=== PATIENT | male | born 1955 | race Caucasian/White ===

== ENCOUNTER 2017-10-20 19:31 | Inpatient (IN) | payer OTHER ==
--- NOTE | 2017-10-20 20:21 | ED ---
SOB HPI - General Chief Complaint: Shortness of Breath Stated Complaint: Shortness of Breath Time Seen by Provider: 10/20/17 20:07 Source: patient Mode of arrival: ambulatory Limitations: no limitations - History of Present Illness Initial Comments: This patient is a 62-year-old man who presents to be evaluated for worsening shortness of breath. The patient states that the symptoms came on starting proximally 4 days ago with a little bit of shortness of breath. He also has been having a little bit of cough with some yellowish sputum. He states that the breathing seems to be worse if he tries to sleep so over the past few nights he has been sleeping in a reclining chair more upright. Patient denies chest pain. He has not noticed swelling of the legs. No change in urination or bowel movements. MD Complaint: shortness of breath, cough Onset/Timin -: days(s) Consistency: constant Improves With: upright position Worsens With: lying flat Associated Symptoms: fever, cough Treatments Prior to Arrival: none - Related Data Home Medications Medication Instructions Recorded Confirmed ALPRAZolam [Xanax] 0.5 mg PO BID PRN 10/20/17 10/21/17 Carvedilol 25 mg PO BID 10/20/17 10/21/17 Citalopram Hydrobromide 20 mg PO DAILY 10/20/17 10/21/17 [Citalopram HBr] Enalapril [Vasotec] 10 mg PO DAILY 10/20/17 10/21/17 Furosemide [Lasix] 20 mg PO BID 10/20/17 10/21/17 Nitroglycerin Sl Tabs [Nitrostat] 0.4 mg SUBLINGUAL Q5M PRN 10/20/17 10/21/17 Simvastatin [Zocor] 10 mg PO HS 10/20/17 10/21/17 amLODIPine [Norvasc] 5 mg PO DAILY 10/20/17 10/21/17 glipiZIDE [Glucotrol] 5 mg PO AC-BRKFST 10/20/17 10/21/17 metFORMIN HCL [Glucophage] 500 mg PO DAILY 10/20/17 10/21/17 Allergies Allergy/AdvReac Type Severity Reaction Status Date / Time ciprofloxacin [From Cipro] Allergy Rash/Hives Verified 10/20/17 20:02 Review of Systems ROS Statement: Those systems with pertinent positive or pertinent negative responses have been documented in the HPI. ROS Other: All systems not noted in ROS Statement are negative. Constitutional: Reports: fever. Denies: chills, weakness Respiratory: Reports: cough, dyspnea. Denies: hemoptysis Cardiovascular: Reports: orthopnea. Denies: chest pain, palpitations, edema, syncope Gastrointestinal: Denies: abdominal pain, vomiting, diarrhea Genitourinary: Denies: dysuria, hematuria Musculoskeletal: Denies: back pain Skin: Denies: rash Neurological: Denies: headache, weakness, numbness Past Medical History Past Medical History: Coronary Artery Disease (CAD), Diabetes Mellitus, Hyperlipidemia, Hypertension, Myocardial Infarction ([place]) History of Any Multi-Drug Resistant Organisms: None Reported Past Surgical History: Heart Catheterization With Stent, Orthopedic Surgery Past Psychological History: Anxiety Smoking Status: Never smoker Past Alcohol Use History: Occasional Past Drug Use History: None Reported - Past Family History family Additional Family Medical History / Comment(s): Mother with history of diabetes mellitus and CAD, father with history of heart disease and diabetes General Exam Limitations: no limitations General appearance: alert, in no apparent distress Head exam: Present: atraumatic, normocephalic Eye exam: Present: normal appearance. Absent: scleral icterus, conjunctival injection ENT exam: Present: normal oropharynx Neck exam: Present: normal inspection Respiratory exam: Present: rales (Bilateral bases). Absent: respiratory distress, wheezes, rhonchi, stridor, accessory muscle use, decreased breath sounds, prolonged expiratory Cardiovascular Exam: Present: regular rate, normal rhythm, normal heart sounds. Absent: systolic murmur, diastolic murmur, rubs, gallop GI/Abdominal exam: Present: soft. Absent: distended, tenderness, guarding, rebound, rigid, mass Extremities exam: Present: normal inspection, normal capillary refill. Absent: pedal edema, calf tenderness Back exam: Present: normal inspection. Absent: CVA tenderness (R), CVA tenderness (L) Neurological exam: Present: alert Skin exam: Present: warm, dry, intact, normal color. Absent: rash Course Vital Signs 10/20/17 10/20/17 10/20/17 19:57 21:02 21:35 Temperature 102.7 F H Pulse Rate 96 60 Respiratory 26 H 16 Rate Blood Pressure 131/69 120/61 O2 Sat by Pulse 89 L 93 L 94 L Oximetry 10/20/17 10/20/17 10/20/17 21:39 23:10 23:27 Temperature 101.5 F H 99 F Pulse Rate 83 72 Respiratory 18 18 Rate Blood Pressure 113/83 113/81 O2 Sat by Pulse 94 L 93 L Oximetry Medical Decision Making - Lab Data Result diagrams: 10/21/17 04:19 10/21/17 04:19 Lab Results 10/20/17 10/20/17 10/20/17 Range/Units 20:06 20:06 20:06 WBC 7.9 (3.8-10.6) k/uL RBC 3.85 L (4.30-5.90) m/uL Hgb 12.3 L (13.0-17.5) gm/dL Hct 34.4 L (39.0-53.0) % MCV 89.5 (80.0-100.0) fL MCH 31.9 (25.0-35.0) pg MCHC 35.6 (31.0-37.0) g/dL RDW 14.4 (11.5-15.5) % Plt Count 174 (150-450) k/uL Neutrophils % 88 % Lymphocytes % 6 % Monocytes % 4 % Eosinophils % 2 % Basophils % 0 % Neutrophils # 6.9 (1.3-7.7) k/uL Lymphocytes # 0.5 L (1.0-4.8) k/uL Monocytes # 0.3 (0-1.0) k/uL Eosinophils # 0.1 (0-0.7) k/uL Basophils # 0.0 (0-0.2) k/uL PT (9.0-12.0) sec INR (<1.2) APTT (22.0-30.0) sec Sodium 136 L (137-145) mmol/L Potassium 4.5 (3.5-5.1) mmol/L Chloride 98 (98-107) mmol/L Carbon Dioxide 25 (22-30) mmol/L Anion Gap 13 mmol/L BUN 23 H (9-20) mg/dL Creatinine 1.00 (0.66-1.25) mg/dL Est GFR (CKD-EPI)AfAm >90 (>60 ml/min/1.73 sqM) Est GFR (CKD-EPI)NonAf 79 (>60 ml/min/1.73 sqM) Glucose 285 H (74-99) mg/dL Plasma Lactic Acid Dwain (0.7-2.0) mmol/L Calcium 9.2 (8.4-10.2) mg/dL Total Bilirubin 1.5 H (0.2-1.3) mg/dL AST 20 (17-59) U/L ALT 36 (21-72) U/L Alkaline Phosphatase 43 (38-126) U/L Total Creatine Kinase 32 L (55-170) U/L CK-MB (CK-2) 0.6 (0.0-2.4) ng/mL CK-MB (CK-2) Rel Index 1.9 Troponin I 0.037 H* (0.000-0.034) ng/mL NT-Pro-B Natriuret Pep pg/mL Total Protein 6.8 (6.3-8.2) g/dL Albumin 4.1 (3.5-5.0) g/dL Urine Color Urine Appearance (Clear) Urine pH (5.0-8.0) Ur Specific [place] (1.001-1.035) Urine Protein (Negative) Urine Glucose (UA) (Negative) Urine Ketones (Negative) Urine Blood (Negative) Urine Nitrite (Negative) Urine Bilirubin (Negative) Urine Urobilinogen (<2.0) mg/dL Ur Leukocyte Esterase (Negative) Urine RBC (0-5) /hpf Urine WBC (0-5) /hpf 10/20/17 10/20/17 10/20/17 Range/Units 20:06 20:06 20:06 WBC (3.8-10.6) k/uL RBC (4.30-5.90) m/uL Hgb (13.0-17.5) gm/dL Hct (39.0-53.0) % MCV (80.0-100.0) fL MCH (25.0-35.0) pg MCHC (31.0-37.0) g/dL RDW (11.5-15.5) % Plt Count (150-450) k/uL Neutrophils % % Lymphocytes % % Monocytes % % Eosinophils % % Basophils % % Neutrophils # (1.3-7.7) k/uL Lymphocytes # (1.0-4.8) k/uL Monocytes # (0-1.0) k/uL Eosinophils # (0-0.7) k/uL Basophils # (0-0.2) k/uL PT 9.8 (9.0-12.0) sec INR 1.0 (<1.2) APTT 23.7 (22.0-30.0) sec Sodium (137-145) mmol/L Potassium (3.5-5.1) mmol/L Chloride (98-107) mmol/L Carbon Dioxide (22-30) mmol/L Anion Gap mmol/L BUN (9-20) mg/dL Creatinine (0.66-1.25) mg/dL Est GFR (CKD-EPI)AfAm (>60 ml/min/1.73 sqM) Est GFR (CKD-EPI)NonAf (>60 ml/min/1.73 sqM) Glucose (74-99) mg/dL Plasma Lactic Acid Dwain 1.1 (0.7-2.0) mmol/L Calcium (8.4-10.2) mg/dL Total Bilirubin (0.2-1.3) mg/dL AST (17-59) U/L ALT (21-72) U/L Alkaline Phosphatase (38-126) U/L Total Creatine Kinase (55-170) U/L CK-MB (CK-2) (0.0-2.4) ng/mL CK-MB (CK-2) Rel Index Troponin I (0.000-0.034) ng/mL NT-Pro-B Natriuret Pep 4870 pg/mL Total Protein (6.3-8.2) g/dL Albumin (3.5-5.0) g/dL Urine Color Urine Appearance (Clear) Urine pH (5.0-8.0) Ur Specific [place] (1.001-1.035) Urine Protein (Negative) Urine Glucose (UA) (Negative) Urine Ketones (Negative) Urine Blood (Negative) Urine Nitrite (Negative) Urine Bilirubin (Negative) Urine Urobilinogen (<2.0) mg/dL Ur Leukocyte Esterase (Negative) Urine RBC (0-5) /hpf Urine WBC (0-5) /hpf //18 Range/Units 21:30 WBC (3.8-10.6) k/uL RBC (4.30-5.90) m/uL Hgb (13.0-17.5) gm/dL Hct (39.0-53.0) % MCV (80.0-100.0) fL MCH (25.0-35.0) pg MCHC (31.0-37.0) g/dL RDW (11.5-15.5) % Plt Count (150-450) k/uL Neutrophils % % Lymphocytes % % Monocytes % % Eosinophils % % Basophils % % Neutrophils # (1.3-7.7) k/uL Lymphocytes # (1.0-4.8) k/uL Monocytes # (0-1.0) k/uL Eosinophils # (0-0.7) k/uL Basophils # (0-0.2) k/uL PT (9.0-12.0) sec INR (<1.2) APTT (22.0-30.0) sec Sodium (137-145) mmol/L Potassium (3.5-5.1) mmol/L Chloride (98-107) mmol/L Carbon Dioxide (22-30) mmol/L Anion Gap mmol/L BUN (9-20) mg/dL Creatinine (0.66-1.25) mg/dL Est GFR (CKD-EPI)AfAm (>60 ml/min/1.73 sqM) Est GFR (CKD-EPI)NonAf (>60 ml/min/1.73 sqM) Glucose (74-99) mg/dL Plasma Lactic Acid Dwain (0.7-2.0) mmol/L Calcium (8.4-10.2) mg/dL Total Bilirubin (0.2-1.3) mg/dL AST (17-59) U/L ALT (21-72) U/L Alkaline Phosphatase (38-126) U/L Total Creatine Kinase (55-170) U/L CK-MB (CK-2) (0.0-2.4) ng/mL CK-MB (CK-2) Rel Index Troponin I (0.000-0.034) ng/mL NT-Pro-B Natriuret Pep pg/mL Total Protein (6.3-8.2) g/dL Albumin (3.5-5.0) g/dL Urine Color Yellow Urine Appearance Clear (Clear) Urine pH 5.5 (5.0-8.0) Ur Specific [place] 1.019 (1.001-1.035) Urine Protein 2+ H (Negative) Urine Glucose (UA) 4+ H (Negative) Urine Ketones 1+ H (Negative) Urine Blood Trace H (Negative) Urine Nitrite Negative (Negative) Urine Bilirubin Negative (Negative) Urine Urobilinogen <2.0 (<2.0) mg/dL Ur Leukocyte Esterase Negative (Negative) Urine RBC <1 (0-5) /hpf Urine WBC 1 (0-5) /hpf - EKG Data -: EKG Interpreted by Vt EKG shows normal: sinus rhythm (Sinus rhythm with occasional PVC), axis (Left axis deviation), intervals (The AL interval is 226 ms, prolonged consistent with a first-degree AV block. The QRS duration is 162 ms, consistent with intraventricular conduction block.), QRS complexes (Nonspecific intraventricular block), ST-T waves (Normal) Rate: normal (Rate approximate 98 bpm) Disposition Clinical Impression: Congestive heart failure, Chest pain, Dyspnea, Hyperglycemia, Elevated troponin Disposition: ADMITTED IP TO THIS HOSP Condition: Fair Is patient prescribed a controlled substance at d/c from ED?: No
[2017-10-20 20:28] LABS: Basophils % (A) 0 %; Eosinophils # (A) 0.1 k/uL (0-0.7); Eosinophils % (A) 2 %; HCT 34.4 % (39.0-53.0); HGB 12.3 gm/dL (13.0-17.5); Lymphocytes # (A) 0.5 k/uL (1.0-4.8); Lymphocytes % (A) 6 %; MCH 31.9 pg (25.0-35.0); MCHC 35.6 g/dL (31.0-37.0); MCV 89.5 fL (80.0-100.0); Mean Platelet Volume 8.2; Monocytes # (A) 0.3 k/uL (0-1.0); Monocytes % (A) 4 %; Neutrophils # (A) 6.9 k/uL (1.3-7.7); Neutrophils % (A) 88 %; Platelet Count 174 k/uL (150-450); RBC 3.85 m/uL (4.30-5.90); RDW 14.4 % (11.5-15.5); WBC 7.9 k/uL (3.8-10.6)
[2017-10-20 20:37] LABS: ALT 36 U/L (21-72); AST 20 U/L (17-59); Albumin 4.1 g/dL (3.5-5.0); Alkaline Phosphatase 43 U/L (38-126); Anion Gap 13 mmol/L; Blood Urea Nitrogen 23 mg/dL (9-20); Calcium 9.2 mg/dL (8.4-10.2); Carbon Dioxide 25 mmol/L (22-30); Chloride 98 mmol/L (98-107); Glucose 285 mg/dL (74-99); Partial Thromboplastin Time 23.7 sec (22.0-30.0); Potassium 4.5 mmol/L (3.5-5.1); Prothrombin Time 9.8 sec (9.0-12.0); Sodium 136 mmol/L (137-145); Total Bilirubin 1.5 mg/dL (0.2-1.3); Total Protein 6.8 g/dL (6.3-8.2)
--- NOTE | 2017-10-20 20:38 | XR ---
EXAMINATION TYPE: XR chest 1V portable DATE OF EXAM: 10/20/2017 COMPARISON: NONE HISTORY: Short of breath and fever TECHNIQUE: Single frontal view of the chest is obtained. FINDINGS: Heart appears enlarged. There is no heart failure. Lungs are clear of consolidation. There are chest leads. IMPRESSION: There is probably cardiomegaly. No acute lung disease.
[2017-10-20] MEDS ORDERED: ACETAMINOPHEN TAB 325 MG TAB PO STA (20:48)
[2017-10-20] MEDS ORDERED: IBUPROFEN 400 MG TAB PO STA (20:48)
[2017-10-20] MEDS ORDERED: AZITHROMYCIN 500 MG TAB PO STA (20:50)
[2017-10-20] MEDS ORDERED: cefTRIAXone IN SWFI 1,000 MG/10 ML SYRINGE IVP STA (20:54)
[2017-10-20 21:23] LABS: Creatine Kinase MB 0.6 ng/mL (0.0-2.4)
[2017-10-20 21:25] LABS: Troponin I 0.037 ng/mL (0.000-0.034)
[2017-10-20 21:46] LABS: Appearance,Urine Clear (Clear); Bilirubin,Urine Negative (Negative); Blood,Urine Trace (Negative); Color,Urine Yellow; Glucose,Urine (UA) 4+ (Negative); Ketones,Urine 1+ (Negative); Leukocyte Esterase,Urine Negative (Negative); Nitrite,Urine Negative (Negative); PH, Urine 5.5 (5.0-8.0); Protein,Urine 2+ (Negative); RBC,Urine <1 /hpf (0-5); Specific Gravity,Urine 1.019 (1.001-1.035); Urobilinogen,Urine <2.0 mg/dL (<2.0); WBC,Urine 1 /hpf (0-5)
[2017-10-21] MEDS ORDERED: NITROGLYCERIN SL TABS 0.4 MG TAB SUBLINGUAL PRN (01:52)
[2017-10-21] MEDS ORDERED: NALOXONE 0.4 MG/ML 1 ML VIAL IV PRN (01:58)
[2017-10-21] MEDS ORDERED: ALPRAZolam 0.25 MG TAB PO PRN (01:58)
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
[2017-10-21 04:39] LABS: Basophils % (A) 0 %; Eosinophils # (A) 0.1 k/uL (0-0.7); Eosinophils % (A) 3 %; HCT 34.2 % (39.0-53.0); HGB 11.7 gm/dL (13.0-17.5); Lymphocytes # (A) 0.8 k/uL (1.0-4.8); Lymphocytes % (A) 18 %; MCH 30.6 pg (25.0-35.0); MCHC 34.1 g/dL (31.0-37.0); MCV 89.8 fL (80.0-100.0); Mean Platelet Volume 7.8; Monocytes # (A) 0.2 k/uL (0-1.0); Monocytes % (A) 5 %; Neutrophils # (A) 3.1 k/uL (1.3-7.7); Neutrophils % (A) 73 %; Platelet Count 144 k/uL (150-450); RBC 3.81 m/uL (4.30-5.90); RDW 14.2 % (11.5-15.5); WBC 4.2 k/uL (3.8-10.6)
[2017-10-21 04:49] LABS: Albumin 3.6 g/dL (3.5-5.0); Calcium 8.6 mg/dL (8.4-10.2); Potassium 4.4 mmol/L (3.5-5.1); Total Bilirubin 0.9 mg/dL (0.2-1.3)
[2017-10-21 05:27] LABS: Troponin I 0.047 ng/mL (0.000-0.034)
[2017-10-21] MEDS: SODIUM CHLORIDE 0.9% 1,000 ML IV SCH (05:30)
[2017-10-21 06:08] LABS: Glucose,Whole Blood 371 mg/dL (75-99)
[2017-10-21] MEDS: CARVEDILOL 12.5 MG TAB PO SCH ×2 (06:16→17:05)
[2017-10-21] MEDS: INSULIN ASPART 100 UNIT/ML 1 ML 10 ML VIAL SQ SCH ×4 (06:16→22:25)
[2017-10-21] MEDS: HEPARIN SODIUM,PORCINE 5,000 UNIT/ML 1 ML VIAL SQ SCH ×2 (07:59→17:05)
[2017-10-21] MEDS: amLODIPine 5 MG TAB PO SCH (07:59)
[2017-10-21] MEDS: CITALOPRAM HYDROBROMIDE 20 MG TAB PO SCH ×2 (07:59→22:25)
[2017-10-21] MEDS: ASPIRIN 81 MG PO SCH (07:59)
[2017-10-21] MEDS: LISINOPRIL 20 MG TAB PO SCH (07:59)
[2017-10-21] MEDS ORDERED: FUROSEMIDE 40 MG TAB PO SCH (09:00)
[2017-10-21] MEDS ORDERED: FUROSEMIDE 10 MG/ML 4 ML VIAL IV SCH (09:00)
--- NOTE | 2017-10-21 09:50 | P.CRDCN ---
History of Present Illness History of present illness: Patient interviewed and examined. Patient was admitted with fever and a mild cough. He has known cardiac myopathy with chronic heart failure. I don't see any clinical evidence for exacerbation of CHF. This gentleman does not have acute exacerbation of CHF. Elevated BNP could be a chronic finding. Borderline troponins were noted. He has no chest discomfort or dizziness shortness of breath He states he is able to walk 1 flight of stairs comfortably He is being treated with IV antibiotics at this time Impression Known coronary artery disease status post stenting in the past Known cardiac myopathy patient has refused ICD implantation. This was well documented in Dr. Chester's note from the office when he saw him last in. At that time here stress test which did not show any evidence of ischemia Ischemic cardio myopathy, chronic congestive heart failure without acute exacerbation Suggest Maximize congestive heart failure medications and medications for atherosclerosis Lipid panel Patient still refuses and ICD implant He also wants to follow up with his physicians in [place] since he is leaving in a few weeks He follows with child psychometrist and internal medicine physician in [place] and comes to [place] every year Please see full dictation by nurse practitioner Past Medical History Past Medical History: Coronary Artery Disease (CAD), Diabetes Mellitus, Hyperlipidemia, Hypertension, Myocardial Infarction ([place]) Last Myocardial Infarction Date:: May 18, 2003 History of Any Multi-Drug Resistant Organisms: None Reported Past Surgical History: Heart Catheterization With Stent, Orthopedic Surgery Date of Last Stent Placement:: 2012 Past Psychological History: Anxiety Smoking Status: Never smoker Past Alcohol Use History: Occasional Past Drug Use History: None Reported - Past Family History family Additional Family Medical History / Comment(s): Mother with history of diabetes mellitus and CAD, father with history of heart disease and diabetes Medications and Allergies Home Medications Medication Instructions Recorded Confirmed Type ALPRAZolam [Xanax] 0.5 mg PO BID PRN 10/20/17 10/21/17 History Carvedilol 25 mg PO BID 10/20/17 10/21/17 History Citalopram Hydrobromide 20 mg PO DAILY 10/20/17 10/21/17 History [Citalopram HBr] Enalapril [Vasotec] 10 mg PO DAILY 10/20/17 10/21/17 History Furosemide [Lasix] 20 mg PO BID 10/20/17 10/21/17 History Nitroglycerin Sl Tabs [Nitrostat] 0.4 mg SUBLINGUAL Q5M PRN 10/20/17 10/21/17 History Simvastatin [Zocor] 10 mg PO HS 10/20/17 10/21/17 History amLODIPine [Norvasc] 5 mg PO DAILY 10/20/17 10/21/17 History glipiZIDE [Glucotrol] 5 mg PO AC-BRKFST 10/20/17 10/21/17 History metFORMIN HCL [Glucophage] 500 mg PO DAILY 10/20/17 10/21/17 History Allergies Allergy/AdvReac Type Severity Reaction Status Date / Time ciprofloxacin [From Cipro] Allergy Rash/Hives Verified 10/20/17 20:02 Physical Exam Vitals: Vital Signs Temp Pulse Pulse Resp BP BP Pulse Ox 10/21/17 07:40 68 16 10/21/17 07:39 97.7 F 68 16 111/60 96 10/21/17 04:00 66 20 116/66 92 L 10/21/17 00:00 71 16 10/20/17 23:54 98 F 71 16 116/63 94 L 10/20/17 23:27 72 18 113/81 93 L 10/20/17 23:10 99 F 83 18 113/83 94 L 10/20/17 21:39 101.5 F H 10/20/17 21:35 94 L 10/20/17 21:02 60 16 120/61 93 L 10/20/17 19:57 102.7 F H 96 26 H 131/69 89 L Intake and Output 10/20/17 10/21/17 10/21/17 22:59 06:59 14:59 Intake Total 480 240 Balance 480 240 Intake: Intake, IV Titration 80 Amount Sodium Chloride 0.9% 1, 80 000 ml @ 20 mls/hr IV . Q24H [facility] Rx#:[id number] Oral 400 240 Other: Weight 99.79 kg 101.3 kg Results 10/21/17 04:19 10/21/17 04:19 Cardiac Enzymes 10/20/17 10/20/17 10/21/17 Range/Units 20:06 20:06 04:19 AST 20 (17-59) U/L CK-MB (CK-2) 0.6 1.0 (0.0-2.4) ng/mL Troponin I 0.037 H* 0.047 H* (0.000-0.034) ng/mL 10/21/17 Range/Units 04:19 AST 17 (17-59) U/L CK-MB (CK-2) (0.0-2.4) ng/mL Troponin I (0.000-0.034) ng/mL Coagulation 10/20/17 Range/Units 20:06 PT 9.8 (9.0-12.0) sec APTT 23.7 (22.0-30.0) sec Lipids 10/21/17 Range/Units 04:19 Triglycerides 240 H (<150) mg/dL Cholesterol 110 (<200) mg/dL HDL Cholesterol 23 L (40-60) mg/dL CBC 10/20/17 10/21/17 Range/Units 20:06 04:19 WBC 7.9 4.2 (3.8-10.6) k/uL RBC 3.85 L 3.81 L (4.30-5.90) m/uL Hgb 12.3 L 11.7 L (13.0-17.5) gm/dL Hct 34.4 L 34.2 L (39.0-53.0) % Plt Count 174 144 L (150-450) k/uL Comprehensive Metabolic Panel 10/20/17 10/21/17 Range/Units 20:06 04:19 Sodium 136 L 136 L (137-145) mmol/L Potassium 4.5 4.4 (3.5-5.1) mmol/L Chloride 98 99 (98-107) mmol/L Carbon Dioxide 25 26 (22-30) mmol/L BUN 23 H 28 H (9-20) mg/dL Creatinine 1.00 1.30 H (0.66-1.25) mg/dL Glucose 285 H 345 H (74-99) mg/dL Calcium 9.2 8.6 (8.4-10.2) mg/dL AST 20 17 (17-59) U/L ALT 36 31 (21-72) U/L Alkaline Phosphatase 43 38 (38-126) U/L Total Protein 6.8 6.0 L (6.3-8.2) g/dL Albumin 4.1 3.6 (3.5-5.0) g/dL Current Medications Generic Name Dose Route Start Last Admin Trade Name Freq PRN Reason Stop Dose Admin Alprazolam 0.25 mg 10/21/17 01:58 Xanax PO Q6HR PRN Anxiety Amlodipine Besylate 5 mg 10/21/17 09:00 10/21/17 07:59 Norvasc PO 5 mg DAILY VAN Administration Aspirin 81 mg 10/21/17 09:00 10/21/17 07:59 Aspirin PO 81 mg DAILY VAN Administration Atorvastatin Calcium 40 mg 10/21/17 21:00 Lipitor PO HS VAN Carvedilol 25 mg 10/21/17 07:30 10/21/17 06:16 Coreg PO 25 mg AC-BID VAN Administration Citalopram Hydrobromide 20 mg 10/21/17 09:00 10/21/17 07:59 Celexa PO 20 mg BID VAN Administration Heparin Sodium (Porcine) 5,000 unit 10/21/17 08:00 10/21/17 07:59 Heparin SQ 5,000 unit Q8HR VAN Administration Sodium Chloride 1,000 mls @ 20 mls/hr 10/20/17 22:30 10/21/17 05:30 Saline 0.9% IV 20 mls/hr .Q24H VAN Administration Insulin Aspart 0 unit 10/21/17 07:30 10/21/17 06:16 Novolog SQ 7 unit ACHS VAN Administration Protocol Lisinopril 20 mg 10/21/17 09:00 10/21/17 07:59 Zestril PO 20 mg DAILY VAN Administration Naloxone HCl 0.2 mg 10/21/17 01:58 Narcan IV Q2M PRN Opioid Reversal Nitroglycerin 0.4 mg 10/21/17 01:52 Nitrostat SUBLINGUAL Q5M PRN Chest Pain Spironolactone 25 mg 10/21/17 09:30 Aldactone PO DAILY VAN Intake and Output 10/20/17 10/21/17 10/21/17 22:59 06:59 14:59 Intake Total 480 240 Balance 480 240 Intake: Intake, IV Titration 80 Amount Sodium Chloride 0.9% 1, 80 000 ml @ 20 mls/hr IV . Q24H [facility] Rx#:[id number] Oral 400 240 Other: Weight 99.79 kg 101.3 kg 10/21/17 04:19 10/21/17 04:19
--- NOTE | 2017-10-21 10:07 | P.CRDCN ---
History of Present Illness Consult date: 10/21/17 Requesting physician: Randolph Avendano Consult reason: congestive heart failure Chief complaint: Fever and chills, cough, mild shortness of breath History of present illness: This is a 62-year-old gentleman with known history of prior myocardial infarction and prior stent placements, ischemic cardiomyopathy, hypertension, diabetes, hyperlipidemia, he has seen Dr. 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 Patient has known severe cardiomyopathy and has been advised to have AICD in the past, however he has refused. He presents to the hospital on this occasion with symptoms of fever, cough, chills, and mild shortness of breath. His EKG on arrival here showed a normal sinus rhythm with first-degree AV block, left axis deviation, and bundle-branch block pattern. Chest x-ray did not reveal any acute lung disease. Temperature on arrival 102.7 , blood pressure 130/60, 89% on room air. White blood cell count on admission 7.9, 4.2 this morning. Hemoglobin 11.7, platelet count 144. Sodium 136, potassium 4.4, BUN 23 creatinine 1.0 on admission, 28 and 1.3 this morning. BNP level 4870, troponins 0.037, 0.047. Patient was initiated on IV Lasix in the emergency room, diuresed well from this. At the time of our examination this morning, patient denies any shortness of breath, no PND or orthopnea, does have a mild cough. Temperature 97.7 this morning, blood pressure 110/60, heart rate in the 60s. Past Medical History Past Medical History: Coronary Artery Disease (CAD), Diabetes Mellitus, Hyperlipidemia, Hypertension, Myocardial Infarction ([place]) Last Myocardial Infarction Date:: May 18, 2003 History of Any Multi-Drug Resistant Organisms: None Reported Past Surgical History: Heart Catheterization With Stent, Orthopedic Surgery Date of Last Stent Placement:: 2012 Past Psychological History: Anxiety Smoking Status: Never smoker Past Alcohol Use History: Occasional Past Drug Use History: None Reported - Past Family History family Additional Family Medical History / Comment(s): Mother with history of diabetes mellitus and CAD, father with history of heart disease and diabetes Medications and Allergies Home Medications Medication Instructions Recorded Confirmed Type ALPRAZolam [Xanax] 0.5 mg PO BID PRN 10/20/17 10/21/17 History Carvedilol 25 mg PO BID 10/20/17 10/21/17 History Citalopram Hydrobromide 20 mg PO DAILY 10/20/17 10/21/17 History [Citalopram HBr] Enalapril [Vasotec] 10 mg PO DAILY 10/20/17 10/21/17 History Furosemide [Lasix] 20 mg PO BID 10/20/17 10/21/17 History Nitroglycerin Sl Tabs [Nitrostat] 0.4 mg SUBLINGUAL Q5M PRN 10/20/17 10/21/17 History Simvastatin [Zocor] 10 mg PO HS 10/20/17 10/21/17 History amLODIPine [Norvasc] 5 mg PO DAILY 10/20/17 10/21/17 History glipiZIDE [Glucotrol] 5 mg PO AC-BRKFST 10/20/17 10/21/17 History metFORMIN HCL [Glucophage] 500 mg PO DAILY 10/20/17 10/21/17 History Allergies Allergy/AdvReac Type Severity Reaction Status Date / Time ciprofloxacin [From Cipro] Allergy Rash/Hives Verified 10/20/17 20:02 Physical Exam Vitals: Vital Signs Temp Pulse Pulse Resp BP BP Pulse Ox 10/21/17 07:40 68 16 10/21/17 07:39 97.7 F 68 16 111/60 96 10/21/17 04:00 66 20 116/66 92 L 10/21/17 00:00 71 16 10/20/17 23:54 98 F 71 16 116/63 94 L 10/20/17 23:27 72 18 113/81 93 L 10/20/17 23:10 99 F 83 18 113/83 94 L 10/20/17 21:39 101.5 F H 10/20/17 21:35 94 L 10/20/17 21:02 60 16 120/61 93 L 10/20/17 19:57 102.7 F H 96 26 H 131/69 89 L Intake and Output 10/20/17 10/21/17 10/21/17 22:59 06:59 14:59 Intake Total 480 240 Balance 480 240 Intake: Intake, IV Titration 80 Amount Sodium Chloride 0.9% 1, 80 000 ml @ 20 mls/hr IV . Q24H [facility] Rx#:[id number] Oral 400 240 Other: Weight 99.79 kg 101.3 kg PHYSICAL EXAMINATION: GENERAL: 62-year-old gentleman in no apparent distress at the time of my examination. HEENT: Head is atraumatic, normocephalic. Pupils equal, round. Sclera anicteric. Conjunctiva are clear. Mucous membranes of the mouth are moist. Neck is supple. There is no elevated jugular venous pressure.] bruit is heard. HEART EXAMINATION: Heart S1, S2 normal. No murmur or gallop heard. CHEST EXAMINATION: His reveal crackles to bilateral bases. ABDOMEN: Soft, nontender. Bowel sounds are heard. No organomegaly noted. EXTREMITIES: 2+ peripheral pulses with no evidence of peripheral edema and no calf tenderness noted. NEUROLOGIC patient is awake, alert and oriented -3. . Results 10/21/17 04:19 10/21/17 04:19 Cardiac Enzymes 10/20/17 10/20/17 10/21/17 Range/Units 20:06 20:06 04:19 AST 20 (17-59) U/L CK-MB (CK-2) 0.6 1.0 (0.0-2.4) ng/mL Troponin I 0.037 H* 0.047 H* (0.000-0.034) ng/mL 10/21/17 Range/Units 04:19 AST 17 (17-59) U/L CK-MB (CK-2) (0.0-2.4) ng/mL Troponin I (0.000-0.034) ng/mL Coagulation 10/20/17 Range/Units 20:06 PT 9.8 (9.0-12.0) sec APTT 23.7 (22.0-30.0) sec Lipids 10/21/17 Range/Units 04:19 Triglycerides 240 H (<150) mg/dL Cholesterol 110 (<200) mg/dL HDL Cholesterol 23 L (40-60) mg/dL CBC 10/20/17 10/21/17 Range/Units 20:06 04:19 WBC 7.9 4.2 (3.8-10.6) k/uL RBC 3.85 L 3.81 L (4.30-5.90) m/uL Hgb 12.3 L 11.7 L (13.0-17.5) gm/dL Hct 34.4 L 34.2 L (39.0-53.0) % Plt Count 174 144 L (150-450) k/uL Comprehensive Metabolic Panel 10/20/17 10/21/17 Range/Units 20:06 04:19 Sodium 136 L 136 L (137-145) mmol/L Potassium 4.5 4.4 (3.5-5.1) mmol/L Chloride 98 99 (98-107) mmol/L Carbon Dioxide 25 26 (22-30) mmol/L BUN 23 H 28 H (9-20) mg/dL Creatinine 1.00 1.30 H (0.66-1.25) mg/dL Glucose 285 H 345 H (74-99) mg/dL Calcium 9.2 8.6 (8.4-10.2) mg/dL AST 20 17 (17-59) U/L ALT 36 31 (21-72) U/L Alkaline Phosphatase 43 38 (38-126) U/L Total Protein 6.8 6.0 L (6.3-8.2) g/dL Albumin 4.1 3.6 (3.5-5.0) g/dL Current Medications Generic Name Dose Route Start Last Admin Trade Name Freq PRN Reason Stop Dose Admin Alprazolam 0.25 mg 10/21/17 01:58 Xanax PO Q6HR PRN Anxiety Amlodipine Besylate 5 mg 10/21/17 09:00 10/21/17 07:59 Norvasc PO 5 mg DAILY VAN Administration Aspirin 81 mg 10/21/17 09:00 10/21/17 07:59 Aspirin PO 81 mg DAILY VAN Administration Atorvastatin Calcium 40 mg 10/21/17 21:00 Lipitor PO HS VAN Carvedilol 25 mg 10/21/17 07:30 10/21/17 06:16 Coreg PO 25 mg AC-BID VAN Administration Citalopram Hydrobromide 20 mg 10/21/17 09:00 10/21/17 07:59 Celexa PO 20 mg BID VAN Administration Heparin Sodium (Porcine) 5,000 unit 10/21/17 08:00 10/21/17 07:59 Heparin SQ 5,000 unit Q8HR VAN Administration Sodium Chloride 1,000 mls @ 20 mls/hr 10/20/17 22:30 10/21/17 05:30 Saline 0.9% IV 20 mls/hr .Q24H VAN Administration Insulin Aspart 0 unit 10/21/17 07:30 10/21/17 06:16 Novolog SQ 7 unit ACHS VAN Administration Protocol Lisinopril 20 mg 10/21/17 09:00 10/21/17 07:59 Zestril PO 20 mg DAILY VAN Administration Naloxone HCl 0.2 mg 10/21/17 01:58 Narcan IV Q2M PRN Opioid Reversal Nitroglycerin 0.4 mg 10/21/17 01:52 Nitrostat SUBLINGUAL Q5M PRN Chest Pain Spironolactone 25 mg 10/21/17 09:30 Aldactone PO DAILY VAN Intake and Output 10/20/17 10/21/17 10/21/17 22:59 06:59 14:59 Intake Total 480 240 Balance 480 240 Intake: Intake, IV Titration 80 Amount Sodium Chloride 0.9% 1, 80 000 ml @ 20 mls/hr IV . Q24H [facility] Rx#:[id number] Oral 400 240 Other: Weight 99.79 kg 101.3 kg 10/21/17 04:19 10/21/17 04:19 EKG Interpretations (text) EKG shows a normal sinus rhythm with first-degree AV block, left axis deviation Assessment and Plan Plan: Assessment and plan #1 fever and chills with associated cough, temperature 102 on arrival, sepsis workup in progress. #2 mild shortness of breath, no evidence of congestive heart failure. Chest x- ray does not reveal congestive heart failure. BNP level is mildly elevated which may be normal for this patient with known severe ischemic cardiomyopathy #3 history of myocardial infarction with prior stent placements #4 diabetes # 5 hypertension #6 hyperlipidemia #7 ischemic cardiomyopathy with documented ejection fraction of less than 20%. Patient has been advised in the past to undergo implantation of AICD but has refused. A lengthy discussion was made again this morning regarding the importance of implant of AICD for prevention of sudden cardiac , patient states he will think about it and consider it when he moves back out of state. He does not wish to have the procedures done at this time. #8 chronic systolic congestive heart failure without acute exacerbation Plan We will maximize congestive heart failure medications and medications for atherosclerosis. Add Aldactone to the patient's medication regime. Discontinue IV Lasix. Obtain lipid panel. Patient still refuses at this time to have AICD implant. He will follow-up with his physicians in [place] on discharge from here. DNP note has been reviewed, I agree with a documented findings and plan of care. Patient was seen and examined.
--- NOTE | 2017-10-21 10:40 | ECHOF ---
Referral Reason:CHF MEASUREMENTS -------- HEIGHT: 180.3 cm WEIGHT: 99.8 kg BP: 116/66 RVIDd: 3.8 cm (< 3.3) IVSd: 1.0 cm (0.6 - 1.1) LVIDd: 5.5 cm (3.9 - 5.3) LVPWd: 1.1 cm (0.6 - 1.1) IVSs: 1.7 cm LVIDs: 4.9 cm LVPWs: 1.3 cm LAESV Index (A-L): 49.22 ml/m Ao Diam: 3.3 cm (2.0 - 3.7) AV Cusp: 2.0 cm (1.5 - 2.6) LA Diam: 4.5 cm (2.7 - 3.8) MV EXCURSION: 13.666 mm (> 18.000) MV EF SLOPE: 151 mm/s (70 - 150) EPSS: 1.8 cm MV E Willard: 1.06 m/s MV DecT: 215 ms MV A Willard: 0.26 m/s MV E/A Ratio: 4.05 RAP: 5.00 mmHg RVSP: 17.16 mmHg FINDINGS -------- Sinus rhythm. This was a technically good study. The left ventricular size is normal. Left ventricular wall thickness is normal. There is severe g lobal hypokinesis of LV . Overall left ventricular systolic function is severely impaired with, an EF between 20 - 25 %. The right ventricle is normal in size and function. LA is severely dilated >40 ml/m2 The right atrium is normal in size. Aortic valve is trileaflet and is mildly thickened. The mitral valve leaflets are mildly thickened. Mild mitral annular calcification present. Modera te mitral regurgitation is present. Mild tricuspid regurgitation present. The right ventricular systolic pressure, as measured by Doppl er, is 17.16mmHg. Pulmonic valve appears structurally normal. The aortic root size is normal. Normal inferior vena cava with normal inspiratory collapse consistent with estimated right atrial pre ssure of 5 mmHg. The pericardium is normal. CONCLUSIONS -------- 1. Sinus rhythm. 2. This was a technically good study. 3. The left ventricular size is normal. 4. Left ventricular wall thickness is normal. 5. There is severe global hypokinesis of LV . 6. Overall left ventricular systolic function is severely impaired with, an EF between 20 - 25 %. 7. The right ventricle is normal in size and function. 8. LA is severely dilated >40 ml/m2 9. The right atrium is normal in size. 10. Aortic valve is trileaflet and is mildly thickened. 11. The mitral valve leaflets are mildly thickened. 12. Mild mitral annular calcification present. 13. Moderate mitral regurgitation is present. 14. Mild tricuspid regurgitation present. 15. The right ventricular systolic pressure, as measured by Doppler, is 17.16mmHg. 16. Pulmonic valve appears structurally normal. 17. The aortic root size is normal. 18. Normal inferior vena cava with normal inspiratory collapse consistent with estimated right atrial pressure of 5 mmHg. 19. The pericardium is normal. ASSEMBLER BILLIARD TABLE: Sandra Moss RDCS
[2017-10-21 11:07] LABS: Glucose,Whole Blood 404 mg/dL (75-99)
[2017-10-21 11:31] LABS: Creatine Kinase MB 1.4 ng/mL (0.0-2.4); Troponin I 0.033 ng/mL (0.000-0.034)
[2017-10-21] MEDS: SPIRONOLACTONE 25 MG TAB PO SCH (11:36)
[2017-10-21 11:39] VITALS: BMI 32.0
--- NOTE | 2017-10-21 12:05 | P.PN ---
Subjective Progress Note Date: 10/21/17 Principal diagnosis: Patient feels okay shortness of breath improved No chest pain no vomiting fever resolved Constitutional: No acute distress, conversant, pleasant Eyes: Anicteric sclerae, moist conjunctiva, no lid-lag PERRLA ENMT: NC/AT Oropharynx clear, no erythema, exudates Neck: Supple, FROM, no masses, or JVD No carotid bruits No thyromegaly Lungs: Crackly bilaterally Cardiovascular: Heart regular in rate and rhythm, No murmurs, gallops, or rubs No peripheral edema Abdominal: Soft Nontender, no guarding, rebound or rigidity Abdomen moving with respiration Normoactive bowel sounds No hepatomegaly, No splenomegaly No palpable mass No abdominal wall hernia noted Skin: Normal temperature, tone, texture, turgor No induration No subcutaneous nodules No rash, lesions No ulcers Extremities: No digital cyanosis No clubbing Pedal pulses intact and symmetrical Radial pulses intact and symmetrical Normal gait and station No calf tenderness Psychiatric:Alert and oriented to person, place and time Appropriate affect Intact judgement Neuro: Generalized weakness Laboratory Last Values WBC 4.2 k/uL (3.8-10.6) 10/21/17 04:19 RBC 3.81 m/uL (4.30-5.90) L 10/21/17 04:19 Hgb 11.7 gm/dL (13.0-17.5) L 10/21/17 04:19 Hct 34.2 % (39.0-53.0) L 10/21/17 04:19 MCV 89.8 fL (80.0-100.0) 10/21/17 04:19 MCH 30.6 pg (25.0-35.0) 10/21/17 04:19 MCHC 34.1 g/dL (31.0-37.0) 10/21/17 04:19 RDW 14.2 % (11.5-15.5) 10/21/17 04:19 Plt Count 144 k/uL (150-450) L 10/21/17 04:19 Neutrophils % 73 % 10/21/17 04:19 Lymphocytes % 18 % 10/21/17 04:19 Monocytes % 5 % 10/21/17 04:19 Eosinophils % 3 % 10/21/17 04:19 Basophils % 0 % 10/21/17 04:19 Neutrophils # 3.1 k/uL (1.3-7.7) 10/21/17 04:19 Lymphocytes # 0.8 k/uL (1.0-4.8) L 10/21/17 04:19 Monocytes # 0.2 k/uL (0-1.0) 10/21/17 04:19 Eosinophils # 0.1 k/uL (0-0.7) 10/21/17 04:19 Basophils # 0.0 k/uL (0-0.2) 10/21/17 04:19 PT 9.8 sec (9.0-12.0) 10/20/17 20:06 INR 1.0 (<1.2) 10/20/17 20:06 APTT 23.7 sec (22.0-30.0) 10/20/17 20:06 Sodium 136 mmol/L (137-145) L 10/21/17 04:19 Potassium 4.4 mmol/L (3.5-5.1) 10/21/17 04:19 Chloride 99 mmol/L (98-107) 10/21/17 04:19 Carbon Dioxide 26 mmol/L (22-30) 10/21/17 04:19 Anion Gap 11 mmol/L 10/21/17 04:19 BUN 28 mg/dL (9-20) H 10/21/17 04:19 Creatinine 1.30 mg/dL (0.66-1.25) H 10/21/17 04:19 Est GFR (CKD-EPI)AfAm 67 (>60 ml/min/1.73 sqM) 10/21/17 04:19 Est GFR (CKD-EPI)NonAf 58 (>60 ml/min/1.73 sqM) 10/21/17 04:19 Glucose 345 mg/dL (74-99) H 10/21/17 04:19 POC Glucose (mg/dL) 404 mg/dL (75-99) H 10/21/17 11:05 POC Glu [employer] Operations Inspector ID Monserrat Peres 10/21/17 11:05 Plasma Lactic Acid Dwain 1.1 mmol/L (0.7-2.0) 10/20/17 20:06 Calcium 8.6 mg/dL (8.4-10.2) 10/21/17 04:19 Total Bilirubin 0.9 mg/dL (0.2-1.3) 10/21/17 04:19 AST 17 U/L (17-59) 10/21/17 04:19 ALT 31 U/L (21-72) 10/21/17 04:19 Alkaline Phosphatase 38 U/L (38-126) 10/21/17 04:19 Total Creatine Kinase 32 U/L (55-170) L 10/20/17 20:06 CK-MB (CK-2) 1.4 ng/mL (0.0-2.4) 10/21/17 10:36 CK-MB (CK-2) Rel Index 1.9 10/20/17 20:06 Troponin I 0.033 ng/mL (0.000-0.034) 10/21/17 10:36 NT-Pro-B Natriuret Pep 4870 pg/mL 10/20/17 20:06 Total Protein 6.0 g/dL (6.3-8.2) L 10/21/17 04:19 Albumin 3.6 g/dL (3.5-5.0) 10/21/17 04:19 Triglycerides 240 mg/dL (<150) H 10/21/17 04:19 Cholesterol 110 mg/dL (<200) 10/21/17 04:19 LDL Cholesterol, Calc 39 mg/dL (0-99) 10/21/17 04:19 HDL Cholesterol 23 mg/dL (40-60) L 10/21/17 04:19 Urine Color Yellow 10/20/17 21:30 Urine Appearance Clear (Clear) 10/20/17 21:30 Urine pH 5.5 (5.0-8.0) 10/20/17 21:30 Ur Specific [place] 1.019 (1.001-1.035) 10/20/17 21:30 Urine Protein 2+ (Negative) H 10/20/17 21:30 Urine Glucose (UA) 4+ (Negative) H 10/20/17 21:30 Urine Ketones 1+ (Negative) H 10/20/17 21:30 Urine Blood Trace (Negative) H 10/20/17 21:30 Urine Nitrite Negative (Negative) 10/20/17 21:30 Urine Bilirubin Negative (Negative) 10/20/17 21:30 Urine Urobilinogen <2.0 mg/dL (<2.0) 10/20/17 21:30 Ur Leukocyte Esterase Negative (Negative) 10/20/17 21:30 Urine RBC <1 /hpf (0-5) 10/20/17 21:30 Urine WBC 1 /hpf (0-5) 10/20/17 21:30 Vital Signs 10/20/17 10/20/17 10/20/17 19:57 21:02 21:35 Temperature 102.7 F H Pulse Rate 96 60 Pulse Rate [ Pulse Oximetery ] Respiratory 26 H 16 Rate Blood Pressure 131/69 120/61 Blood Pressure [Right Arm] O2 Sat by Pulse 89 L 93 L 94 L Oximetry 10/20/17 10/20/17 10/20/17 21:39 23:10 23:27 Temperature 101.5 F H 99 F Pulse Rate 83 72 Pulse Rate [ Pulse Oximetery ] Respiratory 18 18 Rate Blood Pressure 113/83 113/81 Blood Pressure [Right Arm] O2 Sat by Pulse 94 L 93 L Oximetry 10/20/17 10/21/17 10/21/17 23:54 00:00 04:00 Temperature 98 F Pulse Rate Pulse Rate [ 71 71 66 Pulse Oximetery ] Respiratory 16 16 20 Rate Blood Pressure Blood Pressure 116/63 116/66 [Right Arm] O2 Sat by Pulse 94 L 92 L Oximetry 10/21/17 10/21/17 10/21/17 07:39 07:40 11:51 Temperature 97.7 F 97.8 F Pulse Rate Pulse Rate [ 68 68 75 Pulse Oximetery ] Respiratory 16 16 18 Rate Blood Pressure Blood Pressure 111/60 128/63 [Right Arm] O2 Sat by Pulse 96 95 Oximetry 10/21/17 11:52 Temperature Pulse Rate Pulse Rate [ 75 Pulse Oximetery ] Respiratory 18 Rate Blood Pressure Blood Pressure [Right Arm] O2 Sat by Pulse Oximetry #Acute hypoxic respiratory failure secondary to acute CHF exacerbation #Acute on chronic CHF exacerbation, patient with history of systolic ischemic cardiomyopathy #History of CAD status post stents Continue IV Lasix currently overall the condition is improving Cardiology following #Fever resoved Rule out underlying infectious process Follow-up blood cultures No evidence of infections at this time monitor #Hypertension currently controlled Continue home medications amlodipine and Coreg and ROSA MARIA inhibitor #Diabetes mellitus type 2 Insulin sliding scale Monitor #DVT prophylaxis Heparin subcu 3 times a day #Diet Heart healthy diet diabetic diet Please refer to the H&P dictated on the same day of this note Objective - Vital Signs Vital signs: Vital Signs Temp 97.8 F 10/21/17 11:51 Pulse 75 10/21/17 11:52 Resp 18 10/21/17 11:52 BP 128/63 10/21/17 11:51 Pulse Ox 95 10/21/17 11:51 Intake & Output 10/20/17 10/21/17 10/21/17 18:59 06:59 18:59 Intake Total 480 240 Output Total 400 Balance 480 -160 Weight 101.3 kg 101.3 kg Intake: Intake, IV Titration 80 Amount Sodium Chloride 0.9% 1, 80 000 ml @ 20 mls/hr IV . Q24H [facility] Rx#:[id number] Oral 400 240 Output: Urine 400 - Labs CBC & Chem 7: 10/21/17 04:19 10/21/17 04:19 Labs: Abnormal Lab Results - Last 24 Hours (Table) 10/20/17 10/20/17 10/20/17 Range/Units 20:06 20:06 20:06 RBC 3.85 L (4.30-5.90) m/uL Hgb 12.3 L (13.0-17.5) gm/dL Hct 34.4 L (39.0-53.0) % Plt Count (150-450) k/uL Lymphocytes # 0.5 L (1.0-4.8) k/uL Sodium 136 L (137-145) mmol/L BUN 23 H (9-20) mg/dL Creatinine (0.66-1.25) mg/dL Glucose 285 H (74-99) mg/dL POC Glucose (mg/dL) (75-99) mg/dL Total Bilirubin 1.5 H (0.2-1.3) mg/dL Total Creatine Kinase 32 L (55-170) U/L Troponin I 0.037 H* (0.000-0.034) ng/mL Total Protein (6.3-8.2) g/dL Triglycerides (<150) mg/dL HDL Cholesterol (40-60) mg/dL Urine Protein (Negative) Urine Glucose (UA) (Negative) Urine Ketones (Negative) Urine Blood (Negative) 10/20/17 10/21/17 10/21/17 Range/Units 21:30 04:19 04:19 RBC 3.81 L (4.30-5.90) m/uL Hgb 11.7 L (13.0-17.5) gm/dL Hct 34.2 L (39.0-53.0) % Plt Count 144 L (150-450) k/uL Lymphocytes # 0.8 L (1.0-4.8) k/uL Sodium (137-145) mmol/L BUN (9-20) mg/dL Creatinine (0.66-1.25) mg/dL Glucose (74-99) mg/dL POC Glucose (mg/dL) (75-99) mg/dL Total Bilirubin (0.2-1.3) mg/dL Total Creatine Kinase (55-170) U/L Troponin I 0.047 H* (0.000-0.034) ng/mL Total Protein (6.3-8.2) g/dL Triglycerides (<150) mg/dL HDL Cholesterol (40-60) mg/dL Urine Protein 2+ H (Negative) Urine Glucose (UA) 4+ H (Negative) Urine Ketones 1+ H (Negative) Urine Blood Trace H (Negative) 10/21/1718 10/21/17 Range/Units 04:19 06:06 11:05 RBC (4.30-5.90) m/uL Hgb (13.0-17.5) gm/dL Hct (39.0-53.0) % Plt Count (150-450) k/uL Lymphocytes # (1.0-4.8) k/uL Sodium 136 L (137-145) mmol/L BUN 28 H (9-20) mg/dL Creatinine 1.30 H (0.66-1.25) mg/dL Glucose 345 H (74-99) mg/dL POC Glucose (mg/dL) 371 H 404 H (75-99) mg/dL Total Bilirubin (0.2-1.3) mg/dL Total Creatine Kinase (55-170) U/L Troponin I (0.000-0.034) ng/mL Total Protein 6.0 L (6.3-8.2) g/dL Triglycerides 240 H (<150) mg/dL HDL Cholesterol 23 L (40-60) mg/dL Urine Protein (Negative) Urine Glucose (UA) (Negative) Urine Ketones (Negative) Urine Blood (Negative)
[2017-10-21 13:08] LABS: Hemoglobin A1C 10.7 % (4.0-6.0)
[2017-10-21] MEDS: INSULIN NPH 300 UNIT/3 ML VIAL SQ SCH ×2 (14:17→22:26)
[2017-10-21 16:40] LABS: Glucose,Whole Blood 416 mg/dL (75-99)
[2017-10-21] MEDS: cefTRIAXone IN SWFI 1,000 MG/10 ML SYRINGE IVP SCH (17:05)
[2017-10-21 20:48] LABS: Glucose,Whole Blood 291 mg/dL (75-99)
[2017-10-21] MEDS: ATORVASTATIN 40 MG TAB PO SCH (22:25)
[2017-10-22] MEDS: ACETAMINOPHEN TAB 325 MG TAB PO PRN (00:23)
[2017-10-22] MEDS: DOXYCYCLINE MONOHYDRATE 100 MG CAPSULE PO SCH ×3 (00:23→21:45)
[2017-10-22] MEDS: HEPARIN SODIUM,PORCINE 5,000 UNIT/ML 1 ML VIAL SQ SCH ×4 (00:24→23:51)
[2017-10-22] MEDS: SODIUM CHLORIDE 0.9% 1,000 ML IV SCH (00:24)
[2017-10-22 06:15] LABS: Magnesium 2.2 mg/dL (1.6-2.3)
[2017-10-22 06:51] LABS: Glucose,Whole Blood 173 mg/dL (75-99)
[2017-10-22] MEDS: INSULIN ASPART 100 UNIT/ML 1 ML 10 ML VIAL SQ SCH ×4 (07:01→21:45)
[2017-10-22] MEDS: CARVEDILOL 12.5 MG TAB PO SCH ×2 (07:01→18:39)
[2017-10-22 08:27] LABS: HCT 35.5 % (39.0-53.0); HGB 12.3 gm/dL (13.0-17.5); MCH 31.5 pg (25.0-35.0); MCHC 34.6 g/dL (31.0-37.0); MCV 90.9 fL (80.0-100.0); Mean Platelet Volume 7.9; Platelet Count 215 k/uL (150-450); Poikilocytosis Slight; RDW 14.2 % (11.5-15.5); WBC 4.4 k/uL (3.8-10.6)
[2017-10-22 08:37] LABS: Calcium 8.7 mg/dL (8.4-10.2); Potassium 4.6 mmol/L (3.5-5.1)
--- NOTE | 2017-10-22 09:51 | XR ---
EXAMINATION TYPE: XR chest 2V DATE OF EXAM: 10/22/2017 COMPARISON: 10/20/2017 TECHNIQUE: PA and lateral views submitted. HISTORY: Shortness of breath FINDINGS: Cardiomegaly with left lower lobe infiltrate and small bilateral effusions. Central interstitial quincy marty noted. No pneumothorax. Hypertrophic change of the spine. Arthropathy of the shoulders. IMPRESSION: 1. Cardiomegaly, COPD with bilateral infiltrate and small effusion. Correlate for CHF. Underlying pne umonia not excluded.
[2017-10-22 10:21] LABS: T4, Free (Free Thyroxine) 1.15 ng/dL (0.78-2.19)
--- NOTE | 2017-10-22 10:31 | P.PN ---
Subjective Progress Note Date: 10/22/17 Principal diagnosis: Shortness of breath Patient is a 62-year-old male to past medical history of coronary artery disease, diabetes, congestive heart failure, dyslipidemia, and hypertension who presented with complaints of worsening shortness of breath. In the ER he underwent extensive evaluation. On arrival he was found have a fever of 102.7 with a respiratory rate of 26 and oxygen saturation of 89% on room air. Initial laboratory analysis showed an elevated BUN of 23. He did have a slightly elevated troponin at 0.037. Initial chest x-ray showed no acute process. He was admitted with probable acute exacerbation of CHF with acute hypoxic respiratory failure and fever. He was started on IV diuretics, echocardiogram was ordered, and cardiology consultation was placed. Cardiology felt that he was compensated and did not have acute exacerbation of CHF and he was therefore transitioned to oral Lasix. Echocardiogram showed an ejection fraction of 20-25% with severely dilated left atrium. He continued to spike fever is mostly at night. Blood cultures were obtained which came back with gram-negative bacteremia and he was started on Rocephin. Only one culture was obtained. He had a follow-up chest x-ray done on 10/22 which showed probable infiltrate. Urinalysis was rechecked did not show any UTI. He has been working on building a petting through with poultry and other games follow as well as exotic animal. He has been working closely with their excrement. Patient seen and examined at bedside. He is feeling much improved. Shortness of breath is better. No chest pain, no nausea, no vomiting. Still feeling sweaty and febrile intermittently. Objective - Vital Signs Vital signs: Vital Signs Temp 97.3 F L 10/22/17 04:00 Pulse 68 10/22/17 04:00 Resp 20 10/22/17 04:00 BP 145/74 10/22/17 04:00 Pulse Ox 97 10/22/17 04:00 Intake & Output 10/21/17 10/22/17 10/22/17 18:59 06:59 18:59 Intake Total 702 240 Output Total 1200 901 Balance -498 -901 240 Weight 101.3 kg 101.7 kg Intake: Oral 702 240 Output: Urine 1200 901 Other: Voiding Method Toilet Urinal - Exam General: non toxic, no distress, appears at stated age, obese Derm: warm, dry Head: atraumatic, normocephalic, symmetric Eyes: EOMI, no lid lag, anicteric sclera Mouth: no lip lesion, mucus membranes moist Cardiovascular: S1S2 reg, no murmur, positive posterior tibial pulse bilateral, Lungs: Worse breath sounds bilateral, no rhonchi, no rales , no accessory muscle use Abdominal: soft, nontender to palpation, no guarding, no appreciable organomegaly Ext: no gross muscle atrophy, no edema, no contractures Neuro: CN II-XI grossly intact, no focal neuro deficits Psych: Alert, oriented, appropriate affect - Labs CBC & Chem 7: 10/22/17 07:57 10/22/17 07:57 Labs: Abnormal Lab Results - Last 24 Hours (Table) 10/21/17 10/21/17 10/21/17 Range/Units 04:19 11:05 16:19 RBC (4.30-5.90) m/uL Hgb (13.0-17.5) gm/dL Hct (39.0-53.0) % BUN (9-20) mg/dL Glucose (74-99) mg/dL POC Glucose (mg/dL) 404 H 416 H (75-99) mg/dL Hemoglobin A1c 10.7 H (4.0-6.0) % TSH (0.465-4.680) mIU/L 10/21/17 10/22/17 10/22/17 Range/Units 20:37 05:22 06:49 RBC (4.30-5.90) m/uL Hgb (13.0-17.5) gm/dL Hct (39.0-53.0) % BUN (9-20) mg/dL Glucose (74-99) mg/dL POC Glucose (mg/dL) 291 H 173 H (75-99) mg/dL Hemoglobin A1c (4.0-6.0) % TSH 5.630 H (0.465-4.680) mIU/L 10/22/17 10/22/17 Range/Units 07:57 07:57 RBC 3.90 L (4.30-5.90) m/uL Hgb 12.3 L (13.0-17.5) gm/dL Hct 35.5 L (39.0-53.0) % BUN 31 H (9-20) mg/dL Glucose 254 H (74-99) mg/dL POC Glucose (mg/dL) (75-99) mg/dL Hemoglobin A1c (4.0-6.0) % TSH 5.870 H (0.465-4.680) mIU/L Microbiology - Last 24 Hours (Table) 10/20/17 20:06 Blood Culture Gram Stain - Preliminary Blood Blood Culture - Preliminary Gram Neg Bacilli 10/20/17 20:06 Blood Culture - Final Blood Assessment and Plan Assessment: Gram-negative bacteremia, probable pneumonia ? C. Psittaci -Continue with Rocephin and doxycycline -Repeat chest x-ray in a.m. -ID consultation -Repeat blood cultures as only one obtaining could be contaminant, although less likely with gram-negative -Check urinalysis, lab reviewed and is not UTI Acute hypoxic respiratory failure -Treatment as above Chronic congestive heart failure without exacerbation, ejection fraction 20-25% -Continue with Coreg, Lasix, lisinopril, statin -Cardiology recommendations appreciated Diabetes mellitus type 2 with suboptimal control -A1c 10.7 -Continue with sliding scale and NPH increased at 15 twice a day, patient states he was on 30 units twice a day at home Coronary artery disease -Aspirin, statin, beta tonya Hypertension, controlled -Continue with beta tonya, ROSA MARIA inhibitor, diuretics Transfer to general medical floor DVT prophylaxis: Heparin Discussed with: Patient, cardiology Anticipated discharge: 24-[address]: home A total of 40 minutes was spent on the care of this complex patient more than 50 % of the time was spent in counseling and care coordination.
[2017-10-22] MEDS: cefTRIAXone IN SWFI 1,000 MG/10 ML SYRINGE IVP SCH (10:47)
[2017-10-22] MEDS: ASPIRIN 81 MG PO SCH (10:47)
[2017-10-22] MEDS: CITALOPRAM HYDROBROMIDE 20 MG TAB PO SCH ×2 (10:48→21:45)
[2017-10-22 11:17] LABS: Glucose,Whole Blood 290 mg/dL (75-99)
--- NOTE | 2017-10-22 12:50 | P.PN ---
Subjective Progress Note Date: 10/22/17 This is a 62-year-old gentleman with known history of prior myocardial infarction and prior stent placements, ischemic cardiomyopathy, hypertension, diabetes, hyperlipidemia, he has seen Dr. Chester in the office, however travels frequently and also has a occasional caregiver and primary care doctor out of state. Patient has known severe cardiomyopathy and has been advised to have AICD in the past, however he has refused. He presents to the hospital on this occasion with symptoms of fever, cough, chills, and mild shortness of breath. His EKG on arrival here showed a normal sinus rhythm with first-degree AV block, left axis deviation, and bundle-branch block pattern. Chest x-ray did not reveal any acute lung disease. Temperature on arrival 102.7 , blood pressure 130/60, 89% on room air. White blood cell count on admission 7.9, 4.2 this morning. Hemoglobin 11.7, platelet count 144. Sodium 136, potassium 4.4, BUN 23 creatinine 1.0 on admission, 28 and 1.3 this morning. BNP level 4870, troponins 0.037, 0.047. Patient was initiated on IV Lasix in the emergency room, diuresed well from this. At the time of our examination this morning, patient denies any shortness of breath, no PND or orthopnea, does have a mild cough. Temperature 97.7 this morning, blood pressure 110/60, heart rate in the 60s. 10/22/2017 Patient continues to run temperatures of 102, 101, blood cultures positive for gram-negative bacilli. Blood pressure 144/74 with a heart rate of 68, 97% on 5 L of oxygen. Echocardiogram with Doppler study was performed which revealed an ejection fraction of 20-25%, moderate mitral regurg. From cardiology's perspective, we will maximize the patient's medication. Objective - Vital Signs Vital signs: Vital Signs Temp 98.0 F 10/22/17 12:00 Pulse 66 10/22/17 12:00 Resp 20 10/22/17 12:00 BP 121/75 10/22/17 12:00 Pulse Ox 99 10/22/17 12:00 Intake & Output 10/21/17 10/22/17 10/22/17 18:59 06:59 18:59 Intake Total 702 240 Output Total 1200 901 300 Balance -498 -901 -60 Weight 101.3 kg 101.7 kg Intake: Oral 702 240 Output: Urine 1200 901 300 Other: Voiding Method Toilet Urinal - Exam PHYSICAL EXAMINATION: GENERAL: 62-year-old gentleman in no apparent distress at the time of my examination. HEENT: Head is atraumatic, normocephalic. Pupils equal, round. Sclera anicteric. Conjunctiva are clear. Mucous membranes of the mouth are moist. Neck is supple. There is no elevated jugular venous pressure.] bruit is heard. HEART EXAMINATION: Heart S1, S2 normal. No murmur or gallop heard. CHEST EXAMINATION: lungs reveal crackles to bilateral bases. ABDOMEN: Soft, nontender. Bowel sounds are heard. No organomegaly noted. EXTREMITIES: 2+ peripheral pulses with no evidence of peripheral edema and no calf tenderness noted. NEUROLOGIC patient is awake, alert and oriented -3. - Labs CBC & Chem 7: 10/22/17 07:57 10/22/17 07:57 Labs: Abnormal Lab Results - Last 24 Hours (Table) 10/21/17 10/21/17 10/21/17 Range/Units 04:19 16:19 20:37 RBC (4.30-5.90) m/uL Hgb (13.0-17.5) gm/dL Hct (39.0-53.0) % BUN (9-20) mg/dL Glucose (74-99) mg/dL POC Glucose (mg/dL) 416 H 291 H (75-99) mg/dL Hemoglobin A1c 10.7 H (4.0-6.0) % TSH (0.465-4.680) mIU/L 10/22/17 10/22/17 10/22/17 Range/Units 05:22 06:49 07:57 RBC 3.90 L (4.30-5.90) m/uL Hgb 12.3 L (13.0-17.5) gm/dL Hct 35.5 L (39.0-53.0) % BUN (9-20) mg/dL Glucose (74-99) mg/dL POC Glucose (mg/dL) 173 H (75-99) mg/dL Hemoglobin A1c (4.0-6.0) % TSH 5.630 H (0.465-4.680) mIU/L 10/22/17 10/22/17 Range/Units 07:57 11:15 RBC (4.30-5.90) m/uL Hgb (13.0-17.5) gm/dL Hct (39.0-53.0) % BUN 31 H (9-20) mg/dL Glucose 254 H (74-99) mg/dL POC Glucose (mg/dL) 290 H (75-99) mg/dL Hemoglobin A1c (4.0-6.0) % TSH 5.870 H (0.465-4.680) mIU/L Microbiology - Last 24 Hours (Table) 10/20/17 20:06 Blood Culture Gram Stain - Preliminary Blood Blood Culture - Preliminary Gram Neg Bacilli 10/20/17 20:06 Blood Culture - Final Blood Assessment and Plan Plan: Assessment and plan #1 fever and chills with associated cough, temperature 102 on arrival, sepsis workup in progress. #2 mild shortness of breath, no evidence of congestive heart failure. Chest x- ray does not reveal congestive heart failure. BNP level is mildly elevated which may be normal for this patient with known severe ischemic cardiomyopathy #3 history of myocardial infarction with prior stent placements #4 diabetes # 5 hypertension #6 hyperlipidemia #7 ischemic cardiomyopathy with documented ejection fraction of less than 20%. Patient has been advised in the past to undergo implantation of AICD but has refused. A lengthy discussion was made again this morning regarding the importance of implant of AICD for prevention of sudden cardiac , patient states he will think about it and consider it when he moves back out of state. He does not wish to have the procedures done at this time. #8 chronic systolic congestive heart failure without acute exacerbation Plan We will maximize congestive heart failure medications and medications for atherosclerosis. We will put the patient on a by mouth dose of Lasix, continue Coreg 25 mg one tablet by mouth twice a day, increase lisinopril to 20 mg by mouth twice a day, and increase Aldactone to 50 mg daily. Patient has been initiated on IV antibiotics for his positive blood cultures. DNP note has been reviewed, I agree with a documented findings and plan of care. Patient was seen and examined.
[2017-10-22 13:31] LABS: Appearance,Urine Clear (Clear); Bilirubin,Urine Negative (Negative); Blood,Urine Negative (Negative); Color,Urine Yellow; Glucose,Urine (UA) 4+ (Negative); Hyaline Casts,Urine 3 /lpf (0-2); Ketones,Urine Negative (Negative); Leukocyte Esterase,Urine Negative (Negative); Mucus,Urine Rare /hpf; Nitrite,Urine Negative (Negative); PH, Urine 5.5 (5.0-8.0); Protein,Urine 1+ (Negative); Specific Gravity,Urine 1.019 (1.001-1.035); Urobilinogen,Urine <2.0 mg/dL (<2.0); WBC,Urine <1 /hpf (0-5)
[2017-10-22 16:35] LABS: Glucose,Whole Blood 389 mg/dL (75-99)
[2017-10-22] MEDS: FUROSEMIDE 20 MG TAB PO SCH (18:38)
[2017-10-22 20:59] LABS: Glucose,Whole Blood 379 mg/dL (75-99)
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
[2017-10-22] MEDS: ATORVASTATIN 40 MG TAB PO SCH (21:44)
[2017-10-22] MEDS: LISINOPRIL 20 MG TAB PO SCH (21:45)
[2017-10-22] MEDS: INSULIN NPH 300 UNIT/3 ML VIAL SQ SCH (21:45)
[2017-10-23 05:54] LABS: Glucose,Whole Blood 113 mg/dL (75-99)
[2017-10-23] MEDS: INSULIN ASPART 100 UNIT/ML 1 ML 10 ML VIAL SQ SCH ×4 (06:18→21:18)
[2017-10-23 06:25] LABS: HCT 34.9 % (39.0-53.0); HGB 12.1 gm/dL (13.0-17.5); MCH 30.8 pg (25.0-35.0); MCHC 34.6 g/dL (31.0-37.0); MCV 88.9 fL (80.0-100.0); Mean Platelet Volume 7.7; Platelet Count 230 k/uL (150-450); Poikilocytosis Slight; RBC 3.93 m/uL (4.30-5.90); RDW 14.2 % (11.5-15.5); WBC 5.5 k/uL (3.8-10.6)
[2017-10-23] MEDS: CARVEDILOL 12.5 MG TAB PO SCH ×2 (06:42→17:42)
[2017-10-23 07:18] LABS: Anion Gap 12 mmol/L; Blood Urea Nitrogen 28 mg/dL (9-20); Calcium 8.9 mg/dL (8.4-10.2); Carbon Dioxide 25 mmol/L (22-30); Chloride 103 mmol/L (98-107); Glucose 102 mg/dL (74-99); Potassium 4.4 mmol/L (3.5-5.1); Sodium 140 mmol/L (137-145)
[2017-10-23] MEDS: ASPIRIN 81 MG PO SCH (08:08)
[2017-10-23] MEDS: DOXYCYCLINE MONOHYDRATE 100 MG CAPSULE PO SCH ×2 (08:08→21:53)
[2017-10-23] MEDS: SPIRONOLACTONE 25 MG TAB PO SCH ×2 (08:08→08:24)
[2017-10-23] MEDS: LISINOPRIL 20 MG TAB PO SCH ×3 (08:08→21:54)
[2017-10-23] MEDS: cefTRIAXone IN SWFI 1,000 MG/10 ML SYRINGE IVP SCH (08:08)
[2017-10-23] MEDS: CITALOPRAM HYDROBROMIDE 20 MG TAB PO SCH ×2 (08:08→21:54)
[2017-10-23] MEDS: FUROSEMIDE 20 MG TAB PO SCH ×2 (08:08→17:42)
[2017-10-23] MEDS: ACETAMINOPHEN TAB 325 MG TAB PO PRN (08:09)
[2017-10-23] MEDS: HEPARIN SODIUM,PORCINE 5,000 UNIT/ML 1 ML VIAL SQ SCH ×2 (08:10→17:42)
[2017-10-23] MEDS: INSULIN NPH 300 UNIT/3 ML VIAL SQ SCH ×3 (08:10→21:54)
[2017-10-23] MEDS: SODIUM CHLORIDE 0.9% 1,000 ML IV SCH (08:20)
[2017-10-23] MEDS: amLODIPine 5 MG TAB PO SCH (08:23)
--- NOTE | 2017-10-23 09:41 | XR ---
EXAMINATION TYPE: XR chest 2V DATE OF EXAM: 10/23/2017 COMPARISON: 10/22/2017 TECHNIQUE: PA and lateral views submitted. HISTORY: Shortness of breath FINDINGS: Cardiomegaly with left lower lobe infiltrate and small bilateral effusions. Central interstitial quincy marty noted. No pneumothorax. Hypertrophic change of the spine. Arthropathy of the shoulders. IMPRESSION: 1. Cardiomegaly, COPD with bilateral infiltrate and small effusion. Correlate for CHF. Underlying pne umonia not excluded. Frontal diagnosis would also include atypical or interstitial pneumonitis.
--- NOTE | 2017-10-23 09:47 | P.PN ---
Subjective Progress Note Date: 10/23/17 Principal diagnosis: Shortness of breath Patient is a 62-year-old male to past medical history of coronary artery disease, diabetes, congestive heart failure, dyslipidemia, and hypertension who presented with complaints of worsening shortness of breath. In the ER he underwent extensive evaluation. On arrival he was found have a fever of 102.7 with a respiratory rate of 26 and oxygen saturation of 89% on room air. Initial laboratory analysis showed an elevated BUN of 23. He did have a slightly elevated troponin at 0.037. Initial chest x-ray showed no acute process. He was admitted with probable acute exacerbation of CHF with acute hypoxic respiratory failure and fever. He was started on IV diuretics, echocardiogram was ordered, and cardiology consultation was placed. Cardiology felt that he was compensated and did not have acute exacerbation of CHF and he was therefore transitioned to oral Lasix. Echocardiogram showed an ejection fraction of 20-25% with severely dilated left atrium. He continued to spike fever is mostly at night. Blood cultures were obtained which came back with bacillus not anthracis and he was started on Rocephin and doxycyclin. Only one culture was obtained and an additional culture was ordered. He had a follow-up chest x-ray done on 10/22 which showed probable infiltrate. Urinalysis was rechecked did not show any UTI. He has been working on building a petting through with poultry and other games fowl as well as exotic animal. He has been working closely with their excrement. ID was consulted and agreed with rocephin and doxycycline. Patient seen and examined at bedside. Still feeling well today. Had some swelling yesterday after getting out of the shower but it resolved without intervention. No chest pain or shortness of breath. No cough. Would like to go home as soon as able. Discussed with him that we have follow-up blood cultures pending to ensure clearance and will await final culture results as to what oral antibiotic he could potentially be discharged on. Objective - Vital Signs Vital signs: Vital Signs Temp 98.2 F 10/23/17 08:00 Pulse 69 10/23/17 08:00 Resp 18 10/23/17 08:00 BP 118/64 10/23/17 08:00 Pulse Ox 97 10/23/17 08:00 Intake & Output 06/19/18 06/20/18 06/20/18 18:59 06:59 18:59 Intake Total 480 160 Output Total 300 Balance 180 160 Weight 102 kg Intake: Intake, IV Titration 160 Amount Sodium Chloride 0.9% 1, 160 000 ml @ 20 mls/hr IV . Q24H [facility] Rx#:[id number] Oral 480 Output: Urine 300 Other: Voiding Method Toilet Urinal # Voids 1 - Exam General: non toxic, no distress, appears at stated age, obese Derm: warm, dry Head: atraumatic, normocephalic, symmetric Eyes: EOMI, no lid lag, anicteric sclera Mouth: no lip lesion, mucus membranes moist Cardiovascular: S1S2 reg, no murmur, positive posterior tibial pulse bilateral, Lungs:decreased be b/l bases, no rhonchi, no rales , no accessory muscle use Abdominal: soft, nontender to palpation, no guarding, no appreciable organomegaly Ext: no gross muscle atrophy, trace edema, no contractures Neuro: CN II-XI grossly intact, no focal neuro deficits Psych: Alert, oriented, appropriate affect e - Labs CBC & Chem 7: 10/23/17 05:49 10/23/17 05:49 Labs: Abnormal Lab Results - Last 24 Hours (Table) 10/22/17 10/22/17 10/22/17 Range/Units 11:15 13:08 16:21 RBC (4.30-5.90) m/uL Hgb (13.0-17.5) gm/dL Hct (39.0-53.0) % BUN (9-20) mg/dL Glucose (74-99) mg/dL POC Glucose (mg/dL) 290 H 389 H (75-99) mg/dL Urine Protein 1+ H (Negative) Urine Glucose (UA) 4+ H (Negative) Hyaline Casts 3 H (0-2) /lpf Urine Mucus Rare H (None) /hpf 10/22/17 10/23/17 10/23/17 Range/Units 20:58 05:49 05:49 RBC 3.93 L (4.30-5.90) m/uL Hgb 12.1 L (13.0-17.5) gm/dL Hct 34.9 L (39.0-53.0) % BUN 28 H (9-20) mg/dL Glucose 102 H (74-99) mg/dL POC Glucose (mg/dL) 379 H (75-99) mg/dL Urine Protein (Negative) Urine Glucose (UA) (Negative) Hyaline Casts (0-2) /lpf Urine Mucus (None) /hpf 10/23/17 Range/Units 05:52 RBC (4.30-5.90) m/uL Hgb (13.0-17.5) gm/dL Hct (39.0-53.0) % BUN (9-20) mg/dL Glucose (74-99) mg/dL POC Glucose (mg/dL) 113 H (75-99) mg/dL Urine Protein (Negative) Urine Glucose (UA) (Negative) Hyaline Casts (0-2) /lpf Urine Mucus (None) /hpf Microbiology - Last 24 Hours (Table) 10/20/17 20:06 Blood Culture Gram Stain - Final Blood Blood Culture - Final Bacillus species Not Anthracis Assessment and Plan Assessment: Bacillus bacteremia with pneumonia -Continue with Rocephin and doxycycline -Will need repeat CXR after abx completed to ensure clearing -ID recs appreciated - Repeat blood cultures pending - hope to d/c soon on oral antibiotics Chronic congestive heart failure without exacerbation, ejection fraction 20-25% -Continue with Coreg, Lasix, lisinopril, statin -Cardiology recommendations appreciated Diabetes mellitus type 2 with suboptimal control -A1c 10.7 -Continue with sliding scale and NPH 15 twice a day, patient states he was on 30 units twice a day at home Coronary artery disease -Aspirin, statin, beta tonya Hypertension, controlled -Continue with beta tonya, ROSA MARIA inhibitor, diuretics Acute hypoxic respiratory failure, resolved DVT prophylaxis: Heparin Discussed with: Patient, nursing Anticipated discharge: 24-[address]: home A total of 25 minutes was spent on the care of this complex patient more than 50 % of the time was spent in counseling and care coordination.
[2017-10-23 11:25] LABS: Glucose,Whole Blood 369 mg/dL (75-99)
--- NOTE | 2017-10-23 12:41 | P.PN ---
Subjective Progress Note Date: 10/23/17 This is a 62-year-old gentleman with known history of prior myocardial infarction and prior stent placements, ischemic cardiomyopathy, hypertension, diabetes, hyperlipidemia, he has seen Dr. Chester in the office, however travels frequently and also has a fitting room associate and primary care doctor out of state. Patient has known severe cardiomyopathy and has been advised to have AICD in the past, however he has refused. He presents to the hospital on this occasion with symptoms of fever, cough, chills, and mild shortness of breath. His EKG on arrival here showed a normal sinus rhythm with first-degree AV block, left axis deviation, and bundle-branch block pattern. Chest x-ray did not reveal any acute lung disease. Temperature on arrival 102.7 , blood pressure 130/60, 89% on room air. White blood cell count on admission 7.9, 4.2 this morning. Hemoglobin 11.7, platelet count 144. Sodium 136, potassium 4.4, BUN 23 creatinine 1.0 on admission, 28 and 1.3 this morning. BNP level 4870, troponins 0.037, 0.047. Patient was initiated on IV Lasix in the emergency room, diuresed well from this. At the time of our examination this morning, patient denies any shortness of breath, no PND or orthopnea, does have a mild cough. Temperature 97.7 this morning, blood pressure 110/60, heart rate in the 60s. 10/22/2017 Patient continues to run temperatures of 102, 101, blood cultures positive for gram-negative bacilli. Blood pressure 144/74 with a heart rate of 68, 97% on 5 L of oxygen. Echocardiogram with Doppler study was performed which revealed an ejection fraction of 20-25%, moderate mitral regurg. From cardiology's perspective, we will maximize the patient's medication. 10/23/2017 Patient was seen and examined this morning, he is remaining afebrile. Blood cultures are positive for bacillus species. He is currently on IV antibiotics, Dr. Carmona has been consulted as well. From cardiology's perspective, we will follow him along with you now on an as-needed basis only. He will follow-up with his fitting room associate in [place] post discharge. Objective - Vital Signs Vital signs: Vital Signs Temp 98.2 F 10/23/17 08:00 Pulse 73 06/20/18 11:30 Resp 18 10/23/17 11:30 BP 126/72 10/23/17 11:15 Pulse Ox 97 10/23/17 08:00 Intake & Output 10/22/17 10/23/17 10/23/17 18:59 06:59 18:59 Intake Total 480 160 Output Total 300 800 Balance 180 160 -800 Weight 102 kg Intake: Intake, IV Titration 160 Amount Sodium Chloride 0.9% 1, 160 000 ml @ 20 mls/hr IV . Q24H [facility] Rx#:[id number] Oral 480 Output: Urine 300 800 Other: Voiding Method Toilet Toilet Urinal Urinal # Voids 1 - Exam PHYSICAL EXAMINATION: GENERAL: 62-year-old gentleman in no apparent distress at the time of my examination. HEENT: Head is atraumatic, normocephalic. Pupils equal, round. Sclera anicteric. Conjunctiva are clear. Mucous membranes of the mouth are moist. Neck is supple. There is no elevated jugular venous pressure.] bruit is heard. HEART EXAMINATION: Heart S1, S2 normal. No murmur or gallop heard. CHEST EXAMINATION: lungs reveal crackles to bilateral bases. ABDOMEN: Soft, nontender. Bowel sounds are heard. No organomegaly noted. EXTREMITIES: 2+ peripheral pulses with no evidence of peripheral edema and no calf tenderness noted. NEUROLOGIC patient is awake, alert and oriented -3. - Labs CBC & Chem 7: 10/23/17 05:49 10/23/17 05:49 Labs: Abnormal Lab Results - Last 24 Hours (Table) 10/22/17 10/22/17 10/22/17 Range/Units 13:08 16:21 20:58 RBC (4.30-5.90) m/uL Hgb (13.0-17.5) gm/dL Hct (39.0-53.0) % BUN (9-20) mg/dL Glucose (74-99) mg/dL POC Glucose (mg/dL) 389 H 379 H (75-99) mg/dL Urine Protein 1+ H (Negative) Urine Glucose (UA) 4+ H (Negative) Hyaline Casts 3 H (0-2) /lpf Urine Mucus Rare H (None) /hpf 10/23/17 10/23/17 10/23/17 Range/Units 05:49 05:49 05:52 RBC 3.93 L (4.30-5.90) m/uL Hgb 12.1 L (13.0-17.5) gm/dL Hct 34.9 L (39.0-53.0) % BUN 28 H (9-20) mg/dL Glucose 102 H (74-99) mg/dL POC Glucose (mg/dL) 113 H (75-99) mg/dL Urine Protein (Negative) Urine Glucose (UA) (Negative) Hyaline Casts (0-2) /lpf Urine Mucus (None) /hpf 10/23/17 Range/Units 11:21 RBC (4.30-5.90) m/uL Hgb (13.0-17.5) gm/dL Hct (39.0-53.0) % BUN (9-20) mg/dL Glucose (74-99) mg/dL POC Glucose (mg/dL) 369 H (75-99) mg/dL Urine Protein (Negative) Urine Glucose (UA) (Negative) Hyaline Casts (0-2) /lpf Urine Mucus (None) /hpf Microbiology - Last 24 Hours (Table) 10/22/17 08:23 Blood Culture - Preliminary Blood No Growth after 24 hours 10/22/17 07:57 Blood Culture - Preliminary Blood No Growth after 24 hours 10/20/17 20:06 Blood Culture Gram Stain - Final Blood Blood Culture - Final Bacillus species Not Anthracis Assessment and Plan Plan: Assessment and plan #1 fever and chills with associated cough, temperature 102 on arrival, sepsis workup in progress. #2 mild shortness of breath, no evidence of congestive heart failure. Chest x- ray does not reveal congestive heart failure. BNP level is mildly elevated which may be normal for this patient with known severe ischemic cardiomyopathy #3 history of myocardial infarction with prior stent placements #4 diabetes # 5 hypertension #6 hyperlipidemia #7 ischemic cardiomyopathy with documented ejection fraction of less than 20%. Patient has been advised in the past to undergo implantation of AICD but has refused. A lengthy discussion was made again this morning regarding the importance of implant of AICD for prevention of sudden cardiac , patient states he will think about it and consider it when he moves back out of state. He does not wish to have the procedures done at this time. #8 chronic systolic congestive heart failure without acute exacerbation Plan Cardiology's perspective, we'll continue the patient on his current medications. We will follow him now on an as-needed basis only, please don't hesitate to call with any questions. Patient will follow-up with his fitting room associate in [place] post discharge, no follow-up appointment needed with cardiology Associates. DNP note has been reviewed, I agree with a documented findings and plan of care. Patient was seen and examined.
[2017-10-23 12:59] VITALS: RESP 16
[2017-10-23 17:38] LABS: Glucose,Whole Blood 333 mg/dL (75-99)
[2017-10-23 20:16] LABS: Glucose,Whole Blood 439 mg/dL (75-99)
[2017-10-23] MEDS: ATORVASTATIN 40 MG TAB PO SCH (21:54)
--- NOTE | 2017-10-23 23:14 | P.PN ---
Subjective Progress Note Date: 10/23/17 Pleasant 62-year-old male presents to Hospital being fairly poorly for several days. He noticed he was having increasing difficulties with his breathing he was having worsening shortness of breath with any activity as well as when he was trying to lay flat. He was not sleeping well and was trying to sleep in a more upright position. Because he was feeling so poorly he presented to Hospital for further evaluation. He has been evaluated by cardiology and he has a known history of significant coronary artery disease and because of his level of ischemic cardiomyopathy he is a candidate for AICD placement. However has not wanted this. The patient does have a relationship with a woman who is considerably younger and removing to [place] in the near future. He will see cardiology they're thinking consider what his options will be at that point in time. Fortunately since coming to hospital and having treatment for congestive heart failure he has had improvement. However the patient did have significant fever and with treatment is now having some improvement. He does have some cough and sputum production which she relates is not that unusual for him. He does relate at this time his fevers have resolved. He is having no further chills or rigors. Shortness of breath is improving. His chest x-ray remains somewhat abnormal although he has had a relatively good amount of diuresis and consult there is concerns pneumonia and infectious diseases evaluation has been requested. 10/23/2017 patient relates is feeling considerably better today. Shortness of breath is improved. He has better energy and is eating his meals with no difficulties. He is not having much sputum production and denies other interim acute new changes. Objective - Vital Signs Vital signs: Vital Signs Temp 97.5 F L 10/23/17 20:40 Pulse 74 10/23/17 20:40 Resp 16 10/23/17 20:40 BP 148/76 10/23/17 20:40 Pulse Ox 94 L 10/23/17 20:40 Intake & Output 10/23/17 10/23/17 10/24/17 06:59 18:59 06:59 Intake Total 160 Output Total 800 Balance 160 -800 Weight 102 kg Intake: Intake, IV Titration 160 Amount Sodium Chloride 0.9% 1, 160 000 ml @ 20 mls/hr IV . Q24H [facility] Rx#:[id number] Output: Urine 800 Other: Voiding Method Toilet Toilet Toilet Urinal # Voids 1 2 1 - Exam 62-year-old male, is overweight but seems comfortable at this time HEENT: Anicteric conjunctiva are pink and moist nasal mucosa grossly intact without significant lesions, there is no thrush. Neck: The neck is supple without significant lymphadenopathy or thyromegaly. Lungs: Symmetrical air entry with basilar crackles which are bilateral left greater than right, no true dullness does have some localized egophony at the left lower lobe area Heart: Irregular audible S1 and S2 soft S4 no distinct murmur click or rub is noted. PMI nondisplaced Abdomen: Mildly obese Positive bowel sounds soft and nontender without palpable masses or organomegaly. There was no guarding or rebound. Extremities: The upper extremities have excellent pulses they are symmetric, no significant petechiae or telangiectasia. No splinter hemorrhages were noted. The lower extremities are free from significant edema. The peripheral pulses were 2+ and symmetric. Neuro: Awake alert oriented to person place and time. There are no acute new gross focal sensory motor deficits. - Labs CBC & Chem 7: 10/23/17 05:49 10/23/17 05:49 Labs: Abnormal Lab Results - Last 24 Hours (Table) 10/23/17 10/23/17 10/23/17 Range/Units 05:49 05:49 05:52 RBC 3.93 L (4.30-5.90) m/uL Hgb 12.1 L (13.0-17.5) gm/dL Hct 34.9 L (39.0-53.0) % BUN 28 H (9-20) mg/dL Glucose 102 H (74-99) mg/dL POC Glucose (mg/dL) 113 H (75-99) mg/dL 10/23/17 10/23/17 10/23/17 Range/Units 11:21 17:37 20:14 RBC (4.30-5.90) m/uL Hgb (13.0-17.5) gm/dL Hct (39.0-53.0) % BUN (9-20) mg/dL Glucose (74-99) mg/dL POC Glucose (mg/dL) 369 H 333 H 439 H (75-99) mg/dL Microbiology - Last 24 Hours (Table) 10/20/17 20:06 Blood Culture Gram Stain - Final Blood Blood Culture - Final Bacillus species Not Anthracis 10/22/17 08:23 Blood Culture - Preliminary Blood No Growth after 24 hours 10/22/17 07:57 Blood Culture - Preliminary Blood No Growth after 24 hours Laboratory Results WBC 5.5 k/uL (3.8-10.6) 10/23/17 05:49 RBC 3.93 m/uL (4.30-5.90) L 10/23/17 05:49 Hgb 12.1 gm/dL (13.0-17.5) L 10/23/17 05:49 Hct 34.9 % (39.0-53.0) L 10/23/17 05:49 MCV 88.9 fL (80.0-100.0) 10/23/17 05:49 MCH 30.8 pg (25.0-35.0) 10/23/17 05:49 MCHC 34.6 g/dL (31.0-37.0) 10/23/17 05:49 RDW 14.2 % (11.5-15.5) 10/23/17 05:49 Plt Count 230 k/uL (150-450) 10/23/17 05:49 Neutrophils % 73 % 10/21/17 04:19 Lymphocytes % 18 % 10/21/17 04:19 Monocytes % 5 % 10/21/17 04:19 Eosinophils % 3 % 10/21/17 04:19 Basophils % 0 % 10/21/17 04:19 Neutrophils # 3.1 k/uL (1.3-7.7) 10/21/17 04:19 Lymphocytes # 0.8 k/uL (1.0-4.8) L 10/21/17 04:19 Monocytes # 0.2 k/uL (0-1.0) 10/21/17 04:19 Eosinophils # 0.1 k/uL (0-0.7) 10/21/17 04:19 Basophils # 0.0 k/uL (0-0.2) 10/21/17 04:19 Poikilocytosis Slight 10/23/17 05:49 PT 9.8 sec (9.0-12.0) 10/20/17 20:06 INR 1.0 (<1.2) 10/20/17 20:06 APTT 23.7 sec (22.0-30.0) 10/20/17 20:06 Sodium 140 mmol/L (137-145) 10/23/17 05:49 Potassium 4.4 mmol/L (3.5-5.1) 10/23/17 05:49 Chloride 103 mmol/L (98-107) 10/23/17 05:49 Carbon Dioxide 25 mmol/L (22-30) 10/23/17 05:49 Anion Gap 12 mmol/L 10/23/17 05:49 BUN 28 mg/dL (9-20) H 10/23/17 05:49 Creatinine 1.00 mg/dL (0.66-1.25) 10/23/17 05:49 Est GFR (CKD-EPI)AfAm >90 (>60 ml/min/1.73 sqM) 10/23/17 05:49 Est GFR (CKD-EPI)NonAf 79 (>60 ml/min/1.73 sqM) 10/23/17 05:49 Glucose 102 mg/dL (74-99) H 10/23/17 05:49 POC Glucose (mg/dL) 439 mg/dL (75-99) H 10/23/17 20:14 POC Glu Cuff Runner ALONSO Tegan Agrawal 10/23/17 20:[address] Glu mg/dL 260 10/21/17 04:19 Hemoglobin A1c 10.7 % (4.0-6.0) H 10/21/17 04:19 Plasma Lactic Acid Dwain 1.1 mmol/L (0.7-2.0) 10/20/17 20:06 Calcium 8.9 mg/dL (8.4-10.2) 10/23/17 05:49 Magnesium 2.2 mg/dL (1.6-2.3) 10/22/17 05:22 Total Bilirubin 0.9 mg/dL (0.2-1.3) 10/21/17 04:19 AST 17 U/L (17-59) 10/21/17 04:19 ALT 31 U/L (21-72) 10/21/17 04:19 Alkaline Phosphatase 38 U/L (38-126) 10/21/17 04:19 Total Creatine Kinase 32 U/L (55-170) L 10/20/17 20:06 CK-MB (CK-2) 1.4 ng/mL (0.0-2.4) 10/21/17 10:36 CK-MB (CK-2) Rel Index 1.9 10/20/17 20:06 Troponin I 0.033 ng/mL (0.000-0.034) 10/21/17 10:36 NT-Pro-B Natriuret Pep 4870 pg/mL 10/20/17 20:06 Total Protein 6.0 g/dL (6.3-8.2) L 10/21/17 04:19 Albumin 3.6 g/dL (3.5-5.0) 10/21/17 04:19 Triglycerides 240 mg/dL (<150) H 10/21/17 04:19 Cholesterol 110 mg/dL (<200) 10/21/17 04:19 LDL Cholesterol, Calc 39 mg/dL (0-99) 10/21/17 04:19 HDL Cholesterol 23 mg/dL (40-60) L 10/21/17 04:19 TSH 5.870 mIU/L (0.465-4.680) H 10/22/17 07:57 Free T4 1.15 ng/dL (0.78-2.19) 10/22/17 07:57 Urine Color Yellow 10/22/17 13:08 Urine Appearance Clear (Clear) 10/22/17 13:08 Urine pH 5.5 (5.0-8.0) 10/22/17 13:08 Ur Specific [place] 1.019 (1.001-1.035) 10/22/17 13:08 Urine Protein 1+ (Negative) H 10/22/17 13:08 Urine Glucose (UA) 4+ (Negative) H 10/22/17 13:08 Urine Ketones Negative (Negative) 10/22/17 13:08 Urine Blood Negative (Negative) 10/22/17 13:08 Urine Nitrite Negative (Negative) 10/22/17 13:08 Urine Bilirubin Negative (Negative) 10/22/17 13:08 Urine Urobilinogen <2.0 mg/dL (<2.0) 10/22/17 13:08 Ur Leukocyte Esterase Negative (Negative) 10/22/17 13:08 Urine RBC <1 /hpf (0-5) 10/20/17 21:30 Urine WBC <1 /hpf (0-5) 10/22/17 13:08 Hyaline Casts 3 /lpf (0-2) H 10/22/17 13:08 Urine Mucus Rare /hpf (None) H 10/22/17 13:08 Microbiology 10/20/17 20:06 Blood Blood Culture Gram Stain - Final 10/20/17 20:06 Blood Blood Culture - Final Bacillus species Not Anthracis 10/22/17 08:23 Blood Blood Culture - Preliminary No Growth after 24 hours 10/22/17 07:57 Blood Blood Culture - Preliminary No Growth after 24 hours 10/20/17 20:06 Blood Blood Culture - Final Assessment and Plan (1) Gram negative sepsis Narrative/Plan: 62-year-old male presents to Hospital from home feeling very poorly with progressive shortness of breath as well as bouts of fevers and chills and increasing weakness all present at admission. Upon presentation to the hospital he had high-grade fever and a chest x-ray that was markedly abnormal. He over has underlying ischemic cardiomyopathy and was thought to have congestive heart failure. The patient however now has evidence of gram- negative bacilli growing in his blood which makes the change in the left lower lobe both by x-ray and physical exam are likely pneumonia congest heart failure. The patient does not appear to have urinary infection and does not appear to have any skin infections at this time. The patient is feeling considerably better with current antibiotic therapy of ceftriaxone and doxycycline and this will continue for now until we have further characterization of that gram-negative bacilli. The patient is getting anxious to be discharged from hospital to get back to his living situation and get ready for his move to [place]. It appears are working with him to set up with cardiology and his new location. Cardiology remains steadfast that he needs an AICD given his level of ischemic cardiomyopathy. Follow blood cultures are negative and ordered to ensure that his bacteremia is clearing, clinically he seems to be doing considerably better. At this time we will hope that the gram-negative bacilli is quinolone susceptible which would give us an oral option for the time of his discharge. Despite his gram-negative bacteremia he does not have evidence of significant leukocytosis. 10/23/2017 patient is feeling considerably better today. Has no new complaints. Breathing is improved. Cardiology related that there is improvement of his status. The microbiology lab has now altered their interpretation the gram- negative bacilli is a gram-positive bacilli, a bacillus species not anthraces. This of course completely changes are overall treatment plan. Bacillus species is a contamination would not need any further intervention. He however did have evidence of pneumonia and the plan will be at the time of his discharge which is likely tomorrow to convert to oral cefuroxime 500 mg every 12 hours with oral doxycycline milligrams orally every 12 hours to complete 7 days of therapy for his pneumonia which may have been gram-negative. Fortunately he does not have gram-negative bacteremia and will not need outpatient intravenous antibiotic therapy. Current Visit: Yes Status: Acute Code(s): A41.50 - GRAM-NEGATIVE SEPSIS, UNSPECIFIED SNOMED Code(s): 368861716 (2) Congestive heart failure Current Visit: Yes Status: Acute Code(s): I50.9 - HEART FAILURE, UNSPECIFIED SNOMED Code(s): 79509038 (3) Dyspnea Current Visit: Yes Status: Acute Code(s): R06.00 - DYSPNEA, UNSPECIFIED SNOMED Code(s): 119156606
[2017-10-24] MEDS: HEPARIN SODIUM,PORCINE 5,000 UNIT/ML 1 ML VIAL SQ SCH ×2 (02:24→08:35)
[2017-10-24] MEDS: SODIUM CHLORIDE 0.9% 1,000 ML IV SCH (02:29)
[2017-10-24 05:34] VITALS: BP 150/85; PULSE 80; TEMP 98.2
[2017-10-24] MEDS: ACETAMINOPHEN TAB 325 MG TAB PO PRN (06:30)
[2017-10-24 07:11] LABS: Glucose,Whole Blood 266 mg/dL (75-99)
[2017-10-24] MEDS: FUROSEMIDE 20 MG TAB PO SCH (08:35)
[2017-10-24] MEDS: SPIRONOLACTONE 25 MG TAB PO SCH (08:36)
[2017-10-24] MEDS: CITALOPRAM HYDROBROMIDE 20 MG TAB PO SCH (08:36)
[2017-10-24] MEDS: ASPIRIN 81 MG PO SCH (08:36)
[2017-10-24] MEDS: LISINOPRIL 20 MG TAB PO SCH (08:36)
[2017-10-24] MEDS: CARVEDILOL 12.5 MG TAB PO SCH (08:36)
[2017-10-24] MEDS: DOXYCYCLINE MONOHYDRATE 100 MG CAPSULE PO SCH (08:36)
[2017-10-24] MEDS: INSULIN ASPART 100 UNIT/ML 1 ML 10 ML VIAL SQ SCH ×2 (08:37→12:59)
[2017-10-24] MEDS: cefTRIAXone IN SWFI 1,000 MG/10 ML SYRINGE IVP SCH (08:37)
[2017-10-24] MEDS: INSULIN NPH 300 UNIT/3 ML VIAL SQ SCH (08:45)
[2017-10-24 11:39] LABS: Glucose,Whole Blood 331 mg/dL (75-99)
--- NOTE | 2017-10-24 12:24 | P.DS ---
Providers Date of admission: 10/20/17 22:30 Attending physician: Randolph Avendano MD Consults: 10/21/17 01:55 Consult Physician Routine Consulting Provider: Clyde Hendrix Consult Reason/Comments: CHF Do you want consulting provider notified?: Yes 10/22/17 10:29 Consult Physician Routine Consulting Provider: Jabier Carmona Consult Reason/Comments: bacteremia, ? PNA, exposure to exotic animals Do you want consulting provider notified?: Yes Primary care physician: Physician Nonstaff - Discharge Diagnosis(es) (1) Acute respiratory failure with hypoxia Current Visit: Yes Status: Acute (2) Sepsis Current Visit: Yes Status: Acute (3) Community acquired pneumonia Current Visit: Yes Status: Acute (4) Systolic CHF, chronic Current Visit: Yes Status: Acute (5) Type 2 diabetes mellitus with hyperglycemia Current Visit: Yes Status: Acute Hospital Course: Patient is a 62-year-old male to past medical history of prior [place], coronary artery disease with stent placement, ischemic cardiomyopathy, diabetes , congestive heart failure, dyslipidemia, and hypertension who presented with complaints of worsening shortness of breath and was admitted with acute respiratory failure with hypoxia secondary to a community-acquired pneumonia. In the ER he underwent extensive evaluation. On arrival he was found have a fever of 102.7 with a respiratory rate of 26 and oxygen saturation of 89% on room air. Initial laboratory analysis showed an elevated BUN of 23. He did have a slightly elevated troponin at 0.037. Initial chest x-ray showed no acute process. He was admitted with probable acute exacerbation of CHF with acute hypoxic respiratory failure and fever. He continued to spike fever is mostly at night. Blood cultures were obtained which came back with bacillus not anthracis and he was started on Rocephin and doxycyclin. Only one culture was obtained and an additional culture was ordered. He had a follow-up chest x- ray done on 10/22 which showed probable infiltrate. Urinalysis was rechecked did not show any UTI. He has been working on building a petting through with poultry and other games fowl as well as exotic animal. He has been working closely with their excrement. ID was consulted and agreed with rocephin and doxycycline, later transitioned to oral cefuroxime and doxycycline at discharge.He was started on IV diuretics, echocardiogram was ordered, and cardiology consultation was placed. Cardiology felt that he was compensated and did not have acute exacerbation of CHF and he was therefore transitioned to oral Lasix. Echocardiogram showed an ejection fraction of 20-25% with severely dilated left atrium. Cardiology recommended advised the patient that he needs to have an AICD placed, and informed him of the risk including sudden cardiac ,however he refused nny intervention at this time and stated that he would follow-up with a dialysis chief equipment technician after he moved to [place] with his fiance. The patient also refused to be placed on insulin at this time as he did have ongoing hyperglycemia and his A1c was 10.7 and stated that he would take care of her after he moved to [place]. He was subsequently discharged home in stable condition told to follow-up with his PCP and keep his appointment to see cardiology. This discharge process took approximately 35 minutes New prescriptions at discharge cefuroxime 500 mg every 12 hours with oral doxycycline milligrams orally every 12 hours to complete 7 days of therapy Patient Condition at Discharge: Fair Plan - Discharge Summary Discharge Rx Participant: No New Discharge Prescriptions: New Cefuroxime Axetil [Ceftin] 500 mg PO BID #8 tab Doxycycline Monohydrate [Vibramycin] 100 mg PO BID #8 capsule Lisinopril [Zestril] 20 mg PO BID #60 tab Spironolactone [Aldactone] 50 mg PO DAILY #30 tab Continue Nitroglycerin Sl Tabs [Nitrostat] 0.4 mg SUBLINGUAL Q5M PRN PRN Reason: Chest Pain Simvastatin [Zocor] 10 mg PO HS Citalopram Hydrobromide [Citalopram HBr] 20 mg PO DAILY glipiZIDE [Glucotrol] 5 mg PO AC-BRKFST Furosemide [Lasix] 20 mg PO BID amLODIPine [Norvasc] 5 mg PO DAILY ALPRAZolam [Xanax] 0.5 mg PO BID PRN PRN Reason: Anxiety Carvedilol 25 mg PO BID metFORMIN HCL [Glucophage] 500 mg PO DAILY Discontinued Enalapril [Vasotec] 10 mg PO DAILY Discharge Medication List ALPRAZolam [Xanax] 0.5 mg PO BID PRN 10/20/17 [History] Carvedilol 25 mg PO BID 10/20/17 [History] Citalopram Hydrobromide [Citalopram HBr] 20 mg PO DAILY 10/20/17 [History] Furosemide [Lasix] 20 mg PO BID 10/20/17 [History] Nitroglycerin Sl Tabs [Nitrostat] 0.4 mg SUBLINGUAL Q5M PRN 10/20/17 [History] Simvastatin [Zocor] 10 mg PO HS 10/20/17 [History] amLODIPine [Norvasc] 5 mg PO DAILY 10/20/17 [History] glipiZIDE [Glucotrol] 5 mg PO AC-BRKFST 10/20/17 [History] metFORMIN HCL [Glucophage] 500 mg PO DAILY 10/20/17 [History] Cefuroxime Axetil [Ceftin] 500 mg PO BID #8 tab 10/24/17 [Rx] Doxycycline Monohydrate [Vibramycin] 100 mg PO BID #8 capsule 10/24/17 [Rx] Lisinopril [Zestril] 20 mg PO BID #60 tab 10/24/17 [Rx] Spironolactone [Aldactone] 50 mg PO DAILY #30 tab 10/24/17 [Rx] Follow up Appointment(s)/Referral(s): Nonstaff,Physician [Primary Care Provider] - 1-2 days (Dr. Fonseca in [place] - Patient states he will make his own follow-up appointment) Patient Instructions/Handouts: Cefuroxime (By mouth), Spironolactone (By mouth) , Lisinopril (By mouth), Doxycycline (By mouth), Heart Failure (DC), Heart Healthy Diet (DC), Diabetic Hyperglycemia (DC) Activity/Diet/Wound Care/Special Instructions: cardiology cleared PCP is Dr. Fonseca in [place] Patient will follow-up with her neurologist in [place]. No cardiology follow-up with Dr. Garza Discharge Disposition: HOME SELF-CARE
== END 2017-10-24 13:20 | disposition home or self-care (01) | DRG 871 ==
LOC: EC 19:31 → 6SEL 22:30 → 5MS5E 10-23 13:14
PROVIDERS: ADMIT Internal Medicine; ATTEND Internal Medicine
DX: A41.50 Gram-negative sepsis, unspecified (principal); J18.9 Pneumonia, unspecified organism; J96.01 Acute respiratory failure with hypoxia; I50.22 Chronic systolic (congestive) heart failure; I11.0 Hypertensive heart disease with heart failure; E11.65 Type 2 diabetes mellitus with hyperglycemia; I25.5 Ischemic cardiomyopathy; I25.10 Atherosclerotic heart disease of native coronary artery without angina pectoris; I34.0 Nonrheumatic mitral (valve) insufficiency; I44.0 Atrioventricular block, first degree; E78.5 Hyperlipidemia, unspecified; F41.9 Anxiety disorder, unspecified; I25.2 Old myocardial infarction; R77.9 Abnormality of plasma protein, unspecified; D64.9 Anemia, unspecified; E66.9 Obesity, unspecified; Z68.32 Body mass index [BMI] 32.0-32.9, adult; Z71.3 Dietary counseling and surveillance; Z79.84 Long term (current) use of oral hypoglycemic drugs; Z79.899 Other long term (current) drug therapy; Z95.5 Presence of coronary angioplasty implant and graft; Z88.1 Allergy status to other antibiotic agents; Z83.3 Family history of diabetes mellitus; Z82.49 Family history of ischemic heart disease and other diseases of the circulatory system
CPT/HCPCS: 36415; 71045; 71046; 80048; 80053; 80061; 81001; 82550; 82553; 83036; 83605; 83735; 83880; 84439; 84443; 84484; 85025; 85027; 85610; 85730; 87040; 93005; 93306; 94760; 96374; 99285

== ENCOUNTER 2019-03-10 22:31 | Inpatient (IN) | payer MEDICARE, OTHER ==
[2019-03-10 23:30] LABS: Basophils # (A) 0.1 k/uL (0-0.2); Basophils % (A) 1 %; Eosinophils # (A) 0.3 k/uL (0-0.7); Eosinophils % (A) 3 %; HCT 38.8 % (39.0-53.0); HGB 13.8 gm/dL (13.0-17.5); Lymphocytes # (A) 0.8 k/uL (1.0-4.8); Lymphocytes % (A) 7 %; MCH 32.3 pg (25.0-35.0); MCHC 35.4 g/dL (31.0-37.0); MCV 91.2 fL (80.0-100.0); Mean Platelet Volume 7.3; Monocytes # (A) 0.5 k/uL (0-1.0); Monocytes % (A) 5 %; Neutrophils # (A) 9.5 k/uL (1.3-7.7); Neutrophils % (A) 83 %; Platelet Count 206 k/uL (150-450); Poikilocytosis Slight; RBC 4.26 m/uL (4.30-5.90); RDW 14.8 % (11.5-15.5); WBC 11.4 k/uL (3.8-10.6)
[2019-03-10 23:32] LABS: INR 0.9 (<1.2); Partial Thromboplastin Time 24.3 sec (22.0-30.0); Prothrombin Time 9.8 sec (9.0-12.0)
[2019-03-10 23:33] LABS: Albumin 4.3 g/dL (3.5-5.0); Calcium 9.4 mg/dL (8.4-10.2); Magnesium 1.4 mg/dL (1.6-2.3); Potassium 4.6 mmol/L (3.5-5.1); Total Bilirubin 0.9 mg/dL (0.2-1.3); Total Protein 7.2 g/dL (6.3-8.2)
--- NOTE | 2019-03-10 23:42 | XR ---
EXAMINATION TYPE: XR chest 2V DATE OF EXAM: 03/10/2019 COMPARISON: 10/23/2017 HISTORY: Chest pain TECHNIQUE: Frontal and lateral views of the chest are obtained. FINDINGS: There is mild coarsening of the lung markings. There is very slight blunting of the health safety and environment manager ior costophrenic angles. There is no heart failure. There are no hilar masses. Heart is borderline en larged. There are chest leads. IMPRESSION: Minimal pleural reaction at the lung bases improved compared to last exam. There is ethan ring of the mild pulmonary interstitial edema compared to old exam.
[2019-03-10] MEDS ORDERED: IPRATROPIUM-ALBUTEROL 3 ML NEB INHALATION STA (23:48)
[2019-03-10] MEDS ORDERED: MORPHINE SULFATE 4 MG/ML SYRINGE IVP STA (23:49)
[2019-03-11] MEDS: MAGNESIUM SULFATE-D5W PMX 1 GM in DEXTROSE/WATER 1 100ML.BAG IVPB SCH ×2 (00:15→01:15)
--- NOTE | 2019-03-11 00:16 | CT ---
EXAMINATION TYPE: CT chest angio for PE DATE OF EXAM: 03/10/2019 COMPARISON: None HISTORY: hypoxia SOB CT DLP: 596.3 mGycm Automated exposure control for dose reduction was used. CONTRAST: CT Chest for pulmonary embolism performed with with IV Contrast, patient injected with 80 mL of Isovu e 370. There are 3-D post processed images. FINDINGS: There is coarsening of the lung markings. There is no pulmonary consolidation. There is no evidence o f a pulmonary mass. There is small right pleural effusion. There is very small left pleural effusion. There is some fatty infiltration of the liver. There is dense calcified gallstones. There is normal contrast opacification of the pulmonary arteries. There are no filling defects. There is no mediastinal adenopathy. There no hilar masses. The bony thorax is intact. There is spurring in the thoracic spine. Thoracic aorta is intact. IMPRESSION: No evidence of pulmonary embolism. Mild pulmonary interstitial infiltrates and small pleural effusions. This could relate to minimal con gestive heart failure.
[2019-03-11] MEDS ORDERED: methylPREDNISolone SOD SUCCI 125 MG/2 ML VIAL IV STA (00:41)
[2019-03-11] MEDS ORDERED: AZITHROMYCIN 500 MG in SODIUM CHLORIDE 0.9% 250 ML IVPB STA (01:16)
[2019-03-11] MEDS ORDERED: cefTRIAXone IN SWFI 1,000 MG/10 ML SYRINGE IVP STA (01:16)
--- NOTE | 2019-03-11 01:18 | ED ---
Chest Pain HPI - General Chief Complaint: Chest Pain Stated Complaint: Chest pain Time Seen by Provider: 03/10/19 22:45 Source: patient, family Mode of arrival: wheelchair Limitations: no limitations - History of Present Illness Initial Comments: The patient is a 63-year-old male with past medical history of poorly controlled diabetes, congestive heart failure and hypertension who presents to the emergency room with reported chest pain. He states it started approximately 3 hours ago. It starts in the left side of his chest and radiates to his left arm. He reports to numbness and tingling in his bilateral upper extremities. No ripping or tearing sensation to his back. Denies any provocative factors. Does admit to associated shortness of breath and wheezing. Does admit to a nonproductive cough. The patient does travel significantly. Denies any sick contacts. Denies a history of DVT or PE. No lower extremity edema. Denies calf pain or swelling. The abdominal pain or changes in his bowel or bladder habits. Does report to some her symptoms the past when he did have a CHF exacerbation and pneumonia. Denies fevers or chills. No nausea or vomiting. No history of COPD. Does not require home O2. Patient does not smoke. No unilateral numbness or weakness. There are no other alleviating, precipitating or modifying factors - Related Data Home Medications Medication Instructions Recorded Confirmed ALPRAZolam [Xanax] 0.5 mg PO DAILY PRN 10/20/17 03/11/19 Carvedilol 25 mg PO BID 10/20/17 03/11/19 Citalopram Hydrobromide 20 mg PO DAILY 10/20/17 03/11/19 [Citalopram HBr] Furosemide [Lasix] 40 mg PO BID 10/20/17 03/11/19 Nitroglycerin Sl Tabs [Nitrostat] 0.4 mg SUBLINGUAL Q5M PRN 10/20/17 03/11/19 Simvastatin [Zocor] 10 mg PO HS 10/20/17 03/11/19 amLODIPine [Norvasc] 5 mg PO DAILY 10/20/17 03/11/19 glipiZIDE [Glucotrol] 5 mg PO AC-BRKFST 10/20/17 03/11/19 metFORMIN HCL [Glucophage] 1,000 mg PO BID-W/MEALS 10/20/17 03/11/19 Enalapril [Vasotec] 10 mg PO DAILY 03/11/19 03/11/19 Insulin NPH Human Isophane 40 unit SQ BID-W/MEALS 03/12/19 03/12/19 [NovoLIN N] Allergies Allergy/AdvReac Type Severity Reaction Status Date / Time ciprofloxacin [From Cipro] Allergy Rash/Hives Verified 03/10/19 22:44 Review of Systems ROS Statement: Those systems with pertinent positive or pertinent negative responses have been documented in the HPI. ROS Other: All systems not noted in ROS Statement are negative. EKG Findings - EKG Comments: EKG Findings:: EKG is obtained and demonstrates a tachycardia with a ventricular rate of 110. QRS 152. QTC of 544. There is significant baseline artifact. There is a left bundle branch block. I did review the patient's previous EKG which does appear similar. No acute ST segment elevations. Past Medical History Past Medical History: Coronary Artery Disease (CAD), Diabetes Mellitus, Hyperlipidemia, Hypertension, Myocardial Infarction ([place]) Last Myocardial Infarction Date:: May 18, 2003 History of Any Multi-Drug Resistant Organisms: None Reported Past Surgical History: Heart Catheterization With Stent, Orthopedic Surgery Date of Last Stent Placement:: 2012 Past Psychological History: Anxiety Smoking Status: Never smoker Past Alcohol Use History: Occasional Past Drug Use History: None Reported - Past Family History family Additional Family Medical History / Comment(s): Mother with history of diabetes mellitus and CAD, father with history of heart disease and diabetes General Exam Limitations: no limitations General appearance: alert, in no apparent distress Head exam: Present: atraumatic Eye exam: Present: PERRL, EOMI ENT exam: Present: normal exam, normal oropharynx Neck exam: Absent: meningismus Respiratory exam: Present: respiratory distress, wheezes, accessory muscle use, decreased breath sounds Cardiovascular Exam: Present: normal rhythm, tachycardia GI/Abdominal exam: Present: soft. Absent: distended, tenderness Extremities exam: Present: normal inspection, full ROM Neurological exam: Present: alert, oriented X3 Psychiatric exam: Present: normal mood Skin exam: Present: warm, dry, intact Course Vital Signs 03/10/19 03/10/19 03/11/19 22:44 23:12 00:11 Temperature 99.5 F Pulse Rate 111 H 106 H 103 H Respiratory 20 18 Rate Blood Pressure 148/86 183/110 O2 Sat by Pulse 83 L 87 L Oximetry 03/11/19 03/11/19 03/11/19 00:18 00:41 01:59 Temperature 100.4 F H 99.3 F Pulse Rate 107 H 99 92 Respiratory 20 20 Rate Blood Pressure 155/101 150/84 O2 Sat by Pulse 94 L 96 Oximetry Chest Pain MDM - MDM Upon arrival the patient was placed into room 4. He is satting only 83% on room air with audible wheezing. He is placed on 5 L nasal cannula with improvement only 89%. He then increase the patient to 8 L high flow. He is provided with a DuoNeb breathing treatment. Patient is originally tachycardic. Peripheral IV was established. The patient was given 125 mg of Solu-Medrol and 2 g of magnesium. 12-lead EKG was performed. Laboratory studies were also performed which uncertain with blood cell count of 11.4. Platelets are 206. D-dimer is elevated at 0.79. Creatinine 1.2. Glucose is 340. Lactic acid 1. Magnesium 1.4. BNP 1860. First troponin is negative. Influenza A and B are negative. The patient did have it chest x-ray performed which demonstrated minimal pleural reaction at the lung bases. This is improved with improved clearing of the mild pulmonary interstitial edema compared to old exam. Because of the patient's elevated d-dimer and hypoxia did recommend a CT of the chest which demonstrates mild pulmonary interstitial infiltrates and small pleural effusions. The patient is revival. His heart rates has improved to the 90s. He is satting 95% with the 8 L of oxygen. He does have mild conversational dyspnea however feels much more comfortable. She was given 4 mg of morphine for pain control and states his pain is completely gone at this time. The patient does have his temperature taken and he has spiked a fever of 100.4. This I did obtain blood cultures and initiated the patient on azithromycin and Rocephin. I did recommend hospital admission for increased oxygen needs. I called and discussed the case with Dr. Arteaga did accept admission for the patient. Orders were placed and the patient is awaiting a bed on the floor Disposition Clinical Impression: Hypoxia, Acute respiratory failure with hypoxia, Chest pain, Community acquired pneumonia Disposition: ADMITTED IP TO THIS HOSP Condition: Serious Is patient prescribed a controlled substance at d/c from ED?: No Decision to Admit Reason: Admit from EC Decision Date: 03/11/19 Decision Time: 01:18
[2019-03-11] MEDS ORDERED: IBUPROFEN 600 MG TAB PO STA (01:27)
[2019-03-11] MEDS ORDERED: IBUPROFEN 400 MG TAB PO PRN (01:27)
[2019-03-11] MEDS ORDERED: ACETAMINOPHEN TAB 325 MG TAB PO PRN (01:27)
[2019-03-11] MEDS ORDERED: NALOXONE 0.4 MG/ML 1 ML VIAL IV PRN (01:27)
[2019-03-11 03:36] VITALS: BMI 33.5
[2019-03-11 06:05] LABS: Glucose,Whole Blood 518 mg/dL (75-99)
[2019-03-11] MEDS ORDERED: MAGNESIUM SULFATE-D5W PMX 1 GM in DEXTROSE/WATER 1 100ML.BAG IVPB ONE (06:08)
[2019-03-11] MEDS: CARVEDILOL 12.5 MG TAB PO SCH ×2 (06:30→17:19)
[2019-03-11] MEDS: INSULIN ASPART (NovoLOG) 100 UNIT/ML VIAL SQ SCH ×4 (06:31→21:00)
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
[2019-03-11] MEDS: INSULIN DETEMIR (LEVEMIR) 100 UNIT/ML SYR SQ SCH (07:19)
[2019-03-11] MEDS ORDERED: HEPARIN SODIUM,PORCINE 5,000 UNIT/ML 1 ML VIAL SQ SCH (08:00)
[2019-03-11] MEDS ORDERED: FUROSEMIDE 20 MG TAB PO SCH (09:00)
[2019-03-11] MEDS ORDERED: LISINOPRIL 20 MG TAB PO SCH (09:00)
[2019-03-11] MEDS ORDERED: SODIUM CHLORIDE 0.9% 1,000 ML in EMPTY BAG 1 BAG IV ONE (09:10)
[2019-03-11] MEDS ORDERED: ASPIRIN 325 MG TAB PO STA (09:10)
[2019-03-11] MEDS ORDERED: NITROGLYCERIN SL TABS 0.4 MG TAB SUBLINGUAL PRN (09:10)
[2019-03-11] MEDS ORDERED: ALPRAZolam 0.25 MG TAB PO PRN (09:10)
[2019-03-11] MEDS ORDERED: ALPRAZolam 0.5 MG TAB PO PRN ×2 (09:10→15:07)
[2019-03-11] MEDS ORDERED: ATORVASTATIN 80 MG TAB PO STA (09:10)
[2019-03-11] MEDS: SPIRONOLACTONE 25 MG TAB PO SCH (09:11)
[2019-03-11] MEDS: ASPIRIN 325 MG TAB PO SCH (09:11)
[2019-03-11] MEDS: amLODIPine 5 MG TAB PO SCH (09:11)
[2019-03-11] MEDS: FUROSEMIDE 10 MG/ML 4 ML VIAL IV SCH (09:15)
--- NOTE | 2019-03-11 09:29 | CONS ---
CONSULTATION CHIEF COMPLAINT: Shortness of breath and chest pain. Mr. Mitchell is a 63-year-old gentleman with extensive cardiac history including multivessel coronary artery disease, status post multivessel angioplasty, ischemic cardiomyopathy with severe LV systolic dysfunction who has refused AICD who was last admitted to hospital in October of 2017, comes to us complaining of shortness of breath and chest tightness. He came in with moderate to severe intensity shortness of breath that was sudden in onset. He was hypoxic and was in respiratory failure on admission. He received a dose of steroid nebulizer, high-flow oxygen, following which his symptoms have improved. The patient since admission has gotten gradually better. His shortness of breath has improved. His chest pain has resolved. At the time of my evaluation, he appears comfortable at rest. His EKG showed wide-complex rhythm with extensive nonspecific ST-T wave changes. First set of troponin was negative. D-dimer is elevated. However, the second set of troponin came back abnormal at 2. Given the known CAD, prior multivessel angioplasty and presentation consistent with unstable angina, I am advising the patient to undergo cardiac catheterization. He had been explained of risks, benefits and alternatives, understood and accepted. Patient will undergo invasive angiography later today as he already had his breakfast. He also has acute exacerbation of chronic systolic heart failure, has pulmonary congestion on chest x-ray. On a CAT scan, he does not have any evidence of pulmonary embolism. Patient had an echo done in October of 2017 that revealed severe LV systolic dysfunction with an ejection fraction of 20% to 25%. PAST MEDICAL HISTORY: Past medical history is significant for coronary artery disease, status post multivessel angioplasty, hypertension, [id number] diabetes. MEDICATIONS: Medications at home include Glucophage, Glucotrol, Norvasc, Aldactone, Zocor, Zestril, Lasix, carvedilol, and Xanax. ALLERGIES: The patient is allergic to CIPRO. FAMILY HISTORY: Family history is negative for premature coronary artery disease. SOCIAL HISTORY: He denies smoking, ETOH abuse or drug abuse. REVIEW OF SYSTEMS: HEENT is unremarkable. CARDIAC: As described above. RESPIRATORY: As described above. GI: Negative. GENITOURINARY: Negative. ALLERGY/IMMUNOLOGY: Negative. SKIN: Negative. MUSCULOSKELETAL: Negative. ENDOCRINE: Negative. DERM: Negative. CONSTITUTIONAL: Negative. ONCOLOGICAL: Negative. Rest of the system review is not relevant. PHYSICAL EXAMINATION: On exam, afebrile. Heart rate is 86 beats per minute. Blood pressure is 135/80. Respiratory rate is 18. Chest exam reveals good air entry bilaterally. I do not hear any crackles or rhonchi. Heart exam reveals first and second heart sounds. Systolic murmur at the left lower sternal border. Abdomen is soft. Examination of extremities reveals 1+ edema. Peripheral pulses are felt. LABS: Labs show that the hemoglobin is 13.8, platelet count is 208, potassium is 4.6. Creatinine is 1.26. The first set of troponin is normal. Second set is elevated at 2. BNP is 1860. ASSESSMENT: 1. Acute non ST-segment elevation myocardial infarction. 2. Acute exacerbation of chronic systolic heart failure. 3. Hypertension. 4. Ischemic cardiomyopathy. The patient declined automated implantable cardioverter- defibrillator. PLAN: Patient will need a cardiac catheterization. I think Dr. Chester had seen him in the past, we will see how long ago it was. If he is following regularly, he will do the cath. If not, I will do it. MMODL / IJN: [id number] /
[2019-03-11 11:56] LABS: Glucose,Whole Blood 425 mg/dL (75-99)
[2019-03-11 12:38] LABS: Glucose,Whole Blood 417 mg/dL (75-99)
[2019-03-11] MEDS ORDERED: HEPARIN SODIUM,PORCINE 5,000 UNIT/ML 1 ML VIAL IV PRN (12:54)
--- NOTE | 2019-03-11 13:33 | P.PN ---
Progress Note - Text Progress Note Date: 03/11/19 1- Acute NSTEMI. 2- Acute Exacerbation of CHF. 3- Hypoxic Respiratory Failure due to above. 4- Poorly Controlled Diabetes Mellitus. 5- Hypomagnesimia. 6- Hypertension, well controlled. In the interim since admission patient troponin turns positive and he was scheduled for cardiac catheterization at noontime. Patient did had CT angiogram around midnight for his the suspected pulmonary embolism which was negative for PE and patient was admitted with uncontrolled diabetes and hyperglycemia and he was given IV steroids along with antibiotics in the emergency department. This caused patient to stay hyperglycemic patient did receive 10 units of subcu NovoLog with no significant improvement of blood sugar and 20 minutes prior to cardiac catheterization. The procedure was postponed until tomorrow morning by cardiology team and patient was started on IV heparin per protocol and cautious IV fluids were given with morning labs ordered to monitor renal function. Morning labs will be ordered including basic panel and magnesium.
[2019-03-11 13:36] LABS: Basophils % (A) 0 %; Eosinophils # (A) 0.1 k/uL (0-0.7); Eosinophils % (A) 1 %; HCT 35.1 % (39.0-53.0); HGB 12.1 gm/dL (13.0-17.5); Lymphocytes # (A) 0.4 k/uL (1.0-4.8); Lymphocytes % (A) 5 %; MCH 32.2 pg (25.0-35.0); MCHC 34.5 g/dL (31.0-37.0); MCV 93.1 fL (80.0-100.0); Mean Platelet Volume 7.7; Monocytes # (A) 0.2 k/uL (0-1.0); Monocytes % (A) 2 %; Neutrophils # (A) 7.5 k/uL (1.3-7.7); Neutrophils % (A) 92 %; Platelet Count 185 k/uL (150-450); Poikilocytosis Slight; RBC 3.77 m/uL (4.30-5.90); RDW 14.8 % (11.5-15.5); WBC 8.2 k/uL (3.8-10.6)
--- NOTE | 2019-03-11 13:43 | ECHOF ---
Referral Reason:chest pain MEASUREMENTS -------- HEIGHT: 152.4 cm WEIGHT: 105.7 kg BP: RVIDd: 3.7 cm (< 3.3) IVSd: 1.3 cm (0.6 - 1.1) LVIDd: 6.0 cm (3.9 - 5.3) LVPWd: 1.7 cm (0.6 - 1.1) IVSs: 1.5 cm LVIDs: 5.8 cm LVPWs: 1.5 cm LA Diam: 5.2 cm (2.7 - 3.8) LAESV Index (A-L): 46.91 ml/m Ao Diam: 3.9 cm (2.0 - 3.7) AV Cusp: 1.8 cm (1.5 - 2.6) LA Diam: 4.9 cm (2.7 - 3.8) MV E Willard: 0.63 m/s MV DecT: 139 ms MV A Willard: 0.60 m/s MV E/A Ratio: 1.05 RAP: 5.00 mmHg RVSP: 7.69 mmHg FINDINGS -------- Sinus rhythm. This was a techncally difficult study with suboptimal views, , Lumason utilized for enhancement of im ages. The left ventricle is mildly dilated. There is mild concentric left ventricular hypertrophy. Ther e is severe global hypokinesis of LV . Overall left ventricular systolic function is severely impai red with, an EF between 25 - 30 %. The right ventricle is normal in size. The left atrium is markedly dilated. LA is severely dilated >40 ml/m2 The right atrial size is normal. 5.0mg OF Lumason UTLIZED: 2 OR MORE WALL SEGMENTS NOT VISUALIZED. The aortic valve is trileaflet, and appears structurally normal. No aortic stenosis or regurgitation. Mild mitral regurgitation is present. Mild tricuspid regurgitation present. Right ventricular systolic pressure is normal at < 35 mmHg. There is no evidence of pulmonary hypertension. There is no pulmonic regurgitation present. The aortic root size is normal. There is no pericardial effusion. CONCLUSIONS -------- 1. Sinus rhythm. 2. This was a techncally difficult study with suboptimal views, , Lumason utilized for enhancement of images. 3. The left ventricle is mildly dilated. 4. There is mild concentric left ventricular hypertrophy. 5. There is severe global hypokinesis of LV . 6. The right ventricle is normal in size. 7. The left atrium is markedly dilated. 8. LA is severely dilated >40 ml/m2 9. The right atrial size is normal. 10. 5.0mg OF Lumason UTLIZED: 2 OR MORE WALL SEGMENTS NOT VISUALIZED. 11. The aortic valve is trileaflet, and appears structurally normal. No aortic stenosis or regurgitat ion. 12. Mild mitral regurgitation is present. 13. Mild tricuspid regurgitation present. 14. Right ventricular systolic pressure is normal at < 35 mmHg. 15. There is no evidence of pulmonary hypertension. 16. There is no pulmonic regurgitation present. 17. The aortic root size is normal. 18. There is no pericardial effusion. FOLDING MACHINE SETTER: Syeda Alvarez RDCS
[2019-03-11] MEDS: HEPARIN SOD,PORK IN 0.45% NACL 25,000 UNIT in 0.45% NACL 1 250ML.BAG IV SCH (14:19)
[2019-03-11 16:43] LABS: Glucose,Whole Blood 378 mg/dL (75-99)
[2019-03-11 18:35] LABS: Hemoglobin A1C 8.6 % (4.0-6.0)
[2019-03-11 20:40] LABS: Glucose,Whole Blood 474 mg/dL (75-99)
[2019-03-11] MEDS: ATORVASTATIN 10 MG TAB PO SCH (21:00)
[2019-03-11 22:42] LABS: Glucose,Whole Blood 406 mg/dL (75-99)
[2019-03-11] MEDS ORDERED: INSULIN ASPART (NovoLOG) 100 UNIT/ML VIAL SQ ONE (22:45)
[2019-03-12 06:20] LABS: Glucose,Whole Blood 352 mg/dL (75-99)
[2019-03-12] MEDS: INSULIN DETEMIR (LEVEMIR) 100 UNIT/ML SYR SQ SCH (06:32)
[2019-03-12] MEDS: INSULIN ASPART (NovoLOG) 100 UNIT/ML VIAL SQ SCH ×5 (06:35→20:30)
[2019-03-12] MEDS: CARVEDILOL 12.5 MG TAB PO SCH ×2 (06:36→16:26)
[2019-03-12 06:48] LABS: Basophils % (A) 0 %; Eosinophils % (A) 0 %; HCT 34.4 % (39.0-53.0); HGB 11.8 gm/dL (13.0-17.5); Lymphocytes # (A) 0.8 k/uL (1.0-4.8); Lymphocytes % (A) 7 %; MCH 32.5 pg (25.0-35.0); MCHC 34.2 g/dL (31.0-37.0); MCV 95.1 fL (80.0-100.0); Mean Platelet Volume 7.1; Monocytes # (A) 0.4 k/uL (0-1.0); Monocytes % (A) 4 %; Neutrophils # (A) 9.2 k/uL (1.3-7.7); Neutrophils % (A) 87 %; Platelet Count 179 k/uL (150-450); Poikilocytosis Slight; RBC 3.62 m/uL (4.30-5.90); WBC 10.5 k/uL (3.8-10.6)
[2019-03-12 06:58] LABS: Calcium 8.8 mg/dL (8.4-10.2); Potassium 4.5 mmol/L (3.5-5.1)
[2019-03-12] MEDS ORDERED: INSULIN DETEMIR (LEVEMIR) 100 UNIT/ML SYR SQ SCH (08:00)
[2019-03-12] MEDS ORDERED: SODIUM CHLORIDE 0.9% 1,000 ML IV SCH (09:45)
[2019-03-12] MEDS: SPIRONOLACTONE 25 MG TAB PO SCH (10:13)
[2019-03-12] MEDS: CITALOPRAM HYDROBROMIDE 20 MG TAB PO SCH (10:13)
[2019-03-12] MEDS: amLODIPine 5 MG TAB PO SCH (10:14)
[2019-03-12] MEDS: LISINOPRIL 20 MG TAB PO SCH (10:14)
--- NOTE | 2019-03-12 11:00 | P.PN ---
Subjective Progress Note Date: 03/12/19 This is a 63-year-old gentleman with extensive cardiac history including multivessel coronary artery disease status post multivessel angioplasty, ischemic cardio myopathy with severe LV dysfunction who has refused AICD in the past when he was in the hospital in October 2017 and was again discussed. He presented to the hospital on this occasion with a fairly sudden onset of severe shortness of breath. He was quite hypoxic and was in respiratory failure on admission here. Patient also had some symptoms of chest discomfort. He was seen in consultation by Dr. Leblanc and advised to undergo cardiac catheterization by Dr. Chester. This was scheduled to be performed today, however his creatinine came back more elevated today than yesterday at 1.3. We will gently hydrate the patient, check his lytes BUN and creatinine in the morning and plan for cardiac catheterization tomorrow if everything is stable. Patient does have a history of diabetes, hypertension, hyperlipidemia. Blood pressure 118/60 with a heart rate in the 70s, 95% on room air. White blood cell count 10.5, hemoglobin 11.8, platelet count 179. Sodium 138, potassium 4.5, BUN 32 and creatinine 1.3. Objective - Vital Signs Vital signs: Vital Signs Temp 98.2 F 03/12/19 08:07 Pulse 78 03/12/19 08:07 Resp 18 03/12/19 08:07 BP 117/67 03/12/19 08:07 Pulse Ox 95 03/12/19 08:07 Intake & Output 03/11/19 03/12/19 03/12/19 18:59 06:59 18:59 Intake Total 1646 273.6 Balance 1646 273.6 Weight 105.9 kg Intake: Intake, IV Titration 500 148.6 Amount Heparin Sod,Pork in 0.45% 148.6 NaCl 25,000 unit In 0.45 % NaCl 1 250ml.bag @ 9.43 UNITS/KG/HR 10.005 mls/ hr IV .Q24H VAN Rx#: [id number] Magnesium Sulfate-D5w Pmx 200 1 gm In Dextrose/Water 1 100ml.bag @ 100 mls/hr IVPB Q1H VAN Rx#: [id number] Sodium Chloride 0.9% 1, 300 000 ml In Empty Bag 1 bag @ 1 ML/KG/HR 106.1 mls/ hr IV .Q9H26M ONE Rx#: [id number] Oral 1146 125 Other: Voiding Method Toilet Toilet # Voids 1 - Exam PHYSICAL EXAMINATION: GENERAL: 63-year-old gentleman in no acute distress at the time of my examination HEENT: Head is atraumatic, normocephalic. Pupils equal, round. Sclera anicteric. Conjunctiva are clear. Mucous membranes of the mouth are moist. Neck is supple. There is no elevated jugular venous pressure. No carotid bruit is heard. HEART EXAMINATION: Heart S1 and S2 systolic murmur is heard at the left sternal border CHEST EXAMINATION: Lungs are clear with fine expiratory wheezes and diminished air entry to the bases. ABDOMEN: Soft, nontender. Bowel sounds are heard. No organomegaly noted. EXTREMITIES: 2+ peripheral pulses with evidence of peripheral edema and no calf tenderness noted. NEUROLOGIC patient is awake, alert and oriented 3 . . - Labs CBC & Chem 7: 03/12/19 06:24 03/12/19 06:24 Labs: Abnormal Lab Results - Last 24 Hours (Table) 03/11/19 03/11/19 03/11/19 Range/Units 06:00 11:13 11:53 RBC (4.30-5.90) m/uL Hgb (13.0-17.5) gm/dL Hct (39.0-53.0) % Neutrophils # (1.3-7.7) k/uL Lymphocytes # (1.0-4.8) k/uL APTT (22.0-30.0) sec BUN (9-20) mg/dL Creatinine (0.66-1.25) mg/dL Glucose (74-99) mg/dL POC Glucose (mg/dL) 425 H (75-99) mg/dL Hemoglobin A1c 8.6 H (4.0-6.0) % Troponin I 2.950 H* (0.000-0.034) ng/mL 03/11/19 03/11/19 03/11/19 Range/Units 12:36 13:10 16:41 RBC 3.77 L (4.30-5.90) m/uL Hgb 12.1 L (13.0-17.5) gm/dL Hct 35.1 L (39.0-53.0) % Neutrophils # (1.3-7.7) k/uL Lymphocytes # 0.4 L (1.0-4.8) k/uL APTT (22.0-30.0) sec BUN (9-20) mg/dL Creatinine (0.66-1.25) mg/dL Glucose (74-99) mg/dL POC Glucose (mg/dL) 417 H 378 H (75-99) mg/dL Hemoglobin A1c (4.0-6.0) % Troponin I (0.000-0.034) ng/mL 03/11/19 03/11/19 03/12/19 Range/Units 20:38 22:40 02:20 RBC (4.30-5.90) m/uL Hgb (13.0-17.5) gm/dL Hct (39.0-53.0) % Neutrophils # (1.3-7.7) k/uL Lymphocytes # (1.0-4.8) k/uL APTT 41.6 H (22.0-30.0) sec BUN (9-20) mg/dL Creatinine (0.66-1.25) mg/dL Glucose (74-99) mg/dL POC Glucose (mg/dL) 474 H 406 H (75-99) mg/dL Hemoglobin A1c (4.0-6.0) % Troponin I (0.000-0.034) ng/mL 03/12/19 03/12/19 03/12/19 Range/Units 06:19 06:24 06:24 RBC 3.62 L (4.30-5.90) m/uL Hgb 11.8 L (13.0-17.5) gm/dL Hct 34.4 L (39.0-53.0) % Neutrophils # 9.2 H (1.3-7.7) k/uL Lymphocytes # 0.8 L (1.0-4.8) k/uL APTT (22.0-30.0) sec BUN 32 H (9-20) mg/dL Creatinine 1.37 H (0.66-1.25) mg/dL Glucose 323 H (74-99) mg/dL POC Glucose (mg/dL) 352 H (75-99) mg/dL Hemoglobin A1c (4.0-6.0) % Troponin I (0.000-0.034) ng/mL 03/12/19 Range/Units 09:00 RBC (4.30-5.90) m/uL Hgb (13.0-17.5) gm/dL Hct (39.0-53.0) % Neutrophils # (1.3-7.7) k/uL Lymphocytes # (1.0-4.8) k/uL APTT 35.5 H (22.0-30.0) sec BUN (9-20) mg/dL Creatinine (0.66-1.25) mg/dL Glucose (74-99) mg/dL POC Glucose (mg/dL) (75-99) mg/dL Hemoglobin A1c (4.0-6.0) % Troponin I (0.000-0.034) ng/mL Microbiology - Last 24 Hours (Table) 03/11/19 01:45 Blood Culture - Preliminary Blood No Growth after 24 hours Assessment and Plan Plan: Assessment and plan #1 non-ST elevation myocardial infarction #2 acute exacerbation of chronic systolic congestive heart failure #3 hypertension #4 hyperlipidemia #5 ischemic cardiomyopathy, patient has denied implantation of an AICD in the past. Plan Patient diuresed well through the night last night, creatinine is up to 1.3 today. We will hold the IV Lasix today, check labs again in the morning and plan for cardiac catheterization tomorrow. DNP note has been reviewed, I agree with a documented findings and plan of care. Patient was seen and examined.
[2019-03-12] MEDS: ASPIRIN 325 MG TAB PO SCH (11:11)
[2019-03-12] MEDS: FUROSEMIDE 10 MG/ML 4 ML VIAL IV SCH ×4 (11:12→20:29)
--- NOTE | 2019-03-12 11:40 | P.PN ---
Subjective Progress Note Date: 03/12/19 Principal diagnosis: 1- Acute NSTEMI. 2- Acute Exacerbation of CHF. 3- Hypoxic Respiratory Failure due to above. 4- Poorly Controlled Diabetes Mellitus. 5- Hypomagnesimia. 6- Hypertension, well controlled. Patient reports that he is doing good his breathing is better and there is no further chest pains. Patient is the still receiving IV heparin according to the protocol. In review of the labs it was noted that patient BUN and creatinine got worse after diuresis although his clinical condition improved. Had a discussion with cardiology nurse practitioner who after discussing with Dr. Hendrix suggested to postpone cardiac For tomorrow because of slightly worsening renal function. Patient's Lasix was held and gentle hydration was started at 60 mL NS/hr. for the past 24 hour patient blood sugar remained an issue most of the time it was running around 400 to 450s and as needed NovoLog insulin was given. This morning when again patient medications were reviewed and he reported that he was started on Novolin NPH 20 units twice a day along with his 2 oral diabetic medications. Patient stated that in July 2018 his glycohemoglobin was 10.6% which came down to 8.4% in January this year after the above medication adjustment. Patient denies chest pain, palpitation, headache, dizziness, likely minutes and denies rest of the review system. Objective - Vital Signs Vital signs: Vital Signs Temp 98.2 F 03/12/19 08:07 Pulse 78 03/12/19 08:07 Resp 18 03/12/19 08:07 BP 117/67 03/12/19 08:07 Pulse Ox 95 03/12/19 08:07 Intake & Output 03/11/19 03/12/19 03/12/19 18:59 06:59 18:59 Intake Total 1646 273.6 Balance 1646 273.6 Weight 105.9 kg Intake: Intake, IV Titration 500 148.6 Amount Heparin Sod,Pork in 0.45% 148.6 NaCl 25,000 unit In 0.45 % NaCl 1 250ml.bag @ 9.43 UNITS/KG/HR 10.005 mls/ hr IV .Q24H VAN Rx#: [id number] Magnesium Sulfate-D5w Pmx 200 1 gm In Dextrose/Water 1 100ml.bag @ 100 mls/hr IVPB Q1H VAN Rx#: [id number] Sodium Chloride 0.9% 1, 300 000 ml In Empty Bag 1 bag @ 1 ML/KG/HR 106.1 mls/ hr IV .Q9H26M ONE Rx#: [id number] Oral 1146 125 Other: Voiding Method Toilet Toilet # Voids 1 - Constitutional Constitutional Comment(s): Patient was very angry after hearing that his cardiac catheterization is again postponed until tomorrow because of his renal function worsening. General appearance: Present: cooperative, no acute distress - EENT Eyes: Present: EOMI, normal appearance ENT: Present: hearing grossly normal, NA/AT - Neck Neck: Present: normal ROM. Absent: lymphadenopathy, rigidity, stridor, thyromegaly - Respiratory Respiratory: bilateral: CTA, negative: rales, rhonchi, wheezing - Cardiovascular Rhythm: regular Heart sounds: normal: S1, S2 Abnormal Heart Sounds: Absent: systolic murmur, diastolic murmur, S3 Gallop, S4 Gallop - Gastrointestinal General gastrointestinal: Present: normal bowel sounds, soft. Absent: dist ended, rigid, tenderness - Integumentary Integumentary: Present: normal, normal turgor - Neurologic Neurologic: Present: CNII-XII intact. Absent: focal deficits - Musculoskeletal Musculoskeletal: Present: gait normal, strength equal bilaterally - Psychiatric Psychiatric Comment(s): Was very angry and agitated upon hearing about his cardiac cath changed to tomorrow but after a lot of counseling he settled down and was more comfortable. Psychiatric: Present: A&O x's 3, appropriate affect - Labs CBC & Chem 7: 03/12/19 06:24 03/12/19 06:24 Labs: Abnormal Lab Results - Last 24 Hours (Table) 03/11/19 03/11/19 03/11/19 Range/Units 06:00 11:13 11:53 RBC (4.30-5.90) m/uL Hgb (13.0-17.5) gm/dL Hct (39.0-53.0) % Neutrophils # (1.3-7.7) k/uL Lymphocytes # (1.0-4.8) k/uL APTT (22.0-30.0) sec BUN (9-20) mg/dL Creatinine (0.66-1.25) mg/dL Glucose (74-99) mg/dL POC Glucose (mg/dL) 425 H (75-99) mg/dL Hemoglobin A1c 8.6 H (4.0-6.0) % Troponin I 2.950 H* (0.000-0.034) ng/mL 03/11/19 03/11/19 03/11/19 Range/Units 12:36 13:10 16:41 RBC 3.77 L (4.30-5.90) m/uL Hgb 12.1 L (13.0-17.5) gm/dL Hct 35.1 L (39.0-53.0) % Neutrophils # (1.3-7.7) k/uL Lymphocytes # 0.4 L (1.0-4.8) k/uL APTT (22.0-30.0) sec BUN (9-20) mg/dL Creatinine (0.66-1.25) mg/dL Glucose (74-99) mg/dL POC Glucose (mg/dL) 417 H 378 H (75-99) mg/dL Hemoglobin A1c (4.0-6.0) % Troponin I (0.000-0.034) ng/mL 03/11/19 03/11/19 03/12/19 Range/Units 20:38 22:40 02:20 RBC (4.30-5.90) m/uL Hgb (13.0-17.5) gm/dL Hct (39.0-53.0) % Neutrophils # (1.3-7.7) k/uL Lymphocytes # (1.0-4.8) k/uL APTT 41.6 H (22.0-30.0) sec BUN (9-20) mg/dL Creatinine (0.66-1.25) mg/dL Glucose (74-99) mg/dL POC Glucose (mg/dL) 474 H 406 H (75-99) mg/dL Hemoglobin A1c (4.0-6.0) % Troponin I (0.000-0.034) ng/mL 03/12/19 03/12/19 03/12/19 Range/Units 06:19 06:24 06:24 RBC 3.62 L (4.30-5.90) m/uL Hgb 11.8 L (13.0-17.5) gm/dL Hct 34.4 L (39.0-53.0) % Neutrophils # 9.2 H (1.3-7.7) k/uL Lymphocytes # 0.8 L (1.0-4.8) k/uL APTT (22.0-30.0) sec BUN 32 H (9-20) mg/dL Creatinine 1.37 H (0.66-1.25) mg/dL Glucose 323 H (74-99) mg/dL POC Glucose (mg/dL) 352 H (75-99) mg/dL Hemoglobin A1c (4.0-6.0) % Troponin I (0.000-0.034) ng/mL 03/12/19 Range/Units 09:00 RBC (4.30-5.90) m/uL Hgb (13.0-17.5) gm/dL Hct (39.0-53.0) % Neutrophils # (1.3-7.7) k/uL Lymphocytes # (1.0-4.8) k/uL APTT 35.5 H (22.0-30.0) sec BUN (9-20) mg/dL Creatinine (0.66-1.25) mg/dL Glucose (74-99) mg/dL POC Glucose (mg/dL) (75-99) mg/dL Hemoglobin A1c (4.0-6.0) % Troponin I (0.000-0.034) ng/mL Microbiology - Last 24 Hours (Table) 03/11/19 01:45 Blood Culture - Preliminary Blood No Growth after 24 hours Assessment and Plan Plan: 1- Acute NSTEMI - continue IV heparin and medical management and await cardiac catheterization in the morning with possible intervention. 2- Acute Exacerbation of CHF - clinically stable on medical management along with diuresis, Lasix held but cardiogenic recommendation will continue on nasal oxygen and other medical management. 3- Hypoxic Respiratory Failure due to above - now stable. 4- YEIMY on CKD - patient will be started on gentle IV hydration and renal function will be monitored. 5- Poorly Controlled Diabetes Mellitus - patient diet is resumed after consideration of today's cardiac catheterization and he will be placed on consistent carbohydrate diet. Patient insulin Levemir will be discontinued and he will be started on Novolin NPH 15 units twice a day that is 75% of his home dose and we will continue insulin aspart/NovoLog sliding scale. Patient oral hypoglycemics along with metformin will be on hold until 48 hours after the contrast procedure. Patient was counseled regarding better diabetes controlled and regular monitoring of his blood glucose level especially when he is on insulin. Patient verbalizes understanding and will try to follow the recommendations. 6- Hypomagnesimia - stable after replacement and yesterday was 2.2, we will check again tomorrow prior to cardiac catheterization. 7- Hypertension, well controlled. Time with Patient: Greater than 30 (More than 50% of which was spent in education and counseling.)
[2019-03-12] MEDS: HEPARIN SOD,PORK IN 0.45% NACL 25,000 UNIT in 0.45% NACL 1 250ML.BAG IV SCH (12:13)
[2019-03-12 12:18] LABS: Glucose,Whole Blood 401 mg/dL (75-99)
--- NOTE | 2019-03-12 16:12 | XR ---
EXAMINATION TYPE: XR chest 1V portable DATE OF EXAM: 03/12/2019 CLINICAL HISTORY: Difficulty breathing progress study. TECHNIQUE: Single AP portable upright view of the chest is obtained. COMPARISON: Chest x-ray and CTA chest from 2 days earlier FINDINGS: Diffuse bilateral reticulonodular opacities are seen. No focal consolidation, pleural effu sondra, or pneumothorax. Cardiomegaly redemonstrated. Diminished inspiration noted. IMPRESSION: Cardiomegaly with reticulonodular interstitial prominence more prominent from prior study suggests worsening interstitial edema and/or atypical infiltrates, , correlate clinically.
[2019-03-12 16:28] LABS: Glucose,Whole Blood 265 mg/dL (75-99)
[2019-03-12 16:57] LABS: Glucose,Whole Blood 303 mg/dL (75-99)
[2019-03-12 17:01] LABS: Hemoglobin A1C 8.6 % (4.0-6.0)
[2019-03-12 17:32] LABS: ABG Base Excess -1.9 mmol/L; ABG HCO3 24 mmol/L (21-25); ABG Oxygen Saturation 98.9 % (94-97); ABG PCO2 47 mmHg (35-45); ABG PH 7.32 (7.35-7.45); ABG PO2 287 mmHg (83-108); ABG TCO2 26 mmol/L (19-24); Allen Test Performed? Yes
[2019-03-12 17:34] LABS: Basophils # (A) 0.2 k/uL (0-0.2); Basophils % (A) 1 %; Eosinophils # (A) 0.1 k/uL (0-0.7); Eosinophils % (A) 1 %; HCT 38.7 % (39.0-53.0); HGB 13.2 gm/dL (13.0-17.5); Lymphocytes # (A) 0.7 k/uL (1.0-4.8); Lymphocytes % (A) 4 %; MCH 32.3 pg (25.0-35.0); MCHC 34.1 g/dL (31.0-37.0); MCV 94.9 fL (80.0-100.0); Mean Platelet Volume 7.4; Monocytes # (A) 0.8 k/uL (0-1.0); Monocytes % (A) 4 %; Neutrophils # (A) 18.2 k/uL (1.3-7.7); Neutrophils % (A) 91 %; Platelet Count 263 k/uL (150-450); Poikilocytosis Slight; RBC 4.08 m/uL (4.30-5.90); RDW 15.1 % (11.5-15.5); WBC 20.1 k/uL (3.8-10.6)
[2019-03-12 17:45] LABS: Magnesium 2.2 mg/dL (1.6-2.3); Potassium 4.7 mmol/L (3.5-5.1)
[2019-03-12] MEDS ORDERED: HEPARIN SODIUM,PORCINE 5,000 UNIT/ML 1 ML VIAL IV STA (19:13)
[2019-03-12 20:16] LABS: Glucose,Whole Blood 208 mg/dL (75-99)
[2019-03-12] MEDS: ATORVASTATIN 10 MG TAB PO SCH (20:28)
[2019-03-12] MEDS: INSULIN NPH 300 UNIT/3 ML VIAL SQ SCH (20:50)
[2019-03-12] MEDS ORDERED: INSULIN NPH 300 UNIT/3 ML VIAL SQ SCH (21:00)
[2019-03-12] MEDS ORDERED: AZITHROMYCIN 500 MG in SODIUM CHLORIDE 0.9% 250 ML IVPB SCH (21:00)
[2019-03-13] MEDS: HEPARIN SOD,PORK IN 0.45% NACL 25,000 UNIT in 0.45% NACL 1 250ML.BAG IV SCH ×2 (02:03→15:09)
[2019-03-13 03:21] LABS: Basophils # (A) 0.1 k/uL (0-0.2); Basophils % (A) 0 %; Eosinophils # (A) 0.1 k/uL (0-0.7); Eosinophils % (A) 1 %; HCT 35.8 % (39.0-53.0); Lymphocytes # (A) 1.2 k/uL (1.0-4.8); Lymphocytes % (A) 11 %; MCH 32.2 pg (25.0-35.0); MCHC 33.6 g/dL (31.0-37.0); MCV 95.7 fL (80.0-100.0); Mean Platelet Volume 7.1; Monocytes # (A) 0.5 k/uL (0-1.0); Monocytes % (A) 5 %; Neutrophils # (A) 9.1 k/uL (1.3-7.7); Neutrophils % (A) 82 %; Platelet Count 183 k/uL (150-450); Poikilocytosis Slight; RBC 3.74 m/uL (4.30-5.90); RDW 15.2 % (11.5-15.5); WBC 11.2 k/uL (3.8-10.6)
[2019-03-13 03:58] LABS: Calcium 8.7 mg/dL (8.4-10.2); Magnesium 2.3 mg/dL (1.6-2.3); Phosphorus 4.4 mg/dL (2.5-4.5)
[2019-03-13 03:59] LABS: Potassium 4.7 mmol/L (3.5-5.1)
[2019-03-13 06:34] LABS: Glucose,Whole Blood 169 mg/dL (75-99)
[2019-03-13] MEDS: INSULIN ASPART (NovoLOG) 100 UNIT/ML VIAL SQ SCH ×4 (06:48→21:30)
[2019-03-13] MEDS ORDERED: INSULIN DETEMIR (LEVEMIR) 100 UNIT/ML SYR SQ SCH (07:00)
[2019-03-13] MEDS: ASPIRIN 81 MG PO SCH (07:47)
[2019-03-13] MEDS: LISINOPRIL 20 MG TAB PO SCH (07:47)
[2019-03-13] MEDS: SPIRONOLACTONE 25 MG TAB PO SCH (07:47)
[2019-03-13] MEDS: FUROSEMIDE 10 MG/ML 4 ML VIAL IV SCH ×2 (07:47→21:29)
[2019-03-13] MEDS: amLODIPine 5 MG TAB PO SCH (07:48)
[2019-03-13] MEDS: CITALOPRAM HYDROBROMIDE 20 MG TAB PO SCH (07:48)
[2019-03-13] MEDS: CARVEDILOL 12.5 MG TAB PO SCH ×2 (07:48→17:42)
--- NOTE | 2019-03-13 09:26 | XR ---
EXAMINATION TYPE: XR chest 1V portable DATE OF EXAM: 03/13/2019 COMPARISON: 03/12/2019 HISTORY: Difficulty breathing TECHNIQUE: Single frontal view of the chest is obtained. FINDINGS: Diffuse bilateral reticulonodular opacities are seen. No pleural effusion, or pneumothorax . Cardiomegaly redemonstrated. Diminished inspiration noted. Left basilar consolidation noted. IMPRESSION: Cardiomegaly with reticulonodular interstitial prominence suggests worsening interstitial edema and/or atypical infiltrates, correlate clinically. Left basilar infiltrate noted.
--- NOTE | 2019-03-13 09:29 | P.CNPUL ---
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 diuresis overnight and this morning he is feeling much better. No angina. The ultimate plan is to do a cardiac catheterization as the patient had an acute non-STEMI. His ejection fraction 25-30%. Currently on 4 L about 2 by nasal cannula. On examination still has some bilateral basilar crackles. He had a fever on and off and for that reason is covered with broad-spectrum antibiotics. Pneumonia is doubtful at this stage.
[2019-03-13 10:02] LABS: Appearance,Urine Clear (Clear); Bilirubin,Urine Negative (Negative); Blood,Urine Trace (Negative); Color,Urine Light Yellow; Glucose,Urine (UA) Negative (Negative); Hyaline Casts,Urine 1 /lpf (0-2); Ketones,Urine Negative (Negative); Leukocyte Esterase,Urine Negative (Negative); Nitrite,Urine Negative (Negative); PH, Urine 5.5 (5.0-8.0); Protein,Urine Negative (Negative); RBC,Urine 7 /hpf (0-5); Specific Gravity,Urine 1.007 (1.001-1.035); Squamous Epithelial Cell,Urine <1 /hpf (0-4); Urobilinogen,Urine <2.0 mg/dL (<2.0)
[2019-03-13] MEDS: INSULIN NPH 300 UNIT/3 ML VIAL SQ SCH ×2 (10:07→21:30)
--- NOTE | 2019-03-13 10:07 | P.PN ---
Subjective Progress Note Date: 03/13/19 Patient is feeling fairly well today. BiPAP was discontinued around 6 AM this morning. He is currently on 6 L of oxygen via nasal cannula. Patient himself denies any shortness of breath at this time. No chest pain. No fevers or chills. Patient informed me that he never uses oxygen at home. Objective - Vital Signs Vital signs: Vital Signs Temp 98.8 F 03/13/19 08:49 Pulse 81 03/13/19 09:00 Resp 11 L 03/13/19 09:00 BP 148/94 03/13/19 09:00 Pulse Ox 92 L 03/13/19 09:00 Intake & Output 03/12/19 03/13/19 03/13/19 18:59 06:59 18:59 Intake Total 905.4 587.752 Output Total 1410 1730 830 Balance -504.6 -1142.248 -830 Weight 108.7 kg Intake: IV 300 Azithromycin 500 mg In 250 Sodium Chloride 0.9% 250 ml @ 250 mls/hr IVPB HS VAN Rx#:[id number] cefTRIAXone 1 gm In 50 Sodium Chloride 0.9% 50 ml @ 100 mls/hr IVPB Q24H VAN Rx#:[id number] Intake, IV Titration 461.4 287.752 Amount Heparin Sod,Pork in 0.45% 101.4 287.752 NaCl 25,000 unit In 0.45 % NaCl 1 250ml.bag @ 9.43 UNITS/KG/HR 10.005 mls/ hr IV .Q24H VAN Rx#: [id number] Sodium Chloride 0.9% 1, 360 000 ml @ 60 mls/hr IV . [id number] VAN Rx#:[id number] Oral 444 Output: Urine 1410 1730 830 Other: Voiding Method Indwelling Catheter Indwelling Catheter - Exam General: The patient is awake and alert, in no distress, and does not appear acutely ill. Eye: extra-ocular movements are intact; there is normal conjunctiva bilaterally. Cardiovascular: Normal S1-S2, no S3-S4, no murmurs. Respiratory: Lungs with bibasilar crackles Gastrointestinal: Abdomen is soft, nontender, nondistended, Musculoskeletal: Normal ROM, no tenderness, There is no pedal edema. Neurological: There are no obvious motor or sensory deficits. Speech is normal. Skin: Skin is warm and dry and no rashes or lesions are noted. - Labs CBC & Chem 7: 03/13/19 02:46 03/13/19 02:46 Labs: Abnormal Lab Results - Last 24 Hours (Table) 03/12/19 03/12/19 03/12/19 Range/Units 09:00 12:16 16:16 WBC (3.8-10.6) k/uL RBC (4.30-5.90) m/uL Hgb (13.0-17.5) gm/dL Hct (39.0-53.0) % Neutrophils # (1.3-7.7) k/uL Lymphocytes # (1.0-4.8) k/uL APTT (22.0-30.0) sec ABG pH (7.35-7.45) ABG pCO2 (35-45) mmHg ABG pO2 (83-108) mmHg ABG Total CO2 (19-24) mmol/L ABG O2 Saturation (94-97) % BUN (9-20) mg/dL Creatinine (0.66-1.25) mg/dL Glucose (74-99) mg/dL POC Glucose (mg/dL) 401 H 265 H (75-99) mg/dL Hemoglobin A1c 8.6 H (4.0-6.0) % Troponin I (0.000-0.034) ng/mL 03/12/19 03/12/19 03/12/19 Range/Units 16:56 17:10 17:10 WBC 20.1 H (3.8-10.6) k/uL RBC 4.08 L (4.30-5.90) m/uL Hgb (13.0-17.5) gm/dL Hct 38.7 L (39.0-53.0) % Neutrophils # 18.2 H (1.3-7.7) k/uL Lymphocytes # 0.7 L (1.0-4.8) k/uL APTT (22.0-30.0) sec ABG pH (7.35-7.45) ABG pCO2 (35-45) mmHg ABG pO2 (83-108) mmHg ABG Total CO2 (19-24) mmol/L ABG O2 Saturation (94-97) % BUN 33 H (9-20) mg/dL Creatinine 1.41 H (0.66-1.25) mg/dL Glucose 265 H (74-99) mg/dL POC Glucose (mg/dL) 303 H (75-99) mg/dL Hemoglobin A1c (4.0-6.0) % Troponin I (0.000-0.034) ng/mL 03/12/19 03/12/19 03/12/19 Range/Units 17:10 17:24 20:14 WBC (3.8-10.6) k/uL RBC (4.30-5.90) m/uL Hgb (13.0-17.5) gm/dL Hct (39.0-53.0) % Neutrophils # (1.3-7.7) k/uL Lymphocytes # (1.0-4.8) k/uL APTT (22.0-30.0) sec ABG pH 7.32 L (7.35-7.45) ABG pCO2 47 H (35-45) mmHg ABG pO2 287 H (83-108) mmHg ABG Total CO2 26 H (19-24) mmol/L ABG O2 Saturation 98.9 H (94-97) % BUN (9-20) mg/dL Creatinine (0.66-1.25) mg/dL Glucose (74-99) mg/dL POC Glucose (mg/dL) 208 H (75-99) mg/dL Hemoglobin A1c (4.0-6.0) % Troponin I 0.853 H* (0.000-0.034) ng/mL 03/13/19 03/13/19 03/13/19 Range/Units 02:46 02:46 02:46 WBC 11.2 H (3.8-10.6) k/uL RBC 3.74 L (4.30-5.90) m/uL Hgb 12.0 L (13.0-17.5) gm/dL Hct 35.8 L (39.0-53.0) % Neutrophils # 9.1 H (1.3-7.7) k/uL Lymphocytes # (1.0-4.8) k/uL APTT 113.6 H* (22.0-30.0) sec ABG pH (7.35-7.45) ABG pCO2 (35-45) mmHg ABG pO2 (83-108) mmHg ABG Total CO2 (19-24) mmol/L ABG O2 Saturation (94-97) % BUN 32 H (9-20) mg/dL Creatinine 1.32 H (0.66-1.25) mg/dL Glucose 148 H (74-99) mg/dL POC Glucose (mg/dL) (75-99) mg/dL Hemoglobin A1c (4.0-6.0) % Troponin I (0.000-0.034) ng/mL 03/13/19 Range/Units 06:33 WBC (3.8-10.6) k/uL RBC (4.30-5.90) m/uL Hgb (13.0-17.5) gm/dL Hct (39.0-53.0) % Neutrophils # (1.3-7.7) k/uL Lymphocytes # (1.0-4.8) k/uL APTT (22.0-30.0) sec ABG pH (7.35-7.45) ABG pCO2 (35-45) mmHg ABG pO2 (83-108) mmHg ABG Total CO2 (19-24) mmol/L ABG O2 Saturation (94-97) % BUN (9-20) mg/dL Creatinine (0.66-1.25) mg/dL Glucose (74-99) mg/dL POC Glucose (mg/dL) 169 H (75-99) mg/dL Hemoglobin A1c (4.0-6.0) % Troponin I (0.000-0.034) ng/mL Microbiology - Last 24 Hours (Table) 03/11/19 01:45 Blood Culture - Preliminary Blood No Growth after 48 hours Assessment and Plan Assessment: 1- Acute NSTEMI: Seen and evaluated by cardiology. Currently on IV heparin. Managed medically. Currently cardiology deciding on left heart catheterization with this and benefit in setting of acute kidney injury. Appreciate cardiology recommendations. 2- Acute Exacerbation of CHF systolic: Echocardiogram showed ejection fraction of 25-30%. Currently on IV Lasix 40 mg twice daily. We will continue to monitor closely. 3- Hypoxic Respiratory Failure due to above: Secondary to pulmonary edema. Required BiPAP overnight. Currently on nasal cannula 6 L. Wean off O2 as tolerated for O2 sat greater than 90%. Appreciate pulmonology recommendations. 4- suspected pneumonia, started on IV antibiotic with azithromycin and cef triaxone. Pro-calcitonin pending. 5- Poorly Controlled Diabetes Mellitus: A1c 8.6. Currently on NPH 15 units twice daily plus sliding scale. We will continue to monitor closely. 6- Hypomagnesimia: Replace, currently magnesium level within normal range 7- Hypertension, well controlled Today, I reviewed his medication list and lab work results. We will continue current regimen. Awaiting cardiology decision regarding left heart catheterization. Appreciate beauty consultant's recommendations. Repeat lab work in the morning.
[2019-03-13 11:31] LABS: Glucose,Whole Blood 295 mg/dL (75-99)
--- NOTE | 2019-03-13 12:21 | PN ---
PROGRESS NOTE This is a 63-year-old gentleman with history of ischemic cardiomyopathy with severe LV dysfunction, chronic systolic heart failure, coronary artery disease, who was admitted to the hospital with non ST-segment elevation [place] and was supposed to undergo cardiac catheterization. Dr. Chester, his primary felt finisher, was going to do a catheterization but postponed it as patient had renal insufficiency and some worsening of his creatinine. Yesterday, patient went into acute pulmonary edema and had to be transferred to ICU. This morning he is much better. He is off the BiPAP, is urinating well. He is on IV Lasix 40 b.i.d. Denies any chest pain. He wishes to go through cardiac cath and understands the contrast induced nephropathy risks. I am going to do the cath on him tomorrow. PHYSICAL EXAMINATION: On exam, heart rate is 80 beats per minute. Blood pressure is 110/74. Respiratory rate is 18. Chest exam reveals occasional crackles bilaterally. Heart exam reveals first and second heart sounds. No gallop. Has a systolic murmur at the left lower sternal border. Abdomen is soft. Exam of extremities reveals mild edema. LABS: Labs show a hemoglobin of 12, platelet count is 183. Potassium is 4.7. Creatinine is 1.3, BUN is 32. Troponin yesterday was 0.8. ASSESSMENT: 1. Acute non ST-segment elevation myocardial infarction. 2. Acute exacerbation of chronic systolic heart failure. 3. Chronic renal insufficiency. PLAN: I will continue with IV Lasix, Norvasc, Lipitor, Coreg, insulin, and Aldactone. The patient will undergo cardiac catheterization tomorrow if he is stable. MMODL / IJN: [id number] /
[2019-03-13 16:59] LABS: Glucose,Whole Blood 237 mg/dL (75-99)
[2019-03-13 20:28] LABS: Glucose,Whole Blood 234 mg/dL (75-99)
[2019-03-13 21:21] LABS: Glucose,Whole Blood 237 mg/dL (75-99)
[2019-03-13] MEDS: ATORVASTATIN 10 MG TAB PO SCH (21:27)
[2019-03-13] MEDS: AZITHROMYCIN 500 MG TAB PO SCH (21:27)
[2019-03-13] MEDS ORDERED: MAG HYDROX/AL HYDROX/SIMETH 30 ML CUP PO PRN (22:19)
[2019-03-13] MEDS ORDERED: INSULIN NPH 300 UNIT/3 ML VIAL SQ ONE (22:20)
[2019-03-14 02:54] LABS: Glucose,Whole Blood 205 mg/dL (75-99)
[2019-03-14] MEDS: PANTOPRAZOLE 40 MG TABLET PO SCH ×3 (02:57→17:05)
[2019-03-14] MEDS: HEPARIN SOD,PORK IN 0.45% NACL 25,000 UNIT in 0.45% NACL 1 250ML.BAG IV SCH (05:10)
[2019-03-14 06:13] LABS: Basophils % (A) 0 %; Eosinophils # (A) 0.1 k/uL (0-0.7); Eosinophils % (A) 2 %; HCT 32.5 % (39.0-53.0); HGB 11.4 gm/dL (13.0-17.5); Lymphocytes % (A) 13 %; MCH 32.8 pg (25.0-35.0); MCHC 35.2 g/dL (31.0-37.0); MCV 93.2 fL (80.0-100.0); Mean Platelet Volume 6.8; Monocytes # (A) 0.4 k/uL (0-1.0); Monocytes % (A) 5 %; Neutrophils # (A) 5.9 k/uL (1.3-7.7); Neutrophils % (A) 79 %; Platelet Count 169 k/uL (150-450); Poikilocytosis Slight; RBC 3.49 m/uL (4.30-5.90); WBC 7.5 k/uL (3.8-10.6)
--- NOTE | 2019-03-14 06:22 | XR ---
EXAMINATION TYPE: XR chest 1V portable DATE OF EXAM: 03/14/2019 HISTORY: shortness of breath. REFERENCE: Previous study dated 03/13/2019. FINDINGS: The heart remains mildly enlarged. There is improved aeration at the left lung base. Pulmon guillermo vasculature is normal. Pleural spaces are clear. IMPRESSION: RESOLVING CHANGES OF PULMONARY EDEMA. Previous study dated 03/13/2019
[2019-03-14 06:33] LABS: Calcium 8.6 mg/dL (8.4-10.2); Potassium 4.2 mmol/L (3.5-5.1)
[2019-03-14 06:44] LABS: Glucose,Whole Blood 197 mg/dL (75-99)
[2019-03-14] MEDS: CARVEDILOL 12.5 MG TAB PO SCH ×2 (06:51→17:05)
[2019-03-14] MEDS: INSULIN ASPART (NovoLOG) 100 UNIT/ML VIAL SQ SCH ×4 (06:52→21:19)
[2019-03-14] MEDS: SPIRONOLACTONE 25 MG TAB PO SCH (08:19)
[2019-03-14] MEDS: amLODIPine 5 MG TAB PO SCH (08:19)
[2019-03-14] MEDS: LISINOPRIL 20 MG TAB PO SCH (08:19)
[2019-03-14] MEDS: CITALOPRAM HYDROBROMIDE 20 MG TAB PO SCH (08:19)
[2019-03-14] MEDS: ASPIRIN 81 MG PO SCH (08:19)
[2019-03-14] MEDS: FUROSEMIDE 10 MG/ML 4 ML VIAL IV SCH ×2 (08:19→21:21)
--- NOTE | 2019-03-14 09:14 | P.PN ---
Subjective Progress Note Date: 03/14/19 This is a 63-year-old white male, with past medical history of poorly-controlle d diabetes mellitus, ischemic cardiomyopathy, chronic congestive heart failure with systolic dysfunction, hypertension, hyperlipidemia, 3 previous episodes of myocardial infarction, coronary artery disease with previous stenting, who presented to the emergency department on 03/10/2017 with complaints of sharp pain in both shoulders, traveling down his left arm, and traveling over to his right arm lasting for 2 hours. This pain was similar to the pain she previously had with his previous heart attacks, and patient decided to come into the hospital. Also reported some numbness and tingling in his bilateral hands. Denies any fever or chills prior to admission, denied any shortness of breath, no cough, denied any swelling in his lower extremities. No abdominal pain, no lightheadedness. Patient travels a lot for his work, recently took a job in [employer] but up until then used to travel and be gone from his residence up to 3 months at a time for work. His last stress test was 2 years ago and was reportedly negative, does not have an established experience designer locally or in another area. Denies any history of chronic lung disease, he is a lifetime nonsmoker. He had previously been offered AICD placement but he refused related for frequent travel and extra hassle with security at airports. EKG mention showed a wide-complex rhythm with extensive nonspecific ST and T wave changes. First set of troponins was negative, the second troponin came back abnormal at 2, cardiology was consulted and was planned and on cardiac catheterization today. D-dimer was elevated and CTA chest showed no evidence of pulmonary embolism, and showed mild pulmonary interstitial infiltrates and small pleural effusions. Chest x-ray on admission showed mild coarsening of the lung markings, and slight blunting of posterior costophrenic angles. Echocardiogram showed severely impaired left ventricular systolic function with an EF of 25- 30%, mild mitral, mild tricuspid regurgitation, no PAH, no pericardial effusion. Patient was apparently being pre-hydrated related to his abnormal renal function. Yesterday in the afternoon on 03/12/2019 patient developed acute dyspnea, and hypoxemia, and A-team was called, repeat chest x-ray was obtained showing reticulonodular interstitial prominence more prominent from previous study suggesting worsening interstitial edema. Patient was given 80 mg of Lasix , and placed on BiPAP support, ABGs were obtained showing pO2 of 287, pCO2 of 47, and pH of 7.32, this was done on FiO2 of 100%. She was transferred to the intensive care unit, started diuresing, and overnight he produced over 3100 mL in urine output, this morning he seen in follow-up, he was switched to nasal cannula, currently on 6 L of oxygen with a pulse ox of 92%, he is feeling better, is in no respiratory distress. He is making urine in the order of 6250 ML per hour, lung sounds are very diminished, with crackles throughout. This morning's lab work has been reviewed showing improvement in his white blood cell count down to 11.2 from 20.1 on yesterday's labs, hemoglobin is 12.0, joints are within normal limits, BUN is 32, creatinine is 1.32, slightly improved from yesterday, third and fourth sets of troponins came back at 2.9 and 0.853 respectively. Denies episodes of chest pain overnight, he is awake and alert, no questions appropriately, repeat chest x-ray was completed this morning showing improvement in the interstitial infiltrates. On 03/14/2019 on seeing this patient for a follow-up. The patient is calm and comfortable. No chest pain. No angina. He was diuresed adequately with IV Lasix and today's creatinine is at 1.29 with a BUN of 30. He is less short of b reath. Currently is on 7 L of oxygen by nasal cannula and his current pulse ox is 93%. He is afebrile with temperature 98.6. BP is 133/76. The patient remains on IV heparin. The patient remains on 640 mg IV every 12 hours. Antibiotic coverage is also being utilized with a combination of Rocephin and Zithromax. He is on aspirin. He is on beta blockers in the form of Coreg 25 mg twice a day and Aldactone in addition to lisinopril 20 mg by mouth daily. The plan is to proceed with a cardiac catheterization today. No other significant events overnight. X-ray showing improvement in the pulmonary edema and resolving pulmonary edema that was essentially related to congestion heart failure and fluid overload as the patient was being given IV fluids in preparation for cardiac catheterization. Currently IV fluid is at KVO. Objective - Vital Signs Vital signs: Vital Signs Temp 98.6 F 03/14/19 08:00 Pulse 66 11/09/19 08:00 Resp 16 03/14/19 08:00 BP 136/86 03/14/19 08:00 Pulse Ox 96 03/14/19 08:00 Intake & Output 03/13/19 03/14/19 03/14/19 18:59 06:59 18:59 Intake Total 183.375 300 Output Total 1743 1765 150 Balance -1559.625 -1465 -150 Weight 105.6 kg Intake: IV 50 cefTRIAXone 1 gm In 50 Sodium Chloride 0.9% 50 ml @ 100 mls/hr IVPB Q24H VAN Rx#:[id number] Intake, IV Titration 183.375 250 Amount Heparin Sod,Pork in 0.45% 183.375 250 NaCl 25,000 unit In 0.45 % NaCl 1 250ml.bag @ 9.43 UNITS/KG/HR 10.005 mls/ hr IV .Q24H VAN Rx#: [id number] Output: Urine 1743 1765 150 Other: Voiding Method Indwelling Catheter Indwelling Catheter # Bowel Movements 1 - Exam GENERAL EXAM: Alert, very pleasant, 63-year-old white male has been taken off BiPAP support earlier this morning, placed on nasal cannula currently at 6 L/m, with a pulse ox of 92%, has mild conversational dyspnea, but no acute distress HEAD: Normocephalic/atraumatic. EYES: Normal reaction of pupils, equal size. Conjunctiva pink, sclera white. NOSE: Clear with pink turbinates. THROAT: No erythema or exudates. NECK: No masses, no JVD, no thyroid enlargement, no adenopathy. CHEST: No chest wall deformity. Symmetrical expansion. LUNGS: Diminished air entry with fine crackles throughout the lung laboy, no wheeze, rhonchi or dullness. CVS: Regular rate and rhythm, normal S1 and S2, no gallops, no murmurs, no rubs ABDOMEN: Soft, nontender. No hepatosplenomegaly, normal bowel sounds, no guarding or rigidity. EXTREMITIES: No clubbing, mild pretibial edema left greater than right, no cyanosis, 2+ pulses and upper and lower extremities. MUSCULOSKELETAL: Muscle strength and tone normal. SPINE: No scoliosis or deformity SKIN: No rashes CENTRAL NERVOUS SYSTEM: Alert and oriented -3. No focal deficits, tone is normal in all 4 extremities. PSYCHIATRIC: Alert and oriented -3. Appropriate affect. Intact judgment and insight. - Labs CBC & Chem 7: 03/14/19 05:49 03/14/19 05:49 Labs: Abnormal Lab Results - Last 24 Hours (Table) 03/13/19 03/13/19 03/13/19 Range/Units 09:04 10:53 10:53 RBC (4.30-5.90) m/uL Hgb (13.0-17.5) gm/dL Hct (39.0-53.0) % APTT 54.6 H (22.0-30.0) sec Carbon Dioxide (22-30) mmol/L BUN (9-20) mg/dL Creatinine (0.66-1.25) mg/dL Glucose (74-99) mg/dL POC Glucose (mg/dL) (75-99) mg/dL Procalcitonin 0.58 H (0.02-0.09) ng/mL Urine Blood Trace H (Negative) Urine RBC 7 H (0-5) /hpf 03/13/19 03/13/19 03/13/19 Range/Units 11:29 16:48 20:26 RBC (4.30-5.90) m/uL Hgb (13.0-17.5) gm/dL Hct (39.0-53.0) % APTT (22.0-30.0) sec Carbon Dioxide (22-30) mmol/L BUN (9-20) mg/dL Creatinine (0.66-1.25) mg/dL Glucose (74-99) mg/dL POC Glucose (mg/dL) 295 H 237 H 234 H (75-99) mg/dL Procalcitonin (0.02-0.09) ng/mL Urine Blood (Negative) Urine RBC (0-5) /hpf 03/13/19 03/14/19 03/14/19 Range/Units 21:19 02:53 05:49 RBC 3.49 L (4.30-5.90) m/uL Hgb 11.4 L (13.0-17.5) gm/dL Hct 32.5 L (39.0-53.0) % APTT (22.0-30.0) sec Carbon Dioxide (22-30) mmol/L BUN (9-20) mg/dL Creatinine (0.66-1.25) mg/dL Glucose (74-99) mg/dL POC Glucose (mg/dL) 237 H 205 H (75-99) mg/dL Procalcitonin (0.02-0.09) ng/mL Urine Blood (Negative) Urine RBC (0-5) /hpf 03/14/19 03/14/19 03/14/19 Range/Units 05:49 05:49 06:42 RBC (4.30-5.90) m/uL Hgb (13.0-17.5) gm/dL Hct (39.0-53.0) % APTT 56.3 H (22.0-30.0) sec Carbon Dioxide 31 H (22-30) mmol/L BUN 30 H (9-20) mg/dL Creatinine 1.29 H (0.66-1.25) mg/dL Glucose 182 H (74-99) mg/dL POC Glucose (mg/dL) 197 H (75-99) mg/dL Procalcitonin (0.02-0.09) ng/mL Urine Blood (Negative) Urine RBC (0-5) /hpf Microbiology - Last 24 Hours (Table) 03/11/19 01:45 Blood Culture - Preliminary Blood No Growth after 72 hours 03/12/19 20:22 Blood Culture - Preliminary Blood No Growth after 24 hours 03/12/19 20:30 Blood Culture - Preliminary Blood No Growth after 24 hours Assessment and Plan Plan: #1. Acute hypoxic respiratory failure related to acute interstitial edema, and acute exacerbation of chronic congestive heart failure with systolic dysfunction. The patient fluid with diuretics. IV fluids are currently at KVO. The patient was given Lasix 40 mg IV push every 12 hours and he is a negative fluid balance. He is currently on 7 L of oxygen by nasal cannula and is off the BiPAP and is breathing more comfortably in the chest x-ray showing resolving pulmonary edema. #2. Acute non-ST elevated myocardial infarction, currently on a combination of aspirin and IV heparin and the patient is going to have a cardiac catheterization today #3. Leukocytosis, of unknown etiology, rule out infectious process #4. Acute kidney injury him a improving and the creatinine is down to 1.2 #5. Ischemic cardiomyopathy, with a EF of 25-30%, patient had previously refu sed AICD placement #6. Coronary artery disease with previous stenting #7. Previous episodes of myocardial infarction 3 in the past #8. Poorly controlled diabetes mellitus type 2 #9. Lifetime nonsmoker, no history of chronic lung disease #10. Hypertension #11. Hyperlipidemia The Lasix to 40 Mg Every 24 Hours. Monitor Renal Function. Continue Aspirin. Continue IV Heparin. Wean down the FiO2 As Tolerated to Maintain a Saturation above 90% and Proceed with Cardiac Catheterization. The patient is on long acting NPH insulin for blood sugar control in addition to sliding scale c overage.
[2019-03-14] MEDS: INSULIN NPH 300 UNIT/3 ML VIAL SQ SCH ×2 (10:40→21:20)
--- NOTE | 2019-03-14 11:40 | P.PN ---
Subjective Progress Note Date: 03/14/19 Patient is feeling fairly well today. He still requiring 7 L of oxygen by nasal cannula. He denies any shortness of breath or chest pain. Creatinine slightly better today. No acute events overnight reported to me by nursing staff. Objective - Vital Signs Vital signs: Vital Signs Temp 98.6 F 03/14/19 08:00 Pulse 59 L 03/14/19 11:00 Resp 19 03/14/19 11:00 BP 133/82 03/14/19 11:00 Pulse Ox 94 L 03/14/19 11:00 Intake & Output 03/13/19 03/14/19 03/14/19 18:59 06:59 18:59 Intake Total 183.375 300 Output Total 1743 1765 900 Balance -1559.625 -1465 -900 Weight 105.6 kg Intake: IV 50 cefTRIAXone 1 gm In 50 Sodium Chloride 0.9% 50 ml @ 100 mls/hr IVPB Q24H VAN Rx#:[id number] Intake, IV Titration 183.375 250 Amount Heparin Sod,Pork in 0.45% 183.375 250 NaCl 25,000 unit In 0.45 % NaCl 1 250ml.bag @ 9.43 UNITS/KG/HR 10.005 mls/ hr IV .Q24H VAN Rx#: [id number] Output: Urine 1743 1765 900 Other: Voiding Method Indwelling Catheter Indwelling Catheter Indwelling Catheter # Bowel Movements 1 - Exam General: The patient is awake and alert, in no distress, and does not appear acutely ill. Eye: extra-ocular movements are intact; there is normal conjunctiva bilaterally. Cardiovascular: Normal S1-S2, no S3-S4, no murmurs. Respiratory: Lungs with bibasilar crackles Gastrointestinal: Abdomen is soft, nontender, nondistended, Musculoskeletal: Normal ROM, no tenderness, There is no pedal edema. Neurological: There are no obvious motor or sensory deficits. Speech is normal. Skin: Skin is warm and dry and no rashes or lesions are noted. - Labs CBC & Chem 7: 03/14/19 05:49 03/14/19 05:49 Labs: Abnormal Lab Results - Last 24 Hours (Table) 03/13/19 03/13/19 03/13/19 Range/Units 10:53 16:48 20:26 RBC (4.30-5.90) m/uL Hgb (13.0-17.5) gm/dL Hct (39.0-53.0) % APTT (22.0-30.0) sec Carbon Dioxide (22-30) mmol/L BUN (9-20) mg/dL Creatinine (0.66-1.25) mg/dL Glucose (74-99) mg/dL POC Glucose (mg/dL) 237 H 234 H (75-99) mg/dL Procalcitonin 0.58 H (0.02-0.09) ng/mL 03/13/19 03/14/19 03/14/19 Range/Units 21:19 02:53 05:49 RBC 3.49 L (4.30-5.90) m/uL Hgb 11.4 L (13.0-17.5) gm/dL Hct 32.5 L (39.0-53.0) % APTT (22.0-30.0) sec Carbon Dioxide (22-30) mmol/L BUN (9-20) mg/dL Creatinine (0.66-1.25) mg/dL Glucose (74-99) mg/dL POC Glucose (mg/dL) 237 H 205 H (75-99) mg/dL Procalcitonin (0.02-0.09) ng/mL 03/14/19 03/14/19 03/14/19 Range/Units 05:49 05:49 06:42 RBC (4.30-5.90) m/uL Hgb (13.0-17.5) gm/dL Hct (39.0-53.0) % APTT 56.3 H (22.0-30.0) sec Carbon Dioxide 31 H (22-30) mmol/L BUN 30 H (9-20) mg/dL Creatinine 1.29 H (0.66-1.25) mg/dL Glucose 182 H (74-99) mg/dL POC Glucose (mg/dL) 197 H (75-99) mg/dL Procalcitonin (0.02-0.09) ng/mL Microbiology - Last 24 Hours (Table) 03/11/19 01:45 Blood Culture - Preliminary Blood No Growth after 72 hours 03/12/19 20:22 Blood Culture - Preliminary Blood No Growth after 24 hours 03/12/19 20:30 Blood Culture - Preliminary Blood No Growth after 24 hours Assessment and Plan Assessment: 1- Acute NSTEMI: Seen and evaluated by cardiology. Plan for left heart catheterization today. Currently on IV heparin. Managed medically. 2- Acute Exacerbation of CHF systolic: Echocardiogram showed ejection fraction of 25-30%. Currently on IV Lasix 40 mg daily. We will continue to monitor closely. 3- Hypoxic Respiratory Failure due to above: Secondary to pulmonary edema. Required BiPAP overnight. Currently on nasal cannula 6 L. Wean off O2 as tolerated for O2 sat greater than 90%. Appreciate pulmonology recommendations. 4- Pneumonia, started on IV antibiotic with azithromycin and ceftriaxone. Pro- calcitonin elevated. 5- Poorly Controlled Diabetes Mellitus: A1c 8.6. Currently on NPH 15 units twice daily plus sliding scale. We will continue to monitor closely. 6- Hypomagnesimia: Replace, currently magnesium level within normal range 7- Hypertension, well controlled Today, I reviewed his medication list and lab work results. We will continue current regimen. Appreciate clinical program consultant's recommendations. Repeat lab work in the morning.
[2019-03-14 11:44] LABS: Glucose,Whole Blood 161 mg/dL (75-99)
[2019-03-14 17:02] LABS: Glucose,Whole Blood 200 mg/dL (75-99)
--- NOTE | 2019-03-14 17:32 | PN ---
PROGRESS NOTE Jabier is a 63-year-old gentleman that is admitted to ICU with acute exacerbation of chronic systolic heart failure. He was using BiPAP last time but he appears better today. Denies any chest pain and shortness of breath has improved. He is at the moment on 7 L of nasal O2. The plan was to do a heart catheterization on him. We have had multiple semi-emergent cases today and we may still do him as things stand. The patient wishes to have his cardiac cath done and go home as soon as he can. EXAM: Comfortable at rest. Vital signs are stable. Chest exam reveals diminished air entry at the bases without any crackles or rhonchi. Heart exam reveals first and second heart sounds. No gallop. Has a systolic murmur at the apex. Abdomen is soft. Examination of the extremities reveals mild edema. Peripheral pulses are felt. LABS: Show a potassium of 4.2, creatinine of 1.2, hemoglobin of 11.4. ASSESSMENT: 1. Acute non ST-segment elevation myocardial infarction. 2. Acute pulmonary edema. 3. History of ischemic cardiomyopathy. PLAN: Patient will undergo cardiac catheterization either later today or tomorrow. MMODL / IJN: [id number] /
[2019-03-14 20:58] LABS: Glucose,Whole Blood 366 mg/dL (75-99)
[2019-03-14] MEDS: AZITHROMYCIN 500 MG TAB PO SCH (21:21)
[2019-03-14] MEDS: ATORVASTATIN 10 MG TAB PO SCH (21:21)
[2019-03-14] MEDS: ALPRAZolam 0.5 MG TAB PO PRN (21:28)
[2019-03-15 05:46] LABS: Basophils % (A) 0 %; Eosinophils # (A) 0.3 k/uL (0-0.7); Eosinophils % (A) 4 %; HCT 34.4 % (39.0-53.0); Lymphocytes % (A) 13 %; MCH 32.6 pg (25.0-35.0); MCHC 34.9 g/dL (31.0-37.0); MCV 93.4 fL (80.0-100.0); Mean Platelet Volume 6.8; Monocytes # (A) 0.4 k/uL (0-1.0); Monocytes % (A) 5 %; Neutrophils # (A) 5.5 k/uL (1.3-7.7); Neutrophils % (A) 76 %; Platelet Count 173 k/uL (150-450); Poikilocytosis Slight; RBC 3.68 m/uL (4.30-5.90); RDW 14.8 % (11.5-15.5); WBC 7.2 k/uL (3.8-10.6)
[2019-03-15 05:50] LABS: INR 0.9 (<1.2); Partial Thromboplastin Time 43.8 sec (22.0-30.0); Prothrombin Time 10.2 sec (9.0-12.0)
[2019-03-15 05:53] LABS: Calcium 8.7 mg/dL (8.4-10.2); Potassium 4.2 mmol/L (3.5-5.1)
[2019-03-15 06:56] LABS: Glucose,Whole Blood 191 mg/dL (75-99)
[2019-03-15] MEDS: PANTOPRAZOLE 40 MG TABLET PO SCH ×2 (07:00→16:55)
[2019-03-15] MEDS: INSULIN ASPART (NovoLOG) 100 UNIT/ML VIAL SQ SCH ×6 (07:00→21:44)
[2019-03-15] MEDS: CARVEDILOL 12.5 MG TAB PO SCH ×2 (07:00→16:55)
--- NOTE | 2019-03-15 08:08 | P.PN ---
Subjective Progress Note Date: 03/15/19 This is a 63-year-old white male, with past medical history of poorly-controlle d diabetes mellitus, ischemic cardiomyopathy, chronic congestive heart failure with systolic dysfunction, hypertension, hyperlipidemia, 3 previous episodes of myocardial infarction, coronary artery disease with previous stenting, who presented to the emergency department on 03/10/2017 with complaints of sharp pain in both shoulders, traveling down his left arm, and traveling over to his right arm lasting for 2 hours. This pain was similar to the pain she previously had with his previous heart attacks, and patient decided to come into the hospital. Also reported some numbness and tingling in his bilateral hands. Denies any fever or chills prior to admission, denied any shortness of breath, no cough, denied any swelling in his lower extremities. No abdominal pain, no lightheadedness. Patient travels a lot for his work, recently took a job in [employer] but up until then used to travel and be gone from his residence up to 3 months at a time for work. 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 Denies any history of chronic lung disease, he is a lifetime nonsmoker. He had previously been offered AICD placement but he refused related for frequent travel and extra hassle with security at airports. EKG mention showed a wide-complex rhythm with extensive nonspecific ST and T wave changes. First set of troponins was negative, the second troponin came back abnormal at 2, cardiology was consulted and was planned and on cardiac catheterization today. D-dimer was elevated and CTA chest showed no evidence of pulmonary embolism, and showed mild pulmonary interstitial infiltrates and small pleural effusions. Chest x-ray on admission showed mild coarsening of the lung markings, and slight blunting of posterior costophrenic angles. Echocardiogram showed severely impaired left ventricular systolic function with an EF of 25- 30%, mild mitral, mild tricuspid regurgitation, no PAH, no pericardial effusion. Patient was apparently being pre-hydrated related to his abnormal renal function. Yesterday in the afternoon on 03/12/2019 patient developed acute dyspnea, and hypoxemia, and A-team was called, repeat chest x-ray was obtained showing reticulonodular interstitial prominence more prominent from previous study suggesting worsening interstitial edema. Patient was given 80 mg of Lasix , and placed on BiPAP support, ABGs were obtained showing pO2 of 287, pCO2 of 47, and pH of 7.32, this was done on FiO2 of 100%. She was transferred to the intensive care unit, started diuresing, and overnight he produced over 3100 mL in urine output, this morning he seen in follow-up, he was switched to nasal cannula, currently on 6 L of oxygen with a pulse ox of 92%, he is feeling better, is in no respiratory distress. He is making urine in the order of 6250 ML per hour, lung sounds are very diminished, with crackles throughout. This morning's lab work has been reviewed showing improvement in his white blood cell count down to 11.2 from 20.1 on yesterday's labs, hemoglobin is 12.0, joints are within normal limits, BUN is 32, creatinine is 1.32, slightly improved from yesterday, third and fourth sets of troponins came back at 2.9 and 0.853 respectively. Denies episodes of chest pain overnight, he is awake and alert, no questions appropriately, repeat chest x-ray was completed this morning showing improvement in the interstitial infiltrates. On 03/14/2019 on seeing this patient for a follow-up. The patient is calm and comfortable. No chest pain. No angina. He was diuresed adequately with IV Lasix and today's creatinine is at 1.29 with a BUN of 30. He is less short of b reath. Currently is on 7 L of oxygen by nasal cannula and his current pulse ox is 93%. He is afebrile with temperature 98.6. BP is 133/76. The patient remains on IV heparin. The patient remains on 40 mg IV every 12 hours. Antibiotic coverage is also being utilized with a combination of Rocephin and Zithromax. He is on aspirin. He is on beta blockers in the form of Coreg 25 mg twice a day and Aldactone in addition to lisinopril 20 mg by mouth daily. The plan is to proceed with a cardiac catheterization today. No other significant events overnight. X-ray showing improvement in the pulmonary edema and resolving pulmonary edema that was essentially related to congestion heart failure and fluid overload as the patient was being given IV fluids in preparation for cardiac catheterization. Currently IV fluid is at KVO. On 03/15/2019 the patient is frustrated that the cath was not done yesterday. He was nothing by mouth all day and for logistic reasons got postponed till today. He is free of any chest pain. Hemodynamically stable. He is off IV heparin. His creatinine is stable and the patient got diuresed adequately and his overall pulmonary status improved considerably and currently he is on Lasix 40 mg IV push every 12 hours. He is also on accommodation Rocephin and Zi thromax. The chest x-ray from yesterday showed improvement in the volume status and there was no follow-up chest x-ray from today. His blood pressure is under good control for now. No nausea. No vomiting. No chest pain. No other significant events overnight. His cardiac rhythm is sinus. Objective - Vital Signs Vital signs: Vital Signs Temp 98 F 03/15/19 04:00 Pulse 73 03/15/19 07:00 Resp 17 03/15/19 07:00 BP 114/66 03/15/19 07:00 Pulse Ox 95 03/15/19 07:00 Intake & Output 03/14/19 03/15/19 03/15/19 18:59 06:59 18:59 Intake Total 545.488 290 104.512 Output Total 1750 2180 100 Balance -1204.512 -1890 4.512 Weight 104.7 kg Intake: IV 50 cefTRIAXone 1 gm In 50 Sodium Chloride 0.9% 50 ml @ 100 mls/hr IVPB Q24H VAN Rx#:[id number] Intake, IV Titration 145.488 0 104.512 Amount Heparin Sod,Pork in 0.45% 145.488 0 104.512 NaCl 25,000 unit In 0.45 % NaCl 1 250ml.bag @ 9.43 UNITS/KG/HR 10.005 mls/ hr IV .Q24H VAN Rx#: [id number] Oral 400 240 Output: Urine 1750 2180 100 Other: Voiding Method Indwelling Catheter Indwelling Catheter - Exam GENERAL EXAM: Alert, very pleasant, nonacute distress currently on 6 L of oxygen by nasal cannula that can be further weaned off. with a pulse ox of 93%, HEAD: Normocephalic/atraumatic. EYES: Normal reaction of pupils, equal size. Conjunctiva pink, sclera white. NOSE: Clear with pink turbinates. THROAT: No erythema or exudates. NECK: No masses, no JVD, no thyroid enlargement, no adenopathy. CHEST: No chest wall deformity. Symmetrical expansion. LUNGS: Lungs were clear to auscultation and percussion, and with normal diaphragmatic excursion. No wheezes or rales were noted. CVS: Regular rate and rhythm, normal S1 and S2, no gallops, no murmurs, no rubs ABDOMEN: Soft, nontender. No hepatosplenomegaly, normal bowel sounds, no guarding or rigidity. EXTREMITIES: No clubbing, mild pretibial edema left greater than right, no cyanosis, 2+ pulses and upper and lower extremities. MUSCULOSKELETAL: Muscle strength and tone normal. SPINE: No scoliosis or deformity SKIN: No rashes CENTRAL NERVOUS SYSTEM: Alert and oriented -3. No focal deficits, tone is normal in all 4 extremities. PSYCHIATRIC: Alert and oriented -3. Appropriate affect. Intact judgment and insight. - Labs CBC & Chem 7: 03/15/19 04:23 03/15/19 04:23 Labs: Abnormal Lab Results - Last 24 Hours (Table) 03/14/19 03/14/19 03/14/19 Range/Units 11:42 17:00 20:56 RBC (4.30-5.90) m/uL Hgb (13.0-17.5) gm/dL Hct (39.0-53.0) % APTT (22.0-30.0) sec Carbon Dioxide (22-30) mmol/L BUN (9-20) mg/dL Glucose (74-99) mg/dL POC Glucose (mg/dL) 161 H 200 H 366 H (75-99) mg/dL 03/15/19 03/15/19 03/15/19 Range/Units 04:23 04:23 04:23 RBC 3.68 L (4.30-5.90) m/uL Hgb 12.0 L (13.0-17.5) gm/dL Hct 34.4 L (39.0-53.0) % APTT 43.8 H (22.0-30.0) sec Carbon Dioxide 31 H (22-30) mmol/L BUN 26 H (9-20) mg/dL Glucose 170 H (74-99) mg/dL POC Glucose (mg/dL) (75-99) mg/dL 03/15/19 Range/Units 06:55 RBC (4.30-5.90) m/uL Hgb (13.0-17.5) gm/dL Hct (39.0-53.0) % APTT (22.0-30.0) sec Carbon Dioxide (22-30) mmol/L BUN (9-20) mg/dL Glucose (74-99) mg/dL POC Glucose (mg/dL) 191 H (75-99) mg/dL Microbiology - Last 24 Hours (Table) 03/11/19 01:45 Blood Culture - Preliminary Blood No Growth after 96 hours 03/12/19 20:30 Blood Culture - Preliminary Blood No Growth after 48 hours 03/12/19 20:22 Blood Culture - Preliminary Blood No Growth after 48 hours Assessment and Plan Plan: #1. Acute hypoxic respiratory failure related to acute interstitial edema, and acute exacerbation of chronic congestive heart failure with systolic dysfunction. The patient fluid with diuretics. The patient remains on IV Lasix 40 mg every 12 hours. He has diuresed aggressively and he is a negative fluid balance of 3 L over the past 24 hours and overall he has diuresed more than 7 L. This is on oxygen at 6 L with a pulse ox of 95% and this can be gradually weaned off. The ultimate plan is to proceed with cardiac catheterization. This will be done today. #2. Acute non-ST elevated myocardial infarction, currently on a combination of aspirin and IV heparin and the patient is going to have a cardiac catheterization today. The IV heparin was discontinued per cardiology. #3. Leukocytosis, of unknown etiology, rule out infectious process #4. Acute kidney injury him a improving and the creatinine is down to 1.25 #5. Ischemic cardiomyopathy, with a EF of 25-30%, patient had previously refused AICD placement #6. Coronary artery disease with previous stenting #7. Previous episodes of myocardial infarction 3 in the past #8. Poorly controlled diabetes mellitus type 2 #9. Lifetime nonsmoker, no history of chronic lung disease #10. Hypertension #11. Hyperlipidemia Plan Cardiac catheterization today. Change Lasix to 40 mg once a day. Wean down the FiO2 to maintain a saturation above 90%. On examination, his crackles of subsided. This continued IV Rocephin. Continue rest of the cardiac medications. We'll continue to follow.
--- NOTE | 2019-03-15 08:24 | XR ---
EXAMINATION TYPE: XR chest 1V portable DATE OF EXAM: 03/15/2019 HISTORY: follow up pulmonary edema. REFERENCE: Previous study dated 03/14/2019. FINDINGS: The heart remains enlarged. There is minimal vascular congestion and subtle interstitial ch emilee. No definite effusions are seen. IMPRESSION: CONTINUING MILD CHANGES OF CONGESTIVE HEART FAILURE.
[2019-03-15] MEDS: LISINOPRIL 20 MG TAB PO SCH (08:25)
[2019-03-15] MEDS: CITALOPRAM HYDROBROMIDE 20 MG TAB PO SCH (08:25)
[2019-03-15] MEDS: FUROSEMIDE 10 MG/ML 4 ML VIAL IV SCH (08:25)
[2019-03-15] MEDS: amLODIPine 5 MG TAB PO SCH (08:25)
[2019-03-15] MEDS: ASPIRIN 81 MG PO SCH (08:25)
[2019-03-15] MEDS: ALPRAZolam 0.5 MG TAB PO PRN (08:26)
[2019-03-15] MEDS: SPIRONOLACTONE 25 MG TAB PO SCH (08:26)
[2019-03-15] MEDS ORDERED: fentaNYL (PF) 50 MCG/ML 2 ML AMP ONE (11:13)
[2019-03-15] MEDS ORDERED: LIDOCAINE 1% INJ 10MG/ML (20 ML MDV) ONE (11:13)
[2019-03-15] MEDS ORDERED: LIDOCAINE 1% INJ 10MG/ML (20 ML MDV) SQ ONE (11:22)
[2019-03-15] MEDS ORDERED: IV FLUID CONTINUATION 1,000 ML IV ONE (11:30)
[2019-03-15] MEDS ORDERED: RX INFO: IV CONTRAST WAS GIVEN 1 EACH MISC MISCELLANE PRN (12:09)
[2019-03-15 12:25] LABS: Glucose,Whole Blood 178 mg/dL (75-99)
[2019-03-15] MEDS: INSULIN NPH 300 UNIT/3 ML VIAL SQ SCH ×2 (12:26→21:44)
[2019-03-15] MEDS: SODIUM CHLORIDE 0.9% 1,000 ML IV SCH (12:29)
--- NOTE | 2019-03-15 12:54 | CC ---
CARDIAC CATHETERIZATION REPORT INDICATION: 1. Acute non ST-segment elevation myocardial infarction. 2. Pulmonary edema. PROCEDURE NOTE: After obtaining informed consent, left heart catheterization, coronary angiogram are performed via the right femoral artery using standard Genet catheters. The patient tolerated the procedure well without any obvious immediate complications. A femoral angiogram was performed and Angio-Seal will be deployed for hemostasis findings. HEMODYNAMICS: Left ventricular end-diastolic pressure is 14-16 mm. There is no significant gradient across the aortic valve. LEFT VENTRICULOGRAM: Left ventriculogram is not performed. ANGIOGRAPHIC DATA: LEFT MAIN CORONARY ARTERY: Left main coronary artery is a normal-sized vessel appears calcified and is free of significant stenosis. Divides into left anterior descending coronary artery and circumflex coronary artery. CIRCUMFLEX CORONARY ARTERY: Circumflex coronary artery is a nondominant vessel shows moderate diffuse disease. LEFT ANTERIOR DESCENDING CORONARY ARTERY: LAD was previously stented and the proximal segment appears patent. There is mild to moderate disease in the mid LAD. At its worst, it seems to be a 40%-50% stenosis. The diagonal branches are small caliber vessels. There are extensive collaterals to the distal right coronary artery. RIGHT CORONARY ARTERY: Right coronary artery is chronically occluded in its midportion. CONCLUSIONS: [place] 3-vessel coronary artery disease with chronic total occlusion of the right coronary artery, moderate diffuse disease involving a small caliber circumflex coronary artery and no focal hemodynamically significant lesions within the left anterior descending coronary artery. PLAN: Patient's management is going to be in the form of risk factor modification, optimal medical therapy. He has ischemic cardiomyopathy with severe LV dysfunction and will need a prophylactic AICD. BINTA / ELAINEN: [id number] /
--- NOTE | 2019-03-15 14:12 | P.PN ---
Subjective Progress Note Date: 03/15/19 Patient is feeling fairly well today. He was frustrated this morning that his leftheart cath was not done yesterday. Objective - Vital Signs Vital signs: Vital Signs Temp 97.6 F 03/15/19 12:15 Pulse 70 03/15/19 14:00 Resp 20 03/15/19 14:00 BP 132/73 03/15/19 14:00 Pulse Ox 95 03/15/19 14:00 Intake & Output 03/14/19 03/15/19 03/15/19 18:59 06:59 18:59 Intake Total 545.488 290 734.512 Output Total 1750 2180 1200 Balance -1204.512 -1890 -465.488 Weight 104.7 kg Intake: IV 50 150 Sodium Chloride 0.9% 1, 150 000 ml @ 75 mls/hr IV . [id number] VAN Rx#:[id number] cefTRIAXone 1 gm In 50 Sodium Chloride 0.9% 50 ml @ 100 mls/hr IVPB Q24H VAN Rx#:[id number] Intake, IV Titration 145.488 0 104.512 Amount Heparin Sod,Pork in 0.45% 145.488 0 104.512 NaCl 25,000 unit In 0.45 % NaCl 1 250ml.bag @ 9.43 UNITS/KG/HR 10.005 mls/ hr IV .Q24H VAN Rx#: [id number] Oral 400 240 480 Output: Urine 1750 2180 1200 Other: Voiding Method Indwelling Catheter Indwelling Catheter Indwelling Catheter - Exam General: The patient is awake and alert, in no distress, and does not appear acutely ill. Eye: extra-ocular movements are intact; there is normal conjunctiva bilaterally. Cardiovascular: Normal S1-S2, no S3-S4, no murmurs. Respiratory: Lungs with bibasilar crackles Gastrointestinal: Abdomen is soft, nontender, nondistended, Musculoskeletal: Normal ROM, no tenderness, There is no pedal edema. Neurological: There are no obvious motor or sensory deficits. Speech is normal. Skin: Skin is warm and dry and no rashes or lesions are noted. - Labs CBC & Chem 7: 03/15/19 04:23 03/15/19 04:23 Labs: Abnormal Lab Results - Last 24 Hours (Table) 03/14/19 03/14/19 03/15/19 Range/Units 17:00 20:56 04:23 RBC 3.68 L (4.30-5.90) m/uL Hgb 12.0 L (13.0-17.5) gm/dL Hct 34.4 L (39.0-53.0) % APTT (22.0-30.0) sec Carbon Dioxide (22-30) mmol/L BUN (9-20) mg/dL Glucose (74-99) mg/dL POC Glucose (mg/dL) 200 H 366 H (75-99) mg/dL 03/15/19 03/15/19 03/15/19 Range/Units 04:23 04:23 06:55 RBC (4.30-5.90) m/uL Hgb (13.0-17.5) gm/dL Hct (39.0-53.0) % APTT 43.8 H (22.0-30.0) sec Carbon Dioxide 31 H (22-30) mmol/L BUN 26 H (9-20) mg/dL Glucose 170 H (74-99) mg/dL POC Glucose (mg/dL) 191 H (75-99) mg/dL 03/15/19 Range/Units 12:24 RBC (4.30-5.90) m/uL Hgb (13.0-17.5) gm/dL Hct (39.0-53.0) % APTT (22.0-30.0) sec Carbon Dioxide (22-30) mmol/L BUN (9-20) mg/dL Glucose (74-99) mg/dL POC Glucose (mg/dL) 178 H (75-99) mg/dL Microbiology - Last 24 Hours (Table) 03/11/19 01:45 Blood Culture - Preliminary Blood No Growth after 96 hours 03/12/19 20:30 Blood Culture - Preliminary Blood No Growth after 48 hours 03/12/19 20:22 Blood Culture - Preliminary Blood No Growth after 48 hours Assessment and Plan Assessment: This is a 63-year-old male who presented to the emergency room on 03/11 with w orsening chest pain and shortness of breath. Patient was evaluated in the ER and admitted to the hospital for further management of his medical problems noted below. 1- Acute NSTEMI: Seen and evaluated by cardiology. Left heart catheterization on 03/15 showed chronic total occlusion of RCA with no significant hemodynamically lesion within the LAD. No stenting was done. Managed medically. 2- Acute Exacerbation of CHF systolic: Echocardiogram showed ejection fraction of 25-30%. Currently on IV Lasix 40 mg daily. We will continue to monitor closely. 3- Hypoxic Respiratory Failure due to above: Secondary to pulmonary edema. Required BiPAP on presentation. Currently on nasal cannula 6 L. Wean off O2 as tolerated for O2 sat greater than 90%. Appreciate pulmonology recommendations. 4- Pneumonia, started on IV antibiotic with azithromycin and ceftriaxone. Pro- calcitonin elevated. 5- Poorly Controlled Diabetes Mellitus: A1c 8.6. Currently on NPH 15 units twice daily plus sliding scale. We will continue to monitor closely. 6- Hypomagnesimia: Replace, currently magnesium level within normal range 7- Hypertension, well controlled Today, I reviewed his medication list and lab work results. We will continue current regimen. Appreciate consultant internship's recommendations. Repeat lab work in the morning.
[2019-03-15 16:45] LABS: Glucose,Whole Blood 256 mg/dL (75-99)
[2019-03-15 21:00] LABS: Glucose,Whole Blood 300 mg/dL (75-99)
[2019-03-15] MEDS: HEPARIN SODIUM,PORCINE 5,000 UNIT/ML 1 ML VIAL SQ SCH (21:43)
[2019-03-15] MEDS: ATORVASTATIN 10 MG TAB PO SCH (21:45)
[2019-03-15] MEDS: AZITHROMYCIN 500 MG TAB PO SCH (21:45)
[2019-03-16] MEDS: SODIUM CHLORIDE 0.9% 1,000 ML IV SCH (03:11)
[2019-03-16 06:33] LABS: Glucose,Whole Blood 227 mg/dL (75-99)
[2019-03-16] MEDS: PANTOPRAZOLE 40 MG TABLET PO SCH (06:36)
[2019-03-16] MEDS: INSULIN ASPART (NovoLOG) 100 UNIT/ML VIAL SQ SCH ×2 (06:36)
[2019-03-16] MEDS: CARVEDILOL 12.5 MG TAB PO SCH (06:36)
[2019-03-16 06:38] LABS: Basophils % (A) 1 %; Eosinophils # (A) 0.2 k/uL (0-0.7); Eosinophils % (A) 4 %; HCT 33.9 % (39.0-53.0); HGB 11.6 gm/dL (13.0-17.5); Lymphocytes # (A) 0.5 k/uL (1.0-4.8); Lymphocytes % (A) 11 %; MCH 32.2 pg (25.0-35.0); MCHC 34.3 g/dL (31.0-37.0); MCV 93.7 fL (80.0-100.0); Mean Platelet Volume 7.2; Monocytes # (A) 0.4 k/uL (0-1.0); Monocytes % (A) 8 %; Neutrophils # (A) 3.8 k/uL (1.3-7.7); Neutrophils % (A) 76 %; Platelet Count 156 k/uL (150-450); Poikilocytosis Slight; RBC 3.62 m/uL (4.30-5.90); RDW 14.8 % (11.5-15.5)
[2019-03-16 06:45] LABS: Calcium 8.7 mg/dL (8.4-10.2); Potassium 4.4 mmol/L (3.5-5.1)
[2019-03-16 08:31] VITALS: BP 120/59; PULSE 68; RESP 18; TEMP 98.9
[2019-03-16] MEDS: amLODIPine 5 MG TAB PO SCH (09:15)
[2019-03-16] MEDS: ALPRAZolam 0.5 MG TAB PO PRN (09:15)
[2019-03-16] MEDS: ASPIRIN 81 MG PO SCH (09:15)
[2019-03-16] MEDS: CITALOPRAM HYDROBROMIDE 20 MG TAB PO SCH (09:15)
[2019-03-16] MEDS: LISINOPRIL 20 MG TAB PO SCH (09:15)
[2019-03-16] MEDS: FUROSEMIDE 10 MG/ML 4 ML VIAL IV SCH (09:15)
[2019-03-16] MEDS: SPIRONOLACTONE 25 MG TAB PO SCH (09:15)
[2019-03-16] MEDS: HEPARIN SODIUM,PORCINE 5,000 UNIT/ML 1 ML VIAL SQ SCH (09:15)
[2019-03-16] MEDS: INSULIN NPH 300 UNIT/3 ML VIAL SQ SCH (09:21)
--- NOTE | 2019-03-16 10:43 | P.DS ---
Providers Date of admission: 03/11/19 01:30 Expected date of discharge: 03/16/19 Attending physician: Randolph Avendano MD Consults: 03/11/19 06:43 Consult Physician Routine Consulting Provider: Clyde Hendrix Consult Reason/Comments: chest pain Do you want consulting provider notified?: Yes 03/12/19 17:04 Consult Physician Routine Consulting Provider: Lizzeth Mason Consult Reason/Comments: respiratory distress Do you want consulting provider notified?: Already Contacted Primary care physician: Stated None Hospital Course: Patient is a 63-year-old male with PMH of CAD, diabetes mellitus, hypertension, dyslipidemia presented to the ED initially for chest pain, shortness of breath and wheezing. He also reported nonproductive cough. In the ED, patient was found to be in acute hypoxic respiratory failure and given nebulized breathing treatments and supplemental oxygen. Flu test was performed and was negative. Chest x-ray showed mild pulmonary interstitial edema. CTA of the chest was performed which ruled out PE but showed mild pulmonary infiltrates and small pleural effusions. Patient was started on Lasix IV and given azithromycin for community-acquired pneumonia. Initial troponin was less than 0.012 but second troponin was elevated at 2.05, 2.95, 0.853. Cardiology was consulted and patient was taken for cardiac catheterization. Cardiac catheterization showed three-vessel coronary disease with chronic total occlusion of the right coronary artery, moderate diffuse disease involving circumflex coronary artery. Medical management was recommended by cardiology. Echocardiogram was performed which showed EF 25-30%. Patient had previously been offered AICD but refused. His hypoxic respiratory failure was thought to be secondary to pulmonary edema from acute CHF exacerbation. He was initially diuresed with Lasix 40 mg IV twice a day which was transitioned to oral on discharge. Patient was seen and examined. No acute events overnight. Patient reports considerable improvement in his breathing. He denies any chest pain, shortness of breath or palpitations. No nausea or vomiting. No fever or chills. Requesting to be discharged today or will leave AMA. Upset over cardiac cath not being performed on stated date. General: [non toxic], [no distress], [appears at stated age] Derm: [warm], [dry] Head: [atraumatic], [normocephalic], [symmetric] Eyes: [EOMI], [no lid lag], [anicteric sclera] Mouth: [no lip lesion], [mucus membranes moist] Cardiovascular: [S1S2 reg], [no murmur], [positive posterior tibial pulse bilateral], Lungs: [Mild crackles at the bases with good air entry], [no rhonchi, no rales] , [no accessory muscle use] Abdominal: [soft], [ nontender to palpation], [no guarding], [no appreciable o rganomegaly] Ext: [no gross muscle atrophy], [no edema], [no contractures] Neuro: [no focal neuro deficits] Psych: [Alert], [oriented], [appropriate affect] Assessment and plan Non-ST elevation UT Acute hypoxic respiratory failure due to pulmonary edema from decompensated systolic CHF Community-acquired pneumonia Diabetes mellitus with hyperglycemia Elevated BUN Hypertension Obesity 2.05, and 2.95, 0.853 EKG showing wide QRS and intraventricular block. Cardiac catheterization performed, shows chronic triple-vessel disease, medical management recommended by cardiology. Plans: Continue aspirin and Lipitor. Continue beta tonya. Follow cardiology in the outpatient setting. Currently on room air, saturating mid 90s. CT a chest rules out PE, shows infiltrates and bilateral effusion. Echocardiogram showing EF 25-30%, refused AICD in the past. Plans: Transition Lasix IV to oral. Continue beta tonya. Continue ROSA MARIA inhibitor. Continue Aldactone. Strict intake and take. Daily weights. As seen on chest CTA. Plans: Completed antibiotic therapy. [id number] glucose 227. Plans: Resume home dose of insulin. Regular Accu- Cheks. Hypoglycemic precautions. BUN 23, improved during admission. Likely due to forced diuresis. Prerenal. Plans: Repeat BMP in 3 days. BP 120/59. Plans: Resume ROSA MARIA inhibitor and beta tonya. Monitor vitals, adjust medications as necessary. BMI 33. Plans: Structured weight loss program. [Patient wanting to be discharged today. His breathing is considerably improved. No chest pain. Cardiac catheterization performed, recommends medical management. Systolic CHF, refused AICD in the past. DC today with close cardiology follow-up in the outpatient setting.] Pertinent Studies: Chest x-ray, chest CTA, echocardiogram Procedures: Cardiac catheterization Patient Condition at Discharge: Serious Plan - Discharge Summary Discharge Rx Participant: No New Discharge Prescriptions: New Spironolactone [Aldactone] 50 mg PO DAILY #30 tab Aspirin 81 mg PO DAILY #30 chew Continue Nitroglycerin Sl Tabs [Nitrostat] 0.4 mg SUBLINGUAL Q5M PRN PRN Reason: Chest Pain Simvastatin [Zocor] 10 mg PO HS Citalopram Hydrobromide [Citalopram HBr] 20 mg PO DAILY glipiZIDE [Glucotrol] 5 mg PO AC-BRKFST amLODIPine [Norvasc] 5 mg PO DAILY ALPRAZolam [Xanax] 0.5 mg PO DAILY PRN PRN Reason: Anxiety Carvedilol 25 mg PO BID metFORMIN HCL [Glucophage] 1,000 mg PO BID-W/MEALS Enalapril [Vasotec] 10 mg PO DAILY Insulin NPH Human Isophane [NovoLIN N] 40 unit SQ BID-W/MEALS Furosemide [Lasix] 40 mg PO BID #60 tab Discharge Medication List ALPRAZolam [Xanax] 0.5 mg PO DAILY PRN 10/20/17 [History] Carvedilol 25 mg PO BID 10/20/17 [History] Citalopram Hydrobromide [Citalopram HBr] 20 mg PO DAILY 10/20/17 [History] Nitroglycerin Sl Tabs [Nitrostat] 0.4 mg SUBLINGUAL Q5M PRN 10/20/17 [History] Simvastatin [Zocor] 10 mg PO HS 10/20/17 [History] amLODIPine [Norvasc] 5 mg PO DAILY 10/20/17 [History] glipiZIDE [Glucotrol] 5 mg PO AC-BRKFST 10/20/17 [History] metFORMIN HCL [Glucophage] 1,000 mg PO BID-W/MEALS 10/20/17 [History] Enalapril [Vasotec] 10 mg PO DAILY 03/11/19 [History] Insulin NPH Human Isophane [NovoLIN N] 40 unit SQ BID-W/MEALS 03/12/19 [History] Aspirin 81 mg PO DAILY #30 chew 03/16/19 [Rx] Furosemide [Lasix] 40 mg PO BID #60 tab 03/16/19 [Rx] Spironolactone [Aldactone] 50 mg PO DAILY #30 tab 03/16/19 [Rx] Follow up Appointment(s)/Referral(s): None,Stated [Primary Care Provider] - 1-2 days Fred Leblanc MD [STAFF PHYSICIAN] - 1 Week Ambulatory/Diagnostic Orders: Basic Metabolic Panel [LAB.AMB] Time Frame: 3 Days, Location: None Selected XR chest 2V [RAD.AMB] Time Frame: 3 Days, Location: None Selected Activity/Diet/Wound Care/Special Instructions: Diet: Cardiac, low-salt Follow-up PCP within 3 days of discharge. Follow-up cardiology within 1 week of discharge. Obtain BMP and chest x-ray within 3 days of discharge. Follow-up results with PCP. Take all medications as advised. Discharge Disposition: HOME SELF-CARE
--- NOTE | 2019-03-16 11:14 | P.PN ---
Subjective Progress Note Date: 03/16/19 Principal diagnosis: Acute hypoxic respiratory failure related to acute pulmonary edema, non-ST elevated myocardial infarction and acute systolic CHF On 03/16/2019 patient seen in follow-up on selective care unit, he is awake and alert, he is already fully dressed, he sitting in the recliner, with a room air pulse ox of 95%, afebrile, hemodynamically stable, patient had a heart catheterization yesterday, and was found to have a chronically occluded RCA of 100%, and his LAD which had been previously stented showed a 40-50% disease. No complaints of chest pain, no complaints of shortness of breath, patient is tolerating ambulation, he is in negative fluid balance, yesterday's chest x-ray showed minimal vascular congestion and subtle interstitial changes. Lung sounds reveal some crackles over left lower base, but no rhonchi, no wheezing, patient was recommended medical treatment, and he is planning on going home today. Objective - Vital Signs Vital signs: Vital Signs Temp 98.9 F 03/16/19 08:00 Pulse 68 03/16/19 08:00 Resp 18 03/16/19 08:00 BP 120/59 03/16/19 08:00 Pulse Ox 95 03/16/19 08:00 Intake & Output 03/15/19 03/16/19 03/16/19 18:59 06:59 18:59 Intake Total 1199.512 225 236 Output Total 1490 350 Balance -290.488 -125 236 Weight 104.2 kg Intake: IV 375 225 Sodium Chloride 0.9% 1, 375 225 000 ml @ 75 mls/hr IV . [id number] VAN Rx#:[id number] Intake, IV Titration 104.512 Amount Heparin Sod,Pork in 0.45% 104.512 NaCl 25,000 unit In 0.45 % NaCl 1 250ml.bag @ 9.43 UNITS/KG/HR 10.005 mls/ hr IV .Q24H VAN Rx#: [id number] Oral 720 236 Output: Urine 1490 350 Other: Voiding Method Indwelling Catheter # Voids 0 - Exam GENERAL EXAM: Alert, very pleasant, nonacute distress currently on room air with a pulse ox of 95% HEAD: Normocephalic/atraumatic. EYES: Normal reaction of pupils, equal size. Conjunctiva pink, sclera white. NOSE: Clear with pink turbinates. THROAT: No erythema or exudates. NECK: No masses, no JVD, no thyroid enlargement, no adenopathy. CHEST: No chest wall deformity. Symmetrical expansion. LUNGS: Lungs reveal crackles at the left lower base, but no rhonchi or wheezing and with normal diaphragmatic excursion. CVS: Regular rate and rhythm, normal S1 and S2, no gallops, no murmurs, no rubs ABDOMEN: Soft, nontender. No hepatosplenomegaly, normal bowel sounds, no gu arding or rigidity. EXTREMITIES: No clubbing, mild pretibial edema left greater than right, no cyano sis, 2+ pulses and upper and lower extremities. MUSCULOSKELETAL: Muscle strength and tone normal. SPINE: No scoliosis or deformity SKIN: No rashes CENTRAL NERVOUS SYSTEM: Alert and oriented -3. No focal deficits, tone is normal in all 4 extremities. PSYCHIATRIC: Alert and oriented -3. Appropriate affect. Intact judgment and insight. - Labs CBC & Chem 7: 03/16/19 05:22 03/16/19 05:22 Labs: Abnormal Lab Results - Last 24 Hours (Table) 03/15/19 03/15/19 03/15/19 Range/Units 12:24 16:44 20:58 RBC (4.30-5.90) m/uL Hgb (13.0-17.5) gm/dL Hct (39.0-53.0) % Lymphocytes # (1.0-4.8) k/uL BUN (9-20) mg/dL Glucose (74-99) mg/dL POC Glucose (mg/dL) 178 H 256 H 300 H (75-99) mg/dL 03/16/19 03/16/19 03/16/19 Range/Units 05:22 05:22 06:30 RBC 3.62 L (4.30-5.90) m/uL Hgb 11.6 L (13.0-17.5) gm/dL Hct 33.9 L (39.0-53.0) % Lymphocytes # 0.5 L (1.0-4.8) k/uL BUN 23 H (9-20) mg/dL Glucose 210 H (74-99) mg/dL POC Glucose (mg/dL) 227 H (75-99) mg/dL Microbiology - Last 24 Hours (Table) 03/11/19 01:45 Blood Culture - Preliminary Blood No Growth after 120 hours 03/12/19 20:22 Blood Culture - Preliminary Blood No Growth after 72 hours 03/12/19 20:30 Blood Culture - Preliminary Blood No Growth after 72 hours Assessment and Plan Plan: Assessment: #1. Acute hypoxic respiratory failure related to acute interstitial edema, and acute exacerbation of chronic congestive heart failure with systolic dysfunction #2. Acute non-ST elevated myocardial infarction #3. Leukocytosis, of unknown etiology, rule out infectious process. Pro- calcitonin came back mildly elevated at 0.5 to #4. Acute kidney injury, improved #5. Ischemic cardiomyopathy, with a EF of 25-30%, patient had previously refused AICD placement #6. Coronary artery disease with previous stenting #7. Previous episodes of myocardial infarction 3 in the past #8. Poorly controlled diabetes mellitus type 2 #9. Lifetime nonsmoker, no history of chronic lung disease #10. Hypertension #11. Hyperlipidemia Plan: Patient is stable from pulmonary perspective, no breathing issues, no complaints of chest pain, no acute issues overnight, vital signs are stable, cultures are negative. Patient is being discharged home today. I performed a history & physical examination of the patient and discussed their management with my nurse practitioner, Raeann Mathis. I reviewed the nurse practitioner's note and agree with the documented findings and plan of care. Lung sounds are positive for diminished breath sounds with crackles throughout. The findings and the impression was discussed with the patient. I attest to the documentation by the nurse practitioner. Time with Patient: Less than 30
--- NOTE | 2019-03-16 11:23 | P.PN ---
Subjective Progress Note Date: 03/16/19 Principal diagnosis: Coronary artery disease This is a pleasant 63-year-old gentleman who was admitted to the hospital was congestive heart failure and underwent an echocardiogram which revealed severe cardiomyopathy. Giving that, I heart catheterization was advised. It did re veal chronic total occlusion of the RCA and severe disease involving a small nondominant left circumflex and also mild disease involving the LAD. Maximize medical treatment was advised. On follow-up with the patient today, he seems to be asymptomatic from the cardiovascular standpoint of view. He is also euvolemic on examination. From the cardiac standpoint overview, the patient can be discharged home. He is on maximize medical treatment for the cardiomyopathy. Objective - Vital Signs Vital signs: Vital Signs Temp 98.9 F 03/16/19 08:00 Pulse 68 03/16/19 08:00 Resp 18 03/16/19 08:00 BP 120/59 03/16/19 08:00 Pulse Ox 95 03/16/19 08:00 Intake & Output 03/15/19 03/16/19 03/16/19 18:59 06:59 18:59 Intake Total 1199.512 225 236 Output Total 1490 350 Balance -290.488 -125 236 Weight 104.2 kg Intake: IV 375 225 Sodium Chloride 0.9% 1, 375 225 000 ml @ 75 mls/hr IV . [id number] VAN Rx#:[id number] Intake, IV Titration 104.512 Amount Heparin Sod,Pork in 0.45% 104.512 NaCl 25,000 unit In 0.45 % NaCl 1 250ml.bag @ 9.43 UNITS/KG/HR 10.005 mls/ hr IV .Q24H VAN Rx#: [id number] Oral 720 236 Output: Urine 1490 350 Other: Voiding Method Indwelling Catheter # Voids 0 - Constitutional General appearance: Present: no acute distress - Cardiovascular Rhythm: regular Heart sounds: normal: S1, S2 - Labs CBC & Chem 7: 03/16/19 05:22 03/16/19 05:22 Labs: Abnormal Lab Results - Last 24 Hours (Table) 03/15/19 03/15/19 03/15/19 Range/Units 12:24 16:44 20:58 RBC (4.30-5.90) m/uL Hgb (13.0-17.5) gm/dL Hct (39.0-53.0) % Lymphocytes # (1.0-4.8) k/uL BUN (9-20) mg/dL Glucose (74-99) mg/dL POC Glucose (mg/dL) 178 H 256 H 300 H (75-99) mg/dL 03/16/19 03/16/19 03/16/19 Range/Units 05:22 05:22 06:30 RBC 3.62 L (4.30-5.90) m/uL Hgb 11.6 L (13.0-17.5) gm/dL Hct 33.9 L (39.0-53.0) % Lymphocytes # 0.5 L (1.0-4.8) k/uL BUN 23 H (9-20) mg/dL Glucose 210 H (74-99) mg/dL POC Glucose (mg/dL) 227 H (75-99) mg/dL Microbiology - Last 24 Hours (Table) 03/11/19 01:45 Blood Culture - Preliminary Blood No Growth after 120 hours 03/12/19 20:22 Blood Culture - Preliminary Blood No Growth after 72 hours 03/12/19 20:30 Blood Culture - Preliminary Blood No Growth after 72 hours Assessment and Plan Assessment: Assessment #1 severe cardiomyopathy #2 severe CAD as described above #3 congestive heart failure exacerbation secondary to systolic dysfunction #4 multiple comorbid conditions Plan #1 the patient can be discharged home #2 he is to follow-up with cardiology as an outpatient
== END 2019-03-16 12:02 | disposition home or self-care (01) | DRG 280 ==
LOC: EC 22:31 → 3SCARD 03-11 01:30 → 2SICU 03-12 16:50 → 3SCARD 03-15 18:06
PROVIDERS: ADMIT Internal Medicine; ATTEND Internal Medicine
PROC: B2111ZZ Fluoroscopy of Multiple Coronary Arteries using Low Osmolar Contrast (ICD-10-PCS; 2019-03-15)
PROC: 4A023N7 Measurement of Cardiac Sampling and Pressure, Left Heart, Percutaneous Approach (ICD-10-PCS; principal; 2019-03-15 10:56)
DX: I21.4 Non-ST elevation (NSTEMI) myocardial infarction (principal); I50.23 Acute on chronic systolic (congestive) heart failure; J18.9 Pneumonia, unspecified organism; J96.01 Acute respiratory failure with hypoxia; I13.0 Hypertensive heart and chronic kidney disease with heart failure and stage 1 through stage 4 chronic kidney disease, or unspecified chronic kidney disease; N17.9 Acute kidney failure, unspecified; E11.22 Type 2 diabetes mellitus with diabetic chronic kidney disease; E11.65 Type 2 diabetes mellitus with hyperglycemia; E66.9 Obesity, unspecified; E78.5 Hyperlipidemia, unspecified; E83.42 Hypomagnesemia; F41.9 Anxiety disorder, unspecified; I25.10 Atherosclerotic heart disease of native coronary artery without angina pectoris; I25.2 Old myocardial infarction; I25.5 Ischemic cardiomyopathy; I45.10 Unspecified right bundle-branch block; N18.9 Chronic kidney disease, unspecified; Z68.33 Body mass index [BMI] 33.0-33.9, adult; Z79.4 Long term (current) use of insulin; Z79.82 Long term (current) use of aspirin; Z79.899 Other long term (current) drug therapy; Z82.49 Family history of ischemic heart disease and other diseases of the circulatory system; Z83.3 Family history of diabetes mellitus; Z95.5 Presence of coronary angioplasty implant and graft; Z95.810 Presence of automatic (implantable) cardiac defibrillator; Z88.1 Allergy status to other antibiotic agents
CPT/HCPCS: 36415; 36600; 71045; 71046; 71275; 80048; 80053; 81001; 82805; 83036; 83605; 83735; 83880; 84100; 84145; 84484; 85025; 85379; 85610; 85730; 87040; 87502; 93005; 93306; 93458; 94640; 94660; 94760; 96365; 96366; 96375; 99285

== ENCOUNTER 2019-04-29 19:03 | Inpatient (IN) | payer MEDICARE ==
[2019-04-29] MEDS ORDERED: ACETAMINOPHEN TAB 325 MG TAB PO STA (19:45)
[2019-04-29] MEDS ORDERED: SODIUM CHLORIDE 0.9% 500 ML 500 ML IV ONE (19:46)
[2019-04-29 20:24] LABS: Basophils % (A) 0 %; Eosinophils # (A) 0.2 k/uL (0-0.7); Eosinophils % (A) 1 %; HCT 37.1 % (39.0-53.0); HGB 13.1 gm/dL (13.0-17.5); Lymphocytes # (A) 0.6 k/uL (1.0-4.8); Lymphocytes % (A) 5 %; MCH 31.9 pg (25.0-35.0); MCHC 35.2 g/dL (31.0-37.0); MCV 90.8 fL (80.0-100.0); Mean Platelet Volume 8.6; Monocytes # (A) 0.6 k/uL (0-1.0); Monocytes % (A) 5 %; Neutrophils # (A) 10.2 k/uL (1.3-7.7); Neutrophils % (A) 88 %; Platelet Count 194 k/uL (150-450); Poikilocytosis Slight; RBC 4.09 m/uL (4.30-5.90); RDW 15.1 % (11.5-15.5); WBC 11.6 k/uL (3.8-10.6)
[2019-04-29 20:32] LABS: INR 0.9 (<1.2); Partial Thromboplastin Time 23.8 sec (22.0-30.0); Prothrombin Time 9.8 sec (9.0-12.0)
[2019-04-29 20:37] LABS: Albumin 4.4 g/dL (3.5-5.0); Calcium 9.2 mg/dL (8.4-10.2); Potassium 4.8 mmol/L (3.5-5.1); Total Bilirubin 1.3 mg/dL (0.2-1.3); Total Protein 7.3 g/dL (6.3-8.2)
--- NOTE | 2019-04-29 20:45 | ED ---
SOB HPI - General Chief Complaint: Shortness of Breath Stated Complaint: Sob Source: patient, family Mode of arrival: ambulatory Limitations: no limitations - History of Present Illness Initial Comments: The patient is a 64-year-old male with past history of coronary artery disease, diabetes and congestive heart failure presents emergency room with reported shortness of breath and cough. Patient states he's had a nonproductive cough with chills over the past 2 days. He is concerned for pneumonia. States that he has had shortness of breath with wheezing. States that these symptoms are typical when he does have increased fluid retention. He is on Lasix 40 mg twice a day. States that he took an extra 20 mg tablets today in an attempt to help his breathing. States that it did not help. Denies any sick contacts or recent travel. No history of DVT or PE. He does not have a nebulizer at home. No history of COPD. Does not smoke. Denies hemoptysis. No chest pain. Denies ripping or tearing sensation to his back. Denies any abdominal pain. No changes in his bowel or bladder habits. He took ibuprofen before he came into the emergency room for his chills. No nausea or vomiting. There are no other alleviating, Perceptin rocking factors - Related Data Home Medications Medication Instructions Recorded Confirmed ALPRAZolam [Xanax] 0.5 mg PO DAILY PRN 10/20/17 03/11/19 Carvedilol 25 mg PO BID 10/20/17 03/11/19 Citalopram Hydrobromide 20 mg PO DAILY 10/20/17 03/11/19 [Citalopram HBr] Nitroglycerin Sl Tabs [Nitrostat] 0.4 mg SUBLINGUAL Q5M PRN 10/20/17 03/11/19 Simvastatin [Zocor] 10 mg PO HS 10/20/17 03/11/19 amLODIPine [Norvasc] 5 mg PO DAILY 10/20/17 03/11/19 glipiZIDE [Glucotrol] 5 mg PO AC-BRKFST 10/20/17 03/11/19 metFORMIN HCL [Glucophage] 1,000 mg PO BID-W/MEALS 10/20/17 03/11/19 Enalapril [Vasotec] 10 mg PO DAILY 03/11/19 03/11/19 Insulin NPH Human Isophane 40 unit SQ BID-W/MEALS 03/12/19 03/12/19 [NovoLIN N] Previous Rx's Medication Instructions Recorded Aspirin 81 mg PO DAILY #30 chew 03/16/19 Furosemide [Lasix] 40 mg PO BID #60 tab 03/16/19 Spironolactone [Aldactone] 50 mg PO DAILY #30 tab 03/16/19 Allergies Allergy/AdvReac Type Severity Reaction Status Date / Time ciprofloxacin [From Cipro] Allergy Rash/Hives Verified 04/29/19 19:18 Review of Systems ROS Statement: Those systems with pertinent positive or pertinent negative responses have been documented in the HPI. ROS Other: All systems not noted in ROS Statement are negative. Past Medical History Past Medical History: Coronary Artery Disease (CAD), Diabetes Mellitus, Hyperlipidemia, Hypertension, Myocardial Infarction (RI) Last Myocardial Infarction Date:: May 18, 2003 History of Any Multi-Drug Resistant Organisms: None Reported Past Surgical History: Heart Catheterization With Stent, Orthopedic Surgery Past Anesthesia/Blood Transfusion Reactions: No Reported Reaction Date of Last Stent Placement:: 2012 Past Psychological History: Anxiety Smoking Status: Never smoker Past Alcohol Use History: Occasional Past Drug Use History: None Reported - Past Family History family Additional Family Medical History / Comment(s): Mother with history of diabetes mellitus and CAD, father with history of heart disease and diabetes General Exam Limitations: no limitations Course Vital Signs 04/29/19 19:16 Temperature 100.7 F H Pulse Rate 104 H Respiratory 26 H Rate Blood Pressure 138/69 O2 Sat by Pulse 92 L Oximetry Medical Decision Making - Medical Decision Making Upon arrival the patient was placed in room 9. A thorough history and physical exam was performed. IV is established. As the patient has a sepsis criteria I do provide him with a 500 mL bolus of normal saline. He does report that he feels fluid overloaded from his CHF therefore I do hold off on any aggressive re hydration. He is given Tylenol for fever. I did conduct laboratory studies. He is given a DuoNeb breathing treatment. Lab studies show a white blood count of 11.6. Creatinine is mildly elevated at 1.4. BNP is 3450. Influenza A and B are negative. Chest x-ray reveals a pneumonia right lower lobe. I discussed results with the patient. I did discuss diagnosis, differential treatment options. I did recommend admission to the hospital for which patient did agree. I called and discussed the case with Dr. Rizzo who accepted admission. The patient is currently awaiting a bed on the floor - Lab Data Result diagrams: 04/29/19 19:00 04/29/19 19:00 Lab Results 04/29/19 04/29/19 04/29/19 Range/Units 19:00 19:00 19:00 WBC 11.6 H (3.8-10.6) k/uL RBC 4.09 L (4.30-5.90) m/uL Hgb 13.1 (13.0-17.5) gm/dL Hct 37.1 L (39.0-53.0) % MCV 90.8 (80.0-100.0) fL MCH 31.9 (25.0-35.0) pg MCHC 35.2 (31.0-37.0) g/dL RDW 15.1 (11.5-15.5) % Plt Count 194 (150-450) k/uL Neutrophils % 88 % Lymphocytes % 5 % Monocytes % 5 % Eosinophils % 1 % Basophils % 0 % Neutrophils # 10.2 H (1.3-7.7) k/uL Lymphocytes # 0.6 L (1.0-4.8) k/uL Monocytes # 0.6 (0-1.0) k/uL Eosinophils # 0.2 (0-0.7) k/uL Basophils # 0.0 (0-0.2) k/uL Poikilocytosis Slight PT (9.0-12.0) sec INR (<1.2) APTT (22.0-30.0) sec Sodium 139 (137-145) mmol/L Potassium 4.8 (3.5-5.1) mmol/L Chloride 106 (98-107) mmol/L Carbon Dioxide 23 (22-30) mmol/L Anion Gap 10 mmol/L BUN 29 H (9-20) mg/dL Creatinine 1.47 H (0.66-1.25) mg/dL Est GFR (CKD-EPI)AfAm 57 (>60 ml/min/1.73 sqM) Est GFR (CKD-EPI)NonAf 49 (>60 ml/min/1.73 sqM) Glucose 186 H (74-99) mg/dL Plasma Lactic Acid Dwain (0.7-2.0) mmol/L Calcium 9.2 (8.4-10.2) mg/dL Total Bilirubin 1.3 (0.2-1.3) mg/dL AST 32 (17-59) U/L ALT 18 (4-49) U/L Alkaline Phosphatase 40 (38-126) U/L Troponin I (0.000-0.034) ng/mL NT-Pro-B Natriuret Pep pg/mL Total Protein 7.3 (6.3-8.2) g/dL Albumin 4.4 (3.5-5.0) g/dL Influenza Type A RNA Not Detected (Not Detectd) Influenza Type B (PCR) Not Detected (Not Detectd) 04/29/19 04/29/19 04/29/19 Range/Units 19:00 19:00 19:00 WBC (3.8-10.6) k/uL RBC (4.30-5.90) m/uL Hgb (13.0-17.5) gm/dL Hct (39.0-53.0) % MCV (80.0-100.0) fL MCH (25.0-35.0) pg MCHC (31.0-37.0) g/dL RDW (11.5-15.5) % Plt Count (150-450) k/uL Neutrophils % % Lymphocytes % % Monocytes % % Eosinophils % % Basophils % % Neutrophils # (1.3-7.7) k/uL Lymphocytes # (1.0-4.8) k/uL Monocytes # (0-1.0) k/uL Eosinophils # (0-0.7) k/uL Basophils # (0-0.2) k/uL Poikilocytosis PT 9.8 (9.0-12.0) sec INR 0.9 (<1.2) APTT 23.8 (22.0-30.0) sec Sodium (137-145) mmol/L Potassium (3.5-5.1) mmol/L Chloride (98-107) mmol/L Carbon Dioxide (22-30) mmol/L Anion Gap mmol/L BUN (9-20) mg/dL Creatinine (0.66-1.25) mg/dL Est GFR (CKD-EPI)AfAm (>60 ml/min/1.73 sqM) Est GFR (CKD-EPI)NonAf (>60 ml/min/1.73 sqM) Glucose (74-99) mg/dL Plasma Lactic Acid Dwain 1.0 (0.7-2.0) mmol/L Calcium (8.4-10.2) mg/dL Total Bilirubin (0.2-1.3) mg/dL AST (17-59) U/L ALT (4-49) U/L Alkaline Phosphatase (38-126) U/L Troponin I 0.014 (0.000-0.034) ng/mL NT-Pro-B Natriuret Pep pg/mL Total Protein (6.3-8.2) g/dL Albumin (3.5-5.0) g/dL Influenza Type A RNA (Not Detectd) Influenza Type B (PCR) (Not Detectd) 04/29/19 Range/Units 19:00 WBC (3.8-10.6) k/uL RBC (4.30-5.90) m/uL Hgb (13.0-17.5) gm/dL Hct (39.0-53.0) % MCV (80.0-100.0) fL MCH (25.0-35.0) pg MCHC (31.0-37.0) g/dL RDW (11.5-15.5) % Plt Count (150-450) k/uL Neutrophils % % Lymphocytes % % Monocytes % % Eosinophils % % Basophils % % Neutrophils # (1.3-7.7) k/uL Lymphocytes # (1.0-4.8) k/uL Monocytes # (0-1.0) k/uL Eosinophils # (0-0.7) k/uL Basophils # (0-0.2) k/uL Poikilocytosis PT (9.0-12.0) sec INR (<1.2) APTT (22.0-30.0) sec Sodium (137-145) mmol/L Potassium (3.5-5.1) mmol/L Chloride (98-107) mmol/L Carbon Dioxide (22-30) mmol/L Anion Gap mmol/L BUN (9-20) mg/dL Creatinine (0.66-1.25) mg/dL Est GFR (CKD-EPI)AfAm (>60 ml/min/1.73 sqM) Est GFR (CKD-EPI)NonAf (>60 ml/min/1.73 sqM) Glucose (74-99) mg/dL Plasma Lactic Acid Dwain (0.7-2.0) mmol/L Calcium (8.4-10.2) mg/dL Total Bilirubin (0.2-1.3) mg/dL AST (17-59) U/L ALT (4-49) U/L Alkaline Phosphatase (38-126) U/L Troponin I (0.000-0.034) ng/mL NT-Pro-B Natriuret Pep 3450 pg/mL Total Protein (6.3-8.2) g/dL Albumin (3.5-5.0) g/dL Influenza Type A RNA (Not Detectd) Influenza Type B (PCR) (Not Detectd) - EKG Data EKG Comments: EKG demonstrates a sinus rhythm with a first-degree AV block. There is also left bundle branch block. Rate of 97. MN interval 230. Her S1 50. QTC of 474. No sgarbossa criteria. Disposition Clinical Impression: Congestive heart failure, Dyspnea, HCAP (healthcare-associated pneumonia) Disposition: ADMITTED IP TO THIS HOSP Condition: Serious Is patient prescribed a controlled substance at d/c from ED?: No Referrals: None,Stated [Primary Care Provider] - 1-2 days Decision to Admit Reason: Admit from EC Decision Date: 04/29/19 Decision Time: 20:53
[2019-04-29] MEDS ORDERED: IPRATROPIUM-ALBUTEROL 3 ML NEB INHALATION STA (20:54)
[2019-04-29] MEDS ORDERED: VANCOMYCIN IV PER PHARMACY 1 EACH MISC MISCELLANE PRN (20:59)
--- NOTE | 2019-04-29 21:11 | XR ---
EXAMINATION TYPE: XR chest 2V DATE OF EXAM: 04/29/2019 COMPARISON: 03/15/2019 HISTORY: Short of breath. Fever TECHNIQUE: 2 views FINDINGS: There is a mild infiltrate right lower lobe. The other lung laboy are clear. Heart is norm al. There is no pleural effusion. There are chest leads. IMPRESSION: There is a new mild pneumonia right lower lobe compared to last exam. No heart failure.
[2019-04-29] MEDS ORDERED: NALOXONE 0.4 MG/ML 1 ML VIAL IV PRN (21:12)
[2019-04-29] MEDS ORDERED: IBUPROFEN 400 MG TAB PO PRN (21:12)
[2019-04-29] MEDS ORDERED: ACETAMINOPHEN TAB 325 MG TAB PO PRN (21:12)
[2019-04-29] MEDS ORDERED: ALPRAZolam 0.5 MG TAB PO PRN (22:00)
[2019-04-29] MEDS: INSULIN NPH 300 UNIT/3 ML VIAL SQ SCH (22:39)
[2019-04-29] MEDS ORDERED: VANCOMYCIN 1,750 MG in SODIUM CHLORIDE 0.9% 500 ML 500 ML IVPB ONE (23:00)
[2019-04-30 03:27] LABS: Appearance,Urine Clear (Clear); Bilirubin,Urine Negative (Negative); Blood,Urine Negative (Negative); Color,Urine Yellow; Glucose,Urine (UA) Trace (Negative); Ketones,Urine Negative (Negative); Leukocyte Esterase,Urine Negative (Negative); Mucus,Urine Rare /hpf; Nitrite,Urine Negative (Negative); PH, Urine 5.5 (5.0-8.0); Protein,Urine 2+ (Negative); RBC,Urine 1 /hpf (0-5); Specific Gravity,Urine 1.021 (1.001-1.035); Urobilinogen,Urine <2.0 mg/dL (<2.0); WBC,Urine <1 /hpf (0-5)
[2019-04-30 07:08] LABS: Glucose,Whole Blood 168 mg/dL (75-99)
[2019-04-30] MEDS: SPIRONOLACTONE 25 MG TAB PO SCH (07:22)
[2019-04-30] MEDS: INSULIN NPH 300 UNIT/3 ML VIAL SQ SCH ×2 (07:22→16:59)
[2019-04-30] MEDS: CITALOPRAM HYDROBROMIDE 20 MG TAB PO SCH (07:23)
[2019-04-30] MEDS: CARVEDILOL 12.5 MG TAB PO SCH ×2 (07:23→16:59)
[2019-04-30] MEDS: amLODIPine 5 MG TAB PO SCH (07:24)
[2019-04-30] MEDS: ASPIRIN 81 MG PO SCH (07:24)
[2019-04-30] MEDS: INSULIN ASPART (NovoLOG) 100 UNIT/ML VIAL SQ SCH ×4 (07:25→20:35)
[2019-04-30] MEDS: LISINOPRIL 10 MG TAB PO SCH (07:25)
[2019-04-30 08:45] LABS: Basophils % (A) 0 %; Eosinophils # (A) 0.2 k/uL (0-0.7); Eosinophils % (A) 3 %; HCT 37.1 % (39.0-53.0); HGB 12.6 gm/dL (13.0-17.5); Lymphocytes # (A) 0.9 k/uL (1.0-4.8); Lymphocytes % (A) 12 %; MCH 31.7 pg (25.0-35.0); MCHC 34.1 g/dL (31.0-37.0); Mean Platelet Volume 9.2; Monocytes # (A) 0.5 k/uL (0-1.0); Monocytes % (A) 6 %; Neutrophils # (A) 5.9 k/uL (1.3-7.7); Neutrophils % (A) 78 %; Platelet Count 192 k/uL (150-450); Poikilocytosis Slight; RBC 3.99 m/uL (4.30-5.90); RDW 15.1 % (11.5-15.5); WBC 7.6 k/uL (3.8-10.6)
[2019-04-30 08:56] LABS: Potassium 4.6 mmol/L (3.5-5.1)
[2019-04-30 11:56] LABS: Glucose,Whole Blood 216 mg/dL (75-99)
[2019-04-30] MEDS: AZITHROMYCIN 500 MG TAB PO SCH (15:06)
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
[2019-04-30] MEDS: HEPARIN SODIUM,PORCINE 5,000 UNIT/ML 1 ML VIAL SQ SCH ×2 (17:00→23:56)
[2019-04-30 17:01] LABS: Glucose,Whole Blood 162 mg/dL (75-99)
[2019-04-30 20:14] LABS: Glucose,Whole Blood 212 mg/dL (75-99)
[2019-04-30] MEDS ORDERED: ATORVASTATIN 10 MG TAB PO SCH (21:00)
[2019-04-30] MEDS ORDERED: PIPERACILLIN-TAZOBACTAM 3.375 GM in SODIUM CHLORIDE 0.9% 100 ML IVPB SCH (22:00)
[2019-04-30] MEDS ORDERED: VANCOMYCIN 1,750 MG in SODIUM CHLORIDE 0.9% 500 ML 500 ML IVPB SCH (22:00)
[2019-05-01 07:25] LABS: Glucose,Whole Blood 120 mg/dL (75-99)
[2019-05-01] MEDS: amLODIPine 5 MG TAB PO SCH (07:53)
[2019-05-01] MEDS: INSULIN NPH 300 UNIT/3 ML VIAL SQ SCH (07:53)
[2019-05-01] MEDS: SPIRONOLACTONE 25 MG TAB PO SCH (07:53)
[2019-05-01] MEDS: CITALOPRAM HYDROBROMIDE 20 MG TAB PO SCH (07:53)
[2019-05-01] MEDS: CARVEDILOL 12.5 MG TAB PO SCH (07:54)
[2019-05-01] MEDS: LISINOPRIL 10 MG TAB PO SCH (07:54)
[2019-05-01] MEDS: INSULIN ASPART (NovoLOG) 100 UNIT/ML VIAL SQ SCH ×2 (07:54→12:00)
[2019-05-01] MEDS: ASPIRIN 81 MG PO SCH (07:54)
[2019-05-01] MEDS: HEPARIN SODIUM,PORCINE 5,000 UNIT/ML 1 ML VIAL SQ SCH (07:54)
[2019-05-01 08:29] VITALS: BP 146/78; PULSE 93; RESP 16; TEMP 99.3
--- NOTE | 2019-05-01 09:19 | XR ---
EXAMINATION TYPE: XR chest 1V portable DATE OF EXAM: 05/01/2019 COMPARISON: Prior chest x-ray 04/29/2019 HISTORY: Shortness of breath TECHNIQUE: Single frontal view of the chest is obtained. FINDINGS: There is pneumothorax seen. The cardiac silhouette size is stable accounting for differen lorelei in technique which may accentuate the appearance, heart appears borderline enlarged. The osseou s structures are intact. Interstitium is increased. There is blunting of the costophrenic angles. IMPRESSION: Correlate for pulmonary venous hypertension and interstitial edema. Difficult to exclude small effusion, pneumonia. Follow-up recommended.
[2019-05-01] MEDS ORDERED: FUROSEMIDE 10 MG/ML 4 ML VIAL IV STA (11:17)
[2019-05-01] MEDS: AZITHROMYCIN 500 MG TAB PO SCH (12:00)
[2019-05-01 12:21] LABS: Glucose,Whole Blood 168 mg/dL (75-99)
--- NOTE | 2019-05-01 16:10 | P.DS ---
Providers Date of admission: 04/29/19 21:14 Expected date of discharge: 05/01/19 Attending physician: Paco Vanessa MD Primary care physician: Stated None Hospital Course: Final diagnosis -Sepsis secondary to right lower lobe pneumonia -Congestive heart heart failure chronic systolic dysfunction -Type 2 diabetes mellitus -Hypertension -Obesity -Not chronic kidney disease stage III from diabetic nephropathy there may be a component of acute renal failure. -Hyperlipidemia -DVT prophylaxis Discharge disposition Patient is being discharged in a stable condition with guarded prognosis to home and will follow-up with primary care provider in the outpatient setting. Patient is currently moving to [place] and will establish with a primary care provider there. Patient will continue on oral antibiotics in the form of Ceftin 500 mg twice daily for the next 5 days. Total time taken is 35 minutes. History of present illness This is a 64-year-old male who was recently admitted with shortness of breath and nonproductive cough and was found to have a right lower lobe pneumonia with minimal infiltrate and was being closely monitored. Creatinine is slightly elevated and will need repeat labs in 2-3 days in the outpatient setting. Current creatinine trending down and is 1.24. Discussed with the patient at length about getting established with a primary care provider as he is recently moved from [facility] and will be moving to [place] soon. 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 Patient verbalized understanding and agrees with this. Patient will continue on a short course of oral antibiotics in the form of Ceftin twice daily for the next 5 days. Patient was given a dose of IV Lasix prior to discharge and will resume oral Lasix dose upon discharge. Patient is adamant about going home today and states that he feels much better. Currently patient denies any shortness of breath, chest pain, or palpitations. Patient denies any nausea or vomiting and has been tolerating diet. On exam vital signs are stable. Temp is 99.3F, pulse is 93, respirations are 16, blood pressure is 146/78, oxygen saturation is 90 sent on room air. Cardio S1, S2 are present. Respiratory system shows diminished breath sounds at the bases with mild crackles noted. Abdomen is soft and nontender. Nervous system shows no focal deficits. Please refer to medication reconciliation sheet for a list of medications. Patient Condition at Discharge: Stable Plan - Discharge Summary Discharge Rx Participant: Yes New Discharge Prescriptions: New Cefuroxime Axetil [Ceftin] 500 mg PO BID 5 Days #10 tab Continue Nitroglycerin Sl Tabs [Nitrostat] 0.4 mg SUBLINGUAL Q5M PRN PRN Reason: Chest Pain Simvastatin [Zocor] 10 mg PO HS Citalopram Hydrobromide [Citalopram HBr] 20 mg PO DAILY glipiZIDE [Glucotrol] 5 mg PO AC-BRKFST amLODIPine [Norvasc] 5 mg PO DAILY ALPRAZolam [Xanax] 0.5 mg PO DAILY PRN PRN Reason: Anxiety Carvedilol 25 mg PO BID metFORMIN HCL [Glucophage] 1,000 mg PO AC-BID Enalapril [Vasotec] 10 mg PO DAILY Insulin NPH Human Isophane [NovoLIN N] 40 unit SQ AC-BID Spironolactone [Aldactone] 50 mg PO DAILY #30 tab Furosemide [Lasix] 40 mg PO BID #60 tab Aspirin 81 mg PO HS Discharge Medication List ALPRAZolam [Xanax] 0.5 mg PO DAILY PRN 10/20/17 [History] Carvedilol 25 mg PO BID 10/20/17 [History] Citalopram Hydrobromide [Citalopram HBr] 20 mg PO DAILY 10/20/17 [History] Nitroglycerin Sl Tabs [Nitrostat] 0.4 mg SUBLINGUAL Q5M PRN 10/20/17 [History] Simvastatin [Zocor] 10 mg PO HS 10/20/17 [History] amLODIPine [Norvasc] 5 mg PO DAILY 10/20/17 [History] glipiZIDE [Glucotrol] 5 mg PO AC-BRKFST 10/20/17 [History] metFORMIN HCL [Glucophage] 1,000 mg PO AC-BID 10/20/17 [History] Enalapril [Vasotec] 10 mg PO DAILY 03/11/19 [History] Insulin NPH Human Isophane [NovoLIN N] 40 unit SQ AC-BID 03/12/19 [History] Furosemide [Lasix] 40 mg PO BID #60 tab 03/16/19 [Rx] Spironolactone [Aldactone] 50 mg PO DAILY #30 tab 03/16/19 [Rx] Aspirin 81 mg PO HS 04/29/19 [History] Cefuroxime Axetil [Ceftin] 500 mg PO BID 5 Days #10 tab 05/01/19 [Rx] Follow up Appointment(s)/Referral(s): None,Stated [Primary Care Provider] - 1-2 days Ambulatory/Diagnostic Orders: Basic Metabolic Panel [LAB.AMB] Time Frame: 2 Days, Location: None Selected Patient Instructions/Handouts: Heart Failure (DC), Pneumonia (DC) Activity/Diet/Wound Care/Special Instructions: Activity limited until follow up encouraged fluids and rest continue taking antibiotics until finished repeat labs in 2-3 days continue to monitor blood sugars and keep a log for follow up with primary care provider establish with a primary doctor in [place] once moved there follow up with cardiology in one-two weeks Discharge Disposition: HOME SELF-CARE
== END 2019-05-01 13:39 | disposition home or self-care (01) | DRG 871 ==
LOC: EC 19:03 → 4SSUR 21:14
PROVIDERS: ADMIT Internal Medicine; ATTEND Internal Medicine
DX: A41.9 Sepsis, unspecified organism (principal); J18.9 Pneumonia, unspecified organism; I50.22 Chronic systolic (congestive) heart failure; N17.9 Acute kidney failure, unspecified; I11.0 Hypertensive heart disease with heart failure; E66.9 Obesity, unspecified; E78.5 Hyperlipidemia, unspecified; F41.9 Anxiety disorder, unspecified; I25.10 Atherosclerotic heart disease of native coronary artery without angina pectoris; I25.2 Old myocardial infarction; E11.9 Type 2 diabetes mellitus without complications; Z79.4 Long term (current) use of insulin; Z79.82 Long term (current) use of aspirin; Z79.899 Other long term (current) drug therapy; Z88.1 Allergy status to other antibiotic agents; Z95.5 Presence of coronary angioplasty implant and graft; Z68.27 Body mass index [BMI] 27.0-27.9, adult; Z82.49 Family history of ischemic heart disease and other diseases of the circulatory system; Z83.3 Family history of diabetes mellitus; Y95 Nosocomial condition
CPT/HCPCS: 36415; 71045; 71046; 80048; 80053; 81001; 82565; 83605; 83880; 84484; 85025; 85610; 85730; 87040; 87502; 93005; 94640; 96360; 99285

== ENCOUNTER 2019-05-05 19:42 | Inpatient (IN) | payer MEDICARE ==
[2019-05-05] MEDS ORDERED: FUROSEMIDE 10 MG/ML 4 ML VIAL IV STA (20:07)
[2019-05-05] MEDS ORDERED: ALPRAZolam 0.5 MG TAB PO STA (20:15)
[2019-05-05 20:23] LABS: Basophils % (A) 1 %; Eosinophils # (A) 0.3 k/uL (0-0.7); Eosinophils % (A) 4 %; HCT 37.4 % (39.0-53.0); HGB 12.1 gm/dL (13.0-17.5); Lymphocytes # (A) 0.8 k/uL (1.0-4.8); Lymphocytes % (A) 10 %; MCH 30.3 pg (25.0-35.0); MCHC 32.5 g/dL (31.0-37.0); MCV 93.1 fL (80.0-100.0); Mean Platelet Volume 7.8; Monocytes # (A) 0.4 k/uL (0-1.0); Monocytes % (A) 5 %; Neutrophils # (A) 6.4 k/uL (1.3-7.7); Neutrophils % (A) 80 %; Platelet Count 325 k/uL (150-450); Poikilocytosis Slight; RBC 4.01 m/uL (4.30-5.90); RDW 15.8 % (11.5-15.5); WBC 8.1 k/uL (3.8-10.6)
[2019-05-05 20:32] LABS: Albumin 4.5 g/dL (3.5-5.0); Calcium 9.5 mg/dL (8.4-10.2); Magnesium 1.9 mg/dL (1.6-2.3); Potassium 4.7 mmol/L (3.5-5.1); Total Protein 7.2 g/dL (6.3-8.2)
--- NOTE | 2019-05-05 20:34 | XR ---
EXAMINATION TYPE: XR chest 2V DATE OF EXAM: 05/05/2019 COMPARISON: 05/01/2019 HISTORY: Short of breath TECHNIQUE: Single view FINDINGS: Heart is enlarged. There is pulmonary vascular congestion. There is some blunting of the co stophrenic angles bilaterally. There are chest leads. IMPRESSION: There is evidence of congestive heart failure and pleural fluid slightly worse than last exam. Pneumonia not excluded.
--- NOTE | 2019-05-05 20:52 | ED ---
General Adult HPI - General Chief complaint: Shortness of Breath Stated complaint: SOB Time Seen by Provider: 05/05/19 19:52 Source: patient, RN notes reviewed, old records reviewed Mode of arrival: ambulatory Limitations: no limitations - History of Present Illness Initial comments: 64-year-old male presenting for evaluation of dyspnea. Patient has history of congestive heart failure currently taking 40 mg of Lasix twice daily. She's noted lower extremity edema. He has orthopnea. He was recently discharged from the hospital with congestive heart failure and outpatient treatment for pneumonia. No history of asthma or COPD. No history DVT or PE. He does have history of coronary artery disease with denies chest pain. Denies fever. Denies significant cough. - Related Data Home Medications Medication Instructions Recorded Confirmed ALPRAZolam [Xanax] 0.5 mg PO DAILY PRN 10/20/17 04/29/19 Carvedilol 25 mg PO BID 10/20/17 04/29/19 Citalopram Hydrobromide 20 mg PO DAILY 10/20/17 04/29/19 [Citalopram HBr] Nitroglycerin Sl Tabs [Nitrostat] 0.4 mg SUBLINGUAL Q5M PRN 10/20/17 04/29/19 Simvastatin [Zocor] 10 mg PO HS 10/20/17 04/29/19 amLODIPine [Norvasc] 5 mg PO DAILY 10/20/17 04/29/19 glipiZIDE [Glucotrol] 5 mg PO AC-BRKFST 10/20/17 04/29/19 metFORMIN HCL [Glucophage] 1,000 mg PO AC-BID 10/20/17 04/29/19 Enalapril [Vasotec] 10 mg PO DAILY 03/11/19 04/29/19 Insulin NPH Human Isophane 40 unit SQ AC-BID 03/12/19 04/29/19 [NovoLIN N] Aspirin 81 mg PO HS 04/29/19 04/29/19 Previous Rx's Medication Instructions Recorded Furosemide [Lasix] 40 mg PO BID #60 tab 03/16/19 Spironolactone [Aldactone] 50 mg PO DAILY #30 tab 03/16/19 Cefuroxime Axetil [Ceftin] 500 mg PO BID 5 Days #10 tab 05/01/19 Allergies Allergy/AdvReac Type Severity Reaction Status Date / Time ciprofloxacin [From Cipro] Allergy Rash/Hives Verified 05/05/19 19:51 Review of Systems ROS Statement: Those systems with pertinent positive or pertinent negative responses have been documented in the HPI. ROS Other: All systems not noted in ROS Statement are negative. Past Medical History Past Medical History: Coronary Artery Disease (CAD), Diabetes Mellitus, Hyperlipidemia, Hypertension, Myocardial Infarction ([place]) Last Myocardial Infarction Date:: May 18, 2003 History of Any Multi-Drug Resistant Organisms: None Reported Past Surgical History: Heart Catheterization With Stent, Orthopedic Surgery Past Anesthesia/Blood Transfusion Reactions: No Reported Reaction Date of Last Stent Placement:: 2012 Past Psychological History: Anxiety Smoking Status: Never smoker Past Alcohol Use History: Occasional Past Drug Use History: None Reported - Past Family History family Additional Family Medical History / Comment(s): Mother with history of diabetes mellitus and CAD, father with history of heart disease and diabetes General Exam Limitations: no limitations General appearance: alert, in distress Head exam: Present: atraumatic, normocephalic Eye exam: Present: normal appearance, PERRL ENT exam: Present: normal exam Neck exam: Present: normal inspection. Absent: tenderness, meningismus Respiratory exam: Present: respiratory distress, rales, decreased breath sounds Cardiovascular Exam: Present: regular rate, normal rhythm, systolic murmur GI/Abdominal exam: Present: soft. Absent: distended, tenderness, guarding Extremities exam: Present: normal capillary refill, pedal edema Neurological exam: Present: alert, oriented X3 Psychiatric exam: Present: normal affect, normal mood Skin exam: Present: warm, dry, intact. Absent: cyanosis, diaphoretic Course Vital Signs 05/05/19 05/05/19 05/05/19 19:48 20:00 20:08 Temperature 98 F 98.0 F Pulse Rate 99 99 Respiratory 30 H 23 26 H Rate Blood Pressure 158/91 139/92 O2 Sat by Pulse 85 L 90 L Oximetry 05/05/19 05/05/19 05/05/19 20:26 20:38 21:00 Temperature 98.0 F 98.4 F Pulse Rate 93 92 95 Respiratory 25 H 24 19 Rate Blood Pressure 143/84 143/84 131/97 O2 Sat by Pulse 93 L 94 L 96 Oximetry EKG Findings - EKG Comments: EKG Findings:: EKG: Sinus rhythm with first-degree AV block nonspecific intraventricular conduction delay similar compared to previous EKG obtained 6 days prior. Rate of 98, NJ interval 232, QRS duration 162, QTC 480, no ST segment elevation Medical Decision Making - Medical Decision Making 64-year-old male with recent hospitalization for congestive heart failure presenting with history and exam suggestive of worsening heart failure. X-ray showing pulmonary edema and bilateral effusions, patient has lower extremity edema. He has elevated BNP of 4400. Negative troponin. Other laboratory studi es are stable including stable mild anemia and stable creatinine. He is given a dose of 40 mg Lasix in the emergency department. He is currently taking 40 mg orally twice daily. He will be admitted for IV diuresis. Cardiology placed on consult. Case discussed with the admitting physician Dr. Mari. - Lab Data Result diagrams: 05/05/19 20:10 05/05/19 20:10 Lab Results 05/05/19 05/05/19 05/05/19 Range/Units 20:10 20:10 20:10 WBC 8.1 (3.8-10.6) k/uL RBC 4.01 L (4.30-5.90) m/uL Hgb 12.1 L (13.0-17.5) gm/dL Hct 37.4 L (39.0-53.0) % MCV 93.1 (80.0-100.0) fL MCH 30.3 (25.0-35.0) pg MCHC 32.5 (31.0-37.0) g/dL RDW 15.8 H (11.5-15.5) % Plt Count 325 (150-450) k/uL Neutrophils % 80 % Lymphocytes % 10 % Monocytes % 5 % Eosinophils % 4 % Basophils % 1 % Neutrophils # 6.4 (1.3-7.7) k/uL Lymphocytes # 0.8 L (1.0-4.8) k/uL Monocytes # 0.4 (0-1.0) k/uL Eosinophils # 0.3 (0-0.7) k/uL Basophils # 0.0 (0-0.2) k/uL Poikilocytosis Slight PT (9.0-12.0) sec INR (<1.2) APTT (22.0-30.0) sec Sodium 143 (137-145) mmol/L Potassium 4.7 (3.5-5.1) mmol/L Chloride 108 H (98-107) mmol/L Carbon Dioxide 24 (22-30) mmol/L Anion Gap 11 mmol/L BUN 29 H (9-20) mg/dL Creatinine 1.29 H (0.66-1.25) mg/dL Est GFR (CKD-EPI)AfAm 67 (>60 ml/min/1.73 sqM) Est GFR (CKD-EPI)NonAf 58 (>60 ml/min/1.73 sqM) Glucose 258 H (74-99) mg/dL Plasma Lactic Acid Dwain 1.2 (0.7-2.0) mmol/L Calcium 9.5 (8.4-10.2) mg/dL Magnesium 1.9 (1.6-2.3) mg/dL Total Bilirubin 1.0 (0.2-1.3) mg/dL AST 28 (17-59) U/L ALT 22 (4-49) U/L Alkaline Phosphatase 48 (38-126) U/L Troponin I (0.000-0.034) ng/mL NT-Pro-B Natriuret Pep pg/mL Total Protein 7.2 (6.3-8.2) g/dL Albumin 4.5 (3.5-5.0) g/dL Influenza Type A RNA (Not Detectd) Influenza Type B (PCR) (Not Detectd) 05/05/19 05/05/19 05/05/19 Range/Units 20:10 20:10 20:10 WBC (3.8-10.6) k/uL RBC (4.30-5.90) m/uL Hgb (13.0-17.5) gm/dL Hct (39.0-53.0) % MCV (80.0-100.0) fL MCH (25.0-35.0) pg MCHC (31.0-37.0) g/dL RDW (11.5-15.5) % Plt Count (150-450) k/uL Neutrophils % % Lymphocytes % % Monocytes % % Eosinophils % % Basophils % % Neutrophils # (1.3-7.7) k/uL Lymphocytes # (1.0-4.8) k/uL Monocytes # (0-1.0) k/uL Eosinophils # (0-0.7) k/uL Basophils # (0-0.2) k/uL Poikilocytosis PT 10.3 (9.0-12.0) sec INR 1.0 (<1.2) APTT 25.0 (22.0-30.0) sec Sodium (137-145) mmol/L Potassium (3.5-5.1) mmol/L Chloride (98-107) mmol/L Carbon Dioxide (22-30) mmol/L Anion Gap mmol/L BUN (9-20) mg/dL Creatinine (0.66-1.25) mg/dL Est GFR (CKD-EPI)AfAm (>60 ml/min/1.73 sqM) Est GFR (CKD-EPI)NonAf (>60 ml/min/1.73 sqM) Glucose (74-99) mg/dL Plasma Lactic Acid Dwain (0.7-2.0) mmol/L Calcium (8.4-10.2) mg/dL Magnesium (1.6-2.3) mg/dL Total Bilirubin (0.2-1.3) mg/dL AST (17-59) U/L ALT (4-49) U/L Alkaline Phosphatase (38-126) U/L Troponin I <0.012 (0.000-0.034) ng/mL NT-Pro-B Natriuret Pep 4420 pg/mL Total Protein (6.3-8.2) g/dL Albumin (3.5-5.0) g/dL Influenza Type A RNA (Not Detectd) Influenza Type B (PCR) (Not Detectd) 05/05/19 Range/Units 20:30 WBC (3.8-10.6) k/uL RBC (4.30-5.90) m/uL Hgb (13.0-17.5) gm/dL Hct (39.0-53.0) % MCV (80.0-100.0) fL MCH (25.0-35.0) pg MCHC (31.0-37.0) g/dL RDW (11.5-15.5) % Plt Count (150-450) k/uL Neutrophils % % Lymphocytes % % Monocytes % % Eosinophils % % Basophils % % Neutrophils # (1.3-7.7) k/uL Lymphocytes # (1.0-4.8) k/uL Monocytes # (0-1.0) k/uL Eosinophils # (0-0.7) k/uL Basophils # (0-0.2) k/uL Poikilocytosis PT (9.0-12.0) sec INR (<1.2) APTT (22.0-30.0) sec Sodium (137-145) mmol/L Potassium (3.5-5.1) mmol/L Chloride (98-107) mmol/L Carbon Dioxide (22-30) mmol/L Anion Gap mmol/L BUN (9-20) mg/dL Creatinine (0.66-1.25) mg/dL Est GFR (CKD-EPI)AfAm (>60 ml/min/1.73 sqM) Est GFR (CKD-EPI)NonAf (>60 ml/min/1.73 sqM) Glucose (74-99) mg/dL Plasma Lactic Acid Dwain (0.7-2.0) mmol/L Calcium (8.4-10.2) mg/dL Magnesium (1.6-2.3) mg/dL Total Bilirubin (0.2-1.3) mg/dL AST (17-59) U/L ALT (4-49) U/L Alkaline Phosphatase (38-126) U/L Troponin I (0.000-0.034) ng/mL NT-Pro-B Natriuret Pep pg/mL Total Protein (6.3-8.2) g/dL Albumin (3.5-5.0) g/dL Influenza Type A RNA Not Detected (Not Detectd) Influenza Type B (PCR) Not Detected (Not Detectd) Disposition Clinical Impression: Congestive heart failure Disposition: ADMITTED IP TO THIS HOSP Condition: Stable Is patient prescribed a controlled substance at d/c from ED?: No Referrals: None,Stated [Primary Care Provider] - 1-2 days Decision to Admit Reason: Admit from EC Decision Date: 05/05/19 Decision Time: 21:11
[2019-05-05 21:05] LABS: Prothrombin Time 10.3 sec (9.0-12.0)
[2019-05-05] MEDS ORDERED: ALPRAZolam 0.5 MG TAB PO PRN (21:07)
[2019-05-05] MEDS ORDERED: NITROGLYCERIN SL TABS 0.4 MG TAB SUBLINGUAL PRN (21:07)
[2019-05-05] MEDS ORDERED: NALOXONE 0.4 MG/ML 1 ML VIAL IV PRN (21:08)
[2019-05-05] MEDS ORDERED: ACETAMINOPHEN TAB 325 MG TAB PO PRN (21:08)
[2019-05-05] MEDS ORDERED: MORPHINE SULFATE 4 MG/ML SYRINGE IV PRN (21:08)
[2019-05-06 06:39] LABS: Glucose,Whole Blood 160 mg/dL (75-99)
[2019-05-06] MEDS: metFORMIN 500 MG TAB PO SCH ×2 (06:58→18:48)
[2019-05-06] MEDS: glipiZIDE 5 MG TAB PO SCH (06:58)
[2019-05-06] MEDS ORDERED: CARVEDILOL 12.5 MG TAB PO SCH (07:30)
[2019-05-06] MEDS: INSULIN NPH 300 UNIT/3 ML VIAL SQ SCH ×2 (07:41→18:48)
[2019-05-06] MEDS ORDERED: amLODIPine 5 MG TAB PO SCH (09:00)
[2019-05-06] MEDS: FUROSEMIDE 10 MG/ML 4 ML VIAL IV SCH ×2 (09:05→20:14)
[2019-05-06] MEDS: SPIRONOLACTONE 25 MG TAB PO SCH (09:05)
[2019-05-06] MEDS: LISINOPRIL 20 MG TAB PO SCH (09:05)
[2019-05-06 10:12] VITALS: BMI 33.3
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
[2019-05-06 11:58] LABS: Glucose,Whole Blood 251 mg/dL (75-99)
[2019-05-06 12:54] LABS: Calcium 9.4 mg/dL (8.4-10.2); Potassium 4.7 mmol/L (3.5-5.1)
[2019-05-06] MEDS: CARVEDILOL 12.5 MG TAB PO SCH (18:48)
[2019-05-06 18:49] LABS: Glucose,Whole Blood 179 mg/dL (75-99)
--- NOTE | 2019-05-06 18:59 | NM ---
EXAMINATION TYPE: NM pul vent and perfuse DATE OF EXAM: 05/06/2019 COMPARISON: NONE HISTORY: TECHNIQUE: Utilizing inhalation of 31.7 mCi Tc 99m DTPA aerosol and intravenous injection of 4.94 mC i of Tc 99m MAA, ventilation and perfusion images are acquired post injection in multiple projections . FINDINGS: There are subsegmental peripheral ventilation abnormalities in both lungs. There is no ventilation/pe rfusion mismatch. The perfusion images are fairly normal. The chest x-ray yesterday show some pulmona ry interstitial edema. IMPRESSION: There is evidence for some airway disease. There is low probability of pulmonary embolism.
[2019-05-06] MEDS: ASPIRIN 81 MG PO SCH (20:14)
[2019-05-06] MEDS: ATORVASTATIN 20 MG TAB PO SCH (20:14)
[2019-05-06 20:52] LABS: Glucose,Whole Blood 196 mg/dL (75-99)
[2019-05-06] MEDS ORDERED: ATORVASTATIN 10 MG TAB PO SCH (21:00)
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
[2019-05-06] MEDS: HEPARIN SODIUM,PORCINE 5,000 UNIT/ML 1 ML VIAL SQ SCH (23:46)
[2019-05-07 06:37] LABS: Basophils % (A) 1 %; Eosinophils # (A) 0.3 k/uL (0-0.7); Eosinophils % (A) 4 %; HCT 34.7 % (39.0-53.0); HGB 11.5 gm/dL (13.0-17.5); Hypochromasia Slight; Lymphocytes # (A) 0.8 k/uL (1.0-4.8); Lymphocytes % (A) 13 %; MCH 31.3 pg (25.0-35.0); MCHC 33.2 g/dL (31.0-37.0); MCV 94.2 fL (80.0-100.0); Mean Platelet Volume 7.7; Monocytes # (A) 0.4 k/uL (0-1.0); Monocytes % (A) 6 %; Neutrophils # (A) 4.5 k/uL (1.3-7.7); Neutrophils % (A) 75 %; Platelet Count 282 k/uL (150-450); Poikilocytosis Moderate; RBC 3.68 m/uL (4.30-5.90); RDW 15.9 % (11.5-15.5)
[2019-05-07 06:43] LABS: Glucose,Whole Blood 97 mg/dL (75-99)
[2019-05-07 06:54] LABS: Calcium 9.2 mg/dL (8.4-10.2); Potassium 4.2 mmol/L (3.5-5.1)
[2019-05-07] MEDS: metFORMIN 500 MG TAB PO SCH ×2 (07:03→17:44)
[2019-05-07] MEDS: INSULIN NPH 300 UNIT/3 ML VIAL SQ SCH ×2 (07:03→17:44)
[2019-05-07] MEDS: CARVEDILOL 12.5 MG TAB PO SCH ×2 (07:03→17:43)
[2019-05-07] MEDS: glipiZIDE 5 MG TAB PO SCH (07:03)
[2019-05-07] MEDS: FUROSEMIDE 10 MG/ML 4 ML VIAL IV SCH ×2 (08:36→20:30)
[2019-05-07] MEDS: SPIRONOLACTONE 25 MG TAB PO SCH (08:36)
[2019-05-07] MEDS: LISINOPRIL 20 MG TAB PO SCH (08:36)
[2019-05-07] MEDS: HEPARIN SODIUM,PORCINE 5,000 UNIT/ML 1 ML VIAL SQ SCH ×2 (08:41→16:10)
[2019-05-07 11:44] LABS: Glucose,Whole Blood 80 mg/dL (75-99)
--- NOTE | 2019-05-07 13:07 | P.PN ---
Subjective Progress Note Date: 05/07/19 Patient is a 64-year-old male with a past medical history significant for CAD status post stenting, ischemic cardiomyopathy, hypertension, diabetes, dyslipidemia who presented with complaints of worsening shortness of breath. 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 He presented to the hospital in mid March with complaints of shortness of breath and chest tightness and was found to have abnormal troponins. He underwent coronary angiography which showed jena 3 vessel CAD with chronic total occlusion of the RCA, moderate diffuse disease in the cir cumflex and no focal hemodynamically significant lesions in the LAD, stent patent. Echocardiogram showed severe global hypokinesis, EF 25-30%. At that time an ICD was recommended but he refused it. Around he again presented to the emergency department with complaints of shortness of breath and was diagnosed and treated for right lower lobe pneumonia. Yesterday he again developed worsening shortness of breath and describes it as feeling like he can't get a deep breath in. Denies any productive cough or chest pain. Upon presentation to the emergency department yesterday he was hypoxic. EKG shows sinus rhythm with first-degree AV block, left bundle branch block morphology. Chest x-ray showed worsening pleural effusions. Labs are significant for BUN 29, creatinine 1.29, troponin less than 0.012, BNP 4420. He has been started on IV Lasix. Patient seen and examined sitting up in his chair. States his breathing has improved somewhat. He was able to sleep comfortably on his side, lying flat, no orthopnea or PND. Denies any chest pain. 05/07/2019 Patient was seen and examined this morning, diuresed well through the night last night and states that his breathing is considerably improved from admission here. His weight is down 3 kg today. Blood pressure 115/60 with a heart rate in the 60s, 96% on 2 L of oxygen. White blood cell count 6.0, hemoglobin 11.5, platelet count 282. Sodium 141, potassium 4.2, BUN 20, creatinine 1.1. We'll continue the patient on current dose of IV Lasix. We will also discontinue the ROSA MARIA inhibitor today and start the patient on a contrast O in 48 hours. Objective - Vital Signs Vital signs: Vital Signs Temp 98.1 F 05/07/19 08:25 Pulse 65 05/07/19 11:30 Resp 16 05/07/19 11:30 BP 115/66 05/07/19 11:30 Pulse Ox 96 05/07/19 11:30 Intake & Output 05/06/19 05/07/19 05/07/19 18:59 06:59 18:59 Intake Total 460 670 240 Output Total 2500 350 700 Balance -2040 320 -460 Weight 105.3 kg 102 kg Intake: IV 30 10 0 Invasive Line 1 30 10 0 Oral 430 660 240 Output: Urine 2500 350 700 Other: # Bowel Movements 1 - Exam Patient is afebrile, pulse 71, respirations 18, blood pressure 67, oxygen saturation 95% on 2 L nasal cannula Patient seen and examined sitting up in the chair, in no acute distress Bilateral breath sounds improved air entry bilaterally Heart is regular, no audible murmurs Slightly elevated JVD 1+ pitting edema bilaterally - Labs CBC & Chem 7: 05/07/19 06:08 05/07/19 06:08 Labs: Abnormal Lab Results - Last 24 Hours (Table) 05/06/19 05/06/19 05/07/19 Range/Units 18:47 20:51 06:08 RBC (4.30-5.90) m/uL Hgb (13.0-17.5) gm/dL Hct (39.0-53.0) % RDW (11.5-15.5) % Lymphocytes # (1.0-4.8) k/uL Chloride 108 H (98-107) mmol/L POC Glucose (mg/dL) 179 H 196 H (75-99) mg/dL 05/07/19 Range/Units 06:08 RBC 3.68 L (4.30-5.90) m/uL Hgb 11.5 L (13.0-17.5) gm/dL Hct 34.7 L (39.0-53.0) % RDW 15.9 H (11.5-15.5) % Lymphocytes # 0.8 L (1.0-4.8) k/uL Chloride (98-107) mmol/L POC Glucose (mg/dL) (75-99) mg/dL Microbiology - Last 24 Hours (Table) 05/05/19 20:10 Blood Culture - Preliminary Blood No Growth after 24 hours Assessment and Plan Plan: Assessment and plan #1 systolic congestive heart failure acute on chronic #2 severe ischemic cardiomyopathy #3 coronary artery disease with prior stenting, recent coronary angiogram revealed 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 Continue IV Lasix for 24 hours. Patient is also now in agreement to have placement of AICD as an outpatient. Possible discharge home in 24 hours if stable. DNP note has been reviewed, I agree with a documented findings and plan of care. Patient was seen and examined.
[2019-05-07 16:35] LABS: Glucose,Whole Blood 141 mg/dL (75-99)
[2019-05-07] MEDS: ATORVASTATIN 20 MG TAB PO SCH (20:30)
[2019-05-07] MEDS: ASPIRIN 81 MG PO SCH (20:30)
[2019-05-07 20:48] LABS: Glucose,Whole Blood 136 mg/dL (75-99)
[2019-05-08] MEDS: HEPARIN SODIUM,PORCINE 5,000 UNIT/ML 1 ML VIAL SQ SCH ×2 (01:18→08:31)
[2019-05-08] MEDS: INSULIN NPH 300 UNIT/3 ML VIAL SQ SCH (06:59)
[2019-05-08] MEDS: metFORMIN 500 MG TAB PO SCH (06:59)
[2019-05-08] MEDS: CARVEDILOL 12.5 MG TAB PO SCH (06:59)
[2019-05-08] MEDS: glipiZIDE 5 MG TAB PO SCH (06:59)
[2019-05-08 07:29] LABS: Glucose,Whole Blood 119 mg/dL (75-99)
[2019-05-08 08:01] LABS: Calcium 9.4 mg/dL (8.4-10.2); Potassium 4.4 mmol/L (3.5-5.1)
[2019-05-08] MEDS: FUROSEMIDE 10 MG/ML 4 ML VIAL IV SCH (08:31)
[2019-05-08] MEDS: SPIRONOLACTONE 25 MG TAB PO SCH (08:32)
[2019-05-08 12:06] VITALS: RESP 14; TEMP 98.1
[2019-05-08 12:09] VITALS: BP 121/74; PULSE 68
[2019-05-08 12:11] LABS: Glucose,Whole Blood 124 mg/dL (75-99)
--- NOTE | 2019-05-08 12:15 | P.PN ---
Subjective Progress Note Date: 05/08/19 Patient is a 64-year-old male with a past medical history significant for CAD status post stenting, ischemic cardiomyopathy, hypertension, diabetes, dyslipidemia who presented with complaints of worsening shortness of breath. Patient recently moved here from [place] and does not follow with a pilot fuel engineer locally. He presented to the hospital in mid March with complaints of shortness of breath and chest tightness and was found to have abnormal troponins. He underwent coronary angiography which showed [place] 3 vessel CAD with chronic total occlusion of the RCA, moderate diffuse disease in the cir cumflex and no focal hemodynamically significant lesions in the LAD, stent patent. Echocardiogram showed severe global hypokinesis, EF 25-30%. At that time an ICD was recommended but he refused it. Around he again presented to the emergency department with complaints of shortness of breath and was diagnosed and treated for right lower lobe pneumonia. Yesterday he again developed worsening shortness of breath and describes it as feeling like he can't get a deep breath in. Denies any productive cough or chest pain. Upon presentation to the emergency department yesterday he was hypoxic. EKG shows sinus rhythm with first-degree AV block, left bundle branch block morphology. Chest x-ray showed worsening pleural effusions. Labs are significant for BUN 29, creatinine 1.29, troponin less than 0.012, BNP 4420. He has been started on IV Lasix. Patient seen and examined sitting up in his chair. States his breathing has improved somewhat. He was able to sleep comfortably on his side, lying flat, no orthopnea or PND. Denies any chest pain. 05/07/2019 Patient was seen and examined this morning, diuresed well through the night last night and states that his breathing is considerably improved from admission here. His weight is down 3 kg today. Blood pressure 115/60 with a heart rate in the 60s, 96% on 2 L of oxygen. White blood cell count 6.0, hemoglobin 11.5, platelet count 282. Sodium 141, potassium 4.2, BUN 20, creatinine 1.1. We'll continue the patient on current dose of IV Lasix. We will also discontinue the ROSA MARIA inhibitor today and start the patient on a contrast O in 48 hours. 05/08/2019 Patient seen and examined this morning, continued to diurese well through the night last night. Overall his breathing is stable. Lungs are clear today.let pressure 120/70 with a heart rate in the 60s.sodium 143, potassium 4.4, BUN 21 , creatinine 1.2 Objective - Vital Signs Vital signs: Vital Signs Temp 98.1 F 05/08/19 12:00 Pulse 68 05/08/19 12:00 Resp 14 05/08/19 12:00 BP 121/74 05/08/19 12:00 Pulse Ox 93 L 05/08/19 12:00 Intake & Output 05/07/19 05/08/19 05/08/19 18:59 06:59 18:59 Intake Total 480 0 458 Output Total 700 500 500 Balance -220 -500 -42 Weight 98.4 kg Intake: IV 0 0 0 Invasive Line 1 0 0 0 Oral 480 458 Output: Urine 700 500 500 Other: # Voids 1 2 # Bowel Movements 1 - Exam Patient is afebrile, pulse 71, respirations 18, blood pressure 67, oxygen saturation 95% on 2 L nasal cannula Patient seen and examined sitting up in the chair, in no acute distress Bilateral breath sounds improved air entry bilaterally Heart is regular, no audible murmurs Slightly elevated JVD no evidence of any edema bilaterally to the lower extremity - Labs CBC & Chem 7: 05/07/19 06:08 05/08/19 07:05 Labs: Abnormal Lab Results - Last 24 Hours (Table) 05/07/19 05/07/19 05/08/19 Range/Units 16:35 20:47 06:56 BUN (9-20) mg/dL POC Glucose (mg/dL) 141 H 136 H 119 H (75-99) mg/dL 05/08/19 05/08/19 Range/Units 07:05 12:09 BUN 21 H (9-20) mg/dL POC Glucose (mg/dL) 124 H (75-99) mg/dL Microbiology - Last 24 Hours (Table) 05/05/19 20:10 Blood Culture - Preliminary Blood No Growth after 48 hours Assessment and Plan Plan: Assessment and plan #1 systolic congestive heart failure acute on chronic #2 severe ischemic cardiomyopathy #3 coronary artery disease with prior stenting, recent coronary angiogram revealed 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 He may be able to be discharged home today from our standpoint. We'll make him a follow-up appointment to see Dr. Owens in the office next week. Patient will also be started on Entresto from tomorrow, his ROSA MARIA inhibitor as well as his Norvasc have been discontinued. DNP note has been reviewed, I agree with a documented findings and plan of care. Patient was seen and examined.
[2019-05-08] MEDS ORDERED: FUROSEMIDE 20 MG TAB PO SCH (16:00)
--- NOTE | 2019-05-24 21:50 | P.PN ---
Subjective Progress Note Date: 05/07/19 Principal diagnosis: Acute on chronic CHF with systolic dysfunction ejection fraction 25-30% Patient is a 64-year-old male with a known history of coronary artery disease status post stent placement, ischemic cardiomyopathy with ejection fraction 25- 30%, hypertension, hyperlipidemia, history of PR, anxiety and other multiple medical problems came to ER with complaints of worsening shortness of breath. Patient is also having worsening leg swelling. Denied any chest pain. No nausea vomiting or abdominal pain or diarrhea. Patient was recently treated for pneumonia. Patient does have cough without sputum production. No fever no chills. Patient underwent cardiac catheterization about a month ago which showed triple- vessel disease and chronic occlusion of RCA. Patient had echocardiogram for disimpaction 25-30% and severe global hypokinesis. Patient was recently treated for right lower lobe pneumonia. EKG showed sinus rhythm with first-degree AV block. Chest x-ray showed worsening pleural effusions. Laboratory data reviewed. BUN 29 and creatinine 1.29, troponin 0.012 and BNP 4420 Influenza negative Patient was tachypneic and tachycardic initially. Pulse ox was 85% on admission. 05/07/2019 Patient was seen and examined. Patient is diuresing well with IV Lasix. Patient is being continued on IV Lasix currently. Blood pressure is stable. Renal function with creatinine level I.1 and BNP 20, potassium 4.2. Denied any complaints of chest pain or worsening shortness of breath. Cardiology is following. Plan to start on Entresto. Continue to diuresis with Lasix for next 24 hours. Patient has been afebrile. No headache or dizziness or lightheadedness. Current medications reviewed Objective - Vital Signs Vital signs: Vital Signs Temp 98.1 F 05/07/19 08:25 Pulse 77 05/07/19 16:10 Resp 18 05/07/19 16:10 BP 143/66 05/07/19 16:10 Pulse Ox 92 L 05/07/19 16:10 Intake & Output 05/07/19 05/07/19 05/08/19 06:59 18:59 06:59 Intake Total 670 480 Output Total 350 700 Balance 320 -220 Weight 102 kg Intake: IV 10 0 Invasive Line 1 10 0 Oral 660 480 Output: Urine 350 700 Other: # Bowel Movements 1 - Exam PHYSICAL EXAMINATION: Patient is lying in the bed comfortably, no acute distress, awake alert and oriented.. HEENT: Normocephalic. Neck is supple. Pupils reactive. Nostrils clear. Oral cavity is moist. Ears reveal no drainage. Neck reveals no JVD, carotid bruits, or thyromegaly. CHEST EXAMINATION: Trachea is central. Symmetrical expansion. Basilar crackles. No wheezing. Scattered rhonchi.. CARDIAC: Normal S1, S2 with no gallops. No murmurs ABDOMEN: Soft. Bowel sounds normal. No organomegaly. No abdominal bruits. Extremities: 2+ edema. No clubbing or cyanosis Neurologically awake, alert, oriented x3 with well-coordinated movements. No focal deficits noted Skin: No rash or skin lesions. Psychiatric: Coperative. Nonsuicidal Musculoskeletal: No joint swelling or deformity. Normal range of motion. - Labs CBC & Chem 7: 05/07/19 06:08 05/08/19 07:05 Labs: Abnormal Lab Results - Last 24 Hours (Table) 05/07/19 05/07/19 05/07/19 Range/Units 06:08 06:08 16:35 RBC 3.68 L (4.30-5.90) m/uL Hgb 11.5 L (13.0-17.5) gm/dL Hct 34.7 L (39.0-53.0) % RDW 15.9 H (11.5-15.5) % Lymphocytes # 0.8 L (1.0-4.8) k/uL Chloride 108 H (98-107) mmol/L POC Glucose (mg/dL) 141 H (75-99) mg/dL 05/07/19 Range/Units 20:47 RBC (4.30-5.90) m/uL Hgb (13.0-17.5) gm/dL Hct (39.0-53.0) % RDW (11.5-15.5) % Lymphocytes # (1.0-4.8) k/uL Chloride (98-107) mmol/L POC Glucose (mg/dL) 136 H (75-99) mg/dL Microbiology - Last 24 Hours (Table) 05/05/19 20:10 Blood Culture - Preliminary Blood No Growth after 24 hours Assessment and Plan Assessment: Acute on chronic CHF with systolic dysfunction ejection fraction 25-30% Acute hypoxic respiratory failure secondary to acute CHF exacerbation Ischemic cardiomyopathy History of recent cardiac catheterization due to non-ST elevated PR Coronary artery disease with history of stent placement 3 Diabetes type 2 insulin-dependent Hypertension Hyperlipidemia History of PR DVT prophylaxis Plan: Patient will be continued on IV diuresis with Lasix. Continue with aspirin sta tins and Coreg. Repeat 2-D echo was ordered. Cardiology is following. Patient refuses to get AICD during previous admission. Monitor renal function and follow closely. Further recommendations based on the clinical course. Time with Patient: Greater than 30
--- NOTE | 2019-05-24 21:52 | P.DS ---
Providers Date of admission: 05/05/19 21:08 Expected date of discharge: 05/08/19 Attending physician: Sherif Mari Consults: 05/05/19 21:09 Consult Physician Routine Consulting Provider: Finn Martino Consult Reason/Comments: CHF Do you want consulting provider notified?: Yes Primary care physician: Stated None Hospital Course: Discharge diagnosis Acute on chronic CHF with systolic dysfunction ejection fraction 25-30% Acute hypoxic respiratory failure secondary to acute CHF exacerbation Ischemic cardiomyopathy History of recent cardiac catheterization due to non-ST elevated VA Coronary artery disease with history of stent placement 3 Diabetes type 2 insulin-dependent Hypertension Hyperlipidemia History of VA DVT prophylaxis Hospital course Patient is a 64-year-old male with a known history of coronary artery disease status post stent placement, ischemic cardiomyopathy with ejection fraction 25- 30%, hypertension, hyperlipidemia, history of VA, anxiety and other multiple medical problems came to ER with complaints of worsening shortness of breath. Patient is also having worsening leg swelling. Denied any chest pain. No nausea vomiting or abdominal pain or diarrhea. Patient was recently treated for pneumonia. Patient does have cough without sputum production. No fever no chills. Patient underwent cardiac catheterization about a month ago which showed triple- vessel disease and chronic occlusion of RCA. Patient had echocardiogram for disimpaction 25-30% and severe global hypokinesis. Patient was recently treated for right lower lobe pneumonia. EKG showed sinus rhythm with first-degree AV block. Chest x-ray showed worsening pleural effusions. Laboratory data reviewed. BUN 29 and creatinine 1.29, troponin 0.012 and BNP 4420 Influenza negative Patient was tachypneic and tachycardic initially. Pulse ox was 85% on admission. 05/07/2019 Patient was seen and examined. Patient is diuresing well with IV Lasix. Patient is being continued on IV Lasix currently. Blood pressure is stable. Renal function with creatinine level I.1 and BNP 20, potassium 4.2. Denied any complaints of chest pain or worsening shortness of breath. Cardiology is following. Plan to start on Entresto. Continue to diuresis with Lasix for next 24 hours. Patient has been afebrile. No headache or dizziness or lightheadedness. 05/08/2019 Patient denied any complaints of chest pain or shortness of breath. IV Lasix will be changed to by mouth. Patient was also started on Entresto by cardiology. Overall symptomatically much improved. Laboratory data reviewed. Discharge medication reconciliation was done and prescription provided. Diagnostic to follow with cardiology in the clinic in next 1-2 weeks. Patient wishes to be discharged home today. PHYSICAL EXAMINATION: Patient is lying in the bed comfortably, no acute distress, awake alert and oriented.. HEENT: Normocephalic. Neck is supple. Pupils reactive. Nostrils clear. Oral cavity is moist. Ears reveal no drainage. Neck reveals no JVD, carotid bruits, or thyromegaly. CHEST EXAMINATION: Trachea is central. Symmetrical expansion. Minimal bibasilar crackles. Lung laboy clear to auscultation and percussion. CARDIAC: Normal S1, S2 with no gallops. No murmurs ABDOMEN: Soft. Bowel sounds normal. No organomegaly. No abdominal bruits. Extremities: Trace edema. No clubbing or cyanosis Neurologically awake, alert, oriented x3 with well-coordinated movements. No focal deficits noted Skin: No rash or skin lesions. Psychiatric: Coperative. Nonsuicidal Musculoskeletal: No joint swelling or deformity. Normal range of motion. Vital Signs Temp 98.1 F 05/08/19 12:00 Pulse 68 05/08/19 12:00 Resp 14 05/08/19 12:00 BP 121/74 05/08/19 12:00 Pulse Ox 93 L 05/08/19 12:00 Intake & Output 05/07/19 05/08/19 05/08/19 18:59 06:59 18:59 Intake Total 480 0 458 Output Total 700 500 500 Balance -220 -500 -42 Weight 98.4 kg Intake: IV 0 0 0 Invasive Line 1 0 0 0 Oral 480 458 Output: Urine 700 500 500 Other: # Voids 1 2 # Bowel Movements 1 Total time taken greater than 35 minutes including 18 minutes for counseling and coordination of care. Patient Condition at Discharge: Stable Plan - Discharge Summary Discharge Rx Participant: No New Discharge Prescriptions: New Spironolactone [Aldactone] 50 mg PO DAILY #30 tab Aspirin 81 mg PO HS #30 chew Carvedilol [Coreg*] 37.5 mg PO AC-BID #60 tab Furosemide [Lasix] 60 mg PO BID@0900,1600 #60 tab Atorvastatin [Lipitor] 20 mg PO HS #30 tab Sacubitril/Valsartan [Entresto 24 mg-26 mg Tablet] 1 each PO BID #60 tablet Furosemide [Lasix] 60 mg PO BID #90 tablet Continue Nitroglycerin Sl Tabs [Nitrostat] 0.4 mg SUBLINGUAL Q5M PRN PRN Reason: Chest Pain Citalopram Hydrobromide [Citalopram HBr] 20 mg PO DAILY glipiZIDE [Glucotrol] 5 mg PO AC-BRKFST ALPRAZolam [Xanax] 0.5 mg PO DAILY PRN PRN Reason: Anxiety metFORMIN HCL [Glucophage] 1,000 mg PO AC-BID Insulin NPH Human Isophane [NovoLIN N] 40 unit SQ AC-BID Discontinued Simvastatin [Zocor] 10 mg PO HS amLODIPine [Norvasc] 5 mg PO DAILY Carvedilol 25 mg PO BID Enalapril [Vasotec] 10 mg PO DAILY Furosemide [Lasix] 40 mg PO BID #60 tab Aspirin 81 mg PO HS Cefuroxime Axetil [Ceftin] 500 mg PO BID 5 Days #10 tab Discharge Medication List ALPRAZolam [Xanax] 0.5 mg PO DAILY PRN 10/20/17 [History] Citalopram Hydrobromide [Citalopram HBr] 20 mg PO DAILY 10/20/17 [History] Nitroglycerin Sl Tabs [Nitrostat] 0.4 mg SUBLINGUAL Q5M PRN 10/20/17 [History] glipiZIDE [Glucotrol] 5 mg PO AC-BRKFST 10/20/17 [History] metFORMIN HCL [Glucophage] 1,000 mg PO AC-BID 10/20/17 [History] Insulin NPH Human Isophane [NovoLIN N] 40 unit SQ AC-BID 03/12/19 [History] Aspirin 81 mg PO HS #30 chew 05/08/19 [Rx] Atorvastatin [Lipitor] 20 mg PO HS #30 tab 05/08/19 [Rx] Carvedilol [Coreg*] 37.5 mg PO AC-BID #60 tab 05/08/19 [Rx] Furosemide [Lasix] 60 mg PO BID #90 tablet 05/08/19 [Rx] Furosemide [Lasix] 60 mg PO BID@0900,1600 #60 tab 05/08/19 [Rx] Sacubitril/Valsartan [Entresto 24 mg-26 mg Tablet] 1 each PO BID #60 tablet 05/08/19 [Rx] Spironolactone [Aldactone] 50 mg PO DAILY #30 tab 05/08/19 [Rx] Follow up Appointment(s)/Referral(s): Nonstaff,Physician [REFERRING] - 1 Week (Dr. Key - please follow up with your primary physician within one week of being discharged from the hospital.) Kiah Chester MD [STAFF PHYSICIAN] - 05/20/19 3:45 pm (At [facility]. [address], [place]) Ambulatory/Diagnostic Orders: Basic Metabolic Panel [LAB.AMB] Time Frame: 3 Days, Location: None Selected Patient Instructions/Handouts: Heart Failure (DC), Heart Healthy Diet (DC), Implantable Cardioverter Defibrillator (GEN) Activity/Diet/Wound Care/Special Instructions: Entresto filled at [facility] with free 30 day coupon - patient to call [employer] to look into insurance coverage/deductible amounts. CHF 1. Weigh yourself every morning after you urinate. If you gain 2-3 pounds overnight or 5 pounds in one week, call your primary physician for guidance on your medications. Keep a log of your weights. 2. Avoid salt, or foods with hidden salt. Extra salt makes your heart work harder and traps the fluid in your body for longer. 3. Take all of your medications as directed, especially your water pills. NEVER skip a dose. 4. Elevate your legs when you are not up moving around to help with circulation and prevent swelling. 5. Call your physician if you notice any extra swelling in your legs, ankles, feet or abdomen, if you have a new dry cough, if your shortness of breath worsens with activity or at rest, or if you feel more fatigued. Discharge Disposition: HOME SELF-CARE
== END 2019-05-08 16:18 | disposition home or self-care (01) | DRG 291 ==
LOC: EC 19:42 → 3SCARD 21:08
PROVIDERS: ADMIT Internal Medicine; ATTEND Internal Medicine
DX: I11.0 Hypertensive heart disease with heart failure (principal); J96.01 Acute respiratory failure with hypoxia; I50.23 Acute on chronic systolic (congestive) heart failure; I25.82 Chronic total occlusion of coronary artery; E11.9 Type 2 diabetes mellitus without complications; I25.5 Ischemic cardiomyopathy; I25.10 Atherosclerotic heart disease of native coronary artery without angina pectoris; I25.2 Old myocardial infarction; I44.7 Left bundle-branch block, unspecified; I44.0 Atrioventricular block, first degree; E78.5 Hyperlipidemia, unspecified; D64.9 Anemia, unspecified; F41.9 Anxiety disorder, unspecified; Z79.82 Long term (current) use of aspirin; Z79.4 Long term (current) use of insulin; Z79.899 Other long term (current) drug therapy; Z95.5 Presence of coronary angioplasty implant and graft; Z88.1 Allergy status to other antibiotic agents; Z82.49 Family history of ischemic heart disease and other diseases of the circulatory system; Z83.3 Family history of diabetes mellitus
CPT/HCPCS: 36415; 71046; 78582; 80048; 80053; 83605; 83735; 83880; 84484; 85025; 85379; 85610; 85730; 87040; 87502; 93005; 96374; 99285

== ENCOUNTER 2021-08-22 18:20 | Observation (INO) | payer MEDICARE ==
--- NOTE | 2021-08-22 18:43 | ED ---
General Adult HPI - General Chief complaint: Chest Pain Stated complaint: Cardiac Symptoms Time Seen by Provider: 08/22/21 18:25 Source: patient, EMS, RN notes reviewed, old records reviewed Mode of arrival: EMS Limitations: no limitations - History of Present Illness Initial comments: This is a 66-year-old male presents emergency Department from [facility]. Patient was here for chest pain he stated it lasted about 2 hours this morning and he is been since chest pain-free. Patient states she's had multiple heart attacks in the past he is a diabetic with high cholesterol and high blood pressure. According to the other hospitals physician patient had an elevated potassium but the patient was stable throughout his stay there. Patient states he hasn't had any chest pain or difficulty breathing or shortness of breath since the chest pain subsided after 2 hour period. Patient denies any abdominal pain patient denies nausea vomiting or diarrhea. Patient denies any leg swelling or calf tenderness. - Related Data Home Medications Medication Instructions Recorded Confirmed ALPRAZolam [Xanax] 0.5 mg PO DAILY PRN 10/20/17 05/05/19 Citalopram Hydrobromide 20 mg PO DAILY 10/20/17 05/05/19 Nitroglycerin Sl Tabs [Nitrostat] 0.4 mg SUBLINGUAL Q5M PRN 10/20/17 05/05/19 glipiZIDE [Glucotrol] 5 mg PO AC-BRKFST 10/20/17 05/05/19 metFORMIN HCL [Glucophage] 1,000 mg PO AC-BID 10/20/17 05/05/19 Insulin NPH Human Isophane 40 unit SQ AC-BID 03/12/19 05/05/19 [NovoLIN N] Previous Rx's Medication Instructions Recorded Aspirin 81 mg PO HS #30 chew 05/08/19 Atorvastatin [Lipitor] 20 mg PO HS #30 tab 05/08/19 Furosemide [Lasix] 60 mg PO BID #90 tablet 05/08/19 Furosemide [Lasix] 60 mg PO BID@0900,1600 #60 tab 05/08/19 Sacubitril/Valsartan [Entresto 24 1 each PO BID #60 tablet 05/08/19 mg-26 mg Tablet] Spironolactone [Aldactone] 50 mg PO DAILY #30 tab 05/08/19 carvediloL [Coreg*] 37.5 mg PO AC-BID #60 tab 05/08/19 Allergies Allergy/AdvReac Type Severity Reaction Status Date / Time ciprofloxacin [From Cipro] Allergy Rash/Hives Verified 08/22/21 18:29 Review of Systems ROS Statement: Those systems with pertinent positive or pertinent negative responses have been documented in the HPI. ROS Other: All systems not noted in ROS Statement are negative. Past Medical History Past Medical History: Coronary Artery Disease (CAD), Cancer, Diabetes Mellitus, Hyperlipidemia, Hypertension, Myocardial Infarction ([place]) Additional Past Medical History / Comment(s): skin cancer on nose August 2020 Last Myocardial Infarction Date:: 02/12/2019 History of Any Multi-Drug Resistant Organisms: None Reported Past Surgical History: Heart Catheterization, Heart Catheterization With Stent, Orthopedic Surgery Additional Past Surgical History / Comment(s): skin cancer removed from nose August 2020 Past Anesthesia/Blood Transfusion Reactions: No Reported Reaction Date of Last Stent Placement:: 2012 Past Psychological History: Anxiety Smoking Status: Never smoker Past Alcohol Use History: Occasional Past Drug Use History: None Reported - Past Family History Mother Family Medical History: Coronary Artery Disease (CAD), Diabetes Mellitus, Myocardial Infarction ([place]) Father Family Medical History: Diabetes Mellitus, Renal Disease family Additional Family Medical History / Comment(s): Mother with history of diabetes mellitus and CAD, father with history of heart disease and diabetes General Exam - General Exam Comments Initial Comments: GENERAL: Patient is well-developed and well-nourished. Patient is nontoxic and well- hydrated and is in no acute distress. ENT: Neck is soft and supple. No significant lymphadenopathy is noted. Oropharynx is clear. Moist mucous membranes. Neck has full range of motion without eliciting any pain. EYES: The sclera were anicteric and conjunctiva were pink and moist. Extraocular movements were intact and pupils were equal round and reactive to light. Eyelids were unremarkable. PULMONARY: Unlabored respirations. Good breath sounds bilaterally. No audible rales rhonchi or wheezing was noted. CARDIOVASCULAR: There is a regular rate and rhythm without any murmurs gallops or rubs. ABDOMEN: Soft and nontender with normal bowel sounds. SKIN: Skin is clear with no lesions or rashes and otherwise unremarkable. NEUROLOGIC: Patient is alert and oriented x3. Cranial nerves II through XII are grossly intact. Motor and sensory are also intact. Normal speech, volume and content. Symmetrical smile. MUSCULOSKELETAL: Normal extremities with adequate strength and full range of motion. No lower extremity swelling or edema. No calf tenderness. LYMPHATICS: No significant lymphadenopathy is noted PSYCHIATRIC: Normal psychiatric evaluation. 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 Patient's EKG shows no ST segment elevation or depression. Chest x-ray showed no acute abnormality. Potassium was 5.8. Troponin was within normal range. I spoke with some physicians agreed to admit the patient admitted the patient wrote admitting orders. - Lab Data Result diagrams: 08/22/21 18:37 Lab Results 08/22/21 08/22/21 Range/Units 18:37 18:37 Sodium 137 (137-145) mmol/L Potassium 5.8 H (3.5-5.1) mmol/L Chloride 105 (98-107) mmol/L Carbon Dioxide 23 (22-30) mmol/L Anion Gap 9 mmol/L BUN 46 H (9-20) mg/dL Creatinine 2.06 H (0.66-1.25) mg/dL Est GFR (CKD-EPI)AfAm 37 (>60 ml/min/1.73 sqM) Est GFR (CKD-EPI)NonAf 32 (>60 ml/min/1.73 sqM) Glucose 101 H (74-99) mg/dL Calcium 9.6 (8.4-10.2) mg/dL Total Bilirubin 0.6 (0.2-1.3) mg/dL AST 22 (17-59) U/L ALT 14 (4-49) U/L Alkaline Phosphatase 66 (38-126) U/L Troponin I 0.026 (0.000-0.034) ng/mL Total Protein 7.7 (6.3-8.2) g/dL Albumin 4.1 (3.5-5.0) g/dL Disposition Clinical Impression: Chest pain Disposition: ADMITTED IP TO THIS HOSP Referrals: Mike Escobar MD [Primary Care Provider] - 1-2 days Time of Disposition: 19:14
--- NOTE | 2021-08-22 18:46 | XR ---
EXAMINATION TYPE: XR chest 1V portable DATE OF EXAM: 08/22/2021 6:42 PM COMPARISON: Chest radiograph 05/05/2019 TECHNIQUE: XR chest 1V portable Frontal view of the chest. CLINICAL INDICATION:Male, 66 years old with history of Short of breath; FINDINGS: Lungs/Pleura: There is no evidence of pleural effusion, focal consolidation, or pneumothorax. Pulmonary vascularity: Unremarkable. Heart/mediastinum: Cardiomediastinal silhouette is enlarged and stable. Musculoskeletal: No acute osseous pathology. IMPRESSION: No acute cardiopulmonary disease/process.
[2021-08-22 18:55] LABS: Albumin 4.1 g/dL (3.5-5.0); Calcium 9.6 mg/dL (8.4-10.2); Potassium 5.8 mmol/L (3.5-5.1); Total Bilirubin 0.6 mg/dL (0.2-1.3); Total Protein 7.7 g/dL (6.3-8.2)
[2021-08-22] MEDS ORDERED: NITROGLYCERIN SL TABS 0.4 MG TAB SUBLINGUAL PRN (19:14)
[2021-08-22] MEDS: NITROGLYCERIN OINT 1 INCH/GM PACKET TOPICAL SCH (23:10)
[2021-08-22] MEDS ORDERED: ATORVASTATIN 10 MG TAB PO SCH (23:15)
[2021-08-22] MEDS ORDERED: FUROSEMIDE 40 MG TAB PO SCH (23:15)
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
[2021-08-23 01:40] LABS: Glucose,Whole Blood 126 mg/dL (75-99)
[2021-08-23] MEDS: INSULIN ASPART (NovoLOG) 100 UNIT/ML VIAL SQ SCH ×5 (01:44→21:57)
[2021-08-23] MEDS: HEPARIN SODIUM,PORCINE/PF 5,000 UNIT/0.5 ML SYRINGE SQ SCH ×5 (01:46→21:57)
[2021-08-23] MEDS: INSULIN NPH 300 UNIT/3 ML VIAL SQ SCH ×2 (01:46→21:57)
[2021-08-23] MEDS: FLUoxetine HCL 20 MG CAP PO SCH ×2 (01:47→21:57)
[2021-08-23] MEDS: CITALOPRAM HYDROBROMIDE 20 MG TAB PO SCH ×2 (01:47→21:57)
[2021-08-23] MEDS: NITROGLYCERIN OINT 1 INCH/GM PACKET TOPICAL SCH (05:19)
[2021-08-23 07:19] LABS: Glucose,Whole Blood 144 mg/dL (75-99)
[2021-08-23 08:14] LABS: African American GFR (CKD) 37 (>60 ml/min/1.73 sqM); Anion Gap 9 mmol/L; Blood Urea Nitrogen 49 mg/dL (9-20); Calcium 9.4 mg/dL (8.4-10.2); Carbon Dioxide 25 mmol/L (22-30); Chloride 102 mmol/L (98-107); Glucose 135 mg/dL (74-99); Non-African American GFR(CKD) 32 (>60 ml/min/1.73 sqM); Potassium 5.9 mmol/L (3.5-5.1); Sodium 136 mmol/L (137-145)
[2021-08-23] MEDS ORDERED: AMINOPHYLLINE 500 MG/20 ML VIAL IV PRN (08:49)
[2021-08-23] MEDS ORDERED: CAFFEINE CITRATE 60 MG/3 ML VIAL IV PRN (08:49)
[2021-08-23] MEDS ORDERED: REGADENOSON 0.4 MG/5 ML SYRINGE IV PRN (08:49)
[2021-08-23] MEDS ORDERED: SPIRONOLACTONE 25 MG TAB PO SCH (09:00)
[2021-08-23] MEDS ORDERED: ASPIRIN 325 MG TAB PO SCH (09:00)
[2021-08-23 09:31] LABS: Chol/HDL Ratio 5.76 Ratio; LDL Cholesterol,Calculated 65.7 mg/dL (0.0-131.0)
[2021-08-23] MEDS: ASPIRIN 81 MG PO SCH (09:33)
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
--- NOTE | 2021-08-23 10:16 | CA ---
Transthoracic Echo Report Name: Jabier Mitchell Age: 66 Gender: M : 1955 Exam Date: 08/23/2021 08:05 Exam Location: [facility] Ht (in): 62 Wt (lb): 192 Ordering Physician: Maryan Adair Attending/Referring Phys: Underwriting Service Representative CK Procedure CPT: Indications: chest pain. Hx ischemic cardiomyopathy Cardiac Hx: cp, ischemic cardiomyopathy Technical Quality: Contrast 1: N/A Total Dose (mL): Contrast 2: Total Dose (mL): MEASUREMENTS (Male / Female) Normal Values 2D ECHO LV Diastolic Diameter PLAX 5.6 cm 4.2 - 5.9 / 3.9 - 5.3 cm LV Systolic Diameter PLAX 5.2 cm IVS Diastolic Thickness 1.1 cm 0.6 - 1.0 / 0.6 - 0.9 cm LVPW Diastolic Thickness 1.5 cm 0.6 - 1.0 / 0.6 - 0.9 cm LV Relative Wall Thickness 0.5 RV Internal Dim ED PLAX 3.3 cm M-MODE Aortic Root Diameter MM 3.8 cm LA Systolic Diameter MM 4.3 cm LA Ao Ratio MM 1.1 MV E Point Septal Separation 1.7 cm AV Cusp Separation MM 1.0 cm DOPPLER MV E' Velocity 2.1 cm/s TR Peak Velocity 137.0 cm/s TR Peak Gradient 7.5 mmHg Right Ventricular Systolic Press 12.5 mmHg FINDINGS Left Ventricle Severely reduced global left ventricular systolic function. EF less than 20% Right Ventricle Normal right ventricular size and function. Right Atrium Normal right atrial size. Left Atrium Severe left atrial dilatation. Mitral Valve Mild mitral regurgitation. Aortic Valve Trileaflet aortic valve. Tricuspid Valve Mild tricuspid regurgitation. Pulmonic Valve Trace pulmonic regurgitation. Pericardium Normal pericardium. Aorta Normal size aortic root. CONCLUSIONS #1. Dilated left ventricle with generalized hypokinesia of severe degree. Ejection fraction is 20%. #2. Severe left atrial enlargement. #3. Mild mitral and tricuspid regurgitation. #4. No pericardial effusion Previewed by: Dr. Kiah Chester MD (Electronically Signed) Final Date: 23 August 2021 10:14
--- NOTE | 2021-08-23 11:47 | P.STRESS ---
- Stress Test Note Stress Test Results/Findings: Exam Performed: Exam Date: Reason for Exam: Height: 5 ft 10 in Weight: 87.09 kg Protocol: Stage: Duration of Exercise: Resting Heart Rate: Resting Blood Pressure: Maximum Achieved Heart Rate: Maximum Achieved Blood Pressure: 85% PMHR: 100% PMHR: METS: Technologist Comment: Stress Test Results/Findings: This is a 66-year-old gentleman with history of hypertension, diabetes, hypercholesteremia, and cardiomyopathy was admitted to the hospital with complaints of chest pain and nausea. Stress data: Baseline EKG shows sinus rhythm with evidence of intraventricular conduction delay. Blood pressure at rest is 120/70 with pulse rate of 65. A standard dose of Lexiscan was infused. EKGs taken during and after infusion did not reveal any significant changes from the baseline. Final impression: #1. Inconclusive Lexiscan stress test because of baseline EKG changes #2. Report on the nuclear images to be provided by the radiologist.
[2021-08-23] MEDS: amLODIPine 5 MG TAB PO SCH (13:10)
--- NOTE | 2021-08-23 13:29 | NM ---
EXAMINATION TYPE: NM stress lexiscan cardiolite DATE OF EXAM: 08/23/2021 COMPARISON: NONE HISTORY: Chest pain TECHNIQUE: After the intravenous administration of 9.87 mCi Tc 99m Sestamibi - Cardiolite resting SP ECT images acquired 45 minutes post injection. The patient received 0.4mg Lexiscan, 25 mCi Tc 99m Sestamibi - Stress images obtained 30 minutes post injection FINDINGS: Review of stress and rest SPECT images demonstrates matching defect on stress and rest imaging involv ing the inferior lateral and apical left ventricle on stress and rest images. Gated analysis shows a bnormal global decreased wall motion with an estimated left ventricular ejection fraction of 24 %. IMPRESSION: No scintigraphic evidence for pharmacologically induced left ventricular reversible ischemia. Finding s consistent with prior infarct, correlate. Abnormal low cardiac ejection fraction, consider echocard iographic correlation
[2021-08-23] MEDS ORDERED: INSULIN REGULAR 100 UNIT/ML VIAL (IV) IV ONE (15:34)
--- NOTE | 2021-08-23 15:51 | P.PN ---
Subjective Progress Note Date: 08/23/21 Hospital course: Patient is a very pleasant 66-year-old male with a past medical history of CAD with previous RI and stents, ischemic cardiomyopathy with previously known EF of 30%, hypertension, hyperlipidemia, and osteoarthritis. Patient presented to the emergency department with a chief complaint of chest pain radiating into left shoulder accompanied by palpitations, nausea, and diaphoresis. Patient underwent full evaluation. Initial troponin 0.026. EKG showing sinus rhythm 83 bpm with occasional PVC. Chest x-ray negative for acute cardiopulmonary process. Patient was admitted under our services with consultation to cardiology. Echocardiogram revealing dilated left ventricle with generalized hypokinesia with an ejection fraction of 20%, severe left atrial enlargement and mild mitral and tricuspid regurgitation. Troponins trended throughout the night at 0.026, 0.040, and 0.038. Imelda scan stress test showing no scintographic evidence for pharmacologically induced left ventricular reversible ischemia, did reveal findings consistent with prior infarct and an abnormal low ejection fraction of 24%. Physical exam: Patient seen and fully evaluated at bedside. Cardiology recommending AICD placement and initially patient declined. At time of assessment patient very inquisitive regarding AICD placement and requesting additional information at this time. Cardiology notified of patient's change of mind and requesting more information. Daily labs reviewed revealing worsening potassium of 5.9 and persistent AK I with BUN 49, creatinine 2.07, and GFR of 32 with previously known baseline creatinine of 1.23. Lipid profile also revealing elevated triglycerides of 283, VLDL of 56.60, and HDL of 25.70 patient placed on fenofibrate in addition to daily atorvastatin and atorvastatin increased to 40 mg nightly. Patient currently denies having any chest pain, shortness of breath, nausea, back pain, palpitations, or any other complaints at this current time. Vital signs reviewed and stable. General: Nontoxic, no distress and appears stated age. Derm: Skin warm and dry, normal coloration for ethnicity. Head: Atraumatic, normocephalic and symmetric. Eyes: EOMs intact, no lid lag, and anicteric sclera Mouth: no lip lesions, mucus membranes moist Cardiovascular: regular rate and rhythm with normal S1S2, systolic murmur, positive posterior tibial pulses bilaterally, and cap refill < 2 seconds. Lungs: Respirations even, regular, and unlabored on room air. Lungs CTA bilaterally, no rhonchi, no rales, no wheezing, and no accessory muscle usage. Abdominal: soft, nontender to palpation, no guarding, no appreciable organomegaly Ext: ROM intact. No gross muscle atrophy, no edema, no contractures Neuro: Speech clear, face symmetrical and CN II-XII grossly intact with no noted focal neuro deficits Psych: Alert and oriented to person, place, time, and situation. Appropriate and pleasant affect. Assessment and Plan of Care: Chest pain, rule out acute coronary event History of CAD with previous RI and stents Ischemic cardiomyopathy with ejection fraction of 20% Hypertension Hyperlipidemia and hypertriglyceridemia -Cardiology following, appreciate further recommendations -Telemetry monitoring -Cardiac diet -EKG showing sinus rhythm 83 bpm with occasional PVC. -Echocardiogram revealing dilated left ventricle with generalized hypokinesia with an ejection fraction of 20%, severe left atrial enlargement and mild mitral and tricuspid regurgitation. -Imelda scan stress test showing no scintographic evidence for pharmacologically induced left ventricular reversible ischemia, did reveal findings consistent with prior infarct and an abnormal low ejection fraction of 24%. -At this time we have to hold Lasix and Aldactone secondary to YEIMY and hyperkalemia. -Patient to continue daily cardiac medication regimen with amlodipine, aspirin, and atorvastatin. Acute kidney injury Hyperkalemia -Hold nephrotoxic medications including Lasix and Aldactone. -Gentle hydration with 0.9% normal saline at 75 mL per hour, must be cautious with hydration as patient's EF is 20%. -May consider nephrology consult if no improvement in renal function upon repeat labs. CODE STATUS: Full code DVT prophylaxis: Heparin Discussed with: Patient and RN Anticipated discharge date: Clinical course to determine Anticipated discharge place: Home A total of 39 minutes was spent on the care of this complex patient more than 50% of the time was spent in counseling and care coordination. Objective - Vital Signs Vital signs: Vital Signs Temp 97.8 F 08/23/21 14:01 Pulse 80 08/23/21 14:01 Resp 16 08/23/21 14:01 BP 116/78 08/23/21 14:01 Pulse Ox 97 08/23/21 14:01 Intake & Output 08/22/21 08/23/21 08/23/21 18:59 06:59 18:59 Intake Total 320 Balance 320 Weight 87.09 kg 87.09 kg 87.09 kg Intake: Oral 320 Other: # Voids 1 2 - Labs CBC & Chem 7: 08/23/21 06:25 Labs: Abnormal Lab Results - Last 24 Hours (Table) 08/22/21 08/22/21 08/22/21 Range/Units 18:37 21:08 22:21 Sodium (137-145) mmol/L Potassium 5.8 H 5.5 H (3.5-5.1) mmol/L BUN 46 H (9-20) mg/dL Creatinine 2.06 H (0.66-1.25) mg/dL Glucose 101 H (74-99) mg/dL POC Glucose (mg/dL) (75-99) mg/dL Troponin I 0.040 H* (0.000-0.034) ng/mL Triglycerides (0.00-149.00) mg/dL VLDL Cholesterol, Calc (5.00-40.00) mg/dL HDL Cholesterol (40.00-60.00) mg/dL 08/23/21 08/23/21 08/23/21 Range/Units 00:33 01:38 06:25 Sodium (137-145) mmol/L Potassium (3.5-5.1) mmol/L BUN (9-20) mg/dL Creatinine (0.66-1.25) mg/dL Glucose (74-99) mg/dL POC Glucose (mg/dL) 126 H (75-99) mg/dL Troponin I 0.038 H* (0.000-0.034) ng/mL Triglycerides 283.00 H (0.00-149.00) mg/dL VLDL Cholesterol, Calc 56.60 H (5.00-40.00) mg/dL HDL Cholesterol 25.70 L (40.00-60.00) mg/dL 08/23/21 08/23/21 Range/Units 06:25 07:16 Sodium 136 L (137-145) mmol/L Potassium 5.9 H (3.5-5.1) mmol/L BUN 49 H (9-20) mg/dL Creatinine 2.07 H (0.66-1.25) mg/dL Glucose 135 H (74-99) mg/dL POC Glucose (mg/dL) 144 H (75-99) mg/dL Troponin I (0.000-0.034) ng/mL Triglycerides (0.00-149.00) mg/dL VLDL Cholesterol, Calc (5.00-40.00) mg/dL HDL Cholesterol (40.00-60.00) mg/dL
[2021-08-23] MEDS: DEXTROSE 50% SYRINGE 50 ML IVP STA ×2 (15:55→16:10)
[2021-08-23] MEDS: CALCIUM GLUCONATE IN NACL 2 GM in SALINE 1 100ML.BAG IVPB ONE ×2 (15:56→16:10)
[2021-08-23] MEDS: SODIUM CHLORIDE 0.9% 1,000 ML IV SCH (15:57)
[2021-08-23 17:18] LABS: Glucose,Whole Blood 296 mg/dL (75-99)
[2021-08-23 21:50] LABS: Glucose,Whole Blood 254 mg/dL (75-99)
[2021-08-23] MEDS: ATORVASTATIN 40 MG TAB PO SCH (21:57)
[2021-08-24] MEDS: SODIUM CHLORIDE 0.9% 1,000 ML IV SCH ×2 (05:32→19:32)
[2021-08-24 07:16] LABS: Glucose,Whole Blood 147 mg/dL (75-99)
[2021-08-24] MEDS: INSULIN ASPART (NovoLOG) 100 UNIT/ML VIAL SQ SCH ×4 (07:51→20:30)
[2021-08-24] MEDS: HEPARIN SODIUM,PORCINE/PF 5,000 UNIT/0.5 ML SYRINGE SQ SCH ×3 (07:53→20:34)
[2021-08-24] MEDS: ASPIRIN 81 MG PO SCH (08:02)
[2021-08-24] MEDS: FENOFIBRATE 160 MG TAB PO SCH (08:02)
[2021-08-24] MEDS: amLODIPine 5 MG TAB PO SCH (08:02)
--- NOTE | 2021-08-24 09:28 | P.PN ---
Subjective This is a pleasant 66-year-old male past medical history significant for Coronary artery disease s/p PCI LAD, Type 2 Diabetes, hypertension, hyperlip idemia, ischemic cardiomyopathy with EF 25-30%, congestive heart failure, chronic kidney disease. He did follow up once with Dr. Chester in 2019 but did not follow up afterwards. He currently has a follow up appointment with Dr. Miranda In September 2021. We have been asked to see in consultation for chest pain. Patient presents to the emergency department with complaints of chest discomfort. Yesterday he was doing errands in the afternoon. After walking around at [facility], he had acute onset, sharp midsternal chest discomfort. Radiating to his left shoulder and left arm. He lasted about an hour. He had associated shortness of breath, nausea and diaphoresis, and lightheadedness. He denies syncope or vomiting. Activity did aggravated his pain. No specific alleviating factors it resolved on its own. He went home, his family was concerned and wanted him to see a provider. He called his family doctor and recommended that patient go to the emergency department for evaluation. He states he has had 5 myocardial infarctions, he has had 3 stents placed in [place]. He denies history of stroke. He is a non/never smoker. Occasional alcohol use. No illicit drug use. He has ischemic cardiomyopathy with a known EF 25-30%, he has been recommended to have a BiV ICD numerous times by info specialist in [facility] and in [place]. He continues to refuse BiV ICD placement. DIAGNOSTICS -EKG reveals sinus rhythm, first-degree AV block, heart rate 83, left bundle branch block morphology, left axis deviation, poor R wave progression. Prior EKG was similar findings. -Last Cardiac Catheterization previously stented proximal segment appears patent, mild to moderate disease in the mid LAD 4050 percent stenosis, RCA is chronically occluded in its midportion. Mild diffuse disease involving a small caliber circumflex coronary artery. Maximize medical therapy was advised. 08/24/2021 Patient seen and examined at bedside. No acute events, denies any chest pain or shortness of breath. Patient underwent Lexiscan stress test yesterday which revealed no sc ientificgraphic evidence for pharmacologically-induced left ventricular reversible ischemia. Findings consistent with prior infarct. Echocardiogram revealed an EF of less than 20%, severe left atrial enlargement, mild mitral and tricuspid regurgitation. Labs today pending PHYSICAL EXAMINATION Blood pressure 146/94, heart rate 84, afebrile, saturations 90% room air CONSTITUTIONAL: No apparent distress. HEENT: Neck Supple. No JVD. No carotid bruit. CHEST EXAMINATION: Lungs are clear to auscultation. No chest wall tenderness is noted on palpation or with deep breathing. HEART EXAMINATION: Regular rate and rhythm. S1, S2 heard. Systolic ejection murmur at apex. ABDOMEN: Soft, nontender. Positive bowel sounds. EXTREMITIES: 2+ peripheral pulses, no lower extremity edema and no calf tende rness. NEUROLOGIC EXAMINATION: Patient is awake, alert and oriented x3. ASSESSMENT Chest pain, atypical acute coronary syndrome has been ruled out. Lexiscan stress test 08/23 negative for reversible ischemia, findings consistent with prior infarct. Coronary artery disease s/p PCI LAD Type 2 Diabetes Hypertension Hyperlipidemia Ischemic cardiomyopathy with EF <20% Chronic congestive heart failure with reduced ejection fraction Chronic kidney disease Hyperkalemia PLAN Dr. Chester discussed the importance of BiV ICD implantation with the patient, patient is more agreeable to this discussion and having a device implantation. This will be further discussed outpatient in the office with Dr. Miranda and can be scheduled as an outpatient. Recommend discontinuing 50mg spironolactone, and decrease dose to 12.5mg daily Continue other home cardiac medications Patient not on beta tonya secondary to first degree AV block Patient not on ACEI/ARB secondary to kidney function Patient has a follow appointment with Dr. Miranda on 09/05/2021. Nurse practitioner note has been reviewed by physician. Signing provider agrees with the documented findings, assessment, and plan of care. Objective - Vital Signs Vital signs: Vital Signs Temp 97.7 F 08/24/21 07:00 Pulse 97 08/24/21 07:00 Resp 16 08/24/21 07:00 BP 146/94 08/24/21 07:00 Pulse Ox 98 08/24/21 07:00 Intake & Output 08/23/21 08/24/21 08/24/21 18:59 06:59 18:59 Intake Total 500 118 Balance 500 118 Weight 87.09 kg Intake: Oral 500 118 Other: # Voids 2 1 - Labs CBC & Chem 7: 08/23/21 06:25 Labs: Abnormal Lab Results - Last 24 Hours (Table) 08/23/21 08/23/21 08/23/21 Range/Units 06:25 17:17 21:48 POC Glucose (mg/dL) 296 H 254 H (75-99) mg/dL Triglycerides 283.00 H (0.00-149.00) mg/dL VLDL Cholesterol, Calc 56.60 H (5.00-40.00) mg/dL HDL Cholesterol 25.70 L (40.00-60.00) mg/dL 08/24/21 Range/Units 07:14 POC Glucose (mg/dL) 147 H (75-99) mg/dL Triglycerides (0.00-149.00) mg/dL VLDL Cholesterol, Calc (5.00-40.00) mg/dL HDL Cholesterol (40.00-60.00) mg/dL
--- OUTSIDE RECORDS SUMMARY | 2021-08-24 09:37 | XMS REPORT ---
Patient Summary 2.1 Created on:August 22, 2021 Patient:DESTINI MARIANO Sex:Male :1955 Author Name BEAN STATION Address [address] [facility] Unavailable [place], [place] [id number] Care Team Providers Name Role Phone VICTOR M CAMPA Registered Nurse Unavailable CARMEN Hammer Attending Unavailable ENGLISH CODY Booker MD Primary Unavailable CARMEN Hammer Transferring Provider Unavailable Functional Status No Data Found Immunization Immunization Date Status Additional Notes Code Code S ystem 06/11/2017 Completed 115 CVX Tdap 08/11/2021 Completed 207 CVX COVID-19, mRNA, LNP-S, PF, 100 mcg or 50 mcg dose Mental Status No Data Found Results ACCUCHECK - Collect Date/Time: 16:15 [employer] [address] [place], [place], [id number] 09 LOINC: 86060-0 Test Value Unit Reference Range Code Code Syst em 171 mg/dL L=76 H=106 GL GLUCOSE N-TERMINAL PRO BRAIN NATRIURETIC PEPTIDE - Collect Date/Time: 08/22/2021 14:28 [employer] ID: [id number] [address] [place], [place], [id number] 09 LOINC: 50720-3 Test Value Unit Reference Range Code Code Syst em 4120 pg/ml L=0 H=142 17999-1 LOINC NT-pro BNP TROPONIN-I - Collect Date/Time: 08/23/19 14:28 [employer] ID: [id number] [address] [place], [place], [address] 09 LOINC: 95952-5 Test Value Unit Reference Range Code Code Syst em 0.023 ng/mL L=0.000 93288-1 LOINC TROPONIN I H=0.030 COAGULATION PANEL+ - Collect Date/Time: 08/22/2021 14:28 [employer] [facility] ID: [id number] [address] [place], [place], [id number] 09 LOINC: 31474-8 Test Value Unit Reference Range Code Code Syst em 10.5 Secs L=10.0 H=12.0 5902-2 LOINC PROTIME 0.95 L=0.90 H=1.10 23602-9 LOINC INR 27.2 Secs L=25.0 H=35.0 12539-2 LOINC PTT BASIC METABOLIC - Collect Date/Time: 14:28 [facility] ID: [id number] [address] [place], [place], [address] 09 LOINC: 63680-3 Test Value Unit Reference Range Code Code Syst em 135 mmol/L L=137 H=145 2951-2 LOINC SODIUM 6.1 mmol/L L=3.5 H=5.1 2823-3 LOINC POTASSIUM FABRICE Amaya CALLED TO: RN [employer] 08/22/21 82943-7 LOINC DATE 1456 74050-4 LOINC TIME YES READBACK OK? VERIFIED BY REP/VERIFIED REPEAT REVIEW 100 mmol/L L=89 H=107 2075-0 LOINC CHLORIDE 22 mmol/L L=22 H=30 8-9 LOINC CO2 250 mg/dL L=74 H=106 2345-7 LOINC GLUCOSE 43 mg/dL L=9 H=20 3094-0 LOINC BUN 2.0 mg/dL L=0.5 H=1.2 78660-8 LOINC CREAT SERUM 9.9 mg/dL L=8.4 01567-7 LOINC CALCIUM H=10.2 66 yrs AGE White OR His RACE NO AMER 1.00 GFR COMPONENT 35.49 mL/min 37936-8 LOINC GFR CBC ORDER / AUTO DIFF - Collect Date/Chester e: 08/22/2021 14:[address] [employer] ID: [id number] [address] [place], [place], [address] 09 LOINC: 84225-9 Test Value Unit Reference Range Code Code Syst em 13.56 10*3/uL L=4.00 730-2 LOINC WBC H=10.50 4.79 10*6/uL L=4.70 789-8 LOINC RBC H=6.00 14.5 g/dL L=13.5 718-7 LOINC HEMOGLOBIN H=18.0 42.1 % L=42.0 4544-3 LOINC HEMATOCRIT H=52.0 87.9 fL L=78.0 H=100 787-2 LOINC MCV 30.3 pg L=27.0 785-6 LOINC MCH H=31.0 34.4 g/dL L=32.0 MCHC H=36.0 14.5 % L=11.5 788-0 LOINC RDW H=14.0 271 10*3/uL L=150 H=450 9317-9 LOINC PLATELETS 10.70 fL L=6.00 18106-5 LOINC MPV H=9.50 72.7 % L=42.2 %NEUT H=75.2 10.8 % L=20.5 %LYMPH H=51.1 9.70 % L=1.70 %MONO H=9.30 5.70 % L=0.00 713-8 LOINC %EOS H=7.00 0.700 % L=0.000 %BASO H=2.500 0.400 % L=0.001 %IG H=0.429 0.00 % L=0.00 %NRBC H=0.20 9.86 10*3/uL L=1.50 751-8 LOINC #NEUT H=6.60 1.46 10*3/uL L=1.50 06131-6 LOINC #LYMPH H=3.50 1.320 10*3/uL L=0.100 742-7 LOINC #MONO H=1.000 0.770 10*3/uL L=0.000 713-8 LOINC #EOS H=0.700 0.10 10*3/uL L=0.00 71255-5 LOINC #BASO H=0.20 0.050 10*3/uL L=0.000 #IG H=0.031 0.00 10*3/uL L=0.00 #NRBC H=0.01 NOT INDICATED 64397-8 LOINC MANUAL DIFF NOT INDICATED 6742-1 LOINC RBC MORPH MAGNESIUM - Collect Date/Time: 14:28 [facility] [address] [place], [place], [id number] LOINC: 19056-8 Test Value Unit Reference Range Code Code Syst em 2.0 mg/dL L=1.6 H=2.3 72392-5 LOINC MAGNESIUM CHEST 1V XRAY - Completed: 08/22/2021 14 :50 LOINC: 27089-0 AP chest x-rayHISTORY: PainSingle fronta l view of the chest, no comparisonsThere are overlying leads. There is no evident air space disease, pneumothorax, or pleural effusion. Cardiac mediastinal silhouette is within normal limits.IMPRESSION: Normal chest.Electronically Reviewed and Signed by: Darrell Ballesteros MD on 08/22/2021 3:02 PM Social History Type Status Start Date End Date Code Code System Smoking History Never smoker 499587779 SNOMED- CT (Never Smoked) Vital Signs Vital Sign Value Unit Aline Aline Date/Time Recent/Initial? C ode Code Value Unit System Body Mass kg/m2 08/22/2021 Initial 48252 ZEFERINO NC Index 14:38 -5 27.55 Systolic mm[Hg] 08/22/2021 Most Recent 8480- LOINC Blood 15:41 6 Pressure 117 Diastolic mm[Hg] 08/22/2021 Most Recent 8462- LOINC Blood 15:41 4 Pressure 72 Systolic mm[Hg] 08/22/2021 Initial 8480- LOIN C Blood 14:38 6 Pressure 127 Diastolic mm[Hg] 08/22/2021 Initial 8462- ZEFERINO NC Blood 14:38 4 Pressure 59 Body Surface m2 08/22/2021 Initial 3140- LOINC Area 14:38 1 2.07 Height cm 70.00 in 08/22/2021 Initial 8302- LOINC 14:38 2 177.800 0 O2 Saturation % 08/22/2021 Most Recent 594 08 LOINC 15:41 -5 98 O2 Saturation % 08/22/2021 Initial 92775 LOINC 14:38 -5 98 Pulse /min 08/22/2021 Most Recent 8867- L OINC 15:41 4 99.0 Pulse /min 08/22/2021 Initial 8867- LOINC 14:38 4 83.0 Respiration /min 08/22/2021 Most Recent 9279- LOINC 15:41 1 18 Respiration /min 08/22/2021 Initial 9279- L OINC 14:38 1 16 Temperature Mara 97.5 F 08/22/2021 Initial 8310- L OINC 14:38 5 36.4 Weight kg 192.00 lbs 08/22/2021 Initial 96791 LOINC 14:38 -7 87.09 Medications Medication Start End Route Frequency Dose Code Code Med ication Date Date System Instruct ions 08/23/19 ORAL X1 81 MG 672929 RxNorm ASPIRIN 22 022 81 MG 81MG CHEW TAB OR AL ONE TIME 08/23/19 IV PIGGY X1 710 4138518 RxNorm CALCIUM 22 022 ml/hr 150 ml/hr GLUCONATE IV PIG GY ONE 1GM/ D5W 50ML TI ME DOSE IV PREDE ~~~CALCIUM 1 GM RxNorm GLUCONATE VL 10% =1GRAM/ 10ML ~~~D5W 50ML IV 50 ML RxNorm 08/22/2021 08/22/2021 IV PUSH X1 0.5 2082407 RxNorm DEXTROSE AMP 0.5 50%(25GM/50ML) A MP IV PUSH 50ML ONE TIME 08/22/2021 08/22/2021 IV PUSH X1 10 RxNorm HumuLIN R ED SLOWLY UNIT 10 STOCK 3ML UNIT I V PUSH INSULIN SLOWLY O NE TIME 08/22/2021 08/22/2021 INTRAVENOUS X1 9163122 RxNorm NS 0.9% 1000ML continuo us INTRAVEN OUS ONE TIME DOSE ~~~NS 0.9% 1000 ML RxNorm 1000ML Assessment You had the followin g problems: CHF HTN DIABETES 2 ANXIETY CHRONIC KIDNEY DISEASE CAD EMERGENCY DEPARTMENT COURSE/MEDICAL DECISION MAKING ASA 81 mg PO calcium gluconate 1 g IVPB and regular insulin 10 units IV push with a half amp of D50 was given for hyperkalemia s ystolic blood pressure was 89 and pt rec eived .9NS 500 cc bolus patient remains chest pain-free throughout the ER stay patient refused any further blood thinners secondary to a history of a bleed behind his left eye patient's case was discuss ed with Dr. Ramirez at [facility] ER -- he will accept the patient on ALS transfer Assessment/Clinical Impression : chest pain, atherosclerotic coronar y disease, hyperkalemia, Mobitz type 1 - 2nd degree heart block Hospital Discharge Instructions Should you have any questions prior to discharge, please contact a member of your healthcare team. If you have left the hospital and have any questions, please contact your primary c are physician. Reason For Referral Receiving Provider: law Procedures Procedure Name Date Status Code Code System Knee completed 62603544 SNO MED CT completed 50254302 SNOMED CT AMPUTATION OF TOE completed 07894316 SNOMED CT Cardiac revascularization with catheter stent Implants No Data Found Problems Problem Start Date Resolved Date Status Code Code System CHF active 66280182 SNOMED-CT HTN active 67428807 SNOMED-CT DIABETES 2 active 31343257 SNOMED-CT ANXIETY active 17134853 SNOMED-CT CHRONIC KIDNEY active 580875081 SNOMED-CT DISEASE CAD active 52034977 SNOMED-CT Allergies Allergy Reaction Severity Start Date Concern Code Code Syst em Substance Status Active 052372 SNOMED-CT CIPRO Plan of Treatment No Data Found Encounters No Data Found Goals No Data Found Health Concerns Section No Data Found
[2021-08-24 09:40] LABS: HCT 40.9 % (39.6-50.0); HGB 13.5 g/dL (13.0-17.0); MCH 29.9 pg (27.0-32.0); MCV 90.5 fL (80.0-97.0); Mean Platelet Volume 10.5 fL (9.5-12.2); NRBC Per 100 WBC 0 /100 WBCS (0.0-0.0); Platelet Count 212 X 10*3/uL (140-440); RBC 4.52 X 10*6/uL (4.40-5.60); RDW 14.6 % (11.5-14.5); WBC 9.82 X 10*3/uL (4.50-10.00)
[2021-08-24 09:45] LABS: Albumin/Globulin Ratio 1.38 (1.60-3.17); Anion Gap 10.4 mmol/L (10.00-18.00); BUN/Creat Ratio 24.82 Ratio (12.00-20.00); Blood Urea Nitrogen 42.2 mg/dL (9.0-27.0); Calcium 9.7 mg/dL (8.7-10.3); Carbon Dioxide 21.6 mmol/L (20.0-27.5); Globulin 2.9 g/dL (1.6-3.3); Magnesium 2.4 mg/dL (1.5-2.4); Non-African American GFR(CKD) 40.5 (60.0-200.0); Potassium 5.8 mmol/L (3.5-5.5); Total Bilirubin 0.4 mg/dL (0.30-1.20); Total Protein 6.9 g/dL (6.2-8.2)
[2021-08-24] MEDS ORDERED: DEXTROSE 50% SYRINGE 50 ML IVP STA (10:49)
[2021-08-24] MEDS ORDERED: CALCIUM GLUCONATE IN NACL 2 GM in SALINE 1 100ML.BAG IVPB ONE (10:49)
[2021-08-24] MEDS ORDERED: INSULIN REGULAR 100 UNIT/ML VIAL (IV) IV ONE (10:50)
[2021-08-24] MEDS ORDERED: SODIUM POLYSTYRENE SULFONATE 15 GM/60 ML BOTTLE PO STA (10:51)
[2021-08-24 11:55] LABS: Glucose,Whole Blood 203 mg/dL (75-99)
--- NOTE | 2021-08-24 13:50 | P.PN ---
Subjective Progress Note Date: 08/24/21 Hospital course: Patient is a very pleasant 66-year-old male with a past medical history of CAD with previous DC and stents, ischemic cardiomyopathy with previously known EF of 30%, hypertension, hyperlipidemia, and osteoarthritis. Patient presented to the emergency department with a chief complaint of chest pain radiating into left shoulder accompanied by palpitations, nausea, and diaphoresis. Patient underwent full evaluation. Initial troponin 0.026. EKG showing sinus rhythm 83 bpm with occasional PVC. Chest x-ray negative for acute cardiopulmonary process. Patient was admitted under our services with consultation to cardiology. Echocardiogram revealing dilated left ventricle with generalized hypokinesia with an ejection fraction of 20%, severe left atrial enlargement and mild mitral and tricuspid regurgitation. Troponins trended throughout the night at 0.026, 0.040, and 0.038. Imelda scan stress test showing no scintographic evidence for pharmacologically induced left ventricular reversible ischemia, did reveal findings consistent with prior infarct and an abnormal low ejection fraction of 24%. Physical exam: Patient seen and fully evaluated at bedside. He currently denies having any headache, lightheadedness, dizziness, chest pain, palpitations, or shortness of breath. Plan is for outpatient follow-up with cardiology to further discuss AICD placement. Aldactone is to be discontinued as patient with continued hyperkalemia. Renal function is improving with gentle hydration as BUN 42.2, creatinine 1.7, and GFR 40.5 this morning. However patient remains hyperkalemic despite hyperkalemia cocktail. Additional hyperkalemia cocktail given at this time including Kayexalate, calcium gluconate, insulin, and dextrose. Vital signs reviewed and stable. General: Nontoxic, no distress and appears stated age. Derm: Skin warm and dry, normal coloration for ethnicity. Head: Atraumatic, normocephalic and symmetric. Eyes: EOMs intact, no lid lag, and anicteric sclera Mouth: no lip lesions, mucus membranes moist Cardiovascular: regular rate and rhythm with normal S1S2, systolic murmur, positive posterior tibial pulses bilaterally, and cap refill < 2 seconds. Lungs: Respirations even, regular, and unlabored on room air. Lungs CTA bilaterally, no rhonchi, no rales, no wheezing, and no accessory muscle usage. Abdominal: soft, nontender to palpation, no guarding, no appreciable organomegaly Ext: ROM intact. No gross muscle atrophy, no edema, no contractures Neuro: Speech clear, face symmetrical and CN II-XII grossly intact with no noted focal neuro deficits Psych: Alert and oriented to person, place, time, and situation. Appropriate and pleasant affect. Assessment and Plan of Care: Chest pain, acute coronary event ruled out Ischemic cardiomyopathy with ejection fraction of 20%, cardiology planning for AICD placement outpatient Hypertension Hyperlipidemia and hypertriglyceridemia -Cardiology following, planning for AICD placement and will discuss further at outpatient appointment -Telemetry monitoring -Cardiac diet -EKG showing sinus rhythm 83 bpm with occasional PVC. -Echocardiogram revealing dilated left ventricle with generalized hypokinesia with an ejection fraction of 20%, severe left atrial enlargement and mild mitral and tricuspid regurgitation. -Imelda scan stress test showing no scintographic evidence for pharmacologically induced left ventricular reversible ischemia, did reveal findings consistent with prior infarct and an abnormal low ejection fraction of 24%. -At this time we have to hold Lasix and Aldactone secondary to YEIMY and hyperkalemia. -Patient to continue daily cardiac medication regimen with amlodipine, aspirin, and atorvastatin. Acute kidney injury, improving with gentle IV hydration Hyperkalemia -Hold nephrotoxic medications including Lasix and Aldactone. -Gentle hydration with 0.9% normal saline at 75 mL per hour, must be cautious with hydration as patient's EF is 20%. -May consider nephrology consult if no improvement in renal function upon repeat labs. CODE STATUS: Full code DVT prophylaxis: Heparin Discussed with: Patient and RN Anticipated discharge date: Clinical course to determine Anticipated discharge place: Home A total of 35 minutes was spent on the care of this complex patient more than 50% of the time was spent in counseling and care coordination. Objective - Vital Signs Vital signs: Vital Signs Temp 97.7 F 08/24/21 07:00 Pulse 97 08/24/21 07:00 Resp 16 08/24/21 07:00 BP 146/94 08/24/21 07:00 Pulse Ox 98 08/24/21 07:00 Intake & Output 08/23/21 08/24/21 08/24/21 18:59 06:59 18:59 Intake Total 500 818 Balance 500 818 Weight 87.09 kg Intake: Intake, IV Titration 700 Amount Calcium Gluconate in NaCl 100 2 gm In Saline 1 100ml. bag @ 100 mls/hr IVPB ONCE ONE Rx#:[id number] Sodium Chloride 0.9% 1, 600 000 ml @ 75 mls/hr IV . [id number] [facility] Rx#:[id number] Oral 500 118 Other: # Voids 2 1 - Labs CBC & Chem 7: 08/24/21 05:45 08/24/21 05:45 Labs: Abnormal Lab Results - Last 24 Hours (Table) 08/23/21 08/23/21 08/24/21 Range/Units 17:17 21:48 05:45 RDW 14.6 H (11.5-14.5) % Potassium (3.5-5.5) mmol/L BUN (9.0-27.0) mg/dL Creatinine (0.6-1.5) mg/dL Est GFR (CKD-EPI)AfAm (60.0-200.0) Est GFR (CKD-EPI)NonAf (60.0-200.0) BUN/Creatinine Ratio (12.00-20.00) Ratio Glucose (70-110) mg/dL POC Glucose (mg/dL) 296 H 254 H (75-99) mg/dL Albumin/Globulin Ratio (1.60-3.17) g/dL 08/24/21 08/24/21 08/24/21 Range/Units 05:45 07:14 11:54 RDW (11.5-14.5) % Potassium 5.8 H (3.5-5.5) mmol/L BUN 42.2 H (9.0-27.0) mg/dL Creatinine 1.7 H (0.6-1.5) mg/dL Est GFR (CKD-EPI)AfAm 47.0 L (60.0-200.0) Est GFR (CKD-EPI)NonAf 40.5 L (60.0-200.0) BUN/Creatinine Ratio 24.82 H (12.00-20.00) Ratio Glucose 139 H (70-110) mg/dL POC Glucose (mg/dL) 147 H 203 H (75-99) mg/dL Albumin/Globulin Ratio 1.38 L (1.60-3.17) g/dL
[2021-08-24 16:59] LABS: Glucose,Whole Blood 238 mg/dL (75-99)
[2021-08-24] MEDS: FLUoxetine HCL 20 MG CAP PO SCH (20:01)
[2021-08-24] MEDS: ATORVASTATIN 40 MG TAB PO SCH (20:01)
[2021-08-24] MEDS: CITALOPRAM HYDROBROMIDE 20 MG TAB PO SCH (20:01)
[2021-08-24 20:26] LABS: Glucose,Whole Blood 252 mg/dL (75-99)
[2021-08-24] MEDS: INSULIN NPH 300 UNIT/3 ML VIAL SQ SCH (20:30)
[2021-08-25 02:17] VITALS: TEMP 97.6
[2021-08-25 06:56] LABS: Glucose,Whole Blood 109 mg/dL (75-99)
[2021-08-25] MEDS: SODIUM CHLORIDE 0.9% 1,000 ML IV SCH (07:22)
[2021-08-25] MEDS: INSULIN ASPART (NovoLOG) 100 UNIT/ML VIAL SQ SCH ×2 (07:22→12:49)
[2021-08-25 07:37] VITALS: BP 131/83; PULSE 87; RESP 20
[2021-08-25] MEDS: FENOFIBRATE 160 MG TAB PO SCH (08:43)
[2021-08-25] MEDS: ASPIRIN 81 MG PO SCH (08:43)
[2021-08-25] MEDS: HEPARIN SODIUM,PORCINE/PF 5,000 UNIT/0.5 ML SYRINGE SQ SCH (08:43)
[2021-08-25] MEDS: amLODIPine 5 MG TAB PO SCH (08:44)
--- NOTE | 2021-08-25 09:13 | P.PN ---
Subjective This is a pleasant 66-year-old male past medical history significant for Coronary artery disease s/p PCI LAD, Type 2 Diabetes, hypertension, hyperlip idemia, ischemic cardiomyopathy with EF 25-30%, congestive heart failure, chronic kidney disease. He did follow up once with Dr. Chester in 2019 but did not follow up afterwards. He currently has a follow up appointment with Dr. Miranda In September 2021. We have been asked to see in consultation for chest pain. Patient presents to the emergency department with complaints of chest discomfort. Yesterday he was doing errands in the afternoon. After walking around at [facility], he had acute onset, sharp midsternal chest discomfort. Radiating to his left shoulder and left arm. He lasted about an hour. He had associated shortness of breath, nausea and diaphoresis, and lightheadedness. He denies syncope or vomiting. Activity did aggravated his pain. No specific alleviating factors it resolved on its own. He went home, his family was concerned and wanted him to see a provider. He called his family doctor and recommended that patient go to the emergency department for evaluation. He states he has had 5 myocardial infarctions, he has had 3 stents placed in [place]. He denies history of stroke. He is a non/never smoker. Occasional alcohol use. No illicit drug use. He has ischemic cardiomyopathy with a known EF 25-30%, he has been recommended to have a BiV ICD numerous times by research instrumentation technician in [facility] and in [place]. He continues to refuse BiV ICD placement. DIAGNOSTICS -EKG reveals sinus rhythm, first-degree AV block, heart rate 83, left bundle branch block morphology, left axis deviation, poor R wave progression. Prior EKG was similar findings. -Last Cardiac Catheterization previously stented proximal segment appears patent, mild to moderate disease in the mid LAD 4050 percent stenosis, RCA is chronically occluded in its midportion. Mild diffuse disease involving a small caliber circumflex coronary artery. Maximize medical therapy was advised. 08/25/2021 Patient seen and examined at bedside. No acute events, denies any chest pain or shortness of breath. Patient underwent Lexiscan stress test 08/23/21 which revealed no scie ntificgraphic evidence for pharmacologically-induced left ventricular reversible ischemia. Findings consistent with prior infarct. Echocardiogram revealed an EF of less than 20%, severe left atrial enlargement, mild mitral and tricuspid regurgitation. Labs today pending PHYSICAL EXAMINATION Blood pressure 131/83, heart rate 87, afebrile, saturations 98% room air CONSTITUTIONAL: No apparent distress. HEENT: Neck Supple. No JVD. No carotid bruit. CHEST EXAMINATION: Lungs are clear to auscultation. No chest wall tenderness is noted on palpation or with deep breathing. HEART EXAMINATION: Regular rate and rhythm. S1, S2 heard. Systolic ejection murmur at apex. ABDOMEN: Soft, nontender. Positive bowel sounds. EXTREMITIES: 2+ peripheral pulses, no lower extremity edema and no calf tendern ess. NEUROLOGIC EXAMINATION: Patient is awake, alert and oriented x3. ASSESSMENT Chest pain, atypical acute coronary syndrome has been ruled out. Lexiscan stress test 08/23 negative for reversible ischemia, findings consistent with prior infarct. Coronary artery disease s/p PCI LAD Type 2 Diabetes Hypertension Hyperlipidemia Ischemic cardiomyopathy with EF <20% Chronic congestive heart failure with reduced ejection fraction Chronic kidney disease Hyperkalemia PLAN Dr. Chester discussed the importance of BiV ICD implantation with the patient, patient is more agreeable to this discussion and having a device implantation. This will be further discussed outpatient in the office with Dr. Miranda and can be scheduled as an outpatient. Recommend discontinuing 50mg spironolactone, and can continue to hold until follow up with Dr. Miranda and repeat BMP outpatient Continue other home cardiac medications Patient not on beta tonya secondary to first degree AV block Patient not on ACEI/ARB secondary to kidney function Patient has a follow appointment with Dr. Miranda on 09/05/2021. Please reach out with any further questions or concerns. Nurse practitioner note has been reviewed by physician. Signing provider agrees with the documented findings, assessment, and plan of care. Objective - Vital Signs Vital signs: Vital Signs Temp 97.6 F 08/25/21 07:00 Pulse 87 08/25/21 07:00 Resp 20 08/25/21 07:00 BP 131/83 08/25/21 07:00 Pulse Ox 98 08/25/21 07:00 Intake & Output 08/24/21 08/25/21 08/25/21 18:59 06:59 18:59 Intake Total 1054 180 Balance 1054 180 Intake: Intake, IV Titration 700 Amount Calcium Gluconate in NaCl 100 2 gm In Saline 1 100ml. bag @ 100 mls/hr IVPB ONCE ONE Rx#:[id number] Sodium Chloride 0.9% 1, 600 000 ml @ 75 mls/hr IV . [id number] [facility] Rx#:[id number] Oral 354 180 Other: # Voids 1 - Labs CBC & Chem 7: 08/24/21 05:45 08/24/21 05:45 Labs: Abnormal Lab Results - Last 24 Hours (Table) 08/24/21 08/24/21 08/24/21 Range/Units 05:45 05:45 11:54 RDW 14.6 H (11.5-14.5) % Potassium 5.8 H (3.5-5.5) mmol/L BUN 42.2 H (9.0-27.0) mg/dL Creatinine 1.7 H (0.6-1.5) mg/dL Est GFR (CKD-EPI)AfAm 47.0 L (60.0-200.0) Est GFR (CKD-EPI)NonAf 40.5 L (60.0-200.0) BUN/Creatinine Ratio 24.82 H (12.00-20.00) Ratio Glucose 139 H (70-110) mg/dL POC Glucose (mg/dL) 203 H (75-99) mg/dL Albumin/Globulin Ratio 1.38 L (1.60-3.17) g/dL 08/24/21 08/24/21 08/25/21 Range/Units 16:56 20:24 06:55 RDW (11.5-14.5) % Potassium (3.5-5.5) mmol/L BUN (9.0-27.0) mg/dL Creatinine (0.6-1.5) mg/dL Est GFR (CKD-EPI)AfAm (60.0-200.0) Est GFR (CKD-EPI)NonAf (60.0-200.0) BUN/Creatinine Ratio (12.00-20.00) Ratio Glucose (70-110) mg/dL POC Glucose (mg/dL) 238 H 252 H 109 H (75-99) mg/dL Albumin/Globulin Ratio (1.60-3.17) g/dL
[2021-08-25 09:24] LABS: HGB 12.8 g/dL (13.0-17.0); MCH 30.3 pg (27.0-32.0); MCHC 33.7 g/dL (32.0-37.0); MCV 89.8 fL (80.0-97.0); Mean Platelet Volume 10.2 fL (9.5-12.2); NRBC Per 100 WBC 0 /100 WBCS (0.0-0.0); Platelet Count 184 X 10*3/uL (140-440); RBC 4.23 X 10*6/uL (4.40-5.60); RDW 14.7 % (11.5-14.5); WBC 8.87 X 10*3/uL (4.50-10.00)
[2021-08-25 09:36] LABS: Albumin 3.9 g/dL (3.8-4.9); Albumin/Globulin Ratio 1.39 (1.60-3.17); Anion Gap 11.7 mmol/L (10.00-18.00); BUN/Creat Ratio 23.18 Ratio (12.00-20.00); Blood Urea Nitrogen 39.4 mg/dL (9.0-27.0); Calcium 9.3 mg/dL (8.7-10.3); Carbon Dioxide 22.3 mmol/L (20.0-27.5); Globulin 2.8 g/dL (1.6-3.3); Non-African American GFR(CKD) 40.5 (60.0-200.0); Potassium 4.9 mmol/L (3.5-5.5); Total Bilirubin 0.4 mg/dL (0.30-1.20); Total Protein 6.7 g/dL (6.2-8.2)
[2021-08-25 11:51] LABS: Glucose,Whole Blood 164 mg/dL (75-99)
--- NOTE | 2021-08-25 12:44 | P.DS ---
Providers Date of admission: 08/23/21 15:42 Expected date of discharge: 08/25/21 Attending physician: Randolph Avendano MD Consults: 08/22/21 19:14 Consult Physician Urgent Consulting Provider: [facility] Consult Reason/Comments: Chest pain Do you want consulting provider notified?: Yes Primary care physician: Mike Escobar Hospital Course: t 66-year-old male with a past medical history of CAD with previous NM and stents, ischemic cardiomyopathy with previously known EF of 30%, hypertension, hyperlipidemia, and osteoarthritis. Patient presented to the emergency department with a chief complaint of chest pain radiating into left shoulder accompanied by palpitations, nausea, and diaphoresis. Patient underwent full evaluation. Initial troponin 0.026. EKG showing sinus rhythm 83 bpm with occasional PVC. Chest x-ray negative for acute cardiopulmonary process. Patient was admitted under our services with consultation to cardiology. Echocardiogram revealing dilated left ventricle with generalized hypokinesia with an ejection fraction of 20%, severe left atrial enlargement and mild mitral and tricuspid regurgitation. Troponins trended throughout the night at 0.026, 0.040, and 0.038. Imelda scan stress test showing no scintographic evidence for pharmacologically induced left ventricular reversible ischemia, did reveal findings consistent with prior infarct and an abnormal low ejection fraction of 24%. Diuretics were held due to renal failure. According to cardiology patient will need to have BiV ICD implantation which was arranged for the outpatient setting. Patient not on beta tonya secondary to first degree AV block. Patient not on ACEI/ARB secondary to kidney function. No cardiac cath was advised per cardio.. It was noticed that his blood sugars were running high in the 200 range. He was placed on SSI here in the hospital. He will be started on metformin upon discharge. A1c was ordered upon discharge.. BMP was ordered for Saturday as well. He was instructed to discontinue diuretics until BMP check done. If no improvement in his renal function noted on the outpatient lab check, a nephrology consult will be indicated, patient is aware. Of note patient did have renal failure according to the records he has with him on his last hospitalization last month. Patient has a follow appointment with Dr. Miranda on 09/05/2021. Plan - Discharge Summary New Discharge Prescriptions: Continue Nitroglycerin Sl Tabs [Nitrostat] 0.4 mg SUBLINGUAL Q5M PRN PRN Reason: Chest Pain Citalopram Hydrobromide 20 mg PO HS ALPRAZolam [Xanax] 0.5 mg PO DAILY PRN PRN Reason: Anxiety Aspirin 81 mg PO HS #30 chew Simvastatin [Zocor] 10 mg PO HS FLUoxetine HCL [PROzac] 20 mg PO HS amLODIPine [Norvasc] 5 mg PO DAILY Acetaminophen Tab [Tylenol] 650 mg PO Q4H PRN PRN Reason: Pain Or Fever > 100.5 Discontinued Insulin NPH Human Isophane [NovoLIN N] 20 unit SQ HS Furosemide [Lasix] 40 mg PO HS Spironolactone [Aldactone] 50 mg PO DAILY Discharge Medication List ALPRAZolam [Xanax] 0.5 mg PO DAILY PRN 10/20/17 [History] Citalopram Hydrobromide 20 mg PO HS 10/20/17 [History] Nitroglycerin Sl Tabs [Nitrostat] 0.4 mg SUBLINGUAL Q5M PRN 10/20/17 [History] Aspirin 81 mg PO HS #30 chew 05/08/19 [Rx] Acetaminophen Tab [Tylenol] 650 mg PO Q4H PRN 08/22/21 [History] FLUoxetine HCL [PROzac] 20 mg PO HS 08/22/21 [History] Simvastatin [Zocor] 10 mg PO HS 08/22/21 [History] amLODIPine [Norvasc] 5 mg PO DAILY 08/22/21 [History] Follow up Appointment(s)/Referral(s): Jarod Miranda MD [STAFF PHYSICIAN] - 09/05/21 3:45 pm Mike Escobar MD [Primary Care Provider] - 1-2 days Patient Instructions/Handouts: Chest Pain (DC)
--- NOTE | 2021-08-28 16:07 | CDI ---
Documentation Clarification Form Date: 08/28/2021 04:00:10 PM From: Darryl Maradiaga Admit Date: 08/23/2021 03:42:00 PM Patient Name: Jabier Mitchell Visit Number: [id number] Discharge Date: 08/25/2021 01:16:00 PM ATTENTION: The Clinical Documentation Specialists (CDI) and [facility] Coding Staff appreciate your assistance in clarifying documentation. Please respond to the clarification below the line at the bottom and electronically sign. The CDI & [facility] Coding staff will review the response and follow-up if needed. Please note: Queries are made part of the Legal Health Record. If you have any questions, please contact the author of this message via ITS. Dr. Breanne Baird Your patient has the documented symptom of chest pain per H+P and discharge summary. Additional clarification regarding the etiology/cause of this symptom is requested. Patient C/O: chest pain History/Risk factors: CAD with stent Clinical Indicators: Troponin: .026, .040, .038 Labs: stress test inconclusive Treatment: Consults: cardiology Please provide additional clarification regarding the etiology/cause of the chest pain. [ ] Chest pain due to Aortic stenosis [ ] Chest pain due to CAD with angina (specify vessel and type of angina if known) [ ] Chest pain due to cardiac arrhythmias (specify type if known) [ ] Chest pain due to chest wall pain [ ] Chest pain due to Costochondritis [ ] Chest pain due to GERD [ ] Chest pain due to pleurisy [ ] Chest pain due to psychogenic chest pain [ ] Chest pain due to unstable angina [ ] Chest pain due to other condition, please specify [ ] Unable to determine [ ] NSTEMI Chest pain due to chest wall pain [facility]
== END 2021-08-25 13:16 | disposition home or self-care (01) ==
LOC: EC 18:20 → 6NMEDSUR 19:14 → INTOOBSV 08-23 15:42 → OBSVTOIN 08-23 15:42 → UNDODISIN 08-25 13:16
PROVIDERS: ADMIT Internal Medicine; ATTEND Internal Medicine
DX: R07.89 Other chest pain (principal); N17.9 Acute kidney failure, unspecified; E87.5 Hyperkalemia; I25.5 Ischemic cardiomyopathy; I13.0 Hypertensive heart and chronic kidney disease with heart failure and stage 1 through stage 4 chronic kidney disease, or unspecified chronic kidney disease; I50.22 Chronic systolic (congestive) heart failure; N18.9 Chronic kidney disease, unspecified; I44.0 Atrioventricular block, first degree; E11.22 Type 2 diabetes mellitus with diabetic chronic kidney disease; I25.10 Atherosclerotic heart disease of native coronary artery without angina pectoris; I25.82 Chronic total occlusion of coronary artery; E78.00 Pure hypercholesterolemia, unspecified; I08.1 Rheumatic disorders of both mitral and tricuspid valves; R79.89 Other specified abnormal findings of blood chemistry; B35.1 Tinea unguium; I44.7 Left bundle-branch block, unspecified; E78.5 Hyperlipidemia, unspecified; I25.2 Old myocardial infarction; J44.9 Chronic obstructive pulmonary disease, unspecified; F41.9 Anxiety disorder, unspecified; Z79.4 Long term (current) use of insulin; Z79.84 Long term (current) use of oral hypoglycemic drugs; Z79.82 Long term (current) use of aspirin; Z79.899 Other long term (current) drug therapy; Z95.5 Presence of coronary angioplasty implant and graft; Z89.422 Acquired absence of other left toe(s); Z98.890 Other specified postprocedural states; Z85.828 Personal history of other malignant neoplasm of skin; Z82.49 Family history of ischemic heart disease and other diseases of the circulatory system; Z83.3 Family history of diabetes mellitus; Z84.1 Family history of disorders of kidney and ureter
CPT/HCPCS: 96376; 96361 ×2; 96374; 99285; 36415; 93005; 93017; 93306; 80061; 80053 ×3; 80048; 83735; 84132; 84484 ×2; 85027 ×2; 71045; 78452; G0378 ×4; A9500; J2785; J1644; J0610 ×2

== ENCOUNTER 2021-10-16 06:23 | Inpatient (IN) | payer MEDICARE ==
[2021-10-16] MEDS ORDERED: fentaNYL (PF) 50 MCG/ML 2 ML AMP IVP STA ×2 (07:16→08:13)
[2021-10-16] MEDS ORDERED: ONDANSETRON 4 MG/2 ML VIAL IVP STA (07:16)
[2021-10-16 07:39] LABS: Anisocytosis Slight; HCT 51.1 % (39.0-53.0); HGB 15.4 gm/dL (13.0-17.5); Hypochromasia Marked; MCHC 30.2 g/dL (31.0-37.0); MCV 106.1 fL (80.0-100.0); Macrocytosis Marked; Mean Platelet Volume 8.7; Platelet Count 267 k/uL (150-450); Poikilocytosis Slight; RBC 4.82 m/uL (4.30-5.90); RDW 17.3 % (11.5-15.5); WBC 31.4 k/uL (3.8-10.6)
[2021-10-16 07:49] LABS: INR 1.8 (<1.2); Partial Thromboplastin Time 27.7 sec (22.0-30.0); Prothrombin Time 18.4 sec (9.0-12.0)
[2021-10-16 07:56] LABS: Albumin 4.3 g/dL (3.5-5.0); Calcium 8.9 mg/dL (8.4-10.2); Magnesium 2.1 mg/dL (1.6-2.3); Total Bilirubin 3.4 mg/dL (0.2-1.3); Total Protein 7.4 g/dL (6.3-8.2)
[2021-10-16 08:06] LABS: Band Neutrophils % 8 %; Basophils # (M) 0.31 k/uL (0-0.2); Lymphocytes # (M) 0.94 k/uL (1.0-4.8); Monocytes # (M) 1.26 k/uL (0-1.0); Neutrophils % (M) 85 %; Nucleated Red Blood Cells 0 /100 WBC (0-0); Total Cells Counted 200
[2021-10-16 08:07] LABS: Polychromasia Present
[2021-10-16 08:13] LABS: Potassium 6.2 mmol/L (3.5-5.1)
--- NOTE | 2021-10-16 08:23 | XR ---
EXAMINATION TYPE: XR chest 2V DATE OF EXAM: 10/16/2021 COMPARISON: Chest x-ray 08/22/2021 HISTORY: Chest pain TECHNIQUE: Frontal and lateral views of the chest are obtained. FINDINGS: Patchy density noted on the lateral exam towards the posterior costophrenic sulcus on the right, there is eventration of right hemidiaphragm elevation as on prior. No evident pneumothorax. Ca rdiac mediastinal silhouette is similar, patient is rotated. There are overlying leads. Arthropathy n oted in the shoulders. Questionable blunting of the right costophrenic angle. IMPRESSION: Persistent cardiomegaly. Difficult to exclude right lower lobe atelectasis versus pneumo jacqueline, possible effusion
--- NOTE | 2021-10-16 08:29 | US ---
EXAMINATION TYPE: US venous doppler duplex LE LT DATE OF EXAM: 10/16/2021 8:12 AM COMPARISON: NONE CLINICAL HISTORY: pain. In leg and swelling SIDE PERFORMED: Left TECHNIQUE: The lower extremity deep venous system is examined utilizing real time linear array sonog randa with graded compression, doppler sonography and color-flow sonography. VESSELS IMAGED: Common Femoral Vein Deep Femoral Vein Greater Saphenous Vein * Femoral Vein Popliteal Vein Small Saphenous Vein * Proximal Calf Veins (* superficial vessels) Left Leg: Left groin appears positive for DVT at the CFV where there is no flow and can not be compr essed. The flow in the femoral vein is thready but vein can be compressed. IMPRESSION: Findings consistent with deep venous thrombosis involving the left common femoral vein, s uperficial femoral vein.
--- NOTE | 2021-10-16 09:12 | US ---
EXAMINATION TYPE: US gallbladder DATE OF EXAM: 10/16/2021 COMPARISON: CT 03/10/2019 CLINICAL HISTORY: Transaminitis. NPO x 16 hours EXAM MEASUREMENTS: Liver Length: 17.1 cm Gallbladder Wall: 0.48 cm CBD: 0.38 cm Right Kidney: 10.0 x 5.7 x 5.0 cm Pancreas: Obscured by bowel gas Liver: There is a somewhat coarse echotexture, no evident mass Gallbladder: Gallbladder filled with stones. ARLEY sign Evidence for sonographic Montaño's sign: No CBD: wnl Right Kidney: Cyst in lower pole measuring 1.9 x 1.6 x 1.4 cm, question focal cortical defect, cyst not clearly simple cystic IMPRESSION: Limited exam. Cholelithiasis, correlate for cholecystitis. There may be [id number] hepa tocellular disease, hepatic steatosis
[2021-10-16] MEDS ORDERED: HEPARIN SODIUM 1,000 UN/ML (10ML VL) IV PRN (09:17)
[2021-10-16] MEDS ORDERED: HEPARIN SODIUM 1,000 UN/ML (10ML VL) IV ONE (09:17)
[2021-10-16] MEDS ORDERED: SODIUM CHLORIDE 0.9% 1,000 ML IV ONE (09:30)
[2021-10-16] MEDS ORDERED: SODIUM CHLORIDE 0.9% 1,000 ML IV SCH (09:30)
[2021-10-16] MEDS ORDERED: PIPERACILLIN-TAZOBACTAM 3.375 GM in SODIUM CHLORIDE 0.9% 100 ML IVPB STA (09:31)
[2021-10-16] MEDS: HEPARIN SOD,PORK IN 0.45% NACL 25,000 UNIT in 0.45% NACL 1 250ML.BAG IV SCH (09:39)
--- NOTE | 2021-10-16 09:45 | ED ---
Extremity Problem HPI - General Chief complaint: Extremity Problem,Nontraumatic Stated complaint: Leg pain Time Seen by Provider: 10/16/21 06:54 Source: patient, RN notes reviewed Mode of arrival: ambulatory - History of Present Illness Initial comments: This a 66-year-old male presents emergency Department chief complaint left leg pain. Patient states she is here [facility] yesterday for nausea vomiting states he is diagnosed with gastroenteritis she states is given multiple liters of fluid and states he feels short of breath today is concerned that he may be having issues with his congestive heart failure. Patient states that he has had multiple heart attacks and he has last known ejection fraction of less than 20. Patient denies any chest pain states he does feel short of breath denies fevers or chills states he did have abdominal discomfort yesterday which is slightly improved. Patient's complaining of severe left leg pain swelling discoloration. Patient states that he does have diabetes and poor vascular supination of his lower extremities. Patient denies any trauma. Patient has no history of blood clots. - Related Data Home Medications Medication Instructions Recorded Confirmed ALPRAZolam [Xanax] 0.5 mg PO DAILY PRN 10/20/17 08/22/21 Citalopram Hydrobromide 20 mg PO HS 10/20/17 08/22/21 Nitroglycerin Sl Tabs [Nitrostat] 0.4 mg SUBLINGUAL Q5M PRN 10/20/17 08/22/21 Acetaminophen Tab [Tylenol] 650 mg PO Q4H PRN 08/22/21 08/22/21 FLUoxetine HCL [PROzac] 20 mg PO HS 08/22/21 08/22/21 Simvastatin [Zocor] 10 mg PO HS 08/22/21 08/22/21 amLODIPine [Norvasc] 5 mg PO DAILY 08/22/21 08/22/21 Previous Rx's Medication Instructions Recorded Aspirin 81 mg PO HS #30 chew 05/08/19 Allergies Allergy/AdvReac Type Severity Reaction Status Date / Time ciprofloxacin [From Cipro] Allergy Rash/Hives Verified 10/16/21 07:09 Review of Systems ROS Statement: Those systems with pertinent positive or pertinent negative responses have been documented in the HPI. ROS Other: All systems not noted in ROS Statement are negative. Past Medical History Past Medical History: Coronary Artery Disease (CAD), Cancer, Diabetes Mellitus, Hyperlipidemia, Hypertension, Myocardial Infarction ([place]) Additional Past Medical History / Comment(s): skin cancer on nose August 2020 Last Myocardial Infarction Date:: 02/12/2019 History of Any Multi-Drug Resistant Organisms: None Reported Past Surgical History: Heart Catheterization, Heart Catheterization With Stent, Orthopedic Surgery Additional Past Surgical History / Comment(s): skin cancer removed from nose August 2020 Past Anesthesia/Blood Transfusion Reactions: No Reported Reaction Date of Last Stent Placement:: 2012 Past Psychological History: Anxiety Smoking Status: Never smoker Past Alcohol Use History: Occasional Past Drug Use History: None Reported - Past Family History Mother Family Medical History: Coronary Artery Disease (CAD), Diabetes Mellitus, Myocardial Infarction ([place]) Father Family Medical History: Diabetes Mellitus, Renal Disease family Additional Family Medical History / Comment(s): Mother with history of diabetes mellitus and CAD, father with history of heart disease and diabetes General Exam General appearance: alert, in no apparent distress Head exam: Present: atraumatic, normocephalic, normal inspection Eye exam: Present: normal appearance, PERRL, EOMI. Absent: scleral icterus, conjunctival injection, periorbital swelling ENT exam: Present: normal exam, normal oropharynx, mucous membranes moist Neck exam: Present: normal inspection, full ROM. Absent: tenderness, meningismus, lymphadenopathy Respiratory exam: Present: normal lung sounds bilaterally. Absent: respiratory distress, wheezes, rales, rhonchi, stridor Cardiovascular Exam: Present: regular rate, normal rhythm, normal heart sounds. Absent: systolic murmur, diastolic murmur, rubs, gallop, clicks GI/Abdominal exam: Present: soft, normal bowel sounds. Absent: distended, tenderness, guarding, rebound, rigid Extremities exam: Present: other (Left lower leg there is diffuse swelling, discoloration greater than the left versus the right there is brawny changes bilaterally there is a posterior tibialis pulse with Doppler no dorsal pedis) Neurological exam: Present: alert, oriented X3 Course Vital Signs 10/16/21 10/16/21 10/16/21 07:04 07:32 08:23 Temperature 98.4 F Pulse Rate 60 56 L 53 L Respiratory 19 18 18 Rate Blood Pressure 87/59 99/65 89/76 O2 Sat by Pulse 95 96 95 Oximetry Procedures - Harriet Protocol (Time Out) Nurse: Benedicto Beck Medical Decision Making - Medical Decision Making 66-year-old male presented for left leg pain. Patient's found have acute DVT of his left lower extremity patient does have significantly elevated BMP 57,000, elevated troponin most likely related to renal failure though there is concern about possible PE, heart strain, V/Q scan was ordered secondary to renal failure unable to his contrast. Patient did have prior CT which is obtained from [facility] showed cholelithiasis no other abdominal abnormality's. Ultrasound confirms cholelithiasis possible cholecystitis. Patient did have 19,000 white count with a left before yesterday, current visit doses at 31,009 to go 11. Patient has significant CHF with ejection fraction last known less than 20 patient was given 1 L fluid will not receive full 30 miles per KG given significant heart failure patient was started on maintenance fluids at 1:30 in hour. Patient was given broad-spectrum antibiotics for possible cholecystitis with significant lactic acid and leukocytosis. I did discuss case with Dr. Johnson. I did discuss the case with vascular. Patient was started on heparin high-dose given DVT and possible PE. - Lab Data Result diagrams: 10/16/21 07:25 10/16/21 08:27 Lab Results 10/16/21 10/16/21 10/16/21 Range/Units 07:25 07:25 07:25 WBC 31.4 H (3.8-10.6) k/uL RBC 4.82 (4.30-5.90) m/uL Hgb 15.4 (13.0-17.5) gm/dL Hct 51.1 (39.0-53.0) % MCV 106.1 H (80.0-100.0) fL MCH 32.0 (25.0-35.0) pg MCHC 30.2 L (31.0-37.0) g/dL RDW 17.3 H (11.5-15.5) % Plt Count 267 (150-450) k/uL MPV 8.7 Neutrophils % (Manual) 85 % Band Neuts % (Manual) 8 % Lymphocytes % (Manual) 3 % Monocytes % (Manual) 4 % Basophils % (Manual) 1 % Neutrophils # (Manual) 29.20 H (1.3-7.7) k/uL Lymphocytes # (Manual) 0.94 L (1.0-4.8) k/uL Monocytes # (Manual) 1.26 H (0-1.0) k/uL Basophils # (Manual) 0.31 H (0-0.2) k/uL Nucleated RBCs 0 (0-0) /100 WBC Polychromasia Present Hypochromasia Marked Poikilocytosis Slight Anisocytosis Slight Macrocytosis Marked A PT 18.4 H (9.0-12.0) sec INR 1.8 H (<1.2) APTT 27.7 (22.0-30.0) sec Sodium 139 (137-145) mmol/L Potassium 6.2 H* (3.5-5.1) mmol/L Chloride 103 (98-107) mmol/L Carbon Dioxide 12 L (22-30) mmol/L Anion Gap 24 mmol/L BUN 41 H (9-20) mg/dL Creatinine 2.81 H (0.66-1.25) mg/dL Est GFR (CKD-EPI)AfAm 26 (>60 ml/min/1.73 sqM) Est GFR (CKD-EPI)NonAf 22 (>60 ml/min/1.73 sqM) Glucose 121 H (74-99) mg/dL Plasma Lactic Acid Dwain (0.7-2.0) mmol/L Calcium 8.9 (8.4-10.2) mg/dL Magnesium 2.1 (1.6-2.3) mg/dL Total Bilirubin 3.4 H (0.2-1.3) mg/dL AST 494 H (17-59) U/L ALT 240 H (4-49) U/L Alkaline Phosphatase 78 (38-126) U/L Troponin I (0.000-0.034) ng/mL NT-Pro-B Natriuret Pep pg/mL Total Protein 7.4 (6.3-8.2) g/dL Albumin 4.3 (3.5-5.0) g/dL 10/16/21 10/16/21 10/16/21 Range/Units 07:25 07:25 07:25 WBC (3.8-10.6) k/uL RBC (4.30-5.90) m/uL Hgb (13.0-17.5) gm/dL Hct (39.0-53.0) % MCV (80.0-100.0) fL MCH (25.0-35.0) pg MCHC (31.0-37.0) g/dL RDW (11.5-15.5) % Plt Count (150-450) k/uL MPV Neutrophils % (Manual) % Band Neuts % (Manual) % Lymphocytes % (Manual) % Monocytes % (Manual) % Basophils % (Manual) % Neutrophils # (Manual) (1.3-7.7) k/uL Lymphocytes # (Manual) (1.0-4.8) k/uL Monocytes # (Manual) (0-1.0) k/uL Basophils # (Manual) (0-0.2) k/uL Nucleated RBCs (0-0) /100 WBC Polychromasia Hypochromasia Poikilocytosis Anisocytosis Macrocytosis PT (9.0-12.0) sec INR (<1.2) APTT (22.0-30.0) sec Sodium (137-145) mmol/L Potassium (3.5-5.1) mmol/L Chloride (98-107) mmol/L Carbon Dioxide (22-30) mmol/L Anion Gap mmol/L BUN (9-20) mg/dL Creatinine (0.66-1.25) mg/dL Est GFR (CKD-EPI)AfAm (>60 ml/min/1.73 sqM) Est GFR (CKD-EPI)NonAf (>60 ml/min/1.73 sqM) Glucose (74-99) mg/dL Plasma Lactic Acid Dwain 11.6 H* (0.7-2.0) mmol/L Calcium (8.4-10.2) mg/dL Magnesium (1.6-2.3) mg/dL Total Bilirubin (0.2-1.3) mg/dL AST (17-59) U/L ALT (4-49) U/L Alkaline Phosphatase (38-126) U/L Troponin I 0.640 H* (0.000-0.034) ng/mL NT-Pro-B Natriuret Pep 96170 pg/mL Total Protein (6.3-8.2) g/dL Albumin (3.5-5.0) g/dL 10/16/21 Range/Units 08:27 WBC (3.8-10.6) k/uL RBC (4.30-5.90) m/uL Hgb (13.0-17.5) gm/dL Hct (39.0-53.0) % MCV (80.0-100.0) fL MCH (25.0-35.0) pg MCHC (31.0-37.0) g/dL RDW (11.5-15.5) % Plt Count (150-450) k/uL MPV Neutrophils % (Manual) % Band Neuts % (Manual) % Lymphocytes % (Manual) % Monocytes % (Manual) % Basophils % (Manual) % Neutrophils # (Manual) (1.3-7.7) k/uL Lymphocytes # (Manual) (1.0-4.8) k/uL Monocytes # (Manual) (0-1.0) k/uL Basophils # (Manual) (0-0.2) k/uL Nucleated RBCs (0-0) /100 WBC Polychromasia Hypochromasia Poikilocytosis Anisocytosis Macrocytosis PT (9.0-12.0) sec INR (<1.2) APTT (22.0-30.0) sec Sodium (137-145) mmol/L Potassium 6.0 H (3.5-5.1) mmol/L Chloride (98-107) mmol/L Carbon Dioxide (22-30) mmol/L Anion Gap mmol/L BUN (9-20) mg/dL Creatinine (0.66-1.25) mg/dL Est GFR (CKD-EPI)AfAm (>60 ml/min/1.73 sqM) Est GFR (CKD-EPI)NonAf (>60 ml/min/1.73 sqM) Glucose (74-99) mg/dL Plasma Lactic Acid Dwain (0.7-2.0) mmol/L Calcium (8.4-10.2) mg/dL Magnesium (1.6-2.3) mg/dL Total Bilirubin (0.2-1.3) mg/dL AST (17-59) U/L ALT (4-49) U/L Alkaline Phosphatase (38-126) U/L Troponin I (0.000-0.034) ng/mL NT-Pro-B Natriuret Pep pg/mL Total Protein (6.3-8.2) g/dL Albumin (3.5-5.0) g/dL Critical Care Time Critical Care Time: Yes Total Critical Care Time: 35 Disposition Clinical Impression: DVT, lower extremity, Cholelithiasis, Elevated troponin, Sepsis, Lactic acidosis Disposition: ADMITTED IP TO THIS [facility] Condition: Serious Referrals: Mike Escobar MD [Primary Care Provider] - 1-2 days Time of Disposition: 10:20
[2021-10-16] MEDS ORDERED: INSULIN REGULAR 100 UNIT/ML VIAL (IV) IV ONE ×2 (09:56→20:24)
[2021-10-16] MEDS ORDERED: DEXTROSE 50% SYRINGE 50 ML IVP STA (09:56)
[2021-10-16] MEDS ORDERED: ONDANSETRON 4 MG/2 ML VIAL IVP PRN (10:21)
[2021-10-16] MEDS ORDERED: NALOXONE 0.4 MG/ML 1 ML VIAL IV PRN (10:21)
[2021-10-16] MEDS: HYDROmorphone 0.5 MG/0.5 ML SYRINGE IVP PRN (11:05)
[2021-10-16] MEDS ORDERED: NITROGLYCERIN SL TABS 0.4 MG TAB SUBLINGUAL PRN (11:14)
[2021-10-16] MEDS ORDERED: amLODIPine 5 MG TAB PO SCH (11:15)
--- NOTE | 2021-10-16 11:40 | P.GSCN ---
History of Present Illness Consult date: 10/16/21 Reason for Consult: Left lower extremity DVT Requesting physician: Jarred Abdi History of present illness: This is a 66-year-old male with a past medical history including coronary artery disease status post cardiac stent, 5 MIs, diabetes mellitus, hyperlipidemia, hypertension, skin cancer and previous left fourth toe amputation. The patient presented to the emergency department with complaints of left lower extremity pain that started 2 days ago. Patient had a venous duplex that showed extensive left lower extremity DVT involving the left common femoral vein and superficial femoral vein. Vascular surgery was consulted for the above. He denies any previous history of DVT or pulmonary embolism. Denies any history of clotting disorder. 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 He is on a low-dose daily aspirin, denies any anticoagulation or antiplatelet therapy. States he does have some shortness of breath that was noted after he started fluids here. Patient denies any abdominal pain, states yesterday he did have some nausea and vomiting. Denies chest pain but states he does have some shortness of breath. He is currently 97% oxygen saturation on room air, heart rate 57 blood pressure 104/74 temperature 98.4 Admitting labs WBC 31.4 hemoglobin 15 hematocrit 51 platelet count 267,000 INR 1.8 sodium 139 potassium 6.2 BUN 41 creatinine 2.81 lactic acid 11.6 total bilirubin 3.4 AST 494 ALT 240 alkaline phosphatase 78 troponin 0.640 Due to the patient's elevated LFTs he underwent an ultrasound of the gallbladder that shows cholelithiasis, correlate for cholecystitis. May be underlying hepatocellular disease, hepatic state ptosis. Review of Systems A 14 point review systems was completed all pertinent positives and negatives as stated in the HPI. Past Medical History Past Medical History: Coronary Artery Disease (CAD), Cancer, Diabetes Mellitus, Hyperlipidemia, Hypertension, Myocardial Infarction ([place]) Additional Past Medical History / Comment(s): skin cancer on nose August 2020 Last Myocardial Infarction Date:: 02/12/2019 History of Any Multi-Drug Resistant Organisms: None Reported Past Surgical History: Heart Catheterization, Heart Catheterization With Stent, Orthopedic Surgery Additional Past Surgical History / Comment(s): skin cancer removed from nose August 2020 Past Anesthesia/Blood Transfusion Reactions: No Reported Reaction Date of Last Stent Placement:: 2012 Past Psychological History: Anxiety Smoking Status: Never smoker Past Alcohol Use History: Occasional Past Drug Use History: None Reported - Past Family History Mother Family Medical History: Coronary Artery Disease (CAD), Diabetes Mellitus, Myocardial Infarction ([place]) Father Family Medical History: Diabetes Mellitus, Renal Disease family Additional Family Medical History / Comment(s): Mother with history of diabetes mellitus and CAD, father with history of heart disease and diabetes Medications and Allergies Home Medications Medication Instructions Recorded Confirmed Type Nitroglycerin Sl Tabs [Nitrostat] 0.4 mg SUBLINGUAL Q5M PRN 10/20/17 10/16/21 History Acetaminophen Tab [Tylenol] 325 mg PO Q6H PRN 08/22/21 10/16/21 History FLUoxetine HCL [PROzac] 20 mg PO DAILY 08/22/21 10/16/21 History Simvastatin [Zocor] 10 mg PO HS 08/22/21 10/16/21 History amLODIPine [Norvasc] 5 mg PO DAILY 08/22/21 10/16/21 History ALPRAZolam [Xanax] 0.25 mg PO BID 10/16/21 10/16/21 History Aspirin 81 mg PO DAILY 10/16/21 10/16/21 History Furosemide [Lasix] 40 mg PO DAILY 10/16/21 10/16/21 History Insulin NPH Human Isophane 20 units SQ BID PRN 10/16/21 10/16/21 History [Novolin N] Spironolactone 50 mg PO DAILY 10/16/21 10/16/21 History Allergies Allergy/AdvReac Type Severity Reaction Status Date / Time ciprofloxacin [From Cipro] Allergy Rash/Hives Verified 10/16/21 10:28 Surgical - Exam Vital Signs Temp Pulse Resp BP Pulse Ox 98.4 F 60 19 87/59 95 10/16/21 07:04 10/16/21 07:04 10/16/21 07:04 10/16/21 07:04 10/16/21 07:04 General appearance: The patient is alert, oriented, appears in no acute dist ress. HET: Head is normocephalic and atraumatic. Pupils are equal and reactive. Neck: Supple without lymphadenopathy. Trachea midline. Heart: S1 S2. Regular rate and rhythm. Lungs: Clear to auscultation bilaterally. Abdomen: Soft, nontender, nondistended. Extremities: Bilateral lower extremities cool to the touch on feet and toes. Good capillary refill. Discoloration/redness to bilateral shins. Palpable bilateral femoral pulses. Nonpalpable DP and PT pulses. Positive DP and PT Doppler signal. Left fourth toe previous amputation site well healed. Left calf tender to palpate. Neurological: No focal deficits. Strength and sensation are grossly intact. Results - Labs 10/16/21 07:25 10/16/21 08:27 Abnormal Lab Results - Last 24 Hours (Table) 10/16/21 10/16/21 10/16/21 Range/Units 07:25 07:25 07:25 WBC 31.4 H (3.8-10.6) k/uL MCV 106.1 H (80.0-100.0) fL MCHC 30.2 L (31.0-37.0) g/dL RDW 17.3 H (11.5-15.5) % Neutrophils # (Manual) 29.20 H (1.3-7.7) k/uL Lymphocytes # (Manual) 0.94 L (1.0-4.8) k/uL Monocytes # (Manual) 1.26 H (0-1.0) k/uL Basophils # (Manual) 0.31 H (0-0.2) k/uL Macrocytosis Marked A PT 18.4 H (9.0-12.0) sec INR 1.8 H (<1.2) Potassium 6.2 H* (3.5-5.1) mmol/L Carbon Dioxide 12 L (22-30) mmol/L BUN 41 H (9-20) mg/dL Creatinine 2.81 H (0.66-1.25) mg/dL Glucose 121 H (74-99) mg/dL Plasma Lactic Acid Dwain (0.7-2.0) mmol/L Total Bilirubin 3.4 H (0.2-1.3) mg/dL AST 494 H (17-59) U/L ALT 240 H (4-49) U/L Troponin I (0.000-0.034) ng/mL 10/16/21 10/16/21 10/16/21 Range/Units 07:25 07:25 08:27 WBC (3.8-10.6) k/uL MCV (80.0-100.0) fL MCHC (31.0-37.0) g/dL RDW (11.5-15.5) % Neutrophils # (Manual) (1.3-7.7) k/uL Lymphocytes # (Manual) (1.0-4.8) k/uL Monocytes # (Manual) (0-1.0) k/uL Basophils # (Manual) (0-0.2) k/uL Macrocytosis PT (9.0-12.0) sec INR (<1.2) Potassium 6.0 H (3.5-5.1) mmol/L Carbon Dioxide (22-30) mmol/L BUN (9-20) mg/dL Creatinine (0.66-1.25) mg/dL Glucose (74-99) mg/dL Plasma Lactic Acid Dwain 11.6 H* (0.7-2.0) mmol/L Total Bilirubin (0.2-1.3) mg/dL AST (17-59) U/L ALT (4-49) U/L Troponin I 0.640 H* (0.000-0.034) ng/mL Diabetes panel 10/16/21 10/16/21 Range/Units 07:25 08:27 Sodium 139 (137-145) mmol/L Potassium 6.2 H* 6.0 H (3.5-5.1) mmol/L Chloride 103 (98-107) mmol/L Carbon Dioxide 12 L (22-30) mmol/L BUN 41 H (9-20) mg/dL Creatinine 2.81 H (0.66-1.25) mg/dL Glucose 121 H (74-99) mg/dL Calcium 8.9 (8.4-10.2) mg/dL AST 494 H (17-59) U/L ALT 240 H (4-49) U/L Alkaline Phosphatase 78 (38-126) U/L Total Protein 7.4 (6.3-8.2) g/dL Albumin 4.3 (3.5-5.0) g/dL Calcium panel 10/16/21 Range/Units 07:25 Calcium 8.9 (8.4-10.2) mg/dL Albumin 4.3 (3.5-5.0) g/dL Pituitary panel 10/16/21 10/16/21 Range/Units 07:25 08:27 Sodium 139 (137-145) mmol/L Potassium 6.2 H* 6.0 H (3.5-5.1) mmol/L Chloride 103 (98-107) mmol/L Carbon Dioxide 12 L (22-30) mmol/L BUN 41 H (9-20) mg/dL Creatinine 2.81 H (0.66-1.25) mg/dL Glucose 121 H (74-99) mg/dL Calcium 8.9 (8.4-10.2) mg/dL Adrenal panel 10/16/21 10/16/21 Range/Units 07:25 08:27 Sodium 139 (137-145) mmol/L Potassium 6.2 H* 6.0 H (3.5-5.1) mmol/L Chloride 103 (98-107) mmol/L Carbon Dioxide 12 L (22-30) mmol/L BUN 41 H (9-20) mg/dL Creatinine 2.81 H (0.66-1.25) mg/dL Glucose 121 H (74-99) mg/dL Calcium 8.9 (8.4-10.2) mg/dL Total Bilirubin 3.4 H (0.2-1.3) mg/dL AST 494 H (17-59) U/L ALT 240 H (4-49) U/L Alkaline Phosphatase 78 (38-126) U/L Total Protein 7.4 (6.3-8.2) g/dL Albumin 4.3 (3.5-5.0) g/dL - Imaging Comments: Left lower extremity venous duplex shows findings consistent with deep venous thrombus involving the left common femoral vein, superficial femoral vein US - abdomen: report reviewed Assessment and Plan Assessment: 1. Left lower extremity DVT 2. Positive lactic acid 3. Hypotension 4. Elevated troponin 4. Shortness of breath 6. Acute kidney injury 7. Elevated LFTs, cholelithiasis 8. Leukocytosis 9. History of coronary artery disease status post [place], cardiac stents 10. Diabetes mellitus 11. Previous left toe amputation for diabetic wound/infection Plan: 1. Continue heparin drip 2. Arterial duplex, bilateral lower extremities ordered 3. Recommend echocardiogram 4. VQ scan is ordered, awaiting results 5. Daily labs 6. Thigh-high KAYDEN hose bilateral lower extremity Venous duplex and arterial duplex study reviewed personally by Dr. Mike. There is no indication for any surgical intervention. Do not believe hypotension, elevated lactic acid and leukocytosis related to lower extremity DVT. Continue heparin for now and eventually transition to oral anticoagulation The impression and plan of care has been dictated as directed. Dr. Mike I performed a history and examination of this patient, discussed the same with the dictator. I agree with the dictator's note ,documented as a scribe. Any additional findings or plans will be noted.
[2021-10-16] MEDS: ASPIRIN 81 MG PO SCH (12:32)
[2021-10-16] MEDS: FLUoxetine HCL 20 MG CAP PO SCH (12:32)
--- NOTE | 2021-10-16 14:19 | P.GSCN ---
History of Present Illness Consult date: 10/16/21 Reason for Consult: Cholelithiasis History of present illness: This is a 66-year-old male who was admitted to the hospital. Patient's workup f ound have evidence of DVT. Patient states yesterday he threw up several times had some mild abdominal pain. His ultrasound the abdomen shows evidence of cholelithiasis. Patient denies any abdominal pain currently. Past Medical History Past Medical History: Coronary Artery Disease (CAD), Cancer, Diabetes Mellitus, Hyperlipidemia, Hypertension, Myocardial Infarction ([place]) Additional Past Medical History / Comment(s): skin cancer on nose August 2020 Last Myocardial Infarction Date:: 02/12/2019 History of Any Multi-Drug Resistant Organisms: None Reported Past Surgical History: Heart Catheterization, Heart Catheterization With Stent, Orthopedic Surgery Additional Past Surgical History / Comment(s): skin cancer removed from nose A 2020 Past Anesthesia/Blood Transfusion Reactions: No Reported Reaction Date of Last Stent Placement:: 2012 Past Psychological History: Anxiety Smoking Status: Never smoker Past Alcohol Use History: Occasional Past Drug Use History: None Reported - Past Family History Mother Family Medical History: Coronary Artery Disease (CAD), Diabetes Mellitus, Myocardial Infarction ([place]) Father Family Medical History: Diabetes Mellitus, Renal Disease family Additional Family Medical History / Comment(s): Mother with history of diabetes mellitus and CAD, father with history of heart disease and diabetes Medications and Allergies Home Medications Medication Instructions Recorded Confirmed Type Nitroglycerin Sl Tabs [Nitrostat] 0.4 mg SUBLINGUAL Q5M PRN 10/20/17 10/16/21 History Acetaminophen Tab [Tylenol] 325 mg PO Q6H PRN 08/22/21 10/16/21 History FLUoxetine HCL [PROzac] 20 mg PO DAILY 08/22/21 10/16/21 History Simvastatin [Zocor] 10 mg PO HS 08/22/21 10/16/21 History amLODIPine [Norvasc] 5 mg PO DAILY 08/22/21 10/16/21 History ALPRAZolam [Xanax] 0.25 mg PO BID 10/16/21 10/16/21 History Aspirin 81 mg PO DAILY 10/16/21 10/16/21 History Furosemide [Lasix] 40 mg PO DAILY 10/16/21 10/16/21 History Insulin NPH Human Isophane 20 units SQ BID PRN 10/16/21 10/16/21 History [Novolin N] Spironolactone 50 mg PO DAILY 10/16/21 10/16/21 History Allergies Allergy/AdvReac Type Severity Reaction Status Date / Time ciprofloxacin [From Cipro] Allergy Rash/Hives Verified 10/16/21 10:28 Surgical - Exam Vital Signs Temp Pulse Resp BP Pulse Ox 98.4 F 60 19 87/59 95 10/16/21 07:04 10/16/21 07:04 10/16/21 07:04 10/16/21 07:04 10/16/21 07:04 - General well developed, no distress - Eyes PERRL - ENT normal pinna, normal nares - Neck no masses - Respiratory normal expansion - Cardiovascular Rhythm: regular - Abdomen No right upper quadrant pain. Abdomen: soft, non tender Results - Labs 10/16/21 07:25 10/16/21 08:27 Abnormal Lab Results - Last 24 Hours (Table) 10/16/21 10/16/21 10/16/21 Range/Units 07:25 07:25 07:25 WBC 31.4 H (3.8-10.6) k/uL MCV 106.1 H (80.0-100.0) fL MCHC 30.2 L (31.0-37.0) g/dL RDW 17.3 H (11.5-15.5) % Neutrophils # (Manual) 29.20 H (1.3-7.7) k/uL Lymphocytes # (Manual) 0.94 L (1.0-4.8) k/uL Monocytes # (Manual) 1.26 H (0-1.0) k/uL Basophils # (Manual) 0.31 H (0-0.2) k/uL Macrocytosis Marked A PT 18.4 H (9.0-12.0) sec INR 1.8 H (<1.2) Potassium 6.2 H* (3.5-5.1) mmol/L Carbon Dioxide 12 L (22-30) mmol/L BUN 41 H (9-20) mg/dL Creatinine 2.81 H (0.66-1.25) mg/dL Glucose 121 H (74-99) mg/dL Plasma Lactic Acid Dwain (0.7-2.0) mmol/L Total Bilirubin 3.4 H (0.2-1.3) mg/dL AST 494 H (17-59) U/L ALT 240 H (4-49) U/L Troponin I (0.000-0.034) ng/mL 10/16/21 10/16/21 10/16/21 Range/Units 07:25 07:25 08:27 WBC (3.8-10.6) k/uL MCV (80.0-100.0) fL MCHC (31.0-37.0) g/dL RDW (11.5-15.5) % Neutrophils # (Manual) (1.3-7.7) k/uL Lymphocytes # (Manual) (1.0-4.8) k/uL Monocytes # (Manual) (0-1.0) k/uL Basophils # (Manual) (0-0.2) k/uL Macrocytosis PT (9.0-12.0) sec INR (<1.2) Potassium 6.0 H (3.5-5.1) mmol/L Carbon Dioxide (22-30) mmol/L BUN (9-20) mg/dL Creatinine (0.66-1.25) mg/dL Glucose (74-99) mg/dL Plasma Lactic Acid Dwain 11.6 H* (0.7-2.0) mmol/L Total Bilirubin (0.2-1.3) mg/dL AST (17-59) U/L ALT (4-49) U/L Troponin I 0.640 H* (0.000-0.034) ng/mL 10/16/21 Range/Units 12:02 WBC (3.8-10.6) k/uL MCV (80.0-100.0) fL MCHC (31.0-37.0) g/dL RDW (11.5-15.5) % Neutrophils # (Manual) (1.3-7.7) k/uL Lymphocytes # (Manual) (1.0-4.8) k/uL Monocytes # (Manual) (0-1.0) k/uL Basophils # (Manual) (0-0.2) k/uL Macrocytosis PT (9.0-12.0) sec INR (<1.2) Potassium (3.5-5.1) mmol/L Carbon Dioxide (22-30) mmol/L BUN (9-20) mg/dL Creatinine (0.66-1.25) mg/dL Glucose (74-99) mg/dL Plasma Lactic Acid Dwain 7.5 H* (0.7-2.0) mmol/L Total Bilirubin (0.2-1.3) mg/dL AST (17-59) U/L ALT (4-49) U/L Troponin I (0.000-0.034) ng/mL Diabetes panel 10/16/21 10/16/21 Range/Units 07:25 08:27 Sodium 139 (137-145) mmol/L Potassium 6.2 H* 6.0 H (3.5-5.1) mmol/L Chloride 103 (98-107) mmol/L Carbon Dioxide 12 L (22-30) mmol/L BUN 41 H (9-20) mg/dL Creatinine 2.81 H (0.66-1.25) mg/dL Glucose 121 H (74-99) mg/dL Calcium 8.9 (8.4-10.2) mg/dL AST 494 H (17-59) U/L ALT 240 H (4-49) U/L Alkaline Phosphatase 78 (38-126) U/L Total Protein 7.4 (6.3-8.2) g/dL Albumin 4.3 (3.5-5.0) g/dL Calcium panel 10/16/21 Range/Units 07:25 Calcium 8.9 (8.4-10.2) mg/dL Albumin 4.3 (3.5-5.0) g/dL Pituitary panel 10/16/21 10/16/21 Range/Units 07:25 08:27 Sodium 139 (137-145) mmol/L Potassium 6.2 H* 6.0 H (3.5-5.1) mmol/L Chloride 103 (98-107) mmol/L Carbon Dioxide 12 L (22-30) mmol/L BUN 41 H (9-20) mg/dL Creatinine 2.81 H (0.66-1.25) mg/dL Glucose 121 H (74-99) mg/dL Calcium 8.9 (8.4-10.2) mg/dL Adrenal panel 10/16/21 10/16/21 Range/Units 07:25 08:27 Sodium 139 (137-145) mmol/L Potassium 6.2 H* 6.0 H (3.5-5.1) mmol/L Chloride 103 (98-107) mmol/L Carbon Dioxide 12 L (22-30) mmol/L BUN 41 H (9-20) mg/dL Creatinine 2.81 H (0.66-1.25) mg/dL Glucose 121 H (74-99) mg/dL Calcium 8.9 (8.4-10.2) mg/dL Total Bilirubin 3.4 H (0.2-1.3) mg/dL AST 494 H (17-59) U/L ALT 240 H (4-49) U/L Alkaline Phosphatase 78 (38-126) U/L Total Protein 7.4 (6.3-8.2) g/dL Albumin 4.3 (3.5-5.0) g/dL Assessment and Plan Assessment: Quadrant pain Cholelithiasis. Patient has no significant tenderness. He will be observed. We'll watch him closely.
[2021-10-16] MEDS ORDERED: DEXTROSE 5% IN WATER 1,000 ML with SODIUM BICARB (1 MEQ/ML) 50 ML IV SCH (16:00)
--- NOTE | 2021-10-16 16:23 | P.HPIM ---
History of Present Illness H&P Date: 10/16/21 Chief Complaint: Left leg pain This is a pleasant 66-year-old patient, follows with Dr. Mike Escobar. Chronic stable medical conditions include CAD with stent, diabetes, hypertension, hyperlipidemia anxiety. Yesterday patient was walking about in [facility] when he started feeling unwell. Decided to leave the store and came to the parking lot. Sat down there. Decided to drive home. Patient has several bouts of nausea and vomiting. [place] of the ER. He was then discharged last night. Denied any fever and chills. Had some abdominal pain. Settle down. He did gets IV fluids at the other hospital. Patient very early this morning started having pain from mid thigh down the leg. Rather significant. No injury. Patient had some sweating for some time. In the ER was found to have a common femoral relevant DVT. Also had arterial Doppler done which was reviewed by Dr. Mike found to be normal. No arterial compromise. Denies any nausea vomiting abdominal pain today. Patient noted to have increased LFTs compared to the was done at [facility]. 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 Nonsmoker. Alcohol rarely. Family history: Diabetes, CAD Physical examination: VITAL SIGNS: 98.4, 60, 19, 87/59, 95% room air GENERAL: BMI 28.7, sitting of that she bed, comfortable. EYES: Pupils equal. Conjunctiva normal. HEENT: External appearance of nose and ears normal, oral cavity grossly normal. NECK: JVD not raised; masses not palpable. HEART: First and second heart sounds are normal; some edema. LUNGS: Respiratory rate normal; clear to auscultation, . ABDOMEN: Soft, nontender, liver spleen not palpable, no masses palpable. PSYCH: [Alert and oriented x3; mood and affect slightly anxious l. MUSCULOSKELETAL:No Clubbing/cyanosis;muscles-grossly intact EXTREMITIES: Shiny skin lower extremity. Evidence of necrobiosis lipoidica. Generalized tenderness left lower extremity lower half. Evidence of ischemic and fungal lesions. NEUROLOGICAL: Cranial nerves grossly intact; no facial asymmetry, power and hyper sensation lower extremity grossly intact. LYMPHATICS: No lymph nodes palpable in the axilla and neck INVESTIGATIONS, reviewed in the clinical context: White count 31.4 hemoglobin 15.4 platelets 267 sodium 139 potassium 6.2 bicarbonate 12 BUN 41 creatinine 2.81 lactic acid 11.6 AST 494 ALT 240 troponin I 0.640 EKG tracing personally reviewed by me-intraventricular block. Sinus rhythm. First-degree AV block. Left lower extremity venous Doppler: DVT in the common femoral vein. Chest x-ray film personally reviewed by me-cardiomegaly. Lungs clear Gallbladder ultrasound: Gallbladder filled with stones. Possible hepatic steatosis. Arterial Doppler results discussed with Dr. Mike: No evidence of vascular compromise Assessment and plan: -Acute DVT of the left common femoral vein, likely precipitated by patient being sick yesterday from acute gastroenteritis and decreased activity. IV heparin monitoring. KAYDEN stockings. Start xarelto tomorrow -Choledocholithiasis. Asymptomatic. -Episode of acute food poisoning yesterday. Self-limited. -Acute hepatitis. LFTs are gone up from yesterday. Likely ischemic. Repeat tomorrow. -CAD with a history of stent Aspirin 81 mg daily -Diabetes mellitus type 2, chronically on insulin Follow Accu-Cheks and sliding scale insulin. Hold home insulin for now. -Hyperlipidemia Given the elevated LFTs hold Zocor. -Essential hypertension Currently blood pressure is running low likely because of dehydration from nausea vomiting yesterday. Hold off Norvasc -Lower extremity edema possibly from Norvasc KAYDEN stockings, bilateral -Acute kidney injury, prerenal from nausea vomiting Patient's creatinine was 1.7 on August 25. 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 Creatinine 1.7 in August 2021 -Hyperkalemia from metabolic acidosis Renal diet. Lokelma. Sodium bicarbonate drip. -Anxiety not otherwise specified Xanax 0.25 mg by mouth twice a day Discussed with Dr. Mike from vascular. No vascular compromise with normal arterial Doppler. IV heparin. Start xarelto tomorrow. Resume home medications. Hold insulin. Sliding scale. Sodium bicarbonate in a drip at 50 mL an hour. Lokelma. 2-D echo. Past Medical History Past Medical History: Coronary Artery Disease (CAD), Cancer, Diabetes Mellitus, Hyperlipidemia, Hypertension, Myocardial Infarction ([place]) Additional Past Medical History / Comment(s): skin cancer on nose August 2020 Last Myocardial Infarction Date:: 02/12/2019 History of Any Multi-Drug Resistant Organisms: None Reported Past Surgical History: Heart Catheterization, Heart Catheterization With Stent, Orthopedic Surgery Additional Past Surgical History / Comment(s): skin cancer removed from nose August 2020 Past Anesthesia/Blood Transfusion Reactions: No Reported Reaction Date of Last Stent Placement:: 2012 Past Psychological History: Anxiety Smoking Status: Never smoker Past Alcohol Use History: Occasional Past Drug Use History: None Reported - Past Family History Mother Family Medical History: Coronary Artery Disease (CAD), Diabetes Mellitus, Myocardial Infarction ([place]) Father Family Medical History: Diabetes Mellitus, Renal Disease family Additional Family Medical History / Comment(s): Mother with history of diabetes mellitus and CAD, father with history of heart disease and diabetes Medications and Allergies Home Medications Medication Instructions Recorded Confirmed Type Nitroglycerin Sl Tabs [Nitrostat] 0.4 mg SUBLINGUAL Q5M PRN 10/20/17 10/16/21 History Acetaminophen Tab [Tylenol] 325 mg PO Q6H PRN 08/22/21 10/16/21 History FLUoxetine HCL [PROzac] 20 mg PO DAILY 08/22/21 10/16/21 History Simvastatin [Zocor] 10 mg PO HS 08/22/21 10/16/21 History amLODIPine [Norvasc] 5 mg PO DAILY 08/22/21 10/16/21 History ALPRAZolam [Xanax] 0.25 mg PO BID 10/16/21 10/16/21 History Aspirin 81 mg PO DAILY 10/16/21 10/16/21 History Furosemide [Lasix] 40 mg PO DAILY 10/16/21 10/16/21 History Insulin NPH Human Isophane 20 units SQ BID PRN 10/16/21 10/16/21 History [Novolin N] Spironolactone 50 mg PO DAILY 10/16/21 10/16/21 History Allergies Allergy/AdvReac Type Severity Reaction Status Date / Time ciprofloxacin [From Cipro] Allergy Rash/Hives Verified 10/16/21 10:28 Physical Exam Vitals: Vital Signs Temp Pulse Resp BP Pulse Ox 10/16/21 12:32 65 18 100/73 96 10/16/21 11:15 61 18 98/63 97 10/16/21 09:00 57 L 18 104/74 97 10/16/21 08:23 53 L 18 89/76 95 10/16/21 07:32 56 L 18 99/65 96 10/16/21 07:04 98.4 F 60 19 87/59 95 Intake and Output 10/16/21 10/16/21 10/16/21 06:59 14:59 22:59 Other: Weight 90.718 kg Results CBC & Chem 7: 10/16/21 07:25 10/16/21 08:27 Labs: Abnormal Lab Results - Last 24 Hours (Table) 10/16/21 10/16/21 10/16/21 Range/Units 07:25 07:25 07:25 WBC 31.4 H (3.8-10.6) k/uL MCV 106.1 H (80.0-100.0) fL MCHC 30.2 L (31.0-37.0) g/dL RDW 17.3 H (11.5-15.5) % Neutrophils # (Manual) 29.20 H (1.3-7.7) k/uL Lymphocytes # (Manual) 0.94 L (1.0-4.8) k/uL Monocytes # (Manual) 1.26 H (0-1.0) k/uL Basophils # (Manual) 0.31 H (0-0.2) k/uL Macrocytosis Marked A PT 18.4 H (9.0-12.0) sec INR 1.8 H (<1.2) Potassium 6.2 H* (3.5-5.1) mmol/L Carbon Dioxide 12 L (22-30) mmol/L BUN 41 H (9-20) mg/dL Creatinine 2.81 H (0.66-1.25) mg/dL Glucose 121 H (74-99) mg/dL Plasma Lactic Acid Dwain (0.7-2.0) mmol/L Total Bilirubin 3.4 H (0.2-1.3) mg/dL AST 494 H (17-59) U/L ALT 240 H (4-49) U/L Troponin I (0.000-0.034) ng/mL 10/16/21 10/16/21 10/16/21 Range/Units 07:25 07:25 08:27 WBC (3.8-10.6) k/uL MCV (80.0-100.0) fL MCHC (31.0-37.0) g/dL RDW (11.5-15.5) % Neutrophils # (Manual) (1.3-7.7) k/uL Lymphocytes # (Manual) (1.0-4.8) k/uL Monocytes # (Manual) (0-1.0) k/uL Basophils # (Manual) (0-0.2) k/uL Macrocytosis PT (9.0-12.0) sec INR (<1.2) Potassium 6.0 H (3.5-5.1) mmol/L Carbon Dioxide (22-30) mmol/L BUN (9-20) mg/dL Creatinine (0.66-1.25) mg/dL Glucose (74-99) mg/dL Plasma Lactic Acid Dwain 11.6 H* (0.7-2.0) mmol/L Total Bilirubin (0.2-1.3) mg/dL AST (17-59) U/L ALT (4-49) U/L Troponin I 0.640 H* (0.000-0.034) ng/mL 10/16/21 Range/Units 12:02 WBC (3.8-10.6) k/uL MCV (80.0-100.0) fL MCHC (31.0-37.0) g/dL RDW (11.5-15.5) % Neutrophils # (Manual) (1.3-7.7) k/uL Lymphocytes # (Manual) (1.0-4.8) k/uL Monocytes # (Manual) (0-1.0) k/uL Basophils # (Manual) (0-0.2) k/uL Macrocytosis PT (9.0-12.0) sec INR (<1.2) Potassium (3.5-5.1) mmol/L Carbon Dioxide (22-30) mmol/L BUN (9-20) mg/dL Creatinine (0.66-1.25) mg/dL Glucose (74-99) mg/dL Plasma Lactic Acid Dawin 7.5 H* (0.7-2.0) mmol/L Total Bilirubin (0.2-1.3) mg/dL AST (17-59) U/L ALT (4-49) U/L Troponin I (0.000-0.034) ng/mL
[2021-10-16] MEDS ORDERED: SODIUM ZIRCONIUM CYCLOSILICATE 10 GM PACKET PO SCH (16:30)
--- NOTE | 2021-10-16 17:08 | NM ---
EXAMINATION TYPE: NM pul vent and perfuse DATE OF EXAM: 10/16/2021 COMPARISON: Chest radiograph 10/16/2021 HISTORY: Chest pain TECHNIQUE: Utilizing inhalation of 37.1 mCi Tc 99m DTPA aerosol and intravenous injection of 4.3 mCi of Tc 99m MAA, ventilation and perfusion images are acquired post injection in multiple projections. FINDINGS: Normal radiotracer distribution is noted in the lungs. There is questionable single segment of mismat ch within the middle lobe anteriorly. No additional mismatches identified. IMPRESSION: Nondiagnostic by modified PIOPED 2 criteria for pulmonary embolus with single area of subtle mismatch within the right middle lobe.
--- NOTE | 2021-10-16 17:18 | P.CONS ---
History of Present Illness - Reason for Consult Consult date: 10/17/21 Choledocholithiasis Requesting physician: Celoi Monte - Chief Complaint Left lower extremity pain - History of Present Illness This is a 66-year-old male with a past medical history including coronary artery disease status post cardiac stent, 5 MIs, diabetes mellitus, hyperlipidemia, hypertension, skin cancer and previous left fourth toe amputation. The patient presented to the emergency department with complaints of left lower extremity pain that started 2 days ago. Patient had a venous duplex that showed extensive left lower extremity DVT involving the left common femoral vein and superficial femoral vein. Vascular surgery was consulted for the above. He denies any previous history of DVT or pulmonary embolism. Denies any history of clotting disorder. 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 He is on a low-dose daily aspirin, denies any anticoagulation or antiplatelet therapy. States he does have some shortness of breath that was noted after he started fluids here. Patient denies any abdominal pain, states 2 days ago he did have some nausea and vomiting along with abdominal pain. Denies chest pain but states he does have some shortness of breath. He denies any previous liver disease. Denies any history of alcoholism, or fatty liver disease. He currently denies any abdominal pain, nausea, or vomiting. Denies fevers or chills, shortness of breath or chest pain. Admitting labs WBC 31.4 hemoglobin 15.4 hematocrit 51 platelet count 267,000 INR 1.8 sodium 139 potassium 6.2 BUN 41 creatinine 2.8 glucose 121 plasma lactic acid 11.6 magnesium 2.1 total bilirubin 3.4 AST 494 AST 240 alkaline phosphatase 78 troponin 0.640 BNP 57,000. Repeat labs today WBC 20.1 hemoglobin 14.4 hematocrit 46 platelet count 154,000 INR 2.4 sodium 132 potassium 5.7 BUN 57 creatinine 3.47 lactic acid 3.0 total bilirubin 2.7 AST 4309 ALT 2181 alkaline phosphatase 57 Gallbladder ultrasound: Gallbladder filled with stones, cholelithiasis correlate for cholecystitis. CBD within normal limits measuring 0.38 cm. Liver is somewhat coarse echotexture, name have underlying hepatocellular disease, hepatic steatosis Review of Systems REVIEW OF SYSTEMS: CARDIOPULMONARY: No chest pain or shortness of breath. Gastrointestinal: No abdominal pain. No nausea or vomiting. No hematemesis, coffee-ground emesis. No rectal bleeding, or melena. GENITOURINARY: No dysuria or hematuria. MUSCULOSKELETAL: Reports normal range of motion. Left lower extremity pain and swelling. SKIN: No rashes. No jaundice. ENDOCRINE: No chills, fevers. No excessive weight gain or loss. No polydipsia or polyuria. PSYCHIATRIC: Unremarkable. NEUROLOGY: No change in mental status. Denies dizziness, headache. ENT: Vision unremarkable. CONSTITUTIONAL: No recent weight loss. No fever, chills, night sweats. Past Medical History Past Medical History: Coronary Artery Disease (CAD), Cancer, Diabetes Mellitus, Hyperlipidemia, Hypertension, Myocardial Infarction (NH) Additional Past Medical History / Comment(s): skin cancer on nose August 2020 Last Myocardial Infarction Date:: 02/12/2019 History of Any Multi-Drug Resistant Organisms: None Reported Past Surgical History: Heart Catheterization, Heart Catheterization With Stent, Orthopedic Surgery Additional Past Surgical History / Comment(s): skin cancer removed from nose August 2020 Past Anesthesia/Blood Transfusion Reactions: No Reported Reaction Date of Last Stent Placement:: 2012 Past Psychological History: Anxiety Smoking Status: Never smoker Past Alcohol Use History: Occasional Past Drug Use History: None Reported - Past Family History Mother Family Medical History: Coronary Artery Disease (CAD), Diabetes Mellitus, Myocardial Infarction (NH) Father Family Medical History: Diabetes Mellitus, Renal Disease family Additional Family Medical History / Comment(s): Mother with history of diabetes mellitus and CAD, father with history of heart disease and diabetes Medications and Allergies Home Medications Medication Instructions Recorded Confirmed Type Nitroglycerin Sl Tabs [Nitrostat] 0.4 mg SUBLINGUAL Q5M PRN 10/20/17 10/16/21 History Acetaminophen Tab [Tylenol] 325 mg PO Q6H PRN 08/22/21 10/16/21 History FLUoxetine HCL [PROzac] 20 mg PO DAILY 08/22/21 10/16/21 History Simvastatin [Zocor] 10 mg PO HS 08/22/21 10/16/21 History amLODIPine [Norvasc] 5 mg PO DAILY 08/22/21 10/16/21 History ALPRAZolam [Xanax] 0.25 mg PO BID 10/16/21 10/16/21 History Aspirin 81 mg PO DAILY 10/16/21 10/16/21 History Furosemide [Lasix] 40 mg PO DAILY 10/16/21 10/16/21 History Insulin NPH Human Isophane 20 units SQ BID PRN 10/16/21 10/16/21 History [Novolin N] Spironolactone 50 mg PO DAILY 10/16/21 10/16/21 History Allergies Allergy/AdvReac Type Severity Reaction Status Date / Time ciprofloxacin [From Cipro] Allergy Rash/Hives Verified 10/16/21 10:28 Physical Exam Vitals: Vital Signs Temp Pulse Resp BP Pulse Ox 10/16/21 16:51 66 18 100/69 98 10/16/21 12:32 65 18 100/73 96 10/16/21 11:15 61 18 98/63 97 10/16/21 09:00 57 L 18 104/74 97 10/16/21 08:23 53 L 18 89/76 95 10/16/21 07:32 56 L 18 99/65 96 10/16/21 07:04 98.4 F 60 19 87/59 95 Intake and Output 10/16/21 10/16/21 10/16/21 06:59 14:59 22:59 Other: Weight 90.718 kg General appearance: The patient is alert, oriented, appears in no acute distress. HET: Head is normocephalic and atraumatic. Conjunctiva pink. Sclera anicteric. Neck: Supple without lymphadenopathy. Trachea midline. Heart: S1 S2. Regular rate and rhythm. Lungs: Clear to auscultation. Abdomen: Soft, nontender, obese, nondistended with bowel sounds. No guarding or rigidity. Skin: No rashes. No jaundice. Extremities: Normal skin color and turgor. No pedal edema. Neurological: No focal deficits. Alert and oriented x3. Results CBC & Chem 7: 10/17/21 04:00 10/17/21 10:45 Labs: Abnormal Lab Results - Last 24 Hours (Table) 10/16/21 10/16/21 10/16/21 Range/Units 07:25 07:25 07:25 WBC 31.4 H (3.8-10.6) k/uL MCV 106.1 H (80.0-100.0) fL MCHC 30.2 L (31.0-37.0) g/dL RDW 17.3 H (11.5-15.5) % Neutrophils # (Manual) 29.20 H (1.3-7.7) k/uL Lymphocytes # (Manual) 0.94 L (1.0-4.8) k/uL Monocytes # (Manual) 1.26 H (0-1.0) k/uL Basophils # (Manual) 0.31 H (0-0.2) k/uL Macrocytosis Marked A PT 18.4 H (9.0-12.0) sec INR 1.8 H (<1.2) Potassium 6.2 H* (3.5-5.1) mmol/L Carbon Dioxide 12 L (22-30) mmol/L BUN 41 H (9-20) mg/dL Creatinine 2.81 H (0.66-1.25) mg/dL Glucose 121 H (74-99) mg/dL Plasma Lactic Acid Dwain (0.7-2.0) mmol/L Total Bilirubin 3.4 H (0.2-1.3) mg/dL AST 494 H (17-59) U/L ALT 240 H (4-49) U/L Troponin I (0.000-0.034) ng/mL 10/16/21 10/16/21 10/16/21 Range/Units 07:25 07:25 08:27 WBC (3.8-10.6) k/uL MCV (80.0-100.0) fL MCHC (31.0-37.0) g/dL RDW (11.5-15.5) % Neutrophils # (Manual) (1.3-7.7) k/uL Lymphocytes # (Manual) (1.0-4.8) k/uL Monocytes # (Manual) (0-1.0) k/uL Basophils # (Manual) (0-0.2) k/uL Macrocytosis PT (9.0-12.0) sec INR (<1.2) Potassium 6.0 H (3.5-5.1) mmol/L Carbon Dioxide (22-30) mmol/L BUN (9-20) mg/dL Creatinine (0.66-1.25) mg/dL Glucose (74-99) mg/dL Plasma Lactic Acid Dwain 11.6 H* (0.7-2.0) mmol/L Total Bilirubin (0.2-1.3) mg/dL AST (17-59) U/L ALT (4-49) U/L Troponin I 0.640 H* (0.000-0.034) ng/mL 10/16/21 Range/Units 12:02 WBC (3.8-10.6) k/uL MCV (80.0-100.0) fL MCHC (31.0-37.0) g/dL RDW (11.5-15.5) % Neutrophils # (Manual) (1.3-7.7) k/uL Lymphocytes # (Manual) (1.0-4.8) k/uL Monocytes # (Manual) (0-1.0) k/uL Basophils # (Manual) (0-0.2) k/uL Macrocytosis PT (9.0-12.0) sec INR (<1.2) Potassium (3.5-5.1) mmol/L Carbon Dioxide (22-30) mmol/L BUN (9-20) mg/dL Creatinine (0.66-1.25) mg/dL Glucose (74-99) mg/dL Plasma Lactic Acid Dwain 7.5 H* (0.7-2.0) mmol/L Total Bilirubin (0.2-1.3) mg/dL AST (17-59) U/L ALT (4-49) U/L Troponin I (0.000-0.034) ng/mL Comments: Gallbladder ultrasound: Gallbladder filled with stones, cholelithiasis correlate for cholecystitis. CBD within normal limits measuring 0.38 cm. Liver is somewhat coarse echotexture, name have underlying hepatocellular disease, hepatic steatosis Venous duplex left lower extremity. Findings consistent with deep venous thrombosis involving the left common femoral vein, superficial femoral vein. Assessment and Plan (1) Cholelithiasis Narrative/Plan: 66-year-old male who presented to the emergency department with complaints of left lower extremity pain. He has multiple comorbidities including history of coronary artery disease status post stenting and 5 MIs. He came in with elevated lactic acid, elevated troponins, white count, and elevation in his total bilirubin, LFTs. Gallbladder ultrasound was obtained showing multiple gallstones without any CBD dilation. Also stating possible underlying hepatocellular disease due to echotexture of liver. Patient denies any current abdominal pain. He did state that he did have some abdominal discomfort yesterday with some nausea and vomiting. He is more concerned with some shortness of breath and left lower extremity pain for which he was diagnosed with a DVT. Due to elevated total bilirubin and LFTs gastroenterology was asked to evaluate patient for possible choledocholithiasis. Patient no longer is experiencing pain however may have passed the stone. We'll await repeat labs and MRCP. Patient currently on a heparin drip. No plans at this time for ERCP underlying elevated LFTs likely related to acute ischemic hepatitis from sepsis and hypotension. Current Visit: Yes Status: Acute Code(s): K80.20 - CALCULUS OF GALLBLADDER W/O CHOLECYSTITIS W/O OBSTRUCTION SNOMED Code(s): 111736121 (2) Elevated LFTs Narrative/Plan: Acute elevation and AST ALT. Patient with possible underlying hepatocellular disease related to fatty liver. Acute rise in LFTs likely related to acute ischemic hepatitis related to sepsis and hypotension. No plans at this time to proceed with ERCP. Avoid hepatotoxic medications. We will continue to monitor. MRCP ordered Current Visit: Yes Status: Acute Code(s): R79.89 - OTHER SPECIFIED ABNORMAL FINDINGS OF BLOOD CHEMISTRY SNOMED Code(s): 580394243 (3) Type 2 diabetes mellitus Current Visit: Yes Status: Acute Code(s): E11.9 - TYPE 2 DIABETES MELLITUS WITHOUT COMPLICATIONS SNOMED Code(s): 31839676 (4) Coronary artery disease Current Visit: Yes Status: Acute Code(s): I25.10 - ATHSCL HEART DISEASE OF [place] CORONARY ARTERY W/O ANG PCTRS SNOMED Code(s): 72998206 (5) DVT, lower extremity Current Visit: Yes Status: Acute Code(s): I82.409 - ACUTE EMBOLISM AND THOMBOS UNSP DEEP VN UNSP LOWER EXTREMITY SNOMED Code(s): 936611409 (6) Elevated troponin Current Visit: Yes Status: Acute Code(s): R74.8 - ABNORMAL LEVELS OF OTHER SERUM ENZYMES SNOMED Code(s): 193298899 (7) Lactic acidosis Current Visit: Yes Status: Acute Code(s): E87.2 - ACIDOSIS SNOMED Code(s): 60073670 (8) Hypotension Current Visit: Yes Status: Acute Code(s): I95.9 - HYPOTENSION, UNSPECIFIED SNOMED Code(s): 33006041 (9) Leukocytosis Current Visit: Yes Status: Acute Code(s): D72.829 - ELEVATED WHITE BLOOD CELL COUNT, UNSPECIFIED SNOMED Code(s): 991820061 Plan: 1. Continue symptomatic and supportive care 2. Patient may have clear liquid diet 3. Repeat CBC, CMP, INR daily 4. Cardiology consulted for cardiac clearance for possible ERCP if needed however elevated LFTs likely related to underlying acute ischemic hepatitis 5. MRCP ordered 6. No plans at this time for ERCP 7. Appreciate general surgery recommendations 8. Avoid hepatotoxic medications Thank you for this consultation, we will continue to follow Dr. Josefina Leblanc I agree with the dictator's note, documented as a scribe by Mery Clancy.
[2021-10-16 18:10] LABS: Glucose,Whole Blood 163 mg/dL (75-99)
[2021-10-16] MEDS: INSULIN ASPART (NovoLOG) 100 UNIT/ML VIAL SQ SCH (19:13)
[2021-10-16] MEDS ORDERED: SODIUM ZIRCONIUM CYCLOSILICATE 10 GM PACKET PO ONE (20:18)
[2021-10-16] MEDS ORDERED: CALCIUM GLUCONATE IN NACL 1 GM in SALINE 1 100ML.BAG IVPB ONE (20:21)
[2021-10-16] MEDS ORDERED: ALBUTEROL NEB (CONC) 2.5 MG/0.5 ML INHALATION ONE (20:24)
[2021-10-16] MEDS ORDERED: DEXTROSE 50% SYRINGE 50 ML IVP ONE (20:24)
[2021-10-16 20:31] LABS: Glucose,Whole Blood 149 mg/dL (75-99)
[2021-10-16 21:18] LABS: Glucose,Whole Blood 239 mg/dL (75-99)
[2021-10-16 21:34] LABS: Albumin 3.9 g/dL (3.5-5.0); Calcium 8.1 mg/dL (8.4-10.2); Magnesium 1.9 mg/dL (1.6-2.3); Total Bilirubin 2.8 mg/dL (0.2-1.3); Total Protein 6.8 g/dL (6.3-8.2)
[2021-10-16 21:41] LABS: Anisocytosis Slight; HCT 49.4 % (39.0-53.0); HGB 15.2 gm/dL (13.0-17.5); Hypochromasia Marked; MCH 32.2 pg (25.0-35.0); MCHC 30.7 g/dL (31.0-37.0); MCV 104.9 fL (80.0-100.0); Macrocytosis Marked; Mean Platelet Volume 9.7; Platelet Count 190 k/uL (150-450); Poikilocytosis Slight; RBC 4.71 m/uL (4.30-5.90); RDW 17.5 % (11.5-15.5); WBC 24.8 k/uL (3.8-10.6)
[2021-10-16 21:52] LABS: Potassium 6.5 mmol/L (3.5-5.1)
[2021-10-16] MEDS: DAPTOmycin 500 MG in SODIUM CHLORIDE 0.9% 50 ML IVPB SCH (21:52)
[2021-10-16] MEDS: CEFEPIME 1 GM in SODIUM CHLORIDE 0.9% 50 ML IVPB SCH (22:25)
[2021-10-16] MEDS: ALPRAZolam 0.25 MG TAB PO SCH (22:38)
[2021-10-16 22:58] LABS: Band Neutrophils % 37 %; Lymphocytes # (M) 1.49 k/uL (1.0-4.8); Metamyelocytes # (M) 0.25 k/uL (0); Metamyelocytes % 1 %; Monocytes # (M) 0.99 k/uL (0-1.0); Neutrophils % (M) 53 %; Nucleated Red Blood Cells 0 /100 WBC (0-0); Total Cells Counted 200
[2021-10-16 23:03] LABS: Polychromasia Present
[2021-10-16] MEDS: SODIUM ZIRCONIUM CYCLOSILICATE 10 GM PACKET PO SCH (23:26)
[2021-10-16 23:55] LABS: Amorphous Sediment,Urine Moderate /hpf; Appearance,Urine Turbid (Clear); Bacteria,Urine Rare /hpf; Bilirubin,Urine 1+ (Negative); Blood,Urine Trace (Negative); Color,Urine Yellow; Glucose,Urine (UA) Trace (Negative); Ketones,Urine Trace (Negative); Leukocyte Esterase,Urine Negative (Negative); Nitrite,Urine Negative (Negative); PH, Urine 5.5 (5.0-8.0); Protein,Urine 3+ (Negative); RBC,Urine 4 /hpf (0-5); Specific Gravity,Urine 1.017 (1.001-1.035); Squamous Epithelial Cell,Urine 3 /hpf (0-4); Urobilinogen,Urine <2.0 mg/dL (<2.0); WBC,Urine 2 /hpf (0-5)
[2021-10-17] MEDS: HEPARIN SOD,PORK IN 0.45% NACL 25,000 UNIT in 0.45% NACL 1 250ML.BAG IV SCH ×3 (01:47→23:01)
[2021-10-17 04:29] LABS: Anisocytosis Slight; HCT 46.7 % (39.0-53.0); HGB 14.4 gm/dL (13.0-17.5); Hypochromasia Marked; MCH 32.1 pg (25.0-35.0); MCHC 30.8 g/dL (31.0-37.0); MCV 104.4 fL (80.0-100.0); Macrocytosis Moderate; Mean Platelet Volume 9.3; Platelet Count 154 k/uL (150-450); Poikilocytosis Slight; RBC 4.47 m/uL (4.30-5.90); RDW 17.4 % (11.5-15.5); WBC 20.1 k/uL (3.8-10.6)
[2021-10-17 04:37] LABS: Albumin 3.4 g/dL (3.5-5.0); Calcium 7.8 mg/dL (8.4-10.2); Total Bilirubin 2.7 mg/dL (0.2-1.3); Total Protein 6.2 g/dL (6.3-8.2)
[2021-10-17 04:39] LABS: INR 2.4 (<1.2); Partial Thromboplastin Time 47.3 sec (22.0-30.0); Prothrombin Time 24.2 sec (9.0-12.0)
[2021-10-17] MEDS ORDERED: INSULIN REGULAR 100 UNIT/ML VIAL (IV) IV ONE (05:34)
[2021-10-17] MEDS ORDERED: DEXTROSE 50% SYRINGE 50 ML IVP ONE (05:34)
--- NOTE | 2021-10-17 06:35 | ED ---
Medical Decision Making - Lab Data Result diagrams: 10/17/21 04:00 10/17/21 04:00 Lab Results 10/16/21 10/16/21 10/16/21 Range/Units 07:25 07:25 07:25 WBC 31.4 H (3.8-10.6) k/uL RBC 4.82 (4.30-5.90) m/uL Hgb 15.4 (13.0-17.5) gm/dL Hct 51.1 (39.0-53.0) % MCV 106.1 H (80.0-100.0) fL MCH 32.0 (25.0-35.0) pg MCHC 30.2 L (31.0-37.0) g/dL RDW 17.3 H (11.5-15.5) % Plt Count 267 (150-450) k/uL MPV 8.7 Neutrophils % (Manual) 85 % Band Neuts % (Manual) 8 % Lymphocytes % (Manual) 3 % Monocytes % (Manual) 4 % Basophils % (Manual) 1 % Neutrophils # (Manual) 29.20 H (1.3-7.7) k/uL Lymphocytes # (Manual) 0.94 L (1.0-4.8) k/uL Monocytes # (Manual) 1.26 H (0-1.0) k/uL Basophils # (Manual) 0.31 H (0-0.2) k/uL Nucleated RBCs 0 (0-0) /100 WBC Polychromasia Present Hypochromasia Marked Poikilocytosis Slight Anisocytosis Slight Macrocytosis Marked A PT 18.4 H (9.0-12.0) sec INR 1.8 H (<1.2) APTT 27.7 (22.0-30.0) sec Sodium 139 (137-145) mmol/L Potassium 6.2 H* (3.5-5.1) mmol/L Chloride 103 (98-107) mmol/L Carbon Dioxide 12 L (22-30) mmol/L Anion Gap 24 mmol/L BUN 41 H (9-20) mg/dL Creatinine 2.81 H (0.66-1.25) mg/dL Est GFR (CKD-EPI)AfAm 26 (>60 ml/min/1.73 sqM) Est GFR (CKD-EPI)NonAf 22 (>60 ml/min/1.73 sqM) Glucose 121 H (74-99) mg/dL Lactic Ac Sepsis Rflx Plasma Lactic Acid Dwain (0.7-2.0) mmol/L Calcium 8.9 (8.4-10.2) mg/dL Magnesium 2.1 (1.6-2.3) mg/dL Total Bilirubin 3.4 H (0.2-1.3) mg/dL AST 494 H (17-59) U/L ALT 240 H (4-49) U/L Alkaline Phosphatase 78 (38-126) U/L Troponin I (0.000-0.034) ng/mL NT-Pro-B Natriuret Pep pg/mL Total Protein 7.4 (6.3-8.2) g/dL Albumin 4.3 (3.5-5.0) g/dL 10/16/21 10/16/21 10/16/21 Range/Units 07:25 07:25 07:25 WBC (3.8-10.6) k/uL RBC (4.30-5.90) m/uL Hgb (13.0-17.5) gm/dL Hct (39.0-53.0) % MCV (80.0-100.0) fL MCH (25.0-35.0) pg MCHC (31.0-37.0) g/dL RDW (11.5-15.5) % Plt Count (150-450) k/uL MPV Neutrophils % (Manual) % Band Neuts % (Manual) % Lymphocytes % (Manual) % Monocytes % (Manual) % Basophils % (Manual) % Neutrophils # (Manual) (1.3-7.7) k/uL Lymphocytes # (Manual) (1.0-4.8) k/uL Monocytes # (Manual) (0-1.0) k/uL Basophils # (Manual) (0-0.2) k/uL Nucleated RBCs (0-0) /100 WBC Polychromasia Hypochromasia Poikilocytosis Anisocytosis Macrocytosis PT (9.0-12.0) sec INR (<1.2) APTT (22.0-30.0) sec Sodium (137-145) mmol/L Potassium (3.5-5.1) mmol/L Chloride (98-107) mmol/L Carbon Dioxide (22-30) mmol/L Anion Gap mmol/L BUN (9-20) mg/dL Creatinine (0.66-1.25) mg/dL Est GFR (CKD-EPI)AfAm (>60 ml/min/1.73 sqM) Est GFR (CKD-EPI)NonAf (>60 ml/min/1.73 sqM) Glucose (74-99) mg/dL Lactic Ac Sepsis Rflx Plasma Lactic Acid Dwain 11.6 H* (0.7-2.0) mmol/L Calcium (8.4-10.2) mg/dL Magnesium (1.6-2.3) mg/dL Total Bilirubin (0.2-1.3) mg/dL AST (17-59) U/L ALT (4-49) U/L Alkaline Phosphatase (38-126) U/L Troponin I 0.640 H* (0.000-0.034) ng/mL NT-Pro-B Natriuret Pep 35885 pg/mL Total Protein (6.3-8.2) g/dL Albumin (3.5-5.0) g/dL 10/16/21 10/16/21 Range/Units 08:27 09:15 WBC (3.8-10.6) k/uL RBC (4.30-5.90) m/uL Hgb (13.0-17.5) gm/dL Hct (39.0-53.0) % MCV (80.0-100.0) fL MCH (25.0-35.0) pg MCHC (31.0-37.0) g/dL RDW (11.5-15.5) % Plt Count (150-450) k/uL MPV Neutrophils % (Manual) % Band Neuts % (Manual) % Lymphocytes % (Manual) % Monocytes % (Manual) % Basophils % (Manual) % Neutrophils # (Manual) (1.3-7.7) k/uL Lymphocytes # (Manual) (1.0-4.8) k/uL Monocytes # (Manual) (0-1.0) k/uL Basophils # (Manual) (0-0.2) k/uL Nucleated RBCs (0-0) /100 WBC Polychromasia Hypochromasia Poikilocytosis Anisocytosis Macrocytosis PT (9.0-12.0) sec INR (<1.2) APTT (22.0-30.0) sec Sodium (137-145) mmol/L Potassium 6.0 H (3.5-5.1) mmol/L Chloride (98-107) mmol/L Carbon Dioxide (22-30) mmol/L Anion Gap mmol/L BUN (9-20) mg/dL Creatinine (0.66-1.25) mg/dL Est GFR (CKD-EPI)AfAm (>60 ml/min/1.73 sqM) Est GFR (CKD-EPI)NonAf (>60 ml/min/1.73 sqM) Glucose (74-99) mg/dL Lactic Ac Sepsis Rflx Y Plasma Lactic Acid Dwain (0.7-2.0) mmol/L Calcium (8.4-10.2) mg/dL Magnesium (1.6-2.3) mg/dL Total Bilirubin (0.2-1.3) mg/dL AST (17-59) U/L ALT (4-49) U/L Alkaline Phosphatase (38-126) U/L Troponin I (0.000-0.034) ng/mL NT-Pro-B Natriuret Pep pg/mL Total Protein (6.3-8.2) g/dL Albumin (3.5-5.0) g/dL Disposition Clinical Impression: DVT, lower extremity, Cholelithiasis, Elevated troponin, Sepsis, Lactic acidosis, Hyperkalemia Disposition: ADMITTED IP TO THIS HOSP Condition: Serious Procedures - [place] Protocol (Time Out) Nurse: Benedicto Beck - Sepsis Sepsis Focused Exam #1 Time Sepsis Criteria Met: : Sepsis Focused Exam Date: 10/16/21 Sepsis Focused Exam Time: 09:32 Sepsis Focused Exam Complete: Yes Vital Signs & RN Notes Reviewed: Yes Capillary Refill: < 2 Seconds: Fingers, > 2 Seconds: Toes Peripheral Pulses: Absent: Dorsalis Pedis (R), Dorsalis Pedis (L), Weak: Posterior Tibialis (R), Posterior Tibialis (L), Normal: Radial (R), Radial (L) Skin Color: Normal for Patient Respiratory Exam: normal lung sounds Cardiovascular Exam: regular rate, normal rhythm
[2021-10-17 07:02] LABS: Glucose,Whole Blood 217 mg/dL (75-99)
[2021-10-17 07:05] LABS: Band Neutrophils % 37 %; Lymphocytes # (M) 1.01 k/uL (1.0-4.8); Neutrophils % (M) 56 %; Nucleated Red Blood Cells 0 /100 WBC (0-0); Total Cells Counted 200
[2021-10-17 07:08] LABS: Polychromasia Present
[2021-10-17] MEDS: INSULIN ASPART (NovoLOG) 100 UNIT/ML VIAL SQ SCH ×3 (07:15→19:48)
[2021-10-17] MEDS: ALPRAZolam 0.25 MG TAB PO SCH (08:33)
[2021-10-17] MEDS: FLUoxetine HCL 20 MG CAP PO SCH ×2 (08:47→20:07)
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
[2021-10-17] MEDS: ASPIRIN 81 MG PO SCH (08:54)
[2021-10-17] MEDS: CEFEPIME 1 GM in SODIUM CHLORIDE 0.9% 50 ML IVPB SCH (08:55)
[2021-10-17] MEDS: SODIUM ZIRCONIUM CYCLOSILICATE 10 GM PACKET PO SCH ×3 (08:55→19:48)
[2021-10-17] MEDS ORDERED: SODIUM BICARB 8.4% 50 ML SYR (1 MEQ/ML) IV STA (09:58)
--- NOTE | 2021-10-17 10:18 | P.PN ---
Subjective Progress Note Date: 10/17/21 Principal diagnosis: DVT, pulmonary embolism The patient seen and examined on as a follow-up for left lower extremity DVT. She was sent to the ICU yesterday evening. Patient underwent pulmonary perfusion study that reported nondiagnostic for pulmonary embolism with single area of subtle mismatch within the right middle lobe. He remains on IV heparin drip. Her main hypotensive through the night, plasma lactic acid still elevated at 3.5. WBC 20.0 hemoglobin 14 hematocrit 46, 154,000 INR 2.4 sodium 132 potassium 6.0 BUN 57 creatinine 3.47 total bilirubin 2.7 AST 4309 and 06/26/1980 alk phos 57. He denies any abdominal pain, no nausea or vomiting. Denying any pain in the left lower extremity. No shortness of breath, chest pain, fevers or chills. Objective - Vital Signs Vital signs: Vital Signs Temp 98.1 F 10/17/21 04:00 Pulse 70 10/17/21 07:00 Resp 16 10/17/21 07:00 BP 101/67 10/17/21 07:00 Pulse Ox 94 L 10/17/21 07:57 FiO2 Intake & Output 10/16/21 10/17/21 10/17/21 18:59 06:59 18:59 Intake Total 137.436 812.564 50 Balance 137.436 812.564 50 Weight 90.718 kg 101.2 kg Intake: IV 450 50 Dextrose 5% in Water 1, 450 50 000 ml @ 50 mls/hr IV . Q21H [facility]AN with Sodium Bicarb (1 Meq/ml) 50 ml Rx#:[id number] Intake, IV Titration 137.436 362.564 Amount Calcium Gluconate in NaCl 100 1 gm In Saline 1 100ml. bag @ 100 mls/hr IVPB ONCE ONE Rx#:[id number] Cefepime 1 gm In Sodium 50 Chloride 0.9% 50 ml @ 12. 5 mls/hr IVPB Q12HR [facility]AN Rx#:[id number] DAPTOmycin 500 mg In 100 Sodium Chloride 0.9% 50 ml @ 100 mls/hr IVPB Q48H [facility] Rx#:[id number] Heparin Sod,Pork in 0.45% 137.436 112.564 NaCl 25,000 unit In 0.45 % NaCl 1 250ml.bag @ 18 UNITS/KG/HR 16.329 mls/hr IV .[id number] [facility] Rx#: [id number] Oral 0 Other: Voiding Method Urinal Urinal # Voids 0 0 - Exam General appearance: The patient is alert, oriented, appears in no acute distress. HET: Head is normocephalic and atraumatic. Pupils are equal and reactive. Neck: Supple without lymphadenopathy. Trachea midline. Heart: S1 S2. Regular rate and rhythm. Lungs: Clear to auscultation bilaterally. Abdomen: Soft, nontender, nondistended. Extremities: Bilateral lower extremities cool to the touch on feet and toes. Good capillary refill. Discoloration/redness to bilateral shins. Palpable bilateral femoral pulses. Nonpalpable DP and PT pulses. Positive DP and PT Doppler signal. Left fourth toe previous amputation site well healed. Left calf tender to palpate. John wrap on left lower extremity below the knee to the ankle. Neurological: No focal deficits. Strength and sensation are grossly intact. - Labs CBC & Chem 7: 10/17/21 04:00 10/17/21 04:00 Labs: Abnormal Lab Results - Last 24 Hours (Table) 10/16/21 10/16/21 10/16/21 Range/Units 07:25 08:27 12:02 WBC (3.8-10.6) k/uL MCV (80.0-100.0) fL MCHC (31.0-37.0) g/dL RDW (11.5-15.5) % Neutrophils # (Manual) (1.3-7.7) k/uL Metamyelocytes # (Man) (0) k/uL Macrocytosis PT (9.0-12.0) sec INR (<1.2) APTT (22.0-30.0) sec Sodium (137-145) mmol/L Potassium 6.0 H (3.5-5.1) mmol/L Carbon Dioxide (22-30) mmol/L BUN (9-20) mg/dL Creatinine (0.66-1.25) mg/dL Glucose (74-99) mg/dL POC Glucose (mg/dL) (75-99) mg/dL Plasma Lactic Acid Dwain 11.6 H* 7.5 H* (0.7-2.0) mmol/L Calcium (8.4-10.2) mg/dL Total Bilirubin (0.2-1.3) mg/dL AST (17-59) U/L ALT (4-49) U/L Troponin I (0.000-0.034) ng/mL Total Protein (6.3-8.2) g/dL Albumin (3.5-5.0) g/dL Urine Protein (Negative) Urine Glucose (UA) (Negative) Urine Ketones (Negative) Urine Blood (Negative) Urine Bilirubin (Negative) Amorphous Sediment (None) /hpf Urine Bacteria (None) /hpf 10/16/21 10/16/21 10/16/21 Range/Units 17:10 17:10 17:10 WBC (3.8-10.6) k/uL MCV (80.0-100.0) fL MCHC (31.0-37.0) g/dL RDW (11.5-15.5) % Neutrophils # (Manual) (1.3-7.7) k/uL Metamyelocytes # (Man) (0) k/uL Macrocytosis PT (9.0-12.0) sec INR (<1.2) APTT 138.9 H* (22.0-30.0) sec Sodium (137-145) mmol/L Potassium (3.5-5.1) mmol/L Carbon Dioxide (22-30) mmol/L BUN (9-20) mg/dL Creatinine (0.66-1.25) mg/dL Glucose (74-99) mg/dL POC Glucose (mg/dL) (75-99) mg/dL Plasma Lactic Acid Dawin 5.4 H* (0.7-2.0) mmol/L Calcium (8.4-10.2) mg/dL Total Bilirubin (0.2-1.3) mg/dL AST (17-59) U/L ALT (4-49) U/L Troponin I 2.460 H* (0.000-0.034) ng/mL Total Protein (6.3-8.2) g/dL Albumin (3.5-5.0) g/dL Urine Protein (Negative) Urine Glucose (UA) (Negative) Urine Ketones (Negative) Urine Blood (Negative) Urine Bilirubin (Negative) Amorphous Sediment (None) /hpf Urine Bacteria (None) /hpf 10/16/21 10/16/21 10/16/21 Range/Units 18:09 19:18 19:42 WBC (3.8-10.6) k/uL MCV (80.0-100.0) fL MCHC (31.0-37.0) g/dL RDW (11.5-15.5) % Neutrophils # (Manual) (1.3-7.7) k/uL Metamyelocytes # (Man) (0) k/uL Macrocytosis PT (9.0-12.0) sec INR (<1.2) APTT (22.0-30.0) sec Sodium (137-145) mmol/L Potassium 6.5 H* (3.5-5.1) mmol/L Carbon Dioxide (22-30) mmol/L BUN (9-20) mg/dL Creatinine (0.66-1.25) mg/dL Glucose (74-99) mg/dL POC Glucose (mg/dL) 163 H (75-99) mg/dL Plasma Lactic Acid Dwain 5.6 H* (0.7-2.0) mmol/L Calcium (8.4-10.2) mg/dL Total Bilirubin (0.2-1.3) mg/dL AST (17-59) U/L ALT (4-49) U/L Troponin I (0.000-0.034) ng/mL Total Protein (6.3-8.2) g/dL Albumin (3.5-5.0) g/dL Urine Protein (Negative) Urine Glucose (UA) (Negative) Urine Ketones (Negative) Urine Blood (Negative) Urine Bilirubin (Negative) Amorphous Sediment (None) /hpf Urine Bacteria (None) /hpf 10/16/21 10/16/21 10/16/21 Range/Units 20:19 21:06 21:06 WBC 24.8 H (3.8-10.6) k/uL MCV 104.9 H (80.0-100.0) fL MCHC 30.7 L (31.0-37.0) g/dL RDW 17.5 H (11.5-15.5) % Neutrophils # (Manual) 22.30 H (1.3-7.7) k/uL Metamyelocytes # (Man) 0.25 H (0) k/uL Macrocytosis Marked A PT (9.0-12.0) sec INR (<1.2) APTT (22.0-30.0) sec Sodium 135 L (137-145) mmol/L Potassium 6.5 H* (3.5-5.1) mmol/L Carbon Dioxide 15 L (22-30) mmol/L BUN 53 H (9-20) mg/dL Creatinine 3.29 H (0.66-1.25) mg/dL Glucose 174 H (74-99) mg/dL POC Glucose (mg/dL) 149 H (75-99) mg/dL Plasma Lactic Acid Dwain (0.7-2.0) mmol/L Calcium 8.1 L (8.4-10.2) mg/dL Total Bilirubin 2.8 H (0.2-1.3) mg/dL AST 3128 H (17-59) U/L ALT 1450 H (4-49) U/L Troponin I (0.000-0.034) ng/mL Total Protein (6.3-8.2) g/dL Albumin (3.5-5.0) g/dL Urine Protein (Negative) Urine Glucose (UA) (Negative) Urine Ketones (Negative) Urine Blood (Negative) Urine Bilirubin (Negative) Amorphous Sediment (None) /hpf Urine Bacteria (None) /hpf 10/16/21 10/16/21 10/16/21 Range/Units 21:06 21:17 23:03 WBC (3.8-10.6) k/uL MCV (80.0-100.0) fL MCHC (31.0-37.0) g/dL RDW (11.5-15.5) % Neutrophils # (Manual) (1.3-7.7) k/uL Metamyelocytes # (Man) (0) k/uL Macrocytosis PT (9.0-12.0) sec INR (<1.2) APTT (22.0-30.0) sec Sodium (137-145) mmol/L Potassium (3.5-5.1) mmol/L Carbon Dioxide (22-30) mmol/L BUN (9-20) mg/dL Creatinine (0.66-1.25) mg/dL Glucose (74-99) mg/dL POC Glucose (mg/dL) 239 H (75-99) mg/dL Plasma Lactic Acid Dwain 5.6 H* (0.7-2.0) mmol/L Calcium (8.4-10.2) mg/dL Total Bilirubin (0.2-1.3) mg/dL AST (17-59) U/L ALT (4-49) U/L Troponin I (0.000-0.034) ng/mL Total Protein (6.3-8.2) g/dL Albumin (3.5-5.0) g/dL Urine Protein 3+ H (Negative) Urine Glucose (UA) Trace H (Negative) Urine Ketones Trace H (Negative) Urine Blood Trace H (Negative) Urine Bilirubin 1+ H (Negative) Amorphous Sediment Moderate H (None) /hpf Urine Bacteria Rare H (None) /hpf 10/17/21 10/17/21 10/17/21 Range/Units 00:08 00:08 01:10 WBC (3.8-10.6) k/uL MCV (80.0-100.0) fL MCHC (31.0-37.0) g/dL RDW (11.5-15.5) % Neutrophils # (Manual) (1.3-7.7) k/uL Metamyelocytes # (Man) (0) k/uL Macrocytosis PT (9.0-12.0) sec INR (<1.2) APTT 49.0 H (22.0-30.0) sec Sodium (137-145) mmol/L Potassium 6.1 H* (3.5-5.1) mmol/L Carbon Dioxide (22-30) mmol/L BUN (9-20) mg/dL Creatinine (0.66-1.25) mg/dL Glucose (74-99) mg/dL POC Glucose (mg/dL) (75-99) mg/dL Plasma Lactic Acid Dwain 4.1 H* (0.7-2.0) mmol/L Calcium (8.4-10.2) mg/dL Total Bilirubin (0.2-1.3) mg/dL AST (17-59) U/L ALT (4-49) U/L Troponin I (0.000-0.034) ng/mL Total Protein (6.3-8.2) g/dL Albumin (3.5-5.0) g/dL Urine Protein (Negative) Urine Glucose (UA) (Negative) Urine Ketones (Negative) Urine Blood (Negative) Urine Bilirubin (Negative) Amorphous Sediment (None) /hpf Urine Bacteria (None) /hpf 10/17/21 10/17/21 10/17/21 Range/Units 04:00 04:00 04:00 WBC 20.1 H (3.8-10.6) k/uL MCV 104.4 H (80.0-100.0) fL MCHC 30.8 L (31.0-37.0) g/dL RDW 17.4 H (11.5-15.5) % Neutrophils # (Manual) 18.60 H (1.3-7.7) k/uL Metamyelocytes # (Man) (0) k/uL Macrocytosis PT 24.2 H (9.0-12.0) sec INR 2.4 H (<1.2) APTT 47.3 H (22.0-30.0) sec Sodium 132 L (137-145) mmol/L Potassium 6.0 H (3.5-5.1) mmol/L Carbon Dioxide 14 L (22-30) mmol/L BUN 57 H (9-20) mg/dL Creatinine 3.47 H (0.66-1.25) mg/dL Glucose 203 H (74-99) mg/dL POC Glucose (mg/dL) (75-99) mg/dL Plasma Lactic Acid Dwain (0.7-2.0) mmol/L Calcium 7.8 L (8.4-10.2) mg/dL Total Bilirubin 2.7 H (0.2-1.3) mg/dL AST 4309 H (17-59) U/L ALT 2181 H (4-49) U/L Troponin I (0.000-0.034) ng/mL Total Protein 6.2 L (6.3-8.2) g/dL Albumin 3.4 L (3.5-5.0) g/dL Urine Protein (Negative) Urine Glucose (UA) (Negative) Urine Ketones (Negative) Urine Blood (Negative) Urine Bilirubin (Negative) Amorphous Sediment (None) /hpf Urine Bacteria (None) /hpf 10/17/21 10/17/21 10/17/21 Range/Units 04:00 07:00 07:42 WBC (3.8-10.6) k/uL MCV (80.0-100.0) fL MCHC (31.0-37.0) g/dL RDW (11.5-15.5) % Neutrophils # (Manual) (1.3-7.7) k/uL Metamyelocytes # (Man) (0) k/uL Macrocytosis PT (9.0-12.0) sec INR (<1.2) APTT (22.0-30.0) sec Sodium (137-145) mmol/L Potassium (3.5-5.1) mmol/L Carbon Dioxide (22-30) mmol/L BUN (9-20) mg/dL Creatinine (0.66-1.25) mg/dL Glucose (74-99) mg/dL POC Glucose (mg/dL) 217 H (75-99) mg/dL Plasma Lactic Acid Dwain 3.5 H* 3.1 H* (0.7-2.0) mmol/L Calcium (8.4-10.2) mg/dL Total Bilirubin (0.2-1.3) mg/dL AST (17-59) U/L ALT (4-49) U/L Troponin I (0.000-0.034) ng/mL Total Protein (6.3-8.2) g/dL Albumin (3.5-5.0) g/dL Urine Protein (Negative) Urine Glucose (UA) (Negative) Urine Ketones (Negative) Urine Blood (Negative) Urine Bilirubin (Negative) Amorphous Sediment (None) /hpf Urine Bacteria (None) /hpf Assessment and Plan Assessment: 1. Left lower extremity DVT 2. Positive lactic acid 3. Hypotension 4. Elevated troponins 5. Shortness of breath 6. Acute kidney injury 7. Ischemic cardiomyopathy with LV dysfunction. 8. Acute hepatitis likely from shock liver 9. Leukocytosis 10. History of coronary artery disease status post MN, cardiac stents 11. Diabetes mellitus 12. Previous left toe amputation for diabetic wound/infection Plan: 1. Continue heparin drip for now, plan will be to transition to oral anticoagulation 2. Continue to monitor CBC, platelets 3. If platelets continue to drop please consult hematology 4. Activity as tolerated and per recommendations from ICU/medical management 5. No indication for any vascular surgical intervention 6. Continue ICU/medical management 7. KAYDEN gordon, thigh-high to left lower extremity Thank you for this consultation, we will continue to follow. The impression and plan of care has been dictated as directed. Dr. le I performed a history and examination of this patient, discussed the same with the dictator. I agree with the dictator's note ,documented as a scribe. Any additional findings or plans will be noted.
--- NOTE | 2021-10-17 10:31 | P.PN ---
Subjective Progress Note Date: 10/17/21 Principal diagnosis: Elevated LFTs, acute ischemic hepatitis This is a 66-year-old male with a past medical history including coronary artery disease status post cardiac stent, 5 MIs, diabetes mellitus, hyperlipidemia, hypertension, skin cancer and previous left fourth toe amputation. The patient presented to the emergency department with complaints of left lower extremity pa in that started 2 days ago. Patient had a venous duplex that showed extensive left lower extremity DVT involving the left common femoral vein and superficial femoral vein. Vascular surgery was consulted for the above. The patient had also complained of abdominal pain with nausea and vomiting the day prior to admission. He had elevated total bilirubin AST and ALT on admission. He underwent ultrasound of the gallbladder that showed cholelithiasis, correlate for cholecystitis. Possible underlying hepatocellular disease, hepatic steatosis. There was no CBD dilation. Throughout the night the patient continued to be hypotensive, he was transferred to the ICU. He had repeat troponins that when up to 2.46. Lactic acid improving most recent 3.1. He had significant rise in his LFTs consistent with an acute hepatitis. Repeat labs today WBC 20.1 hemoglobin 14.4 hematocrit 47 platelet count 154,000 INR 2.4 sodium 132 potassium 6.0 BUN 57 creatinine 3.47 total bilirubin 2.7 AST 4309 ALT 2181 alkaline phosphatase 57. Today he denies any abdominal pain, no nausea or vomiting. He denies chest pain, or shortness of breath no fevers or chills. He's been afebrile. Blood pressure 101/67 oxygen saturation 91-99% on 5 L nasal cannula. Objective - Vital Signs Vital signs: Vital Signs Temp 98.1 F 10/17/21 04:00 Pulse 70 10/17/21 07:00 Resp 16 10/17/21 07:00 BP 101/67 10/17/21 07:00 Pulse Ox 94 L 10/17/21 07:57 FiO2 Intake & Output 10/16/21 10/17/21 10/17/21 18:59 06:59 18:59 Intake Total 137.436 812.564 50 Balance 137.436 812.564 50 Weight 90.718 kg 101.2 kg Intake: IV 450 50 Dextrose 5% in Water 1, 450 50 000 ml @ 50 mls/hr IV . Q21H VAN with Sodium Bicarb (1 Meq/ml) 50 ml Rx#:[id number] Intake, IV Titration 137.436 362.564 Amount Calcium Gluconate in NaCl 100 1 gm In Saline 1 100ml. bag @ 100 mls/hr IVPB ONCE ONE Rx#:[id number] Cefepime 1 gm In Sodium 50 Chloride 0.9% 50 ml @ 12. 5 mls/hr IVPB Q12HR [facility] Rx#:[id number] DAPTOmycin 500 mg In 100 Sodium Chloride 0.9% 50 ml @ 100 mls/hr IVPB Q48H [facility] Rx#:[id number] Heparin Sod,Pork in 0.45% 137.436 112.564 NaCl 25,000 unit In 0.45 % NaCl 1 250ml.bag @ 18 UNITS/KG/HR 16.329 mls/hr IV .[id number] [facility] Rx#: [id number] Oral 0 Other: Voiding Method Urinal Urinal # Voids 0 0 - Exam General appearance: The patient is alert, oriented, appears in no acute distress. HET: Head is normocephalic and atraumatic. Conjunctiva pink. Sclera anicteric. Neck: Supple without lymphadenopathy. Abdomen: Soft, nontender, nondistended with bowel sounds. No guarding or rigidity. Extremities: Normal skin color and turgor. No pedal edema Skin: No rashes, no jaundice Neurological: No focal deficits. Alert and oriented x 3. - Labs CBC & Chem 7: 10/17/21 04:00 10/17/21 04:00 Labs: Abnormal Lab Results - Last 24 Hours (Table) 10/16/21 10/16/21 10/16/21 Range/Units 07:25 08:27 12:02 WBC (3.8-10.6) k/uL MCV (80.0-100.0) fL MCHC (31.0-37.0) g/dL RDW (11.5-15.5) % Neutrophils # (Manual) (1.3-7.7) k/uL Metamyelocytes # (Man) (0) k/uL Macrocytosis PT (9.0-12.0) sec INR (<1.2) APTT (22.0-30.0) sec Sodium (137-145) mmol/L Potassium 6.0 H (3.5-5.1) mmol/L Carbon Dioxide (22-30) mmol/L BUN (9-20) mg/dL Creatinine (0.66-1.25) mg/dL Glucose (74-99) mg/dL POC Glucose (mg/dL) (75-99) mg/dL Plasma Lactic Acid Dwain 11.6 H* 7.5 H* (0.7-2.0) mmol/L Calcium (8.4-10.2) mg/dL Total Bilirubin (0.2-1.3) mg/dL AST (17-59) U/L ALT (4-49) U/L Troponin I (0.000-0.034) ng/mL Total Protein (6.3-8.2) g/dL Albumin (3.5-5.0) g/dL Urine Protein (Negative) Urine Glucose (UA) (Negative) Urine Ketones (Negative) Urine Blood (Negative) Urine Bilirubin (Negative) Amorphous Sediment (None) /hpf Urine Bacteria (None) /hpf 10/16/21 10/16/21 10/16/21 Range/Units 17:10 17:10 17:10 WBC (3.8-10.6) k/uL MCV (80.0-100.0) fL MCHC (31.0-37.0) g/dL RDW (11.5-15.5) % Neutrophils # (Manual) (1.3-7.7) k/uL Metamyelocytes # (Man) (0) k/uL Macrocytosis PT (9.0-12.0) sec INR (<1.2) APTT 138.9 H* (22.0-30.0) sec Sodium (137-145) mmol/L Potassium (3.5-5.1) mmol/L Carbon Dioxide (22-30) mmol/L BUN (9-20) mg/dL Creatinine (0.66-1.25) mg/dL Glucose (74-99) mg/dL POC Glucose (mg/dL) (75-99) mg/dL Plasma Lactic Acid Dwain 5.4 H* (0.7-2.0) mmol/L Calcium (8.4-10.2) mg/dL Total Bilirubin (0.2-1.3) mg/dL AST (17-59) U/L ALT (4-49) U/L Troponin I 2.460 H* (0.000-0.034) ng/mL Total Protein (6.3-8.2) g/dL Albumin (3.5-5.0) g/dL Urine Protein (Negative) Urine Glucose (UA) (Negative) Urine Ketones (Negative) Urine Blood (Negative) Urine Bilirubin (Negative) Amorphous Sediment (None) /hpf Urine Bacteria (None) /hpf 10/16/21 10/16/21 10/16/21 Range/Units 18:09 19:18 19:42 WBC (3.8-10.6) k/uL MCV (80.0-100.0) fL MCHC (31.0-37.0) g/dL RDW (11.5-15.5) % Neutrophils # (Manual) (1.3-7.7) k/uL Metamyelocytes # (Man) (0) k/uL Macrocytosis PT (9.0-12.0) sec INR (<1.2) APTT (22.0-30.0) sec Sodium (137-145) mmol/L Potassium 6.5 H* (3.5-5.1) mmol/L Carbon Dioxide (22-30) mmol/L BUN (9-20) mg/dL Creatinine (0.66-1.25) mg/dL Glucose (74-99) mg/dL POC Glucose (mg/dL) 163 H (75-99) mg/dL Plasma Lactic Acid Dwain 5.6 H* (0.7-2.0) mmol/L Calcium (8.4-10.2) mg/dL Total Bilirubin (0.2-1.3) mg/dL AST (17-59) U/L ALT (4-49) U/L Troponin I (0.000-0.034) ng/mL Total Protein (6.3-8.2) g/dL Albumin (3.5-5.0) g/dL Urine Protein (Negative) Urine Glucose (UA) (Negative) Urine Ketones (Negative) Urine Blood (Negative) Urine Bilirubin (Negative) Amorphous Sediment (None) /hpf Urine Bacteria (None) /hpf 10/16/21 10/16/21 10/16/21 Range/Units 20:19 21:06 21:06 WBC 24.8 H (3.8-10.6) k/uL MCV 104.9 H (80.0-100.0) fL MCHC 30.7 L (31.0-37.0) g/dL RDW 17.5 H (11.5-15.5) % Neutrophils # (Manual) 22.30 H (1.3-7.7) k/uL Metamyelocytes # (Man) 0.25 H (0) k/uL Macrocytosis Marked A PT (9.0-12.0) sec INR (<1.2) APTT (22.0-30.0) sec Sodium 135 L (137-145) mmol/L Potassium 6.5 H* (3.5-5.1) mmol/L Carbon Dioxide 15 L (22-30) mmol/L BUN 53 H (9-20) mg/dL Creatinine 3.29 H (0.66-1.25) mg/dL Glucose 174 H (74-99) mg/dL POC Glucose (mg/dL) 149 H (75-99) mg/dL Plasma Lactic Acid Dwain (0.7-2.0) mmol/L Calcium 8.1 L (8.4-10.2) mg/dL Total Bilirubin 2.8 H (0.2-1.3) mg/dL AST 3128 H (17-59) U/L ALT 1450 H (4-49) U/L Troponin I (0.000-0.034) ng/mL Total Protein (6.3-8.2) g/dL Albumin (3.5-5.0) g/dL Urine Protein (Negative) Urine Glucose (UA) (Negative) Urine Ketones (Negative) Urine Blood (Negative) Urine Bilirubin (Negative) Amorphous Sediment (None) /hpf Urine Bacteria (None) /hpf 10/16/21 10/16/21 10/16/21 Range/Units 21:06 21:17 23:03 WBC (3.8-10.6) k/uL MCV (80.0-100.0) fL MCHC (31.0-37.0) g/dL RDW (11.5-15.5) % Neutrophils # (Manual) (1.3-7.7) k/uL Metamyelocytes # (Man) (0) k/uL Macrocytosis PT (9.0-12.0) sec INR (<1.2) APTT (22.0-30.0) sec Sodium (137-145) mmol/L Potassium (3.5-5.1) mmol/L Carbon Dioxide (22-30) mmol/L BUN (9-20) mg/dL Creatinine (0.66-1.25) mg/dL Glucose (74-99) mg/dL POC Glucose (mg/dL) 239 H (75-99) mg/dL Plasma Lactic Acid Dwain 5.6 H* (0.7-2.0) mmol/L Calcium (8.4-10.2) mg/dL Total Bilirubin (0.2-1.3) mg/dL AST (17-59) U/L ALT (4-49) U/L Troponin I (0.000-0.034) ng/mL Total Protein (6.3-8.2) g/dL Albumin (3.5-5.0) g/dL Urine Protein 3+ H (Negative) Urine Glucose (UA) Trace H (Negative) Urine Ketones Trace H (Negative) Urine Blood Trace H (Negative) Urine Bilirubin 1+ H (Negative) Amorphous Sediment Moderate H (None) /hpf Urine Bacteria Rare H (None) /hpf 10/17/21 10/17/21 10/17/21 Range/Units 00:08 00:08 01:10 WBC (3.8-10.6) k/uL MCV (80.0-100.0) fL MCHC (31.0-37.0) g/dL RDW (11.5-15.5) % Neutrophils # (Manual) (1.3-7.7) k/uL Metamyelocytes # (Man) (0) k/uL Macrocytosis PT (9.0-12.0) sec INR (<1.2) APTT 49.0 H (22.0-30.0) sec Sodium (137-145) mmol/L Potassium 6.1 H* (3.5-5.1) mmol/L Carbon Dioxide (22-30) mmol/L BUN (9-20) mg/dL Creatinine (0.66-1.25) mg/dL Glucose (74-99) mg/dL POC Glucose (mg/dL) (75-99) mg/dL Plasma Lactic Acid Dwain 4.1 H* (0.7-2.0) mmol/L Calcium (8.4-10.2) mg/dL Total Bilirubin (0.2-1.3) mg/dL AST (17-59) U/L ALT (4-49) U/L Troponin I (0.000-0.034) ng/mL Total Protein (6.3-8.2) g/dL Albumin (3.5-5.0) g/dL Urine Protein (Negative) Urine Glucose (UA) (Negative) Urine Ketones (Negative) Urine Blood (Negative) Urine Bilirubin (Negative) Amorphous Sediment (None) /hpf Urine Bacteria (None) /hpf 10/17/21 10/17/21 10/17/21 Range/Units 04:00 04:00 04:00 WBC 20.1 H (3.8-10.6) k/uL MCV 104.4 H (80.0-100.0) fL MCHC 30.8 L (31.0-37.0) g/dL RDW 17.4 H (11.5-15.5) % Neutrophils # (Manual) 18.60 H (1.3-7.7) k/uL Metamyelocytes # (Man) (0) k/uL Macrocytosis PT 24.2 H (9.0-12.0) sec INR 2.4 H (<1.2) APTT 47.3 H (22.0-30.0) sec Sodium 132 L (137-145) mmol/L Potassium 6.0 H (3.5-5.1) mmol/L Carbon Dioxide 14 L (22-30) mmol/L BUN 57 H (9-20) mg/dL Creatinine 3.47 H (0.66-1.25) mg/dL Glucose 203 H (74-99) mg/dL POC Glucose (mg/dL) (75-99) mg/dL Plasma Lactic Acid Dwain (0.7-2.0) mmol/L Calcium 7.8 L (8.4-10.2) mg/dL Total Bilirubin 2.7 H (0.2-1.3) mg/dL AST 4309 H (17-59) U/L ALT 2181 H (4-49) U/L Troponin I (0.000-0.034) ng/mL Total Protein 6.2 L (6.3-8.2) g/dL Albumin 3.4 L (3.5-5.0) g/dL Urine Protein (Negative) Urine Glucose (UA) (Negative) Urine Ketones (Negative) Urine Blood (Negative) Urine Bilirubin (Negative) Amorphous Sediment (None) /hpf Urine Bacteria (None) /hpf 10/17/21 10/17/21 10/17/21 Range/Units 04:00 07:00 07:42 WBC (3.8-10.6) k/uL MCV (80.0-100.0) fL MCHC (31.0-37.0) g/dL RDW (11.5-15.5) % Neutrophils # (Manual) (1.3-7.7) k/uL Metamyelocytes # (Man) (0) k/uL Macrocytosis PT (9.0-12.0) sec INR (<1.2) APTT (22.0-30.0) sec Sodium (137-145) mmol/L Potassium (3.5-5.1) mmol/L Carbon Dioxide (22-30) mmol/L BUN (9-20) mg/dL Creatinine (0.66-1.25) mg/dL Glucose (74-99) mg/dL POC Glucose (mg/dL) 217 H (75-99) mg/dL Plasma Lactic Acid Dwain 3.5 H* 3.1 H* (0.7-2.0) mmol/L Calcium (8.4-10.2) mg/dL Total Bilirubin (0.2-1.3) mg/dL AST (17-59) U/L ALT (4-49) U/L Troponin I (0.000-0.034) ng/mL Total Protein (6.3-8.2) g/dL Albumin (3.5-5.0) g/dL Urine Protein (Negative) Urine Glucose (UA) (Negative) Urine Ketones (Negative) Urine Blood (Negative) Urine Bilirubin (Negative) Amorphous Sediment (None) /hpf Urine Bacteria (None) /hpf Assessment and Plan (1) Cholelithiasis Narrative/Plan: 66-year-old male who presented to the emergency department with complaints of left lower extremity pain. He has multiple comorbidities including history of coronary artery disease status post stenting and 5 MIs. He came in with elevated lactic acid, elevated troponins, white count, and elevation in his t otal bilirubin, LFTs. Gallbladder ultrasound was obtained showing multiple gallstones without any CBD dilation. Also stating possible underlying hepatocellular disease due to echotexture of liver. Patient denies any current abdominal pain. He did state that he did have some abdominal discomfort yesterday with some nausea and vomiting. He is more concerned with some shortness of breath and left lower extremity pain for which he was diagnosed with a DVT. Due to elevated total bilirubin and LFTs gastroenterology was asked to evaluate patient for possible choledocholithiasis. Patient no longer is experiencing pain however may have passed the stone. We'll await repeat labs and MRCP. Patient currently on a heparin drip. Will tentatively plan for possible ERCP tomorrow if cleared by cardiology. Gen. surgery on consultation as well. Current Visit: Yes Status: Acute Code(s): K80.20 - CALCULUS OF GALLBLADDER W/O CHOLECYSTITIS W/O OBSTRUCTION SNOMED Code(s): 685565305 (2) Elevated LFTs Narrative/Plan: Elevation in total bilirubin 3.4 AST 494 AST 240. Patient denies any previous history of underlying liver disease. Gallbladder ultrasound reports on the echotexture of liver with possible underlying liver disease. With the acute increase in patient's AST and ALT now 4309 and 2181 respectively picture is more likely an acute ischemic hepatitis related to underlying shock liver from sepsis and hypotension. Patient also with possible underlying hepatocellular disease related to hepatic steatosis. No plans at this time for ERCP. We'll continue to monitor patient. Current Visit: Yes Status: Acute Code(s): R79.89 - OTHER SPECIFIED ABNORMAL FINDINGS OF BLOOD CHEMISTRY SNOMED Code(s): 872376996 (3) Type 2 diabetes mellitus Current Visit: Yes Status: Acute Code(s): E11.9 - TYPE 2 DIABETES MELLITUS WITHOUT COMPLICATIONS SNOMED Code(s): 58596477 (4) Coronary artery disease Current Visit: Yes Status: Acute Code(s): I25.10 - ATHSCL HEART DISEASE OF [place] CORONARY ARTERY W/O ANG PCTRS SNOMED Code(s): 85636966 (5) DVT, lower extremity Current Visit: Yes Status: Acute Code(s): I82.409 - ACUTE EMBOLISM AND THOMBOS UNSP DEEP VN UNSP LOWER EXTREMITY SNOMED Code(s): 207314767 (6) Elevated troponin Current Visit: Yes Status: Acute Code(s): R74.8 - ABNORMAL LEVELS OF OTHER SERUM ENZYMES SNOMED Code(s): 322255817 (7) Lactic acidosis Current Visit: Yes Status: Acute Code(s): E87.2 - ACIDOSIS SNOMED Code(s): 36232846 (8) Hypotension Current Visit: Yes Status: Acute Code(s): I95.9 - HYPOTENSION, UNSPECIFIED SNOMED Code(s): 27476009 (9) Leukocytosis Current Visit: Yes Status: Acute Code(s): D72.829 - ELEVATED WHITE BLOOD CELL COUNT, UNSPECIFIED SNOMED Code(s): 009715339 (10) Acute kidney injury Current Visit: Yes Status: Acute Code(s): N17.9 - ACUTE KIDNEY FAILURE, UNSPECIFIED SNOMED Code(s): 35569766 Plan: 1. Continue symptomatic and supportive care 2. Continue ICU/medical management 3. Avoid hepatotoxic medications 4. Patient may have clear liquid diet 5. Daily CBC, CMP, INR 6. Continue with recommendations from general surgery 7. No plans at this time for ERCP/endoscopic evaluation 8. Agree with MRCP, pending results 9. Continue antibiotics Thank you for this consultation, we will continue to follow Dr. Josefina Leblanc I agree with the dictator's note, documented as a scribe by Mery Clancy.
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
[2021-10-17 11:46] LABS: Glucose,Whole Blood 194 mg/dL (75-99)
[2021-10-17] MEDS: AMPICILLIN-SULBACTAM 3 GM in SODIUM CHLORIDE 0.9% 100 ML IVPB SCH ×2 (12:09→20:07)
--- NOTE | 2021-10-17 13:05 | P.PN ---
Progress Note - Text Progress Note Date: 10/17/21 The patient's resting comfortably in his bed. He denies any abdominal pain. On exam vital signs are stable Abdomen soft nontender White count is 20.8. Patient will receive supportive care IV antibiotics. He does not show any significant sign of cholecystitis at this time.
[2021-10-17] MEDS: DEXTROSE 5% IN WATER 1,000 ML with SODIUM BICARB (1 MEQ/ML) 150 ML IV SCH (13:53)
--- NOTE | 2021-10-17 13:57 | P.PN ---
Progress Note - Text Progress Note Date: 10/17/21 Chief Complaint: Left leg pain This is a pleasant 66-year-old patient, follows with Dr. Mike Escobar. Chronic stable medical conditions include CAD with stent, diabetes, hypertension, hyperlipidemia anxiety. Yesterday patient was walking about in [facility] when he started feeling unwell. Decided to leave the store and came to the parking lot. Sat down there. Decided to drive home. Patient has several bouts of nausea and vomiting. [facility]negan of the ER. He was then discharged last night. Denied any fever and chills. Had some abdominal pain. Settle down. He did gets IV fluids at the other hospital. Patient very early this morning started having pain from mid thigh down the leg. Rather significant. No injury. Patient had some sweating for some time. In the ER was found to have a common femoral relevant DVT. Also had arterial Doppler done which was reviewed by Dr. Mike found to be normal. No arterial compromise. Denies any nausea vomiting abdominal pain today. Patient noted to have increased LFTs compared to the was done at [facility]. Admitted with: Acute DVT of the left common femoral vein, choledocholithiasis asymptomatic, acute ischemic hepatitis, acute kidney injury, metabolic acidosis, positive blood cultures from the outside hospital. Patient started IV heparin, sodium bicarbonate drip, IV cefepime and IV daptomycin,. Acute arterial compromise was ruled out by arterial Doppler by Dr. Mike. Hyperkalemia treated. October 17: Because of multiple issues patient smoked in the ICU yesterday evening. Today patient on 5 L of nasal cannula. Decreased urine output. Bicarbonate drip. IV heparin. Doppler ultrasound showing distal pulses. Active Medications Acetaminophen (Acetaminophen Tab 325 Mg Tab) 325 mg PO Q6H PRN PRN Reason: Pain or Fever > 100.5 Alprazolam (Alprazolam 0.25 Mg Tab) 0.25 mg PO BID PRN PRN Reason: Anxiety Aspirin (Aspirin 81 Mg) 81 mg PO DAILY VAN Last Admin: 10/17/21 08:54 Dose: 81 mg Fluoxetine HCl (Fluoxetine Hcl 20 Mg Cap) 20 mg PO HS VAN Heparin Sodium (Porcine) (Heparin Sodium 1,000 Un/Ml (10ml Vl)) 0 unit IV PER PROTOCOL PRN; Protocol PRN Reason: Low PTT Hydromorphone HCl (Hydromorphone 0.5 Mg/0.5 Ml Syringe) 0.5 mg IVP Q3HR PRN PRN Reason: Moderate Pain Last Admin: 10/16/21 11:05 Dose: 0.5 mg Heparin Sodium/Sodium Chloride (25,000 unit/ Sodium Chloride) 250 mls @ 16.329 mls/hr IV .[id number] [facility]; Protocol Last Admin: 10/17/21 04:03 Dose: 15 units/kg/hr, 13.608 mls/hr Daptomycin 500 mg/ Sodium (Chloride) 50 mls @ 100 mls/hr IVPB Q48H [facility] Last Admin: 10/16/21 21:52 Dose: 100 mls/hr Sodium Bicarbonate 150 ml/ (Dextrose/Water) 1,150 mls @ 50 mls/hr IV .Q23H [facility] Ampicillin Sodium/Sulbactam (Sodium 3 gm/ Sodium Chloride) 100 mls @ 200 mls/hr IVPB Q12HR [facility]; Protocol Last Admin: 10/17/21 12:09 Dose: 200 mls/hr Insulin Aspart (Insulin Aspart (Novolog) 100 Unit/Ml Vial) 0 unit SQ AC-TID [facility]; Protocol Last Admin: 10/17/21 12:09 Dose: 2 unit Insulin Detemir (Insulin Detemir (Levemir) 100 Unit/Ml Syr) 15 unit SQ [facility] Naloxone HCl (Naloxone 0.4 Mg/Ml 1 Ml Vial) 0.2 mg IV Q2M PRN PRN Reason: Opioid Reversal Nitroglycerin (Nitroglycerin Sl Tabs 0.4 Mg Tab) 0.4 mg SUBLINGUAL Q5M PRN PRN Reason: Chest Pain Ondansetron HCl (Ondansetron 4 Mg/2 Ml Vial) 4 mg IVP Q8HR PRN PRN Reason: Nausea And Vomiting Sodium Zirconium Cyclosilicate (Sodium Zirconium Cyclosilicate 10 Gm Packet) 10 gm PO TID [facility] Stop: 10/17/21 22:01 Last Admin: 10/17/21 13:34 Dose: 10 gm Past medical history to include: CAD with stent, diabetes, hypertension, hyperlipidemia, skin cancer on the nose in August 2020, anxiety 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 Nonsmoker. Alcohol rarely. Family history: Diabetes, CAD Physical examination: VITAL SIGNS: 98.2, 64, 16, 97.62, 93% on 5 L GENERAL: Sitting up in a chair, awake, tired EYES: Pupils equal. Conjunctiva normal. HEENT: External appearance of nose and ears normal, oral cavity grossly normal. NECK: JVD not raised; masses not palpable. HEART: First and second heart sounds are normal; some edema. LUNGS: Respiratory rate normal; clear to auscultation, . ABDOMEN: Soft, nontender, liver spleen not palpable, no masses palpable. PSYCH: [Alert and oriented x3; mood and affect slightly anxious l. MUSCULOSKELETAL:No Clubbing/cyanosis;muscles-grossly intact EXTREMITIES: Shiny skin lower extremity. Evidence of necrobiosis lipoidica. G eneralized tenderness left lower extremity lower half. Evidence of ischemic and fungal nails. NEUROLOGICAL: Cranial nerves grossly intact; no facial asymmetry, power and hyper sensation lower extremity grossly intact. INVESTIGATIONS, reviewed in the clinical context: October 17: White count 20.1 hemoglobin 1.4 platelets 154 INR 2.4 sodium 132 potassium 6 BUN 57 creatinine 3.47 lactic acidosis 3.5 AST 08/06/2008 ALT 2181 White count 31.4 hemoglobin 15.4 platelets 267 sodium 139 potassium 6.2 bicarbonate 12 BUN 41 creatinine 2.81 lactic acid 11.6 AST 494 ALT 240 troponin I 0.640, 2.4 EKG tracing personally reviewed by me-intraventricular block. Sinus rhythm. First-degree AV block. Left lower extremity venous Doppler: DVT in the common femoral vein. Chest x-ray film personally reviewed by me-cardiomegaly. Lungs clear Gallbladder ultrasound: Gallbladder filled with stones. Possible hepatic steatosis. Arterial Doppler results discussed with Dr. Mike: No evidence of vascular compromise Assessment and plan: -Acute DVT of the left common femoral vein, likely precipitated from acute gastroenteritis and decreased activity. IV heparin monitoring. KAYDEN stockings. -Choledocholithiasis. Asymptomatic. -Episode of acute food poisoning yesterday. Self-limited. -Acute hepatitis. LFTs worsening Likely ischemic.: Worsening Follow-up with GI -Troponin anemia, likely from hemodynamic mismatch. Setting of acute kidney injury. No chest pain. IV heparin -CAD with a history of stent Aspirin 81 mg daily -Diabetes mellitus type 2, chronically on insulin Follow Accu-Cheks and sliding scale insulin. Start Levemir 15 units at night -Hyperlipidemia Given the elevated LFTs hold Zocor. -Essential hypertension Currently blood pressure is running low likely because of dehydration from nausea vomiting yesterday. Hold off Norvasc -Lower extremity edema possibly from Norvasc KAYDEN stockings, bilateral -Acute kidney injury, ATN from sepsis and prerenal from nausea vomiting: Worsening Patient's creatinine was 1.7 on August 25. IV fluids -Metabolic acidosis from acute on chronic kidney disease: Start respond Sodium bicarbonate drip at 50 mL an hour -Chronic kidney disease stage III from diabetic nephropathy and hypertensive nephrosclerosis Follow renal function. Creatinine 1.7 in August 2021 -Hyperkalemia from metabolic acidosis: Slow to respond Renal diet. Lokelma. Sodium bicarbonate drip. -Anxiety not otherwise specified Xanax 0.25 mg by mouth twice a day Continue IV heparin. IV bicarbonate drip increased. Strict I's and O's. IV Unasyn and IV daptomycin. ID was consulted today. Discussed with patient. Pending 2-D echocardiogram.
--- NOTE | 2021-10-17 14:05 | P.CNPUL ---
History of Present Illness Consult date: 10/17/21 Requesting physician: Derick Johnson Reason for consult: other (ICU management) Chief complaint: Nausea vomiting and diarrhea History of present illness: This is a 66-year-old white male with history of multiple medical problems including three-vessel coronary artery disease, ischemic cardiomyopathy and LV dysfunction, declined AICD placement in the past. Patient was seen yesterday at [facility] in [place], and he felt that he may have had food poisoning as he presented mostly with symptoms nausea vomiting and diarrhea. Patient was noted to have multiple abnormal labs, however further workup revealed evidence of left lower extremity DVT. Patient was transferred to [facility], and he was noted to have left lower extremity DVT, many abnormal labs including CBC showing leukocytosis with WBC count of 24.8. Elevated INR of 1.8. Elevated potassium of 6.5. Elevated BUN of 53 and creatinine of 3.29. Patient was also noted to be acidotic with an anion gap metabolic acidosis of 17. Elevated total bilirubin of 2.8, elevated liver enzymes with AST of 3128 and elevated ALT of 1450. Elevated troponin of 2.46. Elevated BNP of 57,000. And elevated lactic acid of 5.6. Considering the multiple abnormalities noted, patient was seen by many consultants. And he had extensive workup over the last 24 hours. The workup included a chest x-ray which showed cardiomegaly, and minimal basilar atelectasis. Ultrasound of the gallbladder showed evidence of cholelithiasis, and radiologist raised the possibility of cholecystitis with underlying hepatocellular disease and hepatic steatosis VQ scan was nondiagnostic. Patient had abdominal bladder ultrasound and this is pending. Patient was seen by vascular surgery for DVT, and the recommendation was basically continue heparin, no surgical intervention was felt to be necessary patient was seen by general surgery for his cholelithiasis, and the recommendation was observation and watch him closely, patient did not have clinical symptoms of cholecystitis. Patient was seen by cardiology for his LV dysfunction and history of ischemic cardiomyopathy, the recommendation was supportive care measures, high surgical risk. Avoid surgery unless it is absolutely necessary, seen by nephrology for his acute kidney injury felt to be secondary to hypotension with oligoria, and the recommendation was to check a bladder scan, rule out urinary retention, and recommended bicarb drip. And recommended mostly renal ultrasound and avoiding nephrotoxic agents considering his complex multiple medical problems, I was notified about this patient by the admitting physician Dr. Johnson, and I arranged for the patient to be admitted to the ICU. In the meantime I'm recommending that we follow the recommendation of different consultants on the case and monitor the patient closely. In the meantime continue heparin. And continue antibiotics. Patient will be seen by infectious disease on consultation. Review of Systems GEN.: Weakness and fatigue. EYES: Negative HEENT: Negative NECK: Negative RESPIRATORY: Negative CARDIOVASCULAR: As noted in HPI GASTROINTESTINAL: Intermittent episodes of nausea vomiting or diarrhea. GENITOURINARY: Negative MUSCULOSKELETAL: Left leg pain LYMPHATICS: Negative HEMATOLOGICAL: Negative PSYCHIATRY: Negative NEUROLOGICAL: Negative Past Medical History Past Medical History: Coronary Artery Disease (CAD), Cancer, Diabetes Mellitus, Hyperlipidemia, Hypertension, Myocardial Infarction ([place]) Additional Past Medical History / Comment(s): skin cancer on nose August 2020 Last Myocardial Infarction Date:: 02/12/2019 History of Any Multi-Drug Resistant Organisms: None Reported Past Surgical History: Heart Catheterization, Heart Catheterization With Stent, Orthopedic Surgery Additional Past Surgical History / Comment(s): skin cancer removed from nose August 2020 Past Anesthesia/Blood Transfusion Reactions: No Reported Reaction Date of Last Stent Placement:: 2012 Past Psychological History: Anxiety Smoking Status: Never smoker Past Alcohol Use History: Occasional Past Drug Use History: None Reported - Past Family History Mother Family Medical History: Coronary Artery Disease (CAD), Diabetes Mellitus, Myocardial Infarction ([place]) Father Family Medical History: Diabetes Mellitus, Renal Disease family Additional Family Medical History / Comment(s): Mother with history of diabetes mellitus and CAD, father with history of heart disease and diabetes Medications and Allergies Home Medications Medication Instructions Recorded Confirmed Type Nitroglycerin Sl Tabs [Nitrostat] 0.4 mg SUBLINGUAL Q5M PRN 10/20/17 10/16/21 History Acetaminophen Tab [Tylenol] 325 mg PO Q6H PRN 08/22/21 10/16/21 History FLUoxetine HCL [PROzac] 20 mg PO DAILY 08/22/21 10/16/21 History Simvastatin [Zocor] 10 mg PO HS 08/22/21 10/16/21 History amLODIPine [Norvasc] 5 mg PO DAILY 08/22/21 10/16/21 History ALPRAZolam [Xanax] 0.25 mg PO BID 10/16/21 10/16/21 History Aspirin 81 mg PO DAILY 10/16/21 10/16/21 History Furosemide [Lasix] 40 mg PO DAILY 10/16/21 10/16/21 History Insulin NPH Human Isophane 20 units SQ BID PRN 10/16/21 10/16/21 History [Novolin N] Spironolactone 50 mg PO DAILY 10/16/21 10/16/21 History Allergies Allergy/AdvReac Type Severity Reaction Status Date / Time [facility]fl[facility] Allergy Rash/Hives Verified 10/16/21 10:28 Physical Exam Vitals: Vital Signs Temp Pulse Pulse Resp BP BP Pulse Ox 10/17/21 13:00 64 15 87/59 91 L 10/17/21 12:00 98.2 F 64 16 97/62 93 L 10/17/21 11:00 66 20 83/60 92 L 10/17/21 10:00 66 14 89/61 90 L 10/17/21 09:00 68 16 99/64 91 L 10/17/21 08:00 98.4 F 68 15 100/63 90 L 10/17/21 07:57 94 L 10/17/21 07:00 70 16 101/67 99 10/17/21 06:00 71 12 103/66 90 L 10/17/21 05:00 70 16 91/63 91 L 10/17/21 04:00 98.1 F 70 24 110/83 93 L 10/17/21 03:30 71 18 108/68 91 L 10/17/21 03:00 73 12 119/77 93 L 10/17/21 02:30 71 17 103/60 92 L 10/17/21 02:00 70 22 104/60 92 L 10/17/21 01:30 72 21 118/74 91 L 10/17/21 01:00 70 18 96/62 95 10/17/21 00:30 70 21 114/75 92 L 10/17/21 00:00 98.6 F 71 15 90/75 89 L 10/16/21 23:30 71 12 86/57 90 L 10/16/21 23:00 71 18 121/76 93 L 10/16/21 22:30 72 12 96/58 94 L 10/16/21 22:00 69 23 107/76 93 L 10/16/21 21:30 69 15 109/72 93 L 10/16/21 21:16 98.2 F 68 18 109/72 10/16/21 20:30 93 L 10/16/21 20:25 97 10/16/21 20:17 82 L 10/16/21 20:15 97.7 F 70 18 92/63 80 L 10/16/21 18:45 22 10/16/21 18:00 98.9 F 70 22 113/70 92 L 10/16/21 16:51 66 18 100/69 98 Intake and Output 10/16/21 10/17/21 10/17/21 22:59 06:59 14:59 Intake Total 437.436 512.564 500 Balance 437.436 512.564 500 Intake: IV 50 400 350 Dextrose 5% in Water 1, 50 400 350 000 ml @ 50 mls/hr IV . Q21H VAN with Sodium Bicarb (1 Meq/ml) 50 ml Rx#:[id number] Intake, IV Titration 387.436 112.564 Amount Calcium Gluconate in NaCl 100 1 gm In Saline 1 100ml. bag @ 100 mls/hr IVPB ONCE ONE Rx#:[id number] Cefepime 1 gm In Sodium 50 Chloride 0.9% 50 ml @ 12. 5 mls/hr IVPB Q12HR [facility] Rx#:[id number] DAPTOmycin 500 mg In 100 Sodium Chloride 0.9% 50 ml @ 100 mls/hr IVPB Q48H [facility] Rx#:[id number] Heparin Sod,Pork in 0.45% 137.436 112.564 NaCl 25,000 unit In 0.45 % NaCl 1 250ml.bag @ 18 UNITS/KG/HR 16.329 mls/hr IV .[id number] [facility] Rx#: [id number] Oral 0 150 Other: Voiding Method Urinal Urinal Urinal # Voids 0 0 0 Weight 96.2 kg 101.2 kg GENERAL: Revealed a 66-year-old white male, in no distress. Head: Atraumatic, normocephalic. EYES: Pupils equal. Conjunctiva normal. HEENT: Normal nasal mucosa and normal oral mucosa, throat is clear. NECK: No neck masses no JVD no stridor. HEART: Normal S1 and S2, no S3 gallop. No murmur. LUNGS: Symmetrical chest expansion, clear throughout no crackles or rhonchi or wheezes. ABDOMEN: Soft nontender no megaly no rebound no guarding. PSYCH: Normal mood affect and normal mental status examination. l. MUSCULOSKELETAL: No deformities and no limitation in range of motion. EXTREMITIES: Left lower extremity is wrapped with compression stockings, evidence of chronic venous stasis changes noted in both lower extremities. No evidence of mottling. Good pulses palpable bilaterally NEUROLOGICAL: Alert and oriented 3 focal deficits. Skin: No rashes. Chronic venous stasis noted in both lower extremities. Results - Laboratory Findings CBC and BMP: 10/17/21 04:00 10/17/21 10:45 PT/INR, D-dimer PT 24.2 sec (9.0-12.0) H 10/17/21 04:00 INR 2.4 (<1.2) H 10/17/21 04:00 Abnormal lab findings: Abnormal Labs 10/16/21 10/16/21 10/16/21 07:25 07:25 07:25 WBC 31.4 H MCV 106.1 H MCHC 30.2 L RDW 17.3 H Neutrophils # (Manual) 29.20 H Lymphocytes # (Manual) 0.94 L Monocytes # (Manual) 1.26 H Basophils # (Manual) 0.31 H Metamyelocytes # (Man) Macrocytosis Marked A PT 18.4 H INR 1.8 H APTT Sodium Potassium 6.2 H* Carbon Dioxide 12 L BUN 41 H Creatinine 2.81 H Glucose 121 H POC Glucose (mg/dL) Plasma Lactic Acid Dwain Calcium Total Bilirubin 3.4 H AST 494 H ALT 240 H Troponin I Total Protein Albumin Urine Protein Urine Glucose (UA) Urine Ketones Urine Blood Urine Bilirubin Amorphous Sediment Urine Bacteria 10/16/21 10/16/21 10/16/21 07:25 07:25 08:27 WBC MCV MCHC RDW Neutrophils # (Manual) Lymphocytes # (Manual) Monocytes # (Manual) Basophils # (Manual) Metamyelocytes # (Man) Macrocytosis PT INR APTT Sodium Potassium 6.0 H Carbon Dioxide BUN Creatinine Glucose POC Glucose (mg/dL) Plasma Lactic Acid Dwain 11.6 H* Calcium Total Bilirubin AST ALT Troponin I 0.640 H* Total Protein Albumin Urine Protein Urine Glucose (UA) Urine Ketones Urine Blood Urine Bilirubin Amorphous Sediment Urine Bacteria 10/16/21 10/16/21 10/16/21 12:02 17:10 17:10 WBC MCV MCHC RDW Neutrophils # (Manual) Lymphocytes # (Manual) Monocytes # (Manual) Basophils # (Manual) Metamyelocytes # (Man) Macrocytosis PT INR APTT 138.9 H* Sodium Potassium Carbon Dioxide BUN Creatinine Glucose POC Glucose (mg/dL) Plasma Lactic Acid Dwain 7.5 H* 5.4 H* Calcium Total Bilirubin AST ALT Troponin I Total Protein Albumin Urine Protein Urine Glucose (UA) Urine Ketones Urine Blood Urine Bilirubin Amorphous Sediment Urine Bacteria 10/16/21 10/16/21 10/16/21 17:10 18:09 19:18 WBC MCV MCHC RDW Neutrophils # (Manual) Lymphocytes # (Manual) Monocytes # (Manual) Basophils # (Manual) Metamyelocytes # (Man) Macrocytosis PT INR APTT Sodium Potassium 6.5 H* Carbon Dioxide BUN Creatinine Glucose POC Glucose (mg/dL) 163 H Plasma Lactic Acid Dwain Calcium Total Bilirubin AST ALT Troponin I 2.460 H* Total Protein Albumin Urine Protein Urine Glucose (UA) Urine Ketones Urine Blood Urine Bilirubin Amorphous Sediment Urine Bacteria 10/16/21 10/16/21 10/16/21 19:42 20:19 21:06 WBC 24.8 H MCV 104.9 H MCHC 30.7 L RDW 17.5 H Neutrophils # (Manual) 22.30 H Lymphocytes # (Manual) Monocytes # (Manual) Basophils # (Manual) Metamyelocytes # (Man) 0.25 H Macrocytosis Marked A PT INR APTT Sodium Potassium Carbon Dioxide BUN Creatinine Glucose POC Glucose (mg/dL) 149 H Plasma Lactic Acid Dwain 5.6 H* Calcium Total Bilirubin AST ALT Troponin I Total Protein Albumin Urine Protein Urine Glucose (UA) Urine Ketones Urine Blood Urine Bilirubin Amorphous Sediment Urine Bacteria 10/16/21 10/16/21 10/16/21 21:06 21:06 21:17 WBC MCV MCHC RDW Neutrophils # (Manual) Lymphocytes # (Manual) Monocytes # (Manual) Basophils # (Manual) Metamyelocytes # (Man) Macrocytosis PT INR APTT Sodium 135 L Potassium 6.5 H* Carbon Dioxide 15 L BUN 53 H Creatinine 3.29 H Glucose 174 H POC Glucose (mg/dL) 239 H Plasma Lactic Acid Dwain 5.6 H* Calcium 8.1 L Total Bilirubin 2.8 H AST 3128 H ALT 1450 H Troponin I Total Protein Albumin Urine Protein Urine Glucose (UA) Urine Ketones Urine Blood Urine Bilirubin Amorphous Sediment Urine Bacteria 10/16/21 10/17/21 10/17/21 23:03 00:08 00:08 WBC MCV MCHC RDW Neutrophils # (Manual) Lymphocytes # (Manual) Monocytes # (Manual) Basophils # (Manual) Metamyelocytes # (Man) Macrocytosis PT INR APTT 49.0 H Sodium Potassium Carbon Dioxide BUN Creatinine Glucose POC Glucose (mg/dL) Plasma Lactic Acid Dwain 4.1 H* Calcium Total Bilirubin AST ALT Troponin I Total Protein Albumin Urine Protein 3+ H Urine Glucose (UA) Trace H Urine Ketones Trace H Urine Blood Trace H Urine Bilirubin 1+ H Amorphous Sediment Moderate H Urine Bacteria Rare H 10/17/21 10/17/21 10/17/21 01:10 04:00 04:00 WBC MCV MCHC RDW Neutrophils # (Manual) Lymphocytes # (Manual) Monocytes # (Manual) Basophils # (Manual) Metamyelocytes # (Man) Macrocytosis PT 24.2 H INR 2.4 H APTT 47.3 H Sodium 132 L Potassium 6.1 H* 6.0 H Carbon Dioxide 14 L BUN 57 H Creatinine 3.47 H Glucose 203 H POC Glucose (mg/dL) Plasma Lactic Acid Dwain Calcium 7.8 L Total Bilirubin 2.7 H AST 4309 H ALT 2181 H Troponin I Total Protein 6.2 L Albumin 3.4 L Urine Protein Urine Glucose (UA) Urine Ketones Urine Blood Urine Bilirubin Amorphous Sediment Urine Bacteria 10/17/21 10/17/21 10/17/21 04:00 04:00 07:00 WBC 20.1 H MCV 104.4 H MCHC 30.8 L RDW 17.4 H Neutrophils # (Manual) 18.60 H Lymphocytes # (Manual) Monocytes # (Manual) Basophils # (Manual) Metamyelocytes # (Man) Macrocytosis PT INR APTT Sodium Potassium Carbon Dioxide BUN Creatinine Glucose POC Glucose (mg/dL) 217 H Plasma Lactic Acid Dwain 3.5 H* Calcium Total Bilirubin AST ALT Troponin I Total Protein Albumin Urine Protein Urine Glucose (UA) Urine Ketones Urine Blood Urine Bilirubin Amorphous Sediment Urine Bacteria 10/17/21 10/17/21 10/17/21 07:42 10:45 10:45 WBC MCV MCHC RDW Neutrophils # (Manual) Lymphocytes # (Manual) Monocytes # (Manual) Basophils # (Manual) Metamyelocytes # (Man) Macrocytosis PT INR APTT Sodium Potassium 5.7 H Carbon Dioxide BUN Creatinine Glucose POC Glucose (mg/dL) Plasma Lactic Acid Dwain 3.1 H* 3.0 H* Calcium Total Bilirubin AST ALT Troponin I Total Protein Albumin Urine Protein Urine Glucose (UA) Urine Ketones Urine Blood Urine Bilirubin Amorphous Sediment Urine Bacteria 10/17/21 11:44 WBC MCV MCHC RDW Neutrophils # (Manual) Lymphocytes # (Manual) Monocytes # (Manual) Basophils # (Manual) Metamyelocytes # (Man) Macrocytosis PT INR APTT Sodium Potassium Carbon Dioxide BUN Creatinine Glucose POC Glucose (mg/dL) 194 H Plasma Lactic Acid Dwain Calcium Total Bilirubin AST ALT Troponin I Total Protein Albumin Urine Protein Urine Glucose (UA) Urine Ketones Urine Blood Urine Bilirubin Amorphous Sediment Urine Bacteria - Diagnostic Findings Chest x-ray: image reviewed (As noted in HPI.) U/S of Legs: image reviewed (As noted in HPI.) Assessment and Plan Assessment: Impression: Acute deep vein thromboses involving left lower extremity. Choledocholithiasis. No clinical evidence of cholecystitis. Acute hepatitis. Acute kidney injury possibly acute on chronic kidney disease. Could very well be cardiorenal in nature. Coronary artery disease and history of severe ischemic cardiomyopathy and LV dysfunction Type 2 diabetes. Dyslipidemia. Benign essential hypertension. Acute anion gap metabolic acidosis, multifactorial, but mostly secondary to his acute kidney injury. Acute hyperkalemia secondary to acute kidney injury. Recommendation: Agree with heparin. Continue bicarb drip. Empiric antibiotics but with recommended infectious disease to see on consultation. Agree with treatment for his hyperkalemia and agree with renal ultrasound. Continue to monitor liver enzymes. Patient was seen by gastroenterology. Avoid nephrotoxic agents. Monitor blood sugars closely and address accordingly. Different notes from different consultants were reviewed Continue to monitor in the ICU. Prognosis is relatively guarded. Time with Patient: Greater than 30
--- NOTE | 2021-10-17 14:13 | US ---
EXAMINATION TYPE: US kidneys/renal and bladder DATE OF EXAM: 10/17/2021 COMPARISON: US CLINICAL HISTORY: YEIMY. YEIMY. EXAM MEASUREMENTS: Right Kidney: 10.1 x 5.9 x 6.2 cm Left Kidney: 10.8 x 5.2 x 5.4 cm Limited due to gas and body habitus. Right Kidney: Hypoechoic area seen lower pole: 1.8 x 1.2 x 1.2 cm., Findings felt likely to represent simple cyst Left Kidney: No hydronephrosis or masses seen. Bladder: Not fully distended, limited evaluation. Possible thickened bladder wall measuring 0.57 cm. Bilateral Jets seen: No Ascites seen within the RUQ. Kidneys show normal cortical medullary differentiation IMPRESSION: Exam is somewhat limited. There is no evident hydronephrosis. Lack of bladder distention may be the e tiology of thickened bladder wall appearance, correlate to exclude cystitis. Minimal ascites present.
--- NOTE | 2021-10-17 14:56 | US ---
EXAMINATION TYPE: US arterial LE multi level DATE OF EXAM: 10/16/2021 10:40 AM CLINICAL HISTORY: pain. left leg pain for 2 days. discoloration, redness bilateral lower legs. histor y of 3 cardiac stents and angioplasty x 2 Doppler Waveforms: Right: Monophasic to biphasic Left: Monophasic biphasic Ankle-Brachial Indices: Right: CNO Left: deferred due to recent diagnosis of DVT left leg Toe Brachial Indices: not accurate, difficult to obtain due to patient movement Right: 0.26 Left: 0.19 IMPRESSION: Abnormal study. Further workup and follow-up advised.
[2021-10-17 16:37] LABS: Glucose,Whole Blood 140 mg/dL (75-99)
--- NOTE | 2021-10-17 16:59 | MR ---
MRCP HISTORY: Choledocholithiasis Multiplanar multisequence imaging obtained through the biliary system. Three-dimensional reconstructi ons performed on an alternate workstation and reviewed. Correlation ultrasound gallbladder 10/16/2021 Gallbladder shows multiple luminal stones consistent with the ultrasound findings. There is extensive motion, artifact on the exam. Difficult to exclude choledocholithiasis. No dilated ducts are evident however. The liver is enlarged. Spleen is borderline enlarged. There is ascites present about the li umesh and spleen. The pancreas shows no dilated duct or evident mass. No retroperitoneal adenopathy. Aorta shows normal caliber. Lung bases show some questionable atelectatic change with associated right pleural effusion . Adrenal glands show no mass. Kidneys show some cortical cysts, right lower pole lesion measures 15 mm, upper pole left kidney cyst measures 11 mm The heart is enlarged. IMPRESSION: There are limitations the exam. Cholelithiasis. Hepatosplenomegaly. Cardiomegaly. Right p leural effusion, ascites.
--- NOTE | 2021-10-17 17:55 | CA ---
Transthoracic Echo Report Name: Jabier Mitchell Age: 66 Gender: M : 1955 Exam Date: 10/16/2021 11:33 Exam Location: [facility] Ht (in): 60 Wt (lb): 200 Ordering Physician: Jarred Abdi Attending/Referring Phys: [id number], Trin[place] Delivery Clerk Syeda Alvarez, LORIE Procedure CPT: Indications: sob Cardiac Hx: Hx Cardiomyopathy, Phtn, TN, DM Technical Quality: Good Contrast 1: N/A Total Dose (mL): Contrast 2: Total Dose (mL): MEASUREMENTS (Male / Female) Normal Values 2D ECHO LV Diastolic Diameter PLAX 5.5 cm 4.2 - 5.9 / 3.9 - 5.3 cm LV Systolic Diameter PLAX 5.3 cm IVS Diastolic Thickness 1.6 cm 0.6 - 1.0 / 0.6 - 0.9 cm LVPW Diastolic Thickness 1.7 cm 0.6 - 1.0 / 0.6 - 0.9 cm LV Relative Wall Thickness 0.6 RV Internal Dim ED PLAX 4.0 cm LA Systolic Diameter LX 5.0 cm 3.0 - 4.0 / 2.7 - 3.8 cm LA Volume 95.6 cm??? 18 - 58 / 22 - 52 cm??? M-MODE Aortic Root Diameter MM 3.3 cm LA Systolic Diameter MM 4.9 cm LA Ao Ratio MM 1.5 AV Cusp Separation MM 2.0 cm DOPPLER MV E' Velocity 1.9 cm/s TR Peak Velocity 315.7 cm/s TR Peak Gradient 39.9 mmHg Right Ventricular Systolic Press 44.6 mmHg FINDINGS Left Ventricle Severely reduced global left ventricular systolic function. Left ventricular ejection fraction is estimated at 20-25% . Moderately increased septal wall thickness. Right Ventricle Moderate right ventricular dilatation. Mild pulmonary hypertension. Right Atrium Normal right atrial size. Left Atrium Moderately increased left atrial diameter. Severely increased left atrial volume. Mildly increased left atrial area. Mitral Valve Mild mitral regurgitation. Aortic Valve No aortic valve stenosis or regurgitation. Tricuspid Valve Structurally normal tricuspid valve. Mild tricuspid regurgitation. Pulmonic Valve Structurally normal pulmonic valve. Pericardium Normal pericardium. Aorta Normal size aortic root and proximal ascending aorta. CONCLUSIONS Mildly dilated left ventricle with the global decrease in contractility in is what ejection fraction of about 25%. Right ventricle is also dilated. There is mild mitral and tricuspid insufficiency. No pericardial effusion. Previewed by: Dr. Jarod Miranda MD (Electronically Signed) Final Date: 17 October 2021 17:54
[2021-10-17 18:40] LABS: Hepatitis A Antibody IgM Nonreactive (Nonreactive); Hepatitis B Core IgM Nonreactive (Nonreactive); Hepatitis B Surface Antigen Nonreactive (Nonreactive); Hepatitis C IgG Antibody Nonreactive (Nonreactive)
[2021-10-17] MEDS: INSULIN DETEMIR (LEVEMIR) 100 UNIT/ML SYR SQ SCH (20:07)
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
[2021-10-18] MEDS: INSULIN ASPART (NovoLOG) 100 UNIT/ML VIAL SQ SCH ×3 (07:00→17:16)
[2021-10-18 07:01] LABS: Glucose,Whole Blood 86 mg/dL (75-99)
[2021-10-18 07:20] LABS: INR 1.5 (<1.2); Partial Thromboplastin Time 63.5 sec (22.0-30.0); Prothrombin Time 15.7 sec (9.0-12.0)
[2021-10-18 07:31] LABS: Anisocytosis Slight; Basophils % (A) 0 %; Eosinophils % (A) 0 %; HCT 38.3 % (39.0-53.0); Hypochromasia Slight; Lymphocytes # (A) 0.6 k/uL (1.0-4.8); Lymphocytes % (A) 4 %; MCH 31.1 pg (25.0-35.0); MCHC 31.3 g/dL (31.0-37.0); Macrocytosis Slight; Mean Platelet Volume 9.5; Monocytes # (A) 0.5 k/uL (0-1.0); Monocytes % (A) 3 %; Neutrophils # (A) 14.7 k/uL (1.3-7.7); Neutrophils % (A) 92 %; Platelet Count 149 k/uL (150-450); Poikilocytosis Slight; RBC 3.86 m/uL (4.30-5.90); RDW 16.7 % (11.5-15.5)
[2021-10-18 07:35] LABS: MCV 99.2 fL (80.0-100.0)
[2021-10-18 07:53] LABS: Albumin 2.9 g/dL (3.5-5.0); Potassium 4.4 mmol/L (3.5-5.1); Total Bilirubin 2.9 mg/dL (0.2-1.3); Total Protein 5.6 g/dL (6.3-8.2)
[2021-10-18] MEDS: ASPIRIN 81 MG PO SCH (08:31)
[2021-10-18] MEDS: AMPICILLIN-SULBACTAM 3 GM in SODIUM CHLORIDE 0.9% 100 ML IVPB SCH ×2 (08:31→21:11)
--- NOTE | 2021-10-18 09:26 | P.PN ---
Subjective Patient is seen for follow-up for acute kidney injury mostly ATN initially oliguric currently nonoliguric. Patient was also acidotic and hyperkalemic. Potassium has improved. Patient is maintained on IV bicarb. Patient had about 250 mL of urine output last night. Serum creatinine 4.1 from 3.4 yesterday however urine output has picked up. Objective - Vital Signs Vital signs: Vital Signs Temp 97.7 F 10/18/21 08:00 Pulse 64 10/18/21 08:00 Resp 19 10/18/21 08:00 BP 92/79 10/18/21 08:00 Pulse Ox 95 10/18/21 07:00 FiO2 Intake & Output 10/17/21 10/18/21 10/18/21 18:59 06:59 18:59 Intake Total 900 1250 50 Balance 900 1250 50 Weight 104 kg Intake: IV 600 650 50 Dextrose 5% in Water 1, 600 650 50 000 ml @ 50 mls/hr IV . Q21H VAN with Sodium Bicarb (1 Meq/ml) 50 ml Rx#:[id number] Intake, IV Titration 350 Amount Ampicillin-Sulbactam 3 gm 100 In Sodium Chloride 0.9% 100 ml @ 200 mls/hr IVPB Q12HR VAN Rx#:[id number] Heparin Sod,Pork in 0.45% 250 NaCl 25,000 unit In 0.45 % NaCl 1 250ml.bag @ 18 UNITS/KG/HR 16.329 mls/hr IV .[id number] VAN Rx#: [id number] Oral 300 250 Other: Voiding Method Urinal Urinal # Voids 0 0 - Exam Awake, comfortable, not in any acute distress Examination of the heart S1 and S2 Examination of the lungs bilateral breath sounds are heard Abdomen is soft nontender Examination lower extremities shows edema 1+ left lower extremity. No edema right leg [employer] exam grossly intact - Labs CBC & Chem 7: 10/18/21 06:13 10/18/21 06:13 Labs: Abnormal Lab Results - Last 24 Hours (Table) 10/17/21 10/17/21 10/17/21 Range/Units 10:45 10:45 10:45 WBC (3.8-10.6) k/uL RBC (4.30-5.90) m/uL Hgb (13.0-17.5) gm/dL Hct (39.0-53.0) % RDW (11.5-15.5) % Plt Count (150-450) k/uL Neutrophils # (1.3-7.7) k/uL Lymphocytes # (1.0-4.8) k/uL PT (9.0-12.0) sec INR (<1.2) APTT (22.0-30.0) sec Sodium (137-145) mmol/L Potassium 5.7 H (3.5-5.1) mmol/L BUN (9-20) mg/dL Creatinine (0.66-1.25) mg/dL POC Glucose (mg/dL) (75-99) mg/dL Plasma Lactic Acid Dwain 3.0 H* (0.7-2.0) mmol/L Calcium (8.4-10.2) mg/dL Total Bilirubin (0.2-1.3) mg/dL AST (17-59) U/L ALT (4-49) U/L Total Protein (6.3-8.2) g/dL Albumin (3.5-5.0) g/dL Procalcitonin 25.80 H (0.02-0.09) ng/mL 10/17/21 10/17/21 10/17/21 Range/Units 11:44 13:49 16:36 WBC (3.8-10.6) k/uL RBC (4.30-5.90) m/uL Hgb (13.0-17.5) gm/dL Hct (39.0-53.0) % RDW (11.5-15.5) % Plt Count (150-450) k/uL Neutrophils # (1.3-7.7) k/uL Lymphocytes # (1.0-4.8) k/uL PT (9.0-12.0) sec INR (<1.2) APTT (22.0-30.0) sec Sodium (137-145) mmol/L Potassium (3.5-5.1) mmol/L BUN (9-20) mg/dL Creatinine (0.66-1.25) mg/dL POC Glucose (mg/dL) 194 H 140 H (75-99) mg/dL Plasma Lactic Acid Dwain 2.9 H* (0.7-2.0) mmol/L Calcium (8.4-10.2) mg/dL Total Bilirubin (0.2-1.3) mg/dL AST (17-59) U/L ALT (4-49) U/L Total Protein (6.3-8.2) g/dL Albumin (3.5-5.0) g/dL Procalcitonin (0.02-0.09) ng/mL 10/17/21 10/17/21 10/18/21 Range/Units 17:43 21:11 06:13 WBC (3.8-10.6) k/uL RBC (4.30-5.90) m/uL Hgb (13.0-17.5) gm/dL Hct (39.0-53.0) % RDW (11.5-15.5) % Plt Count (150-450) k/uL Neutrophils # (1.3-7.7) k/uL Lymphocytes # (1.0-4.8) k/uL PT 15.7 H (9.0-12.0) sec INR 1.5 H (<1.2) APTT 63.5 H (22.0-30.0) sec Sodium (137-145) mmol/L Potassium (3.5-5.1) mmol/L BUN (9-20) mg/dL Creatinine (0.66-1.25) mg/dL POC Glucose (mg/dL) (75-99) mg/dL Plasma Lactic Acid Dwain 2.5 H* 2.2 H* (0.7-2.0) mmol/L Calcium (8.4-10.2) mg/dL Total Bilirubin (0.2-1.3) mg/dL AST (17-59) U/L ALT (4-49) U/L Total Protein (6.3-8.2) g/dL Albumin (3.5-5.0) g/dL Procalcitonin (0.02-0.09) ng/mL 10/18/21 10/18/21 Range/Units 06:13 06:13 WBC 16.0 H (3.8-10.6) k/uL RBC 3.86 L (4.30-5.90) m/uL Hgb 12.0 L (13.0-17.5) gm/dL Hct 38.3 L (39.0-53.0) % RDW 16.7 H (11.5-15.5) % Plt Count 149 L (150-450) k/uL Neutrophils # 14.7 H (1.3-7.7) k/uL Lymphocytes # 0.6 L (1.0-4.8) k/uL PT (9.0-12.0) sec INR (<1.2) APTT (22.0-30.0) sec Sodium 135 L (137-145) mmol/L Potassium (3.5-5.1) mmol/L BUN 74 H (9-20) mg/dL Creatinine 4.12 H (0.66-1.25) mg/dL POC Glucose (mg/dL) (75-99) mg/dL Plasma Lactic Acid Dwain (0.7-2.0) mmol/L Calcium 7.0 L (8.4-10.2) mg/dL Total Bilirubin 2.9 H (0.2-1.3) mg/dL AST 749 H (17-59) U/L ALT 1351 H (4-49) U/L Total Protein 5.6 L (6.3-8.2) g/dL Albumin 2.9 L (3.5-5.0) g/dL Procalcitonin (0.02-0.09) ng/mL Microbiology - Last 24 Hours (Table) 10/16/21 21:06 Blood Culture - Preliminary Blood No Growth after 24 hours Assessment and Plan Assessment: 1. Acute kidney injury ATN secondary to hypotension currently oliguric, urine output now improved. No urine retention. 2. Anion gap metabolic acidosis secondary to acute kidney injury and lactic acidosis currently maintained on bicarb drip 3. Hyperkalemia associated with acute kidney injury metabolic acidosis, improved 3. Chronic kidney disease NKF stage III B with previous creatinine 1.7-2 mg/dL in August 2021 and as low as 1.1 and 1.2 in 2019. UA shows 3+ protein. Patient most likely has underlying diabetic kidney disease 4. Lactic acidosis 5. Elevated liver enzymes secondary to hypotension 6. Cardiomyopathy with ejection fraction 20-25% 7. Left leg DVT with possible PE maintained on IV heparin Plan: Continue IV bicarb for 1 more day Avoid nephrotoxic agents Repeat labs in a.m.
--- NOTE | 2021-10-18 09:49 | P.PN ---
Subjective Progress Note Date: 10/18/21 Principal diagnosis: Elevated LFTs, acute ischemic hepatitis This is a 66-year-old male with a past medical history including coronary artery disease status post cardiac stent, 5 MIs, diabetes mellitus, hyperlipidemia, hypertension, skin cancer and previous left fourth toe amputation. The patient presented to the emergency department with complaints of left lower extremity pa in that started 2 days ago. Patient had a venous duplex that showed extensive left lower extremity DVT involving the left common femoral vein and superficial femoral vein. Vascular surgery was consulted for the above. He denies any previous history of DVT or pulmonary embolism. Denies any history of clotting disorder. 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 He is on a low-dose daily aspirin, denies any anticoagulation or antiplatelet therapy. States he does have some shortness of breath that was noted after he started fluids here. Patient denies any abdominal pain, states 2 days ago he did have some nausea and vomiting along with abdominal pain. Denies chest pain but states he does have some shortness of breath. He denies any previous liver disease. Denies any history of alcoholism, or fatty liver disease. 10/18/2021. Patient is seen and reexamined in the ICU. He continues to deny any abdominal pain, nausea or vomiting. He has been tolerating a clear liquid diet. He has continued to be hypotensive running 80s-90s/50s-70s. He denies any chest pain or shortness of breath. He initially was sitting up in the chair. He's been afebrile. Patient underwent MRCP yesterday impression states limitations of the exam. Cholelithiasis. Hepatosplenomegaly. Cardiomegaly. Right pleural effusion and ascites. Today's labs WBC 16 hemoglobin 12 platelet count 149,000 INR 1.5 sodium 135 potassium 4.4 BUN 74 creatinine 4.12 total bilirubin 2.9 AST 749 ALT 1351 alkaline phosphatase 53. Hepatitis panel nonreactive Objective - Vital Signs Vital signs: Vital Signs Temp 97.9 F 10/18/21 04:00 Pulse 67 10/18/21 07:00 Resp 23 10/18/21 07:00 BP 97/64 10/18/21 07:00 Pulse Ox 95 10/18/21 07:00 FiO2 Intake & Output 10/17/21 10/18/21 10/18/21 18:59 06:59 18:59 Intake Total 900 1250 Balance 900 1250 Weight 104 kg Intake: IV 600 650 Dextrose 5% in Water 1, 600 650 000 ml @ 50 mls/hr IV . Q21H VAN with Sodium Bicarb (1 Meq/ml) 50 ml Rx#:[id number] Intake, IV Titration 350 Amount Ampicillin-Sulbactam 3 gm 100 In Sodium Chloride 0.9% 100 ml @ 200 mls/hr IVPB Q12HR VAN Rx#:[id number] Heparin Sod,Pork in 0.45% 250 NaCl 25,000 unit In 0.45 % NaCl 1 250ml.bag @ 18 UNITS/KG/HR 16.329 mls/hr IV .[id number] VAN Rx#: [id number] Oral 300 250 Other: Voiding Method Urinal Urinal # Voids 0 0 - Exam General appearance: The patient is alert, oriented, appears in no acute distress. HET: Head is normocephalic and atraumatic. Conjunctiva pink. Sclera anicteric. Neck: Supple without lymphadenopathy. Abdomen: Soft, nontender, nondistended with bowel sounds. No guarding or rigidity. Extremities: Left lower extremity with swelling, multiple blisters. Skin: No rashes, no jaundice Neurological: No focal deficits. Alert and oriented x 3. - Labs CBC & Chem 7: 10/18/21 06:13 10/18/21 06:13 Labs: Abnormal Lab Results - Last 24 Hours (Table) 10/17/21 10/17/21 10/17/21 Range/Units 07:42 10:45 10:45 WBC (3.8-10.6) k/uL RBC (4.30-5.90) m/uL Hgb (13.0-17.5) gm/dL Hct (39.0-53.0) % RDW (11.5-15.5) % Plt Count (150-450) k/uL Neutrophils # (1.3-7.7) k/uL Lymphocytes # (1.0-4.8) k/uL PT (9.0-12.0) sec INR (<1.2) APTT (22.0-30.0) sec Sodium (137-145) mmol/L Potassium 5.7 H (3.5-5.1) mmol/L BUN (9-20) mg/dL Creatinine (0.66-1.25) mg/dL POC Glucose (mg/dL) (75-99) mg/dL Plasma Lactic Acid Dwain 3.1 H* (0.7-2.0) mmol/L Calcium (8.4-10.2) mg/dL Total Bilirubin (0.2-1.3) mg/dL AST (17-59) U/L ALT (4-49) U/L Total Protein (6.3-8.2) g/dL Albumin (3.5-5.0) g/dL Procalcitonin 25.80 H (0.02-0.09) ng/mL 10/17/21 10/17/21 10/17/21 Range/Units 10:45 11:44 13:49 WBC (3.8-10.6) k/uL RBC (4.30-5.90) m/uL Hgb (13.0-17.5) gm/dL Hct (39.0-53.0) % RDW (11.5-15.5) % Plt Count (150-450) k/uL Neutrophils # (1.3-7.7) k/uL Lymphocytes # (1.0-4.8) k/uL PT (9.0-12.0) sec INR (<1.2) APTT (22.0-30.0) sec Sodium (137-145) mmol/L Potassium (3.5-5.1) mmol/L BUN (9-20) mg/dL Creatinine (0.66-1.25) mg/dL POC Glucose (mg/dL) 194 H (75-99) mg/dL Plasma Lactic Acid Dwain 3.0 H* 2.9 H* (0.7-2.0) mmol/L Calcium (8.4-10.2) mg/dL Total Bilirubin (0.2-1.3) mg/dL AST (17-59) U/L ALT (4-49) U/L Total Protein (6.3-8.2) g/dL Albumin (3.5-5.0) g/dL Procalcitonin (0.02-0.09) ng/mL 10/17/21 10/17/21 10/17/21 Range/Units 16:36 17:43 21:11 WBC (3.8-10.6) k/uL RBC (4.30-5.90) m/uL Hgb (13.0-17.5) gm/dL Hct (39.0-53.0) % RDW (11.5-15.5) % Plt Count (150-450) k/uL Neutrophils # (1.3-7.7) k/uL Lymphocytes # (1.0-4.8) k/uL PT (9.0-12.0) sec INR (<1.2) APTT (22.0-30.0) sec Sodium (137-145) mmol/L Potassium (3.5-5.1) mmol/L BUN (9-20) mg/dL Creatinine (0.66-1.25) mg/dL POC Glucose (mg/dL) 140 H (75-99) mg/dL Plasma Lactic Acid Dwain 2.5 H* 2.2 H* (0.7-2.0) mmol/L Calcium (8.4-10.2) mg/dL Total Bilirubin (0.2-1.3) mg/dL AST (17-59) U/L ALT (4-49) U/L Total Protein (6.3-8.2) g/dL Albumin (3.5-5.0) g/dL Procalcitonin (0.02-0.09) ng/mL 10/18/21 10/18/21 10/18/21 Range/Units 06:13 06:13 06:13 WBC 16.0 H (3.8-10.6) k/uL RBC 3.86 L (4.30-5.90) m/uL Hgb 12.0 L (13.0-17.5) gm/dL Hct 38.3 L (39.0-53.0) % RDW 16.7 H (11.5-15.5) % Plt Count 149 L (150-450) k/uL Neutrophils # 14.7 H (1.3-7.7) k/uL Lymphocytes # 0.6 L (1.0-4.8) k/uL PT 15.7 H (9.0-12.0) sec INR 1.5 H (<1.2) APTT 63.5 H (22.0-30.0) sec Sodium 135 L (137-145) mmol/L Potassium (3.5-5.1) mmol/L BUN 74 H (9-20) mg/dL Creatinine 4.12 H (0.66-1.25) mg/dL POC Glucose (mg/dL) (75-99) mg/dL Plasma Lactic Acid Dwain (0.7-2.0) mmol/L Calcium 7.0 L (8.4-10.2) mg/dL Total Bilirubin 2.9 H (0.2-1.3) mg/dL AST 749 H (17-59) U/L ALT 1351 H (4-49) U/L Total Protein 5.6 L (6.3-8.2) g/dL Albumin 2.9 L (3.5-5.0) g/dL Procalcitonin (0.02-0.09) ng/mL Microbiology - Last 24 Hours (Table) 10/16/21 21:06 Blood Culture - Preliminary Blood No Growth after 24 hours Assessment and Plan (1) Cholelithiasis Narrative/Plan: 66-year-old male who presented to the emergency department with complaints of left lower extremity pain. He has multiple comorbidities including history of coronary artery disease status post stenting and 5 MIs. He came in with elev ated lactic acid, elevated troponins, white count, and elevation in his total bilirubin, LFTs. Gallbladder ultrasound was obtained showing multiple gallstones without any CBD dilation. Also stating possible underlying hepatocellular disease due to echotexture of liver. Patient denies any current abdominal pain. He did state that he did have some abdominal discomfort yesterday with some nausea and vomiting. He is more concerned with some shortness of breath and left lower extremity pain for which he was diagnosed with a DVT. Due to elevated total bilirubin and LFTs gastroenterology was asked to evaluate patient for possible choledocholithiasis. Patient no longer is experiencing pain however may have passed the stone. We'll await repeat labs and MRCP. Patient currently on a heparin drip. No plans at this time for ERCP underlying elevated LFTs likely related to acute ischemic hepatitis from sepsis and hypotension. MRCP reports cholelithiasis, hepatosplenomegaly. Cardiomegaly. Right pleural effusion, ascites. Current Visit: Yes Status: Acute Code(s): K80.20 - CALCULUS OF GALLBLADDER W/O CHOLECYSTITIS W/O OBSTRUCTION SNOMED Code(s): 068128551 (2) Elevated LFTs Narrative/Plan: Acute elevation and AST ALT. Patient with possible underlying hepatocellular disease related to fatty liver. Acute rise in LFTs likely related to acute ischemic hepatitis related to sepsis and hypotension. No plans at this time to proceed with ERCP. Avoid hepatotoxic medications. We will continue to monitor. MRCP ordered Current Visit: Yes Status: Acute Code(s): R79.89 - OTHER SPECIFIED ABNORMAL FINDINGS OF BLOOD CHEMISTRY SNOMED Code(s): 388454768 (3) Type 2 diabetes mellitus Current Visit: Yes Status: Acute Code(s): E11.9 - TYPE 2 DIABETES MELLITUS WITHOUT COMPLICATIONS SNOMED Code(s): 50852622 (4) Coronary artery disease Current Visit: Yes Status: Acute Code(s): I25.10 - ATHSCL HEART DISEASE OF [place] CORONARY ARTERY W/O ANG PCTRS SNOMED Code(s): 46604379 (5) DVT, lower extremity Current Visit: Yes Status: Acute Code(s): I82.409 - ACUTE EMBOLISM AND THOMBOS UNSP DEEP VN UNSP LOWER EXTREMITY SNOMED Code(s): 327106784 (6) Elevated troponin Current Visit: Yes Status: Acute Code(s): R74.8 - ABNORMAL LEVELS OF OTHER SERUM ENZYMES SNOMED Code(s): 331372539 (7) Lactic acidosis Current Visit: Yes Status: Acute Code(s): E87.2 - ACIDOSIS SNOMED Code(s): 09204052 (8) Hypotension Current Visit: Yes Status: Acute Code(s): I95.9 - HYPOTENSION, UNSPECIFIED SNOMED Code(s): 12199131 (9) Leukocytosis Narrative/Plan: Infectious disease on consult Current Visit: Yes Status: Acute Code(s): D72.829 - ELEVATED WHITE BLOOD CELL COUNT, UNSPECIFIED SNOMED Code(s): 440972306 Plan: 1. Continue symptomatic and supportive care 2. Patient may advance to low-fat diet 3. Repeat CBC, CMP, INR daily 4. Cardiology consulted for cardiac clearance for possible ERCP if needed however elevated LFTs likely related to underlying acute ischemic hepatitis 5. MRCP reviewed 6. Hepatitis panel ordered 7. No plans at this time for ERCP 8. Appreciate general surgery recommendations 9. Avoid hepatotoxic medications Thank you for this consultation, we will continue to follow Dr. Josefina Leblanc I agree with the dictator's note, documented as a scribe by Mery Clancy.
--- NOTE | 2021-10-18 09:58 | XR ---
EXAMINATION TYPE: XR chest 1V DATE OF EXAM: 10/18/2021 COMPARISON: Chest x-ray 10/16/2021 HISTORY: Congestive heart failure TECHNIQUE: Single frontal view of the chest is obtained. FINDINGS: Lung volumes are low. Bandlike area of increased attenuation is present in the left midlun g which has developed in the interval, there is thickening the minor fissure. Heart is enlarged. No e vident pneumothorax. There is blunting the right costophrenic angle. Interstitium is mildly increased . There are overlying leads. IMPRESSION: Findings may be indicative of pulmonary venous hypertension and interstitial edema, ther e is associated right pleural effusion
--- NOTE | 2021-10-18 10:00 | P.PN ---
Subjective Progress Note Date: 10/18/21 Principal diagnosis: Left lower extremity DVT Patient is seen and examined today as a follow-up for left lower extremity DVT. He remains in the ICU. He remains hypotensive. Patient was initially sitting up in a chair this morning with legs dependent. He has developed multiple blisters on the left lower extremity with increased swelling. Doppler signals present. He denies any acute changes through the night. Denies shortness of breath chest pain, abdominal pain, nausea vomiting fevers or chills. WBC continues to trend down. Platelets are also trending down we'll need to continue to monitor. He remains on IV heparin drip at this time. Objective - Vital Signs Vital signs: Vital Signs Temp 97.9 F 10/18/21 04:00 Pulse 67 10/18/21 07:00 Resp 23 10/18/21 07:00 BP 97/64 10/18/21 07:00 Pulse Ox 95 10/18/21 07:00 FiO2 Intake & Output 10/17/21 10/18/21 10/18/21 18:59 06:59 18:59 Intake Total 900 1250 Balance 900 1250 Weight 104 kg Intake: IV 600 650 Dextrose 5% in Water 1, 600 650 000 ml @ 50 mls/hr IV . Q21H VAN with Sodium Bicarb (1 Meq/ml) 50 ml Rx#:[id number] Intake, IV Titration 350 Amount Ampicillin-Sulbactam 3 gm 100 In Sodium Chloride 0.9% 100 ml @ 200 mls/hr IVPB Q12HR VAN Rx#:[id number] Heparin Sod,Pork in 0.45% 250 NaCl 25,000 unit In 0.45 % NaCl 1 250ml.bag @ 18 UNITS/KG/HR 16.329 mls/hr IV .[id number] [facility] Rx#: [id number] Oral 300 250 Other: Voiding Method Urinal Urinal # Voids 0 0 - Exam General appearance: The patient is alert, oriented, appears in no acute distress. HET: Head is normocephalic and atraumatic. Conjunctiva pink. Sclera anicteric. Neck: Supple without lymphadenopathy. Abdomen: Soft, nontender, nondistended with bowel sounds. No guarding or rigidity. Extremities: Left lower extremity with swelling, multiple fluid-filled blisters. Palpable bilateral femoral pulses. Nonpalpable DP and PT pulses. Positive DP and PT Doppler signal. Left fourth toe previous amputation site well healed. Skin: No rashes, no jaundice Neurological: No focal deficits. Alert and oriented x 3. - Labs CBC & Chem 7: 10/18/21 06:13 10/18/21 06:13 Labs: Abnormal Lab Results - Last 24 Hours (Table) 10/17/21 10/17/21 10/17/21 Range/Units 10:45 10:45 10:45 WBC (3.8-10.6) k/uL RBC (4.30-5.90) m/uL Hgb (13.0-17.5) gm/dL Hct (39.0-53.0) % RDW (11.5-15.5) % Plt Count (150-450) k/uL Neutrophils # (1.3-7.7) k/uL Lymphocytes # (1.0-4.8) k/uL PT (9.0-12.0) sec INR (<1.2) APTT (22.0-30.0) sec Sodium (137-145) mmol/L Potassium 5.7 H (3.5-5.1) mmol/L BUN (9-20) mg/dL Creatinine (0.66-1.25) mg/dL POC Glucose (mg/dL) (75-99) mg/dL Plasma Lactic Acid Dwain 3.0 H* (0.7-2.0) mmol/L Calcium (8.4-10.2) mg/dL Total Bilirubin (0.2-1.3) mg/dL AST (17-59) U/L ALT (4-49) U/L Total Protein (6.3-8.2) g/dL Albumin (3.5-5.0) g/dL Procalcitonin 25.80 H (0.02-0.09) ng/mL 10/17/21 10/17/21 10/17/21 Range/Units 11:44 13:49 16:36 WBC (3.8-10.6) k/uL RBC (4.30-5.90) m/uL Hgb (13.0-17.5) gm/dL Hct (39.0-53.0) % RDW (11.5-15.5) % Plt Count (150-450) k/uL Neutrophils # (1.3-7.7) k/uL Lymphocytes # (1.0-4.8) k/uL PT (9.0-12.0) sec INR (<1.2) APTT (22.0-30.0) sec Sodium (137-145) mmol/L Potassium (3.5-5.1) mmol/L BUN (9-20) mg/dL Creatinine (0.66-1.25) mg/dL POC Glucose (mg/dL) 194 H 140 H (75-99) mg/dL Plasma Lactic Acid Dwain 2.9 H* (0.7-2.0) mmol/L Calcium (8.4-10.2) mg/dL Total Bilirubin (0.2-1.3) mg/dL AST (17-59) U/L ALT (4-49) U/L Total Protein (6.3-8.2) g/dL Albumin (3.5-5.0) g/dL Procalcitonin (0.02-0.09) ng/mL 10/17/21 10/17/21 10/18/21 Range/Units 17:43 21:11 06:13 WBC (3.8-10.6) k/uL RBC (4.30-5.90) m/uL Hgb (13.0-17.5) gm/dL Hct (39.0-53.0) % RDW (11.5-15.5) % Plt Count (150-450) k/uL Neutrophils # (1.3-7.7) k/uL Lymphocytes # (1.0-4.8) k/uL PT 15.7 H (9.0-12.0) sec INR 1.5 H (<1.2) APTT 63.5 H (22.0-30.0) sec Sodium (137-145) mmol/L Potassium (3.5-5.1) mmol/L BUN (9-20) mg/dL Creatinine (0.66-1.25) mg/dL POC Glucose (mg/dL) (75-99) mg/dL Plasma Lactic Acid Dwain 2.5 H* 2.2 H* (0.7-2.0) mmol/L Calcium (8.4-10.2) mg/dL Total Bilirubin (0.2-1.3) mg/dL AST (17-59) U/L ALT (4-49) U/L Total Protein (6.3-8.2) g/dL Albumin (3.5-5.0) g/dL Procalcitonin (0.02-0.09) ng/mL 10/18/21 10/18/21 Range/Units 06:13 06:13 WBC 16.0 H (3.8-10.6) k/uL RBC 3.86 L (4.30-5.90) m/uL Hgb 12.0 L (13.0-17.5) gm/dL Hct 38.3 L (39.0-53.0) % RDW 16.7 H (11.5-15.5) % Plt Count 149 L (150-450) k/uL Neutrophils # 14.7 H (1.3-7.7) k/uL Lymphocytes # 0.6 L (1.0-4.8) k/uL PT (9.0-12.0) sec INR (<1.2) APTT (22.0-30.0) sec Sodium 135 L (137-145) mmol/L Potassium (3.5-5.1) mmol/L BUN 74 H (9-20) mg/dL Creatinine 4.12 H (0.66-1.25) mg/dL POC Glucose (mg/dL) (75-99) mg/dL Plasma Lactic Acid Dwain (0.7-2.0) mmol/L Calcium 7.0 L (8.4-10.2) mg/dL Total Bilirubin 2.9 H (0.2-1.3) mg/dL AST 749 H (17-59) U/L ALT 1351 H (4-49) U/L Total Protein 5.6 L (6.3-8.2) g/dL Albumin 2.9 L (3.5-5.0) g/dL Procalcitonin (0.02-0.09) ng/mL Microbiology - Last 24 Hours (Table) 10/16/21 21:06 Blood Culture - Preliminary Blood No Growth after 24 hours Assessment and Plan Assessment: 1. Left lower extremity DVT 2. Positive lactic acid 3. Hypotension 4. Elevated troponins 5. Shortness of breath 6. Acute kidney injury 7. Ischemic cardiomyopathy with LV dysfunction. 8. Acute hepatitis likely from shock liver 9. Leukocytosis 10. Thrombocytopenia 11. History of coronary artery disease status post [place], cardiac stents 12. Diabetes mellitus 13. Previous left toe amputation for diabetic wound/infection Plan: 1. Continue heparin drip for now, plan will be to transition to oral anticoagulation 2. Continue to monitor CBC, platelets 3. If platelets continue to drop please consult hematology 4. Activity as tolerated and per recommendations from ICU/medical management 5. No indication for any vascular surgical intervention at this time. 6. Continue ICU/medical management 7. KAYDEN hose, thigh-high to left lower extremity 8. Blisters unroofed by Dr. Jamison with sterile suture removal kit Thank you for this consultation, we will continue to follow. The impression and plan of care has been dictated as directed. Dr. Steen I performed a history and examination of this patient, discussed the same with the dictator. I agree with the dictator's note ,documented as a scribe. Any additional findings or plans will be noted.
[2021-10-18] MEDS: DEXTROSE 5% IN WATER 1,000 ML with SODIUM BICARB (1 MEQ/ML) 150 ML IV SCH (10:10)
[2021-10-18 11:35] LABS: Glucose,Whole Blood 146 mg/dL (75-99)
[2021-10-18] MEDS: HYDROmorphone 0.5 MG/0.5 ML SYRINGE IVP PRN (11:41)
--- NOTE | 2021-10-18 12:23 | PN ---
PROGRESS NOTE Jabier is a 66-year-old gentleman with history of coronary artery disease, ischemic cardiomyopathy with severe LV dysfunction, chronic renal failure, who is admitted to the hospital with DVT, acute liver injury that we were consulted for preop cardiac evaluation. He is doing better today. AST, ALT have come down. INR is 1.5. On exam, heart rate is 65 beats per minute. Blood pressure is 104/60. Respiratory rate 18. Chest exam reveals good air entry bilaterally. Heart exam reveals first and second heart sounds. No gallop. Examination of extremities reveals mild edema. Peripheral pulses are felt. The patient is currently on aspirin, intravenous heparin, insulin. ASSESSMENT: 1. Ischemic cardiomyopathy. 2. Left leg deep vein thrombosis. 3. Acute liver injury. PLAN: We will hold Zocor at this time. We will hold the spironolactone and the amlodipine. His BUN and creatinine are still elevated, so once those improve and blood pressure is stable, we will consider starting him on beta blockers and ROSA MARIA inhibitors if we can. MMODL / IJN: [id number] /
--- NOTE | 2021-10-18 12:27 | P.PN ---
Subjective Progress Note Date: 10/18/21 CHIEF COMPLAINT: Left leg DVT HISTORY OF PRESENT ILLNESS: Surgical service following in regards to patient's gallstones. He denies any abdominal pain. Denies any nausea or vomiting. He is tolerating clear liquids. Remains on the IV heparin for his left leg DVT. MRCP limited exam. Cholelithiasis. Hepatosplenomegaly. Cardiomegaly. Right pleural effusion, ascites. Afebrile. Slight improvement in blood pressure. WBC is down from 20-16 hemoglobin 12 platelets 149 INR 1.5 creatinine 4.12. LFTs trending downwards. Hepatitis panel negative. PHYSICAL EXAM: VITAL SIGNS: Reviewed. GENERAL: Well-developed in no acute distress. HEENT: No sclera icterus. Extraocular movements grossly intact. Moist buccal mucosa. Head is atraumatic, normocephalic. ABDOMEN: Soft. Nondistended. Nontender. NEUROLOGIC: Alert and oriented. Cranial nerves II through XII grossly intact. ASSESSMENT: 1. Cholelithiasis. No abdominal pain. No significant sign of cholecystitis. 2. Left leg DVT 3. Elevated LFTs trending down. Patient had been hypotensive. PLAN: -Continue to monitor -No surgical intervention planned -Continue antibiotics -Continue supportive care Physician [employer] note has been reviewed by physician. Signing provider agrees with the documented findings, assessment, and plan of care. Objective - Vital Signs Vital signs: Vital Signs Temp 97.8 F 10/18/21 12:00 Pulse 65 10/18/21 12:00 Resp 10 L 10/18/21 12:00 BP 104/65 10/18/21 12:00 Pulse Ox 93 L 10/18/21 12:00 FiO2 Intake & Output 10/17/21 10/18/21 10/18/21 18:59 06:59 18:59 Intake Total 900 1250 400 Output Total 175 Balance 900 1250 225 Weight 104 kg Intake: IV 600 650 50 Dextrose 5% in Water 1, 600 650 50 000 ml @ 50 mls/hr IV . Q21H VAN with Sodium Bicarb (1 Meq/ml) 50 ml Rx#:[id number] Intake, IV Titration 350 350 Amount Ampicillin-Sulbactam 3 gm 100 100 In Sodium Chloride 0.9% 100 ml @ 200 mls/hr IVPB Q12HR [facility] Rx#:[id number] Dextrose 5% in Water 1, 250 000 ml @ 50 mls/hr IV . Q23H VAN with Sodium Bicarb (1 Meq/ml) 150 ml Rx#:[id number] Heparin Sod,Pork in 0.45% 250 NaCl 25,000 unit In 0.45 % NaCl 1 250ml.bag @ 18 UNITS/KG/HR 16.329 mls/hr IV .[id number] [facility] Rx#: [id number] Oral 300 250 Output: Urine 175 Other: Voiding Method Urinal Urinal Urinal # Voids 0 0 - Labs CBC & Chem 7: 10/18/21 06:13 10/18/21 06:13 Labs: Abnormal Lab Results - Last 24 Hours (Table) 10/17/21 10/17/21 10/17/21 Range/Units 10:45 13:49 16:36 WBC (3.8-10.6) k/uL RBC (4.30-5.90) m/uL Hgb (13.0-17.5) gm/dL Hct (39.0-53.0) % RDW (11.5-15.5) % Plt Count (150-450) k/uL Neutrophils # (1.3-7.7) k/uL Lymphocytes # (1.0-4.8) k/uL PT (9.0-12.0) sec INR (<1.2) APTT (22.0-30.0) sec Sodium (137-145) mmol/L BUN (9-20) mg/dL Creatinine (0.66-1.25) mg/dL POC Glucose (mg/dL) 140 H (75-99) mg/dL Plasma Lactic Acid Dwain 2.9 H* (0.7-2.0) mmol/L Calcium (8.4-10.2) mg/dL Total Bilirubin (0.2-1.3) mg/dL AST (17-59) U/L ALT (4-49) U/L Total Protein (6.3-8.2) g/dL Albumin (3.5-5.0) g/dL Procalcitonin 25.80 H (0.02-0.09) ng/mL 10/17/21 10/17/21 10/18/21 Range/Units 17:43 21:11 06:13 WBC (3.8-10.6) k/uL RBC (4.30-5.90) m/uL Hgb (13.0-17.5) gm/dL Hct (39.0-53.0) % RDW (11.5-15.5) % Plt Count (150-450) k/uL Neutrophils # (1.3-7.7) k/uL Lymphocytes # (1.0-4.8) k/uL PT 15.7 H (9.0-12.0) sec INR 1.5 H (<1.2) APTT 63.5 H (22.0-30.0) sec Sodium (137-145) mmol/L BUN (9-20) mg/dL Creatinine (0.66-1.25) mg/dL POC Glucose (mg/dL) (75-99) mg/dL Plasma Lactic Acid Dwain 2.5 H* 2.2 H* (0.7-2.0) mmol/L Calcium (8.4-10.2) mg/dL Total Bilirubin (0.2-1.3) mg/dL AST (17-59) U/L ALT (4-49) U/L Total Protein (6.3-8.2) g/dL Albumin (3.5-5.0) g/dL Procalcitonin (0.02-0.09) ng/mL 10/18/21 10/18/21 10/18/21 Range/Units 06:13 06:13 11:33 WBC 16.0 H (3.8-10.6) k/uL RBC 3.86 L (4.30-5.90) m/uL Hgb 12.0 L (13.0-17.5) gm/dL Hct 38.3 L (39.0-53.0) % RDW 16.7 H (11.5-15.5) % Plt Count 149 L (150-450) k/uL Neutrophils # 14.7 H (1.3-7.7) k/uL Lymphocytes # 0.6 L (1.0-4.8) k/uL PT (9.0-12.0) sec INR (<1.2) APTT (22.0-30.0) sec Sodium 135 L (137-145) mmol/L BUN 74 H (9-20) mg/dL Creatinine 4.12 H (0.66-1.25) mg/dL POC Glucose (mg/dL) 146 H (75-99) mg/dL Plasma Lactic Acid Dwain (0.7-2.0) mmol/L Calcium 7.0 L (8.4-10.2) mg/dL Total Bilirubin 2.9 H (0.2-1.3) mg/dL AST 749 H (17-59) U/L ALT 1351 H (4-49) U/L Total Protein 5.6 L (6.3-8.2) g/dL Albumin 2.9 L (3.5-5.0) g/dL Procalcitonin (0.02-0.09) ng/mL Microbiology - Last 24 Hours (Table) 10/16/21 21:06 Blood Culture - Preliminary Blood No Growth after 24 hours
--- NOTE | 2021-10-18 12:39 | P.PN ---
Subjective Progress Note Date: 10/18/21 Principal diagnosis: Acute deep vein thrombosis left lower extremity This is a 66-year-old white male with history of multiple medical problems including three-vessel coronary artery disease, ischemic cardiomyopathy and LV dysfunction, declined AICD placement in the past. Patient was seen yesterday at [facility] ER in [place], and he felt that he may have had food poi soning as he presented mostly with symptoms nausea vomiting and diarrhea. Patient was noted to have multiple abnormal labs, however further workup revealed evidence of left lower extremity DVT. Patient was transferred to [facility], and he was noted to have left lower extremity DVT, many abnormal labs including CBC showing leukocytosis with WBC count of 24.8. Elevated INR of 1.8. Elevated potassium of 6.5. Elevated BUN of 53 and creatinine of 3.29. Patient was also noted to be acidotic with an anion gap metabolic acidosis of 17. Elevated total bilirubin of 2.8, elevated liver enzymes with AST of 3128 and elevated ALT of 1450. Elevated troponin of 2.46. Elevated BNP of 57,000. And elevated lactic acid of 5.6. Considering the multiple abnormalities noted, patient was seen by many consultants. And he had extensive workup over the last 24 hours. The workup included a chest x-ray which showed cardiomegaly, and minimal basilar atelectasis. Ultrasound of the gallbladder showed evidence of cholelithiasis, and radiologist raised the possibility of cholecystitis with underlying hepatocellular disease and hepatic steatosis VQ scan was nondiagnostic. Patient had abdominal bladder ultrasound and this is pending. Patient was seen by vascular surgery for DVT, and the recommendation was basically continue heparin, no surgical intervention was felt to be necessary patient was seen by general surgery for his cholelithiasis, and the recommendation was observation and watch him closely, patient did not have clinical symptoms of cholecystitis. Patient was seen by cardiology for his LV dysfunction and history of ischemic cardiomyopathy, the recommendation was supportive care measures, high surgical risk. Avoid surgery unless it is absolutely necessary, seen by nephrology for his acute kidney injury felt to be secondary to hypotension with oligoria, and the recommendation was to check a bladder scan, rule out urinary retention, and recommended bicarb drip. And recommended mostly renal ultrasound and avoiding nephrotoxic agents considering his complex multiple medical problems, I was notified about this patient by the admitting physician Dr. Johnson, and I arranged for the patient to be admitted to the ICU. In the meantime I'm recommending that we follow the recommendation of different consultants on the case and monitor the patient closely. In the meantime continue heparin. And continue antibiotics. Patient will be seen by infectious disease on consultation. Reevaluated today on 10/18/21, patient remains in the ICU, feeling a bit better today compared to yesterday. Hardly any shortness of breath. No abdominal pain. No nausea no vomiting. Surprisingly his liver enzymes are showing significant improvement since admission. Renal functioning is a bit worse. WBC count is 16 hemoglobin is 12, PTT is therapeutic at 63.5. Electrolytes are normal BUN however is up to 74 creatinine up to 4.12. AST is down to 749 and ALT is down to 1351. Patient had MRCP, and basically nondiagnostic. In the meantime the patient remains on daptomycin and on Unasyn. For presumptive clinical suspicion of acute cholecystitis and cholangitis, blood cultures have been negative since admission. Pulmonary-gagnon the patient is doing fairly well. Objective - Vital Signs Vital signs: Vital Signs Temp 97.8 F 10/18/21 12:00 Pulse 65 10/18/21 12:00 Resp 10 L 10/18/21 12:00 BP 104/65 10/18/21 12:00 Pulse Ox 93 L 10/18/21 12:00 FiO2 Intake & Output 10/17/21 10/18/21 10/18/21 18:59 06:59 18:59 Intake Total 900 1250 400 Output Total 175 Balance 900 1250 225 Weight 104 kg Intake: IV 600 650 50 Dextrose 5% in Water 1, 600 650 50 000 ml @ 50 mls/hr IV . Q21H VAN with Sodium Bicarb (1 Meq/ml) 50 ml Rx#:[id number] Intake, IV Titration 350 350 Amount Ampicillin-Sulbactam 3 gm 100 100 In Sodium Chloride 0.9% 100 ml @ 200 mls/hr IVPB Q12HR VAN Rx#:[id number] Dextrose 5% in Water 1, 250 000 ml @ 50 mls/hr IV . Q23H VAN with Sodium Bicarb (1 Meq/ml) 150 ml Rx#:[id number] Heparin Sod,Pork in 0.45% 250 NaCl 25,000 unit In 0.45 % NaCl 1 250ml.bag @ 18 UNITS/KG/HR 16.329 mls/hr IV .[id number] [facility] Rx#: [id number] Oral 300 250 Output: Urine 175 Other: Voiding Method Urinal Urinal Urinal # Voids 0 0 - Exam GENERAL: Revealed a 66-year-old white male, in no distress. Head: Atraumatic, normocephalic. EYES: Pupils equal. Conjunctiva normal. HEENT: Normal nasal mucosa and normal oral mucosa, throat is clear. NECK: No neck masses no JVD no stridor. HEART: Normal S1 and S2, no S3 gallop. No murmur. LUNGS: Symmetrical chest expansion, clear throughout no crackles or rhonchi or wheezes. ABDOMEN: Soft nontender no megaly no rebound no guarding. PSYCH: Normal mood affect and normal mental status examination. MUSCULOSKELETAL: No deformities and no limitation in range of motion. EXTREMITIES: Left lower extremity showed evidence of chronic venous stasis changes noted in both lower extremities. No evidence of mottling. Good pulses palpable bilaterally NEUROLOGICAL: Alert and oriented 3 focal deficits. Skin: Chronic venous stasis noted in both lower extremities. - Labs CBC & Chem 7: 10/18/21 06:13 10/18/21 06:13 Labs: Abnormal Lab Results - Last 24 Hours (Table) 10/17/21 10/17/21 10/17/21 Range/Units 10:45 13:49 16:36 WBC (3.8-10.6) k/uL RBC (4.30-5.90) m/uL Hgb (13.0-17.5) gm/dL Hct (39.0-53.0) % RDW (11.5-15.5) % Plt Count (150-450) k/uL Neutrophils # (1.3-7.7) k/uL Lymphocytes # (1.0-4.8) k/uL PT (9.0-12.0) sec INR (<1.2) APTT (22.0-30.0) sec Sodium (137-145) mmol/L BUN (9-20) mg/dL Creatinine (0.66-1.25) mg/dL POC Glucose (mg/dL) 140 H (75-99) mg/dL Plasma Lactic Acid Dwain 2.9 H* (0.7-2.0) mmol/L Calcium (8.4-10.2) mg/dL Total Bilirubin (0.2-1.3) mg/dL AST (17-59) U/L ALT (4-49) U/L Total Protein (6.3-8.2) g/dL Albumin (3.5-5.0) g/dL Procalcitonin 25.80 H (0.02-0.09) ng/mL 10/17/21 10/17/21 10/18/21 Range/Units 17:43 21:11 06:13 WBC (3.8-10.6) k/uL RBC (4.30-5.90) m/uL Hgb (13.0-17.5) gm/dL Hct (39.0-53.0) % RDW (11.5-15.5) % Plt Count (150-450) k/uL Neutrophils # (1.3-7.7) k/uL Lymphocytes # (1.0-4.8) k/uL PT 15.7 H (9.0-12.0) sec INR 1.5 H (<1.2) APTT 63.5 H (22.0-30.0) sec Sodium (137-145) mmol/L BUN (9-20) mg/dL Creatinine (0.66-1.25) mg/dL POC Glucose (mg/dL) (75-99) mg/dL Plasma Lactic Acid Dwain 2.5 H* 2.2 H* (0.7-2.0) mmol/L Calcium (8.4-10.2) mg/dL Total Bilirubin (0.2-1.3) mg/dL AST (17-59) U/L ALT (4-49) U/L Total Protein (6.3-8.2) g/dL Albumin (3.5-5.0) g/dL Procalcitonin (0.02-0.09) ng/mL 10/18/21 10/18/21 10/18/21 Range/Units 06:13 06:13 11:33 WBC 16.0 H (3.8-10.6) k/uL RBC 3.86 L (4.30-5.90) m/uL Hgb 12.0 L (13.0-17.5) gm/dL Hct 38.3 L (39.0-53.0) % RDW 16.7 H (11.5-15.5) % Plt Count 149 L (150-450) k/uL Neutrophils # 14.7 H (1.3-7.7) k/uL Lymphocytes # 0.6 L (1.0-4.8) k/uL PT (9.0-12.0) sec INR (<1.2) APTT (22.0-30.0) sec Sodium 135 L (137-145) mmol/L BUN 74 H (9-20) mg/dL Creatinine 4.12 H (0.66-1.25) mg/dL POC Glucose (mg/dL) 146 H (75-99) mg/dL Plasma Lactic Acid Dwain (0.7-2.0) mmol/L Calcium 7.0 L (8.4-10.2) mg/dL Total Bilirubin 2.9 H (0.2-1.3) mg/dL AST 749 H (17-59) U/L ALT 1351 H (4-49) U/L Total Protein 5.6 L (6.3-8.2) g/dL Albumin 2.9 L (3.5-5.0) g/dL Procalcitonin (0.02-0.09) ng/mL Microbiology - Last 24 Hours (Table) 10/16/21 21:06 Blood Culture - Preliminary Blood No Growth after 24 hours Assessment and Plan Assessment: Impression: Acute deep vein thromboses involving left lower extremity. Suspect possible cholecystitis. Acute hepatitis. Acute kidney injury possibly acute on chronic kidney disease. Could very well be cardiorenal in nature. Coronary artery disease and history of severe ischemic cardiomyopathy and LV dysfunction Type 2 diabetes. Dyslipidemia. Benign essential hypertension. Acute anion gap metabolic acidosis, multifactorial, but mostly secondary to his acute kidney injury. Acute hyperkalemia secondary to acute kidney injury. Resolved. Recommendation: Continue heparin Continue bicarb drip. Continue antibiotics presently on Unasyn and daptomycin Continue to monitor electrolytes especially potassium. Continue to monitor liver enzymes. Improving today compared to yesterday. Avoid nephrotoxic agents. Monitor blood sugars closely and address accordingly. Continue to monitor in the ICU. Prognosis is relatively guarded. Time with Patient: Less than 30
--- NOTE | 2021-10-18 13:21 | P.PN ---
Progress Note - Text Progress Note Date: 10/18/21 Chief Complaint: Left leg pain This is a pleasant 66-year-old patient, follows with Dr. Mike Escobar. Chronic stable medical conditions include CAD with stent, diabetes, hypertension, hyperlipidemia anxiety. Yesterday patient was walking about in [facility] when he started feeling unwell. Decided to leave the store and came to the parking lot. Sat down there. Decided to drive home. Patient has several bouts of nausea and vomiting. [place] of the ER. He was then discharged last night. Denied any fever and chills. Had some abdominal pain. Settle down. He did gets IV fluids at the other hospital. Patient very early this morning started having pain from mid thigh down the leg. Rather significant. No injury. Patient had some sweating for some time. In the ER was found to have a common femoral relevant DVT. Also had arterial Doppler done which was reviewed by Dr. Mike found to be normal. No arterial compromise. Denies any nausea vomiting abdominal pain today. Patient noted to have increased LFTs compared to the was done at [facility]. Admitted with: Acute DVT of the left common femoral vein, choledocholithiasis asymptomatic, acute ischemic hepatitis, acute kidney injury, metabolic acidosis, positive blood cultures from the outside hospital. Patient started IV heparin, sodium bicarbonate drip, IV cefepime and IV daptomycin,. Acute arterial compromise was ruled out by arterial Doppler by Dr. Mike. Hyperkalemia treated. October 17: Because of multiple issues patient smoked in the ICU yesterday evening. Today patient on 5 L of nasal cannula. Decreased urine output. Bicarbonate drip. IV heparin. Doppler ultrasound showing distal pulses. October 18: ICU: Was up in a chair today. IV heparin. IV bicarbonate drip. 4 L nasal cannula. Had blisters on lower extremity. They will popped by vascular. Active Medications Acetaminophen (Acetaminophen Tab 325 Mg Tab) 325 mg PO Q6H PRN PRN Reason: Pain or Fever > 100.5 Alprazolam (Alprazolam 0.25 Mg Tab) 0.25 mg PO BID PRN PRN Reason: Anxiety Aspirin (Aspirin 81 Mg) 81 mg PO DAILY [facility] Last Admin: 10/18/21 08:31 Dose: 81 mg Fluoxetine HCl (Fluoxetine Hcl 20 Mg Cap) 20 mg PO HS [facility] Last Admin: 10/17/21 20:07 Dose: 20 mg Heparin Sodium (Porcine) (Heparin Sodium 1,000 Un/Ml (10ml Vl)) 0 unit IV PER PROTOCOL PRN; Protocol PRN Reason: Low PTT Hydromorphone HCl (Hydromorphone 0.5 Mg/0.5 Ml Syringe) 0.5 mg IVP Q3HR PRN PRN Reason: Moderate Pain Last Admin: 10/18/21 11:41 Dose: 0.5 mg Heparin Sodium/Sodium Chloride (25,000 unit/ Sodium Chloride) 250 mls @ 16.329 mls/hr IV .[id number] [facility]; Protocol Last Admin: 10/17/21 23:01 Dose: 15 units/kg/hr, 13.608 mls/hr Daptomycin 500 mg/ Sodium (Chloride) 50 mls @ 100 mls/hr IVPB Q48H [facility] Last Admin: 10/16/21 21:52 Dose: 100 mls/hr Sodium Bicarbonate 150 ml/ (Dextrose/Water) 1,150 mls @ 50 mls/hr IV .Q23H [facility] Last Admin: 10/17/21 13:53 Dose: 50 mls/hr Ampicillin Sodium/Sulbactam (Sodium 3 gm/ Sodium Chloride) 100 mls @ 200 mls/hr IVPB Q12HR [facility]; Protocol Last Admin: 10/18/21 08:31 Dose: 200 mls/hr Insulin Aspart (Insulin Aspart (Novolog) 100 Unit/Ml Vial) 0 unit SQ AC-TID [facility]; Protocol Last Admin: 10/18/21 11:41 Dose: 1 unit Insulin Detemir (Insulin Detemir (Levemir) 100 Unit/Ml Syr) 15 unit SQ HS [facility] Last Admin: 10/17/21 20:07 Dose: 15 unit Naloxone HCl (Naloxone 0.4 Mg/Ml 1 Ml Vial) 0.2 mg IV Q2M PRN PRN Reason: Opioid Reversal Nitroglycerin (Nitroglycerin Sl Tabs 0.4 Mg Tab) 0.4 mg SUBLINGUAL Q5M PRN PRN Reason: Chest Pain Ondansetron HCl (Ondansetron 4 Mg/2 Ml Vial) 4 mg IVP Q8HR PRN PRN Reason: Nausea And Vomiting Past medical history to include: CAD with stent, diabetes, hypertension, hyperlipidemia, skin cancer on the nose in August 2020, anxiety 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 Nonsmoker. Alcohol rarely. Family history: Diabetes, CAD Physical examination: VITAL SIGNS: 97.8, 65, 12, 104/65, 93% on 4 L GENERAL: reclining in the bed EYES: Pupils equal. Conjunctiva normal. HEENT: External appearance of nose and ears normal, oral cavity grossly normal. NECK: JVD not raised; masses not palpable. HEART: First and second heart sounds are normal; some edema. LUNGS: Respiratory rate increased; decreased breath sound . ABDOMEN: Soft, nontender, liver spleen not palpable, no masses palpable. PSYCH: [Alert and oriented x3; mood and affect slightly anxious MUSCULOSKELETAL:No Clubbing/cyanosis;muscles-grossly intact EXTREMITIES: Shiny skin lower extremity.necrobiosis lipoidica. Edema present. ischemic and fungal nails. Some tenderness NEUROLOGICAL: Cranial nerves grossly intact; no facial asymmetry, power and hyper sensation lower extremity INVESTIGATIONS, reviewed in the clinical context: 2-D echocardiogram: EF 20-25%. October 18: White count 16 hemoglobin 12 platelets 149 sodium 135 potassium 4.4 creatinine 4.12 AST 749 ALT 1351 October 17: White count 20.1 hemoglobin 1.4 platelets 154 INR 2.4 sodium 132 potassium 6 BUN 57 creatinine 3.47 lactic acidosis 3.5 AST 08/06/2008 ALT 2181 White count 31.4 hemoglobin 15.4 platelets 267 sodium 139 potassium 6.2 bicarbonate 12 BUN 41 creatinine 2.81 lactic acid 11.6 AST 494 ALT 240 troponin I 0.640, 2.4 EKG tracing personally reviewed by me-intraventricular block. Sinus rhythm. First-degree AV block. Left lower extremity venous Doppler: DVT in the common femoral vein. Chest x-ray film personally reviewed by me-cardiomegaly. Lungs clear Gallbladder ultrasound: Gallbladder filled with stones. Possible hepatic steatosis. Arterial Doppler results discussed with Dr. Mike: No evidence of vascular compromise Assessment and plan: -Acute DVT of the left common femoral vein, likely precipitated from acute gastroenteritis and decreased activity. IV heparin monitoring. KAYDEN stockings. -Acute hypoxic respiratory failure, likely from CHF On 5 L nasal cannula -Ischemic cardiomyopathy, EF 20-25% -Sepsis with positive blood cultures [ from outside hospital] IV Unasyn -Choledocholithiasis. Asymptomatic. -Episode of acute food poisoning day prior to admission Self-limited. -Acute hepatitis. Likely ischemic.: Slow to respond Follow-up with GI -Troponinemia, likely from hemodynamic mismatch. Setting of acute kidney injury. No chest pain. IV heparin -CAD with a history of stent Aspirin 81 mg daily -Diabetes mellitus type 2, chronically on insulin Follow Accu-Cheks and sliding scale insulin. Levemir 15 units at night -Hyperlipidemia Given the elevated LFTs hold Zocor. -Essential hypertension Currently blood pressure is running low likely because of dehydration from nausea vomiting . Hold off Norvasc -Lower extremity edema possibly from Norvasc and DVT KAYDEN stockings, bilateral -Acute kidney injury, ATN from sepsis and prerenal from nausea vomiting: Worsening Patient's creatinine was 1.7 on August 25. -Metabolic acidosis from acute on chronic kidney disease: Sodium bicarbonate drip at 50 mL an hour -Chronic kidney disease stage III from diabetic nephropathy and hypertensive nephrosclerosis Follow renal function. Creatinine 1.7 in August 2021 -Hyperkalemia from metabolic acidosis: corrected Renal diet. Lokelma. Sodium bicarbonate drip. -Anxiety not otherwise specified Xanax 0.25 mg by mouth twice a day -Full code IV heparin. IV bicarbonate . Strict I's and O's. IV Unasyn . Incentive spirometry. 5 L nasal cannula. Follow labs. Discussed with patient.
[2021-10-18] MEDS: HEPARIN SOD,PORK IN 0.45% NACL 25,000 UNIT in 0.45% NACL 1 250ML.BAG IV SCH (15:33)
[2021-10-18 16:44] LABS: Glucose,Whole Blood 99 mg/dL (70-110)
[2021-10-18 20:19] LABS: Glucose,Whole Blood 126 mg/dL (70-110)
[2021-10-18] MEDS: DAPTOmycin 500 MG in SODIUM CHLORIDE 0.9% 50 ML IVPB SCH (21:11)
[2021-10-18] MEDS: FLUoxetine HCL 20 MG CAP PO SCH (21:11)
[2021-10-18] MEDS: INSULIN DETEMIR (LEVEMIR) 100 UNIT/ML SYR SQ SCH (21:11)
[2021-10-18] MEDS: ALPRAZolam 0.25 MG TAB PO PRN (23:39)
[2021-10-19] MEDS: HYDROmorphone 0.5 MG/0.5 ML SYRINGE IVP PRN ×2 (00:51→09:52)
[2021-10-19] MEDS: INSULIN ASPART (NovoLOG) 100 UNIT/ML VIAL SQ SCH ×3 (06:48→19:19)
[2021-10-19 06:49] LABS: Glucose,Whole Blood 95 mg/dL (70-110)
[2021-10-19 07:11] LABS: Anisocytosis Slight; Basophils % (A) 0 %; Eosinophils # (A) 0.2 k/uL (0-0.7); Eosinophils % (A) 1 %; HGB 11.9 gm/dL (13.0-17.5); Hypochromasia Slight; Lymphocytes # (A) 0.5 k/uL (1.0-4.8); Lymphocytes % (A) 4 %; MCH 31.3 pg (25.0-35.0); MCHC 31.4 g/dL (31.0-37.0); MCV 99.6 fL (80.0-100.0); Macrocytosis Slight; Monocytes # (A) 0.4 k/uL (0-1.0); Monocytes % (A) 3 %; Neutrophils # (A) 11.6 k/uL (1.3-7.7); Neutrophils % (A) 91 %; Platelet Count 104 k/uL (150-450); Poikilocytosis Slight; RBC 3.81 m/uL (4.30-5.90); RDW 17.4 % (11.5-15.5); WBC 12.9 k/uL (3.8-10.6)
[2021-10-19 07:26] LABS: Albumin 2.6 g/dL (3.5-5.0); Calcium 6.7 mg/dL (8.4-10.2); Potassium 3.8 mmol/L (3.5-5.1); Total Bilirubin 1.7 mg/dL (0.2-1.3); Total Protein 5.2 g/dL (6.3-8.2)
--- NOTE | 2021-10-19 08:00 | P.PN ---
Subjective Progress Note Date: 10/18/21 Principal diagnosis: Abdominal sepsis and bacteremia Patient is a 66 year male presenting to the hospital with acute nausea vomiting and abdominal pain patient did have evidence of gallstones and elevated liver enzymes did have a positive blood culture at the outside facility and subsequently transferred to [facility] for further management. On today's evaluation that is 10/18/2021, the patient denies having any fever or chills, no further vomiting, patient abdominal pain has decreased in intensity no chest pain shortness of breath or cough and no diarrhea Objective - Vital Signs Vital signs: Vital Signs Temp 97.8 F 10/18/21 12:00 Pulse 65 10/18/21 12:00 Resp 10 L 10/18/21 12:00 BP 104/65 10/18/21 12:00 Pulse Ox 93 L 10/18/21 12:00 FiO2 Intake & Output 10/17/21 10/18/21 10/18/21 18:59 06:59 18:59 Intake Total 900 1250 400 Output Total 175 Balance 900 1250 225 Weight 104 kg Intake: IV 600 650 50 Dextrose 5% in Water 1, 600 650 50 000 ml @ 50 mls/hr IV . Q21H VAN with Sodium Bicarb (1 Meq/ml) 50 ml Rx#:[id number] Intake, IV Titration 350 350 Amount Ampicillin-Sulbactam 3 gm 100 100 In Sodium Chloride 0.9% 100 ml @ 200 mls/hr IVPB Q12HR [facility]AN Rx#:[id number] Dextrose 5% in Water 1, 250 000 ml @ 50 mls/hr IV . Q23H VAN with Sodium Bicarb (1 Meq/ml) 150 ml Rx#:[id number] Heparin Sod,Pork in 0.45% 250 NaCl 25,000 unit In 0.45 % NaCl 1 250ml.bag @ 18 UNITS/KG/HR 16.329 mls/hr IV .[id number] VAN Rx#: [id number] Oral 300 250 Output: Urine 175 Other: Voiding Method Urinal Urinal Urinal # Voids 0 0 - Exam GENERAL DESCRIPTION: An elderly male lying in bed in no distress RESPIRATORY SYSTEM: Unlabored breathing , decreased breath sounds at bases HEART: S1 S2 regular rate and rhythm , ABDOMEN: Soft , no tenderness EXTREMITIES: No edema feet - Labs CBC & Chem 7: 10/19/21 06:49 10/19/21 06:49 Labs: Abnormal Lab Results - Last 24 Hours (Table) 10/17/21 10/17/21 10/17/21 Range/Units 10:45 13:49 16:36 WBC (3.8-10.6) k/uL RBC (4.30-5.90) m/uL Hgb (13.0-17.5) gm/dL Hct (39.0-53.0) % RDW (11.5-15.5) % Plt Count (150-450) k/uL Neutrophils # (1.3-7.7) k/uL Lymphocytes # (1.0-4.8) k/uL PT (9.0-12.0) sec INR (<1.2) APTT (22.0-30.0) sec Sodium (137-145) mmol/L BUN (9-20) mg/dL Creatinine (0.66-1.25) mg/dL POC Glucose (mg/dL) 140 H (75-99) mg/dL Plasma Lactic Acid Dwain 2.9 H* (0.7-2.0) mmol/L Calcium (8.4-10.2) mg/dL Total Bilirubin (0.2-1.3) mg/dL AST (17-59) U/L ALT (4-49) U/L Total Protein (6.3-8.2) g/dL Albumin (3.5-5.0) g/dL Procalcitonin 25.80 H (0.02-0.09) ng/mL 10/17/21 10/17/21 10/18/21 Range/Units 17:43 21:11 06:13 WBC (3.8-10.6) k/uL RBC (4.30-5.90) m/uL Hgb (13.0-17.5) gm/dL Hct (39.0-53.0) % RDW (11.5-15.5) % Plt Count (150-450) k/uL Neutrophils # (1.3-7.7) k/uL Lymphocytes # (1.0-4.8) k/uL PT 15.7 H (9.0-12.0) sec INR 1.5 H (<1.2) APTT 63.5 H (22.0-30.0) sec Sodium (137-145) mmol/L BUN (9-20) mg/dL Creatinine (0.66-1.25) mg/dL POC Glucose (mg/dL) (75-99) mg/dL Plasma Lactic Acid Dwain 2.5 H* 2.2 H* (0.7-2.0) mmol/L Calcium (8.4-10.2) mg/dL Total Bilirubin (0.2-1.3) mg/dL AST (17-59) U/L ALT (4-49) U/L Total Protein (6.3-8.2) g/dL Albumin (3.5-5.0) g/dL Procalcitonin (0.02-0.09) ng/mL 10/18/21 10/18/21 10/18/21 Range/Units 06:13 06:13 11:33 WBC 16.0 H (3.8-10.6) k/uL RBC 3.86 L (4.30-5.90) m/uL Hgb 12.0 L (13.0-17.5) gm/dL Hct 38.3 L (39.0-53.0) % RDW 16.7 H (11.5-15.5) % Plt Count 149 L (150-450) k/uL Neutrophils # 14.7 H (1.3-7.7) k/uL Lymphocytes # 0.6 L (1.0-4.8) k/uL PT (9.0-12.0) sec INR (<1.2) APTT (22.0-30.0) sec Sodium 135 L (137-145) mmol/L BUN 74 H (9-20) mg/dL Creatinine 4.12 H (0.66-1.25) mg/dL POC Glucose (mg/dL) 146 H (75-99) mg/dL Plasma Lactic Acid Dwain (0.7-2.0) mmol/L Calcium 7.0 L (8.4-10.2) mg/dL Total Bilirubin 2.9 H (0.2-1.3) mg/dL AST 749 H (17-59) U/L ALT 1351 H (4-49) U/L Total Protein 5.6 L (6.3-8.2) g/dL Albumin 2.9 L (3.5-5.0) g/dL Procalcitonin (0.02-0.09) ng/mL Microbiology - Last 24 Hours (Table) 10/16/21 21:06 Blood Culture - Preliminary Blood No Growth after 24 hours Assessment and Plan (1) Cholelithiasis Current Visit: Yes Status: Acute Code(s): K80.20 - CALCULUS OF GALLBLADDER W/O CHOLECYSTITIS W/O OBSTRUCTION SNOMED Code(s): 055761134 Plan: 1patient presented to hospital with sepsis in this patient have elevated white count elevated lactic acid presenting with nausea and vomiting with evidence of gallstones did have elevated liver enzymes and high clinic suspicious for acute cholecystitis and cholangitis and this patient did have a gram-positive bacteremia with strep more likely source is cholangitis. 2 Borderline kidney function and high risk of nephrotoxicity. 3patient will continue with Unasyn 3 g every 12 hours while waiting for the ID sensitivity and continue daptomycin for now. 4repeat blood cultures are negative so far Time with Patient: Less than 30
--- NOTE | 2021-10-19 08:28 | XR ---
EXAMINATION TYPE: XR chest 1V portable DATE OF EXAM: 10/19/2021 COMPARISON: Chest x-ray 10/18/2021 HISTORY: Abnormal chest x-ray TECHNIQUE: Single frontal view of the chest is obtained. FINDINGS: Bandlike area of increased attenuation in the left midlung is again noted, there is again seen thickening of the minor fissure. Perihilar vascular indistinctness is noted. Lung volumes are lo w. No evident pneumothorax. Heart is enlarged, stable. Blunting of the costophrenic angle on the righ t may be slightly improved IMPRESSION: Correlate for interstitial edema, there is a right pleural effusion
--- NOTE | 2021-10-19 09:39 | P.PN ---
Subjective Progress Note Date: 10/19/21 Principal diagnosis: Left lower extremity DVT Patient is seen and examined today as a follow-up for left lower extremity DVT. He remains in the ICU. Remains on IV heparin drip. Blood pressure improving. Liver enzymes improving. He denies any shortness of breath or chest pain. States he still having some discomfort in that left lower extremity, states his skin feels tingly. He does have a KAYDEN hose in place. He remains afebrile. He denies any abdominal pain, nausea, vomiting, body aches or chills. Objective - Vital Signs Vital signs: Vital Signs Temp 97.8 F 10/19/21 04:00 Pulse 74 10/19/21 07:00 Resp 15 10/19/21 07:00 BP 116/70 10/19/21 07:00 Pulse Ox 96 10/19/21 07:00 FiO2 Intake & Output 10/18/21 10/19/21 10/19/21 18:59 06:59 18:59 Intake Total 924.986 250 Output Total 175 250 Balance 749.986 0 Weight 105.7 kg Intake: IV 50 Dextrose 5% in Water 1, 50 000 ml @ 50 mls/hr IV . Q21H VAN with Sodium Bicarb (1 Meq/ml) 50 ml Rx#:[id number] Intake, IV Titration 874.986 250 Amount Ampicillin-Sulbactam 3 gm 100 100 In Sodium Chloride 0.9% 100 ml @ 200 mls/hr IVPB Q12HR VAN Rx#:[id number] DAPTOmycin 500 mg In 50 Sodium Chloride 0.9% 50 ml @ 100 mls/hr IVPB Q48H VAN Rx#:[id number] Dextrose 5% in Water 1, 550 100 000 ml @ 50 mls/hr IV . Q23H VAN with Sodium Bicarb (1 Meq/ml) 150 ml Rx#:[id number] Heparin Sod,Pork in 0.45% 224.986 NaCl 25,000 unit In 0.45 % NaCl 1 250ml.bag @ 18 UNITS/KG/HR 16.329 mls/hr IV .[id number] VAN Rx#: [id number] Output: Urine 175 250 Other: Voiding Method Urinal Urinal # Voids 0 0 - Exam General appearance: The patient is alert, oriented, appears in no acute distress. HET: Head is normocephalic and atraumatic. Conjunctiva pink. Sclera anicteric. Neck: Supple without lymphadenopathy. Abdomen: Soft, nontender, nondistended with bowel sounds. No guarding or rigidity. Extremities: Left lower extremity with swelling, multiple fluid-filled blisters. Palpable bilateral femoral pulses. Nonpalpable DP and PT pulses. Positive DP and PT Doppler signal. Left fourth toe previous amputation site well healed. Skin: No rashes, no jaundice Neurological: No focal deficits. Alert and oriented x 3. - Labs CBC & Chem 7: 10/19/21 06:49 10/19/21 06:49 Labs: Abnormal Lab Results - Last 24 Hours (Table) 10/18/21 10/18/21 10/19/21 Range/Units 11:33 20:18 06:49 WBC 12.9 H (3.8-10.6) k/uL RBC 3.81 L (4.30-5.90) m/uL Hgb 11.9 L (13.0-17.5) gm/dL Hct 38.0 L (39.0-53.0) % RDW 17.4 H (11.5-15.5) % Plt Count 104 L (150-450) k/uL Neutrophils # 11.6 H (1.3-7.7) k/uL Lymphocytes # 0.5 L (1.0-4.8) k/uL APTT (22.0-30.0) sec Sodium (137-145) mmol/L BUN (9-20) mg/dL Creatinine (0.66-1.25) mg/dL POC Glucose (mg/dL) 146 H 126 H (75-99) mg/dL Calcium (8.4-10.2) mg/dL Total Bilirubin (0.2-1.3) mg/dL AST (17-59) U/L ALT (4-49) U/L Total Protein (6.3-8.2) g/dL Albumin (3.5-5.0) g/dL 10/19/21 10/19/21 Range/Units 06:49 06:49 WBC (3.8-10.6) k/uL RBC (4.30-5.90) m/uL Hgb (13.0-17.5) gm/dL Hct (39.0-53.0) % RDW (11.5-15.5) % Plt Count (150-450) k/uL Neutrophils # (1.3-7.7) k/uL Lymphocytes # (1.0-4.8) k/uL APTT 60.4 H (22.0-30.0) sec Sodium 133 L (137-145) mmol/L BUN 83 H (9-20) mg/dL Creatinine 3.99 H (0.66-1.25) mg/dL POC Glucose (mg/dL) (75-99) mg/dL Calcium 6.7 L (8.4-10.2) mg/dL Total Bilirubin 1.7 H (0.2-1.3) mg/dL AST 371 H (17-59) U/L ALT 946 H (4-49) U/L Total Protein 5.2 L (6.3-8.2) g/dL Albumin 2.6 L (3.5-5.0) g/dL Microbiology - Last 24 Hours (Table) 10/16/21 21:06 Blood Culture - Preliminary Blood No Growth after 48 hours Assessment and Plan Assessment: 1. Left lower extremity DVT 2. Positive lactic acid 3. Hypotension 4. Elevated troponins 5. Shortness of breath 6. Acute kidney injury 7. Ischemic cardiomyopathy with LV dysfunction. 8. Acute hepatitis likely from shock liver 9. Leukocytosis 10. Thrombocytopenia 11. History of coronary artery disease status post SD, cardiac stents 12. Diabetes mellitus 13. Previous left toe amputation for diabetic wound/infection Plan: 1. Continue heparin drip for now, plan will be to transition to oral anticoagulation once patient medically stable 2. Continue to monitor CBC, platelets 3. Consult to hematology for thrombocytopenia, possible HIT 4. Activity as tolerated and per recommendations from ICU/medical management 5. No indication for any vascular surgical intervention at this time. 6. Continue ICU/medical management 7. KAYDEN gordon, thigh-high to left lower extremity Thank you for this consultation, we will continue to follow. The impression and plan of care has been dictated as directed. Dr. Rivera I performed a history and examination of this patient, discussed the same with the dictator. I agree with the dictator's note ,documented as a scribe. Any additional findings or plans will be noted.
[2021-10-19] MEDS: HEPARIN SOD,PORK IN 0.45% NACL 25,000 UNIT in 0.45% NACL 1 250ML.BAG IV SCH (09:51)
[2021-10-19] MEDS: ASPIRIN 81 MG PO SCH (09:53)
[2021-10-19] MEDS: AMPICILLIN-SULBACTAM 3 GM in SODIUM CHLORIDE 0.9% 100 ML IVPB SCH ×2 (09:53→20:23)
[2021-10-19 11:17] LABS: Glucose,Whole Blood 113 mg/dL (70-110)
--- NOTE | 2021-10-19 11:30 | PN ---
PROGRESS NOTE This is a 66-year-old gentleman who is admitted to hospital with DVT, acute liver injury and ischemic cardiomyopathy. This morning he is feeling better. EXAM: Vital signs are stable. Chest exam reveals good air entry bilaterally. Heart exam reveals first and second heart sounds, no gallop. Exam of extremities did not reveal any edema. Labs show a hemoglobin of 11.9, potassium is 3.8, BUN is 83, creatinine is 3.99. ASSESSMENT: 1. Acute deep vein thrombosis. 2. Acute liver injury. 3. Acute renal failure. 4. Cardiomyopathy. 5. Coronary artery disease. PLAN: We will continue the patient on current medications. He is on IV heparin for DVT. MMODL / IJN: [id number] /
[2021-10-19] MEDS ORDERED: FUROSEMIDE 10 MG/ML 4 ML VIAL IV STA (13:12)
--- NOTE | 2021-10-19 13:12 | P.PN ---
Subjective Patient is seen for follow-up for acute kidney injury mostly ATN initially oliguric currently nonoliguric. Patient was also acidotic and hyperkalemic. Potassium has improved. Patient is maintained on IV bicarb. Patient has had an increase in urine output however it appears that it is not accurately charted. Serum creatinine has improved to 3.9 from 4.1 yesterday. No significant complaints today Objective - Vital Signs Vital signs: Vital Signs Temp 98.2 F 10/19/21 08:00 Pulse 77 10/19/21 10:00 Resp 17 10/19/21 10:00 BP 111/76 10/19/21 10:00 Pulse Ox 93 L 10/19/21 10:00 FiO2 Intake & Output 10/18/21 10/19/21 10/19/21 18:59 06:59 18:59 Intake Total 924.986 250 349.026 Output Total 175 250 325 Balance 749.986 0 24.026 Weight 105.7 kg Intake: IV 50 Dextrose 5% in Water 1, 50 000 ml @ 50 mls/hr IV . Q21H VAN with Sodium Bicarb (1 Meq/ml) 50 ml Rx#:[id number] Intake, IV Titration 874.986 250 349.026 Amount Ampicillin-Sulbactam 3 gm 100 100 100 In Sodium Chloride 0.9% 100 ml @ 200 mls/hr IVPB Q12HR VAN Rx#:[id number] DAPTOmycin 500 mg In 50 Sodium Chloride 0.9% 50 ml @ 100 mls/hr IVPB Q48H VAN Rx#:[id number] Dextrose 5% in Water 1, 550 100 000 ml @ 50 mls/hr IV . Q23H VAN with Sodium Bicarb (1 Meq/ml) 150 ml Rx#:[id number] Heparin Sod,Pork in 0.45% 224.986 249.026 NaCl 25,000 unit In 0.45 % NaCl 1 250ml.bag @ 18 UNITS/KG/HR 16.329 mls/hr IV .[id number] VAN Rx#: [id number] Output: Urine 175 250 325 Other: Voiding Method Urinal Urinal Urinal # Voids 0 0 - Exam Awake, comfortable, not in any acute distress Examination of the heart S1 and S2 Examination of the lungs bilateral breath sounds are heard Abdomen is soft nontender Examination lower extremities shows edema 1+ left lower extremity. 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 - Labs CBC & Chem 7: 10/19/21 06:49 10/19/21 06:49 Labs: Abnormal Lab Results - Last 24 Hours (Table) 10/18/21 10/19/21 10/19/21 Range/Units 20:18 06:49 06:49 WBC 12.9 H (3.8-10.6) k/uL RBC 3.81 L (4.30-5.90) m/uL Hgb 11.9 L (13.0-17.5) gm/dL Hct 38.0 L (39.0-53.0) % RDW 17.4 H (11.5-15.5) % Plt Count 104 L (150-450) k/uL Neutrophils # 11.6 H (1.3-7.7) k/uL Lymphocytes # 0.5 L (1.0-4.8) k/uL APTT 60.4 H (22.0-30.0) sec Sodium (137-145) mmol/L BUN (9-20) mg/dL Creatinine (0.66-1.25) mg/dL POC Glucose (mg/dL) 126 H (70-110) mg/dL Calcium (8.4-10.2) mg/dL Total Bilirubin (0.2-1.3) mg/dL AST (17-59) U/L ALT (4-49) U/L Total Protein (6.3-8.2) g/dL Albumin (3.5-5.0) g/dL 10/19/21 10/19/21 Range/Units 06:49 11:15 WBC (3.8-10.6) k/uL RBC (4.30-5.90) m/uL Hgb (13.0-17.5) gm/dL Hct (39.0-53.0) % RDW (11.5-15.5) % Plt Count (150-450) k/uL Neutrophils # (1.3-7.7) k/uL Lymphocytes # (1.0-4.8) k/uL APTT (22.0-30.0) sec Sodium 133 L (137-145) mmol/L BUN 83 H (9-20) mg/dL Creatinine 3.99 H (0.66-1.25) mg/dL POC Glucose (mg/dL) 113 H (70-110) mg/dL Calcium 6.7 L (8.4-10.2) mg/dL Total Bilirubin 1.7 H (0.2-1.3) mg/dL AST 371 H (17-59) U/L ALT 946 H (4-49) U/L Total Protein 5.2 L (6.3-8.2) g/dL Albumin 2.6 L (3.5-5.0) g/dL Microbiology - Last 24 Hours (Table) 10/16/21 21:06 Blood Culture - Preliminary Blood No Growth after 48 hours Assessment and Plan Assessment: 1. Acute kidney injury ATN secondary to hypotension currently oliguric, urine output now improved. No urine retention. 2. Anion gap metabolic acidosis secondary to acute kidney injury and lactic acidosis currently maintained on bicarb drip 3. Hyperkalemia associated with acute kidney injury metabolic acidosis, improved 3. Chronic kidney disease NKF stage III B with previous creatinine 1.7-2 mg/dL in August 2021 and as low as 1.1 and 1.2 in 2019. UA shows 3+ protein. Patient most likely has underlying diabetic kidney disease 4. Lactic acidosis 5. Elevated liver enzymes secondary to hypotension 6. Cardiomyopathy with ejection fraction 20-25% 7. Left leg DVT with possible PE maintained on IV heparin Plan: DC IV bicarb Lasix IV 1 Repeat labs in a.m.
--- NOTE | 2021-10-19 13:22 | P.PN ---
Subjective Progress Note Date: 10/19/21 CHIEF COMPLAINT: Left leg DVT HISTORY OF PRESENT ILLNESS: Surgical service following in regards to patient's gallstones. He denies any abdominal pain. Denies any nausea or vomiting. He is tolerating regular diet. Remains on the IV heparin for his left leg DVT. MRCP addendum shows questional filling defects within the distal come bile duct not well replicated on the 3-dimensional post processed images. Difficult to exclude choledocholithiasis. Dr. coombs consulted GI service for evaluation of choledocholithiasis and possible need of ERCP. Afebrile. WBC is down from 16-12.9 Hgb 11.9 and platelets 104 sodium is 133 potassium is 3.8 creatinine is 3.9 total bilirubin and LFTs trending down. Patient seen and examined with Dr. coombs PHYSICAL EXAM: VITAL SIGNS: Reviewed. GENERAL: Well-developed in no acute distress. HEENT: No sclera icterus. Extraocular movements grossly intact. Moist buccal mucosa. Head is atraumatic, normocephalic. ABDOMEN: Soft. Nondistended. Nontender. NEUROLOGIC: Alert and oriented. Cranial nerves II through XII grossly intact. ASSESSMENT: 1. Cholelithiasis. No abdominal pain. No significant sign of cholecystitis. 2. Choledocholithiasis 3. Cholangitis resolving 4. Left leg DVT PLAN: -We'll defer to GI service regarding ERCP -Continue to monitor -No surgical intervention planned -Continue antibiotics -Continue supportive care Physician [employer] Supervisor note has been reviewed by physician. Signing provider agrees with the documented findings, assessment, and plan of care. Objective - Vital Signs Vital signs: Vital Signs Temp 98.2 F 10/19/21 08:00 Pulse 77 10/19/21 10:00 Resp 17 10/19/21 10:00 BP 111/76 10/19/21 10:00 Pulse Ox 93 L 10/19/21 10:00 FiO2 Intake & Output 10/18/21 10/19/21 10/19/21 18:59 06:59 18:59 Intake Total 924.986 250 349.026 Output Total 175 250 325 Balance 749.986 0 24.026 Weight 105.7 kg Intake: IV 50 Dextrose 5% in Water 1, 50 000 ml @ 50 mls/hr IV . Q21H VAN with Sodium Bicarb (1 Meq/ml) 50 ml Rx#:[id number] Intake, IV Titration 874.986 250 349.026 Amount Ampicillin-Sulbactam 3 gm 100 100 100 In Sodium Chloride 0.9% 100 ml @ 200 mls/hr IVPB Q12HR VAN Rx#:[id number] DAPTOmycin 500 mg In 50 Sodium Chloride 0.9% 50 ml @ 100 mls/hr IVPB Q48H VAN Rx#:[id number] Dextrose 5% in Water 1, 550 100 000 ml @ 50 mls/hr IV . Q23H VAN with Sodium Bicarb (1 Meq/ml) 150 ml Rx#:[id number] Heparin Sod,Pork in 0.45% 224.986 249.026 NaCl 25,000 unit In 0.45 % NaCl 1 250ml.bag @ 18 UNITS/KG/HR 16.329 mls/hr IV .[id number] VAN Rx#: [id number] Output: Urine 175 250 325 Other: Voiding Method Urinal Urinal Urinal # Voids 0 0 - Labs CBC & Chem 7: 10/19/21 06:49 10/19/21 06:49 Labs: Abnormal Lab Results - Last 24 Hours (Table) 10/18/21 10/19/21 10/19/21 Range/Units 20:18 06:49 06:49 WBC 12.9 H (3.8-10.6) k/uL RBC 3.81 L (4.30-5.90) m/uL Hgb 11.9 L (13.0-17.5) gm/dL Hct 38.0 L (39.0-53.0) % RDW 17.4 H (11.5-15.5) % Plt Count 104 L (150-450) k/uL Neutrophils # 11.6 H (1.3-7.7) k/uL Lymphocytes # 0.5 L (1.0-4.8) k/uL APTT 60.4 H (22.0-30.0) sec Sodium (137-145) mmol/L BUN (9-20) mg/dL Creatinine (0.66-1.25) mg/dL POC Glucose (mg/dL) 126 H (70-110) mg/dL Calcium (8.4-10.2) mg/dL Total Bilirubin (0.2-1.3) mg/dL AST (17-59) U/L ALT (4-49) U/L Total Protein (6.3-8.2) g/dL Albumin (3.5-5.0) g/dL 10/19/21 10/19/21 Range/Units 06:49 11:15 WBC (3.8-10.6) k/uL RBC (4.30-5.90) m/uL Hgb (13.0-17.5) gm/dL Hct (39.0-53.0) % RDW (11.5-15.5) % Plt Count (150-450) k/uL Neutrophils # (1.3-7.7) k/uL Lymphocytes # (1.0-4.8) k/uL APTT (22.0-30.0) sec Sodium 133 L (137-145) mmol/L BUN 83 H (9-20) mg/dL Creatinine 3.99 H (0.66-1.25) mg/dL POC Glucose (mg/dL) 113 H (70-110) mg/dL Calcium 6.7 L (8.4-10.2) mg/dL Total Bilirubin 1.7 H (0.2-1.3) mg/dL AST 371 H (17-59) U/L ALT 946 H (4-49) U/L Total Protein 5.2 L (6.3-8.2) g/dL Albumin 2.6 L (3.5-5.0) g/dL Microbiology - Last 24 Hours (Table) 10/16/21 21:06 Blood Culture - Preliminary Blood No Growth after 48 hours
--- NOTE | 2021-10-19 13:52 | P.PN ---
Subjective Progress Note Date: 10/19/21 Principal diagnosis: Elevated LFTs, acute ischemic hepatitis This is a 66-year-old male with a past medical history including coronary artery disease status post cardiac stent, 5 MIs, diabetes mellitus, hyperlipidemia, hypertension, skin cancer and previous left fourth toe amputation. The patient presented to the emergency department with complaints of left lower extremity pa in that started 2 days ago. Patient had a venous duplex that showed extensive left lower extremity DVT involving the left common femoral vein and superficial femoral vein. Vascular surgery was consulted for the above. He denies any previous history of DVT or pulmonary embolism. Denies any history of clotting disorder. 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 He is on a low-dose daily aspirin, denies any anticoagulation or antiplatelet therapy. States he does have some shortness of breath that was noted after he started fluids here. Patient denies any abdominal pain, states 2 days ago he did have some nausea and vomiting along with abdominal pain. Denies chest pain but states he does have some shortness of breath. He denies any previous liver disease. Denies any history of alcoholism, or fatty liver disease. 10/18/2021. Patient is seen and reexamined in the ICU. He continues to deny any abdominal pain, nausea or vomiting. He has been tolerating a clear liquid diet. He has continued to be hypotensive running 80s-90s/50s-70s. He denies any chest pain or shortness of breath. He initially was sitting up in the chair. He's been afebrile. Patient underwent MRCP yesterday impression states limitations of the exam. Cholelithiasis. Hepatosplenomegaly. Cardiomegaly. Right pleural effusion and ascites. Today's labs WBC 16 hemoglobin 12 platelet count 149,000 INR 1.5 sodium 135 potassium 4.4 BUN 74 creatinine 4.12 total bilirubin 2.9 AST 749 ALT 1351 alkaline phosphatase 53. Hepatitis panel nonreactive 10/19/2021. Patient is being reevaluated for elevated LFTs, acute ischemic hepatitis. He remains in the ICU. He has still been hypotensive however somewhat improved. He continues to deny any abdominal pain, nausea, or vomiting. He is been afebrile. He states he is passing gas, no bowel movement. WBC improving, LFTs improving. He remains on IV heparin drip. Patient had an MRCP done on 10/17/2021 with a addendum placed on 10/19/2021 stating questionable filling defects within the distal common bile duct not well replicated on the 3-dimensional post processed images. Difficult to exclude choledochal lithiasis as stated in report. Again however patient has not had any further abdominal pain since prior to coming into the hospital. Possibility patient may have had a a passing stone however again patient symptoms completely resolved. Cardiology has seen patient and he is not an optimal surgical mart date. Objective - Vital Signs Vital signs: Vital Signs Temp 97.8 F 10/19/21 04:00 Pulse 74 10/19/21 07:00 Resp 15 10/19/21 07:00 BP 116/70 10/19/21 07:00 Pulse Ox 96 10/19/21 07:00 FiO2 Intake & Output 10/18/21 10/19/21 10/19/21 18:59 06:59 18:59 Intake Total 924.986 250 Output Total 175 250 Balance 749.986 0 Weight 105.7 kg Intake: IV 50 Dextrose 5% in Water 1, 50 000 ml @ 50 mls/hr IV . Q21H VAN with Sodium Bicarb (1 Meq/ml) 50 ml Rx#:[id number] Intake, IV Titration 874.986 250 Amount Ampicillin-Sulbactam 3 gm 100 100 In Sodium Chloride 0.9% 100 ml @ 200 mls/hr IVPB Q12HR VAN Rx#:[id number] DAPTOmycin 500 mg In 50 Sodium Chloride 0.9% 50 ml @ 100 mls/hr IVPB Q48H VAN Rx#:[id number] Dextrose 5% in Water 1, 550 100 000 ml @ 50 mls/hr IV . Q23H VAN with Sodium Bicarb (1 Meq/ml) 150 ml Rx#:[id number] Heparin Sod,Pork in 0.45% 224.986 NaCl 25,000 unit In 0.45 % NaCl 1 250ml.bag @ 18 UNITS/KG/HR 16.329 mls/hr IV .[id number] VAN Rx#: [id number] Output: Urine 175 250 Other: Voiding Method Urinal Urinal # Voids 0 0 - Exam General appearance: The patient is alert, oriented, appears in no acute distress. HET: Head is normocephalic and atraumatic. Conjunctiva pink. Sclera anicteric. Neck: Supple without lymphadenopathy. Abdomen: Soft, nontender, nondistended with bowel sounds. No guarding or rigidity. Extremities: Left lower extremity with swelling, thigh high KAYDEN hose in place. Skin: No rashes, no jaundice Neurological: No focal deficits. Alert and oriented x 3. - Labs CBC & Chem 7: 10/19/21 06:49 10/19/21 06:49 Labs: Abnormal Lab Results - Last 24 Hours (Table) 10/18/21 10/18/21 10/19/21 Range/Units 11:33 20:18 06:49 WBC 12.9 H (3.8-10.6) k/uL RBC 3.81 L (4.30-5.90) m/uL Hgb 11.9 L (13.0-17.5) gm/dL Hct 38.0 L (39.0-53.0) % RDW 17.4 H (11.5-15.5) % Plt Count 104 L (150-450) k/uL Neutrophils # 11.6 H (1.3-7.7) k/uL Lymphocytes # 0.5 L (1.0-4.8) k/uL APTT (22.0-30.0) sec Sodium (137-145) mmol/L BUN (9-20) mg/dL Creatinine (0.66-1.25) mg/dL POC Glucose (mg/dL) 146 H 126 H (75-99) mg/dL Calcium (8.4-10.2) mg/dL Total Bilirubin (0.2-1.3) mg/dL AST (17-59) U/L ALT (4-49) U/L Total Protein (6.3-8.2) g/dL Albumin (3.5-5.0) g/dL 10/19/21 10/19/21 Range/Units 06:49 06:49 WBC (3.8-10.6) k/uL RBC (4.30-5.90) m/uL Hgb (13.0-17.5) gm/dL Hct (39.0-53.0) % RDW (11.5-15.5) % Plt Count (150-450) k/uL Neutrophils # (1.3-7.7) k/uL Lymphocytes # (1.0-4.8) k/uL APTT 60.4 H (22.0-30.0) sec Sodium 133 L (137-145) mmol/L BUN 83 H (9-20) mg/dL Creatinine 3.99 H (0.66-1.25) mg/dL POC Glucose (mg/dL) (75-99) mg/dL Calcium 6.7 L (8.4-10.2) mg/dL Total Bilirubin 1.7 H (0.2-1.3) mg/dL AST 371 H (17-59) U/L ALT 946 H (4-49) U/L Total Protein 5.2 L (6.3-8.2) g/dL Albumin 2.6 L (3.5-5.0) g/dL Microbiology - Last 24 Hours (Table) 10/16/21 21:06 Blood Culture - Preliminary Blood No Growth after 48 hours Assessment and Plan (1) Elevated LFTs Narrative/Plan: 66-year-old male who presented to the emergency department with complaints of left lower extremity pain. He has multiple comorbidities including history of coronary artery disease status post stenting and 5 MIs. He came in with elevated lactic acid, elevated troponins, white count, and elevation in his total bilirubin, LFTs. Gallbladder ultrasound was obtained showing multiple gallstones without any CBD dilation. Also stating possible underlying hepatocellular disease due to echotexture of liver. Patient denies any current abdominal pain. He did state that he did have some abdominal discomfort yeste rday with some nausea and vomiting. He is more concerned with some shortness of breath and left lower extremity pain for which he was diagnosed with a DVT. Due to elevated total bilirubin and LFTs gastroenterology was asked to evaluate patient for possible choledocholithiasis. Patient no longer is experiencing pain however may have passed the stone. We'll await repeat labs and MRCP. Patient currently on a heparin drip. Acute rise in LFTs likely related to acute ischemic hepatitis related to sepsis and hypotension. Patient also may have underlying hepatocellular disease related to hepatic steatosis. Initial MRCP impression stated cholelithiasis, hepatosplenomegaly. Cardiomegaly. Right pleural effusion, ascites. Today radiologist reviewed the MRCP and added an addendum that states there was questionable filling defects within the distal common bile duct not well replicated on the 3-dimensional post processed images. Difficult to exclude choledochal lithiasis as stated in re port. Patient has not had any abdominal pain, nausea or vomiting since prior to his admission. He has continuing improvement in his leukocytosis and LFTs. The patient may have passed a CBD stone at some point, however again patient is asymptomatic at this time with improvement in his overall condition. He remains hypotensive, he has ischemic cardiomyopathy with severe LV dysfunction, he is on a heparin drip for DVT and was seen by cardiology who states patient is high risk for perioperative cardiac events and surgery should be avoided unless absolutely necessary. At this time we will continue to monitor, with no plans on ERCP at this time. Current Visit: Yes Status: Acute Code(s): R79.89 - OTHER SPECIFIED ABNORMAL FINDINGS OF BLOOD CHEMISTRY SNOMED Code(s): 231392241 (2) Acute kidney injury Current Visit: Yes Status: Acute Code(s): N17.9 - ACUTE KIDNEY FAILURE, UNSPECIFIED SNOMED Code(s): 44497388 (3) Cholelithiasis Current Visit: Yes Status: Acute Code(s): K80.20 - CALCULUS OF GALLBLADDER W/O CHOLECYSTITIS W/O OBSTRUCTION SNOMED Code(s): 277051747 (4) Coronary artery disease Narrative/Plan: Cardiology following closely, they were consulted for cardiac clearance for possible ERCP. They have seen the patient and states he is at high risk for. Operative cardiac events. Avoid surgery unless absolutely necessary. Current Visit: Yes Status: Acute Code(s): I25.10 - ATHSCL HEART DISEASE OF [place] CORONARY ARTERY W/O ANG PCTRS SNOMED Code(s): 11582947 (5) DVT, lower extremity Current Visit: Yes Status: Acute Code(s): I82.409 - ACUTE EMBOLISM AND THOMBOS UNSP DEEP VN UNSP LOWER EXTREMITY SNOMED Code(s): 591076032 (6) Hypotension Current Visit: Yes Status: Acute Code(s): I95.9 - HYPOTENSION, UNSPECIFIED SNOMED Code(s): 68349504 (7) Lactic acidosis Current Visit: Yes Status: Acute Code(s): E87.2 - ACIDOSIS SNOMED Code(s): 15953482 (8) Leukocytosis Narrative/Plan: Infectious disease on consult, WBC improving Current Visit: Yes Status: Acute Code(s): D72.829 - ELEVATED WHITE BLOOD CELL COUNT, UNSPECIFIED SNOMED Code(s): 210777396 (9) Type 2 diabetes mellitus Current Visit: Yes Status: Acute Code(s): E11.9 - TYPE 2 DIABETES MELLITUS WITHOUT COMPLICATIONS SNOMED Code(s): 03834057 Plan: 1. Continue symptomatic and supportive care 2. Patient may advance to low-fat diet 3. Repeat CBC, CMP, INR daily 4. Cardiology consulted recommendations appreciated 5. MRCP addendum reviewed 10/19/2021 6. No plans at this time for ERCP 7. Appreciate general surgery recommendations 8. Avoid hepatotoxic medications 9. Continue with ICU/medical management Thank you for this consultation, we will continue to follow Dr. Josefina Leblanc I agree with the dictator's note, documented as a scribe by Mery Clancy.
--- NOTE | 2021-10-19 14:21 | P.PN ---
Subjective Progress Note Date: 10/19/21 Principal diagnosis: Acute deep vein thrombosis left lower extremity This is a 66-year-old white male with history of multiple medical problems including three-vessel coronary artery disease, ischemic cardiomyopathy and LV dysfunction, declined AICD placement in the past. Patient was seen yesterday at [facility] ER in [place], and he felt that he may have had food poi soning as he presented mostly with symptoms nausea vomiting and diarrhea. Patient was noted to have multiple abnormal labs, however further workup revealed evidence of left lower extremity DVT. Patient was transferred to [facility], and he was noted to have left lower extremity DVT, many abnormal labs including CBC showing leukocytosis with WBC count of 24.8. Elevated INR of 1.8. Elevated potassium of 6.5. Elevated BUN of 53 and creatinine of 3.29. Patient was also noted to be acidotic with an anion gap metabolic acidosis of 17. Elevated total bilirubin of 2.8, elevated liver enzymes with AST of 3128 and elevated ALT of 1450. Elevated troponin of 2.46. Elevated BNP of 57,000. And elevated lactic acid of 5.6. Considering the multiple abnormalities noted, patient was seen by many consultants. And he had extensive workup over the last 24 hours. The workup included a chest x-ray which showed cardiomegaly, and minimal basilar atelectasis. Ultrasound of the gallbladder showed evidence of cholelithiasis, and radiologist raised the possibility of cholecystitis with underlying hepatocellular disease and hepatic steatosis VQ scan was nondiagnostic. Patient had abdominal bladder ultrasound and this is pending. Patient was seen by vascular surgery for DVT, and the recommendation was basically continue heparin, no surgical intervention was felt to be necessary patient was seen by general surgery for his cholelithiasis, and the recommendation was observation and watch him closely, patient did not have clinical symptoms of cholecystitis. Patient was seen by cardiology for his LV dysfunction and history of ischemic cardiomyopathy, the recommendation was supportive care measures, high surgical risk. Avoid surgery unless it is absolutely necessary, seen by nephrology for his acute kidney injury felt to be secondary to hypotension with oligoria, and the recommendation was to check a bladder scan, rule out urinary retention, and recommended bicarb drip. And recommended mostly renal ultrasound and avoiding nephrotoxic agents considering his complex multiple medical problems, I was notified about this patient by the admitting physician Dr. Johnson, and I arranged for the patient to be admitted to the ICU. In the meantime I'm recommending that we follow the recommendation of different consultants on the case and monitor the patient closely. In the meantime continue heparin. And continue antibiotics. Patient will be seen by infectious disease on consultation. Reevaluated today on 10/18/21, patient remains in the ICU, feeling a bit better today compared to yesterday. Hardly any shortness of breath. No abdominal pain. No nausea no vomiting. Surprisingly his liver enzymes are showing significant improvement since admission. Renal functioning is a bit worse. WBC count is 16 hemoglobin is 12, PTT is therapeutic at 63.5. Electrolytes are normal BUN however is up to 74 creatinine up to 4.12. AST is down to 749 and ALT is down to 1351. Patient had MRCP, and basically nondiagnostic. In the meantime the patient remains on daptomycin and on Unasyn. For presumptive clinical suspicion of acute cholecystitis and cholangitis, blood cultures have been negative since admission. Pulmonary-gagnon the patient is doing fairly well. Reevaluated today on 10/19/21, patient seems to be doing fairly well, remains in the ICU, no major issues over the last 24 hours. Patient denies any shortness of breath denies any cough denies any chest pain no nausea no vomiting no abdominal pain. He is on few liters nasal cannula, not in any distress, remains on sodium bicarb drip, at 50 mL per hour. Remains on daptomycin and Unasyn. Chest x-ray showed minimal bilateral atelectasis, no evidence of infiltrate or pneumonia and no evidence of congestive heart failure. WBC count is 12.9 hemoglobin 11.9 PTT is therapeutic at lites are normal renal profile remains poor with a creatinine of 3.99. BUN of 83. Liver enzymes are improving AST is down to 371 ALT 946. Alkaline phosphatase is 58 Objective - Vital Signs Vital signs: Vital Signs Temp 98.2 F 10/19/21 08:00 Pulse 77 10/19/21 10:00 Resp 17 10/19/21 10:00 BP 111/76 10/19/21 10:00 Pulse Ox 93 L 10/19/21 10:00 FiO2 Intake & Output 10/18/21 10/19/21 10/19/21 18:59 06:59 18:59 Intake Total 924.986 250 349.026 Output Total 175 250 325 Balance 749.986 0 24.026 Weight 105.7 kg Intake: IV 50 Dextrose 5% in Water 1, 50 000 ml @ 50 mls/hr IV . Q21H VAN with Sodium Bicarb (1 Meq/ml) 50 ml Rx#:[id number] Intake, IV Titration 874.986 250 349.026 Amount Ampicillin-Sulbactam 3 gm 100 100 100 In Sodium Chloride 0.9% 100 ml @ 200 mls/hr IVPB Q12HR VAN Rx#:[id number] DAPTOmycin 500 mg In 50 Sodium Chloride 0.9% 50 ml @ 100 mls/hr IVPB Q48H VAN Rx#:[id number] Dextrose 5% in Water 1, 550 100 000 ml @ 50 mls/hr IV . Q23H VAN with Sodium Bicarb (1 Meq/ml) 150 ml Rx#:[id number] Heparin Sod,Pork in 0.45% 224.986 249.026 NaCl 25,000 unit In 0.45 % NaCl 1 250ml.bag @ 18 UNITS/KG/HR 16.329 mls/hr IV .[id number] VAN Rx#: [id number] Output: Urine 175 250 325 Other: Voiding Method Urinal Urinal Urinal # Voids 0 0 - Exam GENERAL: Revealed a 66-year-old white male, in no distress. Head: Atraumatic, normocephalic. EYES: Pupils equal. Conjunctiva normal. HEENT: Normal nasal mucosa and normal oral mucosa, throat is clear. NECK: No neck masses no JVD no stridor. HEART: Normal S1 and S2, no S3 gallop. No murmur. LUNGS: Symmetrical chest expansion, clear throughout no crackles or rhonchi or wheezes. ABDOMEN: Soft nontender no megaly no rebound no guarding. PSYCH: Normal mood affect and normal mental status examination. MUSCULOSKELETAL: No deformities and no limitation in range of motion. EXTREMITIES: Left lower extremity showed evidence of chronic venous stasis changes noted in both lower extremities. No evidence of mottling. Good pulses palpable bilaterally NEUROLOGICAL: Alert and oriented 3 focal deficits. Skin: Chronic venous stasis noted in both lower extremities. - Labs CBC & Chem 7: 10/19/21 06:49 06/16/22 06:49 Labs: Abnormal Lab Results - Last 24 Hours (Table) 10/18/21 10/19/21 10/19/21 Range/Units 20:18 06:49 06:49 WBC 12.9 H (3.8-10.6) k/uL RBC 3.81 L (4.30-5.90) m/uL Hgb 11.9 L (13.0-17.5) gm/dL Hct 38.0 L (39.0-53.0) % RDW 17.4 H (11.5-15.5) % Plt Count 104 L (150-450) k/uL Neutrophils # 11.6 H (1.3-7.7) k/uL Lymphocytes # 0.5 L (1.0-4.8) k/uL APTT 60.4 H (22.0-30.0) sec Sodium (137-145) mmol/L BUN (9-20) mg/dL Creatinine (0.66-1.25) mg/dL POC Glucose (mg/dL) 126 H (70-110) mg/dL Calcium (8.4-10.2) mg/dL Total Bilirubin (0.2-1.3) mg/dL AST (17-59) U/L ALT (4-49) U/L Total Protein (6.3-8.2) g/dL Albumin (3.5-5.0) g/dL 10/19/21 10/19/21 Range/Units 06:49 11:15 WBC (3.8-10.6) k/uL RBC (4.30-5.90) m/uL Hgb (13.0-17.5) gm/dL Hct (39.0-53.0) % RDW (11.5-15.5) % Plt Count (150-450) k/uL Neutrophils # (1.3-7.7) k/uL Lymphocytes # (1.0-4.8) k/uL APTT (22.0-30.0) sec Sodium 133 L (137-145) mmol/L BUN 83 H (9-20) mg/dL Creatinine 3.99 H (0.66-1.25) mg/dL POC Glucose (mg/dL) 113 H (70-110) mg/dL Calcium 6.7 L (8.4-10.2) mg/dL Total Bilirubin 1.7 H (0.2-1.3) mg/dL AST 371 H (17-59) U/L ALT 946 H (4-49) U/L Total Protein 5.2 L (6.3-8.2) g/dL Albumin 2.6 L (3.5-5.0) g/dL Microbiology - Last 24 Hours (Table) 10/16/21 21:06 Blood Culture - Preliminary Blood No Growth after 48 hours Assessment and Plan Assessment: Impression: Acute deep vein thromboses involving left lower extremity. Suspect possible cholecystitis. Acute hepatitis. Acute kidney injury possibly acute on chronic kidney disease. Could very well be cardiorenal in nature. Coronary artery disease and history of severe ischemic cardiomyopathy and LV dysfunction Type 2 diabetes. Dyslipidemia. Benign essential hypertension. Acute anion gap metabolic acidosis, multifactorial, but mostly secondary to his acute kidney injury. Acute hyperkalemia secondary to acute kidney injury. Resolved. Recommendation: Continue heparin Change bicarb drip to oral bicarb. Continue antibiotics presently on Unasyn and daptomycin Continue to monitor electrolytes especially potassium. Continue to monitor liver enzymes. Steadily improving Avoid nephrotoxic agents. Monitor blood sugars closely and address accordingly. Will transfer patient to a cardiac floor today. Time with Patient: Less than 30
--- NOTE | 2021-10-19 15:08 | P.PN ---
Progress Note - Text Progress Note Date: 10/19/21 Chief Complaint: Left leg pain This is a pleasant 66-year-old patient, follows with Dr. Mike Escobar. Chronic stable medical conditions include CAD with stent, diabetes, hypertension, hyperlipidemia anxiety. Yesterday patient was walking about in [facility] when he started feeling unwell. Decided to leave the store and came to the parking lot. Sat down there. Decided to drive home. Patient has several bouts of nausea and vomiting. [place] of the ER. He was then discharged last night. Denied any fever and chills. Had some abdominal pain. Settle down. He did gets IV fluids at the other hospital. Patient very early this morning started having pain from mid thigh down the leg. Rather significant. No injury. Patient had some sweating for some time. In the ER was found to have a common femoral relevant DVT. Also had arterial Doppler done which was reviewed by Dr. Mike found to be normal. No arterial compromise. Denies any nausea vomiting abdominal pain today. Patient noted to have increased LFTs compared to the was done at [facility]. Admitted with: Acute DVT of the left common femoral vein, choledocholithiasis asymptomatic, acute ischemic hepatitis, acute kidney injury, metabolic acidosis, positive blood cultures from the outside hospital. Patient started IV heparin, sodium bicarbonate drip, IV cefepime and IV daptomycin,. Acute arterial compromise was ruled out by arterial Doppler by Dr. Mike. Hyperkalemia treated. October 17: Because of multiple issues patient smoked in the ICU yesterday evening. Today patient on 5 L of nasal cannula. Decreased urine output. Bicarbonate drip. IV heparin. Doppler ultrasound showing distal pulses. October 18: ICU: Was up in a chair today. IV heparin. IV bicarbonate drip. 4 L nasal cannula. Had blisters on lower extremity. They will popped by vascular. October 19: ICU: Reclining in bed. IV heparin. After bicarbonate drip. KAYDEN stockings. 4 L nasal cannula. Did eat some food. Active Medications Acetaminophen (Acetaminophen Tab 325 Mg Tab) 325 mg PO Q6H PRN PRN Reason: Pain or Fever > 100.5 Alprazolam (Alprazolam 0.25 Mg Tab) 0.25 mg PO BID PRN PRN Reason: Anxiety Last Admin: 10/18/21 23:39 Dose: 0.25 mg Aspirin (Aspirin 81 Mg) 81 mg PO DAILY [facility] Last Admin: 10/19/21 09:53 Dose: 81 mg Fluoxetine HCl (Fluoxetine Hcl 20 Mg Cap) 20 mg PO HS [facility] Last Admin: 10/18/21 21:11 Dose: 20 mg Heparin Sodium (Porcine) (Heparin Sodium 1,000 Un/Ml (10ml Vl)) 0 unit IV PER PROTOCOL PRN; Protocol PRN Reason: Low PTT Hydromorphone HCl (Hydromorphone 0.5 Mg/0.5 Ml Syringe) 0.5 mg IVP Q3HR PRN PRN Reason: Moderate Pain Last Admin: 10/19/21 09:52 Dose: 0.5 mg Heparin Sodium/Sodium Chloride (25,000 unit/ Sodium Chloride) 250 mls @ 16.329 mls/hr IV .[id number] [facility]; Protocol Last Admin: 10/19/21 09:51 Dose: 15 units/kg/hr, 13.608 mls/hr Daptomycin 500 mg/ Sodium (Chloride) 50 mls @ 100 mls/hr IVPB Q48H [facility] Last Admin: 10/18/21 21:11 Dose: 100 mls/hr Ampicillin Sodium/Sulbactam (Sodium 3 gm/ Sodium Chloride) 100 mls @ 200 mls/hr IVPB Q12HR [facility]; Protocol Last Admin: 10/19/21 09:53 Dose: 200 mls/hr Insulin Aspart (Insulin Aspart (Novolog) 100 Unit/Ml Vial) 0 unit SQ AC-TID [facility]; Protocol Last Admin: 10/19/21 11:57 Dose: Not Given Insulin Detemir (Insulin Detemir (Levemir) 100 Unit/Ml Syr) 15 unit SQ [facility] Last Admin: 10/18/21 21:11 Dose: 15 unit Naloxone HCl (Naloxone 0.4 Mg/Ml 1 Ml Vial) 0.2 mg IV Q2M PRN PRN Reason: Opioid Reversal Nitroglycerin (Nitroglycerin Sl Tabs 0.4 Mg Tab) 0.4 mg SUBLINGUAL Q5M PRN PRN Reason: Chest Pain Ondansetron HCl (Ondansetron 4 Mg/2 Ml Vial) 4 mg IVP Q8HR PRN PRN Reason: Nausea And Vomiting Past medical history to include: CAD with stent, diabetes, hypertension, hyperlipidemia, skin cancer on the nose in August 2020, anxiety 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 Nonsmoker. Alcohol rarely. Family history: Diabetes, CAD Physical examination: VITAL SIGNS: 98.2, 97, 16, 128/90, 90% on 4 L GENERAL: reclining in the bed EYES: Pupils equal. Conjunctiva normal. HEENT: External appearance of nose and ears normal, oral cavity grossly normal. NECK: JVD not raised; masses not palpable. HEART: First and second heart sounds are normal; some edema. LUNGS: Respiratory rate increased; decreased breath sound . ABDOMEN: Soft, nontender, liver spleen not palpable, no masses palpable. PSYCH: [Alert and oriented x3; mood and affect slightly anxious MUSCULOSKELETAL:No Clubbing/cyanosis;muscles-grossly intact EXTREMITIES: Shiny skin lower extremity.necrobiosis lipoidica. Edema present. ischemic and fungal nails. Some tenderness. KAYDEN stockings NEUROLOGICAL: Cranial nerves grossly intact; no facial asymmetry, power and hyper sensation lower extremity INVESTIGATIONS, reviewed in the clinical context: October 19: WBC 12.9 hemoglobin 11.9 platelets 104 potassium 3.8. 83 creatinine 3.9 01/06/1971 ALT 946 albumin 2.6 2-D echocardiogram: EF 20-25%. October 18: White count 16 hemoglobin 12 platelets 149 sodium 135 potassium 4.4 creatinine 4.12 AST 749 ALT 1351 October 17: White count 20.1 hemoglobin 1.4 platelets 154 INR 2.4 sodium 132 potassium 6 BUN 57 creatinine 3.47 lactic acidosis 3.5 AST 08/06/2008 ALT 2181 White count 31.4 hemoglobin 15.4 platelets 267 sodium 139 potassium 6.2 bicarbonate 12 BUN 41 creatinine 2.81 lactic acid 11.6 AST 494 ALT 240 troponin I 0.640, 2.4 EKG tracing personally reviewed by me-intraventricular block. Sinus rhythm. First-degree AV block. Left lower extremity venous Doppler: DVT in the common femoral vein. Chest x-ray film personally reviewed by me-cardiomegaly. Lungs clear Gallbladder ultrasound: Gallbladder filled with stones. Possible hepatic steatosis. Arterial Doppler results discussed with Dr. Mike: No evidence of vascular compromise Assessment and plan: -Acute DVT of the left common femoral vein, likely precipitated from acute gastroenteritis and decreased activity. IV heparin monitoring. KAYDEN stockings. -Acute hypoxic respiratory failure, likely from CHF On 4 L nasal cannula -Ischemic cardiomyopathy, EF 20-25% -Sepsis with positive blood cultures [ from outside hospital]. Blood cultures from October 16 negative IV Unasyn -Choledocholithiasis. Asymptomatic. -Episode of acute food poisoning day prior to admission Self-limited. -Acute hepatitis. Likely ischemic.: Improving Follow-up with GI -Troponinemia, likely from hemodynamic mismatch. Setting of acute kidney injury. No chest pain. IV heparin -CAD with a history of stent Aspirin 81 mg daily -Diabetes mellitus type 2, chronically on insulin Follow Accu-Cheks and sliding scale insulin. Levemir 15 units at night -Hyperlipidemia Given the elevated LFTs hold Zocor. -Essential hypertension Currently blood pressure is running low likely because of dehydration from nause a vomiting . Hold off Norvasc -Lower extremity edema possibly from Norvasc and DVT KAYDEN stockings, bilateral -Acute kidney injury, ATN from sepsis and prerenal from nausea vomiting: Slow to respond Patient's creatinine was 1.7 on August 25. 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 Creatinine 1.7 in August 2021 -Hyperkalemia from metabolic acidosis: corrected Renal diet. Lokelma. Sodium bicarbonate drip. -Anxiety not otherwise specified Xanax 0.25 mg by mouth twice a day -IV heparin monitoring Follow PTT -Full code IV heparin. . Strict I's and O's. IV Unasyn . Incentive spirometry. 4 L nasal cannula. Levemir.
[2021-10-19 16:13] LABS: Glucose,Whole Blood 146 mg/dL (70-110)
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
[2021-10-19 18:36] LABS: INR 1.2 (<1.2); Prothrombin Time 12.6 sec (9.0-12.0)
[2021-10-19 20:24] LABS: Glucose,Whole Blood 174 mg/dL (70-110)
[2021-10-19] MEDS: INSULIN DETEMIR (LEVEMIR) 100 UNIT/ML SYR SQ SCH (20:24)
[2021-10-19] MEDS: FLUoxetine HCL 20 MG CAP PO SCH (20:24)
[2021-10-19 21:10] LABS: Anisocytosis Slight; Basophils # (A) 0.1 k/uL (0-0.2); Basophils % (A) 0 %; Eosinophils # (A) 0.2 k/uL (0-0.7); Eosinophils % (A) 1 %; HGB 12.6 gm/dL (13.0-17.5); Hypochromasia Slight; Lymphocytes # (A) 0.5 k/uL (1.0-4.8); Lymphocytes % (A) 3 %; MCH 31.5 pg (25.0-35.0); MCHC 31.6 g/dL (31.0-37.0); MCV 99.6 fL (80.0-100.0); Macrocytosis Slight; Mean Platelet Volume 9.6; Monocytes # (A) 0.7 k/uL (0-1.0); Monocytes % (A) 5 %; Neutrophils % (A) 90 %; Poikilocytosis Slight; RBC 4.02 m/uL (4.30-5.90); RDW 17.1 % (11.5-15.5); WBC 14.5 k/uL (3.8-10.6)
[2021-10-19 21:19] LABS: Platelet Count 92 k/uL (150-450)
[2021-10-20] MEDS: HYDROmorphone 0.5 MG/0.5 ML SYRINGE IVP PRN ×3 (01:16→22:31)
[2021-10-20] MEDS: ALPRAZolam 0.25 MG TAB PO PRN (01:24)
[2021-10-20] MEDS: HEPARIN SOD,PORK IN 0.45% NACL 25,000 UNIT in 0.45% NACL 1 250ML.BAG IV SCH (03:46)
[2021-10-20 06:17] LABS: Glucose,Whole Blood 97 mg/dL (70-110)
[2021-10-20] MEDS: INSULIN ASPART (NovoLOG) 100 UNIT/ML VIAL SQ SCH ×3 (06:31→17:15)
[2021-10-20 08:14] LABS: Anisocytosis Slight; Basophils % (A) 0 %; Eosinophils # (A) 0.2 k/uL (0-0.7); Eosinophils % (A) 1 %; HCT 39.8 % (39.0-53.0); HGB 12.5 gm/dL (13.0-17.5); Hypochromasia Slight; Lymphocytes # (A) 0.5 k/uL (1.0-4.8); Lymphocytes % (A) 4 %; MCH 31.5 pg (25.0-35.0); MCHC 31.4 g/dL (31.0-37.0); MCV 100.2 fL (80.0-100.0); Macrocytosis Slight; Monocytes # (A) 0.7 k/uL (0-1.0); Monocytes % (A) 5 %; Neutrophils # (A) 11.3 k/uL (1.3-7.7); Neutrophils % (A) 88 %; Poikilocytosis Slight; RBC 3.98 m/uL (4.30-5.90); RDW 17.3 % (11.5-15.5); WBC 12.9 k/uL (3.8-10.6)
[2021-10-20 08:19] LABS: Platelet Count 93 k/uL (150-450)
[2021-10-20 08:29] LABS: Albumin 2.9 g/dL (3.5-5.0); Calcium 7.5 mg/dL (8.4-10.2); Potassium 3.9 mmol/L (3.5-5.1); Total Bilirubin 1.9 mg/dL (0.2-1.3); Total Protein 5.8 g/dL (6.3-8.2)
[2021-10-20] MEDS: AMPICILLIN-SULBACTAM 3 GM in SODIUM CHLORIDE 0.9% 100 ML IVPB SCH ×2 (08:35→20:34)
[2021-10-20] MEDS: ASPIRIN 81 MG PO SCH (08:35)
--- NOTE | 2021-10-20 09:05 | P.PN ---
Subjective Progress Note Date: 10/20/21 Principal diagnosis: Left lower extremity DVT Patient is seen and examined today as a follow-up for left lower extremity DVT. He remains in the ICU. Remains on IV heparin drip. Blood pressure improving. Liver enzymes improving. He denies any shortness of breath or chest pain. States in his left lower extremity has improved. He does have a KAYDEN hose in place. He remains afebrile. He denies any abdominal pain, nausea, vomiting, body aches or chills. There is some notable swelling in the left side with some redness. WBC 12.9 hemoglobin 12.5, platelet count 93,000 Sodium 135 potassium 3.9 BUN 80 creatinine 3.88 total bilirubin 1.9 AST 178 ALT 697 Objective - Vital Signs Vital signs: Vital Signs Temp 97.8 F 10/20/21 04:00 Pulse 80 10/20/21 04:00 Resp 22 10/20/21 04:00 BP 132/69 10/20/21 04:00 Pulse Ox 94 L 10/20/21 08:53 FiO2 Intake & Output 10/19/21 10/20/21 10/20/21 18:59 06:59 18:59 Intake Total 349.026 243.81 67.133 Output Total 550 450 Balance -200.974 -206.19 67.133 Intake: Intake, IV Titration 349.026 243.81 67.133 Amount Ampicillin-Sulbactam 3 gm 100 In Sodium Chloride 0.9% 100 ml @ 200 mls/hr IVPB Q12HR [facility] Rx#:[id number] Heparin Sod,Pork in 0.45% 249.026 243.81 67.133 NaCl 25,000 unit In 0.45 % NaCl 1 250ml.bag @ 18 UNITS/KG/HR 16.329 mls/hr IV .[id number] [facility] Rx#: [id number] Output: Urine 550 450 Other: Voiding Method Urinal Urinal # Voids 0 1 - Exam General appearance: The patient is alert, oriented, appears in no acute distress. HET: Head is normocephalic and atraumatic. Conjunctiva pink. Sclera anicteric. Neck: Supple without lymphadenopathy. Abdomen: Soft, nontender, nondistended with bowel sounds. No guarding or rigidity. Extremities: Left lower extremity with swelling up to his left groin, thigh with some erythema. Palpable bilateral femoral pulses. Nonpalpable DP and PT pulses. Positive DP and PT Doppler signal. Left fourth toe previous amputation site well healed. Skin: No rashes, no jaundice Neurological: No focal deficits. Alert and oriented x 3. - Labs CBC & Chem 7: 10/20/21 07:24 10/20/21 07:24 Labs: Abnormal Lab Results - Last 24 Hours (Table) 10/19/21 10/19/21 10/19/21 Range/Units 11:15 16:12 18:17 WBC (3.8-10.6) k/uL RBC (4.30-5.90) m/uL Hgb (13.0-17.5) gm/dL MCV (80.0-100.0) fL RDW (11.5-15.5) % Plt Count (150-450) k/uL Neutrophils # (1.3-7.7) k/uL Lymphocytes # (1.0-4.8) k/uL PT 12.6 H (9.0-12.0) sec INR 1.2 H (<1.2) APTT (22.0-30.0) sec Fibrinogen 894 H (200-500) mg/dL Sodium (137-145) mmol/L Chloride (98-107) mmol/L BUN (9-20) mg/dL Creatinine (0.66-1.25) mg/dL POC Glucose (mg/dL) 113 H 146 H (70-110) mg/dL Calcium (8.4-10.2) mg/dL Total Bilirubin (0.2-1.3) mg/dL AST (17-59) U/L ALT (4-49) U/L Lactate Dehydrogenase (313-618) U/L Total Protein (6.3-8.2) g/dL Albumin (3.5-5.0) g/dL 10/19/21 10/19/21 10/19/21 Range/Units 18:17 20:23 20:30 WBC 14.5 H (3.8-10.6) k/uL RBC 4.02 L (4.30-5.90) m/uL Hgb 12.6 L (13.0-17.5) gm/dL MCV (80.0-100.0) fL RDW 17.1 H (11.5-15.5) % Plt Count 92 L (150-450) k/uL Neutrophils # 13.0 H (1.3-7.7) k/uL Lymphocytes # 0.5 L (1.0-4.8) k/uL PT (9.0-12.0) sec INR (<1.2) APTT (22.0-30.0) sec Fibrinogen (200-500) mg/dL Sodium (137-145) mmol/L Chloride (98-107) mmol/L BUN (9-20) mg/dL Creatinine (0.66-1.25) mg/dL POC Glucose (mg/dL) 174 H (70-110) mg/dL Calcium (8.4-10.2) mg/dL Total Bilirubin (0.2-1.3) mg/dL AST (17-59) U/L ALT (4-49) U/L Lactate Dehydrogenase 905 H (313-618) U/L Total Protein (6.3-8.2) g/dL Albumin (3.5-5.0) g/dL 10/20/21 10/20/21 10/20/21 Range/Units 07:24 07:24 07:24 WBC 12.9 H (3.8-10.6) k/uL RBC 3.98 L (4.30-5.90) m/uL Hgb 12.5 L (13.0-17.5) gm/dL MCV 100.2 H (80.0-100.0) fL RDW 17.3 H (11.5-15.5) % Plt Count 93 L (150-450) k/uL Neutrophils # 11.3 H (1.3-7.7) k/uL Lymphocytes # 0.5 L (1.0-4.8) k/uL PT (9.0-12.0) sec INR (<1.2) APTT 40.3 H (22.0-30.0) sec Fibrinogen (200-500) mg/dL Sodium 135 L (137-145) mmol/L Chloride 97 L (98-107) mmol/L BUN 80 H (9-20) mg/dL Creatinine 3.88 H (0.66-1.25) mg/dL POC Glucose (mg/dL) (70-110) mg/dL Calcium 7.5 L (8.4-10.2) mg/dL Total Bilirubin 1.9 H (0.2-1.3) mg/dL AST 178 H (17-59) U/L ALT 697 H (4-49) U/L Lactate Dehydrogenase (313-618) U/L Total Protein 5.8 L (6.3-8.2) g/dL Albumin 2.9 L (3.5-5.0) g/dL Microbiology - Last 24 Hours (Table) 10/16/21 21:06 Blood Culture - Preliminary Blood No Growth after 72 hours Assessment and Plan Assessment: 1. Left lower extremity DVT 2. Positive lactic acid 3. Hypotension 4. Elevated troponins 5. Shortness of breath 6. Acute kidney injury 7. Ischemic cardiomyopathy with LV dysfunction. 8. Acute hepatitis likely from shock liver 9. Leukocytosis 10. Thrombocytopenia 11. History of coronary artery disease status post ND, cardiac stents 12. Diabetes mellitus 13. Previous left toe amputation for diabetic wound/infection Plan: 1. Defer anticoagulation recommendations to hematology 2. Continue to monitor CBC, platelets 3. Consult to hematology for thrombocytopenia, possible HIT 4. Activity as tolerated and per recommendations from ICU/medical management 5. No indication for any vascular surgical intervention at this time. 6. Continue ICU/medical management 7. KAYDEN hose, thigh-high to left lower extremity 8. We will sign off at this time. Thank you for this consultation, we will sign off at this time. The impression and plan of care has been dictated as directed. Dr. Mike I performed a history and examination of this patient, discussed the same with the dictator. I agree with the dictator's note ,documented as a scribe. Any additional findings or plans will be noted.
[2021-10-20] MEDS: APIXABAN 5 MG TAB PO SCH ×2 (10:20→20:33)
--- NOTE | 2021-10-20 10:57 | P.PN ---
Subjective Progress Note Date: 10/20/21 CHIEF COMPLAINT: Left leg DVT HISTORY OF PRESENT ILLNESS: Surgical service following in regards to patient's gallstones. He denies any abdominal pain. Denies any nausea or vomiting. He is tolerating regular diet. Patient has been switched to Eliquis for his DVT. Patient evaluated by GI service. Currently not recommending ERCP. Patient evaluated by cardiology and is considered high risk for any interventions. He has history of ischemic cardiomyopathy. Afebrile. WBC 12.9 hemoglobin 12.5-93 sodium 135 potassium 3.9 and creatinine 3.88 AST and ALT show slight improvement. Total bilirubin did go up from 1.7-1.9 Patient seen and examined with Dr. coombs PHYSICAL EXAM: VITAL SIGNS: Reviewed. GENERAL: Well-developed in no acute distress. HEENT: No sclera icterus. Extraocular movements grossly intact. Moist buccal mucosa. Head is atraumatic, normocephalic. ABDOMEN: Soft. Nondistended. Nontender. NEUROLOGIC: Alert and oriented. Cranial nerves II through XII grossly intact. ASSESSMENT: 1. Cholelithiasis. No abdominal pain. No significant sign of cholecystitis. 2. Choledocholithiasis 3. Cholangitis resolving 4. Left leg DVT PLAN: -Continue to monitor -No surgical intervention planned -Continue antibiotics -Continue supportive care Physician Manager Rn Case note has been reviewed by physician. Signing provider agrees with the documented findings, assessment, and plan of care. Objective - Vital Signs Vital signs: Vital Signs Temp 98.0 F 10/20/21 08:00 Pulse 81 10/20/21 08:00 Resp 20 10/20/21 08:00 BP 122/74 10/20/21 08:00 Pulse Ox 94 L 10/20/21 08:53 FiO2 Intake & Output 10/19/21 10/20/21 10/20/21 18:59 06:59 18:59 Intake Total 349.026 243.81 67.133 Output Total 550 450 Balance -200.974 -206.19 67.133 Intake: Intake, IV Titration 349.026 243.81 67.133 Amount Ampicillin-Sulbactam 3 gm 100 In Sodium Chloride 0.9% 100 ml @ 200 mls/hr IVPB Q12HR VAN Rx#:[id number] Heparin Sod,Pork in 0.45% 249.026 243.81 67.133 NaCl 25,000 unit In 0.45 % NaCl 1 250ml.bag @ 18 UNITS/KG/HR 16.329 mls/hr IV .[id number] [facility] Rx#: [id number] Output: Urine 550 450 Other: Voiding Method Urinal Urinal # Voids 0 1 - Labs CBC & Chem 7: 10/20/21 07:24 10/20/21 07:24 Labs: Abnormal Lab Results - Last 24 Hours (Table) 10/19/21 10/19/21 10/19/21 Range/Units 11:15 16:12 18:17 WBC (3.8-10.6) k/uL RBC (4.30-5.90) m/uL Hgb (13.0-17.5) gm/dL MCV (80.0-100.0) fL RDW (11.5-15.5) % Plt Count (150-450) k/uL Neutrophils # (1.3-7.7) k/uL Lymphocytes # (1.0-4.8) k/uL PT 12.6 H (9.0-12.0) sec INR 1.2 H (<1.2) APTT (22.0-30.0) sec Fibrinogen 894 H (200-500) mg/dL Sodium (137-145) mmol/L Chloride (98-107) mmol/L BUN (9-20) mg/dL Creatinine (0.66-1.25) mg/dL POC Glucose (mg/dL) 113 H 146 H (70-110) mg/dL Calcium (8.4-10.2) mg/dL Total Bilirubin (0.2-1.3) mg/dL AST (17-59) U/L ALT (4-49) U/L Lactate Dehydrogenase (313-618) U/L Total Protein (6.3-8.2) g/dL Albumin (3.5-5.0) g/dL 10/19/21 10/19/21 10/19/21 Range/Units 18:17 20:23 20:30 WBC 14.5 H (3.8-10.6) k/uL RBC 4.02 L (4.30-5.90) m/uL Hgb 12.6 L (13.0-17.5) gm/dL MCV (80.0-100.0) fL RDW 17.1 H (11.5-15.5) % Plt Count 92 L (150-450) k/uL Neutrophils # 13.0 H (1.3-7.7) k/uL Lymphocytes # 0.5 L (1.0-4.8) k/uL PT (9.0-12.0) sec INR (<1.2) APTT (22.0-30.0) sec Fibrinogen (200-500) mg/dL Sodium (137-145) mmol/L Chloride (98-107) mmol/L BUN (9-20) mg/dL Creatinine (0.66-1.25) mg/dL POC Glucose (mg/dL) 174 H (70-110) mg/dL Calcium (8.4-10.2) mg/dL Total Bilirubin (0.2-1.3) mg/dL AST (17-59) U/L ALT (4-49) U/L Lactate Dehydrogenase 905 H (313-618) U/L Total Protein (6.3-8.2) g/dL Albumin (3.5-5.0) g/dL 10/20/21 10/20/21 10/20/21 Range/Units 07:24 07:24 07:24 WBC 12.9 H (3.8-10.6) k/uL RBC 3.98 L (4.30-5.90) m/uL Hgb 12.5 L (13.0-17.5) gm/dL MCV 100.2 H (80.0-100.0) fL RDW 17.3 H (11.5-15.5) % Plt Count 93 L (150-450) k/uL Neutrophils # 11.3 H (1.3-7.7) k/uL Lymphocytes # 0.5 L (1.0-4.8) k/uL PT (9.0-12.0) sec INR (<1.2) APTT 40.3 H (22.0-30.0) sec Fibrinogen (200-500) mg/dL Sodium 135 L (137-145) mmol/L Chloride 97 L (98-107) mmol/L BUN 80 H (9-20) mg/dL Creatinine 3.88 H (0.66-1.25) mg/dL POC Glucose (mg/dL) (70-110) mg/dL Calcium 7.5 L (8.4-10.2) mg/dL Total Bilirubin 1.9 H (0.2-1.3) mg/dL AST 178 H (17-59) U/L ALT 697 H (4-49) U/L Lactate Dehydrogenase (313-618) U/L Total Protein 5.8 L (6.3-8.2) g/dL Albumin 2.9 L (3.5-5.0) g/dL Microbiology - Last 24 Hours (Table) 10/16/21 21:06 Blood Culture - Preliminary Blood No Growth after 72 hours
--- NOTE | 2021-10-20 11:02 | P.PN ---
Subjective Patient is feeling better. Liver enzymes continued to normalize. Renal functions are improving. Patient is on Eliquis for anticoagulation for his DVT On exam comfortable at rest vital signs are stable there is a jugular venous distention chest exam reveals good air entry bilaterally heart exam vessel second heart sounds no gallop abdomen is soft exemption extremities reveals mild edema over the right leg in the left leg is covered by dressing Labs show a hemoglobin of 12.5 platelet count is 93 potassium is 3.9 BNP is 80 creatinine is 3.88 AST and inability are improving at 178 and 697 Assessment and plan: Acute renal failure Acute liver injury Acute DVT Cardiomyopathy Coronary artery disease Patient will continue Eliquis stop the Zocor at this time I will add a beta tonya Objective - Vital Signs Vital signs: Vital Signs Temp 98.0 F 10/20/21 08:00 Pulse 81 10/20/21 08:00 Resp 20 10/20/21 08:00 BP 122/74 10/20/21 08:00 Pulse Ox 94 L 10/20/21 08:53 FiO2 Intake & Output 10/19/21 10/20/21 10/20/21 18:59 06:59 18:59 Intake Total 349.026 243.81 67.133 Output Total 550 450 Balance -200.974 -206.19 67.133 Intake: Intake, IV Titration 349.026 243.81 67.133 Amount Ampicillin-Sulbactam 3 gm 100 In Sodium Chloride 0.9% 100 ml @ 200 mls/hr IVPB Q12HR [facility] Rx#:[id number] Heparin Sod,Pork in 0.45% 249.026 243.81 67.133 NaCl 25,000 unit In 0.45 % NaCl 1 250ml.bag @ 18 UNITS/KG/HR 16.329 mls/hr IV .[id number] [facility] Rx#: [id number] Output: Urine 550 450 Other: Voiding Method Urinal Urinal # Voids 0 1 - Labs CBC & Chem 7: 10/20/21 07:24 10/20/21 07:24 Labs: Abnormal Lab Results - Last 24 Hours (Table) 10/19/21 10/19/21 10/19/21 Range/Units 11:15 16:12 18:17 WBC (3.8-10.6) k/uL RBC (4.30-5.90) m/uL Hgb (13.0-17.5) gm/dL MCV (80.0-100.0) fL RDW (11.5-15.5) % Plt Count (150-450) k/uL Neutrophils # (1.3-7.7) k/uL Lymphocytes # (1.0-4.8) k/uL PT 12.6 H (9.0-12.0) sec INR 1.2 H (<1.2) APTT (22.0-30.0) sec Fibrinogen 894 H (200-500) mg/dL Sodium (137-145) mmol/L Chloride (98-107) mmol/L BUN (9-20) mg/dL Creatinine (0.66-1.25) mg/dL POC Glucose (mg/dL) 113 H 146 H (70-110) mg/dL Calcium (8.4-10.2) mg/dL Total Bilirubin (0.2-1.3) mg/dL AST (17-59) U/L ALT (4-49) U/L Lactate Dehydrogenase (313-618) U/L Total Protein (6.3-8.2) g/dL Albumin (3.5-5.0) g/dL 10/19/21 10/19/21 10/19/21 Range/Units 18:17 20:23 20:30 WBC 14.5 H (3.8-10.6) k/uL RBC 4.02 L (4.30-5.90) m/uL Hgb 12.6 L (13.0-17.5) gm/dL MCV (80.0-100.0) fL RDW 17.1 H (11.5-15.5) % Plt Count 92 L (150-450) k/uL Neutrophils # 13.0 H (1.3-7.7) k/uL Lymphocytes # 0.5 L (1.0-4.8) k/uL PT (9.0-12.0) sec INR (<1.2) APTT (22.0-30.0) sec Fibrinogen (200-500) mg/dL Sodium (137-145) mmol/L Chloride (98-107) mmol/L BUN (9-20) mg/dL Creatinine (0.66-1.25) mg/dL POC Glucose (mg/dL) 174 H (70-110) mg/dL Calcium (8.4-10.2) mg/dL Total Bilirubin (0.2-1.3) mg/dL AST (17-59) U/L ALT (4-49) U/L Lactate Dehydrogenase 905 H (313-618) U/L Total Protein (6.3-8.2) g/dL Albumin (3.5-5.0) g/dL 10/20/21 10/20/21 10/20/21 Range/Units 07:24 07:24 07:24 WBC 12.9 H (3.8-10.6) k/uL RBC 3.98 L (4.30-5.90) m/uL Hgb 12.5 L (13.0-17.5) gm/dL MCV 100.2 H (80.0-100.0) fL RDW 17.3 H (11.5-15.5) % Plt Count 93 L (150-450) k/uL Neutrophils # 11.3 H (1.3-7.7) k/uL Lymphocytes # 0.5 L (1.0-4.8) k/uL PT (9.0-12.0) sec INR (<1.2) APTT 40.3 H (22.0-30.0) sec Fibrinogen (200-500) mg/dL Sodium 135 L (137-145) mmol/L Chloride 97 L (98-107) mmol/L BUN 80 H (9-20) mg/dL Creatinine 3.88 H (0.66-1.25) mg/dL POC Glucose (mg/dL) (70-110) mg/dL Calcium 7.5 L (8.4-10.2) mg/dL Total Bilirubin 1.9 H (0.2-1.3) mg/dL AST 178 H (17-59) U/L ALT 697 H (4-49) U/L Lactate Dehydrogenase (313-618) U/L Total Protein 5.8 L (6.3-8.2) g/dL Albumin 2.9 L (3.5-5.0) g/dL Microbiology - Last 24 Hours (Table) 10/16/21 21:06 Blood Culture - Preliminary Blood No Growth after 72 hours
[2021-10-20 11:32] LABS: Glucose,Whole Blood 88 mg/dL (70-110)
[2021-10-20] MEDS: METOPROLOL SUCCINATE (ER) 25 MG TAB.ER.24H PO SCH ×2 (12:37→12:53)
--- NOTE | 2021-10-20 13:41 | P.PN ---
Subjective Progress Note Date: 10/20/21 Principal diagnosis: Acute deep vein thrombosis left lower extremity This is a 66-year-old white male with history of multiple medical problems including three-vessel coronary artery disease, ischemic cardiomyopathy and LV dysfunction, declined AICD placement in the past. Patient was seen yesterday at [facility] ER in [place], and he felt that he may have had food poi soning as he presented mostly with symptoms nausea vomiting and diarrhea. Patient was noted to have multiple abnormal labs, however further workup revealed evidence of left lower extremity DVT. Patient was transferred to [facility], and he was noted to have left lower extremity DVT, many abnormal labs including CBC showing leukocytosis with WBC count of 24.8. Elevated INR of 1.8. Elevated potassium of 6.5. Elevated BUN of 53 and creatinine of 3.29. Patient was also noted to be acidotic with an anion gap metabolic acidosis of 17. Elevated total bilirubin of 2.8, elevated liver enzymes with AST of 3128 and elevated ALT of 1450. Elevated troponin of 2.46. Elevated BNP of 57,000. And elevated lactic acid of 5.6. Considering the multiple abnormalities noted, patient was seen by many consultants. And he had extensive workup over the last 24 hours. The workup included a chest x-ray which showed cardiomegaly, and minimal basilar atelectasis. Ultrasound of the gallbladder showed evidence of cholelithiasis, and radiologist raised the possibility of cholecystitis with underlying hepatocellular disease and hepatic steatosis VQ scan was nondiagnostic. Patient had abdominal bladder ultrasound and this is pending. Patient was seen by vascular surgery for DVT, and the recommendation was basically continue heparin, no surgical intervention was felt to be necessary patient was seen by general surgery for his cholelithiasis, and the recommendation was observation and watch him closely, patient did not have clinical symptoms of cholecystitis. Patient was seen by cardiology for his LV dysfunction and history of ischemic cardiomyopathy, the recommendation was supportive care measures, high surgical risk. Avoid surgery unless it is absolutely necessary, seen by nephrology for his acute kidney injury felt to be secondary to hypotension with oligoria, and the recommendation was to check a bladder scan, rule out urinary retention, and recommended bicarb drip. And recommended mostly renal ultrasound and avoiding nephrotoxic agents considering his complex multiple medical problems, I was notified about this patient by the admitting physician Dr. Johnson, and I arranged for the patient to be admitted to the ICU. In the meantime I'm recommending that we follow the recommendation of different consultants on the case and monitor the patient closely. In the meantime continue heparin. And continue antibiotics. Patient will be seen by infectious disease on consultation. Reevaluated today on 10/18/21, patient remains in the ICU, feeling a bit better today compared to yesterday. Hardly any shortness of breath. No abdominal pain. No nausea no vomiting. Surprisingly his liver enzymes are showing significant improvement since admission. Renal functioning is a bit worse. WBC count is 16 hemoglobin is 12, PTT is therapeutic at 63.5. Electrolytes are normal BUN however is up to 74 creatinine up to 4.12. AST is down to 749 and ALT is down to 1351. Patient had MRCP, and basically nondiagnostic. In the meantime the patient remains on daptomycin and on Unasyn. For presumptive clinical suspicion of acute cholecystitis and cholangitis, blood cultures have been negative since admission. Pulmonary-gagnon the patient is doing fairly well. Reevaluated today on 10/19/21, patient seems to be doing fairly well, remains in the ICU, no major issues over the last 24 hours. Patient denies any shortness of breath denies any cough denies any chest pain no nausea no vomiting no abdominal pain. He is on few liters nasal cannula, not in any distress, remains on sodium bicarb drip, at 50 mL per hour. Remains on daptomycin and Unasyn. Chest x-ray showed minimal bilateral atelectasis, no evidence of infiltrate or pneumonia and no evidence of congestive heart failure. WBC count is 12.9 hemoglobin 11.9 PTT is therapeutic at lites are normal renal profile remains poor with a creatinine of 3.99. BUN of 83. Liver enzymes are improving AST is down to 371 ALT 946. Alkaline phosphatase is 58 Reevaluated today on 10/20/21, patient remains in the ICU as an overflow. Patient is doing well, no specific complaints, remains on heparin however this is to be transitioned to eliquis. Patient is on 4 L nasal cannula, O2 sats is 95%. Does not seem to be in any distress. His WBC count is 12.9 hemoglobin 12.5. Electrolytes are normal renal profile is about the same BUN is 80 creatinine 3.88 liver enzymes continued to improve Objective - Vital Signs Vital signs: Vital Signs Temp 98.0 F 10/20/21 08:00 Pulse 81 10/20/21 08:00 Resp 20 10/20/21 08:00 BP 122/74 10/20/21 08:00 Pulse Ox 94 L 10/20/21 08:53 FiO2 Intake & Output 10/19/21 10/20/21 10/20/21 18:59 06:59 18:59 Intake Total 349.026 243.81 167.133 Output Total 550 450 200 Balance -200.974 -206.19 -32.867 Intake: Intake, IV Titration 349.026 243.81 167.133 Amount Ampicillin-Sulbactam 3 gm 100 100 In Sodium Chloride 0.9% 100 ml @ 200 mls/hr IVPB Q12HR VAN Rx#:[id number] Heparin Sod,Pork in 0.45% 249.026 243.81 67.133 NaCl 25,000 unit In 0.45 % NaCl 1 250ml.bag @ 18 UNITS/KG/HR 16.329 mls/hr IV .[id number] VAN Rx#: [id number] Output: Urine 550 450 200 Other: Voiding Method Urinal Urinal # Voids 0 1 - Exam GENERAL: Revealed a 66-year-old white male, in no distress. On 4 L nasal cannula. Head: Atraumatic, normocephalic. EYES: Pupils equal. Conjunctiva normal. HEENT: Normal nasal mucosa and normal oral mucosa, throat is clear. NECK: No neck masses no JVD no stridor. HEART: Normal S1 and S2, no S3 gallop. No murmur. LUNGS: Symmetrical chest expansion, clear throughout no crackles or rhonchi or wheezes. ABDOMEN: Soft nontender no megaly no rebound no guarding. PSYCH: Normal mood affect and normal mental status examination. MUSCULOSKELETAL: No deformities and no limitation in range of motion. EXTREMITIES: Left lower extremity showed evidence of chronic venous stasis changes noted in both lower extremities. Jessica's drainage noted noted in the superficial ulceration from the left lower extremity. NEUROLOGICAL: Alert and oriented 3 focal deficits. Skin: Chronic venous stasis noted in both lower extremities. - Labs CBC & Chem 7: 10/20/21 07:24 10/20/21 07:24 Labs: Abnormal Lab Results - Last 24 Hours (Table) 10/19/21 10/19/21 10/19/21 Range/Units 16:12 18:17 18:17 WBC (3.8-10.6) k/uL RBC (4.30-5.90) m/uL Hgb (13.0-17.5) gm/dL MCV (80.0-100.0) fL RDW (11.5-15.5) % Plt Count (150-450) k/uL Neutrophils # (1.3-7.7) k/uL Lymphocytes # (1.0-4.8) k/uL PT 12.6 H (9.0-12.0) sec INR 1.2 H (<1.2) APTT (22.0-30.0) sec Fibrinogen 894 H (200-500) mg/dL Sodium (137-145) mmol/L Chloride (98-107) mmol/L BUN (9-20) mg/dL Creatinine (0.66-1.25) mg/dL POC Glucose (mg/dL) 146 H (70-110) mg/dL Calcium (8.4-10.2) mg/dL Total Bilirubin (0.2-1.3) mg/dL AST (17-59) U/L ALT (4-49) U/L Lactate Dehydrogenase 905 H (313-618) U/L Total Protein (6.3-8.2) g/dL Albumin (3.5-5.0) g/dL 10/19/21 10/19/21 10/20/21 Range/Units 20:23 20:30 07:24 WBC 14.5 H 12.9 H (3.8-10.6) k/uL RBC 4.02 L 3.98 L (4.30-5.90) m/uL Hgb 12.6 L 12.5 L (13.0-17.5) gm/dL MCV 100.2 H (80.0-100.0) fL RDW 17.1 H 17.3 H (11.5-15.5) % Plt Count 92 L 93 L (150-450) k/uL Neutrophils # 13.0 H 11.3 H (1.3-7.7) k/uL Lymphocytes # 0.5 L 0.5 L (1.0-4.8) k/uL PT (9.0-12.0) sec INR (<1.2) APTT (22.0-30.0) sec Fibrinogen (200-500) mg/dL Sodium (137-145) mmol/L Chloride (98-107) mmol/L BUN (9-20) mg/dL Creatinine (0.66-1.25) mg/dL POC Glucose (mg/dL) 174 H (70-110) mg/dL Calcium (8.4-10.2) mg/dL Total Bilirubin (0.2-1.3) mg/dL AST (17-59) U/L ALT (4-49) U/L Lactate Dehydrogenase (313-618) U/L Total Protein (6.3-8.2) g/dL Albumin (3.5-5.0) g/dL 10/20/21 10/20/21 Range/Units 07:24 07:24 WBC (3.8-10.6) k/uL RBC (4.30-5.90) m/uL Hgb (13.0-17.5) gm/dL MCV (80.0-100.0) fL RDW (11.5-15.5) % Plt Count (150-450) k/uL Neutrophils # (1.3-7.7) k/uL Lymphocytes # (1.0-4.8) k/uL PT (9.0-12.0) sec INR (<1.2) APTT 40.3 H (22.0-30.0) sec Fibrinogen (200-500) mg/dL Sodium 135 L (137-145) mmol/L Chloride 97 L (98-107) mmol/L BUN 80 H (9-20) mg/dL Creatinine 3.88 H (0.66-1.25) mg/dL POC Glucose (mg/dL) (70-110) mg/dL Calcium 7.5 L (8.4-10.2) mg/dL Total Bilirubin 1.9 H (0.2-1.3) mg/dL AST 178 H (17-59) U/L ALT 697 H (4-49) U/L Lactate Dehydrogenase (313-618) U/L Total Protein 5.8 L (6.3-8.2) g/dL Albumin 2.9 L (3.5-5.0) g/dL Microbiology - Last 24 Hours (Table) 10/16/21 21:06 Blood Culture - Preliminary Blood No Growth after 72 hours Assessment and Plan Assessment: Impression: Acute deep vein thromboses involving left lower extremity. Suspect possible cholecystitis. Acute hepatitis. Acute kidney injury possibly acute on chronic kidney disease. Could very well be cardiorenal in nature. Coronary artery disease and history of severe ischemic cardiomyopathy and LV dysfunction Type 2 diabetes. Dyslipidemia. Benign essential hypertension. Acute anion gap metabolic acidosis, multifactorial, but mostly secondary to his acute kidney injury. Acute hyperkalemia secondary to acute kidney injury. Resolved. Recommendation: Transition hyper to eliquis. Continue oral bicarb. Continue antibiotics presently on Unasyn and daptomycin, being addressed by infectious disease on the case. Continue to monitor liver enzymes. Avoid nephrotoxic agents. Will transfer patient to a cardiac floor today. Once a bed is available Time with Patient: Less than 30
--- NOTE | 2021-10-20 15:07 | CDI ---
Documentation Clarification Form Date: 10/20/2021 02:53:38 PM From: Aurelia Nieves RN CCDS Admit Date: 10/16/2021 10:29:00 AM Patient Name: Jabier Mitchell Visit Number: [id number] Discharge Date: ATTENTION: The Clinical Documentation Specialists (CDI) and [facility] Coding Staff appreciate your assistance in clarifying documentation. Please respond to the clarification below the line at the bottom and electronically sign. The CDI & [facility] Coding staff will review the response and follow-up if needed. Please note: Queries are made part of the Legal Health Record. If you have any questions, please contact the author of this message via ITS. Dr. Fred Leblanc MD Your patient has the documented diagnosis of unspecified CHF 10/19, Medicine progress note. Additional information regarding the type, acuity of CHF is requested. History/Risk Factors: 66-year-old male presents to the ED with nausea and vomiting went to ED then at home he had pain mid-thigh down his leg. Medical history: DM, CAD, HTN and CHF. H&P, 10/16. Clinical Indicators: Cardiology note 10/20 Cardiomyopathy is documented. VS/Pulse OX: 10/19 B/P 128/90; HR 97; Temp 98.2 F Oral; RR 16; SpO2 90% 4L nasal cannula BNP: 10/16 [id number] Echocardiogram Results: 10/16/21 EF 20-25% Moderate right ventricular dilation . Mild pulmonary hypertension. Mild Tricuspid regurgitation, mild mitrial regurgitation. Chest X Ray: 10/16 persistent cardiomegaly. Difficult to exclude right lower lobe atelectasis versus pneumonia, possible effusion. 10/19 Correlate for interstitial edema, there is a right pleural effusion Treatment: 10/19 Lasix 40mg IV x 1; 10/22 Lasix 40mg IV x 1; 10/23 - current Lasix 40mg IV Daily; 10/22 Toprol XL 25mg PO x 1; 10/23 - current Toprol XL 50mg Daily In your professional opinion, can you please clarify the acuity and type of CHF if known? [ ] Chronic Systolic Heart Failure (reduced EF) [ ] Acute on Chronic Systolic Heart Failure (reduced EF) [ ] Other, please specify [ ] Unable to determine 10/[address] Gonsalves answered query Acute on chronic systolic chf. (Template Last Revised: June 2020) DENISSED
--- NOTE | 2021-10-20 16:12 | P.PN ---
Progress Note - Text Progress Note Date: 10/20/21 Chief Complaint: Left leg pain This is a pleasant 66-year-old patient, follows with Dr. Mike Escobar. Chronic stable medical conditions include CAD with stent, diabetes, hypertension, hyperlipidemia anxiety. Yesterday patient was walking about in [facility] when he started feeling unwell. Decided to leave the store and came to the parking lot. Sat down there. Decided to drive home. Patient has several bouts of nausea and vomiting. [place] of the ER. He was then discharged last night. Denied any fever and chills. Had some abdominal pain. Settle down. He did gets IV fluids at the other hospital. Patient very early this morning started having pain from mid thigh down the leg. Rather significant. No injury. Patient had some sweating for some time. In the ER was found to have a common femoral relevant DVT. Also had arterial Doppler done which was reviewed by Dr. Mike found to be normal. No arterial compromise. Denies any nausea vomiting abdominal pain today. Patient noted to have increased LFTs compared to the was done at [facility]. Admitted with: Acute DVT of the left common femoral vein, choledocholithiasis asymptomatic, acute ischemic hepatitis, acute kidney injury, metabolic acidosis, positive blood cultures from the outside hospital. Patient started IV heparin, sodium bicarbonate drip, IV cefepime and IV daptomycin,. Acute arterial compromise was ruled out by arterial Doppler by Dr. Mike. Hyperkalemia treated. October 17: Because of multiple issues patient smoked in the ICU yesterday evening. Today patient on 5 L of nasal cannula. Decreased urine output. Bicarbonate drip. IV heparin. Doppler ultrasound showing distal pulses. October 18: ICU: Was up in a chair today. IV heparin. IV bicarbonate drip. 4 L nasal cannula. Had blisters on lower extremity. They will popped by vascular. October 19: ICU: Reclining in bed. IV heparin. After bicarbonate drip. KAYDEN stockings. 4 L nasal cannula. Did eat some food. October 20: ICU: Breathing better. On 3 L of nasal cannula. IV heparin stopped. Eliquis started. KAYDEN stockings. Leg pain better.. Active Medications Acetaminophen (Acetaminophen Tab 325 Mg Tab) 325 mg PO Q6H PRN PRN Reason: Pain or Fever > 100.5 Alprazolam (Alprazolam 0.25 Mg Tab) 0.25 mg PO BID PRN PRN Reason: Anxiety Last Admin: 10/20/21 01:24 Dose: 0.25 mg Apixaban (Apixaban 5 Mg Tab) 10 mg PO BID [facility]; Protocol Stop: 10/26/21 21:01 Last Admin: 10/20/21 10:20 Dose: 10 mg Aspirin (Aspirin 81 Mg) 81 mg PO DAILY [facility] Last Admin: 10/20/21 08:35 Dose: 81 mg Fluoxetine HCl (Fluoxetine Hcl 20 Mg Cap) 20 mg PO [facility] Last Admin: 10/19/21 20:24 Dose: 20 mg Hydromorphone HCl (Hydromorphone 0.5 Mg/0.5 Ml Syringe) 0.5 mg IVP Q3HR PRN PRN Reason: Moderate Pain Last Admin: 10/20/21 08:31 Dose: 0.5 mg Daptomycin 500 mg/ Sodium (Chloride) 50 mls @ 100 mls/hr IVPB Q48H [facility] Last Admin: 10/18/21 21:11 Dose: 100 mls/hr Ampicillin Sodium/Sulbactam (Sodium 3 gm/ Sodium Chloride) 100 mls @ 200 mls/hr IVPB Q12HR [facility]; Protocol Last Admin: 10/20/21 08:35 Dose: 200 mls/hr Insulin Aspart (Insulin Aspart (Novolog) 100 Unit/Ml Vial) 0 unit SQ AC-TID [facility]; Protocol Last Admin: 10/20/21 12:54 Dose: Not Given Insulin Detemir (Insulin Detemir (Levemir) 100 Unit/Ml Syr) 15 unit SQ [facility] Last Admin: 10/19/21 20:24 Dose: 15 unit Naloxone HCl (Naloxone 0.4 Mg/Ml 1 Ml Vial) 0.2 mg IV Q2M PRN PRN Reason: Opioid Reversal Nitroglycerin (Nitroglycerin Sl Tabs 0.4 Mg Tab) 0.4 mg SUBLINGUAL Q5M PRN PRN Reason: Chest Pain Ondansetron HCl (Ondansetron 4 Mg/2 Ml Vial) 4 mg IVP Q8HR PRN PRN Reason: Nausea And Vomiting Past medical history to include: CAD with stent, diabetes, hypertension, hyperlipidemia, skin cancer on the nose in August 2020, anxiety 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 Nonsmoker. Alcohol rarely. Family history: Diabetes, CAD Physical examination: VITAL SIGNS: The 81, 20, 122.74, 95% on 4 L GENERAL: reclining in the bed EYES: Pupils equal. Conjunctiva normal. HEENT: External appearance of nose and ears normal, oral cavity grossly normal. NECK: JVD not raised; masses not palpable. HEART: First and second heart sounds are normal; some edema. LUNGS: Respiratory rate increased; decreased breath sound . ABDOMEN: Soft, nontender, liver spleen not palpable, no masses palpable. PSYCH: [Alert and oriented x3; mood and affect slightly anxious MUSCULOSKELETAL:No Clubbing/cyanosis;muscles-grossly intact EXTREMITIES: [ Shiny skin lower extremity.necrobiosis lipoidica. Edema decreased. ischemic and fungal nails. Some tenderness.] KAYDEN stockings INVESTIGATIONS, reviewed in the clinical context: Blood culture from [facility]: Gram-positive October 20: W 12.9 hemoglobin 12.5 platelets 93 potassium 3.9 BUN 80 creatinine 3.88 AST 178 ALT 697 albumin 2.9 October 19: WBC 12.9 hemoglobin 11.9 platelets 104 potassium 3.8. 83 creatinine 3.9 [birth year]/1971 ALT 946 albumin 2.6 2-D echocardiogram: EF 20-25%. October 18: White count 16 hemoglobin 12 platelets 149 sodium 135 potassium 4.4 creatinine 4.12 AST 749 ALT 1351 October 17: White count 20.1 hemoglobin 1.4 platelets 154 INR 2.4 sodium 132 potassium 6 BUN 57 creatinine 3.47 lactic acidosis 3.5 AST 08/06/2008 ALT 2181 White count 31.4 hemoglobin 15.4 platelets 267 sodium 139 potassium 6.2 bicarbonate 12 BUN 41 creatinine 2.81 lactic acid 11.6 AST 494 ALT 240 troponin I 0.640, 2.4 EKG tracing personally reviewed by me-intraventricular block. Sinus rhythm. First-degree AV block. Left lower extremity venous Doppler: DVT in the common femoral vein. Chest x-ray film personally reviewed by me-cardiomegaly. Lungs clear Gallbladder ultrasound: Gallbladder filled with stones. Possible hepatic steatosis. Arterial Doppler results discussed with Dr. Mike: No evidence of vascular compromise Assessment and plan: -Acute DVT of the left common femoral vein, likely precipitated from acute gastroenteritis and decreased activity. IV heparin monitoring changed over to eliquis today. KAYDEN stockings. -Acute hypoxic respiratory failure, likely from CHF On 3 L nasal cannula -Patient also on IV daptomycin per ID for possible cholangitis -Ischemic cardiomyopathy, EF 20-25% -Sepsis with positive Gram-positive blood cultures [ from [facility] Blood cultures from October 16 negative IV Unasyn -Choledocholithiasis. -Episode of acute food poisoning day prior to admission Self-limited. -Acute hepatitis. Likely ischemic.: Improving Follow-up with GI -Troponinemia, likely from hemodynamic mismatch. Setting of acute kidney injury. No chest pain. IV heparin -CAD with a history of stent Aspirin 81 mg daily -Diabetes mellitus type 2, chronically on insulin Follow Accu-Cheks and sliding scale insulin. Levemir 15 units at night -Hyperlipidemia Given the elevated LFTs hold Zocor. -Essential hypertension Currently blood pressure is running low likely because of dehydration from nausea vomiting . Hold off Norvasc -Lower extremity edema possibly from Norvasc and DVT KAYDEN stockings, bilateral -Acute kidney injury, ATN from sepsis and prerenal from nausea vomiting: Slow to respond Patient's creatinine was 1.7 on August 25. 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 Creatinine 1.7 in August 2021 -Hyperkalemia from metabolic acidosis: corrected Renal diet. Lokelfl. Sodium bicarbonate drip. -Anxiety not otherwise specified Xanax 0.25 mg by mouth twice a day -IV heparin monitoring: Discontinued Follow PTT -Full code IV heparin discontinued. Eliquis started.. . IV daptomycin and Unasyn . 3 L nasal cannula. Levemir.
--- NOTE | 2021-10-20 16:16 | P.PN ---
Subjective Progress Note Date: 10/19/21 Principal diagnosis: Abdominal sepsis and bacteremia Patient is a 66 year male presenting to the hospital with acute nausea vomiting and abdominal pain patient did have evidence of gallstones and elevated liver enzymes did have a positive blood culture at the outside facility and subsequently transferred to [facility] for further management. On today's evaluation that is 10/19/2021, the patient remains to be afebrile, the patient denies nausea or vomiting, patient abdominal pain has decreased in intensity no chest pain shortness of breath or cough and no diarrhea Objective - Vital Signs Vital signs: Vital Signs Temp 98.2 F 10/19/21 12:00 Pulse 97 10/19/21 12:00 Resp 16 10/19/21 12:00 BP 128/90 10/19/21 12:00 Pulse Ox 90 L 10/19/21 12:00 FiO2 Intake & Output 10/18/21 10/19/21 10/19/21 18:59 06:59 18:59 Intake Total 924.986 250 349.026 Output Total 175 250 325 Balance 749.986 0 24.026 Weight 105.7 kg Intake: IV 50 Dextrose 5% in Water 1, 50 000 ml @ 50 mls/hr IV . Q21H VAN with Sodium Bicarb (1 Meq/ml) 50 ml Rx#:[id number] Intake, IV Titration 874.986 250 349.026 Amount Ampicillin-Sulbactam 3 gm 100 100 100 In Sodium Chloride 0.9% 100 ml @ 200 mls/hr IVPB Q12HR VAN Rx#:[id number] DAPTOmycin 500 mg In 50 Sodium Chloride 0.9% 50 ml @ 100 mls/hr IVPB Q48H VAN Rx#:[id number] Dextrose 5% in Water 1, 550 100 000 ml @ 50 mls/hr IV . Q23H VAN with Sodium Bicarb (1 Meq/ml) 150 ml Rx#:[id number] Heparin Sod,Pork in 0.45% 224.986 249.026 NaCl 25,000 unit In 0.45 % NaCl 1 250ml.bag @ 18 UNITS/KG/HR 16.329 mls/hr IV .[id number] VAN Rx#: [id number] Output: Urine 175 250 325 Other: Voiding Method Urinal Urinal Urinal # Voids 0 0 - Exam GENERAL DESCRIPTION: An elderly male lying in bed in no distress RESPIRATORY SYSTEM: Unlabored breathing , decreased breath sounds at bases HEART: S1 S2 regular rate and rhythm , ABDOMEN: Soft , no tenderness EXTREMITIES: No edema feet - Labs CBC & Chem 7: 10/20/21 07:24 10/20/21 07:24 Labs: Abnormal Lab Results - Last 24 Hours (Table) 10/18/21 10/19/21 10/19/21 Range/Units 20:18 06:49 06:49 WBC 12.9 H (3.8-10.6) k/uL RBC 3.81 L (4.30-5.90) m/uL Hgb 11.9 L (13.0-17.5) gm/dL Hct 38.0 L (39.0-53.0) % RDW 17.4 H (11.5-15.5) % Plt Count 104 L (150-450) k/uL Neutrophils # 11.6 H (1.3-7.7) k/uL Lymphocytes # 0.5 L (1.0-4.8) k/uL APTT 60.4 H (22.0-30.0) sec Sodium (137-145) mmol/L BUN (9-20) mg/dL Creatinine (0.66-1.25) mg/dL POC Glucose (mg/dL) 126 H (70-110) mg/dL Calcium (8.4-10.2) mg/dL Total Bilirubin (0.2-1.3) mg/dL AST (17-59) U/L ALT (4-49) U/L Total Protein (6.3-8.2) g/dL Albumin (3.5-5.0) g/dL 10/19/21 10/19/21 Range/Units 06:49 11:15 WBC (3.8-10.6) k/uL RBC (4.30-5.90) m/uL Hgb (13.0-17.5) gm/dL Hct (39.0-53.0) % RDW (11.5-15.5) % Plt Count (150-450) k/uL Neutrophils # (1.3-7.7) k/uL Lymphocytes # (1.0-4.8) k/uL APTT (22.0-30.0) sec Sodium 133 L (137-145) mmol/L BUN 83 H (9-20) mg/dL Creatinine 3.99 H (0.66-1.25) mg/dL POC Glucose (mg/dL) 113 H (70-110) mg/dL Calcium 6.7 L (8.4-10.2) mg/dL Total Bilirubin 1.7 H (0.2-1.3) mg/dL AST 371 H (17-59) U/L ALT 946 H (4-49) U/L Total Protein 5.2 L (6.3-8.2) g/dL Albumin 2.6 L (3.5-5.0) g/dL Microbiology - Last 24 Hours (Table) 10/16/21 21:06 Blood Culture - Preliminary Blood No Growth after 48 hours Assessment and Plan (1) Cholelithiasis Current Visit: Yes Status: Acute Code(s): K80.20 - CALCULUS OF GALLBLADDER W/O CHOLECYSTITIS W/O OBSTRUCTION SNOMED Code(s): 009130341 Plan: 1patient presented to hospital with sepsis in this patient have elevated white count elevated lactic acid presenting with nausea and vomiting with evidence of gallstones did have elevated liver enzymes and high clinic suspicious for acute cholecystitis and cholangitis and this patient did have a gram-positive bacteremia with strep more likely source is cholangitis. 2 patient will continue with Unasyn 3 g every 12 hours while waiting for the ID sensitivity and continue daptomycin for now. Time with Patient: Less than 30
--- NOTE | 2021-10-20 16:18 | P.PN ---
Subjective Progress Note Date: 10/20/21 Principal diagnosis: Abdominal sepsis and bacteremia Patient is a 66 year male presenting to the hospital with acute nausea vomiting and abdominal pain patient did have evidence of gallstones and elevated liver enzymes did have a positive blood culture at the outside facility and subsequently transferred to [facility] for further management. On today's evaluation that is 10/20/2021, the patient denies any fever or chills, the patient denies nausea or vomiting, patient abdominal pain is currently controlled, the patient denies chest pain shortness of breath or cough and no diarrhea Objective - Vital Signs Vital signs: Vital Signs Temp 98.0 F 10/20/21 08:00 Pulse 81 10/20/21 08:00 Resp 20 10/20/21 08:00 BP 122/74 10/20/21 08:00 Pulse Ox 94 L 10/20/21 08:53 FiO2 Intake & Output 10/19/21 10/20/21 10/20/21 18:59 06:59 18:59 Intake Total 349.026 243.81 167.133 Output Total 550 450 200 Balance -200.974 -206.19 -32.867 Intake: Intake, IV Titration 349.026 243.81 167.133 Amount Ampicillin-Sulbactam 3 gm 100 100 In Sodium Chloride 0.9% 100 ml @ 200 mls/hr IVPB Q12HR [facility] Rx#:[id number] Heparin Sod,Pork in 0.45% 249.026 243.81 67.133 NaCl 25,000 unit In 0.45 % NaCl 1 250ml.bag @ 18 UNITS/KG/HR 16.329 mls/hr IV .[id number] [facility] Rx#: [id number] Output: Urine 550 450 200 Other: Voiding Method Urinal Urinal # Voids 0 1 - Exam GENERAL DESCRIPTION: An elderly male lying in bed in no distress RESPIRATORY SYSTEM: Unlabored breathing , decreased breath sounds at bases HEART: S1 S2 regular rate and rhythm , ABDOMEN: Soft , no tenderness EXTREMITIES: No edema feet - Labs CBC & Chem 7: 10/20/21 07:24 10/20/21 07:24 Labs: Abnormal Lab Results - Last 24 Hours (Table) 10/19/21 10/19/21 10/19/21 Range/Units 16:12 18:17 18:17 WBC (3.8-10.6) k/uL RBC (4.30-5.90) m/uL Hgb (13.0-17.5) gm/dL MCV (80.0-100.0) fL RDW (11.5-15.5) % Plt Count (150-450) k/uL Neutrophils # (1.3-7.7) k/uL Lymphocytes # (1.0-4.8) k/uL PT 12.6 H (9.0-12.0) sec INR 1.2 H (<1.2) APTT (22.0-30.0) sec Fibrinogen 894 H (200-500) mg/dL Sodium (137-145) mmol/L Chloride (98-107) mmol/L BUN (9-20) mg/dL Creatinine (0.66-1.25) mg/dL POC Glucose (mg/dL) 146 H (70-110) mg/dL Calcium (8.4-10.2) mg/dL Total Bilirubin (0.2-1.3) mg/dL AST (17-59) U/L ALT (4-49) U/L Lactate Dehydrogenase 905 H (313-618) U/L Total Protein (6.3-8.2) g/dL Albumin (3.5-5.0) g/dL 10/19/21 10/19/21 10/20/21 Range/Units 20:23 20:30 07:24 WBC 14.5 H 12.9 H (3.8-10.6) k/uL RBC 4.02 L 3.98 L (4.30-5.90) m/uL Hgb 12.6 L 12.5 L (13.0-17.5) gm/dL MCV 100.2 H (80.0-100.0) fL RDW 17.1 H 17.3 H (11.5-15.5) % Plt Count 92 L 93 L (150-450) k/uL Neutrophils # 13.0 H 11.3 H (1.3-7.7) k/uL Lymphocytes # 0.5 L 0.5 L (1.0-4.8) k/uL PT (9.0-12.0) sec INR (<1.2) APTT (22.0-30.0) sec Fibrinogen (200-500) mg/dL Sodium (137-145) mmol/L Chloride (98-107) mmol/L BUN (9-20) mg/dL Creatinine (0.66-1.25) mg/dL POC Glucose (mg/dL) 174 H (70-110) mg/dL Calcium (8.4-10.2) mg/dL Total Bilirubin (0.2-1.3) mg/dL AST (17-59) U/L ALT (4-49) U/L Lactate Dehydrogenase (313-618) U/L Total Protein (6.3-8.2) g/dL Albumin (3.5-5.0) g/dL 10/20/21 10/20/21 Range/Units 07:24 07:24 WBC (3.8-10.6) k/uL RBC (4.30-5.90) m/uL Hgb (13.0-17.5) gm/dL MCV (80.0-100.0) fL RDW (11.5-15.5) % Plt Count (150-450) k/uL Neutrophils # (1.3-7.7) k/uL Lymphocytes # (1.0-4.8) k/uL PT (9.0-12.0) sec INR (<1.2) APTT 40.3 H (22.0-30.0) sec Fibrinogen (200-500) mg/dL Sodium 135 L (137-145) mmol/L Chloride 97 L (98-107) mmol/L BUN 80 H (9-20) mg/dL Creatinine 3.88 H (0.66-1.25) mg/dL POC Glucose (mg/dL) (70-110) mg/dL Calcium 7.5 L (8.4-10.2) mg/dL Total Bilirubin 1.9 H (0.2-1.3) mg/dL AST 178 H (17-59) U/L ALT 697 H (4-49) U/L Lactate Dehydrogenase (313-618) U/L Total Protein 5.8 L (6.3-8.2) g/dL Albumin 2.9 L (3.5-5.0) g/dL Microbiology - Last 24 Hours (Table) 10/16/21 21:06 Blood Culture - Preliminary Blood No Growth after 72 hours Assessment and Plan (1) Cholelithiasis Current Visit: Yes Status: Acute Code(s): K80.20 - CALCULUS OF GALLBLADDER W/O CHOLECYSTITIS W/O OBSTRUCTION SNOMED Code(s): 732419157 Plan: 1patient presented to hospital with sepsis in this patient have elevated white count elevated lactic acid presenting with nausea and vomiting with evidence of gallstones did have elevated liver enzymes and high clinic suspicious for acute cholecystitis and cholangitis and this patient did have a gram-positive bacteremia with strep more likely source is cholangitis. We are still waiting for final on the blood culture from [place] blood culture done here also for negative 2 patient will continue with Unasyn and daptomycin while waiting for the final on the blood cultures from [facility]. Time with Patient: Less than 30
--- NOTE | 2021-10-20 16:24 | P.PN ---
Subjective Progress Note Date: 10/20/21 Principal diagnosis: Elevated LFTs, acute ischemic hepatitis This is a 66-year-old male with a past medical history including coronary artery disease status post cardiac stent, 5 MIs, diabetes mellitus, hyperlipidemia, hypertension, skin cancer and previous left fourth toe amputation. The patient presented to the emergency department with complaints of left lower extremity p ain that started 2 days ago. Patient had a venous duplex that showed extensive left lower extremity DVT involving the left common femoral vein and superficial femoral vein. Vascular surgery was consulted for the above. He denies any previous history of DVT or pulmonary embolism. Denies any history of clotting disorder. 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 He is on a low-dose daily aspirin, denies any anticoagulation or antiplatelet therapy. States he does have some shortness of breath that was noted after he started fluids here. Patient denies any abdominal pain, states 2 days ago he did have some nausea and vomiting along with abdominal pain. Denies chest pain but states he does have some shortness of breath. He denies any previous liver disease. Denies any history of alcoholism, or fatty liver disease. 10/18/2021. Patient is seen and reexamined in the ICU. He continues to deny any abdominal pain, nausea or vomiting. He has been tolerating a clear liquid diet. He has continued to be hypotensive running 80s-90s/50s-70s. He denies any chest pain or shortness of breath. He initially was sitting up in the chair. He's been afebrile. Patient underwent MRCP yesterday impression states limitations of the exam. Cholelithiasis. Hepatosplenomegaly. Cardiomegaly. Right pleural effusion and ascites. Today's labs WBC 16 hemoglobin 12 platelet count 149,000 INR 1.5 sodium 135 potassium 4.4 BUN 74 creatinine 4.12 total bilirubin 2.9 AST 749 ALT 1351 alkaline phosphatase 53. Hepatitis panel nonreactive 10/19/2021. Patient is being reevaluated for elevated LFTs, acute ischemic hepatitis. He remains in the ICU. He has still been hypotensive however somewhat improved. He continues to deny any abdominal pain, nausea, or vomiting. He is been afebrile. He states he is passing gas, no bowel movement. WBC improving, LFTs improving. He remains on IV heparin drip. Patient had an MRCP done on 10/17/2021 with a addendum placed on 10/19/2021 stating questionable filling defects within the distal common bile duct not well replicated on the 3-dimensional post processed images. Difficult to exclude choledochal lithiasis as stated in report. Again however patient has not had any further abdominal pain since prior to coming into the hospital. Possibility patient may have had a a passing stone however again patient symptoms completely resolved. Cardiology has seen patient and he is not an optimal surgical cand idate. 10/20/2021. Patient reevaluated as a follow-up in the ICU. Hypotensive has improved. Labs continued to improve. WBC trending down, LFTs trending down. He continues to deny any abdominal pain nausea or vomiting. He remains afebrile. Heparin drip will be discontinued and patient will be started on Eliquis. Objective - Vital Signs Vital signs: Vital Signs Temp 97.8 F 10/20/21 04:00 Pulse 80 10/20/21 04:00 Resp 22 10/20/21 04:00 BP 132/69 10/20/21 04:00 Pulse Ox 94 L 10/20/21 08:53 FiO2 Intake & Output 10/19/21 10/20/21 10/20/21 18:59 06:59 18:59 Intake Total 349.026 243.81 67.133 Output Total 550 450 Balance -200.974 -206.19 67.133 Intake: Intake, IV Titration 349.026 243.81 67.133 Amount Ampicillin-Sulbactam 3 gm 100 In Sodium Chloride 0.9% 100 ml @ 200 mls/hr IVPB Q12HR [facility] Rx#:[id number] Heparin Sod,Pork in 0.45% 249.026 243.81 67.133 NaCl 25,000 unit In 0.45 % NaCl 1 250ml.bag @ 18 UNITS/KG/HR 16.329 mls/hr IV .[id number] [facility] Rx#: [id number] Output: Urine 550 450 Other: Voiding Method Urinal Urinal # Voids 0 1 - Exam General appearance: The patient is alert, oriented, appears in no acute distress. HET: Head is normocephalic and atraumatic. Conjunctiva pink. Sclera anicteric. Neck: Supple without lymphadenopathy. Abdomen: Soft, nontender, nondistended with bowel sounds. No guarding or rigidity. Extremities: Left lower extremity with swelling, thigh high KAYDEN hose in place. Skin: No rashes, no jaundice Neurological: No focal deficits. Alert and oriented x 3. - Labs CBC & Chem 7: 10/20/21 07:24 10/20/21 07:24 Labs: Abnormal Lab Results - Last 24 Hours (Table) 10/19/21 10/19/21 10/19/21 Range/Units 11:15 16:12 18:17 WBC (3.8-10.6) k/uL RBC (4.30-5.90) m/uL Hgb (13.0-17.5) gm/dL MCV (80.0-100.0) fL RDW (11.5-15.5) % Plt Count (150-450) k/uL Neutrophils # (1.3-7.7) k/uL Lymphocytes # (1.0-4.8) k/uL PT 12.6 H (9.0-12.0) sec INR 1.2 H (<1.2) APTT (22.0-30.0) sec Fibrinogen 894 H (200-500) mg/dL Sodium (137-145) mmol/L Chloride (98-107) mmol/L BUN (9-20) mg/dL Creatinine (0.66-1.25) mg/dL POC Glucose (mg/dL) 113 H 146 H (70-110) mg/dL Calcium (8.4-10.2) mg/dL Total Bilirubin (0.2-1.3) mg/dL AST (17-59) U/L ALT (4-49) U/L Lactate Dehydrogenase (313-618) U/L Total Protein (6.3-8.2) g/dL Albumin (3.5-5.0) g/dL 10/19/21 10/19/21 10/19/21 Range/Units 18:17 20:23 20:30 WBC 14.5 H (3.8-10.6) k/uL RBC 4.02 L (4.30-5.90) m/uL Hgb 12.6 L (13.0-17.5) gm/dL MCV (80.0-100.0) fL RDW 17.1 H (11.5-15.5) % Plt Count 92 L (150-450) k/uL Neutrophils # 13.0 H (1.3-7.7) k/uL Lymphocytes # 0.5 L (1.0-4.8) k/uL PT (9.0-12.0) sec INR (<1.2) APTT (22.0-30.0) sec Fibrinogen (200-500) mg/dL Sodium (137-145) mmol/L Chloride (98-107) mmol/L BUN (9-20) mg/dL Creatinine (0.66-1.25) mg/dL POC Glucose (mg/dL) 174 H (70-110) mg/dL Calcium (8.4-10.2) mg/dL Total Bilirubin (0.2-1.3) mg/dL AST (17-59) U/L ALT (4-49) U/L Lactate Dehydrogenase 905 H (313-618) U/L Total Protein (6.3-8.2) g/dL Albumin (3.5-5.0) g/dL 10/20/21 10/20/21 10/20/21 Range/Units 07:24 07:24 07:24 WBC 12.9 H (3.8-10.6) k/uL RBC 3.98 L (4.30-5.90) m/uL Hgb 12.5 L (13.0-17.5) gm/dL MCV 100.2 H (80.0-100.0) fL RDW 17.3 H (11.5-15.5) % Plt Count 93 L (150-450) k/uL Neutrophils # 11.3 H (1.3-7.7) k/uL Lymphocytes # 0.5 L (1.0-4.8) k/uL PT (9.0-12.0) sec INR (<1.2) APTT 40.3 H (22.0-30.0) sec Fibrinogen (200-500) mg/dL Sodium 135 L (137-145) mmol/L Chloride 97 L (98-107) mmol/L BUN 80 H (9-20) mg/dL Creatinine 3.88 H (0.66-1.25) mg/dL POC Glucose (mg/dL) (70-110) mg/dL Calcium 7.5 L (8.4-10.2) mg/dL Total Bilirubin 1.9 H (0.2-1.3) mg/dL AST 178 H (17-59) U/L ALT 697 H (4-49) U/L Lactate Dehydrogenase (313-618) U/L Total Protein 5.8 L (6.3-8.2) g/dL Albumin 2.9 L (3.5-5.0) g/dL Microbiology - Last 24 Hours (Table) 10/16/21 21:06 Blood Culture - Preliminary Blood No Growth after 72 hours Assessment and Plan (1) Elevated LFTs Narrative/Plan: 66-year-old male who presented to the emergency department with complaints of left lower extremity pain. He has multiple comorbidities including history of coronary artery disease status post stenting and 5 MIs. He came in with elevated lactic acid, elevated troponins, white count, and elevation in his total bilirubin, LFTs. Gallbladder ultrasound was obtained showing multiple ga llstones without any CBD dilation. Also stating possible underlying hepatocellular disease due to echotexture of liver. Patient denies any current abdominal pain. He did state that he did have some abdominal discomfort yesterday with some nausea and vomiting. He is more concerned with some short ness of breath and left lower extremity pain for which he was diagnosed with a DVT. Due to elevated total bilirubin and LFTs gastroenterology was asked to evaluate patient for possible choledocholithiasis. Patient no longer is experiencing pain however may have passed the stone. We'll await repeat labs and MRCP. Patient currently on a heparin drip. Acute rise in LFTs likely related to acute ischemic hepatitis related to sepsis and hypotension. Patient also may have underlying hepatocellular disease related to hepatic steatosis. Initial MRCP impression stated cholelithiasis, hepatosplenomegaly. Cardiomegaly. Right pleural effusion, ascites. Today radiologist reviewed the MRCP and added an addendum that states there was questionable filling defects within the distal common bile duct not well replicated on the 3-dimensional post processed images. Difficult to exclude choledochal lithiasis as stated in report. Patient has not had any abdominal pain, nausea or vomiting since prior to his admission. He has continuing improvement in his leukocytosis and LFTs. The patient may have passed a CBD stone at some point, however again patient is asymptomatic at this time with improvement in his overall condition. He remains hypotensive, he has ischemic cardiomyopathy with severe LV dysfunction, he is on a heparin drip for DVT and was seen by cardiology who states patient is high risk for perioperative cardiac events and surgery should be avoided unless absolutely necessary. At this time we will continue to monitor, with no plans on ERCP at this time. Current Visit: Yes Status: Acute Code(s): R79.89 - OTHER SPECIFIED ABNORMAL FINDINGS OF BLOOD CHEMISTRY SNOMED Code(s): 829277560 (2) Cholelithiasis Narrative/Plan: 66-year-old male who presented to the emergency department with complaints of left lower extremity pain. He has multiple comorbidities including history of coronary artery disease status post stenting and 5 MIs. He came in with elevated lactic acid, elevated troponins, white count, and elevation in his total bilirubin, LFTs. Gallbladder ultrasound was obtained showing multiple gallstones without any CBD dilation. Also stating possible underlying hepatocellular disease due to echotexture of liver. Patient denies any current abdominal pain. He did state that he did have some abdominal discomfort yesterday with some nausea and vomiting. He is more concerned with some shortness of breath and left lower extremity pain for which he was diagnosed with a DVT. Due to elevated total bilirubin and LFTs gastroenterology was asked to evaluate patient for possible choledocholithiasis. Patient no longer is experiencing pain however may have passed the stone. We'll await repeat labs and MRCP. Patient currently on a heparin drip. No plans at this time for ERCP underlying elevated LFTs likely related to acute ischemic hepatitis from sepsis and hypotension. MRCP reports cholelithiasis, hepatosplenomegaly. Cardiomegaly. Right pleural effusion, ascites. Current Visit: Yes Status: Acute Code(s): K80.20 - CALCULUS OF GALLBLADDER W/O CHOLECYSTITIS W/O OBSTRUCTION SNOMED Code(s): 313498636 (3) Coagulopathy Current Visit: Yes Status: Acute Code(s): D68.9 - COAGULATION DEFECT, UNSPECIFIED SNOMED Code(s): 33864854 (4) Coronary artery disease Narrative/Plan: Cardiology following closely, they were consulted for cardiac clearance for possible ERCP. They have seen the patient and states he is at high risk for. Operative cardiac events. Avoid surgery unless absolutely necessary. Current Visit: Yes Status: Acute Code(s): I25.10 - ATHSCL HEART DISEASE OF [place] CORONARY ARTERY W/O ANG PCTRS SNOMED Code(s): 95845663 (5) DVT (deep venous thrombosis) Current Visit: Yes Status: Acute Code(s): I82.409 - ACUTE EMBOLISM AND THOMBOS UNSP DEEP VN UNSP LOWER EXTREMITY SNOMED Code(s): 579172848 Plan: 1. Continue symptomatic and supportive care 2. Patient may advance to low-fat diet 3. Repeat CBC, CMP, INR daily 4. Cardiology consulted recommendations appreciated 5. MRCP addendum reviewed 10/19/2021 6. No plans at this time for ERCP 7. Appreciate general surgery recommendations 8. Avoid hepatotoxic medications 9. Continue with ICU/medical management Thank you for allowing us to participate in the care of the patient, the GI service will sign off, gastroenterology will not be available at the hospital this weekend and through next week. If further evaluation by gastroenterology is required the patient will need transfer as per the primary team's discretion. Dr. Josefina Leblanc I agree with the dictator's note, documented as a scribe by Mery Clancy.
[2021-10-20 16:45] LABS: Glucose,Whole Blood 122 mg/dL (70-110)
[2021-10-20 20:34] LABS: Glucose,Whole Blood 144 mg/dL (70-110)
[2021-10-20] MEDS: DAPTOmycin 500 MG in SODIUM CHLORIDE 0.9% 50 ML IVPB SCH (20:34)
[2021-10-20] MEDS: FLUoxetine HCL 20 MG CAP PO SCH (20:34)
[2021-10-20] MEDS: INSULIN DETEMIR (LEVEMIR) 100 UNIT/ML SYR SQ SCH (20:34)
[2021-10-20 23:53] LABS: Immunoglobulin M 88.1 mg/dL (40.0-280.0)
[2021-10-21] MEDS: HYDROmorphone 0.5 MG/0.5 ML SYRINGE IVP PRN ×4 (03:06→19:53)
[2021-10-21 05:20] LABS: Anisocytosis Slight; Basophils % (A) 0 %; Eosinophils # (A) 0.1 k/uL (0-0.7); Eosinophils % (A) 1 %; HCT 40.8 % (39.0-53.0); HGB 12.7 gm/dL (13.0-17.5); Hypochromasia Moderate; Lymphocytes # (A) 0.5 k/uL (1.0-4.8); Lymphocytes % (A) 3 %; MCH 31.3 pg (25.0-35.0); MCHC 31.2 g/dL (31.0-37.0); MCV 100.4 fL (80.0-100.0); Macrocytosis Slight; Mean Platelet Volume 9.3; Monocytes # (A) 0.9 k/uL (0-1.0); Monocytes % (A) 6 %; Neutrophils # (A) 12.4 k/uL (1.3-7.7); Neutrophils % (A) 88 %; Platelet Count 101 k/uL (150-450); RBC 4.07 m/uL (4.30-5.90); RDW 16.8 % (11.5-15.5); WBC 14.1 k/uL (3.8-10.6)
[2021-10-21 05:39] LABS: Albumin 3.1 g/dL (3.5-5.0); Calcium 8.1 mg/dL (8.4-10.2); Potassium 3.9 mmol/L (3.5-5.1); Total Bilirubin 1.7 mg/dL (0.2-1.3); Total Protein 6.1 g/dL (6.3-8.2)
[2021-10-21] MEDS: DEXTROSE 5% IN WATER 1,000 ML with SODIUM BICARB (1 MEQ/ML) 150 ML IV SCH (06:11)
[2021-10-21 06:19] LABS: Glucose,Whole Blood 149 mg/dL (70-110)
[2021-10-21] MEDS: INSULIN ASPART (NovoLOG) 100 UNIT/ML VIAL SQ SCH ×3 (06:22→16:50)
[2021-10-21] MEDS: ASPIRIN 81 MG PO SCH (09:18)
[2021-10-21] MEDS: APIXABAN 5 MG TAB PO SCH ×2 (09:18→19:42)
[2021-10-21] MEDS: AMPICILLIN-SULBACTAM 3 GM in SODIUM CHLORIDE 0.9% 100 ML IVPB SCH ×2 (09:19→19:41)
--- NOTE | 2021-10-21 11:25 | P.PN ---
Subjective Progress Note Date: 10/21/21 CHIEF COMPLAINT: Cholangitis HISTORY OF PRESENT ILLNESS: The patient is a 66-year-old male admitted with sepsis due to cholangitis. He denies any abdominal pain. No further fevers. Reports appetite. ROS: No reports of nausea and vomiting. No fevers or chills. No new chest pain. No productive sputum PHYSICAL EXAM: VITAL SIGNS: Reviewed CONSTITUTIONAL: Well developed and in no acute distress. EYES: Conjuctivae without sclera icterus. Extraocular movements grossly intact. HEAD, EARS, NOSE, THROAT: Moist buccal mucosa. Head is atraumatic, normocephalic. Hears conversational speech. No nasal drainage. RESPIRATORY: Non-labored respirations and equal bilateral excursions. CARDIOVASCULAR: Palpable 2+ radial pulses. ABDOMEN: Nontender. No peritonitis. MUSCULOSKELETAL: No gross deformity of the lower extremities noted. No clubbing. No cyanosis. SKIN: Good skin turgor. Well perfused. NEUROLOGIC: Cranial nerves II through XII grossly intact. No focal or lateralizing signs. PSYCH: Appropriate affect. Alert and oriented to person, place and time. CLINICAL LABS: Reviewed. WBC down from 31,000 on admission until 14,000. LFTs trending downward. ASSESSMENT: 1. Cholangitis with sepsis 2. Abdominal pain due to cholangitis PLAN: 1. Clinically, patient has overall improved since admission. Continue antibiotics. 2. Continue low-fat diet. Objective - Vital Signs Vital signs: Vital Signs Temp 98.7 F 10/21/21 00:00 Pulse 95 10/21/21 04:00 Resp 18 10/21/21 04:00 BP 136/78 10/21/21 04:00 Pulse Ox 94 L 10/21/21 07:44 FiO2 Intake & Output 10/20/21 10/21/21 10/21/21 18:59 06:59 18:59 Intake Total 167.133 Output Total 800 550 Balance -632.867 -550 Intake: Intake, IV Titration 167.133 Amount Ampicillin-Sulbactam 3 gm 100 In Sodium Chloride 0.9% 100 ml @ 200 mls/hr IVPB Q12HR [facility] Rx#:[id number] Heparin Sod,Pork in 0.45% 67.133 NaCl 25,000 unit In 0.45 % NaCl 1 250ml.bag @ 18 UNITS/KG/HR 16.329 mls/hr IV .[id number] [facility] Rx#: [id number] Output: Urine 800 550 Other: Voiding Method Urinal Urinal # Bowel Movements 1 - Labs CBC & Chem 7: 10/21/21 04:40 10/21/21 04:40 Labs: Abnormal Lab Results - Last 24 Hours (Table) 10/20/21 10/20/21 10/20/21 Range/Units 07:24 07:24 16:43 WBC (3.8-10.6) k/uL RBC (4.30-5.90) m/uL Hgb (13.0-17.5) gm/dL MCV (80.0-100.0) fL RDW (11.5-15.5) % Plt Count (150-450) k/uL Neutrophils # (1.3-7.7) k/uL Lymphocytes # (1.0-4.8) k/uL ESR 68 H (0-15) mm/hr Sodium (137-145) mmol/L Chloride (98-107) mmol/L BUN (9-20) mg/dL Creatinine (0.66-1.25) mg/dL Glucose (74-99) mg/dL POC Glucose (mg/dL) 122 H (70-110) mg/dL Calcium (8.4-10.2) mg/dL Total Bilirubin (0.2-1.3) mg/dL AST (17-59) U/L ALT (4-49) U/L Total Protein (6.3-8.2) g/dL Albumin (3.5-5.0) g/dL Rheumatoid Factor 20 H (0-15) IU/mL 10/20/21 10/21/21 10/21/21 Range/Units 20:32 04:40 04:40 WBC 14.1 H (3.8-10.6) k/uL RBC 4.07 L (4.30-5.90) m/uL Hgb 12.7 L (13.0-17.5) gm/dL MCV 100.4 H (80.0-100.0) fL RDW 16.8 H (11.5-15.5) % Plt Count 101 L (150-450) k/uL Neutrophils # 12.4 H (1.3-7.7) k/uL Lymphocytes # 0.5 L (1.0-4.8) k/uL ESR (0-15) mm/hr Sodium 134 L (137-145) mmol/L Chloride 96 L (98-107) mmol/L BUN 75 H (9-20) mg/dL Creatinine 3.11 H (0.66-1.25) mg/dL Glucose 136 H (74-99) mg/dL POC Glucose (mg/dL) 144 H (70-110) mg/dL Calcium 8.1 L (8.4-10.2) mg/dL Total Bilirubin 1.7 H (0.2-1.3) mg/dL AST 81 H (17-59) U/L ALT 468 H (4-49) U/L Total Protein 6.1 L (6.3-8.2) g/dL Albumin 3.1 L (3.5-5.0) g/dL Rheumatoid Factor (0-15) IU/mL 10/21/21 Range/Units 06:18 WBC (3.8-10.6) k/uL RBC (4.30-5.90) m/uL Hgb (13.0-17.5) gm/dL MCV (80.0-100.0) fL RDW (11.5-15.5) % Plt Count (150-450) k/uL Neutrophils # (1.3-7.7) k/uL Lymphocytes # (1.0-4.8) k/uL ESR (0-15) mm/hr Sodium (137-145) mmol/L Chloride (98-107) mmol/L BUN (9-20) mg/dL Creatinine (0.66-1.25) mg/dL Glucose (74-99) mg/dL POC Glucose (mg/dL) 149 H (70-110) mg/dL Calcium (8.4-10.2) mg/dL Total Bilirubin (0.2-1.3) mg/dL AST (17-59) U/L ALT (4-49) U/L Total Protein (6.3-8.2) g/dL Albumin (3.5-5.0) g/dL Rheumatoid Factor (0-15) IU/mL Microbiology - Last 24 Hours (Table) 10/16/21 21:06 Blood Culture - Preliminary Blood No Growth after 96 hours
[2021-10-21 11:33] LABS: Glucose,Whole Blood 127 mg/dL (70-110)
--- NOTE | 2021-10-21 12:34 | P.PN ---
Subjective Progress Note Date: 10/21/21 Principal diagnosis: Abdominal sepsis and bacteremia Patient is a 66 year male presenting to the hospital with acute nausea vomiting and abdominal pain patient did have evidence of gallstones and elevated liver enzymes did have a positive blood culture at the outside facility and subsequently transferred to [facility] for further management. On today's evaluation that is 10/21/2021, the patient remains to be afebrile, the patient denies nausea or vomiting, patient denies abdominal pain , the patient denies chest pain shortness of breath or cough and no diarrhea Objective - Vital Signs Vital signs: Vital Signs Temp 98.1 F 10/21/21 09:02 Pulse 96 10/21/21 09:10 Resp 18 10/21/21 09:10 BP 136/83 10/21/21 09:02 Pulse Ox 96 10/21/21 09:02 FiO2 Intake & Output 10/20/21 10/21/21 10/21/21 18:59 06:59 18:59 Intake Total 167.133 0 Output Total 800 550 Balance -632.867 -550 0 Intake: Intake, IV Titration 167.133 Amount Ampicillin-Sulbactam 3 gm 100 In Sodium Chloride 0.9% 100 ml @ 200 mls/hr IVPB Q12HR VAN Rx#:[id number] Heparin Sod,Pork in 0.45% 67.133 NaCl 25,000 unit In 0.45 % NaCl 1 250ml.bag @ 18 UNITS/KG/HR 16.329 mls/hr IV .[id number] VAN Rx#: [id number] Oral 0 Output: Urine 800 550 Other: Voiding Method Urinal Urinal Urinal # Bowel Movements 1 - Exam GENERAL DESCRIPTION: An elderly male lying in bed in no distress RESPIRATORY SYSTEM: Unlabored breathing , decreased breath sounds at bases HEART: S1 S2 regular rate and rhythm , ABDOMEN: Soft , no tenderness EXTREMITIES: No edema feet - Labs CBC & Chem 7: 10/21/21 04:40 10/21/21 04:40 Labs: Abnormal Lab Results - Last 24 Hours (Table) 10/20/21 10/20/21 10/20/21 Range/Units 07:24 07:24 16:43 WBC (3.8-10.6) k/uL RBC (4.30-5.90) m/uL Hgb (13.0-17.5) gm/dL MCV (80.0-100.0) fL RDW (11.5-15.5) % Plt Count (150-450) k/uL Neutrophils # (1.3-7.7) k/uL Lymphocytes # (1.0-4.8) k/uL ESR 68 H (0-15) mm/hr Sodium (137-145) mmol/L Chloride (98-107) mmol/L BUN (9-20) mg/dL Creatinine (0.66-1.25) mg/dL Glucose (74-99) mg/dL POC Glucose (mg/dL) 122 H (70-110) mg/dL Calcium (8.4-10.2) mg/dL Total Bilirubin (0.2-1.3) mg/dL AST (17-59) U/L ALT (4-49) U/L Total Protein (6.3-8.2) g/dL Albumin (3.5-5.0) g/dL Rheumatoid Factor 20 H (0-15) IU/mL 10/20/21 10/21/21 10/21/21 Range/Units 20:32 04:40 04:40 WBC 14.1 H (3.8-10.6) k/uL RBC 4.07 L (4.30-5.90) m/uL Hgb 12.7 L (13.0-17.5) gm/dL MCV 100.4 H (80.0-100.0) fL RDW 16.8 H (11.5-15.5) % Plt Count 101 L (150-450) k/uL Neutrophils # 12.4 H (1.3-7.7) k/uL Lymphocytes # 0.5 L (1.0-4.8) k/uL ESR (0-15) mm/hr Sodium 134 L (137-145) mmol/L Chloride 96 L (98-107) mmol/L BUN 75 H (9-20) mg/dL Creatinine 3.11 H (0.66-1.25) mg/dL Glucose 136 H (74-99) mg/dL POC Glucose (mg/dL) 144 H (70-110) mg/dL Calcium 8.1 L (8.4-10.2) mg/dL Total Bilirubin 1.7 H (0.2-1.3) mg/dL AST 81 H (17-59) U/L ALT 468 H (4-49) U/L Total Protein 6.1 L (6.3-8.2) g/dL Albumin 3.1 L (3.5-5.0) g/dL Rheumatoid Factor (0-15) IU/mL 10/21/21 10/21/21 Range/Units 06:18 11:32 WBC (3.8-10.6) k/uL RBC (4.30-5.90) m/uL Hgb (13.0-17.5) gm/dL MCV (80.0-100.0) fL RDW (11.5-15.5) % Plt Count (150-450) k/uL Neutrophils # (1.3-7.7) k/uL Lymphocytes # (1.0-4.8) k/uL ESR (0-15) mm/hr Sodium (137-145) mmol/L Chloride (98-107) mmol/L BUN (9-20) mg/dL Creatinine (0.66-1.25) mg/dL Glucose (74-99) mg/dL POC Glucose (mg/dL) 149 H 127 H (70-110) mg/dL Calcium (8.4-10.2) mg/dL Total Bilirubin (0.2-1.3) mg/dL AST (17-59) U/L ALT (4-49) U/L Total Protein (6.3-8.2) g/dL Albumin (3.5-5.0) g/dL Rheumatoid Factor (0-15) IU/mL Microbiology - Last 24 Hours (Table) 10/16/21 21:06 Blood Culture - Preliminary Blood No Growth after 96 hours Assessment and Plan (1) Cholelithiasis Current Visit: Yes Status: Acute Code(s): K80.20 - CALCULUS OF GALLBLADDER W/O CHOLECYSTITIS W/O OBSTRUCTION SNOMED Code(s): 988131480 Plan: 1patient presented to hospital with sepsis in this patient have elevated white count elevated lactic acid presenting with nausea and vomiting with evidence of gallstones did have elevated liver enzymes and high clinic suspicious for acute cholecystitis and cholangitis and this patient did have a gram-positive bacteremia with strep more likely source is cholangitis. Final follow-up Roshni brice came with Streptococcus which is a penicillin sensitive pathogen or culture here at negative patient white count is trending down 2 patient will continue with Unasyn and will discontinue daptomycin Time with Patient: Less than 30
--- NOTE | 2021-10-21 12:47 | P.PN ---
Progress Note - Text Progress Note Date: 10/21/21 Chief Complaint: Left leg pain This is a pleasant 66-year-old patient, follows with Dr. Mike Escobar. Chronic stable medical conditions include CAD with stent, diabetes, hypertension, hyperlipidemia anxiety. Yesterday patient was walking about in [facility] when he started feeling unwell. Decided to leave the store and came to the parking lot. Sat down there. Decided to drive home. Patient has several bouts of nausea and vomiting. Drain of the ER. He was then discharged last night. Denied any fever and chills. Had some abdominal pain. Settle down. He did gets IV fluids at the other hospital. Patient very early this morning started having pain from mid thigh down the leg. Rather significant. No injury. Patient had some sweating for some time. In the ER was found to have a common femoral relevant DVT. Also had arterial Doppler done which was reviewed by Dr. Mike found to be normal. No arterial compromise. Denies any nausea vomiting abdominal pain today. Patient noted to have increased LFTs compared to the was done at [facility]. Admitted with: Acute DVT of the left common femoral vein, choledocholithiasis asymptomatic, acute ischemic hepatitis, acute kidney injury, metabolic acidosis, positive blood cultures from the outside hospital. Patient started IV heparin, sodium bicarbonate drip, IV cefepime and IV daptomycin,. Acute arterial compromise was ruled out by arterial Doppler by Dr. Mike. Hyperkalemia treated. October 17: Because of multiple issues patient smoked in the ICU yesterday evening. Today patient on 5 L of nasal cannula. Decreased urine output. Bicarbonate drip. IV heparin. Doppler ultrasound showing distal pulses. October 18: ICU: Was up in a chair today. IV heparin. IV bicarbonate drip. 4 L nasal cannula. Had blisters on lower extremity. They will popped by vascular. October 19: ICU: Reclining in bed. IV heparin. After bicarbonate drip. KAYDEN stockings. 4 L nasal cannula. Did eat some food. October 20: ICU: Breathing better. On 3 L of nasal cannula. IV heparin stopped. Eliquis started. KAYDEN stockings. Leg pain better.. October 21: Moved to the medical floor. On 2 L nasal cannula. Not hungry. Blood cultures from [place] showed Streptococcus. Penicillin sensitive. IV daptomycin discontinued. Active Medications Acetaminophen (Acetaminophen Tab 325 Mg Tab) 325 mg PO Q6H PRN PRN Reason: Pain or Fever > 100.5 Alprazolam (Alprazolam 0.25 Mg Tab) 0.25 mg PO BID PRN PRN Reason: Anxiety Last Admin: 10/20/21 01:24 Dose: 0.25 mg Apixaban (Apixaban 5 Mg Tab) 10 mg PO BID [facility]; Protocol Stop: 10/26/21 21:01 Last Admin: 10/21/21 09:18 Dose: 10 mg Aspirin (Aspirin 81 Mg) 81 mg PO DAILY [facility] Last Admin: 10/21/21 09:18 Dose: 81 mg Fluoxetine HCl (Fluoxetine Hcl 20 Mg Cap) 20 mg PO HS [facility] Last Admin: 10/20/21 20:34 Dose: 20 mg Hydromorphone HCl (Hydromorphone 0.5 Mg/0.5 Ml Syringe) 0.5 mg IVP Q3HR PRN PRN Reason: Moderate Pain Last Admin: 10/21/21 12:24 Dose: 0.5 mg Ampicillin Sodium/Sulbactam (Sodium 3 gm/ Sodium Chloride) 100 mls @ 200 mls/hr IVPB Q12HR [facility]; Protocol Last Admin: 10/21/21 09:19 Dose: 200 mls/hr Insulin Aspart (Insulin Aspart (Novolog) 100 Unit/Ml Vial) 0 unit SQ AC-TID [facility]; Protocol Last Admin: 10/21/21 12:07 Dose: Not Given Insulin Detemir (Insulin Detemir (Levemir) 100 Unit/Ml Syr) 15 unit SQ [facility] Last Admin: 10/20/21 20:34 Dose: 15 unit Naloxone HCl (Naloxone 0.4 Mg/Ml 1 Ml Vial) 0.2 mg IV Q2M PRN PRN Reason: Opioid Reversal Nitroglycerin (Nitroglycerin Sl Tabs 0.4 Mg Tab) 0.4 mg SUBLINGUAL Q5M PRN PRN Reason: Chest Pain Ondansetron HCl (Ondansetron 4 Mg/2 Ml Vial) 4 mg IVP Q8HR PRN PRN Reason: Nausea And Vomiting Past medical history to include: CAD with stent, diabetes, hypertension, hyperlipidemia, skin cancer on the nose in August 2020, anxiety 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 Nonsmoker. Alcohol rarely. Family history: Diabetes, CAD Physical examination: VITAL SIGNS: 97.7, 96, 18, 134.78, 96% on 2 L GENERAL: reclining in the bed, tired EYES: Pupils equal. Conjunctiva normal. HEENT: External appearance of nose and ears normal, oral cavity grossly normal. NECK: JVD not raised; masses not palpable. HEART: First and second heart sounds are normal; some edema. LUNGS: Respiratory rate increased; decreased breath sound . ABDOMEN: Soft, nontender, liver spleen not palpable, no masses palpable. PSYCH: [Alert and oriented x3; mood and affect slightly anxious MUSCULOSKELETAL:No Clubbing/cyanosis;muscles-grossly intact EXTREMITIES: [ Shiny skin lower extremity.necrobiosis lipoidica. Edema decreased. ischemic and fungal nails. Some tenderness.] KAYDEN stockings INVESTIGATIONS, reviewed in the clinical context: October 21: WBC 14.1 hemoglobin 12.7 potassium 3.9 creatinine 3.11 Blood culture from [facility]: Streptococcus October 20: W 12.9 hemoglobin 12.5 platelets 93 potassium 3.9 BUN 80 creatinine 3.88 AST 178 ALT 697 albumin 2.9 October 19: WBC 12.9 hemoglobin 11.9 platelets 104 potassium 3.8. 83 creatinine 3.9 [birth year]1971 ALT 946 albumin 2.6 2-D echocardiogram: EF 20-25%. October 18: White count 16 hemoglobin 12 platelets 149 sodium 135 potassium 4.4 creatinine 4.12 AST 749 ALT 1351 October 17: White count 20.1 hemoglobin 1.4 platelets 154 INR 2.4 sodium 132 potassium 6 BUN 57 creatinine 3.47 lactic acidosis 3.5 AST 08/06/2008 ALT 2181 White count 31.4 hemoglobin 15.4 platelets 267 sodium 139 potassium 6.2 bicarbonate 12 BUN 41 creatinine 2.81 lactic acid 11.6 AST 494 ALT 240 troponin I 0.640, 2.4 EKG tracing personally reviewed by me-intraventricular block. Sinus rhythm. First-degree AV block. Left lower extremity venous Doppler: DVT in the common femoral vein. Chest x-ray film personally reviewed by me-cardiomegaly. Lungs clear Gallbladder ultrasound: Gallbladder filled with stones. Possible hepatic steatosis. Arterial Doppler results discussed with Dr. Mike: No evidence of vascular compromise Assessment and plan: -Acute DVT of the left common femoral vein, likely precipitated from acute gastroenteritis and decreased activity. IV heparin monitoring changed over to eliquis . KAYDEN stockings. -Acute hypoxic respiratory failure, likely from CHF On 2 L nasal cannula -Possible cholangitis per ID. On IV Unasyn -Ischemic cardiomyopathy, EF 20-25% -Sepsis with Streptococcus blood cultures [ from [facility]]. Blood cultures from October 16 negative IV Unasyn -Choledocholithiasis. -Episode of acute food poisoning day prior to admission Self-limited. -Acute hepatitis. Likely ischemic.: Improving Follow-up with GI -Troponinemia, likely from hemodynamic mismatch. Setting of acute kidney injury. No chest pain. IV heparin -CAD with a history of stent Aspirin 81 mg daily -Diabetes mellitus type 2, chronically on insulin Follow Accu-Cheks and sliding scale insulin. Levemir 15 units at night -Hyperlipidemia Given the elevated LFTs hold Zocor. -Essential hypertension Currently blood pressure is running low likely because of dehydration from nausea vomiting . Hold off Norvasc -Lower extremity edema possibly from Norvasc and DVT KAYDEN stockings, bilateral -Acute kidney injury, ATN from sepsis and prerenal from nausea vomiting: Slow to respond Patient's creatinine was 1.7 on August 25. 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 Creatinine 1.7 in August 2021 -Hyperkalemia from metabolic acidosis: corrected Renal diet. Lokelma. Sodium bicarbonate drip. -Anxiety not otherwise specified Xanax 0.25 mg by mouth twice a day -IV heparin monitoring: Discontinued Follow PTT -Full code Eliquis . IV daptomycin-discontinued . Continue Unasyn . 2 L nasal cannula. Encourage oral intake. Incentive spirometry.
--- NOTE | 2021-10-21 13:03 | P.PN ---
Subjective Progress Note Date: 10/21/21 Principal diagnosis: Acute DVT left lower extremity This is a 66-year-old white male with history of multiple medical problems including three-vessel coronary artery disease, ischemic cardiomyopathy and LV dysfunction, declined AICD placement in the past. Patient was seen yesterday at [facility] ER in [place], and he felt that he may have had food poisoning as he presented mostly with symptoms nausea vomiting and diarrhea. Patient was noted to have multiple abnormal labs, however further workup revealed evidence of left lower extremity DVT. Patient was transferred to [facility], and he was noted to have left lower extremity DVT, many abnormal labs including CBC showing leukocytosis with WBC count of 24.8. Elevated INR of 1.8. Elevated potassium of 6.5. Elevated BUN of 53 and creatinine of 3.29. Patient was also noted to be acidotic with an anion gap metabolic acidosis of 17. Elevated total bilirubin of 2.8, elevated liver enzymes with AST of 3128 and elevated ALT of 1450. Elevated troponin of 2.46. Elevated BNP of 57,000. And elevated lactic acid of 5.6. Considering the multiple abnormalities noted, patient was seen by many consultants. And he had extensive workup over the last 24 hours. The workup included a chest x-ray which showed cardiomegaly, and minimal basilar atelectasis. Ultrasound of the gallbladder showed evidence of cholelithiasis, and radiologist raised the possibility of cholecystitis with underlying hepatocellular disease and hepatic steatosis VQ scan was nondiagnostic. Patient had abdominal bladder ultrasound and this is pending. Patient was seen by vascular surgery for DVT, and the recommendation was basically continue heparin, no surgical intervention was felt to be necessary patient was seen by general surgery for his cholelithiasis, and the recommendation was observation and watch him closely, patient did not have clinical symptoms of cholecystitis. Patient was seen by cardiology for his LV dysfunction and history of ischemic cardiomyopathy, the recommendation was supportive care measures, high surgical risk. Avoid surgery unless it is absolutely necessary, seen by nephrology for his acute kidney injury felt to be secondary to hypotension with oligoria, and the recommendation was to check a bladder scan, rule out urinary retention, and recommended bicarb drip. And recommended mostly renal ultrasound and avoiding nephrotoxic agents considering his complex multiple medical problems, I was notified about this patient by the admitting physician Dr. Johnson, and I arranged for the patient to be admitted to the ICU. In the meantime I'm recommending that we follow the recommendation of different consultants on the case and monitor the patient closely. In the meantime continue heparin. And continue antibiotics. Patient will be seen by infectious disease on consultation. Reevaluated today on 10/18/21, patient remains in the ICU, feeling a bit better today compared to yesterday. Hardly any shortness of breath. No abdominal pain. No nausea no vomiting. Surprisingly his liver enzymes are showing significant improvement since admission. Renal functioning is a bit worse. WBC count is 16 hemoglobin is 12, PTT is therapeutic at 63.5. Electrolytes are normal BUN however is up to 74 creatinine up to 4.12. AST is down to 749 and ALT is down to 1351. Patient had MRCP, and basically nondiagnostic. In the meantime the patient remains on daptomycin and on Unasyn. For presumptive clinical suspicion of acute cholecystitis and cholangitis, blood cultures have b een negative since admission. Pulmonary-gagnon the patient is doing fairly well. Reevaluated today on 10/19/21, patient seems to be doing fairly well, remains in the ICU, no major issues over the last 24 hours. Patient denies any shortness of breath denies any cough denies any chest pain no nausea no vomiting no abdominal pain. He is on few liters nasal cannula, not in any distress, remains on sodium bicarb drip, at 50 mL per hour. Remains on daptomycin and Unasyn. Chest x-ray showed minimal bilateral atelectasis, no evidence of infiltrate or pneumonia and no evidence of congestive heart failure. WBC count is 12.9 hemoglobin 11.9 PTT is therapeutic at lites are normal renal profile remains poor with a creatinine of 3.99. BUN of 83. Liver enzymes are improving AST is down to 371 ALT 946. Alkaline phosphatase is 58 Reevaluated today on 10/20/21, patient remains in the ICU as an overflow. Patient is doing well, no specific complaints, remains on heparin however this is to be transitioned to eliquis. Patient is on 4 L nasal cannula, O2 sats is 95%. Does not seem to be in any distress. His WBC count is 12.9 hemoglobin 12.5. Electrolytes are normal renal profile is about the same BUN is 80 creatinine 3.88 liver enzymes continued to improve Patient is seen today 10/21/2021 on the selective care unit. He sitting up in bed. Awake and alert in no acute distress. Maintaining O2 saturations in the 90s on 2 L/m per nasal cannula. He denies any significant abdominal pain c urrently. No fever or chills. No worsening shortness of breath cough or congestion. All cultures here reveal no growth. White count 14.1. Hemoglobin 13.7. Platelets 101. Sodium 134. Potassium 3.9. BUN 75. Creatinine 3.11. AST 81. ALT 468. Alk phos 105. He is continued on Unasyn. Anticoagulated with Eliquis. Objective - Vital Signs Vital signs: Vital Signs Temp 97.7 F 10/21/21 12:10 Pulse 96 10/21/21 12:10 Resp 18 10/21/21 12:10 BP 134/78 10/21/21 12:10 Pulse Ox 96 10/21/21 12:10 FiO2 Intake & Output 10/20/21 10/21/21 10/21/21 18:59 06:59 18:59 Intake Total 167.133 0 Output Total 800 550 Balance -632.867 -550 0 Intake: Intake, IV Titration 167.133 Amount Ampicillin-Sulbactam 3 gm 100 In Sodium Chloride 0.9% 100 ml @ 200 mls/hr IVPB Q12HR VAN Rx#:[id number] Heparin Sod,Pork in 0.45% 67.133 NaCl 25,000 unit In 0.45 % NaCl 1 250ml.bag @ 18 UNITS/KG/HR 16.329 mls/hr IV .[id number] VAN Rx#: [id number] Oral 0 Output: Urine 800 550 Other: Voiding Method Urinal Urinal Urinal # Bowel Movements 1 - Exam GENERAL EXAM: Alert, pleasant 66-year-old male patient, on 2 L nasal cannula, comfortable in no apparent distress. HEAD: Normocephalic. EYES: Normal reaction of pupils, equal size. NOSE: Clear with pink turbinates. THROAT: No erythema or exudates. NECK: No masses, no JVD. CHEST: No chest wall deformity. LUNGS: Equal air entry with no crackles, wheeze, rhonchi or dullness. CVS: S1 and S2 normal with no audible murmur, regular rhythm. ABDOMEN: No hepatosplenomegaly, normal bowel sounds, no guarding or rigidity. SPINE: No scoliosis or deformity SKIN: Chronic venous stasis of the lower extremities CENTRAL NERVOUS SYSTEM: No focal deficits, tone is normal in all 4 extremities. EXTREMITIES: Chronic venous stasis of the lower extremities superficial ulceration of left lower extremity. No clubbing, no cyanosis. Peripheral pulses are intact. - Labs CBC & Chem 7: 10/21/21 04:40 10/21/21 04:40 Labs: Abnormal Lab Results - Last 24 Hours (Table) 10/20/21 10/20/21 10/20/21 Range/Units 07:24 07:24 16:43 WBC (3.8-10.6) k/uL RBC (4.30-5.90) m/uL Hgb (13.0-17.5) gm/dL MCV (80.0-100.0) fL RDW (11.5-15.5) % Plt Count (150-450) k/uL Neutrophils # (1.3-7.7) k/uL Lymphocytes # (1.0-4.8) k/uL ESR 68 H (0-15) mm/hr Sodium (137-145) mmol/L Chloride (98-107) mmol/L BUN (9-20) mg/dL Creatinine (0.66-1.25) mg/dL Glucose (74-99) mg/dL POC Glucose (mg/dL) 122 H (70-110) mg/dL Calcium (8.4-10.2) mg/dL Total Bilirubin (0.2-1.3) mg/dL AST (17-59) U/L ALT (4-49) U/L Total Protein (6.3-8.2) g/dL Albumin (3.5-5.0) g/dL Rheumatoid Factor 20 H (0-15) IU/mL 10/20/21 10/21/21 10/21/21 Range/Units 20:32 04:40 04:40 WBC 14.1 H (3.8-10.6) k/uL RBC 4.07 L (4.30-5.90) m/uL Hgb 12.7 L (13.0-17.5) gm/dL MCV 100.4 H (80.0-100.0) fL RDW 16.8 H (11.5-15.5) % Plt Count 101 L (150-450) k/uL Neutrophils # 12.4 H (1.3-7.7) k/uL Lymphocytes # 0.5 L (1.0-4.8) k/uL ESR (0-15) mm/hr Sodium 134 L (137-145) mmol/L Chloride 96 L (98-107) mmol/L BUN 75 H (9-20) mg/dL Creatinine 3.11 H (0.66-1.25) mg/dL Glucose 136 H (74-99) mg/dL POC Glucose (mg/dL) 144 H (70-110) mg/dL Calcium 8.1 L (8.4-10.2) mg/dL Total Bilirubin 1.7 H (0.2-1.3) mg/dL AST 81 H (17-59) U/L ALT 468 H (4-49) U/L Total Protein 6.1 L (6.3-8.2) g/dL Albumin 3.1 L (3.5-5.0) g/dL Rheumatoid Factor (0-15) IU/mL 10/21/21 10/21/21 Range/Units 06:18 11:32 WBC (3.8-10.6) k/uL RBC (4.30-5.90) m/uL Hgb (13.0-17.5) gm/dL MCV (80.0-100.0) fL RDW (11.5-15.5) % Plt Count (150-450) k/uL Neutrophils # (1.3-7.7) k/uL Lymphocytes # (1.0-4.8) k/uL ESR (0-15) mm/hr Sodium (137-145) mmol/L Chloride (98-107) mmol/L BUN (9-20) mg/dL Creatinine (0.66-1.25) mg/dL Glucose (74-99) mg/dL POC Glucose (mg/dL) 149 H 127 H (70-110) mg/dL Calcium (8.4-10.2) mg/dL Total Bilirubin (0.2-1.3) mg/dL AST (17-59) U/L ALT (4-49) U/L Total Protein (6.3-8.2) g/dL Albumin (3.5-5.0) g/dL Rheumatoid Factor (0-15) IU/mL Microbiology - Last 24 Hours (Table) 10/16/21 21:06 Blood Culture - Preliminary Blood No Growth after 96 hours Assessment and Plan Assessment: 1 Acute deep vein thromboses involving left lower extremity. 2 Suspect possible cholecystitis. 3 Bacteremia at outside facility, currently on Unasyn. Blood cultures here reveal no growth. 4 Acute hepatitis. LFTs trending down 5 Acute kidney injury possibly acute on chronic kidney disease. Could very well be cardiorenal in nature. 6 Coronary artery disease and history of severe ischemic cardiomyopathy and LV dysfunction 7 Type 2 diabetes. 8 Dyslipidemia. 9 Benign essential hypertension. 10 Acute anion gap metabolic acidosis, multifactorial, but mostly secondary to his acute kidney injury. 11 Acute hyperkalemia secondary to acute kidney injury. Resolved. Plan: The patient was seen and evaluated Labs and medications reviewed Continue the current treatment plan Titrate the FiO2 as tolerated We will continue to follow I have personally seen and examined the patient, performed the documentation and the assessment and plan as written. Number of minutes spent on the visit: 10.
--- NOTE | 2021-10-21 13:21 | P.PN ---
Subjective Progress Note Date: 10/21/21 Patient is seen resting comfortably in bed today he denies increased shortness of breath or chest pain. Liver enzymes continue to improve. Renal function also continues to normalize. Patient remains on Eliquis for anticoagulation for his DVT. Will start Toprol-XL 25 mg daily. Continue to hold Zocor Objective - Vital Signs Vital signs: Vital Signs Temp 97.7 F 10/21/21 12:10 Pulse 96 10/21/21 12:10 Resp 18 10/21/21 12:10 BP 134/78 10/21/21 12:10 Pulse Ox 96 10/21/21 12:10 FiO2 Intake & Output 10/20/21 10/21/21 10/21/21 18:59 06:59 18:59 Intake Total 167.133 0 Output Total 800 550 Balance -632.867 -550 0 Intake: Intake, IV Titration 167.133 Amount Ampicillin-Sulbactam 3 gm 100 In Sodium Chloride 0.9% 100 ml @ 200 mls/hr IVPB Q12HR VAN Rx#:[id number] Heparin Sod,Pork in 0.45% 67.133 NaCl 25,000 unit In 0.45 % NaCl 1 250ml.bag @ 18 UNITS/KG/HR 16.329 mls/hr IV .[id number] VAN Rx#: [id number] Oral 0 Output: Urine 800 550 Other: Voiding Method Urinal Urinal Urinal # Bowel Movements 1 - Exam PHYSICAL EXAM: VITAL SIGNS: Reviewed. GENERAL: Well-developed in no acute distress. HEENT: Head is normocephalic. Pupils are equal, round. Sclerae anicteric. Mucous membranes of the mouth are moist. NECK: Supple. No JVD or thyromegaly RESPIRATORY: Respirations even and unlabored. Lungs diminished to auscultation bilaterally. CARDIO: Regular rate and rhythm. S1 and S2 heard. No murmur or gallops. EXTREMITIES: Normal range of motion. No clubbing or cyanosis. Peripheral pulses intact. Left lower extremity edema NEURO: Orientated to person, time, mood is appropriate - Labs CBC & Chem 7: 10/21/21 04:40 10/21/21 04:40 Labs: Abnormal Lab Results - Last 24 Hours (Table) 10/20/21 10/20/21 10/20/21 Range/Units 07:24 07:24 16:43 WBC (3.8-10.6) k/uL RBC (4.30-5.90) m/uL Hgb (13.0-17.5) gm/dL MCV (80.0-100.0) fL RDW (11.5-15.5) % Plt Count (150-450) k/uL Neutrophils # (1.3-7.7) k/uL Lymphocytes # (1.0-4.8) k/uL ESR 68 H (0-15) mm/hr Sodium (137-145) mmol/L Chloride (98-107) mmol/L BUN (9-20) mg/dL Creatinine (0.66-1.25) mg/dL Glucose (74-99) mg/dL POC Glucose (mg/dL) 122 H (70-110) mg/dL Calcium (8.4-10.2) mg/dL Total Bilirubin (0.2-1.3) mg/dL AST (17-59) U/L ALT (4-49) U/L Total Protein (6.3-8.2) g/dL Albumin (3.5-5.0) g/dL Rheumatoid Factor 20 H (0-15) IU/mL 10/20/21 10/21/21 10/21/21 Range/Units 20:32 04:40 04:40 WBC 14.1 H (3.8-10.6) k/uL RBC 4.07 L (4.30-5.90) m/uL Hgb 12.7 L (13.0-17.5) gm/dL MCV 100.4 H (80.0-100.0) fL RDW 16.8 H (11.5-15.5) % Plt Count 101 L (150-450) k/uL Neutrophils # 12.4 H (1.3-7.7) k/uL Lymphocytes # 0.5 L (1.0-4.8) k/uL ESR (0-15) mm/hr Sodium 134 L (137-145) mmol/L Chloride 96 L (98-107) mmol/L BUN 75 H (9-20) mg/dL Creatinine 3.11 H (0.66-1.25) mg/dL Glucose 136 H (74-99) mg/dL POC Glucose (mg/dL) 144 H (70-110) mg/dL Calcium 8.1 L (8.4-10.2) mg/dL Total Bilirubin 1.7 H (0.2-1.3) mg/dL AST 81 H (17-59) U/L ALT 468 H (4-49) U/L Total Protein 6.1 L (6.3-8.2) g/dL Albumin 3.1 L (3.5-5.0) g/dL Rheumatoid Factor (0-15) IU/mL 10/21/21 10/21/21 Range/Units 06:18 11:32 WBC (3.8-10.6) k/uL RBC (4.30-5.90) m/uL Hgb (13.0-17.5) gm/dL MCV (80.0-100.0) fL RDW (11.5-15.5) % Plt Count (150-450) k/uL Neutrophils # (1.3-7.7) k/uL Lymphocytes # (1.0-4.8) k/uL ESR (0-15) mm/hr Sodium (137-145) mmol/L Chloride (98-107) mmol/L BUN (9-20) mg/dL Creatinine (0.66-1.25) mg/dL Glucose (74-99) mg/dL POC Glucose (mg/dL) 149 H 127 H (70-110) mg/dL Calcium (8.4-10.2) mg/dL Total Bilirubin (0.2-1.3) mg/dL AST (17-59) U/L ALT (4-49) U/L Total Protein (6.3-8.2) g/dL Albumin (3.5-5.0) g/dL Rheumatoid Factor (0-15) IU/mL Microbiology - Last 24 Hours (Table) 10/16/21 21:06 Blood Culture - Preliminary Blood No Growth after 96 hours Assessment and Plan Assessment: Acute renal failure Acute liver injury Acute deep vein thrombosis Cardiomyopathy Coronary artery disease Plan: start Toprol-XL 25 mg Continue with all other current cardiac medications Continue with telemetry monitoring Further recommendations based on clinical course The above impression and plan of care have been discussed and directed by the signing physician. Bess Landa, nurse practitioner, acting as scribe for signing physician.
--- NOTE | 2021-10-21 13:37 | P.PN ---
Subjective Patient is seen for follow-up for acute kidney injury mostly ATN initially oliguric currently nonoliguric. Patient was also acidotic and hyperkalemic. Potassium has improved. Patient is maintained on IV bicarb. Patient has had an increase in urine output Serum creatinine has improved to 3.1 today No significant complaints today Objective - Vital Signs Vital signs: Vital Signs Temp 97.7 F 10/21/21 12:10 Pulse 96 10/21/21 12:10 Resp 18 10/21/21 12:10 BP 134/78 10/21/21 12:10 Pulse Ox 96 10/21/21 12:10 FiO2 Intake & Output 10/20/21 10/21/21 10/21/21 18:59 06:59 18:59 Intake Total 167.133 0 Output Total 800 550 Balance -632.867 -550 0 Intake: Intake, IV Titration 167.133 Amount Ampicillin-Sulbactam 3 gm 100 In Sodium Chloride 0.9% 100 ml @ 200 mls/hr IVPB Q12HR VAN Rx#:[id number] Heparin Sod,Pork in 0.45% 67.133 NaCl 25,000 unit In 0.45 % NaCl 1 250ml.bag @ 18 UNITS/KG/HR 16.329 mls/hr IV .[id number] VAN Rx#: [id number] Oral 0 Output: Urine 800 550 Other: Voiding Method Urinal Urinal Urinal # Bowel Movements 1 - Exam Awake, comfortable, not in any acute distress Examination of the heart S1 and S2 Examination of the lungs bilateral breath sounds are heard Abdomen is soft nontender Examination lower extremities shows edema 1+ left lower extremity. No edema r ight leg [employer] exam grossly intact - Labs CBC & Chem 7: 10/21/21 04:40 10/21/21 04:40 Labs: Abnormal Lab Results - Last 24 Hours (Table) 10/20/21 10/20/21 10/20/21 Range/Units 07:24 07:24 16:43 WBC (3.8-10.6) k/uL RBC (4.30-5.90) m/uL Hgb (13.0-17.5) gm/dL MCV (80.0-100.0) fL RDW (11.5-15.5) % Plt Count (150-450) k/uL Neutrophils # (1.3-7.7) k/uL Lymphocytes # (1.0-4.8) k/uL ESR 68 H (0-15) mm/hr Sodium (137-145) mmol/L Chloride (98-107) mmol/L BUN (9-20) mg/dL Creatinine (0.66-1.25) mg/dL Glucose (74-99) mg/dL POC Glucose (mg/dL) 122 H (70-110) mg/dL Calcium (8.4-10.2) mg/dL Total Bilirubin (0.2-1.3) mg/dL AST (17-59) U/L ALT (4-49) U/L Total Protein (6.3-8.2) g/dL Albumin (3.5-5.0) g/dL Rheumatoid Factor 20 H (0-15) IU/mL 10/20/21 10/21/21 10/21/21 Range/Units 20:32 04:40 04:40 WBC 14.1 H (3.8-10.6) k/uL RBC 4.07 L (4.30-5.90) m/uL Hgb 12.7 L (13.0-17.5) gm/dL MCV 100.4 H (80.0-100.0) fL RDW 16.8 H (11.5-15.5) % Plt Count 101 L (150-450) k/uL Neutrophils # 12.4 H (1.3-7.7) k/uL Lymphocytes # 0.5 L (1.0-4.8) k/uL ESR (0-15) mm/hr Sodium 134 L (137-145) mmol/L Chloride 96 L (98-107) mmol/L BUN 75 H (9-20) mg/dL Creatinine 3.11 H (0.66-1.25) mg/dL Glucose 136 H (74-99) mg/dL POC Glucose (mg/dL) 144 H (70-110) mg/dL Calcium 8.1 L (8.4-10.2) mg/dL Total Bilirubin 1.7 H (0.2-1.3) mg/dL AST 81 H (17-59) U/L ALT 468 H (4-49) U/L Total Protein 6.1 L (6.3-8.2) g/dL Albumin 3.1 L (3.5-5.0) g/dL Rheumatoid Factor (0-15) IU/mL 10/21/21 10/21/21 Range/Units 06:18 11:32 WBC (3.8-10.6) k/uL RBC (4.30-5.90) m/uL Hgb (13.0-17.5) gm/dL MCV (80.0-100.0) fL RDW (11.5-15.5) % Plt Count (150-450) k/uL Neutrophils # (1.3-7.7) k/uL Lymphocytes # (1.0-4.8) k/uL ESR (0-15) mm/hr Sodium (137-145) mmol/L Chloride (98-107) mmol/L BUN (9-20) mg/dL Creatinine (0.66-1.25) mg/dL Glucose (74-99) mg/dL POC Glucose (mg/dL) 149 H 127 H (70-110) mg/dL Calcium (8.4-10.2) mg/dL Total Bilirubin (0.2-1.3) mg/dL AST (17-59) U/L ALT (4-49) U/L Total Protein (6.3-8.2) g/dL Albumin (3.5-5.0) g/dL Rheumatoid Factor (0-15) IU/mL Microbiology - Last 24 Hours (Table) 10/16/21 21:06 Blood Culture - Preliminary Blood No Growth after 96 hours Assessment and Plan Assessment: 1. Acute kidney injury ATN secondary to hypotension currently oliguric, urine output now improved. No urine retention. 2. Anion gap metabolic acidosis secondary to acute kidney injury and lactic acidosis status post bicarb drip 3. Hyperkalemia associated with acute kidney injury metabolic acidosis, improved 3. Chronic kidney disease NKF stage III B with previous creatinine 1.7-2 mg/dL in August 2021 and as low as 1.1 and 1.2 in 2019. UA shows 3+ protein. Patient most likely has underlying diabetic kidney disease 4. Lactic acidosis 5. Elevated liver enzymes secondary to hypotension 6. Cardiomyopathy with ejection fraction 20-25% 7. Left leg DVT with possible PE maintained on IV heparin Plan: Repeat labs in a.m. Continue to encourage increase oral intake
[2021-10-21 16:50] LABS: Glucose,Whole Blood 160 mg/dL (70-110)
[2021-10-21] MEDS: METOPROLOL SUCCINATE (ER) 25 MG TAB.ER.24H PO SCH (16:50)
[2021-10-21] MEDS: TAMSULOSIN 0.4 MG CAP.ER.24H PO SCH (17:50)
[2021-10-21 19:40] LABS: Glucose,Whole Blood 191 mg/dL (70-110)
[2021-10-21] MEDS: INSULIN DETEMIR (LEVEMIR) 100 UNIT/ML SYR SQ SCH (19:42)
[2021-10-21] MEDS: FLUoxetine HCL 20 MG CAP PO SCH (19:42)
[2021-10-22] MEDS: HYDROmorphone 0.5 MG/0.5 ML SYRINGE IVP PRN ×2 (04:25→23:11)
[2021-10-22 05:31] LABS: Glucose,Whole Blood 185 mg/dL (70-110)
[2021-10-22] MEDS: INSULIN ASPART (NovoLOG) 100 UNIT/ML VIAL SQ SCH ×3 (05:36→16:58)
[2021-10-22] MEDS: APIXABAN 5 MG TAB PO SCH ×2 (08:40→21:41)
[2021-10-22] MEDS: ASPIRIN 81 MG PO SCH (08:40)
[2021-10-22] MEDS: METOPROLOL SUCCINATE (ER) 25 MG TAB.ER.24H PO SCH (08:41)
[2021-10-22] MEDS: AMPICILLIN-SULBACTAM 3 GM in SODIUM CHLORIDE 0.9% 100 ML IVPB SCH ×2 (08:41→21:41)
[2021-10-22] MEDS ORDERED: FUROSEMIDE 10 MG/ML 4 ML VIAL IV STA (08:46)
--- NOTE | 2021-10-22 09:43 | P.PN ---
Subjective Patient is seen for follow-up for acute kidney injury mostly ATN initially oliguric currently nonoliguric. Patient was also acidotic and hyperkalemic. Renal function and hyperkalemia improved. Patient is status post IV bicarb. Patient has had an increase in urine output Serum creatinine has improved to 3.1 today Complaining of mild cough and increased swelling in the legs and arms today. Objective - Vital Signs Vital signs: Vital Signs Temp 98.1 F 10/22/21 08:39 Pulse 93 10/22/21 08:39 Resp 18 10/22/21 08:39 BP 127/80 10/22/21 08:39 Pulse Ox 96 10/22/21 08:39 FiO2 Intake & Output 10/21/21 10/22/21 10/22/21 18:59 06:59 18:59 Intake Total 140 Output Total 425 1100 Balance -285 -1100 Intake: Oral 140 Output: Urine 425 900 Straight 600 Post Void Residual 200 Other: Voiding Method Urinal Urinal Indwelling Catheter # Voids 1 1 # Bowel Movements 1 1 - Exam Awake, comfortable, not in any acute distress Examination of the heart S1 and S2 Examination of the lungs bilateral breath sounds are heard Abdomen is soft nontender Examination lower extremities shows edema 1+ left lower extremity. No edema right leg [employer] exam grossly intact - Labs CBC & Chem 7: 10/21/21 04:40 10/21/21 04:40 Labs: Abnormal Lab Results - Last 24 Hours (Table) 10/21/21 10/21/21 10/21/21 Range/Units 11:32 16:27 19:37 POC Glucose (mg/dL) 127 H 160 H 191 H (70-110) mg/dL 10/22/21 Range/Units 05:29 POC Glucose (mg/dL) 185 H (70-110) mg/dL Microbiology - Last 24 Hours (Table) 10/16/21 21:06 Blood Culture - Preliminary Blood No Growth after 120 hours Assessment and Plan Assessment: 1. Acute kidney injury ATN secondary to hypotension currently oliguric, urine output now improved. No urine retention. 2. Anion gap metabolic acidosis secondary to acute kidney injury and lactic acidosis status post bicarb drip 3. Hyperkalemia associated with acute kidney injury metabolic acidosis, improved 3. Chronic kidney disease NKF stage III B with previous creatinine 1.7-2 mg/dL in August 2021 and as low as 1.1 and 1.2 in 2019. UA shows 3+ protein. Patient most likely has underlying diabetic kidney disease 4. Lactic acidosis 5. Elevated liver enzymes secondary to hypotension 6. Cardiomyopathy with ejection fraction 20-25% 7. Left leg DVT with possible PE maintained on IV heparin 8. Mild volume overload Plan: Repeat labs in a.m. Continue to encourage increase oral intake Diuresis patient
--- NOTE | 2021-10-22 10:17 | P.PN ---
Subjective Progress Note Date: 10/22/21 Principal diagnosis: Acute DVT left lower extremity This is a 66-year-old white male with history of multiple medical problems including three-vessel coronary artery disease, ischemic cardiomyopathy and LV dysfunction, declined AICD placement in the past. Patient was seen yesterday at [facility] ER in [place], and he felt that he may have had food poisoning as he presented mostly with symptoms nausea vomiting and diarrhea. Patient was noted to have multiple abnormal labs, however further workup revealed evidence of left lower extremity DVT. Patient was transferred to [facility], and he was noted to have left lower extremity DVT, many abnormal labs including CBC showing leukocytosis with WBC count of 24.8. Elevated INR of 1.8. Elevated potassium of 6.5. Elevated BUN of 53 and creatinine of 3.29. Patient was also noted to be acidotic with an anion gap metabolic acidosis of 17. Elevated total bilirubin of 2.8, elevated liver enzymes with AST of 3128 and elevated ALT of 1450. Elevated troponin of 2.46. Elevated BNP of 57,000. And elevated lactic acid of 5.6. Considering the multiple abnormalities noted, patient was seen by many consultants. And he had extensive workup over the last 24 hours. The workup included a chest x-ray which showed cardiomegaly, and minimal basilar atelectasis. Ultrasound of the gallbladder showed evidence of cholelithiasis, and radiologist raised the possibility of cholecystitis with underlying hepatocellular disease and hepatic steatosis VQ scan was nondiagnostic. Patient had abdominal bladder ultrasound and this is pending. Patient was seen by vascular surgery for DVT, and the recommendation was basically continue heparin, no surgical intervention was felt to be necessary patient was seen by general surgery for his cholelithiasis, and the recommendation was observation and watch him closely, patient did not have clinical symptoms of cholecystitis. Patient was seen by cardiology for his LV dysfunction and history of ischemic cardiomyopathy, the recommendation was supportive care measures, high surgical risk. Avoid surgery unless it is absolutely necessary, seen by nephrology for his acute kidney injury felt to be secondary to hypotension with oligoria, and the recommendation was to check a bladder scan, rule out urinary retention, and recommended bicarb drip. And recommended mostly renal ultrasound and avoiding nephrotoxic agents considering his complex multiple medical problems, I was notified about this patient by the admitting physician Dr. Johnson, and I arranged for the patient to be admitted to the ICU. In the meantime I'm recommending that we follow the recommendation of different consultants on the case and monitor the patient closely. In the meantime continue heparin. And continue antibiotics. Patient will be seen by infectious disease on consultation. Reevaluated today on 10/18/21, patient remains in the ICU, feeling a bit better today compared to yesterday. Hardly any shortness of breath. No abdominal pain. No nausea no vomiting. Surprisingly his liver enzymes are showing significant improvement since admission. Renal functioning is a bit worse. WBC count is 16 hemoglobin is 12, PTT is therapeutic at 63.5. Electrolytes are normal BUN however is up to 74 creatinine up to 4.12. AST is down to 749 and ALT is down to 1351. Patient had MRCP, and basically nondiagnostic. In the meantime the patient remains on daptomycin and on Unasyn. For presumptive clinical suspicion of acute cholecystitis and cholangitis, blood cultures have b een negative since admission. Pulmonary-gagnon the patient is doing fairly well. Reevaluated today on 10/19/21, patient seems to be doing fairly well, remains in the ICU, no major issues over the last 24 hours. Patient denies any shortness of breath denies any cough denies any chest pain no nausea no vomiting no abdominal pain. He is on few liters nasal cannula, not in any distress, remains on sodium bicarb drip, at 50 mL per hour. Remains on daptomycin and Unasyn. Chest x-ray showed minimal bilateral atelectasis, no evidence of infiltrate or pneumonia and no evidence of congestive heart failure. WBC count is 12.9 hemoglobin 11.9 PTT is therapeutic at lites are normal renal profile remains poor with a creatinine of 3.99. BUN of 83. Liver enzymes are improving AST is down to 371 ALT 946. Alkaline phosphatase is 58 Reevaluated today on 10/20/21, patient remains in the ICU as an overflow. Patient is doing well, no specific complaints, remains on heparin however this is to be transitioned to eliquis. Patient is on 4 L nasal cannula, O2 sats is 95%. Does not seem to be in any distress. His WBC count is 12.9 hemoglobin 12.5. Electrolytes are normal renal profile is about the same BUN is 80 creatinine 3.88 liver enzymes continued to improve Patient is seen today 10/21/2021 on the selective care unit. He sitting up in bed. Awake and alert in no acute distress. Maintaining O2 saturations in the 90s on 2 L/m per nasal cannula. He denies any significant abdominal pain c urrently. No fever or chills. No worsening shortness of breath cough or congestion. All cultures here reveal no growth. White count 14.1. Hemoglobin 13.7. Platelets 101. Sodium 134. Potassium 3.9. BUN 75. Creatinine 3.11. AST 81. ALT 468. Alk phos 105. He is continued on Unasyn. Anticoagulated with Eliquis. The patient is seen today 10/22/2021 in follow-up on the selective care unit. He is currently sitting up in a chair at the bedside. Awake and alert in no acute distress. He is still weak. He has a poor appetite. He is maintaining O2 saturations in the 90s on 2 L/m per nasal cannula. He's been afebrile. Hemodynamically stable. Blood cultures revealed no growth. Blood glucose 185. He remains on Unasyn. Anticoagulated with Eliquis. IV diuretics per nephrology. Labs pending.. Objective - Vital Signs Vital signs: Vital Signs Temp 98.1 F 10/22/21 08:39 Pulse 93 10/22/21 08:39 Resp 18 10/22/21 08:39 BP 127/80 10/22/21 08:39 Pulse Ox 96 10/22/21 08:39 FiO2 Intake & Output 10/21/21 10/22/21 10/22/21 18:59 06:59 18:59 Intake Total 140 240 Output Total 425 1100 Balance -285 -1100 240 Intake: Oral 140 240 Output: Urine 425 900 Straight 600 Post Void Residual 200 Other: Voiding Method Urinal Urinal Indwelling Catheter # Voids 1 1 # Bowel Movements 1 1 - Exam GENERAL EXAM: Alert, pleasant 66-year-old male patient, on 2 L nasal cannula, comfortable in no apparent distress. HEAD: Normocephalic. EYES: Normal reaction of pupils, equal size. NOSE: Clear with pink turbinates. THROAT: No erythema or exudates. NECK: No masses, no JVD. CHEST: No chest wall deformity. LUNGS: Equal air entry with no crackles, wheeze, rhonchi or dullness. CVS: S1 and S2 normal with no audible murmur, regular rhythm. ABDOMEN: No hepatosplenomegaly, normal bowel sounds, no guarding or rigidity. SPINE: No scoliosis or deformity SKIN: Chronic venous stasis of the lower extremities CENTRAL NERVOUS SYSTEM: No focal deficits, tone is normal in all 4 extremities. EXTREMITIES: Chronic venous stasis of the lower extremities superficial ulceration of left lower extremity. No clubbing, no cyanosis. Peripheral pulses are intact. - Labs CBC & Chem 7: 10/21/21 04:40 10/21/21 04:40 Labs: Abnormal Lab Results - Last 24 Hours (Table) 10/21/21 10/21/21 10/21/21 Range/Units 11:32 16:27 19:37 POC Glucose (mg/dL) 127 H 160 H 191 H (70-110) mg/dL 10/22/21 Range/Units 05:29 POC Glucose (mg/dL) 185 H (70-110) mg/dL Microbiology - Last 24 Hours (Table) 10/16/21 21:06 Blood Culture - Preliminary Blood No Growth after 120 hours Assessment and Plan Assessment: 1 Acute deep vein thromboses involving left lower extremity. Currently on Eliquis. 2 Suspect possible cholecystitis. 3 Bacteremia at outside facility, currently on Unasyn. Blood cultures here reveal no growth. 4 Acute hepatitis. LFTs trending down 5 Acute kidney injury possibly acute on chronic kidney disease. Could very well be cardiorenal in nature. 6 Coronary artery disease and history of severe ischemic cardiomyopathy and LV dysfunction 7 Type 2 diabetes. 8 Dyslipidemia. 9 Benign essential hypertension. 10 Acute anion gap metabolic acidosis, multifactorial, but mostly secondary to his acute kidney injury. 11 Acute hyperkalemia secondary to acute kidney injury. Resolved. Plan: The patient was seen and evaluated Labs pending Lasix per nephrology Remains on Unasyn Titrate the FiO2 as tolerated We will continue to follow I have personally seen and examined the patient, performed the documentation and the assessment and plan as written. Number of minutes spent on the visit: 10.
[2021-10-22 11:10] LABS: Anisocytosis Slight; Basophils % (A) 0 %; Eosinophils # (A) 0.1 k/uL (0-0.7); Eosinophils % (A) 1 %; HGB 12.6 gm/dL (13.0-17.5); Hypochromasia Moderate; Lymphocytes # (A) 0.4 k/uL (1.0-4.8); Lymphocytes % (A) 3 %; MCH 32.8 pg (25.0-35.0); MCHC 32.4 g/dL (31.0-37.0); MCV 101.3 fL (80.0-100.0); Macrocytosis Slight; Mean Platelet Volume 9.8; Monocytes # (A) 0.8 k/uL (0-1.0); Monocytes % (A) 6 %; Neutrophils # (A) 11.1 k/uL (1.3-7.7); Neutrophils % (A) 88 %; RBC 3.85 m/uL (4.30-5.90); RDW 16.8 % (11.5-15.5); WBC 12.5 k/uL (3.8-10.6)
[2021-10-22 11:25] LABS: Albumin 2.9 g/dL (3.5-5.0); Calcium 7.9 mg/dL (8.4-10.2); Potassium 3.9 mmol/L (3.5-5.1); Total Bilirubin 1.5 mg/dL (0.2-1.3); Total Protein 5.8 g/dL (6.3-8.2)
[2021-10-22 11:47] LABS: Glucose,Whole Blood 185 mg/dL (70-110)
[2021-10-22 12:11] LABS: Platelet Count 88 k/uL (150-450)
--- NOTE | 2021-10-22 13:05 | P.PN ---
Subjective Progress Note Date: 10/22/21 Patient is noted on telemetry to having self-limiting runs of ventricular tachycardia. Will increase Toprol to 50 mg daily. Patient is seen today sitting up in the chair resting comfortably he remains free from shortness of breath and chest pain. Liver function tests and renal function continued to normalize. He continues on Eliquis for anticoagulation. he continues on IV Lasix. His lower extremity edema continues to improve. Continue to hold Zocor Objective - Vital Signs Vital signs: Vital Signs Temp 98.1 F 10/22/21 08:39 Pulse 89 10/22/21 12:00 Resp 18 10/22/21 12:00 BP 134/79 10/22/21 12:00 Pulse Ox 96 10/22/21 12:00 FiO2 Intake & Output 10/21/21 10/22/21 10/22/21 18:59 06:59 18:59 Intake Total 140 240 Output Total 425 1100 Balance -285 -1100 240 Intake: Oral 140 240 Output: Urine 425 900 Straight 600 Post Void Residual 200 Other: Voiding Method Urinal Urinal Indwelling Catheter # Voids 1 1 # Bowel Movements 1 1 - Exam PHYSICAL EXAM: VITAL SIGNS: Reviewed. GENERAL: Well-developed in no acute distress. HEENT: Head is normocephalic. Pupils are equal, round. Sclerae anicteric. Mucous membranes of the mouth are moist. NECK: Supple. No JVD or thyromegaly RESPIRATORY: Respirations even and unlabored. Lungs diminished to auscultation bilaterally. CARDIO: Regular rate and rhythm. S1 and S2 heard. No murmur or gallops. EXTREMITIES: Normal range of motion. No clubbing or cyanosis. Peripheral pulses intact. Left lower extremity edema NEURO: Orientated to person, time, mood is appropriate - Labs CBC & Chem 7: 10/22/21 10:11 10/22/21 10:11 Labs: Abnormal Lab Results - Last 24 Hours (Table) 10/21/21 10/21/21 10/22/21 Range/Units 16:27 19:37 05:29 WBC (3.8-10.6) k/uL RBC (4.30-5.90) m/uL Hgb (13.0-17.5) gm/dL MCV (80.0-100.0) fL RDW (11.5-15.5) % Plt Count (150-450) k/uL Neutrophils # (1.3-7.7) k/uL Lymphocytes # (1.0-4.8) k/uL Sodium (137-145) mmol/L Chloride (98-107) mmol/L BUN (9-20) mg/dL Creatinine (0.66-1.25) mg/dL Glucose (74-99) mg/dL POC Glucose (mg/dL) 160 H 191 H 185 H (70-110) mg/dL Calcium (8.4-10.2) mg/dL Total Bilirubin (0.2-1.3) mg/dL ALT (4-49) U/L Total Protein (6.3-8.2) g/dL Albumin (3.5-5.0) g/dL 10/22/21 10/22/21 10/22/21 Range/Units 10:11 10:11 11:46 WBC 12.5 H (3.8-10.6) k/uL RBC 3.85 L (4.30-5.90) m/uL Hgb 12.6 L (13.0-17.5) gm/dL MCV 101.3 H (80.0-100.0) fL RDW 16.8 H (11.5-15.5) % Plt Count 88 L (150-450) k/uL Neutrophils # 11.1 H (1.3-7.7) k/uL Lymphocytes # 0.4 L (1.0-4.8) k/uL Sodium 133 L (137-145) mmol/L Chloride 94 L (98-107) mmol/L BUN 72 H (9-20) mg/dL Creatinine 2.58 H (0.66-1.25) mg/dL Glucose 190 H (74-99) mg/dL POC Glucose (mg/dL) 185 H (70-110) mg/dL Calcium 7.9 L (8.4-10.2) mg/dL Total Bilirubin 1.5 H (0.2-1.3) mg/dL ALT 247 H (4-49) U/L Total Protein 5.8 L (6.3-8.2) g/dL Albumin 2.9 L (3.5-5.0) g/dL Microbiology - Last 24 Hours (Table) 10/16/21 21:06 Blood Culture - Preliminary Blood No Growth after 120 hours Assessment and Plan Assessment: Acute renal failure Acute liver injury Acute deep vein thrombosis Cardiomyopathy Coronary artery disease Plan: Increase Toprol-XL 50 mg Continue with all other current cardiac medications Continue with telemetry monitoring Further recommendations based on clinical course The above impression and plan of care have been discussed and directed by the signing physician. Bess Landa, nurse practitioner, acting as scribe for signing physician.
[2021-10-22] MEDS ORDERED: METOPROLOL SUCCINATE (ER) 25 MG TAB.ER.24H PO STA (13:47)
--- NOTE | 2021-10-22 13:59 | P.PN ---
Subjective Progress Note Date: 10/22/21 CHIEF COMPLAINT: Cholangitis HISTORY OF PRESENT ILLNESS: The patient is a 66-year-old male admitted with sepsis due to cholangitis. Tolerating low-fat heart healthy diet. He denies abdominal pain at this time. ROS: No reports of nausea and vomiting. No fevers or chills. No new chest pain. No productive sputum PHYSICAL EXAM: VITAL SIGNS: Reviewed CONSTITUTIONAL: Well developed and in no acute distress. EYES: Conjuctivae without sclera icterus. Extraocular movements grossly intact. HEAD, EARS, NOSE, THROAT: Moist buccal mucosa. Head is atraumatic, normocephalic. Hears conversational speech. No nasal drainage. RESPIRATORY: Non-labored respirations and equal bilateral excursions. CARDIOVASCULAR: Palpable 2+ radial pulses. ABDOMEN: Nontender. MUSCULOSKELETAL: No gross deformity of the lower extremities noted. No clubbing. No cyanosis. SKIN: Good skin turgor. Well perfused. NEUROLOGIC: Cranial nerves II through XII grossly intact. No focal or lateralizing signs. PSYCH: Appropriate affect. Alert and oriented to person, place and time. CLINICAL LABS: Reviewed. WBC down from 31,000 on admission down to 12,500. Total bilirubin down from 3.4-1.5. LFTs continue to trend downward with normal AST and alkaline phosphatase. ASSESSMENT: 1. Cholangitis with sepsis 2. Abdominal pain due to cholangitis PLAN: 1. Continue antibiotics. 2. Continue low-fat diet 3. Stable for discharge once medically stable Objective - Vital Signs Vital signs: Vital Signs Temp 98.1 F 10/22/21 08:39 Pulse 93 10/22/21 08:39 Resp 18 10/22/21 08:39 BP 127/80 10/22/21 08:39 Pulse Ox 96 10/22/21 08:39 FiO2 Intake & Output 10/21/21 10/22/21 10/22/21 18:59 06:59 18:59 Intake Total 140 240 Output Total 425 1100 Balance -285 -1100 240 Intake: Oral 140 240 Output: Urine 425 900 Straight 600 Post Void Residual 200 Other: Voiding Method Urinal Urinal Indwelling Catheter # Voids 1 1 # Bowel Movements 1 1 - Labs CBC & Chem 7: 10/22/21 10:11 10/22/21 10:11 Labs: Abnormal Lab Results - Last 24 Hours (Table) 10/21/21 10/21/21 10/22/21 Range/Units 16:27 19:37 05:29 WBC (3.8-10.6) k/uL RBC (4.30-5.90) m/uL Hgb (13.0-17.5) gm/dL MCV (80.0-100.0) fL RDW (11.5-15.5) % Sodium (137-145) mmol/L Chloride (98-107) mmol/L BUN (9-20) mg/dL Creatinine (0.66-1.25) mg/dL Glucose (74-99) mg/dL POC Glucose (mg/dL) 160 H 191 H 185 H (70-110) mg/dL Calcium (8.4-10.2) mg/dL Total Bilirubin (0.2-1.3) mg/dL ALT (4-49) U/L Total Protein (6.3-8.2) g/dL Albumin (3.5-5.0) g/dL 10/22/21 10/22/21 10/22/21 Range/Units 10:11 10:11 11:46 WBC 12.5 H (3.8-10.6) k/uL RBC 3.85 L (4.30-5.90) m/uL Hgb 12.6 L (13.0-17.5) gm/dL MCV 101.3 H (80.0-100.0) fL RDW 16.8 H (11.5-15.5) % Sodium 133 L (137-145) mmol/L Chloride 94 L (98-107) mmol/L BUN 72 H (9-20) mg/dL Creatinine 2.58 H (0.66-1.25) mg/dL Glucose 190 H (74-99) mg/dL POC Glucose (mg/dL) 185 H (70-110) mg/dL Calcium 7.9 L (8.4-10.2) mg/dL Total Bilirubin 1.5 H (0.2-1.3) mg/dL ALT 247 H (4-49) U/L Total Protein 5.8 L (6.3-8.2) g/dL Albumin 2.9 L (3.5-5.0) g/dL Microbiology - Last 24 Hours (Table) 10/16/21 21:06 Blood Culture - Preliminary Blood No Growth after 120 hours
--- NOTE | 2021-10-22 16:13 | P.PN ---
Progress Note - Text Progress Note Date: 10/22/21 Chief Complaint: Left leg pain This is a pleasant 66-year-old patient, follows with Dr. Mike Escobar. Chronic stable medical conditions include CAD with stent, diabetes, hypertension, hyperlipidemia anxiety. Yesterday patient was walking about in [facility] when he started feeling unwell. Decided to leave the store and came to the parking lot. Sat down there. Decided to drive home. Patient has several bouts of nausea and vomiting. [place] of the ER. He was then discharged last night. Denied any fever and chills. Had some abdominal pain. Settle down. He did gets IV fluids at the other hospital. Patient very early this morning started having pain from mid thigh down the leg. Rather significant. No injury. Patient had some sweating for some time. In the ER was found to have a common femoral relevant DVT. Also had arterial Doppler done which was reviewed by Dr. Mike found to be normal. No arterial compromise. Denies any nausea vomiting abdominal pain today. Patient noted to have increased LFTs compared to the was done at [facility]. Admitted with: Acute DVT of the left common femoral vein, choledocholithiasis asymptomatic, acute ischemic hepatitis, acute kidney injury, metabolic acidosis, positive blood cultures from the outside hospital. Patient started IV heparin, sodium bicarbonate drip, IV cefepime and IV daptomycin,. Acute arterial compromise was ruled out by arterial Doppler by Dr. Mike. Hyperkalemia treated. October 17: Because of multiple issues patient smoked in the ICU yesterday evening. Today patient on 5 L of nasal cannula. Decreased urine output. Bicarbonate drip. IV heparin. Doppler ultrasound showing distal pulses. October 18: ICU: Was up in a chair today. IV heparin. IV bicarbonate drip. 4 L nasal cannula. Had blisters on lower extremity. They will popped by vascular. October 19: ICU: Reclining in bed. IV heparin. After bicarbonate drip. KAYDEN stockings. 4 L nasal cannula. Did eat some food. October 20: ICU: Breathing better. On 3 L of nasal cannula. IV heparin stopped. Eliquis started. KAYDEN stockings. Leg pain better.. October 21: Moved to the medical floor. On 2 L nasal cannula. Not hungry. Blood cultures from [facility] showed Streptococcus. Penicillin sensitive. IV daptomycin discontinued. October 22: Oral intake better. On 2 L nasal cannula. On IV Unasyn. Noticed to have some areas of localized redness raised fingers knee etc. Has remained afebrile. Active Medications Acetaminophen (Acetaminophen Tab 325 Mg Tab) 325 mg PO Q6H PRN PRN Reason: Pain or Fever > 100.5 Alprazolam (Alprazolam 0.25 Mg Tab) 0.25 mg PO BID PRN PRN Reason: Anxiety Last Admin: 10/20/21 01:24 Dose: 0.25 mg Apixaban (Apixaban 5 Mg Tab) 10 mg PO BID [facility]; Protocol Stop: 10/26/21 21:01 Last Admin: 10/22/21 08:40 Dose: 10 mg Aspirin (Aspirin 81 Mg) 81 mg PO DAILY [facility] Last Admin: 10/22/21 08:40 Dose: 81 mg Fluoxetine HCl (Fluoxetine Hcl 20 Mg Cap) 20 mg PO HS [facility] Last Admin: 10/21/21 19:42 Dose: 20 mg Furosemide (Furosemide 10 Mg/Ml 4 Ml Vial) 40 mg IV DAILY [facility] Hydromorphone HCl (Hydromorphone 0.5 Mg/0.5 Ml Syringe) 0.5 mg IVP Q3HR PRN PRN Reason: Moderate Pain Last Admin: 10/22/21 04:25 Dose: 0.5 mg Ampicillin Sodium/Sulbactam (Sodium 3 gm/ Sodium Chloride) 100 mls @ 200 mls/hr IVPB Q12HR [facility]; Protocol Last Admin: 10/22/21 08:41 Dose: 200 mls/hr Insulin Aspart (Insulin Aspart (Novolog) 100 Unit/Ml Vial) 0 unit SQ AC-TID [facility] ; Protocol Last Admin: 10/22/21 12:00 Dose: 2 unit Insulin Detemir (Insulin Detemir (Levemir) 100 Unit/Ml Syr) 15 unit SQ [facility] Last Admin: 10/21/21 19:42 Dose: 15 unit Metoprolol Succinate (Metoprolol Succinate (Er) 50 Mg Tab.Er.24h) 50 mg PO DAILY [facility] Naloxone HCl (Naloxone 0.4 Mg/Ml 1 Ml Vial) 0.2 mg IV Q2M PRN PRN Reason: Opioid Reversal Nitroglycerin (Nitroglycerin Sl Tabs 0.4 Mg Tab) 0.4 mg SUBLINGUAL Q5M PRN PRN Reason: Chest Pain Ondansetron HCl (Ondansetron 4 Mg/2 Ml Vial) 4 mg IVP Q8HR PRN PRN Reason: Nausea And Vomiting Tamsulosin HCl (Tamsulosin 0.4 Mg Cap.Er.24h) 0.4 mg PO PC-SUPPER [facility] Last Admin: 10/21/21 17:50 Dose: 0.4 mg Past medical history to include: CAD with stent, diabetes, hypertension, hyperlipidemia, skin cancer on the nose in August 2020, anxiety 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 Nonsmoker. Alcohol rarely. Family history: Diabetes, CAD Physical examination: VITAL SIGNS: 98.1, 93, 18, 1 27/80, 96% on 2 L GENERAL: reclining in the bed, awake EYES: Pupils equal. Conjunctiva normal. HEENT: External appearance of nose and ears normal, oral cavity grossly normal. NECK: JVD not raised; masses not palpable. HEART: First and second heart sounds are normal; some edema. LUNGS: Respiratory rate increased; decreased breath sound . ABDOMEN: Soft, nontender, liver spleen not palpable, no masses palpable. PSYCH: [Alert and oriented x3; mood and affect slightly anxious MUSCULOSKELETAL:No Clubbing/cyanosis;muscles-grossly intact DERMATOLOGICAL: Some scattered areas of localized redness raised in the center including the right knee, finger EXTREMITIES: [ Shiny skin lower extremity.necrobiosis lipoidica. Edema decreased. ischemic and fungal nails. Some tenderness.] KAYDEN stockings INVESTIGATIONS, reviewed in the clinical context: October 22: WBC 12.5 hemoglobin 12.6 platelets 88 potassium 3.9 creatinine 2.58 BUN 72 October 21: WBC 14.1 hemoglobin 12.7 potassium 3.9 creatinine 3.11 Blood culture from [facility]: Streptococcus October 20: W 12.9 hemoglobin 12.5 platelets 93 potassium 3.9 BUN 80 creatinine 3.88 AST 178 ALT 697 albumin 2.9 October 19: WBC 12.9 hemoglobin 11.9 platelets 104 potassium 3.8. 83 creatinine 3.9 [birth year]/1971 ALT 946 albumin 2.6 2-D echocardiogram: EF 20-25%. October 18: White count 16 hemoglobin 12 platelets 149 sodium 135 potassium 4.4 creatinine 4.12 AST 749 ALT 1351 October 17: White count 20.1 hemoglobin 1.4 platelets 154 INR 2.4 sodium 132 potassium 6 BUN 57 creatinine 3.47 lactic acidosis 3.5 AST 08/06/2008 ALT 2181 White count 31.4 hemoglobin 15.4 platelets 267 sodium 139 potassium 6.2 bicarbonate 12 BUN 41 creatinine 2.81 lactic acid 11.6 AST 494 ALT 240 troponin I 0.640, 2.4 EKG tracing personally reviewed by me-intraventricular block. Sinus rhythm. First-degree AV block. Left lower extremity venous Doppler: DVT in the common femoral vein. Chest x-ray film personally reviewed by me-cardiomegaly. Lungs clear Gallbladder ultrasound: Gallbladder filled with stones. Possible hepatic steatosis. Arterial Doppler results discussed with Dr. Mike: No evidence of vascular compromise Assessment and plan: -Acute DVT of the left common femoral vein, likely precipitated from acute gastroenteritis and decreased activity. eliquis . KAYDEN stockings. -Acute hypoxic respiratory failure, likely from CHF On 2 L nasal cannula -Possible cholangitis per ID with blood cultures positive for Streptococcus. On IV Unasyn -Ischemic cardiomyopathy, EF 20-25% -Sepsis with Streptococcus blood cultures [ from [facility] Blood cultures from October 16 negative IV Unasyn -Choledocholithiasis. -Episode of acute food poisoning day prior to admission Self-limited. -Acute hepatitis. Likely ischemic.: Improving Follow-up with GI -Troponinemia, likely from hemodynamic mismatch. Setting of acute kidney injury. No chest pain. IV heparin -CAD with a history of stent Aspirin 81 mg daily -Diabetes mellitus type 2, chronically on insulin Follow Accu-Cheks and sliding scale insulin. Increase Levemir 20 units at night -Hyperlipidemia Given the elevated LFTs hold Zocor. -Essential hypertension Continue to hold Norvasc -Lower extremity edema possibly from Norvasc and DVT KAYDEN stockings, bilateral -Acute kidney injury, ATN from sepsis and prerenal from nausea vomiting: Slow to respond Patient's creatinine was 1.7 on August 25. 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 Creatinine 1.7 in August 2021 -Hyperkalemia from metabolic acidosis: corrected Renal diet. Lokelma. Sodium bicarbonate drip. -Anxiety not otherwise specified Xanax 0.25 mg by mouth twice a day -IV heparin monitoring: Discontinued Follow PTT -Full code Eliquis . IV Unasyn . 2 L nasal cannula. Encourage oral intake. Incentive spirometry. Discussed with patient. PTOT
[2021-10-22 16:45] LABS: Glucose,Whole Blood 179 mg/dL (70-110)
[2021-10-22] MEDS: TAMSULOSIN 0.4 MG CAP.ER.24H PO SCH (16:58)
[2021-10-22 20:33] LABS: Glucose,Whole Blood 208 mg/dL (70-110)
[2021-10-22] MEDS: FLUoxetine HCL 20 MG CAP PO SCH (21:41)
[2021-10-22] MEDS: ACETAMINOPHEN TAB 325 MG TAB PO PRN (21:41)
[2021-10-22] MEDS: INSULIN DETEMIR (LEVEMIR) 100 UNIT/ML SYR SQ SCH (21:42)
[2021-10-23 05:55] LABS: Glucose,Whole Blood 161 mg/dL (70-110)
[2021-10-23] MEDS: INSULIN ASPART (NovoLOG) 100 UNIT/ML VIAL SQ SCH ×3 (06:04→16:19)
--- NOTE | 2021-10-23 07:22 | P.PN ---
Subjective Progress Note Date: 10/22/21 Principal diagnosis: Abdominal sepsis and bacteremia Patient is a 66 year male presenting to the hospital with acute nausea vomiting and abdominal pain patient did have evidence of gallstones and elevated liver enzymes did have a positive blood culture at the outside facility and subsequently transferred to [facility] for further management. On today's evaluation that is 10/22/2021, the patient denies any fever or chills, the patient denies nausea or vomiting, patient denies abdominal pain , the patient denies chest pain shortness of breath or cough and no diarrhea, patient has developed some petechial rash to the knee and finger area Objective - Vital Signs Vital signs: Vital Signs Temp 97.4 F L 10/22/21 16:00 Pulse 89 10/22/21 16:00 Resp 18 10/22/21 16:00 BP 137/83 10/22/21 16:00 Pulse Ox 90 L 10/22/21 16:00 FiO2 Intake & Output 10/22/21 10/22/21 10/23/21 06:59 18:59 06:59 Intake Total 480 Output Total 1100 1000 Balance -1100 -520 Intake: Oral 480 Output: Urine 900 1000 Straight 600 Post Void Residual 200 Other: Voiding Method Urinal Indwelling Catheter # Voids 1 # Bowel Movements 1 - Exam GENERAL DESCRIPTION: An elderly male lying in bed in no distress RESPIRATORY SYSTEM: Unlabored breathing , decreased breath sounds at bases HEART: S1 S2 regular rate and rhythm , ABDOMEN: Soft , no tenderness EXTREMITIES: No edema feet - Labs CBC & Chem 7: 10/22/21 10:11 10/22/21 10:11 Labs: Abnormal Lab Results - Last 24 Hours (Table) 10/22/21 10/22/21 10/22/21 Range/Units 05:29 10:11 10:11 WBC 12.5 H (3.8-10.6) k/uL RBC 3.85 L (4.30-5.90) m/uL Hgb 12.6 L (13.0-17.5) gm/dL MCV 101.3 H (80.0-100.0) fL RDW 16.8 H (11.5-15.5) % Plt Count 88 L (150-450) k/uL Neutrophils # 11.1 H (1.3-7.7) k/uL Lymphocytes # 0.4 L (1.0-4.8) k/uL Sodium 133 L (137-145) mmol/L Chloride 94 L (98-107) mmol/L BUN 72 H (9-20) mg/dL Creatinine 2.58 H (0.66-1.25) mg/dL Glucose 190 H (74-99) mg/dL POC Glucose (mg/dL) 185 H (70-110) mg/dL Calcium 7.9 L (8.4-10.2) mg/dL Total Bilirubin 1.5 H (0.2-1.3) mg/dL ALT 247 H (4-49) U/L Total Protein 5.8 L (6.3-8.2) g/dL Albumin 2.9 L (3.5-5.0) g/dL 10/22/21 10/22/21 10/22/21 Range/Units 11:46 16:44 20:31 WBC (3.8-10.6) k/uL RBC (4.30-5.90) m/uL Hgb (13.0-17.5) gm/dL MCV (80.0-100.0) fL RDW (11.5-15.5) % Plt Count (150-450) k/uL Neutrophils # (1.3-7.7) k/uL Lymphocytes # (1.0-4.8) k/uL Sodium (137-145) mmol/L Chloride (98-107) mmol/L BUN (9-20) mg/dL Creatinine (0.66-1.25) mg/dL Glucose (74-99) mg/dL POC Glucose (mg/dL) 185 H 179 H 208 H (70-110) mg/dL Calcium (8.4-10.2) mg/dL Total Bilirubin (0.2-1.3) mg/dL ALT (4-49) U/L Total Protein (6.3-8.2) g/dL Albumin (3.5-5.0) g/dL Microbiology - Last 24 Hours (Table) 10/16/21 21:06 Blood Culture - Preliminary Blood No Growth after 120 hours Assessment and Plan (1) Cholelithiasis Current Visit: Yes Status: Acute Code(s): K80.20 - CALCULUS OF GALLBLADDER W/O CHOLECYSTITIS W/O OBSTRUCTION SNOMED Code(s): 588281164 Plan: 1patient presented to hospital with sepsis in this patient have elevated white count elevated lactic acid presenting with nausea and vomiting with evidence of gallstones did have elevated liver enzymes and high clinic suspicious for acute cholecystitis and cholangitis and this patient did have a gram-positive bacteremia with strep more likely source is cholangitis. Final follow-up R[facility] did came with Streptococcus which is a penicillin sensitive pathogen, the patient repeat culture heart negative patient white count is trending down to 12,000 2 patient will continue with Unasyn and will repeat inflammatory markers and a blood cultures in view of the new findings Time with Patient: Less than 30
[2021-10-23] MEDS: AMPICILLIN-SULBACTAM 3 GM in SODIUM CHLORIDE 0.9% 100 ML IVPB SCH ×3 (08:22→23:51)
[2021-10-23] MEDS: METOPROLOL SUCCINATE (ER) 50 MG TAB.ER.24H PO SCH (08:23)
[2021-10-23] MEDS: APIXABAN 5 MG TAB PO SCH ×2 (08:23→19:53)
[2021-10-23] MEDS: ASPIRIN 81 MG PO SCH (08:24)
[2021-10-23] MEDS: FUROSEMIDE 10 MG/ML 4 ML VIAL IV SCH (08:24)
[2021-10-23 09:47] LABS: Anisocytosis Slight; Basophils % (A) 0 %; Eosinophils # (A) 0.2 k/uL (0-0.7); Eosinophils % (A) 1 %; HCT 36.6 % (39.0-53.0); HGB 11.8 gm/dL (13.0-17.5); Hypochromasia Moderate; Lymphocytes # (A) 0.8 k/uL (1.0-4.8); Lymphocytes % (A) 5 %; MCH 32.1 pg (25.0-35.0); MCHC 32.2 g/dL (31.0-37.0); MCV 99.7 fL (80.0-100.0); Macrocytosis Slight; Mean Platelet Volume 9.5; Monocytes % (A) 7 %; Neutrophils # (A) 12.4 k/uL (1.3-7.7); Neutrophils % (A) 85 %; Platelet Count 104 k/uL (150-450); RBC 3.67 m/uL (4.30-5.90); RDW 16.3 % (11.5-15.5); WBC 14.5 k/uL (3.8-10.6)
[2021-10-23 10:22] LABS: Calcium 7.8 mg/dL (8.4-10.2)
[2021-10-23 10:37] LABS: C Reactive Protein 19.8 mg/dL (<1.0); Potassium 3.7 mmol/L (3.5-5.1)
--- NOTE | 2021-10-23 10:44 | P.PN ---
Subjective Patient is seen in follow-up for acute kidney injury on chronic kidney disease. Oral intake fair. Feels weak. Oral intake fair. Hemodynamically stable. Vital signs are stable. General: Awake. No acute distress. HEENT: Head exam is unremarkable. LUNGS: Breath sounds decreased. HEART: Rate and Rhythm are regular. ABDOMEN: Soft, no distention. EXTREMITITES: 1+ edema. Left lower extremity wrapped. Objective - Vital Signs Vital signs: Vital Signs Temp 97.0 F L 10/23/21 08:00 Pulse 79 10/23/21 08:00 Resp 17 10/23/21 08:00 BP 132/77 10/23/21 08:00 Pulse Ox 98 10/23/21 08:00 FiO2 Intake & Output 10/22/21 10/23/21 10/23/21 18:59 06:59 18:59 Intake Total 480 250 Output Total 1000 700 Balance -520 -450 Intake: Intake, IV Titration 100 Amount Ampicillin-Sulbactam 3 gm 100 In Sodium Chloride 0.9% 100 ml @ 200 mls/hr IVPB Q12HR [facility] Rx#:[id number] Oral 480 150 Output: Urine 1000 700 Other: Voiding Method Indwelling Catheter Indwelling Catheter - Labs CBC & Chem 7: 10/23/21 08:32 10/22/21 10:11 Labs: Abnormal Lab Results - Last 24 Hours (Table) 10/22/21 10/22/21 10/22/21 Range/Units 10:11 10:11 11:46 WBC 12.5 H (3.8-10.6) k/uL RBC 3.85 L (4.30-5.90) m/uL Hgb 12.6 L (13.0-17.5) gm/dL Hct (39.0-53.0) % MCV 101.3 H (80.0-100.0) fL RDW 16.8 H (11.5-15.5) % Plt Count 88 L (150-450) k/uL Neutrophils # 11.1 H (1.3-7.7) k/uL Lymphocytes # 0.4 L (1.0-4.8) k/uL Sodium 133 L (137-145) mmol/L Chloride 94 L (98-107) mmol/L BUN 72 H (9-20) mg/dL Creatinine 2.58 H (0.66-1.25) mg/dL Glucose 190 H (74-99) mg/dL POC Glucose (mg/dL) 185 H (70-110) mg/dL Calcium 7.9 L (8.4-10.2) mg/dL Total Bilirubin 1.5 H (0.2-1.3) mg/dL ALT 247 H (4-49) U/L Total Protein 5.8 L (6.3-8.2) g/dL Albumin 2.9 L (3.5-5.0) g/dL 10/22/21 10/22/21 10/23/21 Range/Units 16:44 20:31 05:53 WBC (3.8-10.6) k/uL RBC (4.30-5.90) m/uL Hgb (13.0-17.5) gm/dL Hct (39.0-53.0) % MCV (80.0-100.0) fL RDW (11.5-15.5) % Plt Count (150-450) k/uL Neutrophils # (1.3-7.7) k/uL Lymphocytes # (1.0-4.8) k/uL Sodium (137-145) mmol/L Chloride (98-107) mmol/L BUN (9-20) mg/dL Creatinine (0.66-1.25) mg/dL Glucose (74-99) mg/dL POC Glucose (mg/dL) 179 H 208 H 161 H (70-110) mg/dL Calcium (8.4-10.2) mg/dL Total Bilirubin (0.2-1.3) mg/dL ALT (4-49) U/L Total Protein (6.3-8.2) g/dL Albumin (3.5-5.0) g/dL 10/23/21 Range/Units 08:32 WBC 14.5 H (3.8-10.6) k/uL RBC 3.67 L (4.30-5.90) m/uL Hgb 11.8 L (13.0-17.5) gm/dL Hct 36.6 L (39.0-53.0) % MCV (80.0-100.0) fL RDW 16.3 H (11.5-15.5) % Plt Count 104 L (150-450) k/uL Neutrophils # 12.4 H (1.3-7.7) k/uL Lymphocytes # 0.8 L (1.0-4.8) k/uL Sodium (137-145) mmol/L Chloride (98-107) mmol/L BUN (9-20) mg/dL Creatinine (0.66-1.25) mg/dL Glucose (74-99) mg/dL POC Glucose (mg/dL) (70-110) mg/dL Calcium (8.4-10.2) mg/dL Total Bilirubin (0.2-1.3) mg/dL ALT (4-49) U/L Total Protein (6.3-8.2) g/dL Albumin (3.5-5.0) g/dL Microbiology - Last 24 Hours (Table) 10/16/21 21:06 Blood Culture - Final Blood No Growth after 144 hours Assessment and Plan Plan: Assessment: 1. Acute kidney injury secondary to ATN secondary to hypotension and cardiorenal syndrome. Nonoliguric. Creatinine peaked at 4.12 this admission and is 2.16 today. 2. Chronic kidney disease stage IIIB secondary to diabetic kidney disease with baseline creatinine in the range of 1.72 in August 2021. 3. Acute on chronic systolic CHF with ejection fraction of 20-25%. 4. Diabetes mellitus. 5. Cholangitis. On antibiotics. Surgery and ID following. 6. Hypervolemic hyponatremia. Plan: Maintain IV Lasix. 1500 mL fluid restriction. Encourage oral intake. Avoid nephrotoxins. Continue to monitor renal function and urine output.
[2021-10-23 10:55] VITALS: BMI 33.4
[2021-10-23] MEDS: HYDROmorphone 0.5 MG/0.5 ML SYRINGE IVP PRN ×2 (10:56→19:48)
--- NOTE | 2021-10-23 11:13 | P.PN ---
Subjective Progress Note Date: 10/23/21 Principal diagnosis: Acute DVT left lower extremity This is a 66-year-old white male with history of multiple medical problems including three-vessel coronary artery disease, ischemic cardiomyopathy and LV dysfunction, declined AICD placement in the past. Patient was seen yesterday at [facility] ER in [place], and he felt that he may have had food poisoning as he presented mostly with symptoms nausea vomiting and diarrhea. Patient was noted to have multiple abnormal labs, however further workup revealed evidence of left lower extremity DVT. Patient was transferred to [facility], and he was noted to have left lower extremity DVT, many abnormal labs including CBC showing leukocytosis with WBC count of 24.8. Elevated INR of 1.8. Elevated potassium of 6.5. Elevated BUN of 53 and creatinine of 3.29. Patient was also noted to be acidotic with an anion gap metabolic acidosis of 17. Elevated total bilirubin of 2.8, elevated liver enzymes with AST of 3128 and elevated ALT of 1450. Elevated troponin of 2.46. Elevated BNP of 57,000. And elevated lactic acid of 5.6. Considering the multiple abnormalities noted, patient was seen by many consultants. And he had extensive workup over the last 24 hours. The workup included a chest x-ray which showed cardiomegaly, and minimal basilar atelectasis. Ultrasound of the gallbladder showed evidence of cholelithiasis, and radiologist raised the possibility of cholecystitis with underlying hepatocellular disease and hepatic steatosis VQ scan was nondiagnostic. Patient had abdominal bladder ultrasound and this is pending. Patient was seen by vascular surgery for DVT, and the recommendation was basically continue heparin, no surgical intervention was felt to be necessary patient was seen by general surgery for his cholelithiasis, and the recommendation was observation and watch him closely, patient did not have clinical symptoms of cholecystitis. Patient was seen by cardiology for his LV dysfunction and history of ischemic cardiomyopathy, the recommendation was supportive care measures, high surgical risk. Avoid surgery unless it is absolutely necessary, seen by nephrology for his acute kidney injury felt to be secondary to hypotension with oligoria, and the recommendation was to check a bladder scan, rule out urinary retention, and recommended bicarb drip. And recommended mostly renal ultrasound and avoiding nephrotoxic agents considering his complex multiple medical problems, I was notified about this patient by the admitting physician Dr. Johnson, and I arranged for the patient to be admitted to the ICU. In the meantime I'm recommending that we follow the recommendation of different consultants on the case and monitor the patient closely. In the meantime continue heparin. And continue antibiotics. Patient will be seen by infectious disease on consultation. Reevaluated today on 10/18/21, patient remains in the ICU, feeling a bit better today compared to yesterday. Hardly any shortness of breath. No abdominal pain. No nausea no vomiting. Surprisingly his liver enzymes are showing significant improvement since admission. Renal functioning is a bit worse. WBC count is 16 hemoglobin is 12, PTT is therapeutic at 63.5. Electrolytes are normal BUN however is up to 74 creatinine up to 4.12. AST is down to 749 and ALT is down to 1351. Patient had MRCP, and basically nondiagnostic. In the meantime the patient remains on daptomycin and on Unasyn. For presumptive clinical suspicion of acute cholecystitis and cholangitis, blood cultures have b een negative since admission. Pulmonary-gagnon the patient is doing fairly well. Reevaluated today on 10/19/21, patient seems to be doing fairly well, remains in the ICU, no major issues over the last 24 hours. Patient denies any shortness of breath denies any cough denies any chest pain no nausea no vomiting no abdominal pain. He is on few liters nasal cannula, not in any distress, remains on sodium bicarb drip, at 50 mL per hour. Remains on daptomycin and Unasyn. Chest x-ray showed minimal bilateral atelectasis, no evidence of infiltrate or pneumonia and no evidence of congestive heart failure. WBC count is 12.9 hemoglobin 11.9 PTT is therapeutic at lites are normal renal profile remains poor with a creatinine of 3.99. BUN of 83. Liver enzymes are improving AST is down to 371 ALT 946. Alkaline phosphatase is 58 Reevaluated today on 10/20/21, patient remains in the ICU as an overflow. Patient is doing well, no specific complaints, remains on heparin however this is to be transitioned to eliquis. Patient is on 4 L nasal cannula, O2 sats is 95%. Does not seem to be in any distress. His WBC count is 12.9 hemoglobin 12.5. Electrolytes are normal renal profile is about the same BUN is 80 creatinine 3.88 liver enzymes continued to improve Patient is seen today 10/21/2021 on the selective care unit. He sitting up in bed. Awake and alert in no acute distress. Maintaining O2 saturations in the 90s on 2 L/m per nasal cannula. He denies any significant abdominal pain c urrently. No fever or chills. No worsening shortness of breath cough or congestion. All cultures here reveal no growth. White count 14.1. Hemoglobin 13.7. Platelets 101. Sodium 134. Potassium 3.9. BUN 75. Creatinine 3.11. AST 81. ALT 468. Alk phos 105. He is continued on Unasyn. Anticoagulated with Eliquis. The patient is seen today 10/22/2021 in follow-up on the selective care unit. He is currently sitting up in a chair at the bedside. Awake and alert in no acute distress. He is still weak. He has a poor appetite. He is maintaining O2 saturations in the 90s on 2 L/m per nasal cannula. He's been afebrile. Hemodynamically stable. Blood cultures revealed no growth. Blood glucose 185. He remains on Unasyn. Anticoagulated with Eliquis. IV diuretics per nephrology. Labs pending. The patient is seen today 10/23/2021 in follow-up on the selective care unit. He is currently resting comfortably in bed. Awake and alert in no acute distress. He is feeling a bit stronger today compared to yesterday. O2 saturations in the upper 90s on 2 L/m per nasal cannula. She's afebrile. Hemodynamically stable. Blood cultures reveal no growth. White count 14.5. Hemoglobin 11.8. Platelets 104. Sodium 131. Potassium 3.7. BUN 70. Creatinine 2.16. Glucose 183. C-reactive protein 19.8. He is continued on Unasyn. Anticoagulated with Eliquis. Objective - Vital Signs Vital signs: Vital Signs Temp 97.0 F L 10/23/21 08:00 Pulse 79 10/23/21 08:00 Resp 17 10/23/21 08:00 BP 132/77 10/23/21 08:00 Pulse Ox 98 10/23/21 08:00 FiO2 Intake & Output 10/22/21 10/23/21 10/23/21 18:59 06:59 18:59 Intake Total 480 250 Output Total 1000 700 Balance -520 -450 Weight 105.7 kg Intake: Intake, IV Titration 100 Amount Ampicillin-Sulbactam 3 gm 100 In Sodium Chloride 0.9% 100 ml @ 200 mls/hr IVPB Q12HR [facility] Rx#:[id number] Oral 480 150 Output: Urine 1000 700 Other: Voiding Method Indwelling Catheter Indwelling Catheter - Exam GENERAL EXAM: Alert, pleasant 66-year-old male, on 2 L nasal cannula, comfortable in no apparent distress. HEAD: Normocephalic. EYES: Normal reaction of pupils, equal size. NOSE: Clear with pink turbinates. THROAT: No erythema or exudates. NECK: No masses, no JVD. CHEST: No chest wall deformity. LUNGS: Equal air entry with no crackles, wheeze, rhonchi or dullness. CVS: S1 and S2 normal with no audible murmur, regular rhythm. ABDOMEN: No hepatosplenomegaly, normal bowel sounds, no guarding or rigidity. SPINE: No scoliosis or deformity SKIN: Chronic venous stasis of the lower extremities CENTRAL NERVOUS SYSTEM: No focal deficits, tone is normal in all 4 extremities. EXTREMITIES: Chronic venous stasis of the lower extremities superficial ulceration of left lower extremity. No clubbing, no cyanosis. Peripheral pulse s are intact. - Labs CBC & Chem 7: 10/23/21 08:32 10/23/21 08:42 Labs: Abnormal Lab Results - Last 24 Hours (Table) 10/22/21 10/22/21 10/22/21 Range/Units 10:11 10:11 11:46 WBC 12.5 H (3.8-10.6) k/uL RBC 3.85 L (4.30-5.90) m/uL Hgb 12.6 L (13.0-17.5) gm/dL Hct (39.0-53.0) % MCV 101.3 H (80.0-100.0) fL RDW 16.8 H (11.5-15.5) % Plt Count 88 L (150-450) k/uL Neutrophils # 11.1 H (1.3-7.7) k/uL Lymphocytes # 0.4 L (1.0-4.8) k/uL Sodium 133 L (137-145) mmol/L Chloride 94 L (98-107) mmol/L BUN 72 H (9-20) mg/dL Creatinine 2.58 H (0.66-1.25) mg/dL Glucose 190 H (74-99) mg/dL POC Glucose (mg/dL) 185 H (70-110) mg/dL Calcium 7.9 L (8.4-10.2) mg/dL Total Bilirubin 1.5 H (0.2-1.3) mg/dL ALT 247 H (4-49) U/L C-Reactive Protein (<1.0) mg/dL Total Protein 5.8 L (6.3-8.2) g/dL Albumin 2.9 L (3.5-5.0) g/dL 10/22/21 10/22/21 10/23/21 Range/Units 16:44 20:31 05:53 WBC (3.8-10.6) k/uL RBC (4.30-5.90) m/uL Hgb (13.0-17.5) gm/dL Hct (39.0-53.0) % MCV (80.0-100.0) fL RDW (11.5-15.5) % Plt Count (150-450) k/uL Neutrophils # (1.3-7.7) k/uL Lymphocytes # (1.0-4.8) k/uL Sodium (137-145) mmol/L Chloride (98-107) mmol/L BUN (9-20) mg/dL Creatinine (0.66-1.25) mg/dL Glucose (74-99) mg/dL POC Glucose (mg/dL) 179 H 208 H 161 H (70-110) mg/dL Calcium (8.4-10.2) mg/dL Total Bilirubin (0.2-1.3) mg/dL ALT (4-49) U/L C-Reactive Protein (<1.0) mg/dL Total Protein (6.3-8.2) g/dL Albumin (3.5-5.0) g/dL 10/23/21 10/23/21 Range/Units 08:32 08:42 WBC 14.5 H (3.8-10.6) k/uL RBC 3.67 L (4.30-5.90) m/uL Hgb 11.8 L (13.0-17.5) gm/dL Hct 36.6 L (39.0-53.0) % MCV (80.0-100.0) fL RDW 16.3 H (11.5-15.5) % Plt Count 104 L (150-450) k/uL Neutrophils # 12.4 H (1.3-7.7) k/uL Lymphocytes # 0.8 L (1.0-4.8) k/uL Sodium 131 L (137-145) mmol/L Chloride (98-107) mmol/L BUN 70 H (9-20) mg/dL Creatinine 2.16 H (0.66-1.25) mg/dL Glucose 183 H (74-99) mg/dL POC Glucose (mg/dL) (70-110) mg/dL Calcium 7.8 L (8.4-10.2) mg/dL Total Bilirubin (0.2-1.3) mg/dL ALT (4-49) U/L C-Reactive Protein 19.8 H (<1.0) mg/dL Total Protein (6.3-8.2) g/dL Albumin (3.5-5.0) g/dL Microbiology - Last 24 Hours (Table) 10/16/21 21:06 Blood Culture - Final Blood No Growth after 144 hours Assessment and Plan Assessment: 1 Acute deep vein thromboses involving left lower extremity. Currently on Eliquis. 2 Suspect possible cholangitis with sepsis 3 Bacteremia at outside facility, currently on Unasyn. Blood cultures here reveal no growth. 4 Acute hepatitis. LFTs trending down 5 Acute kidney injury possibly acute on chronic kidney disease. Could very well be cardiorenal in nature. 6 Coronary artery disease and history of severe ischemic cardiomyopathy and LV dysfunction 7 Type 2 diabetes. 8 Dyslipidemia. 9 Benign essential hypertension. 10 Acute anion gap metabolic acidosis, multifactorial, but mostly secondary to his acute kidney injury. 11 Acute hyperkalemia secondary to acute kidney injury. Resolved. Plan: The patient was seen and evaluated Labs and medications reviewed Remains on Unasyn Titrate the FiO2 as tolerated Increase his activity as tolerated We will continue to follow I have personally seen and examined the patient, performed the documentation and the assessment and plan as written. Number of minutes spent on the visit: 10.
[2021-10-23 11:48] LABS: Glucose,Whole Blood 201 mg/dL (70-110)
[2021-10-23 13:09] LABS: Erythrocyte Sedimentation Rate 88 mm/hr (0-15)
--- NOTE | 2021-10-23 13:27 | P.PN ---
Subjective Progress Note Date: 10/23/21 HISTORY OF PRESENT ILLNESS: This is a 66 year old male with history of CAD with previous stenting and cardiomyopathy with an ejection fraction of 20-25%. He is a patient of Dr. Miranda. He has refused AICD implantation in the past and continues to do so. Patient examined this morning. Patient denies any chest pain or pressure. He denies shortness of breath. He reports feeling overall weak and fatigued. The patient has been having some runs of nonsustained ventricular tachycardia. Patient's beta tonya was increased yesterday. PHYSICAL EXAM: VITAL SIGNS: Reviewed. GENERAL: Well-developed in no acute distress. NECK: Supple. No JVD or thyromegaly LUNGS: Respirations even and unlabored. Lungs essentially clear to auscultation bilaterally. HEART: Regular rate and rhythm. S1 and S2 heard. EXTREMITIES: Normal range of motion. No clubbing or cyanosis. Peripheral pulses intact. 2+ bilateral lower extremity edema, left worse than right. ASSESSMENT: Sepsis Cholangitis Acute left lower extremity DVT Nonsustained ventricular tachycardia Bacteremia, at outside facility, blood cultures here negative Transaminitis Acute kidney injury Coronary artery disease with previous stenting Ischemic cardiomyopathy PLAN: Continue current cardiac medications Continue metoprolol Not a candidate for amio due to elevated LFTs Resume statin when LFTs normalize Continue to monitor electrolytes and supplement as appropriate Further recommendations pending patient course Nurse practitioner note has been reviewed by physician. Signing provider agrees with the documented findings, assessment, and plan of care. Objective - Vital Signs Vital signs: Vital Signs Temp 96.8 F L 10/23/21 12:00 Pulse 77 10/23/21 12:00 Resp 18 10/23/21 12:00 BP 117/97 10/23/21 12:00 Pulse Ox 98 10/23/21 12:00 FiO2 Intake & Output 10/22/21 10/23/21 10/23/21 18:59 06:59 18:59 Intake Total 480 250 Output Total 1000 700 Balance -520 -450 Weight 105.7 kg Intake: Intake, IV Titration 100 Amount Ampicillin-Sulbactam 3 gm 100 In Sodium Chloride 0.9% 100 ml @ 200 mls/hr IVPB Q12HR [facility] Rx#:[id number] Oral 480 150 Output: Urine 1000 700 Other: Voiding Method Indwelling Catheter Indwelling Catheter Indwelling Catheter - Labs CBC & Chem 7: 10/23/21 08:32 10/23/21 08:42 Labs: Abnormal Lab Results - Last 24 Hours (Table) 10/22/21 10/22/21 10/23/21 Range/Units 16:44 20:31 05:53 WBC (3.8-10.6) k/uL RBC (4.30-5.90) m/uL Hgb (13.0-17.5) gm/dL Hct (39.0-53.0) % RDW (11.5-15.5) % Plt Count (150-450) k/uL Neutrophils # (1.3-7.7) k/uL Lymphocytes # (1.0-4.8) k/uL ESR (0-15) mm/hr Sodium (137-145) mmol/L BUN (9-20) mg/dL Creatinine (0.66-1.25) mg/dL Glucose (74-99) mg/dL POC Glucose (mg/dL) 179 H 208 H 161 H (70-110) mg/dL Calcium (8.4-10.2) mg/dL C-Reactive Protein (<1.0) mg/dL 10/23/21 10/23/21 10/23/21 Range/Units 08:32 08:42 11:45 WBC 14.5 H (3.8-10.6) k/uL RBC 3.67 L (4.30-5.90) m/uL Hgb 11.8 L (13.0-17.5) gm/dL Hct 36.6 L (39.0-53.0) % RDW 16.3 H (11.5-15.5) % Plt Count 104 L (150-450) k/uL Neutrophils # 12.4 H (1.3-7.7) k/uL Lymphocytes # 0.8 L (1.0-4.8) k/uL ESR 88 H (0-15) mm/hr Sodium 131 L (137-145) mmol/L BUN 70 H (9-20) mg/dL Creatinine 2.16 H (0.66-1.25) mg/dL Glucose 183 H (74-99) mg/dL POC Glucose (mg/dL) 201 H (70-110) mg/dL Calcium 7.8 L (8.4-10.2) mg/dL C-Reactive Protein 19.8 H (<1.0) mg/dL Microbiology - Last 24 Hours (Table) 10/16/21 21:06 Blood Culture - Final Blood No Growth after 144 hours
--- NOTE | 2021-10-23 13:34 | P.PN ---
Subjective Progress Note Date: 10/23/21 CHIEF COMPLAINT: Left leg DVT HISTORY OF PRESENT ILLNESS: Surgical service following in regards to patient's gallstones. He denies any abdominal pain. Denies any nausea or vomiting. He is tolerating regular diet. Patient is sitting up at bedside chair. He is complaining of leg pain, back pain and hand pain. Patient did have a low-grade temp of 100.4 last night. WBC 12.5 up to 14.5 Hgb 11.8 platelets 104 sodium 131 creatinine 2.6 no LFTs today total bili 1.5 AST 39 ALT 247 alk phos 82 LFTs tren ding downwards. Nephrology has ordered a dose of IV Lasix for fluid overload. Cardiology following due to runs of nonsustained atrial tachycardia. Patient seen and examined with Dr. coombs PHYSICAL EXAM: VITAL SIGNS: Reviewed. GENERAL: Well-developed in no acute distress. HEENT: No sclera icterus. Extraocular movements grossly intact. Moist buccal mucosa. Head is atraumatic, normocephalic. ABDOMEN: Soft. Nondistended. Nontender. NEUROLOGIC: Alert and oriented. Cranial nerves II through XII grossly intact. Extremities: Drainage through bandage on the left lower extremity ASSESSMENT: 1. Cholelithiasis. No abdominal pain. No significant sign of cholecystitis. 2. Choledocholithiasis 3. Abdominal pain due to Cholangitis. Improved 4. Left leg DVT 5. Acute on chronic systolic CHF with EF of 20-25% PLAN: -Continue to monitor -No surgical intervention planned -Continue antibiotics per ID service -Continue supportive care Physician Veterinary Dentist note has been reviewed by physician. Signing provider agrees with the documented findings, assessment, and plan of care. Objective - Vital Signs Vital signs: Vital Signs Temp 96.8 F L 10/23/21 12:00 Pulse 77 10/23/21 12:00 Resp 18 10/23/21 12:00 BP 117/97 10/23/21 12:00 Pulse Ox 98 10/23/21 12:00 FiO2 Intake & Output 10/22/21 10/23/21 10/23/21 18:59 06:59 18:59 Intake Total 480 250 Output Total 1000 700 Balance -520 -450 Weight 105.7 kg Intake: Intake, IV Titration 100 Amount Ampicillin-Sulbactam 3 gm 100 In Sodium Chloride 0.9% 100 ml @ 200 mls/hr IVPB Q12HR [facility] Rx#:[id number] Oral 480 150 Output: Urine 1000 700 Other: Voiding Method Indwelling Catheter Indwelling Catheter Indwelling Catheter - Labs CBC & Chem 7: 10/23/21 08:32 10/23/21 08:42 Labs: Abnormal Lab Results - Last 24 Hours (Table) 10/22/21 10/22/21 10/23/21 Range/Units 16:44 20:31 05:53 WBC (3.8-10.6) k/uL RBC (4.30-5.90) m/uL Hgb (13.0-17.5) gm/dL Hct (39.0-53.0) % RDW (11.5-15.5) % Plt Count (150-450) k/uL Neutrophils # (1.3-7.7) k/uL Lymphocytes # (1.0-4.8) k/uL ESR (0-15) mm/hr Sodium (137-145) mmol/L BUN (9-20) mg/dL Creatinine (0.66-1.25) mg/dL Glucose (74-99) mg/dL POC Glucose (mg/dL) 179 H 208 H 161 H (70-110) mg/dL Calcium (8.4-10.2) mg/dL C-Reactive Protein (<1.0) mg/dL 10/23/21 10/23/21 10/23/21 Range/Units 08:32 08:42 11:45 WBC 14.5 H (3.8-10.6) k/uL RBC 3.67 L (4.30-5.90) m/uL Hgb 11.8 L (13.0-17.5) gm/dL Hct 36.6 L (39.0-53.0) % RDW 16.3 H (11.5-15.5) % Plt Count 104 L (150-450) k/uL Neutrophils # 12.4 H (1.3-7.7) k/uL Lymphocytes # 0.8 L (1.0-4.8) k/uL ESR 88 H (0-15) mm/hr Sodium 131 L (137-145) mmol/L BUN 70 H (9-20) mg/dL Creatinine 2.16 H (0.66-1.25) mg/dL Glucose 183 H (74-99) mg/dL POC Glucose (mg/dL) 201 H (70-110) mg/dL Calcium 7.8 L (8.4-10.2) mg/dL C-Reactive Protein 19.8 H (<1.0) mg/dL Microbiology - Last 24 Hours (Table) 10/16/21 21:06 Blood Culture - Final Blood No Growth after 144 hours
[2021-10-23 16:16] LABS: Glucose,Whole Blood 246 mg/dL (70-110)
--- NOTE | 2021-10-23 16:26 | P.PN ---
Subjective Progress Note Date: 10/22/21 Principal diagnosis: Thrombocytopenia Stable Platlets no intervention needed liver function improving Objective - Vital Signs Vital signs: Vital Signs Temp 97.4 F L 10/22/21 16:00 Pulse 89 10/22/21 16:00 Resp 18 10/22/21 16:00 BP 137/83 10/22/21 16:00 Pulse Ox 90 L 10/22/21 16:00 FiO2 Intake & Output 10/22/21 10/22/21 10/23/21 06:59 18:59 06:59 Intake Total 480 Output Total 1100 1000 Balance -1100 -520 Intake: Oral 480 Output: Urine 900 1000 Straight 600 Post Void Residual 200 Other: Voiding Method Urinal Indwelling Catheter # Voids 1 # Bowel Movements 1 - Exam - Constitutional General appearance: cooperative, no acute distress - EENT Eyes: EOMI ENT: NA/AT - Neck Neck: normal ROM - Respiratory Respiratory: bilateral: diminished - Cardiovascular Rhythm: regularly irregular - Gastrointestinal General gastrointestinal: distended - Integumentary Integumentary: jaundiced - Musculoskeletal Musculoskeletal: strength equal bilaterally - Psychiatric Psychiatric: A&O x's 3, appropriate affect, intact judgment & insight - Labs CBC & Chem 7: 10/22/21 10:11 10/22/21 10:11 Labs: Abnormal Lab Results - Last 24 Hours (Table) 10/21/21 10/22/21 10/22/21 Range/Units 19:37 05:29 10:11 WBC (3.8-10.6) k/uL RBC (4.30-5.90) m/uL Hgb (13.0-17.5) gm/dL MCV (80.0-100.0) fL RDW (11.5-15.5) % Plt Count (150-450) k/uL Neutrophils # (1.3-7.7) k/uL Lymphocytes # (1.0-4.8) k/uL Sodium 133 L (137-145) mmol/L Chloride 94 L (98-107) mmol/L BUN 72 H (9-20) mg/dL Creatinine 2.58 H (0.66-1.25) mg/dL Glucose 190 H (74-99) mg/dL POC Glucose (mg/dL) 191 H 185 H (70-110) mg/dL Calcium 7.9 L (8.4-10.2) mg/dL Total Bilirubin 1.5 H (0.2-1.3) mg/dL ALT 247 H (4-49) U/L Total Protein 5.8 L (6.3-8.2) g/dL Albumin 2.9 L (3.5-5.0) g/dL 10/22/21 10/22/21 10/22/21 Range/Units 10:11 11:46 16:44 WBC 12.5 H (3.8-10.6) k/uL RBC 3.85 L (4.30-5.90) m/uL Hgb 12.6 L (13.0-17.5) gm/dL MCV 101.3 H (80.0-100.0) fL RDW 16.8 H (11.5-15.5) % Plt Count 88 L (150-450) k/uL Neutrophils # 11.1 H (1.3-7.7) k/uL Lymphocytes # 0.4 L (1.0-4.8) k/uL Sodium (137-145) mmol/L Chloride (98-107) mmol/L BUN (9-20) mg/dL Creatinine (0.66-1.25) mg/dL Glucose (74-99) mg/dL POC Glucose (mg/dL) 185 H 179 H (70-110) mg/dL Calcium (8.4-10.2) mg/dL Total Bilirubin (0.2-1.3) mg/dL ALT (4-49) U/L Total Protein (6.3-8.2) g/dL Albumin (3.5-5.0) g/dL Microbiology - Last 24 Hours (Table) 10/16/21 21:06 Blood Culture - Preliminary Blood No Growth after 120 hours Assessment and Plan (1) Thrombocytopenia Narrative/Plan: Further work-up ordered Likely consumption, shock liver and liver failure secondary to hypotension. Compoenent of DIC possible with acute infectious/inflammatory picture will further assess for other causes labs ordered Ok to continue anticoagulation with platlelets greater than 50K and no active bleeding. Stable today at 89K Current Visit: Yes Status: Acute Code(s): D69.6 - THROMBOCYTOPENIA, UNSP ECIFIED SNOMED Code(s): 363481885 (2) DVT (deep venous thrombosis) Narrative/Plan: Continue on DOAC Current Visit: Yes Status: Acute Code(s): I82.409 - ACUTE EMBOLISM AND THOMBOS UNSP DEEP VN UNSP LOWER EXTREMITY SNOMED Code(s): 178568887 (3) Acute kidney injury Current Visit: Yes Status: Acute Code(s): N17.9 - ACUTE KIDNEY FAILURE, UNSPECIFIED SNOMED Code(s): 55760111 (4) Elevated LFTs Current Visit: Yes Status: Acute Code(s): R79.89 - OTHER SPECIFIED ABNORMAL FINDINGS OF BLOOD CHEMISTRY SNOMED Code(s): 205112591 (5) Elevated troponin Current Visit: Yes Status: Acute Code(s): R74.8 - ABNORMAL LEVELS OF OTHER SERUM ENZYMES SNOMED Code(s): 263656160 (6) Congestive heart failure Current Visit: No Status: Acute Code(s): I50.9 - HEART FAILURE, UNSPECIFIED SNOMED Code(s): 15932233 (7) Coagulopathy Narrative/Plan: DIC work-up neg overall improving Current Visit: Yes Status: Acute Code(s): D68.9 - COAGULATION DEFECT, UNSPECIFIED SNOMED Code(s): 01027216 Plan: Continue CBC and CMP monitoring
--- NOTE | 2021-10-23 16:27 | P.PN ---
Progress Note - Text Progress Note Date: 10/23/21 Chief Complaint: Left leg pain This is a pleasant 66-year-old patient, follows with Dr. Mike Escobar. Chronic stable medical conditions include CAD with stent, diabetes, hypertension, hyperlipidemia anxiety. Yesterday patient was walking about in [facility] when he started feeling unwell. Decided to leave the store and came to the parking lot. Sat down there. Decided to drive home. Patient has several bouts of nausea and vomiting. [facility] of the ER. He was then discharged last night. Denied any fever and chills. Had some abdominal pain. Settle down. He did gets IV fluids at the other hospital. Patient very early this morning started having pain from mid thigh down the leg. Rather significant. No injury. Patient had some sweating for some time. In the ER was found to have a common femoral relevant DVT. Also had arterial Doppler done which was reviewed by Dr. Mike found to be normal. No arterial compromise. Denies any nausea vomiting abdominal pain today. Patient noted to have increased LFTs compared to the was done at [facility]. Admitted with: Acute DVT of the left common femoral vein, choledocholithiasis asymptomatic, acute ischemic hepatitis, acute kidney injury, metabolic acidosis, positive blood cultures from the outside hospital. Patient started IV heparin, sodium bicarbonate drip, IV cefepime and IV daptomycin,. Acute arterial compromise was ruled out by arterial Doppler by Dr. Mike. Hyperkalemia treated. October 17: Because of multiple issues patient smoked in the ICU yesterday evening. Today patient on 5 L of nasal cannula. Decreased urine output. Bicarbonate drip. IV heparin. Doppler ultrasound showing distal pulses. October 18: ICU: Was up in a chair today. IV heparin. IV bicarbonate drip. 4 L nasal cannula. Had blisters on lower extremity. They will popped by vascular. October 19: ICU: Reclining in bed. IV heparin. After bicarbonate drip. KAYDEN stockings. 4 L nasal cannula. Did eat some food. October 20: ICU: Breathing better. On 3 L of nasal cannula. IV heparin stopped. Eliquis started. KAYDEN stockings. Leg pain better.. October 21: Moved to the medical floor. On 2 L nasal cannula. Not hungry. Blood cultures from [facility] showed Streptococcus. Penicillin sensitive. IV daptomycin discontinued. October 22: Oral intake better. On 2 L nasal cannula. On IV Unasyn. Noticed to have some areas of localized redness raised fingers knee etc. Has remained afebrile. October 23: Oral intake better. On 2 L nasal cannula. Will check pulse ox on room air. On IV Unasyn. Requiring assist to stand. Looking at inpatient rehab. Active Medications Acetaminophen (Acetaminophen Tab 325 Mg Tab) 325 mg PO Q6H PRN PRN Reason: Pain or Fever > 100.5 Last Admin: 10/22/21 21:41 Dose: 325 mg Alprazolam (Alprazolam 0.25 Mg Tab) 0.25 mg PO BID PRN PRN Reason: Anxiety Last Admin: 10/20/21 01:24 Dose: 0.25 mg Apixaban (Apixaban 5 Mg Tab) 10 mg PO BID [facility]; Protocol Stop: 10/26/21 21:01 Last Admin: 10/23/21 08:23 Dose: 10 mg Aspirin (Aspirin 81 Mg) 81 mg PO DAILY [facility] Last Admin: 10/23/21 08:24 Dose: 81 mg Fluoxetine HCl (Fluoxetine Hcl 20 Mg Cap) 20 mg PO HS [facility] Last Admin: 10/22/21 21:41 Dose: 20 mg Furosemide (Furosemide 10 Mg/Ml 4 Ml Vial) 40 mg IV DAILY [facility] Last Admin: 10/23/21 08:24 Dose: 40 mg Hydromorphone HCl (Hydromorphone 0.5 Mg/0.5 Ml Syringe) 0.5 mg IVP Q3HR PRN PRN Reason: Moderate Pain Last Admin: 10/23/21 10:56 Dose: 0.5 mg Ampicillin Sodium/Sulbactam (Sodium 3 gm/ Sodium Chloride) 100 mls @ 200 mls/hr IVPB Q8HR [facility]; Protocol Last Admin: 10/23/21 16:21 Dose: 200 mls/hr Insulin Aspart (Insulin Aspart (Novolog) 100 Unit/Ml Vial) 0 unit SQ AC-TID [facility]; Protocol Last Admin: 10/23/21 16:19 Dose: 4 unit Insulin Detemir (Insulin Detemir (Levemir) 100 Unit/Ml Syr) 20 unit SQ HS [facility] Last Admin: 10/22/21 21:42 Dose: 20 unit Metoprolol Succinate (Metoprolol Succinate (Er) 50 Mg Tab.Er.24h) 50 mg PO DAILY [facility] Last Admin: 10/23/21 08:23 Dose: 50 mg Naloxone HCl (Naloxone 0.4 Mg/Ml 1 Ml Vial) 0.2 mg IV Q2M PRN PRN Reason: Opioid Reversal Nitroglycerin (Nitroglycerin Sl Tabs 0.4 Mg Tab) 0.4 mg SUBLINGUAL Q5M PRN PRN Reason: Chest Pain Ondansetron HCl (Ondansetron 4 Mg/2 Ml Vial) 4 mg IVP Q8HR PRN PRN Reason: Nausea And Vomiting Tamsulosin HCl (Tamsulosin 0.4 Mg Cap.Er.24h) 0.4 mg PO PC-SUPPER [facility] Last Admin: 10/22/21 16:58 Dose: 0.4 mg Past medical history to include: CAD with stent, diabetes, hypertension, hyperlipidemia, skin cancer on the nose in August 2020, anxiety 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 Nonsmoker. Alcohol rarely. Family history: Diabetes, CAD Physical examination: VITAL SIGNS: 96.8, 77, 18, 1.7-97, 98% 2 L GENERAL: reclining in the chair, awake EYES: Pupils equal. Conjunctiva normal. HEENT: External appearance of nose and ears normal, oral cavity grossly normal. NECK: JVD not raised; masses not palpable. HEART: First and second heart sounds are normal; some edema. LUNGS: Respiratory rate increased; decreased breath sound . ABDOMEN: Soft, nontender, liver spleen not palpable, no masses palpable. PSYCH: [Alert and oriented x3; mood and affect slightly anxious MUSCULOSKELETAL:No Clubbing/cyanosis;muscles-grossly intact DERMATOLOGICAL: Some scattered areas of localized redness raised in the center including the right knee, finger EXTREMITIES: [ Shiny skin lower extremity.necrobiosis lipoidica. Edema de creased. ischemic and fungal nails. Some tenderness.] KAYDEN stockneisha INVESTIGATIONS, reviewed in the clinical context: October 23: WBC 14.5 hemoglobin 11.8 platelets 104 potassium 3.7 BUN 70 creatinine 2.16 CRP 19.8 procalcitonin 1.25 October 22: WBC 12.5 hemoglobin 12.6 platelets 88 potassium 3.9 creatinine 2.58 BUN 72 October 21: WBC 14.1 hemoglobin 12.7 potassium 3.9 creatinine 3.11 Blood culture from [facility]: Streptococcus October 20: W 12.9 hemoglobin 12.5 platelets 93 potassium 3.9 BUN 80 creatinine 3.88 AST 178 ALT 697 albumin 2.9 October 19: WBC 12.9 hemoglobin 11.9 platelets 104 potassium 3.8. 83 creatinine 3.9 [birth year]/1971 ALT 946 albumin 2.6 2-D echocardiogram: EF 20-25%. October 18: White count 16 hemoglobin 12 platelets 149 sodium 135 potassium 4.4 creatinine 4.12 AST 749 ALT 1351 October 17: White count 20.1 hemoglobin 1.4 platelets 154 INR 2.4 sodium 132 potassium 6 BUN 57 creatinine 3.47 lactic acidosis 3.5 AST 08/06/2008 ALT 2181 White count 31.4 hemoglobin 15.4 platelets 267 sodium 139 potassium 6.2 bicarbonate 12 BUN 41 creatinine 2.81 lactic acid 11.6 AST 494 ALT 240 troponin I 0.640, 2.4 EKG tracing personally reviewed by me-intraventricular block. Sinus rhythm. First-degree AV block. Left lower extremity venous Doppler: DVT in the common femoral vein. Chest x-ray film personally reviewed by me-cardiomegaly. Lungs clear Gallbladder ultrasound: Gallbladder filled with stones. Possible hepatic steatosis. Arterial Doppler results discussed with Dr. Mike: No evidence of vascular compromise Assessment and plan: -Acute DVT of the left common femoral vein, likely precipitated from acute gastroenteritis and decreased activity. eliquis . KAYDEN stockings. -Acute hypoxic respiratory failure, likely from CHF On 2 L nasal cannula -Possible cholangitis per ID with blood cultures positive for Streptococcus. On IV Unasyn -Ischemic cardiomyopathy, EF 20-25% -Sepsis with Streptococcus blood cultures [ from [facility]]. Blood cultures from October 16 negative IV Unasyn -Choledocholithiasis. -Episode of acute food poisoning day prior to admission Self-limited. -Acute hepatitis. Likely ischemic.: Improving Follow-up with GI -Troponinemia, likely from hemodynamic mismatch. Setting of acute kidney injury. No chest pain. IV heparin -CAD with a history of stent Aspirin 81 mg daily -Diabetes mellitus type 2, chronically on insulin Follow Accu-Cheks and sliding scale insulin. Increase Levemir 20 units at night -Hyperlipidemia Given the elevated LFTs hold Zocor. -Essential hypertension Continue to hold Norvasc -Lower extremity edema possibly from Norvasc and DVT KAYDEN stockings, bilateral -Acute kidney injury, ATN from sepsis and prerenal from nausea vomiting: Slow to respond Patient's creatinine was 1.7 on August 25. 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 Creatinine 1.7 in August 2021 -Hyperkalemia from metabolic acidosis: corrected Renal diet. Lokelma. Sodium bicarbonate drip. -Anxiety not otherwise specified Xanax 0.25 mg by mouth twice a day -IV heparin monitoring: Discontinued Follow PTT -Acute medical debility. PTOT. -Full code Eliquis . IV Unasyn . Check pulse ox on room air. Encourage oral intake. PTOT. Likely inpatient rehab.
--- NOTE | 2021-10-23 16:27 | P.PN ---
Subjective Progress Note Date: 10/23/21 Principal diagnosis: Thrombocytopenia NO new complaints Objective - Vital Signs Vital signs: Vital Signs Temp 97.5 F L 10/23/21 16:00 Pulse 79 10/23/21 16:00 Resp 15 10/23/21 16:00 BP 150/77 10/23/21 16:00 Pulse Ox 93 L 10/23/21 16:00 FiO2 Intake & Output 10/22/21 10/23/21 10/23/21 18:59 06:59 18:59 Intake Total 480 250 480 Output Total 1000 700 Balance -520 -450 480 Weight 105.7 kg Intake: Intake, IV Titration 100 Amount Ampicillin-Sulbactam 3 gm 100 In Sodium Chloride 0.9% 100 ml @ 200 mls/hr IVPB Q12HR [facility] Rx#:[id number] Oral 480 150 480 Output: Urine 1000 700 Other: Voiding Method Indwelling Catheter Indwelling Catheter Indwelling Catheter - Exam - Constitutional General appearance: cooperative, no acute distress - EENT Eyes: EOMI ENT: NA/AT - Neck Neck: normal ROM - Respiratory Respiratory: bilateral: diminished - Cardiovascular Rhythm: regularly irregular - Gastrointestinal General gastrointestinal: distended - Integumentary Integumentary: jaundiced - Musculoskeletal Musculoskeletal: strength equal bilaterally - Psychiatric Psychiatric: A&O x's 3, appropriate affect, intact judgment & insight - Labs CBC & Chem 7: 10/23/21 08:32 10/23/21 08:42 Labs: Abnormal Lab Results - Last 24 Hours (Table) 10/22/21 10/22/21 10/23/21 Range/Units 16:44 20:31 05:53 WBC (3.8-10.6) k/uL RBC (4.30-5.90) m/uL Hgb (13.0-17.5) gm/dL Hct (39.0-53.0) % RDW (11.5-15.5) % Plt Count (150-450) k/uL Neutrophils # (1.3-7.7) k/uL Lymphocytes # (1.0-4.8) k/uL ESR (0-15) mm/hr Sodium (137-145) mmol/L BUN (9-20) mg/dL Creatinine (0.66-1.25) mg/dL Glucose (74-99) mg/dL POC Glucose (mg/dL) 179 H 208 H 161 H (70-110) mg/dL Calcium (8.4-10.2) mg/dL C-Reactive Protein (<1.0) mg/dL Procalcitonin (0.02-0.09) ng/mL 10/23/21 10/23/21 10/23/21 Range/Units 08:32 08:32 08:42 WBC 14.5 H (3.8-10.6) k/uL RBC 3.67 L (4.30-5.90) m/uL Hgb 11.8 L (13.0-17.5) gm/dL Hct 36.6 L (39.0-53.0) % RDW 16.3 H (11.5-15.5) % Plt Count 104 L (150-450) k/uL Neutrophils # 12.4 H (1.3-7.7) k/uL Lymphocytes # 0.8 L (1.0-4.8) k/uL ESR 88 H (0-15) mm/hr Sodium 131 L (137-145) mmol/L BUN 70 H (9-20) mg/dL Creatinine 2.16 H (0.66-1.25) mg/dL Glucose 183 H (74-99) mg/dL POC Glucose (mg/dL) (70-110) mg/dL Calcium 7.8 L (8.4-10.2) mg/dL C-Reactive Protein 19.8 H (<1.0) mg/dL Procalcitonin 1.25 H (0.02-0.09) ng/mL 10/23/21 10/23/21 Range/Units 11:45 16:15 WBC (3.8-10.6) k/uL RBC (4.30-5.90) m/uL Hgb (13.0-17.5) gm/dL Hct (39.0-53.0) % RDW (11.5-15.5) % Plt Count (150-450) k/uL Neutrophils # (1.3-7.7) k/uL Lymphocytes # (1.0-4.8) k/uL ESR (0-15) mm/hr Sodium (137-145) mmol/L BUN (9-20) mg/dL Creatinine (0.66-1.25) mg/dL Glucose (74-99) mg/dL POC Glucose (mg/dL) 201 H 246 H (70-110) mg/dL Calcium (8.4-10.2) mg/dL C-Reactive Protein (<1.0) mg/dL Procalcitonin (0.02-0.09) ng/mL Microbiology - Last 24 Hours (Table) 10/16/21 21:06 Blood Culture - Final Blood No Growth after 144 hours Assessment and Plan (1) Thrombocytopenia Narrative/Plan: Further work-up ordered Likely consumption, shock liver and liver failure secondary to hypotension. Compoenent of DIC possible with acute infectious/inflammatory picture will further assess for other causes labs ordered Ok to continue anticoagulation with platlelets greater than 50K and no active bleeding. Stable today at 89K Current Visit: Yes Status: Acute Code(s): D69.6 - THROMBOCYTOPENIA, UNSPECIFIED SNOMED Code(s): 244764229 (2) DVT (deep venous thrombosis) Narrative/Plan: Continue on DOAC Current Visit: Yes Status: Acute Code(s): I82.409 - ACUTE EMBOLISM AND THOMBOS UNSP DEEP VN UNSP LOWER EXTREMITY SNOMED Code(s): 373825383 (3) Acute kidney injury Current Visit: Yes Status: Acute Code(s): N17.9 - ACUTE KIDNEY FAILURE, UNSPECIFIED SNOMED Code(s): 71702109 (4) Elevated LFTs Current Visit: Yes Status: Acute Code(s): R79.89 - OTHER SPECIFIED ABNORMAL FINDINGS OF BLOOD CHEMISTRY SNOMED Code(s): 261917949 (5) Elevated troponin Current Visit: Yes Status: Acute Code(s): R74.8 - ABNORMAL LEVELS OF OTHER SERUM ENZYMES SNOMED Code(s): 794390246 (6) Congestive heart failure Current Visit: No Status: Acute Code(s): I50.9 - HEART FAILURE, UNSPECIFIED SNOMED Code(s): 14059280 (7) Coagulopathy Narrative/Plan: DIC work-up neg overall improving Current Visit: Yes Status: Acute Code(s): D68.9 - COAGULATION DEFECT, UNSPECIFIED SNOMED Code(s): 13765403 Plan: Continue CBC and CMP monitoring COntinue AC therapy COntinue monitor improvements
[2021-10-23 18:11] LABS: Protein, Total 5.9 g/dL (6.2-8.2)
[2021-10-23] MEDS: TAMSULOSIN 0.4 MG CAP.ER.24H PO SCH (18:35)
[2021-10-23] MEDS: INSULIN DETEMIR (LEVEMIR) 100 UNIT/ML SYR SQ SCH (19:48)
[2021-10-23] MEDS: FLUoxetine HCL 20 MG CAP PO SCH (19:48)
[2021-10-23 20:36] LABS: Glucose,Whole Blood 239 mg/dL (70-110)
[2021-10-23] MEDS: ALPRAZolam 0.25 MG TAB PO PRN (22:55)
[2021-10-24] MEDS: HYDROmorphone 0.5 MG/0.5 ML SYRINGE IVP PRN ×4 (04:57→21:01)
[2021-10-24 05:52] LABS: Glucose,Whole Blood 110 mg/dL (70-110)
[2021-10-24] MEDS: INSULIN ASPART (NovoLOG) 100 UNIT/ML VIAL SQ SCH ×3 (06:36→17:24)
--- NOTE | 2021-10-24 07:33 | P.PN ---
Subjective Progress Note Date: 10/23/21 Principal diagnosis: Abdominal sepsis and bacteremia Patient is a 66 year male presenting to the hospital with acute nausea vomiting and abdominal pain patient did have evidence of gallstones and elevated liver enzymes did have a positive blood culture at the outside facility and subsequently transferred to [facility] for further management. On today's evaluation that is 10/23/2021, the patient remains to be afebrile, the patient denies further nausea or vomiting and no abdominal pain , the patient denies chest pain shortness of breath or cough and no diarrhea, patient has painful petechial rash to the right fifth finger area Objective - Vital Signs Vital signs: Vital Signs Temp 97.0 F L 10/23/21 08:00 Pulse 79 10/23/21 08:00 Resp 17 10/23/21 08:00 BP 132/77 10/23/21 08:00 Pulse Ox 98 10/23/21 08:00 FiO2 Intake & Output 10/22/21 10/23/21 10/23/21 18:59 06:59 18:59 Intake Total 480 250 Output Total 1000 700 Balance -520 -450 Intake: Intake, IV Titration 100 Amount Ampicillin-Sulbactam 3 gm 100 In Sodium Chloride 0.9% 100 ml @ 200 mls/hr IVPB Q12HR [facility] Rx#:[id number] Oral 480 150 Output: Urine 1000 700 Other: Voiding Method Indwelling Catheter Indwelling Catheter - Exam GENERAL DESCRIPTION: An elderly male lying in bed in no distress RESPIRATORY SYSTEM: Unlabored breathing , decreased breath sounds at bases HEART: S1 S2 regular rate and rhythm , ABDOMEN: Soft , no tenderness EXTREMITIES: No edema feet - Labs CBC & Chem 7: 10/23/21 08:32 10/23/21 08:42 Labs: Abnormal Lab Results - Last 24 Hours (Table) 10/22/21 10/22/21 10/22/21 Range/Units 10:11 10:11 11:46 WBC 12.5 H (3.8-10.6) k/uL RBC 3.85 L (4.30-5.90) m/uL Hgb 12.6 L (13.0-17.5) gm/dL Hct (39.0-53.0) % MCV 101.3 H (80.0-100.0) fL RDW 16.8 H (11.5-15.5) % Plt Count 88 L (150-450) k/uL Neutrophils # 11.1 H (1.3-7.7) k/uL Lymphocytes # 0.4 L (1.0-4.8) k/uL Sodium 133 L (137-145) mmol/L Chloride 94 L (98-107) mmol/L BUN 72 H (9-20) mg/dL Creatinine 2.58 H (0.66-1.25) mg/dL Glucose 190 H (74-99) mg/dL POC Glucose (mg/dL) 185 H (70-110) mg/dL Calcium 7.9 L (8.4-10.2) mg/dL Total Bilirubin 1.5 H (0.2-1.3) mg/dL ALT 247 H (4-49) U/L Total Protein 5.8 L (6.3-8.2) g/dL Albumin 2.9 L (3.5-5.0) g/dL 10/22/21 10/22/21 10/23/21 Range/Units 16:44 20:31 05:53 WBC (3.8-10.6) k/uL RBC (4.30-5.90) m/uL Hgb (13.0-17.5) gm/dL Hct (39.0-53.0) % MCV (80.0-100.0) fL RDW (11.5-15.5) % Plt Count (150-450) k/uL Neutrophils # (1.3-7.7) k/uL Lymphocytes # (1.0-4.8) k/uL Sodium (137-145) mmol/L Chloride (98-107) mmol/L BUN (9-20) mg/dL Creatinine (0.66-1.25) mg/dL Glucose (74-99) mg/dL POC Glucose (mg/dL) 179 H 208 H 161 H (70-110) mg/dL Calcium (8.4-10.2) mg/dL Total Bilirubin (0.2-1.3) mg/dL ALT (4-49) U/L Total Protein (6.3-8.2) g/dL Albumin (3.5-5.0) g/dL 10/23/21 Range/Units 08:32 WBC 14.5 H (3.8-10.6) k/uL RBC 3.67 L (4.30-5.90) m/uL Hgb 11.8 L (13.0-17.5) gm/dL Hct 36.6 L (39.0-53.0) % MCV (80.0-100.0) fL RDW 16.3 H (11.5-15.5) % Plt Count 104 L (150-450) k/uL Neutrophils # 12.4 H (1.3-7.7) k/uL Lymphocytes # 0.8 L (1.0-4.8) k/uL Sodium (137-145) mmol/L Chloride (98-107) mmol/L BUN (9-20) mg/dL Creatinine (0.66-1.25) mg/dL Glucose (74-99) mg/dL POC Glucose (mg/dL) (70-110) mg/dL Calcium (8.4-10.2) mg/dL Total Bilirubin (0.2-1.3) mg/dL ALT (4-49) U/L Total Protein (6.3-8.2) g/dL Albumin (3.5-5.0) g/dL Microbiology - Last 24 Hours (Table) 10/16/21 21:06 Blood Culture - Final Blood No Growth after 144 hours Assessment and Plan (1) Cholelithiasis Current Visit: Yes Status: Acute Code(s): K80.20 - CALCULUS OF GALLBLADDER W/O CHOLECYSTITIS W/O OBSTRUCTION SNOMED Code(s): 645663076 Plan: 1patient presented to hospital with sepsis in this patient have elevated white count elevated lactic acid presenting with nausea and vomiting with evidence of gallstones did have elevated liver enzymes and high clinic suspicious for acute cholecystitis and cholangitis and this patient did have a gram-positive bacteremia with strep more likely source is cholangitis. Final follow-up Roshni brice came with Streptococcus which is a penicillin sensitive pathogen, the patient repeat culture negative 2 patient is afebrile will call is mildly elevated covered with Unasyn and plan to finish therapy with oral Augmentin 10 days on discharge Time with Patient: Less than 30
--- NOTE | 2021-10-24 09:18 | P.PN ---
Subjective Patient is seen in follow-up for acute kidney injury on chronic kidney disease. Oral intake fair. Denies chest pain or shortness of breath. Hemodynamically stable. On IV Lasix. Vital signs are stable. General: Awake. No acute distress. HEENT: Head exam is unremarkable. LUNGS: Breath sounds decreased. HEART: Rate and Rhythm are regular. ABDOMEN: Soft, no distention. EXTREMITITES: 1+ edema. Left lower extremity wrapped. Objective - Vital Signs Vital signs: Vital Signs Temp 98.6 F 10/24/21 04:00 Pulse 70 10/24/21 04:00 Resp 18 10/24/21 04:00 BP 122/70 10/24/21 04:00 Pulse Ox 95 10/24/21 04:00 FiO2 Intake & Output 10/23/21 10/24/21 10/24/21 18:59 06:59 18:59 Intake Total 480 540 Output Total 1100 973 Balance -620 -433 Weight 105.7 kg Intake: Oral 480 540 Output: Urine 1100 300 Uretheral ([place]) 1100 Post Void Residual 673 Other: Voiding Method Indwelling Catheter Urinal Diaper # Voids 0 - Labs CBC & Chem 7: 10/23/21 08:32 10/23/21 08:42 Labs: Abnormal Lab Results - Last 24 Hours (Table) 10/20/21 10/23/21 10/23/21 Range/Units 07:24 08:32 08:32 WBC 14.5 H (3.8-10.6) k/uL RBC 3.67 L (4.30-5.90) m/uL Hgb 11.8 L (13.0-17.5) gm/dL Hct 36.6 L (39.0-53.0) % RDW 16.3 H (11.5-15.5) % Plt Count 104 L (150-450) k/uL Neutrophils # 12.4 H (1.3-7.7) k/uL Lymphocytes # 0.8 L (1.0-4.8) k/uL ESR 88 H (0-15) mm/hr Sodium (137-145) mmol/L BUN (9-20) mg/dL Creatinine (0.66-1.25) mg/dL Glucose (74-99) mg/dL POC Glucose (mg/dL) (70-110) mg/dL Calcium (8.4-10.2) mg/dL C-Reactive Protein (<1.0) mg/dL Total Protein (PEP) 5.9 L (6.2-8.2) g/dL Procalcitonin 1.25 H (0.02-0.09) ng/mL 10/23/21 10/23/21 10/23/21 Range/Units 08:42 11:45 16:15 WBC (3.8-10.6) k/uL RBC (4.30-5.90) m/uL Hgb (13.0-17.5) gm/dL Hct (39.0-53.0) % RDW (11.5-15.5) % Plt Count (150-450) k/uL Neutrophils # (1.3-7.7) k/uL Lymphocytes # (1.0-4.8) k/uL ESR (0-15) mm/hr Sodium 131 L (137-145) mmol/L BUN 70 H (9-20) mg/dL Creatinine 2.16 H (0.66-1.25) mg/dL Glucose 183 H (74-99) mg/dL POC Glucose (mg/dL) 201 H 246 H (70-110) mg/dL Calcium 7.8 L (8.4-10.2) mg/dL C-Reactive Protein 19.8 H (<1.0) mg/dL Total Protein (PEP) (6.2-8.2) g/dL Procalcitonin (0.02-0.09) ng/mL 10/23/21 Range/Units 20:34 WBC (3.8-10.6) k/uL RBC (4.30-5.90) m/uL Hgb (13.0-17.5) gm/dL Hct (39.0-53.0) % RDW (11.5-15.5) % Plt Count (150-450) k/uL Neutrophils # (1.3-7.7) k/uL Lymphocytes # (1.0-4.8) k/uL ESR (0-15) mm/hr Sodium (137-145) mmol/L BUN (9-20) mg/dL Creatinine (0.66-1.25) mg/dL Glucose (74-99) mg/dL POC Glucose (mg/dL) 239 H (70-110) mg/dL Calcium (8.4-10.2) mg/dL C-Reactive Protein (<1.0) mg/dL Total Protein (PEP) (6.2-8.2) g/dL Procalcitonin (0.02-0.09) ng/mL Assessment and Plan Plan: Assessment: 1. Acute kidney injury secondary to ATN secondary to hypotension and cardiorenal syndrome. Nonoliguric. Creatinine peaked at 4.12 this admission - 2.16 yesterday. Morning labs pending. 2. Chronic kidney disease stage IIIB secondary to diabetic kidney disease with baseline creatinine in the range of 1.7-2 in August 2021. 3. Acute on chronic systolic CHF with ejection fraction of 20-25%. 4. Diabetes mellitus. 5. Cholangitis. On antibiotics. Surgery and ID following. 6. Hypervolemic hyponatremia. 7. Thrombocytopenia. Hematology following. Plan: Maintain IV Lasix. 1500 mL fluid restriction. Encourage oral intake. Avoid nephrotoxins. Continue to monitor renal function and urine output. Follow-up morning labs.
--- NOTE | 2021-10-24 09:29 | P.PN ---
Subjective Progress Note Date: 10/24/21 Principal diagnosis: DVT. Reevaluated today on 10/20/21, patient remains in the ICU as an overflow. Patient is doing well, no specific complaints, remains on heparin however this is to be transitioned to eliquis. Patient is on 4 L nasal cannula, O2 sats is 95%. Does not seem to be in any distress. His WBC count is 12.9 hemoglobin 12.5. Electrolytes are normal renal profile is about the same BUN is 80 creatinine 3.88 liver enzymes continued to improve Patient is seen today 10/21/2021 on the selective care unit. He sitting up in bed. Awake and alert in no acute distress. Maintaining O2 saturations in the 90s on 2 L/m per nasal cannula. He denies any significant abdominal pain currently. No fever or chills. No worsening shortness of breath cough or congestion. All cultures here reveal no growth. White count 14.1. Hemoglobin 13.7. Platelets 101. Sodium 134. Potassium 3.9. BUN 75. Creatinine 3.11. AST 81. ALT 468. Alk phos 105. He is continued on Unasyn. Anticoagulated with Eliquis. The patient is seen today 10/22/2021 in follow-up on the selective care unit. He is currently sitting up in a chair at the bedside. Awake and alert in no acute distress. He is still weak. He has a poor appetite. He is maintaining O2 saturations in the 90s on 2 L/m per nasal cannula. He's been afebrile. Hemodynamically stable. Blood cultures revealed no growth. Blood glucose 185. He remains on Unasyn. Anticoagulated with Eliquis. IV diuretics per nephrology. Labs pending. The patient is seen today 10/23/2021 in follow-up on the selective care unit. He is currently resting comfortably in bed. Awake and alert in no acute distress. He is feeling a bit stronger today compared to yesterday. O2 saturations in the upper 90s on 2 L/m per nasal cannula. She's afebrile. Hemodynamically stable. Blood cultures reveal no growth. White count 14.5. Hemoglobin 11.8. Platelets 104. Sodium 131. Potassium 3.7. BUN 70. Creatinine 2.16. Glucose 183. C-reactive protein 19.8. He is continued on Unasyn. Anticoagulated with Eliquis. Progress note dated 10/24/2021. The patient is again seen today in room 368. The patient's resting comfortably in bed. He has no complaints. He remains on 2 L nasal cannula, with saturations at 95%. Temperature is normal. Heart rate respiratory rate and blood pressure are all normal. No new laboratory data today. Blood cultures are thus far negative. Objective - Vital Signs Vital signs: Vital Signs Temp 98.6 F 10/24/21 04:00 Pulse 70 10/24/21 04:00 Resp 18 10/24/21 04:00 BP 122/70 10/24/21 04:00 Pulse Ox 95 10/24/21 04:00 FiO2 Intake & Output 10/23/21 10/24/21 10/24/21 18:59 06:59 18:59 Intake Total 480 540 Output Total 1100 973 Balance -620 -433 Weight 105.7 kg Intake: Oral 480 540 Output: Urine 1100 300 Uretheral ([place]) 1100 Post Void Residual 673 Other: Voiding Method Indwelling Catheter Urinal Diaper # Voids 0 - Exam No acute distress, oriented 3. 2 L saturation is 95%. No obvious respiratory distress. HEENT examination is grossly unremarkable. Neck supple. Full range of motion. No adenopathy thyromegaly or neck vein distention. Cardiovascular examination reveals regular rhythm rate. S1-S2 normal. No S3 or S4. No discernible murmur noted. Heart rate 70 bpm. Lungs reveal mostly clear breath sounds. Minimal scattered rhonchi. No w heezes. No crackles. Breath sounds equal bilaterally.. Abdomen soft bowel sounds are heard. No masses or tenderness. Extremities reveal chronic venous stasis. Superficial ulceration the left lower extremity. Skin exam as above. Neurologic examination is brief but nonfocal. - Labs CBC & Chem 7: 10/23/21 08:32 10/23/21 08:42 Labs: Abnormal Lab Results - Last 24 Hours (Table) 10/20/21 10/23/21 10/23/21 Range/Units 07:24 08:32 08:32 WBC 14.5 H (3.8-10.6) k/uL RBC 3.67 L (4.30-5.90) m/uL Hgb 11.8 L (13.0-17.5) gm/dL Hct 36.6 L (39.0-53.0) % RDW 16.3 H (11.5-15.5) % Plt Count 104 L (150-450) k/uL Neutrophils # 12.4 H (1.3-7.7) k/uL Lymphocytes # 0.8 L (1.0-4.8) k/uL ESR 88 H (0-15) mm/hr Sodium (137-145) mmol/L BUN (9-20) mg/dL Creatinine (0.66-1.25) mg/dL Glucose (74-99) mg/dL POC Glucose (mg/dL) (70-110) mg/dL Calcium (8.4-10.2) mg/dL C-Reactive Protein (<1.0) mg/dL Total Protein (PEP) 5.9 L (6.2-8.2) g/dL Procalcitonin 1.25 H (0.02-0.09) ng/mL 10/23/21 10/23/21 10/23/21 Range/Units 08:42 11:45 16:15 WBC (3.8-10.6) k/uL RBC (4.30-5.90) m/uL Hgb (13.0-17.5) gm/dL Hct (39.0-53.0) % RDW (11.5-15.5) % Plt Count (150-450) k/uL Neutrophils # (1.3-7.7) k/uL Lymphocytes # (1.0-4.8) k/uL ESR (0-15) mm/hr Sodium 131 L (137-145) mmol/L BUN 70 H (9-20) mg/dL Creatinine 2.16 H (0.66-1.25) mg/dL Glucose 183 H (74-99) mg/dL POC Glucose (mg/dL) 201 H 246 H (70-110) mg/dL Calcium 7.8 L (8.4-10.2) mg/dL C-Reactive Protein 19.8 H (<1.0) mg/dL Total Protein (PEP) (6.2-8.2) g/dL Procalcitonin (0.02-0.09) ng/mL 10/23/21 Range/Units 20:34 WBC (3.8-10.6) k/uL RBC (4.30-5.90) m/uL Hgb (13.0-17.5) gm/dL Hct (39.0-53.0) % RDW (11.5-15.5) % Plt Count (150-450) k/uL Neutrophils # (1.3-7.7) k/uL Lymphocytes # (1.0-4.8) k/uL ESR (0-15) mm/hr Sodium (137-145) mmol/L BUN (9-20) mg/dL Creatinine (0.66-1.25) mg/dL Glucose (74-99) mg/dL POC Glucose (mg/dL) 239 H (70-110) mg/dL Calcium (8.4-10.2) mg/dL C-Reactive Protein (<1.0) mg/dL Total Protein (PEP) (6.2-8.2) g/dL Procalcitonin (0.02-0.09) ng/mL Assessment and Plan Assessment: Acute DVT, left lower extremity. Possible cholangitis with sepsis. Currently on Unasyn for suspected bacteremia, blood cultures negative.. Acute hepatitis. Acute kidney injury. CAD, with ischemic cardiomyopathy. Type 2 diabetes. Hyperlipidemia. Benign essential hypertension. Anion gap metabolic acidosis, resolved. Plan: Plan dated 10/24/2021. The patient is seen and examined. Labs, x-rays, and medications are reviewed. The patient remains on Unasyn for infection. The patient appears to be doing relatively well. He is much more awake and alert. We will continue to follow only as needed. Please call us back into the case should he develop an acute respiratory issues, or some other critical care issues. Time with Patient: Less than 30
[2021-10-24] MEDS: FUROSEMIDE 10 MG/ML 4 ML VIAL IV SCH (10:09)
[2021-10-24] MEDS: AMPICILLIN-SULBACTAM 3 GM in SODIUM CHLORIDE 0.9% 100 ML IVPB SCH ×2 (10:09→17:25)
[2021-10-24] MEDS: ASPIRIN 81 MG PO SCH (10:10)
[2021-10-24] MEDS: APIXABAN 5 MG TAB PO SCH ×2 (10:10→21:01)
[2021-10-24] MEDS: METOPROLOL SUCCINATE (ER) 50 MG TAB.ER.24H PO SCH ×2 (10:12→21:01)
[2021-10-24 10:29] LABS: Magnesium 2.1 mg/dL (1.6-2.3); Potassium 3.9 mmol/L (3.5-5.1); Total Protein 6.2 g/dL (6.3-8.2)
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
[2021-10-24 12:02] LABS: Free Kappa Lt Chain Qnt, Serum 5.53 mg/dL (0.33-1.94); Free Lambda Lt Chain Qnt, Seru 5.81 mg/dL (0.57-2.63)
[2021-10-24 12:03] LABS: Glucose,Whole Blood 146 mg/dL (70-110)
--- NOTE | 2021-10-24 13:09 | P.PN ---
Subjective Progress Note Date: 10/24/21 CHIEF COMPLAINT: Left leg DVT HISTORY OF PRESENT ILLNESS: Surgical service following in regards to patient's gallstones. He denies any abdominal pain. Denies any nausea or vomiting. He is tolerating regular diet. Patient is lying in bed. He is complaining of joint pain mostly in his hands and legs. Afebrile sodium 133 creatinine 2.01. Patient evaluated by wound care service for his left leg wound Patient seen and examined with Dr. coombs PHYSICAL EXAM: VITAL SIGNS: Reviewed. GENERAL: Well-developed in no acute distress. HEENT: No sclera icterus. Extraocular movements grossly intact. Moist buccal mucosa. Head is atraumatic, normocephalic. ABDOMEN: Soft. Nondistended. Nontender. NEUROLOGIC: Alert and oriented. Cranial nerves II through XII grossly intact. Extremities: Left lower extremity with multiple wounds and drainage ASSESSMENT: 1. Cholelithiasis. No abdominal pain. No significant sign of cholecystitis. 2. Choledocholithiasis 3. Abdominal pain due to Cholangitis. Improved 4. Left leg DVT 5. 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 Signing provider agrees with the documented findings, assessment, and plan of care. Objective - Vital Signs Vital signs: Vital Signs Temp 98.2 F 10/24/21 10:04 Pulse 80 10/24/21 10:04 Resp 18 10/24/21 10:04 BP 130/75 10/24/21 10:04 Pulse Ox 99 10/24/21 10:04 FiO2 Intake & Output 10/23/21 10/24/21 10/24/21 18:59 06:59 18:59 Intake Total 480 540 120 Output Total 1100 973 Balance -620 -433 120 Weight 105.7 kg Intake: Oral 480 540 120 Output: Urine 1100 300 Uretheral ([place]iver[place]) 1100 Post Void Residual 673 Other: Voiding Method Indwelling Catheter Urinal Diaper # Voids 0 - Labs CBC & Chem 7: 10/23/21 08:32 10/24/21 09:02 Labs: Abnormal Lab Results - Last 24 Hours (Table) 10/20/21 10/23/21 10/23/21 Range/Units 07:24 08:32 08:32 ESR 88 H (0-15) mm/hr Sodium (137-145) mmol/L Chloride (98-107) mmol/L BUN (9-20) mg/dL Creatinine (0.66-1.25) mg/dL POC Glucose (mg/dL) (70-110) mg/dL Calcium (8.4-10.2) mg/dL ALT (4-49) U/L Total Protein (6.3-8.2) g/dL Total Protein (PEP) 5.9 L (6.2-8.2) g/dL Albumin (3.5-5.0) g/dL Procalcitonin 1.25 H (0.02-0.09) ng/mL Free [place] LC, Quant 5.53 H (0.33-1.94) mg/dL Free [place] LC, Quant 5.81 H (0.57-2.63) mg/dL 10/23/21 10/23/21 10/24/21 Range/Units 16:15 20:34 09:02 ESR (0-15) mm/hr Sodium 133 L (137-145) mmol/L Chloride 95 L (98-107) mmol/L BUN 69 H (9-20) mg/dL Creatinine 2.01 H (0.66-1.25) mg/dL POC Glucose (mg/dL) 246 H 239 H (70-110) mg/dL Calcium 8.0 L (8.4-10.2) mg/dL ALT 137 H (4-49) U/L Total Protein 6.2 L (6.3-8.2) g/dL Total Protein (PEP) (6.2-8.2) g/dL Albumin 3.0 L (3.5-5.0) g/dL Procalcitonin (0.02-0.09) ng/mL Free [place] LC, Quant (0.33-1.94) mg/dL Free Lambda LC, Quant (0.57-2.63) mg/dL 10/24/21 Range/Units 11:58 ESR (0-15) mm/hr Sodium (137-145) mmol/L Chloride (98-107) mmol/L BUN (9-20) mg/dL Creatinine (0.66-1.25) mg/dL POC Glucose (mg/dL) 146 H (70-110) mg/dL Calcium (8.4-10.2) mg/dL ALT (4-49) U/L Total Protein (6.3-8.2) g/dL Total Protein (PEP) (6.2-8.2) g/dL Albumin (3.5-5.0) g/dL Procalcitonin (0.02-0.09) ng/mL Free [place] LC, Quant (0.33-1.94) mg/dL Free [place]ambda LC, Quant (0.57-2.63) mg/dL Microbiology - Last 24 Hours (Table) 10/23/21 08:46 Blood Culture - Preliminary Blood No Growth after 24 hours
--- NOTE | 2021-10-24 13:22 | P.PN ---
Subjective Progress Note Date: 10/24/21 HISTORY OF PRESENT ILLNESS: This is a 66 year old male with history of CAD with previous stenting and cardiomyopathy with an ejection fraction of 20-25%. He is a patient of Dr. Miranda. He has refused AICD implantation in the past and continues to do so. Patient examined this morning. Patient denies any chest pain or pressure. He denies shortness of breath. He reports feeling overall weak and fatigued. The patient has been having some runs of nonsustained ventricular tachycardia. Patient's beta tonya was increased yesterday. 10/24/2021 Patient examined this morning at the bedside. Patient denies chest pain or pressure. He denies shortness of breath. He remains on IV Lasix per nephrology for lower extremity edema. Patients blood pressure 130/75. Heart rate in the 80s. He continues to have short runs of nonsustained ventricular tachycardia which has improved over the past two days. PHYSICAL EXAM: VITAL SIGNS: Reviewed. GENERAL: Well-developed in no acute distress. NECK: Supple. No JVD or thyromegaly LUNGS: Respirations even and unlabored. Lungs essentially clear to auscultation bilaterally. HEART: Regular rate and rhythm. S1 and S2 heard. EXTREMITIES: Normal range of motion. No clubbing or cyanosis. Peripheral pulses intact. 2+ bilateral lower extremity edema, left worse than right. ASSESSMENT: Sepsis Cholangitis Acute left lower extremity DVT Nonsustained ventricular tachycardia Bacteremia, at outside facility, blood cultures here negative Transaminitis Acute kidney injury Coronary artery disease with previous stenting Ischemic cardiomyopathy PLAN: Continue current cardiac medications Continue metoprolol. Increase dosage to 50mg BID. Not a candidate for amio due to elevated LFTs Resume statin when LFTs normalize Continue to monitor electrolytes and supplement as appropriate Diuretic management per nephrology Further recommendations pending patient course Nurse practitioner note has been reviewed by physician. Signing provider agrees with the documented findings, assessment, and plan of care. Objective - Vital Signs Vital signs: Vital Signs Temp 98.2 F 10/24/21 10:04 Pulse 80 10/24/21 10:04 Resp 18 10/24/21 10:04 BP 130/75 10/24/21 10:04 Pulse Ox 99 10/24/21 10:04 FiO2 Intake & Output 10/23/21 10/24/21 10/24/21 18:59 06:59 18:59 Intake Total 480 540 120 Output Total 1100 973 Balance -620 -433 120 Weight 105.7 kg Intake: Oral 480 540 120 Output: Urine 1100 300 Uretheral ([place]) 1100 Post Void Residual 673 Other: Voiding Method Indwelling Catheter Urinal Diaper # Voids 0 - Labs CBC & Chem 7: 10/23/21 08:32 10/24/21 09:02 Labs: Abnormal Lab Results - Last 24 Hours (Table) 10/20/21 10/23/21 10/23/21 Range/Units 07:24 08:32 16:15 Sodium (137-145) mmol/L Chloride (98-107) mmol/L BUN (9-20) mg/dL Creatinine (0.66-1.25) mg/dL POC Glucose (mg/dL) 246 H (70-110) mg/dL Calcium (8.4-10.2) mg/dL ALT (4-49) U/L Total Protein (6.3-8.2) g/dL Total Protein (PEP) 5.9 L (6.2-8.2) g/dL Albumin (3.5-5.0) g/dL Procalcitonin 1.25 H (0.02-0.09) ng/mL Free [place] LC, Quant 5.53 H (0.33-1.94) mg/dL Free Lambda LC, Quant 5.81 H (0.57-2.63) mg/dL 10/23/21 10/24/21 10/24/21 Range/Units 20:34 09:02 11:58 Sodium 133 L (137-145) mmol/L Chloride 95 L (98-107) mmol/L BUN 69 H (9-20) mg/dL Creatinine 2.01 H (0.66-1.25) mg/dL POC Glucose (mg/dL) 239 H 146 H (70-110) mg/dL Calcium 8.0 L (8.4-10.2) mg/dL ALT 137 H (4-49) U/L Total Protein 6.2 L (6.3-8.2) g/dL Total Protein (PEP) (6.2-8.2) g/dL Albumin 3.0 L (3.5-5.0) g/dL Procalcitonin (0.02-0.09) ng/mL Free [place] LC, Quant (0.33-1.94) mg/dL Free [place] LC, Quant (0.57-2.63) mg/dL Microbiology - Last 24 Hours (Table) 10/23/21 08:46 Blood Culture - Preliminary Blood No Growth after 24 hours
[2021-10-24 13:33] LABS: Albumin 2.87 g/dL (3.80-4.90); Gamma Globulin 0.97 g/dL (0.70-1.50)
[2021-10-24] MEDS: HYDROPHILIC CREAM 180 GM TUBE TOPICAL SCH (13:41)
--- NOTE | 2021-10-24 13:56 | P.PN ---
Progress Note - Text Progress Note Date: 10/24/21 Chief Complaint: Left leg pain This is a pleasant 66-year-old patient, follows with Dr. Mike Escobar. Chronic stable medical conditions include CAD with stent, diabetes, hypertension, hyperlipidemia anxiety. Yesterday patient was walking about in [facility] when he started feeling unwell. Decided to leave the store and came to the parking lot. Sat down there. Decided to drive home. Patient has several bouts of nausea and vomiting. [place] of the ER. He was then discharged last night. Denied any fever and chills. Had some abdominal pain. Settle down. He did gets IV fluids at the other hospital. Patient very early this morning started having pain from mid thigh down the leg. Rather significant. No injury. Patient had some sweating for some time. In the ER was found to have a common femoral relevant DVT. Also had arterial Doppler done which was reviewed by Dr. Mike found to be normal. No arterial compromise. Denies any nausea vomiting abdominal pain today. Patient noted to have increased LFTs compared to the was done at [facility]. Admitted with: Acute DVT of the left common femoral vein, choledocholithiasis asymptomatic, acute ischemic hepatitis, acute kidney injury, metabolic acidosis, positive blood cultures from the outside hospital. Patient started IV heparin, sodium bicarbonate drip, IV cefepime and IV daptomycin,. Acute arterial compromise was ruled out by arterial Doppler by Dr. Mike. Hyperkalemia treated. October 17: Because of multiple issues patient smoked in the ICU yesterday evening. Today patient on 5 L of nasal cannula. Decreased urine output. Bicarbonate drip. IV heparin. Doppler ultrasound showing distal pulses. October 18: ICU: Was up in a chair today. IV heparin. IV bicarbonate drip. 4 L nasal cannula. Had blisters on lower extremity. They will popped by vascular. October 19: ICU: Reclining in bed. IV heparin. After bicarbonate drip. KAYDEN stockings. 4 L nasal cannula. Did eat some food. October 20: ICU: Breathing better. On 3 L of nasal cannula. IV heparin stopped. Eliquis started. KAYDEN stockings. Leg pain better.. October 21: Moved to the medical floor. On 2 L nasal cannula. Not hungry. Blood cultures from [place] showed Streptococcus. Penicillin sensitive. IV daptomycin discontinued. October 22: Oral intake better. On 2 L nasal cannula. On IV Unasyn. Noticed to have some areas of localized redness raised fingers knee etc. Has remained afebrile. October 23: Oral intake better. On 2 L nasal cannula. Will check pulse ox on room air. On IV Unasyn. Requiring assist to stand. Looking at inpatient rehab. October 24: Patient's front of inflammatory arthritis. Has been on IV Unasyn. Ice pack to hand. Eating about 50%. Discussed with nephrology. Will changed to Demadex. Per ID private branch exchange service adviser to Augmentin. Plan to discharge to rehab tomorrow. Active Medications Acetaminophen (Acetaminophen Tab 325 Mg Tab) 325 mg PO Q6H PRN PRN Reason: Pain or Fever > 100.5 Last Admin: 10/22/21 21:41 Dose: 325 mg Alprazolam (Alprazolam 0.25 Mg Tab) 0.25 mg PO BID PRN PRN Reason: Anxiety Last Admin: 10/23/21 22:55 Dose: 0.25 mg Amoxicillin/Clavulanate Potassium (Amoxic-Pot Clav 875-125mg 1 Each Tab) 1 each PO Q12HR [facility]; Protocol Apixaban (Apixaban 5 Mg Tab) 10 mg PO BID [facility]; Protocol Stop: 10/26/21 21:01 Last Admin: 10/24/21 10:10 Dose: 10 mg Aspirin (Aspirin 81 Mg) 81 mg PO DAILY [facility] Last Admin: 10/24/21 10:10 Dose: 81 mg Fluoxetine HCl (Fluoxetine Hcl 20 Mg Cap) 20 mg PO HS [facility] Last Admin: 10/23/21 19:48 Dose: 20 mg Hydromorphone HCl (Hydromorphone 0.5 Mg/0.5 Ml Syringe) 0.5 mg IVP Q3HR PRN PRN Reason: Moderate Pain Last Admin: 10/24/21 13:31 Dose: 0.5 mg Ampicillin Sodium/Sulbactam (Sodium 3 gm/ Sodium Chloride) 100 mls @ 200 mls/hr IVPB Q8HR [facility]; Protocol Stop: 10/24/21 23:59 Last Admin: 10/24/21 10:09 Dose: 200 mls/hr Insulin Aspart (Insulin Aspart (Novolog) 100 Unit/Ml Vial) 0 unit SQ AC-TID [facility]; Protocol Last Admin: 10/24/21 13:41 Dose: 1 unit Insulin Detemir (Insulin Detemir (Levemir) 100 Unit/Ml Syr) 20 unit SQ HS [facility] Last Admin: 10/23/21 19:48 Dose: 20 unit Metoprolol Succinate (Metoprolol Succinate (Er) 50 Mg Tab.Er.24h) 50 mg PO BID [facility] Multi-Ingred Cream/Lotion/Oil/Oint (Hydrophilic Cream 180 Gm Tube) 1 applic TOPICAL DAILY [facility]; Protocol Last Admin: 10/24/21 13:41 Dose: 1 applic Naloxone HCl (Naloxone 0.4 Mg/Ml 1 Ml Vial) 0.2 mg IV Q2M PRN PRN Reason: Opioid Reversal Nitroglycerin (Nitroglycerin Sl Tabs 0.4 Mg Tab) 0.4 mg SUBLINGUAL Q5M PRN PRN Reason: Chest Pain Ondansetron HCl (Ondansetron 4 Mg/2 Ml Vial) 4 mg IVP Q8HR PRN PRN Reason: Nausea And Vomiting Tamsulosin HCl (Tamsulosin 0.4 Mg Cap.Er.24h) 0.4 mg PO PC-SUPPER [facility] Last Admin: 10/23/21 18:35 Dose: 0.4 mg Torsemide (Torsemide 20 Mg Tab) 40 mg PO DAILY [facility] Past medical history to include: CAD with stent, diabetes, hypertension, hyperlipidemia, skin cancer on the nose in August 2020, anxiety 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 Nonsmoker. Alcohol rarely. Family history: Diabetes, CAD Physical examination: VITAL SIGNS: 98.2, 80, 18, 1:30/75, 99% on 2 L GENERAL: reclining in bed, awake EYES: Pupils equal. Conjunctiva normal. HEENT: External appearance of nose and ears normal, oral cavity grossly normal. NECK: JVD not raised; masses not palpable. HEART: First and second heart sounds are normal; some edema. LUNGS: Respiratory rate increased; decreased breath sound . ABDOMEN: Soft, nontender, liver spleen not palpable, no masses palpable. PSYCH: [Alert and oriented x3; mood and affect slightly anxious MUSCULOSKELETAL:No Clubbing/cyanosis;muscles-grossly intact DERMATOLOGICAL: Some scattered areas of localized redness raised in the center including the right knee, finger EXTREMITIES: [ Shiny skin lower extremity.necrobiosis lipoidica. Edema decreased. ischemic and fungal nails. Some tenderness.] KAYDEN stockings INVESTIGATIONS, reviewed in the clinical context: October 24: Sodium 133 potassium 3.9 creatinine 2.01 October 23: WBC 14.5 hemoglobin 11.8 platelets 104 potassium 3.7 BUN 70 creatinine 2.16 CRP 19.8 procalcitonin 1.25 October 22: WBC 12.5 hemoglobin 12.6 platelets 88 potassium 3.9 creatinine 2.58 BUN 72 October 21: WBC 14.1 hemoglobin 12.7 potassium 3.9 creatinine 3.11 Blood culture from [facility]: Streptococcus October 20: W 12.9 hemoglobin 12.5 platelets 93 potassium 3.9 BUN 80 creatinine 3.88 AST 178 ALT 697 albumin 2.9 October 19: WBC 12.9 hemoglobin 11.9 platelets 104 potassium 3.8. 83 creatinine 3.9 [birth year]/1971 ALT 946 albumin 2.6 2-D echocardiogram: EF 20-25%. October 18: White count 16 hemoglobin 12 platelets 149 sodium 135 potassium 4.4 creatinine 4.12 AST 749 ALT 1351 October 17: White count 20.1 hemoglobin 1.4 platelets 154 INR 2.4 sodium 132 potassium 6 BUN 57 creatinine 3.47 lactic acidosis 3.5 AST 08/06/2008 ALT 2181 White count 31.4 hemoglobin 15.4 platelets 267 sodium 139 potassium 6.2 bicarbonate 12 BUN 41 creatinine 2.81 lactic acid 11.6 AST 494 ALT 240 troponin I 0.640, 2.4 EKG tracing personally reviewed by me-intraventricular block. Sinus rhythm. First-degree AV block. Left lower extremity venous Doppler: DVT in the common femoral vein. Chest x-ray film personally reviewed by me-cardiomegaly. Lungs clear Gallbladder ultrasound: Gallbladder filled with stones. Possible hepatic steatosis. Arterial Doppler results discussed with Dr. Mike: No evidence of vascular compromise Assessment and plan: -Acute DVT of the left common femoral vein, likely precipitated from acute gastroenteritis and decreased activity. eliquis . KAYDEN stockings. -Acute hypoxic respiratory failure, likely from CHF: Much improved On 2 L nasal cannula -Possible cholangitis per ID with blood cultures positive for Streptococcus. On IV Unasyn. Changed to oral Augmentin from tomorrow. -Ischemic cardiomyopathy, EF 20-25% -Sepsis with Streptococcus blood cultures [ from [facility]]. Blood cultures from October 16 negative IV Unasyn, changed to oral Augmentin from tomorrow -Choledocholithiasis. -Episode of acute food poisoning day prior to admission Self-limited. -Acute hepatitis. Likely ischemic.: Much improved Follow-up with GI -Troponinemia, likely from hemodynamic mismatch. Setting of acute kidney injury. No chest pain. IV heparin -CAD with a history of stent Aspirin 81 mg daily -Diabetes mellitus type 2, chronically on insulin Follow Accu-Cheks and sliding scale insulin. Increase Levemir 20 units at night -Hyperlipidemia Given the elevated LFTs hold Zocor. -Essential hypertension Continue to hold Norvasc -Lower extremity edema possibly from Norvasc and DVT KAYDEN stockings, bilateral -Acute kidney injury, ATN from sepsis and prerenal from nausea vomiting: Slow to respond Patient's creatinine was 1.7 on August 25. 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 Creatinine 1.7 in August 2021 -Hyperkalemia from metabolic acidosis: corrected Renal diet. Lokelma. Sodium bicarbonate drip. 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 -Acute medical debility. PTOT. -Full code Eliquis . IV Unasyn private branch exchange service adviser to Augmentin from tomorrow. . Patient oxygen can be discontinued. Change IV Lasix to Demadex 20 mg from tomorrow. Discussed with nephrology. Discussed with continuous pillowcase cutter. Hopefully discharge tomorrow. I spent today about 40 minutes with over 25 minutes of discussion. Also discussed with the nurse. And the patient. Ice pack for hand
[2021-10-24 16:41] LABS: Glucose,Whole Blood 176 mg/dL (70-110)
[2021-10-24] MEDS: TAMSULOSIN 0.4 MG CAP.ER.24H PO SCH (17:24)
[2021-10-24 20:26] LABS: Glucose,Whole Blood 187 mg/dL (70-110)
[2021-10-24] MEDS: INSULIN DETEMIR (LEVEMIR) 100 UNIT/ML SYR SQ SCH (21:01)
[2021-10-24] MEDS: FLUoxetine HCL 20 MG CAP PO SCH (21:01)
[2021-10-25] MEDS: HYDROmorphone 0.5 MG/0.5 ML SYRINGE IVP PRN ×4 (02:12→20:32)
[2021-10-25 06:16] LABS: Glucose,Whole Blood 108 mg/dL (70-110)
[2021-10-25] MEDS: INSULIN ASPART (NovoLOG) 100 UNIT/ML VIAL SQ SCH ×4 (06:30→18:20)
--- NOTE | 2021-10-25 06:50 | P.PN ---
Subjective Progress Note Date: 10/24/21 Principal diagnosis: Abdominal sepsis and bacteremia Patient is a 66 year male presenting to the hospital with acute nausea vomiting and abdominal pain patient did have evidence of gallstones and elevated liver enzymes did have a positive blood culture at the outside facility and subsequently transferred to [facility] for further management. On today's evaluation that is 10/24/2021, the patient denies any fever or chills, the patient denies nausea or vomiting and no abdominal pain , the patient denies chest pain shortness of breath or cough and no diarrhea, patient has painful petechial rash to the right fifth finger area however seem to have slightly decreased in intensity Objective - Vital Signs Vital signs: Vital Signs Temp 98.2 F 10/24/21 10:04 Pulse 80 10/24/21 10:04 Resp 18 10/24/21 10:04 BP 130/75 10/24/21 10:04 Pulse Ox 99 10/24/21 10:04 FiO2 Intake & Output 10/23/21 10/24/21 10/24/21 18:59 06:59 18:59 Intake Total 480 540 Output Total 1100 973 Balance -620 -433 Weight 105.7 kg Intake: Oral 480 540 Output: Urine 1100 300 Uretheral ([place]) 1100 Post Void Residual 673 Other: Voiding Method Indwelling Catheter Urinal Diaper # Voids 0 - Exam GENERAL DESCRIPTION: An elderly male lying in bed in no distress RESPIRATORY SYSTEM: Unlabored breathing , decreased breath sounds at bases HEART: S1 S2 regular rate and rhythm , ABDOMEN: Soft , no tenderness EXTREMITIES: No edema feet - Labs CBC & Chem 7: 10/23/21 08:32 10/24/21 09:02 Labs: Abnormal Lab Results - Last 24 Hours (Table) 10/20/21 10/23/21 10/23/21 Range/Units 07:24 08:32 08:32 ESR 88 H (0-15) mm/hr Sodium (137-145) mmol/L BUN (9-20) mg/dL Creatinine (0.66-1.25) mg/dL Glucose (74-99) mg/dL POC Glucose (mg/dL) (70-110) mg/dL Calcium (8.4-10.2) mg/dL C-Reactive Protein (<1.0) mg/dL Total Protein (PEP) 5.9 L (6.2-8.2) g/dL Procalcitonin 1.25 H (0.02-0.09) ng/mL 10/23/21 10/23/21 10/23/21 Range/Units 08:42 11:45 16:15 ESR (0-15) mm/hr Sodium 131 L (137-145) mmol/L BUN 70 H (9-20) mg/dL Creatinine 2.16 H (0.66-1.25) mg/dL Glucose 183 H (74-99) mg/dL POC Glucose (mg/dL) 201 H 246 H (70-110) mg/dL Calcium 7.8 L (8.4-10.2) mg/dL C-Reactive Protein 19.8 H (<1.0) mg/dL Total Protein (PEP) (6.2-8.2) g/dL Procalcitonin (0.02-0.09) ng/mL 10/23/21 Range/Units 20:34 ESR (0-15) mm/hr Sodium (137-145) mmol/L BUN (9-20) mg/dL Creatinine (0.66-1.25) mg/dL Glucose (74-99) mg/dL POC Glucose (mg/dL) 239 H (70-110) mg/dL Calcium (8.4-10.2) mg/dL C-Reactive Protein (<1.0) mg/dL Total Protein (PEP) (6.2-8.2) g/dL Procalcitonin (0.02-0.09) ng/mL Assessment and Plan (1) Cholelithiasis Current Visit: Yes Status: Acute Code(s): K80.20 - CALCULUS OF GALLBLADDER W/O CHOLECYSTITIS W/O OBSTRUCTION SNOMED Code(s): 908161093 Plan: 1patient presented to hospital with sepsis in this patient have elevated white count elevated lactic acid presenting with nausea and vomiting with evidence of gallstones did have elevated liver enzymes and high clinic suspicious for acute cholecystitis and cholangitis and this patient did have a gram-positive bacteremia with strep more likely source is cholangitis. Final follow-up Roshni did came with Streptococcus which is a penicillin sensitive pathogen, the patient repeat culture negative 2 patient is afebrile and is slowly clinically improving with Unasyn which will be continued and plan to finish therapy with oral Augmentin 10 days on discharge Time with Patient: Less than 30
[2021-10-25 09:24] LABS: Anisocytosis Slight; Basophils # (A) 0.1 k/uL (0-0.2); Basophils % (A) 0 %; Eosinophils # (A) 0.1 k/uL (0-0.7); Eosinophils % (A) 1 %; HCT 40.1 % (39.0-53.0); HGB 12.7 gm/dL (13.0-17.5); Hypochromasia Moderate; Lymphocytes % (A) 5 %; MCH 31.8 pg (25.0-35.0); MCHC 31.7 g/dL (31.0-37.0); MCV 100.5 fL (80.0-100.0); Macrocytosis Slight; Mean Platelet Volume 9.3; Monocytes % (A) 5 %; Neutrophils # (A) 17.2 k/uL (1.3-7.7); Neutrophils % (A) 88 %; RBC 3.99 m/uL (4.30-5.90); RDW 16.4 % (11.5-15.5); WBC 19.6 k/uL (3.8-10.6)
--- NOTE | 2021-10-25 09:26 | P.PN ---
Subjective Patient is seen in follow-up for acute kidney injury on chronic kidney disease. Oral intake fair. Denies chest pain or shortness of breath. Hemodynamically stable. On IV Lasix. No changes overnight. Vital signs are stable. General: Awake. No acute distress. HEENT: Head exam is unremarkable. LUNGS: Breath sounds decreased. HEART: Rate and Rhythm are regular. ABDOMEN: Soft, no distention. EXTREMITITES: 1+ edema. Left lower extremity wrapped. Objective - Vital Signs Vital signs: Vital Signs Temp 98.1 F 10/25/21 04:00 Pulse 80 10/25/21 04:00 Resp 16 10/25/21 04:00 BP 156/75 10/25/21 04:00 Pulse Ox 95 10/25/21 04:00 FiO2 21 10/24/21 19:44 Intake & Output 10/24/21 10/25/21 10/25/21 18:59 06:59 18:59 Intake Total 980 Output Total 500 Balance 980 -500 Intake: IV 20 Invasive Line 4 20 Oral 960 Output: Urine 500 Other: Voiding Method Diaper Diaper # Voids 1 # Bowel Movements 1 - Labs CBC & Chem 7: 10/23/21 08:32 10/24/21 09:02 Labs: Abnormal Lab Results - Last 24 Hours (Table) 10/20/21 10/24/21 10/24/21 Range/Units 07:24 09:02 11:58 Sodium 133 L (137-145) mmol/L Chloride 95 L (98-107) mmol/L BUN 69 H (9-20) mg/dL Creatinine 2.01 H (0.66-1.25) mg/dL POC Glucose (mg/dL) 146 H (70-110) mg/dL Calcium 8.0 L (8.4-10.2) mg/dL ALT 137 H (4-49) U/L Total Protein 6.2 L (6.3-8.2) g/dL Albumin 3.0 L (3.5-5.0) g/dL Albumin (PEP) 2.87 L (3.80-4.90) g/dL Hvack-3-Mporcxpux 0.65 H (0.10-0.40) g/dL Free [place] LC, Quant 5.53 H (0.33-1.94) mg/dL Free Lambda LC, Quant 5.81 H (0.57-2.63) mg/dL 10/24/21 10/24/21 Range/Units 16:40 20:20 Sodium (137-145) mmol/L Chloride (98-107) mmol/L BUN (9-20) mg/dL Creatinine (0.66-1.25) mg/dL POC Glucose (mg/dL) 176 H 187 H (70-110) mg/dL Calcium (8.4-10.2) mg/dL ALT (4-49) U/L Total Protein (6.3-8.2) g/dL Albumin (3.5-5.0) g/dL Albumin (PEP) (3.80-4.90) g/dL Illyj-6-Oashjmeaj (0.10-0.40) g/dL Free [place] LC, Quant (0.33-1.94) mg/dL Free Lambda LC, Quant (0.57-2.63) mg/dL Microbiology - Last 24 Hours (Table) 10/23/21 08:46 Blood Culture - Preliminary Blood No Growth after 24 hours Assessment and Plan Plan: Assessment: 1. Acute kidney injury secondary to ATN secondary to hypotension and cardiorenal syndrome. Nonoliguric. Creatinine peaked at 4.12 this admission - 2.01 yesterday. Morning labs pending. 2. Chronic kidney disease stage IIIB secondary to diabetic kidney disease with baseline creatinine in the range of 1.7-2 in August 2021. 3. Acute on chronic systolic CHF with ejection fraction of 20-25%. 4. Diabetes mellitus. 5. Cholangitis. On antibiotics. Surgery and ID following. 6. Hypervolemic hyponatremia. Improved. 7. Thrombocytopenia. Hematology following. Plan: Stop IV Lasix. Add oral Demadex 40 mg once daily. 1500 mL fluid restriction. Encourage oral intake. Avoid nephrotoxins. Continue to monitor renal function and urine output. Follow-up morning labs. Repeat BMP and magnesium level 2-3 days postdischarge. Follow up outpatient in 1 week.
[2021-10-25 09:33] LABS: Platelet Count 241 k/uL (150-450)
[2021-10-25 09:48] LABS: Calcium 7.9 mg/dL (8.4-10.2); Magnesium 2.1 mg/dL (1.6-2.3); Potassium 3.8 mmol/L (3.5-5.1)
[2021-10-25] MEDS: TORSEMIDE 20 MG TAB PO SCH (09:56)
[2021-10-25] MEDS: AMOXIC-POT CLAV 875-125MG 1 EACH TAB PO SCH ×2 (09:56→20:33)
[2021-10-25] MEDS: ASPIRIN 81 MG PO SCH (09:56)
[2021-10-25] MEDS: APIXABAN 5 MG TAB PO SCH ×2 (09:56→20:30)
[2021-10-25] MEDS: METOPROLOL SUCCINATE (ER) 50 MG TAB.ER.24H PO SCH ×2 (09:56→20:33)
[2021-10-25] MEDS: HYDROPHILIC CREAM 180 GM TUBE TOPICAL SCH (10:10)
--- NOTE | 2021-10-25 11:29 | P.PN ---
Subjective Progress Note Date: 10/25/21 HISTORY OF PRESENT ILLNESS: This is a 66 year old male with history of CAD with previous stenting and cardiomyopathy with an ejection fraction of 20-25%. He is a patient of Dr. Miranda. He has refused AICD implantation in the past and continues to do so. Patient examined this morning. Patient denies any chest pain or pressure. He denies shortness of breath. He reports feeling overall weak and fatigued. The patient has been having some runs of nonsustained ventricular tachycardia. Patient's beta tonya was increased yesterday. 10/24/2021 Patient examined this morning at the bedside. Patient denies chest pain or pressure. He denies shortness of breath. He remains on IV Lasix per nephrology for lower extremity edema. Patients blood pressure 130/75. Heart rate in the 80s. He continues to have short runs of nonsustained ventricular tachycardia which has improved over the past two days. 10/25/2021 Patient examined this morning at the bedside. Patient denies chest pain or pressure. He denies shortness of breath. His lower extremity edema has improved. He has been transitioned to Demadex 40 mg orally daily. Vital signs are stable. PHYSICAL EXAM: VITAL SIGNS: Reviewed. GENERAL: Well-developed in no acute distress. NECK: Supple. No JVD or thyromegaly LUNGS: Respirations even and unlabored. Lungs essentially clear to auscultation bilaterally. HEART: Regular rate and rhythm. S1 and S2 heard. EXTREMITIES: Normal range of motion. No clubbing or cyanosis. Peripheral pulses intact. 2+ bilateral lower extremity edema, left worse than right. ASSESSMENT: Sepsis Cholangitis Acute left lower extremity DVT Nonsustained ventricular tachycardia Bacteremia, at outside facility, blood cultures here negative Transaminitis Acute kidney injury Coronary artery disease with previous stenting Ischemic cardiomyopathy PLAN: Continue current cardiac medications Resume statin when LFTs normalize Diuretic management per nephrology Patient is currently stable from a cardiac standpoint We will sign off. Please reconsult if needed. Nurse practitioner note has been reviewed by physician. Signing provider agrees with the documented findings, assessment, and plan of care. Objective - Vital Signs Vital signs: Vital Signs Temp 98.1 F 10/25/21 04:00 Pulse 80 10/25/21 04:00 Resp 16 10/25/21 04:00 BP 156/75 10/25/21 04:00 Pulse Ox 95 10/25/21 04:00 FiO2 21 10/24/21 19:44 Intake & Output 10/24/21 10/25/21 10/25/21 18:59 06:59 18:59 Intake Total 980 240 Output Total 500 Balance 980 -500 240 Intake: IV 20 Invasive Line 4 20 Oral 960 240 Output: Urine 500 Other: Voiding Method Diaper Diaper # Voids 1 # Bowel Movements 1 - Labs CBC & Chem 7: 10/25/21 08:36 10/25/21 08:36 Labs: Abnormal Lab Results - Last 24 Hours (Table) 10/20/21 10/24/21 10/24/21 Range/Units 07:24 11:58 16:40 WBC (3.8-10.6) k/uL RBC (4.30-5.90) m/uL Hgb (13.0-17.5) gm/dL MCV (80.0-100.0) fL RDW (11.5-15.5) % Neutrophils # (1.3-7.7) k/uL Sodium (137-145) mmol/L Chloride (98-107) mmol/L BUN (9-20) mg/dL Creatinine (0.66-1.25) mg/dL Glucose (74-99) mg/dL POC Glucose (mg/dL) 146 H 176 H (70-110) mg/dL Calcium (8.4-10.2) mg/dL Albumin (PEP) 2.87 L (3.80-4.90) g/dL Evvau-5-Qlcaezuig 0.65 H (0.10-0.40) g/dL Free [place] LC, Quant 5.53 H (0.33-1.94) mg/dL Free Lambda LC, Quant 5.81 H (0.57-2.63) mg/dL 10/24/21 10/25/21 10/25/21 Range/Units 20:20 08:36 08:36 WBC 19.6 H (3.8-10.6) k/uL RBC 3.99 L (4.30-5.90) m/uL Hgb 12.7 L (13.0-17.5) gm/dL MCV 100.5 H (80.0-100.0) fL RDW 16.4 H (11.5-15.5) % Neutrophils # 17.2 H (1.3-7.7) k/uL Sodium 134 L (137-145) mmol/L Chloride 94 L (98-107) mmol/L BUN 70 H (9-20) mg/dL Creatinine 2.04 H (0.66-1.25) mg/dL Glucose 61 L (74-99) mg/dL POC Glucose (mg/dL) 187 H (70-110) mg/dL Calcium 7.9 L (8.4-10.2) mg/dL Albumin (PEP) (3.80-4.90) g/dL Dtost-4-Usqxapiwi (0.10-0.40) g/dL Free [place] LC, Quant (0.33-1.94) mg/dL Free Lambda LC, Quant (0.57-2.63) mg/dL Microbiology - Last 24 Hours (Table) 10/23/21 08:46 Blood Culture - Preliminary Blood No Growth after 24 hours
[2021-10-25 12:09] LABS: Glucose,Whole Blood 84 mg/dL (70-110)
--- NOTE | 2021-10-25 14:27 | P.PN ---
Subjective Progress Note Date: 10/25/21 CHIEF COMPLAINT: Left leg DVT HISTORY OF PRESENT ILLNESS: Surgical service following in regards to patient's gallstones. He denies any abdominal pain. Denies any nausea or vomiting. He is tolerating regular diet. Patient is lying in bed. He is complaining of joint pain mostly in his hands and legs. Afebrile. WBC 14.5-19.6 Hgb 12.7 platelets 241. Sodium 134 potassium 3.8 creatinine 2.04 Patient seen and examined with Dr. coombs PHYSICAL EXAM: VITAL SIGNS: Reviewed. GENERAL: Well-developed in no acute distress. HEENT: No sclera icterus. Extraocular movements grossly intact. Moist buccal mucosa. Head is atraumatic, normocephalic. ABDOMEN: Soft. Nondistended. Nontender. NEUROLOGIC: Alert and oriented. Cranial nerves II through XII grossly intact. Extremities: Left lower extremity with multiple wounds and drainage ASSESSMENT: 1. Cholelithiasis. No abdominal pain. No significant sign of cholecystitis. 2. Choledocholithiasis 3. Abdominal pain due to Cholangitis. Improved 4. Left leg DVT 5. Acute on chronic systolic CHF with EF of 20-25% PLAN: -Uric acid level ordered for joint pain -Continue to monitor -No surgical intervention planned -Continue antibiotics per ID service -Continue supportive care Physician Hooker Machine Tender note has been reviewed by physician. Signing provider agrees with the documented findings, assessment, and plan of care. Objective - Vital Signs Vital signs: Vital Signs Temp 97.4 F L 10/25/21 12:00 Pulse 77 10/25/21 12:00 Resp 16 10/25/21 12:00 BP 121/79 10/25/21 12:00 Pulse Ox 95 10/25/21 12:00 FiO2 21 10/24/21 19:44 Intake & Output 10/24/21 10/25/21 10/25/21 18:59 06:59 18:59 Intake Total 980 240 Output Total 500 Balance 980 -500 240 Intake: IV 20 Invasive Line 4 20 Oral 960 240 Output: Urine 500 Other: Voiding Method Diaper Diaper Diaper # Voids 1 # Bowel Movements 1 - Labs CBC & Chem 7: 10/25/21 08:36 10/25/21 08:36 Labs: Abnormal Lab Results - Last 24 Hours (Table) 10/24/21 10/24/2122 Range/Units 16:40 20:20 08:36 WBC (3.8-10.6) k/uL RBC (4.30-5.90) m/uL Hgb (13.0-17.5) gm/dL MCV (80.0-100.0) fL RDW (11.5-15.5) % Neutrophils # (1.3-7.7) k/uL Sodium 134 L (137-145) mmol/L Chloride 94 L (98-107) mmol/L BUN 70 H (9-20) mg/dL Creatinine 2.04 H (0.66-1.25) mg/dL Glucose 61 L (74-99) mg/dL POC Glucose (mg/dL) 176 H 187 H (70-110) mg/dL Uric Acid (3.5-8.5) mg/dL Calcium 7.9 L (8.4-10.2) mg/dL 10/25/21 10/25/21 Range/Units 08:36 08:37 WBC 19.6 H (3.8-10.6) k/uL RBC 3.99 L (4.30-5.90) m/uL Hgb 12.7 L (13.0-17.5) gm/dL MCV 100.5 H (80.0-100.0) fL RDW 16.4 H (11.5-15.5) % Neutrophils # 17.2 H (1.3-7.7) k/uL Sodium (137-145) mmol/L Chloride (98-107) mmol/L BUN (9-20) mg/dL Creatinine (0.66-1.25) mg/dL Glucose (74-99) mg/dL POC Glucose (mg/dL) (70-110) mg/dL Uric Acid 10.7 H (3.5-8.5) mg/dL Calcium (8.4-10.2) mg/dL Microbiology - Last 24 Hours (Table) 10/23/21 08:46 Blood Culture - Preliminary Blood No Growth after 48 hours
[2021-10-25 17:11] LABS: Glucose,Whole Blood 139 mg/dL (70-110)
--- NOTE | 2021-10-25 17:24 | P.PN ---
Progress Note - Text Progress Note Date: 10/25/21 Chief Complaint: Left leg pain This is a pleasant 66-year-old patient, follows with Dr. Mike Escobar. Chronic stable medical conditions include CAD with stent, diabetes, hypertension, hyperlipidemia anxiety. Yesterday patient was walking about in [facility] when he started feeling unwell. Decided to leave the store and came to the parking lot. Sat down there. Decided to drive home. Patient has several bouts of nausea and vomiting. Switzer of the ER. He was then discharged last night. Denied any fever and chills. Had some abdominal pain. Settle down. He did gets IV fluids at the other hospital. Patient very early this morning started having pain from mid thigh down the leg. Rather significant. No injury. Patient had some sweating for some time. In the ER was found to have a common femoral relevant DVT. Also had arterial Doppler done which was reviewed by Dr. Mike found to be normal. No arterial compromise. Denies any nausea vomiting abdominal pain today. Patient noted to have increased LFTs compared to the was done at [facility]. Admitted with: Acute DVT of the left common femoral vein, choledocholithiasis asymptomatic, acute ischemic hepatitis, acute kidney injury, metabolic acidosis, positive blood cultures from the outside hospital. Patient started IV heparin, sodium bicarbonate drip, IV cefepime and IV daptomycin,. Acute arterial compromise was ruled out by arterial Doppler by Dr. Mike. Hyperkalemia treated. October 17: Because of multiple issues patient smoked in the ICU yesterday evening. Today patient on 5 L of nasal cannula. Decreased urine output. Bicarbonate drip. IV heparin. Doppler ultrasound showing distal pulses. October 18: ICU: Was up in a chair today. IV heparin. IV bicarbonate drip. 4 L nasal cannula. Had blisters on lower extremity. They will popped by vascular. October 19: ICU: Reclining in bed. IV heparin. After bicarbonate drip. KAYDEN stockings. 4 L nasal cannula. Did eat some food. October 20: ICU: Breathing better. On 3 L of nasal cannula. IV heparin stopped. Eliquis started. KAYDEN stockings. Leg pain better.. October 21: Moved to the medical floor. On 2 L nasal cannula. Not hungry. Blood cultures from [place] showed Streptococcus. Penicillin sensitive. IV daptomycin discontinued. October 22: Oral intake better. On 2 L nasal cannula. On IV Unasyn. Noticed to have some areas of localized redness raised fingers knee etc. Has remained afebrile. October 23: Oral intake better. On 2 L nasal cannula. Will check pulse ox on room air. On IV Unasyn. Requiring assist to stand. Looking at inpatient rehab. October 24: Patient's front of inflammatory arthritis. Has been on IV Unasyn. Ice pack to hand. Eating about 50%. Discussed with nephrology. Will changed to Demadex. Per ID private branch exchange installer to Augmentin. Plan to discharge to rehab tomorrow. October 25: Discussed again with patient about his inflammatory arthritis. Told her to increase active and passive movements of the hand. Has been changed over to Demadex and Augmentin. Pending authorization for rehab. Active Medications Acetaminophen (Acetaminophen Tab 325 Mg Tab) 325 mg PO Q6H PRN PRN Reason: Pain or Fever > 100.5 Last Admin: 10/22/21 21:41 Dose: 325 mg Alprazolam (Alprazolam 0.25 Mg Tab) 0.25 mg PO BID PRN PRN Reason: Anxiety Last Admin: 10/23/21 22:55 Dose: 0.25 mg Amoxicillin/Clavulanate Potassium (Amoxic-Pot Clav 875-125mg 1 Each Tab) 1 each PO Q12HR VAN; Protocol Last Admin: 10/25/21 09:56 Dose: 1 each Apixaban (Apixaban 5 Mg Tab) 10 mg PO BID VAN; Protocol Stop: 10/26/21 21:01 Last Admin: 10/25/21 09:56 Dose: 10 mg Aspirin (Aspirin 81 Mg) 81 mg PO DAILY COUNT INCLUDES THE [facility] Last Admin: 10/25/21 09:56 Dose: 81 mg Fluoxetine HCl (Fluoxetine Hcl 20 Mg Cap) 20 mg PO HS COUNT INCLUDES THE [facility] Last Admin: 10/24/21 21:01 Dose: 20 mg Hydromorphone HCl (Hydromorphone 0.5 Mg/0.5 Ml Syringe) 0.5 mg IVP Q3HR PRN PRN Reason: Moderate Pain Last Admin: 10/25/21 16:05 Dose: 0.5 mg Insulin Aspart (Insulin Aspart (Novolog) 100 Unit/Ml Vial) 0 unit SQ AC-TID VAN; Protocol Last Admin: 10/25/21 12:28 Dose: Not Given Insulin Detemir (Insulin Detemir (Levemir) 100 Unit/Ml Syr) 20 unit SQ HS COUNT INCLUDES THE [facility] Last Admin: 10/24/21 21:01 Dose: 20 unit Metoprolol Succinate (Metoprolol Succinate (Er) 50 Mg Tab.Er.24h) 50 mg PO BID COUNT INCLUDES THE [facility] Last Admin: 10/25/21 09:56 Dose: 50 mg Multi-Ingred Cream/Lotion/Oil/Oint (Hydrophilic Cream 180 Gm Tube) 1 applic TOPICAL DAILY COUNT INCLUDES THE [facility]; Protocol Last Admin: 10/25/21 10:10 Dose: 1 applic Naloxone HCl (Naloxone 0.4 Mg/Ml 1 Ml Vial) 0.2 mg IV Q2M PRN PRN Reason: Opioid Reversal Nitroglycerin (Nitroglycerin Sl Tabs 0.4 Mg Tab) 0.4 mg SUBLINGUAL Q5M PRN PRN Reason: Chest Pain Ondansetron HCl (Ondansetron 4 Mg/2 Ml Vial) 4 mg IVP Q8HR PRN PRN Reason: Nausea And Vomiting Tamsulosin HCl (Tamsulosin 0.4 Mg Cap.Er.24h) 0.4 mg PO PC-SUPPER COUNT INCLUDES THE [facility] Last Admin: 10/24/21 17:24 Dose: 0.4 mg Torsemide (Torsemide 20 Mg Tab) 40 mg PO DAILY COUNT INCLUDES THE [facility] Last Admin: 10/25/21 09:56 Dose: 40 mg Past medical history to include: CAD with stent, diabetes, hypertension, hyperlipidemia, skin cancer on the nose in August 2020, anxiety 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 Nonsmoker. Alcohol rarely. Family history: Diabetes, CAD Physical examination: VITAL SIGNS: 97.4, 77, 16, 121/79, 95% on room air GENERAL: Reclining bed, awake EYES: Pupils equal. Conjunctiva normal. HEENT: External appearance of nose and ears normal, oral cavity grossly normal. NECK: JVD not raised; masses not palpable. HEART: First and second heart sounds are normal; some edema. LUNGS: Respiratory rate increased; decreased breath sound . ABDOMEN: Soft, nontender, liver spleen not palpable, no masses palpable. PSYCH: [Alert and oriented x3; mood and affect slightly anxious MUSCULOSKELETAL:No Clubbing/cyanosis;muscles-grossly intact DERMATOLOGICAL: Some scattered areas of localized redness raised in the center including the right knee, finger EXTREMITIES: Decreased swelling of the left lower extremity, decreased edema INVESTIGATIONS, reviewed in the clinical context: October 25: WBC 9.6 hemoglobin 12.7 platelets 241 potassium 3.8 BUN 70 creatinine 2.04 October 24: Sodium 133 potassium 3.9 creatinine 2.01 October 23: WBC 14.5 hemoglobin 11.8 platelets 104 potassium 3.7 BUN 70 creatinine 2.16 CRP 19.8 procalcitonin 1.25 October 22: WBC 12.5 hemoglobin 12.6 platelets 88 potassium 3.9 creatinine 2.58 BUN 72 October 21: WBC 14.1 hemoglobin 12.7 potassium 3.9 creatinine 3.11 Blood culture from [facility]: Streptococcus October 20: W 12.9 hemoglobin 12.5 platelets 93 potassium 3.9 BUN 80 creatinine 3.88 AST 178 ALT 697 albumin 2.9 October 19: WBC 12.9 hemoglobin 11.9 platelets 104 potassium 3.8. 83 creatinine 3.9 01/[birth year]/1971 ALT 946 albumin 2.6 2-D echocardiogram: EF 20-25%. October 18: White count 16 hemoglobin 12 platelets 149 sodium 135 potassium 4.4 creatinine 4.12 AST 749 ALT 1351 October 17: White count 20.1 hemoglobin 1.4 platelets 154 INR 2.4 sodium 132 potassium 6 BUN 57 creatinine 3.47 lactic acidosis 3.5 AST 08/06/2008 ALT 2181 White count 31.4 hemoglobin 15.4 platelets 267 sodium 139 potassium 6.2 bicarbonate 12 BUN 41 creatinine 2.81 lactic acid 11.6 AST 494 ALT 240 troponin I 0.640, 2.4 EKG tracing personally reviewed by me-intraventricular block. Sinus rhythm. First-degree AV block. Left lower extremity venous Doppler: DVT in the common femoral vein. Chest x-ray film personally reviewed by me-cardiomegaly. Lungs clear Gallbladder ultrasound: Gallbladder filled with stones. Possible hepatic steatosis. Arterial Doppler results discussed with Dr. Mike: No evidence of vascular compromise Assessment and plan: -Acute DVT of the left common femoral vein, likely precipitated from acute gastroenteritis and decreased activity. eliquis . KAYDEN stockings. -Acute hypoxic respiratory failure, likely from CHF: Much improved On 2 L nasal cannula -Possible cholangitis per ID with blood cultures positive for Streptococcus. Received IV Unasyn. Augmentin started on October 25 -Ischemic cardiomyopathy, EF 20-25% -Sepsis with Streptococcus blood cultures [ from [facility] Blood cultures from October 16 negative IV Unasyn, changed to oral Augmentin from tomorrow -Choledocholithiasis. -Episode of acute food poisoning day prior to admission Self-limited. -Acute hepatitis. Likely ischemic.: Much improved Follow-up with GI -Troponinemia, likely from hemodynamic mismatch. Setting of acute kidney injury. No chest pain. IV heparin -CAD with a history of stent Aspirin 81 mg daily -Diabetes mellitus type 2, chronically on insulin Follow Accu-Cheks and sliding scale insulin. Increase Levemir 20 units at night -Hyperlipidemia Given the elevated LFTs hold Zocor. -Essential hypertension Continue to hold Norvasc -Lower extremity edema possibly from Norvasc and DVT KAYDEN stockings, bilateral -Acute kidney injury, ATN from sepsis and prerenal from nausea vomiting: Improving Patient's creatinine was 1.7 on August 25. 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 Creatinine 1.7 in August 2021 -Hyperkalemia from metabolic acidosis: corrected Renal diet. Lokelma. Sodium bicarbonate drip. 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 -Acute medical debility. PTOT. -Full code Eliquis . Augmentin and Demadex started today. . Told patient to increase passive and active movement of the fingers. Pending authorization for rehab. Cutback Levemir to 16 units at night. 3 units of Humalog with meals
[2021-10-25] MEDS: TAMSULOSIN 0.4 MG CAP.ER.24H PO SCH (18:20)
[2021-10-25] MEDS: FLUoxetine HCL 20 MG CAP PO SCH (20:30)
[2021-10-25 20:37] LABS: Glucose,Whole Blood 183 mg/dL (70-110)
[2021-10-25] MEDS: ALPRAZolam 0.25 MG TAB PO PRN (20:48)
[2021-10-25] MEDS ORDERED: INSULIN DETEMIR (LEVEMIR) 100 UNIT/ML SYR SQ SCH (21:00)
[2021-10-26] MEDS: HYDROmorphone 0.5 MG/0.5 ML SYRINGE IVP PRN ×2 (02:37→09:32)
[2021-10-26 04:26] VITALS: RESP 18
[2021-10-26 06:04] LABS: Glucose,Whole Blood 208 mg/dL (70-110)
[2021-10-26] MEDS: INSULIN ASPART (NovoLOG) 100 UNIT/ML VIAL SQ SCH ×4 (06:23→12:13)
[2021-10-26 08:33] LABS: Albumin 3.1 g/dL (3.5-5.0); Potassium 4.2 mmol/L (3.5-5.1); Total Bilirubin 0.9 mg/dL (0.2-1.3); Total Protein 6.6 g/dL (6.3-8.2)
[2021-10-26] MEDS: METOPROLOL SUCCINATE (ER) 50 MG TAB.ER.24H PO SCH (09:22)
[2021-10-26] MEDS: TORSEMIDE 20 MG TAB PO SCH (09:22)
[2021-10-26] MEDS: ASPIRIN 81 MG PO SCH (09:22)
[2021-10-26] MEDS: APIXABAN 5 MG TAB PO SCH (09:22)
[2021-10-26] MEDS: AMOXIC-POT CLAV 875-125MG 1 EACH TAB PO SCH (09:22)
[2021-10-26] MEDS: HYDROPHILIC CREAM 180 GM TUBE TOPICAL SCH (09:26)
[2021-10-26] MEDS ORDERED: TOLVAPTAN 15 MG 1/2 TABLET PO ONE (09:39)
--- NOTE | 2021-10-26 09:40 | P.PN ---
Subjective Patient is seen in follow-up for acute kidney injury on chronic kidney disease. Oral intake fair. Denies chest pain or shortness of breath. Hemodynamically stable. On oral torsemide. No changes overnight. Vital signs are stable. General: Awake. No acute distress. HEENT: Head exam is unremarkable. LUNGS: Breath sounds decreased. HEART: Rate and Rhythm are regular. ABDOMEN: Soft, no distention. EXTREMITITES: 1+ edema. Left lower extremity wrapped. Objective - Vital Signs Vital signs: Vital Signs Temp 98.2 F 10/26/21 04:00 Pulse 76 10/26/21 04:00 Resp 18 10/26/21 04:00 BP 146/71 10/26/21 04:00 Pulse Ox 94 L 10/26/21 04:00 FiO2 21 10/24/21 19:44 Intake & Output 10/25/21 10/26/21 10/26/21 18:59 06:59 18:59 Intake Total 352 355 Output Total 300 600 Balance 52 -600 355 Intake: Oral 352 355 Output: Urine 300 600 Other: Voiding Method Diaper Diaper # Bowel Movements 1 - Labs CBC & Chem 7: 10/25/21 08:36 10/26/21 07:52 Labs: Abnormal Lab Results - Last 24 Hours (Table) 10/25/21 10/25/21 10/25/21 Range/Units 08:36 08:37 17:00 Sodium 134 L (137-145) mmol/L Chloride 94 L (98-107) mmol/L BUN 70 H (9-20) mg/dL Creatinine 2.04 H (0.66-1.25) mg/dL Glucose 61 L (74-99) mg/dL POC Glucose (mg/dL) 139 H (70-110) mg/dL Uric Acid 10.7 H (3.5-8.5) mg/dL Calcium 7.9 L (8.4-10.2) mg/dL ALT (4-49) U/L Albumin (3.5-5.0) g/dL 10/25/21 10/26/21 10/26/21 Range/Units 20:21 05:55 07:52 Sodium 131 L (137-145) mmol/L Chloride 96 L (98-107) mmol/L BUN 71 H (9-20) mg/dL Creatinine 1.96 H (0.66-1.25) mg/dL Glucose 166 H (74-99) mg/dL POC Glucose (mg/dL) 183 H 208 H (70-110) mg/dL Uric Acid (3.5-8.5) mg/dL Calcium 8.0 L (8.4-10.2) mg/dL ALT 81 H (4-49) U/L Albumin 3.1 L (3.5-5.0) g/dL Microbiology - Last 24 Hours (Table) 10/23/21 08:46 Blood Culture - Preliminary Blood No Growth after 48 hours Assessment and Plan Plan: Assessment: 1. Acute kidney injury secondary to ATN secondary to hypotension and cardiorenal syndrome. Nonoliguric. Creatinine peaked at 4.12 this admission - 1.96 today. 2. Chronic kidney disease stage IIIB secondary to diabetic kidney disease with baseline creatinine in the range of 1.7-2 in August 2021. 3. Acute on chronic systolic CHF with ejection fraction of 20-25%. 4. Diabetes mellitus. 5. Cholangitis. On antibiotics. Surgery and ID following. 6. Hypervolemic hyponatremia. 7. Thrombocytopenia. Hematology following. Improved. Plan: Maintain torsemide. I will give him a dose of Samsca today. Maintain 1500 mL fluid restriction. Encourage oral intake. Avoid nephrotoxins. Continue to monitor renal function and urine output. Repeat BMP and magnesium level 2-3 days postdischarge. Follow up outpatient in 1 week.
[2021-10-26] MEDS: ACETAMINOPHEN TAB 325 MG TAB PO PRN (11:36)
[2021-10-26] MEDS: ALPRAZolam 0.25 MG TAB PO PRN (11:36)
[2021-10-26 12:05] LABS: Glucose,Whole Blood 126 mg/dL (70-110)
--- NOTE | 2021-10-26 12:15 | P.DS ---
Providers Date of admission: 10/16/21 10:29 Expected date of discharge: 10/26/21 Attending physician: Derick Johnson Consults: 10/16/21 11:13 Consult Physician Routine Consulting Provider: Celio Monte Consult Reason/Comments: gallstones Do you want consulting provider notified?: Yes 10/16/21 14:20 Consult Physician Routine Consulting Provider: Jennifer Leblanc Consult Reason/Comments: Choledocholithiasis Do you want consulting provider notified?: Yes 10/16/21 20:39 Consult Physician Routine Consulting Provider: Alysa Landry Consult Reason/Comments: acute on CKD/ hyperkalemia Do you want consulting provider notified?: Yes 10/17/21 09:54 Consult Physician Routine Consulting Provider: Cassidy Naik Consult Reason/Comments: possible sepsis Do you want consulting provider notified?: Yes 10/19/21 08:36 Consult Physician Urgent Consulting Provider: Jennifer Leblanc Consult Reason/Comments: Common bile duct stone Do you want consulting provider notified?: Yes 10/19/21 14:10 Consult Physician Routine Consulting Provider: Long Jensen Consult Reason/Comments: Thrombocytopenia, on heparin for left lower extremity DVT Do you want consulting provider notified?: Yes Primary care physician: Mike Escobar [facility] Course: Chief Complaint: Left leg pain This is a pleasant 66-year-old patient, follows with Dr. Mike Escobar. Chronic stable medical conditions include CAD with stent, diabetes, hypertension, hyperlipidemia anxiety. Yesterday patient was walking about in [facility] when he started feeling unwell. Decided to leave the store and came to the parking lot. Sat down there. Decided to drive home. Patient has several bouts of nausea and vomiting. Marshall of the ER. He was then discharged last night. Denied any fever and chills. Had some abdominal pain. Settle down. He did gets IV fluids at the other hospital. Patient very early this morning started having pain from mid thigh down the leg. Rather significant. No injury. Patient had some sweating for some time. In the ER was found to have a common femoral relevant DVT. Also had arterial Doppler done which was reviewed by Dr. Mike found to be normal. No arterial compromise. Denies any nausea vomiting abdominal pain today. Patient noted to have increased LFTs compared to the was done at [facility]. Admitted with: Acute DVT of the left common femoral vein, choledocholithiasis asymptomatic, acute ischemic hepatitis, acute kidney injury, metabolic acidosis, positive blood cultures from the outside hospital. Patient started IV heparin, sodium bicarbonate drip, IV cefepime and IV daptomycin,. Acute arterial compromise was ruled out by arterial Doppler by Dr. Mike. Hyperkalemia treated. October 17: Because of multiple issues patient smoked in the ICU yesterday evening. Today patient on 5 L of nasal cannula. Decreased urine output. Bicarbonate drip. IV heparin. Doppler ultrasound showing distal pulses. October 18: ICU: Was up in a chair today. IV heparin. IV bicarbonate drip. 4 L nasal cannula. Had blisters on lower extremity. They will popped by vascular. October 19: ICU: Reclining in bed. IV heparin. After bicarbonate drip. KAYDEN stockings. 4 L nasal cannula. Did eat some food. October 20: ICU: Breathing better. On 3 L of nasal cannula. IV heparin stopped. Eliquis started. KAYDEN stockings. Leg pain better.. October 21: Moved to the medical floor. On 2 L nasal cannula. Not hungry. Blood cultures from [place] showed Streptococcus. Penicillin sensitive. IV daptomycin discontinued. October 22: Oral intake better. On 2 L nasal cannula. On IV Unasyn. Noticed to have some areas of localized redness raised fingers knee etc. Has remained afebrile. October 23: Oral intake better. On 2 L nasal cannula. Will check pulse ox on room air. On IV Unasyn. Requiring assist to stand. Looking at inpatient rehab. October 24: Patient's front of inflammatory arthritis. Has been on IV Unasyn. Ice pack to hand. Eating about 50%. Discussed with nephrology. Will changed to Demadex. Per ID mold changer to Augmentin. Plan to discharge to rehab tomorrow. October 25: Discussed again with patient about his inflammatory arthritis. Told her to increase active and passive movements of the hand. Has been changed over to Demadex and Augmentin. Pending authorization for rehab. October 26: Oral intake much better. Uric acid came back elevated. Clinically not gout. We'll start allopurinol for hyperuricemia. Discussed with Dr. Khoury from ID. Climax to be reactive arthritis. Discussed with patient. 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 Alcohol rarely. Family history: Diabetes, CAD Physical examination: VITAL SIGNS: Weight 7.8, 70, 18, 120/79, 99% room air GENERAL: Reclining bed, awake, comfortable EYES: Pupils equal. Conjunctiva normal. HEENT: External appearance of nose and ears normal, oral cavity grossly normal. NECK: JVD not raised; masses not palpable. HEART: First and second heart sounds are normal; some edema. LUNGS: Respiratory rate increased; decreased breath sound . ABDOMEN: Soft, nontender, liver spleen not palpable, no masses palpable. PSYCH: [Alert and oriented x3; mood and affect slightly anxious MUSCULOSKELETAL:No Clubbing/cyanosis;muscles-grossly intact DERMATOLOGICAL: Some scattered areas of localized redness raised in the center including the right knee, finger EXTREMITIES: Decreased swelling of the left lower extremity, decreased edema INVESTIGATIONS, reviewed in the clinical context: Uric acid 10.7 October 26: Sodium 131 potassium 4.2 BUN 71 creatinine 1.96 October 21: WBC 14.1 hemoglobin 12.7 potassium 3.9 creatinine 3.11 Blood culture from [facility]: Streptococcus October 19: WBC 12.9 hemoglobin 11.9 platelets 104 potassium 3.8. 83 creatinine 3.9 01/06/1971 ALT 946 albumin 2.6 2-D echocardiogram: EF 20-25%. October 17: White count 20.1 hemoglobin 1.4 platelets 154 INR 2.4 sodium 132 potassium 6 BUN 57 creatinine 3.47 lactic acidosis 3.5 AST 08/06/2008 ALT 2181 White count 31.4 hemoglobin 15.4 platelets 267 sodium 139 potassium 6.2 bicarbonate 12 BUN 41 creatinine 2.81 lactic acid 11.6 AST 494 ALT 240 troponin I 0.640, 2.4 EKG tracing personally reviewed by me-intraventricular block. Sinus rhythm. First-degree AV block. Left lower extremity venous Doppler: DVT in the common femoral vein. Chest x-ray film personally reviewed by me-cardiomegaly. Lungs clear Gallbladder ultrasound: Gallbladder filled with stones. Possible hepatic steatosis. Arterial Doppler results discussed with Dr. Mike: No evidence of vascular compromise Assessment and plan: -Acute DVT of the left common femoral vein, likely precipitated from acute gastroenteritis and decreased activity. eliquis . KAYDEN stockings. -Acute hypoxic respiratory failure, likely from CHF: Much improved On 2 L nasal cannula -Possible cholangitis per ID with blood cultures positive for Streptococcus. Received IV Unasyn. Augmentin started on October 25 -Ischemic cardiomyopathy, EF 20-25% -Sepsis with Streptococcus blood cultures [ from [facility]]. Blood cultures from October 16 negative IV Unasyn, changed to oral Augmentin from tomorrow -Choledocholithiasis. -Episode of acute food poisoning day prior to admission Self-limited. -Acute hepatitis. Likely ischemic.: Much improved Follow-up with GI -Troponinemia, likely from hemodynamic mismatch. Setting of acute kidney injury. No chest pain. IV heparin -CAD with a history of stent Aspirin 81 mg daily -Diabetes mellitus type 2, chronically on insulin Follow Accu-Cheks and sliding scale insulin. Increase Levemir 20 units at night -Hyperlipidemia Given the elevated LFTs hold Zocor. -Essential hypertension Continue to hold Norvasc -Lower extremity edema possibly from Norvasc and DVT KAYDEN stockings, bilateral -Acute kidney injury, ATN from sepsis and prerenal from nausea vomiting: Improving Patient's creatinine was 1.7 on August 25. 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 Creatinine 1.7 in August 2021 -Hyperkalemia from metabolic acidosis: corrected Renal diet. Lokelma. Sodium bicarbonate drip. 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 -Acute medical debility. PTOT. -Hyperuricemia Start allopurinol 100 mg daily -Full code Disposition: [facility] CBC BMP: 5 days Fluid restriction 83163 mL a day Renal diet Plan - Discharge Summary Discharge Rx Participant: No New Discharge Prescriptions: New Amoxic-Pot Clav 875-125Mg [Augmentin 875-125] 1 each PO Q12HR #20 tab Apixaban [Eliquis Starter Pack (for VTE)] 5 - 10 mg PO DIRECTED 30 Days #1 each Atorvastatin [Lipitor] 20 mg PO HS #1 tablet Metoprolol Succinate (ER) [Toprol XL] 50 mg PO BID tab allopurinoL 100 mg PO DAILY #1 tab Torsemide [Demadex] 40 mg PO DAILY tab Tamsulosin [Flomax] 0.4 mg PO PC-SUPPER cap INSULIN ASPART (NovoLOG) [NovoLOG (formulary)] 0 unit SQ AC-TID each Insulin Detemir (Levemir) [Levemir] 20 unit SQ HS each INSULIN ASPART (NovoLOG) [NovoLOG (formulary)] 3 unit SQ AC-TID each Continue Nitroglycerin Sl Tabs [Nitrostat] 0.4 mg SUBLINGUAL Q5M PRN PRN Reason: Chest Pain FLUoxetine HCL [PROzac] 20 mg PO DAILY ALPRAZolam [Xanax] 0.25 mg PO BID #6 tab Acetaminophen Tab [Tylenol] 325 mg PO Q6H PRN PRN Reason: Pain Or Fever > 100.5 Discontinued Simvastatin [Zocor] 10 mg PO HS Insulin NPH Human Isophane [Novolin N] 20 units SQ BID PRN PRN Reason: Blood Sugar - High amLODIPine [Norvasc] 5 mg PO DAILY Spironolactone 50 mg PO DAILY Furosemide [Lasix] 40 mg PO DAILY Aspirin 81 mg PO DAILY Discharge Medication List Nitroglycerin Sl Tabs [Nitrostat] 0.4 mg SUBLINGUAL Q5M PRN 10/20/17 [History] Acetaminophen Tab [Tylenol] 325 mg PO Q6H PRN 08/22/21 [History] FLUoxetine HCL [PROzac] 20 mg PO DAILY 08/22/21 [History] ALPRAZolam [Xanax] 0.25 mg PO BID #6 tab 10/25/21 [Rx] Amoxic-Pot Clav 875-125Mg [Augmentin 875-125] 1 each PO Q12HR #20 tab 10/25/21 [Rx] Apixaban [Eliquis Starter Pack (for VTE)] 5 - 10 mg PO DIRECTED 30 Days #1 each 10/25/21 [Rx] Atorvastatin [Lipitor] 20 mg PO HS #1 tablet 10/25/21 [Rx] INSULIN ASPART (NovoLOG) [NovoLOG (formulary)] 0 unit SQ AC-TID each 10/25/21 [Rx] Metoprolol Succinate (ER) [Toprol XL] 50 mg PO BID tab 10/25/21 [Rx] Tamsulosin [Flomax] 0.4 mg PO PC-SUPPER cap 10/25/21 [Rx] Torsemide [Demadex] 40 mg PO DAILY tab 10/25/21 [Rx] INSULIN ASPART (NovoLOG) [NovoLOG (formulary)] 3 unit SQ AC-TID each 10/26/21 [Rx] Insulin Detemir (Levemir) [Levemir] 20 unit SQ HS each 10/26/21 [Rx] allopurinoL 100 mg PO DAILY #1 tab 10/26/21 [Rx] Follow up Appointment(s)/Referral(s): Keith Mike DO [STAFF PHYSICIAN] - 1 Week Mike Escobar MD [Primary Care Provider] - 1-2 days Roc Gonsalves DO [STAFF PHYSICIAN] - 2 Weeks Fred Leblanc MD [STAFF PHYSICIAN] - 2 Weeks Activity/Diet/Wound Care/Special Instructions: Fluid restriction: 1800 mL a day Wound care per vascular and ID.
[2021-10-26 12:17] VITALS: BP 144/79; PULSE 69; TEMP 98
--- NOTE | 2021-10-26 13:17 | P.PN ---
Subjective Progress Note Date: 10/26/21 CHIEF COMPLAINT: Left leg DVT HISTORY OF PRESENT ILLNESS: Surgical service following in regards to patient's gallstones. He denies any abdominal pain. Denies any nausea or vomiting. He is tolerating regular diet. Patient is lying in bed. He is complaining of joint pain mostly in his hands and legs. Patient's uric acid level was elevated at 10.7. Medicine service has added allopurinol. Patient's has received insurance authorization to be discharged to [facility]. Afebrile Patient seen and examined with Dr. coombs PHYSICAL EXAM: VITAL SIGNS: Reviewed. GENERAL: Well-developed in no acute distress. HEENT: No sclera icterus. Extraocular movements grossly intact. Moist buccal mucosa. Head is atraumatic, normocephalic. ABDOMEN: Soft. Nondistended. Nontender. NEUROLOGIC: Alert and oriented. Cranial nerves II through XII grossly intact. Extremities: Left lower extremity with multiple wounds and drainage ASSESSMENT: 1. Cholelithiasis. No abdominal pain. No significant sign of cholecystitis. 2. Choledocholithiasis 3. Abdominal pain due to Cholangitis. Improved 4. Left leg DVT 5. Acute on chronic systolic CHF with EF of 20-25% 6. Elevated uric acid level PLAN: -Patient can be discharged from surgical standpoint -Antibiotics per ID service -No surgical intervention at this time due to acute DVT and requiring blood thinners Physician Case Supervisor note has been reviewed by physician. Signing provider agrees with the documented findings, assessment, and plan of care. Objective - Vital Signs Vital signs: Vital Signs Temp 98.0 F 10/26/21 12:00 Pulse 69 10/26/21 12:00 Resp 18 10/26/21 12:00 BP 144/79 10/26/21 12:00 Pulse Ox 98 10/26/21 12:00 FiO2 21 10/24/21 19:44 Intake & Output 10/25/21 10/26/21 10/26/21 18:59 06:59 18:59 Intake Total 352 355 Output Total 300 600 Balance 52 -600 355 Weight 105.7 kg Intake: Oral 352 355 Output: Urine 300 600 Other: Voiding Method Diaper Diaper Diaper # Bowel Movements 1 - Labs CBC & Chem 7: 10/25/21 08:36 10/26/21 07:52 Labs: Abnormal Lab Results - Last 24 Hours (Table) 10/25/21 10/25/21 10/26/21 Range/Units 17:00 20:21 05:55 Sodium (137-145) mmol/L Chloride (98-107) mmol/L BUN (9-20) mg/dL Creatinine (0.66-1.25) mg/dL Glucose (74-99) mg/dL POC Glucose (mg/dL) 139 H 183 H 208 H (70-110) mg/dL Calcium (8.4-10.2) mg/dL ALT (4-49) U/L Albumin (3.5-5.0) g/dL 10/26/21 10/26/21 Range/Units 07:52 11:55 Sodium 131 L (137-145) mmol/L Chloride 96 L (98-107) mmol/L BUN 71 H (9-20) mg/dL Creatinine 1.96 H (0.66-1.25) mg/dL Glucose 166 H (74-99) mg/dL POC Glucose (mg/dL) 126 H (70-110) mg/dL Calcium 8.0 L (8.4-10.2) mg/dL ALT 81 H (4-49) U/L Albumin 3.1 L (3.5-5.0) g/dL Microbiology - Last 24 Hours (Table) 10/23/21 08:46 Blood Culture - Preliminary Blood No Growth after 72 hours
== END 2021-10-26 16:13 | DRG 871 ==
LOC: EC 06:23 → 3SCARD 10:29 → 2SICU 21:54 → 3SCARD 10-20 23:05
PROVIDERS: ADMIT Hospitalist; ATTEND Hospitalist
DX: A40.9 Streptococcal sepsis, unspecified (principal); J96.01 Acute respiratory failure with hypoxia; N17.0 Acute kidney failure with tubular necrosis; I50.23 Acute on chronic systolic (congestive) heart failure; D65 Disseminated intravascular coagulation [defibrination syndrome]; I82.412 Acute embolism and thrombosis of left femoral vein; E87.1 Hypo-osmolality and hyponatremia; I13.0 Hypertensive heart and chronic kidney disease with heart failure and stage 1 through stage 4 chronic kidney disease, or unspecified chronic kidney disease; R18.8 Other ascites; B17.9 Acute viral hepatitis, unspecified; I87.332 Chronic venous hypertension (idiopathic) with ulcer and inflammation of left lower extremity; I47.2 Ventricular tachycardia; E87.2 Acidosis; L97.322 Non-pressure chronic ulcer of left ankle with fat layer exposed; L97.222 Non-pressure chronic ulcer of left calf with fat layer exposed; K80.30 Calculus of bile duct with cholangitis, unspecified, without obstruction; I25.10 Atherosclerotic heart disease of native coronary artery without angina pectoris; E11.9 Type 2 diabetes mellitus without complications; I10 Essential (primary) hypertension; E78.5 Hyperlipidemia, unspecified; F41.9 Anxiety disorder, unspecified; E11.22 Type 2 diabetes mellitus with diabetic chronic kidney disease; I87.2 Venous insufficiency (chronic) (peripheral); E86.0 Dehydration; R53.81 Other malaise; I25.5 Ischemic cardiomyopathy; E87.5 Hyperkalemia; L98.492 Non-pressure chronic ulcer of skin of other sites with fat layer exposed; E11.622 Type 2 diabetes mellitus with other skin ulcer; D64.9 Anemia, unspecified; I44.0 Atrioventricular block, first degree; A05.9 Bacterial foodborne intoxication, unspecified; M06.4 Inflammatory polyarthropathy; N18.32 Chronic kidney disease, stage 3b; M19.90 Unspecified osteoarthritis, unspecified site; Z95.5 Presence of coronary angioplasty implant and graft; I25.2 Old myocardial infarction; Z85.828 Personal history of other malignant neoplasm of skin; Z79.01 Long term (current) use of anticoagulants; Z79.4 Long term (current) use of insulin; Z79.82 Long term (current) use of aspirin; Z79.899 Other long term (current) drug therapy; Z95.810 Presence of automatic (implantable) cardiac defibrillator; Z89.422 Acquired absence of other left toe(s); Z87.891 Personal history of nicotine dependence; Z82.49 Family history of ischemic heart disease and other diseases of the circulatory system; Z83.3 Family history of diabetes mellitus; Z88.4 Allergy status to anesthetic agent
CPT/HCPCS: 36415; 71045; 71046; 74181; 76705; 76770; 78582; 80048; 80053; 80074; 81001; 82784; 83010; 83605; 83615; 83735; 83880; 83883; 84132; 84145; 84165; 84484; 84550; 85025; 85384; 85610; 85652; 85730; 86022; 86038; 86140; 86334; 86431; 87040; 93005; 93306; 93922; 93923; 94760; 96361; 96365; 96367; 96374; 96375; 96376; 99291

== ENCOUNTER 2021-11-14 08:12 | Inpatient (IN) | payer MEDICARE ==
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
[2021-11-14 10:03] LABS: Anisocytosis Slight; Basophils # (A) 0.1 k/uL (0-0.2); Basophils % (A) 1 %; Eosinophils # (A) 0.1 k/uL (0-0.7); Eosinophils % (A) 1 %; HCT 32.7 % (39.0-53.0); HGB 10.3 gm/dL (13.0-17.5); Hypochromasia Marked; Lymphocytes # (A) 0.7 k/uL (1.0-4.8); Lymphocytes % (A) 10 %; MCH 30.7 pg (25.0-35.0); MCHC 31.6 g/dL (31.0-37.0); MCV 97.2 fL (80.0-100.0); Mean Platelet Volume 7.6; Monocytes # (A) 0.6 k/uL (0-1.0); Monocytes % (A) 9 %; Neutrophils # (A) 5.4 k/uL (1.3-7.7); Neutrophils % (A) 78 %; Platelet Count 287 k/uL (150-450); Poikilocytosis Slight; RBC 3.37 m/uL (4.30-5.90)
[2021-11-14 10:06] LABS: C Reactive Protein 5.7 mg/dL (<1.0); Calcium 7.9 mg/dL (8.4-10.2); Potassium 4.7 mmol/L (3.5-5.1); Total Bilirubin 0.9 mg/dL (0.2-1.3); Total Protein 6.8 g/dL (6.3-8.2)
--- NOTE | 2021-11-14 10:36 | XR ---
EXAMINATION TYPE: XR tibia fibula LT DATE OF EXAM: 11/14/2021 10:14 AM INDICATION: Patient age:Male; 66 years old; Reason for study: infection;. COMPARISON: None TECHNIQUE: The left tibia/fibula was examined in AP and lateral projections. FINDINGS: Mild osteophyte formation of the tibial plateau, femoral condyles and patella. There is ath erosclerosis of the arterial vasculature. There is no evidence for subcutaneous lucencies to suggest subcutaneous gas. Subcutaneous edema predominantly involving the prepatellar soft tissues and lower t high anteriorly. IMPRESSION: 1. Soft tissue swelling in the prepatellar soft tissues and lower anterior thigh. Correlate for sinu sitis. No subcutaneous gas. 2. No evidence of acute fracture. 3. Mild osteoarthritic changes of the left knee.
[2021-11-14] MEDS ORDERED: NALOXONE 0.4 MG/ML 1 ML VIAL IV PRN (11:11)
[2021-11-14] MEDS ORDERED: VANCOMYCIN IV PER PHARMACY 1 EACH MISC MISCELLANE PRN (11:12)
[2021-11-14] MEDS ORDERED: PIPERACILLIN-TAZOBACTAM 3.375 GM in SODIUM CHLORIDE 0.9% 100 ML IVPB STA (11:17)
[2021-11-14] MEDS ORDERED: VANCOMYCIN 1,750 MG in SODIUM CHLORIDE 0.9% 500 ML 500 ML IVPB ONE (12:30)
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
[2021-11-14 16:06] LABS: Glucose,Whole Blood 93 mg/dL (70-110)
[2021-11-14] MEDS: HYDROcodone/APAP 7.5-325MG 1 EACH TAB PO PRN (16:06)
[2021-11-14] MEDS: INSULIN ASPART (NovoLOG) 100 UNIT/ML VIAL SQ SCH ×2 (16:07)
[2021-11-14] MEDS: PIPERACILLIN-TAZOBACTAM 3.375 GM in SODIUM CHLORIDE 0.9% 100 ML IVPB SCH ×2 (16:07→23:52)
[2021-11-14] MEDS ORDERED: ALPRAZolam 0.25 MG TAB PO STA (17:01)
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
[2021-11-14] MEDS ORDERED: TEMAZEPAM 15 MG CAP PO PRN (19:21)
[2021-11-14] MEDS ORDERED: ONDANSETRON 4 MG/2 ML VIAL IVP PRN (19:21)
[2021-11-14] MEDS ORDERED: LACTULOSE 20 GM/30 ML CUP PO PRN (19:21)
[2021-11-14] MEDS ORDERED: CALCIUM CARBONATE 500 MG CHEWABLE PO PRN (19:21)
[2021-11-14] MEDS: TAMSULOSIN 0.4 MG CAP.ER.24H PO SCH (20:24)
[2021-11-14] MEDS: APIXABAN 5 MG TAB PO SCH (20:24)
[2021-11-14] MEDS: ATORVASTATIN 20 MG TAB PO SCH (20:24)
[2021-11-14] MEDS: ALPRAZolam 0.25 MG TAB PO SCH (20:24)
[2021-11-14] MEDS: INSULIN DETEMIR (LEVEMIR) 100 UNIT/ML SYR SQ SCH (20:24)
[2021-11-14] MEDS: METOPROLOL SUCCINATE (ER) 50 MG TAB.ER.24H PO SCH (20:24)
[2021-11-14 20:45] LABS: Glucose,Whole Blood 158 mg/dL (70-110)
[2021-11-15] MEDS: ACETAMINOPHEN TAB 325 MG TAB PO PRN (05:44)
[2021-11-15 06:41] LABS: African American GFR (CKD) 36 (>60 ml/min/1.73 sqM); Anion Gap 7 mmol/L; Blood Urea Nitrogen 36 mg/dL (9-20); Carbon Dioxide 28 mmol/L (22-30); Chloride 101 mmol/L (98-107); Glucose 81 mg/dL (74-99); Non-African American GFR(CKD) 31 (>60 ml/min/1.73 sqM); Potassium 4.6 mmol/L (3.5-5.1); Sodium 136 mmol/L (137-145)
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
[2021-11-15] MEDS ORDERED: GLIMEPIRIDE 1 MG TAB PO SCH (07:30)
[2021-11-15 07:40] LABS: Glucose,Whole Blood 84 mg/dL (70-110)
[2021-11-15] MEDS ORDERED: VANCOMYCIN 1,750 MG in SODIUM CHLORIDE 0.9% 500 ML 500 ML IVPB SCH (08:00)
[2021-11-15] MEDS: INSULIN ASPART (NovoLOG) 100 UNIT/ML VIAL SQ SCH ×6 (08:00→16:00)
[2021-11-15] MEDS ORDERED: VANCOMYCIN 1,750 MG in SODIUM CHLORIDE 0.9% 500 ML 500 ML IVPB ONE (08:00)
[2021-11-15] MEDS: ALPRAZolam 0.25 MG TAB PO SCH ×2 (08:21→21:41)
[2021-11-15] MEDS: TORSEMIDE 20 MG TAB PO SCH (08:21)
[2021-11-15] MEDS: SPIRONOLACTONE 25 MG TAB PO SCH (08:21)
[2021-11-15] MEDS: PIPERACILLIN-TAZOBACTAM 3.375 GM in SODIUM CHLORIDE 0.9% 100 ML IVPB SCH ×2 (08:22→15:55)
[2021-11-15] MEDS: APIXABAN 5 MG TAB PO SCH (08:22)
[2021-11-15] MEDS: CHOLECALCIFEROL 25 MCG (1000 IU) TABLET PO SCH (08:22)
[2021-11-15] MEDS: FLUoxetine HCL 20 MG CAP PO SCH (08:22)
[2021-11-15] MEDS: allopurinoL 100 MG TAB PO SCH (08:22)
[2021-11-15] MEDS: METOPROLOL SUCCINATE (ER) 50 MG TAB.ER.24H PO SCH ×2 (08:22→21:40)
[2021-11-15] MEDS: HYDROPHILIC CREAM 180 GM TUBE TOPICAL SCH (08:23)
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
[2021-11-15 11:38] LABS: Glucose,Whole Blood 140 mg/dL (70-110)
[2021-11-15] MEDS: COLLAGENASE 250 UNIT/GM OINTMENT 30 GM TUBE TOPICAL SCH (12:45)
--- NOTE | 2021-11-15 14:12 | P.PN ---
Subjective Progress Note Date: 11/15/21 Principal diagnosis: Diabetic ulcers, peripheral arterial disease 66-year-old male seen as a follow-up today for left lower extremity diabetic ulcers. Patient had no acute changes through the night. He has been afebrile. Wound care on consult recommending Santyl and debridement of ulcers. Objective - Vital Signs Vital signs: Vital Signs Temp 97.7 F 11/15/21 07:06 Pulse 70 11/15/21 07:06 Resp 18 11/15/21 08:00 BP 111/70 11/15/21 07:06 Pulse Ox 93 L 11/15/21 07:06 FiO2 Intake & Output 11/14/21 11/15/21 11/15/21 18:59 06:59 18:59 Intake Total 400 180 Balance 400 180 Weight 90.718 kg Intake: Oral 400 180 Other: Voiding Method Toilet Toilet # Bowel Movements 0 - Exam General appearance: The patient is alert, oriented, appears in no acute distress, obese. HET: Head is normocephalic and atraumatic. Pupils are equal and reactive. Neck: Supple without lymphadenopathy. Trachea midline. Extremities: Bilateral palpable femoral pulses. Bilateral lower extremity edema. Right lower extremity with hyperpigmentation. Left lower extremity with redness and firmness in the medial aspect of the lower thigh, multiple ulcerations to the left lower extremity that are weeping. Bilateral feet cold to touch, with good capillary refill. Sensation intact with good movement of bilateral lower extremities. Neurological: No focal deficits. Strength and sensation are grossly intact. - Labs CBC & Chem 7: 11/14/21 09:33 11/15/21 06:11 Labs: Abnormal Lab Results - Last 24 Hours (Table) 11/14/21 11/15/21 11/15/21 Range/Units 20:23 06:11 11:36 Sodium 136 L (137-145) mmol/L BUN 36 H (9-20) mg/dL Creatinine 2.14 H (0.66-1.25) mg/dL POC Glucose (mg/dL) 158 H 140 H (70-110) mg/dL Calcium 8.0 L (8.4-10.2) mg/dL Microbiology - Last 24 Hours (Table) 11/14/21 09:33 Blood Culture - Preliminary Blood No Growth after 24 hours 11/14/21 09:33 Blood Culture - Preliminary Blood No Growth after 24 hours Assessment and Plan Assessment: 1. Chronic Diabetic ulcers of the left lower extremity 2. Cellulitis of left lower extremity 3. Recent DVT left lower extremity on Eliquis 4. Chronic venous insufficiency 5. Diabetes mellitus 6. Coronary artery disease status post [place], cardiac stents Plan: 1. Consult to wound care for local wound care, previously on case during last admission 2. Continue local wound care 3. Hold Eliquis this evening and tomorrow morning 4. Elevate lower extremities and apply Bilateral compression stockings 5. Will proceed with debridement of left lower extremity ulcers 6. Nothing by mouth after midnight 7. Antibiotics per recommendations from infectious disease Thank you for this consultation, we will continue to follow. The impression and plan of care has been dictated as directed. I performed a history and examination of this patient, discussed the same with the dictator. I agree with the dictator's note ,documented as a scribe. Any additional findings or plans will be noted.
--- NOTE | 2021-11-15 15:25 | US ---
EXAMINATION TYPE: US arterial LE single level DATE OF EXAM: 11/14/2021 4:22 PM CLINICAL HISTORY: Nonhealing diabetic ulcers. leg pain. History of diabetes and prior vascular surge ry. Discoloration and redness bilateral legs. History of hyperlipidemia and hypertension along with c oronary artery disease. Doppler Waveforms: Right: Predominantly monophasic Left: Monophasic to multiphasic Pulse Volume Recording: Flattened bilateral toes Pressure Gradients: Ankle-Brachial Indices: Right: CNO Left: CNO Toe Brachial Indices: Right: 0.9 Left: 1.0 IMPRESSION: Normal TBI values. Could not obtained JUICE values. Loss of phasicity. Further workup and follow-up advised.
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
[2021-11-15 16:01] LABS: Glucose,Whole Blood 110 mg/dL (70-110)
[2021-11-15] MEDS: ATORVASTATIN 20 MG TAB PO SCH (21:40)
[2021-11-15] MEDS: TAMSULOSIN 0.4 MG CAP.ER.24H PO SCH (21:40)
[2021-11-15] MEDS: INSULIN DETEMIR (LEVEMIR) 100 UNIT/ML SYR SQ SCH (21:41)
[2021-11-15 21:43] LABS: Glucose,Whole Blood 81 mg/dL (70-110)
[2021-11-15] MEDS: HYDROcodone/APAP 7.5-325MG 1 EACH TAB PO PRN (22:14)
--- NOTE | 2021-11-15 23:05 | P.PN ---
Progress Note - Text Progress Note Date: 11/15/21 Chief Complaint: Left leg wounds This is a pleasant 66-year-old patient, follows with Dr. Mike Escobar. Chronic stable medical conditions include CAD with stent, diabetes, hypertension, hyperlipidemia anxiety. CAD, hyperuricemia, left leg DVT in October 2021 Patient was in the hospital recently from October 16 to 10/26/2021, at [facility] Admitted with acute left common femoral relevant DVT. - arterial Doppler done - Dr. Mike found to be normal. No arterial compromise. Denies any nausea vomiting abdominal pain today. Patient noted to have increased LFTs compared to the was done at [facility]. Also had acute ischemic hepatitis, acute kidney injury, also positive blood cultures from [facility] growing streptococcus. [place] to be cholangitis per ID. Patient also had reactive arthritis that actually improved. Patient was discharged on Augmentin. Also started on allopurinol for hyperuricemia. EF was found to be 20-25%. Also acute hypoxic respiratory failure from CHF. Was discharged to rehab Patient now presents from to [facility]. Patient's blood left lower extremity wounds. Inflamed. Pain is present. Appetite is fair. Able to use a walker to walk a few steps. Denies any obvious fever and chills. November 15: Oral intake fair. IV Zosyn. Santyl topically. Encourage increase activity. for wound debridement per vascular. Tomorrow Active Medications Acetaminophen (Acetaminophen Tab 325 Mg Tab) 650 mg PO Q6H PRN PRN Reason: Pain or Fever > 100.5 Last Admin: 11/15/21 05:44 Dose: 650 mg Hydrocodone Bitart/Acetaminophen (Hydrocodone/Apap 7.5-325mg 1 Each Tab) 1 each PO Q6H PRN PRN Reason: Pain Last Admin: 11/15/21 22:14 Dose: 1 each Allopurinol (Allopurinol 100 Mg Tab) 100 mg PO DAILY [facility] Last Admin: 11/15/21 08:22 Dose: 100 mg Alprazolam (Alprazolam 0.25 Mg Tab) 0.25 mg PO BID [facility] Last Admin: 11/15/21 21:41 Dose: 0.25 mg Atorvastatin Calcium (Atorvastatin 20 Mg Tab) 20 mg PO HS [facility] Last Admin: 11/15/21 21:40 Dose: 20 mg Calcium Carbonate/Glycine (Calcium Carbonate 500 Mg Chewable) 1,000 mg PO Q4HR PRN PRN Reason: Dyspepsia Cholecalciferol (Cholecalciferol 25 Mcg (1000 Iu) Tablet) 25 mcg PO DAILY [facility] Last Admin: 11/15/21 08:22 Dose: 25 mcg Collagenase (Collagenase 250 Unit/Gm Ointment 30 Gm Tube) 1 applic TOPICAL DAILY [facility]; Protocol Last Admin: 11/15/21 12:45 Dose: 1 applic Fluoxetine HCl (Fluoxetine Hcl 20 Mg Cap) 20 mg PO DAILY [facility] Last Admin: 11/15/21 08:22 Dose: 20 mg Glimepiride (Glimepiride 1 Mg Tab) 1 mg PO AC-BRKFST [facility] Last Admin: 11/15/21 08:21 Dose: 1 mg Piperacillin Sod/Tazobactam (Sod 3.375 gm/ Sodium Chloride) 100 mls @ 25 mls/hr IVPB Q8HR [facility]; Protocol Last Admin: 11/15/21 15:55 Dose: 25 mls/hr Insulin Aspart (Insulin Aspart (Novolog) 100 Unit/Ml Vial) 0 unit SQ AC- TID@,,1600 [facility]; Protocol Last Admin: 11/15/21 16:00 Dose: Not Given Insulin Aspart (Insulin Aspart (Novolog) 100 Unit/Ml Vial) 3 unit SQ AC- TID@,,16 [facility] Last Admin: 11/15/21 16:00 Dose: Not Given Insulin Detemir (Insulin Detemir (Levemir) 100 Unit/Ml Syr) 20 unit SQ [facility] Last Admin: 11/15/21 21:41 Dose: Not Given Lactulose (Lactulose 20 Gm/30 Ml Cup) 20 gm PO DAILY PRN PRN Reason: Constipation Metoprolol Succinate (Metoprolol Succinate (Er) 50 Mg Tab.Er.24h) 50 mg PO BID@0800,2000 [facility] Last Admin: 11/15/21 21:40 Dose: 50 mg Multi-Ingred Cream/Lotion/Oil/Oint (Hydrophilic Cream 180 Gm Tube) 1 applic TO PICAL DAILY [facility]; Protocol Last Admin: 11/15/21 08:23 Dose: Not Given Naloxone HCl (Naloxone 0.4 Mg/Ml 1 Ml Vial) 0.2 mg IV Q2M PRN PRN Reason: Opioid Reversal Ondansetron HCl (Ondansetron 4 Mg/2 Ml Vial) 4 mg IVP Q8HR PRN PRN Reason: Nausea And Vomiting Spironolactone (Spironolactone 25 Mg Tab) 12.5 mg PO DAILY [facility] Last Admin: 11/15/21 08:21 Dose: 12.5 mg Tamsulosin HCl (Tamsulosin 0.4 Mg Cap.Er.24h) 0.4 mg PO HS [facility] Last Admin: 11/15/21 21:40 Dose: 0.4 mg Temazepam (Temazepam 15 Mg Cap) 15 mg PO HS PRN PRN Reason: Insomnia Torsemide (Torsemide 20 Mg Tab) 60 mg PO DAILY [facility] Last Admin: 11/15/21 08:21 Dose: 60 mg Past medical history to include: CAD with stent, diabetes, hypertension, hyperlipidemia, skin cancer on the nose in August 2020, anxiety, left leg common femoral DVT October 2021, hyperuricemia, hepatic steatosis, CHF EF 20-25% 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 Nonsmoker. Alcohol rarely. Currently at rehab Family history: Diabetes, CAD Physical examination: VITAL SIGNS: 97.4, 59, 19, 90/58, 92% room air GENERAL: Sitting at edge of the bed EYES: Pupils equal. Conjunctiva normal. HEENT: External appearance of nose and ears normal, oral cavity grossly normal. NECK: JVD not raised; masses not palpable. HEART: First and second heart sounds are normal; some edema. LUNGS: Respiratory rate increased; decreased breath sound . ABDOMEN: Soft, nontender, liver spleen not palpable, no masses palpable. PSYCH: [Alert and oriented x3; mood and affect slightly anxious MUSCULOSKELETAL:No Clubbing/cyanosis;muscles-grossly intact. DERMATOLOGICAL: areas breakdown of skin with wounds on the left lower extremity. EXTREMITIES: Decreased swelling of the left lower extremity, decreased edema INVESTIGATIONS, reviewed in the clinical context: November 15: Sodium 136 potassium 4.6 BUN 36 creatinine 2.14 WBC 7 hemoglobin 10.3 platelets 27 sodium 132 potassium 4.7 BUN 36 creatinine 2.26 CRP 5.7 Previous labs [October 2021] Uric acid 10.7 October 26: Sodium 131 potassium 4.2 BUN 71 creatinine 1.96 2-D echocardiogram: EF 20-25%. Left lower extremity venous Doppler: DVT in the common femoral vein. Gallbladder ultrasound: Gallbladder filled with stones. Possible hepatic steatosis. Arterial Doppler results discussed with Dr. Mike: No evidence of vascular compromise Assessment and plan: -Acute multiple wounds painful left lower extremity likely from venous ulcers from recent DVT. Possible secondary infection: Slow to respond IV Zosyn. Topical Santyl. Wound care. Pending debridement by vascular. -Chronic DVT of the left common femoral vein, in 10/16/2021 eliquis . -Ischemic cardiomyopathy, EF 20-25% Toprol-XL 50 mg twice daily. Aldactone 12.5 mg daily. Demadex -Choledocholithiasis. Asymptomatic -CAD with a history of stent Aspirin 81 mg daily, Lopressor -Diabetes mellitus type 2, chronically on insulin Follow Accu-Cheks and sliding scale insulin. 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 Creatinine 1. 96 on 10/26/2021 -Anxiety not otherwise specified Xanax 0.25 mg by mouth twice a day -Hyperuricemia allopurinol 100 mg daily -Full code IV Zosyn. Wound care. Topical Santyl. Pending debridement. Other medications to continue.
--- NOTE | 2021-11-15 23:55 | P.PN ---
Subjective Progress Note Date: 11/15/21 Principal diagnosis: left lower extremity wound and cellulitis Patient is a 66-year-old male with multiple comorbidity presented to hospital with worsening wound to the left lower extremity and concerning for secondary cellulitis. On today's evaluation that is 11/15/2021, patient denies having any fever or any chills, patient denies any worsening pain to the left lower extremity, denies any chest pain shortness of breath or cough no abdominal pain no diarrhea Objective - Vital Signs Vital signs: Vital Signs Temp 97.7 F 11/15/21 07:06 Pulse 70 11/15/21 07:06 Resp 18 11/15/21 08:00 BP 111/70 11/15/21 07:06 Pulse Ox 93 L 11/15/21 07:06 FiO2 Intake & Output 11/14/21 11/15/21 11/15/21 18:59 06:59 18:59 Intake Total 400 180 Balance 400 180 Weight 90.718 kg Intake: Oral 400 180 Other: Voiding Method Toilet Toilet # Bowel Movements 0 - Exam GENERAL DESCRIPTION: An elderly male lying in bed in no distress RESPIRATORY SYSTEM: Unlabored breathing , decreased breath sounds at bases HEART: S1 S2 regular rate and rhythm , ABDOMEN: Soft , no tenderness EXTREMITIES: Left lower extremity wound currently dressed and there is no drainage present - Labs CBC & Chem 7: 11/14/21 09:33 11/15/21 06:11 Labs: Abnormal Lab Results - Last 24 Hours (Table) 11/14/21 11/15/21 11/15/21 Range/Units 20:23 06:11 11:36 Sodium 136 L (137-145) mmol/L BUN 36 H (9-20) mg/dL Creatinine 2.14 H (0.66-1.25) mg/dL POC Glucose (mg/dL) 158 H 140 H (70-110) mg/dL Calcium 8.0 L (8.4-10.2) mg/dL Microbiology - Last 24 Hours (Table) 11/14/21 09:33 Blood Culture - Preliminary Blood No Growth after 24 hours 11/14/21 09:33 Blood Culture - Preliminary Blood No Growth after 24 hours Assessment and Plan (1) Diabetic leg ulcer Current Visit: Yes Status: Acute Code(s): E11.622 - TYPE 2 DIABETES MELLITUS WITH OTHER SKIN ULCER; L97.909 - NON-PRS CHRONIC ULC UNSP PRT OF UNSP LOW LEG W UNSP SEVERITY SNOMED Code(s): 262340593 (2) Left leg cellulitis Current Visit: Yes Status: Acute Code(s): L03.116 - CELLULITIS OF LEFT LOWER LIMB SNOMED Code(s): 039422076 Plan: 1ulcers and concern for secondary cellulitis more likely gram-positive skin pollo plus minus gram-negative in view of underlying diabetes patient with left lower extremity ulceration and concern for possible venous/arterial insufficiency in this patient with multiple comorbidity. 2 patient is currently waiting for surgical debridement and deep culture 3patient continue with Zosyn 4 local wound care to continue with Santyl followed by moist dressing changes daily
[2021-11-16] MEDS: PIPERACILLIN-TAZOBACTAM 3.375 GM in SODIUM CHLORIDE 0.9% 100 ML IVPB SCH ×4 (00:36→23:04)
[2021-11-16] MEDS: ACETAMINOPHEN TAB 325 MG TAB PO PRN ×2 (02:27→23:06)
[2021-11-16] MEDS: HYDROcodone/APAP 7.5-325MG 1 EACH TAB PO PRN (04:06)
[2021-11-16 06:50] LABS: Glucose,Whole Blood 58 mg/dL (70-110)
[2021-11-16 07:17] LABS: Glucose,Whole Blood 64 mg/dL (70-110)
[2021-11-16] MEDS: DEXTROSE 5% IN WATER 1,000 ML IV SCH ×2 (07:28→19:37)
[2021-11-16 07:39] LABS: African American GFR (CKD) 35 (>60 ml/min/1.73 sqM); Anion Gap 9 mmol/L; Blood Urea Nitrogen 34 mg/dL (9-20); Calcium 8.2 mg/dL (8.4-10.2); Carbon Dioxide 24 mmol/L (22-30); Chloride 103 mmol/L (98-107); Glucose 56 mg/dL (74-99); Non-African American GFR(CKD) 30 (>60 ml/min/1.73 sqM); Potassium 4.4 mmol/L (3.5-5.1); Sodium 136 mmol/L (137-145)
[2021-11-16] MEDS: COLLAGENASE 250 UNIT/GM OINTMENT 30 GM TUBE TOPICAL SCH (08:00)
[2021-11-16] MEDS: HYDROPHILIC CREAM 180 GM TUBE TOPICAL SCH (08:00)
[2021-11-16] MEDS: INSULIN ASPART (NovoLOG) 100 UNIT/ML VIAL SQ SCH ×6 (09:05→17:19)
[2021-11-16] MEDS: SPIRONOLACTONE 25 MG TAB PO SCH (09:06)
[2021-11-16] MEDS: ALPRAZolam 0.25 MG TAB PO SCH ×2 (09:06→22:06)
[2021-11-16] MEDS: allopurinoL 100 MG TAB PO SCH (09:06)
[2021-11-16] MEDS: FLUoxetine HCL 20 MG CAP PO SCH (09:06)
[2021-11-16] MEDS: METOPROLOL SUCCINATE (ER) 50 MG TAB.ER.24H PO SCH ×2 (09:06→22:06)
[2021-11-16] MEDS: TORSEMIDE 20 MG TAB PO SCH (09:10)
[2021-11-16] MEDS: CHOLECALCIFEROL 25 MCG (1000 IU) TABLET PO SCH (10:10)
[2021-11-16 11:55] LABS: Glucose,Whole Blood 88 mg/dL (70-110)
[2021-11-16] MEDS ORDERED: LACTATED RINGERS 1,000 ML IV ONE (12:28)
[2021-11-16 12:32] LABS: Glucose,Whole Blood 85 mg/dL (70-110)
--- NOTE | 2021-11-16 12:53 | P.PN ---
Subjective Patient is seen for follow-up of chronic kidney disease. He has CK D NKF stage IIIB to 4 with baseline creatinine about 1.7-2 mg/dL in August 2021 and as low as 1.2 1.1 in 2019. Etiology is diabetic kidney disease. Recent hospitalization for acute kidney injury and urine retention Patient has underlying cardiomyopathy with ejection fraction 20-25% Admitted with worsening lower extremity wounds this admission. Maintained on antibiotics. Serum creatinine at 2.2-2.1 mg/dL. Serum creatinine had peaked to 4 during the last admission. Started on D5W overnight due to low blood sugars. Insulin and oral hypoglycemic agents currently on hold. Objective - Vital Signs Vital signs: Vital Signs Temp 97.6 F 11/16/21 08:00 Pulse 65 11/16/21 12:34 Resp 16 11/16/21 12:34 BP 125/76 11/16/21 12:34 Pulse Ox 99 11/16/21 12:34 FiO2 Intake & Output 11/15/21 11/16/21 11/16/21 18:59 06:59 18:59 Intake Total 560 Output Total 650 Balance 560 -650 Intake: Oral 560 Output: Urine 650 Other: Voiding Method Toilet Toilet # Voids 2 1 # Bowel Movements 0 - Exam Patient is awake, he is currently in the bathroom. Patient is alert oriented 3 Bilateral lower extremities are wrapped Patient is moving all 4 extremities - Labs CBC & Chem 7: 11/14/21 09:33 11/16/21 06:45 Labs: Abnormal Lab Results - Last 24 Hours (Table) 11/16/21 11/16/21 11/16/21 Range/Units 06:45 06:48 07:15 Sodium 136 L (137-145) mmol/L BUN 34 H (9-20) mg/dL Creatinine 2.17 H (0.66-1.25) mg/dL Glucose 56 L (74-99) mg/dL POC Glucose (mg/dL) 58 L 64 L (70-110) mg/dL Calcium 8.2 L (8.4-10.2) mg/dL Microbiology - Last 24 Hours (Table) 11/14/21 09:33 Blood Culture - Preliminary Blood No Growth after 48 hours 11/14/21 09:33 Blood Culture - Preliminary Blood No Growth after 48 hours Assessment and Plan Assessment: 1. Chronic kidney disease NKF stage IIIB with baseline creatinine about 1.8-2 mg/dL most recently however serum creatinine has been as low as 1.1 and 1.2 in 2020. Etiology is diabetic kidney disease as patient was noted to have proteinuria on his last admission. 2. Left lower extremity wound 3. Chronic DVT of left femoral vein maintained on a liquid 4. Ischemic cardiomyopathy with ejection fraction 20-25% 5. Coronary artery disease with history of coronary stent placement 6. Hypoglycemia started on D5W, insulin and oral hypoglycemic agents currently on hold Plan: Continue current dose of Demadex Monitor vancomycin levels closely given CKD and recent acute kidney injury Repeat labs in a.m. DC D5W once blood sugars stabilize
[2021-11-16] MEDS ORDERED: fentaNYL (PF) 50 MCG/ML 2 ML AMP ONE (13:13)
[2021-11-16] MEDS ORDERED: PROPOFOL 10 MG/ML 20 ML VIAL IV ONE (13:13)
[2021-11-16] MEDS ORDERED: KETAMINE 10 MG/ML 20 ML VIAL ONE (13:13)
[2021-11-16] MEDS ORDERED: MIDAZOLAM 2 MG/2 ML VIAL ONE (13:13)
[2021-11-16 14:14] LABS: Glucose,Whole Blood 68 mg/dL (70-110)
--- NOTE | 2021-11-16 14:15 | P.OP ---
Date of Procedure: 11/16/21 Description of Procedure: Preoperative diagnosis: Nonhealing left lower extremity wounds Postoperative diagnosis: Same Procedure: Sharp excisional debridement left lower extremity #1 medial proximal 8 x 2.5 x 0.7 subcutaneous tissue #2 medial distal 8 x 4 x 0.2 to subcutaneous tissue #3 lateral proximal 3.5 x 2.5 x 0.2 to subcutaneous tissue #4 lateral mid 11 x 5 x 0.2 to subcutaneous tissue #5 lateral distal 2.4 x 1.9 x 0.2 to subcutaneous tissue Surgeon: Fela Rivera D.O. EBL: Less than 5 mL IV fluids: See records Urine output: Not measured Drains: None Complications: None immediately apparent Condition: Stable to recovery Operative indication and findings: Patient is a 66-year-old male with a past medical history including a DVT that caused significant swelling of the left lower extremity. Along with history of multiple other comorbidities. He had some cellulitis of his left lower extremity therefore at this time his chronic nonhealing wounds were asked to be debrided. Risks and benefits were discussed with the patient who seemingly understood and was willing to proceed. Procedure in detail: Patient was taken to the operative suite and placed in supine position. The left lower extremity prepped and draped in usual sterile fashion. A preprocedure timeout was performed, all parties are in agreement. Using the scalpel and curet, but the overlying eschar tissue and fibrinous tissue was debrided. There did not appear to be any pockets of purulent drainage. Some copious swelling in the subcutaneous tissues. Measurements are as above. The lid was cleansed. A dressing was placed the patient was sent to recovery in stable condition having tolerated the procedure well.
[2021-11-16] MEDS ORDERED: HYDROmorphone 0.5 MG/0.5 ML SYRINGE IVP ONE (14:36)
[2021-11-16 14:40] LABS: Glucose,Whole Blood 90 mg/dL (70-110)
--- NOTE | 2021-11-16 16:46 | P.PN ---
Progress Note - Text Progress Note Date: 11/16/21 Chief Complaint: Left leg wounds This is a pleasant 66-year-old patient, follows with Dr. Mike Escobar. Chronic stable medical conditions include CAD with stent, diabetes, hypertension, hyperlipidemia anxiety. CAD, hyperuricemia, left leg DVT in October 2021 Patient was in the hospital recently from October 16 to 10/26/2021, at [facility] Admitted with acute left common femoral relevant DVT. - arterial Doppler done - Dr. Mike found to be normal. No arterial compromise. Denies any nausea vomiting abdominal pain today. Patient noted to have increased LFTs compared to the was done at [facility]. Also had acute ischemic hepatitis, acute kidney injury, also positive blood cultures from [facility] growing streptococcus. [place] to be cholangitis per ID. Patient also had reactive arthritis that actually improved. Patient was discharged on Augmentin. Also started on allopurinol for hyperuricemia. EF was found to be 20-25%. Also acute hypoxic respiratory failure from CHF. Was discharged to rehab Patient now presents from to [facility]. Patient's blood left lower extremity wounds. Inflamed. Pain is present. Appetite is fair. Able to use a walker to walk a few steps. Denies any obvious fever and chills. November 15: Oral intake fair. IV Zosyn. Santyl topically. Encourage increase activity. for wound debridement per vascular. Tomorrow November 16: eating well. IV Zosyn. Santyl topically. Had wound debridement by Doctor Rivera this afternoon Active Medications Acetaminophen (Acetaminophen Tab 325 Mg Tab) 650 mg PO Q6H PRN PRN Reason: Pain or Fever > 100.5 Last Admin: 11/16/21 02:27 Dose: 650 mg Hydrocodone Bitart/Acetaminophen (Hydrocodone/Apap 7.5-325mg 1 Each Tab) 1 each PO Q6H PRN PRN Reason: Pain Last Admin: 11/16/21 04:06 Dose: 1 each Allopurinol (Allopurinol 100 Mg Tab) 100 mg PO DAILY [facility] Last Admin: 11/16/21 09:06 Dose: 100 mg Alprazolam (Alprazolam 0.25 Mg Tab) 0.25 mg PO BID [facility] Last Admin: 11/16/21 09:06 Dose: 0.25 mg Atorvastatin Calcium (Atorvastatin 20 Mg Tab) 20 mg PO HS [facility] Last Admin: 11/15/21 21:40 Dose: 20 mg Calcium Carbonate/Glycine (Calcium Carbonate 500 Mg Chewable) 1,000 mg PO Q4HR PRN PRN Reason: Dyspepsia Cholecalciferol (Cholecalciferol 25 Mcg (1000 Iu) Tablet) 25 mcg PO DAILY [facility] Last Admin: 11/16/21 10:10 Dose: Not Given Collagenase (Collagenase 250 Unit/Gm Ointment 30 Gm Tube) 1 applic TOPICAL DAILY [facility]; Protocol Last Admin: 11/16/21 08:00 Dose: 1 applic Fluoxetine HCl (Fluoxetine Hcl 20 Mg Cap) 20 mg PO DAILY [facility] Last Admin: 11/16/21 09:06 Dose: 20 mg Piperacillin Sod/Tazobactam (Sod 3.375 gm/ Sodium Chloride) 100 mls @ 25 mls/hr IVPB Q8HR [facility]; Protocol Last Admin: 11/16/21 15:19 Dose: 25 mls/hr Dextrose/Water (Dextrose 5%-Water Iv Soln) 1,000 mls @ 75 mls/hr IV .[id number] [facility] Last Admin: 11/16/21 07:28 Dose: 75 mls/hr Insulin Aspart (Insulin Aspart (Novolog) 100 Unit/Ml Vial) 0 unit SQ AC- TID@07,11,1600 [facility]; Protocol Last Admin: 11/16/21 12:04 Dose: Not Given Insulin Aspart (Insulin Aspart (Novolog) 100 Unit/Ml Vial) 3 unit SQ AC- TID@07,11,16 [facility] Last Admin: 11/16/21 12:05 Dose: Not Given Insulin Detemir (Insulin Detemir (Levemir) 100 Unit/Ml Syr) 20 unit SQ [facility] Last Admin: 11/15/21 21:41 Dose: Not Given Lactulose (Lactulose 20 Gm/30 Ml Cup) 20 gm PO DAILY PRN PRN Reason: Constipation Metoprolol Succinate (Metoprolol Succinate (Er) 50 Mg Tab.Er.24h) 50 mg PO BI D@0800,1999 [facility] Last Admin: 11/16/21 09:06 Dose: 50 mg Multi-Ingred Cream/Lotion/Oil/Oint (Hydrophilic Cream 180 Gm Tube) 1 applic TOPICAL DAILY [facility]; Protocol Last Admin: 11/16/21 08:00 Dose: 1 applic Naloxone HCl (Naloxone 0.4 Mg/Ml 1 Ml Vial) 0.2 mg IV Q2M PRN PRN Reason: Opioid Reversal Ondansetron HCl (Ondansetron 4 Mg/2 Ml Vial) 4 mg IVP Q8HR PRN PRN Reason: Nausea And Vomiting Last Admin: 11/16/21 12:55 Dose: 4 mg Spironolactone (Spironolactone 25 Mg Tab) 12.5 mg PO DAILY [facility] Last Admin: 11/16/21 09:06 Dose: 12.5 mg Tamsulosin HCl (Tamsulosin 0.4 Mg Cap.Er.24h) 0.4 mg PO HS [facility] Last Admin: 11/15/21 21:40 Dose: 0.4 mg Temazepam (Temazepam 15 Mg Cap) 15 mg PO HS PRN PRN Reason: Insomnia Torsemide (Torsemide 20 Mg Tab) 60 mg PO DAILY [facility] Last Admin: 11/16/21 09:10 Dose: 60 mg Past medical history to include: CAD with stent, diabetes, hypertension, hyperlipidemia, skin cancer on the nose in August 2020, anxiety, left leg common femoral DVT October 2021, hyperuricemia, hepatic steatosis, CHF EF 20-25% 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 Nonsmoker. Alcohol rarely. Currently at rehab Family history: Diabetes, CAD Physical examination: VITAL SIGNS: 65, 16, 125-76, 99% room air GENERAL: Laying in bed, comfortable EYES: Pupils equal. Conjunctiva normal. HEENT: External appearance of nose and ears normal, oral cavity grossly normal. NECK: JVD not raised; masses not palpable. HEART: First and second heart sounds are normal; some edema. LUNGS: Respiratory rate increased; decreased breath sound . ABDOMEN: Soft, nontender, liver spleen not palpable, no masses palpable. PSYCH: [Alert and oriented x3; mood and affect slightly anxious MUSCULOSKELETAL:No Clubbing/cyanosis;muscles-grossly intact. DERMATOLOGICAL: areas breakdown of skin with wounds on the left lower extremity. EXTREMITIES: Decreased swelling of the left lower extremity, decreased edema INVESTIGATIONS, reviewed in the clinical context: November 15: Sodium 136 potassium 4.6 BUN 36 creatinine 2.14 WBC 7 hemoglobin 10.3 platelets 27 sodium 132 potassium 4.7 BUN 36 creatinine 2.26 CRP 5.7 Previous labs [October 2021] Uric acid 10.7 Felecia 23: Sodium 131 potassium 4.2 BUN 71 creatinine 1.96 2-D echocardiogram: EF 20-25%. Left lower extremity venous Doppler: DVT in the common femoral vein. Gallbladder ultrasound: Gallbladder filled with stones. Possible hepatic steatosis. Arterial Doppler results discussed with Dr. Mike: No evidence of vascular compromise Assessment and plan: -Acute multiple wounds painful left lower extremity likely from venous ulcers from recent DVT. Possible secondary infection: Slow to respond IV Zosyn. Topical Santyl. Wound care. Wound debridement by Dr. Rivera today. -Chronic DVT of the left common femoral vein, in 10/16/2021 eliquis . -Ischemic cardiomyopathy, EF 20-25% Toprol-XL 50 mg twice daily. Aldactone 12.5 mg daily. Demadex -Choledocholithiasis. Asymptomatic -CAD with a history of stent Aspirin 81 mg daily, Lopressor -Diabetes mellitus type 2, chronically on insulin Follow Accu-Cheks and sliding scale insulin. Levemir 20 units at night. 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 Creatinine 1. 96 on 10/26/2021 -Anxiety not otherwise specified Xanax 0.25 mg by mouth twice a day -Hyperuricemia allopurinol 100 mg daily -Full code IV Zosyn. Wound care. Topical Santyl. Today had debridement. Discussed with patient. Discussed with ID. John wrap for swelling
[2021-11-16 16:57] LABS: Glucose,Whole Blood 102 mg/dL (70-110)
[2021-11-16] MEDS: INSULIN DETEMIR (LEVEMIR) 100 UNIT/ML SYR SQ SCH ×2 (22:06→23:00)
[2021-11-16] MEDS: TAMSULOSIN 0.4 MG CAP.ER.24H PO SCH (22:06)
[2021-11-16] MEDS: ATORVASTATIN 20 MG TAB PO SCH (22:06)
[2021-11-16 22:20] LABS: Glucose,Whole Blood 85 mg/dL (70-110)
[2021-11-17] MEDS: HYDROcodone/APAP 7.5-325MG 1 EACH TAB PO PRN ×3 (00:58→17:00)
[2021-11-17 07:07] LABS: Glucose,Whole Blood 81 mg/dL (70-110)
[2021-11-17] MEDS: INSULIN ASPART (NovoLOG) 100 UNIT/ML VIAL SQ SCH ×6 (07:16→17:07)
[2021-11-17] MEDS: FLUoxetine HCL 20 MG CAP PO SCH (08:56)
[2021-11-17] MEDS: METOPROLOL SUCCINATE (ER) 50 MG TAB.ER.24H PO SCH ×2 (08:56→21:54)
[2021-11-17] MEDS: CHOLECALCIFEROL 25 MCG (1000 IU) TABLET PO SCH (08:56)
[2021-11-17] MEDS: ALPRAZolam 0.25 MG TAB PO SCH ×2 (08:56→21:54)
[2021-11-17] MEDS: PIPERACILLIN-TAZOBACTAM 3.375 GM in SODIUM CHLORIDE 0.9% 100 ML IVPB SCH ×2 (08:56→17:00)
[2021-11-17] MEDS: SPIRONOLACTONE 25 MG TAB PO SCH (08:56)
[2021-11-17] MEDS: allopurinoL 100 MG TAB PO SCH (08:56)
[2021-11-17] MEDS: HYDROPHILIC CREAM 180 GM TUBE TOPICAL SCH (08:57)
[2021-11-17] MEDS: COLLAGENASE 250 UNIT/GM OINTMENT 30 GM TUBE TOPICAL SCH (08:57)
[2021-11-17] MEDS: DEXTROSE 5% IN WATER 1,000 ML IV SCH (09:43)
[2021-11-17] MEDS: TORSEMIDE 20 MG TAB PO SCH (09:46)
--- NOTE | 2021-11-17 10:39 | P.PN ---
Subjective Patient is seen for follow-up of chronic kidney disease. He has CK D NKF stage IIIB to 4 with baseline creatinine about 1.7-2 mg/dL in August 2021 and as low as 1.2 1.1 in 2019. Etiology is diabetic kidney disease. Recent hospitalization for acute kidney injury and urine retention Patient has underlying cardiomyopathy with ejection fraction 20-25% Admitted with worsening lower extremity wounds this admission. Maintained on antibiotics. Serum creatinine at 2.2-2.1 mg/dL. Serum creatinine had peaked to 4 during the last admission. Started on D5W overnight due to low blood sugars, now discontinued. Insulin and oral hypoglycemic agents currently on hold. Objective - Vital Signs Vital signs: Vital Signs Temp 98.4 F 11/17/21 08:00 Pulse 60 11/17/21 08:00 Resp 17 11/17/21 08:00 BP 103/67 11/17/21 08:00 Pulse Ox 100 11/17/21 08:00 FiO2 Intake & Output 11/16/21 11/17/21 11/17/21 18:59 06:59 18:59 Intake Total 250 300 Output Total 350 Balance -100 300 Intake: IV 250 Oral 300 Output: Urine 350 Other: Voiding Method Toilet Urinal # Voids 3 1 # Bowel Movements 0 0 - Exam Patient is awake, comfortable not in any acute distress.. Patient is alert oriented 3 Examination of the heart S1 and S2 Examination of the lungs bilateral breath sounds are heard Abdomen is soft nontender Bilateral lower extremities are wrapped Patient is moving all 4 extremities - Labs CBC & Chem 7: 11/14/21 09:33 11/16/21 06:45 Labs: Abnormal Lab Results - Last 24 Hours (Table) 11/16/21 Range/Units 14:13 POC Glucose (mg/dL) 68 L (70-110) mg/dL Microbiology - Last 24 Hours (Table) 11/14/21 09:33 Blood Culture - Preliminary Blood No Growth after 48 hours 11/14/21 09:33 Blood Culture - Preliminary Blood No Growth after 48 hours Assessment and Plan Assessment: 1. Chronic kidney disease NKF stage IIIB with baseline creatinine about 1.8-2 mg/dL most recently however serum creatinine has been as low as 1.1 and 1.2 in 2019. Etiology is diabetic kidney disease as patient was noted to have proteinuria on his last admission. 2. Left lower extremity wound 3. Chronic DVT of left femoral vein maintained on a liquid 4. Ischemic cardiomyopathy with ejection fraction 20-25% 5. Coronary artery disease with history of coronary stent placement 6. Hypoglycemia, status post D5W for a few hours, insulin and oral hypoglycemic agents currently on hold Plan: Continue current dose of Demadex Monitor vancomycin levels closely given CKD and recent acute kidney injury Repeat labs in a.m.
[2021-11-17 11:33] LABS: Glucose,Whole Blood 125 mg/dL (70-110)
--- NOTE | 2021-11-17 12:58 | P.PN ---
Subjective Progress Note Date: 11/17/21 Principal diagnosis: Diabetic ulcers, peripheral arterial disease Patient seen and examined his follow-up. Yesterday he underwent surgical debridement for the left lower extremity diabetic ulcers. Infectious disease is following and he is currently on antibiotics. No acute changes through the night. He's been afebrile. His pain is well controlled. Objective - Vital Signs Vital signs: Vital Signs Temp 98.4 F 11/17/21 08:00 Pulse 60 11/17/21 08:00 Resp 17 11/17/21 08:00 BP 103/67 11/17/21 08:00 Pulse Ox 100 11/17/21 08:00 FiO2 Intake & Output 11/16/21 11/17/21 11/17/21 18:59 06:59 18:59 Intake Total 250 300 Output Total 350 Balance -100 300 Intake: IV 250 Oral 300 Output: Urine 350 Other: Voiding Method Toilet Urinal # Voids 3 1 # Bowel Movements 0 0 - Exam General appearance: The patient is alert, oriented, appears in no acute distress, obese. HET: Head is normocephalic and atraumatic. Pupils are equal and reactive. Neck: Supple without lymphadenopathy. Trachea midline. Extremities: Bilateral palpable femoral pulses. Bilateral lower extremity edema . Right lower extremity with hyperpigmentation. Left lower extremity dressing changed, multiple areas of debridement. Neurological: No focal deficits. Strength and sensation are grossly intact. - Labs CBC & Chem 7: 11/14/21 09:33 11/16/21 06:45 Labs: Abnormal Lab Results - Last 24 Hours (Table) 11/16/21 Range/Units 14:13 POC Glucose (mg/dL) 68 L (70-110) mg/dL Microbiology - Last 24 Hours (Table) 11/14/21 09:33 Blood Culture - Preliminary Blood No Growth after 48 hours 11/14/21 09:33 Blood Culture - Preliminary Blood No Growth after 48 hours Assessment and Plan Assessment: 1. Chronic Diabetic ulcers of the left lower extremity status post surgical debridement 2. Cellulitis of left lower extremity 3. Recent DVT left lower extremity on Eliquis 4. Chronic venous insufficiency 5. Diabetes mellitus 6. Coronary artery disease status post [place], cardiac stents Plan: 1. Continue local wound care 2. Continue antibiotics per recommendations from infectious disease 3. Bilateral compression stockings 4. Continue medical management 5. Patient needs to follow-up with of [facility] wound care [place] post discharge Thank you for this consultation, we will sign off at this time. The impression and plan of care has been dictated as directed. Dr. Mike I performed a history and examination of this patient, discussed the same with the dictator. I agree with the dictator's note ,documented as a scribe. Any additional findings or plans will be noted.
--- NOTE | 2021-11-17 15:28 | P.PN ---
Subjective Progress Note Date: 11/16/21 Principal diagnosis: left lower extremity wound and cellulitis Patient is a 66-year-old male with multiple comorbidity presented to hospital with worsening wound to the left lower extremity and concerning for secondary cellulitis. Patient is scheduled for debridement of the left lower extremity wound by vascular surgery this afternoon On today's evaluation that is 11/16/2021, patient denies remains to be afebrile, patient pain to the left lower extremity has slightly decreased in intensity, the patient denies any chest pain shortness of breath or cough no abdominal pain no diarrhea Objective - Vital Signs Vital signs: Vital Signs Temp 97.6 F 11/16/21 08:00 Pulse 64 11/16/21 08:00 Resp 16 11/16/21 08:00 BP 121/70 11/16/21 08:00 Pulse Ox 97 11/16/21 08:00 FiO2 Intake & Output 11/15/21 11/16/21 11/16/21 18:59 06:59 18:59 Intake Total 560 Output Total 650 Balance 560 -650 Intake: Oral 560 Output: Urine 650 Other: Voiding Method Toilet Toilet # Voids 2 1 # Bowel Movements 0 - Exam GENERAL DESCRIPTION: An elderly male lying in bed in no distress RESPIRATORY SYSTEM: Unlabored breathing , decreased breath sounds at bases HEART: S1 S2 regular rate and rhythm , ABDOMEN: Soft , no tenderness EXTREMITIES: Left lower extremity wound currently dressed and there is no drainage present - Labs CBC & Chem 7: 11/14/21 09:33 11/16/21 06:45 Labs: Abnormal Lab Results - Last 24 Hours (Table) 11/16/21 11/16/21 11/16/21 Range/Units 06:45 06:48 07:15 Sodium 136 L (137-145) mmol/L BUN 34 H (9-20) mg/dL Creatinine 2.17 H (0.66-1.25) mg/dL Glucose 56 L (74-99) mg/dL POC Glucose (mg/dL) 58 L 64 L (70-110) mg/dL Calcium 8.2 L (8.4-10.2) mg/dL Microbiology - Last 24 Hours (Table) 11/14/21 09:33 Blood Culture - Preliminary Blood No Growth after 48 hours 11/14/21 09:33 Blood Culture - Preliminary Blood No Growth after 48 hours Assessment and Plan (1) Diabetic leg ulcer Current Visit: Yes Status: Acute Code(s): E11.622 - TYPE 2 DIABETES MELLITUS WITH OTHER SKIN ULCER; L97.909 - NON-PRS CHRONIC ULC UNSP PRT OF UNSP LOW LEG W UNSP SEVERITY SNOMED Code(s): 220380118 (2) Left leg cellulitis Current Visit: Yes Status: Acute Code(s): L03.116 - CELLULITIS OF LEFT LOWER LIMB SNOMED Code(s): 077171288 Plan: 1ulcers and concern for secondary cellulitis more likely gram-positive skin pollo plus minus gram-negative in view of underlying diabetes patient with left lower extremity ulceration and concern for possible venous/arterial insufficiency in this patient with multiple comorbidity. 2 patient is waiting for surgical debridement and deep culture which is scheduled for this afternoon 3patient continue with Zosyn and local wound care to continue with Santyl followed by moist dressing changes daily Time with Patient: Less than 30
--- NOTE | 2021-11-17 15:30 | P.PN ---
Subjective Progress Note Date: 11/17/21 Principal diagnosis: left lower extremity wound and cellulitis Patient is a 66-year-old male with multiple comorbidity presented to hospital with worsening wound to the left lower extremity and concerning for secondary cellulitis. Patient is status post debridement of the left lower extremity wound by vascular surgery on 11/16/2021 On today's evaluation that is 11/17/2021, patient remains to be afebrile, patient denies any worsening pain to the left lower extremity, the patient denies any chest pain shortness of breath or cough, the patient denies abdominal pain no diarrhea Objective - Vital Signs Vital signs: Vital Signs Temp 98.4 F 11/17/21 08:00 Pulse 60 11/17/21 08:00 Resp 17 11/17/21 08:00 BP 103/67 11/17/21 08:00 Pulse Ox 100 11/17/21 08:00 FiO2 Intake & Output 11/16/21 11/17/21 11/17/21 18:59 06:59 18:59 Intake Total 250 300 Output Total 350 Balance -100 300 Intake: IV 250 Oral 300 Output: Urine 350 Other: Voiding Method Toilet Urinal # Voids 3 1 # Bowel Movements 0 0 - Exam GENERAL DESCRIPTION: An elderly male lying in bed in no distress RESPIRATORY SYSTEM: Unlabored breathing , decreased breath sounds at bases HEART: S1 S2 regular rate and rhythm , ABDOMEN: Soft , no tenderness EXTREMITIES: Left lower extremity wound dressing change was done by the nurses this morning hence wound could not be evaluated - Labs CBC & Chem 7: 11/14/21 09:33 11/16/21 06:45 Labs: Abnormal Lab Results - Last 24 Hours (Table) 11/16/21 11/17/21 Range/Units 14:13 11:31 POC Glucose (mg/dL) 68 L 125 H (70-110) mg/dL Microbiology - Last 24 Hours (Table) 11/14/21 09:33 Blood Culture - Preliminary Blood No Growth after 48 hours 11/14/21 09:33 Blood Culture - Preliminary Blood No Growth after 48 hours Assessment and Plan (1) Diabetic leg ulcer Current Visit: Yes Status: Acute Code(s): E11.622 - TYPE 2 DIABETES MELLITUS WITH OTHER SKIN ULCER; L97.909 - NON-PRS CHRONIC ULC UNSP PRT OF UNSP LOW LEG W UNSP SEVERITY SNOMED Code(s): 872099143 (2) Left leg cellulitis Current Visit: Yes Status: Acute Code(s): L03.116 - CELLULITIS OF LEFT LOWER LIMB SNOMED Code(s): 091541084 Plan: 1ulcers and concern for secondary cellulitis more likely gram-positive skin pollo plus minus gram-negative in view of underlying diabetes patient with left lower extremity ulceration and concern for possible venous/arterial insufficiency in this patient with multiple comorbidity. 2 patient is status post surgical debridement completed on 11/16/2021, not very clear if the culture were done or not we'll try to confirm with the micro-lab 3for now the patient will continue with Zosyn and local wound care to continue with Santyl followed by moist dressing changes daily, we'll reevaluate the wound tomorrow to determine the need for further antibiotic therapy if no culture were done Time with Patient: Less than 30
--- NOTE | 2021-11-17 15:42 | P.PN ---
Progress Note - Text Progress Note Date: 11/17/21 Chief Complaint: Left leg wounds This is a pleasant 66-year-old patient, follows with Dr. Mike Escobar. Chronic stable medical conditions include CAD with stent, diabetes, hypertension, hyperlipidemia anxiety. CAD, hyperuricemia, left leg DVT in October 2021 Patient was in the hospital recently from October 16 to 10/26/2021, at [facility] Admitted with acute left common femoral relevant DVT. - arterial Doppler done - Dr. Mike found to be normal. No arterial compromise. Denies any nausea vomiting abdominal pain today. Patient noted to have increased LFTs compared to the was done at [facility]. Also had acute ischemic hepatitis, acute kidney injury, also positive blood cultures from [facility] growing streptococcus. [place] to be cholangitis per ID. Patient also had reactive arthritis that actually improved. Patient was discharged on Augmentin. Also started on allopurinol for hyperuricemia. EF was found to be 20-25%. Also acute hypoxic respiratory failure from CHF. Was discharged to rehab Patient now presents from to [facility]. Patient's blood left lower extremity wounds. Inflamed. Pain is present. Appetite is fair. Able to use a walker to walk a few steps. Denies any obvious fever and chills. November 15: Oral intake fair. IV Zosyn. Santyl topically. Encourage increase activity. for wound debridement per vascular. Tomorrow November 16: eating well. IV Zosyn. Santyl topically. Had wound debridement by Doctor Rivera this afternoon November 17: Oral intake fair. . IV Zosyn. Discussed with patient. Cultures were sent today. Apparently none was sent yesterday. Active Medications Acetaminophen (Acetaminophen Tab 325 Mg Tab) 650 mg PO Q6H PRN PRN Reason: Pain or Fever > 100.5 Last Admin: 11/16/21 23:06 Dose: 650 mg Hydrocodone Bitart/Acetaminophen (Hydrocodone/Apap 7.5-325mg 1 Each Tab) 1 each PO Q6H PRN PRN Reason: Pain Last Admin: 11/17/21 10:56 Dose: 1 each Allopurinol (Allopurinol 100 Mg Tab) 100 mg PO DAILY [facility] Last Admin: 11/17/21 08:56 Dose: 100 mg Alprazolam (Alprazolam 0.25 Mg Tab) 0.25 mg PO BID [facility] Last Admin: 11/17/21 08:56 Dose: 0.25 mg Atorvastatin Calcium (Atorvastatin 20 Mg Tab) 20 mg PO HS [facility] Last Admin: 11/16/21 22:06 Dose: 20 mg Calcium Carbonate/Glycine (Calcium Carbonate 500 Mg Chewable) 1,000 mg PO Q4HR PRN PRN Reason: Dyspepsia Cholecalciferol (Cholecalciferol 25 Mcg (1000 Iu) Tablet) 25 mcg PO DAILY [facility] Last Admin: 11/17/21 08:56 Dose: 25 mcg Collagenase (Collagenase 250 Unit/Gm Ointment 30 Gm Tube) 1 applic TOPICAL DAILY [facility]; Protocol Last Admin: 11/17/21 08:57 Dose: 1 applic Fluoxetine HCl (Fluoxetine Hcl 20 Mg Cap) 20 mg PO DAILY [facility] Last Admin: 11/17/21 08:56 Dose: 20 mg Piperacillin Sod/Tazobactam (Sod 3.375 gm/ Sodium Chloride) 100 mls @ 25 mls/hr IVPB Q8HR [facility]; Protocol Last Admin: 11/17/21 08:56 Dose: 25 mls/hr Dextrose/Water (Dextrose 5%-Water Iv Soln) 1,000 mls @ 75 mls/hr IV .[id number] [facility] Last Admin: 11/17/21 09:43 Dose: Not Given Insulin Aspart (Insulin Aspart (Novolog) 100 Unit/Ml Vial) 0 unit SQ AC- TID@07,11,1600 [facility]; Protocol Last Admin: 11/17/21 12:01 Dose: Not Given Insulin Aspart (Insulin Aspart (Novolog) 100 Unit/Ml Vial) 3 unit SQ AC- TID@07,11,16 [facility] Last Admin: 11/17/21 12:05 Dose: 3 unit Insulin Detemir (Insulin Detemir (Levemir) 100 Unit/Ml Syr) 20 unit SQ [facility] Last Admin: 11/16/21 23:00 Dose: Not Given Lactulose (Lactulose 20 Gm/30 Ml Cup) 20 gm PO DAILY PRN PRN Reason: Constipation Metoprolol Succinate (Metoprolol Succinate (Er) 50 Mg Tab.Er.24h) 50 mg PO BID@0800,2000 [facility] Last Admin: 11/17/21 08:56 Dose: 50 mg Multi-Ingred Cream/Lotion/Oil/Oint (Hydrophilic Cream 180 Gm Tube) 1 applic TOPICAL DAILY [facility]; Protocol Last Admin: 11/17/21 08:57 Dose: 1 applic Naloxone HCl (Naloxone 0.4 Mg/Ml 1 Ml Vial) 0.2 mg IV Q2M PRN PRN Reason: Opioid Reversal Ondansetron HCl (Ondansetron 4 Mg/2 Ml Vial) 4 mg IVP Q8HR PRN PRN Reason: Nausea And Vomiting Last Admin: 11/16/21 12:55 Dose: 4 mg Spironolactone (Spironolactone 25 Mg Tab) 12.5 mg PO DAILY [facility] Last Admin: 11/17/21 08:56 Dose: 12.5 mg Tamsulosin HCl (Tamsulosin 0.4 Mg Cap.Er.24h) 0.4 mg PO HS [facility] Last Admin: 11/16/21 22:06 Dose: 0.4 mg Temazepam (Temazepam 15 Mg Cap) 15 mg PO HS PRN PRN Reason: Insomnia Torsemide (Torsemide 20 Mg Tab) 60 mg PO DAILY [facility] Last Admin: 11/17/21 09:46 Dose: 60 mg Past medical history to include: CAD with stent, diabetes, hypertension, hyperlipidemia, skin cancer on the nose in August 2020, anxiety, left leg common femoral DVT October 2021, hyperuricemia, hepatic steatosis, CHF EF 20-25% 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 Conjunctiva normal. HEENT: External appearance of nose and ears normal, oral cavity grossly normal. NECK: JVD not raised; masses not palpable. HEART: First and second heart sounds are normal; some edema. LUNGS: Respiratory rate increased; decreased breath sound . ABDOMEN: Soft, nontender, liver spleen not palpable, no masses palpable. PSYCH: [Alert and oriented x3; mood and affect slightly anxious DERMATOLOGICAL: areas breakdown of skin with wounds on the left lower extremity. INVESTIGATIONS, reviewed in the clinical context: November 15: Sodium 136 potassium 4.6 BUN 36 creatinine 2.14 WBC 7 hemoglobin 10.3 platelets 27 sodium 132 potassium 4.7 BUN 36 creatinine 2.26 CRP 5.7 Previous labs [October 2021] Uric acid 10.7 October 26: Sodium 131 potassium 4.2 BUN 71 creatinine 1.96 2-D echocardiogram: EF 20-25%. Left lower extremity venous Doppler: DVT in the common femoral vein. Gallbladder ultrasound: Gallbladder filled with stones. Possible hepatic steatosis. Arterial Doppler results discussed with Dr. Mike: No evidence of vascular compromise Assessment and plan: -Acute multiple wounds painful left lower extremity likely from venous ulcers from recent DVT. Possible secondary infection: Slow to respond IV Zosyn. Topical Santyl. Wound care. Wound debridement by Dr. Rivera . Cultures pending -Chronic DVT of the left common femoral vein, in 10/16/2021 eliquis . -Ischemic cardiomyopathy, EF 20-25% Toprol-XL 50 mg twice daily. Aldactone 12.5 mg daily. Demadex -Choledocholithiasis. Asymptomatic -CAD with a history of stent Aspirin 81 mg daily, Lopressor -Diabetes mellitus type 2, chronically on insulin Follow Accu-Cheks and sliding scale insulin. Levemir 20 units at night. 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 Creatinine 1. 96 on 10/26/2021 -Anxiety not otherwise specified Xanax 0.25 mg by mouth twice a day -Hyperuricemia allopurinol 100 mg daily -Full code IV Zosyn. Wound care. Topical Santyl. Today had debridement. Cultures sent today.. Discussed with ID. Other medications to continue.
[2021-11-17 16:34] LABS: Glucose,Whole Blood 159 mg/dL (70-110)
[2021-11-17 20:49] LABS: Glucose,Whole Blood 144 mg/dL (70-110)
[2021-11-17] MEDS: ATORVASTATIN 20 MG TAB PO SCH (21:54)
[2021-11-17] MEDS: INSULIN DETEMIR (LEVEMIR) 100 UNIT/ML SYR SQ SCH (21:54)
[2021-11-17] MEDS: TAMSULOSIN 0.4 MG CAP.ER.24H PO SCH (21:54)
[2021-11-18] MEDS: PIPERACILLIN-TAZOBACTAM 3.375 GM in SODIUM CHLORIDE 0.9% 100 ML IVPB SCH ×3 (01:09→15:53)
[2021-11-18] MEDS: HYDROcodone/APAP 7.5-325MG 1 EACH TAB PO PRN ×3 (01:37→21:22)
[2021-11-18] MEDS: ACETAMINOPHEN TAB 325 MG TAB PO PRN (06:25)
[2021-11-18 06:49] LABS: Glucose,Whole Blood 68 mg/dL (70-110)
[2021-11-18 07:09] LABS: Glucose,Whole Blood 73 mg/dL (70-110)
[2021-11-18] MEDS: INSULIN ASPART (NovoLOG) 100 UNIT/ML VIAL SQ SCH ×6 (07:51→16:00)
[2021-11-18] MEDS: ALPRAZolam 0.25 MG TAB PO SCH ×2 (08:10→21:22)
[2021-11-18] MEDS: SPIRONOLACTONE 25 MG TAB PO SCH (08:10)
[2021-11-18] MEDS: TORSEMIDE 20 MG TAB PO SCH (08:11)
[2021-11-18] MEDS: FLUoxetine HCL 20 MG CAP PO SCH (08:11)
[2021-11-18] MEDS: METOPROLOL SUCCINATE (ER) 50 MG TAB.ER.24H PO SCH ×2 (08:11→21:22)
[2021-11-18] MEDS: allopurinoL 100 MG TAB PO SCH (08:11)
[2021-11-18] MEDS: CHOLECALCIFEROL 25 MCG (1000 IU) TABLET PO SCH (08:11)
[2021-11-18] MEDS: COLLAGENASE 250 UNIT/GM OINTMENT 30 GM TUBE TOPICAL SCH (08:12)
[2021-11-18] MEDS: HYDROPHILIC CREAM 180 GM TUBE TOPICAL SCH (08:12)
--- NOTE | 2021-11-18 09:29 | P.PN ---
Subjective Progress Note Date: 11/18/21 Principal diagnosis: Patient is followed up for acute kidney injury secondary to cardiorenal syndrome, on Demadex with improving creatinine is slowly improving appetite is good no nausea vomiting diarrhea no dizziness is able to walk with the help of walker slowly. Vital signs are stable although blood pressure sometimes is low in the 90s, urine output is not documented this morning. Intake is 950 mL. Creatinine is slowly coming down from 2.26-2.1 and 2.1 this morning. Baseline creatinine is 1.23 as of 05/08/2019, and 1.7 as of 08/25/2021, urinalysis shows 3+ proteinuria not quantified. History of present illness This is a 66-year-old male presents emergency Department from [facility] for infected leg wounds. Patient was admitted over a month ago for peripheral vascular disease. Patient has increasing sores, purulent drainage and erythema of his leg patient states he may be on antibiotics but is unsure. Patient has a known diabetic. Patient states she's having increasing discomfort of his legs in addition to the infection. Objective - Vital Signs Vital signs: Vital Signs Temp 98.6 F 11/18/21 01:57 Pulse 53 L 11/18/21 08:00 Resp 18 11/18/21 08:00 BP 106/72 11/18/21 08:00 Pulse Ox 92 L 11/18/21 08:00 FiO2 Intake & Output 11/17/21 11/18/21 11/18/21 18:59 06:59 18:59 Intake Total 750 200 Balance 750 200 Intake: Oral 750 200 Other: Voiding Method Toilet Toilet Urinal Urinal # Voids 3 3 # Bowel Movements 2 1 On examination is awake alert oriented generalized weakness able to walk with a walker slowly. No JVP noted neck is supple no facial asymmetry Lungs clear to auscultation good air entry bilaterally Heart sounds unremarkable for any murmur rub gallop he is in atrial fibrillation Abdomen soft nontender Extremity exam was, chronic edema mild to minimal currently and the wounds on his left lower extremities Neurologically awake alert oriented - Labs CBC & Chem 7: 11/14/21 09:33 11/16/21 06:45 Labs: Abnormal Lab Results - Last 24 Hours (Table) 11/17/21 11/17/21 11/17/21 Range/Units 11:31 16:33 20:47 POC Glucose (mg/dL) 125 H 159 H 144 H (70-110) mg/dL 11/18/21 Range/Units 06:48 POC Glucose (mg/dL) 68 L (70-110) mg/dL Microbiology - Last 24 Hours (Table) 11/17/21 12:45 Wound Culture - Preliminary Leg - Left 11/17/21 12:45 Anaerobic Culture - Preliminary Leg - Left 11/14/21 09:33 Blood Culture - Preliminary Blood No Growth after 72 hours 11/14/21 09:33 Blood Culture - Preliminary Blood No Growth after 72 hours Assessment and Plan Assessment: Impression 1. Acute kidney injury secondary to cardiorenal syndrome on Demadex improving 2. Chronic kidney disease likely diabetic nephropathy. Baseline creatinine is 1.7 as of August 2021 to 3+ proteinuria not quantified. 3. Coronary myopathy ejection fraction 25%. Currently compensated pulmonary e nena 4. Admitted with left leg wounds on vancomycin 5. Anemia hemoglobin is 10.3. Recommendation 1. Reduce torsemide to 20 mg a day currently on 60 mg a day. 2. Check iron saturation 3. Maintain spironolactone. 4. Maintain metoprolol because of the atrial fibrillation 5. Will follow up with labs
[2021-11-18 11:20] LABS: Glucose,Whole Blood 131 mg/dL (70-110)
--- NOTE | 2021-11-18 14:57 | P.PN ---
Progress Note - Text Progress Note Date: 11/18/21 Chief Complaint: Left leg wounds This is a pleasant 66-year-old patient, follows with Dr. Mike Escobar. Chronic stable medical conditions include CAD with stent, diabetes, hypertension, hyperlipidemia anxiety. CAD, hyperuricemia, left leg DVT in October 2021 Patient was in the hospital recently from October 16 to 10/26/2021, at [facility] Admitted with acute left common femoral relevant DVT. - arterial Doppler done - Dr. Mike found to be normal. No arterial compromise. Denies any nausea vomiting abdominal pain today. Patient noted to have increased LFTs compared to the was done at [facility]. Also had acute ischemic hepatitis, acute kidney injury, also positive blood cultures from [facility] growing streptococcus. [place] to be cholangitis per ID. Patient also had reactive arthritis that actually improved. Patient was discharged on Augmentin. Also started on allopurinol for hyperuricemia. EF was found to be 20-25%. Also acute hypoxic respiratory failure from CHF. Was discharged to rehab Patient now presents from to [facility]. Patient's blood left lower extremity wounds. Inflamed. Pain is present. Appetite is fair. Able to use a walker to walk a few steps. Denies any obvious fever and chills. November 15: Oral intake fair. IV Zosyn. Santyl topically. Encourage increase activity. for wound debridement per vascular. Tomorrow November 16: eating well. IV Zosyn. Santyl topically. Had wound debridement by Doctor Rivera this afternoon November 17: Oral intake fair. . IV Zosyn. Discussed with patient. Cultures were sent today. Apparently none was sent yesterday. November 18: Local wound care to continue. Cultures pending. IV Zosyn. Blood cultures have been negative. Oral intake fair Active Medications Acetaminophen (Acetaminophen Tab 325 Mg Tab) 650 mg PO Q6H PRN PRN Reason: Pain or Fever > 100.5 Last Admin: 11/18/21 06:25 Dose: 650 mg Hydrocodone Bitart/Acetaminophen (Hydrocodone/Apap 7.5-325mg 1 Each Tab) 1 each PO Q6H PRN PRN Reason: Pain Last Admin: 11/18/21 11:07 Dose: 1 each Allopurinol (Allopurinol 100 Mg Tab) 100 mg PO DAILY [facility] Last Admin: 11/18/21 08:11 Dose: 100 mg Alprazolam (Alprazolam 0.25 Mg Tab) 0.25 mg PO BID [facility] Last Admin: 11/18/21 08:10 Dose: 0.25 mg Atorvastatin Calcium (Atorvastatin 20 Mg Tab) 20 mg PO [facility] Last Admin: 11/17/21 21:54 Dose: 20 mg Calcium Carbonate/Glycine (Calcium Carbonate 500 Mg Chewable) 1,000 mg PO Q4HR PRN PRN Reason: Dyspepsia Cholecalciferol (Cholecalciferol 25 Mcg (1000 Iu) Tablet) 25 mcg PO DAILY [facility] Last Admin: 11/18/21 08:11 Dose: 25 mcg Collagenase (Collagenase 250 Unit/Gm Ointment 30 Gm Tube) 1 applic TOPICAL DAILY [facility]; Protocol Last Admin: 11/18/21 08:12 Dose: 1 applic Fluoxetine HCl (Fluoxetine Hcl 20 Mg Cap) 20 mg PO DAILY [facility] Last Admin: 11/18/21 08:11 Dose: 20 mg Piperacillin Sod/Tazobactam (Sod 3.375 gm/ Sodium Chloride) 100 mls @ 25 mls/hr IVPB Q8HR [facility]; Protocol Last Admin: 11/18/21 08:09 Dose: 25 mls/hr Insulin Aspart (Insulin Aspart (Novolog) 100 Unit/Ml Vial) 0 unit SQ AC- TID@07,,1600 [facility]; Protocol Last Admin: 11/18/21 11:19 Dose: Not Given Insulin Aspart (Insulin Aspart (Novolog) 100 Unit/Ml Vial) 3 unit SQ AC- TID@07,11,16 [facility] Last Admin: 11/18/21 11:20 Dose: Not Given Insulin Detemir (Insulin Detemir (Levemir) 100 Unit/Ml Syr) 20 unit SQ [facility] Last Admin: 11/17/21 21:54 Dose: 20 unit Lactulose (Lactulose 20 Gm/30 Ml Cup) 20 gm PO DAILY PRN PRN Reason: Constipation Metoprolol Succinate (Metoprolol Succinate (Er) 50 Mg Tab.Er.24h) 50 mg PO BID@0800,2000 [facility] Last Admin: 11/18/21 08:11 Dose: 50 mg Multi-Ingred Cream/Lotion/Oil/Oint (Hydrophilic Cream 180 Gm Tube) 1 applic TOPICAL DAILY [facility]; Protocol Last Admin: 11/18/21 08:12 Dose: 1 applic Naloxone HCl (Naloxone 0.4 Mg/Ml 1 Ml Vial) 0.2 mg IV Q2M PRN PRN Reason: Opioid Reversal Ondansetron HCl (Ondansetron 4 Mg/2 Ml Vial) 4 mg IVP Q8HR PRN PRN Reason: Nausea And Vomiting Last Admin: 11/16/21 12:55 Dose: 4 mg Spironolactone (Spironolactone 25 Mg Tab) 12.5 mg PO DAILY [facility] Last Admin: 11/18/21 08:10 Dose: 12.5 mg Tamsulosin HCl (Tamsulosin 0.4 Mg Cap.Er.24h) 0.4 mg PO HS [facility] Last Admin: 11/17/21 21:54 Dose: 0.4 mg Temazepam (Temazepam 15 Mg Cap) 15 mg PO HS PRN PRN Reason: Insomnia Torsemide (Torsemide 20 Mg Tab) 20 mg PO DAILY [facility] Past medical history to include: CAD with stent, diabetes, hypertension, hyperlipidemia, skin cancer on the nose in August 2020, anxiety, left leg common femoral DVT October 2021, hyperuricemia, hepatic steatosis, CHF EF 20-25% 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 Conjunctiva normal. HEENT: External appearance of nose and ears normal, oral cavity grossly normal. NECK: JVD not raised; masses not palpable. HEART: First and second heart sounds are normal; some edema. LUNGS: Respiratory rate increased; decreased breath sound . ABDOMEN: Soft, nontender, liver spleen not palpable, no masses palpable. PSYCH: [Alert and oriented x3; mood and affect slightly anxious DERMATOLOGICAL: areas breakdown of skin with wounds on the left lower extremity. dressing INVESTIGATIONS, reviewed in the clinical context: November 15: Sodium 136 potassium 4.6 BUN 36 creatinine 2.14 WBC 7 hemoglobin 10.3 platelets 27 sodium 132 potassium 4.7 BUN 36 creatinine 2.26 CRP 5.7 Previous labs [October 2021] Uric acid 10.7 October 26: Sodium 131 potassium 4.2 BUN 71 creatinine 1.96 2-D echocardiogram: EF 20-25%. Left lower extremity venous Doppler: DVT in the common femoral vein. Gallbladder ultrasound: Gallbladder filled with stones. Possible hepatic steatosis. Arterial Doppler results discussed with Dr. Mike: No evidence of vascular compromise Assessment and plan: -Acute multiple wounds painful left lower extremity likely from venous ulcers from recent DVT. Possible secondary infection: Slow to respond IV Zosyn. Topical Santyl. Wound care. Wound debridement by Dr. Rivera . Cultures pending -Chronic DVT of the left common femoral vein, in 10/16/2021 eliquis . -Ischemic cardiomyopathy, EF 20-25% Toprol-XL 50 mg twice daily. Aldactone 12.5 mg daily. Demadex -Choledocholithiasis. Asymptomatic -CAD with a history of stent Aspirin 81 mg daily, Lopressor -Diabetes mellitus type 2, chronically on insulin Follow Accu-Cheks and sliding scale insulin. Levemir 12 units at night. 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 Creatinine 1. 96 on 10/26/2021 -Anxiety not otherwise specified Xanax 0.25 mg by mouth twice a day -Hyperuricemia allopurinol 100 mg daily -Full code IV Zosyn. Wound care. Topical Santyl. Cutback dose of Levemir. Pending culture results
[2021-11-18 15:59] LABS: Glucose,Whole Blood 132 mg/dL (70-110)
[2021-11-18 21:02] LABS: Glucose,Whole Blood 114 mg/dL (70-110)
[2021-11-18] MEDS: TAMSULOSIN 0.4 MG CAP.ER.24H PO SCH (21:22)
[2021-11-18] MEDS: ATORVASTATIN 20 MG TAB PO SCH (21:22)
[2021-11-19] MEDS: INSULIN DETEMIR (LEVEMIR) 100 UNIT/ML SYR SQ SCH ×2 (00:41→20:47)
[2021-11-19] MEDS: PIPERACILLIN-TAZOBACTAM 3.375 GM in SODIUM CHLORIDE 0.9% 100 ML IVPB SCH ×3 (00:41→16:40)
--- NOTE | 2021-11-19 01:39 | P.PN ---
Subjective Progress Note Date: 11/18/21 Principal diagnosis: left lower extremity wound and cellulitis Patient is a 66-year-old male with multiple comorbidity presented to hospital with worsening wound to the left lower extremity and concerning for secondary cellulitis. Patient is status post debridement of the left lower extremity wound by vascular surgery on 11/16/2021 On today's evaluation that is 11/18/2021, patient continues to be afebrile, patient pain to the left lower extremity is currently controlled, the patient denies any chest pain shortness of breath or cough, the patient denies abdominal pain no diarrhea Objective - Vital Signs Vital signs: Vital Signs Temp 98.6 F 11/18/21 01:57 Pulse 53 L 11/18/21 08:00 Resp 18 11/18/21 08:00 BP 106/72 11/18/21 08:00 Pulse Ox 92 L 11/18/21 08:00 FiO2 Intake & Output 11/17/21 11/18/21 11/18/21 18:59 06:59 18:59 Intake Total 750 200 Balance 750 200 Intake: Oral 750 200 Other: Voiding Method Toilet Toilet Urinal Urinal # Voids 3 3 # Bowel Movements 2 1 - Exam GENERAL DESCRIPTION: An elderly male lying in bed in no distress RESPIRATORY SYSTEM: Unlabored breathing , decreased breath sounds at bases HEART: S1 S2 regular rate and rhythm , ABDOMEN: Soft , no tenderness EXTREMITIES: Left lower extremity wound currently dressed minimal drainage on the dressing - Labs CBC & Chem 7: 11/14/21 09:33 11/16/21 06:45 Labs: Abnormal Lab Results - Last 24 Hours (Table) 11/17/21 11/17/21 11/18/21 Range/Units 16:33 20:47 06:48 POC Glucose (mg/dL) 159 H 144 H 68 L (70-110) mg/dL 11/18/21 Range/Units 11:17 POC Glucose (mg/dL) 131 H (70-110) mg/dL Microbiology - Last 24 Hours (Table) 11/14/21 09:33 Blood Culture - Preliminary Blood No Growth after 96 hours 11/14/21 09:33 Blood Culture - Preliminary Blood No Growth after 96 hours 11/17/21 12:45 Gram Stain - Preliminary Leg - Left Wound Culture - Preliminary 11/17/21 12:45 Anaerobic Culture - Preliminary Leg - Left Assessment and Plan (1) Left leg cellulitis Current Visit: Yes Status: Acute Code(s): L03.116 - CELLULITIS OF LEFT LOWER LIMB SNOMED Code(s): 329966331 (2) Diabetic leg ulcer Current Visit: Yes Status: Acute Code(s): E11.622 - TYPE 2 DIABETES MELLITUS WITH OTHER SKIN ULCER; L97.909 - NON-PRS CHRONIC ULC UNSP PRT OF UNSP LOW LEG W UNSP SEVERITY SNOMED Code(s): 012464766 Plan: 1ulcers and concern for secondary cellulitis more likely gram-positive skin ashley ra plus minus gram-negative in view of underlying diabetes patient with left lower extremity ulceration and concern for possible venous/arterial insufficiency in this patient with multiple comorbidity. 2 patient is status post surgical debridement completed on 11/16/2021, local cultures are currently growing gram-negative 3 patient will continue with Zosyn while waiting for cultures to finalize and local wound care to continue with Santyl followed by moist dressing to be changed daily Time with Patient: Less than 30
[2021-11-19] MEDS: HYDROcodone/APAP 7.5-325MG 1 EACH TAB PO PRN ×4 (02:38→20:44)
[2021-11-19 07:01] LABS: Glucose,Whole Blood 148 mg/dL (70-110)
[2021-11-19] MEDS: INSULIN ASPART (NovoLOG) 100 UNIT/ML VIAL SQ SCH ×6 (08:23→16:33)
[2021-11-19] MEDS: SPIRONOLACTONE 25 MG TAB PO SCH (08:24)
[2021-11-19] MEDS: ALPRAZolam 0.25 MG TAB PO SCH ×2 (08:24→20:44)
[2021-11-19] MEDS: METOPROLOL SUCCINATE (ER) 50 MG TAB.ER.24H PO SCH ×2 (08:24→20:44)
[2021-11-19] MEDS: FLUoxetine HCL 20 MG CAP PO SCH (08:24)
[2021-11-19] MEDS: allopurinoL 100 MG TAB PO SCH (08:24)
[2021-11-19] MEDS: CHOLECALCIFEROL 25 MCG (1000 IU) TABLET PO SCH (08:24)
[2021-11-19] MEDS: COLLAGENASE 250 UNIT/GM OINTMENT 30 GM TUBE TOPICAL SCH (08:25)
[2021-11-19] MEDS: TORSEMIDE 20 MG TAB PO SCH (08:26)
--- NOTE | 2021-11-19 08:54 | P.PN ---
Subjective Progress Note Date: 11/19/21 Principal diagnosis: Patient is followed up for acute kidney injury secondary to cardiorenal syndrome, on Demadex with improving creatinine. He is slowly improving subjectively appetite is good no nausea vomiting diarrhea no dizziness is able to walk with the help of walker slowly. His leg wounds for which she was admitted continued to ooze. Vital signs are stable although blood pressure sometimes is low in the 90s, urine output is not documented this morning. Intake is 950 mL. Creatinine is slowly coming down from 2.26-2.1 and 2.1 this morning. Baseline creatinine is 1.23 as of 05/08/2019, and 1.7 as of 08/25/2021, urinalysis shows 3+ proteinuria not quantified. History of present illness: This is a 66-year-old male presents emergency Department from [facility] for infected leg wounds. Patient was admitted over a month ago for peripheral vascular disease. Patient has increasing sores, purulent drainage and erythema of his leg patient states he may be on antibiotics but is unsure. Patient has a known diabetic. Patient states she's having increasing discomfort of his legs in addition to the infection. Objective - Vital Signs Vital signs: Vital Signs Temp 97.6 F 11/19/21 07:45 Pulse 64 11/19/21 07:45 Resp 17 11/19/21 07:45 BP 121/74 11/19/21 07:45 Pulse Ox 93 L 11/19/21 07:45 FiO2 Intake & Output 11/18/21 11/19/21 11/19/21 18:59 06:59 18:59 Intake Total 100 Output Total 1000 Balance -900 Intake: Intake, IV Titration 100 Amount Piperacillin-Tazobactam 3 100 .375 gm In Sodium Chloride 0.9% 100 ml @ 25 mls/hr IVPB Q8HR [facility] Rx# :[id number] Output: Urine 1000 Other: Voiding Method Toilet Toilet Urinal # Voids 2 5 On examination is awake alert and alert oriented. HEENT exam no JVP neck is supple no facial asymmetry Lungs are clear to auscultation good air entry bilaterally Heart sounds unremarkable for any murmur rub gallop Abdomen soft nontender Extremity exam was minimal edema The dressing on his leg wounds is oozing. Neurologically awake alert oriented but weak - Labs CBC & Chem 7: 11/14/21 09:33 11/16/21 06:45 Labs: Abnormal Lab Results - Last 24 Hours (Table) 11/18/21 11/18/21 11/18/21 Range/Units 11:17 15:57 21:00 POC Glucose (mg/dL) 131 H 132 H 114 H (70-110) mg/dL 11/19/21 Range/Units 07:00 POC Glucose (mg/dL) 148 H (70-110) mg/dL Microbiology - Last 24 Hours (Table) 11/17/21 12:45 Gram Stain - Preliminary Leg - Left Wound Culture - Preliminary Gram Neg Bacilli 11/14/21 09:33 Blood Culture - Preliminary Blood No Growth after 96 hours 11/14/21 09:33 Blood Culture - Preliminary Blood No Growth after 96 hours Assessment and Plan Assessment: Impression 1. Acute kidney injury secondary to cardiorenal syndrome on Demadex improving. Last creatinine is improved to 2.1 on 11/16/2021 from a previous creatinine of 2.26. today's labs are pending 2. Chronic kidney disease likely diabetic nephropathy. Baseline creatinine is 1.7 as of August 2021 to 3+ proteinuria not quantified. 3. Cardiomyopathy ejection fraction 25%. Currently compensated pulmonary edema 4. Admitted with left leg wounds on vancomycin 5. Anemia hemoglobin is 10.3. On 11/14/2021 Recommendation 1. Continue torsemide to 20 mg a day.. 2. Check iron saturation, results are pending 3. Maintain spironolactone. 4. Maintain metoprolol because of the atrial fibrillation 5. Will follow up with labs
[2021-11-19] MEDS: HYDROPHILIC CREAM 180 GM TUBE TOPICAL SCH (09:56)
[2021-11-19 10:21] LABS: % Iron Saturation 14.63 (15.00-50.00)
--- NOTE | 2021-11-19 11:15 | P.PN ---
Progress Note - Text Progress Note Date: 11/19/21 Chief Complaint: Left leg wounds This is a pleasant 66-year-old patient, follows with Dr. Mike Escobar. Chronic stable medical conditions include CAD with stent, diabetes, hypertension, hyperlipidemia anxiety. CAD, hyperuricemia, left leg DVT in October 2021 Patient was in the hospital recently from October 16 to 10/26/2021, at [facility] Admitted with acute left common femoral relevant DVT. - arterial Doppler done - Dr. Mike found to be normal. No arterial compromise. Denies any nausea vomiting abdominal pain today. Patient noted to have increased LFTs compared to the was done at [facility]. Also had acute ischemic hepatitis, acute kidney injury, also positive blood cultures from [facility] growing streptococcus. [place] to be cholangitis per ID. Patient also had reactive arthritis that actually improved. Patient was discharged on Augmentin. Also started on allopurinol for hyperuricemia. EF was found to be 20-25%. Also acute hypoxic respiratory failure from CHF. Was discharged to rehab Patient now presents from to [facility]. Patient's blood left lower extremity wounds. Inflamed. Pain is present. Appetite is fair. Able to use a walker to walk a few steps. Denies any obvious fever and chills. November 15: Oral intake fair. IV Zosyn. Santyl topically. Encourage increase activity. for wound debridement per vascular. Tomorrow November 16: eating well. IV Zosyn. Santyl topically. Had wound debridement by Doctor Rivera this afternoon November 17: Oral intake fair. . IV Zosyn. Discussed with patient. Cultures were sent today. Apparently none was sent yesterday. November 18: Local wound care to continue. Cultures pending. IV Zosyn. Blood cultures have been negative. Oral intake fair November 19: Pending culture. Oral intake good. On IV Zosyn. Active Medications Acetaminophen (Acetaminophen Tab 325 Mg Tab) 650 mg PO Q6H PRN PRN Reason: Pain or Fever > 100.5 Last Admin: 11/18/21 06:25 Dose: 650 mg Hydrocodone Bitart/Acetaminophen (Hydrocodone/Apap 7.5-325mg 1 Each Tab) 1 each PO Q6H PRN PRN Reason: Pain Last Admin: 11/19/21 07:41 Dose: 1 each Allopurinol (Allopurinol 100 Mg Tab) 100 mg PO DAILY [facility] Last Admin: 11/19/21 08:24 Dose: 100 mg Alprazolam (Alprazolam 0.25 Mg Tab) 0.25 mg PO BID [facility] Last Admin: 11/19/21 08:24 Dose: 0.25 mg Atorvastatin Calcium (Atorvastatin 20 Mg Tab) 20 mg PO HS [facility] Last Admin: 11/18/21 21:22 Dose: 20 mg Calcium Carbonate/Glycine (Calcium Carbonate 500 Mg Chewable) 1,000 mg PO Q4HR PRN PRN Reason: Dyspepsia Cholecalciferol (Cholecalciferol 25 Mcg (1000 Iu) Tablet) 25 mcg PO DAILY [facility] Last Admin: 11/19/21 08:24 Dose: 25 mcg Collagenase (Collagenase 250 Unit/Gm Ointment 30 Gm Tube) 1 applic TOPICAL DAILY [facility]; Protocol Last Admin: 11/19/21 08:25 Dose: 1 applic Fluoxetine HCl (Fluoxetine Hcl 20 Mg Cap) 20 mg PO DAILY [facility] Last Admin: 11/19/21 08:24 Dose: 20 mg Piperacillin Sod/Tazobactam (Sod 3.375 gm/ Sodium Chloride) 100 mls @ 25 mls/hr IVPB Q8HR [facility]; Protocol Last Admin: 11/19/21 08:24 Dose: 25 mls/hr Insulin Aspart (Insulin Aspart (Novolog) 100 Unit/Ml Vial) 0 unit SQ AC- TID@07,,1600 [facility]; Protocol Last Admin: 11/19/21 08:23 Dose: 1 unit Insulin Aspart (Insulin Aspart (Novolog) 100 Unit/Ml Vial) 3 unit SQ AC- TID@07,11,16 [facility] Last Admin: 11/19/21 08:23 Dose: 3 unit Insulin Detemir (Insulin Detemir (Levemir) 100 Unit/Ml Syr) 12 unit SQ HS [facility] Last Admin: 11/19/21 00:41 Dose: 12 unit Lactulose (Lactulose 20 Gm/30 Ml Cup) 20 gm PO DAILY PRN PRN Reason: Constipation Metoprolol Succinate (Metoprolol Succinate (Er) 50 Mg Tab.Er.24h) 50 mg PO BID@0800,2000 [facility] Last Admin: 11/19/21 08:24 Dose: 50 mg Multi-Ingred Cream/Lotion/Oil/Oint (Hydrophilic Cream 180 Gm Tube) 1 applic TOPICAL DAILY [facility]; Protocol Last Admin: 11/19/21 09:56 Dose: 1 applic Naloxone HCl (Naloxone 0.4 Mg/Ml 1 Ml Vial) 0.2 mg IV Q2M PRN PRN Reason: Opioid Reversal Ondansetron HCl (Ondansetron 4 Mg/2 Ml Vial) 4 mg IVP Q8HR PRN PRN Reason: Nausea And Vomiting Last Admin: 11/16/21 12:55 Dose: 4 mg Spironolactone (Spironolactone 25 Mg Tab) 12.5 mg PO DAILY [facility] Last Admin: 11/19/21 08:24 Dose: 12.5 mg Tamsulosin HCl (Tamsulosin 0.4 Mg Cap.Er.24h) 0.4 mg PO HS [facility] Last Admin: 11/18/21 21:22 Dose: 0.4 mg Temazepam (Temazepam 15 Mg Cap) 15 mg PO HS PRN PRN Reason: Insomnia Torsemide (Torsemide 20 Mg Tab) 20 mg PO DAILY [facility] Last Admin: 11/19/21 08:26 Dose: 20 mg Past medical history to include: CAD with stent, diabetes, hypertension, hyperlipidemia, skin cancer on the nose in August 2020, anxiety, left leg common femoral DVT October 2021, hyperuricemia, hepatic steatosis, CHF EF 20-25% 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 Conjunctiva normal. HEENT: External appearance of nose and ears normal, oral cavity grossly normal. NECK: JVD not raised; masses not palpable. HEART: First and second heart sounds are normal; some edema. LUNGS: Respiratory rate increased; decreased breath sound . ABDOMEN: Soft, nontender, liver spleen not palpable, no masses palpable. PSYCH: [Alert and oriented x3; mood and affect slightly anxious DERMATOLOGICAL: areas breakdown of skin with wounds on the left lower extremity. dressing INVESTIGATIONS, reviewed in the clinical context: November 15: Sodium 136 potassium 4.6 BUN 36 creatinine 2.14 WBC 7 hemoglobin 10.3 platelets 27 sodium 132 potassium 4.7 BUN 36 creatinine 2.26 CRP 5.7 Previous labs [October 2021] Uric acid 10.7 October 26: Sodium 131 potassium 4.2 BUN 71 creatinine 1.96 2-D echocardiogram: EF 20-25%. Left lower extremity venous Doppler: DVT in the common femoral vein. Gallbladder ultrasound: Gallbladder filled with stones. Possible hepatic steatosis. Arterial Doppler results discussed with Dr. Mike: No evidence of vascular compromise Assessment and plan: -Acute multiple wounds painful left lower extremity likely from venous ulcers from recent DVT. Possible secondary infection: Slow to respond IV Zosyn. Topical Santyl. Wound care. Wound debridement by Dr. Rivera . Cultures pending -Chronic DVT of the left common femoral vein, in 10/16/2021 eliquis . -Ischemic cardiomyopathy, EF 20-25% Toprol-XL 50 mg twice daily. Aldactone 12.5 mg daily. Demadex -Choledocholithiasis. Asymptomatic -CAD with a history of stent Aspirin 81 mg daily, Lopressor -Diabetes mellitus type 2, chronically on insulin Follow Accu-Cheks and sliding scale insulin. Levemir 12 units at night. 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 Creatinine 1. 96 on 10/26/2021 -Anxiety not otherwise specified Xanax 0.25 mg by mouth twice a day -Hyperuricemia allopurinol 100 mg daily -Full code IV Zosyn. Wound care. Topical Santyl. . Discussed with patient. Pending culture results
[2021-11-19 11:41] LABS: Glucose,Whole Blood 160 mg/dL (70-110)
[2021-11-19 14:26] LABS: African American GFR (CKD) 29.8 (60.0-200.0); Anion Gap 13.4 mmol/L (10.00-18.00); BUN/Creat Ratio 12.62 Ratio (12.00-20.00); Blood Urea Nitrogen 31.3 mg/dL (9.0-27.0); Calcium 8.3 mg/dL (8.7-10.3); Carbon Dioxide 23.4 mmol/L (20.0-27.5); Non-African American GFR(CKD) 25.7 (60.0-200.0); Potassium 4.6 mmol/L (3.5-5.5)
[2021-11-19 16:32] LABS: Glucose,Whole Blood 63 mg/dL (70-110)
[2021-11-19 16:48] LABS: Glucose,Whole Blood 132 mg/dL (70-110)
[2021-11-19 20:16] LABS: Glucose,Whole Blood 100 mg/dL (70-110)
[2021-11-19] MEDS: TAMSULOSIN 0.4 MG CAP.ER.24H PO SCH (20:44)
[2021-11-19] MEDS: ATORVASTATIN 20 MG TAB PO SCH (20:44)
[2021-11-20] MEDS: PIPERACILLIN-TAZOBACTAM 3.375 GM in SODIUM CHLORIDE 0.9% 100 ML IVPB SCH ×2 (00:53→07:49)
[2021-11-20] MEDS: ACETAMINOPHEN TAB 325 MG TAB PO PRN (01:29)
[2021-11-20 06:16] LABS: African American GFR (CKD) 28 (>60 ml/min/1.73 sqM); Anion Gap 7 mmol/L; Blood Urea Nitrogen 33 mg/dL (9-20); Calcium 8.3 mg/dL (8.4-10.2); Carbon Dioxide 28 mmol/L (22-30); Chloride 100 mmol/L (98-107); Glucose 60 mg/dL (74-99); Non-African American GFR(CKD) 24 (>60 ml/min/1.73 sqM); Potassium 4.7 mmol/L (3.5-5.1); Sodium 135 mmol/L (137-145)
[2021-11-20 06:37] LABS: Anisocytosis Slight; Basophils # (A) 0.1 k/uL (0-0.2); Basophils % (A) 1 %; Eosinophils # (A) 0.3 k/uL (0-0.7); Eosinophils % (A) 3 %; HCT 32.9 % (39.0-53.0); HGB 10.3 gm/dL (13.0-17.5); Hypochromasia Marked; Lymphocytes # (A) 0.8 k/uL (1.0-4.8); Lymphocytes % (A) 10 %; MCH 31.3 pg (25.0-35.0); MCHC 31.2 g/dL (31.0-37.0); MCV 100.2 fL (80.0-100.0); Macrocytosis Slight; Mean Platelet Volume 8.6; Monocytes # (A) 0.6 k/uL (0-1.0); Monocytes % (A) 8 %; Neutrophils # (A) 6.4 k/uL (1.3-7.7); Neutrophils % (A) 77 %; Platelet Count 224 k/uL (150-450); Poikilocytosis Slight; RBC 3.28 m/uL (4.30-5.90); WBC 8.3 k/uL (3.8-10.6)
[2021-11-20 06:52] LABS: Glucose,Whole Blood 58 mg/dL (70-110)
[2021-11-20 07:10] LABS: Glucose,Whole Blood 62 mg/dL (70-110)
[2021-11-20] MEDS: INSULIN ASPART (NovoLOG) 100 UNIT/ML VIAL SQ SCH ×6 (07:18→17:14)
[2021-11-20 07:32] LABS: Glucose,Whole Blood 131 mg/dL (70-110)
[2021-11-20] MEDS: FLUoxetine HCL 20 MG CAP PO SCH (07:49)
[2021-11-20] MEDS: TORSEMIDE 20 MG TAB PO SCH (07:49)
[2021-11-20] MEDS: METOPROLOL SUCCINATE (ER) 50 MG TAB.ER.24H PO SCH ×2 (07:49→23:18)
[2021-11-20] MEDS: SPIRONOLACTONE 25 MG TAB PO SCH (07:49)
[2021-11-20] MEDS: ALPRAZolam 0.25 MG TAB PO SCH ×2 (07:49→23:18)
[2021-11-20] MEDS: CHOLECALCIFEROL 25 MCG (1000 IU) TABLET PO SCH (07:49)
[2021-11-20] MEDS: allopurinoL 100 MG TAB PO SCH (07:49)
[2021-11-20] MEDS: HYDROPHILIC CREAM 180 GM TUBE TOPICAL SCH (07:50)
[2021-11-20] MEDS: COLLAGENASE 250 UNIT/GM OINTMENT 30 GM TUBE TOPICAL SCH (07:50)
--- NOTE | 2021-11-20 08:12 | P.PN ---
Subjective Progress Note Date: 11/19/21 Principal diagnosis: left lower extremity wound and cellulitis Patient is a 66-year-old male with multiple comorbidity presented to hospital with worsening wound to the left lower extremity and concerning for secondary cellulitis. Patient is status post debridement of the left lower extremity wound by vascular surgery on 11/16/2021 On today's evaluation that is 11/19/2021, patient remains to be afebrile, patient pain to the left lower extremity is currently controlled, the patient denies chest pain shortness of breath or cough, the patient denies abdominal pain and no diarrhea with antibiotic therapy Objective - Vital Signs Vital signs: Vital Signs Temp 96.8 F L 11/19/21 14:00 Pulse 60 11/19/21 14:00 Resp 18 11/19/21 14:00 BP 125/76 11/19/21 14:00 Pulse Ox 90 L 11/19/21 14:00 FiO2 Intake & Output 11/18/21 11/19/21 11/19/21 18:59 06:59 18:59 Intake Total 100 Output Total 1000 Balance -900 Intake: Intake, IV Titration 100 Amount Piperacillin-Tazobactam 3 100 .375 gm In Sodium Chloride 0.9% 100 ml @ 25 mls/hr IVPB Q8HR [facility] Rx# :[id number] Output: Urine 1000 Other: Voiding Method Toilet Toilet Urinal # Voids 2 5 - Exam GENERAL DESCRIPTION: An elderly male lying in bed in no distress RESPIRATORY SYSTEM: Unlabored breathing , decreased breath sounds at bases HEART: S1 S2 regular rate and rhythm , ABDOMEN: Soft , no tenderness EXTREMITIES: Left lower extremity with multiple wounds did have a slough tissue surrounding swelling has decreased - Labs CBC & Chem 7: 11/20/21 05:31 11/20/21 05:31 Labs: Abnormal Lab Results - Last 24 Hours (Table) 11/18/21 11/18/21 11/19/21 Range/Units 15:57 21:00 05:23 BUN (9.0-27.0) mg/dL Creatinine (0.6-1.5) mg/dL Est GFR (CKD-EPI)AfAm (60.0-200.0) Est GFR (CKD-EPI)NonAf (60.0-200.0) Glucose (70-110) mg/dL POC Glucose (mg/dL) 132 H 114 H (70-110) mg/dL Calcium (8.7-10.3) mg/dL Iron 34 L (65-175) ug/dL % Saturation 14.63 L (15.00-50.00) Transferrin 166.0 L (204.0-354.0) mg/dL 11/19/21 11/19/21 11/19/21 Range/Units 05:23 07:00 11:40 BUN 31.3 H (9.0-27.0) mg/dL Creatinine 2.5 H (0.6-1.5) mg/dL Est GFR (CKD-EPI)AfAm 29.8 L (60.0-200.0) Est GFR (CKD-EPI)NonAf 25.7 L (60.0-200.0) Glucose 141 H (70-110) mg/dL POC Glucose (mg/dL) 148 H 160 H (70-110) mg/dL Calcium 8.3 L (8.7-10.3) mg/dL Iron (65-175) ug/dL % Saturation (15.00-50.00) Transferrin (204.0-354.0) mg/dL Microbiology - Last 24 Hours (Table) 11/17/21 12:45 Gram Stain - Preliminary Leg - Left Wound Culture - Preliminary Gram Neg Bacilli Lucila albicans 11/14/21 09:33 Blood Culture - Preliminary Blood No Growth after 120 hours 11/14/21 09:33 Blood Culture - Preliminary Blood No Growth after 120 hours Assessment and Plan (1) Left leg cellulitis Current Visit: Yes Status: Acute Code(s): L03.116 - CELLULITIS OF LEFT LOWER LIMB SNOMED Code(s): 665806752 (2) Diabetic leg ulcer Current Visit: Yes Status: Acute Code(s): E11.622 - TYPE 2 DIABETES MELLITUS WITH OTHER SKIN ULCER; L97.909 - NON-PRS CHRONIC ULC UNSP PRT OF UNSP LOW LEG W UNSP SEVERITY SNOMED Code(s): 075540510 Plan: 1ulcers and concern for secondary cellulitis more likely gram-positive skin pollo plus minus gram-negative in view of underlying diabetes patient with left lower extremity ulceration and concern for possible venous/arterial insufficiency in this patient with multiple comorbidity. 2 patient is status post surgical debridement completed on 11/16/2021, local cultures are currently growing gram-negative which has not been finalized 3 patient has shown clinical improvement as for his cellulitis and will continue with Zosyn while waiting for cultures to finalize and local wound care to continue with Santyl followed by moist dressing to be changed daily Time with Patient: Less than 30
[2021-11-20] MEDS: HYDROcodone/APAP 7.5-325MG 1 EACH TAB PO PRN ×2 (11:11→18:08)
[2021-11-20] MEDS: APIXABAN 5 MG TAB PO SCH ×2 (11:12→23:18)
[2021-11-20 11:50] LABS: Glucose,Whole Blood 132 mg/dL (70-110)
--- NOTE | 2021-11-20 12:04 | P.PN ---
Subjective Patient is seen in follow-up for acute kidney injury on chronic kidney disease. Renal function fairly stable. On oral Demadex and spironolactone. Has been voiding. Denies vomiting or diarrhea. Oral intake fair. Blood pressure stable. Vital signs are stable. General: Awake. No acute distress. HEENT: Head exam is unremarkable. LUNGS: Breath sounds decreased. HEART: Rate and Rhythm are regular. ABDOMEN: Soft, no distention. EXTREMITITES: Left lower extremity erythema noted. 1+ edema. Objective - Vital Signs Vital signs: Vital Signs Temp 97.6 F 11/20/21 07:46 Pulse 60 11/20/21 07:46 Resp 18 11/20/21 07:48 BP 112/76 11/20/21 07:46 Pulse Ox 92 L 11/20/21 07:46 FiO2 Intake & Output 11/19/21 11/20/21 11/20/21 18:59 06:59 18:59 Intake Total 100 590 Balance 100 590 Intake: Intake, IV Titration 100 Amount Piperacillin-Tazobactam 3 100 .375 gm In Sodium Chloride 0.9% 100 ml @ 25 mls/hr IVPB Q8HR [facility] Rx# :[id number] Oral 590 Other: Voiding Method Toilet # Voids 3 - Labs CBC & Chem 7: 11/20/21 05:31 11/20/21 05:31 Labs: Abnormal Lab Results - Last 24 Hours (Table) 11/19/21 11/19/21 11/19/21 Range/Units 05:23 16:30 16:47 RBC (4.30-5.90) m/uL Hgb (13.0-17.5) gm/dL Hct (39.0-53.0) % MCV (80.0-100.0) fL RDW (11.5-15.5) % Lymphocytes # (1.0-4.8) k/uL Sodium (137-145) mmol/L BUN 31.3 H (9.0-27.0) mg/dL Creatinine 2.5 H (0.6-1.5) mg/dL Est GFR (CKD-EPI)AfAm 29.8 L (60.0-200.0) Est GFR (CKD-EPI)NonAf 25.7 L (60.0-200.0) Glucose 141 H (70-110) mg/dL POC Glucose (mg/dL) 63 L 132 H (70-110) mg/dL Calcium 8.3 L (8.7-10.3) mg/dL 11/20/21 11/20/21 11/20/21 Range/Units 05:31 05:31 06:51 RBC 3.28 L (4.30-5.90) m/uL Hgb 10.3 L (13.0-17.5) gm/dL Hct 32.9 L (39.0-53.0) % MCV 100.2 H (80.0-100.0) fL RDW 17.0 H (11.5-15.5) % Lymphocytes # 0.8 L (1.0-4.8) k/uL Sodium 135 L (137-145) mmol/L BUN 33 H (9.0-27.0) mg/dL Creatinine 2.59 H (0.6-1.5) mg/dL Est GFR (CKD-EPI)AfAm (60.0-200.0) Est GFR (CKD-EPI)NonAf (60.0-200.0) Glucose 60 L (70-110) mg/dL POC Glucose (mg/dL) 58 L (70-110) mg/dL Calcium 8.3 L (8.7-10.3) mg/dL 11/20/21 11/20/21 11/20/21 Range/Units 07:08 07:31 11:48 RBC (4.30-5.90) m/uL Hgb (13.0-17.5) gm/dL Hct (39.0-53.0) % MCV (80.0-100.0) fL RDW (11.5-15.5) % Lymphocytes # (1.0-4.8) k/uL Sodium (137-145) mmol/L BUN (9.0-27.0) mg/dL Creatinine (0.6-1.5) mg/dL Est GFR (CKD-EPI)AfAm (60.0-200.0) Est GFR (CKD-EPI)NonAf (60.0-200.0) Glucose (70-110) mg/dL POC Glucose (mg/dL) 62 L 131 H 132 H (70-110) mg/dL Calcium (8.7-10.3) mg/dL Microbiology - Last 24 Hours (Table) 11/14/21 09:33 Blood Culture - Final Blood No Growth after 144 hours 11/14/21 09:33 Blood Culture - Final Blood No Growth after 144 hours 11/17/21 12:45 Anaerobic Culture - Final Leg - Left 11/17/21 12:45 Gram Stain - Final Leg - Left Wound Culture - Final Stenotrophomonas maltophilia Lucila albicans Assessment and Plan Plan: Assessment: 1. Acute kidney injury mostly prerenal secondary to cardiorenal syndrome. Creatinine 2.59 today. 2. Chronic kidney disease stage IIIB with baseline creatinine in the range of 1.72 secondary to diabetic kidney disease and cardiorenal syndrome. 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 Patient is advised to follow-up with hematology oncology outpa tient. 3. Acute on chronic systolic CHF with ejection fraction of 25%. 4. Left lower extremity cellulitis and diabetic ulcer on antibiotics. ID following. 5. Anemia of chronic kidney disease. Iron deficiency noted. Plan: Maintain Demadex. Add IV iron. Avoid nephrotoxins. Patient is advised to follow up outpatient to establish CKD care.
--- NOTE | 2021-11-20 17:06 | P.PN ---
Progress Note - Text Progress Note Date: 11/20/21 Chief Complaint: Left leg wounds This is a pleasant 66-year-old patient, follows with Dr. Mike Escobar. Chronic stable medical conditions include CAD with stent, diabetes, hypertension, hyperlipidemia anxiety. CAD, hyperuricemia, left leg DVT in October 2021 Patient was in the hospital recently from October 16 to 10/26/2021, at [facility] Admitted with acute left common femoral relevant DVT. - arterial Doppler done - Dr. Mike found to be normal. No arterial compromise. Denies any nausea vomiting abdominal pain today. Patient noted to have increased LFTs compared to the was done at [facility]. Also had acute ischemic hepatitis, acute kidney injury, also positive blood cultures from [facility] growing streptococcus. [place] to be cholangitis per ID. Patient also had reactive arthritis that actually improved. Patient was discharged on Augmentin. Also started on allopurinol for hyperuricemia. EF was found to be 20-25%. Also acute hypoxic respiratory failure from CHF. Was discharged to rehab Patient now presents from to [facility]. Patient's blood left lower extremity wounds. Inflamed. Pain is present. Appetite is fair. Able to use a walker to walk a few steps. Denies any obvious fever and chills. November 15: Oral intake fair. IV Zosyn. Santyl topically. Encourage increase activity. for wound debridement per vascular. Tomorrow November 14: eating well. IV Zosyn. Santyl topically. Had wound debridement by Doctor Rivera this afternoon November 15: Oral intake fair. . IV Zosyn. Discussed with patient. Cultures were sent today. Apparently none was sent yesterday. November 18: Local wound care to continue. Cultures pending. IV Zosyn. Blood cultures have been negative. Oral intake fair November 17: Pending culture. Oral intake good. On IV Zosyn. November 20: Up in a chair. Oral intake good. Discussed with Dr. Geiger from ID.. 4 IV Fortaz. Midline today. Discussed with director of casework. Pending authorization. Discussed with the patient. Questions answered. Active Medications Acetaminophen (Acetaminophen Tab 325 Mg Tab) 650 mg PO Q6H PRN PRN Reason: Pain or Fever > 100.5 Last Admin: 11/20/21 01:29 Dose: 650 mg Hydrocodone Bitart/Acetaminophen (Hydrocodone/Apap 7.5-325mg 1 Each Tab) 1 each PO Q6H PRN PRN Reason: Pain Last Admin: 11/20/21 11:11 Dose: 1 each Allopurinol (Allopurinol 100 Mg Tab) 100 mg PO DAILY [facility] Last Admin: 11/20/21 07:49 Dose: 100 mg Alprazolam (Alprazolam 0.25 Mg Tab) 0.25 mg PO BID [facility] Last Admin: 11/20/21 07:49 Dose: 0.25 mg Apixaban (Apixaban 5 Mg Tab) 5 mg PO BID [facility]; Protocol Last Admin: 11/20/21 11:12 Dose: 5 mg Atorvastatin Calcium (Atorvastatin 20 Mg Tab) 20 mg PO HS [facility] Last Admin: 11/19/21 20:44 Dose: 20 mg Calcium Carbonate/Glycine (Calcium Carbonate 500 Mg Chewable) 1,000 mg PO Q4HR PRN PRN Reason: Dyspepsia Cholecalciferol (Cholecalciferol 25 Mcg (1000 Iu) Tablet) 25 mcg PO DAILY [facility] Last Admin: 11/20/21 07:49 Dose: 25 mcg Collagenase (Collagenase 250 Unit/Gm Ointment 30 Gm Tube) 1 applic TOPICAL DAILY [facility]; Protocol Last Admin: 11/20/21 07:50 Dose: 1 applic Fluoxetine HCl (Fluoxetine Hcl 20 Mg Cap) 20 mg PO DAILY [facility] Last Admin: 11/20/21 07:49 Dose: 20 mg Ferric Sodium Gluconate 125 mg (/ Sodium Chloride) 110 mls @ 100 mls/hr IVPB DAILY [facility] Stop: 11/23/21 12:31 Ceftazidime 2 gm/ Sodium (Chloride) 100 mls @ 25 mls/hr IVPB Q24H [facility]; Protocol Insulin Aspart (Insulin Aspart (Novolog) 100 Unit/Ml Vial) 0 unit SQ AC- TID@,,1600 [facility]; Protocol Last Admin: 11/20/21 12:41 Dose: 1 unit Insulin Aspart (Insulin Aspart (Novolog) 100 Unit/Ml Vial) 3 unit SQ AC- TID@07,11,16 [facility] Last Admin: 11/20/21 12:41 Dose: 3 unit Lactulose (Lactulose 20 Gm/30 Ml Cup) 20 gm PO DAILY PRN PRN Reason: Constipation Metoprolol Succinate (Metoprolol Succinate (Er) 50 Mg Tab.Er.24h) 50 mg PO BID@ 0800,1999 [facility] Last Admin: 11/20/21 07:49 Dose: 50 mg Multi-Ingred Cream/Lotion/Oil/Oint (Hydrophilic Cream 180 Gm Tube) 1 applic TOPICAL DAILY [facility]; Protocol Last Admin: 11/20/21 07:50 Dose: 1 applic Naloxone HCl (Naloxone 0.4 Mg/Ml 1 Ml Vial) 0.2 mg IV Q2M PRN PRN Reason: Opioid Reversal Ondansetron HCl (Ondansetron 4 Mg/2 Ml Vial) 4 mg IVP Q8HR PRN PRN Reason: Nausea And Vomiting Last Admin: 11/16/21 12:55 Dose: 4 mg Spironolactone (Spironolactone 25 Mg Tab) 12.5 mg PO DAILY [facility] Last Admin: 11/20/21 07:49 Dose: 12.5 mg Tamsulosin HCl (Tamsulosin 0.4 Mg Cap.Er.24h) 0.4 mg PO HS [facility] Last Admin: 11/19/21 20:44 Dose: 0.4 mg Temazepam (Temazepam 15 Mg Cap) 15 mg PO HS PRN PRN Reason: Insomnia Torsemide (Torsemide 20 Mg Tab) 20 mg PO DAILY [facility] Last Admin: 11/20/21 07:49 Dose: 20 mg Past medical history to include: CAD with stent, diabetes, hypertension, hyperlipidemia, skin cancer on the nose in August 2020, anxiety, left leg common femoral DVT October 2021, hyperuricemia, hepatic steatosis, CHF EF 20-25% 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 Conjunctiva normal. HEENT: External appearance of nose and ears normal, oral cavity grossly normal. NECK: JVD not raised; masses not palpable. HEART: First and second heart sounds are normal; some edema. LUNGS: Respiratory rate increased; decreased breath sound . ABDOMEN: Soft, nontender, liver spleen not palpable, no masses palpable. PSYCH: [Alert and oriented x3; mood and affect slightly anxious DERMATOLOGICAL: areas breakdown of skin with wounds on the left lower extremity. dressing INVESTIGATIONS, reviewed in the clinical context: Wound Cultures showing Lucila albicans and stenotrophomonas maltophilia November 20: White count 8.3 hemoglobin 10.3 progression 4.7 BUN 33 creatinine 2.5 November 15: Sodium 136 potassium 4.6 BUN 36 creatinine 2.14 WBC 7 hemoglobin 10.3 platelets 27 sodium 132 potassium 4.7 BUN 36 creatinine 2.26 CRP 5.7 Previous labs [October 2021] Uric acid 10.7 October 26: Sodium 131 potassium 4.2 BUN 71 creatinine 1.96 2-D echocardiogram: EF 20-25%. Left lower extremity venous Doppler: DVT in the common femoral vein. Gallbladder ultrasound: Gallbladder filled with stones. Possible hepatic steatosis. Arterial Doppler results discussed with Dr. Mike: No evidence of vascular compromise Assessment and plan: -Acute multiple wounds painful left lower extremity likely from venous ulcers from recent DVT. Possible secondary infection: Slow to respond IV Zosyn. Topical Santyl. Wound care. Wound debridement by Dr. Rivera . 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 -Ischemic cardiomyopathy, EF 20-25% Toprol-XL 50 mg twice daily. Aldactone 12.5 mg daily. Demadex -Choledocholithiasis. Asymptomatic -CAD with a history of stent Aspirin 81 mg daily, Lopressor -Diabetes mellitus type 2, chronically on insulin Follow Accu-Cheks and sliding scale insulin. Levemir 12 units at night. 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 Creatinine 1. 96 on 10/26/2021 -Anxiety not otherwise specified Xanax 0.25 mg by mouth twice a day -Hyperuricemia allopurinol 100 mg daily -Full code IV Zosyn. IV Fortaz and discharge. Midline today. Discussed with ID nurse and director of casework and the patient. Pending authorization. Total time spent about 40 minutes with over 25 minutes of discussion.
[2021-11-20 17:08] LABS: Glucose,Whole Blood 102 mg/dL (70-110)
[2021-11-20] MEDS: SODIUM FERRIC GLUCONAT-SUCROSE 125 MG in SODIUM CHLORIDE 0.9% 100 ML IVPB SCH (18:08)
[2021-11-20 20:39] LABS: Glucose,Whole Blood 174 mg/dL (70-110)
[2021-11-20] MEDS: ATORVASTATIN 20 MG TAB PO SCH (23:18)
[2021-11-20] MEDS: TAMSULOSIN 0.4 MG CAP.ER.24H PO SCH (23:18)
[2021-11-21] MEDS: HYDROcodone/APAP 7.5-325MG 1 EACH TAB PO PRN ×2 (01:44→10:47)
[2021-11-21 06:56] LABS: Glucose,Whole Blood 123 mg/dL (70-110)
[2021-11-21 07:04] LABS: African American GFR (CKD) 31 (>60 ml/min/1.73 sqM); Anion Gap 7 mmol/L; Blood Urea Nitrogen 33 mg/dL (9-20); Carbon Dioxide 28 mmol/L (22-30); Chloride 101 mmol/L (98-107); Glucose 105 mg/dL (74-99); Non-African American GFR(CKD) 27 (>60 ml/min/1.73 sqM); Potassium 4.6 mmol/L (3.5-5.1); Sodium 136 mmol/L (137-145)
[2021-11-21] MEDS: INSULIN ASPART (NovoLOG) 100 UNIT/ML VIAL SQ SCH ×4 (07:54→12:39)
[2021-11-21] MEDS: FLUoxetine HCL 20 MG CAP PO SCH (08:29)
[2021-11-21] MEDS: TORSEMIDE 20 MG TAB PO SCH (08:29)
[2021-11-21] MEDS: APIXABAN 5 MG TAB PO SCH (08:29)
[2021-11-21] MEDS: allopurinoL 100 MG TAB PO SCH (08:29)
[2021-11-21] MEDS: ALPRAZolam 0.25 MG TAB PO SCH (08:29)
[2021-11-21] MEDS: METOPROLOL SUCCINATE (ER) 50 MG TAB.ER.24H PO SCH (08:29)
[2021-11-21] MEDS: SPIRONOLACTONE 25 MG TAB PO SCH (08:29)
[2021-11-21] MEDS: CHOLECALCIFEROL 25 MCG (1000 IU) TABLET PO SCH (08:29)
[2021-11-21] MEDS: COLLAGENASE 250 UNIT/GM OINTMENT 30 GM TUBE TOPICAL SCH (08:30)
[2021-11-21] MEDS: HYDROPHILIC CREAM 180 GM TUBE TOPICAL SCH (08:30)
--- NOTE | 2021-11-21 08:38 | P.PN ---
Subjective Progress Note Date: 11/20/21 Principal diagnosis: left lower extremity wound and cellulitis Patient is a 66-year-old male with multiple comorbidity presented to hospital with worsening wound to the left lower extremity and concerning for secondary cellulitis. Patient is status post debridement of the left lower extremity wound by vascular surgery on 11/16/2021 On today's evaluation that is 11/20/2021, patient continues to be afebrile, patient denies any worsening pain to the left lower extremity, the patient denies chest pain shortness of breath or cough, the patient denies abdominal pain and no diarrhea Objective - Vital Signs Vital signs: Vital Signs Temp 97.6 F 11/20/21 07:46 Pulse 60 11/20/21 07:46 Resp 18 11/20/21 07:48 BP 112/76 11/20/21 07:46 Pulse Ox 92 L 11/20/21 07:46 FiO2 Intake & Output 11/19/21 11/20/21 11/20/21 18:59 06:59 18:59 Intake Total 100 590 Balance 100 590 Intake: Intake, IV Titration 100 Amount Piperacillin-Tazobactam 3 100 .375 gm In Sodium Chloride 0.9% 100 ml @ 25 mls/hr IVPB Q8HR [facility] Rx# :[id number] Oral 590 Other: Voiding Method Toilet # Voids 3 - Exam GENERAL DESCRIPTION: An elderly male lying in bed in no distress RESPIRATORY SYSTEM: Unlabored breathing , decreased breath sounds at bases HEART: S1 S2 regular rate and rhythm , ABDOMEN: Soft , no tenderness EXTREMITIES: Left lower extremity with multiple wounds did have a slough tissue surrounding swelling has decreased - Labs CBC & Chem 7: 11/20/21 05:31 11/21/21 06:08 Labs: Abnormal Lab Results - Last 24 Hours (Table) 11/19/21 11/19/21 11/19/21 Range/Units 05:23 16:30 16:47 RBC (4.30-5.90) m/uL Hgb (13.0-17.5) gm/dL Hct (39.0-53.0) % MCV (80.0-100.0) fL RDW (11.5-15.5) % Lymphocytes # (1.0-4.8) k/uL Sodium (137-145) mmol/L BUN 31.3 H (9.0-27.0) mg/dL Creatinine 2.5 H (0.6-1.5) mg/dL Est GFR (CKD-EPI)AfAm 29.8 L (60.0-200.0) Est GFR (CKD-EPI)NonAf 25.7 L (60.0-200.0) Glucose 141 H (70-110) mg/dL POC Glucose (mg/dL) 63 L 132 H (70-110) mg/dL Calcium 8.3 L (8.7-10.3) mg/dL 11/20/21 11/20/21 11/20/21 Range/Units 05:31 05:31 06:51 RBC 3.28 L (4.30-5.90) m/uL Hgb 10.3 L (13.0-17.5) gm/dL Hct 32.9 L (39.0-53.0) % MCV 100.2 H (80.0-100.0) fL RDW 17.0 H (11.5-15.5) % Lymphocytes # 0.8 L (1.0-4.8) k/uL Sodium 135 L (137-145) mmol/L BUN 33 H (9.0-27.0) mg/dL Creatinine 2.59 H (0.6-1.5) mg/dL Est GFR (CKD-EPI)AfAm (60.0-200.0) Est GFR (CKD-EPI)NonAf (60.0-200.0) Glucose 60 L (70-110) mg/dL POC Glucose (mg/dL) 58 L (70-110) mg/dL Calcium 8.3 L (8.7-10.3) mg/dL 11/20/21 11/20/21 11/20/21 Range/Units 07:08 07:31 11:48 RBC (4.30-5.90) m/uL Hgb (13.0-17.5) gm/dL Hct (39.0-53.0) % MCV (80.0-100.0) fL RDW (11.5-15.5) % Lymphocytes # (1.0-4.8) k/uL Sodium (137-145) mmol/L BUN (9.0-27.0) mg/dL Creatinine (0.6-1.5) mg/dL Est GFR (CKD-EPI)AfAm (60.0-200.0) Est GFR (CKD-EPI)NonAf (60.0-200.0) Glucose (70-110) mg/dL POC Glucose (mg/dL) 62 L 131 H 132 H (70-110) mg/dL Calcium (8.7-10.3) mg/dL Microbiology - Last 24 Hours (Table) 11/14/21 09:33 Blood Culture - Final Blood No Growth after 144 hours 11/14/21 09:33 Blood Culture - Final Blood No Growth after 144 hours 11/17/21 12:45 Anaerobic Culture - Final Leg - Left 11/17/21 12:45 Gram Stain - Final Leg - Left Wound Culture - Final Stenotrophomonas maltophilia Lucila albicans Assessment and Plan (1) Left leg cellulitis Current Visit: Yes Status: Acute Code(s): L03.116 - CELLULITIS OF LEFT LOWER LIMB SNOMED Code(s): 329449703 (2) Diabetic leg ulcer Current Visit: Yes Status: Acute Code(s): E11.622 - TYPE 2 DIABETES MELLITUS WITH OTHER SKIN ULCER; L97.909 - NON-PRS CHRONIC ULC UNSP PRT OF UNSP LOW LEG W UNSP SEVERITY SNOMED Code(s): 791980148 Plan: 1ulcers and concern for secondary cellulitis more likely gram-positive skin pollo plus minus gram-negative in view of underlying diabetes patient with left lower extremity ulceration and concern for possible venous/arterial insufficiency in this patient with multiple comorbidity. 2 patient is status post surgical debridement completed on 11/16/2021, local cultures are currently growing stenotrophomonas 3 patient local wound care to continue with Santyl followed by moist dressing to be changed daily 4- patient to have Cipro ALLERGY and elevated creatinine has cannot use Levaquin or Bactrim patient will be started on Fortaz 2 g every 12 for which a midline with be placed plan for 2 weeks of antibiotic therapy Time with Patient: Less than 30
[2021-11-21] MEDS: SODIUM FERRIC GLUCONAT-SUCROSE 125 MG in SODIUM CHLORIDE 0.9% 100 ML IVPB SCH (08:56)
[2021-11-21 11:13] LABS: Glucose,Whole Blood 239 mg/dL (70-110)
[2021-11-21 11:39] LABS: Glucose,Whole Blood 215 mg/dL (70-110)
--- NOTE | 2021-11-21 13:43 | P.DS ---
Providers Date of admission: 11/14/21 11:44 Expected date of discharge: 11/21/21 Attending physician: Derick Johnson Consults: 11/14/21 11:11 Consult Physician Urgent Consulting Provider: Cassidy Naik Consult Reason/Comments: Leg cellulitis, diabetic ulceration Do you want consulting provider notified?: Yes 11/14/21 19:19 Consult Physician Routine Consulting Provider: Alysa Landry Consult Reason/Comments: Renal failure Do you want consulting provider notified?: Yes Primary care physician: [facility] Course: Chief Complaint: Left leg wounds This is a pleasant 66-year-old patient, follows with Dr. Mike Escobar. Chronic stable medical conditions include CAD with stent, diabetes, hypertension, hyperlipidemia anxiety. CAD, hyperuricemia, left leg DVT in October 2021 Patient was in the hospital recently from October 16 to 10/26/2021, at [facility] Admitted with acute left common femoral relevant DVT. - arterial Doppler done - Dr. Mike found to be normal. No arterial compromise. Denies any nausea vomiting abdominal pain today. Patient noted to have increased LFTs compared to the was done at [facility]. Also had acute ischemic hepatitis, acute kidney injury, also positive blood cultures from [facility] growing streptococcus. [place] to be cholangitis per ID. Patient also had reactive arthritis that actually improved. Patient was discharged on Augmentin. Also started on allopurinol for hyperuricemia. EF was found to be 20-25%. Also acute hypoxic respiratory failure from CHF. Was discharged to rehab Patient now presents from to [facility]. Patient's blood left lower extremity wounds. Inflamed. Pain is present. Appetite is fair. Able to use a walker to walk a few steps. Denies any obvious fever and chills. November 15: Oral intake fair. IV Zosyn. Santyl topically. Encourage increase activity. for wound debridement per vascular. Tomorrow November 16: eating well. IV Zosyn. Santyl topically. Had wound debridement by Doctor Rivera this afternoon November 17: Oral intake fair. . IV Zosyn. Discussed with patient. Cultures were sent today. Apparently none was sent yesterday. November 18: Local wound care to continue. Cultures pending. IV Zosyn. Blood cultures have been negative. Oral intake fair November 17: Pending culture. Oral intake good. On IV Zosyn. November 20: Up in a chair. Oral intake good. Discussed with Dr. Geiger from ID.. 4 IV Fortaz. Midline today. Discussed with case management specialist. Pending authorization. Discussed with the patient. Questions answered. November 21: Transitional discomfort through to go to rehab. Patient received ceftazidime for 2 weeks. Has IV access. Discussed with case management specialist. Local wound care to continue as per ID. And follow-up in the wound care center. 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 Currently at rehab Family history: Diabetes, CAD Physical examination: VITAL SIGNS: 98, 63, 18, 116/78, 90% on room air GENERAL: Up in a chair, comfortable EYES: Pupils equal. Conjunctiva normal. HEENT: External appearance of nose and ears normal, oral cavity grossly normal. NECK: JVD not raised; masses not palpable. HEART: First and second heart sounds are normal; some edema. LUNGS: Respiratory rate increased; decreased breath sound . ABDOMEN: Soft, nontender, liver spleen not palpable, no masses palpable. PSYCH: [Alert and oriented x3; mood and affect slightly anxious DERMATOLOGICAL: areas breakdown of skin with wounds on the left lower extremity. dressing INVESTIGATIONS, reviewed in the clinical context: November 21: Sodium 136 potassium 4.6 BUN 33 creatinine 2.41 Wound Cultures showing Lucila albicans and stenotrophomonas maltophilia November 20: White count 8.3 hemoglobin 10.3 progression 4.7 BUN 33 creatinine 2.5 November 15: Sodium 136 potassium 4.6 BUN 36 creatinine 2.14 WBC 7 hemoglobin 10.3 platelets 27 sodium 132 potassium 4.7 BUN 36 creatinine 2.26 CRP 5.7 Previous labs [October 2021] Uric acid 10.7 October 26: Sodium 131 potassium 4.2 BUN 71 creatinine 1.96 2-D echocardiogram: EF 20-25%. Left lower extremity venous Doppler: DVT in the common femoral vein. Gallbladder ultrasound: Gallbladder filled with stones. Possible hepatic steatosis. Arterial Doppler results discussed with Dr. Cuppari: No evidence of vascular compromise Assessment and plan: -Acute multiple wounds painful left lower extremity likely from venous ulcers from recent DVT. Possible secondary infection: IV Zosyn changed over to IV Fortaz. 2 g every 12 for 2 weeks. Topical Santyl. Wound care. Wound debridement by Dr. Rivera . 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 -Ischemic cardiomyopathy, EF 20-25% Toprol-XL 50 mg twice daily. Aldactone 12.5 mg daily. Demadex -Choledocholithiasis. Asymptomatic -CAD with a history of stent Aspirin 81 mg daily, Lopressor -Diabetes mellitus type 2, chronically on insulin Follow Accu-Cheks and sliding scale insulin. 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 Creatinine 1. 96 on 10/26/2021 -Anxiety not otherwise specified Xanax 0.25 mg by mouth twice a day -Hyperuricemia allopurinol 100 mg daily -Full code Disposition: Rehab at [facility] Plan - Discharge Summary Discharge Rx Participant: Yes New Discharge Prescriptions: New Collagenase [Santyl Ointment] 1 applic TOPICAL DAILY each Continue Nitroglycerin Sl Tabs [Nitrostat] 0.4 mg SL Q5M PRN PRN Reason: Chest Pain FLUoxetine HCL [PROzac] 20 mg PO DAILY Atorvastatin [Lipitor] 20 mg PO HS #1 tablet allopurinoL 100 mg PO DAILY #1 tab INSULIN ASPART (NovoLOG) [NovoLOG (formulary)] 3 unit SQ AC-TID@,16 ALPRAZolam [Xanax] 0.25 mg PO BID #6 tab Acetaminophen Tab [Tylenol] 650 mg PO Q6H PRN PRN Reason: Pain Or Fever > 100.5 Tamsulosin [Flomax] 0.4 mg PO HS Metoprolol Succinate (ER) [Toprol XL] 50 mg PO BID@0800,2000 INSULIN ASPART (NovoLOG) [NovoLOG (formulary)] See Protocol SQ AC- TID@,1599 Cholecalciferol [Vitamin D3 (25 Mcg = 1000 Iu)] 25 mcg PO DAILY Apixaban [Eliquis] 5 mg PO BID HYDROcodone/APAP 7.5-325MG [[place] 7.5-325] 1 tab PO Q6H PRN #12 tab PRN Reason: Pain Changed Torsemide [Demadex] 20 mg PO DAILY #0 Discontinued Insulin Detemir (Levemir) [Levemir] 20 unit SQ HS each Glimepiride [Amaryl] 1 mg PO DAILY Discharge Medication List Nitroglycerin Sl Tabs [Nitrostat] 0.4 mg SL Q5M PRN 10/20/17 [History] Acetaminophen Tab [Tylenol] 650 mg PO Q6H PRN 08/22/21 [History] FLUoxetine HCL [PROzac] 20 mg PO DAILY 08/22/21 [History] Atorvastatin [Lipitor] 20 mg PO HS #1 tablet 10/25/21 [Rx] allopurinoL 100 mg PO DAILY #1 tab 10/26/21 [Rx] Apixaban [Eliquis] 5 mg PO BID 11/14/21 [History] Cholecalciferol [Vitamin D3 (25 Mcg = 1000 Iu)] 25 mcg PO DAILY 11/14/21 [History] INSULIN ASPART (NovoLOG) [NovoLOG (formulary)] 3 unit SQ AC-TID@07,11,16 11/14/21 [History] INSULIN ASPART (NovoLOG) [NovoLOG (formulary)] See Protocol SQ AC-TID@07,11,1600 11/14/21 [History] Metoprolol Succinate (ER) [Toprol XL] 50 mg PO BID@0800,2000 11/14/21 [History] Tamsulosin [Flomax] 0.4 mg PO HS 11/14/21 [History] ALPRAZolam [Xanax] 0.25 mg PO BID #6 tab 11/17/21 [Rx] Collagenase [Santyl Ointment] 1 applic TOPICAL DAILY each 11/17/21 [Rx] HYDROcodone/APAP 7.5-325MG [[place] 7.5-325] 1 tab PO Q6H PRN #12 tab 11/17/21 [Rx] Torsemide [Demadex] 20 mg PO DAILY #0 11/20/21 [Rx] Follow up Appointment(s)/Referral(s): Marcelino Jernigan DO [Primary Care Provider] - [facility] Fela Rivera DO [STAFF PHYSICIAN] - [facility] [NON-STAFF] - As Needed [facility] [NON-STAFF] - 1 Week Activity/Diet/Wound Care/Special Instructions: Ceftazidime 2g IVPB q12h x2wks. Wound care: Apply Santyl to LLE, saline moistened gauze, dry gauze, rolled gauze , and secure with paper tape. Wrap with Turbigrip. Change daily. Apply Triad to RLE. Wrap with Turbigrip. Change daily.
[2021-11-21] MEDS: ACETAMINOPHEN TAB 325 MG TAB PO PRN (13:53)
--- NOTE | 2021-11-21 14:16 | P.PN ---
Subjective Patient is seen in follow-up for acute kidney injury on chronic kidney disease. Renal function fairly stable. On oral Demadex and spironolactone. Has been voiding. Denies vomiting or diarrhea. Oral intake fair. Blood pressure stable. No active complaints. Vital signs are stable. General: Awake. No acute distress. HEENT: Head exam is unremarkable. LUNGS: Breath sounds decreased. HEART: Rate and Rhythm are regular. ABDOMEN: Soft, no distention. EXTREMITITES: Left lower extremities wrapped. 1+ edema. Objective - Vital Signs Vital signs: Vital Signs Temp 98.0 F 11/21/21 08:00 Pulse 63 11/21/21 08:00 Resp 18 11/21/21 08:00 BP 116/78 11/21/21 08:00 Pulse Ox 90 L 11/21/21 08:00 FiO2 Intake & Output 11/20/21 11/21/21 11/21/21 18:59 06:59 18:59 Intake Total 1500 400 Balance 1500 400 Intake: Intake, IV Titration 100 Amount Sodium Ferric Gluconat- 100 Sucrose 125 mg In Sodium Chloride 0.9% 100 ml @ 100 mls/hr IVPB DAILY [facility] Rx#:[id number] Oral 1500 300 Other: Voiding Method Toilet Toilet # Voids 3 2 # Bowel Movements 2 0 - Labs CBC & Chem 7: 11/20/21 05:31 11/21/21 06:08 Labs: Abnormal Lab Results - Last 24 Hours (Table) 11/20/21 11/21/21 11/21/21 Range/Units 20:36 06:08 06:54 Sodium 136 L (137-145) mmol/L BUN 33 H (9-20) mg/dL Creatinine 2.41 H (0.66-1.25) mg/dL Glucose 105 H (74-99) mg/dL POC Glucose (mg/dL) 174 H 123 H (70-110) mg/dL Calcium 8.0 L (8.4-10.2) mg/dL 11/21/21 11/21/21 Range/Units 11:11 11:37 Sodium (137-145) mmol/L BUN (9-20) mg/dL Creatinine (0.66-1.25) mg/dL Glucose (74-99) mg/dL POC Glucose (mg/dL) 239 H 215 H (70-110) mg/dL Calcium (8.4-10.2) mg/dL Microbiology - Last 24 Hours (Table) 11/14/21 09:33 Blood Culture - Final Blood No Growth after 144 hours 11/14/21 09:33 Blood Culture - Final Blood No Growth after 144 hours 11/17/21 12:45 Anaerobic Culture - Final Leg - Left Assessment and Plan Plan: Assessment: 1. Acute kidney injury mostly prerenal secondary to cardiorenal syndrome. Creatinine stable at 2.41 today. 2. Chronic kidney disease stage IIIB with baseline creatinine in the range of 1.7-2 secondary to diabetic kidney disease and cardiorenal syndrome. 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 Patient is advised to follow-up with hematology oncology outpatient. 3. Acute on chronic systolic CHF with ejection fraction of 25%. 4. Left lower extremity cellulitis and diabetic ulcer on antibiotics. ID following. 5. Anemia of chronic kidney disease. Iron deficiency noted. Plan: Maintain Demadex. Maintain IV iron. Avoid nephrotoxins. Repeat BMP and magnesium level 2-3 days postdischarge. Patient is advised to follow up outpatient to establish CKD care.
[2021-11-21 15:20] VITALS: BP 123/82; PULSE 61; RESP 19; TEMP 99.2
--- NOTE | 2021-11-28 23:22 | P.PN ---
Subjective Progress Note Date: 11/21/21 Principal diagnosis: left lower extremity wound and cellulitis Patient is a 66-year-old male with multiple comorbidity presented to hospital with worsening wound to the left lower extremity and concerning for secondary cellulitis. Patient is status post debridement of the left lower extremity wound by vascular surgery on 11/16/2021 On today's evaluation that is 11/21/2021, patient remains to be afebrile, patient pain to the left lower extremity has decreased in intensity, the patient denies chest pain shortness of breath or cough, the patient denies abdominal pain and no diarrhea Objective - Vital Signs Vital signs: Vital Signs Temp 98.0 F 11/21/21 08:00 Pulse 63 11/21/21 08:00 Resp 18 11/21/21 08:00 BP 116/78 11/21/21 08:00 Pulse Ox 90 L 11/21/21 08:00 FiO2 Intake & Output 11/20/21 11/21/21 11/21/21 18:59 06:59 18:59 Intake Total 1500 400 Balance 1500 400 Intake: Intake, IV Titration 100 Amount Sodium Ferric Gluconat- 100 Sucrose 125 mg In Sodium Chloride 0.9% 100 ml @ 100 mls/hr IVPB DAILY [facility] Rx#:[id number] Oral 1500 300 Other: Voiding Method Toilet Toilet # Voids 3 2 # Bowel Movements 2 0 - Exam GENERAL DESCRIPTION: An elderly male lying in bed in no distress RESPIRATORY SYSTEM: Unlabored breathing , decreased breath sounds at bases HEART: S1 S2 regular rate and rhythm , ABDOMEN: Soft , no tenderness EXTREMITIES: Left lower extremity with multiple wounds did have a slough tissue surrounding swelling has decreased - Labs CBC & Chem 7: 11/20/21 05:31 11/21/21 06:08 Labs: Abnormal Lab Results - Last 24 Hours (Table) 11/20/21 11/21/21 11/21/21 Range/Units 20:36 06:08 06:54 Sodium 136 L (137-145) mmol/L BUN 33 H (9-20) mg/dL Creatinine 2.41 H (0.66-1.25) mg/dL Glucose 105 H (74-99) mg/dL POC Glucose (mg/dL) 174 H 123 H (70-110) mg/dL Calcium 8.0 L (8.4-10.2) mg/dL 11/21/21 11/21/21 Range/Units 11:11 11:37 Sodium (137-145) mmol/L BUN (9-20) mg/dL Creatinine (0.66-1.25) mg/dL Glucose (74-99) mg/dL POC Glucose (mg/dL) 239 H 215 H (70-110) mg/dL Calcium (8.4-10.2) mg/dL Microbiology - Last 24 Hours (Table) 11/14/21 09:33 Blood Culture - Final Blood No Growth after 144 hours 11/14/21 09:33 Blood Culture - Final Blood No Growth after 144 hours 11/17/21 12:45 Anaerobic Culture - Final Leg - Left 11/17/21 12:45 Gram Stain - Final Leg - Left Wound Culture - Final Stenotrophomonas maltophilia Lucila albicans Assessment and Plan (1) Left leg cellulitis Status: Acute Code(s): L03.116 - CELLULITIS OF LEFT LOWER LIMB SNOMED Code(s): 854810027 (2) Diabetic leg ulcer Status: Acute Code(s): E11.622 - TYPE 2 DIABETES MELLITUS WITH OTHER SKIN ULCER; L97.909 - NON-PRS CHRONIC ULC UNSP PRT OF UNSP LOW LEG W UNSP SEVERITY SNOMED Code(s): 964602093 Plan: 1ulcers and concern for secondary cellulitis more likely gram-positive skin pollo plus minus gram-negative in view of underlying diabetes patient with left lower extremity ulceration and concern for possible venous/arterial insufficiency in this patient with multiple comorbidity. 2 patient is status post surgical debridement completed on 11/16/2021, local cultures are currently growing stenotrophomonas 3 patient local wound care to continue with Santyl followed by moist dressing to be changed daily 4- patient to have Cipro ALLERGY and elevated creatinine has cannot use Levaquin or Bactrim patient did get a midline and will continue with Fortaz 2 g every 12 x 2 weeks and close outpatient follow-up Time with Patient: Less than 30
== END 2021-11-21 16:05 | DRG 264 ==
LOC: EC 08:12 → 4SSUR 11:44
PROVIDERS: ADMIT Hospitalist; ATTEND Hospitalist
PROC: 0JBP0ZZ Excision of Left Lower Leg Subcutaneous Tissue and Fascia, Open Approach (ICD-10-PCS; principal; 2021-11-16 13:30)
PROC: 05HF33Z Insertion of Infusion Device into Left Cephalic Vein, Percutaneous Approach (ICD-10-PCS; 2021-11-20 19:20)
DX: I87.332 Chronic venous hypertension (idiopathic) with ulcer and inflammation of left lower extremity (principal); I13.0 Hypertensive heart and chronic kidney disease with heart failure and stage 1 through stage 4 chronic kidney disease, or unspecified chronic kidney disease; M02.30 Reiter's disease, unspecified site; L03.116 Cellulitis of left lower limb; L97.322 Non-pressure chronic ulcer of left ankle with fat layer exposed; L97.222 Non-pressure chronic ulcer of left calf with fat layer exposed; I50.22 Chronic systolic (congestive) heart failure; N17.9 Acute kidney failure, unspecified; I82.512 Chronic embolism and thrombosis of left femoral vein; D63.1 Anemia in chronic kidney disease; K80.50 Calculus of bile duct without cholangitis or cholecystitis without obstruction; E11.649 Type 2 diabetes mellitus with hypoglycemia without coma; I48.91 Unspecified atrial fibrillation; E11.22 Type 2 diabetes mellitus with diabetic chronic kidney disease; E11.51 Type 2 diabetes mellitus with diabetic peripheral angiopathy without gangrene; K76.0 Fatty (change of) liver, not elsewhere classified; Z89.422 Acquired absence of other left toe(s); N18.32 Chronic kidney disease, stage 3b; Z79.4 Long term (current) use of insulin; B37.2 Candidiasis of skin and nail; B96.89 Other specified bacterial agents as the cause of diseases classified elsewhere; I25.5 Ischemic cardiomyopathy; E78.5 Hyperlipidemia, unspecified; E79.0 Hyperuricemia without signs of inflammatory arthritis and tophaceous disease; I25.10 Atherosclerotic heart disease of native coronary artery without angina pectoris; E61.1 Iron deficiency; G47.00 Insomnia, unspecified; K59.00 Constipation, unspecified; I25.2 Old myocardial infarction; F41.9 Anxiety disorder, unspecified; E66.9 Obesity, unspecified; Z68.28 Body mass index [BMI] 28.0-28.9, adult; Z79.01 Long term (current) use of anticoagulants; Z79.84 Long term (current) use of oral hypoglycemic drugs; Z79.899 Other long term (current) drug therapy; Z85.828 Personal history of other malignant neoplasm of skin; Z95.5 Presence of coronary angioplasty implant and graft; Z87.828 Personal history of other (healed) physical injury and trauma; Z88.1 Allergy status to other antibiotic agents; Z82.49 Family history of ischemic heart disease and other diseases of the circulatory system; Z83.3 Family history of diabetes mellitus; Z84.1 Family history of disorders of kidney and ureter
CPT/HCPCS: 36410; 36415; 76937; 80048; 80053; 82533; 83540; 83550; 83605; 83735; 85025; 86140; 87040; 87070; 87075; 87077; 87186; 87205; 93922; 94760; 96365; 96366; 96367; 99285

== ENCOUNTER 2021-11-23 00:46 | Emergency (ER) | payer MEDICARE ==
[2021-11-23 01:13] VITALS: BP 109/68; PULSE 74; RESP 18; TEMP 97.9
[2021-11-23] MEDS ORDERED: MORPHINE SULFATE 4 MG/ML SYRINGE IM STA (02:42)
--- NOTE | 2021-11-23 04:20 | ED ---
Extremity Problem HPI - General Chief complaint: Extremity Problem,Nontraumatic Stated complaint: Combative Time Seen by Provider: 11/23/21 01:03 Source: patient, EMS Mode of arrival: EMS Limitations: physical limitation - History of Present Illness Initial comments: This patient is a 66-year-old man [facility] lower extremity pain. The patient reports having chronic venous stasis ulcer and chronic pain related to leg edema. Patient states that he is supposed to receive medication at his long-term care facility but he states that this was not given tonight. Staff there report that the patient had been combative towards them, but that was not fully defined. On arrival here, the patient alert and cooperative. MD Complaint: extremity pain -: hour(s) Location: left, lower extremity Quality: aching Consistency: constant Improves with: nothing Worsens with: nothing - Related Data Home Medications Medication Instructions Recorded Confirmed Nitroglycerin Sl Tabs [Nitrostat] 0.4 mg SL Q5M PRN 10/20/17 11/14/21 Acetaminophen Tab [Tylenol] 650 mg PO Q6H PRN 08/22/21 11/14/21 FLUoxetine HCL [PROzac] 20 mg PO DAILY 08/22/21 11/14/21 Apixaban [Eliquis] 5 mg PO BID 11/14/21 11/14/21 Cholecalciferol [Vitamin D3 (25 25 mcg PO DAILY 11/14/21 11/14/21 Mcg = 1000 Iu)] INSULIN ASPART (NovoLOG) [NovoLOG 3 unit SQ AC-TID@07,11,16 11/14/21 11/14/21 (formulary)] INSULIN ASPART (NovoLOG) [NovoLOG See Protocol SQ AC-TID@07,11,1600 11/14/21 11/14/21 (formulary)] Metoprolol Succinate (ER) [Toprol 50 mg PO BID@0800,2000 11/14/21 11/14/21 XL] Tamsulosin [Flomax] 0.4 mg PO HS 11/14/21 11/14/21 Previous Rx's Medication Instructions Recorded Atorvastatin [Lipitor] 20 mg PO HS #1 tablet 10/25/21 allopurinoL 100 mg PO DAILY #1 tab 10/26/21 ALPRAZolam [Xanax] 0.25 mg PO BID #6 tab 11/17/21 Collagenase [Santyl Ointment] 1 applic TOPICAL DAILY each 11/17/21 HYDROcodone/APAP 7.5-325MG [[place] 1 tab PO Q6H PRN #12 tab 11/17/21 7.5-325] Torsemide [Demadex] 20 mg PO DAILY #0 11/20/21 Spironolactone [Aldactone] 12.5 mg PO DAILY tab 11/21/21 Allergies Allergy/AdvReac Type Severity Reaction Status Date / Time ciprofloxacin [From Cipro] Allergy Rash/Hives Verified 11/14/21 10:59 Review of Systems ROS Statement: Those systems with pertinent positive or pertinent negative responses have been documented in the HPI. ROS Other: All systems not noted in ROS Statement are negative. Constitutional: Denies: fever, chills, weakness Respiratory: Denies: cough, dyspnea Cardiovascular: Reports: edema (Chronic). Denies: chest pain, palpitations, orthopnea Gastrointestinal: Denies: abdominal pain, vomiting Musculoskeletal: Reports: as per HPI. Denies: back pain Skin: Reports: lesions (Chronic stasis change). Denies: rash Neurological: Denies: headache, weakness Psychiatric: Denies: homicidal thoughts, suicidal thoughts Past Medical History Past Medical History: Coronary Artery Disease (CAD), Cancer, Diabetes Mellitus, Hyperlipidemia, Hypertension, Myocardial Infarction ([place]), Renal Disease Additional Past Medical History / Comment(s): skin cancer on nose August 2020 Last Myocardial Infarction Date:: 02/12/2019 History of Any Multi-Drug Resistant Organisms: None Reported Past Surgical History: Heart Catheterization, Heart Catheterization With Stent, Orthopedic Surgery Additional Past Surgical History / Comment(s): skin cancer removed from nose August 2020 Past Anesthesia/Blood Transfusion Reactions: No Reported Reaction Date of Last Stent Placement:: 2012 Past Psychological History: Anxiety Smoking Status: Never smoker Past Alcohol Use History: Occasional Past Drug Use History: None Reported - Past Family History Mother Family Medical History: Coronary Artery Disease (CAD), Diabetes Mellitus, Myocardial Infarction ([place]) Father Family Medical History: Diabetes Mellitus, Renal Disease family Additional Family Medical History / Comment(s): Mother with history of diabetes mellitus and CAD, father with history of heart disease and diabetes General Exam Limitations: physical limitation Course Vital Signs 11/23/21 00:55 Temperature 97.9 F Pulse Rate 74 Respiratory 18 Rate Blood Pressure 109/68 O2 Sat by Pulse 92 L Oximetry Medical Decision Making - Medical Decision Making This patient is 66-year-old man with chronic leg pain. He has received analgesia here and states he is feeling better. Patient stable for transport back to his long-term care facility Disposition Clinical Impression: Stasis dermatitis of both legs Disposition: HOME SELF-CARE Condition: Good Instructions (If sedation given, give patient instructions): Chronic Wounds (ED) Is patient prescribed a controlled substance at d/c from ED?: No Referrals: Marcelino Jernigan DO [Primary Care Provider] - 1-2 days
== END 2021-11-23 08:51 | disposition home or self-care (01) ==
LOC: EC 00:46
DX: I87.2 Venous insufficiency (chronic) (peripheral) (principal); E11.9 Type 2 diabetes mellitus without complications; I25.2 Old myocardial infarction; I10 Essential (primary) hypertension; E78.5 Hyperlipidemia, unspecified; Z79.899 Other long term (current) drug therapy; Z79.01 Long term (current) use of anticoagulants; Z79.4 Long term (current) use of insulin; Z88.1 Allergy status to other antibiotic agents
CPT/HCPCS: 99283; 96372; J2270

== ENCOUNTER 2021-12-02 20:17 | Observation (INO) | payer MEDICARE ==
[2021-12-02] MEDS ORDERED: SODIUM CHLORIDE 0.9% 1,000 ML IV STA (21:05)
--- NOTE | 2021-12-02 21:06 | ED ---
Recheck HPI - General Chief Complaint: Skin/Abscess/Foreign Body Stated Complaint: Left Leg Infection Time Seen by Provider: 12/02/21 20:21 Source: patient Mode of arrival: EMS Limitations: no limitations - Related Data Home Medications Medication Instructions Recorded Confirmed Nitroglycerin Sl Tabs [Nitrostat] 0.4 mg SL Q5M PRN 10/20/17 11/14/21 Acetaminophen Tab [Tylenol] 650 mg PO Q6H PRN 08/22/21 11/14/21 FLUoxetine HCL [PROzac] 20 mg PO DAILY 08/22/21 11/14/21 Apixaban [Eliquis] 5 mg PO BID 11/14/21 11/14/21 Cholecalciferol [Vitamin D3 (25 25 mcg PO DAILY 11/14/21 11/14/21 Mcg = 1000 Iu)] INSULIN ASPART (NovoLOG) [NovoLOG 3 unit SQ AC-TID@07,11,16 11/14/21 11/14/21 (formulary)] INSULIN ASPART (NovoLOG) [NovoLOG See Protocol SQ AC-TID@07,11,1600 11/14/21 11/14/21 (formulary)] Metoprolol Succinate (ER) [Toprol 50 mg PO BID@0800,2000 11/14/21 11/14/21 XL] Tamsulosin [Flomax] 0.4 mg PO HS 11/14/21 11/14/21 Previous Rx's Medication Instructions Recorded Atorvastatin [Lipitor] 20 mg PO HS #1 tablet 10/25/21 allopurinoL 100 mg PO DAILY #1 tab 10/26/21 ALPRAZolam [Xanax] 0.25 mg PO BID #6 tab 11/17/21 Collagenase [Santyl Ointment] 1 applic TOPICAL DAILY each 11/17/21 HYDROcodone/APAP 7.5-325MG [[place] 1 tab PO Q6H PRN #12 tab 11/17/21 7.5-325] Torsemide [Demadex] 20 mg PO DAILY #0 11/20/21 Spironolactone [Aldactone] 12.5 mg PO DAILY tab 11/21/21 Allergies Allergy/AdvReac Type Severity Reaction Status Date / Time ciprofloxacin [From Cipro] Allergy Rash/Hives Verified 11/14/21 10:59 Review of Systems ROS Statement: Those systems with pertinent positive or pertinent negative responses have been documented in the HPI. ROS Other: All systems not noted in ROS Statement are negative. Past Medical History Past Medical History: Coronary Artery Disease (CAD), Cancer, Diabetes Mellitus, Hyperlipidemia, Hypertension, Myocardial Infarction ([place]), Renal Disease Additional Past Medical History / Comment(s): skin cancer on nose August 2020 Last Myocardial Infarction Date:: 02/12/2019 History of Any Multi-Drug Resistant Organisms: None Reported Past Surgical History: Heart Catheterization, Heart Catheterization With Stent, Orthopedic Surgery Additional Past Surgical History / Comment(s): skin cancer removed from nose August 2020 Past Anesthesia/Blood Transfusion Reactions: No Reported Reaction Date of Last Stent Placement:: 2012 Past Psychological History: Anxiety Smoking Status: Never smoker Past Alcohol Use History: Occasional Past Drug Use History: None Reported - Past Family History Mother Family Medical History: Coronary Artery Disease (CAD), Diabetes Mellitus, Myocardial Infarction ([place]) Father Family Medical History: Diabetes Mellitus, Renal Disease family Additional Family Medical History / Comment(s): Mother with history of diabetes mellitus and CAD, father with history of heart disease and diabetes General Exam Limitations: no limitations Course Vital Signs 12/02/21 20:24 Temperature 97.8 F Pulse Rate 59 L Respiratory 18 Rate Blood Pressure 119/79 O2 Sat by Pulse 100 Oximetry Disposition Clinical Impression: Left leg cellulitis, Diabetic leg ulcer, Diabetes with skin ulcer, Failure of outpatient treatment, Acute kidney injury Disposition: ADMITTED IP TO THIS HOSP Condition: Fair Is patient prescribed a controlled substance at d/c from ED?: No Referrals: Marcelino Jernigan DO [Primary Care Provider] - 1-2 days
[2021-12-02] MEDS ORDERED: VANCOMYCIN IV PER PHARMACY 1 EACH MISC MISCELLANE PRN (21:54)
[2021-12-02] MEDS ORDERED: VANCOMYCIN 1,500 MG in SODIUM CHLORIDE 0.9% 250 ML IVPB STA (21:58)
[2021-12-02 22:10] LABS: INR 1.4 (<1.2); Partial Thromboplastin Time 31.2 sec (22.0-30.0); Prothrombin Time 14.7 sec (9.0-12.0)
[2021-12-02 22:11] LABS: Anisocytosis Slight; HCT 35.1 % (39.0-53.0); HGB 10.4 gm/dL (13.0-17.5); Hypochromasia Marked; MCH 29.1 pg (25.0-35.0); MCHC 29.8 g/dL (31.0-37.0); MCV 97.8 fL (80.0-100.0); Macrocytosis Slight; Mean Platelet Volume 8.3; Platelet Count 162 k/uL (150-450); Poikilocytosis Slight; RBC 3.59 m/uL (4.30-5.90); RDW 17.1 % (11.5-15.5); WBC 7.4 k/uL (3.8-10.6)
[2021-12-02 22:20] LABS: Albumin 3.1 g/dL (3.5-5.0); Calcium 8.8 mg/dL (8.4-10.2); Magnesium 1.9 mg/dL (1.6-2.3); Total Bilirubin 0.5 mg/dL (0.2-1.3); Total Protein 6.7 g/dL (6.3-8.2)
[2021-12-02 22:27] LABS: Lymphocytes # (M) 0.96 k/uL (1.0-4.8); Monocytes # (M) 0.07 k/uL (0-1.0); Neutrophils # (M) 6.07 k/uL (1.3-7.7); Neutrophils % (M) 82 %; Nucleated Red Blood Cells 0 /100 WBC (0-0); Total Cells Counted 100
[2021-12-02 22:28] LABS: Polychromasia Present
[2021-12-03] MEDS ORDERED: ACETAMINOPHEN TAB 325 MG TAB PO PRN (03:40)
[2021-12-03] MEDS: HYDROcodone/APAP 7.5-325MG 1 EACH TAB PO PRN ×2 (03:59→12:19)
[2021-12-03] MEDS: TORSEMIDE 20 MG TAB PO SCH (07:29)
[2021-12-03] MEDS: allopurinoL 100 MG TAB PO SCH (07:29)
[2021-12-03] MEDS: METOPROLOL SUCCINATE (ER) 50 MG TAB.ER.24H PO SCH ×2 (07:29→22:03)
[2021-12-03] MEDS: SPIRONOLACTONE 25 MG TAB PO SCH (07:29)
[2021-12-03] MEDS: APIXABAN 5 MG TAB PO SCH ×2 (07:29→22:03)
[2021-12-03] MEDS: CHOLECALCIFEROL 25 MCG (1000 IU) TABLET PO SCH (07:30)
[2021-12-03] MEDS: FLUoxetine HCL 20 MG CAP PO SCH (07:30)
[2021-12-03] MEDS: ALPRAZolam 0.25 MG TAB PO SCH ×2 (07:35→22:03)
[2021-12-03] MEDS ORDERED: DEXTROSE 50% SYRINGE 50 ML IVP PRN ×4 (07:41→16:32)
[2021-12-03 07:50] LABS: Glucose,Whole Blood 141 mg/dL (70-110)
[2021-12-03 11:42] LABS: Glucose,Whole Blood 215 mg/dL (70-110)
[2021-12-03] MEDS ORDERED: VANCOMYCIN 1,500 MG in SODIUM CHLORIDE 0.9% 250 ML IVPB SCH (12:00)
[2021-12-03] MEDS: INSULIN ASPART (NovoLOG) 100 UNIT/ML VIAL SQ SCH ×3 (12:29→22:03)
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
[2021-12-03] MEDS ORDERED: ONDANSETRON 4 MG/2 ML VIAL IVP PRN (16:31)
[2021-12-03] MEDS ORDERED: CALCIUM CARBONATE 500 MG CHEWABLE PO PRN (16:31)
[2021-12-03] MEDS ORDERED: NALOXONE 0.4 MG/ML 1 ML VIAL IV PRN (16:31)
[2021-12-03] MEDS ORDERED: TEMAZEPAM 15 MG CAP PO PRN (16:31)
[2021-12-03] MEDS ORDERED: LACTULOSE 20 GM/30 ML CUP PO PRN (16:31)
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
[2021-12-03 16:43] LABS: Glucose,Whole Blood 237 mg/dL (70-110)
[2021-12-03 19:50] LABS: Glucose,Whole Blood 255 mg/dL (70-110)
[2021-12-03] MEDS: ATORVASTATIN 20 MG TAB PO SCH (22:03)
[2021-12-03] MEDS: TAMSULOSIN 0.4 MG CAP.ER.24H PO SCH (22:04)
[2021-12-04 04:22] LABS: African American GFR (CKD) 41 (>60 ml/min/1.73 sqM); Anion Gap 7 mmol/L; Blood Urea Nitrogen 26 mg/dL (9-20); Calcium 8.8 mg/dL (8.4-10.2); Carbon Dioxide 27 mmol/L (22-30); Chloride 101 mmol/L (98-107); Glucose 157 mg/dL (74-99); Non-African American GFR(CKD) 35 (>60 ml/min/1.73 sqM); Potassium 4.4 mmol/L (3.5-5.1); Sodium 135 mmol/L (137-145)
[2021-12-04 07:33] LABS: Glucose,Whole Blood 186 mg/dL (70-110)
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
[2021-12-04] MEDS: INSULIN ASPART (NovoLOG) 100 UNIT/ML VIAL SQ SCH ×4 (08:46→20:17)
[2021-12-04] MEDS: HYDROcodone/APAP 7.5-325MG 1 EACH TAB PO PRN ×3 (08:47→20:22)
[2021-12-04] MEDS: TORSEMIDE 20 MG TAB PO SCH (08:47)
[2021-12-04] MEDS: METOPROLOL SUCCINATE (ER) 50 MG TAB.ER.24H PO SCH ×2 (08:48→20:17)
[2021-12-04] MEDS: FLUoxetine HCL 20 MG CAP PO SCH (08:48)
[2021-12-04] MEDS: ALPRAZolam 0.25 MG TAB PO SCH ×2 (08:48→20:08)
[2021-12-04] MEDS: APIXABAN 5 MG TAB PO SCH ×2 (08:48→20:08)
[2021-12-04] MEDS: SPIRONOLACTONE 25 MG TAB PO SCH (08:48)
[2021-12-04] MEDS: allopurinoL 100 MG TAB PO SCH (08:48)
[2021-12-04] MEDS: CHOLECALCIFEROL 25 MCG (1000 IU) TABLET PO SCH (08:48)
--- NOTE | 2021-12-04 09:52 | P.PN ---
Subjective Progress Note Date: 12/04/21 Principal diagnosis: Chronic lower extremity wounds Patient was seen and examined as follow-up. Infectious disease is following changed patient's vancomycin to Fortaz. Patient is afebrile. No acute changes through the night. Objective - Vital Signs Vital signs: Vital Signs Temp 97.7 F 12/04/21 07:00 Pulse 69 12/04/21 07:00 Resp 19 12/04/21 07:00 BP 122/85 12/04/21 07:00 Pulse Ox 93 L 12/04/21 07:00 FiO2 Intake & Output 12/03/21 12/04/21 12/04/21 18:59 06:59 18:59 Intake Total 400 Balance 400 Intake: Oral 400 Other: Voiding Method Toilet Toilet # Voids 3 2 - Exam General appearance: The patient is alert, appears in no acute distress, obese. HET: Head is normocephalic and atraumatic. Pupils are equal and reactive. Extremities: Bilateral palpable femoral pulses. Bilateral lower extremity e nena. Right lower extremity with hyperpigmentation. Left lower extremity wounds with mild fibrinous base. No eschar. Surrounding erythema significantly improved from previous Sensation intact with good movement of bilateral lower extremities. Neurological: No focal deficits. Strength and sensation are grossly intact. - Labs CBC & Chem 7: 12/02/21 21:44 12/04/21 03:50 Labs: Abnormal Lab Results - Last 24 Hours (Table) 12/03/21 12/03/21 12/03/21 Range/Units 08:20 11:40 16:41 Sodium (137-145) mmol/L BUN (9-20) mg/dL Creatinine (0.66-1.25) mg/dL Glucose (74-99) mg/dL POC Glucose (mg/dL) 215 H 237 H (70-110) mg/dL Hemoglobin A1c 7.6 H (0.0-6.0) % 12/03/21 12/04/21 12/04/21 Range/Units 19:48 03:50 07:32 Sodium 135 L (137-145) mmol/L BUN 26 H (9-20) mg/dL Creatinine 1.92 H (0.66-1.25) mg/dL Glucose 157 H (74-99) mg/dL POC Glucose (mg/dL) 255 H 186 H (70-110) mg/dL Hemoglobin A1c (0.0-6.0) % Microbiology - Last 24 Hours (Table) 12/02/21 21:46 Blood Culture - Preliminary Blood No Growth after 24 hours Assessment and Plan Assessment: 1. Chronic left lower extremity wounds 2. Recent DVT left lower extremity on Eliquis 3. Chronic venous insufficiency 4. Diabetes mellitus 5. Coronary artery disease status post NE, cardiac stents Plan: 1. Continue daily dressing change with their any, moistened gauze and Kerlix 2. Continue with recommendations from infectious disease 3. Consult to wound clinic, appreciate their recommendations 4. There is no indication for any surgical debridement at this time. Thank you for this consultation, we will sign off at this time. The impression and plan of care has been dictated as directed. Dr. Mike I performed a history and examination of this patient, discussed the same with the dictator. I agree with the dictator's note ,documented as a scribe. Any additional findings or plans will be noted.
[2021-12-04 12:41] LABS: Glucose,Whole Blood 272 mg/dL (70-110)
[2021-12-04 17:32] LABS: Glucose,Whole Blood 255 mg/dL (70-110)
--- NOTE | 2021-12-04 18:17 | P.PN ---
Progress Note - Text Progress Note Date: 12/04/21 Chief Complaint: Leg wounds This is a pleasant 66-year-old patient, follows with Dr. Mike Escobar. Chronic stable medical conditions include CAD with stent, diabetes, hypertension, hyperlipidemia anxiety. CAD, hyperuricemia, left leg DVT in October 2021, CHF EF 20 have 25% Patient recently in the hospital from November 14 through November 21 with leg wounds. Was seen by ID and vascular. Wound culture was positive for stenotrophomonas maltophilia. Discharged on IV Fortaz. Patient now comes back as he thinks his wound is not improving. Denies any obvious fever and chills. Has been getting wound care. Some pain at times. Appetite is fair. December 04: Did walk a bit. Oral intake good. No fever no chills. On IV ceftazidime. Blood culture negative. Seen by vascular Dr. Mike. Not for any surgical debridement. Repeat wound cultures pending. Active Medications Acetaminophen (Acetaminophen Tab 325 Mg Tab) 650 mg PO Q6H PRN PRN Reason: Pain or Fever > 100.5 Hydrocodone Bitart/Acetaminophen (Hydrocodone/Apap 7.5-325mg 1 Each Tab) 1 each PO Q6H PRN PRN Reason: Pain Last Admin: 12/04/21 13:52 Dose: 1 each Allopurinol (Allopurinol 100 Mg Tab) 100 mg PO DAILY [facility] Last Admin: 12/04/21 08:48 Dose: 100 mg Alprazolam (Alprazolam 0.25 Mg Tab) 0.25 mg PO BID [facility] Last Admin: 12/04/21 08:48 Dose: 0.25 mg Apixaban (Apixaban 5 Mg Tab) 5 mg PO BID [facility]; Protocol Last Admin: 12/04/21 08:48 Dose: 5 mg Atorvastatin Calcium (Atorvastatin 20 Mg Tab) 20 mg PO HS [facility] Last Admin: 12/03/21 22:03 Dose: 20 mg Calcium Carbonate/Glycine (Calcium Carbonate 500 Mg Chewable) 1,000 mg PO Q4HR PRN PRN Reason: Dyspepsia Cholecalciferol (Cholecalciferol 25 Mcg (1000 Iu) Tablet) 25 mcg PO DAILY [facility] Last Admin: 12/04/21 08:48 Dose: 25 mcg Dextrose/Water (Dextrose 50% Syringe 50 Ml) 25 ml IVP PER PROTOCOL PRN; Protocol PRN Reason: Hypoglycemia Dextrose/Water (Dextrose 50% Syringe 50 Ml) 50 ml IVP PER PROTOCOL PRN; Protocol PRN Reason: Hypoglycemia Dextrose/Water (Dextrose 50% Syringe 50 Ml) 25 ml IVP PER PROTOCOL PRN; Protocol PRN Reason: Hypoglycemia Dextrose/Water (Dextrose 50% Syringe 50 Ml) 50 ml IVP PER PROTOCOL PRN; Protocol PRN Reason: Hypoglycemia Fluoxetine HCl (Fluoxetine Hcl 20 Mg Cap) 20 mg PO DAILY [facility] Last Admin: 12/04/21 08:48 Dose: 20 mg Ceftazidime 2 gm/ Sodium (Chloride) 100 mls @ 25 mls/hr IVPB Q12HR [facility]; Protocol Insulin Aspart (Insulin Aspart (Novolog) 100 Unit/Ml Vial) 0 unit SQ ACHS [facility]; Protocol Last Admin: 12/04/21 18:05 Dose: 3 unit Lactulose (Lactulose 20 Gm/30 Ml Cup) 20 gm PO DAILY PRN PRN Reason: Constipation Metoprolol Succinate (Metoprolol Succinate (Er) 50 Mg Tab.Er.24h) 50 mg PO BID [facility] Last Admin: 12/04/21 08:48 Dose: 50 mg Naloxone HCl (Naloxone 0.4 Mg/Ml 1 Ml Vial) 0.2 mg IV Q2M PRN PRN Reason: Opioid Reversal Ondansetron HCl (Ondansetron 4 Mg/2 Ml Vial) 4 mg IVP Q8HR PRN PRN Reason: Nausea And Vomiting Spironolactone (Spironolactone 25 Mg Tab) 12.5 mg PO DAILY [facility] Last Admin: 12/04/21 08:48 Dose: 12.5 mg Tamsulosin HCl (Tamsulosin 0.4 Mg Cap.Er.24h) 0.4 mg PO HS [facility] Last Admin: 12/03/21 22:04 Dose: 0.4 mg Temazepam (Temazepam 15 Mg Cap) 15 mg PO HS PRN PRN Reason: Insomnia Torsemide (Torsemide 20 Mg Tab) 20 mg PO DAILY [facility] Last Admin: 12/04/21 08:47 Dose: 20 mg Past medical history to include: CAD with stent, diabetes, hypertension, hyperlipidemia, skin cancer on the nose in August 2020, anxiety, left leg common femoral DVT October 2021, hyperuricemia, hepatic steatosis, CHF EF 20-25% 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 Alcohol rarely. Currently at [facility] work [facility] Family history: Diabetes, CAD Physical examination: VITAL SIGNS: 97.6, 71, 19, 123.74, 98% room air GENERAL: Laying in bed, awake, comfortable EYES: Pupils equal. Conjunctiva normal. HEENT: External appearance of nose and ears normal, oral cavity grossly normal. NECK: JVD not raised; masses not palpable. HEART: First and second heart sounds are normal; some edema. LUNGS: Respiratory rate normal; decreased breath sound . ABDOMEN: Soft, nontender, liver spleen not palpable, no masses palpable. PSYCH: [Alert and oriented x3; mood and affect slightly anxious LYMPHATICS: No lymph node palpable neck and axilla Musculoskeletal: Evidence of OA DERMATOLOGICAL: Multiple wounds on the left lower extremity with some sloughing and redness. INVESTIGATIONS, reviewed in the clinical context: December 04: Potassium 4.4 creatinine 1.9 to White count 7.4 hemoglobin 10.4 platelets 162 potassium 5 BUN, creatinine 1.84 Recent studies November 21: Sodium 136 potassium 4.6 BUN 33 creatinine 2.41 Wound Cultures [ November 17] showing Lucila albicans and stenotrophomonas maltophilia Previous labs [October 2021] Uric acid 10.7 2-D echocardiogram: EF 20-25%. Left lower extremity venous Doppler: DVT in the common femoral vein. Gallbladder ultrasound: Gallbladder filled with stones. Possible hepatic steatosis. Arterial Doppler results discussed with Dr. Mike: No evidence of vascular compromise Assessment and plan: -Acute on chronic multiple wounds painful left lower extremity likely from venous ulcers from recent DVT. Cultures from November 17 showing Lucila albicans and stenotrophomonas maltophilia Started IV Fortaz. Topical Santyl. Wound care. Seen by vascular. Not for any surgical intervention. -Chronic DVT of the left common femoral vein, in 10/16/2021 eliquis . -Ischemic cardiomyopathy, EF 20-25% Toprol-XL 50 mg twice daily. Aldactone 12.5 mg daily. Demadex -Choledocholithiasis. Asymptomatic -CAD with a history of stent Aspirin 81 mg daily, Lopressor -Diabetes mellitus type 2, chronically on insulin Follow Accu-Cheks and sliding scale insulin. 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 Creatinine 1. 96 on 10/26/2021 -Anxiety not otherwise specified Xanax 0.25 mg by mouth twice a day -Hyperuricemia allopurinol 100 mg daily -Full code IV ceftaz. Other medications and wound care to continue. Discussed with patient.
[2021-12-04] MEDS: TAMSULOSIN 0.4 MG CAP.ER.24H PO SCH (20:08)
[2021-12-04] MEDS: ATORVASTATIN 20 MG TAB PO SCH (20:08)
[2021-12-04 20:15] LABS: Glucose,Whole Blood 201 mg/dL (70-110)
--- NOTE | 2021-12-05 00:09 | P.PN ---
Subjective Progress Note Date: 12/04/21 Principal diagnosis: Left lower extremity wound and cellulitis Patient is a 66 year male with a past medical history significant for a chronic nonhealing left lower extremity that was recently debridement and culture were positive for stenotrophomonas, patient left the skilled nursing against medical advice and subsequently presenting to the hospital for further treatment. On today's evaluation that is 12/04/2021, the patient denies having any fever or chills, the patient pain to the left lower extremity is currently controlled, the patient denies having any chest pain or shortness of breath or cough no abdominal pain no diarrhea Objective - Vital Signs Vital signs: Vital Signs Temp 97.7 F 12/04/21 07:00 Pulse 69 12/04/21 07:00 Resp 19 12/04/21 07:00 BP 122/85 12/04/21 07:00 Pulse Ox 93 L 12/04/21 07:00 FiO2 Intake & Output 12/03/21 12/04/21 12/04/21 18:59 06:59 18:59 Intake Total 400 Balance 400 Intake: Oral 400 Other: Voiding Method Toilet Toilet # Voids 3 2 1 - Exam GENERAL DESCRIPTION: An elderly male lying in bed in no distress RESPIRATORY SYSTEM: Unlabored breathing , decreased breath sounds at bases HEART: S1 S2 regular rate and rhythm , ABDOMEN: Soft , no tenderness EXTREMITIES: left lower extremity wounds are currently dressed - Labs CBC & Chem 7: 12/02/21 21:44 12/04/21 03:50 Labs: Abnormal Lab Results - Last 24 Hours (Table) 12/03/21 12/03/21 12/04/21 Range/Units 16:41 19:48 03:50 Sodium 135 L (137-145) mmol/L BUN 26 H (9-20) mg/dL Creatinine 1.92 H (0.66-1.25) mg/dL Glucose 157 H (74-99) mg/dL POC Glucose (mg/dL) 237 H 255 H (70-110) mg/dL 12/04/21 12/04/21 Range/Units 07:32 12:40 Sodium (137-145) mmol/L BUN (9-20) mg/dL Creatinine (0.66-1.25) mg/dL Glucose (74-99) mg/dL POC Glucose (mg/dL) 186 H 272 H (70-110) mg/dL Microbiology - Last 24 Hours (Table) 12/02/21 21:46 Blood Culture - Preliminary Blood No Growth after 24 hours Assessment and Plan (1) Non-pressure chronic ulcer of left ankle with fat layer exposed Current Visit: No Status: Acute Code(s): L97.322 - NON-PRESSURE CHRONIC ULCER OF LEFT ANKLE W FAT LAYER EXPOSED SNOMED Code(s): 50774248886801956 (2) Non-pressure chronic ulcer of left calf with fat layer exposed Current Visit: No Status: Acute Code(s): L97.222 - NON-PRESSURE CHRONIC ULCER OF LEFT CALF W FAT LAYER EXPOSED SNOMED Code(s): 58230779045414059 Plan: 1patient with a chronic nonhealing wound to the left lower extremity likely venous stasis ulcer with secondary cellulitis with a recent debridement did show stenotrophomonas for the patient was receiving Fortaz unfortunately the patient is left the skilled nursing as he did not like the care patient still have multiple wounds to left lower extremity with slough tissue however surrounding redness has improved. 2patient to continue local wound care with [facility] followed by moist dressing change daily vascular surgery is following the patient. 3patient to continue with Fortaz while inpatient. Time with Patient: Less than 30
[2021-12-05 07:28] LABS: Glucose,Whole Blood 131 mg/dL (70-110)
[2021-12-05] MEDS: INSULIN ASPART (NovoLOG) 100 UNIT/ML VIAL SQ SCH ×4 (08:11→20:01)
[2021-12-05] MEDS: HYDROcodone/APAP 7.5-325MG 1 EACH TAB PO PRN ×2 (08:40→20:02)
[2021-12-05] MEDS: FLUoxetine HCL 20 MG CAP PO SCH (08:42)
[2021-12-05] MEDS: APIXABAN 5 MG TAB PO SCH ×2 (08:42→20:02)
[2021-12-05] MEDS: ALPRAZolam 0.25 MG TAB PO SCH ×2 (08:42→20:02)
[2021-12-05] MEDS: TORSEMIDE 20 MG TAB PO SCH (08:42)
[2021-12-05] MEDS: METOPROLOL SUCCINATE (ER) 50 MG TAB.ER.24H PO SCH ×2 (08:42→20:01)
[2021-12-05] MEDS: allopurinoL 100 MG TAB PO SCH (08:43)
[2021-12-05] MEDS: SPIRONOLACTONE 25 MG TAB PO SCH (08:43)
[2021-12-05] MEDS: CHOLECALCIFEROL 25 MCG (1000 IU) TABLET PO SCH (08:43)
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
[2021-12-05] MEDS ORDERED: LEVOFLOXACIN 500 MG TAB PO STA (11:55)
--- NOTE | 2021-12-05 11:55 | P.PN ---
Subjective Progress Note Date: 12/05/21 Principal diagnosis: Left lower extremity wound and cellulitis Patient is a 66 year male with a past medical history significant for a chronic nonhealing left lower extremity that was recently debridement and culture were positive for stenotrophomonas, patient left the [facility] against medical advice and subsequently presenting to the hospital for further treatment. On today's evaluation that is 12/05/2021, the patient remains to be afebrile, the patient pain to the left lower extremity is controlled with the current medication, the patient denies having any chest pain or shortness of breath or cough no abdominal pain no diarrhea Objective - Vital Signs Vital signs: Vital Signs Temp 97.5 F L 12/05/21 07:25 Pulse 65 12/05/21 07:25 Resp 18 12/05/21 07:25 BP 131/79 12/05/21 07:25 Pulse Ox 98 12/05/21 07:25 FiO2 Intake & Output 12/04/21 12/05/21 12/05/21 18:59 06:59 18:59 Intake Total 400 240 Balance 400 240 Intake: Oral 400 240 Other: Voiding Method Toilet # Voids 1 1 - Exam GENERAL DESCRIPTION: An elderly male lying in bed in no distress RESPIRATORY SYSTEM: Unlabored breathing , decreased breath sounds at bases HEART: S1 S2 regular rate and rhythm , ABDOMEN: Soft , no tenderness EXTREMITIES: left lower extremity wounds are currently dressed - Labs CBC & Chem 7: 12/02/21 21:44 12/04/21 03:50 Labs: Abnormal Lab Results - Last 24 Hours (Table) 12/04/21 12/04/21 12/04/21 Range/Units 12:40 17:31 20:14 POC Glucose (mg/dL) 272 H 255 H 201 H (70-110) mg/dL 12/05/21 Range/Units 07:27 POC Glucose (mg/dL) 131 H (70-110) mg/dL Microbiology - Last 24 Hours (Table) 12/02/21 21:46 Blood Culture - Preliminary Blood No Growth after 48 hours Assessment and Plan (1) Non-pressure chronic ulcer of left ankle with fat layer exposed Current Visit: No Status: Acute Code(s): L97.322 - NON-PRESSURE CHRONIC ULCER OF LEFT ANKLE W FAT LAYER EXPOSED SNOMED Code(s): 79929243420876705 (2) Non-pressure chronic ulcer of left calf with fat layer exposed Current Visit: No Status: Acute Code(s): L97.222 - NON-PRESSURE CHRONIC ULCER OF LEFT CALF W FAT LAYER EXPOSED SNOMED Code(s): 30351359174470924 Plan: 1patient with a chronic nonhealing wound to the left lower extremity likely venous stasis ulcer with secondary cellulitis with a recent debridement did show stenotrophomonas for the patient was receiving Fortaz unfortunately the patient is left the [facility] as he did not like the care patient still have multiple wounds to left lower extremity with slough tissue however surrounding redness has improved. 2patient to continue local wound care with [facility] followed by moist dressing change daily vascular surgery is following the patient. 3patient currently being treated with Fortaz on the basis of loss culture positive for stenotrophomonas, patient due have a Cipro ALLERGY which he describing as nausea and vomiting not a true ALLERGY we will give him a dose of Levaquin if he tolerates more likely will be able to go home on oral Levaquin and no need for IV antibiotics on discharge Time with Patient: Less than 30
[2021-12-05 12:45] LABS: Glucose,Whole Blood 257 mg/dL (70-110)
[2021-12-05] MEDS: COLLAGENASE 250 UNIT/GM OINTMENT 30 GM TUBE TOPICAL SCH (13:06)
--- NOTE | 2021-12-05 13:13 | CDI ---
Documentation Clarification Form Date: 12/05/2021 12:55:42 PM From: Aurelia Nieves RN CCDS Admit Date: 12/03/2021 12:08:00 AM Patient Name: Jabier Mitchell Visit Number: [id number] Discharge Date: ATTENTION: The Clinical Documentation Specialists (CDI) and [facility] Coding Staff appreciate your assistance in clarifying documentation. Please respond to the clarification below the line at the bottom and electronically sign. The CDI & [facility] Coding staff will review the response and follow-up if needed. Please note: Queries are made part of the Legal Health Record. If you have any questions, please contact the author of this message via ITS. Dr. Derick Johnson Your patient has the documented diagnosis of unspecified CHF 12/03, H&P. Additional information regarding the type, acuity of CHF is requested. History/Risk Factors: 66-year-old male presents to the ED for nonhealing leg wounds. Medical history: Ischemic cardiomyopathy EF 20-25%; CAD; DM and HTN. 12/03, H&P. Clinical Indicators: VS/Pulse OX: B/P 119/79; HR 59; Temp 97.8 F Oral; RR 18; SpO2 100% ra Echocardiogram Results: 10/16/21 EF 25%. Right ventricle is also dilatated. There is mild mitral and tricuspid insufficiency. Treatment: Toprol XL 50mg PO BID; Aldactone 12.5mg PO Daily; Demadex 20mg PO Daily. In your professional opinion, can you please clarify the acuity and type of CHF if known? [ ] Chronic Systolic Heart Failure (reduced EF) [ ] Other, please specify [ ] Unable to determine (Template Last Revised: June 2020) Chronic congestive heart failure from systolic dysfunction EF 20-25% MTDD
[2021-12-05 17:17] LABS: Glucose,Whole Blood 253 mg/dL (70-110)
--- NOTE | 2021-12-05 19:08 | P.PN ---
Progress Note - Text Progress Note Date: 12/05/21 Chief Complaint: Leg wounds This is a pleasant 66-year-old patient, follows with Dr. Mike Escobar. Chronic stable medical conditions include CAD with stent, diabetes, hypertension, hyperlipidemia anxiety. CAD, hyperuricemia, left leg DVT in October 2021, CHF EF 20 have 25% Patient recently in the hospital from November 14 through November 21 with leg wounds. Was seen by ID and vascular. Wound culture was positive for stenotrophomonas maltophilia. Discharged on IV Fortaz. Patient now comes back as he thinks his wound is not improving. Denies any obvious fever and chills. Has been getting wound care. Some pain at times. Appetite is fair. December 04: Did walk a bit. Oral intake good. No fever no chills. On IV ceftazidime. Blood culture negative. Seen by vascular Dr. Mike. Not for any surgical debridement. Repeat wound cultures pending. December 05: Patient is given a dose of Levaquin today. Did tolerate the same. Discussed with ID . 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 Eating well. Comfortable. Active Medications Acetaminophen (Acetaminophen Tab 325 Mg Tab) 650 mg PO Q6H PRN PRN Reason: Pain or Fever > 100.5 Hydrocodone Bitart/Acetaminophen (Hydrocodone/Apap 7.5-325mg 1 Each Tab) 1 each PO Q6H PRN PRN Reason: Pain Last Admin: 12/05/21 08:40 Dose: 1 each Allopurinol (Allopurinol 100 Mg Tab) 100 mg PO DAILY [facility] Last Admin: 12/05/21 08:43 Dose: 100 mg Alprazolam (Alprazolam 0.25 Mg Tab) 0.25 mg PO BID [facility] Last Admin: 12/05/21 08:42 Dose: 0.25 mg Apixaban (Apixaban 5 Mg Tab) 5 mg PO BID [facility]; Protocol Last Admin: 12/05/21 08:42 Dose: 5 mg Atorvastatin Calcium (Atorvastatin 20 Mg Tab) 20 mg PO HS [facility] Last Admin: 12/04/21 20:08 Dose: 20 mg Calcium Carbonate/Glycine (Calcium Carbonate 500 Mg Chewable) 1,000 mg PO Q4HR PRN PRN Reason: Dyspepsia Cholecalciferol (Cholecalciferol 25 Mcg (1000 Iu) Tablet) 25 mcg PO DAILY [facility] Last Admin: 12/05/21 08:43 Dose: 25 mcg Collagenase (Collagenase 250 Unit/Gm Ointment 30 Gm Tube) 1 applic TOPICAL DAILY [facility]; Protocol Last Admin: 12/05/21 13:06 Dose: 1 applic Dextrose/Water (Dextrose 50% Syringe 50 Ml) 25 ml IVP PER PROTOCOL PRN; Protocol PRN Reason: Hypoglycemia Dextrose/Water (Dextrose 50% Syringe 50 Ml) 50 ml IVP PER PROTOCOL PRN; Protocol PRN Reason: Hypoglycemia Dextrose/Water (Dextrose 50% Syringe 50 Ml) 25 ml IVP PER PROTOCOL PRN; Protocol PRN Reason: Hypoglycemia Dextrose/Water (Dextrose 50% Syringe 50 Ml) 50 ml IVP PER PROTOCOL PRN; Protocol PRN Reason: Hypoglycemia Fluoxetine HCl (Fluoxetine Hcl 20 Mg Cap) 20 mg PO DAILY [facility] Last Admin: 12/05/21 08:42 Dose: 20 mg Insulin Aspart (Insulin Aspart (Novolog) 100 Unit/Ml Vial) 0 unit SQ ACHS [facility]; Protocol Last Admin: 12/05/21 17:26 Dose: 3 unit Lactulose (Lactulose 20 Gm/30 Ml Cup) 20 gm PO DAILY PRN PRN Reason: Constipation Levofloxacin (Levofloxacin 500 Mg Tab) 500 mg PO Q24H [facility]; Protocol Metoprolol Succinate (Metoprolol Succinate (Er) 50 Mg Tab.Er.24h) 50 mg PO BID [facility] Last Admin: 12/05/21 08:42 Dose: 50 mg Naloxone HCl (Naloxone 0.4 Mg/Ml 1 Ml Vial) 0.2 mg IV Q2M PRN PRN Reason: Opioid Reversal Ondansetron HCl (Ondansetron 4 Mg/2 Ml Vial) 4 mg IVP Q8HR PRN PRN Reason: Nausea And Vomiting Spironolactone (Spironolactone 25 Mg Tab) 12.5 mg PO DAILY [facility] Last Admin: 12/05/21 08:43 Dose: 12.5 mg Tamsulosin HCl (Tamsulosin 0.4 Mg Cap.Er.24h) 0.4 mg PO HS [facility] Last Admin: 12/04/21 20:08 Dose: 0.4 mg Temazepam (Temazepam 15 Mg Cap) 15 mg PO HS PRN PRN Reason: Insomnia Torsemide (Torsemide 20 Mg Tab) 20 mg PO DAILY [facility] Last Admin: 12/05/21 08:42 Dose: 20 mg Past medical history to include: CAD with stent, diabetes, hypertension, hyperlipidemia, skin cancer on the nose in August 2020, anxiety, left leg common femoral DVT October 2021, hyperuricemia, hepatic steatosis, CHF EF 20-25% 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 Alcohol rarely. Currently at [facility] Family history: Diabetes, CAD Physical examination: VITAL SIGNS: 97.6, 63, 18, 96.54, 99% room air GENERAL: Laying in bed, awake, comfortable EYES: Pupils equal. Conjunctiva normal. HEENT: External appearance of nose and ears normal, oral cavity grossly normal. NECK: JVD not raised; masses not palpable. HEART: First and second heart sounds are normal; some edema. LUNGS: Respiratory rate normal; decreased breath sound . ABDOMEN: Soft, nontender, liver spleen not palpable, no masses palpable. PSYCH: [Alert and oriented x3; mood and affect slightly anxious LYMPHATICS: No lymph node palpable neck and axilla Musculoskeletal: Evidence of OA DERMATOLOGICAL: Multiple wounds on the left lower extremity with some sloughing and redness. INVESTIGATIONS, reviewed in the clinical context: December 04: Potassium 4.4 creatinine 1.9 to White count 7.4 hemoglobin 10.4 platelets 162 potassium 5 BUN, creatinine 1.84 Recent studies November 21: Sodium 136 potassium 4.6 BUN 33 creatinine 2.41 Wound Cultures [ November 17] showing Lucila albicans and stenotrophomonas maltophilia Previous labs [October 2021] Uric acid 10.7 2-D echocardiogram: EF 20-25%. Left lower extremity venous Doppler: DVT in the common femoral vein. Gallbladder ultrasound: Gallbladder filled with stones. Possible hepatic steat osis. Arterial Doppler results discussed with Dr. Mike: No evidence of vascular compromise Assessment and plan: -Acute on chronic multiple wounds painful left lower extremity likely from venous ulcers from recent DVT. Cultures from November 17 showing Lucila albicans and stenotrophomonas maltophilia Started IV Fortaz. Wound care. Seen by vascular. Not for any surgical intervention. Trial of by mouth Levaquin today. -Chronic DVT of the left common femoral vein, in 10/16/2021 eliquis . -Ischemic cardiomyopathy, EF 20-25% Toprol-XL 50 mg twice daily. Aldactone 12.5 mg daily. Demadex -Choledocholithiasis. Asymptomatic -CAD with a history of stent Aspirin 81 mg daily, Lopressor -Diabetes mellitus type 2, chronically on insulin Follow Accu-Cheks and sliding scale insulin. 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 Creatinine 1. 96 on 10/26/2021 -Anxiety not otherwise specified Xanax 0.25 mg by mouth twice a day -Hyperuricemia allopurinol 100 mg daily -Full code Patient tried on Levaquin today. Did tolerate the same. We will give another dose tomorrow. DC home tomorrow.
[2021-12-05 19:46] LABS: Glucose,Whole Blood 241 mg/dL (70-110)
[2021-12-05] MEDS: ATORVASTATIN 20 MG TAB PO SCH (20:01)
[2021-12-05] MEDS: TAMSULOSIN 0.4 MG CAP.ER.24H PO SCH (20:02)
[2021-12-06] MEDS: HYDROcodone/APAP 7.5-325MG 1 EACH TAB PO PRN ×2 (02:08→08:29)
[2021-12-06 07:36] LABS: Glucose,Whole Blood 122 mg/dL (70-110)
[2021-12-06] MEDS ORDERED: LEVOFLOXACIN 500 MG TAB PO SCH (08:00)
[2021-12-06] MEDS: INSULIN ASPART (NovoLOG) 100 UNIT/ML VIAL SQ SCH ×2 (08:28→13:33)
[2021-12-06] MEDS: APIXABAN 5 MG TAB PO SCH (08:29)
[2021-12-06] MEDS: ALPRAZolam 0.25 MG TAB PO SCH (08:29)
[2021-12-06] MEDS: FLUoxetine HCL 20 MG CAP PO SCH (08:29)
[2021-12-06] MEDS: allopurinoL 100 MG TAB PO SCH (08:29)
[2021-12-06] MEDS: TORSEMIDE 20 MG TAB PO SCH (08:29)
[2021-12-06] MEDS: CHOLECALCIFEROL 25 MCG (1000 IU) TABLET PO SCH (08:29)
[2021-12-06] MEDS: METOPROLOL SUCCINATE (ER) 50 MG TAB.ER.24H PO SCH (08:29)
[2021-12-06] MEDS: SPIRONOLACTONE 25 MG TAB PO SCH (08:30)
[2021-12-06] MEDS: COLLAGENASE 250 UNIT/GM OINTMENT 30 GM TUBE TOPICAL SCH (08:30)
[2021-12-06 08:47] VITALS: BP 104/63; PULSE 62; RESP 18; TEMP 97.4
[2021-12-06 12:40] LABS: Glucose,Whole Blood 212 mg/dL (70-110)
--- NOTE | 2021-12-06 15:26 | P.DS ---
Providers Date of admission: 12/03/21 00:08 Expected date of discharge: 12/06/21 Attending physician: Derick Johnson Consults: 12/03/21 14:23 Consult Physician Routine Consulting Provider: Cassidy Naik Consult Reason/Comments: leg wounds Do you want consulting provider notified?: Yes Primary care physician: Mike Escobar [facility] Course: Chief Complaint: Leg wounds This is a pleasant 66-year-old patient, follows with Dr. Mike Escobar. Chronic stable medical conditions include CAD with stent, diabetes, hypertension, hyperlipidemia anxiety. CAD, hyperuricemia, left leg DVT in October 2021, CHF EF 20 have 25% Patient recently in the hospital from November 14 through November 21 with leg wounds. Was seen by ID and vascular. Wound culture was positive for stenotrophomonas maltophilia. Discharged on IV Fortaz. Patient now comes back as he thinks his wound is not improving. Denies any obvious fever and chills. Has been getting wound care. Some pain at times. Appetite is fair. December 04: Did walk a bit. Oral intake good. No fever no chills. On IV ceftazidime. Blood culture negative. Seen by vascular Dr. Mike. Not for any surgical debridement. Repeat wound cultures pending. December 05: Patient is given a dose of Levaquin today. Did tolerate the same. Discussed with ID . We will jacket changer to Levaquin to DC home for 2 weeks. Eating well. Comfortable. December 06: Comfortable. Eating well. Tolerating Levaquin. 2 weeks of Levaquin to complete. Will be going home. Home care. Has family that also helped wound care. Will follow with vascular. Medications discussed. 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 Alcohol rarely. Currently at [facility] Family history: Diabetes, CAD Physical examination: VITAL SIGNS: 97.4, 62, 18, 10 4 x 63, 96% room air GENERAL: Laying in bed, awake, comfortable EYES: Pupils equal. Conjunctiva normal. HEENT: External appearance of nose and ears normal, oral cavity grossly normal. NECK: JVD not raised; masses not palpable. HEART: First and second heart sounds are normal; some edema. LUNGS: Respiratory rate normal; decreased breath sound . ABDOMEN: Soft, nontender, liver spleen not palpable, no masses palpable. PSYCH: [Alert and oriented x3; mood and affect slightly anxious LYMPHATICS: No lymph node palpable neck and axilla Musculoskeletal: Evidence of OA DERMATOLOGICAL: Multiple wounds on the left lower extremity with some sloughing and redness. INVESTIGATIONS, reviewed in the clinical context: December 04: Potassium 4.4 creatinine 1.9 to White count 7.4 hemoglobin 10.4 platelets 162 potassium 5 BUN, creatinine 1.84 Recent studies November 21: Sodium 136 potassium 4.6 BUN 33 creatinine 2.41 Wound Cultures [ November 17] showing Lucila albicans and stenotrophomonas maltophilia Previous labs [October 2021] Uric acid 10.7 2-D echocardiogram: EF 20-25%. Left lower extremity venous Doppler: DVT in the common femoral vein. Gallbladder ultrasound: Gallbladder filled with stones. Possible hepatic steatosis. Arterial Doppler results discussed with Dr. Mike: No evidence of vascular compromise Assessment and plan: -Acute on chronic multiple wounds painful left lower extremity likely from venous ulcers from recent DVT. Cultures from November 17 showing Lucila albicans and stenotrophomonas maltophilia Started IV Fortaz. Wound care. Seen by vascular. Not for any surgical intervention. Discharged with 2 weeks of Levaquin -Chronic DVT of the left common femoral vein, in 10/16/2021 eliquwendy . -Ischemic cardiomyopathy, EF 20-25% Toprol-XL 50 mg twice daily. Aldactone 12.5 mg daily. Demadex -Choledocholithiasis. Asymptomatic -CAD with a history of stent Aspirin 81 mg daily, Lopressor -Diabetes mellitus type 2, chronically on insulin Follow Accu-Cheks and sliding scale insulin. 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 Creatinine 1. 96 on 10/26/2021 -Anxiety not otherwise specified Xanax 0.25 mg by mouth twice a day -Hyperuricemia allopurinol 100 mg daily -Full code Disposition: Home Plan - Discharge Summary Discharge Rx Participant: No New Discharge Prescriptions: New metFORMIN HCL [Glucophage] 500 mg PO BID #60 tab Levofloxacin [Levaquin] 500 mg PO Q24H #14 tab Continue FLUoxetine HCL [PROzac] 20 mg PO DAILY allopurinoL 100 mg PO DAILY #1 tab Collagenase [Santyl Ointment] 1 applic TOPICAL DAILY each Tamsulosin [Flomax] 0.4 mg PO HS #30 cap Atorvastatin [Lipitor] 20 mg PO HS #30 tablet Acetaminophen Tab [Tylenol] 650 mg PO Q6H PRN PRN Reason: Pain Or Fever > 100.5 Cholecalciferol [Vitamin D3 (25 Mcg = 1000 Iu)] 25 mcg PO DAILY Spironolactone [Aldactone] 12.5 mg PO DAILY #30 tab Torsemide [Demadex] 20 mg PO DAILY #30 tab Apixaban [Eliquis] 5 mg PO BID #60 tab Nitroglycerin Sl Tabs [Nitrostat] 0.4 mg SL Q5M PRN #30 tab PRN Reason: Chest Pain HYDROcodone/APAP 7.5-325MG [[place] 7.5-325] 1 tab PO Q6H PRN #12 tab PRN Reason: Pain Metoprolol Succinate (ER) [Toprol XL] 50 mg PO BID@799,1999 #60 tab ALPRAZolam [Xanax] 0.25 mg PO BID #6 tab Discontinued INSULIN ASPART (NovoLOG) [NovoLOG (formulary)] 3 unit SQ AC-TID@ INSULIN ASPART (NovoLOG) [NovoLOG (formulary)] See Protocol SQ AC- TID@,1599 Discharge Medication List Acetaminophen Tab [Tylenol] 650 mg PO Q6H PRN 08/22/21 [History] FLUoxetine HCL [PROzac] 20 mg PO DAILY 08/22/21 [History] allopurinoL 100 mg PO DAILY #1 tab 10/26/21 [Rx] Cholecalciferol [Vitamin D3 (25 Mcg = 1000 Iu)] 25 mcg PO DAILY 11/14/21 [History] Collagenase [Santyl Ointment] 1 applic TOPICAL DAILY each 11/17/21 [Rx] ALPRAZolam [Xanax] 0.25 mg PO BID #6 tab 12/06/21 [Rx] Apixaban [Eliquis] 5 mg PO BID #60 tab 12/06/21 [Rx] Atorvastatin [Lipitor] 20 mg PO HS #30 tablet 12/06/21 [Rx] HYDROcodone/APAP 7.5-325MG [[place] 7.5-325] 1 tab PO Q6H PRN #12 tab 12/06/21 [Rx] Levofloxacin [Levaquin] 500 mg PO Q24H #14 tab 12/06/21 [Rx] Metoprolol Succinate (ER) [Toprol XL] 50 mg PO BID@0800,2000 #60 tab 12/06/21 [Rx] Nitroglycerin Sl Tabs [Nitrostat] 0.4 mg SL Q5M PRN #30 tab 12/06/21 [Rx] Spironolactone [Aldactone] 12.5 mg PO DAILY #30 tab 12/06/21 [Rx] Tamsulosin [Flomax] 0.4 mg PO HS #30 cap 12/06/21 [Rx] Torsemide [Demadex] 20 mg PO DAILY #30 tab 12/06/21 [Rx] metFORMIN HCL [Glucophage] 500 mg PO BID #60 tab 12/06/21 [Rx] Follow up Appointment(s)/Referral(s): cardiology, [Other] - 1 Week [facility], [NON-STAFF] - 1-2 Days Mike Escobar MD [Primary Care Provider] - 12/13/21 1:00 pm ([facility] [NON-STAFF] - 12/11/21 9:30 am Patient Instructions/Handouts: Chronic Wounds (DC) Activity/Diet/Wound Care/Special Instructions: Santyl - Apply Daily, wet to dry, kerlix activity as tolerated consistent carb diet Discharge Disposition: HOME WITH HOME HEALTH SERVICES
--- NOTE | 2021-12-13 15:33 | P.PN ---
Subjective Progress Note Date: 12/06/21 Principal diagnosis: Left lower extremity wound and cellulitis Patient is a 66 year male with a past medical history significant for a chronic nonhealing left lower extremity that was recently debridement and culture were positive for stenotrophomonas, patient left the [facility] against medical advice and subsequently presenting to the hospital for further treatment. On today's evaluation that is 12/06/2021, the patient continues to be afebrile, the patient denies any worsening pain to the left lower extremity wounds area, the patient denies having any chest pain or shortness of breath or cough no abdominal pain no diarrhea, patient has tolerated oral Levaquin without any problem Objective - Vital Signs Vital signs: Vital Signs Temp 97.4 F L 12/06/21 07:00 Pulse 62 12/06/21 07:00 Resp 18 12/06/21 07:00 BP 104/63 12/06/21 07:00 Pulse Ox 96 12/06/21 07:00 FiO2 Intake & Output 12/05/21 12/06/21 12/06/21 18:59 06:59 18:59 Intake Total 598 340 Balance 598 340 Intake: Oral 598 340 Other: Voiding Method Toilet # Voids 1 1 1 # Bowel Movements 1 - Exam GENERAL DESCRIPTION: An elderly male lying in bed in no distress RESPIRATORY SYSTEM: Unlabored breathing , decreased breath sounds at bases HEART: S1 S2 regular rate and rhythm , ABDOMEN: Soft , no tenderness EXTREMITIES: left lower extremity wounds are currently dressed - Labs CBC & Chem 7: 12/02/21 21:44 12/04/21 03:50 Labs: Abnormal Lab Results - Last 24 Hours (Table) 12/05/21 12/05/21 12/05/21 Range/Units 12:44 17:15 19:45 POC Glucose (mg/dL) 257 H 253 H 241 H (70-110) mg/dL 12/06/21 Range/Units 07:35 POC Glucose (mg/dL) 122 H (70-110) mg/dL Microbiology - Last 24 Hours (Table) 12/02/21 21:46 Blood Culture - Preliminary Blood No Growth after 72 hours Assessment and Plan (1) Non-pressure chronic ulcer of left ankle with fat layer exposed Status: Acute Code(s): L97.322 - NON-PRESSURE CHRONIC ULCER OF LEFT ANKLE W FAT LAYER EXPOSED SNOMED Code(s): 62581036960212535 (2) Non-pressure chronic ulcer of left calf with fat layer exposed Status: Acute Code(s): L97.222 - NON-PRESSURE CHRONIC ULCER OF LEFT CALF W FAT LAYER EXPOSED SNOMED Code(s): 69475135254483833 Plan: 1patient with a chronic nonhealing wound to the left lower extremity likely venous stasis ulcer with secondary cellulitis with a recent debridement did show stenotrophomonas for the patient was receiving Fortaz unfortunately the patient is left the [facility] as he did not like the care patient still have multiple wounds to left lower extremity with slough tissue however surrounding redness has improved. 2patient to continue local wound care with [facility] followed by moist dressing change daily vascular surgery is following the patient. 3patient did have a Cipro ALLERGY which he describing as nausea and vomiting not a true ALLERGY the patient was given dose of Levaquin which he has tolerated without any problem, plan is to continue with oral Levaquin 2 week on discharge local wound care per the wound daily and a close outpatient follow-up Time with Patient: Less than 30
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
== END 2021-12-06 14:16 | disposition home health service (06) ==
LOC: EC 20:17 → 6NMEDSUR 21:52 → OBSVTOIN 12-03 00:08 → INTOOBSV 12-03 00:08 → UNDODISIN 12-06 14:16
PROVIDERS: ADMIT Hospitalist; ATTEND Hospitalist
DX: L03.116 Cellulitis of left lower limb (principal); E11.622 Type 2 diabetes mellitus with other skin ulcer; L97.322 Non-pressure chronic ulcer of left ankle with fat layer exposed; L97.222 Non-pressure chronic ulcer of left calf with fat layer exposed; I25.10 Atherosclerotic heart disease of native coronary artery without angina pectoris; N17.9 Acute kidney failure, unspecified; E78.5 Hyperlipidemia, unspecified; E11.22 Type 2 diabetes mellitus with diabetic chronic kidney disease; I13.0 Hypertensive heart and chronic kidney disease with heart failure and stage 1 through stage 4 chronic kidney disease, or unspecified chronic kidney disease; I25.2 Old myocardial infarction; F41.9 Anxiety disorder, unspecified; I50.22 Chronic systolic (congestive) heart failure; N18.30 Chronic kidney disease, stage 3 unspecified; E11.42 Type 2 diabetes mellitus with diabetic polyneuropathy; K76.0 Fatty (change of) liver, not elsewhere classified; I82.512 Chronic embolism and thrombosis of left femoral vein; I25.5 Ischemic cardiomyopathy; K80.50 Calculus of bile duct without cholangitis or cholecystitis without obstruction; E79.0 Hyperuricemia without signs of inflammatory arthritis and tophaceous disease; Z79.899 Other long term (current) drug therapy; Z79.4 Long term (current) use of insulin; Z85.828 Personal history of other malignant neoplasm of skin; Z83.3 Family history of diabetes mellitus; Z82.49 Family history of ischemic heart disease and other diseases of the circulatory system; Z84.1 Family history of disorders of kidney and ureter; Z79.01 Long term (current) use of anticoagulants; Z95.5 Presence of coronary angioplasty implant and graft; Z79.84 Long term (current) use of oral hypoglycemic drugs; Z88.1 Allergy status to other antibiotic agents
CPT/HCPCS: 96366 ×3; 96367; 96365; 99284; 36415; 97110; 97530; 97162; 97535; 97165; 80053; 80048; 83735; 84100; 84484; 85025; 85610; 85730; 87040; 83036; G0378 ×5; J3370; J0696 ×2; J0713 ×3

== ENCOUNTER 2021-12-14 00:07 | Observation (INO) | payer MEDICARE ==
--- NOTE | 2021-12-14 00:26 | ED ---
Chest Pain HPI - General Chief Complaint: Chest Pain Stated Complaint: Chest pain Time Seen by Provider: 12/14/21 00:16 Source: patient, family Mode of arrival: wheelchair Limitations: no limitations - Related Data Home Medications Medication Instructions Recorded Confirmed Acetaminophen Tab [Tylenol] 650 mg PO Q6H PRN 08/22/21 12/02/21 FLUoxetine HCL [PROzac] 20 mg PO DAILY 08/22/21 12/02/21 Cholecalciferol [Vitamin D3 (25 25 mcg PO DAILY 11/14/21 12/02/21 Mcg = 1000 Iu)] Previous Rx's Medication Instructions Recorded allopurinoL 100 mg PO DAILY #1 tab 10/26/21 Collagenase [Santyl Ointment] 1 applic TOPICAL DAILY each 11/17/21 ALPRAZolam [Xanax] 0.25 mg PO BID #6 tab 12/06/21 Apixaban [Eliquis] 5 mg PO BID #60 tab 12/06/21 Atorvastatin [Lipitor] 20 mg PO HS #30 tablet 12/06/21 HYDROcodone/APAP 7.5-325MG [[place] 1 tab PO Q6H PRN #12 tab 12/06/21 7.5-325] Levofloxacin [Levaquin] 500 mg PO Q24H #14 tab 12/06/21 Metoprolol Succinate (ER) [Toprol 50 mg PO BID@0800,2000 #60 tab 12/06/21 XL] Nitroglycerin Sl Tabs [Nitrostat] 0.4 mg SL Q5M PRN #30 tab 12/06/21 Spironolactone [Aldactone] 12.5 mg PO DAILY #30 tab 12/06/21 Tamsulosin [Flomax] 0.4 mg PO HS #30 cap 12/06/21 Torsemide [Demadex] 20 mg PO DAILY #30 tab 12/06/21 metFORMIN HCL [Glucophage] 500 mg PO BID #60 tab 12/06/21 Allergies Allergy/AdvReac Type Severity Reaction Status Date / Time ciprofloxacin [From Cipro] Allergy Rash/Hives Verified 12/14/21 00:14 Review of Systems ROS Statement: Those systems with pertinent positive or pertinent negative responses have been documented in the HPI. ROS Other: All systems not noted in ROS Statement are negative. Past Medical History Past Medical History: Coronary Artery Disease (CAD), Cancer, Diabetes Mellitus, Hyperlipidemia, Hypertension, Myocardial Infarction (OR), Renal Disease Additional Past Medical History / Comment(s): skin cancer on nose August 2020 Last Myocardial Infarction Date:: 02/12/2019 History of Any Multi-Drug Resistant Organisms: None Reported Past Surgical History: Heart Catheterization, Heart Catheterization With Stent, Orthopedic Surgery Additional Past Surgical History / Comment(s): skin cancer removed from nose August 2020 Past Anesthesia/Blood Transfusion Reactions: No Reported Reaction Date of Last Stent Placement:: 2012 Past Psychological History: Anxiety Smoking Status: Never smoker Past Alcohol Use History: Occasional Past Drug Use History: None Reported - Past Family History Mother Family Medical History: Coronary Artery Disease (CAD), Diabetes Mellitus, Myocardial Infarction (OR) Father Family Medical History: Diabetes Mellitus, Renal Disease family Additional Family Medical History / Comment(s): Mother with history of diabetes mellitus and CAD, father with history of heart disease and diabetes General Exam Limitations: no limitations Course Vital Signs 12/14/21 00:10 Temperature 97.5 F L Pulse Rate 68 Respiratory 20 Rate Blood Pressure 122/80 O2 Sat by Pulse 95 Oximetry Disposition Clinical Impression: Chest pain Disposition: ADMITTED IP TO THIS HOSP Condition: Fair Is patient prescribed a controlled substance at d/c from ED?: No Referrals: Mike Escobar MD [Primary Care Provider] - 1-2 days
[2021-12-14 01:23] LABS: Anisocytosis Slight; Basophils # (A) 0.1 k/uL (0-0.2); Basophils % (A) 1 %; Eosinophils # (A) 0.1 k/uL (0-0.7); Eosinophils % (A) 1 %; HCT 36.2 % (39.0-53.0); HGB 11.3 gm/dL (13.0-17.5); Hypochromasia Marked; Lymphocytes # (A) 0.6 k/uL (1.0-4.8); Lymphocytes % (A) 10 %; MCHC 31.4 g/dL (31.0-37.0); MCV 95.6 fL (80.0-100.0); Macrocytosis Slight; Mean Platelet Volume 8.3; Monocytes # (A) 0.4 k/uL (0-1.0); Monocytes % (A) 6 %; Neutrophils % (A) 81 %; Platelet Count 125 k/uL (150-450); Poikilocytosis Slight; RBC 3.78 m/uL (4.30-5.90); RDW 17.6 % (11.5-15.5); WBC 6.1 k/uL (3.8-10.6)
[2021-12-14 01:35] LABS: Albumin 3.4 g/dL (3.5-5.0); Calcium 8.8 mg/dL (8.4-10.2); Magnesium 1.5 mg/dL (1.6-2.3); Total Bilirubin 0.9 mg/dL (0.2-1.3); Total Protein 6.4 g/dL (6.3-8.2)
[2021-12-14 01:38] LABS: INR 1.6 (<1.2); Partial Thromboplastin Time 34.2 sec (22.0-30.0); Prothrombin Time 16.6 sec (9.0-12.0)
--- NOTE | 2021-12-14 02:28 | XR ---
EXAMINATION TYPE: XR chest 2V DATE OF EXAM: 12/14/2021 COMPARISON: 10/19/2021 HISTORY: Chest pain TECHNIQUE: FINDINGS: Heart is enlarged. There is some coarsening of the lung markings. There is slight blunting of the right costophrenic angle. There are no hilar masses. Bony thorax is intact. There are chest le ads. IMPRESSION: There are some interstitial infiltrates in the midlung laboy which are unchanged compare d to old exam. There is improvement in the atelectasis in the midlung laboy. There is some mild pleu ral reaction and fluid at the right lung base probably not changed. A mild congestive heart failure i s possible.
[2021-12-14 03:28] LABS: Appearance,Urine Clear (Clear); Bilirubin,Urine Negative (Negative); Blood,Urine Moderate (Negative); Color,Urine Yellow; Glucose,Urine (UA) Negative (Negative); Hyaline Casts,Urine 29 /lpf (0-2); Ketones,Urine Trace (Negative); Leukocyte Esterase,Urine Negative (Negative); Mucus,Urine Rare /hpf; Nitrite,Urine Negative (Negative); Protein,Urine 2+ (Negative); RBC,Urine 4 /hpf (0-5); Specific Gravity,Urine 1.015 (1.001-1.035); Squamous Epithelial Cell,Urine <1 /hpf (0-4); Urobilinogen,Urine <2.0 mg/dL (<2.0); WBC,Urine 3 /hpf (0-5)
[2021-12-14] MEDS ORDERED: HEPARIN SODIUM 1,000 UN/ML (10ML VL) IV ONE (03:42)
[2021-12-14] MEDS ORDERED: MORPHINE SULFATE 4 MG/ML SYRINGE IV PRN (03:42)
[2021-12-14] MEDS ORDERED: ASPIRIN 81 MG PO STA (03:42)
[2021-12-14] MEDS ORDERED: NITROGLYCERIN SL TABS 0.4 MG TAB SUBLINGUAL PRN (03:42)
[2021-12-14] MEDS: HEPARIN SOD,PORK IN 0.45% NACL 25,000 UNIT in 0.45% NACL 1 250ML.BAG IV SCH (04:47)
[2021-12-14] MEDS ORDERED: ACETAMINOPHEN TAB 325 MG TAB PO PRN (06:04)
[2021-12-14] MEDS ORDERED: MAGNESIUM SULFATE-D5W PMX 1 GM in DEXTROSE/WATER 1 100ML.BAG IVPB ONE (06:11)
--- NOTE | 2021-12-14 06:11 | P.HPIM ---
History of Present Illness H&P Date: 12/14/21 Chief Complaint: chest pain 66-year-old male with chronic systolic CHF ejection fraction 20%, recent left lower extremity DVT and cellulitis currently on blood thinners and Levaquin Patient comes in due to sudden onset chest pain at night while watching TV described it as sharp retrosternal chest pain radiating to the left shoulder associated with feeling dizzy some palpitations and heavy breathing. Reports nausea and vomiting twice nonbloody nonbilious. Patient reports it reminded him of his prior heart attacks his last stent was over 1 year ago. He was recently hospitalized for left leg cellulitis discharged on December 06 supposed to finish 2 week course of Levaquin on December 20. Reports compliance with his medications. Otherwise denies any fevers chills denies any abdominal pain denies any GI bleed denies any changes in his bowel or urinary habits. He's been following up with wound clinic In the ED EKG showed no acute ST changes troponins negative Review of Systems Pertinent positives as noted in HPI. All other systems were reviewed and are negative Past Medical History Past Medical History: Coronary Artery Disease (CAD), Cancer, Diabetes Mellitus, Hyperlipidemia, Hypertension, Myocardial Infarction ([place]), Renal Disease Additional Past Medical History / Comment(s): skin cancer on nose August 2020 Last Myocardial Infarction Date:: 02/12/2019 History of Any Multi-Drug Resistant Organisms: None Reported Past Surgical History: Heart Catheterization, Heart Catheterization With Stent, Orthopedic Surgery Additional Past Surgical History / Comment(s): skin cancer removed from nose August 2020 Past Anesthesia/Blood Transfusion Reactions: No Reported Reaction Date of Last Stent Placement:: 2012 Past Psychological History: Anxiety Smoking Status: Never smoker Past Alcohol Use History: Occasional Past Drug Use History: None Reported - Past Family History Mother Family Medical History: Coronary Artery Disease (CAD), Diabetes Mellitus, Myocar dial Infarction ([place]) Father Family Medical History: Diabetes Mellitus, Renal Disease family Additional Family Medical History / Comment(s): Mother with history of diabetes mellitus and CAD, father with history of heart disease and diabetes Medications and Allergies Home Medications Medication Instructions Recorded Confirmed Type Acetaminophen Tab [Tylenol] 650 mg PO Q6H PRN 08/22/21 12/02/21 History FLUoxetine HCL [PROzac] 20 mg PO DAILY 08/22/21 12/02/21 History allopurinoL 100 mg PO DAILY #1 tab 10/26/21 12/02/21 Rx Cholecalciferol [Vitamin D3 (25 25 mcg PO DAILY 11/14/21 12/02/21 History Mcg = 1000 Iu)] Collagenase [Santyl Ointment] 1 applic TOPICAL DAILY each 11/17/21 12/02/21 Rx ALPRAZolam [Xanax] 0.25 mg PO BID #6 tab 12/06/21 Rx Apixaban [Eliquis] 5 mg PO BID #60 tab 12/06/21 Rx Atorvastatin [Lipitor] 20 mg PO HS #30 tablet 12/06/21 Rx HYDROcodone/APAP 7.5-325MG [[place] 1 tab PO Q6H PRN #12 tab 12/06/21 Rx 7.5-325] Levofloxacin [Levaquin] 500 mg PO Q24H #14 tab 12/06/21 Rx Metoprolol Succinate (ER) [Toprol 50 mg PO BID@0800,2000 #60 tab 12/06/21 Rx XL] Nitroglycerin Sl Tabs [Nitrostat] 0.4 mg SL Q5M PRN #30 tab 12/06/21 Rx Spironolactone [Aldactone] 12.5 mg PO DAILY #30 tab 12/06/21 Rx Tamsulosin [Flomax] 0.4 mg PO HS #30 cap 12/06/21 Rx Torsemide [Demadex] 20 mg PO DAILY #30 tab 12/06/21 Rx metFORMIN HCL [Glucophage] 500 mg PO BID #60 tab 12/06/21 Rx Allergies Allergy/AdvReac Type Severity Reaction Status Date / Time ciprofloxacin [From Cipro] Allergy Rash/Hives Verified 12/14/21 00:14 Physical Exam Vitals: Vital Signs Temp Pulse Resp BP Pulse Ox 12/14/21 00:10 97.5 F L 68 20 122/80 95 Intake and Output 12/13/21 12/13/21 12/14/21 14:59 22:59 06:59 Other: Weight 90.718 kg Constitutional: No acute distress, conversant, pleasant Eyes: Anicteric sclerae, moist conjunctiva, Pupils equal round reactive to light ENMT: NC/AT Oropharynx clear, no erythema, or exudates Neck: Supple, no masses, or JVD No carotid bruits No thyromegaly Lungs: Clear to auscultation Clear to percussion Normal respiratory effort, no accessory muscle use Cardiovascular: Heart regular in rate and rhythm, No murmurs, gallops, or rubs No peripheral edema Abdominal: Soft Nontender, no guarding, rebound or rigidity Abdomen moving with respiration Normoactive bowel sounds No hepatomegaly, No splenomegaly No palpable mass No abdominal wall hernia noted Skin: chronic skin changes over bilateral lower extremities otherwiseNormal temperature, tone, texture, turgor Extremities: left leg wrapped in surgical dressing and John wrap in. No digital cyanosis No clubbing Pedal pulses intact Right foot. Capillary refill immediate bilaterally Radial pulses intact and symmetrical No calf tenderness Psychiatric: Alert and oriented to person, place and time Appropriate affect fair judgement Neuro Muscles Strength 4/5 in all 4 extremities Sensation to light touch grossly present throughout Cranial nerves II-XII grossly intact No focal sensory deficits Lymphatics: no palpable cervical or supraclavicular , or inguinal lymph nodes Results CBC & Chem 7: 12/14/21 00:44 12/14/21 00:44 Labs: Abnormal Lab Results - Last 24 Hours (Table) 12/14/21 12/14/21 12/14/21 Range/Units 00:44 00:44 00:44 RBC 3.78 L (4.30-5.90) m/uL Hgb 11.3 L (13.0-17.5) gm/dL Hct 36.2 L (39.0-53.0) % RDW 17.6 H (11.5-15.5) % Plt Count 125 L (150-450) k/uL Lymphocytes # 0.6 L (1.0-4.8) k/uL PT 16.6 H (9.0-12.0) sec INR 1.6 H (<1.2) APTT 34.2 H (22.0-30.0) sec Sodium 134 L (137-145) mmol/L Carbon Dioxide 21 L (22-30) mmol/L BUN 27 H (9-20) mg/dL Creatinine 2.30 H (0.66-1.25) mg/dL Magnesium 1.5 L (1.6-2.3) mg/dL Albumin 3.4 L (3.5-5.0) g/dL Urine Protein (Negative) Urine Ketones (Negative) Urine Blood (Negative) Hyaline Casts (0-2) /lpf Urine Mucus (None) /hpf 12/14/21 Range/Units 02:21 RBC (4.30-5.90) m/uL Hgb (13.0-17.5) gm/dL Hct (39.0-53.0) % RDW (11.5-15.5) % Plt Count (150-450) k/uL Lymphocytes # (1.0-4.8) k/uL PT (9.0-12.0) sec INR (<1.2) APTT (22.0-30.0) sec Sodium (137-145) mmol/L Carbon Dioxide (22-30) mmol/L BUN (9-20) mg/dL Creatinine (0.66-1.25) mg/dL Magnesium (1.6-2.3) mg/dL Albumin (3.5-5.0) g/dL Urine Protein 2+ H (Negative) Urine Ketones Trace H (Negative) Urine Blood Moderate H (Negative) Hyaline Casts 29 H (0-2) /lpf Urine Mucus Rare H (None) /hpf Assessment and Plan Assessment: atypical chest pain rule out ACS EKG no acute changes CXR no acute pathology trops negative X2 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
[2021-12-14] MEDS ORDERED: LEVOFLOXACIN 500 MG TAB PO SCH (06:15)
[2021-12-14] MEDS: ATORVASTATIN 80 MG TAB PO SCH (08:30)
[2021-12-14] MEDS: allopurinoL 100 MG TAB PO SCH (08:30)
[2021-12-14] MEDS: FLUoxetine HCL 20 MG CAP PO SCH (08:30)
[2021-12-14] MEDS: METOPROLOL SUCCINATE (ER) 50 MG TAB.ER.24H PO SCH ×2 (08:31→20:52)
[2021-12-14] MEDS: SPIRONOLACTONE 25 MG TAB PO SCH (08:31)
[2021-12-14] MEDS: ALPRAZolam 0.25 MG TAB PO SCH ×2 (08:31→20:52)
--- NOTE | 2021-12-14 10:36 | P.CRDCN ---
History of Present Illness Consult date: 12/14/21 History of present illness: Patient has a known history of triple vessel coronary artery disease status post PCI of the LAD, ischemic cardiomyopathy, severe LV dysfunction refused to undergo an ICD, systolic congestive heart failure, recent left DVT on request, left leg cellulitis, chronic kidney disease hypertension, hyperlipidemia, diabetic. We've been consulted to see the patient for chest pain. who presents to the ER with complaints of chest pain, he reports nausea and vomiting 2 without bloody emesis. Patient came in because the chest pain he was having re minded him of his prior heart attack when he received a stent over a year ago. EKG showed sinus rhythm with a first-degree AV block and interventricular conduction delay without ischemic changes. Troponin negative 3 proBNP 49,400, B1 27 creatinine 2.3. Hemoglobin 11.3. Chest x-ray revealed interstitial infiltrates in the mid lung laboy, mild pleural reaction and fluid at the right lung base unchanged from previous, improved atelectasis. And mild congestive heart failure is possible. Patient's recent echocardiogram in October of this year showed a severely decreased LV function with an ejection fraction of 2025%, right ventricular dilation and mild mitral regurgitation and mild tricuspid regurgitation. Patient underwent a stress test in August of this year which was negative for ischemic changes. Will restart patient's Demadex due to elevated BNP and continue to monitor kidney function. Echocardiogram showed a severely decreased LV systolic function secondary to dilated cardiomyopathy, moderate pulmonary hypertension. Patient is not a candidate for revascularization, he will be on optimal medically management. start Imdur 30 mg daily and continue with current dose of metoprolol. Will continue heparin drip for 24 hours, if chest pain subsides and has no further episodes will restart Eliquis in discharge home tomorrow Review of Systems REVIEW OF SYSTEMS At the time of my exam: CONSTITUTIONAL: Denies fever or chills. EYES: Negative for vision changes ENT: Negative for hearing loss CARDIOVASCULAR: Denies chest pain, shortness of breath, diaphoresis, orthopnea, PND or palpitations. VASCULAR: Denies edema RESPIRATORY: Denies cough. GASTROINTESTINAL: Denies abdominal pain, diarrhea, constipation, nausea or vomiting. MUSCULOSKELETAL: Denies myalgias. NEUROLOGIC: Denies numbness, tingling, headache or weakness. ENDOCRINE: Denies fatigue, weight change, polydipsia or polyurina. GENITOURINARY: Denies burning, hematuria or urgency with micturation. HEMATOLOGIC: Denies history of anemia or bleeding. DERMATOLOGY: Left leg cellulitis and DVT PSYCH: Negative for depression or hallucinations. Past Medical History Past Medical History: Coronary Artery Disease (CAD), Cancer, Diabetes Mellitus, Hyperlipidemia, Hypertension, Myocardial Infarction ([place]), Renal Disease Additional Past Medical History / Comment(s): skin cancer on nose August 2020 Last Myocardial Infarction Date:: 02/12/2019 History of Any Multi-Drug Resistant Organisms: None Reported Past Surgical History: Heart Catheterization, Heart Catheterization With Stent, Orthopedic Surgery Additional Past Surgical History / Comment(s): skin cancer removed from nose August 2020 Past Anesthesia/Blood Transfusion Reactions: No Reported Reaction Date of Last Stent Placement:: 2012 Past Psychological History: Anxiety Smoking Status: Never smoker Past Alcohol Use History: Occasional Past Drug Use History: None Reported - Past Family History Mother Family Medical History: Coronary Artery Disease (CAD), Diabetes Mellitus, Myocardial Infarction ([place]) Father Family Medical History: Diabetes Mellitus, Renal Disease family Additional Family Medical History / Comment(s): Mother with history of diabetes mellitus and CAD, father with history of heart disease and diabetes Medications and Allergies Home Medications Medication Instructions Recorded Confirmed Type Acetaminophen Tab [Tylenol] 650 mg PO Q6H PRN 08/22/21 12/14/21 History ALPRAZolam [Xanax] 0.25 mg PO BID #6 tab 12/06/21 12/14/21 Rx Apixaban [Eliquis] 5 mg PO BID #60 tab 12/06/21 12/14/21 Rx Atorvastatin [Lipitor] 20 mg PO HS #30 tablet 12/06/21 12/14/21 Rx HYDROcodone/APAP 7.5-325MG [[place] 1 tab PO Q6H PRN #12 tab 12/06/21 12/14/21 Rx 7.5-325] Levofloxacin [Levaquin] 500 mg PO Q24H #14 tab 12/06/21 12/14/21 Rx Metoprolol Succinate (ER) [Toprol 50 mg PO BID@0800,2000 #60 tab 12/06/21 12/14/21 Rx XL] Nitroglycerin Sl Tabs [Nitrostat] 0.4 mg SL Q5M PRN #30 tab 12/06/21 12/14/21 Rx Spironolactone [Aldactone] 12.5 mg PO DAILY #30 tab 12/06/21 12/14/21 Rx Tamsulosin [Flomax] 0.4 mg PO HS #30 cap 12/06/21 12/14/21 Rx Torsemide [Demadex] 20 mg PO DAILY #30 tab 12/06/21 12/14/21 Rx metFORMIN HCL [Glucophage] 500 mg PO BID #60 tab 12/06/21 12/14/21 Rx Allergies Allergy/AdvReac Type Severity Reaction Status Date / Time ciprofloxacin [From Cipro] Allergy Rash/Hives Verified 12/14/21 07:29 Physical Exam Vitals: Vital Signs Temp Pulse Resp BP Pulse Ox 12/14/21 06:50 89 16 130/71 92 L 12/14/21 05:14 67 16 128/82 98 12/14/21 04:14 67 16 123/90 97 12/14/21 03:14 66 16 129/84 12/14/21 02:14 67 16 117/76 96 12/14/21 00:10 97.5 F L 68 20 122/80 95 Intake and Output 12/13/21 12/14/21 12/14/21 22:59 06:59 14:59 Other: Weight 90.718 kg PHYSICAL EXAMINATION VITAL SIGNS: Reviewed General: The patient is awake and alert, in no distress, and does not appear acutely ill. Skin: Skin is warm and dry and no rashes or lesions are noted. Eye: Pupils are equal, round and reactive to light, extra-ocular movements are intact; there is normal conjunctiva bilaterally. Ears, nose, mouth and throat: There are moist mucous membranes and no oral lesions. Neck: The neck is supple, there is no tenderness or JVD. Cardiovascular: There is regular rate and rhythm. No murmur, rub or gallop is appreciated. Respiratory: Lungs are clear to auscultation, respirations are non-labored, breath sounds are equal. Gastrointestinal: Soft, non-distended, non-tender abdomen without masses or organomegaly noted. There is no rebound or guarding present. Bowel sounds are unremarkable. Back: There is no tenderness to palpation in the midline. There is no obvious deformity. Musculoskeletal: Normal ROM, no tenderness, There is no pedal edema. Left leg cellulitis Extremities: Moderate bilateral pitting edema Vascular: Bilateral good capillary refill Neurological: CN II-XII intact. There are no obvious motor or sensory deficits. Speech is normal. Psychiatric: Cooperative, appropriate mood & affect, normal judgment Results 12/14/21 00:44 12/14/21 10:20 Cardiac Enzymes 12/14/21 12/14/21 12/14/21 Range/Units 00:44 00:44 04:24 AST 19 (17-59) U/L Troponin I <0.012 <0.012 (0.000-0.034) ng/mL 12/14/21 Range/Units 07:10 AST (17-59) U/L Troponin I <0.012 (0.000-0.034) ng/mL Coagulation 12/14/21 Range/Units 00:44 PT 16.6 H (9.0-12.0) sec APTT 34.2 H (22.0-30.0) sec CBC 12/14/21 Range/Units 00:44 WBC 6.1 (3.8-10.6) k/uL RBC 3.78 L (4.30-5.90) m/uL Hgb 11.3 L (13.0-17.5) gm/dL Hct 36.2 L (39.0-53.0) % Plt Count 125 L (150-450) k/uL Comprehensive Metabolic Panel 12/14/21 Range/Units 00:44 Sodium 134 L (137-145) mmol/L Potassium 4.0 (3.5-5.1) mmol/L Chloride 99 (98-107) mmol/L Carbon Dioxide 21 L (22-30) mmol/L BUN 27 H (9-20) mg/dL Creatinine 2.30 H (0.66-1.25) mg/dL Glucose 99 (74-99) mg/dL Calcium 8.8 (8.4-10.2) mg/dL AST 19 (17-59) U/L ALT 9 (4-49) U/L Alkaline Phosphatase 42 (38-126) U/L Total Protein 6.4 (6.3-8.2) g/dL Albumin 3.4 L (3.5-5.0) g/dL Current Medications Generic Name Dose Route Start Last Admin Trade Name Freq PRN Reason Stop Dose Admin Acetaminophen 650 mg 12/14/21 06:04 Acetaminophen Tab 325 Mg Tab PO Q6H PRN Pain or Fever > 100.5 Allopurinol 100 mg 12/14/21 09:00 12/14/21 08:30 Allopurinol 100 Mg Tab PO 100 mg DAILY [facility] Administration Alprazolam 0.25 mg 12/14/21 09:00 12/14/21 08:31 Alprazolam 0.25 Mg Tab PO 0.25 mg BID VAN Administration Aspirin 325 mg 12/15/21 10:00 Aspirin 325 Mg Tab PO DAILY [facility] Atorvastatin Calcium 80 mg 12/14/21 09:00 12/14/21 08:30 Atorvastatin 80 Mg Tab PO 80 mg DAILY [facility] Administration Fluoxetine HCl 20 mg 12/14/21 09:00 12/14/21 08:30 Fluoxetine Hcl 20 Mg Cap PO 20 mg DAILY [facility] Administration Heparin Sodium/Sodium Chloride 250 mls @ 10 mls/hr 12/14/21 03:45 12/14/21 04:47 25,000 unit/ Sodium Chloride IV 11.0232 units/kg/hr .Q24H [facility]AN 10 mls/hr Administration Protocol 11.0232 UNITS/KG/HR Levofloxacin 500 mg 12/14/21 06:15 12/14/21 06:48 Levofloxacin 500 Mg Tab PO 500 mg Q24H [facility] Administration Protocol Metoprolol Succinate 50 mg 12/14/21 09:00 12/14/21 08:31 Metoprolol Succinate (Er) 50 Mg Tab.Er.24h PO 50 mg BID [facility] Administration Morphine Sulfate 4 mg 12/14/21 03:42 Morphine Sulfate 4 Mg/Ml Syringe IV Q4HR PRN Chest Pain Nitroglycerin 0.4 mg 12/14/21 03:42 Nitroglycerin Sl Tabs 0.4 Mg Tab SUBLINGUAL Q5M PRN Chest Pain Spironolactone 12.5 mg 12/14/21 09:00 12/14/21 08:31 Spironolactone 25 Mg Tab PO 12.5 mg DAILY [facility] Administration Tamsulosin HCl 0.4 mg 12/14/21 21:00 Tamsulosin 0.4 Mg Cap.Er.24h PO HS [facility] Intake and Output 12/13/21 12/14/21 12/14/21 22:59 06:59 14:59 Other: Weight 90.718 kg 12/14/21 00:44 12/14/21 00:44 Assessment and Plan Assessment: Unstable angina Chronic systolic heart failure Ischemic cardiomyopathy with severe LV dysfunction Elevated troponins probably secondary to acute renal failure Left leg DVT coronary artery disease status post PCI to the LAD Chronic systolic congestive heart failure Plan: Obtain a 2-D echocardiogram and review Continue with heparin drip for 24 hours then consider restarting Eliquis Continue with metoprolol Restart Demadex Start Imdur 30 mg daily Continue with all current cardiac medications Continue with telemetry monitoring Anticipated discharge in the next 24 hours Further recommendations based on clinical course The above impression and plan of care have been discussed and directed by the signing physician. Bess Landa, nurse practitioner, acting as scribe for signing physician.
[2021-12-14 11:02] LABS: ALT 9 U/L (4-49); AST 17 U/L (17-59); African American GFR (CKD) 34 (>60 ml/min/1.73 sqM); Albumin 3.3 g/dL (3.5-5.0); Albumin/Globulin Ratio 1.1; Alkaline Phosphatase 42 U/L (38-126); Anion Gap 13 mmol/L; Blood Urea Nitrogen 26 mg/dL (9-20); Calcium 8.8 mg/dL (8.4-10.2); Carbon Dioxide 23 mmol/L (22-30); Chloride 100 mmol/L (98-107); Globulin 3.1 g/dL; Glucose 96 mg/dL (74-99); Non-African American GFR(CKD) 30 (>60 ml/min/1.73 sqM); Potassium 3.8 mmol/L (3.5-5.1); Sodium 136 mmol/L (137-145); Total Bilirubin 0.7 mg/dL (0.2-1.3); Total Protein 6.4 g/dL (6.3-8.2)
--- NOTE | 2021-12-14 11:10 | CA ---
Transthoracic Echo Report Name: Jabier Mitchell Age: 66 Gender: M : 1955 Exam Date: 12/14/2021 08:48 Exam Location: [facility] [facility] Ht (in): 70 Wt (lb): 200 Ordering Physician: Bess Landa Attending/Referring Phys: Retail Sales Advisor Mai Dominique RDCS Procedure CPT: Indications: cp chf Cardiac Hx: Technical Quality: Good Contrast 1: Total Dose (mL): Contrast 2: Total Dose (mL): MEASUREMENTS (Male / Female) Normal Values 2D ECHO LV Diastolic Diameter PLAX 5.3 cm 4.2 - 5.9 / 3.9 - 5.3 cm LV Systolic Diameter PLAX 5.1 cm IVS Diastolic Thickness 1.5 cm 0.6 - 1.0 / 0.6 - 0.9 cm LVPW Diastolic Thickness 1.2 cm 0.6 - 1.0 / 0.6 - 0.9 cm LV Relative Wall Thickness 0.5 RV Internal Dim ED PLAX 3.7 cm LA Systolic Diameter LX 4.4 cm 3.0 - 4.0 / 2.7 - 3.8 cm LA Volume 104.4 cm??? 18 - 58 / 22 - 52 cm??? M-MODE Aortic Root Diameter MM 3.8 cm MV E Point Septal Separation 2.2 cm AV Cusp Separation MM 2.4 cm DOPPLER AV Peak Velocity 85.4 cm/s AV Peak Gradient 2.9 mmHg MV Area PHT 3.5 cm??? Mitral E Point Velocity 60.2 cm/s Mitral A Point Velocity 41.9 cm/s Mitral E to A Ratio 1.4 MV Deceleration Time 217.8 ms TR Peak Velocity 344.5 cm/s TR Peak Gradient 47.5 mmHg Right Ventricular Systolic Press 52.1 mmHg FINDINGS Left Ventricle Left ventricular ejection fraction is estimated at <15 %. Left ventricular cavity size normal. Moderate concentric left ventricular hypertrophy. Right Ventricle Moderate right ventricular dilatation. Moderate pulmonary hypertension. Right Atrium Normal right atrial size. Left Atrium Mildly increased left atrial diameter. Severely increased left atrial volume. Mildly increased left atrial area. No evidence for an atrial septal defect. Mitral Valve Mitral annular calcification. Trace to mild mitral regurgitation. Aortic Valve Trileaflet aortic valve. No aortic valve stenosis or regurgitation. Tricuspid Valve Mild tricuspid regurgitation. Pulmonic Valve Trace to mild pulmonic regurgitation. Pericardium Normal pericardium. No pericardial effusion. Aorta Mild aortic dilatation at the level of the sinuses of valsalva 38 mm CONCLUSIONS Severe LV systolic dysfunction secondary to dilated cardiomyopathy Moderate pulmonary hypertension Previewed by: Dr. Fred Leblanc MD (Electronically Signed) Final Date: 14 December 2021 11:09
--- NOTE | 2021-12-14 13:36 | P.PN ---
Progress Note - Text Progress Note Date: 12/14/21 Patient was seen and examined. No acute events overnight. Patient reports complete resolution of his chest pain. He denies any shortness of breath or palpitations. He denies any lightheadedness. No nausea or vomiting. Refusing AICD placement. General: [non toxic], [no distress], [appears at stated age] Derm: [warm], [dry], [chronic lower extremity skin changes] Head: [atraumatic], [normocephalic], [symmetric] Eyes: [EOMI], [no lid lag], [anicteric sclera] Mouth: [no lip lesion], [mucus membranes moist] Cardiovascular: [S1S2 reg], [no murmur] Lungs: [CTA bilateral], [no rhonchi, no rales] , [no accessory muscle use] Abdominal: [soft], [ nontender to palpation], [no guarding], [no appreciable organomegaly] Ext: [no gross muscle atrophy], [left lower extremity ROSA MARIA wrapped], [no contractures] Neuro: [no focal neuro deficits] Psych: [Alert], [oriented], [appropriate affect] #Chest pain, Unstable angina #Left leg cellulitis #Left leg DVT #Diabetes mellitus #Hyperlipidemia #Hypertension #Systolic CHF, chronic #Chronic kidney disease, Cr 2.3 at baseline #BPH #Depression Troponins trended and ACS ruled out. Echocardiogram shows EF of < 15% with moderate diastolic dysfunction. Patient refusing AICD. Continue ASA and Lipitor. Continue beta tonya. Cardiology consulted - recommends Heparin drip for 24H. Continue with Levaquin 500 mg daily to finish a 2 weeks course on December 20. Continue Heparin drip. Eliquis on discharge. A1c 7.6. Continue low dose insulin sliding scale along with accuchecks QID and hypoglycemic precautions. Lipitor as above. Continue Metoprolol and Aldactone. Monitor vitals, adjust medications as necessary. CHF is compensated. Continue medications as above. Restart Torsemide. Stable. Avoid nephrotoxins. Flomax. Prozac. Heparin for DVT prophylaxis. Patient would like to be FULL CODE. Anticipate DC home tomorrow.
[2021-12-14 15:23] LABS: Glucose,Whole Blood 116 mg/dL (70-110)
[2021-12-14 17:39] LABS: Glucose,Whole Blood 103 mg/dL (70-110)
[2021-12-14] MEDS: INSULIN ASPART (NovoLOG) 100 UNIT/ML VIAL SQ SCH ×2 (17:45→20:55)
[2021-12-14 20:54] LABS: Glucose,Whole Blood 124 mg/dL (70-110)
[2021-12-14] MEDS ORDERED: TAMSULOSIN 0.4 MG CAP.ER.24H PO SCH (21:00)
[2021-12-15] MEDS: HEPARIN SOD,PORK IN 0.45% NACL 25,000 UNIT in 0.45% NACL 1 250ML.BAG IV SCH (04:53)
[2021-12-15 06:36] VITALS: RESP 18
[2021-12-15 07:44] LABS: Glucose,Whole Blood 118 mg/dL (70-110)
[2021-12-15 08:09] VITALS: BP 128/81; PULSE 82; TEMP 97.5
[2021-12-15] MEDS ORDERED: TORSEMIDE 20 MG TAB PO SCH (09:00)
[2021-12-15] MEDS ORDERED: APIXABAN 5 MG TAB PO SCH (09:00)
[2021-12-15] MEDS ORDERED: LEVOFLOXACIN 250 MG TAB PO SCH (09:00)
[2021-12-15] MEDS ORDERED: ISOSORBIDE MONONITRATE ER 30 MG TAB.ER.24H PO SCH (09:00)
[2021-12-15] MEDS: INSULIN ASPART (NovoLOG) 100 UNIT/ML VIAL SQ SCH (09:04)
--- NOTE | 2021-12-15 09:09 | P.DS ---
Providers Date of admission: 12/14/21 03:42 Expected date of discharge: 12/15/21 Attending physician: Randolph Avendano MD Consults: 12/14/21 03:42 Consult Physician Urgent Consulting Provider: Finn Martino Consult Reason/Comments: cp Do you want consulting provider notified?: Yes Primary care physician: Mike Escobar Hospital Course: 66-year-old male with chronic systolic CHF ejection fraction 20%, recent left lower extremity DVT and cellulitis currently on blood thinners and Levaquin Patient comes in due to sudden onset chest pain at night while watching TV described it as sharp retrosternal chest pain radiating to the left shoulder associated with feeling dizzy some palpitations and heavy breathing. Reports nausea and vomiting twice nonbloody nonbilious. Patient reports it reminded him of his prior heart attacks his last stent was over 1 year ago. He was recently hospitalized for left leg cellulitis discharged on December 06 supposed to finish 2 week course of Levaquin on December 20. Reports compliance with his medications. Otherwise denies any fevers chills denies any abdominal pain denies any GI bleed denies any changes in his bowel or urinary habits. He's been following up with wound clinic In the ED EKG showed no acute ST changes troponins negative. Patient was started on heparin drip for concerns of ACS. Troponins were trended and ACS was ruled out. Cardiology was consulted and recommended continuing heparin drip for 24 hours. Echocardiogram was done which showed EF less than 15% with moderate concentric LVH. Patient refused AICD placement despite warnings of sudden cardiac . Cardiology recommended starting Imdur and no further workup and cleared the patient for discharge. He was transitioned from the heparin drip to his home medication of Eliquis. He was advised to continue Levaquin which was prescribed to him for left lower extremity cellulitis and to follow-up with wound care. His Lipitor was also changed from 20 mg by mouth to 80 mg by mouth daily. Patient was advised to follow-up with his PCP within 1-2 days of discharge. He was advised to follow-up with his patient services representative within 1 week of discharge. Patient verbalized understanding of the plan. General: [non toxic], [no distress], [appears at stated age] Derm: [warm], [dry], [chronic lower extremity skin changes] Head: [atraumatic], [normocephalic], [symmetric] Eyes: [EOMI], [no lid lag], [anicteric sclera] Mouth: [no lip lesion], [mucus membranes moist] Cardiovascular: [S1S2 reg], [no murmur] Lungs: [CTA bilateral], [no rhonchi, no rales] , [no accessory muscle use] Ext: [no gross muscle atrophy], [left lower extremity ROSA MARIA wrapped], [no contractures] Neuro: [no focal neuro deficits] Psych: [Alert], [oriented], [appropriate affect] Discharge Diagnosis: #Chest pain, Unstable angina #Left leg cellulitis #Left leg DVT #Diabetes mellitus #Hyperlipidemia #Hypertension #Systolic CHF, chronic #Chronic kidney disease, Cr 2.3 at baseline #BPH #Depression Pertinent Studies: Chest x-ray EKG Echocardiogram Patient Condition at Discharge: Stable Plan - Discharge Summary Discharge Rx Participant: No New Discharge Prescriptions: New FLUoxetine HCL [PROzac] 20 mg PO DAILY cap allopurinoL [Zyloprim] 100 mg PO DAILY tab Aspirin 81 mg PO DAILY #90 tab Isosorbide Mononitrate ER [Imdur] 30 mg PO DAILY #30 tab Atorvastatin [Lipitor] 80 mg PO DAILY #30 tab Continue metFORMIN HCL [Glucophage] 500 mg PO BID #60 tab Levofloxacin [Levaquin] 500 mg PO Q24H #14 tab Tamsulosin [Flomax] 0.4 mg PO HS #30 cap Acetaminophen Tab [Tylenol] 650 mg PO Q6H PRN PRN Reason: Pain Or Fever > 100.5 Spironolactone [Aldactone] 12.5 mg PO DAILY #30 tab Torsemide [Demadex] 20 mg PO DAILY #30 tab Apixaban [Eliquis] 5 mg PO BID #60 tab Nitroglycerin Sl Tabs [Nitrostat] 0.4 mg SL Q5M PRN #30 tab PRN Reason: Chest Pain HYDROcodone/APAP 7.5-325MG [[place] 7.5-325] 1 tab PO Q6H PRN #12 tab PRN Reason: Pain Metoprolol Succinate (ER) [Toprol XL] 50 mg PO BID@0800,2000 #60 tab ALPRAZolam [Xanax] 0.25 mg PO BID #6 tab Discontinued Atorvastatin [Lipitor] 20 mg PO HS #30 tablet Discharge Medication List Acetaminophen Tab [Tylenol] 650 mg PO Q6H PRN 08/22/21 [History] ALPRAZolam [Xanax] 0.25 mg PO BID #6 tab 12/06/21 [Rx] Apixaban [Eliquis] 5 mg PO BID #60 tab 12/06/21 [Rx] HYDROcodone/APAP 7.5-325MG [[place] 7.5-325] 1 tab PO Q6H PRN #12 tab 12/06/21 [Rx] Levofloxacin [Levaquin] 500 mg PO Q24H #14 tab 12/06/21 [Rx] Metoprolol Succinate (ER) [Toprol XL] 50 mg PO BID@0800,2000 #60 tab 12/06/21 [Rx] Nitroglycerin Sl Tabs [Nitrostat] 0.4 mg SL Q5M PRN #30 tab 12/06/21 [Rx] Spironolactone [Aldactone] 12.5 mg PO DAILY #30 tab 12/06/21 [Rx] Tamsulosin [Flomax] 0.4 mg PO HS #30 cap 12/06/21 [Rx] Torsemide [Demadex] 20 mg PO DAILY #30 tab 12/06/21 [Rx] metFORMIN HCL [Glucophage] 500 mg PO BID #60 tab 12/06/21 [Rx] Aspirin 81 mg PO DAILY #90 tab 12/15/21 [Rx] Atorvastatin [Lipitor] 80 mg PO DAILY #30 tab 12/15/21 [Rx] FLUoxetine HCL [PROzac] 20 mg PO DAILY cap 12/15/21 [Rx] Isosorbide Mononitrate ER [Imdur] 30 mg PO DAILY #30 tab 12/15/21 [Rx] allopurinoL [Zyloprim] 100 mg PO DAILY tab 12/15/21 [Rx] Follow up Appointment(s)/Referral(s): Jarod Miranda MD [STAFF PHYSICIAN] - 1 Week Mike Escobar MD [Primary Care Provider] - 1-2 days Activity/Diet/Wound Care/Special Instructions: Diet: Cardiac Follow-up with your PCP within 1-2 days of discharge. Follow-up with cardiology within 1 week of discharge. Take all medications as advised. Come back to the ED for worsening chest pain, shortness of breath, palpitations or lightheadedness. Discharge Disposition: HOME SELF-CARE
[2021-12-15] MEDS: SPIRONOLACTONE 25 MG TAB PO SCH (09:13)
[2021-12-15] MEDS: ALPRAZolam 0.25 MG TAB PO SCH (09:13)
[2021-12-15 09:14] LABS: Chol/HDL Ratio 1.53 Ratio; LDL Cholesterol,Calculated 8.3 mg/dL (0.0-131.0)
[2021-12-15] MEDS: ATORVASTATIN 80 MG TAB PO SCH (09:14)
[2021-12-15] MEDS: METOPROLOL SUCCINATE (ER) 50 MG TAB.ER.24H PO SCH (09:14)
[2021-12-15] MEDS: allopurinoL 100 MG TAB PO SCH (09:14)
[2021-12-15] MEDS: FLUoxetine HCL 20 MG CAP PO SCH (09:18)
[2021-12-15] MEDS ORDERED: ASPIRIN 325 MG TAB PO SCH (10:00)
--- NOTE | 2021-12-15 21:35 | PN ---
PROGRESS NOTE SUBJECTIVE: A 66-year-old gentleman with non-revascularizable coronary artery disease and atrial fibrillation along with congestive heart failure that is systolic, who is admitted to hospital with chest pain and shortness of breath. We treated him with IV heparin. This morning, he is doing well, chest pain-free, hemodynamically stable, and is no longer short of breath. OBJECTIVE: GENERAL: Comfortable at rest. VITAL SIGNS: Stable. CHEST: Reveals good air entry bilaterally. HEART: Reveals first and second heart sounds. No gallop. There is a systolic murmur at the left lower sternal border. ABDOMEN: Soft. EXTREMITIES: Did not reveal any edema. Peripheral pulses are felt. ASSESSMENT: 1. Unstable angina. Myocardial infarction ruled out. 2. Acute exacerbation of chronic systolic heart failure. 3. Ischemic cardiomyopathy with severe left ventricular dysfunction. 4. Elevated troponin secondary to renal failure. PLAN: The patient will be resumed on the Eliquis. Continue Lipitor, Imdur, Toprol, Aldactone, and continue the Demadex. Follow up with me in the office. MMODL / IJN: [id number] /
== END 2021-12-15 11:35 | disposition home or self-care (01) ==
LOC: EC 00:07 → 6NMEDSUR 03:42
PROVIDERS: ADMIT Internal Medicine; ATTEND Internal Medicine
DX: I25.110 Atherosclerotic heart disease of native coronary artery with unstable angina pectoris (principal); L03.116 Cellulitis of left lower limb; I13.0 Hypertensive heart and chronic kidney disease with heart failure and stage 1 through stage 4 chronic kidney disease, or unspecified chronic kidney disease; E11.22 Type 2 diabetes mellitus with diabetic chronic kidney disease; I50.23 Acute on chronic systolic (congestive) heart failure; E78.5 Hyperlipidemia, unspecified; I25.2 Old myocardial infarction; I27.20 Pulmonary hypertension, unspecified; F41.9 Anxiety disorder, unspecified; J98.11 Atelectasis; N18.30 Chronic kidney disease, stage 3 unspecified; I08.1 Rheumatic disorders of both mitral and tricuspid valves; I44.0 Atrioventricular block, first degree; N40.0 Benign prostatic hyperplasia without lower urinary tract symptoms; I25.5 Ischemic cardiomyopathy; F32.A Depression, unspecified; Z79.84 Long term (current) use of oral hypoglycemic drugs; Z79.01 Long term (current) use of anticoagulants; Z79.899 Other long term (current) drug therapy; Z85.828 Personal history of other malignant neoplasm of skin; Z83.3 Family history of diabetes mellitus; Z82.49 Family history of ischemic heart disease and other diseases of the circulatory system; Z86.718 Personal history of other venous thrombosis and embolism; Z98.61 Coronary angioplasty status
CPT/HCPCS: 96367; 96365; 96375; 99285; 36415; 93005; 93306; 83880; 80061; 80053; 83690; 83735; 84484; 85025; 85610; 85730 ×2; 81001; 71046; G0378 ×2; J1644 ×3; J3475

== ENCOUNTER → 2022-01-03 | Outpatient (CLI) | payer MEDICARE ==
[2022-01-04 00:30] LABS: African American GFR (CKD) 49.4 (60.0-200.0); BUN/Creat Ratio 26.5 Ratio (12.00-20.00); Blood Urea Nitrogen 43.2 mg/dL (9.0-27.0); Calcium 9.6 mg/dL (8.7-10.3); Carbon Dioxide 27.8 mmol/L (20.0-27.5); Non-African American GFR(CKD) 42.7 (60.0-200.0); Potassium 4.4 mmol/L (3.5-5.5)
== END | disposition home or self-care (01) ==
LOC: LABWHC1 15:52
PROVIDERS: ATTEND Internal Medicine Interventional Cardiology
DX: I50.20 Unspecified systolic (congestive) heart failure (principal)
CPT/HCPCS: 36415; 80048

== ENCOUNTER 2022-01-15 20:30 | Observation (INO) | payer MEDICARE ==
[2022-01-15 22:22] LABS: Anisocytosis Slight; Basophils # (A) 0.1 k/uL (0-0.2); Basophils % (A) 1 %; Eosinophils # (A) 0.2 k/uL (0-0.7); Eosinophils % (A) 2 %; Hypochromasia Moderate; Lymphocytes % (A) 14 %; MCH 29.3 pg (25.0-35.0); MCHC 30.6 g/dL (31.0-37.0); MCV 95.5 fL (80.0-100.0); Macrocytosis Slight; Mean Platelet Volume 8.9; Monocytes # (A) 0.5 k/uL (0-1.0); Monocytes % (A) 6 %; Neutrophils # (A) 5.4 k/uL (1.3-7.7); Neutrophils % (A) 75 %; Platelet Count 164 k/uL (150-450); RBC 3.77 m/uL (4.30-5.90); RDW 17.7 % (11.5-15.5); WBC 7.1 k/uL (3.8-10.6)
--- NOTE | 2022-01-15 22:23 | ED ---
General Adult HPI - General Chief complaint: Shortness of Breath Stated complaint: CHF,Abnormal Labs,PCP Sent Time Seen by Provider: 01/15/22 22:15 Source: patient, family, RN notes reviewed, old records reviewed Mode of arrival: ambulatory Limitations: no limitations - History of Present Illness Initial comments: 66-year-old male with ischemic cardiomyopathy, CHF presenting with increased dyspnea, bilateral lower extremity swelling. Patient was recently admitted to the hospital with similar complaints. He has had some medication adjustment including increase in diuretic over the past 4 days. This did not significantly improve his dyspnea or leg edema. He denies central chest pain but is having some right-sided shoulder pain. He has been compliant with medication as prescribed. - Related Data Home Medications Medication Instructions Recorded Confirmed Acetaminophen Tab [Tylenol] 650 mg PO Q6H PRN 08/22/21 12/21/21 Previous Rx's Medication Instructions Recorded ALPRAZolam [Xanax] 0.25 mg PO BID #6 tab 12/06/21 Apixaban [Eliquis] 5 mg PO BID #60 tab 12/06/21 Levofloxacin [Levaquin] 500 mg PO Q24H #14 tab 12/06/21 Metoprolol Succinate (ER) [Toprol 50 mg PO BID@0800,2000 #60 tab 12/06/21 XL] Nitroglycerin Sl Tabs [Nitrostat] 0.4 mg SL Q5M PRN #30 tab 12/06/21 Spironolactone [Aldactone] 12.5 mg PO DAILY #30 tab 12/06/21 Tamsulosin [Flomax] 0.4 mg PO HS #30 cap 12/06/21 Torsemide [Demadex] 20 mg PO DAILY #30 tab 12/06/21 Aspirin 81 mg PO DAILY #90 tab 12/15/21 Atorvastatin [Lipitor] 80 mg PO DAILY #30 tab 12/15/21 FLUoxetine HCL [PROzac] 20 mg PO DAILY cap 12/15/21 Isosorbide Mononitrate ER [Imdur] 30 mg PO DAILY #30 tab 12/15/21 allopurinoL [Zyloprim] 100 mg PO DAILY tab 12/15/21 Allergies Allergy/AdvReac Type Severity Reaction Status Date / Time ciprofloxacin [From Cipro] Allergy Rash/Hives Verified 01/15/22 21:51 Review of Systems ROS Statement: Those systems with pertinent positive or pertinent negative responses have been documented in the HPI. ROS Other: All systems not noted in ROS Statement are negative. Past Medical History Past Medical History: Coronary Artery Disease (CAD), Cancer, Heart Failure, Diabetes Mellitus, Deep Vein Thrombosis (DVT), Hyperlipidemia, Hypertension, Liver Disease, Myocardial Infarction ([place]), Prostate Disorder, Renal Disease, Skin Disorder Additional Past Medical History / Comment(s): Ischemic cardiomyopathy, chronic CHF, 10/26/21 DVT L lower extremity, IDDM type II, neuropathy bilaterl legs/feet, L leg wounds, BPH, CKD stage III, hyperuricemia, hepatic steatosis, choledocholithiasis, eczema as child. Last Myocardial Infarction Date:: 02/12/2019 History of Any Multi-Drug Resistant Organisms: None Reported Past Surgical History: Heart Catheterization, Heart Catheterization With Stent, Orthopedic Surgery Additional Past Surgical History / Comment(s): skin cancer removed from nose August 2020 Past Anesthesia/Blood Transfusion Reactions: No Reported Reaction Date of Last Stent Placement:: 2012 Past Psychological History: Anxiety, Depression Smoking Status: Never smoker Past Alcohol Use History: Occasional Past Drug Use History: None Reported - Past Family History Mother Family Medical History: Coronary Artery Disease (CAD), Diabetes Mellitus, Myocardial Infarction ([place]) Father Family Medical History: Diabetes Mellitus, Renal Disease family Additional Family Medical History / Comment(s): Mother with history of diabetes mellitus and CAD, father with history of heart disease and diabetes General Exam Limitations: no limitations General appearance: alert, in no apparent distress Head exam: Present: atraumatic, normocephalic Eye exam: Present: normal appearance, PERRL ENT exam: Present: normal exam Neck exam: Present: normal inspection. Absent: tenderness Respiratory exam: Present: rales, decreased breath sounds. Absent: respiratory distress Cardiovascular Exam: Present: regular rate, normal rhythm GI/Abdominal exam: Present: soft. Absent: distended, tenderness, guarding Extremities exam: Present: pedal edema (Erythema) Neurological exam: Present: alert, CN II-XII intact. Absent: motor sensory deficit Psychiatric exam: Present: normal affect, normal mood Skin exam: Present: warm Course Vital Signs 01/15/22 21:45 Temperature 98.3 F Pulse Rate 78 Respiratory 22 Rate Blood Pressure 128/85 O2 Sat by Pulse 97 Oximetry EKG Findings - EKG Comments: EKG Findings:: EKG: Suspect sinus rhythm with prolonged UT interval intraventricular conduction delay, rate of 78, QRS duration 165, QTC [address] segment elevation Medical Decision Making - Medical Decision Making 58-year-old male increased fluid retention, increased dyspnea. Patient has been on metolazone without significant improvement. No fever. No chest pain. Patient does have bilateral lower extremity edema and Rales bilaterally. Chest x-ray shows pleural effusion and pulmonary venous congestion. He has an elevated BNP, negative troponin, stable anemia and stable chronic kidney disease. He is given a dose of Lasix in the emergency department will be admitted for IV diuresis. Case discussed with Dr. Hernandez - Lab Data Result diagrams: 01/15/22 22:07 01/15/22 22:07 Lab Results 01/15/22 01/15/22 01/15/22 Range/Units 22:07 22:07 22:07 WBC 7.1 (3.8-10.6) k/uL RBC 3.77 L (4.30-5.90) m/uL Hgb 11.0 L (13.0-17.5) gm/dL Hct 36.0 L (39.0-53.0) % MCV 95.5 (80.0-100.0) fL MCH 29.3 (25.0-35.0) pg MCHC 30.6 L (31.0-37.0) g/dL RDW 17.7 H (11.5-15.5) % Plt Count 164 (150-450) k/uL MPV 8.9 Neutrophils % 75 % Lymphocytes % 14 % Monocytes % 6 % Eosinophils % 2 % Basophils % 1 % Neutrophils # 5.4 (1.3-7.7) k/uL Lymphocytes # 1.0 (1.0-4.8) k/uL Monocytes # 0.5 (0-1.0) k/uL Eosinophils # 0.2 (0-0.7) k/uL Basophils # 0.1 (0-0.2) k/uL Hypochromasia Moderate Anisocytosis Slight Macrocytosis Slight PT 13.9 H (9.0-12.0) sec INR 1.3 H (<1.2) APTT 29.6 (22.0-30.0) sec Sodium 137 (137-145) mmol/L Potassium 4.7 (3.5-5.1) mmol/L Chloride 96 L (98-107) mmol/L Carbon Dioxide 25 (22-30) mmol/L Anion Gap 16 mmol/L BUN 46 H (9-20) mg/dL Creatinine 1.63 H (0.66-1.25) mg/dL Est GFR (CKD-EPI)AfAm 49 (>60 ml/min/1.73 sqM) Est GFR (CKD-EPI)NonAf 43 (>60 ml/min/1.73 sqM) Glucose 226 H (74-99) mg/dL Plasma Lactic Acid Dwain (0.7-2.0) mmol/L Calcium 9.5 (8.4-10.2) mg/dL Total Bilirubin 1.2 (0.2-1.3) mg/dL AST 25 (17-59) U/L ALT 18 (4-49) U/L Alkaline Phosphatase 65 (38-126) U/L Troponin I (0.000-0.034) ng/mL NT-Pro-B Natriuret Pep pg/mL Total Protein 7.1 (6.3-8.2) g/dL Albumin 4.2 (3.5-5.0) g/dL 01/15/22 01/15/22 01/15/22 Range/Units 22:07 22:07 22:07 WBC (3.8-10.6) k/uL RBC (4.30-5.90) m/uL Hgb (13.0-17.5) gm/dL Hct (39.0-53.0) % MCV (80.0-100.0) fL MCH (25.0-35.0) pg MCHC (31.0-37.0) g/dL RDW (11.5-15.5) % Plt Count (150-450) k/uL MPV Neutrophils % % Lymphocytes % % Monocytes % % Eosinophils % % Basophils % % Neutrophils # (1.3-7.7) k/uL Lymphocytes # (1.0-4.8) k/uL Monocytes # (0-1.0) k/uL Eosinophils # (0-0.7) k/uL Basophils # (0-0.2) k/uL Hypochromasia Anisocytosis Macrocytosis PT (9.0-12.0) sec INR (<1.2) APTT (22.0-30.0) sec Sodium (137-145) mmol/L Potassium (3.5-5.1) mmol/L Chloride (98-107) mmol/L Carbon Dioxide (22-30) mmol/L Anion Gap mmol/L BUN (9-20) mg/dL Creatinine (0.66-1.25) mg/dL Est GFR (CKD-EPI)AfAm (>60 ml/min/1.73 sqM) Est GFR (CKD-EPI)NonAf (>60 ml/min/1.73 sqM) Glucose (74-99) mg/dL Plasma Lactic Acid Dwain 1.2 (0.7-2.0) mmol/L Calcium (8.4-10.2) mg/dL Total Bilirubin (0.2-1.3) mg/dL AST (17-59) U/L ALT (4-49) U/L Alkaline Phosphatase (38-126) U/L Troponin I 0.013 (0.000-0.034) ng/mL NT-Pro-B Natriuret Pep 97132 pg/mL Total Protein (6.3-8.2) g/dL Albumin (3.5-5.0) g/dL Disposition Clinical Impression: Congestive heart failure Disposition: ADMITTED IP TO THIS HOSP Condition: Stable Is patient prescribed a controlled substance at d/c from ED?: No Referrals: Mike Escobar MD [Primary Care Provider] - 1-2 days Time of Disposition: 23:19
[2022-01-15 22:34] LABS: Albumin 4.2 g/dL (3.5-5.0); Calcium 9.5 mg/dL (8.4-10.2); Potassium 4.7 mmol/L (3.5-5.1); Total Bilirubin 1.2 mg/dL (0.2-1.3); Total Protein 7.1 g/dL (6.3-8.2)
--- NOTE | 2022-01-15 22:35 | XR ---
EXAMINATION TYPE: XR chest 2V DATE OF EXAM: 01/15/2022 COMPARISON: 1121 HISTORY: Difficulty breathing TECHNIQUE: FINDINGS: Heart is top normal in size. There is minimal blunting of the posterior costophrenic angles . No heart failure seen. There are no hilar masses. Bony thorax is intact. IMPRESSION: Small pleural effusions. There is improvement in the pulmonary congestion compared to old exam.
[2022-01-15 22:39] LABS: INR 1.3 (<1.2); Partial Thromboplastin Time 29.6 sec (22.0-30.0); Prothrombin Time 13.9 sec (9.0-12.0)
[2022-01-15] MEDS ORDERED: FUROSEMIDE 10 MG/ML 4 ML VIAL IV STA (23:11)
[2022-01-15] MEDS ORDERED: NALOXONE 0.4 MG/ML 1 ML VIAL IV PRN (23:17)
[2022-01-16] MEDS ORDERED: ALPRAZolam 0.25 MG TAB PO STA (00:25)
[2022-01-16] MEDS ORDERED: COLLAGENASE 250 UNIT/GM OINTMENT 30 GM TUBE TOPICAL SCH ×2 (00:59→09:00)
--- NOTE | 2022-01-16 01:57 | P.HPIM ---
History of Present Illness H&P Date: 01/16/22 The patient is a 58-year-old male with a PMH of systolic CHF EF 20%, history of left lower extremity DVT on Eliquis, chronic kidney disease who presents to the emergency room with complaints of shortness of breath and lower extremity edema. The patient reports that his symptoms of gradually been worsening over the past 2-3 weeks. He reports that his diuretics were recently updated, although his symptoms continued to worsen. He reports worsening lower extremity edema as well as orthopnea and PND. The patient also reports chronic left lower extremity nonhealing ulcers for which he follows at the wound care clinic. Denied experiencing chest discomfort. He also denied fever, chills, cough, nausea, vomiting. Chest x-ray in the emergency room revealed small pleural effusions with EKG showing an irregular rhythm at 78 bpm. Laboratory evaluation was remarkable for BUN of 46, creatinine 1.63, BNP 22,700, troponin 0.013. Review of systems: Pertinent positives and negatives as discussed in HPI, a complete review of systems was performed and all other systems are negative. Physical examination: General: non toxic, no distress, appears at stated age, obese Derm: Large left lateral lower extremity nonhealing stage III-IV ulcers with erythematous base and minimal surrounding erythema, warm Head: atraumatic, normocephalic, symmetric Eyes: EOMI, no lid lag, anicteric sclera, pupils equal round reactive to light ENT: Nose and ears atraumatic Neck: No cervical lymphadenopathy, trachea midline, supple Mouth: no lip lesion, mucus membranes moist Cardiovascular: S1S2 reg, no murmur, positive dorsalis pedis pulse bilateral, 2+ bilateral lower extremity pitting edema Lungs: CTA bilateral, no rhonchi, no rales, no accessory muscle use Abdominal: soft, nontender to palpation, no guarding Ext: muscle strength 5 out of 5 in all 4 extremities grossly, no gross muscle atrophy, no contractures, Neuro: CN II-XI grossly intact, no gross focal neuro deficits Psych: Alert, oriented, appropriate affect Assessment/plan Acute CHF exacerbation -Cardiology consult -Cardiac monitoring -Continue with Lasix -Intake and output -Daily weights -Monitor electrolytes Left lower extremity nonhealing ulcers -Wound care consult Chronic conditions: Type II DM, history of DVT, hypertension, hyperlipidemia -Continue with home meds DVT prophylaxis -Eliquis The patient is admitted with an anticipated less than 2 midnight stay for evaluation of CHF CODE STATUS: Full Code Discussed with: Patient Anticipated discharge date: in am Anticipated discharge place: Home Past Medical History Past Medical History: Coronary Artery Disease (CAD), Cancer, Heart Failure, Diabetes Mellitus, Deep Vein Thrombosis (DVT), Hyperlipidemia, Hypertension, Liver Disease, Myocardial Infarction ([place]), Prostate Disorder, Renal Disease, Skin Disorder Additional Past Medical History / Comment(s): Ischemic cardiomyopathy, chronic CHF, 10/26/21 DVT L lower extremity, IDDM type II, neuropathy bilaterl legs/feet, L leg wounds, BPH, CKD stage III, hyperuricemia, hepatic steatosis, choledocholithiasis, eczema as child. Last Myocardial Infarction Date:: 02/12/2019 History of Any Multi-Drug Resistant Organisms: None Reported Past Surgical History: Heart Catheterization, Heart Catheterization With Stent, Orthopedic Surgery Additional Past Surgical History / Comment(s): skin cancer removed from nose August 2020 Past Anesthesia/Blood Transfusion Reactions: No Reported Reaction Date of Last Stent Placement:: 2012 Past Psychological History: Anxiety, Depression Smoking Status: Never smoker Past Alcohol Use History: Occasional Past Drug Use History: None Reported - Past Family History Mother Family Medical History: Coronary Artery Disease (CAD), Diabetes Mellitus, Myocardial Infarction ([place]) Father Family Medical History: Diabetes Mellitus, Renal Disease family Additional Family Medical History / Comment(s): Mother with history of diabetes mellitus and CAD, father with history of heart disease and diabetes Medications and Allergies Home Medications Medication Instructions Recorded Confirmed Type Acetaminophen Tab [Tylenol] 650 mg PO Q6H PRN 08/22/21 12/21/21 History ALPRAZolam [Xanax] 0.25 mg PO BID #6 tab 12/06/21 12/21/21 Rx Apixaban [Eliquis] 5 mg PO BID #60 tab 12/06/21 12/21/21 Rx Levofloxacin [Levaquin] 500 mg PO Q24H #14 tab 12/06/21 12/21/21 Rx Metoprolol Succinate (ER) [Toprol 50 mg PO BID@0800,2000 #60 tab 12/06/21 12/21/21 Rx XL] Nitroglycerin Sl Tabs [Nitrostat] 0.4 mg SL Q5M PRN #30 tab 12/06/21 12/21/21 Rx Spironolactone [Aldactone] 12.5 mg PO DAILY #30 tab 12/06/21 12/21/21 Rx Tamsulosin [Flomax] 0.4 mg PO HS #30 cap 12/06/21 12/21/21 Rx Torsemide [Demadex] 20 mg PO DAILY #30 tab 12/06/21 12/21/21 Rx Aspirin 81 mg PO DAILY #90 tab 12/15/21 12/21/21 Rx Atorvastatin [Lipitor] 80 mg PO DAILY #30 tab 12/15/21 12/21/21 Rx FLUoxetine HCL [PROzac] 20 mg PO DAILY cap 12/15/21 12/21/21 Rx Isosorbide Mononitrate ER [Imdur] 30 mg PO DAILY #30 tab 12/15/21 12/21/21 Rx allopurinoL [Zyloprim] 100 mg PO DAILY tab 12/15/21 12/21/21 Rx Allergies Allergy/AdvReac Type Severity Reaction Status Date / Time ciprofloxacin [From Cipro] Allergy Rash/Hives Verified 01/15/22 21:51 Physical Exam Vitals: Vital Signs Temp Pulse Resp BP Pulse Ox 01/15/22 23:51 24 01/15/22 22:30 79 18 134/91 01/15/22 21:45 98.3 F 78 22 128/85 97 Intake and Output 01/15/22 01/15/22 01/16/22 14:59 22:59 06:59 Other: Weight 97.976 kg Results CBC & Chem 7: 01/15/22 22:07 01/15/22 22:07 Labs: Abnormal Lab Results - Last 24 Hours (Table) 01/15/22 01/15/22 01/15/22 Range/Units 22:07 22:07 22:07 RBC 3.77 L (4.30-5.90) m/uL Hgb 11.0 L (13.0-17.5) gm/dL Hct 36.0 L (39.0-53.0) % MCHC 30.6 L (31.0-37.0) g/dL RDW 17.7 H (11.5-15.5) % PT 13.9 H (9.0-12.0) sec INR 1.3 H (<1.2) Chloride 96 L (98-107) mmol/L BUN 46 H (9-20) mg/dL Creatinine 1.63 H (0.66-1.25) mg/dL Glucose 226 H (74-99) mg/dL
[2022-01-16] MEDS ORDERED: ACETAMINOPHEN TAB 325 MG TAB PO STA (05:27)
--- NOTE | 2022-01-16 08:55 | P.CONS ---
History of Present Illness - Reason for Consult Consult date: 01/16/22 wound care - History of Present Illness This is a 66-year-old patient known to the wound care center being seen in ER for nonhealing ulceration to the left lower extremity. Original cause of wound was Blister. The date acquired was: 11/06/2021. The wound has been in treatment 6 weeks. The wound is currently classified as a Grade 2 wound with etiology of Diabetic Wound/Ulcer of the Lower Extremity and is located on the Left,Lateral Lower Leg. The wound measures 14.9cm length x 5.1cm width x 0.4cm depth; 59.682cm^2 area and 23.873cm^3 volume. There is Fat Layer (Subcutaneous Tissue) exposed. There is no tunneling or undermining noted. There is a medium amount of serous drainage noted. The wound margin is well defined and not attached to the wound base. There is no granulation within the wound bed. There is a large (67- 100%) amount of necrotic tissue within the wound bed including Adherent Slough. The periwound skin appearance exhibited: Dry/Scaly. The periwound skin appearance did not exhibit: Callus, Crepitus, Excoriation, Induration, Rash, Scarring, Maceration, Atrophie Nesbitt, Cyanosis, Ecchymosis, Hemosiderin Staining, Mottled, Pallor, Rubor, Erythema. Periwound temperature was noted as No Abnormality. The periwound has tenderness on palpation. Original cause of wound was Blister. The date acquired was: 11/06/2021. The wound has been in treatment 6 weeks. The wound is currently classified as a Grade 2 wound with etiology of Diabetic Wound/Ulcer of the Lower Extremity and is located on the Left,Lateral Ankle. The wound measures 2cm length x 2.5cm width x 0.3cm depth; 3.927cm^2 area and 1.178cm^3 volume. There is Fat Layer (Subcutaneous Tissue) exposed. There is no tunneling or undermining noted. There is a medium amount of serous drainage noted. The wound margin is well defined and not attached to the wound base. There is no granulation within the wound bed. There is a large (67- 100%) amount of necrotic tissue within the wound bed including Adherent Slough. The periwound skin appearance exhibited: Scarring, Dry/Scaly, Hemosiderin Staining. The periwound skin appearance did not exhibit: Callus, Crepitus, Excoriation, Induration, Rash, Maceration, Atrophie [place], Cyanosis, Ecchymosis, Mottled, Pallor, Rubor, Erythema. Periwound temperature was noted as No Abnormality. The periwound has tenderness on palpation. Original cause of wound was Blister. The date acquired was: 11/06/2021. The wound has been in treatment 6 weeks. The wound is currently classified as a Grade 2 wound with etiology of Diabetic Wound/Ulcer of the Lower Extremity and is located on the Left,Medial Lower Leg. The wound measures 6.9cm length x 2.3cm width x 0.5cm depth; 12.464cm^2 area and 6.232cm^3 volume. There is Fat Layer (Subcutaneous Tissue) exposed. There is no tunneling or undermining noted. There is a medium amount of serous drainage noted. The wound margin is flat and intact. There is no granulation within the wound bed. There is a large (67-100%) amount of necrotic tissue within the wound bed including Adherent Slough. The periwound skin appearance exhibited: Scarring, Dry/Scaly, Hemosiderin Staining. The periwound skin appearance did not exhibit: Callus, Crepitus, Excoriation, Induration, Rash, Maceration, Atrophie Nesbitt, Cyanosis, Ecchymosis, Mottled, Pallor, Rubor, Erythema. Periwound temperature was noted as No Abnormality. The periwound has tenderness on palpation. Original cause of wound was Blister. The date acquired was: 11/06/2021. The wound has been in treatment 6 weeks. The wound is currently classified as a Grade 2 wound with etiology of Diabetic Wound/Ulcer of the Lower Extremity and is located on the Left,Medial Ankle. The wound measures 3.5cm length x 1.7cm width x 0.1cm depth; 4.673cm^2 area and 0.467cm^3 volume. There is Fat Layer (Subcutaneous Tissue) exposed. There is no tunneling or undermining noted. There is a medium amount of serous drainage noted. The wo und margin is flat and intact. There is no granulation within the wound bed. There is a large (67-100%) amount of necrotic tissue within the wound bed including Adherent Slough. The periwound skin appearance exhibited: Scarring, Hemosiderin Staining. The periwound skin appearance did not exhibit: Callus, Crepitus, Excoriation, Induration, Rash, Dry/Scaly, Maceration, Atrophie Ally, Cyanosis, Ecchymosis, Mottled, Pallor, Rubor, Erythema. Periwound temperature was noted as No Abnormality. The periwound has tenderness on palpation. Review Of Systems: Constitutional: No fever, no chills, no night sweats. No weight change. No weakness, fatigue or lethargy. No daytime sleepiness. Integumentary:reports wounds, no lesions. No rash or pruritus. No unusual bruising. No change in hair or nails. Physical exam: General Appearance: Alert, cooperative, no distress, appears stated age. Skin: See HPI all other Skin color, texture, tugor normal, no rashes or lesions. Neurologic: Alert oriented x3 Assessment: 1. Diabetes with skin ulceration 2. Atherosclerosis of [place] arteries of the left leg with ulceration of the ankle 3. Atherosclerosis of [place] arteries of the left leg with ulceration of the calf 3. 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 Non-pressure ulcer of left calf with fat layer exposure Plan: 1. Apply Santyl, saline moistened gauze, dry gauze, rolled gauze and secure with paper tape. Change Saturday. Thank you for the consultation any questions please contact the wound care center DNP note has been reviewed and discussed with Dr. Song and the impression and plan of care has been directed as dictated. Past Medical History Past Medical History: Coronary Artery Disease (CAD), Cancer, Heart Failure, Diabetes Mellitus, Deep Vein Thrombosis (DVT), Hyperlipidemia, Hypertension, Liver Disease, Myocardial Infarction ([place]), Prostate Disorder, Renal Disease, Skin Disorder Additional Past Medical History / Comment(s): Ischemic cardiomyopathy, chronic CHF, 10/26/21 DVT L lower extremity, IDDM type II, neuropathy bilaterl legs/feet, L leg wounds, BPH, CKD stage III, hyperuricemia, hepatic steatosis, choledocholithiasis, eczema as child. Last Myocardial Infarction Date:: 02/12/2019 History of Any Multi-Drug Resistant Organisms: None Reported Past Surgical History: Heart Catheterization, Heart Catheterization With Stent, Orthopedic Surgery Additional Past Surgical History / Comment(s): skin cancer removed from nose August 2020 Past Anesthesia/Blood Transfusion Reactions: No Reported Reaction Date of Last Stent Placement:: 2012 Past Psychological History: Anxiety, Depression Smoking Status: Never smoker Past Alcohol Use History: Occasional Past Drug Use History: None Reported - Past Family History Mother Family Medical History: Coronary Artery Disease (CAD), Diabetes Mellitus, Myocardial Infarction ([place]) Father Family Medical History: Diabetes Mellitus, Renal Disease family Additional Family Medical History / Comment(s): Mother with history of diabetes mellitus and CAD, father with history of heart disease and diabetes Medications and Allergies Home Medications Medication Instructions Recorded Confirmed Type Acetaminophen Tab [Tylenol] 650 mg PO Q6H PRN 08/22/21 01/16/22 History ALPRAZolam [Xanax] 0.25 mg PO BID #6 tab 12/06/21 01/16/22 Rx Apixaban [Eliquis] 5 mg PO BID #60 tab 12/06/21 01/16/22 Rx Nitroglycerin Sl Tabs [Nitrostat] 0.4 mg SL Q5M PRN #30 tab 12/06/21 01/16/22 Rx Spironolactone [Aldactone] 12.5 mg PO DAILY #30 tab 12/06/21 01/16/22 Rx Tamsulosin [Flomax] 0.4 mg PO HS #30 cap 12/06/21 01/16/22 Rx Aspirin 81 mg PO DAILY #90 tab 12/15/21 01/16/22 Rx Atorvastatin [Lipitor] 80 mg PO DAILY #30 tab 12/15/21 01/16/22 Rx FLUoxetine HCL [PROzac] 20 mg PO DAILY cap 12/15/21 01/16/22 Rx Isosorbide Mononitrate ER [Imdur] 30 mg PO DAILY #30 tab 12/15/21 01/16/22 Rx allopurinoL [Zyloprim] 100 mg PO DAILY tab 12/15/21 01/16/22 Rx Metoprolol Succinate (ER) [Toprol 50 mg PO DAILY 01/16/22 01/16/22 History Xl] Sacubitril/Valsartan [Entresto 24 1 each PO BID #60 tab 01/16/22 Rx mg-26 mg Tablet] Torsemide [Demadex] 40 mg PO DAILY 01/16/22 01/16/22 History Allergies Allergy/AdvReac Type Severity Reaction Status Date / Time ciprofloxacin [From Cipro] Allergy Rash/Hives Verified 01/16/22 08:15 Physical Exam Vitals: Vital Signs Temp Pulse Resp BP Pulse Ox 01/16/22 06:00 67 22 126/87 01/16/22 05:00 66 22 136/92 01/16/22 04:00 81 24 128/94 01/16/22 03:00 77 22 120/86 98 01/16/22 02:00 80 20 122/80 97 01/16/22 01:00 59 L 18 141/95 01/15/22 23:51 24 01/15/22 22:30 79 18 134/91 01/15/22 21:45 98.3 F 78 22 128/85 97 Intake and Output 01/15/22 01/16/22 01/16/22 22:59 06:59 14:59 Output Total 1000 Balance -1000 Output: Urine 1000 Other: # Voids 4 Weight 97.976 kg Results CBC & Chem 7: 01/15/22 22:07 01/15/22 22:07 Labs: Abnormal Lab Results - Last 24 Hours (Table) 01/15/22 01/15/22 01/15/22 Range/Units 22:07 22:07 22:07 RBC 3.77 L (4.30-5.90) m/uL Hgb 11.0 L (13.0-17.5) gm/dL Hct 36.0 L (39.0-53.0) % MCHC 30.6 L (31.0-37.0) g/dL RDW 17.7 H (11.5-15.5) % PT 13.9 H (9.0-12.0) sec INR 1.3 H (<1.2) Chloride 96 L (98-107) mmol/L BUN 46 H (9-20) mg/dL Creatinine 1.63 H (0.66-1.25) mg/dL Glucose 226 H (74-99) mg/dL Assessment and Plan (1) Atherosclerosis of [place] arteries of left leg with ulceration of ankle Current Visit: No Status: Acute Code(s): I70.243 - ATHSCL [place] ARTERIES OF LEFT LEG W ULCERATION OF ANKLE SNOMED Code(s): 152594026 (2) Atherosclerosis of [place] arteries of left leg with ulceration of calf Current Visit: No Status: Acute Code(s): I70.242 - ATHSCL [place] ARTERIES OF LEFT LEG W ULCERATION OF CALF SNOMED Code(s): 891374709 (3) Diabetes mellitus due to underlying condition with other skin ulcer Current Visit: No Status: Acute Code(s): E08.622 - DIABETES DUE TO UNDERLYING CONDITION W OTH SKIN ULCER; L98.499 - NON-PRESSURE CHRONIC ULCER OF SKIN OF SITES W UNSP SEVERITY SNOMED Code(s): 8590078 (4) Non-pressure chronic ulcer of left ankle with fat layer exposed Current Visit: No Status: Acute Code(s): L97.322 - NON-PRESSURE CHRONIC ULCER OF LEFT ANKLE W FAT LAYER EXPOSED SNOMED Code(s): 39708745575161707 (5) Non-pressure chronic ulcer of left calf with fat layer exposed Current Visit: No Status: Acute Code(s): L97.222 - NON-PRESSURE CHRONIC ULCER OF LEFT CALF W FAT LAYER EXPOSED SNOMED Code(s): 15806196306402434
[2022-01-16] MEDS ORDERED: lisinopriL 5 MG TAB PO SCH ×3 (09:00→12:00)
[2022-01-16 09:09] LABS: Anion Gap 14.8 mmol/L (10.00-18.00); BUN/Creat Ratio 24.76 Ratio (12.00-20.00); Blood Urea Nitrogen 42.1 mg/dL (9.0-27.0); Calcium 9.4 mg/dL (8.7-10.3); Carbon Dioxide 26.2 mmol/L (20.0-27.5); Non-African American GFR(CKD) 40.5 (60.0-200.0); Potassium 4.2 mmol/L (3.5-5.5)
--- NOTE | 2022-01-16 09:22 | P.CRDCN ---
History of Present Illness Consult date: 01/16/22 History of present illness: HISTORY OF PRESENT ILLNESS: This is a 66-year-old male with a past medical history significant for ischemic and nonischemic cardiomyopathy (refusing ICD), frequent alcohol use, lower extremity cellulitis, DVT, hypertension, hyperlipidemia, and diabetes. Patient follows in the office with Dr. Miranda but is in the process of switching to Dr. Leblanc. We have been asked to see the patient in consultation for congestive h eart failure. Patient examined at the bedside. Patient presented to the emergency room a chief complaint of shortness of breath. Patient was found to be in acute CHF and was started on IV Lasix. Patient denies any chest pain or pressure. He reports mild improvement in his shortness of breath. Denies dizziness or lightheadedness. Vital signs are stable. * EKG reveals a regular supraventricular rhythm without P waves noted * Chest xray small pleural effusions. There is improvement in pulmonary congestion compared to old exam. * Laboratory data: WBC 7.1. Hemoglobin 11.0. Platelet count 164. Sodium 138. Potassium 4.2. BUN 42. Creatinine 1.7. ProBNP 22,700. Troponin negative 1. * Current home cardiac medications include losartan 25 mg daily, Demadex 40 mg daily, Aldactone 12.5 mg daily, metoprolol succinate 50 mg daily, Imdur 30 mg daily, Lipitor 80 mg daily, aspirin 81 mg daily, and Eliquis 5 mg twice a day * Most recent echocardiogram obtained in December 2021 revealed ejection fraction less than 15%, mild MR, mild TR * Cardiac catheterization history: March 2018 revealing RCA occluded in the midportion with collaterals, 4050 percent stenosis of the LAD, moderate diffuse disease of the circumflex REVIEW OF SYSTEMS: At the time of my exam: CONSTITUTIONAL: Denies fever or chills. HEENT: Denies blurred vision, vision changes, or eye pain. Denies hemoptysis CARDIOVASCULAR: Denies chest pain. Denies orthopnea. Denies PND. Denies palpita tions RESPIRATORY: Denies shortness of breath. GASTROINTESTINAL: Denies abdominal pain. Denies nausea or vomiting. HEMATOLOGIC: Denies bleeding disorders. GENITOURINARY: Denies any blood in urine. SKIN: Denies pruitis. Denies rash. PHYSICAL EXAM: VITAL SIGNS: Reviewed. GENERAL: Well-developed in no acute distress. HEENT: Head is normocephalic. Pupils are equal, round. Sclerae anicteric. Mucous membranes of the mouth are moist. Neck supple. No JVD or thyromegaly LUNGS: Respirations even and unlabored. Lungs diminished with bibasilar crackles. HEART: Regular rate and rhythm. S1 and S2 heard. ABDOMEN: Soft. Nondistended. Nontender. EXTREMITIES: Normal range of motion. No clubbing or cyanosis. Peripheral pulses intact. Trace LE edema with chronic discoloration noted. Dressing noted to LLE. NEUROLOGIC: Awake and alert. Oriented x 3. ASSESSMENT: Shortness of breath Acute on chronic congestive heart failure with reduced EF, 15% Ischemic and nonischemic cardiomyopathy, refusing AICD Coronary artery disease Left lower extremity ulcerations History of DVT History of lower extremity cellulitis Hypertension Hyperlipidemia Diabetes Frequent alcohol use PLAN: No need to repeat echo as this was performed in December 2021 Continue IV lasix Monitor kidney function, daily weights, accurate I&O Recommend Entresto. However, copay is $47 a month and patient states he can not afford it. Will continue with home dose of Losartan at this time. Recommend abstinence from alcohol Continue additional cardiac medications Further recommendations pending patient course Nurse practitioner note has been reviewed by physician. Signing provider agrees with the documented findings, assessment, and plan of care. Past Medical History Past Medical History: Coronary Artery Disease (CAD), Cancer, Heart Failure, Diabetes Mellitus, Deep Vein Thrombosis (DVT), Hyperlipidemia, Hypertension, Liver Disease, Myocardial Infarction ([place]), Prostate Disorder, Renal Disease, Ski n Disorder Additional Past Medical History / Comment(s): Ischemic cardiomyopathy, chronic CHF, 10/26/21 DVT L lower extremity, IDDM type II, neuropathy bilaterl legs/feet, L leg wounds, BPH, CKD stage III, hyperuricemia, hepatic steatosis, choledocholithiasis, eczema as child. Last Myocardial Infarction Date:: 02/12/2019 History of Any Multi-Drug Resistant Organisms: None Reported Past Surgical History: Heart Catheterization, Heart Catheterization With Stent, Orthopedic Surgery Additional Past Surgical History / Comment(s): skin cancer removed from nose August 2020 Past Anesthesia/Blood Transfusion Reactions: No Reported Reaction Date of Last Stent Placement:: 2012 Past Psychological History: Anxiety, Depression Smoking Status: Never smoker Past Alcohol Use History: Occasional Past Drug Use History: None Reported - Past Family History Mother Family Medical History: Coronary Artery Disease (CAD), Diabetes Mellitus, Myocardial Infarction ([place]) Father Family Medical History: Diabetes Mellitus, Renal Disease family Additional Family Medical History / Comment(s): Mother with history of diabetes mellitus and CAD, father with history of heart disease and diabetes Medications and Allergies Home Medications Medication Instructions Recorded Confirmed Type Acetaminophen Tab [Tylenol] 650 mg PO Q6H PRN 08/22/21 01/16/22 History ALPRAZolam [Xanax] 0.25 mg PO BID #6 tab 12/06/21 01/16/22 Rx Apixaban [Eliquis] 5 mg PO BID #60 tab 12/06/21 01/16/22 Rx Nitroglycerin Sl Tabs [Nitrostat] 0.4 mg SL Q5M PRN #30 tab 12/06/21 01/16/22 Rx Spironolactone [Aldactone] 12.5 mg PO DAILY #30 tab 12/06/21 01/16/22 Rx Tamsulosin [Flomax] 0.4 mg PO HS #30 cap 12/06/21 01/16/22 Rx Aspirin 81 mg PO DAILY #90 tab 12/15/21 01/16/22 Rx Atorvastatin [Lipitor] 80 mg PO DAILY #30 tab 12/15/21 01/16/22 Rx FLUoxetine HCL [PROzac] 20 mg PO DAILY cap 12/15/21 01/16/22 Rx Isosorbide Mononitrate ER [Imdur] 30 mg PO DAILY #30 tab 12/15/21 01/16/22 Rx allopurinoL [Zyloprim] 100 mg PO DAILY tab 12/15/21 01/16/22 Rx Losartan Potassium [Cozaar] 25 mg PO DAILY 01/16/22 01/16/22 History Metoprolol Succinate (ER) [Toprol 50 mg PO DAILY 01/16/22 01/16/22 History Xl] Torsemide [Demadex] 40 mg PO DAILY 01/16/22 01/16/22 History Allergies Allergy/AdvReac Type Severity Reaction Status Date / Time ciprofloxacin [From Cipro] Allergy Rash/Hives Verified 01/16/22 08:15 Physical Exam Vitals: Vital Signs Temp Pulse Resp BP Pulse Ox 01/16/22 06:00 67 22 126/87 01/16/22 05:00 66 22 136/92 01/16/22 04:00 81 24 128/94 01/16/22 03:00 77 22 120/86 98 01/16/22 02:00 80 20 122/80 97 01/16/22 01:00 59 L 18 141/95 01/15/22 23:51 24 01/15/22 22:30 79 18 134/91 01/15/22 21:45 98.3 F 78 22 128/85 97 Intake and Output 01/15/22 01/16/22 01/16/22 22:59 06:59 14:59 Output Total 1000 Balance -1000 Output: Urine 1000 Other: # Voids 4 Weight 97.976 kg Results 01/15/22 22:07 01/16/22 05:04 Cardiac Enzymes 01/15/22 01/15/22 Range/Units 22:07 22:07 AST 25 (17-59) U/L Troponin I 0.013 (0.000-0.034) ng/mL Coagulation 01/15/22 Range/Units 22:07 PT 13.9 H (9.0-12.0) sec APTT 29.6 (22.0-30.0) sec CBC 01/15/22 Range/Units 22:07 WBC 7.1 (3.8-10.6) k/uL RBC 3.77 L (4.30-5.90) m/uL Hgb 11.0 L (13.0-17.5) gm/dL Hct 36.0 L (39.0-53.0) % Plt Count 164 (150-450) k/uL Comprehensive Metabolic Panel 01/15/22 Range/Units 22:07 Sodium 137 (137-145) mmol/L Potassium 4.7 (3.5-5.1) mmol/L Chloride 96 L (98-107) mmol/L Carbon Dioxide 25 (22-30) mmol/L BUN 46 H (9-20) mg/dL Creatinine 1.63 H (0.66-1.25) mg/dL Glucose 226 H (74-99) mg/dL Calcium 9.5 (8.4-10.2) mg/dL AST 25 (17-59) U/L ALT 18 (4-49) U/L Alkaline Phosphatase 65 (38-126) U/L Total Protein 7.1 (6.3-8.2) g/dL Albumin 4.2 (3.5-5.0) g/dL Current Medications Generic Name Dose Route Start Last Admin Trade Name Bertramq PRN Reason Stop Dose Admin Apixaban 5 mg 01/16/22 09:00 Apixaban 5 Mg Tab PO BID [facility] Protocol Aspirin 81 mg 01/16/22 09:00 Aspirin 81 Mg PO DAILY [facility] Atorvastatin Calcium 80 mg 01/16/22 09:00 Atorvastatin 80 Mg Tab PO DAILY [facility] Collagenase 1 applic 01/16/22 09:00 Collagenase 250 Unit/Gm Ointment 30 Gm Tube TOPICAL DAILY [facility] Protocol Furosemide 40 mg 01/16/22 09:00 Furosemide 10 Mg/Ml 4 Ml Vial IV Q12HR [facility] Isosorbide Mononitrate 30 mg 01/16/22 09:00 Isosorbide Mononitrate Er 30 Mg Tab.Er.24h PO DAILY [facility] Metoprolol Succinate 50 mg 01/16/22 20:00 Metoprolol Succinate (Er) 50 Mg Tab.Er.24h PO BID@0800,2000 [facility] Naloxone HCl 0.2 mg 01/15/22 23:17 Naloxone 0.4 Mg/Ml 1 Ml Vial IV Q2M PRN Opioid Reversal Spironolactone 12.5 mg 01/16/22 09:00 Spironolactone 25 Mg Tab PO DAILY [facility] Intake and Output 01/15/22 01/16/22 01/16/22 22:59 06:59 14:59 Output Total 1000 Balance -1000 Output: Urine 1000 Other: # Voids 4 Weight 97.976 kg 01/15/22 22:07 01/15/22 22:07
[2022-01-16] MEDS: COLLAGENASE 250 UNIT/GM OINTMENT 30 GM TUBE TOPICAL SCH (10:06)
[2022-01-16] MEDS: ATORVASTATIN 80 MG TAB PO SCH (10:16)
[2022-01-16] MEDS: ISOSORBIDE MONONITRATE ER 30 MG TAB.ER.24H PO SCH ×2 (10:16→10:17)
[2022-01-16] MEDS: FUROSEMIDE 10 MG/ML 4 ML VIAL IV SCH ×2 (10:17→20:51)
[2022-01-16] MEDS: ASPIRIN 81 MG PO SCH (10:17)
[2022-01-16] MEDS: APIXABAN 5 MG TAB PO SCH ×2 (10:17→20:50)
[2022-01-16] MEDS: SPIRONOLACTONE 25 MG TAB PO SCH (10:17)
[2022-01-16] MEDS: ACETAMINOPHEN TAB 325 MG TAB PO PRN (16:22)
--- NOTE | 2022-01-16 17:20 | P.PN ---
Subjective Progress Note Date: 01/16/22 Patient was seen and examined. Patient reports slight improvement in his breathing and lower extremity swelling. States that he is not back to baseline. He denies any chest pain or palpitations. No nausea or vomiting. No fever or chills. Patient is in no acute distress. Assessment/plan Acute CHF exacerbation -Cardiology consult -Cardiac monitoring -Continue with Lasix -Intake and output -Daily weights -Continue metoprolol, losartan, Imdur Left lower extremity nonhealing ulcers -Wound care consult Chronic conditions: Type II DM, history of DVT, hypertension, hyperlipidemia -Continue with home meds DVT prophylaxis -Eliquis The patient is admitted with an anticipated less than 2 midnight stay for evaluation of CHF CODE STATUS: Full Code Discussed with: Patient Patient continues to show improvement. Anticipated DC in 1-2 days pending clinical improvement. Objective - Vital Signs Vital signs: Vital Signs Temp 98 F 01/16/22 15:35 Pulse 70 01/16/22 15:35 Resp 20 01/16/22 15:35 BP 128/76 01/16/22 15:35 Pulse Ox 93 L 01/16/22 15:35 FiO2 Intake & Output 01/15/22 01/16/22 01/16/22 18:59 06:59 18:59 Intake Total 250 Output Total 1000 1050 Balance -1000 -800 Weight 97.976 kg Intake: Oral 250 Output: Urine 1000 1050 Other: # Voids 4 - Labs CBC & Chem 7: 01/15/22 22:07 01/16/22 05:04 Labs: Abnormal Lab Results - Last 24 Hours (Table) 01/15/22 01/15/22 01/15/22 Range/Units 22:07 22:07 22:07 RBC 3.77 L (4.30-5.90) m/uL Hgb 11.0 L (13.0-17.5) gm/dL Hct 36.0 L (39.0-53.0) % MCHC 30.6 L (31.0-37.0) g/dL RDW 17.7 H (11.5-15.5) % PT 13.9 H (9.0-12.0) sec INR 1.3 H (<1.2) Chloride 96 L (98-107) mmol/L BUN 46 H (9-20) mg/dL Creatinine 1.63 H (0.66-1.25) mg/dL Est GFR (CKD-EPI)AfAm (60.0-200.0) Est GFR (CKD-EPI)NonAf (60.0-200.0) BUN/Creatinine Ratio (12.00-20.00) Ratio Glucose 226 H (74-99) mg/dL TSH (0.350-5.500) uIU/mL 01/16/22 01/16/22 Range/Units 05:04 05:04 RBC (4.30-5.90) m/uL Hgb (13.0-17.5) gm/dL Hct (39.0-53.0) % MCHC (31.0-37.0) g/dL RDW (11.5-15.5) % PT (9.0-12.0) sec INR (<1.2) Chloride (98-107) mmol/L BUN 42.1 H (9-20) mg/dL Creatinine 1.7 H (0.66-1.25) mg/dL Est GFR (CKD-EPI)AfAm 47.0 L (60.0-200.0) Est GFR (CKD-EPI)NonAf 40.5 L (60.0-200.0) BUN/Creatinine Ratio 24.76 H (12.00-20.00) Ratio Glucose 171 H (74-99) mg/dL TSH 14.000 H (0.350-5.500) uIU/mL
[2022-01-16] MEDS ORDERED: METOPROLOL SUCCINATE (ER) 50 MG TAB.ER.24H PO SCH (20:00)
[2022-01-16 20:46] LABS: Glucose,Whole Blood 263 mg/dL (70-110)
[2022-01-16] MEDS: ALPRAZolam 0.25 MG TAB PO PRN (22:49)
[2022-01-17 07:35] LABS: Glucose,Whole Blood 218 mg/dL (70-110)
[2022-01-17] MEDS: ACETAMINOPHEN TAB 325 MG TAB PO PRN ×2 (07:47→14:45)
[2022-01-17] MEDS: LOSARTAN 25 MG TAB PO SCH (09:32)
[2022-01-17] MEDS: APIXABAN 5 MG TAB PO SCH ×2 (09:32→20:31)
[2022-01-17] MEDS: METOPROLOL SUCCINATE (ER) 50 MG TAB.ER.24H PO SCH (09:32)
[2022-01-17] MEDS: ASPIRIN 81 MG PO SCH (09:32)
[2022-01-17] MEDS: SPIRONOLACTONE 25 MG TAB PO SCH (09:33)
[2022-01-17] MEDS: TORSEMIDE 20 MG TAB PO SCH ×2 (09:33→17:10)
--- NOTE | 2022-01-17 09:36 | P.PN ---
Subjective Progress Note Date: 01/17/22 Patient was seen and examined. Patient reports significant improvement in his breathing and lower extremity swelling. States that he is not back to baseline. He denies any chest pain or palpitations. No nausea or vomiting. No fever or chills. General: non toxic, no distress, appears at stated age, obese Derm: Left lower extremity with dressing clean dry and intact Head: atraumatic, normocephalic, symmetric Eyes: EOMI, no lid lag, anicteric sclera ENT: Nose and ears atraumatic Neck: No cervical lymphadenopathy, trachea midline, supple Mouth: no lip lesion, mucus membranes moist Cardiovascular: S1S2 reg, no murmur, positive dorsalis pedis pulse bilateral, 1- 2+ bilateral lower extremity pitting edema Lungs: CTA bilateral, no rhonchi, no rales, no accessory muscle use Ext: muscle strength 5 out of 5 in all 4 extremities grossly, no gross muscle atrophy, no contractures, Neuro: no gross focal neuro deficits Psych: Alert, oriented, appropriate affect Assessment/plan Acute CHF exacerbation -Cardiology consult -Cardiac monitoring -IV Lasix switched to torsemide 40 mg by mouth twice a day -Intake and output -Daily weights -Continue metoprolol, losartan, Imdur, Aldactone Left lower extremity nonhealing ulcers -Wound care consult Chronic kidney disease stage IIIb -Creatinine appears at baseline -Avoid nephrotoxins -Outpatient nephrology follow-up Normocytic anemia -Appears at baseline -No active signs of bleeding -Continue to monitor Chronic conditions: Type II DM, history of DVT, hypertension, hyperlipidemia -Continue with home meds DVT prophylaxis -Eliquis CODE STATUS: Full Code Patient continues to show improvement. Diuresing well. Case was discussed with nursing and Cardiology [employer], plans to continue observation. Anticipate DC in 1-2 days. Objective - Vital Signs Vital signs: Vital Signs Temp 98.1 F 01/17/22 07:00 Pulse 94 01/17/22 07:00 Resp 18 01/17/22 07:00 BP 115/65 01/17/22 07:00 Pulse Ox 95 01/17/22 07:00 FiO2 Intake & Output 01/16/22 01/17/22 01/17/22 18:59 06:59 18:59 Intake Total 250 Output Total 1050 1450 Balance -800 -1450 Weight 94.3 kg Intake: Oral 250 Output: Urine 1050 1450 Other: # Voids 1 - Labs CBC & Chem 7: 01/15/22 22:07 01/16/22 05:04 Labs: Abnormal Lab Results - Last 24 Hours (Table) 01/16/22 01/16/22 01/17/22 Range/Units 05:04 20:44 07:33 POC Glucose (mg/dL) 263 H 218 H (70-110) mg/dL TSH 14.000 H (0.350-5.500) uIU/mL
[2022-01-17 10:17] LABS: African American GFR (CKD) 52 (>60 ml/min/1.73 sqM); Anion Gap 16 mmol/L; Blood Urea Nitrogen 45 mg/dL (9-20); Calcium 9.4 mg/dL (8.4-10.2); Carbon Dioxide 26 mmol/L (22-30); Chloride 95 mmol/L (98-107); Glucose 247 mg/dL (74-99); Non-African American GFR(CKD) 45 (>60 ml/min/1.73 sqM); Potassium 4.5 mmol/L (3.5-5.1); Sodium 137 mmol/L (137-145)
--- NOTE | 2022-01-17 11:33 | P.PN ---
Subjective Progress Note Date: 01/17/22 HISTORY OF PRESENT ILLNESS: This is a 66-year-old male with a past medical history significant for ischemic and nonischemic cardiomyopathy (refusing ICD), frequent alcohol use, lower extremity cellulitis, DVT, hypertension, hyperlipidemia, and diabetes. Patient follows in the office with Dr. Miranda but is in the process of switching to Dr. Leblanc. We have been asked to see the patient in consultation for congestive heart failure. Patient examined at the bedside. Patient presented to the emergency room a chief complaint of shortness of breath. Patient was found to be in acute CHF and was started on IV Lasix. Patient denies any chest pain or pressure. He reports mild improvement in his shortness of breath. Denies dizziness or lightheadedness. Vital signs are stable. * EKG reveals a regular supraventricular rhythm without P waves noted * Chest xray small pleural effusions. There is improvement in pulmonary congestion compared to old exam. * Laboratory data: WBC 7.1. Hemoglobin 11.0. Platelet count 164. Sodium 138. Potassium 4.2. BUN 42. Creatinine 1.7. ProBNP 22,700. Troponin negative 1. * Current home cardiac medications include losartan 25 mg daily, Demadex 40 mg daily, Aldactone 12.5 mg daily, metoprolol succinate 50 mg daily, Imdur 30 mg daily, Lipitor 80 mg daily, aspirin 81 mg daily, and Eliquis 5 mg twice a day * Most recent echocardiogram obtained in December 2021 revealed ejection fraction less than 15%, mild MR, mild TR * Cardiac catheterization history: March 2018 revealing RCA occluded in the midportion with collaterals, 4050 percent stenosis of the LAD, moderate diffuse disease of the circumflex 01/17/2022 Patient examined this morning at the bedside. Patient denies chest pain or pressure. He reports improvement in his shortness of breath. He remains on IV Lasix. Vital signs are stable. PHYSICAL EXAM: VITAL SIGNS: Reviewed. GENERAL: Well-developed in no acute distress. HEENT: Head is normocephalic. Pupils are equal, round. Sclerae anicteric. Mucous membranes of the mouth are moist. Neck supple. No JVD or thyromegaly LUNGS: Respirations even and unlabored. Lungs diminished with bibasilar crackles. HEART: Regular rate and rhythm. S1 and S2 heard. ABDOMEN: Soft. Nondistended. Nontender. EXTREMITIES: Normal range of motion. No clubbing or cyanosis. Peripheral pulses intact. Trace LE edema with chronic discoloration noted. Dressing noted to LLE. NEUROLOGIC: Awake and alert. Oriented x 3. ASSESSMENT: Shortness of breath Acute on chronic congestive heart failure with reduced EF, 15% Ischemic and nonischemic cardiomyopathy, refusing AICD Coronary artery disease Left lower extremity ulcerations History of DVT History of lower extremity cellulitis Hypertension Hyperlipidemia Diabetes Frequent alcohol use PLAN: Discontinue IV Lasix. Begin oral Demadex 40mg BID Monitor kidney function, daily weights, accurate I&O Recommend Entresto. However, copay is $47 a month and patient states he can not afford it. Will continue with home dose of Losartan at this time. Recommend abstinence from alcohol Continue additional cardiac medications Possible discharge home tomorrow Further recommendations pending patient course Nurse practitioner note has been reviewed by physician. Signing provider agrees with the documented findings, assessment, and plan of care. Objective - Vital Signs Vital signs: Vital Signs Temp 98.1 F 01/17/22 07:00 Pulse 94 01/17/22 07:00 Resp 18 01/17/22 07:00 BP 115/65 01/17/22 07:00 Pulse Ox 95 01/17/22 07:00 FiO2 Intake & Output 01/16/22 01/17/22 01/17/22 18:59 06:59 18:59 Intake Total 250 240 Output Total 1050 1450 Balance -800 -1450 240 Weight 94.3 kg Intake: Oral 250 240 Output: Urine 1050 1450 Other: # Voids 1 - Labs CBC & Chem 7: 01/15/22 22:07 01/17/22 08:55 Labs: Abnormal Lab Results - Last 24 Hours (Table) 01/16/22 01/16/22 01/17/22 Range/Units 05:04 20:44 07:33 Chloride (98-107) mmol/L BUN (9-20) mg/dL Creatinine (0.66-1.25) mg/dL Glucose (74-99) mg/dL POC Glucose (mg/dL) 263 H 218 H (70-110) mg/dL TSH 14.000 H (0.350-5.500) uIU/mL 01/17/22 Range/Units 08:55 Chloride 95 L (98-107) mmol/L BUN 45 H (9-20) mg/dL Creatinine 1.55 H (0.66-1.25) mg/dL Glucose 247 H (74-99) mg/dL POC Glucose (mg/dL) (70-110) mg/dL TSH (0.350-5.500) uIU/mL
[2022-01-17 12:18] LABS: Glucose,Whole Blood 353 mg/dL (70-110)
[2022-01-17] MEDS: INSULIN ASPART (NovoLOG) 100 UNIT/ML VIAL SQ SCH ×3 (12:38→21:48)
[2022-01-17] MEDS: COLLAGENASE 250 UNIT/GM OINTMENT 30 GM TUBE TOPICAL SCH (14:48)
[2022-01-17 16:30] VITALS: BMI 29.8
[2022-01-17 17:20] LABS: Glucose,Whole Blood 190 mg/dL (70-110)
[2022-01-17 21:33] LABS: Glucose,Whole Blood 170 mg/dL (70-110)
[2022-01-17] MEDS: ALPRAZolam 0.25 MG TAB PO PRN (22:06)
[2022-01-18] MEDS: ACETAMINOPHEN TAB 325 MG TAB PO PRN ×2 (03:10→09:11)
[2022-01-18 07:20] LABS: Glucose,Whole Blood 199 mg/dL (70-110)
[2022-01-18] MEDS: INSULIN ASPART (NovoLOG) 100 UNIT/ML VIAL SQ SCH (07:28)
[2022-01-18 08:24] VITALS: BP 107/72; PULSE 82; RESP 20; TEMP 97.5
--- NOTE | 2022-01-18 08:57 | P.DS ---
Providers Date of admission: 01/15/22 23:17 Expected date of discharge: 01/18/22 Attending physician: Reuben Spencer MD Consults: 01/15/22 23:17 Consult Physician Routine Consulting Provider: Finn Martino Consult Reason/Comments: CHF Do you want consulting provider notified?: Yes Primary care physician: Mike Escobar [facility] Course: The patient is a 58-year-old male with a PMH of systolic CHF EF 20%, history of left lower extremity DVT on Eliquis, chronic kidney disease who presents to the emergency room with complaints of shortness of breath and lower extremity edema. The patient reports that his symptoms of gradually been worsening over the past 2-3 weeks. He reports that his diuretics were recently updated, although his symptoms continued to worsen. He reports worsening lower extremity edema as well as orthopnea and PND. The patient also reports chronic left lower extremity nonhealing ulcers for which he follows at the wound care clinic. Denied experiencing chest discomfort. He also denied fever, chills, cough, nausea, vomiting. Chest x-ray in the emergency room revealed small pleural effusions with EKG showing an irregular rhythm at 78 bpm. Laboratory evaluation was remarkable for BUN of 46, creatinine 1.63, BNP 22,700, troponin 0.013. Patient was diuresed with Lasix 40 mg IV twice a day. Strict intake and output takes were ordered along with daily weights. Cardiology was consulted and followed the patient during his hospitalization. Patient diuresed well. Wound care consult was placed for left lower extremity wounds. Patient was transitioned to torsemide 40 mg by mouth twice a day. Patient was seen and examined. No acute events overnight. Patient reports improvement in his breathing and lower extremity swelling. General: non toxic, no distress, appears at stated age, obese Derm: Large left lateral lower extremity nonhealing stage III-IV ulcers with minimal discharge Head: atraumatic, normocephalic, symmetric Eyes: EOMI, no lid lag, anicteric sclera ENT: Nose and ears atraumatic Neck: No cervical lymphadenopathy, trachea midline, supple Mouth: no lip lesion, mucus membranes moist Cardiovascular: S1S2 reg, no murmur, positive dorsalis pedis pulse bilateral, 1- 2+ bilateral lower extremity pitting edema Lungs: CTA bilateral, no rhonchi, no rales, no accessory muscle use Ext: muscle strength 5 out of 5 in all 4 extremities grossly, no gross muscle atrophy, no contractures, Neuro: no gross focal neuro deficits Psych: Alert, oriented, appropriate affect Discharge Diagnosis: Acute CHF exacerbation Left lower extremity nonhealing ulcers Chronic kidney disease stage IIIb Normocytic anemia Type II DM history of DVT Hypertension Hyperlipidemia Pertinent Studies: CXR Patient Condition at Discharge: Stable Plan - Discharge Summary Discharge Rx Participant: No New Discharge Prescriptions: New RX: Torsemide [Demadex] 40 mg PO BID@0900,1600 #60 tab Continue RX: Tamsulosin [Flomax] 0.4 mg PO HS #30 cap RX: FLUoxetine HCL [PROzac] 20 mg PO DAILY cap RX: allopurinoL [Zyloprim] 100 mg PO DAILY tab RX: Metoprolol Succinate (ER) [Toprol XL] 50 mg PO DAILY RX: Losartan Potassium [Cozaar] 25 mg PO DAILY RX: Acetaminophen Tab [Tylenol] 650 mg PO Q6H PRN PRN Reason: Pain Or Fever > 100.5 RX: Spironolactone [Aldactone] 12.5 mg PO DAILY #30 tab RX: Apixaban [Eliquis] 5 mg PO BID #60 tab RX: Nitroglycerin Sl Tabs [Nitrostat] 0.4 mg SL Q5M PRN #30 tab PRN Reason: Chest Pain RX: ALPRAZolam [Xanax] 0.25 mg PO BID #6 tab RX: Aspirin 81 mg PO DAILY #90 tab RX: Isosorbide Mononitrate ER [Imdur] 30 mg PO DAILY #30 tab RX: Atorvastatin [Lipitor] 80 mg PO DAILY #30 tab Discontinued RX: Torsemide [Demadex] 40 mg PO DAILY Discharge Medication List RX: Acetaminophen Tab [Tylenol] 650 mg PO Q6H PRN 08/22/21 [History] RX: ALPRAZolam [Xanax] 0.25 mg PO BID #6 tab 12/06/21 [Rx] RX: Apixaban [Eliquis] 5 mg PO BID #60 tab 12/06/21 [Rx] RX: Nitroglycerin Sl Tabs [Nitrostat] 0.4 mg SL Q5M PRN #30 tab 12/06/21 [Rx] RX: Spironolactone [Aldactone] 12.5 mg PO DAILY #30 tab 12/06/21 [Rx] RX: Tamsulosin [Flomax] 0.4 mg PO HS #30 cap 12/06/21 [Rx] RX: Aspirin 81 mg PO DAILY #90 tab 12/15/21 [Rx] RX: Atorvastatin [Lipitor] 80 mg PO DAILY #30 tab 12/15/21 [Rx] RX: FLUoxetine HCL [PROzac] 20 mg PO DAILY cap 12/15/21 [Rx] RX: Isosorbide Mononitrate ER [Imdur] 30 mg PO DAILY #30 tab 12/15/21 [Rx] RX: allopurinoL [Zyloprim] 100 mg PO DAILY tab 12/15/21 [Rx] RX: Losartan Potassium [Cozaar] 25 mg PO DAILY 01/16/22 [History] RX: Metoprolol Succinate (ER) [Toprol XL] 50 mg PO DAILY 01/16/22 [History] RX: Torsemide [Demadex] 40 mg PO BID@0900,1600 #60 tab 01/18/22 [Rx] Follow up Appointment(s)/Referral(s): Mike Escobar MD [Primary Care Provider] - 01/23/22 10:30 am (Appointment is at the [place] office.) Fred Leblanc MD [STAFF PHYSICIAN] - 1 Week ([facility] office will contact you with appointment date and time.) Activity/Diet/Wound Care/Special Instructions: Diet: Cardiac Follow-up with PCP within 1-2 days of discharge. Follow-up with Dr. Riggins within 1 week of discharge. Follow-up with wound care clinic at your next given appointment. Take all medications as advised. Please follow fluid restriction diet. 1500 mL per day. Please follow low-salt diet. Come back to the ED for worsening chest pain, shortness of breath, palpitations or lightheadedness. Discharge Disposition: HOME SELF-CARE
[2022-01-18] MEDS: APIXABAN 5 MG TAB PO SCH (09:09)
[2022-01-18] MEDS: TORSEMIDE 20 MG TAB PO SCH (09:10)
[2022-01-18] MEDS: LOSARTAN 25 MG TAB PO SCH (09:10)
[2022-01-18] MEDS: METOPROLOL SUCCINATE (ER) 50 MG TAB.ER.24H PO SCH (09:10)
[2022-01-18] MEDS: SPIRONOLACTONE 25 MG TAB PO SCH (09:10)
[2022-01-18] MEDS: ISOSORBIDE MONONITRATE ER 30 MG TAB.ER.24H PO SCH (09:10)
[2022-01-18] MEDS: ATORVASTATIN 80 MG TAB PO SCH (09:10)
[2022-01-18] MEDS: ASPIRIN 81 MG PO SCH (09:10)
[2022-01-18] MEDS: ALPRAZolam 0.25 MG TAB PO PRN (09:11)
[2022-01-18 09:23] LABS: African American GFR (CKD) 43.8 (60.0-200.0); Anion Gap 10.2 mmol/L (10.00-18.00); BUN/Creat Ratio 22.44 Ratio (12.00-20.00); Blood Urea Nitrogen 40.4 mg/dL (9.0-27.0); Calcium 9.3 mg/dL (8.7-10.3); Carbon Dioxide 29.8 mmol/L (20.0-27.5); Non-African American GFR(CKD) 37.8 (60.0-200.0); Potassium 4.4 mmol/L (3.5-5.5)
--- NOTE | 2022-01-18 09:59 | P.PN ---
Subjective Progress Note Date: 01/18/22 HISTORY OF PRESENT ILLNESS: This is a 66-year-old male with a past medical history significant for ischemic and nonischemic cardiomyopathy (refusing ICD), frequent alcohol use, lower extremity cellulitis, DVT, hypertension, hyperlipidemia, and diabetes. Patient follows in the office with Dr. Miranda but is in the process of switching to Dr. Leblanc. We have been asked to see the patient in consultation for congestive heart failure. Patient examined at the bedside. Patient presented to the emergency room a chief complaint of shortness of breath. Patient was found to be in acute CHF and was started on IV Lasix. Patient denies any chest pain or pressure. He reports mild improvement in his shortness of breath. Denies dizziness or lightheadedness. Vital signs are stable. * EKG reveals a regular supraventricular rhythm without P waves noted * Chest xray small pleural effusions. There is improvement in pulmonary congestion compared to old exam. * Laboratory data: WBC 7.1. Hemoglobin 11.0. Platelet count 164. Sodium 138. Potassium 4.2. BUN 42. Creatinine 1.7. ProBNP 22,700. Troponin negative 1. * Current home cardiac medications include losartan 25 mg daily, Demadex 40 mg daily, Aldactone 12.5 mg daily, metoprolol succinate 50 mg daily, Imdur 30 mg daily, Lipitor 80 mg daily, aspirin 81 mg daily, and Eliquis 5 mg twice a day * Most recent echocardiogram obtained in December 2021 revealed ejection fraction less than 15%, mild MR, mild TR * Cardiac catheterization history: March 2018 revealing RCA occluded in the midportion with collaterals, 4050 percent stenosis of the LAD, moderate diffuse disease of the circumflex 01/17/2022 Patient examined this morning at the bedside. Patient denies chest pain or pressure. He reports improvement in his shortness of breath. He remains on IV Lasix. Vital signs are stable. 01/18/2022 Patient examined this point the bedside. Patient denies chest pain or pressure. He denies shortness of breath. He is currently up and ambulating in the hallway with physical therapy. Vital signs are stable. PHYSICAL EXAM: VITAL SIGNS: Reviewed. GENERAL: Well-developed in no acute distress. HEENT: Head is normocephalic. Pupils are equal, round. Sclerae anicteric. Mucous membranes of the mouth are moist. Neck supple. No JVD or thyromegaly LUNGS: Respirations even and unlabored. Lungs diminished with bibasilar crackles. HEART: Regular rate and rhythm. S1 and S2 heard. ABDOMEN: Soft. Nondistended. Nontender. EXTREMITIES: Normal range of motion. No clubbing or cyanosis. Peripheral pulses intact. Trace LE edema with chronic discoloration noted. Dressing noted to LLE. NEUROLOGIC: Awake and alert. Oriented x 3. ASSESSMENT: Shortness of breath Acute on chronic congestive heart failure with reduced EF, 15% Ischemic and nonischemic cardiomyopathy, refusing AICD Coronary artery disease Left lower extremity ulcerations History of DVT History of lower extremity cellulitis Hypertension Hyperlipidemia Diabetes Frequent alcohol use PLAN: Continue current cardiac medications Recommend Entresto. However, copay is $47 a month and patient states he can not afford it. Will continue with home dose of Losartan at this time. Recommend abstinence from alcohol Patient is stable for discharge home today from a cardiac standpoint Nurse practitioner note has been reviewed by physician. Signing provider agrees with the documented findings, assessment, and plan of care. Objective - Vital Signs Vital signs: Vital Signs Temp 97.5 F L 01/18/22 07:00 Pulse 82 01/18/22 07:00 Resp 20 01/18/22 07:00 BP 107/72 01/18/22 07:00 Pulse Ox 95 01/18/22 07:00 FiO2 Intake & Output 01/17/22 01/18/22 01/18/22 18:59 06:59 18:59 Intake Total 462 480 Output Total 550 1320 Balance -88 -1320 480 Weight 94.3 kg 93.8 kg Intake: Oral 462 480 Output: Urine 550 1320 Other: Voiding Method Toilet Urinal - Labs CBC & Chem 7: 01/15/22 22:07 01/18/22 04:46 Labs: Abnormal Lab Results - Last 24 Hours (Table) 01/17/22 01/17/22 01/17/22 Range/Units 08:55 12:16 17:19 Chloride 95 L (98-107) mmol/L Carbon Dioxide (20.0-27.5) mmol/L BUN 45 H (9-20) mg/dL Creatinine 1.55 H (0.66-1.25) mg/dL Est GFR (CKD-EPI)AfAm (60.0-200.0) Est GFR (CKD-EPI)NonAf (60.0-200.0) BUN/Creatinine Ratio (12.00-20.00) Ratio Glucose 247 H (74-99) mg/dL POC Glucose (mg/dL) 353 H 190 H (70-110) mg/dL 01/17/22 01/18/22 01/18/22 Range/Units 21:31 04:46 07:18 Chloride (98-107) mmol/L Carbon Dioxide 29.8 H (20.0-27.5) mmol/L BUN 40.4 H (9-20) mg/dL Creatinine 1.8 H (0.66-1.25) mg/dL Est GFR (CKD-EPI)AfAm 43.8 L (60.0-200.0) Est GFR (CKD-EPI)NonAf 37.8 L (60.0-200.0) BUN/Creatinine Ratio 22.44 H (12.00-20.00) Ratio Glucose 198 H (74-99) mg/dL POC Glucose (mg/dL) 170 H 199 H (70-110) mg/dL
[2022-01-18 12:23] LABS: Glucose,Whole Blood 289 mg/dL (70-110)
== END 2022-01-18 12:56 | disposition home or self-care (01) ==
LOC: EC 20:30 → 6NMEDSUR 23:17
PROVIDERS: ADMIT Internal Medicine; ATTEND Internal Medicine
DX: I13.0 Hypertensive heart and chronic kidney disease with heart failure and stage 1 through stage 4 chronic kidney disease, or unspecified chronic kidney disease (principal); I50.23 Acute on chronic systolic (congestive) heart failure; N18.32 Chronic kidney disease, stage 3b; D63.1 Anemia in chronic kidney disease; I25.5 Ischemic cardiomyopathy; I25.10 Atherosclerotic heart disease of native coronary artery without angina pectoris; E78.5 Hyperlipidemia, unspecified; E11.40 Type 2 diabetes mellitus with diabetic neuropathy, unspecified; N40.0 Benign prostatic hyperplasia without lower urinary tract symptoms; E11.22 Type 2 diabetes mellitus with diabetic chronic kidney disease; F32.A Depression, unspecified; F41.9 Anxiety disorder, unspecified; E11.622 Type 2 diabetes mellitus with other skin ulcer; L97.222 Non-pressure chronic ulcer of left calf with fat layer exposed; I25.2 Old myocardial infarction; Z85.828 Personal history of other malignant neoplasm of skin; Z86.718 Personal history of other venous thrombosis and embolism; Z95.5 Presence of coronary angioplasty implant and graft; Z79.01 Long term (current) use of anticoagulants; Z79.82 Long term (current) use of aspirin; Z79.899 Other long term (current) drug therapy; Z88.1 Allergy status to other antibiotic agents; Z82.49 Family history of ischemic heart disease and other diseases of the circulatory system; Z83.3 Family history of diabetes mellitus; Z84.1 Family history of disorders of kidney and ureter
CPT/HCPCS: 96372 ×2; 96376 ×2; 96374; 99285; 36415; 93005 ×2; 97162; 84439; 83880; 80053; 80048 ×3; 84443; 83605; 84484; 85025; 85610; 85730; 71046; G0378 ×4; J1940 ×2

== ENCOUNTER 2022-02-04 20:17 | Emergency (ER) | payer MEDICARE ==
[2022-02-04 20:38] VITALS: BP 119/73; PULSE 82; RESP 24; TEMP 98.1
[2022-02-04 21:07] LABS: Anisocytosis Slight; Basophils # (A) 0.1 k/uL (0-0.2); Basophils % (A) 1 %; Eosinophils # (A) 0.3 k/uL (0-0.7); Eosinophils % (A) 3 %; HCT 34.4 % (39.0-53.0); HGB 10.6 gm/dL (13.0-17.5); Hypochromasia Marked; Lymphocytes # (A) 0.9 k/uL (1.0-4.8); Lymphocytes % (A) 11 %; MCHC 30.7 g/dL (31.0-37.0); MCV 97.9 fL (80.0-100.0); Macrocytosis Slight; Mean Platelet Volume 8.6; Monocytes # (A) 0.4 k/uL (0-1.0); Monocytes % (A) 6 %; Neutrophils % (A) 78 %; Platelet Count 168 k/uL (150-450); RBC 3.52 m/uL (4.30-5.90); RDW 17.7 % (11.5-15.5); WBC 7.7 k/uL (3.8-10.6)
[2022-02-04 21:12] LABS: Albumin 4.3 g/dL (3.5-5.0); Calcium 9.3 mg/dL (8.4-10.2); Potassium 4.6 mmol/L (3.5-5.1); Total Bilirubin 0.8 mg/dL (0.2-1.3); Total Protein 7.2 g/dL (6.3-8.2)
--- NOTE | 2022-02-04 22:02 | XR ---
EXAMINATION TYPE: XR KUB DATE OF EXAM: 02/04/2022 COMPARISON: NONE HISTORY: Abdominal pain TECHNIQUE: 3 views Upright FINDINGS: There is no sign of intestinal obstruction or pneumoperitoneum. Fecal pattern is normal. No evidence of a mass. No pathologic calcifications over the kidneys. IMPRESSION: Nonacute abdomen.
== END 2022-02-05 00:22 | disposition left against medical advice (07) ==
LOC: EC 20:17
DX: Z53.21 Procedure and treatment not carried out due to patient leaving prior to being seen by health care provider (principal)
CPT/HCPCS: 36415; 74018; 80053; 82150; 83690; 84484; 85025; 93005; 99499

== ENCOUNTER 2022-02-07 08:35 | Observation (INO) | payer MEDICARE ==
[2022-02-07] MEDS ORDERED: MORPHINE SULFATE 4 MG/ML SYRINGE IV STA (09:07)
[2022-02-07 09:32] LABS: Anisocytosis Slight; Basophils % (A) 1 %; Eosinophils # (A) 0.2 k/uL (0-0.7); Eosinophils % (A) 3 %; Hypochromasia Marked; Lymphocytes # (A) 0.7 k/uL (1.0-4.8); Lymphocytes % (A) 10 %; MCH 30.2 pg (25.0-35.0); MCHC 31.3 g/dL (31.0-37.0); MCV 96.6 fL (80.0-100.0); Macrocytosis Slight; Mean Platelet Volume 8.6; Monocytes # (A) 0.5 k/uL (0-1.0); Monocytes % (A) 6 %; Neutrophils # (A) 5.7 k/uL (1.3-7.7); Neutrophils % (A) 79 %; Platelet Count 133 k/uL (150-450); RBC 3.31 m/uL (4.30-5.90); RDW 17.7 % (11.5-15.5); WBC 7.3 k/uL (3.8-10.6)
[2022-02-07 09:41] LABS: INR 1.6 (<1.2); Partial Thromboplastin Time 35.9 sec (22.0-30.0)
--- NOTE | 2022-02-07 09:50 | XR ---
EXAMINATION TYPE: XR chest 2V DATE OF EXAM: 02/07/2022 COMPARISON: 01/15/2022 TECHNIQUE: PA and lateral views submitted. HISTORY: Chest pain FINDINGS: The lungs are clear and there is no pneumothorax, pleural effusion, or focal pneumonia. Hypertrophi c and degenerative changes spine. Heart enlarged. Interstitium is stable. Arthropathy of the shoulder s. No pneumothorax. IMPRESSION: 1. No acute process. Severe cardiomegaly stable.
[2022-02-07 09:51] LABS: Albumin 4.2 g/dL (3.5-5.0); Calcium 9.1 mg/dL (8.4-10.2); Magnesium 1.8 mg/dL (1.6-2.3); Potassium 4.3 mmol/L (3.5-5.1); Total Bilirubin 0.7 mg/dL (0.2-1.3)
--- NOTE | 2022-02-07 09:54 | ED ---
General Adult HPI - General Chief complaint: Chest Pain Stated complaint: chest & back pain Time Seen by Provider: 02/07/22 08:48 Source: patient, RN notes reviewed, old records reviewed Mode of arrival: wheelchair Limitations: no limitations - History of Present Illness Initial comments: Patient is a 66-year-old male with significant cardiac history who presents emergency Department complaining of being woken up from severe back and chest pain. Has history of CK D, dm as well. Is on Eliquis. Describes the pain as a sharp, stabbing sensation that went from his mid back through towards his chest. Went to both shoulders as well. States it is mostly resolved at this time. Denies any shortness of breath. Denies nausea, vomiting. Denies light headedness or blurry vision. Denies any weakness in the extremities. Denies any fevers, chills, cough. States the pain is resolved at this time. Resolved earlier today. Wanted to be evaluated due to his cardiac history. Denies any worsening lower extremity edema. Currently is being worked up and treated for cellulitis on his left lower extremity. No antibiotics. Sees wound care weekly. Denies any fevers. Has no other acute complaints at this time. Presents for further evaluation. - Related Data Home Medications Medication Instructions Recorded Confirmed Acetaminophen Tab [Tylenol] 650 mg PO Q6H PRN 08/22/21 02/07/22 Losartan Potassium [Cozaar] 25 mg PO DAILY 01/16/22 02/07/22 Metoprolol Succinate (ER) [Toprol 50 mg PO DAILY 01/16/22 02/07/22 XL] Collagenase [Santyl Ointment] 1 applic TOPICAL DAILY 02/07/22 02/07/22 Ferrous Sulfate [Feosol] 325 mg PO DAILY 02/07/22 02/07/22 Sacubitril/Valsartan [Entresto 24 1 tab PO BID 02/07/22 02/07/22 mg-26 mg Tablet] Previous Rx's Medication Instructions Recorded ALPRAZolam [Xanax] 0.25 mg PO BID #6 tab 12/06/21 Apixaban [Eliquis] 5 mg PO BID #60 tab 12/06/21 Nitroglycerin Sl Tabs [Nitrostat] 0.4 mg SL Q5M PRN #30 tab 12/06/21 Spironolactone [Aldactone] 12.5 mg PO DAILY #30 tab 12/06/21 Tamsulosin [Flomax] 0.4 mg PO HS #30 cap 12/06/21 Aspirin 81 mg PO DAILY #90 tab 12/15/21 Atorvastatin [Lipitor] 80 mg PO DAILY #30 tab 12/15/21 FLUoxetine HCL [PROzac] 20 mg PO DAILY cap 12/15/21 Isosorbide Mononitrate ER [Imdur] 30 mg PO DAILY #30 tab 12/15/21 allopurinoL [Zyloprim] 100 mg PO DAILY tab 12/15/21 Torsemide [Demadex] 40 mg PO BID@0900,1600 #60 tab 01/18/22 Allergies Allergy/AdvReac Type Severity Reaction Status Date / Time ciprofloxacin [From Cipro] Allergy Rash/Hives Verified 02/07/22 11:17 Review of Systems ROS Statement: Those systems with pertinent positive or pertinent negative responses have been documented in the HPI. Review of Systems: CONST: Denies fever EYES: Denies blurry vision ENT: Denies nasal congestion C/V: Denies Chest pain RESP: Denies shortness of breath GI: Denies abdominal pain : Denies dysuria SKIN: Denies rash. MSK: Denies joint pain. NEURO: Denies headache ROS Other: All systems not noted in ROS Statement are negative. Past Medical History Past Medical History: Coronary Artery Disease (CAD), Cancer, Heart Failure, Diabetes Mellitus, Deep Vein Thrombosis (DVT), Hyperlipidemia, Hypertension, Liver Disease, Myocardial Infarction ([place]), Prostate Disorder, Renal Disease, Skin Disorder Additional Past Medical History / Comment(s): Ischemic cardiomyopathy, chronic CHF, 10/26/21 DVT L lower extremity, IDDM type II, neuropathy bilaterl legs/feet, L leg wounds, BPH, CKD stage III, hyperuricemia, hepatic steatosis, choledocholithiasis, eczema as child. Last Myocardial Infarction Date:: 02/12/2019 History of Any Multi-Drug Resistant Organisms: None Reported Past Surgical History: Heart Catheterization, Heart Catheterization With Stent, Orthopedic Surgery Additional Past Surgical History / Comment(s): skin cancer removed from nose August 2020 Past Anesthesia/Blood Transfusion Reactions: No Reported Reaction Date of Last Stent Placement:: 2012 Past Psychological History: Anxiety, Depression Smoking Status: Never smoker Past Alcohol Use History: Occasional Past Drug Use History: None Reported - Past Family History Mother Family Medical History: Coronary Artery Disease (CAD), Diabetes Mellitus, Myocardial Infarction ([place]) Father Family Medical History: Diabetes Mellitus, Renal Disease family Additional Family Medical History / Comment(s): Mother with history of diabetes mellitus and CAD, father with history of heart disease and diabetes General Exam - General Exam Comments Initial Comments: General: Appears in no acute distress. HEAD: Normal with no signs of head trauma. EYES: PERRLA, EOMI, conjunctiva normal, no discharge. ENT: Hearing grossly intact, normal oropharynx. RESPIRATORY: Clear breath sounds bilaterally. No wheezes, rales, or rhonchi. C/V: Regular rate and rhythm. S1 and S2 auscultated, no edema, peripheral pulses 2+ and intact throughout ABD: Abd is soft, nontender, nondistended EXT: Left lower extremity swelling. Dressing in place. SKIN: No rashes or lesions observed on exposed skin. NEURO: Alert and oriented x 4. Cranial nerves II-XII intact. No focal sensory or strength deficits. Limitations: no limitations Course Vital Signs 02/07/22 02/07/22 02/07/22 08:39 09:31 10:00 Temperature 97.8 F Pulse Rate 80 67 62 Respiratory 16 16 Rate Blood Pressure 124/70 109/65 109/65 O2 Sat by Pulse 98 95 Oximetry 02/07/22 11:00 Temperature Pulse Rate 59 L Respiratory Rate Blood Pressure 116/72 O2 Sat by Pulse Oximetry Medical Decision Making - Medical Decision Making Based on the patient's presentation and physical exam, I'm concerned for acute cardiopulmonary etiology for his current symptoms. Due to his story of being awoken with sleep with chest pain radiating from his back towards his chest I am concerned for possible aortic injury. This includes dissection. Recommend a obtain CT angiogram of the aorta. Patient was in agreement this plan. Cardiac work up also be obtained. He'll be given morphine for analgesia. We will hold aspirin at this time until we evaluate for dissection. Vital signs within n ormal limits. He is currently asymptomatic at this time. He was in agreement with this plan. Symptom onset was at 2:30 AM this morning. EKG shows no signs of acute ischemia.Chest x-ray shows no acute cardiopulmonary process. Laboratory studies are remarkable for a chronic normocytic anemia with hemoglobin of 10.0. This is stable. Coags are mildly elevated in setting of anticoagulation use. Patient has an elevated BUN/creatinine which. Baseline for his CK D. Troponin is undetectable. BNP is elevated to 10,000, however clinically does not appear to be having an acute heart failure exacerbation. No hypoxia. No chest x-ray findings to suggest this, no worsening symptoms. CT was obtained to evaluate for dissection, and was negative for aortic aneurysm and dissection. There is a small right pleural effusion. There is ascites. There is cholelithiasis. There is also mild noted in the pretracheal space. I discussed the findings with the patient. Patient remains asymptomatic at this time. He will be given a 324mg aspirin. Patient's heart score is moderate. I did recommend admission observation for further monitoring. Particularly due to receiving contrast the setting of CK D. He will be given a small fluid bolus but otherwise we will avoid IV fluids at this time due to his history of heart failure. He was in agreement this plan. I spoke with Dr. Howell of [facility] of the admitting team who accepted the patient. Patient was admitted in stable condition observation telemetry. - Lab Data Result diagrams: 02/07/22 09:22 02/07/22 09:22 Lab Results 02/07/22 02/07/22 02/07/22 Range/Units 09:22 09:22 09:22 WBC 7.3 (3.8-10.6) k/uL RBC 3.31 L (4.30-5.90) m/uL Hgb 10.0 L (13.0-17.5) gm/dL Hct 32.0 L (39.0-53.0) % MCV 96.6 (80.0-100.0) fL MCH 30.2 (25.0-35.0) pg MCHC 31.3 (31.0-37.0) g/dL RDW 17.7 H (11.5-15.5) % Plt Count 133 L (150-450) k/uL MPV 8.6 Neutrophils % 79 % Lymphocytes % 10 % Monocytes % 6 % Eosinophils % 3 % Basophils % 1 % Neutrophils # 5.7 (1.3-7.7) k/uL Lymphocytes # 0.7 L (1.0-4.8) k/uL Monocytes # 0.5 (0-1.0) k/uL Eosinophils # 0.2 (0-0.7) k/uL Basophils # 0.0 (0-0.2) k/uL Hypochromasia Marked Anisocytosis Slight Macrocytosis Slight PT 16.0 H (9.0-12.0) sec INR 1.6 H (<1.2) APTT 35.9 H (22.0-30.0) sec Sodium 139 (137-145) mmol/L Potassium 4.3 (3.5-5.1) mmol/L Chloride 101 (98-107) mmol/L Carbon Dioxide 20 L (22-30) mmol/L Anion Gap 18 mmol/L BUN 66 H (9-20) mg/dL Creatinine 2.04 H (0.66-1.25) mg/dL Est GFR (CKD-EPI)AfAm 38 (>60 ml/min/1.73 sqM) Est GFR (CKD-EPI)NonAf 33 (>60 ml/min/1.73 sqM) Glucose 215 H (74-99) mg/dL Calcium 9.1 (8.4-10.2) mg/dL Magnesium 1.8 (1.6-2.3) mg/dL Total Bilirubin 0.7 (0.2-1.3) mg/dL AST 24 (17-59) U/L ALT 15 (4-49) U/L Alkaline Phosphatase 69 (38-126) U/L Troponin I (0.000-0.034) ng/mL NT-Pro-B Natriuret Pep pg/mL Total Protein 7.0 (6.3-8.2) g/dL Albumin 4.2 (3.5-5.0) g/dL 02/07/22 02/07/22 Range/Units 09:22 09:22 WBC (3.8-10.6) k/uL RBC (4.30-5.90) m/uL Hgb (13.0-17.5) gm/dL Hct (39.0-53.0) % MCV (80.0-100.0) fL MCH (25.0-35.0) pg MCHC (31.0-37.0) g/dL RDW (11.5-15.5) % Plt Count (150-450) k/uL MPV Neutrophils % % Lymphocytes % % Monocytes % % Eosinophils % % Basophils % % Neutrophils # (1.3-7.7) k/uL Lymphocytes # (1.0-4.8) k/uL Monocytes # (0-1.0) k/uL Eosinophils # (0-0.7) k/uL Basophils # (0-0.2) k/uL Hypochromasia Anisocytosis Macrocytosis PT (9.0-12.0) sec INR (<1.2) APTT (22.0-30.0) sec Sodium (137-145) mmol/L Potassium (3.5-5.1) mmol/L Chloride (98-107) mmol/L Carbon Dioxide (22-30) mmol/L Anion Gap mmol/L BUN (9-20) mg/dL Creatinine (0.66-1.25) mg/dL Est GFR (CKD-EPI)AfAm (>60 ml/min/1.73 sqM) Est GFR (CKD-EPI)NonAf (>60 ml/min/1.73 sqM) Glucose (74-99) mg/dL Calcium (8.4-10.2) mg/dL Magnesium (1.6-2.3) mg/dL Total Bilirubin (0.2-1.3) mg/dL AST (17-59) U/L ALT (4-49) U/L Alkaline Phosphatase (38-126) U/L Troponin I <0.012 (0.000-0.034) ng/mL NT-Pro-B Natriuret Pep 07085 pg/mL Total Protein (6.3-8.2) g/dL Albumin (3.5-5.0) g/dL - EKG Data -: EKG Interpreted by Me EKG Comments: 12-lead Electrocardiogram Interpretation Note EKG was reviewed and interpreted by myself. 12-lead ECG performed at 0854 is interpreted by me as revealing atrial fibrillation at a rate of 76 beats per minute. [place] is normal. QRS duration is 170 ms, QTc is 475 ms.. There were no ST or T wave abnormalities to suggest myocardial ischemia or injury. R wave progression across the precordium was satisfactory. By my interpretation this EKG is non-diagnostic for acute ischemia. No significant change when compared to EKG from 02/04/2022 Disposition Clinical Impression: Atypical chest pain, Back pain, CKD (chronic kidney disease) Disposition: ADMITTED IP TO THIS HOSP Condition: Stable Time of Disposition: 11:00
[2022-02-07] MEDS ORDERED: SODIUM CHLORIDE 0.9% 500 ML 500 ML IV STA (10:23)
--- NOTE | 2022-02-07 10:28 | CT ---
EXAMINATION TYPE: CT angio thor/abd pel aorta DATE OF EXAM: 02/07/2022 COMPARISON: None HISTORY: Chest pains that radiate into back CT DLP: 2110.1 mGycm Automated exposure control for dose reduction was used. Contrast: 100 mL [id number] Technique: Axial images 5 mm thick sections. Pre and postcontrast imaging was performed. Three-D aly nstructed images are reviewed on the computer. FINDINGS: Thoracic and abdominal aorta: No aneurysmal dilatation is evident. Mild vascular calcification is pre sent. There is a 3 vessel arch. No thoracic or abdominal aortic dissection is evident. Celiac axis an d superior mesenteric arteries are normal. Some plaquing is present at the origins of the renal arter ies. Inferior vena cava is patent. Abdominal aortic Vascular calcification is present. Aortic bifurca tion appears normal. Common, internal, and external iliac vessels are patent. Vascular calcifications within the external vessels. Common femoral arteries have vascular calcification. Coronary artery calcification is present. Cardiomegaly is present. There are multiple scattered small lymph nodes within the mediastinum. There is a 1.0 cm mediastinal lymph node in pretracheal space. Minimal right pleural effusion is present. Ascites is present. Small amount of fluid is adjacent to the liver and spleen. Fluid is within the pa racolic gutters. There is fluid in the pelvis. Cholelithiasis is present. Adrenal glands are normal. Liver and spleen have a normal density without discrete masses or cysts. Spleen is minimally promin ent at 13 cm. The adrenal glands appear normal. Pancreas is normal. Inferior vena cava is unremarkabl e. Loops of bowel without oral contrast. Normal. No suspicious dilated loops of bowel are evident. The a ppendix is not identified. No suspicious inflammatory changes are evident. Urinary bladder has thicke paz wall. Prostate appears within normal limits. IMPRESSION: 1. NO ANEURYSMAL DILATATION OR DISSECTION OF THE THORACIC OR ABDOMINAL AORTA. 2. SMALL RIGHT PLEURAL EFFUSION. 3. ASCITES. 4. CHOLELITHIASIS. 5. THERE IS A 1.0 CM LYMPH NODE IN THE PRETRACHEAL SPACE UPPER PORTION WITH SCATTERED SMALL ADDITIONA L LYMPH NODES WITHIN THE MEDIASTINUM.
[2022-02-07] MEDS ORDERED: NALOXONE 0.4 MG/ML 1 ML VIAL IV PRN (11:26)
[2022-02-07] MEDS ORDERED: KETOROLAC 15 MG/ML 1 ML VIAL IVP PRN (11:26)
[2022-02-07] MEDS ORDERED: ASPIRIN 81 MG PO STA (11:27)
--- NOTE | 2022-02-07 12:23 | P.HPIM ---
History of Present Illness H&P Date: 02/07/22 History of Presenting Illness: Patient is a very pleasant 66-year-old male with a past medical history of CAD with previous NE and stents, chronic systolic heart failure, ischemic cardiomyopathy with previously known EF of < 15%, hypertension, hyperlipidemia, left lower extremity DVT on anticoagulation with Eliquis, chronic kidney disease stage IV, iron deficiency anemia, left lower extremity wound/ ulcerations currently under treatment with wound care clinic secondary to delayed healing. Patient presented to the emergency department with a chief complaint of back pain radiating into his chest and up into his right shoulder. Patient reports his pain was sudden onset occurring while he was at rest accompanied by a sharp stabbing sensation radiating through his chest and into his right shoulder. Patient denied experiencing any headache, lightheadedness, dizziness, changes in vision or hearing, dictations, shortness of breath, abdominal pain, nausea, vomiting, or experiencing any numbness/weakness in his extremities. Patient reports he has due for dressing changes to left lower extremity as he follows with wound care secondary to poorly healing wounds/ulcers. Patient underwent full evaluation in the emergency department. Initial troponin negative at less than 0.012. ProBNP elevated at 10,100 however this is improved from previous labs on 01/15/22 with proBNP of 22,700. CBC consistent with chronic iron deficiency anemia with hemoglobin of 10 which is at baseline levels. CMP consistent with patient's stage IV CKD with BUN of 66, creatinine 2.04, and GFR of 33. EKG was completed revealing a junctional rhythm at 76 bpm. Chest x-ray negative for acute cardiopulmonary process revealing severe cardiomegaly unchanged from previous exam. CTA chest/abdomen/pelvis was completed to rule out dissection and was negative showing no aneurysm all dilation or dissection, small right pleural effusion, ascites, and a 1 cm lymph node in the pretracheal space with scattered small additional lymph nodes within the mediastinum. Patient was admitted under our services with consult cardiology and wound care. Review of systems: Pertinent positives and negatives as discussed in HPI, a complete review of systems was performed and all other systems are negative. Physical exam: Vital signs reviewed and stable. General: Nontoxic, no distress and appears stated age. Derm: Skin warm and dry, normal coloration for ethnicity. Head: Atraumatic, normocephalic and symmetric. Eyes: EOMs intact, no lid lag, and anicteric sclera Mouth: no lip lesions, mucus membranes moist Cardiovascular: regular rate and rhythm with normal S1S2, systolic murmur, positive posterior tibial pulses bilaterally, and cap refill < 2 seconds. Lungs: Respirations even, regular, and unlabored on room air. Lungs CTA bilaterally, no rhonchi, no rales, no wheezing, and no accessory muscle usage. Abdominal: soft, nontender to palpation, no guarding, no appreciable organomeg leanne Ext: ROM intact. No gross muscle atrophy, edema left lower extremity with chronic wounds/ulcerations, dressing currently in place and unable to inspect as supplies for dressing change not available in the emergency department. Neuro: Speech clear, face symmetrical and CN II-XII grossly intact with no noted focal neuro deficits. Psych: Alert and oriented to person, place, time, and situation. Appropriate and pleasant affect. Assessment and Plan of Care: Chest pain, rule out acute coronary event History of CAD with previous NE and stents Chronic systolic heart failure Ischemic cardiomyopathy with previously known EF of less than 15% Hypertension Hyperlipidemia -Cardiology consulted, appreciate further recommendations -Telemetry monitoring -Trend troponins -Pro-BNP 10,100 -Cardiac diet -Daily weight -Monitoring of intake and output -Continue cardiac medication regimen with aspirin, Eliquis, atorvastatin, isosorbide mononitrate, losartan, metoprolol, Aldactone, and torsemide. Chronic kidney disease stage IV, stable -Patient with chronic kidney disease received contrast for CT as it was imperative to rule out dissection. Patient was given a small bolus of IV fluid and we will continue to monitor renal function closely with repeat a.m. labs. Chronic iron deficiency anemia -Continue ferrous sulfate 325 mg daily. History of left lower extremity DVT -Continue anticoagulant with Eliquis. Left lower extremity poorly healing wounds/ulcerations with PAD -Consult wound care The patient is admitted with an anticipated less than 2 midnight stay for evaluation of chest pain CODE STATUS: Full code DVT prophylaxis: Eliquis Discussed with: Pt and RN Anticipated discharge date: 1-[address]: Home with home care vs palliative care to assist with management of multiple comorbidities A total of 49 minutes was spent on the care of this complex patient more than 50% of the time was spent in counseling and care coordination. Rod Nevarez NP rendered care for this patient independently, reviewed the findings and plan as documented in the note above. I did not physically speak with or examine the patient on this date. Past Medical History Past Medical History: Coronary Artery Disease (CAD), Cancer, Heart Failure, Diabetes Mellitus, Deep Vein Thrombosis (DVT), Hyperlipidemia, Hypertension, Liver Disease, Myocardial Infarction (NE), Prostate Disorder, Renal Disease, Skin Disorder Additional Past Medical History / Comment(s): Ischemic cardiomyopathy, chronic CHF, 10/26/21 DVT L lower extremity, IDDM type II, neuropathy bilaterl legs/feet, L leg wounds, BPH, CKD stage III, hyperuricemia, hepatic steatosis, choledocholithiasis, eczema as child. Last Myocardial Infarction Date:: 02/12/2019 History of Any Multi-Drug Resistant Organisms: None Reported Past Surgical History: Heart Catheterization, Heart Catheterization With Stent, Orthopedic Surgery Additional Past Surgical History / Comment(s): skin cancer removed from nose August 2020 Past Anesthesia/Blood Transfusion Reactions: No Reported Reaction Date of Last Stent Placement:: 2012 Past Psychological History: Anxiety, Depression Smoking Status: Never smoker Past Alcohol Use History: Occasional Past Drug Use History: None Reported - Past Family History Mother Family Medical History: Coronary Artery Disease (CAD), Diabetes Mellitus, Myocardial Infarction (NE) Father Family Medical History: Diabetes Mellitus, Renal Disease family Additional Family Medical History / Comment(s): Mother with history of diabetes mellitus and CAD, father with history of heart disease and diabetes Medications and Allergies Home Medications Medication Instructions Recorded Confirmed Type Acetaminophen Tab [Tylenol] 650 mg PO Q6H PRN 08/22/21 02/07/22 History ALPRAZolam [Xanax] 0.25 mg PO BID #6 tab 12/06/21 02/07/22 Rx Apixaban [Eliquis] 5 mg PO BID #60 tab 12/06/21 02/07/22 Rx Nitroglycerin Sl Tabs [Nitrostat] 0.4 mg SL Q5M PRN #30 tab 12/06/21 02/07/22 Rx Spironolactone [Aldactone] 12.5 mg PO DAILY #30 tab 12/06/21 02/07/22 Rx Tamsulosin [Flomax] 0.4 mg PO HS #30 cap 12/06/21 02/07/22 Rx Aspirin 81 mg PO DAILY #90 tab 12/15/21 02/07/22 Rx Atorvastatin [Lipitor] 80 mg PO DAILY #30 tab 12/15/21 02/07/22 Rx FLUoxetine HCL [PROzac] 20 mg PO DAILY cap 12/15/21 02/07/22 Rx Isosorbide Mononitrate ER [Imdur] 30 mg PO DAILY #30 tab 12/15/21 02/07/22 Rx allopurinoL [Zyloprim] 100 mg PO DAILY tab 12/15/21 02/07/22 Rx Losartan Potassium [Cozaar] 25 mg PO DAILY 01/16/22 02/07/22 History Metoprolol Succinate (ER) [Toprol 50 mg PO DAILY 01/16/22 02/07/22 History XL] Torsemide [Demadex] 40 mg PO BID@0900,1600 #60 tab 01/18/22 02/07/22 Rx Collagenase [Santyl Ointment] 1 applic TOPICAL DAILY 02/07/22 02/07/22 History Ferrous Sulfate [Feosol] 325 mg PO DAILY 02/07/22 02/07/22 History Sacubitril/Valsartan [Entresto 24 1 tab PO BID 02/07/22 02/07/22 History mg-26 mg Tablet] Allergies Allergy/AdvReac Type Severity Reaction Status Date / Time ciprofloxacin [From Cipro] Allergy Rash/Hives Verified 02/07/22 11:17 Physical Exam Osteopathic Statement: *. No significant issues noted on an osteopathic structural exam other than those noted in the History and Physical/Consult. Vitals: Vital Signs Temp Pulse Resp BP Pulse Ox 02/07/22 11:00 59 L 116/72 02/07/22 10:00 62 109/65 02/07/22 09:31 67 16 109/65 95 02/07/22 08:39 97.8 F 80 16 124/70 98 Intake and Output 02/06/22 02/07/22 02/07/22 22:59 06:59 14:59 Other: Weight 90.718 kg Results CBC & Chem 7: 02/07/22 09:22 02/07/22 09:22 Labs: Abnormal Lab Results - Last 24 Hours (Table) 02/07/22 02/07/22 02/07/22 Range/Units 09: 09:22 09:22 RBC 3.31 L (4.30-5.90) m/uL Hgb 10.0 L (13.0-17.5) gm/dL Hct 32.0 L (39.0-53.0) % RDW 17.7 H (11.5-15.5) % Plt Count 133 L (150-450) k/uL Lymphocytes # 0.7 L (1.0-4.8) k/uL PT 16.0 H (9.0-12.0) sec INR 1.6 H (<1.2) APTT 35.9 H (22.0-30.0) sec Carbon Dioxide 20 L (22-30) mmol/L BUN 66 H (9-20) mg/dL Creatinine 2.04 H (0.66-1.25) mg/dL Glucose 215 H (74-99) mg/dL
--- NOTE | 2022-02-07 14:03 | P.CRDCN ---
History of Present Illness History of present illness: This is a 66-year-old male with a past medical history significant for ischemic and nonischemic cardiomyopathy (refusing ICD), coronary artery disease, frequent alcohol use, lower extremity cellulitis, DVT, hypertension, hyperlipidemia, chronic kidney disease, and diabetes. Patient follows in the office with Dr. Leblanc. We have been asked to see the patient in consultation for chest pain. Patient presented to the emergency room a chief complaint of lower back pain with radiation to his midsternal chest and right shoulder. He had some associated shortness of breath. He states he has been having this pain for about 1 week, and it has progressively being worsening. He describes the pain as sharp. It is not associated with activity or movement. It is intermittent comes and goes. Cannot describe any specific aggravating factors. He had some relief with Tylenol at home. He was given IV morphine 4mg in the ER with improvement in his pain. He is currently pain free. He denies any palpitations, nausea, vomiting, lightheadedness, dizziness, syncope or near syncope Denies any symptoms of orthopnea or PND. DIAGNOSTICS * EKG reveals sinus rhythm HR 76, PACs noted. * Chest xray no acute process. Severe cardiomegaly, stable * Thoracic aorta CTA reported no aneurysmal dilatation or dissection. Small right pleural effusion. Ascites, cholelithiasis. * Laboratory data: WBC 7.3, hemoglobin 10, platelets 133, INR 1.6, sodium 139, potassium 4.3, BUN 66, serum crit 2.04, magnesium 1.8, troponin negative 2, proBNP 10,100 * Current home cardiac medications include Entresto 24-26mg BID, Torsemide 40mg BID, Metoprolol succinate 50mg daily, losartan 25mg daily , Imdur 30 mg daily, atorvastatin 80 mg daily, aspirin 80 mg daily, Eliquis 5 mg twice a day. * Lexiscan stress test 08/23/2021 revealed no evidence of pharmacologically- induced left ventricular reversible ischemia. * Most recent echocardiogram obtained in 12/14/2021 revealed ejection fraction less than 15%, mild MR, mild TR * Cardiac catheterization history: March 2019 revealing RCA occluded in the midportion with collaterals, 4050 percent stenosis of the LAD, moderate diffuse disease of the circumflex REVIEW OF SYSTEMS: At the time of my exam: CONSTITUTIONAL: Denies fever or chills. HEENT: Denies blurred vision, vision changes, or eye pain. Denies hemoptysis CARDIOVASCULAR: Denies chest pain. Denies orthopnea. Denies PND. Denies palpitations RESPIRATORY: Denies shortness of breath. GASTROINTESTINAL: Denies abdominal pain. Denies nausea or vomiting. HEMATOLOGIC: Denies bleeding disorders. GENITOURINARY: Denies any blood in urine. SKIN: Denies pruitis. Denies rash. PHYSICAL EXAM: VITAL SIGNS: Reviewed. GENERAL: Well-developed in no acute distress. HEENT: Head is normocephalic. Pupils are equal, round. Sclerae anicteric. Mucous membranes of the mouth are moist. Neck supple. LUNGS: Respirations even and unlabored. Lungs diminished with mild crackles in the left lower lobe HEART: Regular rate and rhythm. S1 and S2 heard. ABDOMEN: Soft. Nondistended. Nontender. EXTREMITIES: Normal range of motion. No clubbing or cyanosis. Peripheral pulses intact. Trace LE edema with chronic discoloration noted. Dressing noted to LLE. NEUROLOGIC: Awake and alert. Oriented x 3. ASSESSMENT: Lower back pain, chest pain and right shoulder pain Acute on chronic kidney disease Chronic congestive heart failure with reduced EF, 15% Ischemic and nonischemic cardiomyopathy, with prior refusal of AICD Coronary artery disease Left lower extremity ulcerations History of DVT on Eliquis History of lower extremity cellulitis Hypertension Hyperlipidemia Diabetes, type 2 Frequent alcohol use PLAN: Acute coronary syndrome has been ruled out Continue home cardiac medications Recommended Entresto, however, copay recent admission was $47 a month and patient states he can not afford it, and was taking Losartan at home. Further recommendations pending patient course Nurse practitioner note has been reviewed by physician. Signing provider agrees with the documented findings, assessment, and plan of care. Past Medical History Past Medical History: Coronary Artery Disease (CAD), Cancer, Heart Failure, Diabetes Mellitus, Deep Vein Thrombosis (DVT), Hyperlipidemia, Hypertension, Liver Disease, Myocardial Infarction (SD), Prostate Disorder, Renal Disease, Skin Disorder Additional Past Medical History / Comment(s): Ischemic cardiomyopathy, chronic CHF, 10/26/21 DVT L lower extremity, IDDM type II, neuropathy bilaterl legs/feet, L leg wounds, BPH, CKD stage III, hyperuricemia, hepatic steatosis, choledocholithiasis, eczema as child. Last Myocardial Infarction Date:: 02/12/2019 History of Any Multi-Drug Resistant Organisms: None Reported Past Surgical History: Heart Catheterization, Heart Catheterization With Stent, Orthopedic Surgery Additional Past Surgical History / Comment(s): skin cancer removed from nose August 2020 Past Anesthesia/Blood Transfusion Reactions: No Reported Reaction Date of Last Stent Placement:: 2012 Past Psychological History: Anxiety, Depression Smoking Status: Never smoker Past Alcohol Use History: Occasional Past Drug Use History: None Reported - Past Family History Mother Family Medical History: Coronary Artery Disease (CAD), Diabetes Mellitus, Myocardial Infarction (SD) Father Family Medical History: Diabetes Mellitus, Renal Disease family Additional Family Medical History / Comment(s): Mother with history of diabetes mellitus and CAD, father with history of heart disease and diabetes Medications and Allergies Home Medications Medication Instructions Recorded Confirmed Type Acetaminophen Tab [Tylenol] 650 mg PO Q6H PRN 08/22/21 02/07/22 History ALPRAZolam [Xanax] 0.25 mg PO BID #6 tab 12/06/21 02/07/22 Rx Apixaban [Eliquis] 5 mg PO BID #60 tab 12/06/21 02/07/22 Rx Nitroglycerin Sl Tabs [Nitrostat] 0.4 mg SL Q5M PRN #30 tab 12/06/21 02/07/22 Rx Spironolactone [Aldactone] 12.5 mg PO DAILY #30 tab 12/06/21 02/07/22 Rx Tamsulosin [Flomax] 0.4 mg PO HS #30 cap 12/06/21 02/07/22 Rx Aspirin 81 mg PO DAILY #90 tab 12/15/21 02/07/22 Rx Atorvastatin [Lipitor] 80 mg PO DAILY #30 tab 12/15/21 02/07/22 Rx FLUoxetine HCL [PROzac] 20 mg PO DAILY cap 12/15/21 02/07/22 Rx Isosorbide Mononitrate ER [Imdur] 30 mg PO DAILY #30 tab 12/15/21 02/07/22 Rx allopurinoL [Zyloprim] 100 mg PO DAILY tab 12/15/21 02/07/22 Rx Losartan Potassium [Cozaar] 25 mg PO DAILY 01/16/22 02/07/22 History Metoprolol Succinate (ER) [Toprol 50 mg PO DAILY 01/16/22 02/07/22 History XL] Torsemide [Demadex] 40 mg PO BID@0900,1600 #60 tab 01/18/22 02/07/22 Rx Collagenase [Santyl Ointment] 1 applic TOPICAL DAILY 02/07/22 02/07/22 History Ferrous Sulfate [Feosol] 325 mg PO DAILY 02/07/22 02/07/22 History Sacubitril/Valsartan [Entresto 24 1 tab PO BID 02/07/22 02/07/22 History mg-26 mg Tablet] Allergies Allergy/AdvReac Type Severity Reaction Status Date / Time ciprofloxacin [From Cipro] Allergy Rash/Hives Verified 02/07/22 11:17 Physical Exam Vitals: Vital Signs Temp Pulse Resp BP Pulse Ox 02/07/22 11:00 59 L 116/72 02/07/22 10:00 62 109/65 02/07/22 09:31 67 16 109/65 95 02/07/22 08:39 97.8 F 80 16 124/70 98 Intake and Output 02/06/22 02/07/22 02/07/22 22:59 06:59 14:59 Other: Weight 90.718 kg Results 02/07/22 09:22 02/07/22 09:22 Cardiac Enzymes 02/07/22 02/07/22 Range/Units 09:22 09: AST 24 (17-59) U/L Troponin I <0.012 (0.000-0.034) ng/mL Coagulation 02/07/22 Range/Units 09: PT 16.0 H (9.0-12.0) sec APTT 35.9 H (22.0-30.0) sec CBC 02/07/22 Range/Units 09: WBC 7.3 (3.8-10.6) k/uL RBC 3.31 L (4.30-5.90) m/uL Hgb 10.0 L (13.0-17.5) gm/dL Hct 32.0 L (39.0-53.0) % Plt Count 133 L (150-450) k/uL Comprehensive Metabolic Panel 02/07/22 Range/Units 09:22 Sodium 139 (137-145) mmol/L Potassium 4.3 (3.5-5.1) mmol/L Chloride 101 (98-107) mmol/L Carbon Dioxide 20 L (22-30) mmol/L BUN 66 H (9-20) mg/dL Creatinine 2.04 H (0.66-1.25) mg/dL Glucose 215 H (74-99) mg/dL Calcium 9.1 (8.4-10.2) mg/dL AST 24 (17-59) U/L ALT 15 (4-49) U/L Alkaline Phosphatase 69 (38-126) U/L Total Protein 7.0 (6.3-8.2) g/dL Albumin 4.2 (3.5-5.0) g/dL Current Medications Generic Name Dose Route Start Last Admin Trade Name Freq PRN Reason Stop Dose Admin Acetaminophen 650 mg 02/07/22 12:25 Acetaminophen Tab 325 Mg Tab PO Q6H PRN Pain or Fever > 100.5 Allopurinol 100 mg 02/08/22 09:00 Allopurinol 100 Mg Tab PO DAILY [facility] Alprazolam 0.25 mg 02/07/22 21:00 Alprazolam 0.25 Mg Tab PO BID [facility] Apixaban 5 mg 02/07/22 21:00 Apixaban 5 Mg Tab PO BID [facility] Protocol Aspirin 81 mg 02/08/22 09:00 Aspirin 81 Mg PO DAILY [facility] Atorvastatin Calcium 80 mg 02/08/22 09:00 Atorvastatin 80 Mg Tab PO DAILY [facility] Collagenase 1 applic 02/08/22 09:00 Collagenase 250 Unit/Gm Ointment 30 Gm Tube TOPICAL DAILY [facility] Protocol Ferrous Sulfate 325 mg 02/08/22 09:00 Ferrous Sulfate 325 Mg Tab PO DAILY [facility] Fluoxetine HCl 20 mg 02/08/22 09:00 Fluoxetine Hcl 20 Mg Cap PO DAILY [facility] Isosorbide Mononitrate 30 mg 02/08/22 09:00 Isosorbide Mononitrate Er 30 Mg Tab.Er.24h PO DAILY [facility] Losartan Potassium 25 mg 02/08/22 09:00 Losartan 25 Mg Tab PO DAILY [facility] Metoprolol Succinate 50 mg 02/08/22 09:00 Metoprolol Succinate (Er) 50 Mg Tab.Er.24h PO DAILY [facility] Naloxone HCl 0.2 mg 02/07/22 11:26 Naloxone 0.4 Mg/Ml 1 Ml Vial IV Q2M PRN Opioid Reversal Sacubitril/Valsartan 1 each 02/07/22 21:00 Sacubitril/Valsartan 24 Mg-26 Mg Tablet PO BID [facility] Spironolactone 12.5 mg 02/08/22 09:00 Spironolactone 25 Mg Tab PO DAILY [facility] Tamsulosin HCl 0.4 mg 02/07/22 21:00 Tamsulosin 0.4 Mg Cap.Er.24h PO HS [facility] Torsemide 40 mg 02/07/22 16:00 Torsemide 20 Mg Tab PO BID@0900,1600 [facility] Intake and Output 02/06/22 02/07/22 02/07/22 22:59 06:59 14:59 Other: Weight 90.718 kg Patient Weight 02/08/22 06:59 Weight 90.718 kg 02/07/22 09:22 02/07/22 09:22
[2022-02-07] MEDS: TORSEMIDE 20 MG TAB PO SCH (17:03)
[2022-02-07 17:31] LABS: Glucose,Whole Blood 211 mg/dL (70-110)
[2022-02-07] MEDS: INSULIN ASPART (NovoLOG) 100 UNIT/ML VIAL SQ SCH ×2 (18:09→20:21)
[2022-02-07 20:11] LABS: Glucose,Whole Blood 238 mg/dL (70-110)
[2022-02-07] MEDS: ALPRAZolam 0.25 MG TAB PO SCH (20:22)
[2022-02-07] MEDS: ACETAMINOPHEN TAB 325 MG TAB PO PRN (20:22)
[2022-02-07] MEDS: APIXABAN 5 MG TAB PO SCH (20:22)
[2022-02-07] MEDS ORDERED: SACUBITRIL/VALSARTAN 24 MG-26 MG TABLET PO SCH (21:00)
[2022-02-07] MEDS ORDERED: TAMSULOSIN 0.4 MG CAP.ER.24H PO SCH (21:00)
[2022-02-08] MEDS: ACETAMINOPHEN TAB 325 MG TAB PO PRN ×2 (05:26→11:26)
[2022-02-08 07:41] LABS: Glucose,Whole Blood 152 mg/dL (70-110)
[2022-02-08] MEDS: APIXABAN 5 MG TAB PO SCH (08:56)
[2022-02-08] MEDS: ALPRAZolam 0.25 MG TAB PO SCH (08:56)
[2022-02-08] MEDS: INSULIN ASPART (NovoLOG) 100 UNIT/ML VIAL SQ SCH ×2 (08:57→12:48)
[2022-02-08] MEDS: TORSEMIDE 20 MG TAB PO SCH (08:57)
[2022-02-08] MEDS ORDERED: FERROUS SULFATE 325 MG TAB PO SCH (09:00)
[2022-02-08] MEDS ORDERED: SPIRONOLACTONE 25 MG TAB PO SCH (09:00)
[2022-02-08] MEDS ORDERED: METOPROLOL SUCCINATE (ER) 50 MG TAB.ER.24H PO SCH (09:00)
[2022-02-08] MEDS ORDERED: ATORVASTATIN 80 MG TAB PO SCH (09:00)
[2022-02-08] MEDS ORDERED: allopurinoL 100 MG TAB PO SCH (09:00)
[2022-02-08] MEDS ORDERED: FLUoxetine HCL 20 MG CAP PO SCH (09:00)
[2022-02-08] MEDS ORDERED: LOSARTAN 25 MG TAB PO SCH ×2 (09:00)
[2022-02-08] MEDS ORDERED: ISOSORBIDE MONONITRATE ER 30 MG TAB.ER.24H PO SCH (09:00)
[2022-02-08] MEDS ORDERED: ASPIRIN 81 MG PO SCH (09:00)
[2022-02-08] MEDS ORDERED: COLLAGENASE 250 UNIT/GM OINTMENT 30 GM TUBE TOPICAL SCH ×2 (09:00→11:15)
[2022-02-08 09:02] LABS: Basophils # (A) 0.06 X 10*3/uL (0.00-0.10); Eosinophils # (A) 0.21 X 10*3/uL (0.04-0.35); Eosinophils % (A) 3.4 %; HCT 30.3 % (39.6-50.0); HGB 9.4 g/dL (13.0-17.0); Immature Grans, Automated 0.7 %; Lymphocytes # (A) 0.64 X 10*3/uL (0.90-5.00); Lymphocytes % (A) 10.5 %; MCH 29.8 pg (27.0-32.0); MCV 96.2 fL (80.0-97.0); Mean Platelet Volume 11.3 fL (9.5-12.2); Monocytes # (A) 0.59 X 10*3/uL (0.20-1.00); Monocytes % (A) 9.7 %; NRBC Per 100 WBC 0 /100 WBCS (0.0-0.0); Neutrophils # (A) 4.57 X 10*3/uL (1.80-7.70); Neutrophils % (A) 74.7 %; Platelet Count 143 X 10*3/uL (140-440); RBC 3.15 X 10*6/uL (4.40-5.60); RDW 18.6 % (11.5-14.5); WBC 6.11 X 10*3/uL (4.50-10.00)
[2022-02-08 09:04] LABS: African American GFR (CKD) 28.1 (60.0-200.0); Anion Gap 12.1 mmol/L (10.00-18.00); BUN/Creat Ratio 25.23 Ratio (12.00-20.00); Blood Urea Nitrogen 65.6 mg/dL (9.0-27.0); Carbon Dioxide 22.9 mmol/L (20.0-27.5); Magnesium 1.9 mg/dL (1.5-2.4); Non-African American GFR(CKD) 24.3 (60.0-200.0); Potassium 4.9 mmol/L (3.5-5.5)
[2022-02-08 09:30] VITALS: RESP 18
--- NOTE | 2022-02-08 10:21 | P.PN ---
Subjective This is a 66-year-old male with a past medical history significant for ischemic and nonischemic cardiomyopathy (refusing ICD), coronary artery disease, frequent alcohol use, lower extremity cellulitis, DVT, hypertension, hyperlipidemia, chronic kidney disease, and diabetes. Patient follows in the office with Dr. Leblanc. We have been asked to see the patient in consultation for chest pain. Patient presented to the emergency room a chief complaint of lower back pain with radiation to his midsternal chest and right shoulder. He had some associate d shortness of breath. He states he has been having this pain for about 1 week, and it has progressively being worsening. He describes the pain as sharp. It is not associated with activity or movement. It is intermittent comes and goes. Cannot describe any specific aggravating factors. He had some relief with Tylenol at home. He was given IV morphine 4mg in the ER with improvement in his pain. He is currently pain free. He denies any palpitations, nausea, vomiting, lightheadedness, dizziness, syncope or near syncope Denies any symptoms of orthopnea or PND. DIAGNOSTICS * Lexiscan stress test 08/23/2021 revealed no evidence of pharmacologically- induced left ventricular reversible ischemia. * Most recent echocardiogram obtained in 12/14/2021 revealed ejection fraction less than 15%, mild MR, mild TR * Cardiac catheterization history: March 2019 revealing RCA occluded in the midportion with collaterals, 4050 percent stenosis of the LAD, moderate diffuse disease of the circumflex 02/08 Patient seen and examined at bedside, no distress. Patient denies any further chest pain. He does have some mild shortness of breath which she states is chronic. He is concerned of his left lower extremity wound and dressing changes. Acute coronary syndrome has ruled out, no changes on EKG and cardiac enzymes were negative 3. Labs, sodium 137, potassium 4.9, BUN 65, sCr 2.6, magnesium 1.9 PHYSICAL EXAM: VITAL SIGNS: Reviewed. GENERAL: Well-developed in no acute distress. HEENT: Head is normocephalic. Neck supple. LUNGS: Respirations even and unlabored. Lungs diminished with mild crackles in the left lower lobe HEART: Regular rate and rhythm. S1 and S2 heard. ABDOMEN: Soft. Nondistended. Nontender. EXTREMITIES: Normal range of motion. No clubbing or cyanosis. Peripheral pulses intact. Trace LE edema with chronic discoloration noted. Dressing noted to LLE. NEUROLOGIC: Awake and alert. Oriented x 3. ASSESSMENT: Lower back pain, chest pain and right shoulder pain, Acute coronary syndrome has been ruled out Acute on chronic kidney disease Chronic congestive heart failure with reduced EF, 15% Ischemic and nonischemic cardiomyopathy, with prior refusal of AICD Coronary artery disease Left lower extremity ulcerations History of DVT on Eliquis History of lower extremity cellulitis Hypertension Hyperlipidemia Diabetes, type 2 Frequent alcohol use PLAN: Acute coronary syndrome has been ruled out Continue home cardiac medications Recommended Entresto, however, copay recent admission was $47 a month and patient states he can not afford it, and was taking Losartan at home. From a cardiology perspective, no further inpatient workup is indicated at this time. Follow up outpatient with Dr. Babcock Nurse practitioner note has been reviewed by physician. Signing provider agrees with the documented findings, assessment, and plan of care. Objective - Vital Signs Vital signs: Vital Signs Temp 97.8 F 02/08/22 07:40 Pulse 80 02/08/22 07:40 Resp 18 02/08/22 07:40 BP 117/80 02/08/22 07:40 Pulse Ox 92 L 02/08/22 07:40 FiO2 Intake & Output 02/07/22 02/08/22 02/08/22 18:59 06:59 18:59 Intake Total 118 240 Balance 118 240 Weight 90.718 kg 101 kg Intake: Oral 118 240 Other: Voiding Method Toilet Toilet - Labs CBC & Chem 7: 02/08/22 05:19 02/08/22 05:19 Labs: Abnormal Lab Results - Last 24 Hours (Table) 02/07/22 02/07/22 02/08/22 Range/Units 17:30 20:09 05:19 RBC 3.15 L (4.40-5.60) X 10*6/uL Hgb 9.4 L (13.0-17.0) g/dL Hct 30.3 L (39.6-50.0) % MCHC 31.0 L (32.0-37.0) g/dL RDW 18.6 H (11.5-14.5) % Lymphocytes # 0.64 L (0.90-5.00) X 10*3/uL BUN (9.0-27.0) mg/dL Creatinine (0.6-1.5) mg/dL Est GFR (CKD-EPI)AfAm (60.0-200.0) Est GFR (CKD-EPI)NonAf (60.0-200.0) BUN/Creatinine Ratio (12.00-20.00) Ratio Glucose (70-110) mg/dL POC Glucose (mg/dL) 211 H 238 H (70-110) mg/dL 02/08/22 02/08/22 Range/Units 05:19 07:40 RBC (4.40-5.60) X 10*6/uL Hgb (13.0-17.0) g/dL Hct (39.6-50.0) % MCHC (32.0-37.0) g/dL RDW (11.5-14.5) % Lymphocytes # (0.90-5.00) X 10*3/uL BUN 65.6 H (9.0-27.0) mg/dL Creatinine 2.6 H (0.6-1.5) mg/dL Est GFR (CKD-EPI)AfAm 28.1 L (60.0-200.0) Est GFR (CKD-EPI)NonAf 24.3 L (60.0-200.0) BUN/Creatinine Ratio 25.23 H (12.00-20.00) Ratio Glucose 133 H (70-110) mg/dL POC Glucose (mg/dL) 152 H (70-110) mg/dL
--- NOTE | 2022-02-08 11:34 | P.CONS ---
History of Present Illness - Reason for Consult Consult date: 02/08/22 wound care - History of Present Illness This is a 66-year-old gentleman known to the wound care center for nonhealing ulcerations to the left lower extremity. Patient has a left medial ulceration measures approximately 2.1 x 2.5 x 0.2 cm with Slough and fat layer exposure with minimal granulation, the left lateral lower extremity has an ulceration at 17.9 x 15.2 x 0.3 cm was significant Slough and minimal granulation fat layer exposure, left lateral ankle measuring approximately 1.8 x 2.2 x 0.3 cm with Slough and fat layer exposure and a lower extremity ulceration medial aspect measuring 6.6 x 5.0 x 0.7 cm with Slough and minimal granulation. Fat layer exposed. Patient's currently using Santyl. We will continue with Santyl at this time. Review Of Systems: Constitutional: No fever, no chills, no night sweats. No weight change. No weakness, fatigue or lethargy. No daytime sleepiness. Integumentary:reports wounds, no lesions. No rash or pruritus. No unusual bruising. No change in hair or nails. Physical exam: General Appearance: Alert, cooperative, no distress, appears stated age. Skin: See HPI all other Skin color, texture, tugor normal, no rashes or lesions. Neurologic: Alert oriented x3 Assessment: 1. There is sclerosis of [place] arteries of left leg with ulceration of ankle 2. Also sclerosis of [place] arteries of left leg with ulceration of calf 3. 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 Diabetes with skin ulcer Plan: 1. Apply Santyl, feeling was gauze, dry gauze, rolled gauze and secured with paper tape. Wrap with John wrap. Change daily. 2. Patient's next wound care appointment is February 14 at 2:30 Thank you for the consultation any questions please contact the wound care center DNP note has been reviewed and discussed with Dr. Song and the impression and plan of care has been directed as dictated. Past Medical History Past Medical History: Coronary Artery Disease (CAD), Cancer, Heart Failure, Diabetes Mellitus, Deep Vein Thrombosis (DVT), Hyperlipidemia, Hypertension, Liver Disease, Myocardial Infarction (CA), Prostate Disorder, Renal Disease, Skin Disorder Additional Past Medical History / Comment(s): Ischemic cardiomyopathy, chronic CHF, 10/26/21 DVT L lower extremity, IDDM type II, neuropathy bilaterl legs/feet, L leg wounds, BPH, CKD stage III, hyperuricemia, hepatic steatosis, choledocholithiasis, eczema as child. Last Myocardial Infarction Date:: 02/12/2019 History of Any Multi-Drug Resistant Organisms: None Reported Past Surgical History: Heart Catheterization, Heart Catheterization With Stent, Orthopedic Surgery Additional Past Surgical History / Comment(s): skin cancer removed from nose August 2020 Past Anesthesia/Blood Transfusion Reactions: No Reported Reaction Date of Last Stent Placement:: 2012 Past Psychological History: Anxiety, Depression Smoking Status: Never smoker Past Alcohol Use History: Occasional Past Drug Use History: None Reported - Past Family History Mother Family Medical History: Coronary Artery Disease (CAD), Diabetes Mellitus, Myocardial Infarction (CA) Father Family Medical History: Diabetes Mellitus, Renal Disease family Additional Family Medical History / Comment(s): Mother with history of diabetes mellitus and CAD, father with history of heart disease and diabetes Medications and Allergies Home Medications Medication Instructions Recorded Confirmed Type Acetaminophen Tab [Tylenol] 650 mg PO Q6H PRN 08/22/21 02/07/22 History ALPRAZolam [Xanax] 0.25 mg PO BID #6 tab 12/06/21 02/07/22 Rx Apixaban [Eliquis] 5 mg PO BID #60 tab 12/06/21 02/07/22 Rx Nitroglycerin Sl Tabs [Nitrostat] 0.4 mg SL Q5M PRN #30 tab 12/06/21 02/07/22 Rx Spironolactone [Aldactone] 12.5 mg PO DAILY #30 tab 12/06/21 02/07/22 Rx Tamsulosin [Flomax] 0.4 mg PO HS #30 cap 12/06/21 02/07/22 Rx Aspirin 81 mg PO DAILY #90 tab 12/15/21 02/07/22 Rx Atorvastatin [Lipitor] 80 mg PO DAILY #30 tab 12/15/21 02/07/22 Rx FLUoxetine HCL [PROzac] 20 mg PO DAILY cap 12/15/21 02/07/22 Rx Isosorbide Mononitrate ER [Imdur] 30 mg PO DAILY #30 tab 12/15/21 02/07/22 Rx allopurinoL [Zyloprim] 100 mg PO DAILY tab 12/15/21 02/07/22 Rx Losartan Potassium [Cozaar] 25 mg PO DAILY 01/16/22 02/07/22 History Metoprolol Succinate (ER) [Toprol 50 mg PO DAILY 01/16/22 02/07/22 History XL] Torsemide [Demadex] 40 mg PO BID@0900,1600 #60 tab 01/18/22 02/07/22 Rx Collagenase [Santyl Ointment] 1 applic TOPICAL DAILY 02/07/22 02/07/22 History Ferrous Sulfate [Feosol] 325 mg PO DAILY 02/07/22 02/07/22 History Sacubitril/Valsartan [Entresto 24 1 tab PO BID 02/07/22 02/07/22 History mg-26 mg Tablet] Allergies Allergy/AdvReac Type Severity Reaction Status Date / Time ciprofloxacin [From Cipro] Allergy Rash/Hives Verified 02/07/22 11:17 Physical Exam Vitals: Vital Signs Temp Pulse Pulse Resp BP BP Pulse Ox 02/08/22 07:40 97.8 F 80 18 117/80 92 L 02/08/22 02:51 97.5 F L 81 16 121/79 93 L 02/07/22 20:11 97.4 F L 79 17 127/80 95 02/07/22 15:00 97.5 F L 74 18 126/82 97 02/07/22 13:00 58 L 16 108/71 96 02/07/22 12:00 59 L 15 115/83 96 Intake and Output 02/07/22 02/08/22 02/08/22 22:59 06:59 14:59 Intake Total 118 240 Balance 118 240 Intake: Oral 118 240 Other: Voiding Method Toilet Toilet Weight 90.718 kg 101 kg Results CBC & Chem 7: 02/08/22 05:19 02/08/22 05:19 Labs: Abnormal Lab Results - Last 24 Hours (Table) 02/07/22 02/07/22 02/08/22 Range/Units 17:30 20:09 05:19 RBC 3.15 L (4.40-5.60) X 10*6/uL Hgb 9.4 L (13.0-17.0) g/dL Hct 30.3 L (39.6-50.0) % MCHC 31.0 L (32.0-37.0) g/dL RDW 18.6 H (11.5-14.5) % Lymphocytes # 0.64 L (0.90-5.00) X 10*3/uL BUN (9.0-27.0) mg/dL Creatinine (0.6-1.5) mg/dL Est GFR (CKD-EPI)AfAm (60.0-200.0) Est GFR (CKD-EPI)NonAf (60.0-200.0) BUN/Creatinine Ratio (12.00-20.00) Ratio Glucose (70-110) mg/dL POC Glucose (mg/dL) 211 H 238 H (70-110) mg/dL 02/08/22 02/08/22 Range/Units 05:19 07:40 RBC (4.40-5.60) X 10*6/uL Hgb (13.0-17.0) g/dL Hct (39.6-50.0) % MCHC (32.0-37.0) g/dL RDW (11.5-14.5) % Lymphocytes # (0.90-5.00) X 10*3/uL BUN 65.6 H (9.0-27.0) mg/dL Creatinine 2.6 H (0.6-1.5) mg/dL Est GFR (CKD-EPI)AfAm 28.1 L (60.0-200.0) Est GFR (CKD-EPI)NonAf 24.3 L (60.0-200.0) BUN/Creatinine Ratio 25.23 H (12.00-20.00) Ratio Glucose 133 H (70-110) mg/dL POC Glucose (mg/dL) 152 H (70-110) mg/dL Assessment and Plan (1) Atherosclerosis of [place] arteries of left leg with ulceration of ankle Current Visit: No Status: Acute Code(s): I70.243 - ATHSCL MENOMINEE ARTERIES OF LEFT LEG W ULCERATION OF ANKLE SNOMED Code(s): 635691370 (2) Atherosclerosis of [place] arteries of left leg with ulceration of calf Current Visit: No Status: Acute Code(s): I70.242 - ATHSCL M[place]OMINEE ARTERIES OF LEFT LEG W ULCERATION OF CALF SNOMED Code(s): 677914259 (3) Diabetes with skin ulcer Current Visit: No Status: Acute Code(s): E11.622 - TYPE 2 DIABETES MELLITUS WITH OTHER SKIN ULCER; L98.499 - NON-PRESSURE CHRONIC ULCER OF SKIN OF SITES W UNSP SEVERITY SNOMED Code(s): 66818676 (4) Non-pressure chronic ulcer of left ankle with fat layer exposed Current Visit: No Status: Acute Code(s): L97.322 - NON-PRESSURE CHRONIC ULCER OF LEFT ANKLE W FAT LAYER EXPOSED SNOMED Code(s): 35941588524104886 (5) Non-pressure chronic ulcer of left calf with fat layer exposed Current Visit: No Status: Acute Code(s): L97.222 - NON-PRESSURE CHRONIC ULCER OF LEFT CALF W FAT LAYER EXPOSED SNOMED Code(s): 89222799984401314
[2022-02-08 12:22] LABS: Glucose,Whole Blood 239 mg/dL (70-110)
--- NOTE | 2022-02-08 15:08 | P.DS ---
Providers Date of admission: 02/07/22 11:26 Expected date of discharge: 02/08/22 Attending physician: Antionette Howell DO Consults: 02/07/22 12:24 Consult Physician Routine Consulting Provider: Jarod Miranda Consult Reason/Comments: chest pain hx of ischemic cardiomyopathy EF < 15% Do you want consulting provider notified?: Yes 02/07/22 13:48 Consult to Palliative Care Routine Consulting Provider: Tran Jung Consult Reason/Comments: assistance with management of multiple comorbidities Do you want consulting provider notified?: Yes Primary care physician: Mike Escobar Hospital Course: Discharge Diagnosis: Chest pain, acute coronary event ruled out. History of CAD with previous [place] and stents Chronic systolic heart failure Ischemic cardiomyopathy with previously known EF of less than 15% Hypertension Hyperlipidemia Chronic kidney disease stage IV, stable Chronic iron deficiency anemia History of left lower extremity DVT Left lower extremity poorly healing wounds/ulcerations with PAD Hospital Course: Patient is a very pleasant 66-year-old male with a past medical history of CAD with previous [place] and stents, chronic systolic heart failure, ischemic cardiomyopathy with previously known EF of < 15%, hypertension, hyperlipidemia, left lower extremity DVT on anticoagulation with Eliquis, chronic kidney disease stage IV, iron deficiency anemia, left lower extremity wound/ ulcerations currently under treatment with wound care clinic secondary to delayed healing. Patient presented to the emergency department with a chief complaint of back pain radiating into his chest and up into his right shoulder. Patient reports his pain was sudden onset occurring while he was at rest accompanied by a sharp stabbing sensation radiating through his chest and into his right shoulder. Patient denied experiencing any headache, lightheadedness, dizziness, changes in vision or hearing, dictations, shortness of breath, abdominal pain, nausea, vomiting, or experiencing any numbness/weakness in his extremities. Patient reports he has due for dressing changes to left lower extremity as he follows with wound care secondary to poorly healing wounds/ulcers. Patient underwent full evaluation in the emergency department. Initial troponin negative at less than 0.012. ProBNP elevated at 10,100 however this is improved from previous labs on 01/15/22 with proBNP of 22,700. CBC consistent with chronic iron deficiency anemia with hemoglobin of 10 which is at baseline levels. CMP consistent with patient's stage IV CKD with BUN of 66, creatinine 2.04, and GFR of 33. EKG was completed revealing a junctional rhythm at 76 bpm. Chest x-ray negative for acute cardiopulmonary process revealing severe cardiomegaly unchanged from previous exam. CTA chest/abdomen/pelvis was completed to rule out dissection and was negative showing no aneurysm all dilation or dissection, small right pleural effusion, ascites, and a 1 cm lymph node in the pretracheal space with scattered small additional lymph nodes within the mediastinum. Patient was admitted under our services with consult to cardiology and wound care. He was monitored overnight and troponins were trended all resulting negative at less than 0.0123 draws. He was seen and evaluated by wound care and dressings to left lower extremity were changed.cardiology ruled out an acute coronary event and recommending patient to continue with home cardiac medication regimen. From cardiology perspective, patient may follow-up outpatient in the office in 1 week. Renal function did elevate with creatinine increasing from 2.04-2.6after administration of CT contrast. Patient adamant on discharge at this time. Patient may follow up outpatient with his disability hearing officer, Dr. Landry and have repeat BMP completed in 3 days. Also had long discussion with patient regarding palliative care and assistance with management of multiple comorbidities. Patient was hesitant but agreed upon palliative care consult. Patient being discharged home with home care and palliative care at this time. Again patient to follow-up outpatient in 3 days for a repeat BMP and follow-up outpatient in the office with his PCP, community case manager, and disability hearing officer. Physical exam: Vital signs reviewed and stable. General: Nontoxic, no distress and appears stated age. Derm: Skin warm and dry, normal coloration for ethnicity. Head: Atraumatic, normocephalic and symmetric. Eyes: EOMs intact, no lid lag, and anicteric sclera Mouth: no lip lesions, mucus membranes moist Cardiovascular: regular rate and rhythm with normal S1S2, systolic murmur, positive posterior tibial pulses bilaterally, and cap refill < 2 seconds. Lungs: Respirations even, regular, and unlabored on room air. Lungs CTA bilaterally, no rhonchi, no rales, no wheezing, and no accessory muscle usage. Abdominal: soft, nontender to palpation, no guarding, no appreciable organomegaly Ext: ROM intact. No gross muscle atrophy, edema left lower extremity with chronic wounds/ulcerations, dressing currently in place and unable to inspect as supplies for dressing change not available in the emergency department. Neuro: Speech clear, face symmetrical and CN II-XII grossly intact with no noted focal neuro deficits. Psych: Alert and oriented to person, place, time, and situation. Appropriate and pleasant affect. A total of 39 minutes of time were spent preparing this complex discharge summary. Pt was discharged on 02/08/22 at 2:58 PM. I reviewed the documentation as provided by the BREANNA above, who is the original author of this note. I agree with the documented assessment and plan, with the following changes: none Patient Condition at Discharge: Stable Plan - Discharge Summary Discharge Rx Participant: No New Discharge Prescriptions: Continue Tamsulosin [Flomax] 0.4 mg PO HS #30 cap FLUoxetine HCL [PROzac] 20 mg PO DAILY cap allopurinoL [Zyloprim] 100 mg PO DAILY tab Metoprolol Succinate (ER) [Toprol XL] 50 mg PO DAILY Losartan Potassium [Cozaar] 25 mg PO DAILY Collagenase [Santyl Ointment] 1 applic TOPICAL DAILY Acetaminophen Tab [Tylenol] 650 mg PO Q6H PRN PRN Reason: Pain Or Fever > 100.5 Spironolactone [Aldactone] 12.5 mg PO DAILY #30 tab Apixaban [Eliquis] 5 mg PO BID #60 tab Nitroglycerin Sl Tabs [Nitrostat] 0.4 mg SL Q5M PRN #30 tab PRN Reason: Chest Pain ALPRAZolam [Xanax] 0.25 mg PO BID #6 tab Aspirin 81 mg PO DAILY #90 tab Isosorbide Mononitrate ER [Imdur] 30 mg PO DAILY #30 tab Atorvastatin [Lipitor] 80 mg PO DAILY #30 tab Torsemide [Demadex] 40 mg PO BID@0900,1600 #60 tab Ferrous Sulfate [Iron (65 MG Elemental)] 325 mg PO DAILY No Action Sacubitril/Valsartan [Entresto 24 mg-26 mg Tablet] 1 tab PO BID Discharge Medication List Acetaminophen Tab [Tylenol] 650 mg PO Q6H PRN 08/22/21 [History] ALPRAZolam [Xanax] 0.25 mg PO BID #6 tab 12/06/21 [Rx] Apixaban [Eliquis] 5 mg PO BID #60 tab 12/06/21 [Rx] Nitroglycerin Sl Tabs [Nitrostat] 0.4 mg SL Q5M PRN #30 tab 12/06/21 [Rx] Spironolactone [Aldactone] 12.5 mg PO DAILY #30 tab 12/06/21 [Rx] Tamsulosin [Flomax] 0.4 mg PO HS #30 cap 12/06/21 [Rx] Aspirin 81 mg PO DAILY #90 tab 12/15/21 [Rx] Atorvastatin [Lipitor] 80 mg PO DAILY #30 tab 12/15/21 [Rx] FLUoxetine HCL [PROzac] 20 mg PO DAILY cap 12/15/21 [Rx] Isosorbide Mononitrate ER [Imdur] 30 mg PO DAILY #30 tab 12/15/21 [Rx] allopurinoL [Zyloprim] 100 mg PO DAILY tab 12/15/21 [Rx] Losartan Potassium [Cozaar] 25 mg PO DAILY 01/16/22 [History] Metoprolol Succinate (ER) [Toprol XL] 50 mg PO DAILY 01/16/22 [History] Torsemide [Demadex] 40 mg PO BID@0900,1600 #60 tab 01/18/22 [Rx] Collagenase [Santyl Ointment] 1 applic TOPICAL DAILY 02/07/22 [History] Ferrous Sulfate [Iron (65 MG Elemental)] 325 mg PO DAILY 02/07/22 [History] Sacubitril/Valsartan [Entresto 24 mg-26 mg Tablet] 1 tab PO BID 02/07/22 [History] Follow up Appointment(s)/Referral(s): Alysa Landry MD [STAFF PHYSICIAN] - 1 Week (follow up with your disability hearing officer Dr. Landry in one week) Jarod Miranda MD [STAFF PHYSICIAN] - 02/14/22 1:15 pm ([facility] beck in [facility]) [facility], [NON-STAFF] - 1 Week Mike Escobar MD [Primary Care Provider] - 1-2 days Ambulatory/Diagnostic Orders: Basic Metabolic Panel [LAB.AMB] Time Frame: 3 Days, Location: None Selected Basic Metabolic Panel [LAB.AMB] Time Frame: 3 Days, Location: None Selected Patient Instructions/Handouts: Heart Failure (DC), Chest Pain (DC) Activity/Diet/Wound Care/Special Instructions: Activity: As tolerated. Take breaks as needed. Diet: Heart healthy and carb consistent diet. Avoid salts, or foods with hidden salts such as canned or boxed foods and frozen dinners. Extra salt makes your heart work harder and traps the fluid in your body for longer. Special Instructions: Weigh yourself every morning after you urinate. If you gain 3 pounds overnight or more than 5 pounds in one week, call your primary physician and community case manager for guidance on your medications or they may want to see you in their office. Keep a daily log of your weights and be sure to bring with you at follow up visits with your PCP and community case manager. Take all of your medications as directed, especially your water pills. NEVER skip a dose. And remember to keep all of your doctor's appointments and follow- up as needed. Elevate your legs when you are not up moving around to help with circulation and prevent swelling. Compression stockings are also a great way to improve lower extremity circulation and prevent/improve lower extremity edema. Call your primary care provider and community case manager if you notice any extra swelling in your legs, ankles, feet or abdomen, if you have a new dry cough, if your shortness of breath worsens with activity or at rest, or if you feel more fatigued. Thank you for allowing us to participate in your care, it was truly a pleasure having you for our patient!!! Discharge/Stand Alone Forms: Who Do I Call?, Help In The Home Discharge Disposition: HOME WITH HOME HEALTH SERVICES
[2022-02-08 15:11] VITALS: BP 117/54; PULSE 77; TEMP 97.5
--- NOTE | 2022-02-09 07:59 | P.CONS ---
History of Present Illness - Reason for Consult Consult date: 02/08/22 Manaement of multiple comorbidities Requesting physician: Rod Nevarez - Chief Complaint Chest/back pain - History of Present Illness Patient is a very pleasant 66-year-old male with a past medical history of CAD with previous DE and stents, chronic systolic heart failure, ischemic cardiomyopathy with previously known EF of < 15%, hypertension, hyperlipidemia, left lower extremity DVT on anticoagulation with Eliquis, chronic kidney disease stage IV, iron deficiency anemia, left lower extremity wound/ ulcerations currently under treatment with wound care clinic secondary to delayed healing. Patient presented to the emergency department on 02/07/22 with a chief complaint of back pain radiating into his chest and up into his right shoulder. Patient reports his pain was sudden onset occurring while he was at rest accompanied by a sharp stabbing sensation radiating through his chest and into his right shoulder. Patient denied experiencing any headache, lightheaded ness, dizziness, changes in vision or hearing, dictations, shortness of breath, abdominal pain, nausea, vomiting, or experiencing any numbness/weakness in his extremities. Patient reports he has due for dressing changes to left lower extremity as he follows with wound care secondary to poorly healing wounds/ulcers. Patient underwent full evaluation in the emergency department. Initial troponin negative at less than 0.012. ProBNP elevated at 10,100 however this is improved from previous labs on 01/15/22 with proBNP of 22,700. CBC consistent with chronic iron deficiency anemia with hemoglobin of 10 which is at baseline levels. CMP consistent with patient's stage IV CKD with BUN of 66, creatinine 2.04, and GFR of 33. EKG was completed revealing a junctional rhythm at 76 bpm. Chest x-ray negative for acute cardiopulmonary process revealing severe cardiomegaly unchanged from previous exam. CTA chest/abdomen/pelvis was completed to rule out dissection and was negative showing no aneurysm all dilation or dissection, small right pleural effusion, ascites, and a 1 cm lymph node in the pretracheal space with scattered small additional lymph nodes within the mediastinum. Patient was admitted under our services with consult cardiology and wound care. Review of Systems Constitutional: Reports as per HPI Past Medical History Past Medical History: Coronary Artery Disease (CAD), Cancer, Heart Failure, Diabetes Mellitus, Deep Vein Thrombosis (DVT), Hyperlipidemia, Hypertension, Liver Disease, Myocardial Infarction ([place]), Prostate Disorder, Renal Disease, Skin Disorder Additional Past Medical History / Comment(s): Ischemic cardiomyopathy, chronic CHF, 10/26/21 DVT L lower extremity, IDDM type II, neuropathy bilaterl legs/feet, L leg wounds, BPH, CKD stage III, hyperuricemia, hepatic steatosis, choledocholithiasis, eczema as child. Last Myocardial Infarction Date:: 02/12/2019 History of Any Multi-Drug Resistant Organisms: None Reported Past Surgical History: Heart Catheterization, Heart Catheterization With Stent, Orthopedic Surgery Additional Past Surgical History / Comment(s): skin cancer removed from nose August 2020 Past Anesthesia/Blood Transfusion Reactions: No Reported Reaction Date of Last Stent Placement:: 2012 Past Psychological History: Anxiety, Depression Smoking Status: Never smoker Past Alcohol Use History: Occasional Past Drug Use History: None Reported - Past Family History Mother Family Medical History: Coronary Artery Disease (CAD), Diabetes Mellitus, Myocardial Infarction ([place]) Father Family Medical History: Diabetes Mellitus, Renal Disease family Additional Family Medical History / Comment(s): Mother with history of diabetes mellitus and CAD, father with history of heart disease and diabetes Medications and Allergies Home Medications Medication Instructions Recorded Confirmed Type Acetaminophen Tab [Tylenol] 650 mg PO Q6H PRN 08/22/21 02/07/22 History ALPRAZolam [Xanax] 0.25 mg PO BID #6 tab 12/06/21 02/07/22 Rx Apixaban [Eliquis] 5 mg PO BID #60 tab 12/06/21 02/07/22 Rx Nitroglycerin Sl Tabs [Nitrostat] 0.4 mg SL Q5M PRN #30 tab 12/06/21 02/07/22 Rx Spironolactone [Aldactone] 12.5 mg PO DAILY #30 tab 12/06/21 02/07/22 Rx Tamsulosin [Flomax] 0.4 mg PO HS #30 cap 12/06/21 02/07/22 Rx Aspirin 81 mg PO DAILY #90 tab 12/15/21 02/07/22 Rx Atorvastatin [Lipitor] 80 mg PO DAILY #30 tab 12/15/21 02/07/22 Rx FLUoxetine HCL [PROzac] 20 mg PO DAILY cap 12/15/21 02/07/22 Rx Isosorbide Mononitrate ER [Imdur] 30 mg PO DAILY #30 tab 12/15/21 02/07/22 Rx allopurinoL [Zyloprim] 100 mg PO DAILY tab 12/15/21 02/07/22 Rx Losartan Potassium [Cozaar] 25 mg PO DAILY 01/16/22 02/07/22 History Metoprolol Succinate (ER) [Toprol 50 mg PO DAILY 01/16/22 02/07/22 History XL] Torsemide [Demadex] 40 mg PO BID@0900,1600 #60 tab 01/18/22 02/07/22 Rx Collagenase [Santyl Ointment] 1 applic TOPICAL DAILY 02/07/22 02/07/22 History Ferrous Sulfate [Iron (65 MG 325 mg PO DAILY 02/07/22 02/07/22 History Elemental)] Sacubitril/Valsartan [Entresto 24 1 tab PO BID 02/07/22 02/07/22 History mg-26 mg Tablet] Allergies Allergy/AdvReac Type Severity Reaction Status Date / Time ciprofloxacin [From Cipro] Allergy Rash/Hives Verified 02/07/22 11:17 Physical Exam Vitals: Vital Signs Temp Pulse Resp BP Pulse Ox 02/08/22 07:40 97.8 F 80 18 117/80 92 L 02/08/22 02:51 97.5 F L 81 16 121/79 93 L 02/07/22 20:11 97.4 F L 79 17 127/80 95 02/07/22 15:00 97.5 F L 74 18 126/82 97 Intake and Output 02/07/22 02/08/22 02/08/22 22:59 06:59 14:59 Intake Total 118 358 Balance 118 358 Intake: Oral 118 358 Other: Voiding Method Toilet Toilet Weight 90.718 kg 101 kg General: Nontoxic, no distress and appears stated age. Derm: Skin warm and dry, normal coloration for ethnicity. Head: Atraumatic, normocephalic and symmetric. Eyes: EOMs intact, no lid lag, and anicteric sclera Mouth: no lip lesions, mucus membranes moist Cardiovascular: regular rate and rhythm with normal S1S2, systolic murmur, positive posterior tibial pulses bilaterally, and cap refill < 2 seconds. Lungs: Respirations even, regular, and unlabored on room air. Lungs CTA bilaterally, no rhonchi, no rales, no wheezing, and no accessory muscle usage. Abdominal: soft, nontender to palpation, no guarding, no appreciable organomegaly Ext: ROM intact. No gross muscle atrophy, edema left lower extremity with c hronic wounds/ulcerations, dressing currently in place and unable to inspect as supplies for dressing change not available in the emergency department. Neuro: Speech clear, face symmetrical and CN II-XII grossly intact with no noted focal neuro deficits. Psych: Alert and oriented to person, place, time, and situation. Appropriate and pleasant affect. Results CBC & Chem 7: 02/08/22 05:19 02/08/22 05:19 Labs: Abnormal Lab Results - Last 24 Hours (Table) 02/07/22 02/07/22 02/08/22 Range/Units 17:30 20:09 05:19 RBC 3.15 L (4.40-5.60) X 10*6/uL Hgb 9.4 L (13.0-17.0) g/dL Hct 30.3 L (39.6-50.0) % MCHC 31.0 L (32.0-37.0) g/dL RDW 18.6 H (11.5-14.5) % Lymphocytes # 0.64 L (0.90-5.00) X 10*3/uL BUN (9.0-27.0) mg/dL Creatinine (0.6-1.5) mg/dL Est GFR (CKD-EPI)AfAm (60.0-200.0) Est GFR (CKD-EPI)NonAf (60.0-200.0) BUN/Creatinine Ratio (12.00-20.00) Ratio Glucose (70-110) mg/dL POC Glucose (mg/dL) 211 H 238 H (70-110) mg/dL 02/08/22 02/08/22 02/08/22 Range/Units 05:19 07:40 12:20 RBC (4.40-5.60) X 10*6/uL Hgb (13.0-17.0) g/dL Hct (39.6-50.0) % MCHC (32.0-37.0) g/dL RDW (11.5-14.5) % Lymphocytes # (0.90-5.00) X 10*3/uL BUN 65.6 H (9.0-27.0) mg/dL Creatinine 2.6 H (0.6-1.5) mg/dL Est GFR (CKD-EPI)AfAm 28.1 L (60.0-200.0) Est GFR (CKD-EPI)NonAf 24.3 L (60.0-200.0) BUN/Creatinine Ratio 25.23 H (12.00-20.00) Ratio Glucose 133 H (70-110) mg/dL POC Glucose (mg/dL) 152 H 239 H (70-110) mg/dL Chest x-ray: report reviewed CT scan - chest: report reviewed Assessment and Plan Assessment: Social * Occupation - Retired * Marital status - * Residence - Single story home * Who do you reside with - His sisterCindy Spiritual/Cultural * A spiritual person - Yes * Rastafarian - Denominational * Belong to a particular scientologist - No * Beliefs a source of comfort and strength - Yes * Orthodoxy or cultural practices restrictions - No * EOL considerations/rituals -No Functional Assessment * Able to walk independently - Yes * Assistive devices - walker and cane * Able to use the bathroom independently - Yes * Continent - Yes * Require assistance bathing- No * Able to feed self - Yes * Who prepares meals - Sister * How many meals a day eaten - 2-3 * What percentage of meals eaten daily - >50% * Transportation - Patient has a car but does not drive anymore. His sister provides transportation * Who manages medications - Patient * Who manages finances - Patient Psychological/Emotional * Dementia present - No * Insight and judgment - Intact * Depression - No * Suicidal thoughts - No * Good support system - Yes * Patients goals - prolonged survival * Frequent hospitalizations - Yes * Desire to keep coming back to the hospital for treatment - Yes Symptoms * Pain - 0/10, Continue Tylenol and Morphine prn * Fatigue - No * SOB - Yes, with activity Continue Aldactone and Demadex * Insomnia - No * N/V - NNo * Anxiety - Occasinal, Continue Xanax * Depression - No, continue Prozac * Confusion - No * Agitation - No * Hallucinations - No * Appetite/weight loss - Good appetite, no recent weight loss, continue heart healthy diet * Dysphagia - No * Constipation - No * Incontinence - No * Itch - No Plan: Summary/Goals - The patient is sitting on the side of the bed eating lunch. He is very pleasant and talkative. Information regarding Palliative Care philosophies and services provided. Education regarding his chronic illnesses also provided. He is agreeable to outpatient Palliative Care services to assist in managing his multiple chronic illnesses and prevent frequent hospitalizations. He states that he was told he was being discharged today. online services manager notified for referral. Recommendations - Discharge home with HHC and OP Palliative Care Advanced Directives - No Code Status - Full Code Thank you for this consultation Tran Jung [facility]- Palliative Care Spect[place]ink [phone] Email: [email or web address] Time with Patient: Greater than 30
== END 2022-02-08 15:20 | disposition home health service (06) ==
LOC: EC 08:35 → 6NMEDSUR 11:26
PROVIDERS: ADMIT Internal Medicine; ATTEND Internal Medicine
DX: R07.89 Other chest pain (principal); I25.5 Ischemic cardiomyopathy; I13.0 Hypertensive heart and chronic kidney disease with heart failure and stage 1 through stage 4 chronic kidney disease, or unspecified chronic kidney disease; E11.22 Type 2 diabetes mellitus with diabetic chronic kidney disease; I25.10 Atherosclerotic heart disease of native coronary artery without angina pectoris; E78.5 Hyperlipidemia, unspecified; I25.2 Old myocardial infarction; I50.22 Chronic systolic (congestive) heart failure; E11.42 Type 2 diabetes mellitus with diabetic polyneuropathy; N40.0 Benign prostatic hyperplasia without lower urinary tract symptoms; K76.0 Fatty (change of) liver, not elsewhere classified; F32.A Depression, unspecified; F41.9 Anxiety disorder, unspecified; M12.812 Other specific arthropathies, not elsewhere classified, left shoulder; M12.811 Other specific arthropathies, not elsewhere classified, right shoulder; K80.20 Calculus of gallbladder without cholecystitis without obstruction; N18.4 Chronic kidney disease, stage 4 (severe); I48.91 Unspecified atrial fibrillation; R18.8 Other ascites; E11.51 Type 2 diabetes mellitus with diabetic peripheral angiopathy without gangrene; E11.622 Type 2 diabetes mellitus with other skin ulcer; D50.9 Iron deficiency anemia, unspecified; Z79.01 Long term (current) use of anticoagulants; Z79.4 Long term (current) use of insulin; Z85.828 Personal history of other malignant neoplasm of skin; Z79.899 Other long term (current) drug therapy; Z79.82 Long term (current) use of aspirin; Z88.1 Allergy status to other antibiotic agents; Z86.718 Personal history of other venous thrombosis and embolism; Z83.3 Family history of diabetes mellitus; Z82.49 Family history of ischemic heart disease and other diseases of the circulatory system; Z95.5 Presence of coronary angioplasty implant and graft
CPT/HCPCS: 96361; 96374; 99285; 36415; 93005; 83880; 80053; 80048; 83735 ×2; 84484; 85025 ×2; 85610; 85730; 71046; 71275; 74174; G0378 ×2; J2270; Q9967

== ENCOUNTER 2022-02-19 15:28 | Inpatient (IN) | payer MEDICARE ==
--- NOTE | 2022-02-19 16:21 | XR ---
EXAMINATION TYPE: XR chest 2V DATE OF EXAM: 02/19/2022 COMPARISON: Chest x-ray 12 days ago HISTORY: Difficulty in breathing. TECHNIQUE: Frontal and lateral views of the chest are obtained. FINDINGS: Cardiomegaly is redemonstrated. There is now posterior retrocardiac opacity seen best on l ateral view. Right lung remains clear. No pleural effusion or pneumothorax seen bilaterally. Osseous structures are intact. IMPRESSION: Cardiomegaly with suggestion of new posterior left basilar acute infiltrate. Correlate c linically.
[2022-02-19 17:12] LABS: Anisocytosis Slight; Basophils # (A) 0.1 k/uL (0-0.2); Basophils % (A) 1 %; Eosinophils # (A) 0.2 k/uL (0-0.7); Eosinophils % (A) 3 %; HCT 30.2 % (39.0-53.0); HGB 9.5 gm/dL (13.0-17.5); Hypochromasia Marked; Lymphocytes # (A) 0.5 k/uL (1.0-4.8); Lymphocytes % (A) 8 %; MCH 31.2 pg (25.0-35.0); MCHC 31.3 g/dL (31.0-37.0); MCV 99.8 fL (80.0-100.0); Macrocytosis Moderate; Mean Platelet Volume 9.4; Monocytes # (A) 0.4 k/uL (0-1.0); Monocytes % (A) 7 %; Neutrophils # (A) 5.2 k/uL (1.3-7.7); Neutrophils % (A) 80 %; Platelet Count 135 k/uL (150-450); RBC 3.03 m/uL (4.30-5.90); RDW 18.7 % (11.5-15.5); WBC 6.5 k/uL (3.8-10.6)
[2022-02-19 17:27] LABS: Albumin 4.1 g/dL (3.5-5.0); Calcium 9.2 mg/dL (8.4-10.2); Total Bilirubin 0.5 mg/dL (0.2-1.3)
[2022-02-19 17:31] LABS: INR 1.8 (<1.2); Partial Thromboplastin Time 39.7 sec (22.0-30.0); Prothrombin Time 18.1 sec (9.0-12.0)
--- NOTE | 2022-02-19 18:53 | ED ---
General Adult HPI - General Chief complaint: Shortness of Breath Stated complaint: Dr.Tumma ROSELYN sent Time Seen by Provider: 02/19/22 17:53 Source: patient Mode of arrival: ambulatory Limitations: no limitations - History of Present Illness Initial comments: Patient is a 66-year-old male presenting with chief complaint of difficulty breathing. Symptoms have been increasing over the last week. Patient also states that his abdomen feels very "full". Patient admits to occasional cough, nonproductive. No fever or chills. No chest pain. Patient was instructed to come to the hospital by Dr. Leblanc, due to elevated BNP and creatinine/BUN. Patient has history of CHF, as well as diabetes, CAD, CKD. - Related Data Home Medications Medication Instructions Recorded Confirmed Acetaminophen Tab [Tylenol] 650 mg PO Q6H PRN 08/22/21 02/19/22 Losartan Potassium [Cozaar] 25 mg PO DAILY 01/16/22 02/19/22 Metoprolol Succinate (ER) [Toprol 50 mg PO DAILY 01/16/22 02/19/22 XL] Collagenase [Santyl Ointment] 1 applic TOPICAL DAILY 02/07/22 02/19/22 Ferrous Sulfate [Iron (65 MG 325 mg PO DAILY 02/07/22 02/19/22 Elemental)] Sacubitril/Valsartan [Entresto 24 1 tab PO BID 02/07/22 02/19/22 mg-26 mg Tablet] Previous Rx's Medication Instructions Recorded ALPRAZolam [Xanax] 0.25 mg PO BID #6 tab 12/06/21 Apixaban [Eliquis] 5 mg PO BID #60 tab 12/06/21 Nitroglycerin Sl Tabs [Nitrostat] 0.4 mg SL Q5M PRN #30 tab 12/06/21 Spironolactone [Aldactone] 12.5 mg PO DAILY #30 tab 12/06/21 Tamsulosin [Flomax] 0.4 mg PO HS #30 cap 12/06/21 Aspirin 81 mg PO DAILY #90 tab 12/15/21 Atorvastatin [Lipitor] 80 mg PO DAILY #30 tab 12/15/21 FLUoxetine HCL [PROzac] 20 mg PO DAILY cap 12/15/21 Isosorbide Mononitrate ER [Imdur] 30 mg PO DAILY #30 tab 12/15/21 allopurinoL [Zyloprim] 100 mg PO DAILY tab 12/15/21 Torsemide [Demadex] 40 mg PO BID@0900,1600 #60 tab 01/18/22 Allergies Allergy/AdvReac Type Severity Reaction Status Date / Time ciprofloxacin [From Cipro] Allergy Rash/Hives Verified 02/19/22 20:47 Review of Systems ROS Statement: Those systems with pertinent positive or pertinent negative responses have been documented in the HPI. ROS Other: All systems not noted in ROS Statement are negative. Past Medical History Past Medical History: Coronary Artery Disease (CAD), Cancer, Heart Failure, Diabetes Mellitus, Deep Vein Thrombosis (DVT), Hyperlipidemia, Hypertension, Liver Disease, Myocardial Infarction ([place]), Prostate Disorder, Renal Disease, Skin Disorder Additional Past Medical History / Comment(s): Ischemic cardiomyopathy, chronic CHF, 10/26/21 DVT L lower extremity, IDDM type II, neuropathy bilaterl legs/feet, L leg wounds, BPH, CKD stage III, hyperuricemia, hepatic steatosis, choledocholithiasis, eczema as child. Last Myocardial Infarction Date:: 02/12/2019 History of Any Multi-Drug Resistant Organisms: None Reported Past Surgical History: Heart Catheterization, Heart Catheterization With Stent, Orthopedic Surgery Additional Past Surgical History / Comment(s): skin cancer removed from nose August 2020 Past Anesthesia/Blood Transfusion Reactions: No Reported Reaction Date of Last Stent Placement:: 2012 Past Psychological History: Anxiety, Depression Smoking Status: Never smoker Past Alcohol Use History: Occasional Past Drug Use History: None Reported - Past Family History Mother Family Medical History: Coronary Artery Disease (CAD), Diabetes Mellitus, Myocardial Infarction ([place]) Father Family Medical History: Diabetes Mellitus, Renal Disease family Additional Family Medical History / Comment(s): Mother with history of diabetes mellitus and CAD, father with history of heart disease and diabetes General Exam Limitations: no limitations General appearance: alert, in no apparent distress Head exam: Present: atraumatic, normocephalic, normal inspection Eye exam: Present: normal appearance, PERRL, EOMI. Absent: scleral icterus, conjunctival injection, periorbital swelling Neck exam: Present: normal inspection Respiratory exam: Present: rales. Absent: respiratory distress, wheezes, rhonchi, stridor Cardiovascular Exam: Present: regular rate, normal rhythm, normal heart sounds. Absent: systolic murmur, diastolic murmur, rubs, gallop, clicks GI/Abdominal exam: Present: distended Neurological exam: Present: alert, oriented X3, CN II-XII intact Psychiatric exam: Present: normal affect, normal mood Skin exam: Present: warm, dry, intact, normal color. Absent: rash Course Vital Signs 02/19/22 02/19/22 02/19/22 16:00 19:33 19:40 Temperature 97.8 F Pulse Rate 79 79 74 Respiratory 23 18 Rate Blood Pressure 120/69 129/80 O2 Sat by Pulse 96 99 Oximetry 02/19/22 02/19/22 02/19/22 19:50 20:00 20:05 Temperature Pulse Rate 74 73 78 Respiratory 18 Rate Blood Pressure 129/80 O2 Sat by Pulse 97 Oximetry 02/19/22 22:15 Temperature Pulse Rate 85 Respiratory 18 Rate Blood Pressure 106/58 O2 Sat by Pulse 97 Oximetry Medical Decision Making - Medical Decision Making Patient is a 66-year-old male with history of CK day and CHF presenting with chief complaint of difficulty breathing. Symptoms have been worsening over the last week. Patient admits to abdominal distention. Physical examination there are some rales heard. Hemoglobin 9.5, consistent with baseline. Potassium 6.0. Creatinine 3.65 and BUN 94, slightly worse than where patient has been on average in recent visits. BNP 02569. Troponin 0.012. Patient is given medication for hyperkalemia. Chest x-ray read demonstrates cardiomegaly, there is suggested new posterior left basilar acute infiltrate, this does not correlate clinically, patient denies any cough or sputum production, no fever or chills. Likely related to CHF. I discussed this finding with the admitting physician who was in agreement. Patient will be admitted for hyperkalemia, CHF, CKD. I spoke with Dr. Johnson who agreed to admit the patient. I discussed th is case with my attending Dr. Croft. - Lab Data Result diagrams: 02/19/22 16:50 02/19/22 21:22 Lab Results 02/19/22 02/19/22 02/19/22 Range/Units 16:50 16:50 16:50 WBC 6.5 (3.8-10.6) k/uL RBC 3.03 L (4.30-5.90) m/uL Hgb 9.5 L (13.0-17.5) gm/dL Hct 30.2 L (39.0-53.0) % MCV 99.8 (80.0-100.0) fL MCH 31.2 (25.0-35.0) pg MCHC 31.3 (31.0-37.0) g/dL RDW 18.7 H (11.5-15.5) % Plt Count 135 L (150-450) k/uL MPV 9.4 Neutrophils % 80 % Lymphocytes % 8 % Monocytes % 7 % Eosinophils % 3 % Basophils % 1 % Neutrophils # 5.2 (1.3-7.7) k/uL Lymphocytes # 0.5 L (1.0-4.8) k/uL Monocytes # 0.4 (0-1.0) k/uL Eosinophils # 0.2 (0-0.7) k/uL Basophils # 0.1 (0-0.2) k/uL Hypochromasia Marked Anisocytosis Slight Macrocytosis Moderate PT 18.1 H (9.0-12.0) sec INR 1.8 H (<1.2) APTT 39.7 H (22.0-30.0) sec Sodium 139 (137-145) mmol/L Potassium 6.0 H (3.5-5.1) mmol/L Chloride 106 (98-107) mmol/L Carbon Dioxide 15 L (22-30) mmol/L Anion Gap 18 mmol/L BUN 94 H (9-20) mg/dL Creatinine 3.65 H (0.66-1.25) mg/dL Est GFR (CKD-EPI)AfAm 19 (>60 ml/min/1.73 sqM) Est GFR (CKD-EPI)NonAf 16 (>60 ml/min/1.73 sqM) Glucose 188 H (74-99) mg/dL Calcium 9.2 (8.4-10.2) mg/dL Total Bilirubin 0.5 (0.2-1.3) mg/dL AST 20 (17-59) U/L ALT 14 (4-49) U/L Alkaline Phosphatase 62 (38-126) U/L Troponin I (0.000-0.034) ng/mL NT-Pro-B Natriuret Pep pg/mL Total Protein 7.0 (6.3-8.2) g/dL Albumin 4.1 (3.5-5.0) g/dL 02/19/22 02/19/22 Range/Units 16:50 16:50 WBC (3.8-10.6) k/uL RBC (4.30-5.90) m/uL Hgb (13.0-17.5) gm/dL Hct (39.0-53.0) % MCV (80.0-100.0) fL MCH (25.0-35.0) pg MCHC (31.0-37.0) g/dL RDW (11.5-15.5) % Plt Count (150-450) k/uL MPV Neutrophils % % Lymphocytes % % Monocytes % % Eosinophils % % Basophils % % Neutrophils # (1.3-7.7) k/uL Lymphocytes # (1.0-4.8) k/uL Monocytes # (0-1.0) k/uL Eosinophils # (0-0.7) k/uL Basophils # (0-0.2) k/uL Hypochromasia Anisocytosis Macrocytosis PT (9.0-12.0) sec INR (<1.2) APTT (22.0-30.0) sec Sodium (137-145) mmol/L Potassium (3.5-5.1) mmol/L Chloride (98-107) mmol/L Carbon Dioxide (22-30) mmol/L Anion Gap mmol/L BUN (9-20) mg/dL Creatinine (0.66-1.25) mg/dL Est GFR (CKD-EPI)AfAm (>60 ml/min/1.73 sqM) Est GFR (CKD-EPI)NonAf (>60 ml/min/1.73 sqM) Glucose (74-99) mg/dL Calcium (8.4-10.2) mg/dL Total Bilirubin (0.2-1.3) mg/dL AST (17-59) U/L ALT (4-49) U/L Alkaline Phosphatase (38-126) U/L Troponin I 0.012 (0.000-0.034) ng/mL NT-Pro-B Natriuret Pep 91835 pg/mL Total Protein (6.3-8.2) g/dL Albumin (3.5-5.0) g/dL Disposition Clinical Impression: Hyperkalemia, CHF (congestive heart failure), CKD (chronic kidney disease) Disposition: ADMITTED IP TO THIS [facility] Condition: Fair Time of Disposition: 19:22 Decision to Admit Reason: Admit from EC Decision Date: 02/19/22 Decision Time: 19:22
[2022-02-19] MEDS ORDERED: INSULIN REGULAR 100 UNIT/ML VIAL (IV) IV ONE (19:07)
[2022-02-19] MEDS ORDERED: ALBUTEROL NEB (CONC) 2.5 MG/0.5 ML INHALATION ONE (19:07)
[2022-02-19] MEDS ORDERED: DEXTROSE 50% SYRINGE 50 ML IVP ONE (19:07)
[2022-02-19] MEDS ORDERED: CALCIUM GLUCONATE IN NACL 1 GM in SALINE 1 100ML.BAG IVPB ONE (19:07)
[2022-02-19] MEDS ORDERED: NALOXONE 0.4 MG/ML 1 ML VIAL IV PRN (19:32)
[2022-02-19] MEDS ORDERED: SODIUM CHLORIDE 0.9% 1,000 ML IV SCH (19:45)
[2022-02-19] MEDS ORDERED: ACETAMINOPHEN TAB 325 MG TAB PO STA (22:06)
[2022-02-19] MEDS ORDERED: ACETAMINOPHEN TAB 325 MG TAB PO PRN (22:25)
[2022-02-19] MEDS: ALPRAZolam 0.25 MG TAB PO SCH (23:09)
[2022-02-19] MEDS: TAMSULOSIN 0.4 MG CAP.ER.24H PO SCH (23:10)
[2022-02-20 06:36] LABS: Glucose,Whole Blood 86 mg/dL (70-110)
[2022-02-20] MEDS: ALPRAZolam 0.25 MG TAB PO SCH ×2 (08:26→20:06)
[2022-02-20] MEDS: FLUoxetine HCL 20 MG CAP PO SCH (08:26)
[2022-02-20] MEDS: ASPIRIN 81 MG PO SCH (08:26)
[2022-02-20] MEDS: allopurinoL 100 MG TAB PO SCH (08:26)
[2022-02-20] MEDS: ATORVASTATIN 80 MG TAB PO SCH (08:26)
[2022-02-20] MEDS: ISOSORBIDE MONONITRATE ER 30 MG TAB.ER.24H PO SCH (08:26)
[2022-02-20] MEDS: METOPROLOL SUCCINATE (ER) 50 MG TAB.ER.24H PO SCH (08:27)
[2022-02-20 08:43] LABS: Anisocytosis Slight; Basophils # (A) 0.1 k/uL (0-0.2); Basophils % (A) 1 %; Eosinophils # (A) 0.2 k/uL (0-0.7); Eosinophils % (A) 3 %; HCT 28.7 % (39.0-53.0); HGB 8.8 gm/dL (13.0-17.5); Hypochromasia Marked; Lymphocytes # (A) 0.5 k/uL (1.0-4.8); Lymphocytes % (A) 8 %; MCH 30.6 pg (25.0-35.0); MCHC 30.9 g/dL (31.0-37.0); MCV 99.1 fL (80.0-100.0); Macrocytosis Moderate; Mean Platelet Volume 9.5; Monocytes # (A) 0.5 k/uL (0-1.0); Monocytes % (A) 7 %; Neutrophils # (A) 5.3 k/uL (1.3-7.7); Neutrophils % (A) 79 %; Platelet Count 119 k/uL (150-450); Poikilocytosis Slight; RBC 2.89 m/uL (4.30-5.90); WBC 6.7 k/uL (3.8-10.6)
[2022-02-20 08:44] LABS: Albumin 3.9 g/dL (3.5-5.0); Calcium 9.2 mg/dL (8.4-10.2); Potassium 5.9 mmol/L (3.5-5.1); Total Bilirubin 0.8 mg/dL (0.2-1.3); Total Protein 6.6 g/dL (6.3-8.2)
[2022-02-20] MEDS ORDERED: SODIUM ZIRCONIUM CYCLOSILICATE 10 GM PACKET PO ONE ×2 (09:37→19:22)
[2022-02-20] MEDS ORDERED: PROCHLORPERAZINE INJ 10 MG/2 ML VIAL IVP PRN (10:05)
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
[2022-02-20] MEDS: DEXTROSE 5% IN WATER 1,000 ML with SODIUM BICARB (1 MEQ/ML) 150 ML IV SCH (10:20)
[2022-02-20] MEDS: APIXABAN 5 MG TAB PO SCH ×2 (10:28→20:06)
[2022-02-20 11:38] LABS: Glucose,Whole Blood 177 mg/dL (70-110)
--- NOTE | 2022-02-20 11:43 | P.HPIM ---
History of Present Illness H&P Date: 02/19/22 Chief Complaint: Distended abdomen This is a pleasant 66-year-old patient, follows with Dr. Mike Escobar. Chronic stable medical conditions include CAD with stent, diabetes, hypertension, hyperlipidemia anxiety. CAD, hyperuricemia, left leg DVT in October 2021, CHF EF 20 have 25% recently in the hospital from November 14 through November 21/2022 with leg wounds. seen by ID and vascular. Wound culture - stenotrophomonas maltophilia. Discharged on IV Fortaz. Subsequent admission discharged on Levaquin. Patient does follow the wound care center. Patient now presents with increasing shortness of breath. On walking a few steps. Increased abdominal distention. Minimal edema. Uses 2 pillows at night. Slight cough. Decrease appetite. No fever no chills. Tired. Patient found to have worsening renal function and increased BNP. She sent to the hospital by Dr. Richa Riggins/cardiology. 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 Alcohol rarely. 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 Conjunctiva normal. HEENT: External appearance of nose and ears normal, oral cavity grossly normal. NECK: JVD possibly raised; masses not palpable. HEART: First and second heart sounds are normal; some edema. LUNGS: Respiratory rate increased; decreased breath sound . ABDOMEN: Soft, nontender, liver spleen not palpable, no masses palpable. PSYCH: [Alert and oriented x3; mood and affect slightly anxious LYMPHATICS: No lymph node palpable neck and axilla Musculoskeletal: Evidence of OA DERMATOLOGICAL: Dressing on the left leg on wounds INVESTIGATIONS, reviewed in the clinical context: WBC 6.5 hemoglobin 9.5 platelets 135 sodium 139 potassium 6 BUN 94 creatinine 3.65 Troponin I 0.012 ProBNP [id number] EKG tracing personally reviewed by me-sinus rhythm, right bundle branch block Chest x-ray film personally reviewed by me-cardiomegaly, venous cephalization and prominence February 08: Creatinine 2.6 Previous labs [October 2021] Uric acid 10.7 2-D echocardiogram: EF 20-25%. Left lower extremity venous Doppler: DVT in the common femoral vein. Gallbladder ultrasound: Gallbladder filled with stones. Possible hepatic steatosis. Arterial Doppler results discussed with Dr. Mike: No evidence of vascular compromise Assessment and plan: -Acute on chronic congestive heart failure from ischemic cardiomyopathy EF 20- 25%. Hold Lasix currently because of renal function. May require Lasix drip./Dobutamine. Consult cardiology -Acute kidney injury/ATN from hepatorenal syndrome Consult nephrology. Strict I's and O's - chronic multiple wounds painful left lower extremity likely from venous ulcers from recent DVT. Follow with wound care team -Chronic DVT of the left common femoral vein, in 10/16/2021 eliquis . -Ischemic cardiomyopathy, EF 20-25% Toprol-XL 50 mg daily. Aldactone hold. -Choledocholithiasis. Asymptomatic -Hyperkalemia secondary to chronic kidney disease and based also on Cozaar and Aldactone Received calcium gluconate, dextrose, insulin, in the ER. -CAD with a history of stent Aspirin 81 mg daily, Lopressor -Diabetes mellitus type 2, chronically on insulin Follow Accu-Cheks and sliding scale insulin. 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 Creatinine 1. 96 on 10/26/2021 -Anxiety not otherwise specified Xanax 0.25 mg by mouth twice a day -Hyperuricemia allopurinol 100 mg daily -full code Resume home medications. Her Demadex. Hold Aldactone. Hold Cozaar. Consult wound care team. Consultation to cardiology and nephrology. Discussed with patient. Follow labs Past Medical History Past Medical History: Coronary Artery Disease (CAD), Cancer, Heart Failure, Diabetes Mellitus, Deep Vein Thrombosis (DVT), Hyperlipidemia, Hypertension, Liver Disease, Myocardial Infarction ([place]), Prostate Disorder, Renal Disease, Skin Disorder Additional Past Medical History / Comment(s): Ischemic cardiomyopathy, chronic CHF, 10/26/21 DVT L lower extremity, IDDM type II, neuropathy bilaterl legs/feet, L leg wounds, BPH, CKD stage III, hyperuricemia, hepatic steatosis, choledocholithiasis, eczema as child. Last Myocardial Infarction Date:: 02/12/2019 History of Any Multi-Drug Resistant Organisms: None Reported Past Surgical History: Heart Catheterization, Heart Catheterization With Stent, Orthopedic Surgery Additional Past Surgical History / Comment(s): skin cancer removed from nose August 2020 Past Anesthesia/Blood Transfusion Reactions: No Reported Reaction Date of Last Stent Placement:: 2012 Past Psychological History: Anxiety, Depression Smoking Status: Never smoker Past Alcohol Use History: Occasional Past Drug Use History: None Reported - Past Family History Mother Family Medical History: Coronary Artery Disease (CAD), Diabetes Mellitus, Myocardial Infarction ([place]) Father Family Medical History: Diabetes Mellitus, Renal Disease family Additional Family Medical History / Comment(s): Mother with history of diabetes mellitus and CAD, father with history of heart disease and diabetes Medications and Allergies Home Medications Medication Instructions Recorded Confirmed Type Acetaminophen Tab [Tylenol] 650 mg PO Q6H PRN 08/22/21 02/19/22 History ALPRAZolam [Xanax] 0.25 mg PO BID #6 tab 12/06/21 02/19/22 Rx Apixaban [Eliquis] 5 mg PO BID #60 tab 12/06/21 02/19/22 Rx Nitroglycerin Sl Tabs [Nitrostat] 0.4 mg SL Q5M PRN #30 tab 12/06/21 02/19/22 Rx Spironolactone [Aldactone] 12.5 mg PO DAILY #30 tab 12/06/21 02/19/22 Rx Tamsulosin [Flomax] 0.4 mg PO HS #30 cap 12/06/21 02/19/22 Rx Aspirin 81 mg PO DAILY #90 tab 12/15/21 02/19/22 Rx Atorvastatin [Lipitor] 80 mg PO DAILY #30 tab 12/15/21 02/19/22 Rx FLUoxetine HCL [PROzac] 20 mg PO DAILY cap 12/15/21 02/19/22 Rx Isosorbide Mononitrate ER [Imdur] 30 mg PO DAILY #30 tab 12/15/21 02/19/22 Rx allopurinoL [Zyloprim] 100 mg PO DAILY tab 12/15/21 02/19/22 Rx Losartan Potassium [Cozaar] 25 mg PO DAILY 01/16/22 02/19/22 History Metoprolol Succinate (ER) [Toprol 50 mg PO DAILY 01/16/22 02/19/22 History XL] Torsemide [Demadex] 40 mg PO BID@0900,1600 #60 tab 01/18/22 02/19/22 Rx Collagenase [Santyl Ointment] 1 applic TOPICAL DAILY 02/07/22 02/19/22 History Ferrous Sulfate [Iron (65 MG 325 mg PO DAILY 02/07/22 02/19/22 History Elemental)] Allergies Allergy/AdvReac Type Severity Reaction Status Date / Time ciprofloxacin [From Cipro] Allergy Rash/Hives Verified 02/19/22 20:47 Physical Exam Vitals: Vital Signs Temp Pulse Resp BP Pulse Ox 02/19/22 22:15 85 18 106/58 97 02/19/22 20:05 78 02/19/22 20:00 73 18 129/80 97 02/19/22 19:50 74 02/19/22 19:40 74 02/19/22 19:33 79 18 129/80 99 02/19/22 16:00 97.8 F 79 23 120/69 96 Intake and Output 02/19/22 02/19/22 02/19/22 06:59 14:59 22:59 Other: Weight 96.615 kg Results CBC & Chem 7: 02/20/22 08:09 02/20/22 08:09 Labs: Abnormal Lab Results - Last 24 Hours (Table) 02/19/22 02/19/22 02/19/22 Range/Units 16:50 16:50 16:50 RBC 3.03 L (4.30-5.90) m/uL Hgb 9.5 L (13.0-17.5) gm/dL Hct 30.2 L (39.0-53.0) % RDW 18.7 H (11.5-15.5) % Plt Count 135 L (150-450) k/uL Lymphocytes # 0.5 L (1.0-4.8) k/uL PT 18.1 H (9.0-12.0) sec INR 1.8 H (<1.2) APTT 39.7 H (22.0-30.0) sec Potassium 6.0 H (3.5-5.1) mmol/L Carbon Dioxide 15 L (22-30) mmol/L BUN 94 H (9-20) mg/dL Creatinine 3.65 H (0.66-1.25) mg/dL Glucose 188 H (74-99) mg/dL 02/19/22 Range/Units 21:22 RBC (4.30-5.90) m/uL Hgb (13.0-17.5) gm/dL Hct (39.0-53.0) % RDW (11.5-15.5) % Plt Count (150-450) k/uL Lymphocytes # (1.0-4.8) k/uL PT (9.0-12.0) sec INR (<1.2) APTT (22.0-30.0) sec Potassium 5.2 H (3.5-5.1) mmol/L Carbon Dioxide (22-30) mmol/L BUN (9-20) mg/dL Creatinine (0.66-1.25) mg/dL Glucose (74-99) mg/dL
--- NOTE | 2022-02-20 11:48 | P.PN ---
Progress Note - Text Progress Note Date: 02/20/22 Chief Complaint: Distended abdomen This is a pleasant 66-year-old patient, follows with Dr. Mike Escobar. Chronic stable medical conditions include CAD with stent, diabetes, hypertension, hyperlipidemia anxiety. CAD, hyperuricemia, left leg DVT in October 2021, CHF EF 20 have 25% recently in the hospital from November 14 through November 21/2022 with leg wounds. seen by ID and vascular. Wound culture - stenotrophomonas maltophilia. Discharged on IV Fortaz. Subsequent admission discharged on Levaquin. Patient does follow the wound care center. Patient now presents with increasing shortness of breath. On walking a few steps. Increased abdominal distention. Minimal edema. Uses 2 pillows at night. Slight cough. Decrease appetite. No fever no chills. Tired. Patient found to have worsening renal function and increased BNP. She sent to the hospital by Dr. Richa Riggins/cardiology. Admitted with acute congestive heart exacerbation, ATN from cardiorenal syndrome, hyperkalemia. Nephrotoxic can potassium sparing medications held. Consultation to cardiology and nephrology. 02/20/2022: Patient put on a bicarbonate drip. Continue current medications. Add Lokelma eating some. Short of breath. Being followed by cardiology and nephrology. Wound care to follow. Active Medications Acetaminophen (Acetaminophen Tab 325 Mg Tab) 650 mg PO Q6H PRN PRN Reason: Pain or Fever > 100.5 Last Admin: 02/20/22 04:06 Dose: 650 mg Allopurinol (Allopurinol 100 Mg Tab) 100 mg PO DAILY [facility] Last Admin: 02/20/22 08:26 Dose: 100 mg Alprazolam (Alprazolam 0.25 Mg Tab) 0.25 mg PO BID [facility] Last Admin: 02/20/22 08:26 Dose: 0.25 mg Apixaban (Apixaban 5 Mg Tab) 5 mg PO BID [facility]; Protocol Last Admin: 02/20/22 10:28 Dose: 5 mg Aspirin (Aspirin 81 Mg) 81 mg PO DAILY [facility] Last Admin: 02/20/22 08:26 Dose: 81 mg Atorvastatin Calcium (Atorvastatin 80 Mg Tab) 80 mg PO DAILY [facility] Last Admin: 02/20/22 08:26 Dose: 80 mg Fluoxetine HCl (Fluoxetine Hcl 20 Mg Cap) 20 mg PO DAILY [facility] Last Admin: 02/20/22 08:26 Dose: 20 mg Sodium Bicarbonate 150 ml/ (Dextrose/Water) 1,150 mls @ 80 mls/hr IV .[id number] [facility] Last Admin: 02/20/22 10:20 Dose: 80 mls/hr Insulin Aspart (Insulin Aspart (Novolog) 100 Unit/Ml Vial) 0 unit SQ AC-TID SC H; Protocol Isosorbide Mononitrate (Isosorbide Mononitrate Er 30 Mg Tab.Er.24h) 30 mg PO DAILY [facility] Last Admin: 02/20/22 08:26 Dose: 30 mg Metoprolol Succinate (Metoprolol Succinate (Er) 50 Mg Tab.Er.24h) 50 mg PO DAILY [facility] Last Admin: 02/20/22 08:27 Dose: 50 mg Naloxone HCl (Naloxone 0.4 Mg/Ml 1 Ml Vial) 0.2 mg IV Q2M PRN PRN Reason: Opioid Reversal Prochlorperazine Edisylate (Prochlorperazine Inj 10 Mg/2 Ml Vial) 5 mg IVP Q8HR PRN PRN Reason: Nausea And Vomiting Last Admin: 02/20/22 10:20 Dose: 5 mg Tamsulosin HCl (Tamsulosin 0.4 Mg Cap.Er.24h) 0.4 mg PO HS [facility] Last Admin: 02/19/22 23:10 Dose: 0.4 mg Tramadol HCl (Tramadol 50 Mg Tab) 50 mg PO Q6HR PRN PRN Reason: Breakthrough Pain Past medical history to include: CAD with stent, diabetes, hypertension, hyperlipidemia, skin cancer on the nose in August 2020, anxiety, left leg common femoral DVT October 2021, hyperuricemia, hepatic steatosis, CHF EF 20-25% 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 Alcohol rarely. 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 Conjunctiva normal. HEENT: External appearance of nose and ears normal, oral cavity grossly normal. NECK: JVD possibly raised; masses not palpable. HEART: First and second heart sounds are normal; some edema. LUNGS: Respiratory rate increased; decreased breath sound . ABDOMEN: Soft, nontender, liver spleen not palpable, no masses palpable. PSYCH: [Alert and oriented x3; mood and affect slightly anxious LYMPHATICS: No lymph node palpable neck and axilla Musculoskeletal: Evidence of OA DERMATOLOGICAL: Dressing on the left leg on wounds INVESTIGATIONS, reviewed in the clinical context: February 20: WBC 6.7 hemoglobin 8.8 platelets 19 potassium 5.9 BUN 89 creatinine 3.51 WBC 6.5 hemoglobin 9.5 platelets 135 sodium 139 potassium 6 BUN 94 creatinine 3.65 Troponin I 0.012 ProBNP 16508 EKG tracing personally reviewed by me-sinus rhythm, right bundle branch block Chest x-ray film personally reviewed by me-cardiomegaly, venous cephalization and prominence February 08: Creatinine 2.6 Previous labs [October 2021] Uric acid 10.7 2-D echocardiogram: EF 20-25%. Left lower extremity venous Doppler: DVT in the common femoral vein. Gallbladder ultrasound: Gallbladder filled with stones. Possible hepatic steatosis. Arterial Doppler results discussed with Dr. Mike: No evidence of vascular compromise Assessment and plan: -Acute on chronic congestive heart failure from ischemic cardiomyopathy EF 20- 25%.: Slow to respond Diuretics held currently because of renal function. Follow with cardiology/nephrology -Acute kidney injury/ATN from hepatorenal syndrome: Slow to respond Consult nephrology. Strict I's and O's - chronic multiple wounds painful left lower extremity likely from venous ulcers from recent DVT. Follow with wound care team -Chronic DVT of the left common femoral vein, in 10/16/2021 jesse . -Ischemic cardiomyopathy, EF 20-25% Toprol-XL 50 mg daily. Aldactone hold. -Choledocholithiasis. Asymptomatic -Hyperkalemia secondary to chronic kidney disease and based also on Cozaar and Aldactone: Uncontrolled Received calcium gluconate, dextrose, insulin, in the ER. Add Lokelma. Bicarbonate -Metabolic acidosis from renal failure Sodium bicarbonate drip -CAD with a history of stent Aspirin 81 mg daily, Lopressor -Diabetes mellitus type 2, chronically on insulin Follow Accu-Cheks and sliding scale insulin. 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 Creatinine 1. 96 on 10/26/2021 -Anxiety not otherwise specified Xanax 0.25 mg by mouth twice a day -Hyperuricemia allopurinol 100 mg daily -no code Sodium bicarbonate drip. Add Lokelma. Other medications to continue. Follow with nephrology and cardiology. Prognosis guarded.
[2022-02-20] MEDS: INSULIN ASPART (NovoLOG) 100 UNIT/ML VIAL SQ SCH ×2 (11:49→16:57)
[2022-02-20] MEDS: traMADol 50 MG TAB PO PRN (11:52)
--- NOTE | 2022-02-20 11:53 | P.CONS ---
History of Present Illness - Reason for Consult Consult date: 02/20/22 wound care - History of Present Illness This is a 66-year-old patient known to the wound care center with ulcerations to the left lower extremity lateral aspect of left lower extremity medial aspect and the left lower extremity ankle. Ulcerations are classified as diabetic wound ulcer Bel[place] grade 2 with fat layer exposure. The wound has been in treatment 11 weeks. The wound is currently classified as a Grade 2 wound with etiology of Diabetic Wound/Ulcer of the Lower Extremity and is located on the Left,Lateral Lower Leg. The wound measures 16.7cm length x 5.3cm width x 0.6cm depth; 69.516cm^2 area and 41.709cm^3 volume. There is Fat Layer (Subcutaneous Tissue) exposed. There is no tunneling or undermining noted. There is a medium amount of serous drainage noted. The wound margin is well defined and not attached to the wound base. There is large (67-100%) red granulation within the wound bed. There is a small (1-33%) amount of necrotic tissue within the wound bed including Adherent Slough. The periwound skin appearance exhibited: Dry/Scaly. The periwound skin appearance did not exhibit: Callus, Crepitus, E xcoriation, Induration, Rash, Scarring, Maceration, Atrophie Ally, Cyanosis, Ecchymosis, Hemosiderin Staining, Mottled, Pallor, Rubor, Erythema. Periwound temperature was noted as No Abnormality. The periwound has tenderness on palpation. The wound is currently classified as a Grade 2 wound with etiology of Diabetic Wound/Ulcer of the Lower Extremity and is located on the Left,Lateral Ankle. The wound measures 1.8cm length x 2.1cm width x 0.3cm depth; 2.969cm^2 area and 0.891cm^3 volume. There is Fat Layer (Subcutaneous Tissue) exposed. There is no tunneling or undermining noted. There is a medium amount of serous drainage noted. The wound margin is well defined and not attached to the wound base. There is large (67-100%) red granulation within the wound bed. There is a small (1-33%) amount of necrotic tissue within the wound bed including Adherent Slough. The periwound skin appearance exhibited: Scarring, Dry/Scaly, Hemosiderin Staining. The periwound skin appearance did not exhibit: Callus, Crepitus, Excoriation, Induration, Rash, Maceration, Atrophie Ally, Cyanosis, Ecchymosis, Mottled, Pallor, Rubor, Erythema. Periwound temperature was noted as No Abnormality. The periwound has tenderness on palpation. The wound is currently classified as a Grade 2 wound with etiology of Diabetic Wound/Ulcer of the Lower Extremity and is located on the Left,Medial Lower Leg. The wound measures 7.4cm length x 3.6cm width x 0.5cm depth; 20.923cm^2 area and 10.462cm^3 volume. There is Fat Layer (Subcutaneous Tissue) exposed. There is no tunneling or undermining noted. There is a medium amount of serous drainage noted. The wound margin is flat and intact. There is medium (34-66%) red granulation within the wound bed. There is a medium (34-66%) amount of necrotic tissue within the wound bed including Adherent Slough. The periwound skin appearance exhibited: Scarring, Dry/Scaly, Hemosiderin Staining. The periwound skin appearance did not exhibit: Callus, Crepitus, Excoriation, Induration, Rash, Maceration, Atrophie [place], Cyanosis, Ecchymosis, Mottled, Pallor, Rubor, Erythema. Periwound temperature was noted as No Abnormality. The periwound has tenderness on palpation. The wound is currently classified as a Grade 2 wound with etiology of Diabetic Wound/Ulcer of the Lower Extremity and is located on the Left,Medial Ankle. The wound measures 4.2cm length x 1.7cm width x 0.2cm depth; 5.608cm^2 area and 1.122cm^3 volume. There is Fat Layer (Subcutaneous Tissue) exposed. There is no tunneling or undermining noted. There is a medium amount of serous drainage noted. The wound margin is flat and intact. There is small (1-33%) red granulation within the wound bed. There is a large (67-100%) amount of necrotic tissue within the wound bed including Adherent Slough. The periwound skin appearance exhibited: Scarring, Hemosiderin Staining. The periwound skin appearance did not exhibit: Callus, Crepitus, Excoriation, Induration, Rash, Dry/Scaly, Maceration, Atrophie Ally, Cyanosis, Ecchymosis, Mottled, Pallor, Rubor, Erythema. Periwound temperature was noted as No Abnormality. The periwound has tenderness on palpation. Review Of Systems: Constitutional: No fever, no chills, no night sweats. No weight change. No weakness, fatigue or lethargy. No daytime sleepiness. Integumentary:reports wounds, no lesions. No rash or pruritus. No unusual bruising. No change in hair or nails. Physical exam: General Appearance: Alert, cooperative, no distress, appears stated age. Skin: See HPI all other Skin color, texture, tugor normal, no rashes or lesions. Neurologic: Alert oriented x3 Assessment: 1.Diabetes mellitus with other skin ulcer 2. 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 Non-pressure chronic ulcer of left ankle with fat layer exposed 5. Non-pressure chronic ulcer of left calf with fat layer exposed Plan: 1. Apply Santyl, saline moistened gauze, dry gauze, rolled gauze and secure with paper tape. Wrap with Tubigrip. Patient will follow-up in the wound care center on February 28 at 2:30 Thank you for the consultation any questions please contact the wound care center DNP note has been reviewed and discussed with Dr. Song and the impression and plan of care has been directed as dictated. Past Medical History Past Medical History: Coronary Artery Disease (CAD), Cancer, Heart Failure, Diabetes Mellitus, Deep Vein Thrombosis (DVT), Hyperlipidemia, Hypertension, Liver Disease, Myocardial Infarction (MA), Prostate Disorder, Renal Disease, Skin Disorder Additional Past Medical History / Comment(s): Ischemic cardiomyopathy, chronic CHF, 10/26/21 DVT L lower extremity, IDDM type II, neuropathy bilaterl legs/feet, L leg wounds, BPH, CKD stage III, hyperuricemia, hepatic steatosis, choledocholithiasis, eczema as child. Last Myocardial Infarction Date:: 02/12/2019 History of Any Multi-Drug Resistant Organisms: None Reported Past Surgical History: Heart Catheterization, Heart Catheterization With Stent, Orthopedic Surgery Additional Past Surgical History / Comment(s): skin cancer removed from nose August 2020 Past Anesthesia/Blood Transfusion Reactions: No Reported Reaction Date of Last Stent Placement:: 2012 Past Psychological History: Anxiety, Depression Smoking Status: Never smoker Past Alcohol Use History: Occasional Past Drug Use History: None Reported - Past Family History Mother Family Medical History: Coronary Artery Disease (CAD), Diabetes Mellitus, Myocardial Infarction (MA) Father Family Medical History: Diabetes Mellitus, Renal Disease family Additional Family Medical History / Comment(s): Mother with history of diabetes mellitus and CAD, father with history of heart disease and diabetes Medications and Allergies Home Medications Medication Instructions Recorded Confirmed Type Acetaminophen Tab [Tylenol] 650 mg PO Q6H PRN 08/22/21 02/19/22 History ALPRAZolam [Xanax] 0.25 mg PO BID #6 tab 12/06/21 02/19/22 Rx Apixaban [Eliquis] 5 mg PO BID #60 tab 12/06/21 02/19/22 Rx Nitroglycerin Sl Tabs [Nitrostat] 0.4 mg SL Q5M PRN #30 tab 12/06/21 02/19/22 Rx Spironolactone [Aldactone] 12.5 mg PO DAILY #30 tab 12/06/21 02/19/22 Rx Tamsulosin [Flomax] 0.4 mg PO HS #30 cap 12/06/21 02/19/22 Rx Aspirin 81 mg PO DAILY #90 tab 12/15/21 02/19/22 Rx Atorvastatin [Lipitor] 80 mg PO DAILY #30 tab 12/15/21 02/19/22 Rx FLUoxetine HCL [PROzac] 20 mg PO DAILY cap 12/15/21 02/19/22 Rx Isosorbide Mononitrate ER [Imdur] 30 mg PO DAILY #30 tab 12/15/21 02/19/22 Rx allopurinoL [Zyloprim] 100 mg PO DAILY tab 12/15/21 02/19/22 Rx Losartan Potassium [Cozaar] 25 mg PO DAILY 01/16/22 02/19/22 History Metoprolol Succinate (ER) [Toprol 50 mg PO DAILY 01/16/22 02/19/22 History XL] Torsemide [Demadex] 40 mg PO BID@0900,1600 #60 tab 01/18/22 02/19/22 Rx Collagenase [Santyl Ointment] 1 applic TOPICAL DAILY 02/07/22 02/19/22 History Ferrous Sulfate [Iron (65 MG 325 mg PO DAILY 02/07/22 02/19/22 History Elemental)] Allergies Allergy/AdvReac Type Severity Reaction Status Date / Time ciprofloxacin [From Cipro] Allergy Rash/Hives Verified 02/19/22 20:47 Physical Exam Vitals: Vital Signs Temp Pulse Pulse Resp BP BP Pulse Ox 02/20/22 11:05 71 20 125/60 95 02/20/22 08:24 97.6 F 90 16 146/91 93 L 02/20/22 03:46 98.0 F 88 18 129/78 99 02/20/22 02:00 16 02/20/22 00:38 97.8 F 87 16 137/90 93 L 02/19/22 22:15 85 18 106/58 97 02/19/22 20:05 78 02/19/22 20:00 73 18 129/80 97 02/19/22 19:50 74 02/19/22 19:40 74 02/19/22 19:33 79 18 129/80 99 02/19/22 16:00 97.8 F 79 23 120/69 96 Intake and Output 02/19/22 02/20/22 02/20/22 22:59 06:59 14:59 Output Total 200 Balance -200 Output: Emesis 200 Other: Voiding Method Toilet # Voids 1 # Bowel Movements 1 3 Weight 96.615 kg 96.8 kg Results CBC & Chem 7: 02/20/22 08:09 02/20/22 08:09 Labs: Abnormal Lab Results - Last 24 Hours (Table) 02/19/22 02/19/22 02/19/22 Range/Units 16:50 16:50 16:50 RBC 3.03 L (4.30-5.90) m/uL Hgb 9.5 L (13.0-17.5) gm/dL Hct 30.2 L (39.0-53.0) % MCHC (31.0-37.0) g/dL RDW 18.7 H (11.5-15.5) % Plt Count 135 L (150-450) k/uL Lymphocytes # 0.5 L (1.0-4.8) k/uL PT 18.1 H (9.0-12.0) sec INR 1.8 H (<1.2) APTT 39.7 H (22.0-30.0) sec Potassium 6.0 H (3.5-5.1) mmol/L Chloride (98-107) mmol/L Carbon Dioxide 15 L (22-30) mmol/L BUN 94 H (9-20) mg/dL Creatinine 3.65 H (0.66-1.25) mg/dL Glucose 188 H (74-99) mg/dL POC Glucose (mg/dL) (70-110) mg/dL 02/19/22 02/20/22 02/20/22 Range/Units 21:22 08:09 08:09 RBC 2.89 L (4.30-5.90) m/uL Hgb 8.8 L (13.0-17.5) gm/dL Hct 28.7 L (39.0-53.0) % MCHC 30.9 L (31.0-37.0) g/dL RDW 19.0 H (11.5-15.5) % Plt Count 119 L (150-450) k/uL Lymphocytes # 0.5 L (1.0-4.8) k/uL PT (9.0-12.0) sec INR (<1.2) APTT (22.0-30.0) sec Potassium 5.2 H 5.9 H (3.5-5.1) mmol/L Chloride 109 H (98-107) mmol/L Carbon Dioxide 16 L (22-30) mmol/L BUN 89 H (9-20) mg/dL Creatinine 3.51 H (0.66-1.25) mg/dL Glucose (74-99) mg/dL POC Glucose (mg/dL) (70-110) mg/dL 02/20/22 Range/Units 11:36 RBC (4.30-5.90) m/uL Hgb (13.0-17.5) gm/dL Hct (39.0-53.0) % MCHC (31.0-37.0) g/dL RDW (11.5-15.5) % Plt Count (150-450) k/uL Lymphocytes # (1.0-4.8) k/uL PT (9.0-12.0) sec INR (<1.2) APTT (22.0-30.0) sec Potassium (3.5-5.1) mmol/L Chloride (98-107) mmol/L Carbon Dioxide (22-30) mmol/L BUN (9-20) mg/dL Creatinine (0.66-1.25) mg/dL Glucose (74-99) mg/dL POC Glucose (mg/dL) 177 H (70-110) mg/dL Assessment and Plan (1) 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 of ankle Current Visit: No Status: Acute Code(s): I70.243 - ATHSCL [place] ARTERIES OF LEFT LEG W ULCERATION OF ANKLE SNOMED Code(s): 875746453 (2) 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 of calf Current Visit: No Status: Acute Code(s): I70.242 - ATHSCL [place] ARTERIES OF LEFT LEG W ULCERATION OF CALF SNOMED Code(s): 650069783 (3) Diabetes with skin ulcer Current Visit: No Status: Acute Code(s): E11.622 - TYPE 2 DIABETES MELLITUS WITH OTHER SKIN ULCER; L98.499 - NON-PRESSURE CHRONIC ULCER OF SKIN OF SITES W UNSP SEVERITY SNOMED Code(s): 04613222 (4) Non-pressure chronic ulcer of left ankle with fat layer exposed Current Visit: No Status: Acute Code(s): L97.322 - NON-PRESSURE CHRONIC ULCER OF LEFT ANKLE W FAT LAYER EXPOSED SNOMED Code(s): 64436016884272335 (5) Non-pressure chronic ulcer of left calf with fat layer exposed Current Visit: No Status: Acute Code(s): L97.222 - NON-PRESSURE CHRONIC ULCER OF LEFT CALF W FAT LAYER EXPOSED SNOMED Code(s): 89546764324507612
--- NOTE | 2022-02-20 12:11 | P.NPCON ---
History of Present Illness - Reason for Consult acute renal failure - History of Present Illness Patient is a 66-year-old male with history of hypertension, diabetes, hyperlipidemia and coronary artery disease. Patient also has cardiomyopathy with ejection fraction of 20-25%. He is admitted to the hospital with complaints of shortness of breath. Patient was noted to be hyperkalemic. Serum potassium was 5.9 and 6.0 mEq per liter. Serum creatinine was 3.5 and 3.6 mg/dL Previous creatinine was 2.6 on 02/08/2022 and a reading of 5.5 on 02/14/2022. No complaints of nausea or vomiting. Patient was maintained on Aldactone, Demadex and Cozaar at home prior to admission. Review of Systems As per HPI, other systems negative Past Medical History Past Medical History: Coronary Artery Disease (CAD), Cancer, Heart Failure, Diabetes Mellitus, Deep Vein Thrombosis (DVT), Hyperlipidemia, Hypertension, Liver Disease, Myocardial Infarction ([place]), Prostate Disorder, Renal Disease, Skin Disorder Additional Past Medical History / Comment(s): Ischemic cardiomyopathy, chronic CHF, 10/26/21 DVT L lower extremity, IDDM type II, neuropathy bilaterl legs/feet, L leg wounds, BPH, CKD stage III, hyperuricemia, hepatic steatosis, choledocholithiasis, eczema as child. Last Myocardial Infarction Date:: 02/12/2019 History of Any Multi-Drug Resistant Organisms: None Reported Past Surgical History: Heart Catheterization, Heart Catheterization With Stent, Orthopedic Surgery Additional Past Surgical History / Comment(s): skin cancer removed from nose August 2020 Past Anesthesia/Blood Transfusion Reactions: No Reported Reaction Date of Last Stent Placement:: 2012 Past Psychological History: Anxiety, Depression Smoking Status: Never smoker Past Alcohol Use History: Occasional Past Drug Use History: None Reported - Past Family History Mother Family Medical History: Coronary Artery Disease (CAD), Diabetes Mellitus, Myocardial Infarction ([place]) Father Family Medical History: Diabetes Mellitus, Renal Disease family Additional Family Medical History / Comment(s): Mother with history of diabetes mellitus and CAD, father with history of heart disease and diabetes Medications and Allergies Home Medications Medication Instructions Recorded Confirmed Type Acetaminophen Tab [Tylenol] 650 mg PO Q6H PRN 08/22/21 02/19/22 History ALPRAZolam [Xanax] 0.25 mg PO BID #6 tab 12/06/21 02/19/22 Rx Apixaban [Eliquis] 5 mg PO BID #60 tab 12/06/21 02/19/22 Rx Nitroglycerin Sl Tabs [Nitrostat] 0.4 mg SL Q5M PRN #30 tab 12/06/21 02/19/22 Rx Spironolactone [Aldactone] 12.5 mg PO DAILY #30 tab 12/06/21 02/19/22 Rx Tamsulosin [Flomax] 0.4 mg PO HS #30 cap 12/06/21 02/19/22 Rx Aspirin 81 mg PO DAILY #90 tab 12/15/21 02/19/22 Rx Atorvastatin [Lipitor] 80 mg PO DAILY #30 tab 12/15/21 02/19/22 Rx FLUoxetine HCL [PROzac] 20 mg PO DAILY cap 12/15/21 02/19/22 Rx Isosorbide Mononitrate ER [Imdur] 30 mg PO DAILY #30 tab 12/15/21 02/19/22 Rx allopurinoL [Zyloprim] 100 mg PO DAILY tab 12/15/21 02/19/22 Rx Losartan Potassium [Cozaar] 25 mg PO DAILY 01/16/22 02/19/22 History Metoprolol Succinate (ER) [Toprol 50 mg PO DAILY 01/16/22 02/19/22 History XL] Torsemide [Demadex] 40 mg PO BID@0900,1600 #60 tab 01/18/22 02/19/22 Rx Collagenase [Santyl Ointment] 1 applic TOPICAL DAILY 02/07/22 02/19/22 History Ferrous Sulfate [Iron (65 MG 325 mg PO DAILY 02/07/22 02/19/22 History Elemental)] Allergies Allergy/AdvReac Type Severity Reaction Status Date / Time ciprofloxacin [From Cipro] Allergy Rash/Hives Verified 02/19/22 20:47 Physical Exam Vitals: Vital Signs Temp Pulse Pulse Resp BP BP Pulse Ox 02/20/22 11:05 71 20 125/60 95 02/20/22 08:24 97.6 F 90 16 146/91 93 L 02/20/22 03:46 98.0 F 88 18 129/78 99 02/20/22 02:00 16 02/20/22 00:38 97.8 F 87 16 137/90 93 L 02/19/22 22:15 85 18 106/58 97 02/19/22 20:05 78 02/19/22 20:00 73 18 129/80 97 02/19/22 19:50 74 02/19/22 19:40 74 02/19/22 19:33 79 18 129/80 99 02/19/22 16:00 97.8 F 79 23 120/69 96 Intake and Output 02/19/22 02/20/22 02/20/22 22:59 06:59 14:59 Output Total 200 Balance -200 Output: Emesis 200 Other: Voiding Method Toilet # Voids 1 # Bowel Movements 1 3 Weight 96.615 kg 96.8 kg Patient is awake, comfortable not in any acute distress. Examination of the heart S1 and S2 Examination lungs bilateral breath sounds are heard Abdomen is soft nontender Examination lower extremities shows trace edema Results - Lab Results Most recent lab results Calcium 9.2 mg/dL (8.4-10.2) 02/20/22 08:09 02/20/22 08:09 02/20/22 08:09 Assessment and Plan Assessment: 1. Acute kidney injury, prerenal versus obstructive uropathy. Add IV fluids and check bladder scan and rule out urine retention. Continue to hold off on angiotensin receptor blockers 2. Hyperkalemia associated with acute kidney injury and metabolic acidosis and use of Aldactone with angiotensin receptor blockers as outpatient. Medications currently on hold. 3. Metabolic acidosis, anion gap secondary to acute kidney injury 4. Anemia rule out iron deficiency 5. CK D stage IV with previous creatinine ranging between 1.7-2 mg/dL with evidence of acute kidney injury on 1012 with serum creatinine as high as 5.5 mg/dL. Etiology diabetic kidney disease Plan: IV Lasix 1 Add low-dose IV bicarb drip Lokelma x1 Repeat potassium this evening Check bladder scan rule out urine retention Avoid nephrotoxic agents Repeat labs in a.m. Thank you for the consultation, we'll continue to follow the patient with you during his hospitalization
[2022-02-20] MEDS ORDERED: FUROSEMIDE 10 MG/ML 10 ML VIAL IV STA ×2 (12:13→23:15)
[2022-02-20] MEDS: COLLAGENASE 250 UNIT/GM OINTMENT 30 GM TUBE TOPICAL SCH (13:47)
--- NOTE | 2022-02-20 16:05 | US ---
EXAMINATION TYPE: US kidneys/renal and bladder DATE OF EXAM: 02/20/2022 COMPARISON: US dated 10/17/2021 CLINICAL HISTORY: fortino. EXAM MEASUREMENTS: Right Kidney: 10.9 x 5.8 x 5.9 cm Left Kidney: 12.7 x 6.1 x 6.0 cm Right Kidney: No hydronephrosis or masses seen Left Kidney: No hydronephrosis or masses seen Bladder: wnl Bilateral Jets seen: Yes Incidental note is made of free fluid around liver and gallstones. There is no evidence for hydronephrosis at this point in time. No nephrolithiasis is seen. No vonnie s are identified. The urinary bladder is anechoic. Bilateral ureteral jets are seen. IMPRESSION: 1. Cholelithiasis 2. Incidental note made of a small amount of fluid surrounding the liver. 3. No hydronephrosis or nephrolithiasis.
[2022-02-20 16:45] LABS: Glucose,Whole Blood 192 mg/dL (70-110)
[2022-02-20 19:21] LABS: Glucose,Whole Blood 284 mg/dL (70-110)
[2022-02-20] MEDS ORDERED: INSULIN REGULAR 100 UNIT/ML VIAL (IV) IV ONE ×2 (19:21→23:13)
[2022-02-20] MEDS: TAMSULOSIN 0.4 MG CAP.ER.24H PO SCH (20:06)
[2022-02-20] MEDS ORDERED: CALCIUM GLUCONATE IN NACL 1 GM in SALINE 1 100ML.BAG IVPB ONE ×2 (21:37→23:15)
[2022-02-20 23:06] LABS: Glucose,Whole Blood 204 mg/dL (70-110)
[2022-02-20] MEDS ORDERED: SODIUM BICARB 8.4% 50 ML SYR (1 MEQ/ML) IV STA (23:17)
[2022-02-21] MEDS: traMADol 50 MG TAB PO PRN ×2 (05:08→22:49)
[2022-02-21 05:54] LABS: Calcium 9.3 mg/dL (8.4-10.2); Potassium 5.4 mmol/L (3.5-5.1)
[2022-02-21] MEDS ORDERED: SODIUM ZIRCONIUM CYCLOSILICATE 10 GM PACKET PO ONE (06:05)
[2022-02-21 06:21] LABS: Glucose,Whole Blood 201 mg/dL (70-110)
[2022-02-21] MEDS: INSULIN ASPART (NovoLOG) 100 UNIT/ML VIAL SQ SCH ×3 (06:57→16:52)
[2022-02-21] MEDS: DEXTROSE 5% IN WATER 1,000 ML with SODIUM BICARB (1 MEQ/ML) 150 ML IV SCH (06:58)
[2022-02-21] MEDS: APIXABAN 5 MG TAB PO SCH ×2 (09:10→20:52)
[2022-02-21] MEDS: ALPRAZolam 0.25 MG TAB PO SCH ×2 (09:10→20:53)
[2022-02-21] MEDS: ATORVASTATIN 80 MG TAB PO SCH (09:10)
[2022-02-21] MEDS: allopurinoL 100 MG TAB PO SCH (09:10)
[2022-02-21] MEDS: METOPROLOL SUCCINATE (ER) 50 MG TAB.ER.24H PO SCH (09:10)
[2022-02-21] MEDS: FLUoxetine HCL 20 MG CAP PO SCH (09:10)
[2022-02-21] MEDS: ISOSORBIDE MONONITRATE ER 30 MG TAB.ER.24H PO SCH (09:11)
[2022-02-21] MEDS: ASPIRIN 81 MG PO SCH (09:11)
[2022-02-21] MEDS: COLLAGENASE 250 UNIT/GM OINTMENT 30 GM TUBE TOPICAL SCH (09:11)
[2022-02-21] MEDS ORDERED: ISOSORBIDE MONONITRATE ER 30 MG TAB.ER.24H PO STA (10:19)
[2022-02-21] MEDS ORDERED: FUROSEMIDE 10 MG/ML 10 ML VIAL IV STA (10:25)
--- NOTE | 2022-02-21 10:30 | P.PN ---
Subjective Progress Note Date: 02/21/22 HISTORY OF PRESENT ILLNESS: This is a 66-year-old male with a past medical history significant for chronic kidney disease, coronary artery disease, heart failure, hypertension, hyper lipidemia, severe ischemic cardiomyopathy (refusing AICD) , chronic left lower extremity ulcer, and DVT on anticoagulation. Patient follows in the office with Dr. Leblanc. We have been asked to see the patient in consultation for CKD. Patient examined at the bedside. 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 He reports he has been SOB for the past 4-5 days. He denies any chest pain or pressure. Creatinine has improved to 3.51. Patient states he was recommended to start hemodialysis in the past but he has refused and continues to refuse. * EKG reveals junctional rhythm with no clear cut p-waves with right bundle branch block * Chest xray cardiomegaly with suggestion of new posterior left basilar acute infiltrate. * Laboratory data: WBC 6.7. Hemoglobin 8.8. Platelet count 119. Sodium 139. Potassium 5.9. BUN 89. Creatinine 3.51. Troponin negative 1. ProBNP 23,500. * Current home cardiac medications include Eliquis 5mg BID, aspirin 81 mg daily, Lipitor 80 mg daily, Cozaar 25 mg daily, Imdur 30 mg daily, metoprolol succinate 50 mg daily, Aldactone 12.5 mg daily, and Demadex 40 mg twice a day * Most recent echocardiogram obtained in December 2021 revealed ejection fraction less than 15% * Cardiac catheterization history: March 2018 revealing RCA occluded in the midportion with collaterals, 40-50% stenosis of the LAD, moderate diffuse disease of the circumflex. 02/21/2022 Patient examined this morning at the bedside. Patient reports having an episode of chest pain this morning that radiated into his jaw. He states the pain lasted for about 5 minutes and then resolved. He currently denies chest pain or pressure. Denies SOB. EKG completed this morning reveals sinus mechanism with some AV disassociation. PHYSICAL EXAM: VITAL SIGNS: Reviewed. GENERAL: Well-developed in no acute distress. HEENT: Head is normocephalic. Pupils are equal, round. Sclerae anicteric. Mucous membranes of the mouth are moist. Neck supple. No JVD or thyromegaly LUNGS: Respirations even and unlabored. Lungs diminished to auscultation bila terally. HEART: Regular rate and rhythm. S1 and S2 heard. ABDOMEN: Soft. Nondistended. Nontender. EXTREMITIES: Normal range of motion. No clubbing or cyanosis. Peripheral pulses intact. Trace lower extremity edema. Chronic left lower extremity wound. Currently wrapped with a dressing. NEUROLOGIC: Awake and alert. Oriented x 3. ASSESSMENT: Shortness of breath Acute on chronic kidney disease Chronic heart failure with reduced EF, 15% Hyperkalemia History of DVT, on anticoagulation Coronary artery disease Severe ischemic cardiomyopathy, refusing AICD Hypertension Hyperlipidemia PLAN: No need to repeat echo as this was performed in December 2021 Hold nephrotoxic medications Discontinue metoprolol secondary to AV disassocation on EKG. Likely from hyperkalemia. Repeat EKG in AM. Increase Imdur to 60mg daily Obtain troponin Diuretics per nephrology. Patient to receive a one-time dose of 60 mg of Lasix per Dr. Landry. Continue to monitor kidney function. Nephrology following. Further recommendations pending patient course Nurse practitioner note has been reviewed by physician. Signing provider agrees with the documented findings, assessment, and plan of care. Objective - Vital Signs Vital signs: Vital Signs Temp 98.1 F 02/21/22 09:09 Pulse 83 02/21/22 09:09 Resp 22 02/21/22 09:09 BP 109/68 02/21/22 09:09 Pulse Ox 99 02/21/22 09:09 FiO2 Intake & Output 02/20/22 02/21/22 02/21/22 18:59 06:59 18:59 Intake Total 118 Output Total 650 950 Balance -650 -950 118 Weight 97 kg Intake: Oral 118 Output: Urine 450 950 Emesis 200 Other: Voiding Method Toilet Toilet Toilet Urinal Urinal Urinal # Bowel Movements 3 1 - Labs CBC & Chem 7: 02/20/22 08:09 02/21/22 05:27 Labs: Abnormal Lab Results - Last 24 Hours (Table) 02/20/22 02/20/22 02/20/22 Range/Units 11:36 15:53 16:43 Potassium 6.0 H (3.5-5.1) mmol/L Carbon Dioxide (22-30) mmol/L BUN (9-20) mg/dL Creatinine (0.66-1.25) mg/dL Glucose (74-99) mg/dL POC Glucose (mg/dL) 177 H 192 H (70-110) mg/dL 02/20/22 02/20/22 02/20/22 Range/Units 19:17 21:47 22:53 Potassium 6.0 H (3.5-5.1) mmol/L Carbon Dioxide (22-30) mmol/L BUN (9-20) mg/dL Creatinine (0.66-1.25) mg/dL Glucose (74-99) mg/dL POC Glucose (mg/dL) 284 H 204 H (70-110) mg/dL 02/21/22 02/21/22 Range/Units 05:27 06:20 Potassium 5.4 H (3.5-5.1) mmol/L Carbon Dioxide 18 L (22-30) mmol/L BUN 83 H (9-20) mg/dL Creatinine 3.57 H (0.66-1.25) mg/dL Glucose 180 H (74-99) mg/dL POC Glucose (mg/dL) 201 H (70-110) mg/dL
--- NOTE | 2022-02-21 11:18 | P.PN ---
Progress Note - Text Progress Note Date: 02/21/22 Chief Complaint: Distended abdomen This is a pleasant 66-year-old patient, follows with Dr. Mike Escobar. Chronic stable medical conditions include CAD with stent, diabetes, hypertension, hyperlipidemia anxiety. CAD, hyperuricemia, left leg DVT in October 2021, CHF EF 20 have 25% recently in the hospital from November 14 through November 21/2022 with leg wounds. seen by ID and vascular. Wound culture - stenotrophomonas maltophilia. Discharged on IV Fortaz. Subsequent admission discharged on Levaquin. Patient does follow the wound care center. Patient now presents with increasing shortness of breath. On walking a few steps. Increased abdominal distention. Minimal edema. Uses 2 pillows at night. Slight cough. Decrease appetite. No fever no chills. Tired. Patient found to have worsening renal function and increased BNP. She sent to the hospital by Dr. Richa Riggins/cardiology. Admitted with acute congestive heart exacerbation, ATN from cardiorenal syndrome, hyperkalemia. Nephrotoxic can potassium sparing medications held. Consultation to cardiology and nephrology. 02/20/2022: Patient put on a bicarbonate drip. Continue current medications. Add Lokelma eating some. Short of breath. Being followed by cardiology and nephrology. Wound care to follow. 02/21/2022: Tired. Short of breath. Received IV Lasix 60 mg times 1. nephrology. Have the patient sit up in a chair. We will try Lasix drip for 24 hours to see if that improves cardiorenal perfusion. Prognosis guarded. Active Medications Acetaminophen (Acetaminophen Tab 325 Mg Tab) 650 mg PO Q6H PRN PRN Reason: Pain or Fever > 100.5 Last Admin: 02/20/22 04:06 Dose: 650 mg Allopurinol (Allopurinol 100 Mg Tab) 100 mg PO DAILY [facility] Last Admin: 02/21/22 09:10 Dose: 100 mg Alprazolam (Alprazolam 0.25 Mg Tab) 0.25 mg PO BID [facility] Last Admin: 02/21/22 09:10 Dose: 0.25 mg Apixaban (Apixaban 5 Mg Tab) 5 mg PO BID [facility]; Protocol Last Admin: 02/21/22 09:10 Dose: 5 mg Aspirin (Aspirin 81 Mg) 81 mg PO DAILY [facility] Last Admin: 02/21/22 09:11 Dose: 81 mg Atorvastatin Calcium (Atorvastatin 80 Mg Tab) 80 mg PO DAILY [facility] Last Admin: 02/21/22 09:10 Dose: 80 mg Collagenase (Collagenase 250 Unit/Gm Ointment 30 Gm Tube) 1 applic TOPICAL DAILY [facility]; Protocol Last Admin: 02/21/22 09:11 Dose: 1 applic Fluoxetine HCl (Fluoxetine Hcl 20 Mg Cap) 20 mg PO DAILY [facility] Last Admin: 02/21/22 09:10 Dose: 20 mg Sodium Bicarbonate 150 ml/ (Dextrose/Water) 1,150 mls @ 40 mls/hr IV .Q24H [facility] Last Admin: 02/21/22 06:58 Dose: 50 mls/hr Insulin Aspart (Insulin Aspart (Novolog) 100 Unit/Ml Vial) 0 unit SQ AC-TID [facility]; Protocol Last Admin: 02/21/22 06:57 Dose: 4 unit Isosorbide Mononitrate (Isosorbide Mononitrate Er 60 Mg Tab.Er.24h) 60 mg PO DAILY [facility] Naloxone HCl (Naloxone 0.4 Mg/Ml 1 Ml Vial) 0.2 mg IV Q2M PRN PRN Reason: Opioid Reversal Prochlorperazine Edisylate (Prochlorperazine Inj 10 Mg/2 Ml Vial) 5 mg IVP Q8HR PRN PRN Reason: Nausea And Vomiting Last Admin: 02/20/22 10:20 Dose: 5 mg Tamsulosin HCl (Tamsulosin 0.4 Mg Cap.Er.24h) 0.4 mg PO HS [facility] Last Admin: 02/20/22 20:06 Dose: 0.4 mg Tramadol HCl (Tramadol 50 Mg Tab) 50 mg PO Q6HR PRN PRN Reason: Breakthrough Pain Last Admin: 02/21/22 05:08 Dose: 50 mg Past medical history to include: CAD with stent, diabetes, hypertension, hyperlipidemia, skin cancer on the nose in August 2020, anxiety, left leg common femoral DVT October 2021, hyperuricemia, hepatic steatosis, CHF EF 20-25% 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 Alcohol rarely. 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 Conjunctiva normal. HEENT: External appearance of nose and ears normal, oral cavity grossly normal. NECK: JVD possibly raised; masses not palpable. HEART: First and second heart sounds are normal; some edema. LUNGS: Respiratory rate increased; decreased breath sound . ABDOMEN: Soft, nontender, liver spleen not palpable, no masses palpable. PSYCH: [Alert and oriented x3; mood and affect slightly anxious LYMPHATICS: No lymph node palpable neck and axilla Musculoskeletal: Evidence of OA DERMATOLOGICAL: Dressing on the left leg on wounds INVESTIGATIONS, reviewed in the clinical context: February 21: Potassium 5.4 BUN 83 creatinine 3.57 February 20: WBC 6.7 hemoglobin 8.8 platelets 19 potassium 5.9 BUN 89 creatinine 3.51 WBC 6.5 hemoglobin 9.5 platelets 135 sodium 139 potassium 6 BUN 94 creatinine 3.65 Troponin I 0.012 ProBNP 31478 EKG tracing personally reviewed by me-sinus rhythm, right bundle branch block Chest x-ray film personally reviewed by me-cardiomegaly, venous cephalization and prominence February 08: Creatinine 2.6 Previous labs [October 2021] Uric acid 10.7 2-D echocardiogram: EF 20-25%. Left lower extremity venous Doppler: DVT in the common femoral vein. Gallbladder ultrasound: Gallbladder filled with stones. Possible hepatic steatosis. Arterial Doppler results discussed with Dr. Mike: No evidence of vascular compromise Assessment and plan: -Acute on chronic congestive heart failure from ischemic cardiomyopathy EF 20- 25%.: Slow to respond Start Lasix drip at 10 mg an hour. Discussed with cardiology.. Follow with cardiology/nephrology -Acute kidney injury/ATN from hepatorenal syndrome: Slow to respond Consult nephrology. Strict I's and O's - chronic multiple wounds painful left lower extremity left cough and left ankle likely from venous ulcers from recent DVT. Follow with wound care team -Chronic DVT of the left common femoral vein, in 10/16/2021 eliquis . -Ischemic cardiomyopathy, EF 20-25% Toprol-XL 50 mg daily. Aldactone hold. -Choledocholithiasis. Asymptomatic -Hyperkalemia secondary to chronic kidney disease and based also on Cozaar and Aldactone: Received calcium gluconate, dextrose, insulin, in the ER. Add Lokelma. Bicarbonate -Metabolic acidosis from renal failure Sodium bicarbonate drip -CAD with a history of stent Aspirin 81 mg daily, Lopressor -Diabetes mellitus type 2, chronically on insulin Follow Accu-Cheks and sliding scale insulin. 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 Creatinine 1. 96 on 10/26/2021 -Anxiety not otherwise specified Xanax 0.25 mg by mouth twice a day -Hyperuricemia allopurinol 100 mg daily -no code Continue sodium bicarbonate drip. Add Lasix drip 10 mg an hour. Hoping to improve cardiac output and renal perfusion. Oral prognosis guarded. Have the patient sit up in a chair. Follow with cardiology and nephrology.
[2022-02-21 12:06] LABS: Glucose,Whole Blood 271 mg/dL (70-110)
[2022-02-21] MEDS: FUROSEMIDE 100 MG in SODIUM CHLORIDE 0.9% 90 ML IV SCH ×2 (12:10→18:54)
--- NOTE | 2022-02-21 16:31 | P.PN ---
Subjective Patient is seen for follow-up for hyperkalemia and acute kidney injury on top of chronic kidney disease. Blood sugar has been running high which is staying around 190-200 mg/dL There is no evidence of urinary retention however post void residual was slightly on the higher side at one time yesterday Patient had good output with IV Lasix last night. Serum potassium has improved. Serum creatinine at 3.5 today. Patient is complaining of increased shortness of breath this morning. No chest pains, nausea or vomiting. Objective - Vital Signs Vital signs: Vital Signs Temp 98.1 F 02/21/22 09:09 Pulse 77 02/21/22 13:09 Resp 22 02/21/22 11:10 BP 119/69 02/21/22 11:10 Pulse Ox 96 02/21/22 11:10 FiO2 Intake & Output 02/20/22 02/21/22 02/21/22 18:59 06:59 18:59 Intake Total 476 Output Total 650 950 600 Balance -650 -950 -124 Weight 97 kg Intake: Oral 476 Output: Urine 450 950 600 Emesis 200 Other: Voiding Method Toilet Toilet Toilet Urinal Urinal Urinal # Bowel Movements 3 1 1 - Exam Patient is awake, comfortable, not in any acute distress Examination of the heart S1 and S2 Examination of the lungs bilateral breath sounds are heard, basal crackles Abdomen is soft nontender Examination of the lower extremities shows 1+ edema bilaterally [employer] exam grossly intact - Labs CBC & Chem 7: 02/20/22 08:09 02/21/22 05:27 Labs: Abnormal Lab Results - Last 24 Hours (Table) 02/20/22 02/20/22 02/20/22 Range/Units 15:53 16:43 19:17 Potassium 6.0 H (3.5-5.1) mmol/L Carbon Dioxide (22-30) mmol/L BUN (9-20) mg/dL Creatinine (0.66-1.25) mg/dL Glucose (74-99) mg/dL POC Glucose (mg/dL) 192 H 284 H (70-110) mg/dL 02/20/22 02/20/22 02/21/22 Range/Units 21:47 22:53 05:27 Potassium 6.0 H 5.4 H (3.5-5.1) mmol/L Carbon Dioxide 18 L (22-30) mmol/L BUN 83 H (9-20) mg/dL Creatinine 3.57 H (0.66-1.25) mg/dL Glucose 180 H (74-99) mg/dL POC Glucose (mg/dL) 204 H (70-110) mg/dL 02/21/22 02/21/22 Range/Units 06:20 12:04 Potassium (3.5-5.1) mmol/L Carbon Dioxide (22-30) mmol/L BUN (9-20) mg/dL Creatinine (0.66-1.25) mg/dL Glucose (74-99) mg/dL POC Glucose (mg/dL) 201 H 271 H (70-110) mg/dL Assessment and Plan Assessment: 1. Acute kidney injury, prerenal versus obstructive uropathy. Add IV fluids and check bladder scan and rule out urine retention. Continue to hold off on angiotensin receptor blockers 2. Hyperkalemia associated with acute kidney injury and metabolic acidosis and use of Aldactone with angiotensin receptor blockers as outpatient. Medications currently on hold. 3. Metabolic acidosis, anion gap secondary to acute kidney injury 4. Anemia rule out iron deficiency 5. CK D stage IV with previous creatinine ranging between 1.7-2 mg/dL with evidence of acute kidney injury on 1012 with serum creatinine as high as 5.5 mg/dL. Etiology diabetic kidney disease 6. Volume overload Plan: Decrease IV bicarb IV Lasix 1 Control blood sugars Repeat labs in a.m. Check chest x-ray Accurate I's and O Continue to monitor for urine retention as post void bladder scan was high at one time
[2022-02-21 16:39] LABS: Glucose,Whole Blood 237 mg/dL (70-110)
[2022-02-21 19:51] LABS: Glucose,Whole Blood 174 mg/dL (70-110)
[2022-02-21] MEDS: TAMSULOSIN 0.4 MG CAP.ER.24H PO SCH (20:52)
[2022-02-22 06:16] LABS: Glucose,Whole Blood 147 mg/dL (70-110)
[2022-02-22] MEDS: INSULIN ASPART (NovoLOG) 100 UNIT/ML VIAL SQ SCH ×3 (06:23→17:07)
[2022-02-22 08:54] LABS: Calcium 8.9 mg/dL (8.4-10.2)
[2022-02-22] MEDS: APIXABAN 5 MG TAB PO SCH ×2 (09:46→20:50)
[2022-02-22] MEDS: ALPRAZolam 0.25 MG TAB PO SCH ×2 (09:46→20:50)
[2022-02-22] MEDS: COLLAGENASE 250 UNIT/GM OINTMENT 30 GM TUBE TOPICAL SCH (09:46)
[2022-02-22] MEDS: ATORVASTATIN 80 MG TAB PO SCH (09:46)
[2022-02-22] MEDS: FLUoxetine HCL 20 MG CAP PO SCH (09:46)
[2022-02-22] MEDS: allopurinoL 100 MG TAB PO SCH (09:46)
[2022-02-22] MEDS: ASPIRIN 81 MG PO SCH (09:46)
[2022-02-22] MEDS: ISOSORBIDE MONONITRATE ER 60 MG TAB.ER.24H PO SCH (09:46)
--- NOTE | 2022-02-22 10:46 | P.PN ---
Subjective Progress Note Date: 02/22/22 patient has chronic renal failure and opted not to undergo dialysis. He continues to have episodes of junctional rhythm. He does not wish to have any invasive procedures including pacemaker. Once his renal status is stable we should be able to discharge him home and arrange follow-up With me. HISTORY OF PRESENT ILLNESS: This is a 66-year-old male with a past medical history significant for chronic kidney disease, coronary artery disease, heart failure, hypertension, hyperli pidemia, severe ischemic cardiomyopathy (refusing AICD) , chronic left lower extremity ulcer, and DVT on anticoagulation. Patient follows in the office with Dr. Leblanc. We have been asked to see the patient in consultation for CKD. Patient examined at the bedside. Patient presented to the hospital after he received a call from his acid tester office advising him to go to the ER as his creatinine was found to be 5.5. He reports he has been SOB for the past 4-5 days. He denies any chest pain or pressure. Creatinine has improved to 3.51. Patient states he was recommended to start hemodialysis in the past but he has refused and continues to refuse. * EKG reveals junctional rhythm with no clear cut p-waves with right bundle branch block * Chest xray cardiomegaly with suggestion of new posterior left basilar acute infiltrate. * Laboratory data: WBC 6.7. Hemoglobin 8.8. Platelet count 119. Sodium 139. Potassium 5.9. BUN 89. Creatinine 3.51. Troponin negative 1. ProBNP 23,500. * Current home cardiac medications include Eliquis 5mg BID, aspirin 81 mg daily, Lipitor 80 mg daily, Cozaar 25 mg daily, Imdur 30 mg daily, metoprolol succinate 50 mg daily, Aldactone 12.5 mg daily, and Demadex 40 mg twice a day * Most recent echocardiogram obtained in December 2021 revealed ejection fraction less than 15% * Cardiac catheterization history: March 2018 revealing RCA occluded in the midportion with collaterals, 40-50% stenosis of the LAD, moderate diffuse disease of the circumflex. 02/21/2022 Patient examined this morning at the bedside. Patient reports having an episode of chest pain this morning that radiated into his jaw. He states the pain lasted for about 5 minutes and then resolved. He currently denies chest pain or pressure. Denies SOB. EKG completed this morning reveals sinus mechanism with some AV disassociation. 02/22/2022 Patient examined this morning at the bedside. Patient denies any further episodes of chest pain. Denies SOB. EKG this morning reveals junctional rhythm, despite his potassium normalizing. Dr. Leblanc spoke to the patient yesterday regarding possible pacemaker and patient refusing. PHYSICAL EXAM: VITAL SIGNS: Reviewed. GENERAL: Well-developed in no acute distress. HEENT: Head is normocephalic. Pupils are equal, round. Sclerae anicteric. Mucous membranes of the mouth are moist. Neck supple. No JVD or thyromegaly LUNGS: Respirations even and unlabored. Lungs diminished to auscultation bilaterally. HEART: Regular rate and rhythm. S1 and S2 heard. ABDOMEN: Soft. Nondistended. Nontender. EXTREMITIES: Normal range of motion. No clubbing or cyanosis. Peripheral pulses intact. Trace lower extremity edema. Chronic left lower extremity wound. Currently wrapped with a dressing. NEUROLOGIC: Awake and alert. Oriented x 3. ASSESSMENT: Shortness of breath Acute on chronic kidney disease Chronic heart failure with reduced EF, 15% Hyperkalemia History of DVT, on anticoagulation Coronary artery disease Severe ischemic cardiomyopathy, refusing PPM/AICD Hypertension Hyperlipidemia Junctional rhythm PLAN: Continue to hold metoprolol at discharge Continue to hold Aldactone and Cozaar at discharge Diuretics per nephrology. Continue to monitor kidney function. Nephrology following. Repeat EKG tomorrow AM Further recommendations pending patient course Nurse practitioner note has been reviewed by physician. Signing provider agrees with the documented findings, assessment, and plan of care. Objective - Vital Signs Vital signs: Vital Signs Temp 98.1 F 02/22/22 08:00 Pulse 86 02/22/22 08:00 Resp 18 02/22/22 08:00 BP 146/67 02/22/22 08:00 Pulse Ox 99 02/22/22 08:00 FiO2 Intake & Output 02/21/22 02/22/22 02/22/22 18:59 06:59 18:59 Intake Total 661.333 38.833 Output Total 1050 800 Balance -388.667 -761.167 Weight 96.9 kg Intake: Intake, IV Titration 67.333 38.833 Amount Furosemide 100 mg In 67.333 38.833 Sodium Chloride 0.9% 90 ml @ 10 MG/HR 10 mls/hr IV .Q10H [facility] Rx#: [id number] Oral 594 Output: Urine 1050 800 Straight 150 Uretheral (Rivera) 600 Other: Voiding Method Toilet Indwelling Catheter Indwelling Catheter Urinal # Bowel Movements 1 - Labs CBC & Chem 7: 02/20/22 08:09 02/22/22 08:03 Labs: Abnormal Lab Results - Last 24 Hours (Table) 02/21/22 02/21/22 02/21/22 Range/Units 12:04 16:38 19:50 Carbon Dioxide (22-30) mmol/L BUN (9-20) mg/dL Creatinine (0.66-1.25) mg/dL Glucose (74-99) mg/dL POC Glucose (mg/dL) 271 H 237 H 174 H (70-110) mg/dL 02/22/22 02/22/22 Range/Units 06:15 08:03 Carbon Dioxide 19 L (22-30) mmol/L BUN 87 H (9-20) mg/dL Creatinine 3.42 H (0.66-1.25) mg/dL Glucose 146 H (74-99) mg/dL POC Glucose (mg/dL) 147 H (70-110) mg/dL
[2022-02-22 11:47] LABS: Glucose,Whole Blood 213 mg/dL (70-110)
--- NOTE | 2022-02-22 12:12 | P.PN ---
Progress Note - Text Progress Note Date: 02/22/22 Chief Complaint: Distended abdomen This is a pleasant 66-year-old patient, follows with Dr. Mike Escobar. Chronic stable medical conditions include CAD with stent, diabetes, hypertension, hyperlipidemia anxiety. CAD, hyperuricemia, left leg DVT in October 2021, CHF EF 20 have 25% recently in the hospital from November 14 through November 21/2022 with leg wounds. seen by ID and vascular. Wound culture - stenotrophomonas maltophilia. Discharged on IV Fortaz. Subsequent admission discharged on Levaquin. Patient does follow the wound care center. Patient now presents with increasing shortness of breath. On walking a few steps. Increased abdominal distention. Minimal edema. Uses 2 pillows at night. Slight cough. Decrease appetite. No fever no chills. Tired. Patient found to have worsening renal function and increased BNP. She sent to the hospital by Dr. Richa Riggins/cardiology. Admitted with acute congestive heart exacerbation, ATN from cardiorenal syndrome, hyperkalemia. Nephrotoxic can potassium sparing medications held. Consultation to cardiology and nephrology. 02/20/2022: Patient put on a bicarbonate drip. Continue current medications. Add Lokelma eating some. Short of breath. Being followed by cardiology and nephrology. Wound care to follow. 02/21/2022: Tired. Short of breath. Received IV Lasix 60 mg times 1. nephrology. Have the patient sit up in a chair. We will try Lasix drip for 24 hours to see if that improves cardiorenal perfusion. Prognosis guarded. 02/22/2022: Patient is put on Lasix drip yesterday. Discontinued this morning. About 1700 and negative fluid balance. Breathing a bit better. Decreased appetite. Encouraged to eat. Active Medications Acetaminophen (Acetaminophen Tab 325 Mg Tab) 650 mg PO Q6H PRN PRN Reason: Pain or Fever > 100.5 Last Admin: 02/20/22 04:06 Dose: 650 mg Allopurinol (Allopurinol 100 Mg Tab) 100 mg PO DAILY [facility] Last Admin: 02/22/22 09:46 Dose: 100 mg Alprazolam (Alprazolam 0.25 Mg Tab) 0.25 mg PO BID [facility] Last Admin: 02/22/22 09:46 Dose: 0.25 mg Apixaban (Apixaban 5 Mg Tab) 5 mg PO BID [facility]; Protocol Last Admin: 02/22/22 09:46 Dose: 5 mg Aspirin (Aspirin 81 Mg) 81 mg PO DAILY [facility] Last Admin: 02/22/22 09:46 Dose: 81 mg Atorvastatin Calcium (Atorvastatin 80 Mg Tab) 80 mg PO DAILY [facility] Last Admin: 02/22/22 09:46 Dose: 80 mg Collagenase (Collagenase 250 Unit/Gm Ointment 30 Gm Tube) 1 applic TOPICAL DAILY [facility]; Protocol Last Admin: 02/22/22 09:46 Dose: 1 applic Fluoxetine HCl (Fluoxetine Hcl 20 Mg Cap) 20 mg PO DAILY [facility] Last Admin: 02/22/22 09:46 Dose: 20 mg Sodium Bicarbonate 150 ml/ (Dextrose/Water) 1,150 mls @ 40 mls/hr IV .Q24H [facility] Last Admin: 02/21/22 06:58 Dose: 50 mls/hr Insulin Aspart (Insulin Aspart (Novolog) 100 Unit/Ml Vial) 0 unit SQ AC-TID [facility]; Protocol Last Admin: 02/22/22 06:23 Dose: Not Given Isosorbide Mononitrate (Isosorbide Mononitrate Er 60 Mg Tab.Er.24h) 60 mg PO DAILY [facility] Last Admin: 02/22/22 09:46 Dose: 60 mg Naloxone HCl (Naloxone 0.4 Mg/Ml 1 Ml Vial) 0.2 mg IV Q2M PRN PRN Reason: Opioid Reversal Prochlorperazine Edisylate (Prochlorperazine Inj 10 Mg/2 Ml Vial) 5 mg IVP Q8HR PRN PRN Reason: Nausea And Vomiting Last Admin: 02/20/22 10:20 Dose: 5 mg Tamsulosin HCl (Tamsulosin 0.4 Mg Cap.Er.24h) 0.4 mg PO HS [facility] Last Admin: 02/21/22 20:52 Dose: 0.4 mg Tramadol HCl (Tramadol 50 Mg Tab) 50 mg PO Q6HR PRN PRN Reason: Breakthrough Pain Last Admin: 02/21/22 22:49 Dose: 50 mg Past medical history to include: CAD with stent, diabetes, hypertension, hyperlipidemia, skin cancer on the nose in August 2020, anxiety, left leg common femoral DVT October 2021, hyperuricemia, hepatic steatosis, CHF EF 20-25% 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 Alcohol rarely. 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 Conjunctiva normal. HEENT: External appearance of nose and ears normal, oral cavity grossly normal. NECK: JVD possibly raised; masses not palpable. HEART: First and second heart sounds are normal; some edema. LUNGS: Respiratory rate increased; decreased breath sound . ABDOMEN: Soft, nontender, liver spleen not palpable, no masses palpable. PSYCH: [Alert and oriented x3; mood and affect slightly anxious LYMPHATICS: No lymph node palpable neck and axilla Musculoskeletal: Evidence of OA DERMATOLOGICAL: Dressing on the left leg on wounds INVESTIGATIONS, reviewed in the clinical context: February 22: Potassium 5 been 87 creatinine 3.4 to February 21: Potassium 5.4 BUN 83 creatinine 3.57 February 20: WBC 6.7 hemoglobin 8.8 platelets 19 potassium 5.9 BUN 89 creatinine 3.51 WBC 6.5 hemoglobin 9.5 platelets 135 sodium 139 potassium 6 BUN 94 creatinine 3.65 Troponin I 0.012 ProBNP 23290 EKG tracing personally reviewed by me-sinus rhythm, right bundle branch block Chest x-ray film personally reviewed by me-cardiomegaly, venous cephalization and prominence February 08: Creatinine 2.6 Previous labs [October 2021] Uric acid 10.7 2-D echocardiogram: EF 20-25%. Left lower extremity venous Doppler: DVT in the common femoral vein. Gallbladder ultrasound: Gallbladder filled with stones. Possible hepatic steatosis. Arterial Doppler results discussed with Dr. Mike: No evidence of vascular compromise Assessment and plan: -Acute on chronic congestive heart failure from ischemic cardiomyopathy EF 20- 25%.: Better Received Lasix drip.. Discussed with cardiology.. Follow with cardiology/nephrology -Acute kidney injury/ATN from hepatorenal syndrome: Slow to respond Follow with nephrology. Strict I's and O's - chronic multiple wounds painful left lower extremity left cough and left ankle likely from venous ulcers from recent DVT. Follow with wound care team/Dr. saleem -Chronic DVT of the left common femoral vein, in 10/16/2021 eliquis . -Ischemic cardiomyopathy, EF 20-25% Toprol-XL 50 mg daily. Aldactone hold. -Choledocholithiasis. Asymptomatic -Hyperkalemia secondary to chronic kidney disease and based also on Cozaar and Aldactone: Received calcium gluconate, dextrose, insulin, in the ER. He received Lokelma. Bicarbonate -Metabolic acidosis from renal failure Sodium bicarbonate drip -CAD with a history of stent Aspirin 81 mg daily, Lopressor -Diabetes mellitus type 2, chronically on insulin Follow Accu-Cheks and sliding scale insulin. -Hyperlipidemia Lipitor 80 mg daily -Essential hypertension Toprol-XL 50 mg -Chronic kidney disease stage III from diabetic nephropathy and hypertensive nep hrosclerosis Follow renal function. Creatinine 1. 96 on 10/26/2021 -Anxiety not otherwise specified Xanax 0.25 mg by mouth twice a day -Hyperuricemia allopurinol 100 mg daily -no code Patient had a good urine output from Lasix drip overnight.. Discontinued this morning. Encourage oral intake. Have the patient set up in a chair. Prognosis guarded.
[2022-02-22] MEDS: traMADol 50 MG TAB PO PRN ×2 (12:42→20:50)
[2022-02-22] MEDS: DEXTROSE 5% IN WATER 1,000 ML with SODIUM BICARB (1 MEQ/ML) 150 ML IV SCH (12:42)
--- NOTE | 2022-02-22 13:49 | P.PN ---
Subjective Patient is seen for follow-up for hyperkalemia and acute kidney injury on top of chronic kidney disease. Blood sugar has improved. Serum potassium has improved as well. Serum creatinine at 3.4 today. Status post Lasix drip. Shortness of breath has improved. Objective - Vital Signs Vital signs: Vital Signs Temp 98.1 F 02/22/22 08:00 Pulse 86 02/22/22 08:00 Resp 20 02/22/22 12:00 BP 139/74 02/22/22 12:00 Pulse Ox 98 02/22/22 12:00 FiO2 Intake & Output 02/21/22 02/22/22 02/22/22 18:59 06:59 18:59 Intake Total 661.333 38.833 Output Total 1050 800 Balance -388.667 -761.167 Weight 96.9 kg Intake: Intake, IV Titration 67.333 38.833 Amount Furosemide 100 mg In 67.333 38.833 Sodium Chloride 0.9% 90 ml @ 10 MG/HR 10 mls/hr IV .Q10H [facility] Rx#: [id number] Oral 594 Output: Urine 1050 800 Straight 150 Uretheral (Rivera) 600 Other: Voiding Method Toilet Indwelling Catheter Indwelling Catheter Urinal # Bowel Movements 1 - Exam Patient is awake, comfortable, not in any acute distress Examination of the heart S1 and S2 Examination of the lungs bilateral breath sounds are heard, basal crackles Abdomen is soft nontender Examination of the lower extremities shows 1+ edema bilaterally ORAL HEALTH THERAPIST exam grossly intact - Labs CBC & Chem 7: 02/20/22 08:09 02/22/22 08:03 Labs: Abnormal Lab Results - Last 24 Hours (Table) 02/21/22 02/21/22 02/22/22 Range/Units 16:38 19:50 06:15 Carbon Dioxide (22-30) mmol/L BUN (9-20) mg/dL Creatinine (0.66-1.25) mg/dL Glucose (74-99) mg/dL POC Glucose (mg/dL) 237 H 174 H 147 H (70-110) mg/dL 02/22/22 02/22/22 Range/Units 08:03 11:45 Carbon Dioxide 19 L (22-30) mmol/L BUN 87 H (9-20) mg/dL Creatinine 3.42 H (0.66-1.25) mg/dL Glucose 146 H (74-99) mg/dL POC Glucose (mg/dL) 213 H (70-110) mg/dL Assessment and Plan Assessment: 1. Acute kidney injury, cardiorenal with possible urine retention. Slowly improving. 2. Hyperkalemia associated with acute kidney injury and metabolic acidosis and use of Aldactone with angiotensin receptor blockers as outpatient. Medications currently on hold. 3. Metabolic acidosis, anion gap secondary to acute kidney injury 4. Anemia rule out iron deficiency 5. CK D stage IV with previous creatinine ranging between 1.7-2 mg/dL with evidence of acute kidney injury on 1012 with serum creatinine as high as 5.5 mg/dL. Etiology diabetic kidney disease 6. Volume overload Plan: DC Lasix drip Add oral Lasix Repeat labs in a.m. Continue with Rivera catheter for now
[2022-02-22 16:39] LABS: Glucose,Whole Blood 222 mg/dL (70-110)
[2022-02-22] MEDS: FUROSEMIDE 20 MG TAB PO SCH (17:45)
[2022-02-22 20:17] LABS: Glucose,Whole Blood 219 mg/dL (70-110)
[2022-02-22] MEDS: TAMSULOSIN 0.4 MG CAP.ER.24H PO SCH (20:51)
[2022-02-23 04:36] VITALS: RESP 20
[2022-02-23 06:04] LABS: Glucose,Whole Blood 187 mg/dL (70-110)
[2022-02-23] MEDS: INSULIN ASPART (NovoLOG) 100 UNIT/ML VIAL SQ SCH ×2 (06:41→12:04)
[2022-02-23] MEDS: allopurinoL 100 MG TAB PO SCH (09:03)
[2022-02-23] MEDS: ALPRAZolam 0.25 MG TAB PO SCH (09:03)
[2022-02-23] MEDS: APIXABAN 5 MG TAB PO SCH (09:03)
[2022-02-23] MEDS: ISOSORBIDE MONONITRATE ER 60 MG TAB.ER.24H PO SCH (09:03)
[2022-02-23] MEDS: ASPIRIN 81 MG PO SCH (09:03)
[2022-02-23] MEDS: FUROSEMIDE 20 MG TAB PO SCH (09:03)
[2022-02-23] MEDS: ATORVASTATIN 80 MG TAB PO SCH (09:03)
[2022-02-23] MEDS: FLUoxetine HCL 20 MG CAP PO SCH (09:03)
[2022-02-23] MEDS ORDERED: SODIUM BICARBONATE TAB 650 MG TAB PO SCH (10:00)
--- NOTE | 2022-02-23 11:28 | P.PN ---
Subjective Progress Note Date: 02/23/22 HISTORY OF PRESENT ILLNESS: This is a 66-year-old male with a past medical history significant for chronic kidney disease, coronary artery disease, heart failure, hypertension, hyper lipidemia, severe ischemic cardiomyopathy (refusing AICD) , chronic left lower extremity ulcer, and DVT on anticoagulation. Patient follows in the office with Dr. Leblanc. We have been asked to see the patient in consultation for CKD. Patient examined at the bedside. 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 He reports he has been SOB for the past 4-5 days. He denies any chest pain or pressure. Creatinine has improved to 3.51. Patient states he was recommended to start hemodialysis in the past but he has refused and continues to refuse. * EKG reveals junctional rhythm with no clear cut p-waves with right bundle branch block * Chest xray cardiomegaly with suggestion of new posterior left basilar acute infiltrate. * Laboratory data: WBC 6.7. Hemoglobin 8.8. Platelet count 119. Sodium 139. Potassium 5.9. BUN 89. Creatinine 3.51. Troponin negative 1. ProBNP 23,500. * Current home cardiac medications include Eliquis 5mg BID, aspirin 81 mg daily, Lipitor 80 mg daily, Cozaar 25 mg daily, Imdur 30 mg daily, metoprolol succinate 50 mg daily, Aldactone 12.5 mg daily, and Demadex 40 mg twice a day * Most recent echocardiogram obtained in December 2021 revealed ejection fraction less than 15% * Cardiac catheterization history: March 2018 revealing RCA occluded in the midportion with collaterals, 40-50% stenosis of the LAD, moderate diffuse disease of the circumflex. 02/21/2022 Patient examined this morning at the bedside. Patient reports having an episode of chest pain this morning that radiated into his jaw. He states the pain lasted for about 5 minutes and then resolved. He currently denies chest pain or pressure. Denies SOB. EKG completed this morning reveals sinus mechanism with some AV disassociation. 02/22/2022 Patient examined this morning at the bedside. Patient denies any further episodes of chest pain. Denies SOB. EKG this morning reveals junctional rhythm, despite his potassium normalizing. Dr. Leblanc spoke to the patient yesterday regarding possible pacemaker and patient refusing. 02/23/2022 Patient examined this morning at the bedside. He denies chest pain or pressure. Denies SOB. He feels like he is getting a cold. Vital signs are stable. EKG this morning reveals junctional rhythm. PHYSICAL EXAM: VITAL SIGNS: Reviewed. GENERAL: Well-developed in no acute distress. HEENT: Head is normocephalic. Pupils are equal, round. Sclerae anicteric. Mucous membranes of the mouth are moist. Neck supple. No JVD or thyromegaly LUNGS: Respirations even and unlabored. Lungs diminished to auscultation nathanael aterally. HEART: Regular rate and rhythm. S1 and S2 heard. ABDOMEN: Soft. Nondistended. Nontender. EXTREMITIES: Normal range of motion. No clubbing or cyanosis. Peripheral pulses intact. Trace lower extremity edema. Chronic left lower extremity wound. Currently wrapped with a dressing. NEUROLOGIC: Awake and alert. Oriented x 3. ASSESSMENT: Shortness of breath Acute on chronic kidney disease Chronic heart failure with reduced EF, 15% Hyperkalemia History of DVT, on anticoagulation Coronary artery disease Severe ischemic cardiomyopathy, refusing PPM/AICD Hypertension Hyperlipidemia Junctional rhythm PLAN: Continue to hold metoprolol at discharge Continue to hold Aldactone and Cozaar at discharge Diuretics per nephrology. Continue to monitor kidney function. Nephrology following. Patient remains in a junctional rhythm. Patient currently refusing permanent pacemaker/AICD implantation. Further recommendations pending patient course Nurse practitioner note has been reviewed by physician. Signing provider agrees with the documented findings, assessment, and plan of care. Objective - Vital Signs Vital signs: Vital Signs Temp 97.4 F L 02/23/22 08:00 Pulse 91 02/23/22 08:00 Resp 20 02/23/22 08:00 BP 108/56 02/23/22 08:00 Pulse Ox 96 02/23/22 08:00 FiO2 Intake & Output 02/22/22 02/23/22 02/23/22 18:59 06:59 18:59 Intake Total 180 118 Output Total 1450 Balance 180 -1450 118 Weight 97 kg Intake: Oral 180 118 Output: Urine 1450 Other: Voiding Method Indwelling Catheter Indwelling Catheter Indwelling Catheter - Labs CBC & Chem 7: 02/20/22 08:09 02/22/22 08:03 Labs: Abnormal Lab Results - Last 24 Hours (Table) 02/22/22 02/22/22 02/22/22 Range/Units 11:45 16:37 20:15 POC Glucose (mg/dL) 213 H 222 H 219 H (70-110) mg/dL 02/23/22 Range/Units 06:03 POC Glucose (mg/dL) 187 H (70-110) mg/dL
[2022-02-23 11:29] LABS: Glucose,Whole Blood 260 mg/dL (70-110)
[2022-02-23 11:42] VITALS: BP 121/73; PULSE 97; TEMP 98.1
--- NOTE | 2022-02-23 11:51 | P.PN ---
Subjective Patient is seen for follow-up for hyperkalemia and acute kidney injury on top of chronic kidney disease. Blood sugar has improved. Serum potassium has improved as well. Serum creatinine at 3.4 yesterday. Status post Lasix drip. Shortness of breath has improved. Patient wants to go home. Objective - Vital Signs Vital signs: Vital Signs Temp 98.1 F 02/23/22 11:41 Pulse 97 02/23/22 11:41 Resp 20 02/23/22 11:41 BP 121/73 02/23/22 11:41 Pulse Ox 93 L 02/23/22 11:41 FiO2 Intake & Output 02/22/22 02/23/22 02/23/22 18:59 06:59 18:59 Intake Total 180 118 Output Total 1450 Balance 180 -1450 118 Weight 97 kg Intake: Oral 180 118 Output: Urine 1450 Other: Voiding Method Indwelling Catheter Indwelling Catheter Indwelling Catheter - Exam Patient is awake, comfortable, not in any acute distress Examination of the heart S1 and S2 Examination of the lungs bilateral breath sounds are heard, basal crackles Abdomen is soft nontender Examination of the lower extremities shows no significant edema bilaterally 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 Acute kidney injury, cardiorenal with possible urine retention. Slowly i mproving. 2. Hyperkalemia associated with acute kidney injury and metabolic acidosis and use of Aldactone with angiotensin receptor blockers as outpatient. Medications currently on hold. 3. Metabolic acidosis, anion gap secondary to acute kidney injury, on bicarb drip 4. Anemia rule out iron deficiency 5. CK D stage IV with previous creatinine ranging between 1.7-2 mg/dL with evidence of acute kidney injury on 1012 with serum creatinine as high as 5.5 mg/dL. Etiology diabetic kidney disease 6. Volume overload Plan: DC bicarb drip Start oral sodium bicarb Okay for discharge from nephrology standpoint Follow-up in the office in one week for CK D. Add oral Lasix 60 mg by mouth twice a day.
[2022-02-23] MEDS: traMADol 50 MG TAB PO PRN (13:14)
[2022-02-23] MEDS: COLLAGENASE 250 UNIT/GM OINTMENT 30 GM TUBE TOPICAL SCH (13:15)
[2022-02-23 14:08] VITALS: BMI 30.7
--- NOTE | 2022-02-23 18:11 | P.DS ---
Providers Date of admission: 02/19/22 19:34 Expected date of discharge: 02/23/22 Attending physician: Derick Johnson Consults: 02/19/22 19:32 Consult Physician Urgent Consulting Provider: [facility] Consult Reason/Comments: chf Do you want consulting provider notified?: Yes Consult Physician Urgent Consulting Provider: Alysa Landry Consult Reason/Comments: CKD Do you want consulting provider notified?: Yes Primary care physician: Mike Escobar [facility] Course: Chief Complaint: Distended abdomen This is a pleasant 66-year-old patient, follows with Dr. Mike Escobar. Chronic stable medical conditions include CAD with stent, diabetes, hypertension, hyperlipidemia anxiety. CAD, hyperuricemia, left leg DVT in October 2021, CHF EF 20 have 25% recently in the hospital from November 14 through November 21/2022 with leg wounds. seen by ID and vascular. Wound culture - stenotrophomonas maltophilia. Discharged on IV Fortaz. Subsequent admission discharged on Levaquin. Patient does follow the wound care center. Patient now presents with increasing shortness of breath. On walking a few steps. Increased abdominal distention. Minimal edema. Uses 2 pillows at night. Slight cough. Decrease appetite. No fever no chills. Tired. Patient found to have worsening renal function and increased BNP. She sent to the hospital by Dr. Richa Riggins/cardiology. Admitted with acute congestive heart exacerbation, ATN from cardiorenal syndrome, hyperkalemia. Nephrotoxic can potassium sparing medications held. Consultation to cardiology and nephrology. 02/20/2022: Patient put on a bicarbonate drip. Continue current medications. Add Lokelma eating some. Short of breath. Being followed by cardiology and nephrology. Wound care to follow. 02/21/2022: Tired. Short of breath. Received IV Lasix 60 mg times 1. nephrology. Have the patient sit up in a chair. We will try Lasix drip for 24 hours to see if that improves cardiorenal perfusion. Prognosis guarded. 02/22/2022: Patient is put on Lasix drip yesterday. Discontinued this morning. About 1700 and negative fluid balance. Breathing a bit better. Decreased appetite. Encouraged to eat. 02/23/2022: Patient placed back on by mouth Lasix. Fluid restriction to continue. Patient understands all prognosis guarded. discharge. 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 Alcohol rarely. Currently moderate work rehab Family history: Diabetes, CAD Physical examination: VITAL SIGNS: 98.1, 97, 20, 121/73, 93 % on room air GENERAL: Reclining in bed, awake, pitting better EYES: Pupils equal. Conjunctiva normal. HEENT: External appearance of nose and ears normal, oral cavity grossly normal. NECK: JVD possibly raised; masses not palpable. HEART: First and second heart sounds are normal; some edema. LUNGS: Respiratory rate increased; decreased breath sound . ABDOMEN: Soft, nontender, liver spleen not palpable, no masses palpable. PSYCH: [Alert and oriented x3; mood and affect slightly anxious LYMPHATICS: No lymph node palpable neck and axilla Musculoskeletal: Evidence of OA DERMATOLOGICAL: Dressing on the left leg on wounds INVESTIGATIONS, reviewed in the clinical context: February 22: Potassium 5 been 87 creatinine 3.4 to February 21: Potassium 5.4 BUN 83 creatinine 3.57 February 20: WBC 6.7 hemoglobin 8.8 platelets 19 potassium 5.9 BUN 89 creatinine 3.51 WBC 6.5 hemoglobin 9.5 platelets 135 sodium 139 potassium 6 BUN 94 creatinine 3.65 Troponin I 0.012 ProBNP [id number] EKG tracing personally reviewed by me-sinus rhythm, right bundle branch block Chest x-ray film personally reviewed by me-cardiomegaly, venous cephalization and prominence February 08: Creatinine 2.6 Previous labs [October 2021] Uric acid 10.7 2-D echocardiogram: EF 20-25%. Left lower extremity venous Doppler: DVT in the common femoral vein. Gallbladder ultrasound: Gallbladder filled with stones. Possible hepatic steatosis. Arterial Doppler results discussed with Dr. Mike: No evidence of vascular compromise Assessment and plan: -Acute on chronic congestive heart failure from ischemic cardiomyopathy EF 20- 25%.: Better Received Lasix drip.. Discussed with cardiology.. Follow with cardiology/nephrology. Discharged on oral Lasix -Acute kidney injury/ATN from hepatorenal syndrome: Follow with nephrology. Strict I's and O's - chronic multiple wounds painful left lower extremity left cough and left ankle likely from venous ulcers from recent DVT. Follow with wound care team/Dr. saleem -Chronic DVT of the left common femoral vein, in 10/16/2021 eliquis . -Ischemic cardiomyopathy, EF 20-25% Toprol-XL 50 mg daily. Aldactone hold. -Choledocholithiasis. Asymptomatic -Hyperkalemia secondary to chronic kidney disease and based also on Cozaar and Aldactone: Better Received calcium gluconate, dextrose, insulin, in the ER. He received Lokelma. Bicarbonate -Metabolic acidosis from renal failure -CAD with a history of stent Aspirin 81 mg daily, Lopressor -Diabetes mellitus type 2, chronically on insulin Follow Accu-Cheks and sliding scale insulin. 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 Creatinine 1. 96 on 10/26/2021 -Anxiety not otherwise specified Xanax 0.25 mg by mouth twice a day -Hyperuricemia allopurinol 100 mg daily -no code Disposition: Home Patient Condition at Discharge: Fair Plan - Discharge Summary Discharge Rx Participant: No New Discharge Prescriptions: New Furosemide [Lasix] 60 mg PO BID@0900,1600 #60 tab Sodium Bicarbonate Tab 650 mg PO BID #60 tab Continue Tamsulosin [Flomax] 0.4 mg PO HS #30 cap FLUoxetine HCL [PROzac] 20 mg PO DAILY cap allopurinoL [Zyloprim] 100 mg PO DAILY tab Collagenase [Santyl Ointment] 1 applic TOPICAL DAILY Acetaminophen Tab [Tylenol] 650 mg PO Q6H PRN PRN Reason: Pain Or Fever > 100.5 Apixaban [Eliquis] 5 mg PO BID #60 tab Nitroglycerin Sl Tabs [Nitrostat] 0.4 mg SL Q5M PRN #30 tab PRN Reason: Chest Pain ALPRAZolam [Xanax] 0.25 mg PO BID #6 tab Aspirin 81 mg PO DAILY #90 tab Isosorbide Mononitrate ER [Imdur] 30 mg PO DAILY #30 tab Atorvastatin [Lipitor] 80 mg PO DAILY #30 tab Ferrous Sulfate [Iron (65 MG Elemental)] 325 mg PO DAILY Discontinued Losartan Potassium [Cozaar] 25 mg PO DAILY Spironolactone [Aldactone] 12.5 mg PO DAILY #30 tab Torsemide [Demadex] 40 mg PO BID@0900,1600 #60 tab Sacubitril/Valsartan [Entresto 24 mg-26 mg Tablet] 1 tab PO BID No Action Metoprolol Succinate (ER) [Toprol XL] 50 mg PO DAILY Discharge Medication List Acetaminophen Tab [Tylenol] 650 mg PO Q6H PRN 08/22/21 [History] ALPRAZolam [Xanax] 0.25 mg PO BID #6 tab 12/06/21 [Rx] Apixaban [Eliquis] 5 mg PO BID #60 tab 12/06/21 [Rx] Nitroglycerin Sl Tabs [Nitrostat] 0.4 mg SL Q5M PRN #30 tab 12/06/21 [Rx] Tamsulosin [Flomax] 0.4 mg PO HS #30 cap 12/06/21 [Rx] Aspirin 81 mg PO DAILY #90 tab 12/15/21 [Rx] Atorvastatin [Lipitor] 80 mg PO DAILY #30 tab 12/15/21 [Rx] FLUoxetine HCL [PROzac] 20 mg PO DAILY cap 12/15/21 [Rx] Isosorbide Mononitrate ER [Imdur] 30 mg PO DAILY #30 tab 12/15/21 [Rx] allopurinoL [Zyloprim] 100 mg PO DAILY tab 12/15/21 [Rx] Metoprolol Succinate (ER) [Toprol XL] 50 mg PO DAILY 01/16/22 [History] Collagenase [Santyl Ointment] 1 applic TOPICAL DAILY 02/07/22 [History] Ferrous Sulfate [Iron (65 MG Elemental)] 325 mg PO DAILY 02/07/22 [History] Furosemide [Lasix] 60 mg PO BID@0900,1600 #60 tab 02/23/22 [Rx] Sodium Bicarbonate Tab 650 mg PO BID #60 tab 02/23/22 [Rx] Follow up Appointment(s)/Referral(s): Alysa Landry MD [STAFF PHYSICIAN] - 04/04/22 11:40 am [facility], [NON-STAFF] - Mike Escobar MD [Primary Care Provider] - 03/01/22 1:00 pm Fred Leblanc MD [STAFF PHYSICIAN] - 03/09/22 2:30 pm Patient Instructions/Handouts: Fluid Restriction (DC) Activity/Diet/Wound Care/Special Instructions: fluid restrict 1800 cc/day f/u with wound care center Discharge Disposition: HOME SELF-CARE
== END 2022-02-23 15:45 | disposition home or self-care (01) | DRG 291 ==
LOC: EC 15:28 → 3SCARD 19:34
PROVIDERS: ADMIT Hospitalist; ATTEND Hospitalist
DX: I13.0 Hypertensive heart and chronic kidney disease with heart failure and stage 1 through stage 4 chronic kidney disease, or unspecified chronic kidney disease (principal); K76.7 Hepatorenal syndrome; N17.0 Acute kidney failure with tubular necrosis; I50.22 Chronic systolic (congestive) heart failure; L97.222 Non-pressure chronic ulcer of left calf with fat layer exposed; L97.322 Non-pressure chronic ulcer of left ankle with fat layer exposed; E87.20 Acidosis, unspecified; I82.512 Chronic embolism and thrombosis of left femoral vein; Z53.21 Procedure and treatment not carried out due to patient leaving prior to being seen by health care provider; E11.22 Type 2 diabetes mellitus with diabetic chronic kidney disease; E11.51 Type 2 diabetes mellitus with diabetic peripheral angiopathy without gangrene; E11.622 Type 2 diabetes mellitus with other skin ulcer; N18.30 Chronic kidney disease, stage 3 unspecified; Z79.4 Long term (current) use of insulin; E87.5 Hyperkalemia; I25.10 Atherosclerotic heart disease of native coronary artery without angina pectoris; I25.5 Ischemic cardiomyopathy; T50.0X5A Adverse effect of mineralocorticoids and their antagonists, initial encounter; X58.XXXA Exposure to other specified factors, initial encounter; D50.9 Iron deficiency anemia, unspecified; I45.10 Unspecified right bundle-branch block; K80.50 Calculus of bile duct without cholangitis or cholecystitis without obstruction; K76.0 Fatty (change of) liver, not elsewhere classified; E78.5 Hyperlipidemia, unspecified; R33.8 Other retention of urine; N40.0 Benign prostatic hyperplasia without lower urinary tract symptoms; E79.0 Hyperuricemia without signs of inflammatory arthritis and tophaceous disease; F32.A Depression, unspecified; F41.9 Anxiety disorder, unspecified; I25.2 Old myocardial infarction; Z95.5 Presence of coronary angioplasty implant and graft; Z88.1 Allergy status to other antibiotic agents; Z79.899 Other long term (current) drug therapy; Z79.01 Long term (current) use of anticoagulants; Z79.82 Long term (current) use of aspirin; Z85.828 Personal history of other malignant neoplasm of skin; Z83.3 Family history of diabetes mellitus; Z82.49 Family history of ischemic heart disease and other diseases of the circulatory system; Z86.718 Personal history of other venous thrombosis and embolism
CPT/HCPCS: 36415; 71046; 76770; 80048; 80053; 83880; 84132; 84484; 85025; 85610; 85730; 87324; 93005; 94644; 96361; 96374; 96375; 99285

== ENCOUNTER 2022-02-26 10:47 | Observation (INO) | payer MEDICARE ==
--- NOTE | 2022-02-26 11:46 | ED ---
Eye Problem HPI - General Chief complaint: Eye Problems Stated complaint: Eye/vision problems Time Seen by Provider: 02/26/22 11:30 Source: patient, RN notes reviewed Mode of arrival: ambulatory Limitations: no limitations - History of Present Illness Initial comments: This is a 66-year-old male who presents to the emergency department for visual changes and difficulty breathing. States that since yesterday, he has had black spots in his vision. Reports a history of blood clots behind his right eye, which she believes has been there for approximately 10 years. States that being on Eliquis causes him to bleed, and believes that this makes it worse. He is a somewhat poor historian, and his history is a bit confusing to understand. Denies any pain associated with the eye, but states that this is the worst his vision has ever been. She denies any trauma to the eye or foreign body sensation. Additionally, he was discharged from here 3 days ago for a CHF exacerbation. States that since discharge, he has had worsening shortness of breath and coughing, and is worried that he is getting worse again. Denies any associated chest pain. Denies any fevers, chills, sore throat, chest pain, palpitations, abdominal pain, nausea, vomiting, diarrhea, back pain, or headaches. MD chief complaint: vision change Onset/Timin -: days(s) Location: left eye Associated Symptoms: shortness of breath - Related Data Home Medications Medication Instructions Recorded Confirmed Acetaminophen Tab [Tylenol] 650 mg PO Q6H PRN 08/22/21 02/26/22 Metoprolol Succinate (ER) [Toprol 50 mg PO DAILY 01/16/22 02/26/22 XL] Collagenase [Santyl Ointment] 1 applic TOPICAL DAILY 02/07/22 02/26/22 Ferrous Sulfate [Iron (65 MG 325 mg PO DAILY 02/07/22 02/26/22 Elemental)] ALPRAZolam [Xanax] 0.25 mg PO BID PRN 02/26/22 02/26/22 Previous Rx's Medication Instructions Recorded Apixaban [Eliquis] 5 mg PO BID #60 tab 12/06/21 Nitroglycerin Sl Tabs [Nitrostat] 0.4 mg SL Q5M PRN #30 tab 12/06/21 Tamsulosin [Flomax] 0.4 mg PO HS #30 cap 12/06/21 Aspirin 81 mg PO DAILY #90 tab 12/15/21 Atorvastatin [Lipitor] 80 mg PO DAILY #30 tab 12/15/21 FLUoxetine HCL [PROzac] 20 mg PO DAILY cap 12/15/21 Isosorbide Mononitrate ER [Imdur] 30 mg PO DAILY #30 tab 12/15/21 allopurinoL [Zyloprim] 100 mg PO DAILY tab 12/15/21 Furosemide [Lasix] 60 mg PO BID@0900,1600 #60 tab 02/23/22 Sodium Bicarbonate Tab 650 mg PO BID #60 tab 02/23/22 Allergies Allergy/AdvReac Type Severity Reaction Status Date / Time ciprofloxacin [From Cipro] Allergy Rash/Hives Verified 02/26/22 13:27 Review of Systems ROS Statement: Those systems with pertinent positive or pertinent negative responses have been documented in the HPI. ROS Other: All systems not noted in ROS Statement are negative. Past Medical History Past Medical History: Coronary Artery Disease (CAD), Cancer, Heart Failure, Diabetes Mellitus, Deep Vein Thrombosis (DVT), Hyperlipidemia, Hypertension, Liver Disease, Myocardial Infarction (MT), Prostate Disorder, Renal Disease, Skin Disorder Additional Past Medical History / Comment(s): Ischemic cardiomyopathy, chronic CHF, 10/26/21 DVT L lower extremity, IDDM type II, neuropathy bilaterl legs/feet, L leg wounds, BPH, CKD stage III, hyperuricemia, hepatic steatosis, choledocholithiasis, eczema as child. Last Myocardial Infarction Date:: 02/12/2019 History of Any Multi-Drug Resistant Organisms: None Reported Past Surgical History: Heart Catheterization, Heart Catheterization With Stent, Orthopedic Surgery Additional Past Surgical History / Comment(s): skin cancer removed from nose August 2020 Past Anesthesia/Blood Transfusion Reactions: No Reported Reaction Date of Last Stent Placement:: 2012 Past Psychological History: Anxiety, Depression Smoking Status: Never smoker Past Alcohol Use History: Occasional Past Drug Use History: None Reported - Past Family History Mother Family Medical History: Coronary Artery Disease (CAD), Diabetes Mellitus, Myocardial Infarction (MT) Father Family Medical History: Diabetes Mellitus, Renal Disease family Additional Family Medical History / Comment(s): Mother with history of diabetes mellitus and CAD, father with history of heart disease and diabetes General Exam Limitations: no limitations General appearance: alert, in no apparent distress Head exam: Present: atraumatic Eye exam: Present: normal appearance, PERRL, EOMI. Absent: scleral icterus, conjunctival injection, periorbital swelling Neck exam: Present: normal inspection. Absent: tenderness, meningismus, lymphadenopathy Respiratory exam: Present: normal lung sounds bilaterally. Absent: respiratory distress, wheezes, rales, rhonchi, stridor Cardiovascular Exam: Present: regular rate, normal rhythm, normal heart sounds. Absent: systolic murmur, diastolic murmur, rubs, gallop, clicks Neurological exam: Present: alert, oriented X3, CN II-XII intact Psychiatric exam: Present: normal affect, normal mood Skin exam: Present: warm, dry, intact, normal color. Absent: rash Course Vital Signs 02/26/22 02/26/22 11:20 14:51 Temperature 97.5 F L Pulse Rate 85 80 Respiratory 22 16 Rate Blood Pressure 135/80 121/84 O2 Sat by Pulse 96 96 Oximetry Medical Decision Making - Medical Decision Making This is a 66-year-old male presents to the emergency department for shortness of breath and visual changes. Chest x-ray obtained revealing a possible pulmonary venous hypertension and interstitial edema. He was somewhat rotated during the exam, making optimal evaluation somewhat difficult. Computed tomography scan of the brain obtained due to the acute visual changes. This revealed no acute intracranial abnormalities. Additionally, we are unable to find previous documentation of blood clots in the brain or around the eyes, as the patient had mentioned. Demyelination disease is on the differential diagnosis per the radiologist. Patient's kidney function is still low on lab work, however it is improved from prior admission. Patient did test positive for COVID-19. Additionally, his BNP is elevated from prior admission at 39,100. This along with the interstitial edema suggests a CHF exacerbation. Patient will be admitted to medicine for acute CHF exacerbation. This case was discussed in detail with the attending ED physician. Presentation, findings, and treatment plan discussed in detail as well. - Lab Data Result diagrams: 02/26/22 12:15 02/26/22 12:15 Lab Results 02/26/22 02/26/22 02/26/22 Range/Units 12:15 12:15 12:15 WBC 9.6 (3.8-10.6) k/uL RBC 3.10 L (4.30-5.90) m/uL Hgb 9.6 L (13.0-17.5) gm/dL Hct 30.5 L (39.0-53.0) % MCV 98.4 (80.0-100.0) fL MCH 30.9 (25.0-35.0) pg MCHC 31.4 (31.0-37.0) g/dL RDW 19.4 H (11.5-15.5) % Plt Count 127 L (150-450) k/uL MPV 9.9 Neutrophils % 82 % Lymphocytes % 7 % Monocytes % 6 % Eosinophils % 4 % Basophils % 0 % Neutrophils # 7.9 H (1.3-7.7) k/uL Lymphocytes # 0.7 L (1.0-4.8) k/uL Monocytes # 0.5 (0-1.0) k/uL Eosinophils # 0.4 (0-0.7) k/uL Basophils # 0.0 (0-0.2) k/uL Hypochromasia Marked Poikilocytosis Slight Anisocytosis Slight Macrocytosis Slight PT 15.1 H (9.0-12.0) sec INR 1.5 H (<1.2) APTT 31.6 H (22.0-30.0) sec Sodium 138 (137-145) mmol/L Potassium 4.1 (3.5-5.1) mmol/L Chloride 99 (98-107) mmol/L Carbon Dioxide 24 (22-30) mmol/L Anion Gap 15 mmol/L BUN 88 H (9-20) mg/dL Creatinine 2.96 H (0.66-1.25) mg/dL Est GFR (CKD-EPI)AfAm 24 (>60 ml/min/1.73 sqM) Est GFR (CKD-EPI)NonAf 21 (>60 ml/min/1.73 sqM) Glucose 166 H (74-99) mg/dL Calcium 8.8 (8.4-10.2) mg/dL Total Bilirubin 1.5 H (0.2-1.3) mg/dL AST 33 (17-59) U/L ALT 16 (4-49) U/L Alkaline Phosphatase 57 (38-126) U/L Troponin I (0.000-0.034) ng/mL NT-Pro-B Natriuret Pep pg/mL Total Protein 7.0 (6.3-8.2) g/dL Albumin 4.1 (3.5-5.0) g/dL Coronavirus (PCR) (Not Detectd) Influenza Type A RNA (Not Detectd) Influenza Type B (PCR) (Not Detectd) 02/26/22 02/26/22 02/26/22 Range/Units 12:15 12:15 12:15 WBC (3.8-10.6) k/uL RBC (4.30-5.90) m/uL Hgb (13.0-17.5) gm/dL Hct (39.0-53.0) % MCV (80.0-100.0) fL MCH (25.0-35.0) pg MCHC (31.0-37.0) g/dL RDW (11.5-15.5) % Plt Count (150-450) k/uL MPV Neutrophils % % Lymphocytes % % Monocytes % % Eosinophils % % Basophils % % Neutrophils # (1.3-7.7) k/uL Lymphocytes # (1.0-4.8) k/uL Monocytes # (0-1.0) k/uL Eosinophils # (0-0.7) k/uL Basophils # (0-0.2) k/uL Hypochromasia Poikilocytosis Anisocytosis Macrocytosis PT (9.0-12.0) sec INR (<1.2) APTT (22.0-30.0) sec Sodium (137-145) mmol/L Potassium (3.5-5.1) mmol/L Chloride (98-107) mmol/L Carbon Dioxide (22-30) mmol/L Anion Gap mmol/L BUN (9-20) mg/dL Creatinine (0.66-1.25) mg/dL Est GFR (CKD-EPI)AfAm (>60 ml/min/1.73 sqM) Est GFR (CKD-EPI)NonAf (>60 ml/min/1.73 sqM) Glucose (74-99) mg/dL Calcium (8.4-10.2) mg/dL Total Bilirubin (0.2-1.3) mg/dL AST (17-59) U/L ALT (4-49) U/L Alkaline Phosphatase (38-126) U/L Troponin I 0.019 (0.000-0.034) ng/mL NT-Pro-B Natriuret Pep 83842 pg/mL Total Protein (6.3-8.2) g/dL Albumin (3.5-5.0) g/dL Coronavirus (PCR) (Not Detectd) Influenza Type A RNA Not Detected (Not Detectd) Influenza Type B (PCR) Not Detected (Not Detectd) 02/26/22 Range/Units 12:15 WBC (3.8-10.6) k/uL RBC (4.30-5.90) m/uL Hgb (13.0-17.5) gm/dL Hct (39.0-53.0) % MCV (80.0-100.0) fL MCH (25.0-35.0) pg MCHC (31.0-37.0) g/dL RDW (11.5-15.5) % Plt Count (150-450) k/uL MPV Neutrophils % % Lymphocytes % % Monocytes % % Eosinophils % % Basophils % % Neutrophils # (1.3-7.7) k/uL Lymphocytes # (1.0-4.8) k/uL Monocytes # (0-1.0) k/uL Eosinophils # (0-0.7) k/uL Basophils # (0-0.2) k/uL Hypochromasia Poikilocytosis Anisocytosis Macrocytosis PT (9.0-12.0) sec INR (<1.2) APTT (22.0-30.0) sec Sodium (137-145) mmol/L Potassium (3.5-5.1) mmol/L Chloride (98-107) mmol/L Carbon Dioxide (22-30) mmol/L Anion Gap mmol/L BUN (9-20) mg/dL Creatinine (0.66-1.25) mg/dL Est GFR (CKD-EPI)AfAm (>60 ml/min/1.73 sqM) Est GFR (CKD-EPI)NonAf (>60 ml/min/1.73 sqM) Glucose (74-99) mg/dL Calcium (8.4-10.2) mg/dL Total Bilirubin (0.2-1.3) mg/dL AST (17-59) U/L ALT (4-49) U/L Alkaline Phosphatase (38-126) U/L Troponin I (0.000-0.034) ng/mL NT-Pro-B Natriuret Pep pg/mL Total Protein (6.3-8.2) g/dL Albumin (3.5-5.0) g/dL Coronavirus (PCR) Detected A (Not Detectd) Influenza Type A RNA (Not Detectd) Influenza Type B (PCR) (Not Detectd) - EKG Data EKG Comments: Atrial fibrillation. Ventricular rate 67 bpm, QRS duration 122 ms, QTC 498 ms. - Radiology Data Radiology results: report reviewed, image reviewed Disposition Clinical Impression: COVID-19, CHF exacerbation Disposition: ADMITTED IP TO THIS HOSP Referrals: [facility], [NON-STAFF] - 02/27/22 Mike Escobar MD [Primary Care Provider] - 03/01/22 1:00 pm Forms: Outpatient Counseling
--- NOTE | 2022-02-26 12:09 | XR ---
EXAMINATION TYPE: XR chest 2V DATE OF EXAM: 02/26/2022 COMPARISON: Chest x-ray 02/19/2022 HISTORY: Difficulty breathing TECHNIQUE: Frontal and lateral views of the chest are obtained. FINDINGS: Patient is rotated. Heart is enlarged. No evident pneumothorax or pleural effusion. Inters titium appears prominently, lung volumes are low. IMPRESSION: Difficult to exclude pulmonary venous hypertension and interstitial edema, correlate. Ex am is rotated, consider follow-up PA and lateral chest x-ray when stable.
[2022-02-26 12:30] LABS: Anisocytosis Slight; Basophils % (A) 0 %; Eosinophils # (A) 0.4 k/uL (0-0.7); Eosinophils % (A) 4 %; HCT 30.5 % (39.0-53.0); HGB 9.6 gm/dL (13.0-17.5); Hypochromasia Marked; Lymphocytes # (A) 0.7 k/uL (1.0-4.8); Lymphocytes % (A) 7 %; MCH 30.9 pg (25.0-35.0); MCHC 31.4 g/dL (31.0-37.0); MCV 98.4 fL (80.0-100.0); Macrocytosis Slight; Mean Platelet Volume 9.9; Monocytes # (A) 0.5 k/uL (0-1.0); Monocytes % (A) 6 %; Neutrophils # (A) 7.9 k/uL (1.3-7.7); Neutrophils % (A) 82 %; Platelet Count 127 k/uL (150-450); Poikilocytosis Slight; RDW 19.4 % (11.5-15.5); WBC 9.6 k/uL (3.8-10.6)
[2022-02-26 12:43] LABS: INR 1.5 (<1.2); Partial Thromboplastin Time 31.6 sec (22.0-30.0); Prothrombin Time 15.1 sec (9.0-12.0)
--- NOTE | 2022-02-26 12:43 | CT ---
EXAMINATION TYPE: CT brain wo con DATE OF EXAM: 02/26/2022 COMPARISON: None HISTORY: Visual changes, LT eye, hx blood clots behind RT eye. CT DLP: 1173.[address] of the brain was performed. The ventricles, basal cisterns and sulci overlying the cerebral convexities demonstrate mild enlargem ent. There is no evidence for intracranial hemorrhage or sulcal effacement. There is decreased attenuation about the periventricular white matter and deep white matter of both c erebral hemispheres, compatible with chronic small vessel ischemia. Differential diagnosis does inclu de demyelination. No mass effects are seen.No midline shift. Osseous calvarium is intact. If symptoms persist consider MRI. IMPRESSION: 1. Age related atrophic and chronic small vessel ischemic change without acute intracranial process s een at this time.
[2022-02-26 12:49] LABS: Albumin 4.1 g/dL (3.5-5.0); Calcium 8.8 mg/dL (8.4-10.2); Total Bilirubin 1.5 mg/dL (0.2-1.3)
[2022-02-26 12:53] LABS: Potassium 4.1 mmol/L (3.5-5.1)
[2022-02-26] MEDS ORDERED: HYDROcodone/APAP 5-325MG 1 EACH TAB PO STA (14:12)
[2022-02-26] MEDS ORDERED: ONDANSETRON 4 MG/2 ML VIAL IVP PRN (14:57)
[2022-02-26] MEDS ORDERED: NALOXONE 0.4 MG/ML 1 ML VIAL IV PRN (14:57)
[2022-02-26] MEDS ORDERED: ACETAMINOPHEN TAB 325 MG TAB PO PRN (14:57)
[2022-02-26] MEDS ORDERED: ALPRAZolam 0.25 MG TAB PO PRN (14:59)
[2022-02-26] MEDS: FUROSEMIDE 20 MG TAB PO SCH (15:08)
--- NOTE | 2022-02-26 16:40 | P.HPIM ---
History of Present Illness H&P Date: 02/26/22 Chief Complaint: Dyspnea 66-year-old man with a medical history of ischemic cardiac myopathy with ejection fraction less than 15%, CAD, hypertension, hyperlipidemia, diabetes, left lower extremity DVT on anticoagulation with Eliquis, chronic kidney disease stage IV, iron deficiency anemia, left lower extremity wound/ ulcerations currently under treatment with wound care clinic presented for dyspnea. Patient is a frequent visitor for similar issues. Patient says that s kaylan he left the hospital a few days ago, he started to develop worsening dyspnea on exertion. Because of this he return to the hospital for further evaluation. He does complain of chills, denies fevers. Denies nausea, vomiting, chest pain, palpitations, syncope, presyncope, cough, abdominal pain, constipation, diarrhea, dysuria, dyschezia, numbness/weakness of extremities. In the emergency room, patient was afebrile, 135/80, heart rate 85, 96% on room air. CBC shows anemia down to 9.6,, cytopenia down to 127, otherwise unremarkable. Chemistries show a BUN of 88, creatinine of 2.96 which is improved from baseline. LFTs show a total bilirubin of 1.5, otherwise unremarkable. Troponin was 0.019. BNP was 39,100. Covid was positive. Coags show a PT of 15.1, INR 1.5, PTT of 31.6. Chest x-ray shows pulmonary venous hypertension and interstitial edema. Brain CT shows age-related atrophic changes. EKG shows atrial fibrillation with aberrant conduction, right ventricular hypertrophy. All Systems reviewed and pertinent positives and negatives noted in HPI, all other symptoms are negative Gen: in no apparent distress, resting comfortably in bed Eyes: PERRL, no scleral injection or icterus HENT: normocephalic, atraumatic, good hearing acuity, moist mucous membranes Neck: no tracheal deviation, full range of motion Resp: good air exchange, breathing comfortably with no accessory muscle use, no tactile fremitus, bilateral crackles CVS: good distal perfusion x 4, no pitting edema, irregular rhythm, normal rate GI: soft, NTTP, ND, no hepatosplenomegaly : no suprapubic tenderness, no CVAT, lucero catheter not present MSK: no clubbing, no cyanosis, no noted contractures of extremities Skin: no noted rashes, petechiae; temperature of skin is appropriate, left lower extremity wound Neuro: moving all extremities without signs of weakness, CN II-XII intact Psych: cooperative, euthymic mood, insight and judgment intact Labs and imaging as above Assessment/plan: Acute on chronic systolic heart failure exacerbation, ejection fraction less than 15% -Admit to observation, telemetry -Cardiology consult -No need to repeat echo, last was done in December of this year -Lasix -Strict ins and outs, daily weights Covid 19 -Symptoms are more likely from heart failure -Pulmonology consult Left lower extremity DVT on Apixiban -Patient would like to hold his blood thinner at this time, but counseled on importance Chronic left lower extremity wound -Wound care consult CAD Hypertension Hyperlipidemia Diabetes CKD stage IV Iron deficiency anemia -Home medications reviewed and reconciled Patient is full code DVT prophylaxis covered with Eliquis Past Medical History Past Medical History: Coronary Artery Disease (CAD), Cancer, Heart Failure, Diabetes Mellitus, Deep Vein Thrombosis (DVT), Hyperlipidemia, Hypertension, Liver Disease, Myocardial Infarction ([place]), Prostate Disorder, Renal Disease, Skin Disorder Additional Past Medical History / Comment(s): Ischemic cardiomyopathy, chronic CHF, 10/26/21 DVT L lower extremity, IDDM type II, neuropathy bilaterl legs/feet, L leg wounds, BPH, CKD stage III, hyperuricemia, hepatic steatosis, choledocholithiasis, eczema as child. Last Myocardial Infarction Date:: 02/12/2019 History of Any Multi-Drug Resistant Organisms: None Reported Past Surgical History: Heart Catheterization, Heart Catheterization With Stent, Orthopedic Surgery Additional Past Surgical History / Comment(s): skin cancer removed from nose August 2020 Past Anesthesia/Blood Transfusion Reactions: No Reported Reaction Date of Last Stent Placement:: 2012 Past Psychological History: Anxiety, Depression Smoking Status: Never smoker Past Alcohol Use History: Occasional Past Drug Use History: None Reported - Past Family History Mother Family Medical History: Coronary Artery Disease (CAD), Diabetes Mellitus, Myocardial Infarction ([place]) Father Family Medical History: Diabetes Mellitus, Renal Disease family Additional Family Medical History / Comment(s): Mother with history of diabetes mellitus and CAD, father with history of heart disease and diabetes Medications and Allergies Home Medications Medication Instructions Recorded Confirmed Type Acetaminophen Tab [Tylenol] 650 mg PO Q6H PRN 08/22/21 02/26/22 History Apixaban [Eliquis] 5 mg PO BID #60 tab 12/06/21 02/26/22 Rx Nitroglycerin Sl Tabs [Nitrostat] 0.4 mg SL Q5M PRN #30 tab 12/06/21 02/26/22 Rx Tamsulosin [Flomax] 0.4 mg PO HS #30 cap 12/06/21 02/26/22 Rx Aspirin 81 mg PO DAILY #90 tab 12/15/21 02/26/22 Rx Atorvastatin [Lipitor] 80 mg PO DAILY #30 tab 12/15/21 02/26/22 Rx FLUoxetine HCL [PROzac] 20 mg PO DAILY cap 12/15/21 02/26/22 Rx Isosorbide Mononitrate ER [Imdur] 30 mg PO DAILY #30 tab 12/15/21 02/26/22 Rx allopurinoL [Zyloprim] 100 mg PO DAILY tab 12/15/21 02/26/22 Rx Metoprolol Succinate (ER) [Toprol 50 mg PO DAILY 01/16/22 02/26/22 History XL] Collagenase [Santyl Ointment] 1 applic TOPICAL DAILY 02/07/22 02/26/22 History Ferrous Sulfate [Iron (65 MG 325 mg PO DAILY 02/07/22 02/26/22 History Elemental)] Furosemide [Lasix] 60 mg PO BID@0900,1600 #60 tab 02/23/22 02/26/22 Rx Sodium Bicarbonate Tab 650 mg PO BID #60 tab 02/23/22 02/26/22 Rx ALPRAZolam [Xanax] 0.25 mg PO BID PRN 02/26/22 02/26/22 History Allergies Allergy/AdvReac Type Severity Reaction Status Date / Time ciprofloxacin [From Cipro] Allergy Rash/Hives Verified 02/26/22 13:27 Physical Exam Osteopathic Statement: *. No significant issues noted on an osteopathic structural exam other than those noted in the History and Physical/Consult. Vitals: Vital Signs Temp Pulse Resp BP Pulse Ox 02/26/22 14:51 80 16 121/84 96 02/26/22 11:20 97.5 F L 85 22 135/80 96 Intake and Output 02/26/22 02/26/22 02/26/22 06:59 14:59 22:59 Other: Weight 97.522 kg Results CBC & Chem 7: 02/26/22 12:15 02/26/22 12:15 Labs: Abnormal Lab Results - Last 24 Hours (Table) 02/26/22 02/26/22 02/26/22 Range/Units 12:15 12:15 12:15 RBC 3.10 L (4.30-5.90) m/uL Hgb 9.6 L (13.0-17.5) gm/dL Hct 30.5 L (39.0-53.0) % RDW 19.4 H (11.5-15.5) % Plt Count 127 L (150-450) k/uL Neutrophils # 7.9 H (1.3-7.7) k/uL Lymphocytes # 0.7 L (1.0-4.8) k/uL PT 15.1 H (9.0-12.0) sec INR 1.5 H (<1.2) APTT 31.6 H (22.0-30.0) sec BUN 88 H (9-20) mg/dL Creatinine 2.96 H (0.66-1.25) mg/dL Glucose 166 H (74-99) mg/dL Total Bilirubin 1.5 H (0.2-1.3) mg/dL Coronavirus (PCR) (Not Detectd) 02/26/22 Range/Units 12:15 RBC (4.30-5.90) m/uL Hgb (13.0-17.5) gm/dL Hct (39.0-53.0) % RDW (11.5-15.5) % Plt Count (150-450) k/uL Neutrophils # (1.3-7.7) k/uL Lymphocytes # (1.0-4.8) k/uL PT (9.0-12.0) sec INR (<1.2) APTT (22.0-30.0) sec BUN (9-20) mg/dL Creatinine (0.66-1.25) mg/dL Glucose (74-99) mg/dL Total Bilirubin (0.2-1.3) mg/dL Coronavirus (PCR) Detected A (Not Detectd)
[2022-02-26] MEDS: HYDROcodone/APAP 5-325MG 1 EACH TAB PO PRN (19:05)
[2022-02-26] MEDS ORDERED: TAMSULOSIN 0.4 MG CAP.ER.24H PO SCH (21:00)
[2022-02-26] MEDS ORDERED: APIXABAN 5 MG TAB PO SCH (21:00)
[2022-02-26] MEDS ORDERED: traMADol 50 MG TAB PO STA (21:35)
[2022-02-26] MEDS: SODIUM BICARBONATE TAB 650 MG TAB PO SCH (22:11)
--- NOTE | 2022-02-26 22:49 | US ---
EXAMINATION TYPE: US venous doppler duplex UE RT DATE OF EXAM: 02/26/2022 COMPARISON: NONE CLINICAL HISTORY: RUE pain, r/o DVT. Right arm pain at elbow and below. Had IV 3 days ago. Hx of DVT in leg, not on blood thinners. SIDE PERFORMED: Right Right Arm: Limited due to patient not being able to move arm. Could not get the axilla to compress, b ut had good blood flow. ? DVT. Patient could not rotate arm to get the radial and ulnar veins IMPRESSION: Limited exam shows no evidence of deep vein thrombosis in the right arm. There is patency of the banner hial axillary and subclavian veins.
[2022-02-27] MEDS: HYDROcodone/APAP 5-325MG 1 EACH TAB PO PRN ×2 (02:02→09:31)
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
[2022-02-27 08:26] VITALS: BP 137/89; PULSE 101; RESP 22; TEMP 97.8
[2022-02-27] MEDS ORDERED: FLUoxetine HCL 20 MG CAP PO SCH (09:00)
[2022-02-27] MEDS ORDERED: ISOSORBIDE MONONITRATE ER 30 MG TAB.ER.24H PO SCH (09:00)
[2022-02-27] MEDS ORDERED: COLLAGENASE 250 UNIT/GM OINTMENT 30 GM TUBE TOPICAL SCH (09:00)
[2022-02-27] MEDS ORDERED: FERROUS SULFATE 325 MG TAB PO SCH (09:00)
[2022-02-27] MEDS ORDERED: allopurinoL 100 MG TAB PO SCH (09:00)
[2022-02-27] MEDS ORDERED: ATORVASTATIN 80 MG TAB PO SCH (09:00)
[2022-02-27] MEDS ORDERED: METOPROLOL SUCCINATE (ER) 50 MG TAB.ER.24H PO SCH (09:00)
[2022-02-27] MEDS ORDERED: ASPIRIN 81 MG PO SCH (09:00)
[2022-02-27] MEDS: FUROSEMIDE 20 MG TAB PO SCH (09:20)
[2022-02-27] MEDS: SODIUM BICARBONATE TAB 650 MG TAB PO SCH (09:31)
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
--- NOTE | 2022-02-27 13:48 | P.DS ---
Providers Date of admission: 02/26/22 14:57 Expected date of discharge: 02/27/22 Attending physician: Isidro Melara MD Consults: 02/26/22 16:11 Consult to Palliative Care Routine Consulting Provider: Tran Jung Consult Reason/Comments: Goals of Care, increase resources with outpatient palliaitve Do you want consulting provider notified?: Yes 02/26/22 16:39 Consult Physician Routine Consulting Provider: Sylvester Tian Consult Reason/Comments: COVID Do you want consulting provider notified?: Yes Primary care physician: Mike Escobar Hospital Course: Discharge Diagnosis: Acute on chronic systolic heart failure exacerbation Asymptomatic COVID-19 infection Lower extremity DVT on anticoagulation Blindness Chronic left lower extremity wound CAD Hypertension Dyslipidemia Diabetes CKD stage IV Iron deficiency anemia Hospital Course: 66-year-old male with history of ischemic cardiomyopathy presented with dyspnea. He is a frequent visitor for similar issues. He was recently discharged from the hospital, but claimed to have worsening shortness of breath at home. In the ED, patient was found to have asymptomatic COVID-19 infection. BNP was similar to previously. He was saturating well on room air. Chest x-ray showed pulmonary venous hypertension and interstitial edema. EKG showed rate controlled atrial fibrillation. Patient was seen by cardiology as well as pulmonology. No further recommendations were made in terms of his complex medical history. He was considered at his baseline. Patient is also refusing to take his anticoagulation due to concern of worsening blindness. He claims that he has had prior retinal hemorrhages, and does not see an telecasting technician. Patient was previously discharged on metoprolol lower dose of Imdur. Was previously recommended to increase Imdur and discontinue metoprolol. However, those changes were not made at prior discharge. We'll hold off making any changes at this point. Patient to be evaluated outpatient by cardiology and consider further medication changes. He was also seen by palliative care during this stay, and was recommended to possibly pursue hospice care. Patient seen and examined at bedside. Vital signs reviewed and stable. General: nontoxic, no distress, appears at stated age Derm: warm, dry Head: atraumatic, normocephalic, symmetric Eyes: EOMI, no lid lag, anicteric sclera Mouth: no lip lesion, mucus membranes moist Cardiovascular: S1S2 irreg, no murmur Lungs: CTA bilateral, no rhonchi, no rales , no accessory muscle use Abdominal: soft, nontender to palpation, no guarding, no appreciable organomegaly Ext: no gross muscle atrophy, 2+ peripheral edema, no contractures Neuro: CN II-XI grossly intact, no focal neuro deficits Psych: Alert, oriented, appropriate affect A total of 39 minutes of time were spent preparing this complex discharge summary. Patient was discharged on 02/27/22 at 11:16. Patient Condition at Discharge: Stable Plan - Discharge Summary New Discharge Prescriptions: New Isosorbide Mononitrate ER [Imdur] 60 mg PO DAILY 30 Days tab Continue Tamsulosin [Flomax] 0.4 mg PO HS #30 cap FLUoxetine HCL [PROzac] 20 mg PO DAILY cap allopurinoL [Zyloprim] 100 mg PO DAILY tab Metoprolol Succinate (ER) [Toprol XL] 50 mg PO DAILY Collagenase [Santyl Ointment] 1 applic TOPICAL DAILY Furosemide [Lasix] 60 mg PO BID@0900,1600 #60 tab Sodium Bicarbonate Tab 650 mg PO BID #60 tab Acetaminophen Tab [Tylenol] 650 mg PO Q6H PRN PRN Reason: Pain Or Fever > 100.5 Apixaban [Eliquis] 5 mg PO BID #60 tab Nitroglycerin Sl Tabs [Nitrostat] 0.4 mg SL Q5M PRN #30 tab PRN Reason: Chest Pain Aspirin 81 mg PO DAILY #90 tab Isosorbide Mononitrate ER [Imdur] 30 mg PO DAILY #30 tab Atorvastatin [Lipitor] 80 mg PO DAILY #30 tab Ferrous Sulfate [Iron (65 MG Elemental)] 325 mg PO DAILY ALPRAZolam [Xanax] 0.25 mg PO BID PRN PRN Reason: Anxiety Discharge Medication List Acetaminophen Tab [Tylenol] 650 mg PO Q6H PRN 08/22/21 [History] Apixaban [Eliquis] 5 mg PO BID #60 tab 12/06/21 [Rx] Nitroglycerin Sl Tabs [Nitrostat] 0.4 mg SL Q5M PRN #30 tab 12/06/21 [Rx] Tamsulosin [Flomax] 0.4 mg PO HS #30 cap 12/06/21 [Rx] Aspirin 81 mg PO DAILY #90 tab 12/15/21 [Rx] Atorvastatin [Lipitor] 80 mg PO DAILY #30 tab 12/15/21 [Rx] FLUoxetine HCL [PROzac] 20 mg PO DAILY cap 12/15/21 [Rx] Isosorbide Mononitrate ER [Imdur] 30 mg PO DAILY #30 tab 12/15/21 [Rx] allopurinoL [Zyloprim] 100 mg PO DAILY tab 12/15/21 [Rx] Metoprolol Succinate (ER) [Toprol XL] 50 mg PO DAILY 01/16/22 [History] Collagenase [Santyl Ointment] 1 applic TOPICAL DAILY 02/07/22 [History] Ferrous Sulfate [Iron (65 MG Elemental)] 325 mg PO DAILY 02/07/22 [History] Furosemide [Lasix] 60 mg PO BID@0900,1600 #60 tab 02/23/22 [Rx] Sodium Bicarbonate Tab 650 mg PO BID #60 tab 02/23/22 [Rx] ALPRAZolam [Xanax] 0.25 mg PO BID PRN 02/26/22 [History] Isosorbide Mononitrate ER [Imdur] 60 mg PO DAILY 30 Days tab 02/27/22 [Rx] Follow up Appointment(s)/Referral(s): [facility], [NON-STAFF] - 02/27/22 (AGENCY WILL CONTACT YOU.) Mike Escobar MD [Primary Care Provider] - 03/01/22 1:00 pm Fred Leblanc MD [STAFF PHYSICIAN] - 03/09/22 2:30 pm Patient Instructions/Handouts: Isosorbide Mononitrate (By mouth), Heart Failure (ER), A-fib (Atrial Fibrillation) (DC), COVID-19 (Coronavirus Disease 2019) (DC) Activity/Diet/Wound Care/Special Instructions: Please see your telecasting technician for your right eye blindness. Please see your PCP and command and control as soon as possible. Discharge/Stand Alone Forms: Outpatient Counseling Discharge Disposition: HOME SELF-CARE
== END 2022-02-27 13:27 | disposition home or self-care (01) ==
LOC: EC 10:47 → 6NMEDSUR 14:57
PROVIDERS: ADMIT Internal Medicine; ATTEND Internal Medicine
DX: I13.0 Hypertensive heart and chronic kidney disease with heart failure and stage 1 through stage 4 chronic kidney disease, or unspecified chronic kidney disease (principal); I50.23 Acute on chronic systolic (congestive) heart failure; U07.1 COVID-19; E11.22 Type 2 diabetes mellitus with diabetic chronic kidney disease; I25.10 Atherosclerotic heart disease of native coronary artery without angina pectoris; E78.5 Hyperlipidemia, unspecified; N18.4 Chronic kidney disease, stage 4 (severe); I25.5 Ischemic cardiomyopathy; I48.91 Unspecified atrial fibrillation; I25.82 Chronic total occlusion of coronary artery; I42.8 Other cardiomyopathies; H54.7 Unspecified visual loss; E11.42 Type 2 diabetes mellitus with diabetic polyneuropathy; N40.0 Benign prostatic hyperplasia without lower urinary tract symptoms; K76.0 Fatty (change of) liver, not elsewhere classified; D50.9 Iron deficiency anemia, unspecified; L97.929 Non-pressure chronic ulcer of unspecified part of left lower leg with unspecified severity; I87.8 Other specified disorders of veins; F32.A Depression, unspecified; F41.9 Anxiety disorder, unspecified; Z79.01 Long term (current) use of anticoagulants; Z79.82 Long term (current) use of aspirin; Z79.899 Other long term (current) drug therapy; Z88.1 Allergy status to other antibiotic agents; Z86.718 Personal history of other venous thrombosis and embolism; I25.2 Old myocardial infarction; Z85.828 Personal history of other malignant neoplasm of skin; Z95.5 Presence of coronary angioplasty implant and graft; Z87.828 Personal history of other (healed) physical injury and trauma; Z98.890 Other specified postprocedural states; Z83.3 Family history of diabetes mellitus; Z82.49 Family history of ischemic heart disease and other diseases of the circulatory system
CPT/HCPCS: 99285; 36415; 93005; 97162; 97535; 97166; 83880; 80053; 84484; 85025; 85610; 85730; 87502; 87635; 71046; 93971; 70450; G0378 ×2

== ENCOUNTER 2022-03-05 12:53 | Emergency (ER) | payer MEDICARE ==
[2022-03-05 13:03] VITALS: TEMP 97.3
[2022-03-05] MEDS ORDERED: SODIUM CHLORIDE 0.9% 500 ML 500 ML IV STA (13:22)
[2022-03-05 13:39] LABS: Anisocytosis Slight; Basophils % (A) 0 %; Eosinophils # (A) 0.3 k/uL (0-0.7); Eosinophils % (A) 2 %; HCT 29.6 % (39.0-53.0); HGB 9.5 gm/dL (13.0-17.5); Hypochromasia Marked; Lymphocytes # (A) 0.5 k/uL (1.0-4.8); Lymphocytes % (A) 4 %; MCH 31.1 pg (25.0-35.0); MCHC 32.1 g/dL (31.0-37.0); MCV 96.9 fL (80.0-100.0); Macrocytosis Slight; Mean Platelet Volume 9.2; Monocytes # (A) 0.5 k/uL (0-1.0); Monocytes % (A) 5 %; Neutrophils # (A) 9.9 k/uL (1.3-7.7); Neutrophils % (A) 88 %; Platelet Count 137 k/uL (150-450); Poikilocytosis Slight; RBC 3.06 m/uL (4.30-5.90); RDW 19.3 % (11.5-15.5); WBC 11.2 k/uL (3.8-10.6)
[2022-03-05 13:48] LABS: Albumin 3.1 g/dL (3.5-5.0); Calcium 8.3 mg/dL (8.4-10.2); Magnesium 1.8 mg/dL (1.6-2.3); Potassium 3.5 mmol/L (3.5-5.1); Total Bilirubin 0.9 mg/dL (0.2-1.3); Total Protein 5.9 g/dL (6.3-8.2)
--- NOTE | 2022-03-05 13:56 | ED ---
General Adult HPI - General Chief complaint: Weakness Stated complaint: weakness Time Seen by Provider: 03/05/22 13:00 Source: patient, EMS, RN notes reviewed, old records reviewed Mode of arrival: EMS Limitations: no limitations - History of Present Illness Initial comments: This is a 66-year-old male who presents emergency Department complaining of ge neralized weakness point where he cannot get around at home on his own. Patient states he had "a week ago and has not been eating or drinking well. Patient states he lives alone is unable to take care of himself at this point. Patient states he has a wound on his left leg which is been since October and he gets rewrapped every 2 days but has been smelling much more follow-up. Patient denies any fever chills per patient denies any redness going up the leg. Patient denies any chest pain difficulty breathing shortness breath per patient any abdominal pain. Patient denies nausea vomiting diarrhea. Patient may complaint is just generalized weakness to the point he is unable to care for himself - Related Data Home Medications Medication Instructions Recorded Confirmed Acetaminophen Tab [Tylenol] 650 mg PO Q6H PRN 08/22/21 03/05/22 Metoprolol Succinate (ER) [Toprol 50 mg PO DAILY 01/16/22 03/05/22 XL] Collagenase [Santyl Ointment] 1 applic TOPICAL DAILY 02/07/22 03/05/22 Ferrous Sulfate [Iron (65 MG 325 mg PO DAILY 02/07/22 03/05/22 Elemental)] ALPRAZolam [Xanax] 0.25 mg PO BID PRN 02/26/22 03/05/22 Previous Rx's Medication Instructions Recorded Apixaban [Eliquis] 5 mg PO BID #60 tab 12/06/21 Nitroglycerin Sl Tabs [Nitrostat] 0.4 mg SL Q5M PRN #30 tab 12/06/21 Tamsulosin [Flomax] 0.4 mg PO HS #30 cap 12/06/21 Aspirin 81 mg PO DAILY #90 tab 12/15/21 Atorvastatin [Lipitor] 80 mg PO DAILY #30 tab 12/15/21 FLUoxetine HCL [PROzac] 20 mg PO DAILY cap 12/15/21 Isosorbide Mononitrate ER [Imdur] 30 mg PO DAILY #30 tab 12/15/21 allopurinoL [Zyloprim] 100 mg PO DAILY tab 12/15/21 Furosemide [Lasix] 60 mg PO BID@0900,1600 #60 tab 02/23/22 Sodium Bicarbonate Tab 650 mg PO BID #60 tab 02/23/22 Sulfamethox-Tmp 800-160Mg [Bactrim 1 each PO Q12HR #20 tab 03/05/22 DS 800-160 mg] Allergies Allergy/AdvReac Type Severity Reaction Status Date / Time ciprofloxacin [From Cipro] Allergy Rash/Hives Verified 03/05/22 16:06 Review of Systems ROS Statement: Those systems with pertinent positive or pertinent negative responses have been documented in the HPI. ROS Other: All systems not noted in ROS Statement are negative. Past Medical History Past Medical History: Coronary Artery Disease (CAD), Cancer, Heart Failure, Diabetes Mellitus, Deep Vein Thrombosis (DVT), Hyperlipidemia, Hypertension, Liver Disease, Myocardial Infarction (AR), Prostate Disorder, Renal Disease, Skin Disorder Additional Past Medical History / Comment(s): Ischemic cardiomyopathy, chronic CHF, 10/26/21 DVT L lower extremity, IDDM type II, neuropathy bilaterl legs/feet, L leg wounds, BPH, CKD stage III, hyperuricemia, hepatic steatosis, choledocholithiasis, eczema as child. Last Myocardial Infarction Date:: 02/12/2019 History of Any Multi-Drug Resistant Organisms: None Reported Past Surgical History: Heart Catheterization, Heart Catheterization With Stent, Orthopedic Surgery Additional Past Surgical History / Comment(s): skin cancer removed from nose August 2020 Past Anesthesia/Blood Transfusion Reactions: No Reported Reaction Date of Last Stent Placement:: 2012 Past Psychological History: Anxiety, Depression Smoking Status: Never smoker Past Alcohol Use History: Occasional Past Drug Use History: None Reported - Past Family History Mother Family Medical History: Coronary Artery Disease (CAD), Diabetes Mellitus, Caesar cardial Infarction (AR) Father Family Medical History: Diabetes Mellitus, Renal Disease family Additional Family Medical History / Comment(s): Mother with history of diabetes mellitus and CAD, father with history of heart disease and diabetes General Exam - General Exam Comments Initial Comments: GENERAL: Patient is well-developed and well-nourished. Patient is nontoxic and well- hydrated and is in mild distress. ENT: Neck is soft and supple. No significant lymphadenopathy is noted. Oropharynx is clear. Moist mucous membranes. Neck has full range of motion without eliciting any pain. EYES: The sclera were anicteric and conjunctiva were pink and moist. Extraocular movements were intact and pupils were equal round and reactive to light. Eyelids were unremarkable. PULMONARY: Unlabored respirations. Good breath sounds bilaterally. No audible rales rh onchi or wheezing was noted. CARDIOVASCULAR: There is a regular rate and rhythm without any murmurs gallops or rubs. ABDOMEN: Soft and nontender with normal bowel sounds. SKIN: Skin is clear with no lesions or rashes and otherwise unremarkable. NEUROLOGIC: Patient is alert and oriented x3. Cranial nerves II through XII are grossly intact. Motor and sensory are also intact. Normal speech, volume and content. Symmetrical smile. MUSCULOSKELETAL: Normal extremities with adequate strength and full range of motion. There is a large open wound on the lateral side of his left lower leg and small wounds on the on the medial side of his left leg. Wounds have no erythema around them. Cultures will be done LYMPHATICS: No significant lymphadenopathy is noted PSYCHIATRIC: Normal psychiatric evaluation. Limitations: no limitations Course Vital Signs 03/05/22 03/05/22 12:59 18:57 Temperature 97.3 F L Pulse Rate 83 84 Respiratory 18 15 Rate Blood Pressure 124/79 124/75 O2 Sat by Pulse 95 100 Oximetry Medical Decision Making - Medical Decision Making EKG Systems Accountant by me. EKG shows a wide complex rhythm at 82 bpm with multiple PVCs. There is no obvious ST segment elevation. When compared to an old EKG it is very similar. Case management spoke with the patient and he was comfortable going home as long she got some home health assistance and she set that up and he was in agreement going home. - Lab Data Result diagrams: 03/05/22 13:29 03/05/22 13:29 Lab Results 03/05/22 03/05/22 03/05/22 Range/Units 13:29 13:29 13:29 WBC 11.2 H (3.8-10.6) k/uL RBC 3.06 L (4.30-5.90) m/uL Hgb 9.5 L (13.0-17.5) gm/dL Hct 29.6 L (39.0-53.0) % MCV 96.9 (80.0-100.0) fL MCH 31.1 (25.0-35.0) pg MCHC 32.1 (31.0-37.0) g/dL RDW 19.3 H (11.5-15.5) % Plt Count 137 L (150-450) k/uL MPV 9.2 Neutrophils % 88 % Lymphocytes % 4 % Monocytes % 5 % Eosinophils % 2 % Basophils % 0 % Neutrophils # 9.9 H (1.3-7.7) k/uL Lymphocytes # 0.5 L (1.0-4.8) k/uL Monocytes # 0.5 (0-1.0) k/uL Eosinophils # 0.3 (0-0.7) k/uL Basophils # 0.0 (0-0.2) k/uL Hypochromasia Marked Poikilocytosis Slight Anisocytosis Slight Macrocytosis Slight PT 16.0 H (9.0-12.0) sec INR 1.6 H (<1.2) APTT 34.9 H (22.0-30.0) sec Sodium (137-145) mmol/L Potassium (3.5-5.1) mmol/L Chloride (98-107) mmol/L Carbon Dioxide (22-30) mmol/L Anion Gap mmol/L BUN (9-20) mg/dL Creatinine (0.66-1.25) mg/dL Est GFR (CKD-EPI)AfAm (>60 ml/min/1.73 sqM) Est GFR (CKD-EPI)NonAf (>60 ml/min/1.73 sqM) Glucose (74-99) mg/dL Plasma Lactic Acid Dwain (0.7-2.0) mmol/L Calcium (8.4-10.2) mg/dL Magnesium (1.6-2.3) mg/dL Total Bilirubin (0.2-1.3) mg/dL AST (17-59) U/L ALT (4-49) U/L Alkaline Phosphatase (38-126) U/L Troponin I (0.000-0.034) ng/mL Total Protein (6.3-8.2) g/dL Albumin (3.5-5.0) g/dL Urine Color Yellow Urine Appearance Clear (Clear) Urine pH 5.0 (5.0-8.0) Ur Specific Yeso 1.014 (1.001-1.035) Urine Protein Negative (Negative) Urine Glucose (UA) Negative (Negative) Urine Ketones Negative (Negative) Urine Blood Negative (Negative) Urine Nitrite Negative (Negative) Urine Bilirubin Negative (Negative) Urine Urobilinogen <2.0 (<2.0) mg/dL Ur Leukocyte Esterase Negative (Negative) 03/05/22 03/05/22 03/05/22 Range/Units 13:29 13:29 13:29 WBC (3.8-10.6) k/uL RBC (4.30-5.90) m/uL Hgb (13.0-17.5) gm/dL Hct (39.0-53.0) % MCV (80.0-100.0) fL MCH (25.0-35.0) pg MCHC (31.0-37.0) g/dL RDW (11.5-15.5) % Plt Count (150-450) k/uL MPV Neutrophils % % Lymphocytes % % Monocytes % % Eosinophils % % Basophils % % Neutrophils # (1.3-7.7) k/uL Lymphocytes # (1.0-4.8) k/uL Monocytes # (0-1.0) k/uL Eosinophils # (0-0.7) k/uL Basophils # (0-0.2) k/uL Hypochromasia Poikilocytosis Anisocytosis Macrocytosis PT (9.0-12.0) sec INR (<1.2) APTT (22.0-30.0) sec Sodium 137 (137-145) mmol/L Potassium 3.5 (3.5-5.1) mmol/L Chloride 102 (98-107) mmol/L Carbon Dioxide 22 (22-30) mmol/L Anion Gap 13 mmol/L BUN 94 H (9-20) mg/dL Creatinine 2.91 H (0.66-1.25) mg/dL Est GFR (CKD-EPI)AfAm 24 (>60 ml/min/1.73 sqM) Est GFR (CKD-EPI)NonAf 21 (>60 ml/min/1.73 sqM) Glucose 168 H (74-99) mg/dL Plasma Lactic Acid Dwain 1.2 (0.7-2.0) mmol/L Calcium 8.3 L (8.4-10.2) mg/dL Magnesium 1.8 (1.6-2.3) mg/dL Total Bilirubin 0.9 (0.2-1.3) mg/dL AST 20 (17-59) U/L ALT 11 (4-49) U/L Alkaline Phosphatase 55 (38-126) U/L Troponin I 0.018 (0.000-0.034) ng/mL Total Protein 5.9 L (6.3-8.2) g/dL Albumin 3.1 L (3.5-5.0) g/dL Urine Color Urine Appearance (Clear) Urine pH (5.0-8.0) Ur Specific Yeso (1.001-1.035) Urine Protein (Negative) Urine Glucose (UA) (Negative) Urine Ketones (Negative) Urine Blood (Negative) Urine Nitrite (Negative) Urine Bilirubin (Negative) Urine Urobilinogen (<2.0) mg/dL Ur Leukocyte Esterase (Negative) Disposition Clinical Impression: Weakness, Chronic wound of extremity Disposition: HOME SELF-CARE Condition: Good Additional Instructions: Home health care will be following up with the patient at home to make sure he gets assistance he needs. Patient was started on Bactrim and follow-up with his primary medical care doctor for the cultures. Prescriptions: Sulfamethox-Tmp 800-160Mg [Bactrim DS 800-160 mg] 1 each PO Q12HR #20 tab Is patient prescribed a controlled substance at d/c from ED?: No Referrals: [facility], [NON-STAFF] - 1-2 days Care,[facility] [NON-STAFF] - 1-2 days Mike Escobar MD [Primary Care Provider] - 1-2 days Time of Disposition: 16:31
--- NOTE | 2022-03-05 14:19 | XR ---
EXAMINATION TYPE: XR chest 2V DATE OF EXAM: 03/05/2022 COMPARISON: 02/26/2022 TECHNIQUE: PA and lateral views submitted. HISTORY: Weakness FINDINGS: Heart is enlarged and has a coarsened interstitium. Arthropathy of the shoulders. Limited inspiration with no consolidation or pneumothorax. Hypertrophic degenerative changes. Diffuse interstitial patte rn. IMPRESSION: 1. Cardiomegaly with limited inspiration. Coarsened interstitium felt to be most typical reduced insp iration. No definite focal pneumonia.
[2022-03-05 14:37] LABS: INR 1.6 (<1.2); Partial Thromboplastin Time 34.9 sec (22.0-30.0)
[2022-03-05 16:15] LABS: Appearance,Urine Clear (Clear); Bilirubin,Urine Negative (Negative); Blood,Urine Negative (Negative); Color,Urine Yellow; Glucose,Urine (UA) Negative (Negative); Ketones,Urine Negative (Negative); Leukocyte Esterase,Urine Negative (Negative); Nitrite,Urine Negative (Negative); Protein,Urine Negative (Negative); Specific Gravity,Urine 1.014 (1.001-1.035); Urobilinogen,Urine <2.0 mg/dL (<2.0)
[2022-03-05 18:59] VITALS: BP 124/75; PULSE 84; RESP 15
== END 2022-03-05 19:20 | disposition home or self-care (01) ==
LOC: EC 12:53
DX: S81.802A Unspecified open wound, left lower leg, initial encounter (principal); R53.1 Weakness; I25.10 Atherosclerotic heart disease of native coronary artery without angina pectoris; E11.9 Type 2 diabetes mellitus without complications; Z86.718 Personal history of other venous thrombosis and embolism; E78.5 Hyperlipidemia, unspecified; I11.0 Hypertensive heart disease with heart failure; I25.2 Old myocardial infarction; F41.9 Anxiety disorder, unspecified; F32.A Depression, unspecified; Z88.1 Allergy status to other antibiotic agents; Z79.82 Long term (current) use of aspirin; Z79.899 Other long term (current) drug therapy; X58.XXXA Exposure to other specified factors, initial encounter
CPT/HCPCS: 36415; 71046; 80053; 81003; 83605; 83735; 84484; 85025; 85610; 85730; 87040; 87070; 87077; 87186; 87205; 93005; 96360; 96361; 99285

== ENCOUNTER 2022-03-10 19:55 | Inpatient (IN) | payer MEDICARE ==
[2022-03-10] MEDS ORDERED: ONDANSETRON 4 MG/2 ML VIAL IVP STA (20:12)
[2022-03-10] MEDS ORDERED: MORPHINE SULFATE 4 MG/ML SYRINGE IV STA (20:12)
--- NOTE | 2022-03-10 20:21 | ED ---
Weakness HPI - General Chief complaint: Weakness Stated complaint: weakness Time Seen by Provider: 03/10/22 20:06 Source: patient, RN notes reviewed Mode of arrival: EMS Limitations: no limitations - History of Present Illness Initial comments: This is a pleasant 66-year-old male presents emergency about multiple complaints. Patient complaining of generalized fatigue, weakness, cough, vomiting, left lower leg cellulitis which has been going on for several months. Patient also complaining of pain in his right forearm. Patient states she's had swelling and pain to his right arm for the last week. Patient actually states that he had a visiting diagnostic tests at his house today. It sounds as if they did an ultrasound. Patient currently on Bactrim DS twice daily for cellulitis of the leg. No known fever or chills., no changes in vision or hearing, no sore throat or difficulty with speech, no neck pain, no chest pain or shortness of breath, no abdominal pain, no nausea or vomiting, no changes in urination or bowel movements, no numbness or tingling,, no skin rashes or lesions. Past medical, surgical, social, and family history reviewed. MD Complaint: generalized weakness - Related Data Home Medications Medication Instructions Recorded Confirmed Acetaminophen Tab [Tylenol] 650 mg PO Q6H PRN 08/22/21 03/05/22 Metoprolol Succinate (ER) [Toprol 50 mg PO DAILY 01/16/22 03/05/22 XL] Collagenase [Santyl Ointment] 1 applic TOPICAL DAILY 02/07/22 03/05/22 Ferrous Sulfate [Iron (65 MG 325 mg PO DAILY 02/07/22 03/05/22 Elemental)] ALPRAZolam [Xanax] 0.25 mg PO BID PRN 02/26/22 03/05/22 Previous Rx's Medication Instructions Recorded Apixaban [Eliquis] 5 mg PO BID #60 tab 12/06/21 Nitroglycerin Sl Tabs [Nitrostat] 0.4 mg SL Q5M PRN #30 tab 12/06/21 Tamsulosin [Flomax] 0.4 mg PO HS #30 cap 12/06/21 Aspirin 81 mg PO DAILY #90 tab 12/15/21 Atorvastatin [Lipitor] 80 mg PO DAILY #30 tab 12/15/21 FLUoxetine HCL [PROzac] 20 mg PO DAILY cap 12/15/21 Isosorbide Mononitrate ER [Imdur] 30 mg PO DAILY #30 tab 12/15/21 allopurinoL [Zyloprim] 100 mg PO DAILY tab 12/15/21 Furosemide [Lasix] 60 mg PO BID@0900,1600 #60 tab 02/23/22 Sodium Bicarbonate Tab 650 mg PO BID #60 tab 02/23/22 Sulfamethox-Tmp 800-160Mg [Bactrim 1 each PO Q12HR #20 tab 03/05/22 DS 800-160 mg] Allergies Allergy/AdvReac Type Severity Reaction Status Date / Time ciprofloxacin [From Cipro] Allergy Rash/Hives Verified 03/10/22 20:03 Review of Systems ROS Statement: Those systems with pertinent positive or pertinent negative responses have been documented in the HPI. ROS Other: All systems not noted in ROS Statement are negative. Past Medical History Past Medical History: Coronary Artery Disease (CAD), Cancer, Heart Failure, Diabetes Mellitus, Deep Vein Thrombosis (DVT), Hyperlipidemia, Hypertension, Liver Disease, Myocardial Infarction ([place]), Prostate Disorder, Renal Disease, Sk in Disorder Additional Past Medical History / Comment(s): Ischemic cardiomyopathy, chronic CHF, 10/26/21 DVT L lower extremity, IDDM type II, neuropathy bilaterl legs/feet, L leg wounds, BPH, CKD stage III, hyperuricemia, hepatic steatosis, choledocholithiasis, eczema as child. Last Myocardial Infarction Date:: 02/12/2019 History of Any Multi-Drug Resistant Organisms: None Reported Past Surgical History: Heart Catheterization, Heart Catheterization With Stent, Orthopedic Surgery Additional Past Surgical History / Comment(s): skin cancer removed from nose August 2020 Past Anesthesia/Blood Transfusion Reactions: No Reported Reaction Date of Last Stent Placement:: 2012 Past Psychological History: Anxiety, Depression Smoking Status: Never smoker Past Alcohol Use History: Occasional Past Drug Use History: None Reported - Past Family History Mother Family Medical History: Coronary Artery Disease (CAD), Diabetes Mellitus, Myocardial Infarction ([place]) Father Family Medical History: Diabetes Mellitus, Renal Disease family Additional Family Medical History / Comment(s): Mother with history of diabetes mellitus and CAD, father with history of heart disease and diabetes General Exam - General Exam Comments Initial Comments: This is a deconditioned and pale appearing 66-year-old male who is in mild distress. Patient's capillary refill is about 4 seconds. Patient has pale appearance. No mottling. No respiratory distress. Limitations: no limitations General appearance: alert, in no apparent distress Head exam: Present: atraumatic, normocephalic, normal inspection Eye exam: Present: normal appearance, PERRL, EOMI. Absent: scleral icterus, conjunctival injection, periorbital swelling ENT exam: Present: normal exam, normal oropharynx, mucous membranes moist, normal external ear exam. Absent: mucous membranes dry Neck exam: Present: normal inspection, full ROM. Absent: tenderness, meningismus, lymphadenopathy Respiratory exam: Present: normal lung sounds bilaterally. Absent: respiratory distress, wheezes, rales, rhonchi, stridor, chest wall tenderness, accessory muscle use, decreased breath sounds, prolonged expiratory Cardiovascular Exam: Present: regular rate, normal rhythm, normal heart sounds. Absent: systolic murmur, diastolic murmur, rubs, gallop, clicks GI/Abdominal exam: Present: soft, normal bowel sounds. Absent: distended, tenderness, guarding, rebound, rigid Extremities exam: Present: full ROM, tenderness (Radial pulses 2+ out of 4. Edema extends from the right elbow down into the hand. ), normal capillary refill, other (Edema seems to spare the right upper arm. Patient's left lower leg has several ulcerations which appear to be chronic in nature. Exudative discharge. Peripheral pulses are faint with regards to bilateral pedal pulses. Range of motion is full in all major joints. Full in both feet, ankles.). Absent: pedal edema, joint swelling, calf tenderness Back exam: Present: normal inspection. Absent: rash noted Neurological exam: Present: alert, oriented X3, CN II-XII intact Psychiatric exam: Present: normal affect, normal mood Skin exam: Present: warm, dry, intact, normal color. Absent: rash Course Vital Signs 03/10/22 03/10/22 03/11/22 20:00 22:18 00:00 Temperature 97.9 F Pulse Rate 87 80 81 Respiratory 22 18 18 Rate Blood Pressure 119/80 119/80 122/78 O2 Sat by Pulse 96 98 98 Oximetry - Reevaluation(s) Reevaluation #1: 03/11/22 00:46 Medical record is reviewed Symptoms are unchanged Patient is informed of results and questions answered Patient in no distress - Consultations Consultation #1: Case discussed in detail with Dr. Johnson would subsequent admission of the patient for observation. Consultation for nephrology, discharge planning, and social work. Arterial Doppler ordered. We'll continue Bactrim DS for now. The case was discussed in detail with ED attending physician. Presentation, findings, treatment plan discussed in detail. Crown Buffer Dr. Enriquez EKG Findings - EKG Comments: EKG Findings:: EKG read by the ED attending physician reveals sinus rhythm with first-degree AV block, multiple PVCs, no specific acute changes when compared to previous study. QTC 522 ms. QRS duration 130 ms. Right bundle-branch block, left posterior fascicular block. Medical Decision Making - Medical Decision Making Patient presents with symptomology to include cough, weakness, right forearm pain with edema, and chronic wounds to the left lower leg. These wounds appear to be consistent with arterial insufficiency. - Lab Data Result diagrams: 03/10/22 20:40 03/10/22 20:40 Lab Results 03/10/22 03/10/22 03/10/22 Range/Units 20:40 20:40 20:40 WBC 9.0 (3.8-10.6) k/uL RBC 3.03 L (4.30-5.90) m/uL Hgb 9.4 L (13.0-17.5) gm/dL Hct 28.9 L (39.0-53.0) % MCV 95.4 (80.0-100.0) fL MCH 31.0 (25.0-35.0) pg MCHC 32.5 (31.0-37.0) g/dL RDW 19.0 H (11.5-15.5) % Plt Count 158 (150-450) k/uL MPV 9.6 Neutrophils % 90 % Lymphocytes % 4 % Monocytes % 4 % Eosinophils % 1 % Basophils % 0 % Neutrophils # 8.1 H (1.3-7.7) k/uL Lymphocytes # 0.4 L (1.0-4.8) k/uL Monocytes # 0.4 (0-1.0) k/uL Eosinophils # 0.1 (0-0.7) k/uL Basophils # 0.0 (0-0.2) k/uL Hypochromasia Marked Poikilocytosis Slight Anisocytosis Slight Macrocytosis Slight PT 15.4 H (9.0-12.0) sec INR 1.5 H (<1.2) APTT 34.4 H (22.0-30.0) sec Sodium 135 L (137-145) mmol/L Potassium 4.1 (3.5-5.1) mmol/L Chloride 95 L (98-107) mmol/L Carbon Dioxide 23 (22-30) mmol/L Anion Gap 17 mmol/L BUN 92 H (9-20) mg/dL Creatinine 2.75 H (0.66-1.25) mg/dL Est GFR (CKD-EPI)AfAm 26 (>60 ml/min/1.73 sqM) Est GFR (CKD-EPI)NonAf 23 (>60 ml/min/1.73 sqM) Glucose 183 H (74-99) mg/dL Plasma Lactic Acid Dwain (0.7-2.0) mmol/L Calcium 8.7 (8.4-10.2) mg/dL Phosphorus 4.0 (2.5-4.5) mg/dL Magnesium 2.0 (1.6-2.3) mg/dL Total Bilirubin 1.1 (0.2-1.3) mg/dL AST 30 (17-59) U/L ALT 13 (4-49) U/L Alkaline Phosphatase 61 (38-126) U/L Troponin I (0.000-0.034) ng/mL NT-Pro-B Natriuret Pep pg/mL Total Protein 6.9 (6.3-8.2) g/dL Albumin 3.7 (3.5-5.0) g/dL Coronavirus (PCR) (Not Detectd) Influenza Type A RNA (Not Detectd) Influenza Type B (PCR) (Not Detectd) 03/10/22 03/10/22 03/10/22 Range/Units 20:40 20:40 20:40 WBC (3.8-10.6) k/uL RBC (4.30-5.90) m/uL Hgb (13.0-17.5) gm/dL Hct (39.0-53.0) % MCV (80.0-100.0) fL MCH (25.0-35.0) pg MCHC (31.0-37.0) g/dL RDW (11.5-15.5) % Plt Count (150-450) k/uL MPV Neutrophils % % Lymphocytes % % Monocytes % % Eosinophils % % Basophils % % Neutrophils # (1.3-7.7) k/uL Lymphocytes # (1.0-4.8) k/uL Monocytes # (0-1.0) k/uL Eosinophils # (0-0.7) k/uL Basophils # (0-0.2) k/uL Hypochromasia Poikilocytosis Anisocytosis Macrocytosis PT (9.0-12.0) sec INR (<1.2) APTT (22.0-30.0) sec Sodium (137-145) mmol/L Potassium (3.5-5.1) mmol/L Chloride (98-107) mmol/L Carbon Dioxide (22-30) mmol/L Anion Gap mmol/L BUN (9-20) mg/dL Creatinine (0.66-1.25) mg/dL Est GFR (CKD-EPI)AfAm (>60 ml/min/1.73 sqM) Est GFR (CKD-EPI)NonAf (>60 ml/min/1.73 sqM) Glucose (74-99) mg/dL Plasma Lactic Acid Dwain 2.0 (0.7-2.0) mmol/L Calcium (8.4-10.2) mg/dL Phosphorus (2.5-4.5) mg/dL Magnesium (1.6-2.3) mg/dL Total Bilirubin (0.2-1.3) mg/dL AST (17-59) U/L ALT (4-49) U/L Alkaline Phosphatase (38-126) U/L Troponin I 0.019 (0.000-0.034) ng/mL NT-Pro-B Natriuret Pep 21735 pg/mL Total Protein (6.3-8.2) g/dL Albumin (3.5-5.0) g/dL Coronavirus (PCR) (Not Detectd) Influenza Type A RNA (Not Detectd) Influenza Type B (PCR) (Not Detectd) 03/10/22 03/10/22 Range/Units 21:35 21:35 WBC (3.8-10.6) k/uL RBC (4.30-5.90) m/uL Hgb (13.0-17.5) gm/dL Hct (39.0-53.0) % MCV (80.0-100.0) fL MCH (25.0-35.0) pg MCHC (31.0-37.0) g/dL RDW (11.5-15.5) % Plt Count (150-450) k/uL MPV Neutrophils % % Lymphocytes % % Monocytes % % Eosinophils % % Basophils % % Neutrophils # (1.3-7.7) k/uL Lymphocytes # (1.0-4.8) k/uL Monocytes # (0-1.0) k/uL Eosinophils # (0-0.7) k/uL Basophils # (0-0.2) k/uL Hypochromasia Poikilocytosis Anisocytosis Macrocytosis PT (9.0-12.0) sec INR (<1.2) APTT (22.0-30.0) sec Sodium (137-145) mmol/L Potassium (3.5-5.1) mmol/L Chloride (98-107) mmol/L Carbon Dioxide (22-30) mmol/L Anion Gap mmol/L BUN (9-20) mg/dL Creatinine (0.66-1.25) mg/dL Est GFR (CKD-EPI)AfAm (>60 ml/min/1.73 sqM) Est GFR (CKD-EPI)NonAf (>60 ml/min/1.73 sqM) Glucose (74-99) mg/dL Plasma Lactic Acid Dwain (0.7-2.0) mmol/L Calcium (8.4-10.2) mg/dL Phosphorus (2.5-4.5) mg/dL Magnesium (1.6-2.3) mg/dL Total Bilirubin (0.2-1.3) mg/dL AST (17-59) U/L ALT (4-49) U/L Alkaline Phosphatase (38-126) U/L Troponin I (0.000-0.034) ng/mL NT-Pro-B Natriuret Pep pg/mL Total Protein (6.3-8.2) g/dL Albumin (3.5-5.0) g/dL Coronavirus (PCR) Not Detected (Not Detectd) Influenza Type A RNA Not Detected (Not Detectd) Influenza Type B (PCR) Not Detected (Not Detectd) - EKG Data -: EKG Interpreted by Me EKG Comments: EKG reveals multiple - Radiology Data Radiology results: report reviewed, image reviewed Disposition Clinical Impression: Generalized weakness, Edema of right upper arm, Chronic ulcer of left leg Disposition: ADMITTED IP TO THIS HOSP Condition: Fair Is patient prescribed a controlled substance at d/c from ED?: No Referrals: Mike Escobar MD [Primary Care Provider] - 1-2 days Time of Disposition: 00:22
[2022-03-10 21:54] LABS: Anisocytosis Slight; Basophils % (A) 0 %; Eosinophils # (A) 0.1 k/uL (0-0.7); Eosinophils % (A) 1 %; HCT 28.9 % (39.0-53.0); HGB 9.4 gm/dL (13.0-17.5); Hypochromasia Marked; Lymphocytes # (A) 0.4 k/uL (1.0-4.8); Lymphocytes % (A) 4 %; MCHC 32.5 g/dL (31.0-37.0); MCV 95.4 fL (80.0-100.0); Macrocytosis Slight; Mean Platelet Volume 9.6; Monocytes # (A) 0.4 k/uL (0-1.0); Monocytes % (A) 4 %; Neutrophils # (A) 8.1 k/uL (1.3-7.7); Neutrophils % (A) 90 %; Platelet Count 158 k/uL (150-450); Poikilocytosis Slight; RBC 3.03 m/uL (4.30-5.90)
[2022-03-10 22:02] LABS: Albumin 3.7 g/dL (3.5-5.0); Calcium 8.7 mg/dL (8.4-10.2); INR 1.5 (<1.2); Partial Thromboplastin Time 34.4 sec (22.0-30.0); Prothrombin Time 15.4 sec (9.0-12.0); Total Bilirubin 1.1 mg/dL (0.2-1.3); Total Protein 6.9 g/dL (6.3-8.2)
[2022-03-10 22:17] LABS: Potassium 4.1 mmol/L (3.5-5.1)
--- NOTE | 2022-03-10 22:22 | XR ---
EXAMINATION TYPE: XR chest 1V portable DATE OF EXAM: 03/10/2022 COMPARISON: 03/05/2022 HISTORY: Cough TECHNIQUE: FINDINGS: There is no heart failure nor confluent pneumonic infiltrate. No pleural effusion. There ar e no hilar masses. Chest leads. IMPRESSION: No active cardiopulmonary disease. No change.
--- NOTE | 2022-03-11 00:12 | US ---
EXAMINATION TYPE: US venous doppler duplex UE RT DATE OF EXAM: 03/10/2022 COMPARISON: NONE CLINICAL HISTORY: EKG done at 1938 and regular at 78 attending physi. SIDE PERFORMED: Right Right Arm: Negative for DVT There is patency of the subclavian and axillary and brachial vein. IMPRESSION: No evidence of deep vein thrombosis in the right arm.
[2022-03-11] MEDS ORDERED: ACETAMINOPHEN TAB 325 MG TAB PO PRN (00:36)
[2022-03-11] MEDS ORDERED: NALOXONE 0.4 MG/ML 1 ML VIAL IV PRN (00:36)
[2022-03-11] MEDS ORDERED: SULFAMETHOX-TMP 800-160MG 1 EACH TAB PO SCH (09:00)
[2022-03-11] MEDS: MORPHINE SULFATE 4 MG/ML SYRINGE IV PRN ×2 (09:26→13:26)
[2022-03-11] MEDS: FERROUS SULFATE 325 MG TAB PO SCH (09:26)
[2022-03-11] MEDS: ASPIRIN 81 MG PO SCH (09:27)
[2022-03-11] MEDS: APIXABAN 5 MG TAB PO SCH ×2 (09:27→21:02)
[2022-03-11 11:27] LABS: Glucose,Whole Blood 210 mg/dL (70-110)
[2022-03-11] MEDS ORDERED: NITROGLYCERIN SL TABS 0.4 MG TAB SUBLINGUAL PRN (11:32)
[2022-03-11] MEDS ORDERED: COLLAGENASE 250 UNIT/GM OINTMENT 30 GM TUBE TOPICAL SCH (11:45)
[2022-03-11] MEDS ORDERED: SODIUM BICARBONATE TAB 650 MG TAB PO SCH (11:45)
[2022-03-11] MEDS ORDERED: DEXTROSE 50% SYRINGE 50 ML IVP PRN ×2 (12:12)
[2022-03-11] MEDS: INSULIN ASPART (NovoLOG) 100 UNIT/ML VIAL SQ SCH ×3 (12:29→21:02)
[2022-03-11] MEDS: ATORVASTATIN 80 MG TAB PO SCH (12:29)
[2022-03-11] MEDS: FLUoxetine HCL 20 MG CAP PO SCH (12:29)
[2022-03-11] MEDS: allopurinoL 100 MG TAB PO SCH (12:29)
[2022-03-11] MEDS: METOPROLOL SUCCINATE (ER) 50 MG TAB.ER.24H PO SCH (12:29)
[2022-03-11] MEDS: ISOSORBIDE MONONITRATE ER 30 MG TAB.ER.24H PO SCH (12:30)
[2022-03-11 13:02] LABS: Appearance,Urine Clear (Clear); Bilirubin,Urine Negative (Negative); Blood,Urine Negative (Negative); Color,Urine Yellow; Glucose,Urine (UA) Negative (Negative); Hyaline Casts,Urine 17 /lpf (0-2); Ketones,Urine Negative (Negative); Leukocyte Esterase,Urine Moderate (Negative); Mucus,Urine Rare /hpf; Nitrite,Urine Negative (Negative); PH, Urine 5.5 (5.0-8.0); Protein,Urine Trace (Negative); RBC,Urine 1 /hpf (0-5); Squamous Epithelial Cell,Urine <1 /hpf (0-4); Urobilinogen,Urine <2.0 mg/dL (<2.0); WBC,Urine 5 /hpf (0-5)
[2022-03-11] MEDS ORDERED: FUROSEMIDE 20 MG TAB PO SCH (16:00)
[2022-03-11 16:17] LABS: Glucose,Whole Blood 181 mg/dL (70-110)
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
[2022-03-11] MEDS ORDERED: CALCIUM CARBONATE 500 MG CHEWABLE PO PRN (18:54)
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
[2022-03-11 20:48] LABS: Glucose,Whole Blood 194 mg/dL (70-110)
[2022-03-11] MEDS: TAMSULOSIN 0.4 MG CAP.ER.24H PO SCH (21:02)
[2022-03-11] MEDS: SODIUM CHLORIDE 0.9% 1,000 ML IV SCH (21:02)
[2022-03-12 06:37] LABS: Glucose,Whole Blood 110 mg/dL (70-110)
[2022-03-12] MEDS: INSULIN ASPART (NovoLOG) 100 UNIT/ML VIAL SQ SCH ×4 (07:32→21:20)
[2022-03-12] MEDS: METOPROLOL SUCCINATE (ER) 50 MG TAB.ER.24H PO SCH (08:13)
[2022-03-12] MEDS: APIXABAN 5 MG TAB PO SCH ×2 (08:13→19:58)
[2022-03-12] MEDS: ISOSORBIDE MONONITRATE ER 30 MG TAB.ER.24H PO SCH (08:13)
[2022-03-12] MEDS: FLUoxetine HCL 20 MG CAP PO SCH (08:13)
[2022-03-12] MEDS: ASPIRIN 81 MG PO SCH (08:13)
[2022-03-12] MEDS: allopurinoL 100 MG TAB PO SCH (08:13)
[2022-03-12] MEDS: ATORVASTATIN 80 MG TAB PO SCH (08:13)
[2022-03-12] MEDS: FERROUS SULFATE 325 MG TAB PO SCH (08:13)
[2022-03-12] MEDS: COLLAGENASE 250 UNIT/GM OINTMENT 30 GM TUBE TOPICAL SCH ×2 (08:17→17:37)
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
[2022-03-12 08:42] LABS: Basophils # (A) 0.06 X 10*3/uL (0.00-0.10); Basophils % (A) 0.7 %; Eosinophils # (A) 0.12 X 10*3/uL (0.04-0.35); Eosinophils % (A) 1.5 %; HCT 28.8 % (39.6-50.0); HGB 8.6 g/dL (13.0-17.0); Immature Grans, Automated 0.5 %; Lymphocytes # (A) 0.64 X 10*3/uL (0.90-5.00); Lymphocytes % (A) 7.9 %; MCH 29.8 pg (27.0-32.0); MCHC 29.9 g/dL (32.0-37.0); MCV 99.7 fL (80.0-97.0); Mean Platelet Volume 11.8 fL (9.5-12.2); Monocytes # (A) 0.72 X 10*3/uL (0.20-1.00); Monocytes % (A) 8.9 %; NRBC Per 100 WBC 0 /100 WBCS (0.0-0.0); Neutrophils # (A) 6.48 X 10*3/uL (1.80-7.70); Neutrophils % (A) 80.5 %; Platelet Count 162 X 10*3/uL (140-440); RBC 2.89 X 10*6/uL (4.40-5.60); RDW 19.9 % (11.5-14.5); WBC 8.06 X 10*3/uL (4.50-10.00)
[2022-03-12 09:10] LABS: Albumin 3.1 g/dL (3.8-4.9); Anion Gap 15.3 mmol/L (10.00-18.00); BUN/Creat Ratio 24.89 Ratio (12.00-20.00); Blood Urea Nitrogen 89.6 mg/dL (9.0-27.0); Calcium 8.4 mg/dL (8.7-10.3); Carbon Dioxide 22.7 mmol/L (20.0-27.5); Globulin 3.1 g/dL (1.6-3.3); Non-African American GFR(CKD) 16.4 (60.0-200.0); Phosphorus 4.9 mg/dL (2.4-5.1); Potassium 3.5 mmol/L (3.5-5.5); Total Bilirubin 0.4 mg/dL (0.30-1.20); Total Protein 6.2 g/dL (6.2-8.2)
[2022-03-12 09:21] LABS: Urea Nitrogen, Urine Random <112.0 mg/dL
[2022-03-12] MEDS: SODIUM CHLORIDE 0.9% 1,000 ML IV SCH (10:00)
[2022-03-12] MEDS ORDERED: POTASSIUM CHLORIDE ER 20 MEQ TAB.ER PO STA (10:18)
--- NOTE | 2022-03-12 10:18 | P.PN ---
Subjective Patient is seen in follow-up for acute kidney injury on chronic kidney disease. Renal function worse. No output from the Rivera catheter. Rivera catheter was exchanged last night. He is receiving IV fluids. Blood pressure is on the lower side in the systolic 90s. Lasix and Bactrim stopped yesterday. Vital signs are stable. General: Awake. No acute distress. HEENT: Head exam is unremarkable. On nasal cannula. LUNGS: Breath sounds decreased. HEART: Rate and Rhythm are regular. ABDOMEN: Soft, no distention. EXTREMITITES: No edema. Left lower extremity wrapped. No drainage. Objective - Vital Signs Vital signs: Vital Signs Temp 98.6 F 03/12/22 08:00 Pulse 65 03/12/22 08:00 Resp 17 03/12/22 08:00 BP 97/57 03/12/22 08:00 Pulse Ox 92 L 03/12/22 08:51 FiO2 Intake & Output 03/11/22 03/12/22 03/12/22 18:59 06:59 18:59 Output Total 324 80 Balance -324 -80 Output: Urine 324 80 Uretheral (Rivera) 324 80 Other: Voiding Method Indwelling Catheter - Labs CBC & Chem 7: 03/12/22 04:33 03/12/22 04:33 Labs: Abnormal Lab Results - Last 24 Hours (Table) 03/11/22 03/11/22 03/11/22 Range/Units 11:25 12:26 16:15 RBC (4.40-5.60) X 10*6/uL Hgb (13.0-17.0) g/dL Hct (39.6-50.0) % MCV (80.0-97.0) fL MCHC (32.0-37.0) g/dL RDW (11.5-14.5) % Lymphocytes # (0.90-5.00) X 10*3/uL BUN (9.0-27.0) mg/dL Creatinine (0.6-1.5) mg/dL Est GFR (CKD-EPI)AfAm (60.0-200.0) Est GFR (CKD-EPI)NonAf (60.0-200.0) BUN/Creatinine Ratio (12.00-20.00) Ratio POC Glucose (mg/dL) 210 H 181 H (70-110) mg/dL Calcium (8.7-10.3) mg/dL Albumin (3.8-4.9) g/dL Albumin/Globulin Ratio (1.60-3.17) g/dL Urine Protein Trace H (Negative) Ur Leukocyte Esterase Moderate H (Negative) Hyaline Casts 17 H (0-2) /lpf Urine Mucus Rare H (None) /hpf Ur Random Creatinine (39.0-259.0) mg/dL 03/11/22 03/11/22 03/12/22 Range/Units 20:47 23:37 04:33 RBC 2.89 L (4.40-5.60) X 10*6/uL Hgb 8.6 L (13.0-17.0) g/dL Hct 28.8 L (39.6-50.0) % MCV 99.7 H (80.0-97.0) fL MCHC 29.9 L (32.0-37.0) g/dL RDW 19.9 H (11.5-14.5) % Lymphocytes # 0.64 L (0.90-5.00) X 10*3/uL BUN (9.0-27.0) mg/dL Creatinine (0.6-1.5) mg/dL Est GFR (CKD-EPI)AfAm (60.0-200.0) Est GFR (CKD-EPI)NonAf (60.0-200.0) BUN/Creatinine Ratio (12.00-20.00) Ratio POC Glucose (mg/dL) 194 H (70-110) mg/dL Calcium (8.7-10.3) mg/dL Albumin (3.8-4.9) g/dL Albumin/Globulin Ratio (1.60-3.17) g/dL Urine Protein (Negative) Ur Leukocyte Esterase (Negative) Hyaline Casts (0-2) /lpf Urine Mucus (None) /hpf Ur Random Creatinine 19.0 L (39.0-259.0) mg/dL 03/12/22 Range/Units 04:33 RBC (4.40-5.60) X 10*6/uL Hgb (13.0-17.0) g/dL Hct (39.6-50.0) % MCV (80.0-97.0) fL MCHC (32.0-37.0) g/dL RDW (11.5-14.5) % Lymphocytes # (0.90-5.00) X 10*3/uL BUN 89.6 H (9.0-27.0) mg/dL Creatinine 3.6 H (0.6-1.5) mg/dL Est GFR (CKD-EPI)AfAm 19.0 L (60.0-200.0) Est GFR (CKD-EPI)NonAf 16.4 L (60.0-200.0) BUN/Creatinine Ratio 24.89 H (12.00-20.00) Ratio POC Glucose (mg/dL) (70-110) mg/dL Calcium 8.4 L (8.7-10.3) mg/dL Albumin 3.1 L (3.8-4.9) g/dL Albumin/Globulin Ratio 1.00 L (1.60-3.17) g/dL Urine Protein (Negative) Ur Leukocyte Esterase (Negative) Hyaline Casts (0-2) /lpf Urine Mucus (None) /hpf Ur Random Creatinine (39.0-259.0) mg/dL Microbiology - Last 24 Hours (Table) 03/10/22 21:35 Gram Stain - Preliminary Leg - Left Wound Culture - Preliminary Beta Hemolytic Strep Group G 03/10/22 20:53 Blood Culture - Preliminary Blood No Growth after 24 hours 03/10/22 20:40 Blood Culture - Preliminary Blood No Growth after 24 hours 03/10/22 21:35 Anaerobic Culture - Preliminary Leg - Left Assessment and Plan Plan: Assessment: 1. Acute kidney injury secondary to ATN and further worsened with the use of Bactrim. Rule out obstructive uropathy. Creatinine 3.6 today. UA fairly benign. 2. Chronic kidney disease stage IV with baseline creatinine in the range of 2.5-3. 3. Left dorsum the cellulitis status post Bactrim. ID following. 4. Anemia of chronic kidney disease. Rule out iron deficiency. Plan: Continue to hold Lasix. Bactrim also discontinued yesterday. Check renal ultrasound. Maintain IV fluids. Avoid nephrotoxins. Continue to monitor renal function and urine output. Add midodrine. Check a.m. cortisol level.
[2022-03-12] MEDS: Acetaminophen-Codeine 300-30mg TAB PO PRN ×2 (10:35→19:57)
--- NOTE | 2022-03-12 11:39 | US ---
EXAMINATION TYPE: US kidneys/renal and bladder DATE OF EXAM: 03/12/2022 COMPARISON: CLINICAL HISTORY: fortino. Abnormal labs. Patient has bladder lucero. EXAM MEASUREMENTS: Right Kidney: 10.1 x 5.1 x 5.3 cm Left Kidney: 10.0 x 4.5 x 5.3 cm Right Kidney: No hydronephrosis or masses seen . Renal cortex preserved. Left Kidney: Limited due to bowel gas Bladder: Not well seen due to lucero Bilateral Jets not visualized due to bladder lucero Incidental finding: Ascites seen Incidental finding: Stones visualized within gallbladder IMPRESSION: 1. Incidental note made of very small amount of ascites. 2. Cholelithiasis. 3. Limited assessment left kidney due to bowel gas. Right kidney demonstrates no hydronephrosis or ne phrolithiasis.
[2022-03-12 11:45] LABS: Glucose,Whole Blood 106 mg/dL (70-110)
[2022-03-12] MEDS: MIDODRINE 5 MG TAB PO SCH ×2 (11:51→17:27)
--- NOTE | 2022-03-12 13:37 | XR ---
EXAMINATION TYPE: XR humerus RT DATE OF EXAM: 03/12/2022 COMPARISON: NONE HISTORY: Pain TECHNIQUE: 2 views submitted. FINDINGS: The osseous structures are intact and there is diffuse osteopenia. ECG arthropathy noted. Soft tissu e vascular calcifications are seen. IMPRESSION: 1. No acute fracture or dislocation.
--- NOTE | 2022-03-12 13:39 | XR ---
EXAMINATION TYPE: XR forearm RT DATE OF EXAM: 03/12/2022 COMPARISON: NONE HISTORY: Pain Two views of the forearm demonstrate that the osseous structures appear to be intact and the joint sp aces appear to be preserved. There is no acute fracture or dislocation. Soft tissue edema noted. Th ere is vascular soft tissue tells patients. IMPRESSION: 1. No acute fracture or dislocation. Correlate for soft tissue edema.
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
--- NOTE | 2022-03-12 14:21 | P.PN ---
Progress Note - Text Progress Note Date: 03/12/22 Chief Complaint: Short of breath This is a pleasant 66-year-old patient, follows with Dr. Mike Escobar. Chronic stable medical conditions include CAD with stent, diabetes, hypertension, hyperlipidemia anxiety. CAD, hyperuricemia, left leg DVT in October 2021, CHF EF 20 -25% hospital from November 14 through November 21/2022 with leg wounds. seen by ID and vascular. Wound culture - stenotrophomonas maltophilia. Patient does follow the wound care center. Patient now presents with multiple symptoms. Hurting all over. Short of breath. Decreased appetite. Hasn't really eaten for 5 days. Feeling weak. Normally has bowel movements about twice a week. Finding it difficult to walk. He had called 911 as he could not get up to tolerate. Denies any fever and chills. He lists his sister who cannot take care of him anymore. 03/12/2022: Sitting up in a recliner. Eating. Appears comfortable. Case management is looking into placement. Oral intake about 25%. Also has a TIA secondary to ATN. IV fluids. Lasix being held. Active Medications Acetaminophen (Acetaminophen Tab 325 Mg Tab) 650 mg PO Q6HR PRN PRN Reason: Mild Pain or Fever > 100.5 Acetaminophen/Codeine Phosphate (Acetaminophen-Codeine 300-30mg Tab) 1 each PO Q4HR PRN PRN Reason: Moderate to Severe Pain Last Admin: 03/12/22 10:35 Dose: 1 each Allopurinol (Allopurinol 100 Mg Tab) 100 mg PO DAILY [facility] Last Admin: 03/12/22 08:13 Dose: 100 mg Alprazolam (Alprazolam 0.25 Mg Tab) 0.25 mg PO BID PRN PRN Reason: Anxiety Apixaban (Apixaban 5 Mg Tab) 5 mg PO BID [facility]; Protocol Last Admin: 03/12/22 08:13 Dose: 5 mg Aspirin (Aspirin 81 Mg) 81 mg PO DAILY [facility] Last Admin: 03/12/22 08:13 Dose: 81 mg Atorvastatin Calcium (Atorvastatin 80 Mg Tab) 80 mg PO DAILY [facility] Last Admin: 03/12/22 08:13 Dose: 80 mg Calcium Carbonate/Glycine (Calcium Carbonate 500 Mg Chewable) 1,000 mg PO Q4HR PRN PRN Reason: Dyspepsia Cephalexin (Cephalexin 500 Mg Cap) 500 mg PO BID [facility]; Protocol Collagenase (Collagenase 250 Unit/Gm Ointment 30 Gm Tube) 1 applic TOPICAL DAILY [facility]; Protocol Dextrose/Water (Dextrose 50% Syringe 50 Ml) 25 ml IVP PER PROTOCOL PRN; Protocol PRN Reason: Hypoglycemia Dextrose/Water (Dextrose 50% Syringe 50 Ml) 50 ml IVP PER PROTOCOL PRN; Protocol PRN Reason: Hypoglycemia Ferrous Sulfate (Ferrous Sulfate 325 Mg Tab) 325 mg PO DAILY [facility] Last Admin: 03/12/22 08:13 Dose: 325 mg Fluoxetine HCl (Fluoxetine Hcl 20 Mg Cap) 20 mg PO DAILY [facility] Last Admin: 03/12/22 08:13 Dose: 20 mg Sodium Chloride (Saline 0.9%) 1,000 mls @ 75 mls/hr IV .[id number] [facility] Last Admin: 03/12/22 10:00 Dose: 75 mls/hr Insulin Aspart (Insulin Aspart (Novolog) 100 Unit/Ml Vial) 0 unit SQ ACHS [facility]; Protocol Last Admin: 03/12/22 11:47 Dose: Not Given Isosorbide Mononitrate (Isosorbide Mononitrate Er 30 Mg Tab.Er.24h) 30 mg PO DAILY [facility] Last Admin: 03/12/22 08:13 Dose: 30 mg Lactulose (Lactulose 20 Gm/30 Ml Cup) 20 gm PO DAILY PRN PRN Reason: Constipation Metoprolol Succinate (Metoprolol Succinate (Er) 50 Mg Tab.Er.24h) 50 mg PO DAILY [facility] Last Admin: 03/12/22 08:13 Dose: 50 mg Midodrine (Midodrine 5 Mg Tab) 5 mg PO AC-TID [facility] Last Admin: 03/12/22 11:51 Dose: 5 mg Nitroglycerin (Nitroglycerin Sl Tabs 0.4 Mg Tab) 0.4 mg SUBLINGUAL Q5M PRN PRN Reason: Chest Pain Tamsulosin HCl (Tamsulosin 0.4 Mg Cap.Er.24h) 0.4 mg PO HS [facility] Last Admin: 03/11/22 21:02 Dose: 0.4 mg Past medical history to include: CAD with stent, diabetes, hypertension, hyperlipidemia, skin cancer on the nose in August 2020, anxiety, left leg common femoral DVT October 2021, hyperuricemia, hepatic steatosis, CHF EF 20-25%. 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 Alcohol rarely. Living with his sister Family history: Diabetes, CAD Physical examination: VITAL SIGNS: 97.6, 65, 18, 101/61, 99% on 2 L GENERAL: In a recliner, awake EYES: Pupils equal. Conjunctiva normal. HEENT: External appearance of nose and ears normal, oral cavity grossly normal. NECK: JVD possibly raised; masses not palpable. HEART: First and second heart sounds are normal; some edema. LUNGS: Respiratory rate increased; decreased breath sound . ABDOMEN: Soft, nontender, liver spleen not palpable, no masses palpable. PSYCH: [Alert and oriented x3; mood and affect slightly anxious LYMPHATICS: No lymph node palpable neck and axilla Musculoskeletal: Evidence of OA. Some swelling of the right upper extremity- distal to the elbow DERMATOLOGICAL: Dressing on the left leg on wounds INVESTIGATIONS, reviewed in the clinical context: March 12: WBC 8.0 hemoglobin 8.6 platelets 162 potassium 3.5 creatinine 3.6 WBC 9 hemoglobin 9.4 platelets 158 INR 1.5 sodium 135 potassium 4.1. 92 creatinine 2.75 COVID 19/influenza type A/influenza type B: Not detected EKG tracing personally reviewed by me-sinus rhythm, right by her plan block, PVCs Chest x-ray film personally reviewed by me-cardiomegaly. No infiltrates Previous studies: 2-D echocardiogram: EF 20-25%. Left lower extremity venous Doppler: DVT in the common femoral vein. Gallbladder ultrasound: Gallbladder filled with stones. Possible hepatic steatosis. Arterial Doppler results discussed with Dr. Mike: No evidence of vascular compromise Assessment and plan: -Acute kidney injury from ATN.: Worsening Follow with nephrology. Lasix held. Bactrim was discontinued. IV fluids. -Acute on chronic medical debility. Multifactorial. 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 -chronic congestive heart failure from ischemic cardiomyopathy EF 20-25%. Toprol-XL - chronic multiple wounds painful left lower extremity left calf and left ankle likely from venous ulcers from recent DVT. Follow with wound care team/Dr. saleem, [place] -Chronic DVT of the left common femoral vein, in 10/16/2021 eliquis . -Ischemic cardiomyopathy, EF 20-25% Toprol-XL 50 mg daily. Aldactone hold. -Choledocholithiasis. Asymptomatic -Chronic DVT left, femoral vein Eliquis -CAD with a history of stent Aspirin 81 mg daily, Lopressor -Diabetes mellitus type 2, chronically on insulin Follow Accu-Cheks and sliding scale insulin. -Hyperlipidemia Lipitor 80 mg daily -Essential hypertension Toprol-XL 50 mg -Chronic kidney disease stage III from diabetic nephropathy and hypertensive n ephrosclerosis [employer] Supervisor nephrology -Anxiety not otherwise specified Xanax 0.25 mg by mouth twice a day -Hyperuricemia allopurinol 100 mg daily -no code Awaiting input from vascular 4 right arm swelling,. IV fluids. Continue to hold Lasix. Wound care. Discussed with patient. brand marketing manager working on placement.
--- NOTE | 2022-03-12 16:17 | XR ---
EXAMINATION TYPE: XR chest 2V DATE OF EXAM: 03/12/2022 2:40 PM COMPARISON: Chest radiographs from 03/10/2022. TECHNIQUE: XR chest 2V Frontal and lateral views of the chest. CLINICAL INDICATION:Male, 66 years old with history of r/o CHF; FINDINGS: Lungs/Pleura: Lodging of both costophrenic angles. Pulmonary vascularity: Unremarkable. Heart/mediastinum: Cardiomediastinal silhouette is enlarged and stable. Musculoskeletal: No acute osseous pathology. IMPRESSION: Trace bilateral pleural effusions with cardiomegaly. No overt pulmonary vascular congestion.
[2022-03-12 16:54] LABS: Glucose,Whole Blood 182 mg/dL (70-110)
[2022-03-12] MEDS: CEPHALEXIN 500 MG CAP PO SCH (19:57)
[2022-03-12] MEDS: TAMSULOSIN 0.4 MG CAP.ER.24H PO SCH (19:58)
[2022-03-12 20:39] LABS: Glucose,Whole Blood 161 mg/dL (70-110)
[2022-03-13 05:57] LABS: Glucose,Whole Blood 125 mg/dL (70-110)
[2022-03-13] MEDS: INSULIN ASPART (NovoLOG) 100 UNIT/ML VIAL SQ SCH ×4 (05:57→21:22)
[2022-03-13] MEDS: Acetaminophen-Codeine 300-30mg TAB PO PRN (06:04)
[2022-03-13] MEDS: MIDODRINE 5 MG TAB PO SCH ×3 (06:04→17:05)
--- NOTE | 2022-03-13 10:05 | P.PN ---
Subjective Progress Note Date: 03/13/22 Principal diagnosis: Left lower extremity chronic wounds, right upper extremity swelling Patient is seen and examined this morning as a follow-up. States right upper extremity pain is somewhat improved. Denies any fevers, chills, or body aches. Wound care has been consulted, they have been following him in the outpatient setting. X-rays reviewed of right upper extremity, no acute fractures noted. Wound culture positive for beta hemolytic strep group G. He remains on [place] ncomycin. He's been afebrile. Objective - Vital Signs Vital signs: Vital Signs Temp 97.7 F 03/13/22 07:46 Pulse 71 03/13/22 07:46 Resp 14 03/13/22 07:46 BP 115/69 03/13/22 07:46 Pulse Ox 96 03/13/22 07:46 FiO2 Intake & Output 03/12/22 03/13/22 03/13/22 18:59 06:59 18:59 Intake Total 360 Output Total 50 200 Balance -50 160 Intake: Oral 360 Output: Urine 50 200 Uretheral ([place]) 50 200 Other: Voiding Method Indwelling Catheter Indwelling Catheter # Voids 3 2 - Exam General appearance: The patient is alert, oriented, appears in no acute distress. HET: Head is normocephalic and atraumatic. Pupils are equal and reactive. Neck: Supple without lymphadenopathy. Trachea midline. Heart: S1 S2. Regular rate and rhythm. Lungs: Clear to auscultation bilaterally. Abdomen: Soft, nontender, nondistended. Extremities: Left lower extremity with multiple wounds. Patient with wounds to the left lateral leg as well as posterior aspect of the leg with slough tissue, granulation, with no surrounding redness, and small amount non-odorous drainage. Bilateral lower extremities warm to the touch with good capillary refill, palpable femoral pulses, and positive popliteal and posterior tibialis signal. Right great toe lateral aspect the area that is purple. Neurological: Alert and oriented 3.. - Labs CBC & Chem 7: 03/12/22 04:33 03/12/22 04:33 Labs: Abnormal Lab Results - Last 24 Hours (Table) 03/10/22 03/12/22 03/12/22 Range/Units 20:40 16:53 20:38 POC Glucose (mg/dL) 182 H 161 H (70-110) mg/dL Hemoglobin A1c 8.0 H (0.0-6.0) % 03/13/22 Range/Units 05:56 POC Glucose (mg/dL) 125 H (70-110) mg/dL Hemoglobin A1c (0.0-6.0) % Microbiology - Last 24 Hours (Table) 03/10/22 20:53 Blood Culture - Preliminary Blood No Growth after 48 hours 03/10/22 20:40 Blood Culture - Preliminary Blood No Growth after 48 hours 03/10/22 21:35 Gram Stain - Preliminary Leg - Left Wound Culture - Preliminary Beta Hemolytic Strep Group G Assessment and Plan Assessment: 1. Left lower extremity chronic venous wounds 2. Right upper extremity pain and swelling, possible cellulitis/infection 3. History of left lower extremity DVT on Eliquis 4. Chronic venous insufficiency 5. Diabetes mellitus 6. Coronary artery disease status post [place], cardiac stents Plan: 1. X-rays of right upper extremity ordered and reviewed 2. Keflex 500 mg twice a day started for possible cellulitis/infection right upper extremity 3. Consult wound care, they have been managing care in the outpatient setting 4. No indication for any vascular surgical intervention 5. Appreciate input from infectious disease on right upper extremity swelling, possible cellulitis/infection 6. Consult physical therapy, encourage ambulation Thank you for this consultation, we will be on stand by if further needed. The impression and plan of care has been dictated as directed. Dr. Mike I performed a history and examination of this patient, discussed the same with the dictator. I agree with the dictator's note ,documented as a scribe. Any additional findings or plans will be noted.
[2022-03-13] MEDS ORDERED: FUROSEMIDE 10 MG/ML 4 ML VIAL IV STA (10:19)
--- NOTE | 2022-03-13 10:20 | P.PN ---
Subjective Patient is seen in follow-up for acute kidney injury on chronic kidney disease. Renal function worse. Urine output documented as 404 mL for 03/12/2022. Blood pressure better at 115/69 this morning. Lasix and Bactrim discontinued 03/11/2022. Vital signs are stable. General: Awake. No acute distress. HEENT: Head exam is unremarkable. On nasal cannula. LUNGS: Breath sounds decreased. HEART: Rate and Rhythm are regular. ABDOMEN: Soft, no distention. EXTREMITITES: Trace edema. Left lower extremity wrapped. No drainage. Objective - Vital Signs Vital signs: Vital Signs Temp 97.7 F 03/13/22 07:46 Pulse 71 03/13/22 07:46 Resp 14 03/13/22 07:46 BP 115/69 03/13/22 07:46 Pulse Ox 96 03/13/22 07:46 FiO2 Intake & Output 03/12/22 03/13/22 03/13/22 18:59 06:59 18:59 Intake Total 360 Output Total 50 200 Balance -50 160 Intake: Oral 360 Output: Urine 50 200 Uretheral ([place]) 50 200 Other: Voiding Method Indwelling Catheter Indwelling Catheter # Voids 3 2 - Labs CBC & Chem 7: 03/12/22 04:33 03/12/22 04:33 Labs: Abnormal Lab Results - Last 24 Hours (Table) 03/10/22 03/12/22 03/12/22 Range/Units 20:40 16:53 20:38 POC Glucose (mg/dL) 182 H 161 H (70-110) mg/dL Hemoglobin A1c 8.0 H (0.0-6.0) % 03/13/22 Range/Units 05:56 POC Glucose (mg/dL) 125 H (70-110) mg/dL Hemoglobin A1c (0.0-6.0) % Microbiology - Last 24 Hours (Table) 03/10/22 20:53 Blood Culture - Preliminary Blood No Growth after 48 hours 03/10/22 20:40 Blood Culture - Preliminary Blood No Growth after 48 hours 03/10/22 21:35 Gram Stain - Preliminary Leg - Left Wound Culture - Preliminary Beta Hemolytic Strep Group G Assessment and Plan Plan: Assessment: 1. Acute kidney injury secondary to ATN and further worsened with the use of Bactrim. Rule out obstructive uropathy. Creatinine 3.6 today. UA fairly benign. No hydronephrosis noted on kidney ultrasound. 2. Chronic kidney disease stage IV with baseline creatinine in the range of 2.5-3. 3. Leftlower extremity cellulitis status post Bactrim. ID following. 4. Anemia of chronic kidney disease. Rule out iron deficiency. 5. Volume overload. Plan: Lasix 40 mg IV once today. Check iron studies. Avoid nephrotoxins. Continue to monitor renal function and urine output. Maintain midodrine. Follow-up cortisol level. AM labs pending.
[2022-03-13] MEDS: FERROUS SULFATE 325 MG TAB PO SCH (10:43)
[2022-03-13] MEDS: ISOSORBIDE MONONITRATE ER 30 MG TAB.ER.24H PO SCH (10:43)
[2022-03-13] MEDS: ATORVASTATIN 80 MG TAB PO SCH (10:44)
[2022-03-13] MEDS: APIXABAN 5 MG TAB PO SCH (10:44)
[2022-03-13] MEDS: ASPIRIN 81 MG PO SCH (10:44)
[2022-03-13] MEDS: CEPHALEXIN 500 MG CAP PO SCH ×2 (10:46→21:43)
[2022-03-13] MEDS: METOPROLOL SUCCINATE (ER) 50 MG TAB.ER.24H PO SCH (10:46)
[2022-03-13] MEDS: allopurinoL 100 MG TAB PO SCH (10:46)
[2022-03-13] MEDS: LACTULOSE 20 GM/30 ML CUP PO PRN (10:47)
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
[2022-03-13 11:13] LABS: Glucose,Whole Blood 115 mg/dL (70-110)
[2022-03-13 11:25] LABS: African American GFR (CKD) 17.2 (60.0-200.0); Anion Gap 14.1 mmol/L (10.00-18.00); Blood Urea Nitrogen 97.5 mg/dL (9.0-27.0); Calcium 8.3 mg/dL (8.7-10.3); Carbon Dioxide 24.9 mmol/L (20.0-27.5); Non-African American GFR(CKD) 14.9 (60.0-200.0); Potassium 3.7 mmol/L (3.5-5.5)
[2022-03-13] MEDS: FLUoxetine HCL 20 MG CAP PO SCH (11:37)
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
[2022-03-13] MEDS: COLLAGENASE 250 UNIT/GM OINTMENT 30 GM TUBE TOPICAL SCH (15:02)
[2022-03-13] MEDS ORDERED: Kcentra PER PHARMACY 1 EACH MISC MISCELLANE PRN (15:33)
[2022-03-13] MEDS ORDERED: HUMAN PROTHROMBIN COMPLX IV ONE (15:45)
[2022-03-13 15:49] LABS: Anisocytosis Slight; Basophils % (A) 0 %; Eosinophils # (A) 0.1 k/uL (0-0.7); Eosinophils % (A) 1 %; HCT 29.8 % (39.0-53.0); HGB 9.3 gm/dL (13.0-17.5); Hypochromasia Marked; Lymphocytes # (A) 0.5 k/uL (1.0-4.8); Lymphocytes % (A) 5 %; MCH 30.9 pg (25.0-35.0); MCHC 31.3 g/dL (31.0-37.0); MCV 98.4 fL (80.0-100.0); Macrocytosis Slight; Mean Platelet Volume 9.1; Monocytes # (A) 0.5 k/uL (0-1.0); Monocytes % (A) 5 %; Neutrophils # (A) 8.4 k/uL (1.3-7.7); Neutrophils % (A) 88 %; Platelet Count 179 k/uL (150-450); Poikilocytosis Slight; RBC 3.02 m/uL (4.30-5.90); RDW 19.2 % (11.5-15.5); WBC 9.6 k/uL (3.8-10.6)
[2022-03-13] MEDS ORDERED: HUMAN PROTHROMBIN COMPLX 500 UNIT/16 ML VIAL IV ONE (16:00)
--- NOTE | 2022-03-13 16:15 | P.PN ---
Progress Note - Text Progress Note Date: 03/13/22 Chief Complaint: Short of breath This is a pleasant 66-year-old patient, follows with Dr. Mike Escobar. Chronic stable medical conditions include CAD with stent, diabetes, hypertension, hyperlipidemia anxiety. CAD, hyperuricemia, left leg DVT in October 2021, CHF EF 20 -25% hospital from November 14 through November 21/2022 with leg wounds. seen by ID and vascular. Wound culture - stenotrophomonas maltophilia. Patient does follow the wound care center. Patient now presents with multiple symptoms. Hurting all over. Short of breath. Decreased appetite. Hasn't really eaten for 5 days. Feeling weak. Normally has bowel movements about twice a week. Finding it difficult to walk. He had called 911 as he could not get up to tolerate. Denies any fever and chills. He lists his sister who cannot take care of him anymore. 03/12/2022: Sitting up in a recliner. Eating. Appears comfortable. Case management is looking into placement. Oral intake about 25%. Also has a a acute kidney injury secondary to ATN from Bactrim. IV fluids. Lasix being held. 03/13/2022: Patient was seen this morning. Decreased appetite. Seen by vascular. Right arm swelling appears to be from cellulitis. Has been on Keflex. Right arm elevated. Negative for DVT. Current medications reviewed Past medical history to include: CAD with stent, diabetes, hypertension, hyperlipidemia, skin cancer on the nose in August 2020, anxiety, left leg common femoral DVT October 2021, hyperuricemia, hepatic steatosis, CHF EF 20-25%. 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 Alcohol rarely. Living with his sister Family history: Diabetes, CAD Physical examination: VITAL SIGNS: 97.7, 71, 14, 11 5 x 69, 96% on 2 L GENERAL: In a recliner, awake EYES: Pupils equal. Conjunctiva normal. HEENT: External appearance of nose and ears normal, oral cavity grossly normal. NECK: JVD possibly raised; masses not palpable. HEART: First and second heart sounds are normal; some edema. LUNGS: Respiratory rate increased; decreased breath sound . ABDOMEN: Soft, nontender, liver spleen not palpable, no masses palpable. PSYCH: [Alert and oriented x3; mood and affect slightly anxious LYMPHATICS: No lymph node palpable neck and axilla Musculoskeletal: Evidence of OA. Some swelling of the right upper extremity- distal to the elbow, some tenderness and redness DERMATOLOGICAL: Dressing on the left leg on wounds INVESTIGATIONS, reviewed in the clinical context: 03/13/2022: Hemoglobin 9.3 platelets 179 potassium 3.7 creatinine 3.9 March 12: WBC 8.0 hemoglobin 8.6 platelets 162 potassium 3.5 creatinine 3.6 WBC 9 hemoglobin 9.4 platelets 158 INR 1.5 sodium 135 potassium 4.1. 92 creatinine 2.75 COVID 19/influenza type A/influenza type B: Not detected EKG tracing personally reviewed by me-sinus rhythm, right by her plan block, PVCs Chest x-ray film personally reviewed by me-cardiomegaly. No infiltrates Previous studies: 2-D echocardiogram: EF 20-25%. Left lower extremity venous Doppler: DVT in the common femoral vein. Gallbladder ultrasound: Gallbladder filled with stones. Possible hepatic steatosis. Arterial Doppler results discussed with Dr. Mike: No evidence of vascular compromise Assessment and plan: -Acute kidney injury from ATN.: Worsening Follow with nephrology. Lasix held. Bactrim was discontinued. IV fluids. -Acute on chronic medical debility. Multifactorial. 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 -chronic congestive heart failure from ischemic cardiomyopathy EF 20-25%. Toprol-XL. Aldactone held - chronic multiple wounds painful left lower extremity left calf and left ankle likely from venous ulcers from recent DVT. Follow with wound care team/Dr. saleem, ID -Chronic DVT of the left common femoral vein, in 10/16/2021 eliquis . -Acute cellulitis right upper arm distally. Keflex. Seen by vascular -Choledocholithiasis. Asymptomatic -CAD with a history of stent Aspirin 81 mg daily, Lopressor -Diabetes mellitus type 2, chronically on insulin Follow Accu-Cheks and sliding scale insulin. 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 [facility] nephrology -Anxiety not otherwise specified Xanax 0.25 mg by mouth twice a day -Hyperuricemia allopurinol 100 mg daily -no code Seen by vascular. No DVT in the right upper extremity. Keep elevated. Keflex. Other medications to continue. Follow with nephrology. Wound care in place. Discussed with patient.
[2022-03-13 16:17] LABS: Glucose,Whole Blood 132 mg/dL (70-110)
--- NOTE | 2022-03-13 16:22 | P.EN ---
Critical care note: Nurse called me that patient had a large black stool in his brief. Stat CBC stool occult was ordered. Stool occult blood came back positive. Note that patient's is on eliquis A team was called and patient on of the large dark stool. Patient feeling tired. On examination Vitals: 97.4, 66, 16, 99 x 64, 95% on 2 L General appearance: Laying in bed awake, tired Eyes: Pupils equal, conjunctiva pale Respiratory: Effort normal, decreased breath sounds Cardiovascular: First second sound normal, some edema Psychiatry: AO 3, motor affect a bit anxious DERMATOLOGICAL: Wounds on lower extremity the left INVESTIGATIONS, reviewed in the clinical context: Stat CBC ordered. Assessment and plan: -Acute GI bleed in a patient who is on eliquis and aspirin Eliquis and aspirin discontinued Stat CBC ordered Patient made to lie down flat on the bed. Repeat CBC ordered in 4 hours. Frequent vitals with continuous monitoring K- [facility] ordered IV Transfer the patient to ICU. Spoke to the garnett fixer Dr. Aguilar on the phone Careful IV fluids as patient has underlying CHF. Patient is accompanied to the ICU to his room. Spoke to the nurse on the floor and ICU nurse. Discussed with the patient. Critical care time spent 40 minutes. .
[2022-03-13 16:38] LABS: % Iron Saturation 10.12 (15.00-50.00)
[2022-03-13 17:01] LABS: Glucose,Whole Blood 382 mg/dL (70-110)
[2022-03-13 20:29] LABS: Anisocytosis Slight; Basophils % (A) 0 %; Eosinophils # (A) 0.1 k/uL (0-0.7); Eosinophils % (A) 1 %; HCT 28.6 % (39.0-53.0); HGB 9.1 gm/dL (13.0-17.5); Hypochromasia Marked; Lymphocytes # (A) 0.5 k/uL (1.0-4.8); Lymphocytes % (A) 5 %; MCH 31.1 pg (25.0-35.0); MCHC 31.8 g/dL (31.0-37.0); MCV 97.8 fL (80.0-100.0); Macrocytosis Slight; Mean Platelet Volume 8.9; Monocytes # (A) 0.5 k/uL (0-1.0); Monocytes % (A) 5 %; Neutrophils # (A) 8.8 k/uL (1.3-7.7); Neutrophils % (A) 88 %; Platelet Count 204 k/uL (150-450); Poikilocytosis Slight; RBC 2.93 m/uL (4.30-5.90); RDW 19.3 % (11.5-15.5)
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
[2022-03-13 21:23] LABS: Glucose,Whole Blood 105 mg/dL (70-110)
[2022-03-13] MEDS: TAMSULOSIN 0.4 MG CAP.ER.24H PO SCH (21:44)
--- NOTE | 2022-03-13 22:44 | P.PN ---
Subjective Progress Note Date: 03/12/22 Patient is a 66-year-old male with a past medical history of "ischemic cardiomyopathy coronary disease hypertension hyperlipidemia left lower extremity DVT chronic kidney disease in this patient who did have a chronic left lower extremity wound on the lateral as well as medial aspect Patient presented to hospital with generalized weakness. On today's evaluation that is 03/12/2022, the patient denies having any fever or any chills, the patient is currently breathing comfortably patient denies any worsening pain in the left lower extremity wound area no chest pain shortness with or cough no abdominal pain no diarrhea Objective - Vital Signs Vital signs: Vital Signs Temp 97.4 F L 03/12/22 14:00 Pulse 63 03/12/22 14:00 Resp 17 03/12/22 14:00 BP 99/58 03/12/22 14:00 Pulse Ox 100 03/12/22 14:00 FiO2 Intake & Output 03/11/22 03/12/22 03/12/22 18:59 06:59 18:59 Output Total 324 80 Balance -324 -80 Output: Urine 324 80 Uretheral (Rivera) 324 80 Other: Voiding Method Indwelling Catheter Indwelling Catheter - Exam GENERAL DESCRIPTION: Elderly male lying in bed, no distress. No tachypnea or accessory muscle of respiration use. LUNGS: Unlabored breathing. Decreased breath sound at the base HEART: S1, S2, regular rate and rhythm. No loud murmur ABDOMEN: Soft, no tenderness , guarding or rigidity, no organomegaly EXTREMITIES: Left leg wounds are currently dressed no drainage on the dressing. - Labs CBC & Chem 7: 03/13/22 19:38 03/13/22 07:18 Labs: Abnormal Lab Results - Last 24 Hours (Table) 03/10/22 03/11/22 03/11/22 Range/Units 20:40 16:15 20:47 RBC (4.40-5.60) X 10*6/uL Hgb (13.0-17.0) g/dL Hct (39.6-50.0) % MCV (80.0-97.0) fL MCHC (32.0-37.0) g/dL RDW (11.5-14.5) % Lymphocytes # (0.90-5.00) X 10*3/uL BUN (9.0-27.0) mg/dL Creatinine (0.6-1.5) mg/dL Est GFR (CKD-EPI)AfAm (60.0-200.0) Est GFR (CKD-EPI)NonAf (60.0-200.0) BUN/Creatinine Ratio (12.00-20.00) Ratio POC Glucose (mg/dL) 181 H 194 H (70-110) mg/dL Hemoglobin A1c 8.0 H (0.0-6.0) % Calcium (8.7-10.3) mg/dL Albumin (3.8-4.9) g/dL Albumin/Globulin Ratio (1.60-3.17) g/dL Ur Random Creatinine (39.0-259.0) mg/dL 03/11/22 03/12/22 03/12/22 Range/Units 23:37 04:33 04:33 RBC 2.89 L (4.40-5.60) X 10*6/uL Hgb 8.6 L (13.0-17.0) g/dL Hct 28.8 L (39.6-50.0) % MCV 99.7 H (80.0-97.0) fL MCHC 29.9 L (32.0-37.0) g/dL RDW 19.9 H (11.5-14.5) % Lymphocytes # 0.64 L (0.90-5.00) X 10*3/uL BUN 89.6 H (9.0-27.0) mg/dL Creatinine 3.6 H (0.6-1.5) mg/dL Est GFR (CKD-EPI)AfAm 19.0 L (60.0-200.0) Est GFR (CKD-EPI)NonAf 16.4 L (60.0-200.0) BUN/Creatinine Ratio 24.89 H (12.00-20.00) Ratio POC Glucose (mg/dL) (70-110) mg/dL Hemoglobin A1c (0.0-6.0) % Calcium 8.4 L (8.7-10.3) mg/dL Albumin 3.1 L (3.8-4.9) g/dL Albumin/Globulin Ratio 1.00 L (1.60-3.17) g/dL Ur Random Creatinine 19.0 L (39.0-259.0) mg/dL Microbiology - Last 24 Hours (Table) 03/10/22 21:35 Gram Stain - Preliminary Leg - Left Wound Culture - Preliminary Beta Hemolytic Strep Group G 03/10/22 20:53 Blood Culture - Preliminary Blood No Growth after 24 hours 03/10/22 20:40 Blood Culture - Preliminary Blood No Growth after 24 hours Assessment and Plan (1) Chronic ulcer of left leg Current Visit: Yes Status: Acute Code(s): L97.929 - NON-PRS CHRONIC ULC UNSP PRT OF L LOW LEG W UNSP SEVERITY SNOMED Code(s): 47509254 Plan: 1patient with a chronic nonhealing wound to the left lower extremity both on the medial and lateral aspect did have minimal slough tissue however there is no significant surrounding swelling or redness patient not running any fever did have a normal white count clinically doubt cellulitis. 2patient with the abnormal kidney function high risk of nephrotoxicity from the Bactrim DS. 3 local wound care with Santyl followed by moist dressing change daily. Time with Patient: Less than 30
--- NOTE | 2022-03-13 22:45 | P.PN ---
Subjective Progress Note Date: 03/13/22 Principal diagnosis: Left lower extremity wound Patient is a 66-year-old male with a past medical history of "ischemic cardiomyopathy coronary disease hypertension hyperlipidemia left lower extremity DVT chronic kidney disease in this patient who did have a chronic left lower extremity wound on the lateral as well as medial aspect Patient presented to hospital with generalized weakness. On today's evaluation that is 03/13/2022, the patient remains to be afebrile, th e patient is breathing comfortably, patient pain in the left lower extremity wound is currently controlled, no chest pain shortness with or cough no abdominal pain no diarrhea Objective - Vital Signs Vital signs: Vital Signs Temp 97.7 F 03/13/22 07:46 Pulse 71 03/13/22 11:31 Resp 16 03/13/22 11:31 BP 115/69 03/13/22 07:46 Pulse Ox 96 03/13/22 07:46 FiO2 Intake & Output 03/12/22 03/13/22 03/13/22 18:59 06:59 18:59 Intake Total 360 Output Total 50 200 Balance -50 160 Intake: Oral 360 Output: Urine 50 200 Uretheral (Rivera) 50 200 Other: Voiding Method Indwelling Catheter Indwelling Catheter Indwelling Catheter # Voids 3 2 - Exam GENERAL DESCRIPTION: Elderly male lying in bed, no distress. No tachypnea or accessory muscle of respiration use. LUNGS: Unlabored breathing. Decreased breath sound at the base HEART: S1, S2, regular rate and rhythm. No loud murmur ABDOMEN: Soft, no tenderness , guarding or rigidity, no organomegaly EXTREMITIES: Left leg wounds with minimal slough tissue no significant surrounding redness or drainage. - Labs CBC & Chem 7: 03/13/22 19:38 03/13/22 07:18 Labs: Abnormal Lab Results - Last 24 Hours (Table) 03/12/22 03/12/22 03/13/22 Range/Units 16:53 20:38 05:56 BUN (9.0-27.0) mg/dL Creatinine (0.6-1.5) mg/dL Est GFR (CKD-EPI)AfAm (60.0-200.0) Est GFR (CKD-EPI)NonAf (60.0-200.0) BUN/Creatinine Ratio (12.00-20.00) Ratio POC Glucose (mg/dL) 182 H 161 H 125 H (70-110) mg/dL Calcium (8.7-10.3) mg/dL 03/13/22 03/13/22 Range/Units 07:18 11:12 BUN 97.5 H (9.0-27.0) mg/dL Creatinine 3.9 H (0.6-1.5) mg/dL Est GFR (CKD-EPI)AfAm 17.2 L (60.0-200.0) Est GFR (CKD-EPI)NonAf 14.9 L (60.0-200.0) BUN/Creatinine Ratio 25.00 H (12.00-20.00) Ratio POC Glucose (mg/dL) 115 H (70-110) mg/dL Calcium 8.3 L (8.7-10.3) mg/dL Microbiology - Last 24 Hours (Table) 03/10/22 21:35 Gram Stain - Final Leg - Left Wound Culture - Final Beta Hemolytic Strep Group G 03/10/22 20:53 Blood Culture - Preliminary Blood No Growth after 48 hours 03/10/22 20:40 Blood Culture - Preliminary Blood No Growth after 48 hours Assessment and Plan (1) Chronic ulcer of left leg Current Visit: Yes Status: Acute Code(s): L97.929 - NON-PRS CHRONIC ULC UNSP PRT OF L LOW LEG W UNSP SEVERITY SNOMED Code(s): 04063274 Plan: 1patient with a chronic nonhealing wound to the left lower extremity both on the medial and lateral aspect did have minimal slough tissue however there is no significant surrounding swelling or redness patient not running any fever did have a normal white count clinically doubt cellulitis. 2patient with the abnormal kidney function high risk of nephrotoxicity from the Bactrim DS which has been discontinued. 3 we will continuelocal wound care with Santyl followed by moist dressing change daily and monitor clinical course closely. Time with Patient: Less than 30
[2022-03-14] MEDS: Acetaminophen-Codeine 300-30mg TAB PO PRN ×2 (05:29→21:46)
[2022-03-14] MEDS: COLLAGENASE 250 UNIT/GM OINTMENT 30 GM TUBE TOPICAL SCH ×2 (05:45→17:00)
[2022-03-14] MEDS: INSULIN ASPART (NovoLOG) 100 UNIT/ML VIAL SQ SCH ×4 (06:55→21:47)
[2022-03-14 06:57] LABS: Glucose,Whole Blood 106 mg/dL (70-110)
[2022-03-14 07:01] LABS: Anisocytosis Slight; HCT 28.8 % (39.0-53.0); HGB 9.1 gm/dL (13.0-17.5); Hypochromasia Marked; MCH 31.2 pg (25.0-35.0); MCHC 31.7 g/dL (31.0-37.0); MCV 98.4 fL (80.0-100.0); Macrocytosis Slight; Mean Platelet Volume 9.1; Platelet Count 192 k/uL (150-450); Poikilocytosis Slight; RBC 2.93 m/uL (4.30-5.90); RDW 19.5 % (11.5-15.5); WBC 9.2 k/uL (3.8-10.6)
[2022-03-14] MEDS: MIDODRINE 5 MG TAB PO SCH ×3 (07:10→17:30)
[2022-03-14 07:20] LABS: Calcium 7.9 mg/dL (8.4-10.2); Magnesium 1.9 mg/dL (1.6-2.3); Potassium 3.4 mmol/L (3.5-5.1)
[2022-03-14] MEDS ORDERED: POTASSIUM BICARBONATE/CIT AC 20 MEQ TABLET.EFF PO ONE (08:07)
--- NOTE | 2022-03-14 08:40 | P.PN ---
Subjective Patient is seen in follow-up for acute kidney injury on chronic kidney disease. Renal function stable. Urine output about 50 mL an hour. Transfer to ICU yesterday due to concern for GI bleed. Hemoglobin stable. Lasix and Bactrim discontinued 03/11/2022. Vital signs are stable. General: Awake. No acute distress. HEENT: Head exam is unremarkable. On nasal cannula. LUNGS: Breath sounds decreased. HEART: Rate and Rhythm are regular. ABDOMEN: Soft, no distention. EXTREMITITES: Trace edema. Left lower extremity wrapped. No drainage. Objective - Vital Signs Vital signs: Vital Signs Temp 97.7 F 03/14/22 08:00 Pulse 66 03/14/22 08:00 Resp 12 03/14/22 08:00 BP 104/61 03/14/22 08:00 Pulse Ox 96 03/14/22 08:00 FiO2 Intake & Output 03/13/22 03/14/22 03/14/22 18:59 06:59 18:59 Intake Total 100 50 250 Output Total 480 715 125 Balance -380 -665 125 Weight 100.5 kg Intake: Intake, IV Titration 50 Amount ceFAZolin 2 gm In Sodium 50 Chloride 0.9% 50 ml @ 100 mls/hr IVPB Q12HR [facility] Rx #:[id number] Oral 100 250 Output: Urine 480 715 125 Other: Voiding Method Indwelling Catheter Indwelling Catheter - Labs CBC & Chem 7: 03/14/22 06:32 03/14/22 06:32 Labs: Abnormal Lab Results - Last 24 Hours (Table) 03/13/22 03/13/22 03/13/22 Range/Units 07:18 07:18 11:12 RBC (4.30-5.90) m/uL Hgb (13.0-17.5) gm/dL Hct (39.0-53.0) % RDW (11.5-15.5) % Neutrophils # (1.3-7.7) k/uL Lymphocytes # (1.0-4.8) k/uL Sodium (137-145) mmol/L Potassium (3.5-5.1) mmol/L BUN 97.5 H (9.0-27.0) mg/dL Creatinine 3.9 H (0.6-1.5) mg/dL Est GFR (CKD-EPI)AfAm 17.2 L (60.0-200.0) Est GFR (CKD-EPI)NonAf 14.9 L (60.0-200.0) BUN/Creatinine Ratio 25.00 H (12.00-20.00) Ratio POC Glucose (mg/dL) 115 H (70-110) mg/dL Calcium 8.3 L (8.7-10.3) mg/dL Iron 28 L (65-175) ug/dL % Saturation 10.12 L (15.00-50.00) Transferrin 197.0 L (204.0-354.0) mg/dL Ferritin 384.0 H (22.0-322.0) ng/mL 03/13/22 03/13/22 03/13/22 Range/Units 15:40 15:56 17:00 RBC 3.02 L (4.30-5.90) m/uL Hgb 9.3 L (13.0-17.5) gm/dL Hct 29.8 L (39.0-53.0) % RDW 19.2 H (11.5-15.5) % Neutrophils # 8.4 H (1.3-7.7) k/uL Lymphocytes # 0.5 L (1.0-4.8) k/uL Sodium (137-145) mmol/L Potassium (3.5-5.1) mmol/L BUN (9.0-27.0) mg/dL Creatinine (0.6-1.5) mg/dL Est GFR (CKD-EPI)AfAm (60.0-200.0) Est GFR (CKD-EPI)NonAf (60.0-200.0) BUN/Creatinine Ratio (12.00-20.00) Ratio POC Glucose (mg/dL) 132 H 382 H (70-110) mg/dL Calcium (8.7-10.3) mg/dL Iron (65-175) ug/dL % Saturation (15.00-50.00) Transferrin (204.0-354.0) mg/dL Ferritin (22.0-322.0) ng/mL 03/13/22 03/14/22 03/14/22 Range/Units 19:38 06:32 06:32 RBC 2.93 L 2.93 L (4.30-5.90) m/uL Hgb 9.1 L 9.1 L (13.0-17.5) gm/dL Hct 28.6 L 28.8 L (39.0-53.0) % RDW 19.3 H 19.5 H (11.5-15.5) % Neutrophils # 8.8 H (1.3-7.7) k/uL Lymphocytes # 0.5 L (1.0-4.8) k/uL Sodium 135 L (137-145) mmol/L Potassium 3.4 L (3.5-5.1) mmol/L BUN 100 H (9.0-27.0) mg/dL Creatinine 3.77 H (0.6-1.5) mg/dL Est GFR (CKD-EPI)AfAm (60.0-200.0) Est GFR (CKD-EPI)NonAf (60.0-200.0) BUN/Creatinine Ratio (12.00-20.00) Ratio POC Glucose (mg/dL) (70-110) mg/dL Calcium 7.9 L (8.7-10.3) mg/dL Iron (65-175) ug/dL % Saturation (15.00-50.00) Transferrin (204.0-354.0) mg/dL Ferritin (22.0-322.0) ng/mL Microbiology - Last 24 Hours (Table) 03/10/22 20:53 Blood Culture - Preliminary Blood No Growth after 72 hours 03/10/22 20:40 Blood Culture - Preliminary Blood No Growth after 72 hours 03/10/22 21:35 Anaerobic Culture - Preliminary Leg - Left 03/10/22 21:35 Gram Stain - Final Leg - Left Wound Culture - Final Beta Hemolytic Strep Group G Assessment and Plan Plan: Assessment: 1. Acute kidney injury secondary to ATN and further worsened with the use of Bactrim. Creatinine peaked at 3.9 this admission - 3.77 today. UA fairly benign. No hydronephrosis noted on kidney ultrasound. 2. Chronic kidney disease stage IV with baseline creatinine in the range of 2.5-3. 3. Leftlower extremity cellulitis status post Bactrim. ID following. 4. Anemia of chronic kidney disease. Iron deficiency noted. Stool for occult blood positive. Hemoglobin stable. Eliquis stopped. 5. Volume overload. Status post IV Lasix yesterday. 6. Hypokalemia from diuresis. Magnesium normal. Plan: Add IV iron. Replace potassium. Avoid nephrotoxins. Continue to monitor renal function and urine output. Maintain midodrine. Cortisol level normal. We will repeat IV Lasix if urine output drops.
[2022-03-14] MEDS ORDERED: PANTOPRAZOLE 40 MG/10 ML VIAL IVP SCH (09:00)
--- NOTE | 2022-03-14 09:14 | US ---
EXAMINATION TYPE: US venous doppler duplex LE DATE OF EXAM: 03/14/2022 8:31 AM COMPARISON: US 03/10/2010 CLINICAL HISTORY: h/o DVT. Exam done portable in ICU SIDE PERFORMED: Bilateral TECHNIQUE: The lower extremity deep venous system is examined utilizing real time linear array sonog randa with graded compression, doppler sonography and color-flow sonography. VESSELS IMAGED: Common Femoral Vein Deep Femoral Vein Greater Saphenous Vein * Femoral Vein Popliteal Vein Small Saphenous Vein * Proximal Calf Veins (* superficial vessels) Right Leg: Appears negative for DVT Left Leg: Appears negative for DVT IMPRESSION: Grayscale, color doppler, spectral doppler imaging performed of the deep veins of the lo wer extremities. There is normal flow, compressibility, vascular waveforms.
[2022-03-14] MEDS: allopurinoL 100 MG TAB PO SCH (10:13)
[2022-03-14] MEDS: METOPROLOL SUCCINATE (ER) 50 MG TAB.ER.24H PO SCH (10:13)
[2022-03-14] MEDS: ISOSORBIDE MONONITRATE ER 30 MG TAB.ER.24H PO SCH (10:13)
[2022-03-14] MEDS: FLUoxetine HCL 20 MG CAP PO SCH (10:13)
[2022-03-14] MEDS: ATORVASTATIN 80 MG TAB PO SCH (10:13)
[2022-03-14] MEDS: SODIUM FERRIC GLUCONAT-SUCROSE 125 MG in SODIUM CHLORIDE 0.9% 100 ML IVPB SCH (10:42)
[2022-03-14 11:41] LABS: Glucose,Whole Blood 136 mg/dL (70-110)
[2022-03-14] MEDS ORDERED: PEG 3350 (236 GM/BTL) + LYTES 4,000 ML BOTTLE PO ONE (11:48)
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
--- NOTE | 2022-03-14 12:18 | P.PN ---
Progress Note - Text Progress Note Date: 03/14/22 Chief Complaint: Short of breath This is a pleasant 66-year-old patient, follows with Dr. Mike Escobar. Chronic stable medical conditions include CAD with stent, diabetes, hypertension, hyperlipidemia anxiety. CAD, hyperuricemia, left leg DVT in October 2021, CHF EF 20 -25% hospital from November 14 through November 21/2022 with leg wounds. seen by ID and vascular. Wound culture - stenotrophomonas maltophilia. Patient does follow the wound care center. Patient now presents with multiple symptoms. Hurting all over. Short of breath. Decreased appetite. Hasn't really eaten for 5 days. Feeling weak. Normally has bowel movements about twice a week. Finding it difficult to walk. He had called 911 as he could not get up to tolerate. Denies any fever and chills. He lists his sister who cannot take care of him anymore. 03/12/2022: Sitting up in a recliner. Eating. Appears comfortable. Case management is looking into placement. Oral intake about 25%. Also has a a acute kidney injury secondary to ATN from Bactrim. IV fluids. Lasix being held. 03/13/2022: Patient was seen this morning. Decreased appetite. Seen by vascular. Right arm swelling appears to be from cellulitis. Has been on Keflex. Right arm elevated. Negative for DVT. 03/14/2022: Patient yesterday had a large dark stool. 2 episodes. Moved to the ICU. ReceivedK-centra. No drop in hemoglobin. Today started on clear liquids. No further bleed. Doppler ultrasound lower extremity ordered. We'll have vascular follow with the results. Active Medications Acetaminophen (Acetaminophen Tab 325 Mg Tab) 650 mg PO Q6HR PRN PRN Reason: Mild Pain or Fever > 100.5 Acetaminophen/Codeine Phosphate (Acetaminophen-Codeine 300-30mg Tab) 1 each PO Q4HR PRN PRN Reason: Moderate to Severe Pain Last Admin: 03/14/22 05:29 Dose: 1 each Allopurinol (Allopurinol 100 Mg Tab) 100 mg PO DAILY [facility] Last Admin: 03/14/22 10:13 Dose: 100 mg Alprazolam (Alprazolam 0.25 Mg Tab) 0.25 mg PO BID PRN PRN Reason: Anxiety Atorvastatin Calcium (Atorvastatin 80 Mg Tab) 80 mg PO DAILY [facility] Last Admin: 03/14/22 10:13 Dose: 80 mg Calcium Carbonate/Glycine (Calcium Carbonate 500 Mg Chewable) 1,000 mg PO Q4HR PRN PRN Reason: Dyspepsia Collagenase (Collagenase 250 Unit/Gm Ointment 30 Gm Tube) 1 applic TOPICAL DAILY [facility]; Protocol Last Admin: 03/14/22 05:45 Dose: 1 applic Dextrose/Water (Dextrose 50% Syringe 50 Ml) 25 ml IVP PER PROTOCOL PRN; Protocol PRN Reason: Hypoglycemia Dextrose/Water (Dextrose 50% Syringe 50 Ml) 50 ml IVP PER PROTOCOL PRN; Protocol PRN Reason: Hypoglycemia Fluoxetine HCl (Fluoxetine Hcl 20 Mg Cap) 20 mg PO DAILY [facility] Last Admin: 03/14/22 10:13 Dose: 20 mg Cefazolin Sodium 2 gm/ Sodium (Chloride) 50 mls @ 100 mls/hr IVPB Q12HR [facility]; Protocol Last Admin: 03/14/22 10:12 Dose: 100 mls/hr Ferric Sodium Gluconate 125 mg (/ Sodium Chloride) 110 mls @ 100 mls/hr IVPB DAILY [facility] Stop: 03/17/22 09:31 Last Admin: 03/14/22 10:42 Dose: 100 mls/hr Insulin Aspart (Insulin Aspart (Novolog) 100 Unit/Ml Vial) 0 unit SQ ACHS [facility]; Protocol Last Admin: 03/14/22 06:55 Dose: Not Given Isosorbide Mononitrate (Isosorbide Mononitrate Er 30 Mg Tab.Er.24h) 30 mg PO DAILY [facility] Last Admin: 03/14/22 10:13 Dose: 30 mg Lactulose (Lactulose 20 Gm/30 Ml Cup) 20 gm PO DAILY PRN PRN Reason: Constipation Last Admin: 03/13/22 10:47 Dose: 20 gm Metoprolol Succinate (Metoprolol Succinate (Er) 50 Mg Tab.Er.24h) 50 mg PO D AILY [facility] Last Admin: 03/14/22 10:13 Dose: 50 mg Midodrine (Midodrine 5 Mg Tab) 5 mg PO AC-TID [facility] Last Admin: 03/14/22 07:10 Dose: 5 mg Nitroglycerin (Nitroglycerin Sl Tabs 0.4 Mg Tab) 0.4 mg SUBLINGUAL Q5M PRN PRN Reason: Chest Pain Pantoprazole Sodium (Pantoprazole 40 Mg/10 Ml Vial) 40 mg IVP BID [facility] Tamsulosin HCl (Tamsulosin 0.4 Mg Cap.Er.24h) 0.4 mg PO HS [facility] Last Admin: 03/13/22 21:44 Dose: 0.4 mg Past medical history to include: CAD with stent, diabetes, hypertension, hyperlipidemia, skin cancer on the nose in August 2020, anxiety, left leg common femoral DVT October 2021, hyperuricemia, hepatic steatosis, CHF EF 20-25%. 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 Alcohol rarely. Living with his sister Family history: Diabetes, CAD Physical examination: VITAL SIGNS: 97.7, 77, 12, 121 with 67, 99% on 2 L GENERAL: In bed, awake EYES: Pupils equal. Conjunctiva normal. HEENT: External appearance of nose and ears normal, oral cavity grossly normal. NECK: JVD possibly raised; masses not palpable. HEART: First and second heart sounds are normal; some edema. LUNGS: Respiratory rate increased; decreased breath sound . ABDOMEN: Soft, nontender, liver spleen not palpable, no masses palpable. PSYCH: [Alert and oriented x3; mood and affect slightly anxious LYMPHATICS: No lymph node palpable neck and axilla Musculoskeletal: Evidence of OA. Some swelling of the right upper extremity- distal to the elbow, some tenderness and redness DERMATOLOGICAL: Dressing on the left leg on wounds INVESTIGATIONS, reviewed in the clinical context: 03/14/2022: White count 9.2 hemoglobin 9.1 potassium 3.4 creatinine 3.77 03/13/2022: Hemoglobin 9.3 platelets 179 potassium 3.7 creatinine 3.9 March 12: WBC 8.0 hemoglobin 8.6 platelets 162 potassium 3.5 creatinine 3.6 WBC 9 hemoglobin 9.4 platelets 158 INR 1.5 sodium 135 potassium 4.1. 92 creatinine 2.75 COVID 19/influenza type A/influenza type B: Not detected EKG tracing personally reviewed by me-sinus rhythm, right by her plan block, PVCs Chest x-ray film personally reviewed by me-cardiomegaly. No infiltrates Previous studies: 2-D echocardiogram: EF 20-25%. Left lower extremity venous Doppler: DVT in the common femoral vein. Gallbladder ultrasound: Gallbladder filled with stones. Possible hepatic steatosis. Arterial Doppler results discussed with Dr. Cuppari: No evidence of vascular compromise Assessment and plan: -Acute kidney injury from ATN.: Slow to respond Follow with nephrology. Lasix held. Bactrim was discontinued. IV fluids. -Acute GI bleed in a patient being on eliquis. On March 13. ReceivedK-centra Eliquis discontinued. Aspirin discontinued. -Acute on chronic medical debility. Multifactorial. 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 -chronic congestive heart failure from ischemic cardiomyopathy EF 20-25%. Toprol-XL. Aldactone held - chronic multiple wounds painful left lower extremity left calf and left ankle likely from venous ulcers from recent DVT. Follow with wound care team/Dr. saleem, ID -Chronic DVT of the left common femoral vein, in 10/16/2021 eliquis . -Acute cellulitis right upper arm distally. Keflex. Seen by vascular -Choledocholithiasis. Asymptomatic -CAD with a history of stent Aspirin 81 mg daily, Lopressor -Diabetes mellitus type 2, chronically on insulin Follow Accu-Cheks and sliding scale insulin. 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 Stable. Can be moved out. Doppler ultrasound lower extremity. vascular evaluate need for IVC filter. Discussed with patient.
--- NOTE | 2022-03-14 12:27 | P.PN ---
Subjective Progress Note Date: 03/14/22 CHIEF COMPLAINT: GI bleed HISTORY OF PRESENT ILLNESS: Patient transferred to the ICU yesterday due to con elainens for GI bleed. He had a large blackish brown stool. He did receive Kcentra yesterday. Stool for occult blood is positive. Patient denies any prior history of endoscopies. He's had no further bleeding. He is receiving IV iron this morning. Patient had been on oral iron. Afebrile. Vitals stable. Hemoglobin stable at 9.1 WBC 9.2 platelets 192 sodium 135 potassium is 3.4 creatinine 3.77 magnesium 1.9 patient denies any abdominal pain. Denies any nausea vomiting. PHYSICAL EXAM: VITAL SIGNS: Reviewed. GENERAL: Well-developed in no acute distress. Pale ABDOMEN: Soft. Nondistended. Nontender. NEUROLOGIC: Alert and oriented. Cranial nerves II through XII grossly intact. ASSESSMENT: 1. Acute GI bleed with black stool 2. Anemia 3. History of DVT leg on Eliquis 4. Acute on chronic kidney disease 5. Hypokalemia PLAN: -Patient scheduled for EGD and colonoscopy tomorrow, 03/15/[address] Da Silva -Start GoLYTELY prep today -Continue clear liquid diet -Nothing by mouth after midnight -Potassium being replaced Physician Radar Repairer note has been reviewed by physician. Signing provider agrees with the documented findings, assessment, and plan of care. I have personally seen and examined the patient, reviewed the GENERAL PRODUCTION LABORER /PAs history, exam and MDM and agree with the assessment and plan as written. Based on total visit time, I have performed more than 50% of the visit. As above: Patient doing well today. He did not have any further bleeding. No pain. We'll proceed with upper and lower endoscopy tomorrow. Objective - Vital Signs Vital signs: Vital Signs Temp 97.7 F 03/14/22 12:00 Pulse 67 03/14/22 12:00 Resp 10 L 03/14/22 12:00 BP 121/67 03/14/22 12:00 Pulse Ox 99 03/14/22 12:00 FiO2 Intake & Output 03/13/22 03/14/22 03/14/22 18:59 06:59 18:59 Intake Total 100 50 350 Output Total 480 715 325 Balance -380 665 25 Weight 100.5 kg 100.5 kg Intake: Intake, IV Titration 50 100 Amount Sodium Ferric Gluconat- 100 Sucrose 125 mg In Sodium Chloride 0.9% 100 ml @ 100 mls/hr IVPB DAILY [facility] Rx#:[id number] ceFAZolin 2 gm In Sodium 50 Chloride 0.9% 50 ml @ 100 mls/hr IVPB Q12HR [facility] Rx #:[id number] Oral 100 250 Output: Urine 480 715 325 Other: Voiding Method Indwelling Catheter Indwelling Catheter Indwelling Catheter - Labs CBC & Chem 7: 03/14/22 06:32 03/14/22 14:35 Labs: Abnormal Lab Results - Last 24 Hours (Table) 03/13/22 03/13/22 03/13/22 Range/Units 07:18 15:40 15:56 RBC 3.02 L (4.30-5.90) m/uL Hgb 9.3 L (13.0-17.5) gm/dL Hct 29.8 L (39.0-53.0) % RDW 19.2 H (11.5-15.5) % Neutrophils # 8.4 H (1.3-7.7) k/uL Lymphocytes # 0.5 L (1.0-4.8) k/uL Sodium (137-145) mmol/L Potassium (3.5-5.1) mmol/L BUN (9-20) mg/dL Creatinine (0.66-1.25) mg/dL POC Glucose (mg/dL) 132 H (70-110) mg/dL Calcium (8.4-10.2) mg/dL Iron 28 L (65-175) ug/dL % Saturation 10.12 L (15.00-50.00) Transferrin 197.0 L (204.0-354.0) mg/dL Ferritin 384.0 H (22.0-322.0) ng/mL 03/13/22 03/13/22 03/14/22 Range/Units 17:00 19:38 06:32 RBC 2.93 L (4.30-5.90) m/uL Hgb 9.1 L (13.0-17.5) gm/dL Hct 28.6 L (39.0-53.0) % RDW 19.3 H (11.5-15.5) % Neutrophils # 8.8 H (1.3-7.7) k/uL Lymphocytes # 0.5 L (1.0-4.8) k/uL Sodium 135 L (137-145) mmol/L Potassium 3.4 L (3.5-5.1) mmol/L BUN 100 H (9-20) mg/dL Creatinine 3.77 H (0.66-1.25) mg/dL POC Glucose (mg/dL) 382 H (70-110) mg/dL Calcium 7.9 L (8.4-10.2) mg/dL Iron (65-175) ug/dL % Saturation (15.00-50.00) Transferrin (204.0-354.0) mg/dL Ferritin (22.0-322.0) ng/mL 03/14/22 03/14/22 Range/Units 06:32 11:40 RBC 2.93 L (4.30-5.90) m/uL Hgb 9.1 L (13.0-17.5) gm/dL Hct 28.8 L (39.0-53.0) % RDW 19.5 H (11.5-15.5) % Neutrophils # (1.3-7.7) k/uL Lymphocytes # (1.0-4.8) k/uL Sodium (137-145) mmol/L Potassium (3.5-5.1) mmol/L BUN (9-20) mg/dL Creatinine (0.66-1.25) mg/dL POC Glucose (mg/dL) 136 H (70-110) mg/dL Calcium (8.4-10.2) mg/dL Iron (65-175) ug/dL % Saturation (15.00-50.00) Transferrin (204.0-354.0) mg/dL Ferritin (22.0-322.0) ng/mL Microbiology - Last 24 Hours (Table) 03/10/22 20:53 Blood Culture - Preliminary Blood No Growth after 72 hours 03/10/22 20:40 Blood Culture - Preliminary Blood No Growth after 72 hours 03/10/22 21:35 Anaerobic Culture - Preliminary Leg - Left 03/10/22 21:35 Gram Stain - Final Leg - Left Wound Culture - Final Beta Hemolytic Strep Group G
[2022-03-14 16:57] LABS: Glucose,Whole Blood 150 mg/dL (70-110)
[2022-03-14 21:28] LABS: Glucose,Whole Blood 199 mg/dL (70-110)
[2022-03-14] MEDS: TAMSULOSIN 0.4 MG CAP.ER.24H PO SCH (21:47)
[2022-03-14] MEDS: PANTOPRAZOLE 40 MG/10 ML VIAL IVP SCH (21:47)
[2022-03-15 06:19] LABS: Glucose,Whole Blood 148 mg/dL (70-110)
[2022-03-15] MEDS: INSULIN ASPART (NovoLOG) 100 UNIT/ML VIAL SQ SCH ×4 (06:33→21:20)
[2022-03-15 08:55] LABS: HCT 28.9 % (39.6-50.0); HGB 8.8 g/dL (13.0-17.0); MCH 29.4 pg (27.0-32.0); MCHC 30.4 g/dL (32.0-37.0); MCV 96.7 fL (80.0-97.0); Mean Platelet Volume 10.9 fL (9.5-12.2); NRBC Per 100 WBC 0 /100 WBCS (0.0-0.0); Platelet Count 203 X 10*3/uL (140-440); RBC 2.99 X 10*6/uL (4.40-5.60); RDW 20.2 % (11.5-14.5)
[2022-03-15] MEDS: Acetaminophen-Codeine 300-30mg TAB PO PRN ×2 (09:06→16:56)
[2022-03-15] MEDS: SODIUM FERRIC GLUCONAT-SUCROSE 125 MG in SODIUM CHLORIDE 0.9% 100 ML IVPB SCH (09:06)
[2022-03-15] MEDS: ISOSORBIDE MONONITRATE ER 30 MG TAB.ER.24H PO SCH (09:07)
[2022-03-15] MEDS: PANTOPRAZOLE 40 MG/10 ML VIAL IVP SCH ×2 (09:07→21:21)
[2022-03-15] MEDS: METOPROLOL SUCCINATE (ER) 50 MG TAB.ER.24H PO SCH (09:07)
[2022-03-15] MEDS: ATORVASTATIN 80 MG TAB PO SCH (09:07)
[2022-03-15] MEDS: MIDODRINE 5 MG TAB PO SCH ×3 (09:07→16:55)
[2022-03-15] MEDS: allopurinoL 100 MG TAB PO SCH (09:07)
[2022-03-15] MEDS: FLUoxetine HCL 20 MG CAP PO SCH (09:07)
[2022-03-15] MEDS: COLLAGENASE 250 UNIT/GM OINTMENT 30 GM TUBE TOPICAL SCH (09:08)
--- NOTE | 2022-03-15 09:31 | P.PN ---
Subjective Patient is seen in follow-up for acute kidney injury on chronic kidney disease. Renal function stable. Creatinine 3.77 yesterday. Nonoliguric. No active bleeding. Hemoglobin stable at 8.8. Lasix and Bactrim discontinued 03/11/2022. Vital signs are stable. General: Awake. No acute distress. HEENT: Head exam is unremarkable. On nasal cannula. LUNGS: Breath sounds decreased. HEART: Rate and Rhythm are regular. ABDOMEN: Soft, no distention. EXTREMITITES: Trace edema. Left lower extremity wrapped. No drainage. Objective - Vital Signs Vital signs: Vital Signs Temp 98.6 F 03/15/22 08:00 Pulse 69 03/15/22 08:00 Resp 15 03/15/22 08:00 BP 118/72 03/15/22 08:00 Pulse Ox 98 03/15/22 08:00 FiO2 Intake & Output 03/14/22 03/15/22 03/15/22 18:59 06:59 18:59 Intake Total 1950 Output Total 580 902 Balance 1370 -902 Weight 100.5 kg 98 kg Intake: Intake, IV Titration 100 Amount Sodium Ferric Gluconat- 100 Sucrose 125 mg In Sodium Chloride 0.9% 100 ml @ 100 mls/hr IVPB DAILY [facility] Rx#:[id number] Oral 1850 Output: Urine 580 900 Stool 2 Other: Voiding Method Indwelling Catheter Indwelling Catheter - Labs CBC & Chem 7: 03/15/22 06:28 03/14/22 14:35 Labs: Abnormal Lab Results - Last 24 Hours (Table) 03/14/22 03/14/22 03/14/22 Range/Units 11:40 16:56 21:09 RBC (4.40-5.60) X 10*6/uL Hgb (13.0-17.0) g/dL Hct (39.6-50.0) % MCHC (32.0-37.0) g/dL RDW (11.5-14.5) % POC Glucose (mg/dL) 136 H 150 H 199 H (70-110) mg/dL 03/15/22 03/15/22 Range/Units 06:08 06:28 RBC 2.99 L (4.40-5.60) X 10*6/uL Hgb 8.8 L (13.0-17.0) g/dL Hct 28.9 L (39.6-50.0) % MCHC 30.4 L (32.0-37.0) g/dL RDW 20.2 H (11.5-14.5) % POC Glucose (mg/dL) 148 H (70-110) mg/dL Microbiology - Last 24 Hours (Table) 03/10/22 20:40 Blood Culture - Preliminary Blood No Growth after 96 hours 03/10/22 20:53 Blood Culture - Preliminary Blood No Growth after 96 hours Assessment and Plan Plan: Assessment: 1. Acute kidney injury secondary to ATN and further worsened with the use of Bactrim. Creatinine peaked at 3.9 this admission - 3.77 yesterday. UA fairly benign. No hydronephrosis noted on kidney ultrasound. 2. Chronic kidney disease stage IV with baseline creatinine in the range of 2.5-3. 3. Left lower extremity cellulitis status post Bactrim. ID following. 4. Anemia of chronic kidney disease. Iron deficiency noted. Stool for occult blood positive. Hemoglobin stable. Eliquis stopped. Scheduled for EGD and colonoscopy today. 5. Volume overload. Status post IV Lasix this admission. Better. 6. Hypokalemia from diuresis. Magnesium normal. Replace. Better. Plan: Maintain IV iron. Avoid nephrotoxins. Continue to monitor renal function and urine output. Maintain midodrine. Cortisol level normal. Follow-up morning labs.
[2022-03-15 10:42] LABS: African American GFR (CKD) 22.1 (60.0-200.0); Anion Gap 15.1 mmol/L (10.00-18.00); BUN/Creat Ratio 26.47 Ratio (12.00-20.00); Blood Urea Nitrogen 83.9 mg/dL (9.0-27.0); Calcium 8.3 mg/dL (8.7-10.3); Carbon Dioxide 19.7 mmol/L (20.0-27.5); Non-African American GFR(CKD) 19.1 (60.0-200.0); Potassium 4.3 mmol/L (3.5-5.5)
--- NOTE | 2022-03-15 11:11 | CDI ---
Documentation Clarification Form Date: 03/15/2022 10:59:36 AM From: Addie Gibson CCS, CCDS Admit Date: 03/12/2022 09:43:00 AM Patient Name: Jabier Mitchell Visit Number: [id number] Discharge Date: ATTENTION: The Clinical Documentation Specialists (CDI) and [facility] Coding Staff appreciate your assistance in clarifying documentation. Please respond to the clarification below the line at the bottom and electronically sign. The CDI & [facility] Coding staff will review the response and follow-up if needed. Please note: Queries are made part of the Legal Health Record. If you have any questions, please contact the author of this message via ITS. Dr. Derick Johnson: Conflicting documentation has been found in the medical record. As attending physician, please provide clarification. Chronic Kidney Disease Stage III from Diabetic Nephropathy and Nephrosclerosis is documented in the patient's Past Medical History, the 03/11 History & Physical and in subsequent Attending Physician Progress Notes. Chronic Kidney Disease Stage IV with baseline Creatinine of 1.5 - 1.8 per the 03/11 Nephrology Consult and in subsequent Nephrology Progress Notes. History/Risk Factors per the 03/11 H/P: CAD w/stent, DM II, Hypertension, Hyperlipidemia, Anxiety, Left Leg DVT in November, CHF w/EF 20-25%, Hepatic Steatosis, CKD III, COVID 19, Anxiety, Depression, Non-smoker. Clinical Indicators: Presented to the ED on 03/10 via EMS with weakness, generalized fatigue, vomiting, left lower leg cellulitis and pain in his right forearm. Admit with Generalized Weakness, Edema of Right Upper Arm and Chronic Ulcers of the Left leg. LAB: BUN: 03/10: 92. 03/12: 89.6. 03/13: 97.5. 03/14: 100. 03/15: 83.9. Creatinine: 03/10: 2.75. 03/12: 3.6. 03/13: 3.9. 03/14: 3.77. 03/15: 3.2. GFR: 03/10: 23. 03/12: 16.4. 03/13: 14.9. 03/14: 16. 03/15: 19.1. Treatment per 03/11 Nephrology Consult: Acute renal analysis and urine electrolytes, Hold Lasix, add normal saline 75 mls/hr overnight, Change Bactrim to an alternative antibiotic, Avoid nephrotoxic agents & hypotensive episodes. Please clarify which diagnosis is most appropriate: [ ] CKD Stage III [ ] CKD Stage IV [ ] Other (please specify) [ ] Unable to determine (Template Last Revised: July 2020) Chronic kidney disease stage IV MTDD
[2022-03-15 11:26] LABS: Glucose,Whole Blood 143 mg/dL (70-110)
--- NOTE | 2022-03-15 13:14 | P.PN ---
Subjective Progress Note Date: 03/15/22 This is a 66-year-old white male with history of multiple medical problems, patient was admitted on 03/10/2022, he was mostly admitted with mostly symptoms of weakness. Patient was diagnosed with acute on chronic medical debility, chronic congestive heart failure/systolic in nature with ejection fraction of 20-25%. He had cellulitis of the left lower extremity and history of DVT in the left lower extremity back in October of 2021. This was unprovoked deep vein thrombosis. Patient was also noted to have ischemic cardiomyopathy, choledocholithiasis, coronary artery disease with history of stent placement, type 2 diabetes, dyslipidemia, hypertension, and since then the patient has been seen by multiple consultants. Patient was seen by nephrology for his renal failure, infectious disease for his cellulitis, vascular surgery for his right upper extremity swelling and for his cellulitis. Patient developed a sudden episode of black stools yesterday, apparently the amount was quite extensive, she did not develop any hemodynamic instability, however his admitting physician Dr. Johnson was concerned, he called me about this patient, and I recommended transfer to the ICU. I saw him today, patient is doing well, his black stools are now more brown than black, patient did not require any blood transfusion overnight, however he remains of eliquis, and I'm recommending a venous Doppler on the left lower extremity, if the patient truly has ongoing deep vein thrombosis of the left lower extremity, he may require an IVC filter placement. And considering the patient did not require blood transfusion overnight, and he is not actively bleeding clinically, I'm recommending that he goes back to the regular medical floor. Patient should be on telemetry considering his underlying cardiomyopathy and LV dysfunction. His hemoglobin is 9.1 today, was 9.1 yesterday. His electrolytes are normal however his BUN is 100 creatinine is 3.77 and this is being addressed by nephrology on the case. His labs today were all reviewed. Venous Doppler was repeated today, and at this point he has negative deep vein thromboses in the right leg and negative deep vein thromboses in the left leg. The patient is seen today 03/15/2022 in follow-up on the regular medical floor. He is currently resting comfortably in bed. Awake and alert in no acute distress. No active bleeding noted. White count 9.3. Hemoglobin 8.8. Sodium 135. Potassium 4.3. Doppler of the lower extremities were negative for DVT. Left leg wound culture is positive for beta-hemolytic strep group G. He is continued on cefazolin. Objective - Vital Signs Vital signs: Vital Signs Temp 98.6 F 03/15/22 08:00 Pulse 69 03/15/22 08:00 Resp 15 03/15/22 08:00 BP 118/72 03/15/22 08:00 Pulse Ox 98 03/15/22 08:00 FiO2 Intake & Output 03/14/22 03/15/22 03/15/22 18:59 06:59 18:59 Intake Total 1950 150 Output Total 580 902 Balance 1370 -902 150 Weight 100.5 kg 98 kg Intake: Intake, IV Titration 100 150 Amount Sodium Ferric Gluconat- 100 100 Sucrose 125 mg In Sodium Chloride 0.9% 100 ml @ 100 mls/hr IVPB DAILY [facility]AN Rx#:[id number] ceFAZolin 2 gm In Sodium 50 Chloride 0.9% 50 ml @ 100 mls/hr IVPB Q12HR [facility] Rx #:[id number] Oral 1850 Output: Urine 580 900 Stool 2 Other: Voiding Method Indwelling Catheter Indwelling Catheter Indwelling Catheter - Exam GENERAL: Revealed a pleasant 66-year-old collin patient, on 3 L nasal cannula, in no acute distress. EYES: No active emesis, PERRLA, EOMI.. HEENT: Dry mucous membranes, no evidence of mucositis or thrush. NECK: Supple no JVD no stridor. No masses HEART: Distant S1 and S2, no S3 gallop. LUNGS: Symmetrical chest expansion diminished breath sounds at the bases no crackles or rhonchi or wheezes ABDOMEN: Soft nontender no megaly no rebound no guarding. PSYCH: Normal mood affect and normal mental status examination LYMPHATICS: No adenopathy. Musculoskeletal: No deformities and no limitation in range of motion DERMATOLOGICAL: Left lower extremity is wrapped with sterile dressing - Labs CBC & Chem 7: 03/15/22 06:28 03/15/22 06:28 Labs: Abnormal Lab Results - Last 24 Hours (Table) 03/14/22 03/14/22 03/15/22 Range/Units 16:56 21:09 06:08 RBC (4.40-5.60) X 10*6/uL Hgb (13.0-17.0) g/dL Hct (39.6-50.0) % MCHC (32.0-37.0) g/dL RDW (11.5-14.5) % Carbon Dioxide (20.0-27.5) mmol/L BUN (9.0-27.0) mg/dL Creatinine (0.6-1.5) mg/dL Est GFR (CKD-EPI)AfAm (60.0-200.0) Est GFR (CKD-EPI)NonAf (60.0-200.0) BUN/Creatinine Ratio (12.00-20.00) Ratio Glucose (70-110) mg/dL POC Glucose (mg/dL) 150 H 199 H 148 H (70-110) mg/dL Calcium (8.7-10.3) mg/dL 03/15/22 03/15/22 03/15/22 Range/Units 06:28 06:28 11:24 RBC 2.99 L (4.40-5.60) X 10*6/uL Hgb 8.8 L (13.0-17.0) g/dL Hct 28.9 L (39.6-50.0) % MCHC 30.4 L (32.0-37.0) g/dL RDW 20.2 H (11.5-14.5) % Carbon Dioxide 19.7 L (20.0-27.5) mmol/L BUN 83.9 H (9.0-27.0) mg/dL Creatinine 3.2 H (0.6-1.5) mg/dL Est GFR (CKD-EPI)AfAm 22.1 L (60.0-200.0) Est GFR (CKD-EPI)NonAf 19.1 L (60.0-200.0) BUN/Creatinine Ratio 26.47 H (12.00-20.00) Ratio Glucose 137 H (70-110) mg/dL POC Glucose (mg/dL) 143 H (70-110) mg/dL Calcium 8.3 L (8.7-10.3) mg/dL Microbiology - Last 24 Hours (Table) 03/10/22 21:35 Anaerobic Culture - Final Leg - Left 03/10/22 20:40 Blood Culture - Preliminary Blood No Growth after 96 hours 03/10/22 20:53 Blood Culture - Preliminary Blood No Growth after 96 hours Assessment and Plan Assessment: Acute GI bleeding, most likely upper GI in nature since the patient presented with black stools, however the patient is not actively bleeding at present, and the patient should be contained on PPIs, surgery was consulted, may eventually require EGD. Or even colonoscopy. History of DVT involving left lower extremity, presently no evidence of DVT on venous Doppler. Hence continue to hold eliquis for now. And no need for IVC filter at this point. Choledocholithiasis, asymptomatic. Cellulitis of left lower extremity being addressed by infectious disease on the case. Currently on cefazolin Chronic congestive heart failure, systolic in nature, ejection fraction of 20- 25%. Diabetic peripheral neuropathy. Type 2 diabetes. Benign essential hypertension. Dyslipidemia. Coronary artery disease and previous stent placement. Plan: The patient was seen and evaluated Doppler of the lower extremities negative for DVT, remain off Eliquis Heparin for DVT prophylaxis Scheduled for EGD/colonoscopy Titrate the FiO2 as tolerated We will continue to follow I have personally seen and examined the patient, performed the documentation and the assessment and plan as written. Number of minutes spent on the visit: 10.
[2022-03-15] MEDS ORDERED: PROPOFOL 10 MG/ML 20 ML VIAL IV ONE (15:05)
[2022-03-15] MEDS ORDERED: LIDOCAINE 2% INJ 20 MG/ML (2 ML VIAL) ONE (15:05)
[2022-03-15] MEDS ORDERED: PHENYLEPHRINE-0.9% NACL SYG 1,000 MCG/10 ML SYRINGE ONE (15:05)
--- NOTE | 2022-03-15 15:14 | P.PN ---
Progress Note - Text Progress Note Date: 03/15/22 Chief Complaint: Short of breath This is a pleasant 66-year-old patient, follows with Dr. Mike Escobar. Chronic stable medical conditions include CAD with stent, diabetes, hypertension, hyperlipidemia anxiety. CAD, hyperuricemia, left leg DVT in October 2021, CHF EF 20 -25% hospital from November 14 through November 21/2022 with leg wounds. seen by ID and vascular. Wound culture - stenotrophomonas maltophilia. Patient does follow the wound care center. Patient now presents with multiple symptoms. Hurting all over. Short of breath. Decreased appetite. Hasn't really eaten for 5 days. Feeling weak. Normally has bowel movements about twice a week. Finding it difficult to walk. He had called 911 as he could not get up to tolerate. Denies any fever and chills. He lists his sister who cannot take care of him anymore. 03/12/2022: Sitting up in a recliner. Eating. Appears comfortable. Case management is looking into placement. Oral intake about 25%. Also has a a acute kidney injury secondary to ATN from Bactrim. IV fluids. Lasix being held. 03/13/2022: Patient was seen this morning. Decreased appetite. Seen by vascular. Right arm swelling appears to be from cellulitis. Has been on Keflex. Right arm elevated. Negative for DVT. 03/14/2022: Patient yesterday had a large dark stool. 2 episodes. Moved to the ICU. ReceivedK-centra. No drop in hemoglobin. Today started on clear liquids. No further bleed. Doppler ultrasound lower extremity ordered. We'll have vascular follow with the results. 03/15/2022: Patient seen this morning. Resting in bed. Give endoscopy today. Nothing by mouth. Taking his bowel preparation. Had some dark stool overnight. Active Medications Acetaminophen (Acetaminophen Tab 325 Mg Tab) 650 mg PO Q6HR PRN PRN Reason: Mild Pain or Fever > 100.5 Acetaminophen/Codeine Phosphate (Acetaminophen-Codeine 300-30mg Tab) 1 each PO Q4HR PRN PRN Reason: Moderate to Severe Pain Last Admin: 03/15/22 09:06 Dose: 1 each Allopurinol (Allopurinol 100 Mg Tab) 100 mg PO DAILY [facility]AN Last Admin: 03/15/22 09:07 Dose: 100 mg Alprazolam (Alprazolam 0.25 Mg Tab) 0.25 mg PO BID PRN PRN Reason: Anxiety Atorvastatin Calcium (Atorvastatin 80 Mg Tab) 80 mg PO DAILY [facility] Last Admin: 03/15/22 09:07 Dose: 80 mg Calcium Carbonate/Glycine (Calcium Carbonate 500 Mg Chewable) 1,000 mg PO Q4HR PRN PRN Reason: Dyspepsia Collagenase (Collagenase 250 Unit/Gm Ointment 30 Gm Tube) 1 applic TOPICAL DAILY [facility]; Protocol Last Admin: 03/15/22 09:08 Dose: 1 applic Dextrose/Water (Dextrose 50% Syringe 50 Ml) 25 ml IVP PER PROTOCOL PRN; Protocol PRN Reason: Hypoglycemia Dextrose/Water (Dextrose 50% Syringe 50 Ml) 50 ml IVP PER PROTOCOL PRN; Protocol PRN Reason: Hypoglycemia Fluoxetine HCl (Fluoxetine Hcl 20 Mg Cap) 20 mg PO DAILY [facility] Last Admin: 03/15/22 09:07 Dose: 20 mg Heparin Sodium (Porcine) (Heparin Sodium,Porcine/Pf 5,000 Unit/0.5 Ml Syringe) 5,000 unit SQ Q12HR [facility] Cefazolin Sodium 2 gm/ Sodium (Chloride) 50 mls @ 100 mls/hr IVPB Q12HR [facility]; Protocol Last Admin: 03/15/22 10:23 Dose: 100 mls/hr Ferric Sodium Gluconate 125 mg (/ Sodium Chloride) 110 mls @ 100 mls/hr IVPB DAILY [facility] Stop: 03/17/22 09:31 Last Admin: 03/15/22 09:06 Dose: 100 mls/hr Insulin Aspart (Insulin Aspart (Novolog) 100 Unit/Ml Vial) 0 unit SQ ACHS [facility]; Protocol Last Admin: 03/15/22 11:32 Dose: Not Given Isosorbide Mononitrate (Isosorbide Mononitrate Er 30 Mg Tab.Er.24h) 30 mg PO DAILY [facility] Last Admin: 03/15/22 09:07 Dose: 30 mg Lactulose (Lactulose 20 Gm/30 Ml Cup) 20 gm PO DAILY PRN PRN Reason: Constipation Last Admin: 03/13/22 10:47 Dose: 20 gm Metoprolol Succinate (Metoprolol Succinate (Er) 50 Mg Tab.Er.24h) 50 mg PO DAILY [facility] Last Admin: 03/15/22 09:07 Dose: 50 mg Midodrine (Midodrine 5 Mg Tab) 5 mg PO AC-TID [facility] Last Admin: 03/15/22 12:05 Dose: Not Given Nitroglycerin (Nitroglycerin Sl Tabs 0.4 Mg Tab) 0.4 mg SUBLINGUAL Q5M PRN PRN Reason: Chest Pain Pantoprazole Sodium (Pantoprazole 40 Mg/10 Ml Vial) 40 mg IVP BID [facility] Last Admin: 03/15/22 09:07 Dose: 40 mg Sodium Bicarbonate (Sodium Bicarbonate Tab 650 Mg Tab) 650 mg PO DAILY [facility] Tamsulosin HCl (Tamsulosin 0.4 Mg Cap.Er.24h) 0.4 mg PO HS [facility] Last Admin: 03/14/22 21:47 Dose: 0.4 mg Past medical history to include: CAD with stent, diabetes, hypertension, hyperlipidemia, skin cancer on the nose in August 2020, anxiety, left leg common femoral DVT October 2021, hyperuricemia, hepatic steatosis, CHF EF 20-25%. 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 Alcohol rarely. Living with his sister Family history: Diabetes, CAD Physical examination: VITAL SIGNS: 98.6, 69, 15, 11 8 x 72, 98% on 3 L GENERAL: In bed, tired EYES: Pupils equal. Conjunctiva normal. HEENT: External appearance of nose and ears normal, oral cavity grossly normal. NECK: JVD possibly raised; masses not palpable. HEART: First and second heart sounds are normal; some edema. LUNGS: Respiratory rate increased; decreased breath sound . ABDOMEN: Soft, nontender, liver spleen not palpable, no masses palpable. PSYCH: [Alert and oriented x3; mood and affect slightly anxious LYMPHATICS: No lymph node palpable neck and axilla Musculoskeletal: Evidence of OA. Some swelling of the right upper extremity- distal to the elbow, some tenderness and redness DERMATOLOGICAL: Dressing on the left leg on wounds INVESTIGATIONS, reviewed in the clinical context: 03/15/2022: WBC 9.3 hemoglobin 8.8 potassium 4.3 creatinine 3.2 03/14/2022: White count 9.2 hemoglobin 9.1 potassium 3.4 creatinine 3.77 03/13/2022: Hemoglobin 9.3 platelets 179 potassium 3.7 creatinine 3.9 March 12: WBC 8.0 hemoglobin 8.6 platelets 162 potassium 3.5 creatinine 3.6 WBC 9 hemoglobin 9.4 platelets 158 INR 1.5 sodium 135 potassium 4.1. 92 creatinine 2.75 COVID 19/influenza type A/influenza type B: Not detected EKG tracing personally reviewed by me-sinus rhythm, right by her plan block, PVCs Chest x-ray film personally reviewed by me-cardiomegaly. No infiltrates Previous studies: 2-D echocardiogram: EF 20-25%. Left lower extremity venous Doppler: DVT in the common femoral vein. Gallbladder ultrasound: Gallbladder filled with stones. Possible hepatic steatosis. Arterial Doppler results discussed with Dr. Mike: No evidence of vascular compromise Assessment and plan: -Acute kidney injury from ATN.: Slow to respond Follow with nephrology. Lasix held. Bactrim was discontinued. IV fluids. -Acute GI bleed in a patient being on eliquis. On March 13. ReceivedK-centra Eliquis discontinued. Aspirin discontinued. Pending endoscopy today. -Acute on chronic medical debility. Multifactorial. 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 -chronic congestive heart failure from ischemic cardiomyopathy EF 20-25%. Toprol-XL. Aldactone held - chronic multiple wounds painful left lower extremity left calf and left ankle likely from venous ulcers from recent DVT. Follow with wound care team/Dr. saleem, ID -Chronic DVT of the left common femoral vein, in 10/16/2021 eliquis . -Acute cellulitis right upper arm distally. Keflex. Seen by vascular -Choledocholithiasis. Asymptomatic -CAD with a history of stent Aspirin 81 mg daily, Lopressor -Diabetes mellitus type 2, chronically on insulin Follow Accu-Cheks and sliding scale insulin. 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 [employer] nephrology -Anxiety not otherwise specified Xanax 0.25 mg by mouth twice a day -Hyperuricemia allopurinol 100 mg daily -no code Back on medical floor. Pending endoscopy this afternoon. Nothing by mouth. Getting bowel preparation.
[2022-03-15] MEDS ORDERED: IV FLUID CONTINUATION 1,000 ML IV ONE (15:44)
--- NOTE | 2022-03-15 16:01 | P.PCN ---
Date of Procedure: 03/15/22 Procedure(s) Performed: PREOPERATIVE DIAGNOSIS: GI bleed POSTOPERATIVE DIAGNOSIS: Multiple superficial duodenal ulcerations, duodenitis, gastritis with erosions, distal esophagitis, normal colon PROCEDURE: 1. EGD with biopsy 2. Colonoscopy ANESTHESIA: [facility] [place] SURGEON: Khai Da Silva M.D. SPECIMENS: Duodenum, antrum, distal esophagus ENDOSCOPIC PROCEDURE: The patient was on the endoscopy table in the left decubitus position. The Olympus gastroscope was inserted into the oropharynx and passed under direct visualization to the region of the third portion of the duodenum. From that point the scope was slowly withdrawn inspecting all surfaces carefully. There was noted to be multiple superficial ulcerations of the first and second portion of the duodenum. There was no blood or bleeding seen. There was no adherent clot. None of these ulcers appear deep. The pylorus was widely patent. I did take a biopsy of the duodenum. In the stomach there is noted be gastritis with multiple superficial erosions in the prepyloric and antral region. Biopsies were taken. Rectal flexure revealed a normal hiatus. The patient's esophagus was examined. There was mild distal esophagitis that was non-circumferential. Biopsies were taken. The remainder the esophagus appear normal. The patient was kept on the endoscopy table in the left decubitus position. The Olympus colonoscope was inserted into the anus and passed under direct visualization to the base of the cecum. The appendiceal orifice was visualized. From that point the scope was slowly withdrawn inspecting all surfaces carefully. There were no neoplastic inflammatory or polypoid lesions throughout the cecum, ascending, transverse, descending, sigmoid and rectum. There was no visible diverticulosis noted. Digital rectal examination was normal. The patient was taken to the recovery room in stable condition per anesthesia guidelines. RECOMMENDATIONS: Resume diet. Continue antiacids. Hold anticoagulation.
[2022-03-15 16:36] LABS: Glucose,Whole Blood 160 mg/dL (70-110)
[2022-03-15] MEDS: SODIUM BICARBONATE TAB 650 MG TAB PO SCH (16:55)
--- NOTE | 2022-03-15 18:07 | P.PN ---
Subjective Progress Note Date: 03/14/22 Principal diagnosis: Left lower extremity wound Patient is a 66-year-old male with a past medical history of "ischemic cardiomyopathy coronary disease hypertension hyperlipidemia left lower extremity DVT chronic kidney disease in this patient who did have a chronic left lower extremity wound on the lateral as well as medial aspect Patient presented to hospital with generalized weakness. On today's evaluation that is 03/14/2022, the patient continues to be afebrile, the patient is breathing comfortably on room air, patient denies any worsening pain in the left lower extremity wound , the patient denies chest pain shortness with or cough no abdominal pain no diarrhea Objective - Vital Signs Vital signs: Vital Signs Temp 97.7 F 03/14/22 12:00 Pulse 66 03/14/22 12:00 Resp 10 L 03/14/22 12:00 BP 121/67 03/14/22 12:00 Pulse Ox 99 03/14/22 12:00 FiO2 Intake & Output 03/13/22 03/14/22 03/14/22 18:59 06:59 18:59 Intake Total 100 50 350 Output Total 480 715 325 Balance -380 -665 25 Weight 100.5 kg 100.5 kg Intake: Intake, IV Titration 50 100 Amount Sodium Ferric Gluconat- 100 Sucrose 125 mg In Sodium Chloride 0.9% 100 ml @ 100 mls/hr IVPB DAILY [facility] Rx#:[id number] ceFAZolin 2 gm In Sodium 50 Chloride 0.9% 50 ml @ 100 mls/hr IVPB Q12HR [facility] Rx #:[id number] Oral 100 250 Output: Urine 480 715 325 Other: Voiding Method Indwelling Catheter Indwelling Catheter Indwelling Catheter - Exam GENERAL DESCRIPTION: Elderly male lying in bed, no distress. No tachypnea or accessory muscle of respiration use. LUNGS: Unlabored breathing. Decreased breath sound at the base HEART: S1, S2, regular rate and rhythm. No loud murmur ABDOMEN: Soft, no tenderness , guarding or rigidity, no organomegaly EXTREMITIES: Left leg wounds with minimal slough tissue no significant surrounding redness or drainage. - Labs CBC & Chem 7: 03/15/22 06:28 03/15/22 06:28 Labs: Abnormal Lab Results - Last 24 Hours (Table) 03/13/22 03/13/22 03/13/22 Range/Units 07:18 15:40 15:56 RBC 3.02 L (4.30-5.90) m/uL Hgb 9.3 L (13.0-17.5) gm/dL Hct 29.8 L (39.0-53.0) % RDW 19.2 H (11.5-15.5) % Neutrophils # 8.4 H (1.3-7.7) k/uL Lymphocytes # 0.5 L (1.0-4.8) k/uL Sodium (137-145) mmol/L Potassium (3.5-5.1) mmol/L BUN (9-20) mg/dL Creatinine (0.66-1.25) mg/dL POC Glucose (mg/dL) 132 H (70-110) mg/dL Calcium (8.4-10.2) mg/dL Iron 28 L (65-175) ug/dL % Saturation 10.12 L (15.00-50.00) Transferrin 197.0 L (204.0-354.0) mg/dL Ferritin 384.0 H (22.0-322.0) ng/mL 03/13/22 03/13/22 03/14/22 Range/Units 17:00 19:38 06:32 RBC 2.93 L (4.30-5.90) m/uL Hgb 9.1 L (13.0-17.5) gm/dL Hct 28.6 L (39.0-53.0) % RDW 19.3 H (11.5-15.5) % Neutrophils # 8.8 H (1.3-7.7) k/uL Lymphocytes # 0.5 L (1.0-4.8) k/uL Sodium 135 L (137-145) mmol/L Potassium 3.4 L (3.5-5.1) mmol/L BUN 100 H (9-20) mg/dL Creatinine 3.77 H (0.66-1.25) mg/dL POC Glucose (mg/dL) 382 H (70-110) mg/dL Calcium 7.9 L (8.4-10.2) mg/dL Iron (65-175) ug/dL % Saturation (15.00-50.00) Transferrin (204.0-354.0) mg/dL Ferritin (22.0-322.0) ng/mL 03/14/22 03/14/22 Range/Units 06:32 11:40 RBC 2.93 L (4.30-5.90) m/uL Hgb 9.1 L (13.0-17.5) gm/dL Hct 28.8 L (39.0-53.0) % RDW 19.5 H (11.5-15.5) % Neutrophils # (1.3-7.7) k/uL Lymphocytes # (1.0-4.8) k/uL Sodium (137-145) mmol/L Potassium (3.5-5.1) mmol/L BUN (9-20) mg/dL Creatinine (0.66-1.25) mg/dL POC Glucose (mg/dL) 136 H (70-110) mg/dL Calcium (8.4-10.2) mg/dL Iron (65-175) ug/dL % Saturation (15.00-50.00) Transferrin (204.0-354.0) mg/dL Ferritin (22.0-322.0) ng/mL Microbiology - Last 24 Hours (Table) 03/10/22 20:53 Blood Culture - Preliminary Blood No Growth after 72 hours 03/10/22 20:40 Blood Culture - Preliminary Blood No Growth after 72 hours 03/10/22 21:35 Anaerobic Culture - Preliminary Leg - Left 03/10/22 21:35 Gram Stain - Final Leg - Left Wound Culture - Final Beta Hemolytic Strep Group G Assessment and Plan (1) Chronic ulcer of left leg Current Visit: Yes Status: Acute Code(s): L97.929 - NON-PRS CHRONIC ULC UNSP PRT OF L LOW LEG W UNSP SEVERITY SNOMED Code(s): 16999721 Plan: 1patient with a chronic nonhealing wound to the left lower extremity both on the medial and lateral aspect did have minimal slough tissue however there is no significant surrounding swelling or redness patient not running any fever did have a normal white 2patient with the abnormal kidney function high risk of nephrotoxicity from the Bactrim DS which has been discontinued. 3 we will continue local wound care with Santyl followed by moist dressing change daily and monitor clinical course closely. 4-patient local cultures came back positive for group G strep antibiotic were switched over to IV cefazolin when the patient was transferred to the ICU for possible GI bleed Time with Patient: Less than 30
--- NOTE | 2022-03-15 18:09 | P.PN ---
Subjective Progress Note Date: 03/15/22 Principal diagnosis: Left lower extremity wound Patient is a 66-year-old male with a past medical history of "ischemic cardiomyopathy coronary disease hypertension hyperlipidemia left lower extremity DVT chronic kidney disease in this patient who did have a chronic left lower extremity wound on the lateral as well as medial aspect Patient presented to hospital with generalized weakness. Patient is scheduled for EGD and colonoscopy this afternoon On today's evaluation that is 03/15/2022, the patient remains to be afebrile, the patient is breathing comfortably on 3 L nasal cannula, patient denies pain in the left lower extremity wound is currently controlled, the patient denies chest pain shortness with or cough no abdominal pain no diarrhea Objective - Vital Signs Vital signs: Vital Signs Temp 98.6 F 03/15/22 08:00 Pulse 69 03/15/22 08:00 Resp 15 03/15/22 08:00 BP 118/72 03/15/22 08:00 Pulse Ox 98 03/15/22 08:00 FiO2 Intake & Output 03/14/22 03/15/22 03/15/22 18:59 06:59 18:59 Intake Total 1950 150 Output Total 580 902 Balance 1370 -902 150 Weight 100.5 kg 98 kg Intake: Intake, IV Titration 100 150 Amount Sodium Ferric Gluconat- 100 100 Sucrose 125 mg In Sodium Chloride 0.9% 100 ml @ 100 mls/hr IVPB DAILY VAN Rx#:[id number] ceFAZolin 2 gm In Sodium 50 Chloride 0.9% 50 ml @ 100 mls/hr IVPB Q12HR VAN Rx #:[id number] Oral 1850 Output: Urine 580 900 Stool 2 Other: Voiding Method Indwelling Catheter Indwelling Catheter Indwelling Catheter - Exam GENERAL DESCRIPTION: Elderly male lying in bed, no distress. No tachypnea or accessory muscle of respiration use. LUNGS: Unlabored breathing. Decreased breath sound at the base HEART: S1, S2, regular rate and rhythm. No loud murmur ABDOMEN: Soft, no tenderness , guarding or rigidity, no organomegaly EXTREMITIES: Left leg wounds with minimal slough tissue no significant surrounding redness or drainage. - Labs CBC & Chem 7: 03/15/22 06:28 03/15/22 06:28 Labs: Abnormal Lab Results - Last 24 Hours (Table) 03/14/22 03/14/22 03/15/22 Range/Units 16:56 21:09 06:08 RBC (4.40-5.60) X 10*6/uL Hgb (13.0-17.0) g/dL Hct (39.6-50.0) % MCHC (32.0-37.0) g/dL RDW (11.5-14.5) % Carbon Dioxide (20.0-27.5) mmol/L BUN (9.0-27.0) mg/dL Creatinine (0.6-1.5) mg/dL Est GFR (CKD-EPI)AfAm (60.0-200.0) Est GFR (CKD-EPI)NonAf (60.0-200.0) BUN/Creatinine Ratio (12.00-20.00) Ratio Glucose (70-110) mg/dL POC Glucose (mg/dL) 150 H 199 H 148 H (70-110) mg/dL Calcium (8.7-10.3) mg/dL 03/15/22 03/15/22 03/15/22 Range/Units 06:28 06:28 11:24 RBC 2.99 L (4.40-5.60) X 10*6/uL Hgb 8.8 L (13.0-17.0) g/dL Hct 28.9 L (39.6-50.0) % MCHC 30.4 L (32.0-37.0) g/dL RDW 20.2 H (11.5-14.5) % Carbon Dioxide 19.7 L (20.0-27.5) mmol/L BUN 83.9 H (9.0-27.0) mg/dL Creatinine 3.2 H (0.6-1.5) mg/dL Est GFR (CKD-EPI)AfAm 22.1 L (60.0-200.0) Est GFR (CKD-EPI)NonAf 19.1 L (60.0-200.0) BUN/Creatinine Ratio 26.47 H (12.00-20.00) Ratio Glucose 137 H (70-110) mg/dL POC Glucose (mg/dL) 143 H (70-110) mg/dL Calcium 8.3 L (8.7-10.3) mg/dL Microbiology - Last 24 Hours (Table) 03/10/22 21:35 Anaerobic Culture - Final Leg - Left 03/10/22 20:40 Blood Culture - Preliminary Blood No Growth after 96 hours 03/10/22 20:53 Blood Culture - Preliminary Blood No Growth after 96 hours Assessment and Plan (1) Chronic ulcer of left leg Current Visit: Yes Status: Acute Code(s): L97.929 - NON-PRS CHRONIC ULC UNSP PRT OF L LOW LEG W UNSP SEVERITY SNOMED Code(s): 25595035 Plan: 1patient with a chronic nonhealing wound to the left lower extremity both on the medial and lateral aspect did have minimal slough tissue however there is no significant surrounding swelling or redness patient not running any fever did have a normal white 2patient with the abnormal kidney function high risk of nephrotoxicity from the Bactrim DS which has been discontinued. 3 we will continue local wound care with Santyl followed by moist dressing change daily . 4-patient local cultures came back positive for group G strep, patient is currently be treated with IV cefazolin and will monitor clinical course closely Time with Patient: Less than 30
[2022-03-15] MEDS: HEPARIN SODIUM,PORCINE/PF 5,000 UNIT/0.5 ML SYRINGE SQ SCH (20:42)
[2022-03-15 20:53] LABS: Glucose,Whole Blood 200 mg/dL (70-110)
[2022-03-15] MEDS: TAMSULOSIN 0.4 MG CAP.ER.24H PO SCH (21:21)
[2022-03-16] MEDS: Acetaminophen-Codeine 300-30mg TAB PO PRN ×3 (00:37→16:41)
[2022-03-16 06:04] LABS: Glucose,Whole Blood 176 mg/dL (70-110)
[2022-03-16] MEDS: INSULIN ASPART (NovoLOG) 100 UNIT/ML VIAL SQ SCH ×4 (06:14→22:48)
[2022-03-16] MEDS: MIDODRINE 5 MG TAB PO SCH ×3 (06:14→17:46)
[2022-03-16] MEDS: HEPARIN SODIUM,PORCINE/PF 5,000 UNIT/0.5 ML SYRINGE SQ SCH (07:23)
[2022-03-16 08:21] LABS: Anisocytosis Slight; Basophils # (A) 0.1 k/uL (0-0.2); Basophils % (A) 1 %; Eosinophils # (A) 0.1 k/uL (0-0.7); Eosinophils % (A) 2 %; HCT 28.2 % (39.0-53.0); HGB 8.7 gm/dL (13.0-17.5); Hypochromasia Marked; Lymphocytes # (A) 0.5 k/uL (1.0-4.8); Lymphocytes % (A) 7 %; MCH 30.5 pg (25.0-35.0); MCV 98.3 fL (80.0-100.0); Macrocytosis Moderate; Mean Platelet Volume 8.8; Monocytes # (A) 0.5 k/uL (0-1.0); Monocytes % (A) 8 %; Neutrophils % (A) 81 %; Platelet Count 183 k/uL (150-450); Poikilocytosis Slight; RBC 2.87 m/uL (4.30-5.90); RDW 19.8 % (11.5-15.5); WBC 6.2 k/uL (3.8-10.6)
[2022-03-16] MEDS: allopurinoL 100 MG TAB PO SCH (08:43)
[2022-03-16] MEDS: PANTOPRAZOLE 40 MG/10 ML VIAL IVP SCH (08:43)
[2022-03-16] MEDS: ISOSORBIDE MONONITRATE ER 30 MG TAB.ER.24H PO SCH (08:44)
[2022-03-16] MEDS: ATORVASTATIN 80 MG TAB PO SCH (08:44)
[2022-03-16] MEDS: SODIUM BICARBONATE TAB 650 MG TAB PO SCH (08:44)
[2022-03-16] MEDS: METOPROLOL SUCCINATE (ER) 50 MG TAB.ER.24H PO SCH (08:44)
[2022-03-16] MEDS: FLUoxetine HCL 20 MG CAP PO SCH (08:44)
[2022-03-16] MEDS: COLLAGENASE 250 UNIT/GM OINTMENT 30 GM TUBE TOPICAL SCH (08:44)
[2022-03-16 08:51] LABS: African American GFR (CKD) 25.7 (60.0-200.0); Anion Gap 13.3 mmol/L (10.00-18.00); BUN/Creat Ratio 25.93 Ratio (12.00-20.00); Blood Urea Nitrogen 72.6 mg/dL (9.0-27.0); Calcium 8.7 mg/dL (8.7-10.3); Carbon Dioxide 23.7 mmol/L (20.0-27.5); Magnesium 2.1 mg/dL (1.5-2.4); Non-African American GFR(CKD) 22.2 (60.0-200.0)
[2022-03-16] MEDS: SODIUM FERRIC GLUCONAT-SUCROSE 125 MG in SODIUM CHLORIDE 0.9% 100 ML IVPB SCH (09:17)
--- NOTE | 2022-03-16 10:14 | P.PN ---
Subjective Patient is seen in follow-up for acute kidney injury on chronic kidney disease. Renal function better. Creatinine 2.8 today. Nonoliguric. No active bleeding. Hemoglobin stable at 8.7. Lasix and Bactrim discontinued 03/11/2022. Resting in bed. No active complaints. Vital signs are stable. General: Awake. No acute distress. HEENT: Head exam is unremarkable. On nasal cannula. LUNGS: Breath sounds decreased. HEART: Rate and Rhythm are regular. ABDOMEN: Soft, no distention. EXTREMITITES: Trace edema. Left lower extremity wrapped. No drainage. Objective - Vital Signs Vital signs: Vital Signs Temp 97.3 F L 03/16/22 00:42 Pulse 72 03/16/22 00:42 Resp 18 03/16/22 00:42 BP 95/56 03/16/22 06:12 Pulse Ox 94 L 03/16/22 08:38 FiO2 Intake & Output 03/15/22 03/16/22 03/16/22 18:59 06:59 18:59 Intake Total 550 Output Total 1100 Balance 550 -1100 Weight 94.2 kg Intake: IV 400 Intake, IV Titration 150 Amount Sodium Ferric Gluconat- 100 Sucrose 125 mg In Sodium Chloride 0.9% 100 ml @ 100 mls/hr IVPB DAILY VAN Rx#:[id number] ceFAZolin 2 gm In Sodium 50 Chloride 0.9% 50 ml @ 100 mls/hr IVPB Q12HR VAN Rx #:[id number] Output: Urine 1100 Other: Voiding Method Indwelling Catheter Indwelling Catheter - Labs CBC & Chem 7: 03/16/22 05:48 03/16/22 05:48 Labs: Abnormal Lab Results - Last 24 Hours (Table) 03/15/22 03/15/22 03/15/22 Range/Units 06:28 11:24 16:34 RBC (4.30-5.90) m/uL Hgb (13.0-17.5) gm/dL Hct (39.0-53.0) % RDW (11.5-15.5) % Lymphocytes # (1.0-4.8) k/uL Carbon Dioxide 19.7 L (20.0-27.5) mmol/L BUN 83.9 H (9.0-27.0) mg/dL Creatinine 3.2 H (0.6-1.5) mg/dL Est GFR (CKD-EPI)AfAm 22.1 L (60.0-200.0) Est GFR (CKD-EPI)NonAf 19.1 L (60.0-200.0) BUN/Creatinine Ratio 26.47 H (12.00-20.00) Ratio Glucose 137 H (70-110) mg/dL POC Glucose (mg/dL) 143 H 160 H (70-110) mg/dL Calcium 8.3 L (8.7-10.3) mg/dL 03/15/22 03/16/22 03/16/22 Range/Units 20:51 05:48 05:48 RBC 2.87 L (4.30-5.90) m/uL Hgb 8.7 L (13.0-17.5) gm/dL Hct 28.2 L (39.0-53.0) % RDW 19.8 H (11.5-15.5) % Lymphocytes # 0.5 L (1.0-4.8) k/uL Carbon Dioxide (20.0-27.5) mmol/L BUN 72.6 H (9.0-27.0) mg/dL Creatinine 2.8 H (0.6-1.5) mg/dL Est GFR (CKD-EPI)AfAm 25.7 L (60.0-200.0) Est GFR (CKD-EPI)NonAf 22.2 L (60.0-200.0) BUN/Creatinine Ratio 25.93 H (12.00-20.00) Ratio Glucose 142 H (70-110) mg/dL POC Glucose (mg/dL) 200 H (70-110) mg/dL Calcium (8.7-10.3) mg/dL 03/16/22 Range/Units 05:59 RBC (4.30-5.90) m/uL Hgb (13.0-17.5) gm/dL Hct (39.0-53.0) % RDW (11.5-15.5) % Lymphocytes # (1.0-4.8) k/uL Carbon Dioxide (20.0-27.5) mmol/L BUN (9.0-27.0) mg/dL Creatinine (0.6-1.5) mg/dL Est GFR (CKD-EPI)AfAm (60.0-200.0) Est GFR (CKD-EPI)NonAf (60.0-200.0) BUN/Creatinine Ratio (12.00-20.00) Ratio Glucose (70-110) mg/dL POC Glucose (mg/dL) 176 H (70-110) mg/dL Calcium (8.7-10.3) mg/dL Microbiology - Last 24 Hours (Table) 03/10/22 20:40 Blood Culture - Preliminary Blood No Growth after 120 hours 03/10/22 20:53 Blood Culture - Preliminary Blood No Growth after 120 hours 03/10/22 21:35 Anaerobic Culture - Final Leg - Left Assessment and Plan Plan: Assessment: 1. Acute kidney injury secondary to ATN and further worsened with the use of Bactrim. Creatinine peaked at 3.9 this admission -2.8 today. UA fairly benign. No hydronephrosis noted on kidney ultrasound. 2. Chronic kidney disease stage IV with baseline creatinine in the range of 2.5-3. 3. Left lower extremity cellulitis status post Bactrim. ID following. 4. Anemia of chronic kidney disease. Iron deficiency noted. Stool for occult blood positive. Hemoglobin stable. Eliquis stopped. EGD showed superficial duodenal ulcerations, duodenitis, gastritis with erosions and distal esophagitis. No significant abnormalities noted on colonoscopy. 5. Volume overload. Status post IV Lasix this admission. Better. 6. Hypokalemia from diuresis. Magnesium normal. Replaced. Better. Plan: Maintain IV iron. Avoid nephrotoxins. Continue to monitor renal function and urine output. Maintain midodrine. Cortisol level normal. Okay to DC Rivera catheter from nephrology standpoint and monitor serial bladder scans to make sure no retention.
[2022-03-16 11:04] LABS: Glucose,Whole Blood 178 mg/dL (70-110)
--- NOTE | 2022-03-16 12:44 | P.PN ---
Subjective Progress Note Date: 03/16/22 CHIEF COMPLAINT: GI bleed HISTORY OF PRESENT ILLNESS: Surgical service following regards to GI bleed. Balwinder patino is status post EGD and colonoscopy results showed multiple superficial duodenal ulcerations, duodenitis, gastritis with erosions, distal esophagitis and normal colon. Patient's had no further black or bloody stools. He denies abdominal pain. Currently tolerating a regular diet. Hemoglobin is stable at 8.7. Afebrile. Patient seen and examined with Dr. Monte PHYSICAL EXAM: VITAL SIGNS: Reviewed. GENERAL: Well-developed in no acute distress ABDOMEN: Soft. Nondistended. Nontender. NEUROLOGIC: Alert and oriented. Cranial nerves II through XII grossly intact. ASSESSMENT: 1. Acute GI bleed with black stool 2. Anemia 3. History of DVT leg on Eliquis 4. Acute on chronic kidney disease PLAN: -Continue regular diet -Continue PPI -Continue to hold anticoagulation Physician [employer] [facility] Bailiff note has been reviewed by physician. Signing provider agrees with the documented findings, assessment, and plan of care. Objective - Vital Signs Vital signs: Vital Signs Temp 97.8 F 03/16/22 08:00 Pulse 76 03/16/22 08:00 Resp 16 03/16/22 08:00 BP 107/66 03/16/22 08:00 Pulse Ox 94 L 03/16/22 08:38 FiO2 Intake & Output 03/15/22 03/16/22 03/16/22 18:59 06:59 18:59 Intake Total 550 Output Total 1100 Balance 550 -1100 Weight 94.2 kg Intake: IV 400 Intake, IV Titration 150 Amount Sodium Ferric Gluconat- 100 Sucrose 125 mg In Sodium Chloride 0.9% 100 ml @ 100 mls/hr IVPB DAILY AVN Rx#:[id number] ceFAZolin 2 gm In Sodium 50 Chloride 0.9% 50 ml @ 100 mls/hr IVPB Q12HR VAN Rx #:[id number] Output: Urine 1100 Other: Voiding Method Indwelling Catheter Indwelling Catheter Indwelling Catheter - Labs CBC & Chem 7: 03/16/22 05:48 03/16/22 05:48 Labs: Abnormal Lab Results - Last 24 Hours (Table) 03/15/22 03/15/22 03/16/22 Range/Units 16:34 20:51 05:48 RBC (4.30-5.90) m/uL Hgb (13.0-17.5) gm/dL Hct (39.0-53.0) % RDW (11.5-15.5) % Lymphocytes # (1.0-4.8) k/uL BUN 72.6 H (9.0-27.0) mg/dL Creatinine 2.8 H (0.6-1.5) mg/dL Est GFR (CKD-EPI)AfAm 25.7 L (60.0-200.0) Est GFR (CKD-EPI)NonAf 22.2 L (60.0-200.0) BUN/Creatinine Ratio 25.93 H (12.00-20.00) Ratio Glucose 142 H (70-110) mg/dL POC Glucose (mg/dL) 160 H 200 H (70-110) mg/dL 03/16/22 03/16/22 03/16/22 Range/Units 05:48 05:59 11:03 RBC 2.87 L (4.30-5.90) m/uL Hgb 8.7 L (13.0-17.5) gm/dL Hct 28.2 L (39.0-53.0) % RDW 19.8 H (11.5-15.5) % Lymphocytes # 0.5 L (1.0-4.8) k/uL BUN (9.0-27.0) mg/dL Creatinine (0.6-1.5) mg/dL Est GFR (CKD-EPI)AfAm (60.0-200.0) Est GFR (CKD-EPI)NonAf (60.0-200.0) BUN/Creatinine Ratio (12.00-20.00) Ratio Glucose (70-110) mg/dL POC Glucose (mg/dL) 176 H 178 H (70-110) mg/dL Microbiology - Last 24 Hours (Table) 03/10/22 20:40 Blood Culture - Preliminary Blood No Growth after 120 hours 03/10/22 20:53 Blood Culture - Preliminary Blood No Growth after 120 hours 03/10/22 21:35 Anaerobic Culture - Final Leg - Left
--- NOTE | 2022-03-16 12:49 | P.DS ---
Providers Date of admission: 03/12/22 09:43 Expected date of discharge: 03/16/22 Attending physician: Derick Johnson Consults: 03/11/22 00:41 Consult Physician Urgent Consulting Provider: Alysa Landry Consult Reason/Comments: Chronic renal failure Do you want consulting provider notified?: Yes, Notify in am 03/11/22 16:41 Consult Physician Routine Consulting Provider: Cassidy Naik Consult Reason/Comments: left lower extremity cellulitis/wounds Do you want consulting provider notified?: Yes 03/12/22 16:58 Consult Physician Routine Consulting Provider: Moody Gay Consult Reason/Comments: Patient retaining urine with lucero catheter in place Do you want consulting provider notified?: Yes 03/13/22 14:57 Consult Physician Urgent Consulting Provider: Khai Da Silva Consult Reason/Comments: GI bleed? Do you want consulting provider notified?: Yes 03/13/22 15:36 Consult Physician Urgent Consulting Provider: Elly Aguilar Consult Reason/Comments: ICU management Do you want consulting provider notified?: Already Contacted Primary care physician: Mike Escboar [facility] Course: Chief Complaint: Short of breath This is a pleasant 66-year-old patient, follows with Dr. Mike Escobar. Chronic stable medical conditions include CAD with stent, diabetes, hypertension, hyperlipidemia anxiety. CAD, hyperuricemia, left leg DVT in October 2021, CHF EF 20 -25% hospital from November 14 through November 21/2022 with leg wounds. seen by ID and vascular. Wound culture - stenotrophomonas maltophilia. Patient does follow the wound care center. Patient now presents with multiple symptoms. Hurting all over. Short of breath. Decreased appetite. Hasn't really eaten for 5 days. Feeling weak. Normally has bowel movements about twice a week. Finding it difficult to walk. He had called 911 as he could not get up to tolerate. Denies any fever and chills. He lists his sister who cannot take care of him anymore. 03/12/2022: Sitting up in a recliner. Eating. Appears comfortable. Case management is looking into placement. Oral intake about 25%. Also has a a acute kidney injury secondary to ATN from Bactrim. IV fluids. Lasix being held. 03/13/2022: Patient was seen this morning. Decreased appetite. Seen by vascular. Right arm swelling appears to be from cellulitis. Has been on Keflex. Right arm elevated. Negative for DVT. 03/14/2022: Patient yesterday had a large dark stool. 2 episodes. Moved to the ICU. ReceivedK-centra. No drop in hemoglobin. Today started on clear liquids. No further bleed. Doppler ultrasound lower extremity ordered. We'll have vascular follow with the results. 03/15/2022: Patient seen this morning. Resting in bed. Give endoscopy today. Nothing by mouth. Taking his bowel preparation. Had some dark stool overnight. 03/16/2022: Patient Doppler ultrasound negative for lower extremity DVT. Has no need for anticoagulation. No need for IVC filter. EKG showed vertical superficial duodenal ulcers, duodenitis, gastritis and distal esophagitis. Continue PPI. Colonoscopy was unremarkable. Discussed with patient. Will discharge to [facility] in the [place]. Discussed with ID. Keflex 500 mg every 12 for 10 days Discussion and discharge planning more than 35 minutes Past medical history to include: CAD with stent, diabetes, hypertension, hyperlipidemia, skin cancer on the nose in August 2020, anxiety, left leg common femoral DVT October 2021, hyperuricemia, hepatic steatosis, CHF EF 20-25%. 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 Alcohol rarely. Living with his sister Family history: Diabetes, CAD Physical examination: VITAL SIGNS: 97.8, 76, 16, 107 versus 6, 94% on 2 L GENERAL: In bed, awake EYES: Pupils equal. Conjunctiva normal. HEENT: External appearance of nose and ears normal, oral cavity grossly normal. NECK: JVD possibly raised; masses not palpable. HEART: First and second heart sounds are normal; some edema. LUNGS: Respiratory rate increased; decreased breath sound . ABDOMEN: Soft, nontender, liver spleen not palpable, no masses palpable. PSYCH: [Alert and oriented x3; mood and affect slightly anxious LYMPHATICS: No lymph node palpable neck and axilla Musculoskeletal: Evidence of OA. Some swelling of the right upper extremity- distal to the elbow, some tenderness and redness DERMATOLOGICAL: Dressing on the left leg on wounds INVESTIGATIONS, reviewed in the clinical context: EGD: Duodenitis, superficial.no ulcers, gastritis, esophageal as Colonoscopy: Unremarkable 03/16/2022: WBC 6.2 hemoglobin 8.7 platelets 23 potassium 4 creatinine 2.8 03/13/2022: Hemoglobin 9.3 platelets 179 potassium 3.7 creatinine 3.9 March 12: WBC 8.0 hemoglobin 8.6 platelets 162 potassium 3.5 creatinine 3.6 WBC 9 hemoglobin 9.4 platelets 158 INR 1.5 sodium 135 potassium 4.1. 92 creatinine 2.75 COVID 19/influenza type A/influenza type B: Not detected EKG tracing personally reviewed by me-sinus rhythm, right by her plan block, PVCs Chest x-ray film personally reviewed by me-cardiomegaly. No infiltrates Previous studies: 2-D echocardiogram: EF 20-25%. Left lower extremity venous Doppler: DVT in the common femoral vein. Gallbladder ultrasound: Gallbladder filled with stones. Possible hepatic steatosis. Arterial Doppler results discussed with Dr. Mike: No evidence of vascular compromise Assessment and plan: -Acute kidney injury from ATN.: Some improvement Follow with nephrology. Lasix held. Bactrim was discontinued. IV fluids. -Acute GI bleed in a patient being on eliquis. On March 13. ReceivedK-centra . From underlying esophagitis, gastritis, duodenitis Eliquis discontinued. Aspirin discontinued. -Esophagitis, gastritis, duodenitis, secondary to aspirin eliquis. Bowel discontinued PPI -Acute on chronic medical debility. Multifactorial. 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 -chronic congestive heart failure from ischemic cardiomyopathy EF 20-25%. Toprol-XL. Aldactone held - chronic multiple wounds painful left lower extremity left calf and left ankle likely from venous ulcers from recent DVT. Follow with wound care team/Dr. saleem, ID - DVT of the left common femoral vein, in 10/16/2021. Doppler ultrasound of this admission negative for DVT. eliquis stopped . -Acute cellulitis right upper arm distally. Keflex. Seen by vascular -Choledocholithiasis. Asymptomatic -CAD with a history of stent Aspirin may be resumed down the road currently held because of GI bleed, Lopressor -Diabetes mellitus type 2, chronically on insulin Follow Accu-Cheks and sliding scale insulin. 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 Sprayer Insecticide nephrology -Anxiety not otherwise specified Xanax 0.25 mg by mouth twice a day -Hyperuricemia allopurinol 100 mg daily -no code Disposition: ECF/[facility] in the [place] Plan - Discharge Summary Discharge Rx Participant: No New Discharge Prescriptions: New Omeprazole [PriLOSEC] 40 mg PO AC-BRKFST #90 cap Midodrine [ProAmatine] 5 mg PO AC-TID tab Acetaminophen-Codeine 300-30mg [Tylenol w/codeine #3] 1 each PO Q4HR PRN #18 tab PRN Reason: Moderate To Severe Pain Cephalexin [Keflex] 500 mg PO Q12HR 10 Days #20 cap Continue Tamsulosin [Flomax] 0.4 mg PO HS #30 cap FLUoxetine HCL [PROzac] 20 mg PO DAILY cap allopurinoL [Zyloprim] 100 mg PO DAILY tab Metoprolol Succinate (ER) [Toprol XL] 50 mg PO DAILY Collagenase [Santyl Ointment] 1 applic TOPICAL DAILY Acetaminophen Tab [Tylenol] 650 mg PO Q6H PRN PRN Reason: Pain Or Fever > 100.5 Nitroglycerin Sl Tabs [Nitrostat] 0.4 mg SL Q5M PRN #30 tab PRN Reason: Chest Pain Isosorbide Mononitrate ER [Imdur] 30 mg PO DAILY #30 tab Atorvastatin [Lipitor] 80 mg PO DAILY #30 tab Ferrous Sulfate [Iron (65 MG Elemental)] 325 mg PO DAILY ALPRAZolam [Xanax] 0.25 mg PO BID PRN #6 tab PRN Reason: Anxiety Changed Sodium Bicarbonate Tab 650 mg PO DAILY #60 tab Furosemide [Lasix] 60 mg PO DAILY #60 tab Discontinued Apixaban [Eliquis] 5 mg PO BID #60 tab Aspirin 81 mg PO DAILY #90 tab Sulfamethox-Tmp 800-160Mg [Bactrim DS 800-160 mg] 1 tab PO Q12HR Discharge Medication List Acetaminophen Tab [Tylenol] 650 mg PO Q6H PRN 08/22/21 [History] Nitroglycerin Sl Tabs [Nitrostat] 0.4 mg SL Q5M PRN #30 tab 12/06/21 [Rx] Tamsulosin [Flomax] 0.4 mg PO HS #30 cap 12/06/21 [Rx] Atorvastatin [Lipitor] 80 mg PO DAILY #30 tab 12/15/21 [Rx] FLUoxetine HCL [PROzac] 20 mg PO DAILY cap 12/15/21 [Rx] Isosorbide Mononitrate ER [Imdur] 30 mg PO DAILY #30 tab 12/15/21 [Rx] allopurinoL [Zyloprim] 100 mg PO DAILY tab 12/15/21 [Rx] Metoprolol Succinate (ER) [Toprol XL] 50 mg PO DAILY 01/16/22 [History] Collagenase [Santyl Ointment] 1 applic TOPICAL DAILY 02/07/22 [History] Ferrous Sulfate [Iron (65 MG Elemental)] 325 mg PO DAILY 02/07/22 [History] Omeprazole [PriLOSEC] 40 mg PO AC-BRKFST #90 cap 03/15/22 [Rx] ALPRAZolam [Xanax] 0.25 mg PO BID PRN #6 tab 03/16/22 [Rx] Acetaminophen-Codeine 300-30mg [Tylenol w/codeine #3] 1 each PO Q4HR PRN #18 tab 03/16/22 [Rx] Cephalexin [Keflex] 500 mg PO Q12HR 10 Days #20 cap 03/16/22 [Rx] Furosemide [Lasix] 60 mg PO DAILY #60 tab 03/16/22 [Rx] Midodrine [ProAmatine] 5 mg PO AC-TID tab 03/16/22 [Rx] Sodium Bicarbonate Tab 650 mg PO DAILY #60 tab 03/16/22 [Rx] Follow up Appointment(s)/Referral(s): Keith Mike DO [STAFF PHYSICIAN] - 4 Weeks Mike Escobar MD [Primary Care Provider] - 1-2 days [facility] [NON-STAFF] - 03/21/22 2:30 pm Roc Gonsalves DO [STAFF PHYSICIAN] - 10 Days Patient Instructions/Handouts: Fall Prevention for Older Adults (DC), Chronic Wounds (DC) Activity/Diet/Wound Care/Special Instructions: wound care fluid restrict 1800 cc/day
--- NOTE | 2022-03-16 13:06 | P.PN ---
Subjective Progress Note Date: 03/16/22 This is a 66-year-old white male with history of multiple medical problems, patient was admitted on 03/10/2022, he was mostly admitted with mostly symptoms of weakness. Patient was diagnosed with acute on chronic medical debility, chronic congestive heart failure/systolic in nature with ejection fraction of 20-25%. He had cellulitis of the left lower extremity and history of DVT in the left lower extremity back in October of 2021. This was unprovoked deep vein thrombosis. Patient was also noted to have ischemic cardiomyopathy, choledocholithiasis, coronary artery disease with history of stent placement, type 2 diabetes, dyslipidemia, hypertension, and since then the patient has been seen by multiple consultants. Patient was seen by nephrology for his renal failure, infectious disease for his cellulitis, vascular surgery for his right upper extremity swelling and for his cellulitis. Patient developed a sudden episode of black stools yesterday, apparently the amount was quite extensive, she did not develop any hemodynamic instability, however his admitting physician Dr. Johnson was concerned, he called me about this patient, and I recommended transfer to the ICU. I saw him today, patient is doing well, his black stools are now more brown than black, patient did not require any blood transfusion overnight, however he remains of eliquis, and I'm recommending a venous Doppler on the left lower extremity, if the patient truly has ongoing deep vein thrombosis of the left lower extremity, he may require an IVC filter placement. And considering the patient did not require blood transfusion overnight, and he is not actively bleeding clinically, I'm recommending that he goes back to the regular medical floor. Patient should be on telemetry considering his underlying cardiomyopathy and LV dysfunction. His hemoglobin is 9.1 today, was 9.1 yesterday. His electrolytes are normal however his BUN is 100 creatinine is 3.77 and this is being addressed by nephrology on the case. His labs today were all reviewed. Venous Doppler was repeated today, and at this point he has negative deep vein thromboses in the right leg and negative deep vein thromboses in the left leg. The patient is seen today 03/15/2022 in follow-up on the regular medical floor. He is currently resting comfortably in bed. Awake and alert in no acute distress. No active bleeding noted. White count 9.3. Hemoglobin 8.8. Sodium 135. Potassium 4.3. Doppler of the lower extremities were negative for DVT. Left leg wound culture is positive for beta-hemolytic strep group G. He is continued on cefazolin. The patient is seen today 03/16/2022 in follow-up on the regular medical floor. He sitting up in bed. Awake and alert in no acute distress. No active bleeding. He was found to have multiple superficial duodenal ulcerations, duodenitis, gastritis with erosions, distal esophagitis on EGD. Normal colon per colonoscopy. He is maintaining O2 saturations in the 90s on 2 L/m per nasal cannula. 90% on room air. Afebrile. Hemodynamically stable. White count 6.2. Hemoglobin 8.7. Sodium 136. Potassium 4.0. BUN 72 creatinine 2.8. Glucose 142. He has been receiving iron supplements. Objective - Vital Signs Vital signs: Vital Signs Temp 97.8 F 03/16/22 08:00 Pulse 76 03/16/22 08:00 Resp 16 03/16/22 08:00 BP 107/66 03/16/22 08:00 Pulse Ox 94 L 03/16/22 08:38 FiO2 Intake & Output 03/15/22 03/16/22 03/16/22 18:59 06:59 18:59 Intake Total 550 Output Total 1100 Balance 550 -1100 Weight 94.2 kg Intake: IV 400 Intake, IV Titration 150 Amount Sodium Ferric Gluconat- 100 Sucrose 125 mg In Sodium Chloride 0.9% 100 ml @ 100 mls/hr IVPB DAILY VAN Rx#:[id number] ceFAZolin 2 gm In Sodium 50 Chloride 0.9% 50 ml @ 100 mls/hr IVPB Q12HR VAN Rx #:[id number] Output: Urine 1100 Other: Voiding Method Indwelling Catheter Indwelling Catheter Indwelling Catheter - Exam GENERAL: Revealed a 66-year-old male patient, on 2 L nasal cannula, in no acute distress. EYES: No active emesis, PERRLA, EOMI.. HEENT: Dry mucous membranes, no evidence of mucositis or thrush. NECK: Supple no JVD no stridor. No masses HEART: Distant S1 and S2, no S3 gallop. LUNGS: Symmetrical chest expansion diminished breath sounds at the bases no crackles or rhonchi or wheezes ABDOMEN: Soft nontender no megaly no rebound no guarding. PSYCH: Normal mood affect and normal mental status examination LYMPHATICS: No adenopathy. Musculoskeletal: No deformities and no limitation in range of motion DERMATOLOGICAL: Left lower extremity is wrapped with sterile dressing - Labs CBC & Chem 7: 03/16/22 05:48 03/16/22 05:48 Labs: Abnormal Lab Results - Last 24 Hours (Table) 03/15/22 03/15/22 03/16/22 Range/Units 16:34 20:51 05:48 RBC (4.30-5.90) m/uL Hgb (13.0-17.5) gm/dL Hct (39.0-53.0) % RDW (11.5-15.5) % Lymphocytes # (1.0-4.8) k/uL BUN 72.6 H (9.0-27.0) mg/dL Creatinine 2.8 H (0.6-1.5) mg/dL Est GFR (CKD-EPI)AfAm 25.7 L (60.0-200.0) Est GFR (CKD-EPI)NonAf 22.2 L (60.0-200.0) BUN/Creatinine Ratio 25.93 H (12.00-20.00) Ratio Glucose 142 H (70-110) mg/dL POC Glucose (mg/dL) 160 H 200 H (70-110) mg/dL 03/16/22 03/16/22 03/16/22 Range/Units 05:48 05:59 11:03 RBC 2.87 L (4.30-5.90) m/uL Hgb 8.7 L (13.0-17.5) gm/dL Hct 28.2 L (39.0-53.0) % RDW 19.8 H (11.5-15.5) % Lymphocytes # 0.5 L (1.0-4.8) k/uL BUN (9.0-27.0) mg/dL Creatinine (0.6-1.5) mg/dL Est GFR (CKD-EPI)AfAm (60.0-200.0) Est GFR (CKD-EPI)NonAf (60.0-200.0) BUN/Creatinine Ratio (12.00-20.00) Ratio Glucose (70-110) mg/dL POC Glucose (mg/dL) 176 H 178 H (70-110) mg/dL Microbiology - Last 24 Hours (Table) 03/10/22 20:40 Blood Culture - Preliminary Blood No Growth after 120 hours 03/10/22 20:53 Blood Culture - Preliminary Blood No Growth after 120 hours 03/10/22 21:35 Anaerobic Culture - Final Leg - Left Assessment and Plan Assessment: Acute GI bleeding, most likely upper GI in nature since the patient presented with black stools, however the patient is not actively bleeding at present, and the patient should be maintained on PPIs. EGD from 03/15/2022 did reveal multiple superficial bilateral ulcerations, duodenitis, gastritis with erosions, distal esophagitis. Colonoscopy revealed normal colon. History of DVT involving left lower extremity, presently no evidence of DVT on venous Doppler. Hence discontinued eliquis. No need for IVC filter at this point. Choledocholithiasis, asymptomatic. Cellulitis of left lower extremity being addressed by infectious disease on the case. Currently on cefazolin Chronic congestive heart failure, systolic in nature, ejection fraction of 20- 25%. Diabetic peripheral neuropathy. Type 2 diabetes. Benign essential hypertension. Dyslipidemia. Coronary artery disease and previous stent placement. Plan: The patient was seen and evaluated Medication and labs reviewed EGD and colonoscopy results reviewed Cleared for discharge back to [facility] We will see the patient as needed I have personally seen and examined the patient, performed the documentation and the assessment and plan as written. Number of minutes spent on the visit: 10.
[2022-03-16 13:43] VITALS: BMI 29.7
--- NOTE | 2022-03-16 14:52 | P.PN ---
Progress Note - Text Progress Note Date: 03/16/22 This is a pleasant 66-year-old patient, follows with Dr. Mike Escobar. Chronic stable medical conditions include CAD with stent, diabetes, hypertension, hyperlipidemia anxiety. CAD, hyperuricemia, left leg DVT in October 2021, CHF EF 20 -25% hospital from November 14 through November 21/2022 with leg wounds. seen by ID and vascular. Wound culture - stenotrophomonas maltophilia. Patient does follow the wound care center. Patient now presents with multiple symptoms. Hurting all over. Short of lynette ath. Decreased appetite. Hasn't really eaten for 5 days. Feeling weak. Normally has bowel movements about twice a week. Finding it difficult to walk. He had called 911 as he could not get up to tolerate. Denies any fever and chills. He lists his sister who cannot take care of him anymore. 03/12/2022: Sitting up in a recliner. Eating. Appears comfortable. Case management is looking into placement. Oral intake about 25%. Also has a a acute kidney injury secondary to ATN from Bactrim. IV fluids. Lasix being held. 03/13/2022: Patient was seen this morning. Decreased appetite. Seen by vascular. Right arm swelling appears to be from cellulitis. Has been on Keflex. Right arm elevated. Negative for DVT. 03/14/2022: Patient yesterday had a large dark stool. 2 episodes. Moved to the ICU. ReceivedK-centra. No drop in hemoglobin. Today started on clear liquids. No further bleed. Doppler ultrasound lower extremity ordered. We'll have vascular follow with the results. 03/15/2022: Patient seen this morning. Resting in bed. Give endoscopy today. Nothing by mouth. Taking his bowel preparation. Had some dark stool overnight. 03/16/2022: Patient Doppler ultrasound negative for lower extremity DVT. Has no need for anticoagulation. No need for IVC filter. EKG showed vertical superficial duodenal ulcers, duodenitis, gastritis and distal esophagitis. Continue PPI. Colonoscopy was unremarkable. Discussed with patient. Will discharge to [facility] in the [place]. Discussed with ID. Keflex 500 mg every 12 for 10 days Discharge was held as is informed no beds available at the [facility] Active Medications Acetaminophen (Acetaminophen Tab 325 Mg Tab) 650 mg PO Q6HR PRN PRN Reason: Mild Pain or Fever > 100.5 Acetaminophen/Codeine Phosphate (Acetaminophen-Codeine 300-30mg Tab) 1 each PO Q4HR PRN PRN Reason: Moderate to Severe Pain Last Admin: 03/16/22 08:44 Dose: 1 each Allopurinol (Allopurinol 100 Mg Tab) 100 mg PO DAILY [facility] Last Admin: 03/16/22 08:43 Dose: 100 mg Alprazolam (Alprazolam 0.25 Mg Tab) 0.25 mg PO BID PRN PRN Reason: Anxiety Atorvastatin Calcium (Atorvastatin 80 Mg Tab) 80 mg PO DAILY [facility] Last Admin: 03/16/22 08:44 Dose: 80 mg Calcium Carbonate/Glycine (Calcium Carbonate 500 Mg Chewable) 1,000 mg PO Q4HR PRN PRN Reason: Dyspepsia Collagenase (Collagenase 250 Unit/Gm Ointment 30 Gm Tube) 1 applic TOPICAL DAILY [facility]; Protocol Last Admin: 03/16/22 08:44 Dose: 1 applic Dextrose/Water (Dextrose 50% Syringe 50 Ml) 25 ml IVP PER PROTOCOL PRN; Protocol PRN Reason: Hypoglycemia Dextrose/Water (Dextrose 50% Syringe 50 Ml) 50 ml IVP PER PROTOCOL PRN; Protocol PRN Reason: Hypoglycemia Fluoxetine HCl (Fluoxetine Hcl 20 Mg Cap) 20 mg PO DAILY [facility] Last Admin: 03/16/22 08:44 Dose: 20 mg Cefazolin Sodium 2 gm/ Sodium (Chloride) 50 mls @ 100 mls/hr IVPB Q12HR [facility]; Protocol Last Admin: 03/16/22 08:36 Dose: 100 mls/hr Ferric Sodium Gluconate 125 mg (/ Sodium Chloride) 110 mls @ 100 mls/hr IVPB DAILY [facility] Stop: 03/17/22 09:31 Last Admin: 03/16/22 09:17 Dose: 100 mls/hr Insulin Aspart (Insulin Aspart (Novolog) 100 Unit/Ml Vial) 0 unit SQ ACHS [facility]; Protocol Last Admin: 03/16/22 12:55 Dose: 2 unit Isosorbide Mononitrate (Isosorbide Mononitrate Er 30 Mg Tab.Er.24h) 30 mg PO DAILY [facility] Last Admin: 03/16/22 08:44 Dose: 30 mg Lactulose (Lactulose 20 Gm/30 Ml Cup) 20 gm PO DAILY PRN PRN Reason: Constipation Last Admin: 03/13/22 10:47 Dose: 20 gm Metoprolol Succinate (Metoprolol Succinate (Er) 50 Mg Tab.Er.24h) 50 mg PO DAILY [facility] Last Admin: 03/16/22 08:44 Dose: 50 mg Midodrine (Midodrine 5 Mg Tab) 5 mg PO AC-TID [facility] Last Admin: 03/16/22 12:56 Dose: 5 mg Nitroglycerin (Nitroglycerin Sl Tabs 0.4 Mg Tab) 0.4 mg SUBLINGUAL Q5M PRN PRN Reason: Chest Pain Pantoprazole Sodium (Pantoprazole 40 Mg/10 Ml Vial) 40 mg IVP BID [facility] Last Admin: 03/16/22 08:43 Dose: 40 mg Sodium Bicarbonate (Sodium Bicarbonate Tab 650 Mg Tab) 650 mg PO DAILY [facility] Last Admin: 03/16/22 08:44 Dose: 650 mg Tamsulosin HCl (Tamsulosin 0.4 Mg Cap.Er.24h) 0.4 mg PO HS [facility] Last Admin: 03/15/22 21:21 Dose: 0.4 mg Past medical history to include: CAD with stent, diabetes, hypertension, hyperlipidemia, skin cancer on the nose in August 2020, anxiety, left leg common femoral DVT October 2021, hyperuricemia, hepatic steatosis, CHF EF 20-25%. 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 Alcohol rarely. Living with his sister Family history: Diabetes, CAD Physical examination: VITAL SIGNS: 97.8, 76, 16, 107 versus 6, 94% on 2 L GENERAL: In bed, awake EYES: Pupils equal. Conjunctiva normal. HEENT: External appearance of nose and ears normal, oral cavity grossly normal. NECK: JVD possibly raised; masses not palpable. HEART: First and second heart sounds are normal; some edema. LUNGS: Respiratory rate increased; decreased breath sound . ABDOMEN: Soft, nontender, liver spleen not palpable, no masses palpable. PSYCH: [Alert and oriented x3; mood and affect slightly anxious LYMPHATICS: No lymph node palpable neck and axilla Musculoskeletal: Evidence of OA. Some swelling of the right upper extremity- distal to the elbow, some tenderness and redness DERMATOLOGICAL: Dressing on the left leg on wounds INVESTIGATIONS, reviewed in the clinical context: EGD: Duodenitis, superficial.no ulcers, gastritis, esophageal as Colonoscopy: Unremarkable 03/16/2022: WBC 6.2 hemoglobin 8.7 platelets 23 potassium 4 creatinine 2.8 03/13/2022: Hemoglobin 9.3 platelets 179 potassium 3.7 creatinine 3.9 March 12: WBC 8.0 hemoglobin 8.6 platelets 162 potassium 3.5 creatinine 3.6 WBC 9 hemoglobin 9.4 platelets 158 INR 1.5 sodium 135 potassium 4.1. 92 creatinine 2.75 COVID 19/influenza type A/influenza type B: Not detected EKG tracing personally reviewed by me-sinus rhythm, right by her plan block, PVCs Chest x-ray film personally reviewed by me-cardiomegaly. No infiltrates Previous studies: 2-D echocardiogram: EF 20-25%. Left lower extremity venous Doppler: DVT in the common femoral vein. Gallbladder ultrasound: Gallbladder filled with stones. Possible hepatic steatosis. Arterial Doppler results discussed with Dr. Mike: No evidence of vascular compromise Assessment and plan: -Acute kidney injury from ATN.: Some improvement Follow with nephrology. Lasix held. Bactrim was discontinued. IV fluids. -Acute GI bleed in a patient being on eliquis. On March 13. ReceivedK- centra. From underlying esophagitis, gastritis, duodenitis Eliquis discontinued. Aspirin discontinued. -Esophagitis, gastritis, duodenitis, secondary to aspirin eliquis. Bowel discontinued PPI -Acute on chronic medical debility. Multifactorial. 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 -chronic congestive heart failure from ischemic cardiomyopathy EF 20-25%. Toprol-XL. Aldactone held - chronic multiple wounds painful left lower extremity left calf and left ankle likely from venous ulcers from recent DVT. Follow with wound care team/Dr. saleem, ID - DVT of the left common femoral vein, in 10/16/2021. Doppler ultrasound of this admission negative for DVT. eliquis stopped . -Acute cellulitis right upper arm distally. Keflex. Seen by vascular -Choledocholithiasis. Asymptomatic -CAD with a history of stent Aspirin may be resumed down the road currently held because of GI bleed, Lopressor -Diabetes mellitus type 2, chronically on insulin Follow Accu-Cheks and sliding scale insulin. 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 [facility] -Anxiety not otherwise specified Xanax 0.25 mg by mouth twice a day -Hyperuricemia allopurinol 100 mg daily -no code Discharge held as no beds available at the [facility]. Change IV Ancef to Keflex. Other medications to continue.
[2022-03-16 16:30] LABS: Glucose,Whole Blood 229 mg/dL (70-110)
[2022-03-16 20:34] LABS: Glucose,Whole Blood 235 mg/dL (70-110)
[2022-03-16] MEDS: TAMSULOSIN 0.4 MG CAP.ER.24H PO SCH (22:48)
[2022-03-16] MEDS: CEPHALEXIN 500 MG CAP PO SCH (22:48)
[2022-03-17 06:24] LABS: Glucose,Whole Blood 135 mg/dL (70-110)
[2022-03-17] MEDS: PANTOPRAZOLE 40 MG TABLET PO SCH (06:38)
[2022-03-17] MEDS: INSULIN ASPART (NovoLOG) 100 UNIT/ML VIAL SQ SCH ×4 (06:38→20:33)
[2022-03-17] MEDS: MIDODRINE 5 MG TAB PO SCH ×3 (06:38→16:44)
[2022-03-17] MEDS: Acetaminophen-Codeine 300-30mg TAB PO PRN ×3 (06:41→17:32)
[2022-03-17] MEDS: ISOSORBIDE MONONITRATE ER 30 MG TAB.ER.24H PO SCH (07:25)
[2022-03-17] MEDS: FLUoxetine HCL 20 MG CAP PO SCH (07:26)
[2022-03-17] MEDS: ATORVASTATIN 80 MG TAB PO SCH (07:26)
[2022-03-17] MEDS: SODIUM BICARBONATE TAB 650 MG TAB PO SCH (07:26)
[2022-03-17] MEDS: allopurinoL 100 MG TAB PO SCH (07:26)
[2022-03-17] MEDS: CEPHALEXIN 500 MG CAP PO SCH ×2 (07:26→20:33)
[2022-03-17] MEDS: METOPROLOL SUCCINATE (ER) 50 MG TAB.ER.24H PO SCH (07:27)
[2022-03-17] MEDS: SODIUM FERRIC GLUCONAT-SUCROSE 125 MG in SODIUM CHLORIDE 0.9% 100 ML IVPB SCH (09:54)
--- NOTE | 2022-03-17 10:30 | P.PN ---
Subjective Patient is seen in follow-up for acute kidney injury on chronic kidney disease. Renal function better. Creatinine 2.8 today. Nonoliguric. No active bleeding. Hemoglobin stable at 8.7. Lasix and Bactrim discontinued 03/11/2022. Resting in bed. No active complaints. Rivera catheter was DC'd however patient continued to have urine retention and therefore it was reinserted. Objective - Vital Signs Vital signs: Vital Signs Temp 97.2 F L 03/17/22 08:00 Pulse 67 03/17/22 08:00 Resp 19 03/17/22 08:00 BP 109/66 03/17/22 08:00 Pulse Ox 93 L 03/17/22 08:00 FiO2 Intake & Output 03/16/22 03/17/22 03/17/22 18:59 06:59 18:59 Intake Total 150 Output Total 425 Balance 150 -425 Weight 94.2 kg Intake: Intake, IV Titration 150 Amount Sodium Ferric Gluconat- 100 Sucrose 125 mg In Sodium Chloride 0.9% 100 ml @ 100 mls/hr IVPB DAILY VAN Rx#:[id number] ceFAZolin 2 gm In Sodium 50 Chloride 0.9% 50 ml @ 100 mls/hr IVPB Q12HR VAN Rx #:[id number] Output: Urine 325 Post Void Residual 100 Other: Voiding Method Indwelling Catheter Indwelling Catheter Indwelling Catheter # Voids 1 - Exam Vital signs are stable. General: Awake. No acute distress. HEENT: Head exam is unremarkable. On nasal cannula. LUNGS: Breath sounds decreased. HEART: Rate and Rhythm are regular. ABDOMEN: Soft, no distention. EXTREMITITES: Trace edema. Left lower extremity wrapped. No drainage. - Labs CBC & Chem 7: 03/16/22 05:48 03/16/22 05:48 Labs: Abnormal Lab Results - Last 24 Hours (Table) 03/16/22 03/16/22 03/16/22 Range/Units 11:03 16:28 20:32 POC Glucose (mg/dL) 178 H 229 H 235 H (70-110) mg/dL 03/17/22 Range/Units 06:23 POC Glucose (mg/dL) 135 H (70-110) mg/dL Microbiology - Last 24 Hours (Table) 03/10/22 20:53 Blood Culture - Final Blood No Growth after 144 hours 03/10/22 20:40 Blood Culture - Final Blood No Growth after 144 hours Assessment and Plan Assessment: 1. Acute kidney injury secondary to ATN and further worsened with the use of Bactrim. Creatinine peaked at 3.9 this admission -2.8 yesterday. UA fairly benign. No hydronephrosis noted on kidney ultrasound. 2. Chronic kidney disease stage IV with baseline creatinine in the range of 2.5-3. 3. Left lower extremity cellulitis status post Bactrim. ID following. 4. Anemia of chronic kidney disease. Iron deficiency noted. Stool for occult blood positive. Hemoglobin stable. Eliquis stopped. EGD showed superficial duodenal ulcerations, duodenitis, gastritis with erosions and distal esophagitis. No significant abnormalities noted on colonoscopy. 5. Volume overload. Status post IV Lasix this admission. Better. 6. Hypokalemia from diuresis. Magnesium normal. Replaced. Better. Plan: Repeat labs Continue with Rivera catheter Continue with oral sodium bicarb.
[2022-03-17 11:21] LABS: Glucose,Whole Blood 115 mg/dL (70-110)
--- NOTE | 2022-03-17 13:59 | P.PN ---
Progress Note - Text Progress Note Date: 03/17/22 This is a pleasant 66-year-old patient, follows with Dr. Mike Escobar. Chronic stable medical conditions include CAD with stent, diabetes, hypertension, hyperlipidemia anxiety. CAD, hyperuricemia, left leg DVT in October 2021, CHF EF 20 -25% hospital from November 14 through November 21/2022 with leg wounds. seen by ID and vascular. Wound culture - stenotrophomonas maltophilia. Patient does follow the wound care center. Patient now presents with multiple symptoms. Hurting all over. Short of lynette ath. Decreased appetite. Hasn't really eaten for 5 days. Feeling weak. Normally has bowel movements about twice a week. Finding it difficult to walk. He had called 911 as he could not get up to tolerate. Denies any fever and chills. He lists his sister who cannot take care of him anymore. 03/12/2022: Sitting up in a recliner. Eating. Appears comfortable. Case management is looking into placement. Oral intake about 25%. Also has a a acute kidney injury secondary to ATN from Bactrim. IV fluids. Lasix being held. 03/13/2022: Patient was seen this morning. Decreased appetite. Seen by vascular. Right arm swelling appears to be from cellulitis. Has been on Keflex. Right arm elevated. Negative for DVT. 03/14/2022: Patient yesterday had a large dark stool. 2 episodes. Moved to the ICU. ReceivedK-centra. No drop in hemoglobin. Today started on clear liquids. No further bleed. Doppler ultrasound lower extremity ordered. We'll have vascular follow with the results. 03/15/2022: Patient seen this morning. Resting in bed. Give endoscopy today. Nothing by mouth. Taking his bowel preparation. Had some dark stool overnight. 03/16/2022: Patient Doppler ultrasound negative for lower extremity DVT. Has no need for anticoagulation. No need for IVC filter. EKG showed vertical superficial duodenal ulcers, duodenitis, gastritis and distal esophagitis. Continue PPI. Colonoscopy was unremarkable. Discussed with patient. Will discharge to [facility] in the [place]. Discussed with ID. Keflex 500 mg every 12 for 10 days Discharge was held as is informed no beds available at the [facility] 03/17/2022: Sitting up in a chair. Oral intake better. Pending DC to ECF. Active Medications Acetaminophen (Acetaminophen Tab 325 Mg Tab) 650 mg PO Q6HR PRN PRN Reason: Mild Pain or Fever > 100.5 Acetaminophen/Codeine Phosphate (Acetaminophen-Codeine 300-30mg Tab) 1 each PO Q4HR PRN PRN Reason: Moderate to Severe Pain (4-10) Last Admin: 03/17/22 10:42 Dose: 1 each Allopurinol (Allopurinol 100 Mg Tab) 100 mg PO DAILY [facility] Last Admin: 03/17/22 07:26 Dose: 100 mg Alprazolam (Alprazolam 0.25 Mg Tab) 0.25 mg PO BID PRN PRN Reason: Anxiety Atorvastatin Calcium (Atorvastatin 80 Mg Tab) 80 mg PO DAILY [facility] Last Admin: 03/17/22 07:26 Dose: 80 mg Calcium Carbonate/Glycine (Calcium Carbonate 500 Mg Chewable) 1,000 mg PO Q4HR PRN PRN Reason: Dyspepsia Cephalexin (Cephalexin 500 Mg Cap) 500 mg PO BID [facility]; Protocol Last Admin: 03/17/22 07:26 Dose: 500 mg Collagenase (Collagenase 250 Unit/Gm Ointment 30 Gm Tube) 1 applic TOPICAL DAILY [facility]; Protocol Last Admin: 03/16/22 08:44 Dose: 1 applic Dextrose/Water (Dextrose 50% Syringe 50 Ml) 25 ml IVP PER PROTOCOL PRN; Protocol PRN Reason: Hypoglycemia Dextrose/Water (Dextrose 50% Syringe 50 Ml) 50 ml IVP PER PROTOCOL PRN; Protocol PRN Reason: Hypoglycemia Fluoxetine HCl (Fluoxetine Hcl 20 Mg Cap) 20 mg PO DAILY [facility] Last Admin: 03/17/22 07:26 Dose: 20 mg Insulin Aspart (Insulin Aspart (Novolog) 100 Unit/Ml Vial) 0 unit SQ ACHS [facility]; Protocol Last Admin: 03/17/22 11:33 Dose: Not Given Isosorbide Mononitrate (Isosorbide Mononitrate Er 30 Mg Tab.Er.24h) 30 mg PO DAILY [facility] Last Admin: 03/17/22 07:25 Dose: Not Given Lactulose (Lactulose 20 Gm/30 Ml Cup) 20 gm PO DAILY PRN PRN Reason: Constipation Last Admin: 03/13/22 10:47 Dose: 20 gm Metoprolol Succinate (Metoprolol Succinate (Er) 50 Mg Tab.Er.24h) 50 mg PO DAILY [facility] Last Admin: 03/17/22 07:27 Dose: 50 mg Midodrine (Midodrine 5 Mg Tab) 5 mg PO AC-TID [facility] Last Admin: 03/17/22 12:08 Dose: 5 mg Nitroglycerin (Nitroglycerin Sl Tabs 0.4 Mg Tab) 0.4 mg SUBLINGUAL Q5M PRN PRN Reason: Chest Pain Pantoprazole Sodium (Pantoprazole 40 Mg Tablet) 40 mg PO AC-BRKFST [facility] Last Admin: 03/17/22 06:38 Dose: 40 mg Sodium Bicarbonate (Sodium Bicarbonate Tab 650 Mg Tab) 650 mg PO DAILY [facility] Last Admin: 03/17/22 07:26 Dose: 650 mg Tamsulosin HCl (Tamsulosin 0.4 Mg Cap.Er.24h) 0.4 mg PO HS [facility] Last Admin: 03/16/22 22:48 Dose: 0.4 mg Past medical history to include: CAD with stent, diabetes, hypertension, hyperlipidemia, skin cancer on the nose in August 2020, anxiety, left leg common femoral DVT October 2021, hyperuricemia, hepatic steatosis, CHF EF 20-25%. 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 Alcohol rarely. Living with his sister Family history: Diabetes, CAD Physical examination: VITAL SIGNS: 97.2, 67, 19, 109/66, 93% room air GENERAL: Sitting up in chair, awake, comfortable EYES: Pupils equal. Conjunctiva normal. HEENT: External appearance of nose and ears normal, oral cavity grossly normal. NECK: JVD possibly raised; masses not palpable. HEART: First and second heart sounds are normal; some edema. LUNGS: Respiratory rate increased; decreased breath sound . ABDOMEN: Soft, nontender, liver spleen not palpable, no masses palpable. PSYCH: [Alert and oriented x3; mood and affect slightly anxious LYMPHATICS: No lymph node palpable neck and axilla Musculoskeletal: Evidence of OA. Some swelling of the right upper extremity- distal to the elbow, some tenderness and redness DERMATOLOGICAL: Dressing on the left leg on wounds INVESTIGATIONS, reviewed in the clinical context: EGD: Duodenitis, superficial.no ulcers, gastritis, esophageal as Colonoscopy: Unremarkable 03/16/2022: WBC 6.2 hemoglobin 8.7 platelets 23 potassium 4 creatinine 2.8 03/13/2022: Hemoglobin 9.3 platelets 179 potassium 3.7 creatinine 3.9 March 12: WBC 8.0 hemoglobin 8.6 platelets 162 potassium 3.5 creatinine 3.6 WBC 9 hemoglobin 9.4 platelets 158 INR 1.5 sodium 135 potassium 4.1. 92 creatinine 2.75 COVID 19/influenza type A/influenza type B: Not detected EKG tracing personally reviewed by me-sinus rhythm, right by her plan block, PVCs Chest x-ray film personally reviewed by me-cardiomegaly. No infiltrates Previous studies: 2-D echocardiogram: EF 20-25%. Left lower extremity venous Doppler: DVT in the common femoral vein. Gallbladder ultrasound: Gallbladder filled with stones. Possible hepatic steatosis. Arterial Doppler results discussed with Dr. Mike: No evidence of vascular compromise Assessment and plan: -Acute kidney injury from ATN.: Some improvement Follow with nephrology. Lasix held. Bactrim was discontinued. IV fluids. -Acute GI bleed in a patient being on eliquis. On March 13. ReceivedK- centra. From underlying esophagitis, gastritis, duodenitis Eliquis discontinued. Aspirin discontinued. -Esophagitis, gastritis, duodenitis, secondary to aspirin eliquis. Bowel discontinued PPI -Acute on chronic medical debility. Multifactorial. 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 -chronic congestive heart failure from ischemic cardiomyopathy EF 20-25%. Toprol-XL. Aldactone held - chronic multiple wounds painful left lower extremity left calf and left ankle likely from venous ulcers from recent DVT. Follow with wound care team/Dr. saleem, [place] - DVT of the left common femoral vein, in 10/16/2021. Doppler ultrasound of this admission negative for DVT. eliquis stopped . -Acute cellulitis right upper arm distally. Keflex. Seen by vascular -Choledocholithiasis. Asymptomatic -CAD with a history of stent Aspirin may be resumed down the road currently held because of GI bleed, Lopressor -Diabetes mellitus type 2, chronically on insulin Follow Accu-Cheks and sliding scale insulin. 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 Pending discharged to [facility] on Saturday.
[2022-03-17] MEDS: COLLAGENASE 250 UNIT/GM OINTMENT 30 GM TUBE TOPICAL SCH (15:49)
[2022-03-17 16:10] LABS: Glucose,Whole Blood 135 mg/dL (70-110)
--- NOTE | 2022-03-17 18:55 | P.PN ---
Subjective Progress Note Date: 03/17/22 CHIEF COMPLAINT: Gastrointestinal bleeding HISTORY OF PRESENT ILLNESS: The patient is a 66-year-old male with history of gastrointestinal bleeding. He had both upper and lower endoscopy. He was on Eliquis. Patient has chronic kidney disease. Hemoglobin has been stable 8.7- 8.8. He is on a regular diet. No further reports of bleeding. ROS: No reports of nausea and vomiting. No fevers or chills. No new chest pain. No productive sputum PHYSICAL EXAM: VITAL SIGNS: Reviewed CONSTITUTIONAL: Well developed and in no acute distress. EYES: Conjuctivae without sclera icterus. Extraocular movements grossly intact. HEAD, EARS, NOSE, THROAT: Moist buccal mucosa. Head is atraumatic, normoceph alic. Hears conversational speech. No nasal drainage. RESPIRATORY: Non-labored respirations and equal bilateral excursions. CARDIOVASCULAR: Palpable 2+ radial pulses. ABDOMEN: No peritonitis MUSCULOSKELETAL: No gross deformity of the lower extremities noted. No clubbing. No cyanosis. SKIN: Good skin turgor. Well perfused. NEUROLOGIC: Cranial nerves II through XII grossly intact. No focal or lateralizing signs. PSYCH: Appropriate affect. Alert and oriented to person, place and time. CLINICAL LABS: Reviewed. Hemoglobin 8.7 to 8.8. ASSESSMENT: 1. Gastrointestinal bleeding 2. Duodenal ulcerations PLAN: 1. Diet as tolerated. 2. Monitor hemoglobin Objective - Vital Signs Vital signs: Vital Signs Temp 97.2 F L 03/17/22 08:00 Pulse 67 03/17/22 08:00 Resp 19 03/17/22 08:00 BP 104/64 03/17/22 12:08 Pulse Ox 93 L 03/17/22 08:00 FiO2 Intake & Output 03/16/22 03/17/22 03/17/22 18:59 06:59 18:59 Intake Total 150 Output Total 425 Balance 150 -425 Weight 94.2 kg Intake: Intake, IV Titration 150 Amount Sodium Ferric Gluconat- 100 Sucrose 125 mg In Sodium Chloride 0.9% 100 ml @ 100 mls/hr IVPB DAILY [facility] Rx#:[id number] ceFAZolin 2 gm In Sodium 50 Chloride 0.9% 50 ml @ 100 mls/hr IVPB Q12HR [facility] Rx #:[id number] Output: Urine 325 Post Void Residual 100 Other: Voiding Method Indwelling Catheter Indwelling Catheter Indwelling Catheter # Voids 1 - Labs CBC & Chem 7: 03/16/22 05:48 03/16/22 05:48 Labs: Abnormal Lab Results - Last 24 Hours (Table) 03/16/22 03/16/22 03/17/22 Range/Units 16:28 20:32 06:23 POC Glucose (mg/dL) 229 H 235 H 135 H (70-110) mg/dL 03/17/22 Range/Units 11:19 POC Glucose (mg/dL) 115 H (70-110) mg/dL Microbiology - Last 24 Hours (Table) 03/10/22 20:53 Blood Culture - Final Blood No Growth after 144 hours 03/10/22 20:40 Blood Culture - Final Blood No Growth after 144 hours
[2022-03-17 20:07] LABS: Glucose,Whole Blood 237 mg/dL (70-110)
[2022-03-17] MEDS: TAMSULOSIN 0.4 MG CAP.ER.24H PO SCH (20:33)
[2022-03-18] MEDS: Acetaminophen-Codeine 300-30mg TAB PO PRN ×3 (00:16→14:14)
[2022-03-18 06:08] LABS: Glucose,Whole Blood 146 mg/dL (70-110)
[2022-03-18] MEDS: INSULIN ASPART (NovoLOG) 100 UNIT/ML VIAL SQ SCH ×4 (06:39→21:53)
[2022-03-18] MEDS: MIDODRINE 5 MG TAB PO SCH ×3 (08:02→17:07)
[2022-03-18] MEDS: ISOSORBIDE MONONITRATE ER 30 MG TAB.ER.24H PO SCH (08:03)
[2022-03-18] MEDS: FLUoxetine HCL 20 MG CAP PO SCH (08:03)
[2022-03-18] MEDS: CEPHALEXIN 500 MG CAP PO SCH ×2 (08:03→20:01)
[2022-03-18] MEDS: METOPROLOL SUCCINATE (ER) 50 MG TAB.ER.24H PO SCH (08:03)
[2022-03-18] MEDS: ATORVASTATIN 80 MG TAB PO SCH (08:03)
[2022-03-18] MEDS: allopurinoL 100 MG TAB PO SCH (08:03)
[2022-03-18] MEDS: PANTOPRAZOLE 40 MG TABLET PO SCH (08:03)
[2022-03-18] MEDS: SODIUM BICARBONATE TAB 650 MG TAB PO SCH (08:03)
[2022-03-18] MEDS: COLLAGENASE 250 UNIT/GM OINTMENT 30 GM TUBE TOPICAL SCH (09:17)
--- NOTE | 2022-03-18 10:17 | P.PN ---
Subjective Patient is seen in follow-up for acute kidney injury on chronic kidney disease. Renal function better. Creatinine 2.8 today. Nonoliguric. No active bleeding. Hemoglobin stable at 8.7. Lasix and Bactrim discontinued 03/11/2022. Resting in bed. No active complaints. Rivera catheter was DC'd however patient continued to have urine retention and therefore it was reinserted. Complaining of constipation. Last bowel movement 2 days ago Objective - Vital Signs Vital signs: Vital Signs Temp 97.5 F L 03/18/22 02:03 Pulse 57 L 03/18/22 02:03 Resp 17 03/18/22 02:03 BP 105/61 03/18/22 02:03 Pulse Ox 96 03/18/22 02:03 FiO2 Intake & Output 03/17/22 03/18/22 03/18/22 18:59 06:59 18:59 Output Total 425 300 Balance -425 -300 Output: Urine 425 300 Other: Voiding Method Indwelling Catheter Indwelling Catheter - Exam Vital signs are stable. General: Awake. No acute distress. HEENT: Head exam is unremarkable. On nasal cannula. LUNGS: Breath sounds decreased. HEART: Rate and Rhythm are regular. ABDOMEN: Soft, no distention. EXTREMITITES: Trace edema. Left lower extremity wrapped. No drainage. - Labs CBC & Chem 7: 03/16/22 05:48 03/16/22 05:48 Labs: Abnormal Lab Results - Last 24 Hours (Table) 03/17/22 03/17/22 03/17/22 Range/Units 11:19 16:09 20:04 POC Glucose (mg/dL) 115 H 135 H 237 H (70-110) mg/dL 03/18/22 Range/Units 06:06 POC Glucose (mg/dL) 146 H (70-110) mg/dL Assessment and Plan Assessment: 1. Acute kidney injury secondary to ATN and further worsened with the use of Bactrim. Creatinine peaked at 3.9 this admission -2.8 on 03/16/2022. UA fairly benign. No hydronephrosis noted on kidney ultrasound. 2. Chronic kidney disease stage IV with baseline creatinine in the range of 2.5-3. 3. Left lower extremity cellulitis status post Bactrim. ID following. 4. Anemia of chronic kidney disease. Iron deficiency noted. Stool for occult blood positive. Hemoglobin stable. Eliquis stopped. EGD showed superficial duodenal ulcerations, duodenitis, gastritis with erosions and distal esophagitis. No significant abnormalities noted on colonoscopy. 5. Volume overload. Status post IV Lasix this admission. Better. 6. Hypokalemia from diuresis. Magnesium normal. Replaced. Better. Plan: Repeat labs Continue with Rivera catheter Continue with oral sodium bicarb.
[2022-03-18 11:22] LABS: Glucose,Whole Blood 210 mg/dL (70-110)
[2022-03-18 11:23] LABS: African American GFR (CKD) 33 (>60 ml/min/1.73 sqM); Anion Gap 6 mmol/L; Blood Urea Nitrogen 61 mg/dL (9-20); Calcium 8.3 mg/dL (8.4-10.2); Carbon Dioxide 26 mmol/L (22-30); Chloride 101 mmol/L (98-107); Glucose 178 mg/dL (74-99); Non-African American GFR(CKD) 28 (>60 ml/min/1.73 sqM); Sodium 133 mmol/L (137-145)
[2022-03-18] MEDS: LACTULOSE 20 GM/30 ML CUP PO PRN (14:14)
[2022-03-18 16:00] LABS: Glucose,Whole Blood 150 mg/dL (70-110)
--- NOTE | 2022-03-18 19:03 | P.PN ---
Progress Note - Text Progress Note Date: 03/18/22 This is a pleasant 66-year-old patient, follows with Dr. Mike Escobar. Chronic stable medical conditions include CAD with stent, diabetes, hypertension, hyperlipidemia anxiety. CAD, hyperuricemia, left leg DVT in October 2021, CHF EF 20 -25% hospital from November 14 through November 21/2022 with leg wounds. seen by ID and vascular. Wound culture - stenotrophomonas maltophilia. Patient does follow the wound care center. Patient now presents with multiple symptoms. Hurting all over. Short of lynette ath. Decreased appetite. Hasn't really eaten for 5 days. Feeling weak. Normally has bowel movements about twice a week. Finding it difficult to walk. He had called 911 as he could not get up to tolerate. Denies any fever and chills. He lists his sister who cannot take care of him anymore. 03/12/2022: Sitting up in a recliner. Eating. Appears comfortable. Case management is looking into placement. Oral intake about 25%. Also has a a acute kidney injury secondary to ATN from Bactrim. IV fluids. Lasix being held. 03/13/2022: Patient was seen this morning. Decreased appetite. Seen by vascular. Right arm swelling appears to be from cellulitis. Has been on Keflex. Right arm elevated. Negative for DVT. 03/14/2022: Patient yesterday had a large dark stool. 2 episodes. Moved to the ICU. ReceivedK-centra. No drop in hemoglobin. Today started on clear liquids. No further bleed. Doppler ultrasound lower extremity ordered. We'll have vascular follow with the results. 03/15/2022: Patient seen this morning. Resting in bed. Give endoscopy today. Nothing by mouth. Taking his bowel preparation. Had some dark stool overnight. 03/16/2022: Patient Doppler ultrasound negative for lower extremity DVT. Has no need for anticoagulation. No need for IVC filter. EKG showed vertical superficial duodenal ulcers, duodenitis, gastritis and distal esophagitis. Continue PPI. Colonoscopy was unremarkable. Discussed with patient. Will discharge to [facility] in the [place]. Discussed with ID. Keflex 500 mg every 12 for 10 days Discharge was held as is informed no beds available at the [facility] 03/17/2022: Sitting up in a chair. Oral intake better. Pending DC to [facility]. 03/18/2022: Oral intake fair. Comfortable. Pending DC to ECF. Active Medications Acetaminophen (Acetaminophen Tab 325 Mg Tab) 650 mg PO Q6HR PRN PRN Reason: Mild Pain or Fever > 100.5 Acetaminophen/Codeine Phosphate (Acetaminophen-Codeine 300-30mg Tab) 1 each PO Q4HR PRN PRN Reason: Moderate to Severe Pain (4-10) Last Admin: 03/18/22 14:14 Dose: 1 each Allopurinol (Allopurinol 100 Mg Tab) 100 mg PO DAILY [facility] Last Admin: 03/18/22 08:03 Dose: 100 mg Alprazolam (Alprazolam 0.25 Mg Tab) 0.25 mg PO BID PRN PRN Reason: Anxiety Atorvastatin Calcium (Atorvastatin 80 Mg Tab) 80 mg PO DAILY [facility] Last Admin: 03/18/22 08:03 Dose: 80 mg Calcium Carbonate/Glycine (Calcium Carbonate 500 Mg Chewable) 1,000 mg PO Q4HR PRN PRN Reason: Dyspepsia Cephalexin (Cephalexin 500 Mg Cap) 500 mg PO BID [facility]; Protocol Last Admin: 03/18/22 08:03 Dose: 500 mg Collagenase (Collagenase 250 Unit/Gm Ointment 30 Gm Tube) 1 applic TOPICAL DAILY [facility]; Protocol Last Admin: 03/18/22 09:17 Dose: 1 applic Dextrose/Water (Dextrose 50% Syringe 50 Ml) 25 ml IVP PER PROTOCOL PRN; Protocol PRN Reason: Hypoglycemia Dextrose/Water (Dextrose 50% Syringe 50 Ml) 50 ml IVP PER PROTOCOL PRN; Protocol PRN Reason: Hypoglycemia Fluoxetine HCl (Fluoxetine Hcl 20 Mg Cap) 20 mg PO DAILY [facility] Last Admin: 03/18/22 08:03 Dose: 20 mg Insulin Aspart (Insulin Aspart (Novolog) 100 Unit/Ml Vial) 0 unit SQ ACHS [facility]; Protocol Last Admin: 03/18/22 16:09 Dose: Not Given Isosorbide Mononitrate (Isosorbide Mononitrate Er 30 Mg Tab.Er.24h) 30 mg PO DAILY [facility] Last Admin: 03/18/22 08:03 Dose: 30 mg Lactulose (Lactulose 20 Gm/30 Ml Cup) 20 gm PO DAILY PRN PRN Reason: Constipation Last Admin: 03/18/22 14:14 Dose: 20 gm Metoprolol Succinate (Metoprolol Succinate (Er) 50 Mg Tab.Er.24h) 50 mg PO DAILY [facility] Last Admin: 03/18/22 08:03 Dose: 50 mg Midodrine (Midodrine 5 Mg Tab) 5 mg PO AC-TID [facility] Last Admin: 03/18/22 17:07 Dose: Not Given Nitroglycerin (Nitroglycerin Sl Tabs 0.4 Mg Tab) 0.4 mg SUBLINGUAL Q5M PRN PRN Reason: Chest Pain Pantoprazole Sodium (Pantoprazole 40 Mg Tablet) 40 mg PO AC-BRKFST [facility] Last Admin: 03/18/22 08:03 Dose: 40 mg Sodium Bicarbonate (Sodium Bicarbonate Tab 650 Mg Tab) 650 mg PO DAILY [facility] Last Admin: 03/18/22 08:03 Dose: 650 mg Tamsulosin HCl (Tamsulosin 0.4 Mg Cap.Er.24h) 0.4 mg PO HS [facility] Last Admin: 03/17/22 20:33 Dose: 0.4 mg Past medical history to include: CAD with stent, diabetes, hypertension, hyperlipidemia, skin cancer on the nose in August 2020, anxiety, left leg common femoral DVT October 2021, hyperuricemia, hepatic steatosis, CHF EF 20-25%. 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 Alcohol rarely. Living with his sister Family history: Diabetes, CAD Physical examination: VITAL SIGNS: 97.8, 65, 16, 96 x 53, 95% GENERAL: Sitting up in chair, awake, comfortable EYES: Pupils equal. Conjunctiva normal. HEENT: External appearance of nose and ears normal, oral cavity grossly normal. NECK: JVD possibly raised; masses not palpable. HEART: First and second heart sounds are normal; some edema. LUNGS: Respiratory rate increased; decreased breath sound . ABDOMEN: Soft, nontender, liver spleen not palpable, no masses palpable. PSYCH: [Alert and oriented x3; mood and affect slightly anxious LYMPHATICS: No lymph node palpable neck and axilla Musculoskeletal: Evidence of OA. Some swelling of the right upper extremity- distal to the elbow, some tenderness and redness DERMATOLOGICAL: Dressing on the left leg on wounds INVESTIGATIONS, reviewed in the clinical context: 03/18/2022: Creatinine 2.28 EGD: Duodenitis, superficial.no ulcers, gastritis, esophageal as Colonoscopy: Unremarkable 03/16/2022: WBC 6.2 hemoglobin 8.7 platelets 23 potassium 4 creatinine 2.8 03/13/2022: Hemoglobin 9.3 platelets 179 potassium 3.7 creatinine 3.9 March 12: WBC 8.0 hemoglobin 8.6 platelets 162 potassium 3.5 creatinine 3.6 WBC 9 hemoglobin 9.4 platelets 158 INR 1.5 sodium 135 potassium 4.1. 92 creatinine 2.75 COVID 19/influenza type A/influenza type B: Not detected EKG tracing personally reviewed by me-sinus rhythm, right by her plan block, PVCs Chest x-ray film personally reviewed by me-cardiomegaly. No infiltrates Previous studies: 2-D echocardiogram: EF 20-25%. Left lower extremity venous Doppler: DVT in the common femoral vein. Gallbladder ultrasound: Gallbladder filled with stones. Possible hepatic steatosis. Arterial Doppler results discussed with Dr. Mike: No evidence of vascular compromise Assessment and plan: -Acute kidney injury from ATN.: improvement Follow with nephrology. Lasix held. Bactrim was discontinued. IV fluids. -Acute GI bleed in a patient being on eliquis. On March 13. ReceivedK- centra. From underlying esophagitis, gastritis, duodenitis Eliquis discontinued. Aspirin discontinued. -Esophagitis, gastritis, duodenitis, secondary to aspirin eliquis. Bowel discontinued PPI -Acute on chronic medical debility. Multifactorial. 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 -chronic congestive heart failure from ischemic cardiomyopathy EF 20-25%. Toprol-XL. Aldactone held - chronic multiple wounds painful left lower extremity left calf and left ankle likely from venous ulcers from recent DVT. Follow with wound care team/Dr. saleem, [place] - DVT of the left common femoral vein, in 10/16/2021. Doppler ultrasound of this admission negative for DVT. eliquis stopped . -Acute cellulitis right upper arm distally. Keflex. Seen by vascular -Choledocholithiasis. Asymptomatic -CAD with a history of stent Aspirin may be resumed down the road currently held because of GI bleed, Lopressor -Diabetes mellitus type 2, chronically on insulin Follow Accu-Cheks and sliding scale insulin. 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 Reel [facility]er nephrology -Anxiety not otherwise specified Xanax 0.25 mg by mouth twice a day -Hyperuricemia allopurinol 100 mg daily -no code Continue current medication treatment plan. Pending DC to ECF.
[2022-03-18] MEDS: TAMSULOSIN 0.4 MG CAP.ER.24H PO SCH (20:01)
[2022-03-18 20:52] LABS: Glucose,Whole Blood 172 mg/dL (70-110)
--- NOTE | 2022-03-18 22:26 | P.PN ---
Subjective Progress Note Date: 03/18/22 CHIEF COMPLAINT: Gastrointestinal bleeding HISTORY OF PRESENT ILLNESS: The patient is a 66-year-old male with history of gastrointestinal bleeding. He had both upper and lower endoscopy. He denies any blood in stools. He reports constipation. He reports decreased appetite. ROS: No reports of nausea and vomiting. No fevers or chills. No new chest pain. No productive sputum PHYSICAL EXAM: VITAL SIGNS: Reviewed CONSTITUTIONAL: Well developed and in no acute distress. EYES: Conjuctivae without sclera icterus. Extraocular movements grossly intact. HEAD, EARS, NOSE, THROAT: Moist buccal mucosa. Head is atraumatic, normocephalic. Hears conversational speech. No nasal drainage. RESPIRATORY: Non-labored respirations and equal bilateral excursions. CARDIOVASCULAR: Palpable 2+ radial pulses. ABDOMEN: No peritonitis MUSCULOSKELETAL: No gross deformity of the lower extremities noted. No clubbing. No cyanosis. SKIN: Good skin turgor. Well perfused. NEUROLOGIC: Cranial nerves II through XII grossly intact. No focal or lateralizing signs. PSYCH: Appropriate affect. Alert and oriented to person, place and time. CLINICAL LABS: Reviewed. Creatinine down 2.8 to 2.28 ASSESSMENT: 1. Gastrointestinal bleeding 2. Duodenal ulcerations PLAN: 1. May need laxatives for constipation 2. Monitor hemoglobin Objective - Vital Signs Vital signs: Vital Signs Temp 97.6 F 03/18/22 20:10 Pulse 60 03/18/22 20:10 Resp 18 03/18/22 20:10 BP 122/77 03/18/22 20:10 Pulse Ox 97 03/18/22 20:10 FiO2 Intake & Output 03/18/22 03/18/22 03/19/22 06:59 18:59 06:59 Output Total 300 500 Balance -300 -500 Output: Urine 300 500 Other: Voiding Method Indwelling Catheter Indwelling Catheter Indwelling Catheter - Labs CBC & Chem 7: 03/16/22 05:48 03/18/22 10:53 Labs: Abnormal Lab Results - Last 24 Hours (Table) 03/18/22 03/18/22 03/18/22 Range/Units 06:06 10:53 11:21 Sodium 133 L (137-145) mmol/L BUN 61 H (9-20) mg/dL Creatinine 2.28 H (0.66-1.25) mg/dL Glucose 178 H (74-99) mg/dL POC Glucose (mg/dL) 146 H 210 H (70-110) mg/dL Calcium 8.3 L (8.4-10.2) mg/dL 03/18/22 03/18/22 Range/Units 15:59 20:50 Sodium (137-145) mmol/L BUN (9-20) mg/dL Creatinine (0.66-1.25) mg/dL Glucose (74-99) mg/dL POC Glucose (mg/dL) 150 H 172 H (70-110) mg/dL Calcium (8.4-10.2) mg/dL
[2022-03-19 06:02] LABS: Glucose,Whole Blood 151 mg/dL (70-110)
[2022-03-19] MEDS: INSULIN ASPART (NovoLOG) 100 UNIT/ML VIAL SQ SCH ×4 (06:20→20:48)
[2022-03-19] MEDS: Acetaminophen-Codeine 300-30mg TAB PO PRN (06:20)
[2022-03-19] MEDS: PANTOPRAZOLE 40 MG TABLET PO SCH (06:20)
[2022-03-19] MEDS: MIDODRINE 5 MG TAB PO SCH ×3 (06:21→17:44)
--- NOTE | 2022-03-19 08:54 | P.PN ---
Subjective Progress Note Date: 03/16/22 Principal diagnosis: Left lower extremity wound Patient is a 66-year-old male with a past medical history of "ischemic cardiomyopathy coronary disease hypertension hyperlipidemia left lower extremity DVT chronic kidney disease in this patient who did have a chronic left lower extremity wound on the lateral as well as medial aspect Patient presented to hospital with generalized weakness. Patient is scheduled for EGD and colonoscopy this afternoon On today's evaluation that is 03/16/2022, the patient continues to be afebrile, the patient is breathing comfortably on nasal cannula, patient pain in the left lower extremity wound is currently controlled, the patient denies chest pain shortness with or cough no abdominal pain no diarrhea Objective - Vital Signs Vital signs: Vital Signs Temp 97.8 F 03/16/22 08:00 Pulse 76 03/16/22 08:00 Resp 16 03/16/22 08:00 BP 107/66 03/16/22 08:00 Pulse Ox 94 L 03/16/22 08:38 FiO2 Intake & Output 03/15/22 03/16/22 03/16/22 18:59 06:59 18:59 Intake Total 550 Output Total 1100 Balance 550 -1100 Weight 94.2 kg Intake: IV 400 Intake, IV Titration 150 Amount Sodium Ferric Gluconat- 100 Sucrose 125 mg In Sodium Chloride 0.9% 100 ml @ 100 mls/hr IVPB DAILY VAN Rx#:[id number] ceFAZolin 2 gm In Sodium 50 Chloride 0.9% 50 ml @ 100 mls/hr IVPB Q12HR VAN Rx #:[id number] Output: Urine 1100 Other: Voiding Method Indwelling Catheter Indwelling Catheter Indwelling Catheter - Exam GENERAL DESCRIPTION: Elderly male lying in bed, no distress. No tachypnea or accessory muscle of respiration use. LUNGS: Unlabored breathing. Decreased breath sound at the base HEART: S1, S2, regular rate and rhythm. No loud murmur ABDOMEN: Soft, no tenderness , guarding or rigidity, no organomegaly EXTREMITIES: Left leg wounds with minimal slough tissue no significant surrounding redness or drainage. - Labs CBC & Chem 7: 03/16/22 05:48 03/18/22 10:53 Labs: Abnormal Lab Results - Last 24 Hours (Table) 03/15/22 03/15/22 03/16/22 Range/Units 16:34 20:51 05:48 RBC (4.30-5.90) m/uL Hgb (13.0-17.5) gm/dL Hct (39.0-53.0) % RDW (11.5-15.5) % Lymphocytes # (1.0-4.8) k/uL BUN 72.6 H (9.0-27.0) mg/dL Creatinine 2.8 H (0.6-1.5) mg/dL Est GFR (CKD-EPI)AfAm 25.7 L (60.0-200.0) Est GFR (CKD-EPI)NonAf 22.2 L (60.0-200.0) BUN/Creatinine Ratio 25.93 H (12.00-20.00) Ratio Glucose 142 H (70-110) mg/dL POC Glucose (mg/dL) 160 H 200 H (70-110) mg/dL 03/16/22 03/16/22 03/16/22 Range/Units 05:48 05:59 11:03 RBC 2.87 L (4.30-5.90) m/uL Hgb 8.7 L (13.0-17.5) gm/dL Hct 28.2 L (39.0-53.0) % RDW 19.8 H (11.5-15.5) % Lymphocytes # 0.5 L (1.0-4.8) k/uL BUN (9.0-27.0) mg/dL Creatinine (0.6-1.5) mg/dL Est GFR (CKD-EPI)AfAm (60.0-200.0) Est GFR (CKD-EPI)NonAf (60.0-200.0) BUN/Creatinine Ratio (12.00-20.00) Ratio Glucose (70-110) mg/dL POC Glucose (mg/dL) 176 H 178 H (70-110) mg/dL Microbiology - Last 24 Hours (Table) 03/10/22 20:40 Blood Culture - Preliminary Blood No Growth after 120 hours 03/10/22 20:53 Blood Culture - Preliminary Blood No Growth after 120 hours 03/10/22 21:35 Anaerobic Culture - Final Leg - Left Assessment and Plan (1) Chronic ulcer of left leg Current Visit: Yes Status: Acute Code(s): L97.929 - NON-PRS CHRONIC ULC UNSP PRT OF L LOW LEG W UNSP SEVERITY SNOMED Code(s): 55420123 Plan: 1patient with a chronic nonhealing wound to the left lower extremity both on the medial and lateral aspect did have minimal slough tissue however there is no significant surrounding swelling or redness patient not running any fever did have a normal white 2patient with the abnormal kidney function high risk of nephrotoxicity from the Bactrim DS which has been discontinued. 3 we will continue local wound care with Santyl followed by moist dressing change daily . 4-patient local cultures came back positive for group G strep, patient anabolic has this issue with oral Keflex 7 days on discharge Time with Patient: Less than 30
--- NOTE | 2022-03-19 08:55 | P.PN ---
Subjective Progress Note Date: 03/17/22 Principal diagnosis: Left lower extremity wound Patient is a 66-year-old male with a past medical history of "ischemic cardiomyopathy coronary disease hypertension hyperlipidemia left lower extremity DVT chronic kidney disease in this patient who did have a chronic left lower extremity wound on the lateral as well as medial aspect Patient presented to hospital with generalized weakness. Patient is scheduled for EGD and colonoscopy this afternoon On today's evaluation that is 03/17/2022, the patient remains to be afebrile, the patient is breathing comfortably on 2 L nasal cannula, patient pain in the left lower extremity wound is controlled with the current medication, the patient denies chest pain shortness with or cough no abdominal pain no diarrhea Objective - Vital Signs Vital signs: Vital Signs Temp 97.2 F L 03/17/22 08:00 Pulse 67 03/17/22 08:00 Resp 19 03/17/22 08:00 BP 104/64 03/17/22 12:08 Pulse Ox 93 L 03/17/22 08:00 FiO2 Intake & Output 03/16/22 03/17/22 03/17/22 18:59 06:59 18:59 Intake Total 150 Output Total 425 Balance 150 -425 Weight 94.2 kg Intake: Intake, IV Titration 150 Amount Sodium Ferric Gluconat- 100 Sucrose 125 mg In Sodium Chloride 0.9% 100 ml @ 100 mls/hr IVPB DAILY VAN Rx#:[id number] ceFAZolin 2 gm In Sodium 50 Chloride 0.9% 50 ml @ 100 mls/hr IVPB Q12HR VAN Rx #:[id number] Output: Urine 325 Post Void Residual 100 Other: Voiding Method Indwelling Catheter Indwelling Catheter Indwelling Catheter # Voids 1 - Exam GENERAL DESCRIPTION: Elderly male lying in bed, no distress. No tachypnea or accessory muscle of respiration use. LUNGS: Unlabored breathing. Decreased breath sound at the base HEART: S1, S2, regular rate and rhythm. No loud murmur ABDOMEN: Soft, no tenderness , guarding or rigidity, no organomegaly EXTREMITIES: Left leg wounds with minimal slough tissue no significant surrounding redness or drainage. - Labs CBC & Chem 7: 03/16/22 05:48 03/18/22 10:53 Labs: Abnormal Lab Results - Last 24 Hours (Table) 03/16/22 03/16/22 03/17/22 Range/Units 16:28 20:32 06:23 POC Glucose (mg/dL) 229 H 235 H 135 H (70-110) mg/dL 03/17/22 Range/Units 11:19 POC Glucose (mg/dL) 115 H (70-110) mg/dL Microbiology - Last 24 Hours (Table) 03/10/22 20:53 Blood Culture - Final Blood No Growth after 144 hours 03/10/22 20:40 Blood Culture - Final Blood No Growth after 144 hours Assessment and Plan (1) Chronic ulcer of left leg Current Visit: Yes Status: Acute Code(s): L97.929 - NON-PRS CHRONIC ULC UNSP PRT OF L LOW LEG W UNSP SEVERITY SNOMED Code(s): 15142068 Plan: 1patient with a chronic nonhealing wound to the left lower extremity both on the medial and lateral aspect did have minimal slough tissue however there is no significant surrounding swelling or redness patient not running any fever did have a normal white 2patient with the abnormal kidney function high risk of nephrotoxicity from the Bactrim DS which has been discontinued. 3 we will continue local wound care with Santyl followed by moist dressing change daily . 4-patient local cultures came back positive for group G strep, patient currently covered with oral Keflex and continue local wound care as ordered Time with Patient: Less than 30
--- NOTE | 2022-03-19 08:57 | P.PN ---
Subjective Progress Note Date: 03/18/22 Principal diagnosis: Left lower extremity wound Patient is a 66-year-old male with a past medical history for ischemic cardiomyopathy coronary disease hypertension hyperlipidemia left lower extremity DVT chronic kidney disease in this patient who did have a chronic left lower extremity wound on the lateral as well as medial aspect Patient presented to hospital with generalized weakness. Patient is scheduled for EGD and colonoscopy this afternoon On today's evaluation that is 03/18/2022, the patient is afebrile, the patient is breathing comfortably on room air, patient denies any worsening pain in the left lower extremity wounds, the patient denies chest pain shortness with or cough no abdominal pain no diarrhea Objective - Vital Signs Vital signs: Vital Signs Temp 97.8 F 03/19/22 01:07 Pulse 75 03/19/22 01:07 Resp 18 03/19/22 01:07 BP 107/71 03/19/22 01:07 Pulse Ox 91 L 03/19/22 01:07 FiO2 Intake & Output 03/18/22 03/19/22 03/19/22 18:59 06:59 18:59 Output Total 500 300 Balance -500 -300 Output: Urine 500 300 Other: Voiding Method Indwelling Catheter Indwelling Catheter - Exam GENERAL DESCRIPTION: Elderly male lying in bed, no distress. No tachypnea or accessory muscle of respiration use. LUNGS: Unlabored breathing. Decreased breath sound at the base HEART: S1, S2, regular rate and rhythm. No loud murmur ABDOMEN: Soft, no tenderness , guarding or rigidity, no organomegaly EXTREMITIES: Left leg wounds with minimal slough tissue no significant surrounding redness or drainage. - Labs CBC & Chem 7: 03/16/22 05:48 03/18/22 10:53 Labs: Abnormal Lab Results - Last 24 Hours (Table) 03/18/22 03/18/22 03/18/22 Range/Units 10:53 11:21 15:59 Sodium 133 L (137-145) mmol/L BUN 61 H (9-20) mg/dL Creatinine 2.28 H (0.66-1.25) mg/dL Glucose 178 H (74-99) mg/dL POC Glucose (mg/dL) 210 H 150 H (70-110) mg/dL Calcium 8.3 L (8.4-10.2) mg/dL 03/18/22 03/19/22 Range/Units 20:50 06:00 Sodium (137-145) mmol/L BUN (9-20) mg/dL Creatinine (0.66-1.25) mg/dL Glucose (74-99) mg/dL POC Glucose (mg/dL) 172 H 151 H (70-110) mg/dL Calcium (8.4-10.2) mg/dL Assessment and Plan (1) Chronic ulcer of left leg Current Visit: Yes Status: Acute Code(s): L97.929 - NON-PRS CHRONIC ULC UNSP PRT OF L LOW LEG W UNSP SEVERITY SNOMED Code(s): 59921024 Plan: 1patient with a chronic nonhealing wound to the left lower extremity both on the medial and lateral aspect did have minimal slough tissue however there is no significant surrounding swelling or redness patient not running any fever did have a normal white 2patient with the abnormal kidney function high risk of nephrotoxicity from the Bactrim DS which has been discontinued. 3 we will continue local wound care with Santyl followed by moist dressing change daily . 4-patient local cultures came back positive for group G strep 5- patient currently covered with oral Keflex which will be continued for about a week on discharge and close outpatient follow-up Time with Patient: Less than 30
[2022-03-19] MEDS: ATORVASTATIN 80 MG TAB PO SCH (09:16)
[2022-03-19] MEDS: FLUoxetine HCL 20 MG CAP PO SCH (09:16)
[2022-03-19] MEDS: CEPHALEXIN 500 MG CAP PO SCH ×2 (09:16→20:48)
[2022-03-19] MEDS: allopurinoL 100 MG TAB PO SCH (09:17)
[2022-03-19] MEDS: SODIUM BICARBONATE TAB 650 MG TAB PO SCH (09:17)
[2022-03-19] MEDS: METOPROLOL SUCCINATE (ER) 50 MG TAB.ER.24H PO SCH (09:17)
[2022-03-19] MEDS: ISOSORBIDE MONONITRATE ER 30 MG TAB.ER.24H PO SCH (09:17)
[2022-03-19] MEDS: LACTULOSE 20 GM/30 ML CUP PO PRN (09:17)
[2022-03-19] MEDS: COLLAGENASE 250 UNIT/GM OINTMENT 30 GM TUBE TOPICAL SCH (11:00)
[2022-03-19 11:36] LABS: Glucose,Whole Blood 198 mg/dL (70-110)
--- NOTE | 2022-03-19 12:07 | P.PN ---
Subjective Patient is seen in follow-up for acute kidney injury on chronic kidney disease. Renal function better. Creatinine 2.28 yesterday. Nonoliguric. No active bleeding. Hemoglobin stable at 8.7. Lasix and Bactrim discontinued 03/11/2022. Resting in bed. No active complaints. Rivera catheter was DC'd however patient continued to have urine retention and therefore it was reinserted. No complaints today. Objective - Vital Signs Vital signs: Vital Signs Temp 97.5 F L 03/19/22 08:00 Pulse 71 03/19/22 08:00 Resp 16 03/19/22 08:00 BP 119/76 03/19/22 08:00 Pulse Ox 93 L 03/19/22 09:55 FiO2 Intake & Output 03/18/22 03/19/22 03/19/22 18:59 06:59 18:59 Output Total 500 300 Balance -500 -300 Output: Urine 500 300 Other: Voiding Method Indwelling Catheter Indwelling Catheter - Exam Vital signs are stable. General: Awake. No acute distress. HEENT: Head exam is unremarkable. On nasal cannula. LUNGS: Breath sounds decreased. HEART: Rate and Rhythm are regular. ABDOMEN: Soft, no distention. EXTREMITITES: Trace edema. Left lower extremity wrapped. No drainage. - Labs CBC & Chem 7: 03/16/22 05:48 03/18/22 10:53 Labs: Abnormal Lab Results - Last 24 Hours (Table) 03/18/22 03/18/22 03/19/22 Range/Units 15:59 20:50 06:00 POC Glucose (mg/dL) 150 H 172 H 151 H (70-110) mg/dL 03/19/22 Range/Units 11:34 POC Glucose (mg/dL) 198 H (70-110) mg/dL Assessment and Plan Assessment: 1. Acute kidney injury secondary to ATN and further worsened with the use of Bactrim. Creatinine peaked at 3.9 this admission -2.8 on 03/16/2022. UA fairly benign. No hydronephrosis noted on kidney ultrasound. 2. Chronic kidney disease stage IV with baseline creatinine in the range of 2.5-3. 3. Left lower extremity cellulitis status post Bactrim. ID following. 4. Anemia of chronic kidney disease. Iron deficiency noted. Stool for occult blood positive. Hemoglobin stable. Eliquis stopped. EGD showed superficial duodenal ulcerations, duodenitis, gastritis with erosions and distal esophagitis. No significant abnormalities noted on colonoscopy. 5. Volume overload. Status post IV Lasix this admission. Better. 6. Hypokalemia from diuresis. Magnesium normal. Replaced. Better. Plan: Continue with Rivera catheter Continue with oral sodium bicarb. Continue with Flomax Follow-up as outpatient in 1-2 weeks.
--- NOTE | 2022-03-19 13:13 | P.PN ---
Subjective Progress Note Date: 03/19/22 CHIEF COMPLAINT: GI bleed HISTORY OF PRESENT ILLNESS: Surgical service following regards to GI bleed. Balwinder patino is status post EGD and colonoscopy results showed multiple superficial duodenal ulcerations, duodenitis, gastritis with erosions, distal esophagitis and normal colon. Patient's had no further black or bloody stools. He denies abdominal pain. Currently tolerating a regular diet. Patient did have a bowel movement. Patient scheduled for discharge to [facility] today. Last hemoglobin stable at 8.7. Patient seen and examined with Dr. Monte PHYSICAL EXAM: VITAL SIGNS: Reviewed. GENERAL: Well-developed in no acute distress ABDOMEN: Soft. mildly disteneded. Nontender. NEUROLOGIC: Alert and oriented. Cranial nerves II through XII grossly intact. ASSESSMENT: 1. Acute GI bleed with black stool 2. Anemia 3. History of DVT leg on Eliquis 4. Acute on chronic kidney disease PLAN: -Patient can be discharged from surgical standpoint when medically cleared -Continue regular diet -Continue PPI -Continue to hold anticoagulation Physician Equestrian Trainer note has been reviewed by physician. Signing provider agrees with the documented findings, assessment, and plan of care. Objective - Vital Signs Vital signs: Vital Signs Temp 97.5 F L 03/19/22 08:00 Pulse 71 03/19/22 08:00 Resp 16 03/19/22 08:00 BP 119/76 03/19/22 08:00 Pulse Ox 93 L 03/19/22 09:55 FiO2 Intake & Output 03/18/22 03/19/22 03/19/22 18:59 06:59 18:59 Output Total 500 300 Balance -500 -300 Output: Urine 500 300 Other: Voiding Method Indwelling Catheter Indwelling Catheter - Labs CBC & Chem 7: 03/16/22 05:48 03/18/22 10:53 Labs: Abnormal Lab Results - Last 24 Hours (Table) 03/18/22 03/18/22 03/19/22 Range/Units 15:59 20:50 06:00 POC Glucose (mg/dL) 150 H 172 H 151 H (70-110) mg/dL 03/19/22 Range/Units 11:34 POC Glucose (mg/dL) 198 H (70-110) mg/dL
[2022-03-19 16:53] LABS: Glucose,Whole Blood 181 mg/dL (70-110)
--- NOTE | 2022-03-19 18:00 | P.PN ---
Progress Note - Text Progress Note Date: 03/19/22 This is a pleasant 66-year-old patient, follows with Dr. Mike Escobar. Chronic stable medical conditions include CAD with stent, diabetes, hypertension, hyperlipidemia anxiety. CAD, hyperuricemia, left leg DVT in October 2021, CHF EF 20 -25% hospital from November 14 through November 21/2022 with leg wounds. seen by ID and vascular. Wound culture - stenotrophomonas maltophilia. Patient does follow the wound care center. Patient now presents with multiple symptoms. Hurting all over. Short of lynette ath. Decreased appetite. Hasn't really eaten for 5 days. Feeling weak. Normally has bowel movements about twice a week. Finding it difficult to walk. He had called 911 as he could not get up to tolerate. Denies any fever and chills. He lists his sister who cannot take care of him anymore. 03/12/2022: Sitting up in a recliner. Eating. Appears comfortable. Case management is looking into placement. Oral intake about 25%. Also has a a acute kidney injury secondary to ATN from Bactrim. IV fluids. Lasix being held. 03/13/2022: Patient was seen this morning. Decreased appetite. Seen by vascular. Right arm swelling appears to be from cellulitis. Has been on Keflex. Right arm elevated. Negative for DVT. 03/14/2022: Patient yesterday had a large dark stool. 2 episodes. Moved to the ICU. ReceivedK-centra. No drop in hemoglobin. Today started on clear liquids. No further bleed. Doppler ultrasound lower extremity ordered. We'll have vascular follow with the results. 03/15/2022: Patient seen this morning. Resting in bed. Give endoscopy today. Nothing by mouth. Taking his bowel preparation. Had some dark stool overnight. 03/16/2022: Patient Doppler ultrasound negative for lower extremity DVT. Has no need for anticoagulation. No need for IVC filter. EKG showed vertical superficial duodenal ulcers, duodenitis, gastritis and distal esophagitis. Continue PPI. Colonoscopy was unremarkable. Discussed with patient. Will discharge to [facility] in the [place]. Discussed with ID. Keflex 500 mg every 12 for 10 days Discharge was held as is informed no beds available at the [facility] 03/17/2022: Sitting up in a chair. Oral intake better. Pending DC to [facility]. 03/18/2022: Oral intake fair. Comfortable. Pending DC to ECF. 03/19/2022:. Oral intake good. On oral antibiotic. Pending DC to ECF. Pending authorization. Discussed with patient and corrections caseworker. Active Medications Acetaminophen (Acetaminophen Tab 325 Mg Tab) 650 mg PO Q6HR PRN PRN Reason: Mild Pain or Fever > 100.5 Acetaminophen/Codeine Phosphate (Acetaminophen-Codeine 300-30mg Tab) 1 each PO Q4HR PRN PRN Reason: Moderate to Severe Pain (4-10) Last Admin: 03/19/22 06:20 Dose: 1 each Allopurinol (Allopurinol 100 Mg Tab) 100 mg PO DAILY [facility] Last Admin: 03/19/22 09:17 Dose: 100 mg Alprazolam (Alprazolam 0.25 Mg Tab) 0.25 mg PO BID PRN PRN Reason: Anxiety Atorvastatin Calcium (Atorvastatin 80 Mg Tab) 80 mg PO DAILY [facility] Last Admin: 03/19/22 09:16 Dose: 80 mg Calcium Carbonate/Glycine (Calcium Carbonate 500 Mg Chewable) 1,000 mg PO Q4HR PRN PRN Reason: Dyspepsia Cephalexin (Cephalexin 500 Mg Cap) 500 mg PO BID [facility]; Protocol Last Admin: 03/19/22 09:16 Dose: 500 mg Collagenase (Collagenase 250 Unit/Gm Ointment 30 Gm Tube) 1 applic TOPICAL DAILY [facility]; Protocol Last Admin: 03/19/22 11:00 Dose: 1 applic Dextrose/Water (Dextrose 50% Syringe 50 Ml) 25 ml IVP PER PROTOCOL PRN; Protocol PRN Reason: Hypoglycemia Dextrose/Water (Dextrose 50% Syringe 50 Ml) 50 ml IVP PER PROTOCOL PRN; Protocol PRN Reason: Hypoglycemia Fluoxetine HCl (Fluoxetine Hcl 20 Mg Cap) 20 mg PO DAILY [facility] Last Admin: 03/19/22 09:16 Dose: 20 mg Insulin Aspart (Insulin Aspart (Novolog) 100 Unit/Ml Vial) 0 unit SQ ACHS [facility]; Protocol Last Admin: 03/19/22 17:48 Dose: 2 unit Isosorbide Mononitrate (Isosorbide Mononitrate Er 30 Mg Tab.Er.24h) 30 mg PO DAILY [facility] Last Admin: 03/19/22 09:17 Dose: 30 mg Lactulose (Lactulose 20 Gm/30 Ml Cup) 20 gm PO DAILY PRN PRN Reason: Constipation Last Admin: 03/19/22 09:17 Dose: 20 gm Metoprolol Succinate (Metoprolol Succinate (Er) 50 Mg Tab.Er.24h) 50 mg PO DAILY [facility] Last Admin: 03/19/22 09:17 Dose: 50 mg Midodrine (Midodrine 5 Mg Tab) 5 mg PO AC-TID [facility] Last Admin: 03/19/22 17:44 Dose: Not Given Nitroglycerin (Nitroglycerin Sl Tabs 0.4 Mg Tab) 0.4 mg SUBLINGUAL Q5M PRN PRN Reason: Chest Pain Pantoprazole Sodium (Pantoprazole 40 Mg Tablet) 40 mg PO AC-BRKFST [facility] Last Admin: 03/19/22 06:20 Dose: 40 mg Sodium Bicarbonate (Sodium Bicarbonate Tab 650 Mg Tab) 650 mg PO DAILY [facility] Last Admin: 03/19/22 09:17 Dose: 650 mg Tamsulosin HCl (Tamsulosin 0.4 Mg Cap.Er.24h) 0.4 mg PO HS [facility] Last Admin: 03/18/22 20:01 Dose: 0.4 mg Past medical history to include: CAD with stent, diabetes, hypertension, hyperlipidemia, skin cancer on the nose in August 2020, anxiety, left leg common femoral DVT October 2021, hyperuricemia, hepatic steatosis, CHF EF 20-25%. 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 Alcohol rarely. Living with his sister Family history: Diabetes, CAD Physical examination: VITAL SIGNS: 98.6, 16, 19, 1 31 x 67, 98% room air GENERAL: Sitting up in chair, comfortable EYES: Pupils equal. Conjunctiva normal. HEENT: External appearance of nose and ears normal, oral cavity grossly normal. NECK: JVD possibly raised; masses not palpable. HEART: First and second heart sounds are normal; some edema. LUNGS: Respiratory rate increased; decreased breath sound . ABDOMEN: Soft, nontender, liver spleen not palpable, no masses palpable. PSYCH: [Alert and oriented x3; mood and affect slightly anxious LYMPHATICS: No lymph node palpable neck and axilla Musculoskeletal: Evidence of OA. Some swelling of the right upper extremity- distal to the elbow, some tenderness and redness DERMATOLOGICAL: Dressing on the left leg on wounds INVESTIGATIONS, reviewed in the clinical context: 03/18/2022: Creatinine 2.28 EGD: Duodenitis, superficial.no ulcers, gastritis, esophageal as Colonoscopy: Unremarkable 03/16/2022: WBC 6.2 hemoglobin 8.7 platelets 23 potassium 4 creatinine 2.8 03/13/2022: Hemoglobin 9.3 platelets 179 potassium 3.7 creatinine 3.9 March 12: WBC 8.0 hemoglobin 8.6 platelets 162 potassium 3.5 creatinine 3.6 WBC 9 hemoglobin 9.4 platelets 158 INR 1.5 sodium 135 potassium 4.1. 92 creatinine 2.75 COVID 19/influenza type A/influenza type B: Not detected EKG tracing personally reviewed by me-sinus rhythm, right by her plan block, PVCs Chest x-ray film personally reviewed by me-cardiomegaly. No infiltrates Previous studies: 2-D echocardiogram: EF 20-25%. Left lower extremity venous Doppler: DVT in the common femoral vein. Gallbladder ultrasound: Gallbladder filled with stones. Possible hepatic steatosis. Arterial Doppler results discussed with Dr. Mike: No evidence of vascular compromise Assessment and plan: -Acute kidney injury from ATN.: improvement Follow with nephrology. Lasix held. Bactrim was discontinued. IV fluids. Creatinine improved from 3.9 down to 2.28 -Acute GI bleed in a patient being on eliquis. On March 13. ReceivedK- centra. From underlying esophagitis, gastritis, duodenitis Eliquis discontinued. Aspirin discontinued. -Esophagitis, gastritis, duodenitis, secondary to aspirin eliquis. Bowel discontinued PPI -Acute on chronic medical debility. Multifactorial. 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 -chronic congestive heart failure from ischemic cardiomyopathy EF 20-25%. Toprol-XL. Aldactone held - chronic multiple wounds painful left lower extremity left calf and left ankle likely from venous ulcers from recent DVT. Follow with wound care team/Dr. saleem, ID - DVT of the left common femoral vein, in 10/16/2021. Doppler ultrasound of this admission negative for DVT. eliquis stopped . -Acute cellulitis right upper arm distally. Keflex. Seen by vascular -Choledocholithiasis. Asymptomatic -CAD with a history of stent Aspirin may be resumed down the road currently held because of GI bleed, Lopressor -Diabetes mellitus type 2, chronically on insulin Follow Accu-Cheks and sliding scale insulin. 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 Pending DC to ECF. Discussed with corrections caseworker and patient.
[2022-03-19 20:44] LABS: Glucose,Whole Blood 198 mg/dL (70-110)
[2022-03-19] MEDS: TAMSULOSIN 0.4 MG CAP.ER.24H PO SCH (20:48)
[2022-03-20] MEDS: Acetaminophen-Codeine 300-30mg TAB PO PRN (04:23)
[2022-03-20] MEDS: MIDODRINE 5 MG TAB PO SCH ×3 (06:20→18:50)
[2022-03-20] MEDS: PANTOPRAZOLE 40 MG TABLET PO SCH (06:20)
[2022-03-20] MEDS: INSULIN ASPART (NovoLOG) 100 UNIT/ML VIAL SQ SCH ×4 (06:22→21:15)
[2022-03-20 06:24] LABS: Glucose,Whole Blood 123 mg/dL (70-110)
[2022-03-20 06:50] LABS: African American GFR (CKD) 38 (>60 ml/min/1.73 sqM); Anion Gap 8 mmol/L; Blood Urea Nitrogen 48 mg/dL (9-20); Calcium 8.1 mg/dL (8.4-10.2); Carbon Dioxide 26 mmol/L (22-30); Chloride 101 mmol/L (98-107); Glucose 111 mg/dL (74-99); Non-African American GFR(CKD) 33 (>60 ml/min/1.73 sqM); Potassium 4.1 mmol/L (3.5-5.1); Sodium 135 mmol/L (137-145)
[2022-03-20] MEDS: CEPHALEXIN 500 MG CAP PO SCH ×2 (09:12→21:17)
[2022-03-20] MEDS: ATORVASTATIN 80 MG TAB PO SCH (09:13)
[2022-03-20] MEDS: allopurinoL 100 MG TAB PO SCH (09:13)
[2022-03-20] MEDS: ISOSORBIDE MONONITRATE ER 30 MG TAB.ER.24H PO SCH (09:13)
[2022-03-20] MEDS: SODIUM BICARBONATE TAB 650 MG TAB PO SCH (09:13)
[2022-03-20] MEDS: FLUoxetine HCL 20 MG CAP PO SCH (09:13)
[2022-03-20] MEDS: METOPROLOL SUCCINATE (ER) 50 MG TAB.ER.24H PO SCH (11:36)
--- NOTE | 2022-03-20 11:41 | P.PN ---
Subjective Patient is seen in follow-up for acute kidney injury on chronic kidney disease. Renal function better. Creatinine 2.28 yesterday. Nonoliguric. No active bleeding. Hemoglobin stable at 8.7. Lasix and Bactrim discontinued 03/11/2022. Resting in bed. No active complaints. Rivera catheter was DC'd however patient continued to have urine retention and therefore it was reinserted. No complaints today. Objective - Vital Signs Vital signs: Vital Signs Temp 98.2 F 03/20/22 08:00 Pulse 46 L 03/20/22 08:00 Resp 17 03/20/22 08:00 BP 128/80 03/20/22 08:00 Pulse Ox 96 03/20/22 09:03 FiO2 Intake & Output 03/19/22 03/20/22 03/20/22 18:59 06:59 18:59 Intake Total 1080 500 Output Total 2 600 Balance 1078 -100 Weight 94.2 kg Intake: Oral 1080 500 Output: Urine 600 Stool 2 Other: Voiding Method Indwelling Catheter Toilet Urinal # Voids 2 # Bowel Movements 1 - Exam Vital signs are stable. General: Awake. No acute distress. HEENT: Head exam is unremarkable. On nasal cannula. LUNGS: Breath sounds decreased. HEART: Rate and Rhythm are regular. ABDOMEN: Soft, no distention. EXTREMITITES: Trace edema. Left lower extremity wrapped. No drainage. - Labs CBC & Chem 7: 03/16/22 05:48 03/20/22 06:09 Labs: Abnormal Lab Results - Last 24 Hours (Table) 03/19/22 03/19/22 03/20/22 Range/Units 16:51 20:43 06:09 Sodium 135 L (137-145) mmol/L BUN 48 H (9-20) mg/dL Creatinine 2.01 H (0.66-1.25) mg/dL Glucose 111 H (74-99) mg/dL POC Glucose (mg/dL) 181 H 198 H (70-110) mg/dL Calcium 8.1 L (8.4-10.2) mg/dL 03/20/22 Range/Units 06:22 Sodium (137-145) mmol/L BUN (9-20) mg/dL Creatinine (0.66-1.25) mg/dL Glucose (74-99) mg/dL POC Glucose (mg/dL) 123 H (70-110) mg/dL Calcium (8.4-10.2) mg/dL Assessment and Plan Assessment: 1. Acute kidney injury secondary to ATN and further worsened with the use of Bactrim. Creatinine peaked at 3.9 this admission -2.0 on 03/20/2022. UA fairly benign. No hydronephrosis noted on kidney ultrasound. 2. Chronic kidney disease stage IV with baseline creatinine in the range of 2.5-3. 3. Left lower extremity cellulitis status post Bactrim. ID following. 4. Anemia of chronic kidney disease. Iron deficiency noted. Stool for occult blood positive. Hemoglobin stable. Eliquis stopped. EGD showed superficial duodenal ulcerations, duodenitis, gastritis with erosions and distal esophagitis. No significant abnormalities noted on colonoscopy. 5. Volume overload. Status post IV Lasix this admission. Better. 6. Hypokalemia from diuresis. Magnesium normal. Replaced. Better. Plan: Continue with Rivera catheter Continue with oral sodium bicarb. Continue with Flomax Follow-up as outpatient in 1-2 weeks.
[2022-03-20 11:57] LABS: Glucose,Whole Blood 148 mg/dL (70-110)
--- NOTE | 2022-03-20 12:23 | P.PN ---
Subjective Progress Note Date: 03/20/22 CHIEF COMPLAINT: GI bleed HISTORY OF PRESENT ILLNESS: Surgical service following in regards to GI bleed. Patient is status post EGD and colonoscopy results showed multiple superficial duodenal ulcerations, duodenitis, gastritis with erosions, distal esophagitis and normal colon. Patient's had no further black or bloody stools. He denies abdominal pain. Currently tolerating a regular diet. Patient did have a bowel movement. Patient is awaiting possible ECF placement. Last hemoglobin stable at 8.7. Patient seen and examined with Dr. Monte PHYSICAL EXAM: VITAL SIGNS: Reviewed. GENERAL: Well-developed in no acute distress ABDOMEN: Soft. mildly disteneded. Nontender. NEUROLOGIC: Alert and oriented. Cranial nerves II through XII grossly intact. ASSESSMENT: 1. Acute GI bleed with black stool 2. Anemia 3. History of DVT leg on Eliquis 4. Acute on chronic kidney disease PLAN: -Patient can be discharged from surgical standpoint when medically cleared -Continue regular diet -Continue PPI -Continue to hold anticoagulation Physician Moving Picture Operator note has been reviewed by physician. Signing provider agrees with the documented findings, assessment, and plan of care. Objective - Vital Signs Vital signs: Vital Signs Temp 98.2 F 03/20/22 08:00 Pulse 46 L 03/20/22 08:00 Resp 17 03/20/22 08:00 BP 128/80 03/20/22 08:00 Pulse Ox 96 03/20/22 09:03 FiO2 Intake & Output 03/19/22 03/20/22 03/20/22 18:59 06:59 18:59 Intake Total 1080 500 Output Total 2 600 Balance 1078 -100 Weight 94.2 kg Intake: Oral 1080 500 Output: Urine 600 Stool 2 Other: Voiding Method Indwelling Catheter Toilet Urinal # Voids 2 # Bowel Movements 1 - Labs CBC & Chem 7: 03/16/22 05:48 03/20/22 06:09 Labs: Abnormal Lab Results - Last 24 Hours (Table) 03/19/22 03/19/22 03/20/22 Range/Units 16:51 20:43 06:09 Sodium 135 L (137-145) mmol/L BUN 48 H (9-20) mg/dL Creatinine 2.01 H (0.66-1.25) mg/dL Glucose 111 H (74-99) mg/dL POC Glucose (mg/dL) 181 H 198 H (70-110) mg/dL Calcium 8.1 L (8.4-10.2) mg/dL 03/20/22 03/20/22 Range/Units 06:22 11:56 Sodium (137-145) mmol/L BUN (9-20) mg/dL Creatinine (0.66-1.25) mg/dL Glucose (74-99) mg/dL POC Glucose (mg/dL) 123 H 148 H (70-110) mg/dL Calcium (8.4-10.2) mg/dL
[2022-03-20] MEDS: COLLAGENASE 250 UNIT/GM OINTMENT 30 GM TUBE TOPICAL SCH (14:34)
[2022-03-20 16:34] LABS: Glucose,Whole Blood 206 mg/dL (70-110)
[2022-03-20 21:11] LABS: Glucose,Whole Blood 149 mg/dL (70-110)
[2022-03-20] MEDS: TAMSULOSIN 0.4 MG CAP.ER.24H PO SCH (21:17)
[2022-03-21] MEDS: Acetaminophen-Codeine 300-30mg TAB PO PRN ×2 (01:42→11:16)
--- NOTE | 2022-03-21 05:18 | P.PN ---
Subjective Progress Note Date: 03/20/22 This is a pleasant 66-year-old patient, follows with Dr. Mike Escobar. Chronic stable medical conditions include CAD with stent, diabetes, hypertension, hyperlipidemia anxiety. CAD, hyperuricemia, left leg DVT in October 2021, CHF EF 20 -25% hospital from November 14 through November 21/2022 with leg wounds. seen by ID and vascular. Wound culture - stenotrophomonas maltophilia. Patient does follow the wound care center. Patient now presents with multiple symptoms. Hurting all over. Short of breath. Decreased appetite. Hasn't really eaten for 5 days. Feeling weak. Normally has bowel movements about twice a week. Finding it difficult to walk. He had called 911 as he could not get up to tolerate. Denies any fever and chills. He lists his sister who cannot take care of him anymore. 03/12/2022: Sitting up in a recliner. Eating. Appears comfortable. Case management is looking into placement. Oral intake about 25%. Also has a a acute kidney injury secondary to ATN from Bactrim. IV fluids. Lasix being held. 03/13/2022: Patient was seen this morning. Decreased appetite. Seen by bela bailey. Right arm swelling appears to be from cellulitis. Has been on Keflex. Right arm elevated. Negative for DVT. 03/14/2022: Patient yesterday had a large dark stool. 2 episodes. Moved to the ICU. ReceivedK-centra. No drop in hemoglobin. Today started on clear liquids. No further bleed. Doppler ultrasound lower extremity ordered. We'll have vascular follow with the results. 03/15/2022: Patient seen this morning. Resting in bed. Give endoscopy today. Nothing by mouth. Taking his bowel preparation. Had some dark stool overnight. 03/16/2022: Patient Doppler ultrasound negative for lower extremity DVT. Has no need for anticoagulation. No need for IVC filter. EKG showed vertical superficial duodenal ulcers, duodenitis, gastritis and distal esophagitis. Continue PPI. Colonoscopy was unremarkable. Discussed with patient. Will discharge to [facility] in the [place]. Discussed with ID. Keflex 500 mg every 12 for 10 days Discharge was held as is informed no beds available at the [facility] 03/17/2022: Sitting up in a chair. Oral intake better. Pending DC to ECF. 03/18/2022: Oral intake fair. Comfortable. Pending DC to ECF. 03/19/2022:. Oral intake good. On oral antibiotic. Pending DC to ECF. Pending authorization. Discussed with patient and spring encaser. 03/20/2022 Patient is seen in follow-up this morning has been working with physical therapy although continues with significant weakness. Patient not back to baseline and does not feel safe returning home able to care for himself along with wound care management. Peer to peer insurance was requested and denied as patient was able to walk 50 feet with modified independence. Continue with local wound care and abx per ID recommendations. Will follow up on repeat labs. Case management has submitted fast appeal. Patient is continuously weak and feels unable to care for himself at home in his current situation and would benefit from ECF. PT to follow and continue to work with the patient. Patient is afebrile and denies chest pain or shortness of breath. Patient reports some shortness of breath with exertion. No nausea or vomiting noted. Physical examination: GENERAL: Sitting up in bed, comfortable EYES: Pupils equal. Conjunctiva normal. HEENT: External appearance of nose and ears normal, oral cavity grossly normal. NECK: JVD not raised; masses not palpable. HEART: First and second heart sounds are normal; some edema. LUNGS: Respiratory rate increased; decreased breath sound . ABDOMEN: Soft, nontender, no masses palpable. PSYCH: Alert and oriented x3; mood and affect slightly anxious LYMPHATICS: No lymph node palpable neck and axilla Musculoskeletal: Evidence of OA. Some swelling of the right upper extremity- distal to the elbow, some tenderness and redness DERMATOLOGICAL: Dressing on the left leg on wounds Assessment and plan: -Acute kidney injury from ATN.: improvement -Acute GI bleed in a patient being on eliquis. On March 13. Received K- centra. From underlying esophagitis, gastritis, duodenitis -Esophagitis, gastritis, duodenitis, secondary to aspirin eliquis. -Acute on chronic medical debility. Multifactorial. -chronic congestive heart failure from ischemic cardiomyopathy EF 20-25%. - chronic multiple wounds painful left lower extremity left calf and left ankle likely from venous ulcers from recent DVT. - DVT of the left common femoral vein, in 10/16/2021. Doppler ultrasound of this admission negative for DVT. -Acute cellulitis right upper arm distally. -Choledocholithiasis. 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 ID following and continuing on oral abx on discharge. To continue with local wound care PT/OT following along with case management. Peer to peer denied and working on fast appeal for ecf. Encouraged oral intake and activity as tolerated The impression and plan of care has been dictated by Munira Alvarez, Nurse Practitioner as directed. Dr. Mary MD I have performed a history and examination and MDM of this patient, discussed the same with the dictator, and agree with the dictator's assessment and plan as written ,documented as a scribe. Based on total visit time, I have performed more than 50% of the visit. Objective - Vital Signs Vital signs: Vital Signs Temp 98.2 F 03/20/22 08:00 Pulse 46 L 03/20/22 08:00 Resp 17 03/20/22 08:00 BP 128/80 03/20/22 08:00 Pulse Ox 96 03/20/22 09:03 FiO2 Intake & Output 03/19/22 03/20/22 03/20/22 18:59 06:59 18:59 Intake Total 1080 500 Output Total 2 600 Balance 1078 -100 Weight 94.2 kg Intake: Oral 1080 500 Output: Urine 600 Stool 2 Other: Voiding Method Indwelling Catheter Toilet Urinal # Voids 2 # Bowel Movements 1 - Labs CBC & Chem 7: 03/16/22 05:48 03/20/22 06:09 Labs: Abnormal Lab Results - Last 24 Hours (Table) 03/19/22 03/19/22 03/19/22 Range/Units 11:34 16:51 20:43 Sodium (137-145) mmol/L BUN (9-20) mg/dL Creatinine (0.66-1.25) mg/dL Glucose (74-99) mg/dL POC Glucose (mg/dL) 198 H 181 H 198 H (70-110) mg/dL Calcium (8.4-10.2) mg/dL 11/15/22 11/15/22 Range/Units 06:09 06:22 Sodium 135 L (137-145) mmol/L BUN 48 H (9-20) mg/dL Creatinine 2.01 H (0.66-1.25) mg/dL Glucose 111 H (74-99) mg/dL POC Glucose (mg/dL) 123 H (70-110) mg/dL Calcium 8.1 L (8.4-10.2) mg/dL
[2022-03-21 05:57] LABS: Glucose,Whole Blood 147 mg/dL (70-110)
[2022-03-21] MEDS: INSULIN ASPART (NovoLOG) 100 UNIT/ML VIAL SQ SCH ×4 (06:23→21:46)
[2022-03-21] MEDS: PANTOPRAZOLE 40 MG TABLET PO SCH (06:37)
[2022-03-21] MEDS: MIDODRINE 5 MG TAB PO SCH ×3 (06:39→17:16)
[2022-03-21] MEDS: SODIUM BICARBONATE TAB 650 MG TAB PO SCH (08:33)
[2022-03-21] MEDS: METOPROLOL SUCCINATE (ER) 25 MG TAB.ER.24H PO SCH (08:33)
[2022-03-21] MEDS: ATORVASTATIN 80 MG TAB PO SCH (08:33)
[2022-03-21] MEDS: ISOSORBIDE MONONITRATE ER 30 MG TAB.ER.24H PO SCH (08:33)
[2022-03-21] MEDS: CEPHALEXIN 500 MG CAP PO SCH ×2 (08:33→21:46)
[2022-03-21] MEDS: allopurinoL 100 MG TAB PO SCH (08:33)
[2022-03-21] MEDS: FLUoxetine HCL 20 MG CAP PO SCH (08:33)
[2022-03-21] MEDS: COLLAGENASE 250 UNIT/GM OINTMENT 30 GM TUBE TOPICAL SCH (11:17)
--- NOTE | 2022-03-21 11:24 | P.PN ---
Subjective Progress Note Date: 03/21/22 CHIEF COMPLAINT: GI bleed HISTORY OF PRESENT ILLNESS: Surgical service following in regards to GI bleed. Patient is status post EGD and colonoscopy results showed multiple superficial duodenal ulcerations, duodenitis, gastritis with erosions, distal esophagitis and normal colon. Patient denies any abdominal pain. He's having regular bowel movements. No blood reported in the stools. Afebrile. Awaiting insurance authorization for ECF placement. Patient seen and examined with Dr. Monte PE: Vital SIGNS: Reviewed. GENERAL: Well-developed in no acute distress ABDOMEN: Soft. mildly disteneded. Nontender. NEUROLOGIC: Alert and oriented. Cranial nerves II through XII grossly intact. ASSESSMENT: 1. Acute GI bleed with black stool 2. Anemia 3. History of DVT leg on Eliquis 4. Acute on chronic kidney disease PLAN: -Patient can be discharged from surgical standpoint when medically cleared -Continue regular diet -Continue PPI -Continue to hold anticoagulation Physician Household Appliance Repairer note has been reviewed by physician. Signing provider agrees with the documented findings, assessment, and plan of care. Objective - Vital Signs Vital signs: Vital Signs Temp 97.3 F L 03/21/22 06:36 Pulse 71 03/21/22 08:00 Resp 16 03/21/22 08:00 BP 119/72 03/21/22 06:36 Pulse Ox 96 03/21/22 06:36 FiO2 Intake & Output 03/20/22 03/21/22 03/21/22 18:59 06:59 18:59 Output Total 300 2 Balance -300 -2 Output: Urine 300 Stool 2 Other: Voiding Method Toilet Toilet Urinal Urinal # Voids 4 # Bowel Movements 1 - Labs CBC & Chem 7: 03/16/22 05:48 03/20/22 06:09 Labs: Abnormal Lab Results - Last 24 Hours (Table) 03/20/22 03/20/22 03/20/22 Range/Units 11:56 16:33 21:09 POC Glucose (mg/dL) 148 H 206 H 149 H (70-110) mg/dL 03/21/22 Range/Units 05:45 POC Glucose (mg/dL) 147 H (70-110) mg/dL
[2022-03-21 11:37] LABS: Glucose,Whole Blood 176 mg/dL (70-110)
[2022-03-21 11:59] LABS: African American GFR (CKD) 39.3 (60.0-200.0); Anion Gap 9.7 mmol/L (10.00-18.00); BUN/Creat Ratio 20.76 Ratio (12.00-20.00); Blood Urea Nitrogen 40.9 mg/dL (9.0-27.0); Calcium 8.8 mg/dL (8.7-10.3); Carbon Dioxide 26.7 mmol/L (20.0-27.5); Non-African American GFR(CKD) 33.9 (60.0-200.0); Potassium 4.6 mmol/L (3.5-5.5)
[2022-03-21 16:52] LABS: Glucose,Whole Blood 166 mg/dL (70-110)
--- NOTE | 2022-03-21 17:59 | P.PN ---
Subjective Patient is seen in follow-up for acute kidney injury on chronic kidney disease. Renal function better. Creatinine 2.28 yesterday. Nonoliguric. No active bleeding. Hemoglobin stable at 8.7. Lasix and Bactrim discontinued 03/11/2022. Resting in bed. No active complaints. Rivera catheter was DC'd however patient continued to have urine retention and therefore it was reinserted. No complaints today. Awaiting placement. Objective - Vital Signs Vital signs: Vital Signs Temp 97.4 F L 03/21/22 14:00 Pulse 77 03/21/22 14:00 Resp 18 03/21/22 14:00 BP 108/66 03/21/22 14:00 Pulse Ox 97 03/21/22 14:00 FiO2 Intake & Output 03/20/22 03/21/22 03/21/22 18:59 06:59 18:59 Output Total 300 2 Balance -300 -2 Output: Urine 300 Stool 2 Other: Voiding Method Toilet Toilet Urinal Urinal # Voids 4 # Bowel Movements 1 - Exam Vital signs are stable. General: Awake. No acute distress. HEENT: Head exam is unremarkable. On nasal cannula. LUNGS: Breath sounds decreased. HEART: Rate and Rhythm are regular. ABDOMEN: Soft, no distention. EXTREMITITES: Trace edema. Left lower extremity wrapped. No drainage. - Labs CBC & Chem 7: 03/16/22 05:48 03/21/22 06:14 Labs: Abnormal Lab Results - Last 24 Hours (Table) 03/20/22 03/21/22 03/21/22 Range/Units 21:09 05:45 06:14 Anion Gap 9.70 L (10.00-18.00) mmol/L BUN 40.9 H (9.0-27.0) mg/dL Creatinine 2.0 H (0.6-1.5) mg/dL Est GFR (CKD-EPI)AfAm 39.3 L (60.0-200.0) Est GFR (CKD-EPI)NonAf 33.9 L (60.0-200.0) BUN/Creatinine Ratio 20.76 H (12.00-20.00) Ratio Glucose 129 H (70-110) mg/dL POC Glucose (mg/dL) 149 H 147 H (70-110) mg/dL 03/21/22 03/21/22 Range/Units 11:35 16:49 Anion Gap (10.00-18.00) mmol/L BUN (9.0-27.0) mg/dL Creatinine (0.6-1.5) mg/dL Est GFR (CKD-EPI)AfAm (60.0-200.0) Est GFR (CKD-EPI)NonAf (60.0-200.0) BUN/Creatinine Ratio (12.00-20.00) Ratio Glucose (70-110) mg/dL POC Glucose (mg/dL) 176 H 166 H (70-110) mg/dL Assessment and Plan Assessment: 1. Acute kidney injury secondary to ATN and further worsened with the use of Bactrim. Creatinine peaked at 3.9 this admission -2.0 on 03/20/2022. UA fairly benign. No hydronephrosis noted on kidney ultrasound. 2. Chronic kidney disease stage IV with baseline creatinine in the range of 2.5-3. 3. Left lower extremity cellulitis status post Bactrim. ID following. 4. Anemia of chronic kidney disease. Iron deficiency noted. Stool for occult blood positive. Hemoglobin stable. Eliquis stopped. EGD showed superficial duodenal ulcerations, duodenitis, gastritis with erosions and distal esophagitis. No significant abnormalities noted on colonoscopy. 5. Volume overload. Status post IV Lasix this admission. Better. 6. Hypokalemia from diuresis. Magnesium normal. Replaced. Better. Plan: Continue with Rivera catheter Continue with oral sodium bicarb. Continue with Flomax Follow-up as outpatient in 1-2 weeks.
[2022-03-21 21:45] LABS: Glucose,Whole Blood 158 mg/dL (70-110)
[2022-03-21] MEDS: TAMSULOSIN 0.4 MG CAP.ER.24H PO SCH (21:46)
[2022-03-22] MEDS: Acetaminophen-Codeine 300-30mg TAB PO PRN ×2 (02:30→11:29)
--- NOTE | 2022-03-22 05:40 | P.PN ---
Subjective Progress Note Date: 03/21/22 This is a pleasant 66-year-old patient, follows with Dr. Mike Escobar. Chronic stable medical conditions include CAD with stent, diabetes, hypertension, hyperlipidemia anxiety. CAD, hyperuricemia, left leg DVT in October 2021, CHF EF 20 -25% hospital from November 14 through November 21/2022 with leg wounds. seen by ID and vascular. Wound culture - stenotrophomonas maltophilia. Patient does follow the wound care center. Patient now presents with multiple symptoms. Hurting all over. Short of breath. Decreased appetite. Hasn't really eaten for 5 days. Feeling weak. Normally has bowel movements about twice a week. Finding it difficult to walk. He had called 911 as he could not get up to tolerate. Denies any fever and chills. He lists his sister who cannot take care of him anymore. 03/12/2022: Sitting up in a recliner. Eating. Appears comfortable. Case management is looking into placement. Oral intake about 25%. Also has a a acute kidney injury secondary to ATN from Bactrim. IV fluids. Lasix being held. 03/13/2022: Patient was seen this morning. Decreased appetite. Seen by bela bailey. Right arm swelling appears to be from cellulitis. Has been on Keflex. Right arm elevated. Negative for DVT. 03/14/2022: Patient yesterday had a large dark stool. 2 episodes. Moved to the ICU. ReceivedK-centra. No drop in hemoglobin. Today started on clear liquids. No further bleed. Doppler ultrasound lower extremity ordered. We'll have vascular follow with the results. 03/15/2022: Patient seen this morning. Resting in bed. Give endoscopy today. Nothing by mouth. Taking his bowel preparation. Had some dark stool overnight. 03/16/2022: Patient Doppler ultrasound negative for lower extremity DVT. Has no need for anticoagulation. No need for IVC filter. EKG showed vertical superficial duodenal ulcers, duodenitis, gastritis and distal esophagitis. Continue PPI. Colonoscopy was unremarkable. Discussed with patient. Will discharge to [facility] in the [place]. Discussed with ID. Keflex 500 mg every 12 for 10 days Discharge was held as is informed no beds available at the [facility] 03/17/2022: Sitting up in a chair. Oral intake better. Pending DC to ECF. 03/18/2022: Oral intake fair. Comfortable. Pending DC to ECF. 03/19/2022:. Oral intake good. On oral antibiotic. Pending DC to ECF. Pending authorization. Discussed with patient and outpatient case manager. 03/20/2022 Patient is seen in follow-up this morning has been working with physical therapy although continues with significant weakness. Patient not back to baseline and does not feel safe returning home able to care for himself along with wound care management. Peer to peer insurance was requested and denied as patient was able to walk 50 feet with modified independence. Continue with local wound care and abx per ID recommendations. Will follow up on repeat labs. Case management has submitted fast appeal. Patient is continuously weak and feels unable to care for himself at home in his current situation and would benefit from ECF. PT to follow and continue to work with the patient. Patient is afebrile and denies chest pain or shortness of breath. Patient reports some shortness of breath with exertion. No nausea or vomiting noted. 03/21/2022 Patient is seen this morning and follow-up and asleep but easily arousable. Patient continues with weakness and will have PT/OT daily and currently awaiting appeal of the insurance denial for ecf. Patient is unable to care for himself and lives alone. Patient is anxious about having to go home and feels overwhelmed. Case management following and working on appeal. Patient is afebrile and denies chest pain or shortness of breath. Review of systems: Constitutional: No reports of fatigue, fever, or chills Cardiovascular: No reports of chest pain or palpitations Respiratory: No reports of shortness of breath or cough GI: No reports of nausea, vomiting, or diarrhea : No reports of dysuria or retention Neurovascular: No reports of weakness or numbness All medications have been reviewed Physical examination: GENERAL: Sitting up in bed, comfortable EYES: Pupils equal. Conjunctiva normal. HEENT: External appearance of nose and ears normal, oral cavity grossly normal. NECK: JVD not raised; masses not palpable. HEART: First and second heart sounds are normal; some edema. LUNGS: Respiratory rate increased; decreased breath sound . ABDOMEN: Soft, nontender, no masses palpable. PSYCH: Alert and oriented x3; mood and affect slightly anxious LYMPHATICS: No lymph node palpable neck and axilla Musculoskeletal: Evidence of OA. Some swelling of the right upper extremity- distal to the elbow, some tenderness and redness DERMATOLOGICAL: Dressing on the left leg on wounds Assessment: -Acute kidney injury from ATN.: improvement -Acute GI bleed in a patient being on eliquis. On March 13. Received K- centra. From underlying esophagitis, gastritis, duodenitis -Esophagitis, gastritis, duodenitis, secondary to aspirin eliquis. -Acute on chronic medical debility. Multifactorial. -chronic congestive heart failure from ischemic cardiomyopathy EF 20-25%. - chronic multiple wounds painful left lower extremity left calf and left ankle likely from venous ulcers from recent DVT. - DVT of the left common femoral vein, in 10/16/2021. Doppler ultrasound of this admission negative for DVT. -Acute cellulitis right upper arm distally. -Choledocholithiasis. 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 ID following and continuing on oral abx on discharge. To continue with local wound care PT/OT following along with case management. fast appeal for ecf with insurance is being reviewed. Needs updated notes. Encouraged oral intake and activity as tolerated The impression and plan of care has been dictated by Munira Alvarez, Nurse Practitioner as directed. Dr. Mary MD I have performed a history and examination and MDM of this patient, discussed the same with the dictator, and agree with the dictator's assessment and plan as written ,documented as a scribe. Based on total visit time, I have performed more than 50% of the visit. Objective - Vital Signs Vital signs: Vital Signs Temp 97.3 F L 03/21/22 06:36 Pulse 71 03/21/22 06:36 Resp 16 03/21/22 06:36 BP 119/72 03/21/22 06:36 Pulse Ox 96 03/21/22 06:36 FiO2 Intake & Output 03/20/22 03/21/22 03/21/22 18:59 06:59 18:59 Output Total 300 Balance -300 Output: Urine 300 Other: Voiding Method Toilet Urinal # Voids 4 # Bowel Movements 1 - Labs CBC & Chem 7: 03/16/22 05:48 03/21/22 06:14 Labs: Abnormal Lab Results - Last 24 Hours (Table) 03/20/22 03/20/22 03/20/22 Range/Units 11:56 16:33 21:09 POC Glucose (mg/dL) 148 H 206 H 149 H (70-110) mg/dL 03/21/22 Range/Units 05:45 POC Glucose (mg/dL) 147 H (70-110) mg/dL
[2022-03-22 05:42] LABS: Glucose,Whole Blood 124 mg/dL (70-110)
[2022-03-22] MEDS: ALPRAZolam 0.25 MG TAB PO PRN ×2 (06:03→17:35)
[2022-03-22] MEDS: INSULIN ASPART (NovoLOG) 100 UNIT/ML VIAL SQ SCH ×4 (06:36→20:28)
[2022-03-22] MEDS: PANTOPRAZOLE 40 MG TABLET PO SCH (06:43)
[2022-03-22] MEDS: MIDODRINE 5 MG TAB PO SCH (06:43)
[2022-03-22] MEDS: CEPHALEXIN 500 MG CAP PO SCH ×2 (10:44→20:29)
[2022-03-22] MEDS: FLUoxetine HCL 20 MG CAP PO SCH (10:45)
[2022-03-22] MEDS: SODIUM BICARBONATE TAB 650 MG TAB PO SCH (10:45)
[2022-03-22] MEDS: METOPROLOL SUCCINATE (ER) 25 MG TAB.ER.24H PO SCH (10:45)
[2022-03-22] MEDS: ISOSORBIDE MONONITRATE ER 30 MG TAB.ER.24H PO SCH (10:46)
[2022-03-22] MEDS: allopurinoL 100 MG TAB PO SCH (10:46)
--- NOTE | 2022-03-22 10:49 | P.PN ---
Subjective Patient is seen in follow-up for acute kidney injury on chronic kidney disease. Renal function better. Creatinine 2.0 Nonoliguric. No active bleeding. Hemoglobin stable at 8.7. Lasix and Bactrim discontinued 03/11/2022. Resting in bed. No active complaints. Rivera catheter was DC'd however patient continued to have urine retention and therefore it was reinserted. No complaints today. Awaiting placement. Objective - Vital Signs Vital signs: Vital Signs Temp 98.0 F 03/22/22 06:41 Pulse 72 03/22/22 06:41 Resp 16 03/22/22 06:41 BP 107/65 03/22/22 06:41 Pulse Ox 98 03/22/22 07:51 FiO2 Intake & Output 03/21/22 03/22/22 03/22/22 18:59 06:59 18:59 Output Total 1202 Balance -1202 Output: Urine 1200 Stool 2 Other: Voiding Method Toilet Toilet Urinal Urinal # Voids 2 # Bowel Movements 1 - Exam Vital signs are stable. General: Awake. No acute distress. HEENT: Head exam is unremarkable. On nasal cannula. LUNGS: Breath sounds decreased. HEART: Rate and Rhythm are regular. ABDOMEN: Soft, no distention. EXTREMITITES: Trace edema. Left lower extremity wrapped. No drainage. - Labs CBC & Chem 7: 03/16/22 05:48 03/21/22 06:14 Labs: Abnormal Lab Results - Last 24 Hours (Table) 03/21/22 03/21/22 03/21/22 Range/Units 06:14 11:35 16:49 Anion Gap 9.70 L (10.00-18.00) mmol/L BUN 40.9 H (9.0-27.0) mg/dL Creatinine 2.0 H (0.6-1.5) mg/dL Est GFR (CKD-EPI)AfAm 39.3 L (60.0-200.0) Est GFR (CKD-EPI)NonAf 33.9 L (60.0-200.0) BUN/Creatinine Ratio 20.76 H (12.00-20.00) Ratio Glucose 129 H (70-110) mg/dL POC Glucose (mg/dL) 176 H 166 H (70-110) mg/dL 03/21/22 03/22/22 Range/Units 21:43 05:39 Anion Gap (10.00-18.00) mmol/L BUN (9.0-27.0) mg/dL Creatinine (0.6-1.5) mg/dL Est GFR (CKD-EPI)AfAm (60.0-200.0) Est GFR (CKD-EPI)NonAf (60.0-200.0) BUN/Creatinine Ratio (12.00-20.00) Ratio Glucose (70-110) mg/dL POC Glucose (mg/dL) 158 H 124 H (70-110) mg/dL Assessment and Plan Assessment: 1. Acute kidney injury secondary to ATN and further worsened with the use of Bactrim. Creatinine peaked at 3.9 this admission -2.0 on 03/20/2022. UA fairly benign. No hydronephrosis noted on kidney ultrasound. 2. Chronic kidney disease stage IV with baseline creatinine in the range of 2.5-3. 3. Left lower extremity cellulitis status post Bactrim. ID following. 4. Anemia of chronic kidney disease. Iron deficiency noted. Stool for occult blood positive. Hemoglobin stable. Eliquis stopped. EGD showed superficial duodenal ulcerations, duodenitis, gastritis with erosions and distal esophagitis. No significant abnormalities noted on colonoscopy. 5. Volume overload. Status post IV Lasix this admission. Better. 6. Hypokalemia from diuresis. Magnesium normal. Replaced. Better. Plan: Continue with Rivera catheter Decrease dose of sodium bicarb Try to DC midodrine Continue with Flomax Follow-up as outpatient in 1-2 weeks.
[2022-03-22] MEDS: ATORVASTATIN 80 MG TAB PO SCH (10:56)
[2022-03-22] MEDS: COLLAGENASE 250 UNIT/GM OINTMENT 30 GM TUBE TOPICAL SCH (10:56)
[2022-03-22 11:48] LABS: Glucose,Whole Blood 195 mg/dL (70-110)
--- NOTE | 2022-03-22 15:41 | P.PN ---
Subjective Progress Note Date: 03/22/22 CHIEF COMPLAINT: GI bleed HISTORY OF PRESENT ILLNESS: Surgical service following in regards to GI bleed. Patient is status post EGD and colonoscopy results showed multiple superficial duodenal ulcerations, duodenitis, gastritis with erosions, distal esophagitis and normal colon. Patient denies any abdominal pain. He's having regular bowel movements. No blood reported in the stools. Afebrile. Awaiting insurance authorization for ECF placement. Patient seen and examined with Dr. Monte PE: Vital SIGNS: Reviewed. GENERAL: Well-developed in no acute distress ABDOMEN: Soft. mildly disteneded. Nontender. NEUROLOGIC: Alert and oriented. Cranial nerves II through XII grossly intact. ASSESSMENT: 1. Acute GI bleed with black stool 2. Anemia 3. History of DVT leg on Eliquis 4. Acute on chronic kidney disease PLAN: -Patient can be discharged from surgical standpoint when medically cleared -Continue regular diet -Continue PPI -Continue to hold anticoagulation Physician Power Barker Operator note has been reviewed by physician. Signing provider agrees with the documented findings, assessment, and plan of care. Objective - Vital Signs Vital signs: Vital Signs Temp 96.7 F L 03/22/22 14:00 Pulse 64 03/22/22 14:00 Resp 17 03/22/22 14:00 BP 121/74 03/22/22 14:00 Pulse Ox 97 03/22/22 14:00 FiO2 Intake & Output 03/21/22 03/22/22 03/22/22 18:59 06:59 18:59 Output Total 1202 Balance -1202 Weight 94.2 kg Output: Urine 1200 Stool 2 Other: Voiding Method Toilet Toilet Urinal Urinal # Voids 2 # Bowel Movements 1 - Labs CBC & Chem 7: 03/16/22 05:48 03/21/22 06:14 Labs: Abnormal Lab Results - Last 24 Hours (Table) 03/21/22 03/21/22 03/22/22 Range/Units 16:49 21:43 05:39 POC Glucose (mg/dL) 166 H 158 H 124 H (70-110) mg/dL 03/22/22 Range/Units 11:47 POC Glucose (mg/dL) 195 H (70-110) mg/dL
[2022-03-22 16:27] LABS: Glucose,Whole Blood 225 mg/dL (70-110)
[2022-03-22 20:28] LABS: Glucose,Whole Blood 156 mg/dL (70-110)
[2022-03-22] MEDS: TAMSULOSIN 0.4 MG CAP.ER.24H PO SCH (20:29)
[2022-03-23] MEDS: Acetaminophen-Codeine 300-30mg TAB PO PRN ×2 (06:10→09:56)
[2022-03-23 06:22] LABS: Glucose,Whole Blood 143 mg/dL (70-110)
--- NOTE | 2022-03-23 06:32 | P.PN ---
Subjective Progress Note Date: 03/22/22 This is a pleasant 66-year-old patient, follows with Dr. Mike Escobar. Chronic stable medical conditions include CAD with stent, diabetes, hypertension, hyperlipidemia anxiety. CAD, hyperuricemia, left leg DVT in October 2021, CHF EF 20 -25% hospital from November 14 through November 21/2022 with leg wounds. seen by ID and vascular. Wound culture - stenotrophomonas maltophilia. Patient does follow the wound care center. Patient now presents with multiple symptoms. Hurting all over. Short of breath. Decreased appetite. Hasn't really eaten for 5 days. Feeling weak. Normally has bowel movements about twice a week. Finding it difficult to walk. He had called 911 as he could not get up to tolerate. Denies any fever and chills. He lists his sister who cannot take care of him anymore. 03/12/2022: Sitting up in a recliner. Eating. Appears comfortable. Case management is looking into placement. Oral intake about 25%. Also has a a acute kidney injury secondary to ATN from Bactrim. IV fluids. Lasix being held. 03/13/2022: Patient was seen this morning. Decreased appetite. Seen by bela bailey. Right arm swelling appears to be from cellulitis. Has been on Keflex. Right arm elevated. Negative for DVT. 03/14/2022: Patient yesterday had a large dark stool. 2 episodes. Moved to the ICU. ReceivedK-centra. No drop in hemoglobin. Today started on clear liquids. No further bleed. Doppler ultrasound lower extremity ordered. We'll have vascular follow with the results. 03/15/2022: Patient seen this morning. Resting in bed. Give endoscopy today. Nothing by mouth. Taking his bowel preparation. Had some dark stool overnight. 03/16/2022: Patient Doppler ultrasound negative for lower extremity DVT. Has no need for anticoagulation. No need for IVC filter. EKG showed vertical superficial duodenal ulcers, duodenitis, gastritis and distal esophagitis. Continue PPI. Colonoscopy was unremarkable. Discussed with patient. Will discharge to [facility] in the [place]. Discussed with ID. Keflex 500 mg every 12 for 10 days Discharge was held as is informed no beds available at the [facility] 03/17/2022: Sitting up in a chair. Oral intake better. Pending DC to ECF. 03/18/2022: Oral intake fair. Comfortable. Pending DC to ECF. 03/19/2022:. Oral intake good. On oral antibiotic. Pending DC to ECF. Pending authorization. Discussed with patient and case finishing machine adjuster. 03/20/2022 Patient is seen in follow-up this morning has been working with physical therapy although continues with significant weakness. Patient not back to baseline and does not feel safe returning home able to care for himself along with wound care management. Peer to peer insurance was requested and denied as patient was able to walk 50 feet with modified independence. Continue with local wound care and abx per ID recommendations. Will follow up on repeat labs. Case management has submitted fast appeal. Patient is continuously weak and feels unable to care for himself at home in his current situation and would benefit from ECF. PT to follow and continue to work with the patient. Patient is afebrile and denies chest pain or shortness of breath. Patient reports some shortness of breath with exertion. No nausea or vomiting noted. 03/21/2022 Patient is seen this morning and follow-up and asleep but easily arousable. Patient continues with weakness and will have PT/OT daily and currently awaiting appeal of the insurance denial for ecf. Patient is unable to care for himself and lives alone. Patient is anxious about having to go home and feels overwhelmed. Case management following and working on appeal. Patient is afebrile and denies chest pain or shortness of breath. 03/22/2022 Patient is seen today and is awake and alert. Working with PT/OT. Patient reports to feeling weak and feels he would not manage well at home and awaiting appeal results for possible ECF. No new updates today and will follow up with case management about the appeal process. Patient is afebrile and denies chest pain or shortness of breath. Patient denies nausea or vomiting, but does report decreased appetite. Patient did eat breakfast. Review of systems: Constitutional: No reports of fatigue, fever, or chills Cardiovascular: No reports of chest pain or palpitations Respiratory: No reports of shortness of breath or cough GI: No reports of nausea, vomiting, or diarrhea : No reports of dysuria or retention Neurovascular: reports of generalized weakness All medications have been reviewed Physical examination: GENERAL: Sitting up in bed, comfortable EYES: Pupils equal. Conjunctiva normal. HEENT: External appearance of nose and ears normal, oral cavity grossly normal. NECK: JVD not raised; masses not palpable. HEART: First and second heart sounds are normal; some edema. LUNGS: Respiratory rate increased; decreased breath sound . ABDOMEN: Soft, nontender, no masses palpable. PSYCH: Alert and oriented x3; mood and affect slightly anxious LYMPHATICS: No lymph node palpable neck and axilla Musculoskeletal: Evidence of OA. Some swelling of the right upper extremity- distal to the elbow, some tenderness and redness DERMATOLOGICAL: Dressing on the left leg on wounds Assessment: -Acute kidney injury from ATN.: improved -Acute GI bleed in a patient being on eliquis. On March 13. Received K- centra. From underlying esophagitis, gastritis, duodenitis -Esophagitis, gastritis, duodenitis, secondary to aspirin eliquis. -Acute on chronic medical debility. Multifactorial. -chronic congestive heart failure from ischemic cardiomyopathy EF 20-25%. - chronic multiple wounds painful left lower extremity left calf and left ankle likely from venous ulcers from recent DVT. - DVT of the left common femoral vein, in 10/16/2021. Doppler ultrasound of this admission negative for DVT. -Acute cellulitis right upper arm distally. -Choledocholithiasis. Asymptomatic -CAD with a history of stent -Diabetes mellitus type 2, chronically on insulin -Hyperlipidemia -Essential hypertension -Chronic kidney disease stage III from diabetic nephropathy and hypertensive ne phrosclerosis -Anxiety not otherwise specified -Hyperuricemia -no code Plan: Recommend to continue with current medications. ID following and continuing on oral abx on discharge. To continue with local wound care PT/OT following along with case management. fast appeal for ecf with insurance is being reviewed. Needs updated notes. Encouraged oral intake and activity as tolerated Possible discharge in 24-48 hours. The impression and plan of care has been dictated by Munira Alvarez, Nurse Practitioner as directed. Dr. Mary MD I have performed a history and examination and MDM of this patient, discussed the same with the dictator, and agree with the dictator's assessment and plan as written ,documented as a scribe. Based on total visit time, I have performed more than 50% of the visit. Objective - Vital Signs Vital signs: Vital Signs Temp 98.0 F 03/22/22 06:41 Pulse 72 03/22/22 06:41 Resp 16 03/22/22 06:41 BP 107/65 03/22/22 06:41 Pulse Ox 98 03/22/22 07:51 FiO2 Intake & Output 03/21/22 03/22/22 03/22/22 18:59 06:59 18:59 Output Total 1202 Balance -1202 Output: Urine 1200 Stool 2 Other: Voiding Method Toilet Toilet Urinal Urinal # Voids 2 # Bowel Movements 1 - Labs CBC & Chem 7: 03/16/22 05:48 03/21/22 06:14 Labs: Abnormal Lab Results - Last 24 Hours (Table) 03/21/22 03/21/22 03/21/22 Range/Units 06:14 11:35 16:49 Anion Gap 9.70 L (10.00-18.00) mmol/L BUN 40.9 H (9.0-27.0) mg/dL Creatinine 2.0 H (0.6-1.5) mg/dL Est GFR (CKD-EPI)AfAm 39.3 L (60.0-200.0) Est GFR (CKD-EPI)NonAf 33.9 L (60.0-200.0) BUN/Creatinine Ratio 20.76 H (12.00-20.00) Ratio Glucose 129 H (70-110) mg/dL POC Glucose (mg/dL) 176 H 166 H (70-110) mg/dL 03/21/22 03/22/22 Range/Units 21:43 05:39 Anion Gap (10.00-18.00) mmol/L BUN (9.0-27.0) mg/dL Creatinine (0.6-1.5) mg/dL Est GFR (CKD-EPI)AfAm (60.0-200.0) Est GFR (CKD-EPI)NonAf (60.0-200.0) BUN/Creatinine Ratio (12.00-20.00) Ratio Glucose (70-110) mg/dL POC Glucose (mg/dL) 158 H 124 H (70-110) mg/dL
[2022-03-23] MEDS: INSULIN ASPART (NovoLOG) 100 UNIT/ML VIAL SQ SCH ×2 (06:41→11:39)
[2022-03-23] MEDS: PANTOPRAZOLE 40 MG TABLET PO SCH (06:44)
[2022-03-23 08:05] VITALS: RESP 16
[2022-03-23 08:19] VITALS: BP 112/74; PULSE 63; TEMP 97.5
[2022-03-23] MEDS ORDERED: SODIUM BICARBONATE TAB 650 MG TAB PO SCH (09:00)
[2022-03-23] MEDS: CEPHALEXIN 500 MG CAP PO SCH (09:56)
[2022-03-23] MEDS: FLUoxetine HCL 20 MG CAP PO SCH (09:58)
[2022-03-23] MEDS: ISOSORBIDE MONONITRATE ER 30 MG TAB.ER.24H PO SCH (09:59)
[2022-03-23] MEDS: ATORVASTATIN 80 MG TAB PO SCH (09:59)
[2022-03-23] MEDS: METOPROLOL SUCCINATE (ER) 25 MG TAB.ER.24H PO SCH (09:59)
[2022-03-23] MEDS: allopurinoL 100 MG TAB PO SCH (09:59)
[2022-03-23] MEDS: COLLAGENASE 250 UNIT/GM OINTMENT 30 GM TUBE TOPICAL SCH (10:02)
--- NOTE | 2022-03-23 10:59 | P.DS ---
Providers Date of admission: 03/12/22 09:43 Expected date of discharge: 03/23/22 Attending physician: Derick Johnson Consults: 03/11/22 00:41 Consult Physician Urgent Consulting Provider: Alysa Landry Consult Reason/Comments: Chronic renal failure Do you want consulting provider notified?: Yes, Notify in am 03/11/22 16:41 Consult Physician Routine Consulting Provider: Cassidy Naik Consult Reason/Comments: left lower extremity cellulitis/wounds Do you want consulting provider notified?: Yes 03/12/22 16:58 Consult Physician Routine Consulting Provider: Moody Gay Consult Reason/Comments: Patient retaining urine with lucero catheter in place Do you want consulting provider notified?: Yes 03/13/22 14:57 Consult Physician Urgent Consulting Provider: Khai Da Silva Consult Reason/Comments: GI bleed? Do you want consulting provider notified?: Yes 03/13/22 15:36 Consult Physician Urgent Consulting Provider: Elly Aguilar Consult Reason/Comments: ICU management Do you want consulting provider notified?: Already Contacted Primary care physician: Mike Escobar Hospital Course: Final diagnosis -Acute kidney injury from ATN.: improved -Acute GI bleed in a patient being on eliquis. On March 13. Received K- centra. From underlying esophagitis, gastritis, duodenitis -Esophagitis, gastritis, duodenitis, secondary to aspirin eliquis. -Acute on chronic medical debility. Multifactorial. -chronic congestive heart failure from ischemic cardiomyopathy EF 20-25%. - chronic multiple wounds painful left lower extremity left calf and left ankle likely from venous ulcers from recent DVT. - DVT of the left common femoral vein, in 10/16/2021. Doppler ultrasound of this admission negative for DVT. -Acute cellulitis right upper arm distally. -Choledocholithiasis. Asymptomatic -CAD with a history of stent -Diabetes mellitus type 2, chronically on insulin -Hyperlipidemia -Essential hypertension -Chronic kidney disease stage III from diabetic nephropathy and hypertensive nephrosclerosis -Anxiety not otherwise specified -Hyperuricemia -no code Discharge disposition Patient is being discharged in a stable condition with guarded prognosis to [facility]. Patient will follow-up with Dr. Jernigan in the outpatient setting upon discharge. Patient is to continue with close outpatient follow-up with nephrology in the next 1-2 weeks. Patient is also to continue on Keflex twice daily for the next one week to complete the course. Patient needs follow- up at the wound center and recommend continue with local wound care. Recommend repeat labs of B MP in 2-3 days. Total time taken is greater than 35 minutes. Hospital course This is a 66-year-old male who was recently admitted with significant weakness, increased pain and wounds that appear chronic although being followed closely outpatient with some concerns for further infection. Patient had also come in for some questionable concerns for possible GI bleed and underwent EGD and colonoscopy with general surgery and recommend to continue holding anticoagulant for now as patient was taking it with a recent past medical history of DVT of the left leg. Vascular had also been evaluating the patient. Patient will follow-up outpatient with consultations. ID following patient was maintained on IV antibiotics and will be transitioned to oral antibiotics on discharge and close outpatient follow-up at the wound center. Patient will be continued on local wound care the left lower extremity by applying Santyl, saline moistened gauze, dry gauze and rolled gauze and secured with tape after cleansing with normal saline daily and if becoming soiled. Patient also with a diabetes history recommend Accu-Cheks before meals and at bedtime and continue with sliding scale as needed. Patient to continue with and was being closely monitored. Medications have been adjusted due to kidney functions and patient will need close outpatient follow-up with nephrology in 1- 2 weeks. Recommend repeat labs of BMP in the next 2-3 days to monitor electrolytes and kidney functions. Patient was initially denied ECF by insurance although fast appeal done and approved and will be going to [facility] on [address] [employer] today. Currently no reports of chest pain, shortness of breath, or palpitations. Patient is afebrile. No reports of nausea or vomiting and patient is tolerating diet. Patient will be going to [facility] on the [employer] today. Guarded prognosis. Physical exam: Gen: This is a 66-year-old male awake, alert and oriented 3, well-developed, well-nourished HEENT: Head is atraumatic, normocephalic. Pupils equal, round. Sclerae is anicteric. NECK: Supple. No JVD. No lymphadenopathy. No thyromegaly. LUNGS: Clear to auscultation. No wheezes or rhonchi. No intercostal retra ctions. HEART: Regular rate and rhythm. No murmur. ABDOMEN: Soft. Bowel sounds are present. No masses. No tenderness. EXTREMITIES: No pedal edema. No calf tenderness. Chronic wounds of the left lo wer extremity and right upper extremity noted NEUROLOGICAL: Patient is awake, alert and oriented x3. Cranial nerves 2 through 12 are grossly intact. Diffusely weak Please refer to medication reconciliation sheet for a list of medications. The impression and plan of care has been dictated by Munira Alvarez, Nurse Practitioner as directed. Dr. Mary MD I have performed a history and examination and MDM of this patient, discussed the same with the dictator, and agree with the dictator's assessment and plan as written ,documented as a scribe. Based on total visit time, I have performed more than 50% of the visit. Patient Condition at Discharge: Fair Plan - Discharge Summary Discharge Rx Participant: No New Discharge Prescriptions: New Omeprazole [PriLOSEC] 40 mg PO AC-BRKFST #90 cap Acetaminophen-Codeine 300-30mg [Tylenol w/codeine #3] 1 each PO Q4HR PRN #18 tab PRN Reason: Moderate To Severe Pain Lactulose [Cephulac] 20 gm PO DAILY PRN ml PRN Reason: Constipation Cephalexin [Keflex] 500 mg PO BID #14 cap INSULIN ASPART (NovoLOG) [NovoLOG (formulary)] 0 unit SQ ACHS each Sodium Bicarbonate Tab 325 mg PO DAILY tab Continue Tamsulosin [Flomax] 0.4 mg PO HS #30 cap FLUoxetine HCL [PROzac] 20 mg PO DAILY cap allopurinoL [Zyloprim] 100 mg PO DAILY tab Metoprolol Succinate (ER) [Toprol XL] 50 mg PO DAILY Collagenase [Santyl Ointment] 1 applic TOPICAL DAILY Acetaminophen Tab [Tylenol] 650 mg PO Q6H PRN PRN Reason: Pain Or Fever > 100.5 Nitroglycerin Sl Tabs [Nitrostat] 0.4 mg SL Q5M PRN #30 tab PRN Reason: Chest Pain Isosorbide Mononitrate ER [Imdur] 30 mg PO DAILY #30 tab Atorvastatin [Lipitor] 80 mg PO DAILY #30 tab Ferrous Sulfate [Iron (65 MG Elemental)] 325 mg PO DAILY ALPRAZolam [Xanax] 0.25 mg PO BID PRN #6 tab PRN Reason: Anxiety Discontinued Furosemide [Lasix] 60 mg PO BID@0900,1600 #60 tab Sodium Bicarbonate Tab 650 mg PO BID #60 tab Apixaban [Eliquis] 5 mg PO BID #60 tab Aspirin 81 mg PO DAILY #90 tab Sulfamethox-Tmp 800-160Mg [Bactrim DS 800-160 mg] 1 tab PO Q12HR Discharge Medication List Acetaminophen Tab [Tylenol] 650 mg PO Q6H PRN 08/22/21 [History] Nitroglycerin Sl Tabs [Nitrostat] 0.4 mg SL Q5M PRN #30 tab 12/06/21 [Rx] Tamsulosin [Flomax] 0.4 mg PO HS #30 cap 12/06/21 [Rx] Atorvastatin [Lipitor] 80 mg PO DAILY #30 tab 12/15/21 [Rx] FLUoxetine HCL [PROzac] 20 mg PO DAILY cap 12/15/21 [Rx] Isosorbide Mononitrate ER [Imdur] 30 mg PO DAILY #30 tab 12/15/21 [Rx] allopurinoL [Zyloprim] 100 mg PO DAILY tab 12/15/21 [Rx] Metoprolol Succinate (ER) [Toprol XL] 50 mg PO DAILY 01/16/22 [History] Collagenase [Santyl Ointment] 1 applic TOPICAL DAILY 02/07/22 [History] Ferrous Sulfate [Iron (65 MG Elemental)] 325 mg PO DAILY 02/07/22 [History] Omeprazole [PriLOSEC] 40 mg PO AC-BRKFST #90 cap 03/15/22 [Rx] ALPRAZolam [Xanax] 0.25 mg PO BID PRN #6 tab 03/16/22 [Rx] Acetaminophen-Codeine 300-30mg [Tylenol w/codeine #3] 1 each PO Q4HR PRN #18 tab 03/16/22 [Rx] Cephalexin [Keflex] 500 mg PO BID #14 cap 03/19/22 [Rx] Lactulose [Cephulac] 20 gm PO DAILY PRN ml 03/19/22 [Rx] INSULIN ASPART (NovoLOG) [NovoLOG (formulary)] 0 unit SQ ACHS each 03/23/22 [Rx] Sodium Bicarbonate Tab 325 mg PO DAILY tab 03/23/22 [Rx] Follow up Appointment(s)/Referral(s): Keith Mike DO [STAFF PHYSICIAN] - 4 Weeks Mike Escobar MD [Primary Care Provider] - 1-2 days [facility] [NON-STAFF] - 03/21/22 2:30 pm Roc Gonsalves DO [STAFF PHYSICIAN] - 10 Days Patient Instructions/Handouts: Fall Prevention for Older Adults (DC), Chronic Wounds (DC) Activity/Diet/Wound Care/Special Instructions: Patient is going to [facility] on the [employer] Activity as tolerated Recommend to continue with consistent carb heart healthy diet Recommend Accu-Cheks before meals and at bedtime and sliding scale NovoLog sliding scale 0-150 equals 0 units 151-200 equals 2 units 201-250 equals 4 units 251-300 equals 6 units 301-350 equals 8 units 351-400 equals 10 units Please notify provider if blood sugar is 400 or above Recommend follow-up with primary care provider on discharge Follow-up with nephrology in 1-2 weeks Recommend repeat BMP to monitor kidney functions and electrolytes in the next 2- 3 days Continue with antibiotics with Keflex twice daily for the next 1 week wound care fluid restrict 1800 cc/day continue holding Lasix for now Discharge Disposition: TRANSFER TO SNF/ECF
[2022-03-23 11:32] LABS: Glucose,Whole Blood 176 mg/dL (70-110)
--- NOTE | 2022-03-23 11:36 | P.PN ---
Subjective Patient is seen in follow-up for acute kidney injury on chronic kidney disease. Renal function better. Creatinine 2.0 Nonoliguric. No active bleeding. Hemoglobin stable at 8.7. Lasix and Bactrim discontinued 03/11/2022. Resting in bed. No active complaints. Rivera catheter was DC'd however patient continued to have urine retention and therefore it was reinserted. No complaints today. Awaiting placement. Objective - Vital Signs Vital signs: Vital Signs Temp 97.5 F L 03/23/22 08:18 Pulse 63 03/23/22 08:18 Resp 16 03/23/22 08:18 BP 112/74 03/23/22 08:18 Pulse Ox 94 L 03/23/22 08:18 FiO2 Intake & Output 03/22/22 03/23/22 03/23/22 18:59 06:59 18:59 Weight 94.2 kg Other: Voiding Method Toilet Urinal # Voids 1 3 - Exam Vital signs are stable. General: Awake. No acute distress. HEENT: Head exam is unremarkable. On nasal cannula. LUNGS: Breath sounds decreased. HEART: Rate and Rhythm are regular. ABDOMEN: Soft, no distention. EXTREMITITES: Trace edema. Left lower extremity wrapped. No drainage. - Labs CBC & Chem 7: 03/16/22 05:48 03/21/22 06:14 Labs: Abnormal Lab Results - Last 24 Hours (Table) 03/22/22 03/22/22 03/22/22 Range/Units 11:47 16:25 20:26 POC Glucose (mg/dL) 195 H 225 H 156 H (70-110) mg/dL 03/23/22 03/23/22 Range/Units 06:20 11:31 POC Glucose (mg/dL) 143 H 176 H (70-110) mg/dL Assessment and Plan Assessment: 1. Acute kidney injury secondary to ATN and further worsened with the use of Bactrim. Creatinine peaked at 3.9 this admission -2.0 on 03/20/2022. UA fairly benign. No hydronephrosis noted on kidney ultrasound. 2. Chronic kidney disease stage IV with baseline creatinine in the range of 2 .5-3. 3. Left lower extremity cellulitis status post Bactrim. ID following. 4. Anemia of chronic kidney disease. Iron deficiency noted. Stool for occult blood positive. Hemoglobin stable. Eliquis stopped. EGD showed superficial duodenal ulcerations, duodenitis, gastritis with erosions and distal esophagitis. No significant abnormalities noted on colonoscopy. 5. Volume overload. Status post IV Lasix this admission. Better. 6. Hypokalemia from diuresis. Magnesium normal. Replaced. Better. Plan: Continue with Rivera catheter Decreased dose of sodium bicarb Continue with Flomax Follow-up as outpatient in 1-2 weeks.
--- NOTE | 2022-03-23 13:12 | P.PN ---
Subjective Progress Note Date: 03/23/22 CHIEF COMPLAINT: GI bleed HISTORY OF PRESENT ILLNESS: Surgical service following in regards to GI bleed. Patient is status post EGD and colonoscopy results showed multiple superficial duodenal ulcerations, duodenitis, gastritis with erosions, distal esophagitis and normal colon. Patient denies any abdominal pain. He's having regular brown bowel movements. Afebrile. Patient did receive insurance authorization for rehab at [facility]. Patient seen and examined with Dr. Monte PE: Vital SIGNS: Reviewed. GENERAL: Well-developed in no acute distress ABDOMEN: Soft. mildly disteneded. Nontender. NEUROLOGIC: Alert and oriented. Cranial nerves II through XII grossly intact. ASSESSMENT: 1. Acute GI bleed with black stool 2. Anemia 3. History of DVT leg on Eliquis 4. Acute on chronic kidney disease PLAN: -Patient can be discharged from surgical standpoint when medically cleared -Continue regular diet -Continue PPI -Continue to hold anticoagulation -Surgical service will sign off. Please call with any questions or concerns Physician Lead Game Designer note has been reviewed by physician. Signing provider agrees with the documented findings, assessment, and plan of care. I have personally seen and examined the patient, reviewed the [employer] /PAs history, exam and MDM and agree with the assessment and plan as written. Based on total visit time, I have performed more than 50% of the visit. As above: Patient's bowel activity has been non-bloody in appearance. Tolerating diet. No further surgical intervention planned. Continue antiacid therapy. We'll sign off. Objective - Vital Signs Vital signs: Vital Signs Temp 97.5 F L 03/23/22 08:18 Pulse 63 03/23/22 08:18 Resp 16 03/23/22 08:18 BP 112/74 03/23/22 08:18 Pulse Ox 94 L 03/23/22 08:18 FiO2 Intake & Output 03/22/22 03/23/22 03/23/22 18:59 06:59 18:59 Weight 94.2 kg Other: Voiding Method Toilet Urinal # Voids 1 3 - Labs CBC & Chem 7: 03/16/22 05:48 03/21/22 06:14 Labs: Abnormal Lab Results - Last 24 Hours (Table) 03/22/22 03/22/22 03/23/22 Range/Units 16:25 20:26 06:20 POC Glucose (mg/dL) 225 H 156 H 143 H (70-110) mg/dL 03/23/22 Range/Units 11:31 POC Glucose (mg/dL) 176 H (70-110) mg/dL
--- NOTE | 2022-03-24 14:08 | CDI ---
Documentation Clarification Form Date: 03/24/2022 01:52:46 PM From: Kasia Pagan Phone: Admit Date: 03/12/2022 09:43:00 AM Patient Name: Jabier Mitchell Visit Number: [id number] Discharge Date: 03/23/2022 01:03:00 PM ATTENTION: The Clinical Documentation Specialists (CDI) and [facility] Coding Staff appreciate your assistance in clarifying documentation. Please respond to the clarification below the line at the bottom and electronically sign. The CDI & [facility] Coding staff will review the response and follow-up if needed. Please note: Queries are made part of the Legal Health Record. If you have any questions, please contact the author of this message via ITS. Dr. Derick Johnson The final diagnosis of the pathology report states: -Mild active duodenitis with reactive foveolar metaplasia and Be's gland hyperplasia -Esophagus inflammation and superficial mucosal iron deposition; compatible with iron pill- related injury -Reactive gastropathy Coding guidelines do not allow coding professionals to code based on pathology results; therefore, clarification is requested. History/risk factors: 66yo M, ATN, GIB, CAD with stent, IDDMII w multi comps- CKD IV, chronic ulcers, neuropathy, HTN, HLD, anxiety, hyperuricemia, chronic DVT LT femoral vein Clinical Indicators: GIB, Multiple superficial duodenal ulcerations, ulcerations, duodenitis, gastritis with erosions, distal esophagitis, normal colon Treatment: EGD with Bx/Colonoscopy; Continue regular diet; Continue PPI; Continue to hold anticoagulation Please clarify if you agree with the pathology report diagnosis of: Mild active duodenitis with reactive foveolar metaplasia and Be's gland hyperplasia Esophagus inflammation and superficial mucosal iron deposition; compatible with iron pill- related injury; Reactive gastropathy [ + ] Yes [ ] No [ ] Other (please specify) [ ] Unable to determine (Template Last Revised: July 2020) MTDD
--- NOTE | 2022-03-24 14:28 | CDI ---
Documentation Clarification Form Date: 04/05/22 From: Kasia Pagan Admit Date: 03/12/2022 09:43:00 AM Patient Name: Jabier Mitchell Visit Number: [id number] Discharge Date: 03/23/2022 01:03:00 PM ATTENTION: The Clinical Documentation Specialists (CDI) and [facility] Coding Staff appreciate your assistance in clarifying documentation. Please respond to the clarification below the line at the bottom and electronically sign. The CDI & [facility] Coding staff will review the response and follow-up if needed. Please note: Queries are made part of the Legal Health Record. If you have any questions, please contact the author of this message via ITS. Dr. Hernandez, Unspecified anemia is documented per Surgical Consult 03/13/22. Additional specificity regarding the type(s) and acuity(ies) of anemia is requested. History/Risk Factors: 66yo M, ATN, GIB, CAD with stent, IDDMII w multi comps- CKD IV, chronic ulcers, neuropathy, HTN, HLD, anxiety, hyperuricemia, chronic DVT LT femoral vein Clinical indicators: Hemoglobin: 9.4 03/10/22, 8.6 03/12/22 8.7 03/16/22 8.7 03/23/22 Hematocrit: 28.9 03/10/22 28.8 03/12/11 28.2 03/16/22 Treatment: Pt on oral iron jail; IV iron. Continue to hold anticoagulation Please clarify the type(s) and acuity(-ies) of anemia(s): [ ] Acute blood loss anemia [ ] Acute on chronic blood loss anemia [ ] Chronic blood loss anemia [ ] Iron deficiency anemia [ ] Unable to determine [ ] Other, please specify MTDD
--- NOTE | 2022-03-26 14:11 | CDI ---
Documentation Clarification Form Date: 03/26/2022 02:00:11 PM From: Kasia Pagan Phone: Admit Date: 03/12/2022 09:43:00 AM Patient Name: Jabier Mitchell Visit Number: [id number] Discharge Date: 03/23/2022 01:03:00 PM ATTENTION: The Clinical Documentation Specialists (CDI) and [facility] Coding Staff appreciate your assistance in clarifying documentation. Please respond to the clarification below the line at the bottom and electronically sign. The CDI & [facility] Coding staff will review the response and follow-up if needed. Please note: Queries are made part of the Legal Health Record. If you have any questions, please contact the author of this message via ITS. Dr. Choco Steen There is documentation of Wound debridement at bedside per Consult Note 03/12/22. Additional clarification is requested. History/Risk Factors: 66yo M, IDDMII with skin ulcers, Duodenitis with bleeding ulcers, gastritis, HTN, CKD, CSHF, cellulitis, PVD, neuropathy, CAD, BPH w retention Clinical Indicators: Keflex 500 mg twice a day started for possible cellulitis/infection RUE; LLE chronic venous wounds. RUE pain and swelling. Hx LLE DVT on Eliquis. Chronic venous insufficiency Can you please clarify if that planned debridement was performed? [ ] Yes. If yes, please dictate a procedure note. [ ] No, no further action required. [ ] Other, please specify [ x ] Unable to determine (Template Last Revised: July 2020) MTDD
--- NOTE | 2022-03-30 13:26 | P.PN ---
Subjective Progress Note Date: 03/19/22 Principal diagnosis: Left lower extremity wound Patient is a 66-year-old male with a past medical history for ischemic cardiomyopathy coronary disease hypertension hyperlipidemia left lower extremity DVT chronic kidney disease in this patient who did have a chronic left lower extremity wound on the lateral as well as medial aspect Patient presented to hospital with generalized weakness. Patient is scheduled for EGD and colonoscopy this afternoon On today's evaluation that is 03/19/2022, the patient remains to be afebrile, the patient is breathing comfortably on room air, patient pain in the left lower extremity wounds is currently controlled, the patient denies chest pain shortness with or cough no abdominal pain no diarrhea Objective - Vital Signs Vital signs: Vital Signs Temp 97.5 F L 03/19/22 08:00 Pulse 71 03/19/22 08:00 Resp 16 03/19/22 08:00 BP 119/76 03/19/22 08:00 Pulse Ox 93 L 03/19/22 09:55 FiO2 Intake & Output 03/18/22 03/19/22 03/19/22 18:59 06:59 18:59 Output Total 500 300 Balance -500 -300 Weight 94.2 kg Output: Urine 500 300 Other: Voiding Method Indwelling Catheter Indwelling Catheter - Exam GENERAL DESCRIPTION: Elderly male lying in bed, no distress. No tachypnea or accessory muscle of respiration use. LUNGS: Unlabored breathing. Decreased breath sound at the base HEART: S1, S2, regular rate and rhythm. No loud murmur ABDOMEN: Soft, no tenderness , guarding or rigidity, no organomegaly EXTREMITIES: Left leg wounds with minimal slough tissue no significant surrounding redness or drainage. - Labs CBC & Chem 7: 03/16/22 05:48 03/21/22 06:14 Labs: Abnormal Lab Results - Last 24 Hours (Table) 03/18/22 03/18/22 03/19/22 Range/Units 15:59 20:50 06:00 POC Glucose (mg/dL) 150 H 172 H 151 H (70-110) mg/dL 03/19/22 Range/Units 11:34 POC Glucose (mg/dL) 198 H (70-110) mg/dL Assessment and Plan (1) Chronic ulcer of left leg Status: Acute Code(s): L97.929 - NON-PRS CHRONIC ULC UNSP PRT OF L LOW LEG W UNSP SEVERITY SNOMED Code(s): 57116960 Plan: 1patient with a chronic nonhealing wound to the left lower extremity both on the medial and lateral aspect did have minimal slough tissue however there is no significant surrounding swelling or redness patient not running any fever did have a normal white 2patient with the abnormal kidney function high risk of nephrotoxicity from the Bactrim DS which has been discontinued. 3 we will continue local wound care with Santyl followed by moist dressing change daily . 4-patient local cultures positive for group G strep 5- patient seemed to have show some clinical improvement and will continue with the Keflex Time with Patient: Less than 30
--- NOTE | 2022-03-30 13:27 | P.PN ---
Subjective Progress Note Date: 03/20/22 Principal diagnosis: Left lower extremity wound Patient is a 66-year-old male with a past medical history for ischemic cardiomyopathy coronary disease hypertension hyperlipidemia left lower extremity DVT chronic kidney disease in this patient who did have a chronic left lower extremity wound on the lateral as well as medial aspect Patient presented to hospital with generalized weakness. Patient is scheduled for EGD and colonoscopy this afternoon On today's evaluation that is 03/20/2022, the patient continues to be afebrile, the patient is breathing comfortably on room air, patient pain in the left lower extremity wounds has decreased in intensity, the patient denies chest pain shortness with or cough no abdominal pain no diarrhea with antibiotic therapy Objective - Vital Signs Vital signs: Vital Signs Temp 97.3 F L 03/20/22 20:00 Pulse 67 03/20/22 20:00 Resp 18 03/20/22 20:00 BP 113/68 03/20/22 20:00 Pulse Ox 97 03/20/22 21:32 FiO2 Intake & Output 03/20/22 03/20/22 03/21/22 06:59 18:59 06:59 Intake Total 500 Output Total 600 Balance -100 Intake: Oral 500 Output: Urine 600 Other: Voiding Method Toilet Urinal # Voids 4 - Exam GENERAL DESCRIPTION: Elderly male lying in bed, no distress. No tachypnea or accessory muscle of respiration use. LUNGS: Unlabored breathing. Decreased breath sound at the base HEART: S1, S2, regular rate and rhythm. No loud murmur ABDOMEN: Soft, no tenderness , guarding or rigidity, no organomegaly EXTREMITIES: Left leg wounds with minimal slough tissue no significant surrounding redness or drainage. - Labs CBC & Chem 7: 03/16/22 05:48 03/21/22 06:14 Labs: Abnormal Lab Results - Last 24 Hours (Table) 03/20/22 03/20/22 03/20/22 Range/Units 06:09 06:22 11:56 Sodium 135 L (137-145) mmol/L BUN 48 H (9-20) mg/dL Creatinine 2.01 H (0.66-1.25) mg/dL Glucose 111 H (74-99) mg/dL POC Glucose (mg/dL) 123 H 148 H (70-110) mg/dL Calcium 8.1 L (8.4-10.2) mg/dL 11/15/22 11/15/22 Range/Units 16:33 21:09 Sodium (137-145) mmol/L BUN (9-20) mg/dL Creatinine (0.66-1.25) mg/dL Glucose (74-99) mg/dL POC Glucose (mg/dL) 206 H 149 H (70-110) mg/dL Calcium (8.4-10.2) mg/dL Assessment and Plan (1) Chronic ulcer of left leg Status: Acute Code(s): L97.929 - NON-PRS CHRONIC ULC UNSP PRT OF L LOW LEG W UNSP SEVERITY SNOMED Code(s): 43440969 Plan: 1patient with a chronic nonhealing wound to the left lower extremity both on the medial and lateral aspect did have minimal slough tissue however there is no significant surrounding swelling or redness patient not running any fever did have a normal white 2patient with the abnormal kidney function high risk of nephrotoxicity from the Bactrim DS which has been discontinued. 3 we will continue local wound care with Santyl followed by moist dressing change daily . 4-patient local cultures positive for group G strep 5- patient slowly clinical improvement and continue the current treatment of Keflex Time with Patient: Less than 30
--- NOTE | 2022-03-30 13:29 | P.PN ---
Subjective Progress Note Date: 03/22/22 Principal diagnosis: Left lower extremity wound Patient is a 66-year-old male with a past medical history for ischemic cardiomyopathy coronary disease hypertension hyperlipidemia left lower extremity DVT chronic kidney disease in this patient who did have a chronic left lower extremity wound on the lateral as well as medial aspect Patient presented to hospital with generalized weakness. Patient is scheduled for EGD and colonoscopy this afternoon On today's evaluation that is 03/22/2022, the patient remains to be afebrile, the patient is breathing comfortably on room air, patient pain in the left lower extremity wounds has shown clinical improvement, the patient denies chest pain shortness with or cough no abdominal pain no diarrhea , no new symptoms Objective - Vital Signs Vital signs: Vital Signs Temp 96.7 F L 03/22/22 14:00 Pulse 64 03/22/22 14:00 Resp 17 03/22/22 14:00 BP 121/74 03/22/22 14:00 Pulse Ox 97 03/22/22 14:00 FiO2 Intake & Output 03/21/22 03/22/22 03/22/22 18:59 06:59 18:59 Output Total 1202 Balance -1202 Weight 94.2 kg Output: Urine 1200 Stool 2 Other: Voiding Method Toilet Toilet Urinal Urinal # Voids 2 # Bowel Movements 1 - Exam GENERAL DESCRIPTION: Elderly male lying in bed, no distress. No tachypnea or accessory muscle of respiration use. LUNGS: Unlabored breathing. Decreased breath sound at the base HEART: S1, S2, regular rate and rhythm. No loud murmur ABDOMEN: Soft, no tenderness , guarding or rigidity, no organomegaly EXTREMITIES: Left leg wounds with minimal slough tissue no significant surrounding redness or drainage. - Labs CBC & Chem 7: 03/16/22 05:48 03/21/22 06:14 Labs: Abnormal Lab Results - Last 24 Hours (Table) 03/21/22 03/21/22 03/22/22 Range/Units 16:49 21:43 05:39 POC Glucose (mg/dL) 166 H 158 H 124 H (70-110) mg/dL 03/22/22 Range/Units 11:47 POC Glucose (mg/dL) 195 H (70-110) mg/dL Assessment and Plan (1) Chronic ulcer of left leg Status: Acute Code(s): L97.929 - NON-PRS CHRONIC ULC UNSP PRT OF L LOW LEG W UNSP SEVERITY SNOMED Code(s): 76020165 Plan: 1patient with a chronic nonhealing wound to the left lower extremity both on the medial and lateral aspect did have minimal slough tissue 2patient with the abnormal kidney function high risk of nephrotoxicity from the Bactrim DS which has been discontinued. 3 we will continue local wound care with Santyl followed by moist dressing change daily . 4-patient local cultures positive for group G strep 5- patient has shown clinical improvement and will continue with Keflex and monitor clinical course closely Time with Patient: Less than 30
--- NOTE | 2022-03-30 13:30 | P.PN ---
Subjective Progress Note Date: 03/23/22 Principal diagnosis: Left lower extremity wound Patient is a 66-year-old male with a past medical history for ischemic cardiomyopathy coronary disease hypertension hyperlipidemia left lower extremity DVT chronic kidney disease in this patient who did have a chronic left lower extremity wound on the lateral as well as medial aspect Patient presented to hospital with generalized weakness. Patient is scheduled for EGD and colonoscopy this afternoon On today's evaluation that is 03/23/2022, the patient denies any fever or any chills, the patient is breathing comfortably on room air, patient denies significant pain in the left lower extremity wounds, the patient denies chest pain shortness with or cough no abdominal pain no diarrhea , patient overall feeling better Objective - Vital Signs Vital signs: Vital Signs Temp 97.5 F L 03/23/22 08:18 Pulse 63 03/23/22 08:18 Resp 16 03/23/22 08:18 BP 112/74 03/23/22 08:18 Pulse Ox 94 L 03/23/22 08:18 FiO2 Intake & Output 03/22/22 03/23/22 03/23/22 18:59 06:59 18:59 Weight 94.2 kg Other: Voiding Method Toilet Urinal # Voids 1 3 - Exam GENERAL DESCRIPTION: Elderly male lying in bed, no distress. No tachypnea or accessory muscle of respiration use. LUNGS: Unlabored breathing. Decreased breath sound at the base HEART: S1, S2, regular rate and rhythm. No loud murmur ABDOMEN: Soft, no tenderness , guarding or rigidity, no organomegaly EXTREMITIES: Left leg wounds currently dressed no drainage on the dressing - Labs CBC & Chem 7: 03/16/22 05:48 03/21/22 06:14 Labs: Abnormal Lab Results - Last 24 Hours (Table) 03/22/22 03/22/22 03/23/22 Range/Units 16:25 20:26 06:20 POC Glucose (mg/dL) 225 H 156 H 143 H (70-110) mg/dL 03/23/22 Range/Units 11:31 POC Glucose (mg/dL) 176 H (70-110) mg/dL Assessment and Plan (1) Chronic ulcer of left leg Status: Acute Code(s): L97.929 - NON-PRS CHRONIC ULC UNSP PRT OF L LOW LEG W UNSP SEVERITY SNOMED Code(s): 60357346 Plan: 1patient with a chronic nonhealing wound to the left lower extremity both on the medial and lateral aspect did have minimal slough tissue 2patient with the abnormal kidney function high risk of nephrotoxicity from the Bactrim DS which has been discontinued. 3 we will continue local wound care with Santyl followed by moist dressing change daily . 4-patient local cultures positive for group G strep 5- patient has shown clinical improvement and, the patient continue with the Keflex for about a week on discharge and close outpatient follow-up Time with Patient: Less than 30
--- NOTE | 2022-04-05 12:28 | CDI ---
Documentation Clarification Form Date: 04/05/2022 12:25 PM From: Kasia Pagan Phone: Admit Date: 03/12/2022 09:43:00 AM Patient Name: Jabier Mitchell Visit Number: [id number] Discharge Date: 03/23/2022 01:03:00 PM ATTENTION: The Clinical Documentation Specialists (CDI) and [facility] Coding Staff appreciate your assistance in clarifying documentation. Please respond to the clarification below the line at the bottom and electronically sign. The CDI & [facility] Coding staff will review the response and follow-up if needed. Please note: Queries are made part of the Legal Health Record. If you have any questions, please contact the author of this message via ITS. Dr. Scar Hernandez Unspecified anemia is documented per Surgical Consult 03/13/22. Additional specificity regarding the type(s) and acuity(ies) of anemia is requested. 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 Continue to hold anticoagulation Please clarify the type(s) and acuity(-ies) of anemia(s): [ ] Acute blood loss anemia [ ] Acute on chronic blood loss anemia [ ] Chronic blood loss anemia [ ] Iron deficiency anemia [ ] Unable to determine [ ] Other, please specify Not in acute problem that will need evaluation the [facility]
== END 2022-03-23 13:03 | DRG 637 ==
LOC: EC 19:55 → 4SSUR 03-11 00:32 → OBSVTOIN 03-12 09:43 → 2SICU 03-13 15:52 → 4SSUR 03-14 17:20
PROVIDERS: ADMIT Hospitalist; ATTEND Hospitalist
PROC: 30283B1 Transfusion of Nonautologous 4-Factor Prothrombin Complex Concentrate into Vein, Percutaneous Approach (ICD-10-PCS; 2022-03-13)
PROC: 0DB38ZX Excision of Lower Esophagus, Via Natural or Artificial Opening Endoscopic, Diagnostic (ICD-10-PCS; 2022-03-15)
PROC: 0DJD8ZZ Inspection of Lower Intestinal Tract, Via Natural or Artificial Opening Endoscopic (ICD-10-PCS; 2022-03-15)
PROC: 0DB98ZX Excision of Duodenum, Via Natural or Artificial Opening Endoscopic, Diagnostic (ICD-10-PCS; principal; 2022-03-15 15:00)
PROC: 0DB78ZX Excision of Stomach, Pylorus, Via Natural or Artificial Opening Endoscopic, Diagnostic (ICD-10-PCS; 2022-03-15 15:00)
DX: E11.622 Type 2 diabetes mellitus with other skin ulcer (principal); K26.4 Chronic or unspecified duodenal ulcer with hemorrhage; K29.81 Duodenitis with bleeding; K29.71 Gastritis, unspecified, with bleeding; L97.322 Non-pressure chronic ulcer of left ankle with fat layer exposed; R18.8 Other ascites; I13.0 Hypertensive heart and chronic kidney disease with heart failure and stage 1 through stage 4 chronic kidney disease, or unspecified chronic kidney disease; I50.22 Chronic systolic (congestive) heart failure; L03.116 Cellulitis of left lower limb; L97.222 Non-pressure chronic ulcer of left calf with fat layer exposed; L03.113 Cellulitis of right upper limb; E11.51 Type 2 diabetes mellitus with diabetic peripheral angiopathy without gangrene; E11.42 Type 2 diabetes mellitus with diabetic polyneuropathy; E11.22 Type 2 diabetes mellitus with diabetic chronic kidney disease; N18.4 Chronic kidney disease, stage 4 (severe); N17.0 Acute kidney failure with tubular necrosis; I82.512 Chronic embolism and thrombosis of left femoral vein; K80.50 Calculus of bile duct without cholangitis or cholecystitis without obstruction; K76.0 Fatty (change of) liver, not elsewhere classified; I70.242 Atherosclerosis of native arteries of left leg with ulceration of calf; I70.243 Atherosclerosis of native arteries of left leg with ulceration of ankle; D63.1 Anemia in chronic kidney disease; I95.9 Hypotension, unspecified; K31.A0 Gastric intestinal metaplasia, unspecified; R59.0 Localized enlarged lymph nodes; K20.90 Esophagitis, unspecified without bleeding; E78.5 Hyperlipidemia, unspecified; T45.4X5A Adverse effect of iron and its compounds, initial encounter; I25.10 Atherosclerotic heart disease of native coronary artery without angina pectoris; I25.5 Ischemic cardiomyopathy; R53.81 Other malaise; F41.9 Anxiety disorder, unspecified; E79.0 Hyperuricemia without signs of inflammatory arthritis and tophaceous disease; Z66 Do not resuscitate; M79.89 Other specified soft tissue disorders; R33.8 Other retention of urine; N40.1 Benign prostatic hyperplasia with lower urinary tract symptoms; I87.2 Venous insufficiency (chronic) (peripheral); B95.4 Other streptococcus as the cause of diseases classified elsewhere; K59.09 Other constipation; E61.1 Iron deficiency; T36.8X5A Adverse effect of other systemic antibiotics, initial encounter; E87.6 Hypokalemia; T39.015A Adverse effect of aspirin, initial encounter; T45.515A Adverse effect of anticoagulants, initial encounter; Z20.822 Contact with and (suspected) exposure to COVID-19; Z79.01 Long term (current) use of anticoagulants; Z95.5 Presence of coronary angioplasty implant and graft; Z86.16 Personal history of COVID-19; Z79.82 Long term (current) use of aspirin; Z89.422 Acquired absence of other left toe(s); Z79.899 Other long term (current) drug therapy; Z79.4 Long term (current) use of insulin; I25.2 Old myocardial infarction; Z88.1 Allergy status to other antibiotic agents
CPT/HCPCS: 36415; 43239; 45378; 71045; 71046; 76770; 80048; 80053; 81001; 82272; 82533; 82570; 82728; 83036; 83540; 83550; 83605; 83735; 83880; 84100; 84132; 84300; 84484; 84540; 85025; 85027; 85610; 85730; 87040; 87070; 87075; 87205; 87502; 87635; 88305; 88312; 88313; 88342; 93005; 93970; 94760; 96374; 96375; 96376; 99285

== ENCOUNTER 2022-04-01 13:12 | Emergency (ER) | payer MEDICARE ==
--- NOTE | 2022-04-01 13:32 | ED ---
General Adult HPI - General Chief complaint: Extremity Problem,Nontraumatic Stated complaint: edema Time Seen by Provider: 04/01/22 13:19 Source: patient, EMS, RN notes reviewed Mode of arrival: EMS Limitations: no limitations - History of Present Illness Initial comments: Patient is a pleasant 66-year-old male presenting to emergency department with concerns for swelling. Symptoms onset is unclear however appears to be going on for several weeks per patient. Transfer sheet stated swelling of left arm. Patient states there is discomfort of his left arm at times however this is chronic. Patient on evaluation agrees that edema is diffuse. Patient denies any dyspnea or cough. No chest pain. Patient does reside in residential. Patient states he does not walk much. - Related Data Home Medications Medication Instructions Recorded Confirmed Acetaminophen Tab [Tylenol] 650 mg PO Q6H PRN 08/22/21 03/11/22 Metoprolol Succinate (ER) [Toprol 50 mg PO DAILY 01/16/22 03/11/22 XL] Collagenase [Santyl Ointment] 1 applic TOPICAL DAILY 02/07/22 03/11/22 Ferrous Sulfate [Iron (65 MG 325 mg PO DAILY 02/07/22 03/11/22 Elemental)] Previous Rx's Medication Instructions Recorded Nitroglycerin Sl Tabs [Nitrostat] 0.4 mg SL Q5M PRN #30 tab 12/06/21 Tamsulosin [Flomax] 0.4 mg PO HS #30 cap 12/06/21 Atorvastatin [Lipitor] 80 mg PO DAILY #30 tab 12/15/21 FLUoxetine HCL [PROzac] 20 mg PO DAILY cap 12/15/21 Isosorbide Mononitrate ER [Imdur] 30 mg PO DAILY #30 tab 12/15/21 allopurinoL [Zyloprim] 100 mg PO DAILY tab 12/15/21 Omeprazole [PriLOSEC] 40 mg PO AC-BRKFST #90 cap 03/15/22 ALPRAZolam [Xanax] 0.25 mg PO BID PRN #6 tab 03/16/22 Acetaminophen-Codeine 300-30mg 1 each PO Q4HR PRN #18 tab 03/16/22 [Tylenol w/codeine #3] Cephalexin [Keflex] 500 mg PO BID #14 cap 03/19/22 Lactulose [Cephulac] 20 gm PO DAILY PRN ml 03/19/22 INSULIN ASPART (NovoLOG) [NovoLOG 0 unit SQ ACHS each 03/23/22 (formulary)] Sodium Bicarbonate Tab 325 mg PO DAILY tab 03/23/22 Azithromycin [Zithromax Z Pack] 250 mg PO DAILY #6 tab 04/01/22 Allergies Allergy/AdvReac Type Severity Reaction Status Date / Time ciprofloxacin [From Cipro] Allergy Rash/Hives Verified 04/01/22 13:18 Review of Systems ROS Statement: Those systems with pertinent positive or pertinent negative responses have been documented in the HPI. ROS Other: All systems not noted in ROS Statement are negative. Constitutional: Denies: fever Eyes: Denies: eye pain ENT: Denies: ear pain Respiratory: Denies: cough, dyspnea Cardiovascular: Reports: edema. Denies: chest pain Endocrine: Denies: fatigue Gastrointestinal: Denies: abdominal pain Past Medical History Past Medical History: Coronary Artery Disease (CAD), Cancer, Heart Failure, Diabetes Mellitus, Deep Vein Thrombosis (DVT), Hyperlipidemia, Hypertension, Liver Disease, Myocardial Infarction ([place]), Prostate Disorder, Renal Disease, Skin Disorder Additional Past Medical History / Comment(s): Ischemic cardiomyopathy, chronic CHF, 10/26/21 DVT L lower extremity, IDDM type II, neuropathy bilaterl legs/feet, L leg wounds, BPH, CKD stage III, hyperuricemia, hepatic steatosis, choledocholithiasis, eczema as child. Last Myocardial Infarction Date:: 02/12/2019 History of Any Multi-Drug Resistant Organisms: None Reported Past Surgical History: Heart Catheterization, Heart Catheterization With Stent, Orthopedic Surgery Additional Past Surgical History / Comment(s): skin cancer removed from nose August 2020 Past Anesthesia/Blood Transfusion Reactions: No Reported Reaction Date of Last Stent Placement:: 2012 Past Psychological History: Anxiety, Depression Smoking Status: Never smoker Past Alcohol Use History: Occasional Past Drug Use History: None Reported - Past Family History Mother Family Medical History: Coronary Artery Disease (CAD), Diabetes Mellitus, Myocardial Infarction ([place]) Father Family Medical History: Diabetes Mellitus, Renal Disease family Additional Family Medical History / Comment(s): Mother with history of diabetes mellitus and CAD, father with history of heart disease and diabetes General Exam Limitations: no limitations General appearance: alert, other (Mild diffuse anasarca) Head exam: Present: atraumatic Eye exam: Present: normal appearance ENT exam: Present: normal oropharynx Neck exam: Present: normal inspection Respiratory exam: Present: normal lung sounds bilaterally Cardiovascular Exam: Present: regular rate, normal rhythm GI/Abdominal exam: Present: soft. Absent: tenderness Extremities exam: Present: pedal edema. Absent: calf tenderness Neurological exam: Present: alert Psychiatric exam: Present: normal affect, normal mood Skin exam: Present: normal color, other (Bilateral lower leg wounds) Course Vital Signs 04/01/22 04/01/22 04/01/22 13:14 14:30 15:30 Temperature 97.7 F Pulse Rate 69 67 65 Respiratory 18 16 17 Rate Blood Pressure 120/78 128/98 133/83 O2 Sat by Pulse 97 98 99 Oximetry Medical Decision Making - Medical Decision Making Patient reevaluated and feels his symptoms have improved and is requesting discharge. Case was discussed with Dr. Johnson, covering Dr. Escobar who is comfortable with discharge. Patient is updated on results and need for follow- up. - Lab Data Result diagrams: 04/01/22 13:41 04/01/22 13:41 Lab Results 04/01/22 04/01/22 04/01/22 Range/Units 13:41 13:41 13:41 WBC 5.5 (3.8-10.6) k/uL RBC 3.22 L (4.30-5.90) m/uL Hgb 9.9 L (13.0-17.5) gm/dL Hct 32.6 L (39.0-53.0) % MCV 101.3 H (80.0-100.0) fL MCH 30.9 (25.0-35.0) pg MCHC 30.5 L (31.0-37.0) g/dL RDW 19.6 H (11.5-15.5) % Plt Count 146 L (150-450) k/uL MPV 10.0 Neutrophils % 80 % Lymphocytes % 8 % Monocytes % 6 % Eosinophils % 4 % Basophils % 1 % Neutrophils # 4.4 (1.3-7.7) k/uL Lymphocytes # 0.5 L (1.0-4.8) k/uL Monocytes # 0.3 (0-1.0) k/uL Eosinophils # 0.2 (0-0.7) k/uL Basophils # 0.0 (0-0.2) k/uL Hypochromasia Marked Poikilocytosis Slight Anisocytosis Slight Macrocytosis Moderate Sodium 134 L (137-145) mmol/L Potassium 5.3 H (3.5-5.1) mmol/L Chloride 98 (98-107) mmol/L Carbon Dioxide 28 (22-30) mmol/L Anion Gap 8 mmol/L BUN 50 H (9-20) mg/dL Creatinine 1.87 H (0.66-1.25) mg/dL Est GFR (CKD-EPI)AfAm 42 (>60 ml/min/1.73 sqM) Est GFR (CKD-EPI)NonAf 36 (>60 ml/min/1.73 sqM) Glucose 198 H (74-99) mg/dL Calcium 8.4 (8.4-10.2) mg/dL Total Bilirubin 0.9 (0.2-1.3) mg/dL AST 21 (17-59) U/L ALT 12 (4-49) U/L Alkaline Phosphatase 68 (38-126) U/L NT-Pro-B Natriuret Pep 42885 pg/mL Total Protein 6.6 (6.3-8.2) g/dL Albumin 3.4 L (3.5-5.0) g/dL - Radiology Data Interpreted by me: Chest x-ray shows possible left lower infiltrate Disposition Clinical Impression: Pneumonia, Edema Disposition: HOME SELF-CARE Condition: Stable Instructions (If sedation given, give patient instructions): Moderate Sedation (ED) Additional Instructions: Please do follow-up with primary care physician this week. Return for difficulty breathing, fever, increased swelling, worsening symptoms or other concerns. Prescriptions: Azithromycin [Zithromax Z Pack] 250 mg PO DAILY #6 tab Is patient prescribed a controlled substance at d/c from ED?: No Referrals: Mike Escobar MD [Primary Care Provider] - 1-2 days Time of Disposition: 15:47
[2022-04-01 13:47] LABS: Anisocytosis Slight; Basophils % (A) 1 %; Eosinophils # (A) 0.2 k/uL (0-0.7); Eosinophils % (A) 4 %; HCT 32.6 % (39.0-53.0); HGB 9.9 gm/dL (13.0-17.5); Hypochromasia Marked; Lymphocytes # (A) 0.5 k/uL (1.0-4.8); Lymphocytes % (A) 8 %; MCH 30.9 pg (25.0-35.0); MCHC 30.5 g/dL (31.0-37.0); MCV 101.3 fL (80.0-100.0); Macrocytosis Moderate; Monocytes # (A) 0.3 k/uL (0-1.0); Monocytes % (A) 6 %; Neutrophils # (A) 4.4 k/uL (1.3-7.7); Neutrophils % (A) 80 %; Platelet Count 146 k/uL (150-450); Poikilocytosis Slight; RBC 3.22 m/uL (4.30-5.90); RDW 19.6 % (11.5-15.5); WBC 5.5 k/uL (3.8-10.6)
[2022-04-01 13:56] LABS: Albumin 3.4 g/dL (3.5-5.0); Calcium 8.4 mg/dL (8.4-10.2); Potassium 5.3 mmol/L (3.5-5.1); Total Bilirubin 0.9 mg/dL (0.2-1.3); Total Protein 6.6 g/dL (6.3-8.2)
--- NOTE | 2022-04-01 14:00 | XR ---
EXAMINATION TYPE: XR chest 2V DATE OF EXAM: 04/01/2022 COMPARISON: 03/12/2022 HISTORY: Difficulty breathing TECHNIQUE: Frontal and lateral views of the chest are obtained. FINDINGS: There is a focal ill-defined airspace opacity within the left lung base with a probable sm all effusion. The right lung is clear. The heart and pulmonary vasculature are normal. There is no pneumothorax. The osseous structures are intact. IMPRESSION: Findings consistent with a pneumonic infiltrate in the left lung base with a small pleur al effusion. Clinical correlation short-term follow-up to resolution is recommended.
--- NOTE | 2022-04-01 14:27 | US ---
EXAMINATION TYPE: US venous doppler duplex UE LT DATE OF EXAM: 04/01/2022 COMPARISON: NONE CLINICAL HISTORY: swelling. Left arm swelling SIDE PERFORMED: Left Left Arm: Negative for DVT, left ulnar veins not visualized due to edema IMPRESSION: No evidence of deep vein thrombosis in the left arm.
[2022-04-01] MEDS ORDERED: FUROSEMIDE 10 MG/ML 2 ML VIAL IV ONE (15:46)
[2022-04-01 17:05] VITALS: BP 125/84; PULSE 69; RESP 16; TEMP 97.5
== END 2022-04-01 17:50 | disposition home or self-care (01) ==
LOC: EC 13:12
DX: R60.9 Edema, unspecified (principal); J18.9 Pneumonia, unspecified organism; F41.9 Anxiety disorder, unspecified; F32.A Depression, unspecified; I13.0 Hypertensive heart and chronic kidney disease with heart failure and stage 1 through stage 4 chronic kidney disease, or unspecified chronic kidney disease; I50.9 Heart failure, unspecified; I25.2 Old myocardial infarction; I25.10 Atherosclerotic heart disease of native coronary artery without angina pectoris; E11.22 Type 2 diabetes mellitus with diabetic chronic kidney disease; E11.40 Type 2 diabetes mellitus with diabetic neuropathy, unspecified; N18.30 Chronic kidney disease, stage 3 unspecified; Z79.4 Long term (current) use of insulin; Z86.718 Personal history of other venous thrombosis and embolism; Z88.1 Allergy status to other antibiotic agents; Z79.899 Other long term (current) drug therapy
CPT/HCPCS: 36415; 83880; 80053; 85025; 71046; 93971; 99284; 96374; J1940; 99285

== ENCOUNTER 2022-04-10 13:00 | Inpatient (IN) | payer MEDICARE ==
--- NOTE | 2022-04-10 13:56 | ED ---
General Adult HPI - General Chief complaint: Extremity Problem,Nontraumatic Stated complaint: Fluid Retention Time Seen by Provider: 04/10/22 13:20 Source: patient Mode of arrival: EMS Limitations: physical limitation - History of Present Illness Initial comments: 66-year-old male with past viral history of ischemic cardiac myopathy, CHF, lower externally DVT, hypertension who presents to the emergency department as worsening swelling and shortness of breath. He was seen in the emergency department on the for similar complaint. He reports that they have been weaning down his dose of Lasix and at this point have completely taken him off his Lasix. Because of this patient has had worsening lower extremity edema that now extends up to his abdomen. He also has edema of his left upper extremity and is complaining of shortness of breath. Chest x-ray was performed at his facility earlier today which demonstrated fluid overload. Because of this they transferred him to the emergency department for further evaluation. He does admit he is on a fluid restricted diet. Denies any chest pain. Continues to make urine. Patient is minimally ambulatory at the facility. He is unsure of what other medications he takes. Recent dilation of the patient's medication list does not states that he is on his anticoagulation at this time. He denies any calf pain. No other alleviating, precipitating or modifying factors - Related Data Home Medications Medication Instructions Recorded Confirmed Acetaminophen Tab [Tylenol] 650 mg PO Q6H PRN 08/22/21 04/10/22 Ferrous Sulfate [Iron (65 MG 325 mg PO DAILY@0900 02/07/22 04/10/22 Elemental)] Atorvastatin [Lipitor] 80 mg PO HS@2100 04/01/22 04/10/22 FLUoxetine HCL [PROzac] 20 mg PO HS@2100 04/01/22 04/10/22 Glucerna Shake 1 can PO BID@0900,1700 04/01/22 04/10/22 Insulin Lispro [humaLOG Kwikpen] See Protocol SQ QID@07,12,17,04/01/22 04/10/22 Isosorbide Mononitrate ER [Imdur] 30 mg PO DAILY@0900 04/01/22 04/10/22 Omeprazole [PriLOSEC] 40 mg PO DAILY@0600 04/01/22 04/10/22 Sodium Bicarbonate Tab 650 mg PO Q48H 04/01/22 04/10/22 Tamsulosin [Flomax] 0.4 mg PO HS@2100 04/01/22 04/10/22 allopurinoL [Zyloprim] 100 mg PO HS@2100 04/01/22 04/10/22 Methyl Salicylate/Menth/Camph 1 patch TOPICAL DAILY@0900 04/10/22 04/10/22 [Salonpas 3.1%-6.0%-10.0% Patch] Previous Rx's Medication Instructions Recorded Nitroglycerin Sl Tabs [Nitrostat] 0.4 mg SL Q5M PRN #30 tab 12/06/21 Lactulose [Cephulac] 20 gm PO DAILY PRN ml 03/19/22 ALPRAZolam [Xanax] 0.25 mg PO TID PRN #9 tab 04/16/22 Acetaminophen-Codeine 300-30mg 1 tab PO Q4HR PRN #18 tab 04/16/22 [Tylenol w/codeine #3] Amoxic-Pot Clav 875-125Mg 1 tab PO BID #14 tab 04/16/22 [Augmentin 875-125] Aspirin 81 mg PO DAILY tab 04/16/22 Collagenase [Santyl Ointment] 1 applic TOPICAL DAILY each 04/16/22 Furosemide [Lasix] 60 mg PO BID #1 tab 04/16/22 Allergies Allergy/AdvReac Type Severity Reaction Status Date / Time ciprofloxacin [From Cipro] Allergy Rash/Hives Verified 04/10/22 16:01 Review of Systems ROS Statement: Those systems with pertinent positive or pertinent negative responses have been documented in the HPI. ROS Other: All systems not noted in ROS Statement are negative. Past Medical History Past Medical History: Coronary Artery Disease (CAD), Cancer, Heart Failure, Diabetes Mellitus, Deep Vein Thrombosis (DVT), Hyperlipidemia, Hypertension, Liver Disease, Myocardial Infarction (MA), Prostate Disorder, Renal Disease, Skin Disorder Additional Past Medical History / Comment(s): Ischemic cardiomyopathy, chronic CHF, 10/26/21 DVT L lower extremity, IDDM type II, neuropathy bilaterl legs/feet, L leg wounds, BPH, CKD stage III, hyperuricemia, hepatic steatosis, choledocholithiasis, eczema as child. Last Myocardial Infarction Date:: 02/12/2019 History of Any Multi-Drug Resistant Organisms: None Reported Past Surgical History: Heart Catheterization, Heart Catheterization With Stent, Orthopedic Surgery Additional Past Surgical History / Comment(s): skin cancer removed from nose August 2020 Past Anesthesia/Blood Transfusion Reactions: No Reported Reaction Date of Last Stent Placement:: 2012 Past Psychological History: Anxiety, Depression Smoking Status: Never smoker Past Alcohol Use History: Occasional Past Drug Use History: None Reported - Past Family History Mother Family Medical History: Coronary Artery Disease (CAD), Diabetes Mellitus, Myocardial Infarction (MA) Father Family Medical History: Diabetes Mellitus, Renal Disease family Additional Family Medical History / Comment(s): Mother with history of diabetes mellitus and CAD, father with history of heart disease and diabetes General Exam Limitations: physical limitation General appearance: alert, in no apparent distress Head exam: Present: atraumatic, normocephalic, normal inspection Eye exam: Present: normal appearance, PERRL, EOMI. Absent: scleral icterus, conjunctival injection, periorbital swelling ENT exam: Present: normal exam, mucous membranes moist Neck exam: Present: normal inspection. Absent: tenderness, meningismus, lymphadenopathy Respiratory exam: Present: normal lung sounds bilaterally. Absent: respiratory distress, wheezes, rales, rhonchi, stridor Cardiovascular Exam: Present: regular rate, normal rhythm, normal heart sounds. Absent: systolic murmur, diastolic murmur, rubs, gallop, clicks GI/Abdominal exam: Present: soft, normal bowel sounds. Absent: distended, tenderness, guarding, rebound, rigid Extremities exam: Present: full ROM, normal capillary refill, pedal edema. Absent: tenderness, joint swelling, calf tenderness Back exam: Present: normal inspection Neurological exam: Present: alert, oriented X3, CN II-XII intact Psychiatric exam: Present: normal affect, normal mood Skin exam: Present: warm, dry, intact, normal color. Absent: rash Course Vital Signs 04/10/22 04/10/22 04/10/22 13:22 13:31 13:50 Temperature 97.5 F L 97.5 F L 97.5 F L Pulse Rate 52 L Respiratory 20 Rate Blood Pressure 115/77 O2 Sat by Pulse 93 L Oximetry 04/10/22 04/10/22 15:29 15:59 Temperature Pulse Rate 67 72 Respiratory Rate Blood Pressure O2 Sat by Pulse Oximetry EKG Findings - EKG Comments: EKG Findings:: EKG is interpreted by myself. Demonstrates sinus rhythm with a rate of 62. QRS 126. QTC of 523. No acute ST segment elevations or depressions. Medical Decision Making - Medical Decision Making Upon arrival patient was placed in room 23. I did review his laboratory studies are sent from his [facility]. Laboratory studies are conducted here which demonstrated a potassium of 6.1. Creatinine 2.0. He does have a BNP of 27,000. Patient given 60 mg of Lasix for his fluid retention. Also ordered 10 mg of insulin, 10 mg of albuterol and an amp of D50. Chest x-ray was performed which demonstrates volume overload. Discussed the results with the patient and recommended admission for which she is agreeable. Spoke with Dr. mead was agreeable to admit the patient - Lab Data Result diagrams: 04/15/22 04:00 04/16/22 07:47 Lab Results 04/10/22 04/10/22 04/10/22 Range/Units 14:08 14:08 14:08 WBC 4.3 (3.8-10.6) k/uL RBC 3.12 L (4.30-5.90) m/uL Hgb 10.1 L (13.0-17.5) gm/dL Hct 32.0 L (39.0-53.0) % MCV 102.5 H (80.0-100.0) fL MCH 32.3 (25.0-35.0) pg MCHC 31.5 (31.0-37.0) g/dL RDW 19.2 H (11.5-15.5) % Plt Count 145 L (150-450) k/uL MPV 9.5 Neutrophils % 79 % Lymphocytes % 10 % Monocytes % 6 % Eosinophils % 3 % Basophils % 1 % Neutrophils # 3.4 (1.3-7.7) k/uL Lymphocytes # 0.4 L (1.0-4.8) k/uL Monocytes # 0.3 (0-1.0) k/uL Eosinophils # 0.1 (0-0.7) k/uL Basophils # 0.0 (0-0.2) k/uL Hypochromasia Marked Anisocytosis Slight Macrocytosis Moderate PT 12.3 H (9.0-12.0) sec INR 1.2 H (<1.2) APTT 27.6 (22.0-30.0) sec Sodium 135 L (137-145) mmol/L Potassium 6.1 H* (3.5-5.1) mmol/L Chloride 100 (98-107) mmol/L Carbon Dioxide 28 (22-30) mmol/L Anion Gap 7 mmol/L BUN 64 H (9-20) mg/dL Creatinine 2.05 H (0.66-1.25) mg/dL Est GFR (CKD-EPI)AfAm 38 (>60 ml/min/1.73 sqM) Est GFR (CKD-EPI)NonAf 32 (>60 ml/min/1.73 sqM) Glucose 166 H (74-99) mg/dL Plasma Lactic Acid Dwain (0.7-2.0) mmol/L Calcium 8.5 (8.4-10.2) mg/dL Total Bilirubin 1.1 (0.2-1.3) mg/dL AST 20 (17-59) U/L ALT 13 (4-49) U/L Alkaline Phosphatase 66 (38-126) U/L Troponin I (0.000-0.034) ng/mL NT-Pro-B Natriuret Pep pg/mL Total Protein 6.6 (6.3-8.2) g/dL Albumin 3.3 L (3.5-5.0) g/dL 04/10/22 04/10/22 04/10/22 Range/Units 14:08 14:08 14:08 WBC (3.8-10.6) k/uL RBC (4.30-5.90) m/uL Hgb (13.0-17.5) gm/dL Hct (39.0-53.0) % MCV (80.0-100.0) fL MCH (25.0-35.0) pg MCHC (31.0-37.0) g/dL RDW (11.5-15.5) % Plt Count (150-450) k/uL MPV Neutrophils % % Lymphocytes % % Monocytes % % Eosinophils % % Basophils % % Neutrophils # (1.3-7.7) k/uL Lymphocytes # (1.0-4.8) k/uL Monocytes # (0-1.0) k/uL Eosinophils # (0-0.7) k/uL Basophils # (0-0.2) k/uL Hypochromasia Anisocytosis Macrocytosis PT (9.0-12.0) sec INR (<1.2) APTT (22.0-30.0) sec Sodium (137-145) mmol/L Potassium (3.5-5.1) mmol/L Chloride (98-107) mmol/L Carbon Dioxide (22-30) mmol/L Anion Gap mmol/L BUN (9-20) mg/dL Creatinine (0.66-1.25) mg/dL Est GFR (CKD-EPI)AfAm (>60 ml/min/1.73 sqM) Est GFR (CKD-EPI)NonAf (>60 ml/min/1.73 sqM) Glucose (74-99) mg/dL Plasma Lactic Acid Dwain 1.5 (0.7-2.0) mmol/L Calcium (8.4-10.2) mg/dL Total Bilirubin (0.2-1.3) mg/dL AST (17-59) U/L ALT (4-49) U/L Alkaline Phosphatase (38-126) U/L Troponin I <0.012 (0.000-0.034) ng/mL NT-Pro-B Natriuret Pep 35021 pg/mL Total Protein (6.3-8.2) g/dL Albumin (3.5-5.0) g/dL Critical Care Time Critical Care Time: Yes Critical Care Time: 32 minutes for treatment of hyperkalemia Disposition Clinical Impression: CHF exacerbation, Bilateral lower extremity edema, Pulmonary edema, Respiratory insufficiency, Hyperkalemia, CKD (chronic kidney disease) Disposition: ADMITTED IP TO THIS HOSP Is patient prescribed a controlled substance at d/c from ED?: No Time of Disposition: 16:43 Decision to Admit Reason: Admit from EC Decision Date: 04/10/22 Decision Time: 16:43
[2022-04-10 14:39] LABS: Anisocytosis Slight; Basophils % (A) 1 %; Eosinophils # (A) 0.1 k/uL (0-0.7); Eosinophils % (A) 3 %; HGB 10.1 gm/dL (13.0-17.5); Hypochromasia Marked; Lymphocytes # (A) 0.4 k/uL (1.0-4.8); Lymphocytes % (A) 10 %; MCH 32.3 pg (25.0-35.0); MCHC 31.5 g/dL (31.0-37.0); MCV 102.5 fL (80.0-100.0); Macrocytosis Moderate; Mean Platelet Volume 9.5; Monocytes # (A) 0.3 k/uL (0-1.0); Monocytes % (A) 6 %; Neutrophils # (A) 3.4 k/uL (1.3-7.7); Neutrophils % (A) 79 %; Platelet Count 145 k/uL (150-450); RBC 3.12 m/uL (4.30-5.90); RDW 19.2 % (11.5-15.5); WBC 4.3 k/uL (3.8-10.6)
--- NOTE | 2022-04-10 14:47 | XR ---
EXAMINATION TYPE: XR chest 2V DATE OF EXAM: 04/10/2022 COMPARISON: 04/01/2022 TECHNIQUE: PA and lateral views submitted. HISTORY: Difficulty breathing FINDINGS: Heart is enlarged there is diffuse interstitial pattern with small right effusion. Arthropathy of the shoulders. No pneumothorax. Hypertrophic and degenerative change of the spine. IMPRESSION: 1. Correlate for CHF versus interstitial pneumonitis.
[2022-04-10 14:54] LABS: INR 1.2 (<1.2); Partial Thromboplastin Time 27.6 sec (22.0-30.0); Prothrombin Time 12.3 sec (9.0-12.0)
[2022-04-10 14:55] LABS: Albumin 3.3 g/dL (3.5-5.0); Calcium 8.5 mg/dL (8.4-10.2); Total Bilirubin 1.1 mg/dL (0.2-1.3); Total Protein 6.6 g/dL (6.3-8.2)
[2022-04-10 14:58] LABS: Potassium 6.1 mmol/L (3.5-5.1)
[2022-04-10] MEDS ORDERED: INSULIN REGULAR 100 UNIT/ML VIAL (IV) IV ONE (15:18)
[2022-04-10] MEDS ORDERED: ALBUTEROL NEBULIZED 2.5 MG/3 ML INHALATION STA (15:18)
[2022-04-10] MEDS ORDERED: DEXTROSE 50% SYRINGE 50 ML IVP STA (15:18)
[2022-04-10] MEDS ORDERED: FUROSEMIDE 10 MG/ML 10 ML VIAL IV STA (16:41)
[2022-04-10] MEDS ORDERED: NALOXONE 0.4 MG/ML 1 ML VIAL IV PRN (16:44)
[2022-04-10] MEDS ORDERED: LACTULOSE 20 GM/30 ML CUP PO PRN (20:10)
[2022-04-10] MEDS ORDERED: ACETAMINOPHEN TAB 325 MG TAB PO PRN (20:10)
[2022-04-10] MEDS ORDERED: NITROGLYCERIN SL TABS 0.4 MG TAB SUBLINGUAL PRN (20:10)
[2022-04-10 20:24] LABS: Glucose,Whole Blood 191 mg/dL (70-110)
[2022-04-10 21:19] LABS: Calcium 8.7 mg/dL (8.4-10.2); Potassium 5.8 mmol/L (3.5-5.1)
[2022-04-10] MEDS: SODIUM ZIRCONIUM CYCLOSILICATE 10 GM PACKET PO SCH (22:49)
[2022-04-10] MEDS: ATORVASTATIN 80 MG TAB PO SCH (22:49)
[2022-04-10] MEDS: FLUoxetine HCL 20 MG CAP PO SCH (22:49)
[2022-04-10] MEDS: allopurinoL 100 MG TAB PO SCH (22:49)
[2022-04-10] MEDS: ALPRAZolam 0.25 MG TAB PO PRN (22:49)
[2022-04-10] MEDS: TAMSULOSIN 0.4 MG CAP.ER.24H PO SCH (22:49)
[2022-04-11 06:05] LABS: Glucose,Whole Blood 178 mg/dL (70-110)
[2022-04-11] MEDS: PANTOPRAZOLE 40 MG TABLET PO SCH (06:17)
[2022-04-11] MEDS: INSULIN ASPART (NovoLOG) 100 UNIT/ML VIAL SQ SCH ×4 (06:17→20:59)
[2022-04-11 08:10] LABS: Anisocytosis Slight; Basophils # (A) 0.1 k/uL (0-0.2); Basophils % (A) 1 %; Eosinophils # (A) 0.1 k/uL (0-0.7); Eosinophils % (A) 2 %; HCT 29.7 % (39.0-53.0); HGB 9.3 gm/dL (13.0-17.5); Hypochromasia Marked; Lymphocytes # (A) 0.5 k/uL (1.0-4.8); Lymphocytes % (A) 10 %; MCH 32.4 pg (25.0-35.0); MCHC 31.3 g/dL (31.0-37.0); MCV 103.6 fL (80.0-100.0); Macrocytosis Marked; Mean Platelet Volume 10.2; Monocytes # (A) 0.3 k/uL (0-1.0); Monocytes % (A) 7 %; Neutrophils # (A) 3.5 k/uL (1.3-7.7); Neutrophils % (A) 77 %; Platelet Count 117 k/uL (150-450); RBC 2.87 m/uL (4.30-5.90); RDW 19.7 % (11.5-15.5); WBC 4.6 k/uL (3.8-10.6)
[2022-04-11 08:21] LABS: Calcium 8.4 mg/dL (8.4-10.2); Potassium 5.7 mmol/L (3.5-5.1)
[2022-04-11 09:00] LABS: Polychromasia Present; Stomatocytes Present
[2022-04-11] MEDS ORDERED: METOPROLOL SUCCINATE (ER) 50 MG TAB.ER.24H PO SCH (09:00)
[2022-04-11] MEDS ORDERED: NON FORMULARY DRUG (Glucerna Shake 1 CAN Ml) PO SCH (09:00)
--- NOTE | 2022-04-11 09:13 | P.CONS ---
History of Present Illness - Reason for Consult Consult date: 04/11/22 wound care - History of Present Illness This is a 66-year-old patient known to the wound care center who follows with Dr. Song. Patient has multiple nonhealing ulcerations to the left lower extremity. He has been utilizing Santyl in the wound care center. Patient has history of atherosclerosis, previous MRSA last antibiotic was in December, and diabetes. Original cause of wound was Blister. Patient has new ulcerations to the right lower extremity they are Limited to skin breakdown. He has a new ulceration to the medial right great toe that shows signs of infection. The right great toe ulceration measures approximate 2 x 1.5 x 0.1 cm with significant amount of slough and nonviable tissue, erythema noted. Ulcerations to left lower extremity has been in treatment for approximately 18 weeks. Original cause of wound was Blister. The date acquired was: 11/06/2021. The wound has been in treatment 18 weeks. The wound is currently classified as a Grade 2 wound with etiology of Diabetic Wound/Ulcer of the Lower Extremity and is located on the Left,Lateral Lower Leg. The wound measures 18.2cm length x 6.3cm width x 0.2cm depth; 90.054cm^2 area and 18.011cm^3 volume. There is Fat Layer (Subcutaneous Tissue) exposed. There is no tunneling or undermining noted. There is a large amount of serous drainage noted. The wound margin is well defined and not attached to the wound base. There is large (67-100%) red granulation within the wound bed. There is a small (1-33%) amount of necrotic tissue within the wound bed including Adherent Slough. The periwound skin appearance exhibited: Dry/Scaly. The periwound skin appearance did not exhibit: Callus, Crepitus, Excoriation, Induration, Rash, Scarring, Maceration, Atrophie Ally, Cyanosis, Ecchymosis, Hemosiderin Staining, Mottled, Pallor, Rubor, Erythema. Periwound temperature was noted as Cool/Cold. The periwound has tenderness on palpation. Original cause of wound was Blister. The date acquired was: 11/06/2021. The wound has been in treatment 18 weeks. The wound is currently classified as a Grade 2 wound with etiology of Diabetic Wound/Ulcer of the Lower Extremity and is located on the Left,Lateral Ankle. The wound measures 1.9cm length x 2.5cm width x 0.1cm depth; 3.731cm^2 area and 0.373cm^3 volume. There is Fat Layer (Subcutaneous Tissue) exposed. There is no tunneling or undermining noted. There is a medium amount of serous drainage noted. The wound margin is well defined and not attached to the wound base. There is no granulation within the wound bed. There is a large (67-100%) amount of necrotic tissue within the wound bed including Adherent Slough. The periwound skin appearance exhibited: Scarring, Dry/Scaly. The periwound skin appearance did not exhibit: Callus, Crepitus, Excoriation, Induration, Rash, Maceration, Atrophie Ally, Cyanosis, Ecchymosis, Hemosiderin Staining, Mottled, Pallor, Rubor, Erythema. Periwound temperature was noted as Cool/Cold. The periwound has tenderness on palpation. Original cause of wound was Blister. The date acquired was: 11/06/2021. The wound has been in treatment 18 weeks. The wound is currently classified as a Grade 2 wound with etiology of Diabetic Wound/Ulcer of the Lower Extremity and is located on the Left,Medial Lower Leg. The wound measures 7.5cm length x 2.7cm width x 0.3cm depth; 15.904cm^2 area and 4.771cm^3 volume. There is Fat Layer (Subcutaneous Tissue) exposed. There is no tunneling or undermining noted. There is a medium amount of serous drainage noted. The wound margin is well defined and not attached to the wound base. There is small (1-33%) red granulation within the wound bed. There is a large (67-100%) amount of necrotic tissue within the wound bed including Adherent Slough. The periwound skin appearance exhibited: Scarring, Dry/Scaly. The periwound skin appearance did not exhibit: Callus, Crepitus, Excoriation, Induration, Rash, Maceration, Atrophie Ally, Cyanosis, Ecchymosis, Hemosiderin Staining, Mottled, Pallor, Rubor, Erythema. Periwound temperature was noted as Cool/Cold. The periwound has tenderness on palpation. Original cause of wound was Blister. The date acquired was: 11/06/2021. The wound has been in treatment 18 weeks. The wound is currently classified as a Grade 2 wound with etiology of Diabetic Wound/Ulcer of the Lower Extremity and is located on the Left,Medial Ankle. The wound measures 3.4cm length x 1.7cm width x 0.1cm depth; 4.54cm^2 area and 0.454cm^3 volume. There is no tunneling or undermining noted. There is a small amount of serous drainage noted. The wound margin is distinct with the outline attached to the wound base. There is no granulation within the wound bed. There is a large (67-100%) amount of necrotic tissue within the wound bed including Adherent Slough. The periwound skin appearance exhibited: Scarring. The periwound skin appearance did not exhibit: Callus, Crepitus, Excoriation, Induration, Rash, Dry/Scaly, Maceration, Atrophie Ally, Cyanosis, Ecchymosis, Hemosiderin Staining, Mottled, Pallor, R ubor, Erythema. Periwound temperature was noted as Cool/Cold. The periwound has tenderness on palpation. General Notes: scabbed Review Of Systems: Constitutional: No fever, no chills, no night sweats. No weight change. No weakness, fatigue or lethargy. No daytime sleepiness. Integumentary:reports wounds, no lesions. No rash or pruritus. No unusual bruising. No change in hair or nails. Physical exam: General Appearance: Alert, cooperative, no distress, appears stated age. Skin: See HPI all other Skin color, texture, tugor normal, no rashes or lesions. Neurologic: Alert oriented x3 Assessment: 1. Diabetes mellitus due to underlying condition with other skin ulcer 2. Atherosclerosis of [place] arteries of left leg with ulceration of ankle 3. Atherosclerosis of [place] arteries of left leg with ulceration of calf 4. Non-pressure chronic ulcer of left ankle with fat layer exposed 5. Non-pressure chronic ulcer of left calf with fat layer exposed 6. Non-pressure chronic ulcer of right calf limited to skin breakdown 7. Non-pressure chronic ulcer of other part of right foot with fat layer exposed Plan: 1. Left lower extremity and Right great toe: Apply Santyl, saline moist gauze, dry gauze, rolled gauze and secure with paper tape. Wrap with John wrap. Change daily. 2. Right lower extremity anterior aspect: Apply collagen, saline moistened gauze, dry gauze, rolled gauze and secure with paper tape. Wrap with John wrap. Change Saturday. 3. Patient to return to the wound care center on April 18 at 2:30. Thank you for the consultation any questions to contact the wound care center DNP note has been reviewed and discussed with Dr. Song and the impression and plan of care has been directed as dictated. Past Medical History Past Medical History: Coronary Artery Disease (CAD), Cancer, Heart Failure, Betty betes Mellitus, Deep Vein Thrombosis (DVT), Hyperlipidemia, Hypertension, Liver Disease, Myocardial Infarction ([place]), Prostate Disorder, Renal Disease, Skin Disorder Additional Past Medical History / Comment(s): Ischemic cardiomyopathy, chronic CHF, 10/26/21 DVT L lower extremity, IDDM type II, neuropathy bilaterl legs/feet, L leg wounds, BPH, CKD stage III, hyperuricemia, hepatic steatosis, choledocholithiasis, eczema as child. Last Myocardial Infarction Date:: 02/12/2019 History of Any Multi-Drug Resistant Organisms: None Reported Past Surgical History: Heart Catheterization, Heart Catheterization With Stent, Orthopedic Surgery Additional Past Surgical History / Comment(s): skin cancer removed from nose August 2020 Past Anesthesia/Blood Transfusion Reactions: No Reported Reaction Date of Last Stent Placement:: 2012 Past Psychological History: Anxiety, Depression Smoking Status: Never smoker Past Alcohol Use History: Occasional Past Drug Use History: None Reported - Past Family History Mother Family Medical History: Coronary Artery Disease (CAD), Diabetes Mellitus, Myocardial Infarction ([place]) Father Family Medical History: Diabetes Mellitus, Renal Disease family Additional Family Medical History / Comment(s): Mother with history of diabetes mellitus and CAD, father with history of heart disease and diabetes Medications and Allergies Home Medications Medication Instructions Recorded Confirmed Type Acetaminophen Tab [Tylenol] 650 mg PO Q6H PRN 08/22/21 04/10/22 History Nitroglycerin Sl Tabs [Nitrostat] 0.4 mg SL Q5M PRN #30 tab 12/06/21 04/10/22 Rx Metoprolol Succinate (ER) [Toprol 50 mg PO DAILY@0900 01/16/22 04/10/22 History XL] Ferrous Sulfate [Iron (65 MG 325 mg PO DAILY@0900 02/07/22 04/10/22 History Elemental)] Lactulose [Cephulac] 20 gm PO DAILY PRN ml 03/19/22 04/10/22 Rx Acetaminophen-Codeine 300-30mg 1 tab PO Q4HR PRN 04/01/22 04/10/22 History [Tylenol w/codeine #3] Atorvastatin [Lipitor] 80 mg PO HS@209904/01/22 04/10/22 History FLUoxetine HCL [PROzac] 20 mg PO HS@209904/01/22 04/10/22 History Glucerna Shake 1 can PO BID@0900,1700 04/01/22 04/10/22 History Insulin Lispro [humaLOG Kwikpen] See Protocol SQ QID@07,12,,04/01/22 04/10/22 History Isosorbide Mononitrate ER [Imdur] 30 mg PO DAILY@0904/01/22 04/10/22 History Omeprazole [PriLOSEC] 40 mg PO DAILY@0600 04/01/22 04/10/22 History Sodium Bicarbonate Tab 650 mg PO Q48H 04/01/22 04/10/22 History Tamsulosin [Flomax] 0.4 mg PO HS@209904/01/22 04/10/22 History allopurinoL [Zyloprim] 100 mg PO HS@209904/01/22 04/10/22 History ALPRAZolam [Xanax] 0.25 mg PO TID PRN 04/10/22 04/10/22 History Methyl Salicylate/Menth/Camph 1 patch TOPICAL DAILY@0900 04/10/22 04/10/22 History [Salonpas 3.1%-6.0%-10.0% Patch] Allergies Allergy/AdvReac Type Severity Reaction Status Date / Time ciprofloxacin [From Cipro] Allergy Rash/Hives Verified 04/10/22 16:01 Physical Exam Vitals: Vital Signs Temp Pulse Pulse Resp BP BP Pulse Ox 04/11/22 08:37 92 L 04/11/22 04:00 97.6 F 72 16 117/67 92 L 04/11/22 02:00 65 18 04/11/22 00:00 97.8 F 67 18 112/72 96 04/10/22 20:00 97.9 F 69 17 110/66 95 04/10/22 15:59 72 04/10/22 15:29 67 04/10/22 13:50 97.5 F L 04/10/22 13:31 97.5 F L 52 L 20 115/77 93 L 04/10/22 13:22 97.5 F L Intake and Output 04/10/22 04/11/22 04/11/22 22:59 06:59 14:59 Intake Total 180 Balance 180 Intake: Oral 180 Other: Voiding Method Toilet Toilet # Voids 3 # Bowel Movements 1 Weight 90.718 kg 106.7 kg Results CBC & Chem 7: 04/11/22 07:44 04/11/22 07:44 Labs: Abnormal Lab Results - Last 24 Hours (Table) 04/10/22 04/10/22 04/10/22 Range/Units 14:08 14:08 14:08 RBC 3.12 L (4.30-5.90) m/uL Hgb 10.1 L (13.0-17.5) gm/dL Hct 32.0 L (39.0-53.0) % MCV 102.5 H (80.0-100.0) fL RDW 19.2 H (11.5-15.5) % Plt Count 145 L (150-450) k/uL Lymphocytes # 0.4 L (1.0-4.8) k/uL Macrocytosis PT 12.3 H (9.0-12.0) sec INR 1.2 H (<1.2) Sodium 135 L (137-145) mmol/L Potassium 6.1 H* (3.5-5.1) mmol/L BUN 64 H (9-20) mg/dL Creatinine 2.05 H (0.66-1.25) mg/dL Glucose 166 H (74-99) mg/dL POC Glucose (mg/dL) (70-110) mg/dL Albumin 3.3 L (3.5-5.0) g/dL 04/10/22 04/10/22 04/11/22 Range/Units 20:23 20:51 06:04 RBC (4.30-5.90) m/uL Hgb (13.0-17.5) gm/dL Hct (39.0-53.0) % MCV (80.0-100.0) fL RDW (11.5-15.5) % Plt Count (150-450) k/uL Lymphocytes # (1.0-4.8) k/uL Macrocytosis PT (9.0-12.0) sec INR (<1.2) Sodium 135 L (137-145) mmol/L Potassium 5.8 H (3.5-5.1) mmol/L BUN 61 H (9-20) mg/dL Creatinine 2.11 H (0.66-1.25) mg/dL Glucose 145 H (74-99) mg/dL POC Glucose (mg/dL) 191 H 178 H (70-110) mg/dL Albumin (3.5-5.0) g/dL 04/11/22 04/11/22 Range/Units 07:44 07:44 RBC 2.87 L (4.30-5.90) m/uL Hgb 9.3 L (13.0-17.5) gm/dL Hct 29.7 L (39.0-53.0) % MCV 103.6 H (80.0-100.0) fL RDW 19.7 H (11.5-15.5) % Plt Count 117 L (150-450) k/uL Lymphocytes # 0.5 L (1.0-4.8) k/uL Macrocytosis Marked A PT (9.0-12.0) sec INR (<1.2) Sodium 135 L (137-145) mmol/L Potassium 5.7 H (3.5-5.1) mmol/L BUN 61 H (9-20) mg/dL Creatinine 2.18 H (0.66-1.25) mg/dL Glucose 149 H (74-99) mg/dL POC Glucose (mg/dL) (70-110) mg/dL Albumin (3.5-5.0) g/dL Assessment and Plan (1) Chronic venous hypertension w/ulcer and inflammation involv both sides Current Visit: Yes Status: Acute Code(s): I87.333 - CHRONIC VENOUS HTN W ULC ER AND INFLAM OF BILATERAL LOW EXTRM; L97.919 - NON-PRS CHRONIC ULC UNSP PRT OF R LOW LEG W UNSP SEVERITY; L97.929 - NON-PRS CHRONIC ULC UNSP PRT OF L LOW LEG W UNSP SEVERITY SNOMED Code(s): 832887786 (2) Type 2 diabetes mellitus with foot ulcer Current Visit: Yes Status: Acute Code(s): E11.621 - TYPE 2 DIABETES MELLITUS WITH FOOT ULCER; L97.509 - NON-PRESSURE CHRONIC ULCER OTH PRT UNSP FOOT W UNSP SEVERITY SNOMED Code(s): 961726601 (3) Type 2 diabetes mellitus with other skin ulcer Current Visit: Yes Status: Acute Code(s): E11.622 - TYPE 2 DIABETES MELLITUS WITH OTHER SKIN ULCER; L98.499 - NON-PRESSURE CHRONIC ULCER OF SKIN OF SITES W UNSP SEVERITY SNOMED Code(s): 381539666 (4) Non-pressure chronic ulcer of other part of right foot with fat layer exposed Current Visit: Yes Status: Acute Code(s): L97.512 - NON-PRS CHRONIC ULCER OTH PRT RIGHT FOOT W FAT LAYER EXPOSED SNOMED Code(s): 35340251853669807 (5) Non-pressure chronic ulcer of right calf limited to breakdown of skin Current Visit: Yes Status: Acute Code(s): L97.211 - NON-PRS CHRONIC ULCER OF RIGHT CALF LIMITED TO BRKDWN SKIN SNOMED Code(s): 70337586115740154 (6) Atherosclerosis of [place] arteries of left leg with ulceration of ankle Current Visit: No Status: Acute Code(s): I70.243 - ATHSCL [place] ARTERIES OF LEFT LEG W ULCERATION OF ANKLE SNOMED Code(s): 696557791 (7) Atherosclerosis of [place] arteries of left leg with ulceration of calf Current Visit: No Status: Acute Code(s): I70.242 - ATHSCL [place] ARTERIES OF LEFT LEG W ULCERATION OF CALF SNOMED Code(s): 418899738 (8) Non-pressure chronic ulcer of left ankle with fat layer exposed Current Visit: No Status: Acute Code(s): L97.322 - NON-PRESSURE CHRONIC ULCER OF LEFT ANKLE W FAT LAYER EXPOSED SNOMED Code(s): 00480913871420406 (9) Non-pressure chronic ulcer of left calf with fat layer exposed Current Visit: No Status: Acute Code(s): L97.222 - NON-PRESSURE CHRONIC ULCER OF LEFT CALF W FAT LAYER EXPOSED SNOMED Code(s): 89603672072595085
[2022-04-11] MEDS ORDERED: FUROSEMIDE 10 MG/ML 4 ML VIAL IV SCH (09:15)
[2022-04-11] MEDS: FERROUS SULFATE 325 MG TAB PO SCH (09:27)
[2022-04-11] MEDS: SODIUM ZIRCONIUM CYCLOSILICATE 10 GM PACKET PO SCH ×3 (09:27→21:00)
[2022-04-11] MEDS: Acetaminophen-Codeine 300-30mg TAB PO PRN ×2 (09:27→17:10)
[2022-04-11] MEDS: ISOSORBIDE MONONITRATE ER 30 MG TAB.ER.24H PO SCH (09:27)
[2022-04-11] MEDS: COLLAGENASE 250 UNIT/GM OINTMENT 30 GM TUBE TOPICAL SCH (10:29)
[2022-04-11] MEDS: METHYL SALICYLATE-MENTHOL OINT (3 OZ TUBE) TOPICAL SCH (10:29)
[2022-04-11 11:41] LABS: Glucose,Whole Blood 197 mg/dL (70-110)
--- NOTE | 2022-04-11 12:14 | P.NPCON ---
History of Present Illness - Reason for Consult chronic renal failure - History of Present Illness Reason for consultation: Chronic kidney disease History of present illness: Patient is a 66-year-old male seen in renal consultation for chronic kidney disease. Patient has chronic kidney disease stage IIIB with baseline creatinine in the range of 1.5-2 secondary to nephrosclerosis and diabetic kidney disease. Patient's creatinine this admission has been stable with creatinine at 2.18 this morning. Patient presented to the hospital due to worsening shortness of breath and edema. Patient states he has history of congestive heart failure and was taking Lasix but was gradually tapered off and completely discontinued about 5 days ago. Since then he's been developing edema and also progressively getting more short of breath and that is why he came to the hospital. Patient has history of systolic CHF with ejection fraction of less than 15% with moderate pulmonary hypertension. He has history of coronary artery disease and has 3 cardiac stents. Patient has long-standing history of diabetes. Patient has wounds in his lower cavities. He also has edema. Denies hematuria. Blood pressure stable. Chest x-ray suggestive of CHF. No fever or chills. Denies vomiting or diarrhea. Vital signs are stable. General: Awake. No acute distress. HEENT: Head exam is unremarkable. LUNGS: Breath sounds decreased. HEART: Rate and Rhythm are regular. ABDOMEN: Soft, no distention. EXTREMITITES: 2+ edema. No drainage. Wounds noted. Past Medical History Past Medical History: Coronary Artery Disease (CAD), Cancer, Heart Failure, Diabetes Mellitus, Deep Vein Thrombosis (DVT), Hyperlipidemia, Hypertension, Liver Disease, Myocardial Infarction ([place]), Prostate Disorder, Renal Disease, Skin Disorder Additional Past Medical History / Comment(s): Ischemic cardiomyopathy, chronic CHF, 10/26/21 DVT L lower extremity, IDDM type II, neuropathy bilaterl legs/feet, L leg wounds, BPH, CKD stage III, hyperuricemia, hepatic steatosis, ch oledocholithiasis, eczema as child. Last Myocardial Infarction Date:: 02/12/2019 History of Any Multi-Drug Resistant Organisms: None Reported Past Surgical History: Heart Catheterization, Heart Catheterization With Stent, Orthopedic Surgery Additional Past Surgical History / Comment(s): skin cancer removed from nose August 2020 Past Anesthesia/Blood Transfusion Reactions: No Reported Reaction Date of Last Stent Placement:: 2012 Past Psychological History: Anxiety, Depression Smoking Status: Never smoker Past Alcohol Use History: Occasional Past Drug Use History: None Reported - Past Family History Mother Family Medical History: Coronary Artery Disease (CAD), Diabetes Mellitus, Myocardial Infarction ([place]) Father Family Medical History: Diabetes Mellitus, Renal Disease family Additional Family Medical History / Comment(s): Mother with history of diabetes mellitus and CAD, father with history of heart disease and diabetes Medications and Allergies Home Medications Medication Instructions Recorded Confirmed Type Acetaminophen Tab [Tylenol] 650 mg PO Q6H PRN 08/22/21 04/10/22 History Nitroglycerin Sl Tabs [Nitrostat] 0.4 mg SL Q5M PRN #30 tab 12/06/21 04/10/22 Rx Metoprolol Succinate (ER) [Toprol 50 mg PO DAILY@0900 01/16/22 04/10/22 History XL] Ferrous Sulfate [Iron (65 MG 325 mg PO DAILY@0900 02/07/22 04/10/22 History Elemental)] Lactulose [Cephulac] 20 gm PO DAILY PRN ml 03/19/22 04/10/22 Rx Acetaminophen-Codeine 300-30mg 1 tab PO Q4HR PRN 04/01/22 04/10/22 History [Tylenol w/codeine #3] Atorvastatin [Lipitor] 80 mg PO HS@209904/01/22 04/10/22 History FLUoxetine HCL [PROzac] 20 mg PO HS@209904/01/22 04/10/22 History Glucerna Shake 1 can PO BID@0900,1700 04/01/22 04/10/22 History Insulin Lispro [humaLOG Kwikpen] See Protocol SQ QID@07,12,17,04/01/22 04/10/22 History Isosorbide Mononitrate ER [Imdur] 30 mg PO DAILY@0900 04/01/22 04/10/22 History Omeprazole [PriLOSEC] 40 mg PO DAILY@0604/01/22 04/10/22 History Sodium Bicarbonate Tab 650 mg PO Q48H 04/01/22 04/10/22 History Tamsulosin [Flomax] 0.4 mg PO HS@209904/01/22 04/10/22 History allopurinoL [Zyloprim] 100 mg PO HS@209904/01/22 04/10/22 History ALPRAZolam [Xanax] 0.25 mg PO TID PRN 04/10/22 04/10/22 History Methyl Salicylate/Menth/Camph 1 patch TOPICAL DAILY@0900 04/10/22 04/10/22 History [Salonpas 3.1%-6.0%-10.0% Patch] Allergies Allergy/AdvReac Type Severity Reaction Status Date / Time ciprofloxacin [From Cipro] Allergy Rash/Hives Verified 04/10/22 16:01 Physical Exam Vitals: Vital Signs Temp Pulse Pulse Resp BP BP Pulse Ox 04/11/22 08:37 92 L 04/11/22 07:46 97.9 F 56 L 18 124/66 96 04/11/22 04:00 97.6 F 72 16 117/67 92 L 04/11/22 02:00 65 18 04/11/22 00:00 97.8 F 67 18 112/72 96 04/10/22 20:00 97.9 F 69 17 110/66 95 04/10/22 15:59 72 04/10/22 15:29 67 04/10/22 13:50 97.5 F L 04/10/22 13:31 97.5 F L 52 L 20 115/77 93 L 04/10/22 13:22 97.5 F L Intake and Output 04/10/22 04/11/22 04/11/22 22:59 06:59 14:59 Intake Total 180 Balance 180 Intake: Oral 180 Other: Voiding Method Toilet Toilet Toilet External Catheter # Voids 3 # Bowel Movements 1 Weight 90.718 kg 106.7 kg Results - Lab Results Most recent lab results Calcium 8.4 mg/dL (8.4-10.2) 04/11/22 07:44 04/11/22 07:44 04/11/22 07:44 Assessment and Plan Plan: Assessment: 1. Mild acute kidney injury mostly prerenal secondary to cardiorenal syndrome. Creatinine 2.18 today. 2. Chronic kidney disease stage IIIB secondary to diabetic kidney disease and nephrosclerosis with baseline creatinine 1.5-2. 3. Hyperkalemia secondary to chronic kidney disease. Better. 4. Acute on chronic systolic CHF with ejection fraction of less than 15% with moderate pulmonary hypertension. 5. Coronary disease status post 3 cardiac stents. 6. Diabetes mellitus. 7. Volume overload. Plan: Patient started on Lasix drip by primary team. Low-salt diet and 1500 mL fluid resection. Maintain lokelma. Repeat potassium level this evening. Check bladder scan to rule out urinary retention. Check renal ultrasound. Avoid nephrotoxins. Thank you for the consultation. I will continue to follow the patient during his hospital stay.
[2022-04-11] MEDS: FUROSEMIDE 100 MG in SODIUM CHLORIDE 0.9% 90 ML IV SCH ×2 (12:40→20:53)
--- NOTE | 2022-04-11 12:40 | P.CRDCN ---
History of Present Illness History of present illness: This is a 66-year-old male with a past medical history significant for chronic kidney disease, coronary artery disease, heart failure, hypertension, hyperlipidemia, severe ischemic cardiomyopathy with EF <15% (previously refusing AICD), chronic left lower extremity venous ulcers with MRSA, and DVT, paroxysmal atrial fibrillation diagnosed 02/27/2022 in hospital, GI bleed (anticoagulation stopped in 03/2022). Patient follows in the office with Dr. Leblanc. We have been asked to see the patient in consultation for CHF. Patient examined at the bedside. Patient presented to the hospital from [facility] with worsening shortness of breath, bilateral lower extremity edema. He states he felt as if he had more fluid on him. He is not on any diuretics as an outpatient. He was initially on PO Lasix 60mg BID he was hospitalized 03-10-2022 to 03/23/2022 with [facility], acute GI bleed evaluation and his Eliquis and his Lasix and Aldactone was discontinued on Discharge. Patient was not receiving any Lasix at [facility]. This morning telemetry and EKG reviewed and patient appears to be in complete heart block with HR 50s. He denies any lightheadedness, dizziness, syncope or near syncope. He is currently on metoprolol succinate 50 mg daily. He was also started on IV Lasix. DIAGNOSTICS * EKG reveals sinus mechanism with 2nd degree AV Block, repeat EKG this morning appears to be complete heart block. * Chest xray congestive heart failure * Laboratory data: WBC 4.6; 9.3, platelets 117, sodium 135, potassium 5.7, BUN 61, serum and 2.1 * Current home cardiac medications include aspirin 81 mg daily, Lipitor 80 mg daily, Cozaar 25 mg daily, Imdur 30 mg daily, metoprolol succinate 50 mg daily, * Most recent echocardiogram obtained in December 2021 revealed ejection fraction less than 15% * Cardiac catheterization history: March 2018 revealing RCA occluded in the midportion with collaterals, 40-50% stenosis of the LAD, moderate diffuse disease of the circumflex. REVIEW OF SYSTEMS: At the time of my exam: CONSTITUTIONAL: Denies fever or chills. HEENT: Denies blurred vision, vision changes, or eye pain. Denies hemoptysis CARDIOVASCULAR: Denies chest pain. + orthopnea.+ PND. Denies palpitations +LE edema RESPIRATORY: +shortness of breath. GASTROINTESTINAL: Denies abdominal pain. Denies nausea or vomiting. HEMATOLOGIC: Denies bleeding disorders. GENITOURINARY: Denies any blood in urine. SKIN: Denies pruitis. Denies rash. PHYSICAL EXAM: VITAL SIGNS: Reviewed. GENERAL: Well-developed in no acute distress. HEENT: Head is normocephalic. Pupils are equal, round. Sclerae anicteric. Mucous membranes of the mouth are moist. Neck supple. JVD noted. LUNGS: Respirations even and unlabored. Lungs diminished to auscultation bilaterally. HEART: Regular rate and rhythm. S1 and S2 heard. ABDOMEN: Soft. Nondistended. Nontender. EXTREMITIES: Normal range of motion. No clubbing or cyanosis. Peripheral pulses intact. Severe lower extremity edema bilaterally up to thighs. Chronic left lower extremity wound. Currently wrapped with a dressing. NEUROLOGIC: Awake and alert. Oriented x 3. ASSESSMENT: Acute on chronic heart failure with reduced ejection fraction, EF < 15%, likely secondary to discontinuation of diuretics on 03/23/22 hospitalization Complete heart block, HR currently stable. Chronic kidney disease Hyperkalemia History of DVT Paroxysmal atrial fibrillation diagnosed in 02/2022, Eliquis discontinued 03/2022 secondary to possible GI bleed Coronary artery disease with RCA occluded in the midportion with collaterals, 4050 percent stenosis of the LAD and moderate diffuse disease of the circumflex from a cardiac catheter 03/2019 Severe ischemic cardiomyopathy, refusing AICD in the past Hypertension Hyperlipidemia PLAN: Start IV diuresis Discontinue beta tonya Hold all AV manuel blocking agents Unable to start Aldactone and ACEI/ARB secondary to renal function Continue to monitor kidney function. I/Os, daily weights Nephrology following consulted Wound team consulted for chronic venous stasis ulcers. Monitor heart rates/rhythm. If improvement, no pacemaker needed, however if continues to be in complete heart block likely will need pacemaker pending if infection in wounds is present. Further recommendations pending patient course Nurse practitioner note has been reviewed by physician. Signing provider agrees with the documented findings, assessment, and plan of care. Past Medical History Past Medical History: Coronary Artery Disease (CAD), Cancer, Heart Failure, Diabetes Mellitus, Deep Vein Thrombosis (DVT), Hyperlipidemia, Hypertension, Liver Disease, Myocardial Infarction ([place]), Prostate Disorder, Renal Disease, Skin Disorder Additional Past Medical History / Comment(s): Ischemic cardiomyopathy, chronic CHF, 10/26/21 DVT L lower extremity, IDDM type II, neuropathy bilaterl legs/feet, L leg wounds, BPH, CKD stage III, hyperuricemia, hepatic steatosis, choledoch olithiasis, eczema as child. Last Myocardial Infarction Date:: 02/12/2019 History of Any Multi-Drug Resistant Organisms: None Reported Past Surgical History: Heart Catheterization, Heart Catheterization With Stent, Orthopedic Surgery Additional Past Surgical History / Comment(s): skin cancer removed from nose August 2020 Past Anesthesia/Blood Transfusion Reactions: No Reported Reaction Date of Last Stent Placement:: 2012 Past Psychological History: Anxiety, Depression Smoking Status: Never smoker Past Alcohol Use History: Occasional Past Drug Use History: None Reported - Past Family History Mother Family Medical History: Coronary Artery Disease (CAD), Diabetes Mellitus, Myocardial Infarction ([place]) Father Family Medical History: Diabetes Mellitus, Renal Disease family Additional Family Medical History / Comment(s): Mother with history of diabetes mellitus and CAD, father with history of heart disease and diabetes Medications and Allergies Home Medications Medication Instructions Recorded Confirmed Type Acetaminophen Tab [Tylenol] 650 mg PO Q6H PRN 08/22/21 04/10/22 History Nitroglycerin Sl Tabs [Nitrostat] 0.4 mg SL Q5M PRN #30 tab 12/06/21 04/10/22 Rx Metoprolol Succinate (ER) [Toprol 50 mg PO DAILY@0900 01/16/22 04/10/22 History XL] Ferrous Sulfate [Iron (65 MG 325 mg PO DAILY@0900 02/07/22 04/10/22 History Elemental)] Lactulose [Cephulac] 20 gm PO DAILY PRN ml 03/19/22 04/10/22 Rx Acetaminophen-Codeine 300-30mg 1 tab PO Q4HR PRN 04/01/22 04/10/22 History [Tylenol w/codeine #3] Atorvastatin [Lipitor] 80 mg PO HS@2100 04/01/22 04/10/22 History FLUoxetine HCL [PROzac] 20 mg PO HS@2100 04/01/22 04/10/22 History Glucerna Shake 1 can PO BID@0900,1700 04/01/22 04/10/22 History Insulin Lispro [humaLOG Kwikpen] See Protocol SQ QID@07,12,,04/01/22 04/10/22 History Isosorbide Mononitrate ER [Imdur] 30 mg PO DAILY@0900 04/01/22 04/10/22 History Omeprazole [PriLOSEC] 40 mg PO DAILY@0600 04/01/22 04/10/22 History Sodium Bicarbonate Tab 650 mg PO Q48H 04/01/22 04/10/22 History Tamsulosin [Flomax] 0.4 mg PO HS@209904/01/22 04/10/22 History allopurinoL [Zyloprim] 100 mg PO HS@2100 04/01/22 04/10/22 History ALPRAZolam [Xanax] 0.25 mg PO TID PRN 04/10/22 04/10/22 History Methyl Salicylate/Menth/Camph 1 patch TOPICAL DAILY@0900 04/10/22 04/10/22 History [Salonpas 3.1%-6.0%-10.0% Patch] Allergies Allergy/AdvReac Type Severity Reaction Status Date / Time ciprofloxacin [From Cipro] Allergy Rash/Hives Verified 04/10/22 16:01 Physical Exam Vitals: Vital Signs Temp Pulse Pulse Resp BP BP Pulse Ox 04/11/22 04:00 97.6 F 72 16 117/67 92 L 04/11/22 02:00 65 18 04/11/22 00:00 97.8 F 67 18 112/72 96 04/10/22 20:00 97.9 F 69 17 110/66 95 04/10/22 15:59 72 04/10/22 15:29 67 04/10/22 13:50 97.5 F L 04/10/22 13:31 97.5 F L 52 L 20 115/77 93 L 04/10/22 13:22 97.5 F L Intake and Output 04/10/22 04/11/22 04/11/22 22:59 06:59 14:59 Other: Voiding Method Toilet Toilet # Voids 3 # Bowel Movements 1 Weight 90.718 kg 106.7 kg Results 04/11/22 07:44 04/11/22 07:44 Cardiac Enzymes 04/10/22 04/10/22 Range/Units 14:08 14:08 AST 20 (17-59) U/L Troponin I <0.012 (0.000-0.034) ng/mL Coagulation 04/10/22 Range/Units 14:08 PT 12.3 H (9.0-12.0) sec APTT 27.6 (22.0-30.0) sec CBC 04/10/22 Range/Units 14:08 WBC 4.3 (3.8-10.6) k/uL RBC 3.12 L (4.30-5.90) m/uL Hgb 10.1 L (13.0-17.5) gm/dL Hct 32.0 L (39.0-53.0) % Plt Count 145 L (150-450) k/uL Comprehensive Metabolic Panel 04/10/22 04/10/22 Range/Units 14:08 20:51 Sodium 135 L 135 L (137-145) mmol/L Potassium 6.1 H* 5.8 H (3.5-5.1) mmol/L Chloride 100 101 (98-107) mmol/L Carbon Dioxide 28 27 (22-30) mmol/L BUN 64 H 61 H (9-20) mg/dL Creatinine 2.05 H 2.11 H (0.66-1.25) mg/dL Glucose 166 H 145 H (74-99) mg/dL Calcium 8.5 8.7 (8.4-10.2) mg/dL AST 20 (17-59) U/L ALT 13 (4-49) U/L Alkaline Phosphatase 66 (38-126) U/L Total Protein 6.6 (6.3-8.2) g/dL Albumin 3.3 L (3.5-5.0) g/dL Current Medications Generic Name Dose Route Start Last Admin Trade Name Freq PRN Reason Stop Dose Admin Acetaminophen 650 mg 04/10/22 20:10 Acetaminophen Tab 325 Mg Tab PO Q6H PRN Mild Pain or Fever > 100.5 Acetaminophen/Codeine Phosphate 1 each 04/10/22 20:10 Acetaminophen-Codeine 300-30mg Tab PO Q4HR PRN Moderate to Severe Pain (4-10) Allopurinol 100 mg 04/10/22 21:00 04/10/22 22:49 Allopurinol 100 Mg Tab PO 100 mg HS@2100 VAN Administration Alprazolam 0.25 mg 04/10/22 20:10 04/10/22 22:49 Alprazolam 0.25 Mg Tab PO 0.25 mg TID PRN Administration Anxiety Atorvastatin Calcium 80 mg 04/10/22 21:00 04/10/22 22:49 Atorvastatin 80 Mg Tab PO 80 mg HS@2100 VAN Administration Ferrous Sulfate 325 mg 04/11/22 09:00 Ferrous Sulfate 325 Mg Tab PO DAILY@0900 [facility] Fluoxetine HCl 20 mg 04/10/22 21:00 04/10/22 22:49 Fluoxetine Hcl 20 Mg Cap PO 20 mg HS@2100 VAN Administration Insulin Aspart 0 unit 04/11/22 07:30 04/11/22 06:17 Insulin Aspart (Novolog) 100 Unit/Ml Vial SQ 2 unit ACHS [facility] Administration Protocol Isosorbide Mononitrate 30 mg 04/11/22 09:00 Isosorbide Mononitrate Er 30 Mg Tab.Er.24h PO DAILY@0900 [facility] Lactulose 20 gm 04/10/22 20:10 Lactulose 20 Gm/30 Ml Cup PO DAILY PRN Constipation Methyl Salicylate 1 applic 04/11/22 09:00 Methyl Salicylate-Menthol Oint (3 Oz Tube) TOPICAL DAILY@0900 [facility] Metoprolol Succinate 50 mg 04/11/22 09:00 Metoprolol Succinate (Er) 50 Mg Tab.Er.24h PO DAILY@0900 [facility] Naloxone HCl 0.2 mg 04/10/22 16:44 Naloxone 0.4 Mg/Ml 1 Ml Vial IV Q2M PRN Opioid Reversal Nitroglycerin 0.4 mg 04/10/22 20:10 Nitroglycerin Sl Tabs 0.4 Mg Tab SUBLINGUAL Q5M PRN Chest Pain Pantoprazole Sodium 40 mg 04/11/22 06:00 04/11/22 06:17 Pantoprazole 40 Mg Tablet PO 40 mg DAILY@0600 [facility] Administration Sodium Bicarbonate 650 mg 04/11/22 21:00 Sodium Bicarbonate Tab 650 Mg Tab PO Q48H [facility] Sodium Zirconium Cyclosilicate 10 gm 04/10/22 22:00 04/10/22 22:49 Sodium Zirconium Cyclosilicate 10 Gm Packet PO 04/11/22 22:01 10 gm TID [facility] Administration Tamsulosin HCl 0.4 mg 04/10/22 21:00 04/10/22 22:49 Tamsulosin 0.4 Mg Cap.Er.24h PO 0.4 mg HS@2100 VAN Administration Intake and Output 04/10/22 04/11/22 04/11/22 22:59 06:59 14:59 Other: Voiding Method Toilet Toilet # Voids 3 # Bowel Movements 1 Weight 90.718 kg 106.7 kg 04/10/22 14:08 04/10/22 20:51
--- NOTE | 2022-04-11 13:16 | US ---
EXAMINATION TYPE: US kidneys/renal and bladder DATE OF EXAM: 04/11/2022 COMPARISON: NONE CLINICAL HISTORY: ovi. Ovi, no renal history or symptoms EXAM MEASUREMENTS: Right Kidney: 9.6 x 4.4 x 5.2 cm Left Kidney: 9.0 x 4.0 x 5.0 cm Right Kidney: 1.6 x 1.4 x 1.1cm inferior pole cyst Left Kidney: limited views due to gas appear wnl Bladder: wnl Ascites seen within RUQ, LUQ and pelvis There is no evidence for hydronephrosis at this point in time. No nephrolithiasis is seen. No vonnie s are identified. The urinary bladder is anechoic. IMPRESSION: 1. No evidence for obstructive uropathy. Limited evaluation of the left kidney. 2. Abdominal ascites.
[2022-04-11 16:54] LABS: Glucose,Whole Blood 189 mg/dL (70-110)
[2022-04-11] MEDS ORDERED: ONDANSETRON 4 MG/2 ML VIAL IVP PRN (17:57)
[2022-04-11] MEDS ORDERED: MELATONIN 3 MG TABLET PO PRN (17:57)
[2022-04-11] MEDS ORDERED: CALCIUM CARBONATE 500 MG CHEWABLE PO PRN (17:57)
[2022-04-11 17:58] LABS: C Reactive Protein 1.7 mg/dL (<1.0); Potassium 5.2 mmol/L (3.5-5.1)
--- NOTE | 2022-04-11 17:59 | P.HPIM ---
History of Present Illness H&P Date: 04/11/22 Chief Complaint: Edema This is a pleasant 66-year-old patient, follows with Dr. Mike Escobar. Chronic stable medical conditions include CAD with stent, diabetes, hypertension, hyperlipidemia anxiety. CAD, hyperuricemia, left leg DVT in October 2021, CHF EF 20 -25% leg wounds. seen by ID and vascular. Wound culture - stenotrophomonas maltophilia. follow the wound care center. Patient currently at [facility] the [facility]. Patient has been off Lasix for a few days. Has worsening lower extremity edema going up to his abdomen. Edema has become significant last 4 days. Some shortness of breath. Decreased appetite. No fever no chills. Tired. Review of systems: GEN.: Tired, decreased appetite EYES: None HEENT: None NECK: None RESPIRATORY: As above CARDIOVASCULAR: As above GASTROINTESTINAL: None GENITOURINARY: None MUSCULOSKELETAL: Some joint pains LYMPHATICS: None HEMATOLOGICAL: None PSYCHIATRY: None NEUROLOGICAL: Peripheral neuropathy Past medical history to include: CAD with stent, diabetes, hypertension, hyperlipidemia, skin cancer on the nose in August 2020, anxiety, left leg common femoral DVT October 2021, hyperuricemia, hepatic steatosis, CHF EF 20-25%. 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 Alcohol rarely. Currently at [facility] in the [place] Family history: Diabetes, CAD Physical examination: VITAL SIGNS: 97.5, 52, 20, 115/77, 93% on room air GENERAL: Reclining in bed, awake, tired EYES: Pupils equal. Conjunctiva normal. HEENT: External appearance of nose and ears normal, oral cavity grossly normal. NECK: JVD possibly raised; masses not palpable. HEART: First and second heart sounds are normal; significant edema up to the abdominal wall LUNGS: Respiratory rate increased; decreased breath sound . ABDOMEN: Soft, nontender, liver spleen not palpable, no masses palpable. PSYCH: [Alert and oriented x3; mood and affect anxious LYMPHATICS: No lymph node palpable neck and axilla Musculoskeletal: Evidence of OA DERMATOLOGICAL: Dressing on the left leg -wounds INVESTIGATIONS, reviewed in the clinical context: White count 4.6 hemoglobin 9.3 platelets 17 sodium 135 potassium 5.7 BUN 61 and creatinine 2.18 EKG tracing personally reviewed by de-complete heart block Chest x-ray film personally reviewed by me-cardiomegaly, pulmonary edema Previous studies: Creatinine [03/21/2022]: 2.0 2-D echocardiogram: EF 20-25%. Left lower extremity venous Doppler: DVT in the common femoral vein. Gallbladder ultrasound: Gallbladder filled with stones. Possible hepatic steatosis. Arterial Doppler results discussed with Dr. Mike: No evidence of vascular compromise Assessment and plan: -Acute congestive heart failure exacerbation from systolic dysfunction EF 20- 25%, precipitated by complete heart block Start Lasix drip at 10 mg an hour. Strict I's and O's. -Complete heart block Telemetry. Cardiology consulted. Toprol-XL held -Chronic kidney disease stage III be from diabetic kidney disease and nephrosclerosis baseline creatinine around 2 Follow-up with nephrology -Chronic Esophagitis, gastritis, duodenitis, secondary to aspirin eliquis. Bowel discontinued PPI - chronic medical debility. Multifactorial. PT OT. - chronic multiple wounds painful left lower extremity left calf and left ankle likely from venous ulcers from DVT. Follow with wound care team/Dr. saleem, ID. -Choledocholithiasis. Asymptomatic -CAD with a history of stent Aspirin will be started 81 mg it was held previously for GI bleed. -Diabetes mellitus type 2, chronically on insulin Follow Accu-Cheks and sliding scale insulin. -Hyperlipidemia Lipitor 80 mg daily -Essential hypertension Toprol-XL 50 mg -Hyperkalemia from CK D Lokelma. Also on Lasix drip -Anxiety not otherwise specified Xanax 0.25 mg by mouth twice a day -Hyperuricemia allopurinol 100 mg daily -no code Telemetry. Cardiology consulted. Nephrology consulted. Wound care. ID consulted to give clearance for pacemaker if required. Hold beta tonya. Strict I's and O's. Lasix drip. Lokelma. Discussed with patient. Past Medical History Past Medical History: Coronary Artery Disease (CAD), Cancer, Heart Failure, Diabetes Mellitus, Deep Vein Thrombosis (DVT), Hyperlipidemia, Hypertension, Liver Disease, Myocardial Infarction ([place]), Prostate Disorder, Renal Disease, Skin Disorder Additional Past Medical History / Comment(s): Ischemic cardiomyopathy, chronic CHF, 10/26/21 DVT L lower extremity, IDDM type II, neuropathy bilaterl legs/feet, L leg wounds, BPH, CKD stage III, hyperuricemia, hepatic steatosis, choledocholithiasis, eczema as child. Last Myocardial Infarction Date:: 02/12/2019 History of Any Multi-Drug Resistant Organisms: None Reported Past Surgical History: Heart Catheterization, Heart Catheterization With Stent, Orthopedic Surgery Additional Past Surgical History / Comment(s): skin cancer removed from nose August 2020 Past Anesthesia/Blood Transfusion Reactions: No Reported Reaction Date of Last Stent Placement:: 2012 Past Psychological History: Anxiety, Depression Smoking Status: Never smoker Past Alcohol Use History: Occasional Past Drug Use History: None Reported - Past Family History Mother Family Medical History: Coronary Artery Disease (CAD), Diabetes Mellitus, Myocardial Infarction ([place]) Father Family Medical History: Diabetes Mellitus, Renal Disease family Additional Family Medical History / Comment(s): Mother with history of diabetes mellitus and CAD, father with history of heart disease and diabetes Medications and Allergies Home Medications Medication Instructions Recorded Confirmed Type Acetaminophen Tab [Tylenol] 650 mg PO Q6H PRN 08/22/21 04/10/22 History Nitroglycerin Sl Tabs [Nitrostat] 0.4 mg SL Q5M PRN #30 tab 12/06/21 04/10/22 Rx Metoprolol Succinate (ER) [Toprol 50 mg PO DAILY@0900 01/16/22 04/10/22 History XL] Ferrous Sulfate [Iron (65 MG 325 mg PO DAILY@0900 02/07/22 04/10/22 History Elemental)] Lactulose [Cephulac] 20 gm PO DAILY PRN ml 03/19/22 04/10/22 Rx Acetaminophen-Codeine 300-30mg 1 tab PO Q4HR PRN 04/01/22 04/10/22 History [Tylenol w/codeine #3] Atorvastatin [Lipitor] 80 mg PO HS@2100 04/01/22 04/10/22 History FLUoxetine HCL [PROzac] 20 mg PO HS@2100 04/01/22 04/10/22 History Glucerna Shake 1 can PO BID@0900,1700 04/01/22 04/10/22 History Insulin Lispro [humaLOG Kwikpen] See Protocol SQ QID@07,12,17,21 04/01/22 04/10/22 History Isosorbide Mononitrate ER [Imdur] 30 mg PO DAILY@0900 04/01/22 04/10/22 History Omeprazole [PriLOSEC] 40 mg PO DAILY@0600 04/01/22 04/10/22 History Sodium Bicarbonate Tab 650 mg PO Q48H 04/01/22 04/10/22 History Tamsulosin [Flomax] 0.4 mg PO HS@2100 04/01/22 04/10/22 History allopurinoL [Zyloprim] 100 mg PO HS@2100 04/01/22 04/10/22 History ALPRAZolam [Xanax] 0.25 mg PO TID PRN 04/10/22 04/10/22 History Methyl Salicylate/Menth/Camph 1 patch TOPICAL DAILY@0900 04/10/22 04/10/22 History [Salonpas 3.1%-6.0%-10.0% Patch] Allergies Allergy/AdvReac Type Severity Reaction Status Date / Time ciprofloxacin [From Cipro] Allergy Rash/Hives Verified 04/10/22 16:01 Physical Exam Vitals: Vital Signs Temp Pulse Pulse Resp BP BP Pulse Ox 04/11/22 08:37 92 L 04/11/22 07:46 97.9 F 56 L 18 124/66 96 04/11/22 04:00 97.6 F 72 16 117/67 92 L 04/11/22 02:00 65 18 04/11/22 00:00 97.8 F 67 18 112/72 96 04/10/22 20:00 97.9 F 69 17 110/66 95 04/10/22 15:59 72 04/10/22 15:29 67 04/10/22 13:50 97.5 F L 04/10/22 13:31 97.5 F L 52 L 20 115/77 93 L 04/10/22 13:22 97.5 F L Intake and Output 04/10/22 04/11/22 04/11/22 22:59 06:59 14:59 Intake Total 180 Balance 180 Intake: Oral 180 Other: Voiding Method Toilet Toilet Toilet External Catheter # Voids 3 # Bowel Movements 1 Weight 90.718 kg 106.7 kg Results CBC & Chem 7: 04/11/22 07:44 04/11/22 07:44 Labs: Abnormal Lab Results - Last 24 Hours (Table) 04/10/22 04/10/22 04/10/22 Range/Units 14:08 14:08 14:08 RBC 3.12 L (4.30-5.90) m/uL Hgb 10.1 L (13.0-17.5) gm/dL Hct 32.0 L (39.0-53.0) % MCV 102.5 H (80.0-100.0) fL RDW 19.2 H (11.5-15.5) % Plt Count 145 L (150-450) k/uL Lymphocytes # 0.4 L (1.0-4.8) k/uL Macrocytosis PT 12.3 H (9.0-12.0) sec INR 1.2 H (<1.2) Sodium 135 L (137-145) mmol/L Potassium 6.1 H* (3.5-5.1) mmol/L BUN 64 H (9-20) mg/dL Creatinine 2.05 H (0.66-1.25) mg/dL Glucose 166 H (74-99) mg/dL POC Glucose (mg/dL) (70-110) mg/dL Albumin 3.3 L (3.5-5.0) g/dL 04/10/22 04/10/22 04/11/22 Range/Units 20:23 20:51 06:04 RBC (4.30-5.90) m/uL Hgb (13.0-17.5) gm/dL Hct (39.0-53.0) % MCV (80.0-100.0) fL RDW (11.5-15.5) % Plt Count (150-450) k/uL Lymphocytes # (1.0-4.8) k/uL Macrocytosis PT (9.0-12.0) sec INR (<1.2) Sodium 135 L (137-145) mmol/L Potassium 5.8 H (3.5-5.1) mmol/L BUN 61 H (9-20) mg/dL Creatinine 2.11 H (0.66-1.25) mg/dL Glucose 145 H (74-99) mg/dL POC Glucose (mg/dL) 191 H 178 H (70-110) mg/dL Albumin (3.5-5.0) g/dL 04/11/22 04/11/22 Range/Units 07:44 07:44 RBC 2.87 L (4.30-5.90) m/uL Hgb 9.3 L (13.0-17.5) gm/dL Hct 29.7 L (39.0-53.0) % MCV 103.6 H (80.0-100.0) fL RDW 19.7 H (11.5-15.5) % Plt Count 117 L (150-450) k/uL Lymphocytes # 0.5 L (1.0-4.8) k/uL Macrocytosis Marked A PT (9.0-12.0) sec INR (<1.2) Sodium 135 L (137-145) mmol/L Potassium 5.7 H (3.5-5.1) mmol/L BUN 61 H (9-20) mg/dL Creatinine 2.18 H (0.66-1.25) mg/dL Glucose 149 H (74-99) mg/dL POC Glucose (mg/dL) (70-110) mg/dL Albumin (3.5-5.0) g/dL Thrombosis Risk Factor Assmnt - Choose All That Apply Any of the Below Risk Factors Present?: Yes Each Factor Represents 1 point: Obesity (BMI >25), Swollen legs (current) Each Risk Factor Represents 2 Points: Age 61-74 years Each Risk Factor Represents 3 Points: History of DVT/PE Thrombosis Risk Factor Assessment Total Risk Factor Score: 7 Thrombosis Risk Factor Assessment Level: High Risk
[2022-04-11 20:32] LABS: Glucose,Whole Blood 149 mg/dL (70-110)
[2022-04-11] MEDS: TAMSULOSIN 0.4 MG CAP.ER.24H PO SCH (20:59)
[2022-04-11] MEDS: ATORVASTATIN 80 MG TAB PO SCH (20:59)
[2022-04-11] MEDS: SODIUM BICARBONATE TAB 650 MG TAB PO SCH (20:59)
[2022-04-11] MEDS: allopurinoL 100 MG TAB PO SCH (20:59)
[2022-04-11] MEDS: FLUoxetine HCL 20 MG CAP PO SCH (20:59)
--- NOTE | 2022-04-11 23:03 | P.CONS ---
History of Present Illness - Reason for Consult Consult date: 04/11/22 Wounds, infection Requesting physician: Derick Johnson - Chief Complaint Increasing shortness of breath x few days - History of Present Illness Patient is a 66-year male with a past medical history significant for chronic nonhealing wound especially left lower extremity recent admission to the hospital and the culture positive for beta-hemolytic group B strep treated with the cefazolin followed by Keflex patient has not been brought to the ER yesterday afternoon for evaluation of increasing shortness of breath that apparently has been getting worse for the last few days apparently the patient mention has been taken off his Lasix and has developed significant edema to the lower extremity with associated increasing shortness of breath the patient denies having any chest pain denies significant cough or sputum production no abdominal pain no diarrhea patient denies having any worsening pain to lower extremity wound especially left leg, and also developed a wound to the right big toe patient presented to the hospital has been afebrile and no fever has been recorded subsequently patient did have a normal white count did have elevated BUN/creatinine patient evaluated by wound care also has been obtained from the right big toe wound infectious disease was consulted concerning for infection and need for antibiotic therapy and there was also question of possible patient needing pacemaker placement patient did have a chest x-ray correlate for CHF umesh kelly interstitial pneumonitis, Review of Systems Positive point has been mentioned in the HPI rest of the systems are negative Past Medical History Past Medical History: Coronary Artery Disease (CAD), Cancer, Heart Failure, Diabetes Mellitus, Deep Vein Thrombosis (DVT), Hyperlipidemia, Hypertension, Liver Disease, Myocardial Infarction ([place]), Prostate Disorder, Renal Disease, Skin Disorder Additional Past Medical History / Comment(s): Ischemic cardiomyopathy, chronic CHF, 10/26/21 DVT L lower extremity, IDDM type II, neuropathy bilaterl legs/feet, L leg wounds, BPH, CKD stage III, hyperuricemia, hepatic steatosis, choledocholithiasis, eczema as child. Last Myocardial Infarction Date:: 02/12/2019 History of Any Multi-Drug Resistant Organisms: None Reported Past Surgical History: Heart Catheterization, Heart Catheterization With Stent, Orthopedic Surgery Additional Past Surgical History / Comment(s): skin cancer removed from nose August 2020 Past Anesthesia/Blood Transfusion Reactions: No Reported Reaction Date of Last Stent Placement:: 2012 Past Psychological History: Anxiety, Depression Smoking Status: Never smoker Past Alcohol Use History: Occasional Past Drug Use History: None Reported - Past Family History Mother Family Medical History: Coronary Artery Disease (CAD), Diabetes Mellitus, Myocardial Infarction ([place]) Father Family Medical History: Diabetes Mellitus, Renal Disease family Additional Family Medical History / Comment(s): Mother with history of diabetes mellitus and CAD, father with history of heart disease and diabetes Medications and Allergies Home Medications Medication Instructions Recorded Confirmed Type Acetaminophen Tab [Tylenol] 650 mg PO Q6H PRN 08/22/21 04/10/22 History Nitroglycerin Sl Tabs [Nitrostat] 0.4 mg SL Q5M PRN #30 tab 12/06/21 04/10/22 Rx Ferrous Sulfate [Iron (65 MG 325 mg PO DAILY@0900 02/07/22 04/10/22 History Elemental)] Lactulose [Cephulac] 20 gm PO DAILY PRN ml 03/19/22 04/10/22 Rx Atorvastatin [Lipitor] 80 mg PO HS@209904/01/22 04/10/22 History FLUoxetine HCL [PROzac] 20 mg PO HS@209904/01/22 04/10/22 History Glucerna Shake 1 can PO BID@0900,1700 04/01/22 04/10/22 History Insulin Lispro [humaLOG Kwikpen] See Protocol SQ QID@07,12,,04/01/22 04/10/22 History Isosorbide Mononitrate ER [Imdur] 30 mg PO DAILY@0900 04/01/22 04/10/22 History Omeprazole [PriLOSEC] 40 mg PO DAILY@0600 04/01/22 04/10/22 History Sodium Bicarbonate Tab 650 mg PO Q48H 04/01/22 04/10/22 History Tamsulosin [Flomax] 0.4 mg PO HS@209904/01/22 04/10/22 History allopurinoL [Zyloprim] 100 mg PO HS@209904/01/22 04/10/22 History Methyl Salicylate/Menth/Camph 1 patch TOPICAL DAILY@0900 04/10/22 04/10/22 History [Salonpas 3.1%-6.0%-10.0% Patch] ALPRAZolam [Xanax] 0.25 mg PO TID PRN #9 tab 04/16/22 Rx Acetaminophen-Codeine 300-30mg 1 tab PO Q4HR PRN #18 tab 04/16/22 Rx [Tylenol w/codeine #3] Amoxic-Pot Clav 875-125Mg 1 tab PO BID #14 tab 04/16/22 Rx [Augmentin 875-125] Aspirin 81 mg PO DAILY tab 04/16/22 Rx Collagenase [Santyl Ointment] 1 applic TOPICAL DAILY each 04/16/22 Rx Furosemide [Lasix] 60 mg PO BID #1 tab 04/16/22 Rx Allergies Allergy/AdvReac Type Severity Reaction Status Date / Time ciprofloxacin [From Cipro] Allergy Rash/Hives Verified 04/10/22 16:01 Physical Exam Vitals: Vital Signs Temp Pulse Resp BP Pulse Ox 04/11/22 13:33 62 04/11/22 11:00 97.3 F L 62 20 131/65 98 04/11/22 08:37 92 L 04/11/22 07:46 97.9 F 56 L 18 124/66 96 04/11/22 04:00 97.6 F 72 16 117/67 92 L 04/11/22 02:00 65 18 04/11/22 00:00 97.8 F 67 18 112/72 96 04/10/22 20:00 97.9 F 69 17 110/66 95 Intake and Output 04/11/22 04/11/22 04/11/22 06:59 14:59 22:59 Intake Total 180 Output Total 400 Balance -220 Intake: Oral 180 Output: Urine 400 Other: Voiding Method Toilet Toilet Urinal External Catheter # Voids 3 # Bowel Movements 1 Weight 106.7 kg GENERAL DESCRIPTION: Elderly male lying in bed, no distress. No tachypnea or accessory muscle of respiration use. HEENT: Shows Pallor , no scleral icterus. Oral mucous membrane is dry. No pharyngeal erythema or thrush NECK: Trachea central, no thyromegaly. LUNGS: Unlabored breathing. Clear to auscultation anteriorly. No wheeze or crackle. HEART: S1, S2, regular rate and rhythm. No loud murmur ABDOMEN: Soft, no tenderness , guarding or rigidity, no organomegaly EXTREMITIES: Left leg with multiple wounds with minimal slough tissue he did have swelling but no significant redness or foul-smelling drainage right big toe wound with some surrounding redness. SKIN: No rash, no masses palpable. NEUROLOGICAL: The patient is awake, alert, oriented x3, mood and affect normal. Results CBC & Chem 7: 04/15/22 04:00 04/16/22 07:47 Labs: Abnormal Lab Results - Last 24 Hours (Table) 04/10/22 04/10/22 04/11/22 Range/Units 20:23 20:51 06:04 RBC (4.30-5.90) m/uL Hgb (13.0-17.5) gm/dL Hct (39.0-53.0) % MCV (80.0-100.0) fL RDW (11.5-15.5) % Plt Count (150-450) k/uL Lymphocytes # (1.0-4.8) k/uL Macrocytosis Sodium 135 L (137-145) mmol/L Potassium 5.8 H (3.5-5.1) mmol/L BUN 61 H (9-20) mg/dL Creatinine 2.11 H (0.66-1.25) mg/dL Glucose 145 H (74-99) mg/dL POC Glucose (mg/dL) 191 H 178 H (70-110) mg/dL C-Reactive Protein (<1.0) mg/dL 04/11/22 04/11/22 04/11/22 Range/Units 07:44 07:44 11:39 RBC 2.87 L (4.30-5.90) m/uL Hgb 9.3 L (13.0-17.5) gm/dL Hct 29.7 L (39.0-53.0) % MCV 103.6 H (80.0-100.0) fL RDW 19.7 H (11.5-15.5) % Plt Count 117 L (150-450) k/uL Lymphocytes # 0.5 L (1.0-4.8) k/uL Macrocytosis Marked A Sodium 135 L (137-145) mmol/L Potassium 5.7 H (3.5-5.1) mmol/L BUN 61 H (9-20) mg/dL Creatinine 2.18 H (0.66-1.25) mg/dL Glucose 149 H (74-99) mg/dL POC Glucose (mg/dL) 197 H (70-110) mg/dL C-Reactive Protein (<1.0) mg/dL 04/11/22 04/11/22 Range/Units 16:49 17:26 RBC (4.30-5.90) m/uL Hgb (13.0-17.5) gm/dL Hct (39.0-53.0) % MCV (80.0-100.0) fL RDW (11.5-15.5) % Plt Count (150-450) k/uL Lymphocytes # (1.0-4.8) k/uL Macrocytosis Sodium (137-145) mmol/L Potassium 5.2 H (3.5-5.1) mmol/L BUN (9-20) mg/dL Creatinine (0.66-1.25) mg/dL Glucose (74-99) mg/dL POC Glucose (mg/dL) 189 H (70-110) mg/dL C-Reactive Protein 1.7 H (<1.0) mg/dL Microbiology - Last 24 Hours (Table) 04/11/22 10:53 Wound Culture - Preliminary Toe - Right First 04/11/22 10:53 Anaerobic Culture - Preliminary Toe - Right First Assessment and Plan (1) Chronic ulcer of left leg Status: Acute Code(s): L97.929 - NON-PRS CHRONIC ULC UNSP PRT OF L LOW LEG W UNSP SEVERITY SNOMED Code(s): 88860217 (2) Diabetic infection of right foot Status: Acute Code(s): E11.628 - TYPE 2 DIABETES MELLITUS WITH OTHER SKIN COMPLICATIONS; L08.9 - LOCAL INFECTION OF THE SKIN AND SUBCUTANEOUS TISSUE, UNSP SNOMED Code(s): 20510885 Plan: 1patient with a chronic nonhealing wound especially left lower extremity in this patient wounds did have some slough tissue no significant surrounding redness did have some swelling more likely due to underlying fluid overload status patient with no fever or elevated white count low clinical suspicion for underlying infection or risk of bacteremia. 2patient did have a right second toe wound with minimal erythema cellulitis bilateral excluded culture has been obtained those will be followed. 3we will obtain a CRP and a blood culture which if negative patient will be less risk infection post pacemaker placement 4continue local wound care with Santyl to the wound with slough tissue followed by John wrap for compression We will follow on clinical condition and cultures to further adjust medication if needed Thank you for this consultation will follow this patient along with you Time with Patient: Greater than 30
[2022-04-12 06:04] LABS: Glucose,Whole Blood 89 mg/dL (70-110)
[2022-04-12] MEDS: INSULIN ASPART (NovoLOG) 100 UNIT/ML VIAL SQ SCH ×4 (06:18→20:16)
[2022-04-12] MEDS: FUROSEMIDE 100 MG in SODIUM CHLORIDE 0.9% 90 ML IV SCH ×2 (06:19→15:32)
[2022-04-12] MEDS: PANTOPRAZOLE 40 MG TABLET PO SCH (06:20)
[2022-04-12] MEDS: ASPIRIN 81 MG PO SCH (08:51)
[2022-04-12] MEDS: ISOSORBIDE MONONITRATE ER 30 MG TAB.ER.24H PO SCH (08:51)
[2022-04-12] MEDS: FERROUS SULFATE 325 MG TAB PO SCH (08:51)
[2022-04-12] MEDS: METHYL SALICYLATE-MENTHOL OINT (3 OZ TUBE) TOPICAL SCH (08:53)
[2022-04-12 08:57] LABS: Calcium 8.3 mg/dL (8.4-10.2); Magnesium 2.2 mg/dL (1.6-2.3); Potassium 4.6 mmol/L (3.5-5.1)
--- NOTE | 2022-04-12 11:39 | P.PN ---
Subjective Patient is seen in follow-up for acute kidney injury on chronic kidney disease. Renal function is stable. Maintained on Lasix drip. Nonoliguric. Bladder scans have been high but he refused straight catheter Rivera catheter insertion yesterday. On room air. Blood pressure stable. No vomiting or diarrhea. Vital signs are stable. General: Awake. No acute distress. HEENT: Head exam is unremarkable. LUNGS: Breath sounds decreased. HEART: Rate and Rhythm are regular. ABDOMEN: Soft, no distention. EXTREMITITES: 2+ edema. Objective - Vital Signs Vital signs: Vital Signs Temp 97.8 F 04/12/22 08:50 Pulse 81 04/12/22 08:50 Resp 18 04/12/22 08:50 BP 118/62 04/12/22 08:50 Pulse Ox 93 L 04/12/22 08:50 FiO2 Intake & Output 04/11/22 04/12/22 04/12/22 18:59 06:59 18:59 Intake Total 180 816.500 960 Output Total 900 700 300 Balance -720 116.500 660 Weight 105.5 kg Intake: IV 100 Furosemide 100 mg In 100 Sodium Chloride 0.9% 90 ml @ 10 MG/HR 10 mls/hr IV .Q10H VAN Rx#: [id number] Intake, IV Titration 176.500 Amount Furosemide 100 mg In 176.500 Sodium Chloride 0.9% 90 ml @ 10 MG/HR 10 mls/hr IV .Q10H VAN Rx#: [id number] Oral 180 540 960 Output: Urine 900 700 300 Other: Voiding Method Toilet Toilet Toilet Urinal Urinal Urinal External Catheter - Labs CBC & Chem 7: 04/11/22 07:44 04/12/22 07:54 Labs: Abnormal Lab Results - Last 24 Hours (Table) 04/11/22 04/11/22 04/11/22 Range/Units 11:39 16:49 17:26 Potassium 5.2 H (3.5-5.1) mmol/L BUN (9-20) mg/dL Creatinine (0.66-1.25) mg/dL POC Glucose (mg/dL) 197 H 189 H (70-110) mg/dL Calcium (8.4-10.2) mg/dL C-Reactive Protein 1.7 H (<1.0) mg/dL 04/11/22 04/12/22 Range/Units 20:30 07:54 Potassium (3.5-5.1) mmol/L BUN 59 H (9-20) mg/dL Creatinine 2.17 H (0.66-1.25) mg/dL POC Glucose (mg/dL) 149 H (70-110) mg/dL Calcium 8.3 L (8.4-10.2) mg/dL C-Reactive Protein (<1.0) mg/dL Microbiology - Last 24 Hours (Table) 04/11/22 10:53 Gram Stain - Preliminary Toe - Right First Wound Culture - Preliminary Group D Enterococcus 04/11/22 10:53 Anaerobic Culture - Preliminary Toe - Right First Assessment and Plan Plan: Assessment: 1. Mild acute kidney injury mostly prerenal secondary to cardiorenal syndrome. Creatinine stable at 2.17 today. No evidence of hydronephrosis noted on kidney ultrasound. 2. Chronic kidney disease stage IIIB secondary to diabetic kidney disease and nephrosclerosis with baseline creatinine 1.5-2. 3. Hyperkalemia secondary to chronic kidney disease. Better. 4. Acute on chronic systolic CHF with ejection fraction of less than 15% with moderate pulmonary hypertension. 5. Coronary disease status post 3 cardiac stents. 6. Diabetes mellitus. 7. Volume overload. 8. Urinary retention. On Flomax. Plan: Maintain Lasix drip. Low-salt diet and 1500 mL fluid resection. Monitor bladder scans and insert Rivera catheter if has persistent retention. Discussed with patient that urinary retention continue to infections and worsening renal failure. Check renal ultrasound. Avoid nephrotoxins.
--- NOTE | 2022-04-12 11:41 | P.PN ---
Subjective This is a 66-year-old male with a past medical history significant for chronic kidney disease, coronary artery disease, heart failure, hypertension, hyperlipidemia, severe ischemic cardiomyopathy with EF <15% (previously refusing AICD), chronic left lower extremity venous ulcers with MRSA, and DVT, paroxysmal atrial fibrillation diagnosed 02/27/2022 in hospital, GI bleed (anticoagulation stopped in 03/2022). Patient follows in the office with Dr. Leblanc. We have been asked to see the patient in consultation for CHF. Patient examined at the [facility]. Patient presented to the hospital from [facility] with worsening shortness of breath, bilateral lower extremity edema. He states he felt as if he had more fluid on him. He is not on any diuretics as an outpatient. He was initially on PO Lasix 60mg BID he was hospitalized 03-10-2022 to 03/23/2022 with [facility], acute GI bleed evaluation and his Eliquis and his Lasix and Aldactone was discontinued on Discharge. Patient was not receiving any Lasix at [facility]. This morning telemetry and EKG reviewed and patient appears to be in complete heart block with HR 50s. He denies any lightheadedness, dizziness, syncope or near syncope. He is currently on metoprolol succinate 50 mg daily. He was also started on IV Lasix. DIAGNOSTICS * Most recent echocardiogram obtained in December 2021 revealed ejection fraction less than 15% * Cardiac catheterization history: March 2018 revealing RCA occluded in the midportion with collaterals, 40-50% stenosis of the LAD, moderate diffuse disease of the circumflex. 04/12/2022 Patient seen and examined at bedside, continues to have some shortness of breath and lower extremity edema. He denies any chest pain. His beta tonya was discontinued yesterday his heart rates have improved is currently in sinus rhythm with heart rates in the 80s. 1.6L urine output. Decreased weight noted. He was initially Lasix drip per primary. PHYSICAL EXAM: VITAL SIGNS: Reviewed. GENERAL: Well-developed in no acute distress. HEENT: Head is normocephalic. Neck supple. LUNGS: Respirations even and unlabored. Lungs diminished to auscultation bilaterally. HEART: Regular rate and rhythm. S1 and S2 heard. ABDOMEN: Soft. Nondistended. Nontender. EXTREMITIES: Normal range of motion. No clubbing or cyanosis. Peripheral pulses intact. Severe lower extremity edema bilaterally up to thighs. Chronic left lower extremity wound. Currently wrapped with a dressing. NEUROLOGIC: Awake and alert. Oriented x 3. ASSESSMENT: Acute on chronic heart failure with reduced ejection fraction, EF < 15%, likely secondary to discontinuation of diuretics on 03/23/22 hospitalization Complete heart block on admission, beta tonya discontinued, improved. currently in sinus rhythm HR 80s Chronic venous stasis ulcers Chronic kidney disease Hyperkalemia History of DVT Paroxysmal atrial fibrillation diagnosed in 02/2022, Eliquis discontinued 03/2022 secondary to possible GI bleed Coronary artery disease with RCA occluded in the midportion with collaterals, 4050 percent stenosis of the LAD and moderate diffuse disease of the circumflex from a cardiac catheter 03/2019 Severe ischemic cardiomyopathy, refusing AICD in the past Hypertension Hyperlipidemia PLAN: Continue IV diuresis Hold all AV manuel blocking agents Unable to start Aldactone and ACEI/ARB secondary to renal function Continue to monitor kidney function. I/Os, daily weights Nephrology following consulted Monitor heart rates/rhythm. Currently improved, in sinus rhythm HR 80s, no indication for pacemaker at this time. Further recommendations pending patient course Nurse practitioner note has been reviewed by physician. Signing provider agrees with the documented findings, assessment, and plan of care. Objective - Vital Signs Vital signs: Vital Signs Temp 97.8 F 04/12/22 08:50 Pulse 81 04/12/22 08:50 Resp 18 04/12/22 08:50 BP 118/62 04/12/22 08:50 Pulse Ox 93 L 04/12/22 08:50 FiO2 Intake & Output 04/11/22 04/12/22 04/12/22 18:59 06:59 18:59 Intake Total 180 816.500 960 Output Total 900 700 700 Balance -720 116.500 260 Weight 105.5 kg Intake: IV 100 Furosemide 100 mg In 100 Sodium Chloride 0.9% 90 ml @ 10 MG/HR 10 mls/hr IV .Q10H VAN Rx#: [id number] Intake, IV Titration 176.500 Amount Furosemide 100 mg In 176.500 Sodium Chloride 0.9% 90 ml @ 10 MG/HR 10 mls/hr IV .Q10H VAN Rx#: [id number] Oral 180 540 960 Output: Urine 900 700 700 Other: Voiding Method Toilet Toilet Toilet Urinal Urinal Urinal External Catheter - Labs CBC & Chem 7: 04/11/22 07:44 04/12/22 07:54 Labs: Abnormal Lab Results - Last 24 Hours (Table) 04/11/22 04/11/22 04/11/22 Range/Units 11:39 16:49 17:26 Potassium 5.2 H (3.5-5.1) mmol/L BUN (9-20) mg/dL Creatinine (0.66-1.25) mg/dL POC Glucose (mg/dL) 197 H 189 H (70-110) mg/dL Calcium (8.4-10.2) mg/dL C-Reactive Protein 1.7 H (<1.0) mg/dL 04/11/22 04/12/22 Range/Units 20:30 07:54 Potassium (3.5-5.1) mmol/L BUN 59 H (9-20) mg/dL Creatinine 2.17 H (0.66-1.25) mg/dL POC Glucose (mg/dL) 149 H (70-110) mg/dL Calcium 8.3 L (8.4-10.2) mg/dL C-Reactive Protein (<1.0) mg/dL Microbiology - Last 24 Hours (Table) 04/11/22 10:53 Gram Stain - Preliminary Toe - Right First Wound Culture - Preliminary Group D Enterococcus 04/11/22 10:53 Anaerobic Culture - Preliminary Toe - Right First
[2022-04-12 11:52] LABS: Glucose,Whole Blood 123 mg/dL (70-110)
[2022-04-12] MEDS: COLLAGENASE 250 UNIT/GM OINTMENT 30 GM TUBE TOPICAL SCH (14:10)
[2022-04-12] MEDS: AMPICILLIN-SULBACTAM 3 GM in SODIUM CHLORIDE 0.9% 100 ML IVPB SCH ×2 (15:11→23:04)
--- NOTE | 2022-04-12 15:43 | P.PN ---
Progress Note - Text Progress Note Date: 04/12/22 Chief Complaint: Edema This is a pleasant 66-year-old patient, follows with Dr. Mike Escobar. Chronic stable medical conditions include CAD with stent, diabetes, hypertension, hyperlipidemia anxiety. CAD, hyperuricemia, left leg DVT in October 2021, CHF EF 20 -25% leg wounds. seen by ID and vascular. Wound culture - stenotrophomonas maltophilia. follow the wound care center. Patient currently at [facility] on the [facility]. Patient has been off Lasix for a few days. Has worsening lower extremity edema going up to his abdomen. Edema has become significant last 4 days. Some shortness of breath. Decreased appetite. No fever no chills. Tired. Admitted with CHF exacerbation EF 20-25%, started on IV Lasix drip. Also some complete heart block. Beta tonya discontinued. 04/12/2022: Remains on Lasix drip 10 mg an hour. Making urine. Lower extremity wounds don't appear to be infected per ID. Santyl dressing. Patient is back in sinus rhythm after stopping beta tonya. Had his breakfast. Active Medications Acetaminophen (Acetaminophen Tab 325 Mg Tab) 650 mg PO Q6H PRN PRN Reason: Mild Pain or Fever > 100.5 Acetaminophen/Codeine Phosphate (Acetaminophen-Codeine 300-30mg Tab) 1 each PO Q4HR PRN PRN Reason: Moderate to Severe Pain (4-10) Last Admin: 04/11/22 17:10 Dose: 1 each Allopurinol (Allopurinol 100 Mg Tab) 100 mg PO HS@2100 [facility] Last Admin: 04/11/22 20:59 Dose: 100 mg Alprazolam (Alprazolam 0.25 Mg Tab) 0.25 mg PO TID PRN PRN Reason: Anxiety Last Admin: 04/10/22 22:49 Dose: 0.25 mg Aspirin (Aspirin 81 Mg) 81 mg PO DAILY [facility] Last Admin: 04/12/22 08:51 Dose: 81 mg Atorvastatin Calcium (Atorvastatin 80 Mg Tab) 80 mg PO HS@2100 [facility] Last Admin: 04/11/22 20:59 Dose: 80 mg Calcium Carbonate/Glycine (Calcium Carbonate 500 Mg Chewable) 1,000 mg PO Q4HR PRN PRN Reason: Dyspepsia Collagenase (Collagenase 250 Unit/Gm Ointment 30 Gm Tube) 1 applic TOPICAL DAILY [facility]; Protocol Last Admin: 04/12/22 14:10 Dose: 1 applic Ferrous Sulfate (Ferrous Sulfate 325 Mg Tab) 325 mg PO DAILY@0900 [facility] Last Admin: 04/12/22 08:51 Dose: 325 mg Fluoxetine HCl (Fluoxetine Hcl 20 Mg Cap) 20 mg PO HS@2100 [facility] Last Admin: 04/11/22 20:59 Dose: 20 mg Furosemide 100 mg/ Sodium (Chloride) 100 mls @ 10 mls/hr IV .Q10H [facility] Last Admin: 04/12/22 15:32 Dose: 10 mg/hr, 10 mls/hr Ampicillin Sodium/Sulbactam (Sodium 3 gm/ Sodium Chloride) 100 mls @ 200 mls/hr IVPB Q8HR [facility]; Protocol Last Admin: 04/12/22 15:11 Dose: 200 mls/hr Insulin Aspart (Insulin Aspart (Novolog) 100 Unit/Ml Vial) 0 unit SQ ACHS [facility]; Protocol Last Admin: 04/12/22 12:07 Dose: Not Given Isosorbide Mononitrate (Isosorbide Mononitrate Er 30 Mg Tab.Er.24h) 30 mg PO DAILY@0900 [facility] Last Admin: 04/12/22 08:51 Dose: 30 mg Lactulose (Lactulose 20 Gm/30 Ml Cup) 20 gm PO DAILY PRN PRN Reason: Constipation Melatonin (Melatonin 3 Mg Tablet) 3 mg PO HS PRN PRN Reason: Insomnia Methyl Salicylate (Methyl Salicylate-Menthol Oint (3 Oz Tube)) 1 applic TOPICAL DAILY@0900 [facility] Last Admin: 04/12/22 08:53 Dose: Not Given Naloxone HCl (Naloxone 0.4 Mg/Ml 1 Ml Vial) 0.2 mg IV Q2M PRN PRN Reason: Opioid Reversal Nitroglycerin (Nitroglycerin Sl Tabs 0.4 Mg Tab) 0.4 mg SUBLINGUAL Q5M PRN PRN Reason: Chest Pain Ondansetron HCl (Ondansetron 4 Mg/2 Ml Vial) 4 mg IVP Q8HR PRN PRN Reason: Nausea And Vomiting Pantoprazole Sodium (Pantoprazole 40 Mg Tablet) 40 mg PO DAILY@0600 [facility] Last Admin: 04/12/22 06:20 Dose: 40 mg Sodium Bicarbonate (Sodium Bicarbonate Tab 650 Mg Tab) 650 mg PO Q48H [facility] Last Admin: 12/07/22 20:59 Dose: 650 mg Tamsulosin HCl (Tamsulosin 0.4 Mg Cap.Er.24h) 0.4 mg PO HS@2100 [facility] Last Admin: 04/11/22 20:59 Dose: 0.4 mg Past medical history to include: CAD with stent, diabetes, hypertension, hyperlipidemia, skin cancer on the nose in August 2020, anxiety, left leg common femoral DVT October 2021, hyperuricemia, hepatic steatosis, CHF EF 20-25%. 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 Alcohol rarely. Currently at [facility] in [facility] Family history: Diabetes, CAD Physical examination: VITAL SIGNS: 97.8, 76, 17, 137/82, 98% room air GENERAL: Reclining in bed, awake, tired EYES: Pupils equal. Conjunctiva normal. HEENT: External appearance of nose and ears normal, oral cavity grossly normal. NECK: JVD possibly raised; masses not palpable. HEART: First and second heart sounds are normal; significant edema up to the abdominal wall LUNGS: Respiratory rate increased; decreased breath sound . ABDOMEN: Soft, nontender, liver spleen not palpable, no masses palpable. PSYCH: [Alert and oriented x3; mood and affect anxious LYMPHATICS: No lymph node palpable neck and axilla Musculoskeletal: Evidence of OA DERMATOLOGICAL: Dressing on the left leg -wounds INVESTIGATIONS, reviewed in the clinical context: 04/12/2022: Potassium 4.6. Creatinine 2.7 White count 4.6 hemoglobin 9.3 platelets 17 sodium 135 potassium 5.7 BUN 61 and creatinine 2.18 EKG tracing personally reviewed by me-complete heart block Chest x-ray film personally reviewed by me-cardiomegaly, pulmonary edema Previous studies: Creatinine [03/21/2022]: 2.0 2-D echocardiogram: EF 20-25%. Left lower extremity venous Doppler: DVT in the common femoral vein. Gallbladder ultrasound: Gallbladder filled with stones. Possible hepatic steatosis. Arterial Doppler results discussed with Dr. Mike: No evidence of vascular compromise Assessment and plan: -Acute congestive heart failure exacerbation from systolic dysfunction EF 20- 25%,: Slow to respond Start Lasix drip at 10 mg an hour. Strict I's and O's. -Complete heart block: Better with Toprol XL being discontinued Telemetry. Follow with cardiology -Chronic kidney disease stage III be from diabetic kidney disease and nephrosclerosis baseline creatinine around 2 Follow-up with nephrology -Chronic Esophagitis, gastritis, duodenitis, secondary to aspirin eliquis. Bowel discontinued PPI - chronic medical debility. Multifactorial. PT OT. - chronic multiple wounds painful left lower extremity left calf and left ankle likely from venous ulcers from DVT. Follow with wound care team/Dr. saleem, ID. -Choledocholithiasis. Asymptomatic -CAD with a history of stent Aspirin will be started 81 mg it was held previously for GI bleed. -Diabetes mellitus type 2, chronically on insulin Follow Accu-Cheks and sliding scale insulin. -Hyperlipidemia Lipitor 80 mg daily -Essential hypertension Toprol-XL 50 mg -Hyperkalemia from [facility]. Also on Lasix drip -Anxiety not otherwise specified Xanax 0.25 mg by mouth twice a day -Hyperuricemia allopurinol 100 mg daily -no code Telemetry. Wound care. Lasix drip. Local wound care per ID. Discussed with patient. Follow labs closely.
[2022-04-12 16:35] LABS: Glucose,Whole Blood 180 mg/dL (70-110)
[2022-04-12 20:05] LABS: Glucose,Whole Blood 158 mg/dL (70-110)
[2022-04-12] MEDS: TAMSULOSIN 0.4 MG CAP.ER.24H PO SCH (20:16)
[2022-04-12] MEDS: ATORVASTATIN 80 MG TAB PO SCH (20:16)
[2022-04-12] MEDS: FLUoxetine HCL 20 MG CAP PO SCH (20:16)
[2022-04-12] MEDS: allopurinoL 100 MG TAB PO SCH (20:16)
[2022-04-12] MEDS: ALPRAZolam 0.25 MG TAB PO PRN (20:16)
[2022-04-12] MEDS: Acetaminophen-Codeine 300-30mg TAB PO PRN (22:13)
[2022-04-13] MEDS: FUROSEMIDE 100 MG in SODIUM CHLORIDE 0.9% 90 ML IV SCH (00:27)
[2022-04-13] MEDS: Acetaminophen-Codeine 300-30mg TAB PO PRN (05:32)
[2022-04-13] MEDS: PANTOPRAZOLE 40 MG TABLET PO SCH (05:32)
[2022-04-13 05:59] LABS: Glucose,Whole Blood 102 mg/dL (70-110)
[2022-04-13] MEDS: INSULIN ASPART (NovoLOG) 100 UNIT/ML VIAL SQ SCH ×4 (06:00→19:50)
[2022-04-13] MEDS: ISOSORBIDE MONONITRATE ER 30 MG TAB.ER.24H PO SCH (09:13)
[2022-04-13] MEDS: FERROUS SULFATE 325 MG TAB PO SCH (09:13)
[2022-04-13] MEDS: ASPIRIN 81 MG PO SCH (09:13)
[2022-04-13] MEDS: AMPICILLIN-SULBACTAM 3 GM in SODIUM CHLORIDE 0.9% 100 ML IVPB SCH ×3 (09:14→23:59)
[2022-04-13] MEDS: FUROSEMIDE 40 MG TAB PO SCH ×2 (09:16→15:45)
[2022-04-13] MEDS: METHYL SALICYLATE-MENTHOL OINT (3 OZ TUBE) TOPICAL SCH (09:17)
[2022-04-13 11:31] LABS: Calcium 8.2 mg/dL (8.4-10.2); Magnesium 2.1 mg/dL (1.6-2.3); Potassium 4.4 mmol/L (3.5-5.1)
--- NOTE | 2022-04-13 11:35 | P.PN ---
Subjective Patient is seen in follow-up for acute kidney injury on chronic kidney disease. Renal function is stable. Maintained on Lasix drip. Nonoliguric. Bladder scans have been high but he refuses straight catheterization or Rivera catheter insertion. On room air. Blood pressure stable. No vomiting or diarrhea. Vital signs are stable. General: Awake. No acute distress. HEENT: Head exam is unremarkable. LUNGS: Breath sounds decreased. HEART: Rate and Rhythm are regular. ABDOMEN: Soft, no distention. EXTREMITITES: 1+ edema. Objective - Vital Signs Vital signs: Vital Signs Temp 98.7 F 04/13/22 09:20 Pulse 87 04/13/22 09:20 Resp 17 04/13/22 09:20 BP 144/87 04/13/22 09:20 Pulse Ox 94 L 04/13/22 09:20 FiO2 Intake & Output 04/12/22 04/13/22 04/13/22 18:59 06:59 18:59 Intake Total 1052.167 269.167 118 Output Total 900 2520 450 Balance 152.167 -2250.833 -332 Intake: Intake, IV Titration 92.167 89.167 Amount Furosemide 100 mg In 92.167 89.167 Sodium Chloride 0.9% 90 ml @ 10 MG/HR 10 mls/hr IV .Q10H [facility] Rx#: [id number] Oral 960 180 118 Output: Urine 900 1800 450 Post Void Residual 720 Other: Voiding Method Toilet Toilet Toilet Urinal Urinal Urinal # Voids 1 - Labs CBC & Chem 7: 04/11/22 07:44 04/13/22 10:29 Labs: Abnormal Lab Results - Last 24 Hours (Table) 04/12/22 04/12/22 04/12/22 Range/Units 11:51 16:33 20:03 Sodium (137-145) mmol/L BUN (9-20) mg/dL Creatinine (0.66-1.25) mg/dL Glucose (74-99) mg/dL POC Glucose (mg/dL) 123 H 180 H 158 H (70-110) mg/dL Calcium (8.4-10.2) mg/dL 04/13/22 Range/Units 10:29 Sodium 136 L (137-145) mmol/L BUN 55 H (9-20) mg/dL Creatinine 2.01 H (0.66-1.25) mg/dL Glucose 139 H (74-99) mg/dL POC Glucose (mg/dL) (70-110) mg/dL Calcium 8.2 L (8.4-10.2) mg/dL Microbiology - Last 24 Hours (Table) 04/11/22 17:34 Blood Culture - Preliminary Blood No Growth after 24 hours 04/11/22 10:53 Gram Stain - Preliminary Toe - Right First Wound Culture - Preliminary Group D Enterococcus Assessment and Plan Plan: Assessment: 1. Mild acute kidney injury mostly prerenal secondary to cardiorenal syndrome. Creatinine stable at 2.17 today. No evidence of hydronephrosis noted on kidney ultrasound. 2. Chronic kidney disease stage IIIB secondary to diabetic kidney disease and nephrosclerosis with baseline creatinine 1.5-2. 3. Hyperkalemia secondary to chronic kidney disease. Better. 4. Acute on chronic systolic CHF with ejection fraction of less than 15% with moderate pulmonary hypertension. 5. Coronary disease status post 3 cardiac stents. 6. Diabetes mellitus. 7. Volume overload. 8. Urinary retention. On Flomax. Plan: Lasix drip stopped. Now on oral Lasix 40 mg twice daily which can be continued. Low-salt diet and 1500 mL fluid resection. Discussed with patient that urinary retention can lead to infections and worsening renal failure. Avoid nephrotoxins. Repeat BMP and magnesium level 2-3 days postdischarge. Follow up outpatient in 1 week.
[2022-04-13 11:50] LABS: Glucose,Whole Blood 208 mg/dL (70-110)
[2022-04-13] MEDS: COLLAGENASE 250 UNIT/GM OINTMENT 30 GM TUBE TOPICAL SCH (13:23)
--- NOTE | 2022-04-13 13:29 | P.PN ---
Subjective This is a 66-year-old male with a past medical history significant for chronic kidney disease, coronary artery disease, heart failure, hypertension, hyperlipidemia, severe ischemic cardiomyopathy with EF <15% (previously refusing AICD), chronic left lower extremity venous ulcers with MRSA, and DVT, paroxysmal atrial fibrillation diagnosed 02/27/2022 in hospital, GI bleed (anticoagulation stopped in 03/2022). Patient follows in the office with Dr. Leblanc. We have been asked to see the patient in consultation for CHF. Patient examined at the [facility]. Patient presented to the hospital from [facility] with worsening shortness of breath, bilateral lower extremity edema. He states he felt as if he had more fluid on him. He is not on any diuretics as an outpatient. He was initially on PO Lasix 60mg BID he was hospitalized 03-10-2022 to 03/23/2022 with [facility], acute GI bleed evaluation and his Eliquis and his Lasix and Aldactone was discontinued on Discharge. Patient was not receiving any Lasix at [facility]. This morning telemetry and EKG reviewed and patient appears to be in complete heart block with HR 50s. He denies any lightheadedness, dizziness, syncope or near syncope. He is currently on metoprolol succinate 50 mg daily. He was also started on IV Lasix. DIAGNOSTICS * Most recent echocardiogram obtained in December 2021 revealed ejection fraction less than 15% * Cardiac catheterization history: March 2018 revealing RCA occluded in the midportion with collaterals, 40-50% stenosis of the LAD, moderate diffuse disease of the circumflex. 04/13/2022 Patient seen and examined at bedside, his breathing has improved. He denies any shortness of breath. His LE edema has improved He denies any chest pain. His beta tonya was discontinued on 04/11 and his heart rates have improved is currently in sinus rhythm with heart rates in the 80s. 3.4L urine output.He is currently on a Lasix drip per primary. PHYSICAL EXAM: VITAL SIGNS: Reviewed. GENERAL: Well-developed in no acute distress. HEENT: Head is normocephalic. Neck supple. LUNGS: Respirations even and unlabored. Lungs diminished to auscultation bilaterally. HEART: Regular rate and rhythm. S1 and S2 heard. ABDOMEN: Soft. Nondistended. Nontender. EXTREMITIES: Normal range of motion. No clubbing or cyanosis. Peripheral pulses intact. Severe lower extremity edema bilaterally up to thighs. Chronic left lower extremity wound. Currently wrapped with a dressing. NEUROLOGIC: Awake and alert. Oriented x 3. ASSESSMENT: Acute on chronic heart failure with reduced ejection fraction, EF < 15%, likely secondary to discontinuation of diuretics on 03/23/22 hospitalization Complete heart block on admission, beta tonya discontinued, improved. currently in sinus rhythm HR 80s Chronic venous stasis ulcers Chronic kidney disease Hyperkalemia History of DVT Paroxysmal atrial fibrillation diagnosed in 02/2022, Eliquis discontinued 03/2022 secondary to possible GI bleed Coronary artery disease with RCA occluded in the midportion with collaterals, 4050 percent stenosis of the LAD and moderate diffuse disease of the circumflex from a cardiac catheter 03/2019 Severe ischemic cardiomyopathy, refusing AICD in the past Hypertension Hyperlipidemia PLAN: Recommend transitioning to PO Lasix 40mg BID Hold all AV manuel blocking agents, discontinue home metoprolol succinate. Heart rates and rhythm has improved, in sinus rhythm HR 80s, no indication for pacemaker at this time. Unable to start Aldactone and ACEI/ARB secondary to renal function Discharge pending clearance from primary and other consultants. Ok to discharge from cardiology perspective. Please re-consult if needed. Outpatient followup with Dr. Leblanc Nurse practitioner note has been reviewed by physician. Signing provider agrees with the documented findings, assessment, and plan of care. Objective - Vital Signs Vital signs: Vital Signs Temp 98.7 F 04/13/22 09:20 Pulse 79 04/13/22 11:35 Resp 18 04/13/22 11:35 BP 119/72 04/13/22 11:35 Pulse Ox 93 L 04/13/22 11:35 FiO2 Intake & Output 04/12/22 04/13/22 04/13/22 18:59 06:59 18:59 Intake Total 1052.167 269.167 118 Output Total 900 2520 450 Balance 152.167 -2250.833 -332 Intake: Intake, IV Titration 92.167 89.167 Amount Furosemide 100 mg In 92.167 89.167 Sodium Chloride 0.9% 90 ml @ 10 MG/HR 10 mls/hr IV .Q10H [facility] Rx#: [id number] Oral 960 180 118 Output: Urine 900 1800 450 Post Void Residual 720 Other: Voiding Method Toilet Toilet Toilet Urinal Urinal Urinal # Voids 1 - Labs CBC & Chem 7: 04/11/22 07:44 04/13/22 10:29 Labs: Abnormal Lab Results - Last 24 Hours (Table) 04/12/22 04/12/22 04/13/22 Range/Units 16:33 20:03 10:29 Sodium 136 L (137-145) mmol/L BUN 55 H (9-20) mg/dL Creatinine 2.01 H (0.66-1.25) mg/dL Glucose 139 H (74-99) mg/dL POC Glucose (mg/dL) 180 H 158 H (70-110) mg/dL Calcium 8.2 L (8.4-10.2) mg/dL 04/13/22 Range/Units 11:48 Sodium (137-145) mmol/L BUN (9-20) mg/dL Creatinine (0.66-1.25) mg/dL Glucose (74-99) mg/dL POC Glucose (mg/dL) 208 H (70-110) mg/dL Calcium (8.4-10.2) mg/dL Microbiology - Last 24 Hours (Table) 04/11/22 17:34 Blood Culture - Preliminary Blood No Growth after 24 hours 04/11/22 10:53 Gram Stain - Preliminary Toe - Right First Wound Culture - Preliminary Group D Enterococcus
[2022-04-13 16:31] LABS: Glucose,Whole Blood 190 mg/dL (70-110)
[2022-04-13] MEDS: allopurinoL 100 MG TAB PO SCH (19:46)
[2022-04-13] MEDS: ATORVASTATIN 80 MG TAB PO SCH (19:46)
[2022-04-13] MEDS: FLUoxetine HCL 20 MG CAP PO SCH (19:46)
[2022-04-13] MEDS: TAMSULOSIN 0.4 MG CAP.ER.24H PO SCH (19:46)
[2022-04-13] MEDS: SODIUM BICARBONATE TAB 650 MG TAB PO SCH (19:46)
[2022-04-13 19:51] LABS: Glucose,Whole Blood 153 mg/dL (70-110)
--- NOTE | 2022-04-13 22:38 | P.PN ---
Progress Note - Text Progress Note Date: 04/13/22 Chief Complaint: Edema This is a pleasant 66-year-old patient, follows with Dr. Mike Escobar. Chronic stable medical conditions include CAD with stent, diabetes, hypertension, hyperlipidemia anxiety. CAD, hyperuricemia, left leg DVT in October 2021, CHF EF 20 -25% leg wounds. seen by ID and vascular. Wound culture - stenotrophomonas maltophilia. follow the wound care center. Patient currently at [facility] on the [facility]. Patient has been off Lasix for a few days. Has worsening lower extremity edema going up to his abdomen. Edema has become significant last 4 days. Some shortness of breath. Decreased appetite. No fever no chills. Tired. Admitted with CHF exacerbation EF 20-25%, started on IV Lasix drip. Also some complete heart block. Beta tonya discontinued. 04/12/2022: Remains on Lasix drip 10 mg an hour. Making urine. Lower extremity wounds don't appear to be infected per ID. Santyl dressing. Patient is back in sinus rhythm after stopping beta tonya. Had his breakfast. 04/13/2022: Up in a chair. Taken off Lasix drip. Has been in good negative fluid balance. Discussed with ID. Could be swished over to oral Augmentin. Remains in sinus rhythm. Discussed with case advocate. Hoping to return to [facility] today. Oral intake fair. Active Medications Acetaminophen (Acetaminophen Tab 325 Mg Tab) 650 mg PO Q6H PRN PRN Reason: Mild Pain or Fever > 100.5 Acetaminophen/Codeine Phosphate (Acetaminophen-Codeine 300-30mg Tab) 1 each PO Q4HR PRN PRN Reason: Moderate to Severe Pain (4-10) Last Admin: 04/13/22 05:32 Dose: 1 each Allopurinol (Allopurinol 100 Mg Tab) 100 mg PO HS@2100 [facility] Last Admin: 04/13/22 19:46 Dose: 100 mg Alprazolam (Alprazolam 0.25 Mg Tab) 0.25 mg PO TID PRN PRN Reason: Anxiety Last Admin: 04/12/22 20:16 Dose: 0.25 mg Aspirin (Aspirin 81 Mg) 81 mg PO DAILY [facility] Last Admin: 04/13/22 09:13 Dose: 81 mg Atorvastatin Calcium (Atorvastatin 80 Mg Tab) 80 mg PO HS@2100 [facility] Last Admin: 04/13/22 19:46 Dose: 80 mg Calcium Carbonate/Glycine (Calcium Carbonate 500 Mg Chewable) 1,000 mg PO Q4HR PRN PRN Reason: Dyspepsia Collagenase (Collagenase 250 Unit/Gm Ointment 30 Gm Tube) 1 applic TOPICAL DAILY [facility]; Protocol Last Admin: 04/13/22 13:23 Dose: 1 applic Ferrous Sulfate (Ferrous Sulfate 325 Mg Tab) 325 mg PO DAILY@0900 [facility] Last Admin: 04/13/22 09:13 Dose: 325 mg Fluoxetine HCl (Fluoxetine Hcl 20 Mg Cap) 20 mg PO HS@2100 [facility] Last Admin: 04/13/22 19:46 Dose: 20 mg Furosemide (Furosemide 40 Mg Tab) 40 mg PO BID@0900,1600 [facility] Last Admin: 04/13/22 15:45 Dose: 40 mg Ampicillin Sodium/Sulbactam (Sodium 3 gm/ Sodium Chloride) 100 mls @ 200 mls/hr IVPB Q8HR [facility]; Protocol Last Admin: 04/13/22 15:45 Dose: 200 mls/hr Insulin Aspart (Insulin Aspart (Novolog) 100 Unit/Ml Vial) 0 unit SQ ACHS [facility]; Protocol Last Admin: 04/13/22 19:50 Dose: 2 unit Isosorbide Mononitrate (Isosorbide Mononitrate Er 30 Mg Tab.Er.24h) 30 mg PO DAILY@09 [facility] Last Admin: 04/13/22 09:13 Dose: 30 mg Lactulose (Lactulose 20 Gm/30 Ml Cup) 20 gm PO DAILY PRN PRN Reason: Constipation Melatonin (Melatonin 3 Mg Tablet) 3 mg PO HS PRN PRN Reason: Insomnia Methyl Salicylate (Methyl Salicylate-Menthol Oint (3 Oz Tube)) 1 applic TOPICAL DAILY@09 [facility] Last Admin: 04/13/22 09:17 Dose: Not Given Naloxone HCl (Naloxone 0.4 Mg/Ml 1 Ml Vial) 0.2 mg IV Q2M PRN PRN Reason: Opioid Reversal Nitroglycerin (Nitroglycerin Sl Tabs 0.4 Mg Tab) 0.4 mg SUBLINGUAL Q5M PRN PRN Reason: Chest Pain Ondansetron HCl (Ondansetron 4 Mg/2 Ml Vial) 4 mg IVP Q8HR PRN PRN Reason: Nausea And Vomiting Pantoprazole Sodium (Pantoprazole 40 Mg Tablet) 40 mg PO DAILY@0600 [facility] Last Admin: 04/13/22 05:32 Dose: 40 mg Sodium Bicarbonate (Sodium Bicarbonate Tab 650 Mg Tab) 650 mg PO Q48H [facility] Last Admin: 04/13/22 19:46 Dose: 650 mg Tamsulosin HCl (Tamsulosin 0.4 Mg Cap.Er.24h) 0.4 mg PO HS@2100 [facility] Last Admin: 04/13/22 19:46 Dose: 0.4 mg Past medical history to include: CAD with stent, diabetes, hypertension, hyperlipidemia, skin cancer on the nose in August 2020, anxiety, left leg common femoral DVT October 2021, hyperuricemia, hepatic steatosis, CHF EF 20-25%. 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 Alcohol rarely. Currently at [facility] in [facility] Family history: Diabetes, CAD Physical examination: VITAL SIGNS: Afebrile, 85, 17, 135/81, 95% room air GENERAL: Reclining in chair, comfortable EYES: Pupils equal. Conjunctiva normal. HEENT: External appearance of nose and ears normal, oral cavity grossly normal. NECK: JVD possibly raised; masses not palpable. HEART: First and second heart sounds are normal; significant edema up to the abdominal wall LUNGS: Respiratory rate increased; decreased breath sound . ABDOMEN: Soft, nontender, liver spleen not palpable, no masses palpable. PSYCH: [Alert and oriented x3; mood and affect anxious LYMPHATICS: No lymph node palpable neck and axilla Musculoskeletal: Evidence of OA DERMATOLOGICAL: Dressing on the left leg -wounds INVESTIGATIONS, reviewed in the clinical context: Wound culture: Enterococcus faecalis/VRE 04/13/2022: Potassium 4.4 BUN 55 creatinine 2.01 04/12/2022: Potassium 4.6. Creatinine 2.7 White count 4.6 hemoglobin 9.3 platelets 17 sodium 135 potassium 5.7 BUN 61 and creatinine 2.18 EKG tracing personally reviewed by me-complete heart block Chest x-ray film personally reviewed by me-cardiomegaly, pulmonary edema Previous studies: Creatinine [03/21/2022]: 2.0 2-D echocardiogram: EF 20-25%. Left lower extremity venous Doppler: DVT in the common femoral vein. Gallbladder ultrasound: Gallbladder filled with stones. Possible hepatic steatosis. Arterial Doppler results discussed with Dr. Mike: No evidence of vascular compromise Assessment and plan: -Acute congestive heart failure exacerbation from systolic dysfunction EF 20- 25%,: Better Changed over to oral Lasix 40 mg twice a day Strict I's and O's. -Complete heart block: Better with Toprol XL being discontinued: Gone back into sinus rhythm corrected. Keep patient off beta tonya. 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 Bowel discontinued PPI - chronic medical debility. Multifactorial. PT OT. - chronic multiple wounds painful left lower extremity left calf and left ankle likely from venous ulcers from DVT. Cultures positive for VRE/Enterococcus faecalis IV Unasyn. Changed to Augmentin upon discharge. -Choledocholithiasis. Asymptomatic -CAD with a history of stent Aspirin will be started 81 mg it was held previously for GI bleed. -Diabetes mellitus type 2, chronically on insulin Follow Accu-Cheks and sliding scale insulin. -Hyperlipidemia Lipitor 80 mg daily -Essential hypertension Toprol-XL 50 mg -Hyperkalemia from [facility]. Also on Lasix drip -Anxiety not otherwise specified Xanax 0.25 mg by mouth twice a day -Hyperuricemia allopurinol 100 mg daily -no code J from IV Lasix to by mouth Lasix. Discussed with ID. Can be changed over to Augmentin. Total time spent today about 40 minutes. Over 25 minutes spent in discussion. Also discussed with ID.
[2022-04-13] MEDS ORDERED: COLLAGENASE 250 UNIT/GM OINTMENT 30 GM TUBE TOPICAL SCH ×2 (23:30→23:45)
[2022-04-14] MEDS: ALPRAZolam 0.25 MG TAB PO PRN ×2 (00:34→20:06)
[2022-04-14] MEDS: Acetaminophen-Codeine 300-30mg TAB PO PRN ×2 (00:34→09:50)
[2022-04-14 06:03] LABS: Glucose,Whole Blood 76 mg/dL (70-110)
[2022-04-14] MEDS: INSULIN ASPART (NovoLOG) 100 UNIT/ML VIAL SQ SCH ×4 (06:18→19:59)
[2022-04-14] MEDS: PANTOPRAZOLE 40 MG TABLET PO SCH (06:50)
[2022-04-14] MEDS: AMPICILLIN-SULBACTAM 3 GM in SODIUM CHLORIDE 0.9% 100 ML IVPB SCH ×3 (09:45→23:50)
[2022-04-14] MEDS: ISOSORBIDE MONONITRATE ER 30 MG TAB.ER.24H PO SCH (09:45)
[2022-04-14] MEDS: COLLAGENASE 250 UNIT/GM OINTMENT 30 GM TUBE TOPICAL SCH (09:45)
[2022-04-14] MEDS: FERROUS SULFATE 325 MG TAB PO SCH (09:45)
[2022-04-14] MEDS: ASPIRIN 81 MG PO SCH (09:45)
[2022-04-14] MEDS: FUROSEMIDE 40 MG TAB PO SCH ×2 (09:45→17:36)
[2022-04-14] MEDS: METHYL SALICYLATE-MENTHOL OINT (3 OZ TUBE) TOPICAL SCH (09:46)
--- NOTE | 2022-04-14 10:45 | P.PN ---
Subjective Patient is seen in follow-up for acute kidney injury on chronic kidney disease. Renal function stable as of yesterday. Maintained on oral Lasix. Nonoliguric. Bladder scans have been high but he refuses straight catheterization or Rivera catheter insertion. On room air. Blood pressure stable. No vomiting or diarrhea. Vital signs are stable. General: Awake. No acute distress. HEENT: Head exam is unremarkable. LUNGS: Breath sounds decreased. HEART: Rate and Rhythm are regular. ABDOMEN: Soft, no distention. EXTREMITITES: 1+ edema. Objective - Vital Signs Vital signs: Vital Signs Temp 97.8 F 04/14/22 09:45 Pulse 91 04/14/22 09:45 Resp 18 04/14/22 09:45 BP 129/67 04/14/22 09:45 Pulse Ox 95 04/14/22 09:45 FiO2 Intake & Output 04/13/22 04/14/22 04/14/22 18:59 06:59 18:59 Intake Total 236 240 Output Total 450 450 Balance -214 -210 Weight 106.3 kg Intake: Oral 236 240 Output: Urine 450 450 Other: Voiding Method Toilet Toilet Urinal Urinal - Labs CBC & Chem 7: 04/11/22 07:44 04/13/22 10:29 Labs: Abnormal Lab Results - Last 24 Hours (Table) 04/13/22 04/13/22 04/13/22 Range/Units 10:29 11:48 16:29 Sodium 136 L (137-145) mmol/L BUN 55 H (9-20) mg/dL Creatinine 2.01 H (0.66-1.25) mg/dL Glucose 139 H (74-99) mg/dL POC Glucose (mg/dL) 208 H 190 H (70-110) mg/dL Calcium 8.2 L (8.4-10.2) mg/dL 04/13/22 Range/Units 19:48 Sodium (137-145) mmol/L BUN (9-20) mg/dL Creatinine (0.66-1.25) mg/dL Glucose (74-99) mg/dL POC Glucose (mg/dL) 153 H (70-110) mg/dL Calcium (8.4-10.2) mg/dL Microbiology - Last 24 Hours (Table) 04/11/22 17:34 Blood Culture - Preliminary Blood No Growth after 48 hours 04/11/22 10:53 Gram Stain - Final Toe - Right First Wound Culture - Final Enterococcus faecalis VRE 04/11/22 10:53 Anaerobic Culture - Preliminary Toe - Right First Assessment and Plan Plan: Assessment: 1. Mild acute kidney injury mostly prerenal secondary to cardiorenal syndrome. Creatinine stable at 2.01 yesterday. No evidence of hydronephrosis noted on kidney ultrasound. 2. Chronic kidney disease stage IIIB secondary to diabetic kidney disease and nephrosclerosis with baseline creatinine 1.5-2. 3. Hyperkalemia secondary to chronic kidney disease. Better. 4. Acute on chronic systolic CHF with ejection fraction of less than 15% with moderate pulmonary hypertension. 5. Coronary disease status post 3 cardiac stents. 6. Diabetes mellitus. 7. Volume overload. Improved with diuresis. 8. Urinary retention. On Flomax. Plan: Maintain Lasix. Low-salt diet and 1500 mL fluid resection. Discussed with patient that urinary retention can lead to infections and worsening renal failure. Avoid nephrotoxins. Repeat BMP and magnesium level 2-3 days postdischarge. Follow up outpatient in 1 week.
[2022-04-14 12:00] LABS: Glucose,Whole Blood 171 mg/dL (70-110)
--- NOTE | 2022-04-14 16:03 | P.PN ---
Progress Note - Text Progress Note Date: 04/14/22 Chief Complaint: Edema This is a pleasant 66-year-old patient, follows with Dr. Mike Escobar. Chronic stable medical conditions include CAD with stent, diabetes, hypertension, hyperlipidemia anxiety. CAD, hyperuricemia, left leg DVT in October 2021, CHF EF 20 -25% leg wounds. seen by ID and vascular. Wound culture - stenotrophomonas maltophilia. follow the wound care center. Patient currently at [facility] on the [facility]. Patient has been off Lasix for a few days. Has worsening lower extremity edema going up to his abdomen. Edema has become significant last 4 days. Some shortness of breath. Decreased appetite. No fever no chills. Tired. Admitted with CHF exacerbation EF 20-25%, started on IV Lasix drip. Also some complete heart block. Beta tonya discontinued. 04/12/2022: Remains on Lasix drip 10 mg an hour. Making urine. Lower extremity wounds don't appear to be infected per ID. Santyl dressing. Patient is back in sinus rhythm after stopping beta tonya. Had his breakfast. 04/13/2022: Up in a chair. Taken off Lasix drip. Has been in good negative fluid balance. Discussed with ID. Could be swished over to oral Augmentin. Remains in sinus rhythm. Discussed with disease case manager. Hoping to return to [facility] today. Oral intake fair. 04/14/2022: Up in a chair. Oral intake fair. Did appear to when necessary review with her insurance company. Patient return as LTAC with intermittent therapy. Active Medications Acetaminophen (Acetaminophen Tab 325 Mg Tab) 650 mg PO Q6H PRN PRN Reason: Mild Pain or Fever > 100.5 Acetaminophen/Codeine Phosphate (Acetaminophen-Codeine 300-30mg Tab) 1 each PO Q4HR PRN PRN Reason: Moderate to Severe Pain (4-10) Last Admin: 04/14/22 09:50 Dose: 1 each Allopurinol (Allopurinol 100 Mg Tab) 100 mg PO HS@2100 [facility] Last Admin: 04/13/22 19:46 Dose: 100 mg Alprazolam (Alprazolam 0.25 Mg Tab) 0.25 mg PO TID PRN PRN Reason: Anxiety Last Admin: 04/14/22 00:34 Dose: 0.25 mg Aspirin (Aspirin 81 Mg) 81 mg PO DAILY [facility] Last Admin: 04/14/22 09:45 Dose: 81 mg Atorvastatin Calcium (Atorvastatin 80 Mg Tab) 80 mg PO HS@2100 [facility] Last Admin: 04/13/22 19:46 Dose: 80 mg Calcium Carbonate/Glycine (Calcium Carbonate 500 Mg Chewable) 1,000 mg PO Q4HR PRN PRN Reason: Dyspepsia Collagenase (Collagenase 250 Unit/Gm Ointment 30 Gm Tube) 1 applic TOPICAL DAILY [facility]; Protocol Last Admin: 04/14/22 09:45 Dose: 1 applic Ferrous Sulfate (Ferrous Sulfate 325 Mg Tab) 325 mg PO DAILY@0900 [facility] Last Admin: 04/14/22 09:45 Dose: 325 mg Fluoxetine HCl (Fluoxetine Hcl 20 Mg Cap) 20 mg PO HS@2100 [facility] Last Admin: 04/13/22 19:46 Dose: 20 mg Furosemide (Furosemide 40 Mg Tab) 40 mg PO BID@0900,1600 [facility] Last Admin: 04/14/22 09:45 Dose: 40 mg Ampicillin Sodium/Sulbactam (Sodium 3 gm/ Sodium Chloride) 100 mls @ 200 mls/hr IVPB Q8HR [facility]; Protocol Last Admin: 04/14/22 09:45 Dose: 200 mls/hr Insulin Aspart (Insulin Aspart (Novolog) 100 Unit/Ml Vial) 0 unit SQ ACHS [facility]; Protocol Last Admin: 04/14/22 12:20 Dose: 2 unit Isosorbide Mononitrate (Isosorbide Mononitrate Er 30 Mg Tab.Er.24h) 30 mg PO DAILY@0900 [facility] Last Admin: 04/14/22 09:45 Dose: 30 mg Lactulose (Lactulose 20 Gm/30 Ml Cup) 20 gm PO DAILY PRN PRN Reason: Constipation Melatonin (Melatonin 3 Mg Tablet) 3 mg PO HS PRN PRN Reason: Insomnia Methyl Salicylate (Methyl Salicylate-Menthol Oint (3 Oz Tube)) 1 applic TOPICAL DAILY@0900 [facility] Last Admin: 04/14/22 09:46 Dose: 1 applic Naloxone HCl (Naloxone 0.4 Mg/Ml 1 Ml Vial) 0.2 mg IV Q2M PRN PRN Reason: Opioid Reversal Nitroglycerin (Nitroglycerin Sl Tabs 0.4 Mg Tab) 0.4 mg SUBLINGUAL Q5M PRN PRN Reason: Chest Pain Ondansetron HCl (Ondansetron 4 Mg/2 Ml Vial) 4 mg IVP Q8HR PRN PRN Reason: Nausea And Vomiting Pantoprazole Sodium (Pantoprazole 40 Mg Tablet) 40 mg PO DAILY@0600 [facility] Last Admin: 04/14/22 06:50 Dose: 40 mg Sodium Bicarbonate (Sodium Bicarbonate Tab 650 Mg Tab) 650 mg PO Q48H [facility] Last Admin: 04/13/22 19:46 Dose: 650 mg Tamsulosin HCl (Tamsulosin 0.4 Mg Cap.Er.24h) 0.4 mg PO HS@2100 [facility] Last Admin: 04/13/22 19:46 Dose: 0.4 mg Past medical history to include: CAD with stent, diabetes, hypertension, hyperlipidemia, skin cancer on the nose in August 2020, anxiety, left leg common femoral DVT October 2021, hyperuricemia, hepatic steatosis, CHF EF 20-25%. 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 Alcohol rarely. Currently at [facility] in the [place] Family history: Diabetes, CAD Physical examination: VITAL SIGNS: 97.6, 69, 18, 110/72, 95% room air GENERAL: Reclining in chair, comfortable EYES: Pupils equal. Conjunctiva normal. HEENT: External appearance of nose and ears normal, oral cavity grossly normal. NECK: JVD possibly raised; masses not palpable. HEART: First and second heart sounds are normal; edema present LUNGS: Respiratory rate increased; decreased breath sound . ABDOMEN: Soft, nontender, liver spleen not palpable, no masses palpable. PSYCH: [Alert and oriented x3; mood and affect anxious LYMPHATICS: No lymph node palpable neck and axilla Musculoskeletal: Evidence of OA DERMATOLOGICAL: Dressing on the left leg -wounds INVESTIGATIONS, reviewed in the clinical context: Wound culture: Enterococcus faecalis/VRE 04/13/2022: Potassium 4.4 BUN 55 creatinine 2.01 04/12/2022: Potassium 4.6. Creatinine 2.7 White count 4.6 hemoglobin 9.3 platelets 17 sodium 135 potassium 5.7 BUN 61 and creatinine 2.18 EKG tracing personally reviewed by me-complete heart block Chest x-ray film personally reviewed by me-cardiomegaly, pulmonary edema Previous studies: Creatinine [03/21/2022]: 2.0 2-D echocardiogram: EF 20-25%. Left lower extremity venous Doppler: DVT in the common femoral vein. Gallbladder ultrasound: Gallbladder filled with stones. Possible hepatic steatosis. Arterial Doppler results discussed with Dr. Mike: No evidence of vascular compromise Assessment and plan: -Acute congestive heart failure exacerbation from systolic dysfunction EF 20- 25%,: Better oral Lasix 40 mg twice a day Strict I's and O's. -Complete heart block: Better with Toprol XL being discontinued: Gone back into sinus rhythm corrected. Keep patient off beta tonya. 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 Bowel discontinued PPI - chronic medical debility. Multifactorial. PT OT. - chronic multiple wounds painful left lower extremity left calf and left ankle likely from venous ulcers from DVT. Cultures positive for VRE/Enterococcus faecalis IV Unasyn. Changed to Augmentin upon discharge. -Choledocholithiasis. Asymptomatic -CAD with a history of stent Aspirin will be started 81 mg it was held previously for GI bleed. -Diabetes mellitus type 2, chronically on insulin Follow Accu-Cheks and sliding scale insulin. -Hyperlipidemia Lipitor 80 mg daily -Essential hypertension Toprol-XL 50 mg -Hyperkalemia from CK D kelpa. Also on Lasix drip -Anxiety not otherwise specified Xanax 0.25 mg by mouth twice a day -Hyperuricemia allopurinol 100 mg daily -no code Continue current medications. Patient return to LTAC as intermittent therapy. Saturday
--- NOTE | 2022-04-14 16:39 | P.PN ---
Subjective Progress Note Date: 04/12/22 Principal diagnosis: Bilateral lower extremity wounds Patient is a 66-year male with a past medical history significant for chronic nonhealing wound especially left lower extremity recent admission to the hospital and the culture positive for beta-hemolytic group B strep treated with the cefazolin followed by [facility] patient has been brought to the ER for evaluation of increasing shortness of breath, and also noticed to have a wound to the right big toe which has been cultured by the wound care. On today's evaluation that is 04/12/2022 the patient denies having any fever or any chills, the patient is breathing comfortably on room air patient denies having any chest pain or shortness of breath occasional cough no abdominal pain denies any worsening pain to the left lower or right big toe wound area Objective - Vital Signs Vital signs: Vital Signs Temp 97.8 F 04/12/22 08:50 Pulse 76 04/12/22 11:45 Resp 17 04/12/22 11:45 BP 137/82 04/12/22 11:45 Pulse Ox 98 04/12/22 11:45 FiO2 Intake & Output 04/11/22 04/12/22 04/12/22 18:59 06:59 18:59 Intake Total 180 816.500 960 Output Total 900 700 700 Balance -720 116.500 260 Weight 105.5 kg Intake: IV 100 Furosemide 100 mg In 100 Sodium Chloride 0.9% 90 ml @ 10 MG/HR 10 mls/hr IV .Q10H [facility] Rx#: [id number] Intake, IV Titration 176.500 Amount Furosemide 100 mg In 176.500 Sodium Chloride 0.9% 90 ml @ 10 MG/HR 10 mls/hr IV .Q10H [facility] Rx#: [id number] Oral 180 540 960 Output: Urine 900 700 700 Other: Voiding Method Toilet Toilet Toilet Urinal Urinal Urinal External Catheter - Exam GENERAL DESCRIPTION: An elderly male lying in bed in no distress RESPIRATORY SYSTEM: Unlabored breathing , decreased breath sounds at bases HEART: S1 S2 regular rate and rhythm , ABDOMEN: Soft , no tenderness EXTREMITIES: Left lower extremity wounds are currently dressed no drainage on the dressing, right big toe with superficial wound minimal erythema - Labs CBC & Chem 7: 04/11/22 07:44 04/13/22 10:29 Labs: Abnormal Lab Results - Last 24 Hours (Table) 04/11/22 04/11/22 04/11/22 Range/Units 16:49 17:26 20:30 Potassium 5.2 H (3.5-5.1) mmol/L BUN (9-20) mg/dL Creatinine (0.66-1.25) mg/dL POC Glucose (mg/dL) 189 H 149 H (70-110) mg/dL Calcium (8.4-10.2) mg/dL C-Reactive Protein 1.7 H (<1.0) mg/dL 04/12/22 04/12/22 Range/Units 07:54 11:51 Potassium (3.5-5.1) mmol/L BUN 59 H (9-20) mg/dL Creatinine 2.17 H (0.66-1.25) mg/dL POC Glucose (mg/dL) 123 H (70-110) mg/dL Calcium 8.3 L (8.4-10.2) mg/dL C-Reactive Protein (<1.0) mg/dL Microbiology - Last 24 Hours (Table) 04/11/22 10:53 Gram Stain - Preliminary Toe - Right First Wound Culture - Preliminary Group D Enterococcus 04/11/22 10:53 Anaerobic Culture - Preliminary Toe - Right First Assessment and Plan (1) Type 2 diabetes mellitus with foot ulcer Current Visit: Yes Status: Acute Code(s): E11.621 - TYPE 2 DIABETES MELLITUS WITH FOOT ULCER; L97.509 - NON-PRESSURE CHRONIC ULCER OTH PRT UNSP FOOT W UNSP SEVERITY SNOMED Code(s): 424357425 Plan: 1patient with a chronic nonhealing wound especially left lower extremity in this patient wounds did have some slough tissue no significant surrounding redness did have some swelling more likely due to underlying fluid overload status patient with no fever or elevated white count low clinical suspicion for underlying infection or risk of bacteremia. 2patient did have a right big toe wound with minimal erythema cellulitis , her local culture now showing enterococcus we will add Unasyn while waiting for sensitivity to finalize. 3patient will continue continue local wound care with Santyl to the wound with slough tissue followed by John wrap for compression Time with Patient: Less than 30
--- NOTE | 2022-04-14 16:40 | P.PN ---
Subjective Progress Note Date: 04/13/22 Principal diagnosis: Bilateral lower extremity wounds Patient is a 66-year male with a past medical history significant for chronic nonhealing wound especially left lower extremity recent admission to the hospital and the culture positive for beta-hemolytic group B strep treated with the cefazolin followed by K[facility]pike patient has been brought to the ER for evaluation of increasing shortness of breath, and also noticed to have a wound to the right big toe which has been cultured by the wound care. On today's evaluation that is 04/13/2022 the patient remains to be afebrile, the patient is breathing comfortably on room air, the patient denies having any chest pain or shortness of breath, the patient did have occasional cough no abdominal pain denies any worsening pain to the left lower or right big toe wound area Objective - Vital Signs Vital signs: Vital Signs Temp 98.7 F 04/13/22 09:20 Pulse 79 04/13/22 11:35 Resp 18 04/13/22 11:35 BP 119/72 04/13/22 11:35 Pulse Ox 93 L 04/13/22 11:35 FiO2 Intake & Output 04/12/22 04/13/22 04/13/22 18:59 06:59 18:59 Intake Total 1052.167 269.167 118 Output Total 900 2520 450 Balance 152.167 -2250.833 -332 Intake: Intake, IV Titration 92.167 89.167 Amount Furosemide 100 mg In 92.167 89.167 Sodium Chloride 0.9% 90 ml @ 10 MG/HR 10 mls/hr IV .Q10H [facility] Rx#: [id number] Oral 960 180 118 Output: Urine 900 1800 450 Post Void Residual 720 Other: Voiding Method Toilet Toilet Toilet Urinal Urinal Urinal # Voids 1 - Exam GENERAL DESCRIPTION: An elderly male lying in bed in no distress RESPIRATORY SYSTEM: Unlabored breathing , decreased breath sounds at bases HEART: S1 S2 regular rate and rhythm , ABDOMEN: Soft , no tenderness EXTREMITIES: Left lower extremity wounds are currently dressed no drainage on the dressing, right big toe with superficial wound minimal erythema - Labs CBC & Chem 7: 04/11/22 07:44 04/13/22 10:29 Labs: Abnormal Lab Results - Last 24 Hours (Table) 04/12/22 04/12/22 04/13/22 Range/Units 16:33 20:03 10:29 Sodium 136 L (137-145) mmol/L BUN 55 H (9-20) mg/dL Creatinine 2.01 H (0.66-1.25) mg/dL Glucose 139 H (74-99) mg/dL POC Glucose (mg/dL) 180 H 158 H (70-110) mg/dL Calcium 8.2 L (8.4-10.2) mg/dL 04/13/22 Range/Units 11:48 Sodium (137-145) mmol/L BUN (9-20) mg/dL Creatinine (0.66-1.25) mg/dL Glucose (74-99) mg/dL POC Glucose (mg/dL) 208 H (70-110) mg/dL Calcium (8.4-10.2) mg/dL Microbiology - Last 24 Hours (Table) 04/11/22 17:34 Blood Culture - Preliminary Blood No Growth after 24 hours 04/11/22 10:53 Gram Stain - Preliminary Toe - Right First Wound Culture - Preliminary Group D Enterococcus Assessment and Plan (1) Diabetic infection of right foot Current Visit: Yes Status: Acute Code(s): E11.628 - TYPE 2 DIABETES MELLITUS WITH OTHER SKIN COMPLICATIONS; L08.9 - LOCAL INFECTION OF THE SKIN AND SUBCUTANEOUS TISSUE, UNSP SNOMED Code(s): 84297857 Plan: 1patient with a chronic nonhealing wound especially left lower extremity in this patient wounds did have some slough tissue no significant surrounding redness did have some swelling more likely due to underlying fluid overload status patient with no fever or elevated white count low clinical suspicion for underlying infection or risk of bacteremia. 2patient did have a right big toe wound with minimal erythema cellulitis , the patient local culture growing VRE that is sensitive to penicillin patient is on Unasyn we'll recommend short course of oral Augmentin on discharge discussed with the admitting physician. 3patient will continue continue local wound care with Santyl to the wound with slough tissue followed by John wrap for compression Time with Patient: Less than 30
--- NOTE | 2022-04-14 16:43 | P.PN ---
Subjective Progress Note Date: 04/14/22 Principal diagnosis: Bilateral lower extremity wounds Patient is a 66-year male with a past medical history significant for chronic nonhealing wound especially left lower extremity recent admission to the hospital and the culture positive for beta-hemolytic group B strep treated with the cefazolin followed by Kes[facility] patient has been brought to the ER for evaluation of increasing shortness of breath, and also noticed to have a wound to the right big toe which has been cultured by the wound care. On today's evaluation that is 04/14/2022 the patient remains to be afebrile, the patient is complaining of more shortness of breath and a cough today but not bring up any sputum, denies nausea no vomiting no abdominal pain or any worsening pain to lower extremity Objective - Vital Signs Vital signs: Vital Signs Temp 97.6 F 04/14/22 12:25 Pulse 69 04/14/22 12:25 Resp 18 04/14/22 12:25 BP 110/72 04/14/22 12:25 Pulse Ox 95 04/14/22 12:25 FiO2 Intake & Output 04/13/22 04/14/22 04/14/22 18:59 06:59 18:59 Intake Total 236 240 Output Total 450 450 Balance -214 -210 Weight 106.3 kg Intake: Oral 236 240 Output: Urine 450 450 Other: Voiding Method Toilet Toilet Toilet Urinal Urinal Urinal - Exam GENERAL DESCRIPTION: An elderly male lying in bed in no distress RESPIRATORY SYSTEM: Unlabored breathing , decreased breath sounds at bases HEART: S1 S2 regular rate and rhythm , ABDOMEN: Soft , no tenderness EXTREMITIES: Left lower extremity wounds are currently dressed no drainage on the dressing, right big toe with superficial wound minimal erythema - Labs CBC & Chem 7: 04/11/22 07:44 04/13/22 10:29 Labs: Abnormal Lab Results - Last 24 Hours (Table) 04/13/22 04/14/22 Range/Units 19:48 11:59 POC Glucose (mg/dL) 153 H 171 H (70-110) mg/dL Microbiology - Last 24 Hours (Table) 04/11/22 17:34 Blood Culture - Preliminary Blood No Growth after 48 hours 04/11/22 10:53 Gram Stain - Final Toe - Right First Wound Culture - Final Enterococcus faecalis VRE 04/11/22 10:53 Anaerobic Culture - Preliminary Toe - Right First Assessment and Plan (1) Diabetic infection of right foot Current Visit: Yes Status: Acute Code(s): E11.628 - TYPE 2 DIABETES MELLITUS WITH OTHER SKIN COMPLICATIONS; L08.9 - LOCAL INFECTION OF THE SKIN AND SUBCUTAN EOUS TISSUE, UNSP SNOMED Code(s): 03383280 Plan: 1patient with a chronic nonhealing wound especially left lower extremity in this patient wounds did have some slough tissue no significant surrounding redness did have some swelling more likely due to underlying fluid overload status patient with no fever or elevated white count low clinical suspicion for underlying infection or risk of bacteremia. 2patient will continue continue local wound care with Santyl to the wound with slough tissue followed by John wrap for compression 3-patient did have a right big toe wound with minimal erythema cellulitis , the patient local culture growing VRE that is sensitive to penicillin patient is on Unasyn finishing therapy with oral Augmentin 4patient complaining of increasing shortness of breath we will repeat a chest x-ray CRP and a pro-calcitonin Time with Patient: Less than 30
[2022-04-14 16:58] LABS: Glucose,Whole Blood 158 mg/dL (70-110)
[2022-04-14 19:57] LABS: Glucose,Whole Blood 138 mg/dL (70-110)
[2022-04-14] MEDS: TAMSULOSIN 0.4 MG CAP.ER.24H PO SCH (20:01)
[2022-04-14] MEDS: allopurinoL 100 MG TAB PO SCH (20:01)
[2022-04-14] MEDS: ATORVASTATIN 80 MG TAB PO SCH (20:01)
[2022-04-14] MEDS: FLUoxetine HCL 20 MG CAP PO SCH (20:01)
--- NOTE | 2022-04-14 23:00 | XR ---
EXAMINATION TYPE: XR chest 2V DATE OF EXAM: 04/14/2022 COMPARISON: 04/10/2022 HISTORY: Difficulty breathing TECHNIQUE: 2 views FINDINGS: Heart is enlarged. There is some pulmonary vascular congestion. There is mild blunting of t he costophrenic angles. There are chest leads. Bony thorax is intact. IMPRESSION: There is evidence for mild congestive heart failure. Small bilateral pleural effusions. N o change compared to recent exam.
[2022-04-15] MEDS: Acetaminophen-Codeine 300-30mg TAB PO PRN ×2 (02:57→09:18)
[2022-04-15 05:41] LABS: Anisocytosis Slight; Basophils % (A) 0 %; Eosinophils # (A) 0.1 k/uL (0-0.7); Eosinophils % (A) 2 %; HGB 9.3 gm/dL (13.0-17.5); Hypochromasia Marked; Lymphocytes # (A) 0.3 k/uL (1.0-4.8); Lymphocytes % (A) 5 %; MCH 31.8 pg (25.0-35.0); MCHC 31.1 g/dL (31.0-37.0); MCV 102.2 fL (80.0-100.0); Macrocytosis Moderate; Mean Platelet Volume 9.1; Monocytes # (A) 0.3 k/uL (0-1.0); Monocytes % (A) 6 %; Neutrophils # (A) 4.7 k/uL (1.3-7.7); Neutrophils % (A) 86 %; Platelet Count 102 k/uL (150-450); RBC 2.93 m/uL (4.30-5.90); RDW 18.6 % (11.5-15.5); WBC 5.4 k/uL (3.8-10.6)
[2022-04-15 05:49] LABS: C Reactive Protein 2.9 mg/dL (<1.0); Calcium 8.3 mg/dL (8.4-10.2); Magnesium 2.2 mg/dL (1.6-2.3); Potassium 3.7 mmol/L (3.5-5.1)
[2022-04-15 05:54] LABS: Glucose,Whole Blood 100 mg/dL (70-110)
[2022-04-15] MEDS: INSULIN ASPART (NovoLOG) 100 UNIT/ML VIAL SQ SCH ×4 (05:56→20:54)
[2022-04-15] MEDS: PANTOPRAZOLE 40 MG TABLET PO SCH (06:50)
[2022-04-15] MEDS: AMPICILLIN-SULBACTAM 3 GM in SODIUM CHLORIDE 0.9% 100 ML IVPB SCH ×2 (09:15→17:41)
[2022-04-15] MEDS: ISOSORBIDE MONONITRATE ER 30 MG TAB.ER.24H PO SCH (09:15)
[2022-04-15] MEDS: FUROSEMIDE 40 MG TAB PO SCH (09:15)
[2022-04-15] MEDS: FERROUS SULFATE 325 MG TAB PO SCH (09:15)
[2022-04-15] MEDS: ASPIRIN 81 MG PO SCH (09:15)
[2022-04-15] MEDS: COLLAGENASE 250 UNIT/GM OINTMENT 30 GM TUBE TOPICAL SCH (09:16)
[2022-04-15] MEDS: METHYL SALICYLATE-MENTHOL OINT (3 OZ TUBE) TOPICAL SCH (09:17)
[2022-04-15] MEDS ORDERED: POTASSIUM CHLORIDE ER 20 MEQ TAB.ER PO STA (09:40)
--- NOTE | 2022-04-15 10:40 | P.PN ---
Subjective Patient is seen in follow-up for acute kidney injury on chronic kidney disease. Renal function stable. Maintained on oral Lasix. Nonoliguric. Bladder scans have been high but he refuses straight catheterization or Rivera catheter insertion. On room air. Blood pressure stable. No vomiting or diarrhea. Vital signs are stable. General: Awake. No acute distress. HEENT: Head exam is unremarkable. LUNGS: Breath sounds decreased. HEART: Rate and Rhythm are regular. ABDOMEN: Soft, no distention. EXTREMITITES: 1+ edema. Objective - Vital Signs Vital signs: Vital Signs Temp 97.6 F 04/14/22 12:25 Pulse 79 04/15/22 09:10 Resp 20 04/15/22 09:10 BP 120/78 04/15/22 09:10 Pulse Ox 93 L 04/15/22 09:10 FiO2 Intake & Output 04/14/22 04/15/22 04/15/22 18:59 06:59 18:59 Intake Total 720 240 Output Total 450 Balance 270 240 Weight 111 kg Intake: Oral 720 240 Output: Urine 450 Other: Voiding Method Toilet Toilet Toilet Urinal Urinal Urinal - Labs CBC & Chem 7: 04/15/22 04:00 04/15/22 04:00 Labs: Abnormal Lab Results - Last 24 Hours (Table) 04/14/22 04/14/22 04/14/22 Range/Units 11:59 16:49 19:56 RBC (4.30-5.90) m/uL Hgb (13.0-17.5) gm/dL Hct (39.0-53.0) % MCV (80.0-100.0) fL RDW (11.5-15.5) % Plt Count (150-450) k/uL Lymphocytes # (1.0-4.8) k/uL Sodium (137-145) mmol/L Carbon Dioxide (22-30) mmol/L BUN (9-20) mg/dL Creatinine (0.66-1.25) mg/dL POC Glucose (mg/dL) 171 H 158 H 138 H (70-110) mg/dL Calcium (8.4-10.2) mg/dL C-Reactive Protein (<1.0) mg/dL 04/15/22 04/15/22 Range/Units 04:00 04:00 RBC 2.93 L (4.30-5.90) m/uL Hgb 9.3 L (13.0-17.5) gm/dL Hct 30.0 L (39.0-53.0) % MCV 102.2 H (80.0-100.0) fL RDW 18.6 H (11.5-15.5) % Plt Count 102 L (150-450) k/uL Lymphocytes # 0.3 L (1.0-4.8) k/uL Sodium 136 L (137-145) mmol/L Carbon Dioxide 31 H (22-30) mmol/L BUN 46 H (9-20) mg/dL Creatinine 1.99 H (0.66-1.25) mg/dL POC Glucose (mg/dL) (70-110) mg/dL Calcium 8.3 L (8.4-10.2) mg/dL C-Reactive Protein 2.9 H (<1.0) mg/dL Microbiology - Last 24 Hours (Table) 04/11/22 17:34 Blood Culture - Preliminary Blood No Growth after 72 hours Assessment and Plan Plan: Assessment: 1. Mild acute kidney injury mostly prerenal secondary to cardiorenal syndrome. Creatinine stable at 1.99. No evidence of hydronephrosis noted on kidney u ltrasound. 2. Chronic kidney disease stage IIIB secondary to diabetic kidney disease and nephrosclerosis with baseline creatinine 1.5-2. 3. Hyperkalemia secondary to chronic kidney disease. Resolved. Now hypokalemic. 4. Acute on chronic systolic CHF with ejection fraction of less than 15% with moderate pulmonary hypertension. 5. Coronary disease status post 3 cardiac stents. 6. Diabetes mellitus. 7. Volume overload. Improved with diuresis. 8. Urinary retention. On Flomax. Plan: Maintain Lasix - change back to IV for now. Low-salt diet and 1500 mL fluid resection. Discussed with patient that urinary retention can lead to infections and worsening renal failure. Avoid nephrotoxins. Repeat BMP and magnesium level 2-3 days postdischarge. Follow up outpatient in 1 week.
[2022-04-15 12:11] LABS: Glucose,Whole Blood 173 mg/dL (70-110)
[2022-04-15] MEDS: ALPRAZolam 0.25 MG TAB PO PRN (12:21)
--- NOTE | 2022-04-15 15:56 | P.PN ---
Progress Note - Text Progress Note Date: 04/15/22 Chief Complaint: Edema This is a pleasant 66-year-old patient, follows with Dr. Mike Escobar. Chronic stable medical conditions include CAD with stent, diabetes, hypertension, hyperlipidemia anxiety. CAD, hyperuricemia, left leg DVT in October 2021, CHF EF 20 -25% leg wounds. seen by ID and vascular. Wound culture - stenotrophomonas maltophilia. follow the wound care center. Patient currently at [facility] on the [facility]. Patient has been off Lasix for a few days. Has worsening lower extremity edema going up to his abdomen. Edema has become significant last 4 days. Some shortness of breath. Decreased appetite. No fever no chills. Tired. Admitted with CHF exacerbation EF 20-25%, started on IV Lasix drip. Also some complete heart block. Beta tonya discontinued. 04/12/2022: Remains on Lasix drip 10 mg an hour. Making urine. Lower extremity wounds don't appear to be infected per ID. Santyl dressing. Patient is back in sinus rhythm after stopping beta tonya. Had his breakfast. 04/13/2022: Up in a chair. Taken off Lasix drip. Has been in good negative fluid balance. Discussed with ID. Could be swished over to oral Augmentin. Remains in sinus rhythm. Discussed with outpatient case manager. Hoping to return to [facility] today. Oral intake fair. 04/14/2022: Up in a chair. Oral intake fair. Did appear to when necessary review with her insurance company. Patient return as LTAC with intermittent therapy. 04/15/2022: Reclining. Comfortable. Oral intake fair. Awaiting return to LTAC. Active Medications Acetaminophen (Acetaminophen Tab 325 Mg Tab) 650 mg PO Q6H PRN PRN Reason: Mild Pain or Fever > 100.5 Acetaminophen/Codeine Phosphate (Acetaminophen-Codeine 300-30mg Tab) 1 each PO Q4HR PRN PRN Reason: Moderate to Severe Pain (4-10) Last Admin: 04/15/22 09:18 Dose: 1 each Allopurinol (Allopurinol 100 Mg Tab) 100 mg PO HS@2100 VAN Last Admin: 04/14/22 20:01 Dose: 100 mg Alprazolam (Alprazolam 0.25 Mg Tab) 0.25 mg PO TID PRN PRN Reason: Anxiety Last Admin: 04/15/22 12:21 Dose: 0.25 mg Aspirin (Aspirin 81 Mg) 81 mg PO DAILY [facility] Last Admin: 04/15/22 09:15 Dose: 81 mg Atorvastatin Calcium (Atorvastatin 80 Mg Tab) 80 mg PO HS@2100 [facility] Last Admin: 04/14/22 20:01 Dose: 80 mg Calcium Carbonate/Glycine (Calcium Carbonate 500 Mg Chewable) 1,000 mg PO Q4HR PRN PRN Reason: Dyspepsia Collagenase (Collagenase 250 Unit/Gm Ointment 30 Gm Tube) 1 applic TOPICAL DAILY [facility]; Protocol Last Admin: 04/15/22 09:16 Dose: 1 applic Ferrous Sulfate (Ferrous Sulfate 325 Mg Tab) 325 mg PO DAILY@0900 [facility] Last Admin: 04/15/22 09:15 Dose: 325 mg Fluoxetine HCl (Fluoxetine Hcl 20 Mg Cap) 20 mg PO HS@2100 [facility] Last Admin: 04/14/22 20:01 Dose: 20 mg Furosemide (Furosemide 10 Mg/Ml 4 Ml Vial) 40 mg IV Q12HR [facility] Ampicillin Sodium/Sulbactam (Sodium 3 gm/ Sodium Chloride) 100 mls @ 200 mls/hr IVPB Q8HR [facility]; Protocol Last Admin: 04/15/22 09:15 Dose: 200 mls/hr Insulin Aspart (Insulin Aspart (Novolog) 100 Unit/Ml Vial) 0 unit SQ ACHS [facility]; Protocol Last Admin: 04/15/22 12:17 Dose: 2 unit Isosorbide Mononitrate (Isosorbide Mononitrate Er 30 Mg Tab.Er.24h) 30 mg PO DAILY@0900 [facility] Last Admin: 04/15/22 09:15 Dose: 30 mg Lactulose (Lactulose 20 Gm/30 Ml Cup) 20 gm PO DAILY PRN PRN Reason: Constipation Melatonin (Melatonin 3 Mg Tablet) 3 mg PO HS PRN PRN Reason: Insomnia Methyl Salicylate (Methyl Salicylate-Menthol Oint (3 Oz Tube)) 1 applic TOPICAL DAILY@0900 [facility] Last Admin: 04/15/22 09:17 Dose: 1 applic Naloxone HCl (Naloxone 0.4 Mg/Ml 1 Ml Vial) 0.2 mg IV Q2M PRN PRN Reason: Opioid Reversal Nitroglycerin (Nitroglycerin Sl Tabs 0.4 Mg Tab) 0.4 mg SUBLINGUAL Q5M PRN PRN Reason: Chest Pain Ondansetron HCl (Ondansetron 4 Mg/2 Ml Vial) 4 mg IVP Q8HR PRN PRN Reason: Nausea And Vomiting Pantoprazole Sodium (Pantoprazole 40 Mg Tablet) 40 mg PO DAILY@0600 [facility] Last Admin: 04/15/22 06:50 Dose: 40 mg Sodium Bicarbonate (Sodium Bicarbonate Tab 650 Mg Tab) 650 mg PO Q48H [facility] Last Admin: 04/13/22 19:46 Dose: 650 mg Tamsulosin HCl (Tamsulosin 0.4 Mg Cap.Er.24h) 0.4 mg PO HS@2100 [facility] Last Admin: 04/14/22 20:01 Dose: 0.4 mg Past medical history to include: CAD with stent, diabetes, hypertension, hyperlipidemia, skin cancer on the nose in August 2020, anxiety, left leg common femoral DVT October 2021, hyperuricemia, hepatic steatosis, CHF EF 20-25%. 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 Alcohol rarely. Currently at [facility] in the [place] Family history: Diabetes, CAD Physical examination: VITAL SIGNS: 97.9, 97, 20, 108/72, 91% room air GENERAL: Laying in bed, comfortable EYES: Pupils equal. Conjunctiva normal. HEENT: External appearance of nose and ears normal, oral cavity grossly normal. NECK: JVD possibly raised; masses not palpable. HEART: First and second heart sounds are normal; edema present LUNGS: Respiratory rate increased; decreased breath sound . ABDOMEN: Soft, nontender, liver spleen not palpable, no masses palpable. PSYCH: [Alert and oriented x3; mood and affect anxious LYMPHATICS: No lymph node palpable neck and axilla Musculoskeletal: Evidence of OA DERMATOLOGICAL: Dressing on the left leg -wounds INVESTIGATIONS, reviewed in the clinical context: 04/15/2022: White count 5.4 hemoglobin 10.3 platelets 1023.7 BUN 46 creatinine 1.99 Wound culture: Enterococcus faecalis/VRE 04/13/2022: Potassium 4.4 BUN 55 creatinine 2.01 04/12/2022: Potassium 4.6. Creatinine 2.7 White count 4.6 hemoglobin 9.3 platelets 17 sodium 135 potassium 5.7 BUN 61 and creatinine 2.18 EKG tracing personally reviewed by me-complete heart block Chest x-ray film personally reviewed by me-cardiomegaly, pulmonary edema Previous studies: Creatinine [03/21/2022]: 2.0 2-D echocardiogram: EF 20-25%. Left lower extremity venous Doppler: DVT in the common femoral vein. Gallbladder ultrasound: Gallbladder filled with stones. Possible hepatic steatosis. Arterial Doppler results discussed with Dr. Mike: No evidence of vascular compromise Assessment and plan: -Acute congestive heart failure exacerbation from systolic dysfunction EF 20- 25%,: Better oral Lasix 40 mg twice a day Strict I's and O's. -Complete heart block: Better with Toprol XL being discontinued: Gone back into sinus rhythm corrected. Keep patient off beta tonya. 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 Bowel discontinued PPI - chronic medical debility. Multifactorial. PT OT. - chronic multiple wounds painful left lower extremity left calf and left ankle likely from venous ulcers from DVT. Cultures positive for VRE/Enterococcus faecalis IV Unasyn. Changed to Augmentin upon discharge. -Choledocholithiasis. Asymptomatic -CAD with a history of stent Aspirin will be started 81 mg it was held previously for GI bleed. -Diabetes mellitus type 2, chronically on insulin Follow Accu-Cheks and sliding scale insulin. -Hyperlipidemia Lipitor 80 mg daily -Essential hypertension Toprol-XL 50 mg -Hyperkalemia from CK D Lokelma. Also on Lasix drip -Anxiety not otherwise specified Xanax 0.25 mg by mouth twice a day -Hyperuricemia allopurinol 100 mg daily -no code Current medications to be continued. Patient return to LTAC as intermittent therapy. Tomorrow
--- NOTE | 2022-04-15 16:08 | P.PN ---
Subjective Progress Note Date: 04/15/22 Principal diagnosis: Bilateral lower extremity wounds Patient is a 66-year male with a past medical history significant for chronic nonhealing wound especially left lower extremity recent admission to the hospital and the culture positive for beta-hemolytic group B strep treated with the cefazolin followed by [facility] patient has been brought to the ER for evaluation of increasing shortness of breath, and also noticed to have a wound to the right big toe which has been cultured by the wound care. On today's evaluation that is 04/15/2022 the patient continues to be afebrile, the patient is breathing more comfortably today and remains to be on room air, the patient denies having any chest pain occasional cough no nausea no vomiting no abdominal pain or any worsening pain to the lower extremity Objective - Vital Signs Vital signs: Vital Signs Temp 97.9 F 04/15/22 12:15 Pulse 97 04/15/22 12:15 Resp 20 04/15/22 12:15 BP 108/72 04/15/22 12:15 Pulse Ox 91 L 04/15/22 12:15 FiO2 Intake & Output 04/14/22 04/15/22 04/15/22 18:59 06:59 18:59 Intake Total 720 240 Output Total 450 Balance 270 240 Weight 111 kg Intake: Oral 720 240 Output: Urine 450 Other: Voiding Method Toilet Toilet Toilet Urinal Urinal Urinal - Exam GENERAL DESCRIPTION: An elderly male lying in bed in no distress RESPIRATORY SYSTEM: Unlabored breathing , decreased breath sounds at bases HEART: S1 S2 regular rate and rhythm , ABDOMEN: Soft , no tenderness EXTREMITIES: Left lower extremity wounds are currently dressed no drainage on the dressing, right big toe with superficial wound minimal erythema - Labs CBC & Chem 7: 04/15/22 04:00 04/15/22 04:00 Labs: Abnormal Lab Results - Last 24 Hours (Table) 04/14/22 04/14/22 04/15/22 Range/Units 16:49 19:56 04:00 RBC (4.30-5.90) m/uL Hgb (13.0-17.5) gm/dL Hct (39.0-53.0) % MCV (80.0-100.0) fL RDW (11.5-15.5) % Plt Count (150-450) k/uL Lymphocytes # (1.0-4.8) k/uL Sodium 136 L (137-145) mmol/L Carbon Dioxide 31 H (22-30) mmol/L BUN 46 H (9-20) mg/dL Creatinine 1.99 H (0.66-1.25) mg/dL POC Glucose (mg/dL) 158 H 138 H (70-110) mg/dL Calcium 8.3 L (8.4-10.2) mg/dL C-Reactive Protein 2.9 H (<1.0) mg/dL 04/15/22 04/15/22 Range/Units 04:00 12:08 RBC 2.93 L (4.30-5.90) m/uL Hgb 9.3 L (13.0-17.5) gm/dL Hct 30.0 L (39.0-53.0) % MCV 102.2 H (80.0-100.0) fL RDW 18.6 H (11.5-15.5) % Plt Count 102 L (150-450) k/uL Lymphocytes # 0.3 L (1.0-4.8) k/uL Sodium (137-145) mmol/L Carbon Dioxide (22-30) mmol/L BUN (9-20) mg/dL Creatinine (0.66-1.25) mg/dL POC Glucose (mg/dL) 173 H (70-110) mg/dL Calcium (8.4-10.2) mg/dL C-Reactive Protein (<1.0) mg/dL Microbiology - Last 24 Hours (Table) 04/11/22 10:53 Anaerobic Culture - Final Toe - Right First 04/11/22 17:34 Blood Culture - Preliminary Blood No Growth after 72 hours Assessment and Plan (1) Diabetic infection of right foot Current Visit: Yes Status: Acute Code(s): E11.628 - TYPE 2 DIABETES MELLITUS WITH OTHER SKIN COMPLICATIONS; L08.9 - LOCAL INFECTION OF THE SKIN AND SUBCUTANEOUS TISSUE, UNSP SNOMED Code(s): 91083769 Plan: 1patient with a chronic nonhealing wound especially left lower extremity in this patient wounds did have some slough tissue no significant surrounding redness did have some swelling more likely due to underlying fluid overload status patient with no fever or elevated white count low clinical suspicion for underlying infection or risk of bacteremia. 2patient will continue continue local wound care with Santyl to the wound with slough tissue followed by John wrap for compression 3-patient did have a right big toe wound with minimal cellulitis , the patient local culture growing VRE that is sensitive to penicillin patient is on Unasyn , patient to continue with Unasyn while inpatient and finishing therapy with oral Augmentin 10 days on discharge Time with Patient: Less than 30
[2022-04-15 16:52] LABS: Glucose,Whole Blood 97 mg/dL (70-110)
[2022-04-15 20:03] LABS: Glucose,Whole Blood 211 mg/dL (70-110)
[2022-04-15] MEDS: FUROSEMIDE 10 MG/ML 4 ML VIAL IV SCH (20:54)
[2022-04-15] MEDS: FLUoxetine HCL 20 MG CAP PO SCH (20:54)
[2022-04-15] MEDS: ATORVASTATIN 80 MG TAB PO SCH (20:54)
[2022-04-15] MEDS: allopurinoL 100 MG TAB PO SCH (20:54)
[2022-04-15] MEDS: TAMSULOSIN 0.4 MG CAP.ER.24H PO SCH (20:54)
[2022-04-15] MEDS: SODIUM BICARBONATE TAB 650 MG TAB PO SCH (20:54)
[2022-04-16] MEDS: AMPICILLIN-SULBACTAM 3 GM in SODIUM CHLORIDE 0.9% 100 ML IVPB SCH ×2 (00:05→09:45)
[2022-04-16] MEDS: ALPRAZolam 0.25 MG TAB PO PRN (04:45)
[2022-04-16 06:04] LABS: Glucose,Whole Blood 99 mg/dL (70-110)
[2022-04-16] MEDS: INSULIN ASPART (NovoLOG) 100 UNIT/ML VIAL SQ SCH ×2 (06:14→12:05)
[2022-04-16] MEDS: PANTOPRAZOLE 40 MG TABLET PO SCH (06:46)
[2022-04-16 08:28] LABS: Calcium 8.2 mg/dL (8.4-10.2); Magnesium 2.1 mg/dL (1.6-2.3)
[2022-04-16] MEDS: ASPIRIN 81 MG PO SCH (09:44)
[2022-04-16] MEDS: FERROUS SULFATE 325 MG TAB PO SCH (09:44)
[2022-04-16] MEDS: ISOSORBIDE MONONITRATE ER 30 MG TAB.ER.24H PO SCH (09:44)
[2022-04-16] MEDS: FUROSEMIDE 10 MG/ML 4 ML VIAL IV SCH (09:44)
[2022-04-16] MEDS: Acetaminophen-Codeine 300-30mg TAB PO PRN (09:56)
[2022-04-16 11:31] LABS: Glucose,Whole Blood 125 mg/dL (70-110)
--- NOTE | 2022-04-16 11:53 | P.PN ---
Subjective Patient is seen in follow-up for acute kidney injury on chronic kidney disease. Renal function stable. Maintained on IV Lasix. Nonoliguric. Refuses straight catheterization Rivera catheter insertion. Blood pressure stable. Vital signs are stable. General: Resting in bed. HEENT: Head exam is unremarkable. LUNGS: Breath sounds decreased. HEART: Rate and Rhythm are regular. ABDOMEN: Soft, no distention. EXTREMITITES: 1+ edema. Objective - Vital Signs Vital signs: Vital Signs Temp 97.2 F L 04/16/22 09:39 Pulse 90 04/16/22 09:39 Resp 16 04/16/22 09:39 BP 133/71 04/16/22 09:39 Pulse Ox 91 L 04/16/22 09:39 FiO2 Intake & Output 04/15/22 04/16/22 04/16/22 18:59 06:59 18:59 Intake Total 720 180 Output Total 700 Balance 20 180 Weight 107 kg Intake: Oral 720 180 Output: Urine 700 Other: Voiding Method Toilet Toilet Urinal Urinal - Labs CBC & Chem 7: 04/15/22 04:00 04/16/22 07:47 Labs: Abnormal Lab Results - Last 24 Hours (Table) 04/15/22 04/15/22 04/16/22 Range/Units 12:08 20:01 07:47 BUN 44 H (9-20) mg/dL Creatinine 1.93 H (0.66-1.25) mg/dL POC Glucose (mg/dL) 173 H 211 H (70-110) mg/dL Calcium 8.2 L (8.4-10.2) mg/dL 04/16/22 Range/Units 11:29 BUN (9-20) mg/dL Creatinine (0.66-1.25) mg/dL POC Glucose (mg/dL) 125 H (70-110) mg/dL Calcium (8.4-10.2) mg/dL Microbiology - Last 24 Hours (Table) 04/11/22 17:34 Blood Culture - Preliminary Blood No Growth after 96 hours 04/11/22 10:53 Anaerobic Culture - Final Toe - Right First Assessment and Plan Plan: Assessment: 1. Mild acute kidney injury mostly prerenal secondary to cardiorenal syndrome. Creatinine stable at 1.93. No evidence of hydronephrosis noted on kidney ultrasound. 2. Chronic kidney disease stage IIIB secondary to diabetic kidney disease and nephrosclerosis with baseline creatinine 1.5-2. 3. Hyperkalemia secondary to chronic kidney disease. Resolved. Potassium was low and had to be replaced. Normal today. 4. Acute on chronic systolic CHF with ejection fraction of less than 15% with moderate pulmonary hypertension. 5. Coronary disease status post 3 cardiac stents. 6. Diabetes mellitus. 7. Volume overload. Improved with diuresis. 8. Urinary retention. On Flomax. Plan: Maintain IV Lasix. Transition to oral Lasix 40 mg twice daily upon discharge. Low-salt diet and 1500 mL fluid resection. Discussed with patient that urinary retention can lead to infections and worsening renal failure. Avoid nephrotoxins. Repeat BMP and magnesium level 2-3 days postdischarge. Follow up outpatient in 1 week.
[2022-04-16 12:38] VITALS: BP 129/70; PULSE 80; RESP 18; TEMP 97.1
[2022-04-16 12:50] VITALS: BMI 33.8
--- NOTE | 2022-04-16 13:59 | P.DS ---
Providers Date of admission: 04/10/22 16:44 Expected date of discharge: 04/16/22 Attending physician: Derick Johnson Consults: 04/10/22 16:44 Consult Physician Urgent Consulting Provider: [facility] Consult Reason/Comments: acute chf exacerbation Do you want consulting provider notified?: Yes Consult Physician Urgent Consulting Provider: Roc Gonsalves Consult Reason/Comments: chf exacerbation, ckd Do you want consulting provider notified?: Yes 04/11/22 17:27 Consult Physician Routine Consulting Provider: Cassidy Naik Consult Reason/Comments: Wounds, infection Do you want consulting provider notified?: Already Contacted Primary care physician: Mike Escobar [facility] Course: This is a pleasant 66-year-old patient, follows with Dr. Mike Escobar. Chronic stable medical conditions include CAD with stent, diabetes, hypertension, hyperlipidemia anxiety. CAD, hyperuricemia, left leg DVT in October 2021, CHF EF 20 -25% leg wounds. seen by ID and vascular. Wound culture - stenotrophomonas maltophilia. follow the wound care center. Patient currently at [facility] on [facility]. Patient has been off Lasix for a few days. Has worsening lower extremity edema going up to his abdomen. Edema has become significant last 4 days. Some shortness of breath. Decreased appetite. No fever no chills. Tired. Admitted with CHF exacerbation EF 20-25%, started on IV Lasix drip. Also some complete heart block. Beta tonya discontinued. 04/12/2022: Remains on Lasix drip 10 mg an hour. Making urine. Lower extremity wounds don't appear to be infected per ID. Santyl dressing. Patient is back in sinus rhythm after stopping beta tonya. Had his breakfast. 04/13/2022: Up in a chair. Taken off Lasix drip. Has been in good negative fluid balance. Discussed with ID. Could be swished over to oral Augmentin. Remains in sinus rhythm. Discussed with oil field caser. Hoping to return to [facility] today. Oral intake fair. 04/14/2022: Up in a chair. Oral intake fair. Did appear to when necessary review with her insurance company. Patient return as LTAC with intermittent therapy. 04/15/2022: Reclining. Comfortable. Oral intake fair. Awaiting return to LTAC. 04/16/2022: Oral intake fair. Patient return to LTAC today. Lasix by mouth 60 mg twice a day on discharge. Follow-up labs. Changed to by mouth Augmentin. Wound care to continue. Patient to follow-up with cardiology, nephrology. Wound care center. Discussion and discharge planning more than 35 minutes Past medical history to include: CAD with stent, diabetes, hypertension, hyperlipidemia, skin cancer on the nose in August 2020, anxiety, left leg common femoral DVT October 2021, hyperuricemia, hepatic steatosis, CHF EF 20-25%. 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 Alcohol rarely. Currently at [facility] in [facility] Family history: Diabetes, CAD Physical examination: VITAL SIGNS: 97.2, 90, 16, 133.71, 91% on room air GENERAL: Laying in bed, comfortable EYES: Pupils equal. Conjunctiva normal. HEENT: External appearance of nose and ears normal, oral cavity grossly normal. NECK: JVD possibly raised; masses not palpable. HEART: First and second heart sounds are normal; edema present LUNGS: Respiratory rate increased; decreased breath sound . ABDOMEN: Soft, nontender, liver spleen not palpable, no masses palpable. PSYCH: [Alert and oriented x3; mood and affect anxious LYMPHATICS: No lymph node palpable neck and axilla Musculoskeletal: Evidence of OA DERMATOLOGICAL: Dressing on the left leg -wounds INVESTIGATIONS, reviewed in the clinical context: 04/16/2022: Potassium 4 BUN 44 creatinine 1.93 04/15/2022: White count 5.4 hemoglobin 10.3 platelets 1023.7 BUN 46 creatinine 1.99 Wound culture: Enterococcus faecalis/VRE 04/13/2022: Potassium 4.4 BUN 55 creatinine 2.01 04/12/2022: Potassium 4.6. Creatinine 2.7 White count 4.6 hemoglobin 9.3 platelets 17 sodium 135 potassium 5.7 BUN 61 and creatinine 2.18 EKG tracing personally reviewed by me-complete heart block Chest x-ray film personally reviewed by me-cardiomegaly, pulmonary edema Previous studies: Creatinine [03/21/2022]: 2.0 2-D echocardiogram: EF 20-25%. Left lower extremity venous Doppler: DVT in the common femoral vein. Gallbladder ultrasound: Gallbladder filled with stones. Possible hepatic steatosis. Arterial Doppler results discussed with Dr. Cuppari: No evidence of vascular compromise Assessment and plan: -Acute congestive heart failure exacerbation from systolic dysfunction EF 20- 25%,: Better oral Lasix 60 mg twice a day Strict I's and O's. -Complete heart block: Better with Toprol XL being discontinued: Gone back into sinus rhythm corrected. Keep patient off beta tonya. 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 Bowel discontinued PPI - chronic medical debility. Multifactorial. PT OT. - chronic multiple wounds painful left lower extremity left calf and left ankle likely from venous ulcers from DVT. Cultures positive for VRE/Enterococcus faecalis IV Unasyn. Changed to Augmentin upon discharge. -Choledocholithiasis. Asymptomatic -CAD with a history of stent Aspirin will be started 81 mg it was held previously for GI bleed. -Diabetes mellitus type 2, chronically on insulin Follow Accu-Cheks and sliding scale insulin. -Hyperlipidemia Lipitor 80 mg daily -Essential hypertension Toprol-XL 50 mg -discontinued. On diuretics -Hyperkalemia from CK D: Corrected Lokelma. Received Lasix drip -Anxiety not otherwise specified Xanax 0.25 mg by mouth twice a day -Hyperuricemia allopurinol 100 mg daily -no code Disposition: [facility] Plan - Discharge Summary Discharge Rx Participant: No New Discharge Prescriptions: New Collagenase [Santyl Ointment] 1 applic TOPICAL DAILY each Amoxic-Pot Clav 875-125Mg [Augmentin 875-125] 1 tab PO BID #14 tab Furosemide [Lasix] 60 mg PO BID #1 tab Aspirin 81 mg PO DAILY tab Continue allopurinoL [Zyloprim] 100 mg PO HS@2100 Glucerna Shake 1 can PO BID@0900,1700 Isosorbide Mononitrate ER [Imdur] 30 mg PO DAILY@0900 Sodium Bicarbonate Tab 650 mg PO Q48H Methyl Salicylate/Menth/Camph [Salonpas 3.1%-6.0%-10.0% Patch] 1 patch TOPICAL DAILY@0900 Acetaminophen Tab [Tylenol] 650 mg PO Q6H PRN PRN Reason: Pain Or Fever > 100.5 Nitroglycerin Sl Tabs [Nitrostat] 0.4 mg SL Q5M PRN #30 tab PRN Reason: Chest Pain Ferrous Sulfate [Iron (65 MG Elemental)] 325 mg PO DAILY@0900 Lactulose [Cephulac] 20 gm PO DAILY PRN ml PRN Reason: Constipation Atorvastatin [Lipitor] 80 mg PO HS@2100 FLUoxetine HCL [PROzac] 20 mg PO HS@2100 Insulin Lispro [humaLOG Kwikpen] See Protocol SQ QID@,,, Omeprazole [PriLOSEC] 40 mg PO DAILY@0600 Tamsulosin [Flomax] 0.4 mg PO HS@2100 Acetaminophen-Codeine 300-30mg [Tylenol w/codeine #3] 1 tab PO Q4HR PRN #18 tab PRN Reason: Moderate To Severe Pain Changed ALPRAZolam [Xanax] 0.25 mg PO TID PRN #9 tab PRN Reason: Anxiety Discontinued Metoprolol Succinate (ER) [Toprol XL] 50 mg PO DAILY@0900 Discharge Medication List Acetaminophen Tab [Tylenol] 650 mg PO Q6H PRN 08/22/21 [History] Nitroglycerin Sl Tabs [Nitrostat] 0.4 mg SL Q5M PRN #30 tab 12/06/21 [Rx] Ferrous Sulfate [Iron (65 MG Elemental)] 325 mg PO DAILY@0900 02/07/22 [History] Lactulose [Cephulac] 20 gm PO DAILY PRN ml 03/19/22 [Rx] Atorvastatin [Lipitor] 80 mg PO HS@209904/01/22 [History] FLUoxetine HCL [PROzac] 20 mg PO HS@209904/01/22 [History] Glucerna Shake 1 can PO BID@0900,1700 04/01/22 [History] Insulin Lispro [humaLOG Kwikpen] See Protocol SQ QID@,,,04/01/22 [History] Isosorbide Mononitrate ER [Imdur] 30 mg PO DAILY@0900 04/01/22 [History] Omeprazole [PriLOSEC] 40 mg PO DAILY@0600 04/01/22 [History] Sodium Bicarbonate Tab 650 mg PO Q48H 04/01/22 [History] Tamsulosin [Flomax] 0.4 mg PO HS@209904/01/22 [History] allopurinoL [Zyloprim] 100 mg PO HS@2100 04/01/22 [History] Methyl Salicylate/Menth/Camph [Salonpas 3.1%-6.0%-10.0% Patch] 1 patch TOPICAL DAILY@0900 04/10/22 [History] ALPRAZolam [Xanax] 0.25 mg PO TID PRN #9 tab 04/16/22 [Rx] Acetaminophen-Codeine 300-30mg [Tylenol w/codeine #3] 1 tab PO Q4HR PRN #18 tab 04/16/22 [Rx] Amoxic-Pot Clav 875-125Mg [Augmentin 875-125] 1 tab PO BID #14 tab 04/16/22 [Rx] Aspirin 81 mg PO DAILY tab 04/16/22 [Rx] Collagenase [Santyl Ointment] 1 applic TOPICAL DAILY each 04/16/22 [Rx] Furosemide [Lasix] 60 mg PO BID #1 tab 04/16/22 [Rx] Follow up Appointment(s)/Referral(s): Mike Escobar MD [Primary Care Provider] - 1-2 days Activity/Diet/Wound Care/Special Instructions: per Dr. Gonsalves: 1500 fluid restriction low sodium diet BMP and magnesium level in two days wound care to continue
--- NOTE | 2022-04-21 21:45 | P.PN ---
Subjective Progress Note Date: 04/16/22 Principal diagnosis: Bilateral lower extremity wounds Patient is a 66-year male with a past medical history significant for chronic nonhealing wound especially left lower extremity recent admission to the hospital and the culture positive for beta-hemolytic group B strep treated with the cefazolin followed by [facility] patient has been brought to the ER for evaluation of increasing shortness of breath, and also noticed to have a wound to the right big toe which has been cultured by the wound care. On today's evaluation that is 04/16/2022 the patient remains to be afebrile, the patient is breathing comfortably and remains to be on room air, the patient denies having any chest pain occasional dry cough, no nausea no vomiting no abdominal pain and pain to the lower extremity is currently controlled Objective - Vital Signs Vital signs: Vital Signs Temp 97.1 F L 04/16/22 12:00 Pulse 80 04/16/22 12:00 Resp 18 04/16/22 12:00 BP 129/70 04/16/22 12:00 Pulse Ox 93 L 04/16/22 12:00 FiO2 Intake & Output 04/15/22 04/16/22 04/16/22 18:59 06:59 18:59 Intake Total 720 180 Output Total 700 Balance 20 180 Weight 107 kg 107 kg Intake: Oral 720 180 Output: Urine 700 Other: Voiding Method Toilet Toilet Urinal Urinal - Exam GENERAL DESCRIPTION: An elderly male lying in bed in no distress RESPIRATORY SYSTEM: Unlabored breathing , decreased breath sounds at bases HEART: S1 S2 regular rate and rhythm , ABDOMEN: Soft , no tenderness EXTREMITIES: Left lower extremity wounds are currently dressed no drainage on the dressing, right big toe with superficial wound minimal erythema - Labs CBC & Chem 7: 04/15/22 04:00 04/16/22 07:47 Labs: Abnormal Lab Results - Last 24 Hours (Table) 04/15/22 04/16/22 04/16/22 Range/Units 20:01 07:47 11:29 BUN 44 H (9-20) mg/dL Creatinine 1.93 H (0.66-1.25) mg/dL POC Glucose (mg/dL) 211 H 125 H (70-110) mg/dL Calcium 8.2 L (8.4-10.2) mg/dL Microbiology - Last 24 Hours (Table) 04/11/22 17:34 Blood Culture - Preliminary Blood No Growth after 96 hours 04/11/22 10:53 Anaerobic Culture - Final Toe - Right First Assessment and Plan (1) Diabetic infection of right foot Status: Acute Code(s): E11.628 - TYPE 2 DIABETES MELLITUS WITH OTHER SKIN COMPLICATIONS; L08.9 - LOCAL INFECTION OF THE SKIN AND SUBCUTANEOUS TISSUE, UNSP SNOMED Code(s): 11809620 Plan: 1patient with a chronic nonhealing wound especially left lower extremity in this patient wounds did have some slough tissue no significant surrounding redness did have some swelling more likely due to underlying fluid overload status patient with no fever or elevated white count low clinical suspicion for underlying infection or risk of bacteremia. 2patient will continue continue local wound care with Santyl to the wound with slough tissue followed by John wrap for compression 3-patient did have a right big toe wound with minimal cellulitis , the patient local culture growing VRE that is sensitive to penicillin patient seems to have shown clinical Improvement with Unasyn , with a plan to finish therapy with oral Augmentin 10 days on discharge and close outpatient follow-up Time with Patient: Less than 30
== END 2022-04-16 16:17 | DRG 291 ==
LOC: EC 13:00 → 3SCARD 16:44
PROVIDERS: ADMIT Hospitalist; ATTEND Hospitalist
DX: I13.0 Hypertensive heart and chronic kidney disease with heart failure and stage 1 through stage 4 chronic kidney disease, or unspecified chronic kidney disease (principal); I50.23 Acute on chronic systolic (congestive) heart failure; I44.2 Atrioventricular block, complete; N17.9 Acute kidney failure, unspecified; L97.322 Non-pressure chronic ulcer of left ankle with fat layer exposed; L97.222 Non-pressure chronic ulcer of left calf with fat layer exposed; L97.211 Non-pressure chronic ulcer of right calf limited to breakdown of skin; Z16.21 Resistance to vancomycin; I27.20 Pulmonary hypertension, unspecified; I83.009 Varicose veins of unspecified lower extremity with ulcer of unspecified site; L03.031 Cellulitis of right toe; K80.50 Calculus of bile duct without cholangitis or cholecystitis without obstruction; E11.22 Type 2 diabetes mellitus with diabetic chronic kidney disease; B95.2 Enterococcus as the cause of diseases classified elsewhere; L97.512 Non-pressure chronic ulcer of other part of right foot with fat layer exposed; E11.51 Type 2 diabetes mellitus with diabetic peripheral angiopathy without gangrene; E11.42 Type 2 diabetes mellitus with diabetic polyneuropathy; E11.621 Type 2 diabetes mellitus with foot ulcer; E11.622 Type 2 diabetes mellitus with other skin ulcer; E11.628 Type 2 diabetes mellitus with other skin complications; I70.243 Atherosclerosis of native arteries of left leg with ulceration of ankle; I70.242 Atherosclerosis of native arteries of left leg with ulceration of calf; I48.0 Paroxysmal atrial fibrillation; N18.32 Chronic kidney disease, stage 3b; Z79.4 Long term (current) use of insulin; K76.0 Fatty (change of) liver, not elsewhere classified; I25.5 Ischemic cardiomyopathy; E78.5 Hyperlipidemia, unspecified; I25.2 Old myocardial infarction; R33.8 Other retention of urine; N40.1 Benign prostatic hyperplasia with lower urinary tract symptoms; E87.5 Hyperkalemia; F32.A Depression, unspecified; F41.9 Anxiety disorder, unspecified; G47.00 Insomnia, unspecified; I25.10 Atherosclerotic heart disease of native coronary artery without angina pectoris; K20.90 Esophagitis, unspecified without bleeding; K29.70 Gastritis, unspecified, without bleeding; K29.80 Duodenitis without bleeding; K59.00 Constipation, unspecified; E79.0 Hyperuricemia without signs of inflammatory arthritis and tophaceous disease; K76.9 Liver disease, unspecified; Z79.899 Other long term (current) drug therapy; Z95.5 Presence of coronary angioplasty implant and graft; Z86.718 Personal history of other venous thrombosis and embolism; Z86.14 Personal history of Methicillin resistant Staphylococcus aureus infection; Z85.828 Personal history of other malignant neoplasm of skin; Z86.16 Personal history of COVID-19; Z88.1 Allergy status to other antibiotic agents; Z82.49 Family history of ischemic heart disease and other diseases of the circulatory system
CPT/HCPCS: 36415; 71046; 76770; 80048; 80053; 83605; 83735; 83880; 84132; 84484; 85025; 85610; 85730; 86140; 87040; 87070; 87075; 87077; 87186; 87205; 93005; 94644; 94760; 96374; 96375; 99291

== ENCOUNTER 2022-05-01 13:01 | Inpatient (IN) | payer MEDICARE ==
[2022-05-01] MEDS ORDERED: FUROSEMIDE 10 MG/ML 10 ML VIAL IV STA (13:05)
--- NOTE | 2022-05-01 13:37 | ED ---
General Adult HPI - General Chief complaint: Shortness of Breath Stated complaint: SOB Time Seen by Provider: 05/01/22 13:01 Source: patient, RN notes reviewed, old records reviewed Mode of arrival: EMS Limitations: no limitations - History of Present Illness Initial comments: This is a 67-year-old male who is a DO NOT RESUSCITATE and his past medical h istory significant for congestive heart therapy. According to the patient this morning he started having difficulty breathing, progressively worse. EMS was contacted and they came and saw the patient patient was having quite a bit of respiratory distress on arrival oxygenating in the 60s. Patient also was really working to breathe. Patient was put on CPAP on the way in and is working to breathe improved considerably it was difficult for EMS to get a good pulse ox on room so they brought him to the emergency department. Patient states the CPAP is helped him immensely. Patient denies any fever chills per patient denies chest pain difficulty breathing. Patient's any pain anywhere. Patient denies any nausea vomiting. Patient does admit that the swelling is worse. - Related Data Home Medications Medication Instructions Recorded Confirmed Acetaminophen Tab [Tylenol] 650 mg PO Q6H PRN 08/22/21 05/01/22 Ferrous Sulfate [Iron (65 MG 325 mg PO HS 02/07/22 05/01/22 Elemental)] Atorvastatin [Lipitor] 80 mg PO HS 04/01/22 05/01/22 FLUoxetine HCL [PROzac] 20 mg PO HS 04/01/22 05/01/22 Glucerna Shake 237 ml PO BID 04/01/22 05/01/22 Insulin Lispro [humaLOG Kwikpen] See Protocol SQ QID@,12,17,04/01/22 05/01/22 Isosorbide Mononitrate ER [Imdur] 30 mg PO DAILY 04/01/22 05/01/22 Sodium Bicarbonate Tab 650 mg PO Q48H 04/01/22 05/01/22 Tamsulosin [Flomax] 0.4 mg PO HS 04/01/22 05/01/22 allopurinoL [Zyloprim] 100 mg PO HS@2100 04/01/22 05/01/22 Methyl Salicylate/Menth/Camph 1 patch TOPICAL DAILY 04/10/22 05/01/22 [Salonpas 3.1%-6.0%-10.0% Patch] ALPRAZolam [Xanax] 0.5 mg PO BID PRN 05/01/22 05/01/22 Collagenase [Santyl Ointment] 1 applic TOPICAL DAILY PRN 05/01/22 05/01/22 Collagenase [Santyl Ointment] 1 applic TOPICAL HS 05/01/22 05/01/22 Furosemide [Lasix] 60 mg PO BID@0630,1400 05/01/22 05/01/22 Omeprazole 40 mg PO DAILY@0600 05/01/22 05/01/22 Simethicone [Gas-X] 125 mg PO Q8H 05/01/22 05/01/22 Z-Guard 1 applic TOPICAL Q12H 05/01/22 05/01/22 Previous Rx's Medication Instructions Recorded Nitroglycerin Sl Tabs [Nitrostat] 0.4 mg SL Q5M PRN #30 tab 12/06/21 Lactulose [Cephulac] 20 gm PO DAILY PRN ml 03/19/22 Acetaminophen-Codeine 300-30mg 1 tab PO Q4HR PRN #18 tab 04/16/22 [Tylenol w/codeine #3] Aspirin 81 mg PO DAILY tab 04/16/22 Allergies Allergy/AdvReac Type Severity Reaction Status Date / Time ciprofloxacin [From Cipro] Allergy Rash/Hives Verified 05/01/22 13:23 Review of Systems ROS Statement: Those systems with pertinent positive or pertinent negative responses have been documented in the HPI. ROS Other: All systems not noted in ROS Statement are negative. Past Medical History Past Medical History: Coronary Artery Disease (CAD), Cancer, Heart Failure, Diabetes Mellitus, Deep Vein Thrombosis (DVT), Hyperlipidemia, Hypertension, Liver Disease, Myocardial Infarction (VT), Prostate Disorder, Renal Disease, Skin Disorder Additional Past Medical History / Comment(s): Ischemic cardiomyopathy, chronic CHF, 10/26/21 DVT L lower extremity, IDDM type II, neuropathy bilaterl legs/feet, L leg wounds, BPH, CKD stage III, hyperuricemia, hepatic steatosis, choledocho lithiasis, eczema as child. Last Myocardial Infarction Date:: 02/12/2019 History of Any Multi-Drug Resistant Organisms: VRE Date of last positivie culture/infection: 04/11/22 MDRO Source:: Right First Toe Past Surgical History: Heart Catheterization, Heart Catheterization With Stent, Orthopedic Surgery Additional Past Surgical History / Comment(s): skin cancer removed from nose August 2020 Past Anesthesia/Blood Transfusion Reactions: No Reported Reaction Date of Last Stent Placement:: 2012 Past Psychological History: Anxiety, Depression Smoking Status: Never smoker Past Alcohol Use History: Occasional Past Drug Use History: None Reported - Past Family History Mother Family Medical History: Coronary Artery Disease (CAD), Diabetes Mellitus, Myocardial Infarction (VT) Father Family Medical History: Diabetes Mellitus, Renal Disease family Additional Family Medical History / Comment(s): Mother with history of diabetes mellitus and CAD, father with history of heart disease and diabetes General Exam - General Exam Comments Initial Comments: GENERAL: Patient is well-developed and well-nourished. Patient is nontoxic and well- hydrated and is in old distress. ENT: Neck is soft and supple. No significant lymphadenopathy is noted. Oropharynx is clear. Moist mucous membranes. Neck has full range of motion without eliciting any pain. EYES: The sclera were anicteric and conjunctiva were pink and moist. Extraocular movements were intact and pupils were equal round and reactive to light. Eyelids were unremarkable. PULMONARY: Unlabored respirations. Patient is on CPAP and not appearing in any distress however he has crackles throughout. CARDIOVASCULAR: There is a regular rate and rhythm without any murmurs gallops or rubs. ABDOMEN: Soft and nontender with normal bowel sounds. Patient has edema up into the abdomen. SKIN: Skin is clear with no lesions or rashes and otherwise unremarkable. NEUROLOGIC: Patient is alert and oriented x3. Cranial nerves II through XII are grossly intact. Motor and sensory are also intact. Normal speech, volume and content. Symmetrical smile. MUSCULOSKELETAL: Normal extremities with adequate strength and full range of motion. 2+ edema bilaterally LYMPHATICS: No significant lymphadenopathy is noted PSYCHIATRIC: Normal psychiatric evaluation. Limitations: no limitations Course Vital Signs 05/01/22 05/01/22 05/01/22 13:02 13:11 14:09 Temperature 97.6 F Pulse Rate 97 96 Respiratory 26 H 22 Rate Blood Pressure 123/97 O2 Sat by Pulse 88 L 99 Oximetry Fraction of 100 Inspired Oxygen (FIO2) 05/01/22 05/01/22 05/01/22 14:11 14:29 14:30 Temperature Pulse Rate 93 97 Respiratory 24 23 Rate Blood Pressure 122/87 122/87 O2 Sat by Pulse 98 97 Oximetry Fraction of 50 Inspired Oxygen (FIO2) 05/01/22 05/01/22 05/01/22 14:59 15:00 15:30 Temperature Pulse Rate 95 93 Respiratory 18 25 H Rate Blood Pressure 120/90 137/98 O2 Sat by Pulse 98 100 Oximetry Fraction of 50 50 Inspired Oxygen (FIO2) 05/01/22 05/01/22 16:00 16:30 Temperature Pulse Rate 95 85 Respiratory 24 24 Rate Blood Pressure 120/79 128/80 O2 Sat by Pulse 100 99 Oximetry Fraction of Inspired Oxygen (FIO2) Medical Decision Making - Medical Decision Making EKG was interpreted by myself. EKG shows sinus rhythm at 80 bpm MA interval is 224 QRS is 117 QT interval 444 QTC is 490. Patient's EKG shows no ST segment elevation or depression. Was pt. sent in by a medical professional or institution? @ -No Did you speak to anyone other than the patient for history? @ -EMS Did you review nursing and triage notes? @ -Agreed nursing notes Were old charts reviewed? @ -I reviewed the patient's old EKG as well as previous admissions Differential Diagnosis? @ -Differential Dyspnea: Coronary syndrome, arrhythmia, tamponade, asthma, COPD, pulmonary embolism, pneumonia, pneumothorax, pulmonary effusion, anaphylaxis, diabetic ketoacidosis, flailed chest, pulmonary contusion, diaphragmatic rupture, anemia, neuromuscular, this is not meant to be an all-inclusive list. EKG interpreted by me (3pts min.)? @ -As above X-rays interpreted by me (1pt min.)? @ -I interpreted chest x-ray and it showed pulmonary edema CT interpreted by me (1pt min.)? @ -None U/S interpreted by me (1pt. min.)? @ -None What testing was considered but not performed? (CT, X-rays, U/S, labs)? Why? @ -No What meds were considered but not given? Why? @ -No Did you discuss the management of the patient with other professionals? @ -Spoke with Dr. Natarajan agreed to admit the patient admitted the patient wrote admitting orders Did you reconcile home meds? @ -None Was smoking cessation discussed for >3mins.? @ -None Was critical care preformed (if so, how long)? @ -Patient was hypoxic in the 60s in the field [facility] and eventually weaned off BiPAP in the ER after patient received Lasix 80 mg IV and was feeling much more comfortable. Were there social determinants of health that impacted care today? How? (Homelessness, low income, unemployed, alcoholism, drug addiction, transpo rtation, low edu. Level, literacy, decrease access to med. care, [facility], rehab)? @ -None Was there de-escalation of care discussed even if they declined? (Discuss DNR or withdrawal of care, Hospice)? @ -None What co-morbidities impacted this encounter? (DM, HTN, Smoking, COPD, CAD, Cancer, CVA, Hep., AIDS, mental health diagnosis, sleep apnea, morbid obesity)? @ -No Was patient admitted / discharged? @ -Acute pulmonary edema Undiagnosed new problem with uncertain prognosis? @ -[none] Drug Therapy requiring intensive monitoring for toxicity (Heparin, Nitro, Insulin, Cardizem)? @ -None Were any procedures done? @ -None Diagnosis/symptom? @ -Acute pulmonary edema Acute, or Chronic, or Acute on Chronic? @ -Acute Uncomplicated (without systemic symptoms) or Complicated (systemic symptoms)? @ -Complicated Side effects of treatment? @ -None Exacerbation, Progression, or Severe Exacerbation] @ -Severe exacerbation Poses a threat to life or bodily function? @ -Yes patient was hypoxic therefore affecting all organ systems. - Lab Data Result diagrams: 05/01/22 13:22 05/01/22 13:22 Lab Results 05/01/22 05/01/22 05/01/22 Range/Units 13:22 13:22 13:22 WBC 6.1 (3.8-10.6) k/uL RBC 3.23 L (4.30-5.90) m/uL Hgb 10.4 L (13.0-17.5) gm/dL Hct 33.3 L (39.0-53.0) % MCV 103.2 H (80.0-100.0) fL MCH 32.3 (25.0-35.0) pg MCHC 31.2 (31.0-37.0) g/dL RDW 18.8 H (11.5-15.5) % Plt Count 189 D (150-450) k/uL MPV 8.8 Neutrophils % 87 % Lymphocytes % 5 % Monocytes % 5 % Eosinophils % 1 % Basophils % 0 % Neutrophils # 5.4 (1.3-7.7) k/uL Lymphocytes # 0.3 L (1.0-4.8) k/uL Monocytes # 0.3 (0-1.0) k/uL Eosinophils # 0.1 (0-0.7) k/uL Basophils # 0.0 (0-0.2) k/uL Hypochromasia Marked Poikilocytosis Slight Anisocytosis Slight Macrocytosis Moderate PT 12.0 (9.0-12.0) sec INR 1.2 H (<1.2) APTT 23.8 (22.0-30.0) sec Sample Site ABG pH (7.35-7.45) ABG pCO2 (35-45) mmHg ABG pO2 (83-108) mmHg ABG HCO3 (21-25) mmol/L ABG Total CO2 (19-24) mmol/L ABG O2 Saturation (94-97) % ABG Base Excess mmol/L Devin Test FiO2 % Sodium 136 L (137-145) mmol/L Potassium 5.0 (3.5-5.1) mmol/L Chloride 98 (98-107) mmol/L Carbon Dioxide 29 (22-30) mmol/L Anion Gap 9 mmol/L BUN 38 H (9-20) mg/dL Creatinine 1.58 H (0.66-1.25) mg/dL Est GFR (CKD-EPI)AfAm 51 (>60 ml/min/1.73 sqM) Est GFR (CKD-EPI)NonAf 44 (>60 ml/min/1.73 sqM) Glucose 181 H (74-99) mg/dL Plasma Lactic Acid Dwain (0.7-2.0) mmol/L Calcium 8.4 (8.4-10.2) mg/dL Magnesium 1.9 (1.6-2.3) mg/dL Total Bilirubin 1.3 (0.2-1.3) mg/dL AST 28 (17-59) U/L ALT 17 (4-49) U/L Alkaline Phosphatase 73 (38-126) U/L Troponin I (0.000-0.034) ng/mL NT-Pro-B Natriuret Pep pg/mL Total Protein 6.9 (6.3-8.2) g/dL Albumin 3.5 (3.5-5.0) g/dL 05/01/22 05/01/22 05/01/22 Range/Units 13:22 13:22 13:22 WBC (3.8-10.6) k/uL RBC (4.30-5.90) m/uL Hgb (13.0-17.5) gm/dL Hct (39.0-53.0) % MCV (80.0-100.0) fL MCH (25.0-35.0) pg MCHC (31.0-37.0) g/dL RDW (11.5-15.5) % Plt Count (150-450) k/uL MPV Neutrophils % % Lymphocytes % % Monocytes % % Eosinophils % % Basophils % % Neutrophils # (1.3-7.7) k/uL Lymphocytes # (1.0-4.8) k/uL Monocytes # (0-1.0) k/uL Eosinophils # (0-0.7) k/uL Basophils # (0-0.2) k/uL Hypochromasia Poikilocytosis Anisocytosis Macrocytosis PT (9.0-12.0) sec INR (<1.2) APTT (22.0-30.0) sec Sample Site ABG pH (7.35-7.45) ABG pCO2 (35-45) mmHg ABG pO2 (83-108) mmHg ABG HCO3 (21-25) mmol/L ABG Total CO2 (19-24) mmol/L ABG O2 Saturation (94-97) % ABG Base Excess mmol/L Devin Test FiO2 % Sodium (137-145) mmol/L Potassium (3.5-5.1) mmol/L Chloride (98-107) mmol/L Carbon Dioxide (22-30) mmol/L Anion Gap mmol/L BUN (9-20) mg/dL Creatinine (0.66-1.25) mg/dL Est GFR (CKD-EPI)AfAm (>60 ml/min/1.73 sqM) Est GFR (CKD-EPI)NonAf (>60 ml/min/1.73 sqM) Glucose (74-99) mg/dL Plasma Lactic Acid Dwain 1.8 (0.7-2.0) mmol/L Calcium (8.4-10.2) mg/dL Magnesium (1.6-2.3) mg/dL Total Bilirubin (0.2-1.3) mg/dL AST (17-59) U/L ALT (4-49) U/L Alkaline Phosphatase (38-126) U/L Troponin I <0.012 (0.000-0.034) ng/mL NT-Pro-B Natriuret Pep 60200 pg/mL Total Protein (6.3-8.2) g/dL Albumin (3.5-5.0) g/dL 05/01/22 Range/Units 14:04 WBC (3.8-10.6) k/uL RBC (4.30-5.90) m/uL Hgb (13.0-17.5) gm/dL Hct (39.0-53.0) % MCV (80.0-100.0) fL MCH (25.0-35.0) pg MCHC (31.0-37.0) g/dL RDW (11.5-15.5) % Plt Count (150-450) k/uL MPV Neutrophils % % Lymphocytes % % Monocytes % % Eosinophils % % Basophils % % Neutrophils # (1.3-7.7) k/uL Lymphocytes # (1.0-4.8) k/uL Monocytes # (0-1.0) k/uL Eosinophils # (0-0.7) k/uL Basophils # (0-0.2) k/uL Hypochromasia Poikilocytosis Anisocytosis Macrocytosis PT (9.0-12.0) sec INR (<1.2) APTT (22.0-30.0) sec Sample Site Right Radial ABG pH 7.42 (7.35-7.45) ABG pCO2 45 (35-45) mmHg ABG pO2 331 H (83-108) mmHg ABG HCO3 29 H (21-25) mmol/L ABG Total CO2 31 H (19-24) mmol/L ABG O2 Saturation 100.0 H (94-97) % ABG Base Excess 4.9 mmol/L Devin Test Yes FiO2 100 % Sodium (137-145) mmol/L Potassium (3.5-5.1) mmol/L Chloride (98-107) mmol/L Carbon Dioxide (22-30) mmol/L Anion Gap mmol/L BUN (9-20) mg/dL Creatinine (0.66-1.25) mg/dL Est GFR (CKD-EPI)AfAm (>60 ml/min/1.73 sqM) Est GFR (CKD-EPI)NonAf (>60 ml/min/1.73 sqM) Glucose (74-99) mg/dL Plasma Lactic Acid Dwain (0.7-2.0) mmol/L Calcium (8.4-10.2) mg/dL Magnesium (1.6-2.3) mg/dL Total Bilirubin (0.2-1.3) mg/dL AST (17-59) U/L ALT (4-49) U/L Alkaline Phosphatase (38-126) U/L Troponin I (0.000-0.034) ng/mL NT-Pro-B Natriuret Pep pg/mL Total Protein (6.3-8.2) g/dL Albumin (3.5-5.0) g/dL Critical Care Time Critical Care Time: Yes Total Critical Care Time: 35 Disposition Clinical Impression: Acute pulmonary edema Disposition: ADMITTED IP TO THIS HOSP Referrals: Mike Escobar MD [Primary Care Provider] - 1-2 days Time of Disposition: 17:13
[2022-05-01 13:42] LABS: Anisocytosis Slight; Basophils % (A) 0 %; Eosinophils # (A) 0.1 k/uL (0-0.7); Eosinophils % (A) 1 %; HCT 33.3 % (39.0-53.0); HGB 10.4 gm/dL (13.0-17.5); Hypochromasia Marked; Lymphocytes # (A) 0.3 k/uL (1.0-4.8); Lymphocytes % (A) 5 %; MCH 32.3 pg (25.0-35.0); MCHC 31.2 g/dL (31.0-37.0); MCV 103.2 fL (80.0-100.0); Macrocytosis Moderate; Mean Platelet Volume 8.8; Monocytes # (A) 0.3 k/uL (0-1.0); Monocytes % (A) 5 %; Neutrophils # (A) 5.4 k/uL (1.3-7.7); Neutrophils % (A) 87 %; Poikilocytosis Slight; RBC 3.23 m/uL (4.30-5.90); RDW 18.8 % (11.5-15.5); WBC 6.1 k/uL (3.8-10.6)
[2022-05-01 13:48] LABS: Platelet Count 189 k/uL (150-450)
[2022-05-01 13:59] LABS: Albumin 3.5 g/dL (3.5-5.0); Calcium 8.4 mg/dL (8.4-10.2); Magnesium 1.9 mg/dL (1.6-2.3); Total Bilirubin 1.3 mg/dL (0.2-1.3); Total Protein 6.9 g/dL (6.3-8.2)
[2022-05-01 14:00] LABS: INR 1.2 (<1.2); Partial Thromboplastin Time 23.8 sec (22.0-30.0)
[2022-05-01 14:07] LABS: ABG Base Excess 4.9 mmol/L; ABG HCO3 29 mmol/L (21-25); ABG PCO2 45 mmHg (35-45); ABG PH 7.42 (7.35-7.45); ABG PO2 331 mmHg (83-108); ABG TCO2 31 mmol/L (19-24); Allen Test Performed? Yes
--- NOTE | 2022-05-01 14:52 | XR ---
EXAMINATION TYPE: XR chest 1V portable DATE OF EXAM: 05/01/2022 Comparison: 04/14/2022 Clinical History: 67 year-old male shortness of breath, difficulty breathing Findings: Low lung volumes. Heart remains mildly enlarged. Mid and lower lung as well as perihilar airspace opa city. Impression: Hypoventilatory changes. Cardiomegaly with perihilar and mid and lower lung airspace opacity. Correla te for CHF and mild patchy pulmonary edema.
[2022-05-01] MEDS ORDERED: FUROSEMIDE 10 MG/ML 4 ML VIAL IV STA (17:14)
[2022-05-01] MEDS ORDERED: metOLazone 2.5 MG TAB PO ONE (17:16)
[2022-05-01] MEDS ORDERED: Acetaminophen-Codeine 300-30mg TAB PO PRN (17:46)
[2022-05-01] MEDS ORDERED: ALPRAZolam 0.5 MG TAB PO PRN (17:46)
[2022-05-01] MEDS ORDERED: ACETAMINOPHEN TAB 325 MG TAB PO PRN (17:46)
[2022-05-01] MEDS ORDERED: LACTULOSE 20 GM/30 ML CUP PO PRN (17:46)
[2022-05-01] MEDS ORDERED: NON FORMULARY DRUG (Z-Guard 1 APPLIC) TOPICAL SCH (18:00)
[2022-05-01] MEDS ORDERED: LIDOCAINE 2% URO-JET JELLY 5 ML KIT URETHRAL ONE (18:14)
[2022-05-01] MEDS: SIMETHICONE 80 MG CHEWABLE PO SCH (20:35)
[2022-05-01] MEDS ORDERED: FERROUS SULFATE 325 MG TAB PO SCH (21:00)
[2022-05-01] MEDS ORDERED: NON FORMULARY DRUG (Glucerna Shake 1 CAN Ml) PO SCH (21:00)
[2022-05-01] MEDS ORDERED: ATORVASTATIN 80 MG TAB PO SCH (21:00)
[2022-05-01] MEDS ORDERED: allopurinoL 100 MG TAB PO SCH (21:00)
[2022-05-01] MEDS ORDERED: TAMSULOSIN 0.4 MG CAP.ER.24H PO SCH (21:00)
[2022-05-01] MEDS ORDERED: FLUoxetine HCL 20 MG CAP PO SCH (21:00)
--- NOTE | 2022-05-02 01:00 | CT ---
EXAMINATION TYPE: CT abdomen pelvis wo con DATE OF EXAM: 05/02/2022 COMPARISON: 02/07/2022 HISTORY: Urinary retention even though catheter is in place CT DLP: 1587 mGycm Automated exposure control for dose reduction was used. Images obtained from the diaphragm to the floor of the pelvis without contrast. Heart is moderately enlarged. There is coronary artery calcification. There are bilateral pleural eff usions with basilar pulmonary infiltrates and atelectasis. There is massive abdominal ascites fluid. No discrete liver mass. Spleen is intact. No pancreatic mass. There is distended fluid-filled stomach . The bile ducts are not dilated. There is a contracted gallbladder with calcified gallstones. There is no adrenal mass. Kidneys have normal size and contour. No hydronephrosis. No retroperitoneal adenopathy. There is Rivera catheter in urinary bladder. There is extensive subcutaneous edema around the abdomen. The lumbar vertebra appear intact. No compression fracture. Bony pelvis is intact. The hip joints are intact. There is no evidence of free air. I do not see evidence for a mechanical bowel obstruction. IMPRESSION: Cardiomegaly with pleural effusions and basilar pulmonary infiltrates and atelectasis. This is probab ly congestive chronic heart failure. There is massive abdominal ascites fluid and subcutaneous edema around the abdomen and pelvis which is increased compared to old exam and consistent with chronic hea rt failure.
[2022-05-02 01:12] LABS: Glucose,Whole Blood 188 mg/dL (70-110)
[2022-05-02] MEDS ORDERED: propofoL 100 ML IV ONE (01:16)
--- NOTE | 2022-05-02 01:33 | XR ---
EXAMINATION TYPE: XR chest 1V portable DATE OF EXAM: 05/02/2022 COMPARISON: 05/01/2022 HISTORY: Tube placement TECHNIQUE: FINDINGS: There is endotracheal tube 2 cm from the nemesio. There is nasogastric tube in the stomach. There is some interstitial edema and atelectasis in the mid and lower lung laboy. Heart appears slig htly enlarged. There are chest leads. IMPRESSION: There is some pulmonary edema and mild atelectasis which is not significantly different t cerna yesterday.
[2022-05-02] MEDS ORDERED: NALOXONE 0.4 MG/ML 1 ML VIAL IV PRN (01:34)
[2022-05-02 01:47] LABS: ABG Base Excess -3.6 mmol/L; ABG HCO3 22 mmol/L (21-25); ABG Oxygen Saturation 99.9 % (94-97); ABG PCO2 39 mmHg (35-45); ABG PH 7.36 (7.35-7.45); ABG PO2 142 mmHg (83-108); ABG TCO2 23 mmol/L (19-24); Allen Test Performed? Yes
--- NOTE | 2022-05-02 01:58 | P.EN ---
code blue note Code blue activated for PEA arrest. arrived on scene patient being intubated by ED doc. CPR per ACLS protocol . cardiac arrest with PEA. please refer to paper charting of code blue for exact medications given during the code. ROSC achieved after 12-13 minutes. patient was transferred to ICU for further care ICU attending notified , await call back. family notified and confirmed patient DNR status, family is likely to withdraw care by morning when they arrive. CXR reviewed post intubation labs reviewed patient BP is borderline, might require levophed for [facility] support
[2022-05-02] MEDS ORDERED: NOREPINEPHRINE 4 MG in SODIUM CHLORIDE 0.9% 250 ML IV SCH (02:00)
[2022-05-02] MEDS: FUROSEMIDE 40 MG TAB PO SCH ×2 (02:31→07:37)
--- NOTE | 2022-05-02 02:41 | HP ---
HISTORY AND PHYSICAL CHIEF COMPLAINT: Shortness of breath. HISTORY OF PRESENT ILLNESS: This is a 67-year-old gentleman with a past medical history of multiple medical problems, CAD, diabetes mellitus, CHF, was complaining of increased shortness of breath. The patient came to [facility]. The patient also had bilateral leg swelling also and the patient had ventricular dysfunction. There is no history of any fever, rigors, or chills at this time. PAST MEDICAL HISTORY: History of CHF, history of diabetes mellitus, and history of DVT. The rest of the history and rest of the chart is reviewed. HOME MEDICATIONS: Reviewed include zyloprim. Doses and rest of medication noted. ALLERGIES: Cipro. FAMILY HISTORY: History of CAD, diabetes mellitus, myocardial infarction. The rest of the history reviewed. SOCIAL HISTORY: No history of smoking. No history of alcohol. REVIEW OF SYSTEMS: A 14-point review is negative except as mentioned earlier. PHYSICAL EXAMINATION: VITAL SIGNS: Pulse is 95, blood pressure respirations 24. HEENT: Conjunctivae normal. NECK: No JVD. CARDIOVASCULAR: S1, S2 muffled. RESPIRATIONS: Bilateral scattered rhonchi. ABDOMEN: Soft, obese. LEGS: Bilateral leg edema. NERVOUS SYSTEM: Diffusely weak. SKIN: No ulcer, rash, bleeding. JOINTS: No active deforming arthropathy. LABORATORY DATA: Reviewed. Chest x-ray reviewed personally. ASSESSMENT: 1. Congestive heart failure acute exacerbation. 2. History of coronary artery disease. 3. Diabetes mellitus, type 2. 4. History of deep venous thrombosis. 5. Hypertension. 6. Hyperlipidemia. 7. Multiple medical issues. RECOMMENDATIONS AND DISCUSSION: This is a 67-year-old gentleman who presented with multiple complex medical issues. We will monitor the patient closely. We will initiate intravenous Lasix. Otherwise, I would recommend fluid electrolyte balance, fluid restriction of 20 mL per 24 hours. Home medications were continued once they are confirmed. Otherwise, we will follow the patient closely. Prognosis guarded. Further recommendations to follow. MMODL / IJN: [id number] / MTDD
[2022-05-02 05:59] LABS: Anisocytosis Slight; Basophils % (A) 0 %; Eosinophils % (A) 0 %; HCT 34.2 % (39.0-53.0); HGB 10.3 gm/dL (13.0-17.5); Hypochromasia Marked; Lymphocytes # (A) 0.2 k/uL (1.0-4.8); Lymphocytes % (A) 2 %; MCH 31.9 pg (25.0-35.0); MCHC 30.2 g/dL (31.0-37.0); MCV 105.5 fL (80.0-100.0); Macrocytosis Marked; Mean Platelet Volume 9.1; Monocytes # (A) 0.9 k/uL (0-1.0); Monocytes % (A) 9 %; Neutrophils # (A) 8.7 k/uL (1.3-7.7); Neutrophils % (A) 86 %; Platelet Count 151 k/uL (150-450); RBC 3.24 m/uL (4.30-5.90); RDW 18.6 % (11.5-15.5)
[2022-05-02] MEDS ORDERED: PANTOPRAZOLE 40 MG TABLET PO SCH (06:00)
[2022-05-02 06:30] LABS: Calcium 8.6 mg/dL (8.4-10.2); Potassium 5.3 mmol/L (3.5-5.1)
[2022-05-02 06:38] LABS: Anisocytosis (M) Present; Poikilocytosis (M) Present; Polychromasia Present
[2022-05-02] MEDS: SIMETHICONE 80 MG CHEWABLE PO SCH ×3 (07:37→18:06)
[2022-05-02] MEDS ORDERED: CHLORHEXIDINE GLUCONATE 15 ML CUP MUCOUS MEM SCH (09:00)
[2022-05-02] MEDS ORDERED: ASPIRIN 81 MG PO SCH (09:00)
[2022-05-02] MEDS ORDERED: METHYL SALICYLATE-MENTHOL OINT (3 OZ TUBE) TOPICAL SCH (09:00)
[2022-05-02] MEDS ORDERED: ISOSORBIDE MONONITRATE ER 30 MG TAB.ER.24H PO SCH (09:00)
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
--- NOTE | 2022-05-02 09:23 | CONS ---
CONSULTATION HISTORY OF PRESENT ILLNESS: Jabier Mitchell is a 67-year-old gentleman with multiple medical problems including CAD, heart failure with ejection fraction of less than 15% refusing ICD. He also has chronic left lower extremity venous ulcers. He has history of CAD with a prior PCI of LAD, ischemic cardiomyopathy, ejection fraction of less than 15-20% but has refused ICD. He also has chronic kidney disease. He was admitted to the hospital with congestive heart failure yesterday and while he was in the x-ray, he became hypotensive and had pulseless electrical activity and underwent CPR. For a few minutes was down, apparently for about nearly 12-13 minutes and then brought to the ICU intubated. The patient is not on any pressors at this time. It was apparently his desire not to be intubated and did not wish to have any life support, so the family is considering a terminal wean. However, from a cardiac standpoint, his prognosis remains poor. I have no specific suggestions. An echo was performed here at bedside, ejection fraction is less than 15% with a global decrease in contractility. His blood pressure is about 110 systolic, heart rate is 84 sinus, JVD is 1 to 2 cm, S1, S2 heard, short systolic murmur. Lungs revealed ventilator assisted breath sounds. Central nervous system assessment was not performed. Prognosis remains poor and comfort care/sternal wean efforts are in progress. RICKIL / ELAINEN: [id number] /
--- NOTE | 2022-05-02 10:55 | CA ---
Transthoracic Echo Report Name: Jabier Mitchell Age: 67 Gender: M : 1955 Exam Date: 05/02/2022 08:11 Exam Location: [facility] Ht (in): 60 Wt (lb): 244 Ordering Physician: Yasemin Natarajan MD Attending/Referring Phys: Drug Inspector Syeda Alvarez RDCS Procedure CPT: Indications: chf Cardiac Hx: Limited Echo PT No Code. Technical Quality: Contrast 1: Total Dose (mL): Contrast 2: Total Dose (mL): MEASUREMENTS (Male / Female) Normal Values FINDINGS Left Ventricle Left ventricular ejection fraction is estimated at 15-20%. Right Ventricle Right Atrium Left Atrium Mitral Valve Mild mitral regurgitation. Aortic Valve Trileaflet aortic valve. Tricuspid Valve Structurally normal tricuspid valve. Moderate tricuspid regurgitation. Pulmonic Valve Structurally normal pulmonic valve. Pericardium Aorta CONCLUSIONS Limited echo. Severely impaired left ventricle systolic function with globally hypokinesis Previewed by: Dr. Finn Martino MD (Electronically Signed) Final Date: 02 May 2022 10:54
[2022-05-02 11:49] VITALS: BMI 35.0
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
[2022-05-02 12:20] VITALS: TEMP 97.2
[2022-05-02] MEDS ORDERED: MORPHINE SULFATE 4 MG/ML SYRINGE IV PRN (14:27)
[2022-05-02] MEDS ORDERED: LORazepam 2 MG/ML INJ IV PRN (14:27)
[2022-05-02] MEDS ORDERED: ATROPINE OPHTH SOLN 1% 5ML BTL SUBLINGUAL PRN (14:27)
[2022-05-02] MEDS ORDERED: GLYCOPYRROLATE 0.2 MG/ML 2 ML VIAL IVP PRN (14:27)
[2022-05-02] MEDS ORDERED: MORPHINE SULFATE 2 MG/ML SYRINGE IV PRN (14:27)
[2022-05-02] MEDS ORDERED: MORPHINE SULFATE (100 MG/2 ML) 100 MG in SODIUM CHLORIDE 0.9% 100 ML IV SCH (14:30)
[2022-05-02] MEDS ORDERED: SCOPOLAMINE 1 MG/72 HR PATCH TRANSDERM SCH (15:00)
--- NOTE | 2022-05-02 15:31 | CDI ---
Documentation Clarification Form Date: 05/02/2022 03:10:32 PM From: Aurelia Nieves RN CCDS Admit Date: 05/01/2022 05:14:00 PM Patient Name: Jabier Mitchell Visit Number: [id number] Discharge Date: ATTENTION: The Clinical Documentation Specialists (CDI) and [facility] Coding Staff appreciate your assistance in clarifying documentation. Please respond to the clarification below the line at the bottom and electronically sign. The CDI & [facility] Coding staff will review the response and follow-up if needed. Please note: Queries are made part of the Legal Health Record. If you have any questions, please contact the author of this message via ITS. Dr. Yasemin Natarajan Your patient is receiving the following: BiPAP,05/01. Please clarify what condition/diagnosis is being treated. History/Risk Factors: 67-year-old male presents to the ED via EMS with increased shortness of breath, per EMS upon arrival patient was oxygenating in the 60s. Medical history: CHF, DM and DVT. Clinical indicators: 05/01, 13:02; RR 26; SpO2 88% BiPAP FiO2 100 05/01, 14:29; RR 24; SpO2 95% BiPAP FiO2 50 05/01, 16:30; RR 24; SpO2 99% BiPAP FiO2 50 05/01, 18:00; RR 20; SpO2 90% 6L nasal cannula CXR, 05/01: Hypoventilatory changes. Cardiomegaly with periphilar and mid and lower lung airspace opacity. Mild patchy edema. Lung assessment, H&P 05/01: Bilateral scattered rhonchi Treatment: BiPAP and IV Lasix What diagnosis are you treating with BiPAP? [ ] Acute Respiratory Failure [ ] No additional diagnosis [ ] Other, please specify [ ] Unable to determine (Template Last Reviewed: June 2020) Acute Respiratory Failure MTDD
[2022-05-02 17:06] VITALS: BP 95/65; PULSE 95; RESP 14
--- NOTE | 2022-05-03 01:24 | PN ---
PROGRESS NOTE DATE OF SERVICE: 05/02/2022 SUBJECTIVE: This is a 67-year-old gentleman admitted with significant CHF acute exacerbation, had a cardiac arrest yesterday. The patient underwent CPR and mechanical intubation. The patient was monitored in ICU at this time. Multiple consultants following the patient closely. The patient was given Lasix, creatinine is 1.9. PAST MEDICAL HISTORY: Reviewed. REVIEW OF SYSTEMS: Could not be taken. The patient is sedated. CURRENT MEDICATIONS: Reviewed include Lasix, the rest of the medications noted. PHYSICAL EXAMINATION: VITAL SIGNS: Pulse is 90, blood pressure 123/80, respirations 23. HEENT: Conjunctivae normal. NECK: No JVD. CARDIOVASCULAR: S1, S2. RESPIRATIONS: Breath sounds diminished at the bases. Scattered rhonchi and crackles. ABDOMEN: Soft, obese. LEGS: No edema. NERVOUS SYSTEM: The patient is sedated. SKIN: No ulcer, rash, bleeding. JOINTS: No active deforming arthropathy. LABS: Reviewed. X-ray reviewed. ASSESSMENT: 1. Congestive heart failure acute exacerbation. 2. Status post cardiopulmonary arrest and acute hypoxic respiratory failure on mechanical ventilation. 3. History of coronary artery disease. 4. Diabetes mellitus, type 2. 5. History of deep venous thrombosis. 6. Hypertension. 7. Hyperlipidemia. 8. Multiple medical issues. 9. No code. RECOMMENDATIONS AND DISCUSSION: In this 67-year-old gentleman who presented with multiple complex medical issues at this time. The patient initially had significant CHF, but subsequently the patient had cardiac arrest and the patient on mechanical ventilation. The patient also had episodes of pulseless electrical activity, but apparently the patient is no code and does not wish to proceed with mechanical ventilation. I would recommend the patient to follow with Dr. Tian, who recommended terminal weaning at this time. We will continue to monitor and discussed with staff. See orders for further details. Prognosis guarded. Further recommendations to follow. MMODL / IJN: [id number] /
--- NOTE | 2022-05-03 07:48 | CDI ---
Documentation Clarification Form Date: 05/03/2022 07:33:38 AM From: Aurelia Nieves RN CCDS Admit Date: 05/01/2022 05:14:00 PM Patient Name: Jabier Mitchell Visit Number: [id number] Discharge Date: 05/02/2022 10:51:00 PM ATTENTION: The Clinical Documentation Specialists (CDI) and [facility] Coding Staff appreciate your assistance in clarifying documentation. Please respond to the clarification below the line at the bottom and electronically sign. The CDI & [facility] Coding staff will review the response and follow-up if needed. Please note: Queries are made part of the Legal Health Record. If you have any questions, please contact the author of this message via ITS. Dr. Yasemin Natarajan Your patient has the documented diagnosis of unspecified CHF 05/02, Medicine note. Additional information regarding the type of CHF is requested. History/Risk Factors:67-year-old male presents to the ED with increased shortness of breath with bilateral leg swelling. Medical History CHF, DM and ventricular dysfunction. 05/01, H&P. Clinical Indicators: VS/Pulse OX: 05/01 B/P 123/97; HR 97; Temp 97.6 F Oral; RR 26; SpO2 88% BiPAP BNP: 05/01 62455 Echocardiogram Results:05/02 EF 15-20%, Severely impaired left ventricle systolic function with globally hypokinesis Chest X Ray: 05/01 Hypoventilatory changes. Cardiomegaly with perihilar and mid and lower lung airspace opacity. Mild patchy pulmonary edema. Treatment: 05/01 Lasix 80mg IV x 1; 05/01 Lasix 40mg IV x 1; 05/01 Zaroxolyn 2.5mg PO x 1; In your professional opinion, can you please clarify the type of CHF if known? [ ] Acute on Chronic Systolic Heart Failure (reduced EF) [ ] Other, please specify [ ] Unable to determine (Template Last Revised: June 2020) Acute on Chronic Systolic Heart Failure (reduced EF) MTDD
--- NOTE | 2022-05-06 18:57 | DS ---
DISCHARGE SUMMARY PRELIMINARY CAUSE OF : Congestive heart failure acute exacerbation. OTHER DIAGNOSES: 1. Status post cardiopulmonary arrest, acute hypoxic respiratory failure on mechanical ventilation. 2. History of coronary artery disease. 3. Diabetes, type 2. 4. History of deep venous thrombosis. 5. Hypertension. 6. Hyperlipidemia. 7. Multiple medications. 8. No code. HISTORY OF PRESENT ILLNESS: This is a 67-year-old gentleman with a past medical history of multiple medical problems, admitted with significant CHF acute exacerbation. The patient was given diuretics. The patient suffered a cardiopulmonary arrest. The patient is mechanically intubated and Dr. Tian saw the patient during the hospitalization in the ICU. Please refer to Dr. Tian's notes for further information. Apparently, the patient is NO CODE, and subsequently the patient was terminally weaned, and subsequently the patient because of the multiple complex medical issues. See Dr. Tian's notes and ER notes and staff notes for further information. The prognosis remained extremely guarded throughout the hospitalization. MMODL / IJN: [id number] /
--- NOTE | 2022-05-11 13:51 | CDI ---
Documentation Clarification Form Date: 05/11/2022 1:11:19 PM From: Desirae Pastrana RN, CCDS Email: [email or web address] Admit Date: 05/01/2022 5:14:00 PM Patient Name: Jabier Mitchell Visit Number: [id number] Discharge Date: 05/02/2022 10:51:00 PM ATTENTION: The Clinical Documentation Specialists (CDI) and [facility] Coding Staff appreciate your assistance in clarifying documentation. Please respond to the clarification below the line at the bottom and electronically sign. The CDI & [facility] Coding staff will review the response and follow-up if needed. Please note: Queries are made part of the Legal Health Record. If you have any questions, please contact the author of this message via ITS. Dr. Yasemin Natarajan Your patient had an elevated Creatinine on 05/02 from baseline admission level. Based on this information and the findings below, is there an additional diagnosis that is clinically appropriate for this patient? Patient history/risk factors: CAD, diabetes mellitus, CHF, CKD stage 3. Admitted with CHF exacerbation and pulmonary edema. S/P cardiac arrest in the ED with ROSC. Transfer to ICU on the ventilator. Clinical Indicators: 05/02 IM: "The patient was given Lasix, creatinine is 1.9." 05/02 Consult: "Post void residual suggested urinary retention. An abdominal/pelvis CT was performed and revealed massive abdominal ascites fluid, catheters within the bladder." 05/01 labs: Cr 1.58 BUN 38 GFR 44 05/02 labs: Cr 1.90 BUN 42 GFR 35 Treatment: IV Lasix 80mg on 05/01. IV Lasix 40mg on 05/02. Rivera catheter. Is there an additional diagnosis that is clinically appropriate for this patient? [ x ] Acute kidney injury [ ] CKD only [ ] Other, please specify [ ] Unable to determine MTDD
== END 2022-05-02 22:51 | disposition expired | DRG 291 ==
LOC: EC 13:01 → 3SCARD 17:14 → 2SICU 05-02 01:15
PROVIDERS: ADMIT Hospitalist; ATTEND Hospitalist
PROC: 5A1935Z Respiratory Ventilation, Less than 24 Consecutive Hours (ICD-10-PCS; principal; 2022-05-01)
PROC: 0BH17EZ Insertion of Endotracheal Airway into Trachea, Via Natural or Artificial Opening (ICD-10-PCS; 2022-05-01)
DX: I13.0 Hypertensive heart and chronic kidney disease with heart failure and stage 1 through stage 4 chronic kidney disease, or unspecified chronic kidney disease (principal); I50.23 Acute on chronic systolic (congestive) heart failure; J96.01 Acute respiratory failure with hypoxia; N17.9 Acute kidney failure, unspecified; I46.9 Cardiac arrest, cause unspecified; E78.5 Hyperlipidemia, unspecified; Z66 Do not resuscitate; N18.30 Chronic kidney disease, stage 3 unspecified; E11.22 Type 2 diabetes mellitus with diabetic chronic kidney disease; N40.0 Benign prostatic hyperplasia without lower urinary tract symptoms; Z79.4 Long term (current) use of insulin; I25.5 Ischemic cardiomyopathy; K76.0 Fatty (change of) liver, not elsewhere classified; L30.9 Dermatitis, unspecified; Z51.5 Encounter for palliative care
CPT/HCPCS: 36415; 36600; 51702; 51798; 71045; 74176; 80048; 80053; 82805; 83605; 83735; 83880; 84484; 85025; 85610; 85730; 87070; 87205; 92950; 93005; 93306; 94002; 94660; 96365; 96366; 96374; 96376; 99291